=== PATIENT | male | born 1960 | race Caucasian/White ===

== ENCOUNTER → 2017-04-24 08:02 | Outpatient (CLI) | payer MEDICAID, SELFPAY ==
--- NOTE | 2017-04-24 08:05 | US_ITS ---
STUDY: SCROTUM ULTRASOUND REASON FOR EXAM: Male, 56 years old. Hydrocele. TECHNIQUE: Ultrasound evaluation of the scrotum was performed with color Doppler and static piña-scale imaging. COMPARISON: None. FINDINGS: RIGHT TESTICLE INTRATESTICULAR: There is a normal size of the right testicle. The right testicle measures 4.3 cm x 2.6 x 2.8 cm. There is a homogenous echotexture. There is normal arterial and normal venous vascularity. There is no demonstrated right testicular mass or cyst. EXTRATESTICULAR: The epididymis is normal in size. The epididymis head measures 1.3 cm x 0.7 cm x 0.8 cm. There is normal vascularity of the epididymis. There is no demonstrated epididymal cystic structure. There is a large hydrocele. There is no demonstrated varicocele. There is no demonstrated extratesticular mass or cyst. LEFT TESTICLE INTRATESTICULAR: There is a normal size of the left testicle. The left testicle measures 4.8 cm x 3.5 cm x 3.1 cm. There is a heterogeneous echotexture. There is normal arterial and normal venous vascularity. There is no demonstrated left testicular mass or cyst. EXTRATESTICULAR: The epididymis is normal in size. The epididymis head measures 1.8 cm x 1.5 signed by 1.5 cm. There is normal vascularity of the epididymis. There is no demonstrated epididymal cystic structure. There is a small hydrocele. There is no demonstrated varicocele. There is no demonstrated extratesticular mass or cyst. US/Testicular with Arterial Flow IMPRESSION: Large right hydrocele. Borderline enlargement of the left epididymis. Mild heterogeneous echotexture of the left testicle. Electronically Signed: Matthew Hartley MD at 15:14 EST Tel [phone], Service support ,
--- NOTE | 2017-04-24 08:05 | US_ITS ---
STUDY: RENAL ULTRASOUND - COMPLETE REASON FOR EXAM: Male, 56 years old. Gross hematuria. TECHNIQUE: Ultrasound evaluation of the kidneys was performed with real-time and static adan-scale imaging. COMPARISON: None. FINDINGS: RIGHT KIDNEY: Normal location of the right kidney, which is normal in size. The right kidney measures 9.2 cm x 5.2 cm x 4.8 cm. There is a normal cortex of the right kidney. The renal cortex measures 1.2 cm. There is a 3.4 cm x 3 cm x 3.4 cm lobulation along the lateral aspect of the right kidney. Correlation with a CT scan is recommended to rule out a neoplastic process. There are no right renal calculi. There is no right hydronephrosis. DISTAL RIGHT URETER: There is non-visualization of the distal right ureter. There is no demonstrated right ureterovesical junction calculus. There is a visualized right ureteral jet. LEFT KIDNEY: Normal location of the left kidney, which is normal in size. The left kidney measures 10.2 cm x 4.7 cm x 6.2 cm. There is a normal cortex of the left kidney. The renal cortex measures 1.8 cm. There is a 9 mm x 6 mm x 8 mm cyst in the midportion. There are no left renal calculi. There is no left hydronephrosis. DISTAL LEFT URETER: There is non-visualization of the distal left ureter. There is no demonstrated left ureterovesical junction calculus. There is no demonstrated left ureteral jet. BLADDER: The distended urinary bladder has a volume of 303 ml. Mild degree of bladder wall thickening measuring 4 mm. There is no demonstrated mass within the urinary bladder. There are no demonstrated bladder calculi. Is evidence of trabeculations along the posterior aspect of the bladder. US/Kidney and Bladder IMPRESSION: 3.4 cm x 3 cm x 3.4 cm lobulated mass along the lateral aspect of the right kidney. Correlation with the CT scans recommended. Bladder wall thickening with trabeculations at the base of the bladder. Electronically Signed: Matthew Hartley MD at 15:06 EST Tel [phone], Service support ,
== END ==
PROVIDERS: Family Provider Family Medicine; PCP Family Medicine; Visit Provider Nurse Practitioner Adult Health
DX: R31.0 Gross hematuria (principal); N43.3 Hydrocele, unspecified
CPT/HCPCS: 76770; 76870; 93976

== ENCOUNTER → 2017-05-07 07:35 | Outpatient (CLI) | payer MEDICAID, SELFPAY ==
--- NOTE | 2017-05-07 07:45 | CT_ITS ---
STUDY: CT ABDOMEN AND PELVIS WITH AND WITHOUT CONTRAST REASON FOR EXAM: Male, 56 years old. Right renal mass on ultrasound RADIATION DOSAGE (If Supplied By Facility): CTDIvol = ( 12.83 ) mGy, DLP = ( 1733.10 ) mGycm TECHNIQUE: Transaxial images were obtained from the dome of the diaphragm to the symphysis pubis without oral contrast. 100 ml of Isovue 300 contrast was administered. Sagittal and coronal images were reconstructed. Individualized dose optimization techniques were used for this CT. COMPARISON: Ultrasound dated 04/24/2017. FINDINGS: This study is limited by patient motion. The visualized lung bases are unremarkable. The visualized portions of the heart are within normal limits. The liver, spleen, pancreas and adrenal glands are within normal limits. There are no urinary calculi. There is no hydronephrosis. There is symmetric enhancement and excretion noted in the kidneys following contrast administration. There are no focal renal lesions. There is scarring in the right kidney which creates a lobulated contour and likely simulated a mass on ultrasound. There is no bowel obstruction or inflammation. There is marked constipation and fecal impaction noted in the colon and rectal vault. The urinary bladder is distended with a thickened, trabeculated wall. This may be due to bladder outlet obstruction. The prostate is enlarged, measuring 5.3 x 4.8 cm. There is no abdominal or pelvic free air, free fluid or lymphadenopathy. There are no calcified gallstones present. The aorta is normal in caliber. There are no destructive osseous lesions. CT/CT Abd/Pelvis W/WO Contrast IMPRESSION: No urinary calculi. No hydronephrosis. No renal masses. Scarring in the right kidney which creates a lobulated contour and likely simulated a mass on ultrasound. Distended urinary bladder with a thickened trabeculated wall. This may be due to bladder outlet obstruction. Enlarged prostate. Marked constipation and fecal impaction. Electronically Signed: Ad Palacio, at 18:29 EST Tel , Service support ,
== END ==
PROVIDERS: Family Provider Family Medicine; PCP Family Medicine; Visit Provider Urology
DX: N28.89 Other specified disorders of kidney and ureter (principal)
CPT/HCPCS: 74178; Q9967

== ENCOUNTER 2017-06-06 05:20 | Day surgery (SDC) | payer MEDICAID, SELFPAY ==
[2017-06-06] VITALS (7 sets, daily range): BP systolic 108–117; BP diastolic 44–83; PULSE 60–75; RESP 16–18; TEMP 36.4–37; O2SAT 92–100; BMI 21.6
[2017-06-06] MEDS: Bupivacaine Mpf 0.5% 30 ML VIAL (06:58)
[2017-06-06] MEDS: Cefazolin 2 GM in 0.9% Normal Saline 100 ML IV (07:11)
--- NOTE | 2017-06-06 07:15 | HYD_PTH ---
PATIENT: KIMMY OCHOA LOC: [facility] [place][id number] AGE/SX: 56/M ROOM: RE06/06/[address]: Dr. Prakash Ni MD : 1960 BED: DIS: 06/06/2017 SPEC #: [id number] RECD: 06/06/17 15:46 STATUS: ISIDRO CLARENCE #: [id number] NICKY: 06/06/17 07:[address]: Prakash Ni DEPT: SURGICAL PATHOLOGY RECD BY: Sandip Peoples ENTERED: 06/09/17 08:07 SP TYPE: HYDROCELE OTHR DR: Dr. Mani Balderas MD Tissues: HYDROCELE Procedures: Surgery Specimen Level II HEADER OPERATION: Hydrocelectomy PRE-OP DIAGNOSIS: Bilateral hydrocele TISSUE SUBMITTED: Bilateral hydrocele sacs MICROSCOPIC DIAGNOSIS Bilateral hydrocele sacs, hydrocelectomy: Fibrosis and mild chronic inflammation. Focal hyalinized nodule with associated dystrophic microcalcifications. AM:rg 4/10/18 MICROSCOPIC DESCRIPTION Slides are reviewed. GROSS DESCRIPTION Received in fixative is one container labeled with the patient's name and designated hydrocele sac, bilateral. The specimen consists of three variable sized pieces of alvarez, indurated tissue. The largest piece measures 11 x 4 x 1 cm and the two smaller pieces measure in aggregate 2.5 x 2 x 0.5 cm. No mass lesion is identified. Adjunct Professor [employer] sections are submitted in two cassettes as follows: 1 ? largest piece, 2 ? smaller pieces. / DICKSON:janeth 06/09/17 TC:5 CPT: 40095
--- NOTE | 2017-06-06 07:19 | PCM.DC.URO ---
Discharge Diet: Light diet - advance as tolerated Discharge Activity: Return to Normal Activity Call your doctor if your incision/area has: Continuous Slow Oozing, Sudden Increased Bleeding, Increased Pain/ Swelling, Increased Redness, Foul Smelling Discharge, Swelling at the incision site Instructions: Hydrocele Surgery (Hydrocelectomy) Additional Instructions: drain JPs if full. Allergies/Adverse Reactions: Allergies ciprofloxacin [From Cipro] Adverse Reaction (Verified 11/12/15 19:37) Hives codeine Adverse Reaction (Verified 11/12/15 19:37) Hives Penicillins Adverse Reaction (Verified 11/12/15 19:37) Hives sulfamethoxazole [From Bactrim] Adverse Reaction (Verified 11/12/15 19:37) Hives trimethoprim [From Bactrim] Adverse Reaction (Verified 11/12/15 19:37) Hives Medications to take at Discharge Acetaminophen [Tylenol] 650 mg PO Q4H PRN 05/26/17 Albuterol Aerosols [Ventolin Aerosols] 2.5 mg INHALATION Q6H PRN PRN 05/26/17 Aripiprazole [Abilify] 5 mg PO QHS 05/26/17 Benzocaine/Menthol [Cepacol Sore Throat Lozenge] 1 lozenge BUCCAL PRN PRN 05/26/17 Benztropine Mesylate 0.5 mg PO DAILY 05/26/17 Bisacodyl [Dulcolax] 10 mg RECTAL DAILY PRN PRN 05/26/17 Calcium Carbonate/Vitamin D3 [Calcium 600-Vit D3 200 Tablet] 1 each PO BID 05/26/17 Divalproex Sodium [Depakote Sprinkle] 500 mg PO BID 05/26/17 Docusate Sodium [Colace] 100 mg PO DAILY 05/26/17 Dulcolax 5 mg PO PRN PRN 05/26/17 Ferrous Sulfate [Iron] 325 mg PO BID 05/26/17 Fludrocortisone Acetate [Florinef] 0.1 mg PO DAILY@0800 05/26/17 Guaifenesin [Robitussin] 10 ml PO Q4H PRN PRN 05/26/17 Haloperidol [Haldol] 3 mg PO TID 05/26/17 [place] Carbonate [[place] Carbonate ER] 300 mg PO BID 05/26/17 Loperamide [Imodium] 2 mg PO Q8H PRN 05/26/17 Lorazepam [Ativan] 0.5 mg PO TID 05/26/17 Mag Hydrox/Al Hydrox/Simeth [Mylanta II] 30 ml PO Q4H PRN PRN 05/26/17 Magnesium Hydroxide [Milk Of Magnesia] 30 ml PO DAILY PRN PRN 05/26/17 Melatonin/Pyridoxine HCl (B6) [Melatonin 3 mg Tablet] 1 each PO QHS 05/26/17 Polyethylene Glycol 3350 [Miralax] 17 gm PO DAILY 05/26/17 Tamsulosin HCl [Flomax] 0.4 mg PO DAILY 05/26/17 Primary Care Physician: Mikhail Balderas [Primary Care Provider] - Please Follow Up With: Prakash Ni MD When: Appt Next at 3pm to d/c drains.
--- NOTE | 2017-06-06 08:08 | PCM.OPRPT ---
Report of Operation Date of Procedure: 06/06/17 Pre-Operative Diagnosis: Bilateral large hydroceles and gross hematuria Post-Operative Diagnosis: Same Surgery/Procedure Performed:: Bilateral hydrocelectomy and diagnostic cystoscopy Description of Surgical Findings:: 56-year-old male taken back to the operating room at the smooth induction of general anesthesia he was placed supine on the table the testicles were prepped and draped in usual sterile fashion made a midline incision in the midline raphae of the testicle scrotal area, infiltrated the skin with Marcaine. After making an incision dissected down to the right testicle which is quite large had a very large hydrocele a lot of scar tissue around the hydrocele this was dissected free and delivered completely I then opened up the hydrocele and large large amount of fluid was removed from the hydrocele sac the sac was then excised from the testicle circumferentially all the way around the sac was attached to the testicle at the junction of the epididymis all the way around. Testicle itself looked normal the epididymis is slightly engorged the hydrocele sac was excised and then oversew the edges all the way around with chromic stitches. Then placed the testicle back into the scrotal sac I then opened up the left testicle and had a large hydrocele again but not quite as big this was opened up hydrocele sac was excised did not oversew the edges here because of was not as big as a ridge as the right side. I then made a puncture and incision in the top part of the right hemiscrotum and placed a drain into the right side of the testicle circumferentially around the testicle drains are draining the excess fluid and then I made a puncture about the left hemiscrotum place another DONA drain around the left testicle region then inspected cauterize all bleeding obtained good hemostasis closed the incision with 3 oh chromics and the first layer to reapproximate the dartos layer and then closed the skin with 4-0 chromic. We then prepped and draped the penis in usual sterile fashion went into the bladder with a cystoscope the entire length of the urethra was normal he did have a traumatic hypospadias past the sphincter had the Rocio and then had a wide open channel from the veru into the bladder appeared to have had a prior transurethral resection of the prostate had an open channel from the verumontanum into the bladder neck inside the bladder some debris no stones or tumors are seen difficult to identify the left or right ureteral orifice because of the trabeculation within the bladder and debris but no stones tumors or diverticuli were seen had an open channel. I then drained the bladder patient anesthetic was reversed plan to see him back next week to remove the drains. Type of Anesthesia:: General - 200 Drains: JPs x2 - Admit VTE Documentation VTE Present on Admission: No VTE Mechan Device Prophylaxis: SCD's VTE Pharm Prophylaxis ordered?: No Reason prophylaxis not ordered:: Treatment Not Indicated
== END 2017-06-06 12:29 | disposition home or self-care (01) ==
LOC: SDC 05:21 → AC 05:22
PROVIDERS: Family Provider Family Medicine; PCP Family Medicine; Visit Provider Urology
PROC: (CPT 52000; principal; 2017-06-06 07:00)
PROC: 0TJB8ZZ Inspection of Bladder, Via Natural or Artificial Opening Endoscopic (ICD-10-PCS; CPT 52000; 2017-06-06 07:00)
DX: N43.1 Infected hydrocele (principal); R31.0 Gross hematuria; N40.1 Benign prostatic hyperplasia with lower urinary tract symptoms; R32 Unspecified urinary incontinence; I10 Essential (primary) hypertension; J44.9 Chronic obstructive pulmonary disease, unspecified; G40.909 Epilepsy, unspecified, not intractable, without status epilepticus; D64.9 Anemia, unspecified; K21.9 Gastro-esophageal reflux disease without esophagitis; F25.9 Schizoaffective disorder, unspecified; R13.10 Dysphagia, unspecified; E27.1 Primary adrenocortical insufficiency; I73.9 Peripheral vascular disease, unspecified; F32.9 Major depressive disorder, single episode, unspecified; F41.9 Anxiety disorder, unspecified; Z72.0 Tobacco use; J45.20 Mild intermittent asthma, uncomplicated; Z91.81 History of falling
CPT/HCPCS: 52000; 55041; 86850; 86900; 88302; J7120; J2405

== ENCOUNTER → 2017-11-05 10:14 | Outpatient (CLI) | payer MEDICAID, SELFPAY | PROVIDERS: Family Provider Family Medicine; PCP Family Medicine; Visit Provider Nurse Practitioner Adult Health | DX: N50.89 Other specified disorders of the male genital organs (principal) | CPT/HCPCS: 76870; 93976 ==

== ENCOUNTER → 2021-06-05 | Outpatient (REF) | payer SELFPAY | END | disposition home or self-care (01) | LOC: OLS.AHA 04:25 | PROVIDERS: PCP Family Medicine; Visit Provider Family Medicine | DX: E72.20 Disorder of urea cycle metabolism, unspecified (principal); F20.9 Schizophrenia, unspecified; R33.9 Retention of urine, unspecified; Z79.899 Other long term (current) drug therapy | CPT/HCPCS: 82140 ==

== ENCOUNTER → 2021-09-06 | Outpatient (REF) | payer SELFPAY | END | disposition home or self-care (01) | LOC: OLS.AHA 08:33 | PROVIDERS: PCP Family Medicine; Referring Provider Family Medicine; Visit Provider Family Medicine | DX: E72.20 Disorder of urea cycle metabolism, unspecified (principal); D64.9 Anemia, unspecified; R33.9 Retention of urine, unspecified; Z79.899 Other long term (current) drug therapy | CPT/HCPCS: 82140 ==

== ENCOUNTER 2023-05-10 01:41 | Inpatient (IN) | payer MEDICAID, SELFPAY ==
[2023-05-10] VITALS (13 sets, daily range): BP systolic 99–152; BP diastolic 59–116; PULSE 60–98; RESP 18–27; TEMP 36.3–37.2; O2SAT 84–96; BMI 24.5; BMI 24.6
--- NOTE | 2023-05-10 01:55 | EKG12_ITS ---
Test Reason : SOB Blood Pressure : / mmHG Vent. Rate : 060 BPM Atrial Rate : 060 BPM P-R Int : 124 ms QRS Dur : 094 ms QT Int : 422 ms P-R-T Axes : 031 086 077 degrees QTc Int : 422 ms Normal sinus rhythm T wave abnormality, consider anterolateral ischemia Abnormal ECG Confirmed by Harsh Mckinney ([id number]), market editor YEIMY GIMENEZ ([id number]) on 05/13/2023 7:13:10 AM Referred By: Confirmed By:Harsh Mckinney
--- NOTE | 2023-05-10 01:55 | RAD_ITS ---
INDICATION: Cough, fever and hypoxia EXAMINATION: Frontal view of the chest COMPARISON: Chest x-ray November 12, 2015. FINDINGS: Frontal view of the chest was obtained. The cardiac silhouette is not enlarged. Opacities in the lower lobes bilaterally. No pneumothorax. RAD/Chest 1 View (Portable) IMPRESSION: Opacities in the lower lobes bilaterally may represent atelectasis, infection and/or aspiration. Electronically Signed: Darren Cotto MD at 4:24 EST ,
--- NOTE | 2023-05-10 02:03 | EDS_ITS ---
HPI History of Present Illness Chief Complaint: Shortness of Breath Detail of Chief Complaint: Fever, shortness of breath and hypoxia Informant: EMS and SNF Onset/Context/Timing Onset: - (Uncertain) Context: - (Unable to determine) Timing: Continuous Current Severity: Patient is using accessory muscles. Worsened by: - (Unable to determine) Relieved by: - (Nothing per senior living staff) Associated Symptoms cough and rhinorrhea Chest Pain: Positive for - (Unknown) Narrative Narrative: Patient is 62-year-old male who resides at nursing facility. He has history of COPD, schizophrenia, iron deficiency anemia who presents because of trouble breathing. He had a low pulse ox with a documented temperature of 100.9. Reportedly had a chest x-ray recently that was read as negative residence from that facility that he been seen in emergency room have been positive for influenza type B. PE Risk Factors: Positive for - (Unable to determine) Prior similar symptoms: No Recent Illness/Hospitalization: No PFSH PFSH Medical History (Updated 05/10/23 @ 03:[address] Jose Olvera MD) Adrenal insufficiency Anxiety and depression Asthma BPH (benign prostatic hyperplasia) Chronic anemia COPD (chronic obstructive pulmonary disease) Dementia Dysphagia GERD (gastroesophageal reflux disease) History of anoxic brain injury HLD (hyperlipidemia) HTN (hypertension) Hydrocele IBS (irritable bowel syndrome) Mood disorder Polyarthropathy Schizoaffective disorder Schizophrenia Seizure disorder Home Medications Dulcolax 5 mg PO PRN PRN Constipation 05/26/17 [History Last Taken Unknown] acetaminophen 325 mg tablet (Tylenol) 650 mg PO Q4H PRN Headache 05/26/17 [History Last Taken Unknown] albuterol sulfate 2.5 mg/3 mL (0.083 %) solution for nebulization 2.5 mg inhalation Q6H PRN PRN Sob &/Or Wheezing 05/26/17 [History Last Taken Unknown] aluminum-mag hydroxide-simethicone 400 mg-400 mg-40 mg/5 mL oral susp (Mag-Al Plus Extra Strength) 30 ml PO Q4H PRN PRN Indigestion 05/26/17 [History Last Taken Unknown] aripiprazole 5 mg tablet 5 mg PO QHS 05/26/17 [History Last Taken 06/05/17 20:45 1] benzocaine 15 mg-menthol 3.6 mg lozenges (Cepacol Sore Throat (benzocaine- menthol)) 1 blaire buccal PRN PRN Sore Throat 05/26/17 [History Last Taken Unknown] benztropine 1 mg tablet 0.5 mg PO DAILY 05/26/17 [History Last Taken Unknown] bisacodyl 10 mg rectal suppository 10 mg RECTAL DAILY PRN PRN Constipation 05/26/17 [History Last Taken Unknown] calcium carbonate 600 mg-vitamin D3 5 mcg (200 unit) tablet (Calcium 600 + D(3)) 1 ea PO BID 05/26/17 [History Last Taken 06/05/17 20:45 1] divalproex 125 mg capsule,delayed release sprinkle (Depakote Sprinkles) 500 mg PO BID 05/26/17 [History Last Taken 06/05/17 20:45 1] docusate sodium 100 mg capsule (DOK) 100 mg PO DAILY 05/26/17 [History Last Taken Unknown] ferrous sulfate 325 mg (65 mg iron) tablet (Iron (ferrous sulfate)) 325 mg PO BID 05/26/17 [History Last Taken Unknown] fludrocortisone 0.1 mg tablet 0.1 mg PO DAILY@0800 05/26/17 [History Last Taken Unknown] guaifenesin 100 mg/5 mL oral liquid 10 ml PO Q4H PRN PRN Cough 05/26/17 [History Last Taken Unknown] haloperidol 1 mg tablet 3 mg PO TID 05/26/17 [History Last Taken 06/05/17 20:45 1] lithium carbonate 300 mg tablet,extended release 300 mg PO BID 05/26/17 [History Last Taken 06/05/17 20:45 1] loperamide 2 mg capsule 2 mg PO Q8H PRN Diarrhea 05/26/17 [History Last Taken Unknown] lorazepam 0.5 mg tablet 0.5 mg PO TID 05/26/17 [History Last Taken 06/05/17 20:45 1] magnesium hydroxide 400 mg/5 mL oral suspension 30 ml PO DAILY PRN PRN Constipation 05/26/17 [History Last Taken Unknown] melatonin-pyridoxine HCl (vitamin B6) 3 mg-10 mg tablet 1 ea PO QHS 05/26/17 [History Last Taken Unknown] polyethylene glycol 3350 17 gram oral powder packet 17 g PO DAILY 05/26/17 [History Last Taken Unknown] tamsulosin 0.4 mg capsule (Flomax) 0.4 mg PO DAILY 05/26/17 [History Last Taken Unknown] doxycycline monohydrate 100 mg capsule 100 mg PO BID #20 caps 06/06/17 [Rx Last Taken Unknown] oxycodone-acetaminophen 5 mg-325 mg tablet 1 - 2 tab PO Q4H PRN PRN Pain 7 days #14 tabs 06/06/17 [Rx Last Taken Unknown] haloperidol lactate 5 mg/mL injection solution 5 mg IM Q3H PRN agitation 05/10/23 [History Last Taken Unknown] lorazepam 0.5 mg tablet (Ativan) 0.5 mg PO .q6hr PRN anxiety 05/10/23 [History Last Taken Unknown] Allergy/AdvReac Type Severity Reaction Status Date / Time ciprofloxacin [From Cipro] AdvReac Hives Verified 11/12/15 19:37 codeine AdvReac Hives Verified 11/12/15 19:37 Penicillins AdvReac Hives Verified 11/12/15 19:37 sulfamethoxazole AdvReac Hives Verified 11/12/15 19:37 [From Bactrim] trimethoprim [From Bactrim] AdvReac Hives Verified 11/12/15 19:37 Social History (Updated 05/10/23 @ 03:[address] Roxanne More MD) household members: none housing: senior living Smoking Status: Current every day smoker tobacco type: cigarettes alcohol intake: never substance use type: does not use ROS ROS ED Review of Systems ROS Unobtainable: due to mental condition and due to mental status EXAM Physical Exam Const Vital Signs: 05/10/23 01:44 05/10/23 01:48 05/10/23 02:09 Temperature 97.4 F L Temperature Source Temporal Pulse Rate 65 Respiratory Rate 27 H Respiratory Effort Respiratory Depth Respiratory Pattern Blood Pressure 108/59 L Blood Pressure Mean 75 Pulse Ox 84 94 Oxygen Delivery Method Room Air Nasal Cannula Room Air Oxygen Flow Rate (L/min) 4 05/10/23 02:10 05/10/23 02:12 05/10/23 02:16 Temperature Temperature Source Pulse Rate 60 Respiratory Rate 24 H Respiratory Effort Short of Breath Labored Pursed Lip Respiratory Depth Shallow Respiratory Pattern Tachypnea Tachypnea Blood Pressure Blood Pressure Mean Pulse Ox Oxygen Delivery Method Nasal Cannula Nasal Cannula Oxygen Flow Rate (L/min) 4 4 Positive well developed General Appearance ED: well developed and pallor; Negative for NAD HEENT Reports dry mucous membranes HEENT Narrative: Ears normal. Nares reveal mild congestion. Posterior pharynx unremarkable. atraumatic Mouth ED: Yes dry mucous membranes Mouth: dry mucous membranes Eyes PERRL and EOMs intact bilaterally General Eye ED: Negative for pale conjunctiva or scleral icterus Neck no lymphadenopathy, supple, no meningeal signs and no JVD Resp No normal respiratory effort and No clear to auscultation bilaterally Resp Narrative: Patient does have use of accessory muscles and mild intercostal retractions. Auscultation: rales bilateral base, wheezes expiratory wheezes and throughout and diminished lung sounds Cardio regular rhythm, S1 normal heart sound, S2 normal heart sound and no murmurs Rate: tachycardic GI non-tender, non-distended and no masses Auscultation: normoactive bowel sounds Palpation: soft Back/Spine no CVA tenderness Extremity Extremity Narrative: Fingers are tobacco staining. Question of mild clubbing. There is no acral cyanosis. He is presently on oxygen at 4 L. Neuro CN's II-XII intact bilaterally Neuro Narrative: Unable to determine patient's orientation. He does move all extremities. [place] Coma Scale: document GCS findings Spontaneous Obeys Commands Confused 14 Sensorium / Orientation: Negative for alert Skin no wounds General Skin Exam: pallor; Negative for jaundice MDM MDM MDM Narrative Medical decision making narrative: Unable to obtain history. Paperwork that accompanied him indicates he is DNR comfort care. Differential is COPD exacerbation due to viral illness versus bacterial. Will obtain chest x-ray to rule out pneumonia. CBC to assess white count differential and rule out anemia. Comprehensive metabolic panel to assess for endorgan dysfunction. Rapid COVID, RSV and influenza since other residents are positive for influenza. History & Record Review Additional record(s) reviewed:: Prior ED visit and Prior labs Lab Data Attestation: I reviewed the patient's lab results. Lab results narrative: Patient is neutropenic and anemic. Most recent blood work is 2015. He was neutropenic at that time as well. Platelet count is low. He has pancytopenia. Electrolyte panel is remarkable for BUN 21 creatinine 1.35. Prior creatinine was 0.9. Albumin is slightly diminished at 3.1. The neutropenia could be due to a viral infection i.e. COVID. Labs: Laboratory Results - last 24 hr 05/10/23 05/10/23 01:49 02:06 WBC 3.0 L RBC 3.30 L Hgb 9.9 L Hct 31.1 L MCV 94.2 H MCH 30.0 MCHC 31.8 L RDW Std Deviation 43.1 RDW Coeff of Eyal 12.5 Plt Count 88 L MPV 10.2 Immature Gran % (Auto) 0.300 Neut % (Auto) 65.0 Lymph % (Auto) 24.7 [place] % (Auto) 9.7 Eos % (Auto) 0.0 Baso % (Auto) 0.3 Absolute Neuts (auto) 2.0 Absolute Lymphs (auto) 0.74 L Nucleated RBC % 0 Sodium 139 Potassium 4.1 Chloride 107 Carbon Dioxide 29.0 Anion Gap 3 L BUN 21 H Creatinine 1.35 H Est GFR (MDRD) Af Amer 69 Est GFR (MDRD) Non-Af 57 L BUN/Creatinine Ratio 15.6 Glucose 99 Lactic Acid 0.6 Calcium 9.2 Total Bilirubin 0.30 AST 19 ALT 18 Alkaline Phosphatase 53 Total Protein 6.2 L Albumin 3.1 L Globulin 3.1 Albumin/Globulin Ratio 1.0 Radiography Chest X-Ray - ED: 1 View and Read by ED Physician (Cardiac size is normal. There is increased interstitial markings right lower lobe. Mediastinum is normal. Osseous structures are unremarkable. There is no recent comparison. There is independently reviewed interpreted by me at 0310.) EKG Initial EKG: Attestation: I personally reviewed and interpreted this EKG as follows: Interpretation: Sinus Rhythm (Rate is 60. Parables 124 ms. Cures duration 94 ms. QT duration 422 ms. There is flipped T waves anterior leads. There is no old for comparison.) Treatment and Re-Evaluation :: Since patient is hypoxic and tachypneic will require admission. Rapid antigen was positive for type A. Tamiflu was ordered. Discharge Plan Triage Chief Complaint: Shortness of Breath ED Provider: Jose Olvera Dx/Rx/DC Orders Clinical Impression: Right lower lobe pulmonary infiltrate, Acute hypoxic respiratory failure, Type A influenza, Acute bronchospasm, History of schizophrenia Prescriptions: No Action albuterol sulfate 2.5 MG/3 ML solution for nebulization 2.5 mg inhalation Q6H PRN PRN (Reason: Sob &/Or Wheezing) calcium carbonate-vitamin D3 [Calcium 600 + D(3)] 1 EACH tablet 1 ea PO BID lorazepam 0.5 MG tablet 0.5 mg PO TID bisacodyl 10 MG suppository 10 mg RECTAL DAILY PRN PRN (Reason: Constipation) benztropine 1 MG tablet 0.5 mg PO DAILY docusate sodium [DOK] 100 MG capsule 100 mg PO DAILY divalproex [Depakote Sprinkles] 125 MG capsule, delayed rel sprinkle 500 mg PO BID aripiprazole 5 MG tablet 5 mg PO QHS Cepacol Sore Throat (lisseth-men) 1 EACH lozenge 1 blaire buccal PRN PRN (Reason: Sore Throat) Dulcolax 5 mg PO PRN PRN (Reason: Constipation) acetaminophen [Tylenol] 325 MG tablet 650 mg PO Q4H PRN (Reason: Headache) loperamide 2 MG capsule 2 mg PO Q8H PRN (Reason: Diarrhea) polyethylene glycol 3350 17 GM powder in packet 17 g PO DAILY lithium carbonate 300 MG tablet extended release 300 mg PO BID haloperidol 1 MG tablet 3 mg PO TID guaifenesin 10 ML liquid 10 ml PO Q4H PRN PRN (Reason: Cough) magnesium hydroxide 30 ML suspension 30 ml PO DAILY PRN PRN (Reason: Constipation) tamsulosin [Flomax] 0.4 MG capsule 0.4 mg PO DAILY ferrous sulfate [Iron (ferrous sulfate)] 325 MG tablet 325 mg PO BID fludrocortisone 0.1 MG tablet 0.1 mg PO DAILY@0800 alum-mag hydroxide-simeth [Mag-Al Plus Extra Strength] 30 ML suspension 30 ml PO Q4H PRN PRN (Reason: Indigestion) melatonin-pyridoxine HCl (B6) 1 EACH tablet 1 ea PO QHS oxycodone-acetaminophen 1 TABLET tablet 1 - 2 tab PO Q4H PRN PRN (Reason: Pain) 7 Days Qty: 14 0RF doxycycline monohydrate 100 MG capsule 100 mg PO BID Qty: 20 0RF lorazepam [Ativan] 0.5 mg tablet 0.5 mg PO .q6hr PRN (Reason: anxiety) haloperidol lactate 5 mg/mL solution 5 mg IM Q3H PRN (Reason: agitation) Primary Care Provider: Mani Balderas Referrals: Sherrie,Mani, MD [Primary Care Provider] - Disposition Disposition: Acute Care Hospital [facility]
[2023-05-10 02:11] LABS: Absolute Lymphocyte Count 0.74 X10^3/uL (0.83-4.51); Basophil# 0.01 X10^3/uL; Basophil% 0.3 % (0-1); Hematocrit 31.1 % (40-54); Hemoglobin 9.9 g/dL (13.0-16.5); Lymphocyte # 0.74 X10^3/ul (0.83-4.51); Lymphocyte % 24.7 % (19-41); Mean Corp Hgb Conc 31.8 g/dL (32-36); Mean Corpuscular Volume 94.2 fL (80-94); Mean Platelet Vol. 10.2 fl (6.2-12.0); Monocyte# 0.29 X10^3/uL; Monocyte% 9.7 % (0-10); NRBC Flagged by Analyzer 0 % (0-5); Neutrophil # 1.95 X10^3/uL (2.7-7.7); POSITIVE COUNT YES; Platelet Count 88 K/mm3 (150-450); RBC Distribution Width CV 12.5 % (11.6-14.6); RBC Distribution Width SD 43.1 fl (35.1-43.9)
[2023-05-10] MEDS: Ipratropium/Albuterol Sulfate 3 ML AMPUL.NEB INHALATION (02:13)
[2023-05-10 02:16] LABS: Differential Indicated SCAN CRITERIA MET
[2023-05-10] MEDS: MethylPREDNISolone 125 MG/2 ML Vial IV (02:24)
[2023-05-10 02:27] LABS: AST(SGOT) 19 U/L (15-37); Alanine Aminotransfer ALT/SGPT 18 U/L (16-61); Albumin, Serum 3.1 g/dL (3.2-5.0); Alkaline Phosphatase 53 U/L (45-117); Anion Gap 3 (5-15); BUN 21 mg/dL (7-18); BUN/Creat Ratio 15.6 RATIO (10-20); Calcium,Total 9.2 mg/dL (8.5-10.1); Chloride 107 mmol/L (98-107); Creatinine, Serum 1.35 mg/dL (0.70-1.30); EST Glomerular Filtration Rate 57 mL/min (>60); Est Glom Filt Rate - Afr Amer 69 mL/min (>60); Globulin 3.1 g/dL (2.2-4.2); Glucose 99 mg/dL (74-106); Potassium 4.1 mmol/L (3.5-5.1); Protein, Total 6.2 g/dL (6.4-8.2); Sodium Level 139 mmol/L (136-145)
[2023-05-10] MEDS: Albuterol 2.5 MG/3 ML VIAL.NEB. INHALATION ×3 (02:30)
[2023-05-10 03:01] LABS: Lactic Acid 0.6 mmol/L (0.4-1.9)
--- NOTE | 2023-05-10 03:18 | HP.PCM.HOS_ITS ---
HPI - General General Date of Admission: 05/10/23 Date of Service: 05/10/23 Chief Complaint: Dyspnea, hypoxia, increased work of breathing, fever. HPI Narrative The patient is a 62 y/o M w/ PMHx: Tobacco use, Dementia unclear type with uncle ar behavioral disturbance history, IBS, Polyarthropathy, Hx Obstructive uropathy/BPH, Chronic oral dysphagia, Chronic anemia/iron deficiency anemia, Chronic Pancytopenia, Schizophrenia/Schizoaffective disorder/Anxiety and Depression/Mood disorder, COPD/Asthma, Seizure disorder, Adrenal insufficiency, Hx Anoxic brain injury, GERD, HTN, HLD who presents to the [facility] ED on 05/10/23 with history of onset over the last 24 hours fever, dyspnea, tachypnea with hypoxia noted at longterm facility with accessory muscle usage and temperature documented at facility 100.9 with recent reported chest x-ray that had been unremarkable and negative influenza/COVID/RSV testing also but given ongoing symptoms prompted referral to ED for evaluation. In the emergency room patient is alert and awake although evidence of mild respiratory distress but does not verbally communicate which suspect is his baseline. Workup in the ED included T97.4, heart rate 65, BP 108/59, respiratory rate 27, 84% on room air initially with improvement to 94% on 4 L nasal cannula, CBC with WBC 3.0, hemoglobin 9.9, MCV 94.2, platelets 88 with lymphopenia, CMP with BUN/creatinine 21/1.35, GFR 57, hepatic profile otherwise not marked appearing, lactic acid 0.6, blood culture x 2 pending per ED, rapid SARS COVID/influenza/RSV PCR with Influenza A, chest x-ray with increased interstitial markings right lower lobe with no co mparison available pending radiology read, EKG with sinus rhythm with flipped T waves anteriorly with no old EKG for comparison. In the ED patient ministered DuoNeb therapy, Tamiflu 75 mg p.o. x 1 as well as Solu-Medrol 125 mg IV x 1. [facility] Medical History (Updated 05/10/23 @ 03:[address] Jose Olvera MD) Adrenal insufficiency Anxiety and depression Asthma BPH (benign prostatic hyperplasia) Chronic anemia COPD (chronic obstructive pulmonary disease) Dementia Dysphagia GERD (gastroesophageal reflux disease) History of anoxic brain injury HLD (hyperlipidemia) HTN (hypertension) Hydrocele IBS (irritable bowel syndrome) Mood disorder Polyarthropathy Schizoaffective disorder Schizophrenia Seizure disorder Home Medications Dulcolax 5 mg PO PRN PRN Constipation 05/26/17 [History Last Taken Unknown] acetaminophen 325 mg tablet (Tylenol) 650 mg PO Q4H PRN Headache 05/26/17 [History Last Taken Unknown] albuterol sulfate 2.5 mg/3 mL (0.083 %) solution for nebulization 2.5 mg inhalation Q6H PRN PRN Sob &/Or Wheezing 05/26/17 [History Last Taken Unknown] aluminum-mag hydroxide-simethicone 400 mg-400 mg-40 mg/5 mL oral susp (Mag-Al Plus Extra Strength) 30 ml PO Q4H PRN PRN Indigestion 05/26/17 [History Last Taken Unknown] aripiprazole 5 mg tablet 5 mg PO QHS 05/26/17 [History Last Taken 06/05/17 20:45 1] benzocaine 15 mg-menthol 3.6 mg lozenges (Cepacol Sore Throat (benzocaine- menthol)) 1 blaire buccal PRN PRN Sore Throat 05/26/17 [History Last Taken Unknown] benztropine 1 mg tablet 0.5 mg PO DAILY 05/26/17 [History Last Taken Unknown] bisacodyl 10 mg rectal suppository 10 mg RECTAL DAILY PRN PRN Constipation 05/26/17 [History Last Taken Unknown] calcium carbonate 600 mg-vitamin D3 5 mcg (200 unit) tablet (Calcium 600 + D(3)) 1 ea PO BID 05/26/17 [History Last Taken 06/05/17 20:45 1] divalproex 125 mg capsule,delayed release sprinkle (Depakote Sprinkles) 500 mg PO BID 05/26/17 [History Last Taken 06/05/17 20:45 1] docusate sodium 100 mg capsule (DOK) 100 mg PO DAILY 05/26/17 [History Last Taken Unknown] ferrous sulfate 325 mg (65 mg iron) tablet (Iron (ferrous sulfate)) 325 mg PO BID 05/26/17 [History Last Taken Unknown] fludrocortisone 0.1 mg tablet 0.1 mg PO DAILY@0800 05/26/17 [History Last Taken Unknown] guaifenesin 100 mg/5 mL oral liquid 10 ml PO Q4H PRN PRN Cough 05/26/17 [History Last Taken Unknown] haloperidol 1 mg tablet 3 mg PO TID 05/26/17 [History Last Taken 06/05/17 20:45 1] lithium carbonate 300 mg tablet,extended release 300 mg PO BID 05/26/17 [History Last Taken 06/05/17 20:45 1] loperamide 2 mg capsule 2 mg PO Q8H PRN Diarrhea 05/26/17 [History Last Taken Unknown] lorazepam 0.5 mg tablet 0.5 mg PO TID 05/26/17 [History Last Taken 06/05/17 20:45 1] magnesium hydroxide 400 mg/5 mL oral suspension 30 ml PO DAILY PRN PRN Constipation 05/26/17 [History Last Taken Unknown] melatonin-pyridoxine HCl (vitamin B6) 3 mg-10 mg tablet 1 ea PO QHS 05/26/17 [History Last Taken Unknown] polyethylene glycol 3350 17 gram oral powder packet 17 g PO DAILY 05/26/17 [History Last Taken Unknown] tamsulosin 0.4 mg capsule (Flomax) 0.4 mg PO DAILY 05/26/17 [History Last Taken Unknown] doxycycline monohydrate 100 mg capsule 100 mg PO BID #20 caps 06/06/17 [Rx Last Taken Unknown] oxycodone-acetaminophen 5 mg-325 mg tablet 1 - 2 tab PO Q4H PRN PRN Pain 7 days #14 tabs 06/06/17 [Rx Last Taken Unknown] haloperidol lactate 5 mg/mL injection solution 5 mg IM Q3H PRN agitation 05/10/23 [History Last Taken Unknown] lorazepam 0.5 mg tablet (Ativan) 0.5 mg PO .q6hr PRN anxiety 05/10/23 [History Last Taken Unknown] Allergy/AdvReac Type Severity Reaction Status Date / Time ciprofloxacin [From Cipro] AdvReac Hives Verified 11/12/15 19:37 codeine AdvReac Hives Verified 11/12/15 19:37 Penicillins AdvReac Hives Verified 11/12/15 19:37 sulfamethoxazole AdvReac Hives Verified 11/12/15 19:37 [From Bactrim] trimethoprim [From Bactrim] AdvReac Hives Verified 11/12/15 19:37 Social History (Updated 03/09/24 @ 03:[address] Roxanne More MD) household members: none housing: care home Smoking Status: Current every day smoker tobacco type: cigarettes alcohol intake: never substance use type: does not use ROS Review of Systems ROS Unobtainable: due to mental status Vital Signs Vital Signs Vital Signs: 05/10/23 01:44 05/10/23 01:48 05/10/23 02:09 Temperature 97.4 F L Temperature Source Temporal Pulse Rate 65 Respiratory Rate 27 H Respiratory Effort Respiratory Depth Respiratory Pattern Blood Pressure 108/59 L Blood Pressure Mean 75 Pulse Ox 84 94 Oxygen Delivery Method Room Air Nasal Cannula Room Air Oxygen Flow Rate (L/min) 4 05/10/23 02:10 05/10/23 02:12 05/10/23 02:16 Temperature Temperature Source Pulse Rate 60 Respiratory Rate 24 H Respiratory Effort Short of Breath Labored Pursed Lip Respiratory Depth Shallow Respiratory Pattern Tachypnea Tachypnea Blood Pressure Blood Pressure Mean Pulse Ox Oxygen Delivery Method Nasal Cannula Nasal Cannula Oxygen Flow Rate (L/min) 4 4 Physical Exam Narrative Physical Examination: General: Awake, appears alert but nonverbal, unable to answer any orientation questions, suspect this is at baseline, remains primarily cooperative but not able to follow most commands but suspect this is chronic, seated upright in the ED bed, fatigued and ill-appearing, ongoing increased respiratory rate with some accessory muscle usage noted. Skin: Normal color, normal turgor, no icterus, no cyanosis except for occasional staged ecchymoses, abrasion. HEENT: AT/NC, EOMI, PERRLA, dry MM, evident congestion, no carotid bruits or JVD noted. Lungs: Significantly diminished, tight, increased respiratory rate with accessory muscle usage evident, mild distress, rales noted, currently no wheezing but ED physician had noted significant wheezing prior although patient is status post aerosol treatments thus certainly could have improved. Heart: Currently regular rate and rhythm; no gallop, rub audible. Abdomen: Soft, NTTP, ND, mildly hyperactive BS, no appreciated HSM. Extremities: No cyanosis, clubbing, or edema, somewhat difficult evaluation as patient is tucking his legs under him and suspect this is a chronic positioning of his. Neurological: Awake, appears alert but nonverbal, unable to answer any orientation questions, suspect this is at baseline, remains primarily cooperative but not able to follow most commands but suspect this is chronic, seated upright in the ED bed, fatigued and ill-appearing, unclear exact baseline cognitive status but suspect he is nonverbal at baseline, pupils equally reactive to light and accommodation, cranial nerves grossly normal, moving all 4 extremities, strength severely globally decreased. Psychiatric: Affect appears flat, no acute evidence of depressive or anxiety feelings but does have underlying significant psychiatric history. Results Lab / Micro Data 05/10/23 01:49 05/10/23 01:49 Labs: Laboratory Results - last 24 hr 05/10/23 01:49: WBC 3.0 L, RBC 3.30 L, Hgb 9.9 L, Hct 31.1 L, MCV 94.2 H, MCH 30.0, MCHC 31.8 L, RDW Std Deviation 43.1, RDW Coeff of Eyal 12.5, Plt Count 88 L , MPV 10.2, Immature Gran % (Auto) 0.300, Neut % (Auto) 65.0, Lymph % (Auto) 24.7, [place] % (Auto) 9.7, Eos % (Auto) 0.0, Baso % (Auto) 0.3, Absolute Neuts (auto) 2.0, Absolute Lymphs (auto) 0.74 L, Nucleated RBC % 0, Sodium 139, Potassium 4.1, Chloride 107, Carbon Dioxide 29.0, Anion Gap 3 L, BUN 21 H, Creatinine 1.35 H, Est GFR (MDRD) Af Amer 69, Est GFR (MDRD) Non-Af 57 L, BUN/Creatinine Ratio 15.6, Glucose 99, Calcium 9.2, Total Bilirubin 0.30, AST 19, ALT 18, Alkaline Phosphatase 53, Total Protein 6.2 L, Albumin 3.1 L, Globulin 3.1, Albumin/Globulin Ratio 1.0 05/10/23 02:06: Lactic Acid 0.6 Assessment & Plan Assessment/Plan (1) Type A influenza: PLAN: Plan The patient is a 62 y/o M w/ PMHx: Tobacco use, Dementia unclear type with unclear behavioral disturbance history, IBS, Polyarthropathy, Hx Obstructive uropathy/BPH, Chronic oral dysphagia, Chronic anemia/iron deficiency anemia, Chronic Pancytopenia, Schizophrenia/Schizoaffective disorder/Anxiety and Depression/Mood disorder, COPD/Asthma, Seizure disorder, Adrenal insufficiency, Hx Anoxic brain injury, GERD, HTN, HLD who presents to the [facility] ED on 05/10/23 with history of onset over the last 24 hours fever, dyspnea, tachypnea with hypoxia noted at longterm facility with accessory muscle usage and temperature documented at facility 100.9 with recent reported chest x-ray that had been unremarkable and negative influenza/COVID/RSV testing also but given ongoing symptoms prompted referral to ED for evaluation. #1. Acute Hypoxia with respiratory distress component (increased RR, accessory muscle usage, hypoxia) secondary to Acute on Chronic COPD/Asthma exacerbation secondary to Acute Influenza A Viral Syndrome with Questionable RLL infiltrate (pending radiology read): Will admit to [facility] given DNR-CC status, maintain on oxygen with wean as tolerated to room air, continue ATC budesonide, PRN albuterol, IV methylprednisolone, continue tamiflu regimen, HOB, IS parameters, will obtain sputum Cx, procalcitonin, will hold on immediately abx therapy as suspect primarily viral but low threshold to add if appropriate and concern superimposed bacterial pneumonia. #2. Adrenal insufficiency: Given acute presentation #1 will double dose of patient fludrocortisone temporarily and once clinically improving transition back to baseline dosing. If patient significantly worsens may consider IV hydrocortisone stress dosing but again patient is DNR CC status thus this may be too aggressive a component. #3. Possible acute renal insufficiency on CKD stage II but unclear as no recent trending available versus progressed renal disease to CKD stage III unclear subtype: Admission BUN/Cr 21/1.35, GFR 57, baseline renal function noted prior 0.96 11/12/2015 with GFR at that time in the 80s, will continue treatment as noted with judicious hydration, repeat BMP in AM to further elucidate current baseline renal function/status. #4. Dementia unclear type with unclear behavioral disturbance history: Complicates presentation especially given underlying significant concurrent psychiatric history, will maintain on fall and aspiration precautions, PT/OT/ST/case management consulted for discharge planning. #5. Chronic oral dysphagia: Clarifying diet at facility, in the interim we will also consult speech therapy for assessment, maintain on aspiration precautions. #6. Chronic anemia/iron deficiency anemia: Admission hemoglobin 9.9, MCV 94.2, most recent previous hemoglobin remotely noted 11/2015 10.2, will continue to trend CBC, continue oral iron supplementation. #7. Chronic pancytopenia: Admission CBC with WC 3.0, hemoglobin 9.9, platelet 88, review of previous CBC with similar decrease, unclear exact etiology, will continue to trend CBC. #8. Schizophrenia/Schizoaffective disorder/Anxiety and Depression/Mood disorder: As long as patient is not lethargic given significant underlying psychiatric history will continue psychiatric regimen however if necessary will hold sedated regimen. regimen includes aripiprazole, benztropine, Depakote, Haldol, lithium, Ativan. #9. History anoxic brain injury: Complicates presentation, patient pretty much nonverbal in the ED, do suspect likely baseline but unclear what component is from brain injury and what is from his underlying psychiatric issues. #10. Hypertension: Chart reported history, BP currently normal range, currently list does not appear to have any antihypertensive regimen, clarifying, in the interim we will have as needed IV hydralazine. #11. Hyperlipidemia: Noted in the chart history, not on regimen, defer. #12. Seizure disorder: We will continue patient home Depakote regimen. #13. Tobacco Abuse: Encouraged cessation, inpatient consultation per RT, NR if desired. #14. BPH with history of obstructive uropathy: We will continue patient on Fl omax regimen. #15. IBS with chronic constipation component: We will continue patient home bowel regimen. #16. DVT prophylaxis: Will defer given DNRCC status, pancytopenia and given significant underlying psychiatric history noted in the ED to primarily be talking his feet under him would certainly potentially cause patient distress to use SCDs. #17. CODE STATUS: Per facility paperwork review patient is a DNR CC status. Charges/Coding Visit Charges Inpatient E&M: 42763 Init Hosp L3
[2023-05-10 03:54] LABS: Troponin-I HS 9 pg/mL (3.0-78.0)
[2023-05-10 03:55] LABS: Platelet Estimate SLT DEC (ADEQ)
[2023-05-10] MEDS: Oseltamivir Phosphate 75 MG Capsule PO ×3 (04:46→20:15)
[2023-05-10] MEDS: Haloperidol 1 MG Tablet 3 MG PO ×3 (05:49→20:14)
[2023-05-10] MEDS: 0.9% Normal Saline (1000mL) 1,000 ML 100 ML IV (05:50)
[2023-05-10] MEDS: LORazepam 1 MG Tablet PO ×3 (05:57→20:14)
[2023-05-10 06:36] LABS: Absolute Neutrophil Count 1.7 X10^3/uL (2.0-7.7); Hemoglobin 10.3 g/dL (13.0-16.5); Lymphocyte % 18.4 % (19-41); Mean Corp Hgb Conc 32.2 g/dL (32-36); Mean Corpuscular Volume 93.3 fL (80-94); Mean Platelet Vol. 9.7 fl (6.2-12.0); Monocyte# 0.08 X10^3/uL; Monocyte% 3.7 % (0-10); NRBC Flagged by Analyzer 0 % (0-5); Neutrophil # 1.68 X10^3/uL (2.7-7.7); Neutrophil % 77.4 % (47-70); POSITIVE COUNT YES; POSITIVE DIFFERENTIAL YES; Platelet Count 83 K/mm3 (150-450); RBC Distribution Width CV 12.4 % (11.6-14.6); RBC Distribution Width SD 42.6 fl (35.1-43.9); Red Blood Count 3.43 M/mm3 (4.6-6.2); White Blood Count 2.2 K/mm3 (4.4-11.0)
[2023-05-10 07:06] LABS: ALB/GLOB Ratio 0.9 RATIO (0.9-2.4); AST(SGOT) 20 U/L (15-37); Alanine Aminotransfer ALT/SGPT 17 U/L (16-61); Alkaline Phosphatase 57 U/L (45-117); Anion Gap 2 (5-15); BUN 21 mg/dL (7-18); BUN/Creat Ratio 18.3 RATIO (10-20); Calcium,Total 9.1 mg/dL (8.5-10.1); Chloride 109 mmol/L (98-107); Creatinine, Serum 1.15 mg/dL (0.70-1.30); EST Glomerular Filtration Rate 68 mL/min (>60); Est Glom Filt Rate - Afr Amer 83 mL/min (>60); Globulin 3.4 g/dL (2.2-4.2); Glucose 117 mg/dL (74-106); Potassium 4.2 mmol/L (3.5-5.1); Protein, Total 6.4 g/dL (6.4-8.2); Sodium Level 139 mmol/L (136-145)
--- NOTE | 2023-05-10 07:17 | PN.HOSP_ITS ---
Reason for Visit Reason for Visit: Diagnoses Influenza due to other identified influenza virus with other respiratory manife stations (05/10/23) Subjective Subjective Patient is a 62-year-old gentleman with history of COPD schizophrenia who presented with shortness of breath and assessment of COPD with acute exacerbation made admitted to regular nursing floor for further management Objective Data Objective Data Vital Signs: Vital Signs Temp Pulse Resp BP Pulse Ox O2 Del Method O2 Flow Rate 99 F 68 18 99/65 94 Nasal Cannula 4 05/10/23 06:06 05/10/23 06:06 05/10/23 06:06 05/10/23 06:06 05/10/23 06:07 05/10/23 06:07 05/10/23 06:07 Oxygen Flow Rate (L/min) 4 Oxygen Delivery Method Nasal Cannula Weight: 75.55 kg Body Mass Index (BMI) 24.6 Intake & Output: Intake and Output for Last 24 Hours 05/08/23 05/09/23 05/10/23 23:59 23:59 23:59 Intake Total 240 / 240 Balance 240 / 240 Lab / Micro Data 05/10/23 06:14 05/10/23 06:14 Labs: Laboratory Results - last 24 hr 05/10/23 01:49: WBC 3.0 L, RBC 3.30 L, Hgb 9.9 L, Hct 31.1 L, MCV 94.2 H, MCH 30.0, MCHC 31.8 L, RDW Std Deviation 43.1, RDW Coeff of Eyal 12.5, Plt Count 88 L , MPV 10.2, Immature Gran % (Auto) 0.300, Neut % (Auto) 65.0, Lymph % (Auto) 24.7, [place] % (Auto) 9.7, Eos % (Auto) 0.0, Baso % (Auto) 0.3, Absolute Neuts (auto) 2.0, Absolute Lymphs (auto) 0.74 L, Nucleated RBC % 0, Platelet Estimate SLT DEC, Sodium 139, Potassium 4.1, Chloride 107, Carbon Dioxide 29.0, Anion Gap 3 L, BUN 21 H, Creatinine 1.35 H, Est GFR (MDRD) Af Amer 69, Est GFR (MDRD) Non- Af 57 L, BUN/Creatinine Ratio 15.6, Glucose 99, Calcium 9.2, Total Bilirubin 0.30, AST 19, ALT 18, Alkaline Phosphatase 53, Troponin I High Sens 9, Total Protein 6.2 L, Albumin 3.1 L, Globulin 3.1, Albumin/Globulin Ratio 1.0 05/10/23 02:06: Lactic Acid 0.6 05/10/23 04:48: Procalcitonin 0.10 H 05/10/23 06:14: WBC 2.2 L, RBC 3.43 L, Hgb 10.3 L, Hct 32.0 L, MCV 93.3, MCH 30.0, MCHC 32.2, RDW Std Deviation 42.6, RDW Coeff of Eyal 12.4, Plt Count 83 L, MPV 9.7, Immature Gran % (Auto) 0.500, Neut % (Auto) 77.4 H, Lymph % (Auto) 18.4 L, [place] % (Auto) 3.7, Eos % (Auto) 0.0, Baso % (Auto) 0.0, Absolute Neuts (auto) 1.7 L, Absolute Lymphs (auto) 0.40 L, Nucleated RBC % 0, Sodium 139, Potassium 4.2, Chloride 109 H, Carbon Dioxide 28.0, Anion Gap 2 L, BUN 21 H, Creatinine 1.15, Estim Creat Clear Calc 66.60, Est GFR (MDRD) Af Amer 83, Est GFR (MDRD) Non-Af 68, BUN/Creatinine Ratio 18.3, Glucose 117 H, Calcium 9.1, Total Bilirubin 0.40, AST 20, ALT 17, Alkaline Phosphatase 57, Total Protein 6.4, Albumin 3.0 L, Globulin 3.4, Albumin/Globulin Ratio 0.9 Micro: Microbiology 05/10/23 01:49 Mucosa - Nose SARS-CoV-2, Influenza & RSV (PCR) - Final Influenzae A Radiography Diagnostic Testing: Radiology Impression Chest X-Ray 05/10/23 01:55 IMPRESSION: Opacities in the lower lobes bilaterally may represent atelectasis, infection and/or aspiration. Electronically Signed: Darren Cotto MD at 4:24 EST , Physical Exam Narrative GENERAL: cooperative HEENT: Atraumatic; normocephalic EYES; Anicteric, Normal Conjunctiva NECK; supple, normal thyroid, RESPIRATORY: Diminished to auscultation CARDIOVASCULAR: Regular S1 S2, GI: soft, normoactive bowel sounds, : No Renal angle tenderness; EXTREMITIES: No edema, no clubbing, MUSCULOSKELETAL: no muscle wasting NEURO: Awake; no lateralizing signs. SKIN: No Rash PSYCH; Flat affect Assessment & Plan Assessment/Plan (1) Type A influenza: PLAN: Plan Patient is a 62-year-old gentleman with history of COPD schizophrenia who presented with shortness of breath and assessment of COPD with acute exacerbation made admitted to regular nursing floor for further management 1. Acute hypoxia ? Secondary to combination of COPD with acute exacerbation as well as left lower lobe pneumonia 2. Pneumonia with suspected streptococcal pneumonia ? Admitted to regular nursing floor managed with bronchodilator treatment, antibiotic therapy with doxycycline as well as supplemental oxygen cultures were obtained in the ED we will follow-up on result 3.COPD with acute exacerbation ? Managed bronchodilator treatment, systemic steroid and supplemental oxygen 4. Acute kidney injury ? Baseline creatinine from 11/12/2015 was 0.96 creatinine on admission was 1.35 started on IV fluid with subsequent monitoring of electrolyte 5. Adrenal insufficiency ? Patient is on fludrocortisone did continue 6. Chronic dysphagia ? Consult placed to speech therapy 7. Pancytopenia ? Of unknown etiology monitoring with CBC with differential 8. Schizophrenia ? Did continue with patient psychotropic medications 9. History of anoxic brain injury ? Complicating care supportive treatments as needed 10. Seizure disorder ? Patient is on Depakote continue 11. Tobacco dependence - Counseled on cessation, offered nicotine patch for tobacco cravings 12. DVT prophylaxis ? SCDs only given patient's low platelet count
[2023-05-10] MEDS: Docusate Sodium 100 MG Capsule PO (10:04)
[2023-05-10] MEDS: Benztropine Mesylate 0.5 MG TABLET PO (10:04)
[2023-05-10] MEDS: Lithium Carbonate 300mg Capsule 300 MG PO ×2 (10:04→20:15)
[2023-05-10] MEDS: Tamsulosin HCl 0.4 MG Capsule PO (10:04)
[2023-05-10] MEDS: Fludrocortisone Acetate 0.1 MG Tablet 0.2 MG PO (10:04)
[2023-05-10] MEDS: Polyethylene Glycol 3350 17 GM PACKET PO (10:05)
[2023-05-10] MEDS: Propranolol LA 80 MG Capsule PO (10:05)
[2023-05-10] MEDS: Hydrocortisone 10 MG Tablet 20 MG PO ×2 (10:05→17:58)
[2023-05-10] MEDS: Divalproex Sodium 125 MG SPRINKLE 500 MG PO ×2 (10:05→20:15)
[2023-05-10] MEDS: Paroxetine 20 MG Tablet PO (10:05)
[2023-05-10] MEDS: Ferrous Sulfate 325 MG Tablet PO ×2 (10:05→17:58)
[2023-05-10] MEDS: Folic Acid 1 MG Tablet 0.5 MG PO (10:05)
[2023-05-10] MEDS: Doxycycline 100 MG in Dextrose 5%-Water (250mL Bag) 250 ML 250 MG IV ×2 (11:18→20:37)
--- NOTE | 2023-05-10 12:42 | CASEMGMT ---
Social Work SW called [facility], spoke w/Lucas, pt can return when ready. SW asked her to fax over guardianship paperwork. She did, Praveena Roger is pt's guardian. SW called her, message left. SW inquired w/physician if pt may be able to return tomorrow, he states possibly. SW sent updates via [employer]. SW placed green sheet on chart w/transport form in event pt can return to [facility] on Friday. TULIO Valdivia
[2023-05-10] MEDS: Lactulose 20 GM/30 ML UDC PO (12:45)
[2023-05-10] MEDS: Hydrocortisone 10 MG Tablet PO (12:46)
[2023-05-10] MEDS: DiphenhydrAMINE 50 MG/ML Syringe IM ×2 (13:49→22:02)
--- NOTE | 2023-05-10 13:58 | NURSING ---
Patient repeatedly attempting to get oob. Not following instructions. Cursing at staff and growing increasingly agitated. PRN Benadryl given IM per order. Patient returned to bed. Bed alarm intact. Continuous pulse ox applied and room camera on for safety monitoring. Call light in reach.
[2023-05-10] MEDS: Haloperidol Lactate 5 MG/ML Vial IM (16:41)
--- NOTE | 2023-05-10 16:48 | NURSING ---
Patient is getting agitated again. Cursing at staff. Trying to walk out of his room without a mask on. He kicked a CHIEF PSYCHOLOGY while she was trying to help him to the chair. PRN Haladol given per orders.
--- NOTE | 2023-05-10 16:52 | NURSING ---
Patient is getting agitated again. Cursing at staff. Trying to walk out of his room without a mask on. He kicked a CATTLE MANAGER while she was trying to help him to the chair. PRN Haldol given per orders.
[2023-05-10] MEDS: LORazepam 0.5 MG Tablet PO (17:58)
[2023-05-10] MEDS: MELATONIN 3 MG TABLET 6 MG PO (20:15)
[2023-05-10] MEDS: ARIPiprazole 5 MG Tablet PO (20:15)
[2023-05-10] MEDS: Atorvastatin Calcium 40 MG Tablet PO (20:15)
[2023-05-10] MEDS: Menthol/Lanolin/Calamine/Znox 113 GM Tube 1 APPLIC TOPICAL (20:16)
[2023-05-11] VITALS (12 sets, daily range): BP systolic 100–141; BP diastolic 54–87; PULSE 60–79; RESP 17–24; TEMP 36.6–36.8; O2SAT 87–95; BMI 24.6
[2023-05-11 06:54] LABS: Absolute Lymphocyte Count 0.64 X10^3/uL (0.83-4.51); Absolute Neutrophil Count 1.6 X10^3/uL (2.0-7.7); Hematocrit 32.1 % (40-54); Hemoglobin 10.5 g/dL (13.0-16.5); Lymphocyte # 0.64 X10^3/ul (0.83-4.51); Lymphocyte % 25.6 % (19-41); Mean Corp Hgb Conc 32.7 g/dL (32-36); Mean Corpuscular Hgb 30.8 pg (27.0-32.0); Mean Corpuscular Volume 94.1 fL (80-94); NRBC Flagged by Analyzer 0 % (0-5); Neutrophil # 1.64 X10^3/uL (2.7-7.7); Neutrophil % 65.6 % (47-70); Platelet Count 101 K/mm3 (150-450); RBC Distribution Width CV 12.2 % (11.6-14.6); RBC Distribution Width SD 42.1 fl (35.1-43.9); Red Blood Count 3.41 M/mm3 (4.6-6.2); White Blood Count 2.5 K/mm3 (4.4-11.0)
[2023-05-11] MEDS: LORazepam 1 MG Tablet PO ×3 (07:02→21:30)
[2023-05-11] MEDS: Haloperidol 1 MG Tablet 3 MG PO ×3 (07:03→21:38)
[2023-05-11 07:17] LABS: Anion Gap 3 (5-15); BUN 21 mg/dL (7-18); BUN/Creat Ratio 21.8 RATIO (10-20); Chloride 112 mmol/L (98-107); Creatinine, Serum 0.96 mg/dL (0.70-1.30); EST Glomerular Filtration Rate 84 mL/min (>60); Est Glom Filt Rate - Afr Amer 101 mL/min (>60); Estimated Creatinine Clearance 79.78 ml/min; Glucose 117 mg/dL (74-106); Magnesium 2.6 mg/dL (1.6-2.6); Phosphorus 4.2 mg/dL (2.5-4.9); Potassium 4.1 mmol/L (3.5-5.1); Sodium Level 141 mmol/L (136-145)
--- NOTE | 2023-05-11 09:16 | PCM.PN.HOSP ---
Reason for Visit Reason for Visit: Diagnoses Influenza due to other identified influenza virus with other respiratory manifestations (05/10/23) Subjective Subjective Patient is a 62-year-old gentleman admitted with acute influenza A infection admitted to regular nursing floor for further management Objective Data Objective Data Vital Signs: Vital Signs Temp Pulse Resp BP Pulse Ox O2 Del Method O2 Flow Rate 97.8 F 62 20 H 141/87 H 94 Nasal Cannula 4 05/11/23 06:43 05/11/23 06:43 05/11/23 06:43 05/11/23 06:43 05/11/23 07:58 05/11/23 07:58 05/11/23 07:58 Oxygen Flow Rate (L/min) 4 Oxygen Delivery Method Nasal Cannula Weight: 75.4 kg Body Mass Index (BMI) 24.6 Intake & Output: Intake and Output for Last 24 Hours 05/09/23 05/10/23 05/12/23 23:59 23:59 00:59 Intake Total 2361.67 / 2361.67 Balance 2361.67 / 2361.67 Lab / Micro Data 05/11/23 06:22 05/11/23 06:22 Labs: Laboratory Results - last 24 hr 05/11/23 06:22: WBC 2.5 L, RBC 3.41 L, Hgb 10.5 L, Hct 32.1 L, MCV 94.1 H, MCH 30.8, MCHC 32.7, RDW Std Deviation 42.1, RDW Coeff of Eyal 12.2, Plt Count 101 L, MPV 10.0, Immature Gran % (Auto) 0.800, Neut % (Auto) 65.6, Lymph % (Auto) 25.6, Tyrrell % (Auto) 8.0, Eos % (Auto) 0.0, Baso % (Auto) 0.0, Absolute Neuts (auto) 1.6 L, Absolute Lymphs (auto) 0.64 L, Nucleated RBC % 0, Sodium 141, Potassium 4.1, Chloride 112 H, Carbon Dioxide 26.0, Anion Gap 3 L, BUN 21 H, Creatinine 0.96, Estim Creat Clear Calc 79.78, Est GFR (MDRD) Af Amer 101, Est GFR (MDRD) Non-Af 84, BUN/Creatinine Ratio 21.8 H, Glucose 117 H, Calcium 9.0, Phosphorus 4.2, Magnesium 2.6 Micro: Microbiology 05/10/23 01:49 Mucosa - Nose SARS-CoV-2, Influenza & RSV (PCR) - Final Influenzae A Physical Exam Narrative GENERAL: cooperative HEENT: Atraumatic; normocephalic EYES; Anicteric, Normal Conjunctiva NECK; supple, normal thyroid, RESPIRATORY: Diminished to auscultation CARDIOVASCULAR: Regular S1 S2, GI: soft, normoactive bowel sounds, : No Renal angle tenderness; EXTREMITIES: No edema, no clubbing, MUSCULOSKELETAL: no muscle wasting NEURO: Awake; no lateralizing signs. SKIN: No Rash PSYCH; Flat affect Assessment & Plan Assessment/Plan (1) Type A influenza: PLAN: Plan Patient is a 62-year-old gentleman with history of COPD schizophrenia who presented with shortness of breath and assessment of COPD with acute exacerbation made admitted to regular nursing floor for further management 1. Acute hypoxia ? Secondary to combination of COPD with acute exacerbation, acute influenza A infection as well as left lower lobe pneumonia 2. Pneumonia with suspected streptococcal pneumonia ? Admitted to regular nursing floor managed with bronchodilator treatment, antibiotic therapy with doxycycline as well as supplemental oxygen cultures were obtained in the ED we will follow-up on result 3. COPD with acute exacerbation ? Managed bronchodilator treatment, systemic steroid and supplemental oxygen 4. Acute influenza A infection ? Symptomatic treatment 5. Acute kidney injury ? Baseline creatinine from 11/12/2015 was 0.96 creatinine on admission was 1.35 started on IV fluid with subsequent monitoring of electrolyte 6. Adrenal insufficiency ? Patient is on fludrocortisone did continue 7. Pancytopenia ? Of unknown etiology monitoring with CBC with differential 8. Schizophrenia ? Did continue with patient psychotropic medications 9. History of anoxic brain injury ? Complicating care supportive treatments as needed 10. Seizure disorder ? Patient is on Depakote continue 11. Tobacco dependence - Counseled on cessation, offered nicotine patch for tobacco cravings 12. Chronic dysphagia ? Consult placed to speech therapy 13. DVT prophylaxis ? SCDs only given patient's low platelet count Time spent in the patient's overall evaluation,decision-making process, review of diagnostic data, adjustment of management, discussion with other providers, nursing nursing and ancillary staff involved in patient's care documentation, 40 Minutes Charges/Coding Visit Charges Inpatient E&M: 43680 Subs Hosp L2
[2023-05-11] MEDS: Folic Acid 1 MG Tablet 0.5 MG PO (10:20)
[2023-05-11] MEDS: Hydrocortisone 10 MG Tablet 20 MG PO ×2 (10:21→15:06)
[2023-05-11] MEDS: Benztropine Mesylate 0.5 MG TABLET PO (10:21)
[2023-05-11] MEDS: Ferrous Sulfate 325 MG Tablet PO ×2 (10:21→18:22)
[2023-05-11] MEDS: Tamsulosin HCl 0.4 MG Capsule PO (10:21)
[2023-05-11] MEDS: Propranolol LA 80 MG Capsule PO (10:22)
[2023-05-11] MEDS: Lactulose 20 GM/30 ML UDC PO ×2 (10:22→21:10)
[2023-05-11] MEDS: Polyethylene Glycol 3350 17 GM PACKET PO (10:22)
[2023-05-11] MEDS: Divalproex Sodium 125 MG SPRINKLE 500 MG PO ×2 (10:22→21:30)
[2023-05-11] MEDS: Docusate Sodium 100 MG Capsule PO (10:22)
[2023-05-11] MEDS: Fludrocortisone Acetate 0.1 MG Tablet 0.2 MG PO (10:22)
[2023-05-11] MEDS: Oseltamivir Phosphate 75 MG Capsule PO ×2 (10:23→21:30)
[2023-05-11] MEDS: Lithium Carbonate 300mg Capsule 300 MG PO ×2 (10:23→21:30)
[2023-05-11] MEDS: Paroxetine 20 MG Tablet PO (10:23)
[2023-05-11] MEDS: Doxycycline 100 MG in Dextrose 5%-Water (250mL Bag) 250 ML 250 MG IV ×2 (10:24→21:31)
[2023-05-11] MEDS: 0.9% Saline Lock 10 ML Syringe IV (10:25)
[2023-05-11] MEDS: Menthol/Lanolin/Calamine/Znox 113 GM Tube 1 APPLIC TOPICAL ×2 (10:36→15:01)
--- NOTE | 2023-05-11 18:46 | NURSING ---
Pt has increased respirations at 22min. Spo2 87% on 4L NC. This RN applied 6L via high flow and spo2 was 92% then. Dr. Barr was made aware of this and also that this RN think his tongue is too big and he is sucking it back with his breathing and possible blocking his own airway. dr. Barr replied with thanks
[2023-05-11] MEDS: MELATONIN 3 MG TABLET 6 MG PO (21:30)
[2023-05-11] MEDS: Atorvastatin Calcium 40 MG Tablet PO (21:30)
[2023-05-11] MEDS: ARIPiprazole 5 MG Tablet PO (21:31)
[2023-05-11] MEDS: DiphenhydrAMINE 50 MG/ML Syringe IM (23:44)
[2023-05-11] MEDS: LORazepam 0.5 MG Tablet PO (23:45)
--- NOTE | 2023-05-11 23:50 | NURSING ---
Pt very restless, jumping out of bed and getting into the chair. Then jumping out of the chair again. Pt directed to say in bed or the chair. Becoming agitated. Medicated as ordered.
[2023-05-12] VITALS (10 sets, daily range): BP systolic 110–146; BP diastolic 71–88; PULSE 55–62; RESP 16–22; TEMP 36.7–37.1; O2SAT 90–98; BMI 24.3
--- NOTE | 2023-05-12 02:00 | CPS ---
Patient taking NC out of nose
[2023-05-12] MEDS: Haloperidol 1 MG Tablet 3 MG PO ×3 (05:45→22:18)
[2023-05-12] MEDS: LORazepam 1 MG Tablet PO ×3 (05:46→22:18)
[2023-05-12 07:53] LABS: Absolute Lymphocyte Count 0.79 X10^3/uL (0.83-4.51); Hematocrit 36.2 % (40-54); Hemoglobin 11.6 g/dL (13.0-16.5); Lymphocyte # 0.79 X10^3/ul (0.83-4.51); Lymphocyte % 15.2 % (19-41); Mean Corpuscular Hgb 30.1 pg (27.0-32.0); Mean Corpuscular Volume 93.8 fL (80-94); Mean Platelet Vol. 10.2 fl (6.2-12.0); Monocyte% 7.7 % (0-10); NRBC Flagged by Analyzer 0 % (0-5); Neutrophil # 3.96 X10^3/uL (2.7-7.7); Neutrophil % 76.1 % (47-70); Platelet Count 109 K/mm3 (150-450); RBC Distribution Width CV 12.2 % (11.6-14.6); RBC Distribution Width SD 42.4 fl (35.1-43.9); Red Blood Count 3.86 M/mm3 (4.6-6.2); White Blood Count 5.2 K/mm3 (4.4-11.0)
[2023-05-12] MEDS: Fludrocortisone Acetate 0.1 MG Tablet 0.2 MG PO (08:00)
[2023-05-12] MEDS: Hydrocortisone 10 MG Tablet 20 MG PO ×2 (08:00→12:35)
[2023-05-12] MEDS: Folic Acid 1 MG Tablet 0.5 MG PO (08:00)
[2023-05-12] MEDS: Ferrous Sulfate 325 MG Tablet PO (08:00)
[2023-05-12 08:23] LABS: Anion Gap 4 (5-15); BUN 22 mg/dL (7-18); BUN/Creat Ratio 19.3 RATIO (10-20); Calcium,Total 9.2 mg/dL (8.5-10.1); Chloride 111 mmol/L (98-107); Creatinine, Serum 1.14 mg/dL (0.70-1.30); EST Glomerular Filtration Rate 69 mL/min (>60); Est Glom Filt Rate - Afr Amer 84 mL/min (>60); Estimated Creatinine Clearance 67.19 ml/min; Glucose 104 mg/dL (74-106); Potassium 3.9 mmol/L (3.5-5.1); Sodium Level 143 mmol/L (136-145)
--- NOTE | 2023-05-12 10:09 | PN.HOSP_ITS ---
Reason for Visit Reason for Visit: Shortness of breath, hypoxia, fever Subjective Subjective Patient is a 62-year-old white male with a history of anoxic injury and dementia who is a resident at a local [facility] who presented to the emergency department at [facility] on 05/10/2023 with acute onset of fever, dyspnea, tachypnea, and hypoxia over the last 24 hours prior to presentation. At the nursing facility they noted accessory muscle use and he had a Tmax of 100.9. Chest x-ray is unremarkable. He was also screened for influenza, COVID, and RSV all of which were unremarkable. In the emergency department he was alert and await and noted to be in mild respiratory distress but does not verbally communicate at baseline. Vital signs on presentation were relatively stable other than his respiratory rate was 27 and he was 84% on room air. He was placed on nasal cannula at 4 L which improved his respiratory status to 94%. CBC showed neutropenia a chronic stable hemoglobin and thrombocytopenia which appears to be chronic as well. Patient was lymphopenic on presentation. On presentation his serum creatinine and BUN were slightly elevated at 21 and 1.35. Lactic acid was unremarkable. Blood cultures were obtained another rapid COVID, flu, RSV panel was performed and this time was noted to be positive for influenza A. Imaging was also concerning for opacities in the lower lobes bilaterally that was suggestive of atelectasis, infection, or aspiration. He was admitted to the medical floor and placed on antibiotics as well as Tamiflu. He was also treated with an increased dose of fludrocortisone due to his history of adrenal insufficiency. It was documented that he was up to heated high flow at 7 L however he kept pulling off his oxygen and oxygen saturations were measured on room air at 90%. Patient was sleeping comfortably at the time of my evaluation. Objective Data Objective Data Vital Signs: Vital Signs Temp Pulse Resp BP Pulse Ox O2 Del Method O2 Flow Rate 98.7 F 61 22 H 146/73 H 91 High Flow 7 05/12/23 05:53 05/12/23 05:53 05/12/23 05:53 05/12/23 05:53 05/12/23 07:50 05/12/23 07:50 05/12/23 07:50 Oxygen Flow Rate (L/min) 7 Oxygen Delivery Method High Flow Weight: 75.4 kg Body Mass Index (BMI) 24.6 Intake & Output: Intake and Output for Last 24 Hours 05/10/23 05/11/23 05/12/23 22:59 23:59 23:59 Intake Total 200 / 200 Balance 200 / 200 Lab / Micro Data 05/12/23 07:41 05/12/23 07:41 Labs: Laboratory Results - last 24 hr 05/12/23 07:41: WBC 5.2, RBC 3.86 L, Hgb 11.6 L, Hct 36.2 L, MCV 93.8, MCH 30.1, MCHC 32.0, RDW Std Deviation 42.4, RDW Coeff of Eyal 12.2, Plt Count 109 L, MPV 10.2, Immature Gran % (Auto) 1.000 H, Neut % (Auto) 76.1 H, Lymph % (Auto) 15.2 L, [place] % (Auto) 7.7, Eos % (Auto) 0.0, Baso % (Auto) 0.0, Absolute Neuts (auto) 4.0, Absolute Lymphs (auto) 0.79 L, Nucleated RBC % 0, Sodium 143, Potassium 3.9, Chloride 111 H, Carbon Dioxide 28.0, Anion Gap 4 L, BUN 22 H, Creatinine 1.14, Estim Creat Clear Calc 67.19, Est GFR (MDRD) Af Amer 84, Est GFR (MDRD) Non-Af 69, BUN/Creatinine Ratio 19.3, Glucose 104, Calcium 9.2 Micro: Microbiology 05/10/23 01:49 Mucosa - Nose SARS-CoV-2, Influenza & RSV (PCR) - Final Influenzae A Physical Exam Const no apparent distress and average body habitus Constitutional Narrative: Middle-aged, white male, laying in left side-lying, sleeping and appears comfortable HEENT head/scalp atraumatic Head and Scalp: normocephalic Resp normal respiratory effort, no retractions, no use of accessory muscles and clear to auscultation bilaterally Resp Narrative: Lungs were diminished but clear Auscultation: Negative for crackles, rhonchi or wheezes Cardio regular rate, regular rhythm, S1 normal heart sound, S2 normal heart sound, no murmurs, no rub, no gallops and no clicks GI normal to inspection, nondistended, normoactive bowel sounds, soft to palpation and non-tender Extremity no clubbing, cyanosis or edema Extremity Narrative: Pedal pulses are 2+ Neuro Neuro Narrative: Unable to assess due to patient sleeping Psych Psych Narrative: Calm, patient sleeping Assessment & Plan Assessment/Plan (1) Acute hypoxic respiratory failure: (2) Type A influenza: (3) Right lower lobe pulmonary infiltrate: PLAN: Plan Acute hypoxic respiratory failure secondary to influenza A and probable superimposed bacterial pneumonia -Patient has required up titration to now 7 L heated high flow nasal cannula -Wean oxygen as able -Ability to participate with I-S and Acapella is limited due to baseline mental status -Consult speech therapy -Will make n.p.o. except for her p.o. meds until speech therapy can see the patient -Continue IV antibiotics but transition from doxycycline to cefepime for aspiration coverage -Patient has allergies to quinolones and penicillins -Check CT of the chest to rule out any other etiology that could be contributing to worsening hypoxemia History of adrenal insufficiency -Continue home fludrocortisone -Continue home hydrocortisone -Blood pressures have remained stable CKD stage II -Serum creatinine appears to be stable -Continue to monitor especially with CTA of the chest Dementia of unclear type with behavioral disturbances/schizophrenia/schizoaffective disorder/anxiety and depression -Continue home aripiprazole -Continue as needed diphenhydramine -Continue home Depakote -Continue home scheduled and as needed Haldol -Continue home lactulose for history of hyperammonemia related to his Depakote use -Continue home lithium -Continue home lorazepam -Continue home melatonin -Continue home paroxetine BPH with obstruction -Continue home Flomax Hypertension -Continue home propranolol History of vitamin D deficiency -Continue home vitamin D and calcium supplementation Chronic pancytopenia -Counts are stable overall -Likely related to medications Open continue to monitor History of IBS with constipation -Continue home bowel regimen DVT prophylaxis -Add daily enoxaparin CODE STATUS -DNR CCA Charges/Coding Visit Charges Inpatient E&M: 98249 Subs Hosp L2
--- NOTE | 2023-05-12 10:14 | CT_ITS ---
STUDY: CTA CHEST REASON FOR EXAM: Male, 62 years old. Influenza A virus infection. COPD. RADIATION DOSAGE (If Supplied By Facility): CTDIvol = ( 14.95 ) mGy, DLP = ( 505.55 ) mGycm TECHNIQUE: The examination was performed with the intravenous administration of IV 100mL Isovue-370. Post-processing of the angiographic images was performed, with multiplanar reformation and 3D reconstruction. Individualized dose optimization techniques were used for this CT. COMPARISON: Comparison is made with prior chest radiograph dated May 10, 2023. FINDINGS: Normal enhancement of the main pulmonary artery and right and left pulmonary arteries. Normal enhancement of the bilateral peripheral pulmonary arteries. There is no demonstrated pulmonary embolism. Normal thoracic aorta and visualized great vessels. There is no demonstrated aortic dissection. Normal heart and pericardium. Normal mediastinum. Normal hilar regions. Normal visualized trachea and bronchi. The lungs are well expanded. Patchy infiltrates at the lung bases. Normal pleura. Normal chest wall structures. There are degenerative changes of thoracic spine. Normal visualized upper abdomen. CT/CTA Chest W/WO Contrast IMPRESSION: Patchy bibasilar infiltrates. No evidence of pulmonary embolism. Electronically Signed: Matthew Hartley MD at 14:24 EDT ,
[2023-05-12] MEDS: Benztropine Mesylate 0.5 MG TABLET PO (10:22)
[2023-05-12] MEDS: Polyethylene Glycol 3350 17 GM PACKET PO (10:22)
[2023-05-12] MEDS: Lactulose 20 GM/30 ML UDC PO ×2 (10:23→22:18)
[2023-05-12] MEDS: Menthol/Lanolin/Calamine/Znox 113 GM Tube 1 APPLIC TOPICAL ×2 (10:23→14:14)
[2023-05-12] MEDS: Paroxetine 20 MG Tablet PO (10:24)
[2023-05-12] MEDS: Docusate Sodium 100 MG Capsule PO (10:24)
[2023-05-12] MEDS: Divalproex Sodium 125 MG SPRINKLE 500 MG PO (10:24)
[2023-05-12] MEDS: Oseltamivir Phosphate 75 MG Capsule PO ×2 (10:25→22:25)
[2023-05-12] MEDS: Lithium Carbonate 300mg Capsule 300 MG PO ×2 (10:26→22:17)
[2023-05-12] MEDS: Tamsulosin HCl 0.4 MG Capsule PO (10:26)
[2023-05-12] MEDS: Propranolol LA 80 MG Capsule PO (10:26)
[2023-05-12] MEDS: 0.9% Saline Lock 10 ML Syringe IV ×2 (10:36→14:16)
[2023-05-12] MEDS: Hydrocortisone 10 MG Tablet PO (12:57)
[2023-05-12] MEDS: Cefepime HCl 2 GM in 0.9% Normal Saline (100mL MB+) 100 ML IV ×2 (14:15→22:32)
[2023-05-12] MEDS: MELATONIN 3 MG TABLET 6 MG PO (22:17)
[2023-05-12] MEDS: ARIPiprazole 5 MG Tablet PO (22:18)
[2023-05-12] MEDS: Atorvastatin Calcium 40 MG Tablet PO (22:25)
[2023-05-12] MEDS: DiphenhydrAMINE 50 MG/ML Syringe IM (23:24)
[2023-05-13] VITALS (9 sets, daily range): BP systolic 106–140; BP diastolic 60–74; PULSE 48–60; RESP 20; TEMP 36.4–37.1; O2SAT 90–94; BMI 24.3
[2023-05-13] MEDS: LORazepam 0.5 MG Tablet PO (00:01)
[2023-05-13] MEDS: Divalproex Sodium 125 MG SPRINKLE 500 MG PO ×3 (00:03→21:29)
[2023-05-13] MEDS: Haloperidol Lactate 5 MG/ML Vial IM (00:12)
[2023-05-13] MEDS: 0.9% Saline Lock 10 ML Syringe IV ×3 (05:59→21:30)
[2023-05-13] MEDS: Cefepime HCl 2 GM in 0.9% Normal Saline (100mL MB+) 100 ML IV ×3 (05:59→21:33)
[2023-05-13 06:41] LABS: Absolute Lymphocyte Count 0.86 X10^3/uL (0.83-4.51); Absolute Neutrophil Count 3.2 X10^3/uL (2.0-7.7); Basophil# 0.01 X10^3/uL; Basophil% 0.2 % (0-1); Hematocrit 29.6 % (40-54); Hemoglobin 9.5 g/dL (13.0-16.5); Lymphocyte # 0.86 X10^3/ul (0.83-4.51); Lymphocyte % 19.8 % (19-41); Mean Corp Hgb Conc 32.1 g/dL (32-36); Mean Corpuscular Hgb 29.9 pg (27.0-32.0); Mean Corpuscular Volume 93.1 fL (80-94); Mean Platelet Vol. 10.6 fl (6.2-12.0); Monocyte# 0.27 X10^3/uL; Monocyte% 6.2 % (0-10); NRBC Flagged by Analyzer 0 % (0-5); Neutrophil # 3.18 X10^3/uL (2.7-7.7); Neutrophil % 73.1 % (47-70); POSITIVE COUNT YES; POSITIVE MORPHOLOGY YES; Platelet Count 93 K/mm3 (150-450); RBC Distribution Width CV 12.1 % (11.6-14.6); RBC Distribution Width SD 41.6 fl (35.1-43.9); Red Blood Count 3.18 M/mm3 (4.6-6.2); White Blood Count 4.4 K/mm3 (4.4-11.0)
[2023-05-13 06:44] LABS: Differential Indicated SCAN CRITERIA MET
[2023-05-13] MEDS: Haloperidol 1 MG Tablet 3 MG PO ×3 (06:54→21:29)
[2023-05-13] MEDS: LORazepam 1 MG Tablet PO ×2 (06:54→21:30)
[2023-05-13 07:40] LABS: Anion Gap 3 (5-15); BUN 28 mg/dL (7-18); BUN/Creat Ratio 24.6 RATIO (10-20); Calcium,Total 9.3 mg/dL (8.5-10.1); Chloride 114 mmol/L (98-107); Creatinine, Serum 1.14 mg/dL (0.70-1.30); EST Glomerular Filtration Rate 69 mL/min (>60); Est Glom Filt Rate - Afr Amer 84 mL/min (>60); Estimated Creatinine Clearance 67.19 ml/min; Glucose 110 mg/dL (74-106); Potassium 3.9 mmol/L (3.5-5.1); Sodium Level 144 mmol/L (136-145)
[2023-05-13 08:27] LABS: Platelet Estimate MOD DEC (ADEQ); Reactive Lymphocyte 1+
--- NOTE | 2023-05-13 09:17 | NURSING ---
This RN called pt's legal guardian, Praveena, to obtain verbal consent to perform barium swallow study with speech therapy. Praveena, legal guardian, consented to this intervention. Speech therapy notified.
[2023-05-13] MEDS: Enoxaparin 40 MG/0.4 ML Syringe SC (10:21)
[2023-05-13] MEDS: Folic Acid 1 MG Tablet 0.5 MG PO (10:21)
[2023-05-13] MEDS: Fludrocortisone Acetate 0.1 MG Tablet 0.2 MG PO (10:22)
[2023-05-13] MEDS: Menthol/Lanolin/Calamine/Znox 113 GM Tube 1 APPLIC TOPICAL ×4 (10:22→21:44)
[2023-05-13] MEDS: Hydrocortisone 10 MG Tablet 20 MG PO ×2 (10:22→16:52)
--- NOTE | 2023-05-13 10:50 | ST.MBS ---
Modified Barium Swallow Patient Information Study Date: 05/13/23 Study Time: 09:15 Direct Billable Minutes: 120 Total Minutes procedure & reportin Diagnosis: Acute hypoxic respiratory failure J96.01 Referring Physician: Kirsty Rodarte Reason for Referral: Objectively assess swallow function, assess risk for aspiration, and determine recommendations for least restrictive diet textures and compensatory strategies to improve safety of swallow. Medical History: PMH: Tobacco use, Dementia unclear type with unclear behavioral disturbance history, IBS, Polyarthropathy, Hx Obstructive uropathy/BPH, Chronic oral dysphagia, Chronic anemia/iron deficiency anemia, Chronic Pancytopenia, Schizophrenia/Schizoaffective disorder/Anxiety and Depression/Mood disorder, COPD/Asthma, Seizure disorder, Adrenal insufficiency, Hx Anoxic brain injury, GERD, HTN, HLD. He presented [facility] ED on 05/10/23 with history of onset over the last 24 hours fever, dyspnea, tachypnea with hypoxia noted at SNF. He was admitted for management of Influenza A. Chest x-ray with increased interstitial markings right lower lobe. Speech therapy assessed the patient at bedside during his acute stay and recommended him for minced and moist textures / thin liquids. With STAFF INTERNIST OFFICE BASED ONLY and STAFF INTERNIST OFFICE BASED ONLY student on 05/12/23, the patient sequentially drank liquids, had SpO2 drop 5% to 87%, and had wet breathing after the swallow. Due to concern for silent aspiration, the patient was recommended NPO with plans for MBSS today. Patient and legal guardian were agreeable to the assessment. Current Diet Ordered: NPO Dentition: Edentulous Mental Status: Impaired Respiratory Status: Oxygenating on 4L/M nasal cannula (6L) Penetration-Aspiration Scale Penetration-Aspiration Scale: OBJECTIVE ASSESSMENT OF SWALLOW FUNCTION (QUANTITATIVE ? PER TRIAL): PENETRATION / ASPIRATION SCALE (MORALES): 1 = does not enter airway 2 = enters airway/above vocal folds/ejected 3 = enters airway/above vocal folds/not ejected 4 = enters airway/contacts vocal folds/ejected 5 = enters airway/contacts vocal folds/not ejected 6 = enters airway/below vocal folds/ejected 7 = enters airway/below vocal folds/not ejected despite effort 8 = enters airway/below vocal folds/no effort VIDEOFLOROSCOPIC SCALE SCORE (MORALES): Grade I = aspiration of material that has penetrated into the laryngeal vestibule, intact cough reflex Grade II = aspiration < 10 % of the bolus, intact cough reflex Grade III = aspiration of < 10 % of the bolus, reduced cough reflex or aspiration of > 10 % of the bolus, intact cough reflex Grade IV = aspiration of > 10 % of the bolus, reduced cough reflex Penetration-Aspiration Scale Score Thin Liquid via teaspoon: Comment: Trace amount accepted by the patient with anterior loss of a majority of the bolus. No swallow to score. Thin Liquid via teaspoon Trial 2: Result: 1= does not enter airway Thin Liquid via sequential sips: cup: Result: 1= does not enter airway Thin Liquid via single sip: straw: Result: 1= does not enter airway Pudding via teaspoon: Result: 1= does not enter airway Thin Liquid via single sip: straw Trial 2: Result: 1= does not enter airway Salix Thick Liquid via small single sip: cup: Comment: Trace NTL accepted into anterior FOM. No attempts at swallowing, so trial was unable to be scored. Thin Liquid via small single sip: cup: Result: 1= does not enter airway Oral Phase Labial Seal: Escape beyond mid-chin Tongue Control During Bolus Hold: Posterior escape of greater than half of bolus Bolus Transport/Lingual Motion: Repetitive/disorganized tongue motion Oral Residue: Majority of bolus remaining Pharyngeal Phase Initiation of Pharyngeal Swallow: Bolus head in pyriforms Soft Palate Elevation: Trace column of contrast/air between soft palate and pharyngeal wall Laryngeal Elevation: Comp. Superior move thyroid cart w/comp. apprx arytenoid cart-epig pet Anterior Hyoid Excursion: Partial anterior movement Epiglottic Movement: Complete inversion Laryngeal Vestibule Closure at Height of Swallow: Complete; no air/contrast in laryngeal vestibule Pharyngeal Stripping Wave: Present - diminished Pharyngoesophageal Segment Opening: Complete distension and complete duration; no obstruction of flow Tongue Base Retraction: Narrow column of contrast between tongue base & post. pharyngeal wall Pharyngeal Residue: Trace residue within or on pharyngeal structures Diagnosis/Impression Diagnosis: Severe oral dysphagia R13.11, Mild pharyngeal dysphagia R13.13 Impression: The oral phase is primarily marked by... -Poor labial seal with barium spilling beyond mid chin by tsp. -Decreased bolus control with >1/2 of the bolus spilling posteriorly to the pyriforms prior to swallow onset observed with thin liquids especially.? -Repetitive and disorganized tongue motion for A-P transport.? -Severe oral residue after the swallow observed with pudding trial, which did not fully clear with multiple swallows or thin liquid wash. Mild-mod residues removed via toothette swab after the study.? -Did not complete cookie trial due to concerns of choking with poor oral phase deficits observed with pudding trial.? ? The pharyngeal phase is primarily marked by... -Delayed swallow onset. -Decreased anterior hyoid excursion. Aspiration was not observed during this study but cannot be definitively ruled out due to patient's constant movement. No laryngeal penetration was observed during?the study.? -Mildly decreased tongue base retraction and mildly decreased pharyngeal stripping wave with resulting trace pharyngeal residues after the swallow. Recommendations Diet: Puree Textures (MOIST) and Thin Liquids Compensatory Strategies: Small Bites, Small Sips, Slow Rate (SIPS ONE AT A TIME), Alternate bites/solids and sips/liquids (AT LEAST 2 SIPS AFTER EACH BITE), Sitting upright and Remain sitting upright for 30 minutes after PO intake Supervision: Assist as needed (Assist feeding as needed to slow rate of intake [e.g. pinch straw to limit sip size, provide sips 1-2oz at a time in a cup]) and 1:1 Close Supervision Recommend Repeat Modified Barium Swallow: TBD Need for Skilled Speech Therapy Services: Yes Comment: -Train the patient and staff in use of strategies to decrease risk for aspiration.?Consider use of 10cc Provale cup to control bolus rate/size. -Ongoing assessment of diet tolerance of recommended textures.? -If patient is able to follow commands, train the patient oropharyngeal exercise program to improve bolus control, anterior hyoid excursion, and swallow onset (lingual resistance/coordination, Mil, CTAR, effortful).? Education Completed: 1. Described result of evaluation., 4. Family/caregivers understand evaluation & agree w/ goals & tx plan. (Legal guardian, Praveena, verbalized agreement to STAFF INTERNIST OFFICE BASED ONLY recommendations.) and 7. Pt requires further education on strategies & risks. Status Active ST Patient: Active Contact Information [facility] Speech Therapy:: Shirin Palencia M.A. CCC-STAFF INTERNIST OFFICE BASED ONLY? Speech-Language Pathologist?? [place] [id number]?? [place] [address]?? [email or web address]?? [phone]??
--- NOTE | 2023-05-13 10:59 | CASEMGMT ---
Social Work Pt has a guardian, Praveena Roger, document is on the chart. TULIO Valdivia
--- NOTE | 2023-05-13 11:01 | CASEMGMT ---
Addendum entered by Janelle Hedrick 05/13/23 11:14: Social Work SW rounded w/the physician, pt not ready today, is on high flow oxygen now. SW called pt's guardian Praveena back to update her. TULIO Valdivia Original Note: Social Work SW spoke w/pt's guardian, Praveena Roger, confirmed plan is for pt to return to [facility], SW let her know that pt may be able to return today. TULIO Valdivia
[2023-05-13] MEDS: Hydrocortisone 10 MG Tablet PO (14:50)
[2023-05-13] MEDS: Paroxetine 20 MG Tablet PO (14:50)
[2023-05-13] MEDS: Lithium Carbonate 300mg Capsule 300 MG PO ×2 (14:50→21:29)
[2023-05-13 15:03] LABS: Bedside Glucose 120 mg/dL (74-106)
[2023-05-13] MEDS: Benztropine Mesylate 0.5 MG TABLET PO (15:05)
[2023-05-13] MEDS: Tamsulosin HCl 0.4 MG Capsule PO (15:05)
[2023-05-13] MEDS: Polyethylene Glycol 3350 17 GM PACKET PO (15:10)
--- NOTE | 2023-05-13 15:13 | CASEMGMT ---
Discharge Planning Updates faxed [facility] Alireza. Valentina Thibodeaux, Discharge Planning Asst.
[2023-05-13] MEDS: Oseltamivir Phosphate 75 MG Capsule PO (15:23)
[2023-05-13 16:28] LABS: Base Excess 0 mmol/L (-2 to +2); Bicarbonate 23.9 mmol/L (22-26); Blood Gas Specimen Type ART; Mode Not entered; O2 Delivery Device Not entered; PO2 56 mmHG (75-100); SITE L Brach; SO2 90 % (95-99); Total Carbon Dioxide 25 mmol/L; pH 7.43 (7.35-7.45)
[2023-05-13] MEDS: Ferrous Sulfate 325 MG Tablet PO (16:51)
--- NOTE | 2023-05-13 17:21 | PN.HOSP_ITS ---
Reason for Visit Reason for Visit: Diagnoses Influenza due to other identified influenza virus with other respiratory manife stations (05/10/23) Acute respiratory failure with hypoxia (05/10/23) Other nonspecific abnormal finding of lung field (05/10/23) Subjective Subjective Patient with some agitation overnight was given Ativan, Benadryl, and his as needed Haldol. He is now sleepy this morning. Patient with some bradycardia as well. EKG shows P waves in lead II and aVF which are the best places to see P waves so I suspect this is sinus bradycardia. He is on propranolol and on Tamiflu. Will hold both. Objective Data Objective Data Vital Signs: Vital Signs Temp Pulse Resp BP Pulse Ox O2 Del Method O2 Flow Rate 97.8 F 50 L 20 H 139/74 H 94 High Flow 6 05/13/23 16:27 05/13/23 16:27 05/13/23 16:27 05/13/23 16:27 05/13/23 16:27 05/13/23 16:27 05/13/23 16:27 Oxygen Flow Rate (L/min) 6 Oxygen Delivery Method High Flow Weight: 74.52 kg Body Mass Index (BMI) 24.3 Intake & Output: Intake and Output for Last 24 Hours 05/11/23 05/12/23 05/13/23 23:59 23:59 23:59 Intake Total 400 / 600 400 / 400 Balance 400 / 600 400 / 400 Lab / Micro Data 05/13/23 06:28 05/13/23 06:28 Labs: Laboratory Results - last 24 hr 05/13/23 06:28: WBC 4.4, RBC 3.18 L, Hgb 9.5 L, Hct 29.6 L, MCV 93.1, MCH 29.9, MCHC 32.1, RDW Std Deviation 41.6, RDW Coeff of Eyal 12.1, Plt Count 93 L, MPV 10.6, Immature Gran % (Auto) 0.700, Neut % (Auto) 73.1 H, Lymph % (Auto) 19.8, [place] % (Auto) 6.2, Eos % (Auto) 0.0, Baso % (Auto) 0.2, Absolute Neuts (auto) 3.2, Absolute Lymphs (auto) 0.86, Nucleated RBC % 0, Reactive Lymphocytes 1+, Platelet Estimate MOD DEC, Sodium 144, Potassium 3.9, Chloride 114 H, Carbon Dioxide 27.0, Anion Gap 3 L, BUN 28 H, Creatinine 1.14, Estim Creat Clear Calc 67.19, Est GFR (MDRD) Af Amer 84, Est GFR (MDRD) Non-Af 69, BUN/Creatinine Ratio 24.6 H, Glucose 110 H, Calcium 9.3 05/13/23 12:43: POC Glucose 120 H Micro: Microbiology 05/10/23 01:49 Mucosa - Nose SARS-CoV-2, Influenza & RSV (PCR) - Final Influenzae A ABG Data ABG results: ABG 05/13/23 13:20 Specimen Type ART Sample Site L Brach pH 7.43 Bicarbonate Actual 23.9 Total CO2 25 Base Excess 0 O2 Saturation 90 L O2 % 4.0 ABG pCO2 36.0 ABG pO2 56 L O2 Delivery Device Not entered Vent Mode Not entered Physical Exam Const no apparent distress and average body habitus Constitutional Narrative: Middle-aged, white male, laying in left side-lying, has just gotten up to go to the bathroom but currently will not interact with me at this time, nursing agency manager at the bedside HEENT head/scalp atraumatic HEENT Narrative: Patient is a dentulous and mucous membranes are moist Head and Scalp: normocephalic Resp normal respiratory effort, no retractions and no use of accessory muscles Resp Narrative: Rhonchi noted in bases bilaterally Auscultation: rhonchi; Negative for crackles or wheezes Cardio regular rate, regular rhythm, S1 normal heart sound, S2 normal heart sound, no murmurs, no rub, no gallops and no clicks GI normal to inspection, nondistended, normoactive bowel sounds, soft to palpation and non-tender Extremity no clubbing, cyanosis or edema Extremity Narrative: Pedal pulses are 2+ Neuro Neuro Narrative: Patient refusing to interact with me at this time Psych Psych Narrative: Calm currently Assessment & Plan Assessment/Plan (1) Acute hypoxic respiratory failure: (2) Type A influenza: (3) Right lower lobe pulmonary infiltrate: (4) Bradycardia: (5) Toxic metabolic encephalopathy: PLAN: Plan Acute hypoxic respiratory failure secondary to influenza A and probable superimposed bacterial pneumonia -Oxygen status fluctuates and currently on 6 L heated high flow -ABG was performed and patient is hypoxic on ABG with a pO2 of 58 on 4 L -Wean oxygen as able -Ability to participate with I-S and Acapella is limited due to baseline mental status -Speech therapy is following and modified barium swallow done today with found diagnosis of severe oral dysphagia and mild pharyngeal dysphagia -Continue cefepime-day 4 of 7 -CTA of the chest was unremarkable for PE but does show patchy bibasilar infiltrates -I think his hypoxia is multifactorial related to his bacterial pneumonia, possibly some underlying COPD as well as atelectasis and aspiration -Consult pulmonary medicine Dysphagia -Severe oral dysphagia and mild pharyngeal dysphagia on MBS done on 05/13/2023 -Recommended diet is pur?ed with thin liquids -Compensatory strategies as noted -Patient will need supervision with one-on-one feeding and sips of 1 to 2 ounces at a time and a cup with no straws -Repeat modified barium swallow has been recommended Bradycardia -Heart rate has slowly been trending down -Will hold propranolol -Tamiflu can cause bradycardia so we will discontinue this -Continue to monitor on telemetry -Patient appears to be asymptomatic Toxic/metabolic encephalopathy -Patient was given Ativan, Benadryl, and Haldol overnight -Seems to be room proving as time goes on -ABG is unremarkable -Ammonia level has been ordered and currently pending as the patient is on Depakote at baseline with history of hyperammonemia -He is chronically on lactulose -Cefepime could be contributing to this as well and if it is persistent tomorrow may need to change antibiotics History of adrenal insufficiency -Continue home fludrocortisone -Continue home hydrocortisone -Blood pressures have remained stable CKD stage II -Serum creatinine appears to be stable -Continue to monitor especially with CTA of the chest Dementia of unclear type with behavioral disturbances/schizophrenia/schizoaffective disorder/anxiety and depression -Continue home aripiprazole -Continue as needed diphenhydramine -Continue home Depakote -Continue home scheduled and as needed Haldol -Continue home lactulose for history of hyperammonemia related to his Depakote use -Continue home lithium -Continue home lorazepam -Continue home melatonin -Continue home paroxetine BPH with obstruction -Continue home Flomax Hypertension -Continue home propranolol History of vitamin D deficiency -Continue home vitamin D and calcium supplementation Chronic pancytopenia -Counts are stable overall -Likely related to medications -Continue to monitor History of IBS with constipation -Continue home bowel regimen DVT prophylaxis -Continue subcu enoxaparin CODE STATUS -DNR CCA Charges/Coding Visit Charges Inpatient E&M: 19628 Subs Hosp L3
[2023-05-13] MEDS: MELATONIN 3 MG TABLET 6 MG PO (21:29)
[2023-05-13] MEDS: Atorvastatin Calcium 40 MG Tablet PO (21:29)
[2023-05-13] MEDS: ARIPiprazole 5 MG Tablet PO (21:30)
[2023-05-14] MEDS: DiphenhydrAMINE 50 MG/ML Syringe IM (00:21)
[2023-05-14 04:15] VITALS: PULSE 40; PULSE 41; O2SAT 89; O2SAT 92
[2023-05-14 05:28] VITALS: BMI 24.0
[2023-05-14 06:04] VITALS: BP 115/49; PULSE 43; RESP 18; TEMP 36.2; O2SAT 92
[2023-05-14] MEDS: 0.9% Saline Lock 10 ML Syringe IV ×2 (06:12→14:16)
[2023-05-14] MEDS: Cefepime HCl 2 GM in 0.9% Normal Saline (100mL MB+) 100 ML IV ×2 (06:14→14:16)
[2023-05-14 07:13] LABS: Absolute Lymphocyte Count 0.92 X10^3/uL (0.83-4.51); Absolute Neutrophil Count 2.5 X10^3/uL (2.0-7.7); Hematocrit 28.8 % (40-54); Hemoglobin 9.4 g/dL (13.0-16.5); Lymphocyte # 0.92 X10^3/ul (0.83-4.51); Lymphocyte % 25.7 % (19-41); Mean Corp Hgb Conc 32.6 g/dL (32-36); Mean Corpuscular Hgb 30.2 pg (27.0-32.0); Mean Corpuscular Volume 92.6 fL (80-94); Mean Platelet Vol. 10.6 fl (6.2-12.0); Monocyte# 0.19 X10^3/uL; Monocyte% 5.3 % (0-10); NRBC Flagged by Analyzer 0 % (0-5); Neutrophil # 2.46 X10^3/uL (2.7-7.7); Neutrophil % 68.7 % (47-70); POSITIVE COUNT YES; POSITIVE MORPHOLOGY YES; Platelet Count 92 K/mm3 (150-450); RBC Distribution Width CV 12.1 % (11.6-14.6); Red Blood Count 3.11 M/mm3 (4.6-6.2); White Blood Count 3.6 K/mm3 (4.4-11.0)
[2023-05-14 07:15] LABS: Differential Indicated SCAN CRITERIA MET
[2023-05-14 07:25] LABS: ALB/GLOB Ratio 0.9 RATIO (0.9-2.4); AST(SGOT) 18 U/L (15-37); Alanine Aminotransfer ALT/SGPT 13 U/L (16-61); Albumin, Serum 2.4 g/dL (3.2-5.0); Alkaline Phosphatase 48 U/L (45-117); Anion Gap 5 (5-15); BUN 28 mg/dL (7-18); BUN/Creat Ratio 24.8 RATIO (10-20); Calcium,Total 8.4 mg/dL (8.5-10.1); Chloride 112 mmol/L (98-107); Creatinine, Serum 1.13 mg/dL (0.70-1.30); EST Glomerular Filtration Rate 70 mL/min (>60); Est Glom Filt Rate - Afr Amer 84 mL/min (>60); Estimated Creatinine Clearance 67.78 ml/min; Globulin 2.7 g/dL (2.2-4.2); Glucose 106 mg/dL (74-106); Magnesium 2.7 mg/dL (1.6-2.6); Phosphorus 3.4 mg/dL (2.5-4.9); Potassium 4.2 mmol/L (3.5-5.1); Protein, Total 5.1 g/dL (6.4-8.2); Sodium Level 144 mmol/L (136-145)
[2023-05-14 07:50] LABS: Platelet Estimate SLT DEC (ADEQ)
[2023-05-14 08:00] VITALS: BP 120/94; PULSE 50; RESP 20; TEMP 36.3; O2SAT 94
--- NOTE | 2023-05-14 09:14 | CON.PCM.CC_ITS ---
Assessment & Plan Assessment/Plan (1) Acute hypoxic respiratory failure: (2) Type A influenza: (3) History of schizophrenia: PLAN: Plan RECOMMENDATIONS: 1. Schedule Mucinex. Doubt patient would tolerate vest 2. Continue steroids and bronchodilators 3. Minimize sedative medications 4. Continue swallow precautions IMPRESSIONS: 1. Acute hypoxic respiratory failure secondary to influenza A, probable aspiration pneumonia in the setting of presumed COPD Patient does have a long smoking history, so obstructive lung disease would be suspected. This has not been confirmed by PFT. Patient does have significant wheezing on exam despite multiple days of antibiotics. Patient has not been able to comply with pulmonary toileting well, but CT scan does appear to have an element of atelectasis. ABG shows adequate ventilation with significant increase in a gradient. Could attempt CPAP or vest therapy for recruitment, but doubt patient would tolerate this well given his concomitant psychiatric issues. Will attempt to schedule patient's Robitussin for pulmonary toileting. Avoidance of sedative medications may be helpful for spontaneous pulmonary toileting. Patient does not appear to be clinically volume overl oaded. 2. Toxic/metabolic encephalopathy/schizoaffective disorder/anxiety/depress ion Patient's baseline mental status does complicate his overall condition. Patient has been continued on baseline medications. Would attempt to limit sedative medications as this will decrease his ability for spontaneous pulmonary toileting. 3. History of adrenal insufficiency/bradycardia/BPH/pancytopenia/CKD stage II Complicates care, management, recovery and prognosis. Patient has no signs or symptoms of bleeding at this time. Patient has received contrast, but appears to have tolerated this well. There does appear to be a discrepancy between CODE STATUS in the computer and notes, but no family is available for verification. Will defer to hospitalist. HPI Consult Data Date of Consult: 05/14/23 HPI Narrative Reason for Consultation: Hypoxia HPI Narrative: KIMMY OCHOA is a 62 M, with past medical history listed below, who presented to [facility] on 05/10/[facility]23 secondary to hypoxia and shortness of breath. Patient resides at a nursing facility and has a history of COPD, schizophrenia and iron deficiency anemia. Patient was noted to have a te mperature of 100.9 ?F at that time and had tested positive for influenza. Patient reportedly is an active daily smoker. In the ER, patient was afebrile, but tachypneic at 27 breaths/min. Patient did require 4 L nasal cannula as he was 84% on room air. Laboratory data showed a white blood cell count of 3, hemoglobin of 9.9 and platelets of 88. Patient also has a bicarbonate of 29 with a creatinine of 1.35. Lactate was within normal limits. Chest x-ray showed increased interstitial markings in the right base. The patient was admitted to the floor for further evaluation. Since admission, patient has had a swallow study showing some dysphagia but p.o. intake has been maintained using modifications. Patient is relatively nonverbal and unable to provide much additional information. No family is at the bedside. Unable to obtain a review of systems [facility] Medical History Adrenal insufficiency Anxiety and depression Asthma BPH (benign prostatic hyperplasia) Chronic anemia COPD (chronic obstructive pulmonary disease) Dementia Dysphagia GERD (gastroesophageal reflux disease) History of anoxic brain injury HLD (hyperlipidemia) HTN (hypertension) Hydrocele IBS (irritable bowel syndrome) Mood disorder Polyarthropathy Schizoaffective disorder Schizophrenia Seizure disorder Home Medications Dulcolax 5 mg PO PRN PRN Constipation 05/26/17 [History Last Taken Unknown] acetaminophen 325 mg tablet (Tylenol) 650 mg PO Q4H PRN Headache 05/26/17 [History Last Taken Unknown] albuterol sulfate 2.5 mg/3 mL (0.083 %) solution for nebulization 2.5 mg inhalation Q6H PRN PRN Sob &/Or Wheezing 05/26/17 [History Last Taken Unknown] aluminum-mag hydroxide-simethicone 400 mg-400 mg-40 mg/5 mL oral susp (Mag-Al Plus Extra Strength) 30 ml PO Q4H PRN PRN Indigestion 05/26/17 [History Last Taken Unknown] aripiprazole 5 mg tablet 5 mg PO QHS blood thinner 05/26/17 [History Last Taken 06/05/17 20:45 1] benzocaine 15 mg-menthol 3.6 mg lozenges (Cepacol Sore Throat (benzocaine- menthol)) 1 blaire buccal PRN PRN Sore Throat 05/26/17 [History Last Taken Unknown] bisacodyl 10 mg rectal suppository 10 mg RECTAL DAILY PRN PRN Constipation 05/26/17 [History Last Taken Unknown] calcium carbonate 600 mg-vitamin D3 5 mcg (200 unit) tablet (Calcium 600 + D(3)) 1 ea PO BID supplement 05/26/17 [History Last Taken 06/05/17 20:45 1] divalproex 125 mg capsule,delayed release sprinkle (Depakote Sprinkles) 125 mg PO Q8H schizophrednia 05/26/17 [History Last Taken 06/05/17 20:45 1] docusate sodium 100 mg capsule (DOK) 100 mg PO DAILY stool softener 05/26/17 [History Last Taken Unknown] fludrocortisone 0.1 mg tablet 0.05 mg PO DAILY@0800 abn labs 05/26/17 [History Last Taken Unknown] guaifenesin 100 mg/5 mL oral liquid 10 ml PO Q4H PRN PRN Cough 05/26/17 [History Last Taken Unknown] haloperidol 1 mg tablet 3 mg PO TID anxiety 05/26/17 [History Last Taken 06/05/17 20:45 1] lithium carbonate 300 mg tablet,extended release 300 mg PO BID biopolar 05/26/17 [History Last Taken 06/05/17 20:45 1] magnesium hydroxide 400 mg/5 mL oral suspension 30 ml PO DAILY PRN PRN Constipation 05/26/17 [History Last Taken Unknown] polyethylene glycol 3350 17 gram oral powder packet 17 g PO DAILY constipation 05/26/17 [History Last Taken Unknown] tamsulosin 0.4 mg capsule (Flomax) 0.4 mg PO DAILY urinary retention 05/26/17 [History Last Taken Unknown] atorvastatin 40 mg tablet 40 mg PO QHS hyperlipidemia 05/10/23 [History Last Taken Unknown] cholecalciferol (vitamin D3) 50 mcg (2,000 unit) capsule (Vitamin D3) 4,000 unit PO DAILY vitamin 05/10/23 [History Last Taken Unknown] diphenhydramine HCl 50 mg/mL injection solution 50 mg IM Q6H PRN agitation 11/24 [History Last Taken Unknown] folic acid 400 mcg tablet 400 mcg PO DAILY deficiency 05/10/23 [History Last Taken Unknown] haloperidol lactate 5 mg/mL injection solution 5 mg IM Q3H PRN agitation 0 05/10/23 [History Last Taken Unknown] hydrocortisone 10 mg tablet 10 mg PO BID adrenal insuffienciency 05/10/23 [History Last Taken Unknown] hydrocortisone 5 mg tablet 5 mg PO DAILY adrenal insuffiencien 05/10/23 [History Last Taken Unknown] lactulose 10 gram/15 mL oral solution (Enulose) 20 g PO BID abn labs 05/10/23 [History Last Taken Unknown] levofloxacin 500 mg tablet 500 mg PO DAILY copd 05/10/23 [History Last Taken Unknown] lorazepam 0.5 mg tablet (Ativan) 0.5 mg PO Q6H PRN anxiety 05/10/23 [History Last Taken Unknown] lorazepam 1 mg tablet 1 mg PO TID anxiety 05/10/23 [History Last Taken Unknown] melatonin 3 mg capsule 6 mg PO QHS insom 05/10/23 [History Last Taken Unknown] nicotine (polacrilex) 2 mg buccal lozenge 2 mg mucous membrane Q2H PRN nicotine cravings 05/10/23 [History Last Taken Unknown] nicotine 10 mg inhalation cartridge (Nicotrol) 1 inh inhalation Q2H PRN nicotine cravings 05/10/23 [History Last Taken Unknown] paroxetine HCl 20 mg tablet 20 mg PO DAILY depression 05/10/23 [History Last Taken Unknown] propranolol 80 mg capsule,24 hr,extended release 80 mg PO DAILY bp 05/10/23 [History Last Taken Unknown] Allergy/AdvReac Type Severity Reaction Status Date / Time ciprofloxacin [From Cipro] AdvReac Hives Verified 11/12/15 19:37 codeine AdvReac Hives Verified 11/12/15 19:37 Penicillins AdvReac Hives Verified 11/12/15 19:37 sulfamethoxazole AdvReac Hives Verified 11/12/15 19:37 [From Bactrim] trimethoprim [From Bactrim] AdvReac Hives Verified 11/12/15 19:37 Social History household members: none housing: correction Smoking Status: Current every day smoker tobacco type: cigarettes alcohol intake: never substance use type: does not use Physical Exam Const no apparent distress and average body habitus Constitutional Narrative: Patient makes eye contact and does follow some commands, but not answering questions. HEENT head/scalp atraumatic HEENT Narrative: Edentulous with some temporal wasting. Eyes PERRL and EOMs intact bilaterally Neck full ROM and supple Chest Chest Narrative: Increased AP diameter Resp normal respiratory effort, no retractions and no use of accessory muscles Resp Narrative: Rhonchi noted in bases bilaterally Auscultation: rhonchi; Negative for wheezes Cardio regular rhythm, S1 normal heart sound, S2 normal heart sound, no murmurs, no rub, no gallops and no clicks Rate: bradycardia GI normal to inspection, nondistended, normoactive bowel sounds, soft to palpation and non-tender Extremity Extremity Narrative: Pedal pulses are 2+. Grade 1 clubbing noted General Extremity: clubbing Skin no rashes or lesions noted Neuro Neuro Narrative: Patient refusing to interact with me at this time. Alert and follows some commands. Psych Psych Narrative: Calm currently Medical Records Data Attestation: I reviewed the patient's medical records Lab / Micro Data Attestation: I reviewed the patient's lab results. 05/14/23 06:30 05/14/23 06:30 Labs: Laboratory Results - last 24 hr 05/13/23 12:43: POC Glucose 120 H 05/13/23 16:40: Ammonia 21.0 05/14/23 06:30: WBC 3.6 L, RBC 3.11 L, Hgb 9.4 L, Hct 28.8 L, MCV 92.6, MCH 30.2, MCHC 32.6, RDW Std Deviation 41.0, RDW Coeff of Eyal 12.1, Plt Count 92 L, MPV 10.6, Immature Gran % (Auto) 0.300, Neut % (Auto) 68.7, Lymph % (Auto) 25.7, [place] % (Auto) 5.3, Eos % (Auto) 0.0, Baso % (Auto) 0.0, Absolute Neuts (auto) 2.5, Absolute Lymphs (auto) 0.92, Nucleated RBC % 0, Differential Comment , Platelet Estimate SLT DEC, Sodium 144, Potassium 4.2, Chloride 112 H, Carbon Dioxide 27.0, Anion Gap 5, BUN 28 H, Creatinine 1.13, Estim Creat Clear Calc 67.78, Est GFR (MDRD) Af Amer 84, Est GFR (MDRD) Non-Af 70, BUN/Creatinine Ratio 24.8 H, Glucose 106, Calcium 8.4 L, Phosphorus 3.4, Magnesium 2.7 H, Total Bilirubin 0.30, AST 18, ALT 13 L, Alkaline Phosphatase 48, Total Protein 5.1 L, Albumin 2.4 L, Globulin 2.7, Albumin/Globulin Ratio 0.9 ABG Data ABG results: ABG 05/13/23 13:20 Specimen Type ART Sample Site L Brach pH 7.43 Bicarbonate Actual 23.9 Total CO2 25 Base Excess 0 O2 Saturation 90 L O2 % 4.0 ABG pCO2 36.0 ABG pO2 56 L O2 Delivery Device Not entered Vent Mode Not entered Imaging Personal review of CT scan does show some bronchial thickening with basilar atelectasis/infiltrate. Charges/Coding Visit Charges Inpatient E&M: 96728 Init Hosp L3
[2023-05-14] MEDS: Hydrocortisone 10 MG Tablet 20 MG PO (09:39)
[2023-05-14] MEDS: Folic Acid 1 MG Tablet 0.5 MG PO (09:39)
[2023-05-14] MEDS: Ferrous Sulfate 325 MG Tablet PO (09:39)
[2023-05-14] MEDS: Fludrocortisone Acetate 0.1 MG Tablet 0.2 MG PO (09:39)
[2023-05-14] MEDS: guaiFENesin 10 ML UDC (200MG/10ML) PO (09:46)
[2023-05-14] MEDS: Menthol/Lanolin/Calamine/Znox 113 GM Tube 1 APPLIC TOPICAL ×2 (09:49→14:17)
[2023-05-14] MEDS: Enoxaparin 40 MG/0.4 ML Syringe SC (09:49)
[2023-05-14] MEDS: Lithium Carbonate 300mg Capsule 300 MG PO (09:52)
[2023-05-14] MEDS: Divalproex Sodium 125 MG SPRINKLE 500 MG PO (09:54)
--- NOTE | 2023-05-14 10:16 | CASEMGMT ---
Discharge Planning Confirmed with Neo Lay that ST will be available to patient. SW updated. Valentina Thibodeaux, Discharge Planning Asst.
[2023-05-14] MEDS: Paroxetine 20 MG Tablet PO (10:42)
[2023-05-14] MEDS: Benztropine Mesylate 0.5 MG TABLET PO (10:43)
[2023-05-14] MEDS: Polyethylene Glycol 3350 17 GM PACKET PO (10:43)
[2023-05-14] MEDS: Tamsulosin HCl 0.4 MG Capsule PO (10:43)
[2023-05-14] MEDS: Hydrocortisone 10 MG Tablet PO (14:16)
[2023-05-14] MEDS: Haloperidol 1 MG Tablet 3 MG PO (14:16)
[2023-05-14 14:40] VITALS: BP 121/68; PULSE 52; RESP 20; TEMP 37; O2SAT 90
[2023-05-14 14:46] VITALS: PULSE 52
[2023-05-14 15:00] VITALS: O2SAT 93
--- NOTE | 2023-05-14 15:55 | PCM.TXEXTCAR ---
Diet Diet Order/Speech Therapy: 05/13/23 10:45 Diet: Regular - General Food consistency:: Pureed Liquid Consistency:: Regular/Thin Type of Dietary Supplement:: Ensure Compact Is pt able to select menu?: No Diet Comments: MOIST purees, 2 liquid washes for every bite, ensure compact w/B&D Routine Orders/Code Status O2 Liters per Minute: 3 L at rest and 5 L with exertion O2 Frequency: Continuous Keep PO Greater than or Equal to (%): 89 Routine Lab Work: CBC (1 week) and BMP (1 week) Code Status: DNRCC-A (No intubation) Therapies Weight Bearing: Full weight bearing Physical Therapy: Eval and Treat Occupational Therapy: Eval and Treat Problem/Diagnosis (1) Acute hypoxic respiratory failure: Status: Acute Code(s): J96.01 - Acute respiratory failure with hypoxia (2) Type A influenza: Status: Acute Code(s): J10.1 - Influenza due to other identified influenza virus with other respiratory manifestations (3) History of schizophrenia: Status: Acute Code(s): Z86.59 - Personal history of other mental and behavioral disorders Allergies/Procedures Done in Hospital Allergies ciprofloxacin [From Cipro] Adverse Reaction (Verified 11/12/15 19:37) Hives codeine Adverse Reaction (Verified 11/12/15 19:37) Hives Penicillins Adverse Reaction (Verified 11/12/15 19:37) Hives sulfamethoxazole [From Bactrim] Adverse Reaction (Verified 11/12/15 19:37) Hives trimethoprim [From Bactrim] Adverse Reaction (Verified 11/12/15 19:37) Hives Procedures: EKG and - (MBS/CTA chest) Type of Care/Length of Stay Estimated LOS: Convalescent Care Less Than 30 days Type of Care Needed: Intermediate Rehab Potential: Fair Prognosis: Fair Additional Orders/Day of Discharge Day of Discharge: 05/14/23 Dietary and Speech Recommendations Dietitian Recommendations/Changes: Will continue regular diet for now with consistency/texture as per PLACEMENT SECRETARY; change to cardiac diet as needed as PO improves at meals. Will add ensure compact BID w/ breakfast and dinner meals for tolerance. D/C ensure if PO remains good at meals. Discharge Plan Admission Admit Date/Time: 05/10/23 04:02 Attending Provider: Kirsty Rodarte Primary Care Provider: Mani Balderas Consulting Providers: Roxanne More; Robert Barr; Jonnathan Campuzano; Scott Blandon; Lupillo Porras; Kt Garcia; Antonia Parsons; Jose Jonhson; Sanjuana Wasserman; Tomer Hawkins; Beltran Dubois; Jj Lutz; Cb Amor; Yann Ji Discharge Orders/Prescriptions Prescriptions: No Action albuterol sulfate 2.5 MG/3 ML solution for nebulization 2.5 mg inhalation Q6H PRN PRN (Reason: Sob &/Or Wheezing) calcium carbonate-vitamin D3 [Calcium 600 + D(3)] 1 EACH tablet 1 ea PO BID bisacodyl 10 MG suppository 10 mg RECTAL DAILY PRN PRN (Reason: Constipation) docusate sodium [DOK] 100 MG capsule 100 mg PO DAILY divalproex [Depakote Sprinkles] 125 MG capsule, delayed rel sprinkle 125 mg PO Q8H aripiprazole 5 MG tablet 5 mg PO QHS Cepacol Sore Throat (lisseth-men) 1 EACH lozenge 1 blaire buccal PRN PRN (Reason: Sore Throat) Dulcolax 5 mg PO PRN PRN (Reason: Constipation) acetaminophen [Tylenol] 325 MG tablet 650 mg PO Q4H PRN (Reason: Headache) polyethylene glycol 3350 17 GM powder in packet 17 g PO DAILY lithium carbonate 300 MG tablet extended release 300 mg PO BID haloperidol 1 MG tablet 3 mg PO TID guaifenesin 10 ML liquid 10 ml PO Q4H PRN PRN (Reason: Cough) magnesium hydroxide 30 ML suspension 30 ml PO DAILY PRN PRN (Reason: Constipation) tamsulosin [Flomax] 0.4 MG capsule 0.4 mg PO DAILY fludrocortisone 0.1 MG tablet 0.05 mg PO DAILY@0800 alum-mag hydroxide-simeth [Mag-Al Plus Extra Strength] 30 ML suspension 30 ml PO Q4H PRN PRN (Reason: Indigestion) lorazepam [Ativan] 0.5 mg tablet 0.5 mg PO Q6H PRN (Reason: anxiety) haloperidol lactate 5 mg/mL solution 5 mg IM Q3H PRN (Reason: agitation) diphenhydramine HCl 50 mg/mL solution 50 mg IM Q6H PRN (Reason: agitation) Patient Comments: [NO ORIGINAL SIG] folic acid 400 mcg tablet 400 mcg PO DAILY hydrocortisone 10 mg tablet 10 mg PO BID hydrocortisone 5 mg tablet 5 mg PO DAILY lactulose [Enulose] 10 gram/15 mL solution 20 g PO BID levofloxacin 500 mg tablet 500 mg PO DAILY atorvastatin 40 mg tablet 40 mg PO QHS lorazepam 1 mg tablet 1 mg PO TID melatonin 3 mg capsule 6 mg PO QHS Nicotrol 10 mg cartridge 1 inh inhalation Q2H PRN (Reason: nicotine cravings) nicotine (polacrilex) 2 mg lozenge 2 mg mucous membrane Q2H PRN (Reason: nicotine cravings) paroxetine HCl 20 mg tablet 20 mg PO DAILY cholecalciferol (vitamin D3) [Vitamin D3] 50 mcg (2,000 unit) capsule 4,000 unit PO DAILY propranolol 80 mg capsule,extended release 24 hr 80 mg PO DAILY Referrals / Follow Up: Mani Balderas MD [Primary Care Provider] -
--- NOTE | 2023-05-14 16:05 | PCM.DC.SUM ---
Providers Date of Admission: 05/10/23 Date of Discharge: 05/14/23 Primary Care Physician: Dr. Mani Balderas MD Consultations 05/13/23 16:03 Consult: Restaurant Crew Person / Pulmonary Medicine Routine Consulting Provider: Intensivists/Pulmonary Med Reason for Consult: hypoxia EMERGENT Consult: No MD Notified: Yes Date Notified: 05/13/23 Time Notified: 16:03 Method of Notification: Verbal Reason For Visit: HYPOXIA, COPD/ASTHMA EXAC, INFLUENZA A Diagnosis Discharge Diagnosis (1) Acute hypoxic respiratory failure: Status: Acute Code(s): J96.01 - Acute respiratory failure with hypoxia (2) Type A influenza: Status: Acute Code(s): J10.1 - Influenza due to other identified influenza virus with other respiratory manifestations (3) History of schizophrenia: Status: Acute Code(s): Z86.59 - Personal history of other mental and behavioral disorders Medications at Discharge Home Medications Dulcolax 5 mg PO PRN PRN Constipation 05/26/17 acetaminophen 325 mg tablet (Tylenol) 650 mg PO Q4H PRN Headache 05/26/17 albuterol sulfate 2.5 mg/3 mL (0.083 %) solution for nebulization 2.5 mg inhalation Q6H PRN PRN Sob &/Or Wheezing 05/26/17 aluminum-mag hydroxide-simethicone 400 mg-400 mg-40 mg/5 mL oral susp (Mag-Al Plus Extra Strength) 30 ml PO Q4H PRN PRN Indigestion 05/26/17 aripiprazole 5 mg tablet 5 mg PO QHS blood thinner 05/26/17 benzocaine 15 mg-menthol 3.6 mg lozenges (Cepacol Sore Throat (benzocaine-menthol)) 1 blaire buccal PRN PRN Sore Throat 05/26/17 bisacodyl 10 mg rectal suppository 10 mg RECTAL DAILY PRN PRN Constipation 05/26/17 calcium carbonate 600 mg-vitamin D3 5 mcg (200 unit) tablet (Calcium 600 + D(3)) 1 ea PO BID supplement 05/26/17 divalproex 125 mg capsule,delayed release sprinkle (Depakote Sprinkles) 125 mg PO Q8H schizophrednia 05/26/17 docusate sodium 100 mg capsule (DOK) 100 mg PO DAILY stool softener 05/26/17 fludrocortisone 0.1 mg tablet 0.05 mg PO DAILY@0800 abn labs 05/26/17 guaifenesin 100 mg/5 mL oral liquid 10 ml PO Q4H PRN PRN Cough 05/26/17 haloperidol 1 mg tablet 3 mg PO TID anxiety 05/26/17 lithium carbonate 300 mg tablet,extended release 300 mg PO BID biopolar 05/26/17 magnesium hydroxide 400 mg/5 mL oral suspension 30 ml PO DAILY PRN PRN Constipation 05/26/17 polyethylene glycol 3350 17 gram oral powder packet 17 g PO DAILY constipation 05/26/17 tamsulosin 0.4 mg capsule (Flomax) 0.4 mg PO DAILY urinary retention 05/26/17 atorvastatin 40 mg tablet 40 mg PO QHS hyperlipidemia 05/10/23 cholecalciferol (vitamin D3) 50 mcg (2,000 unit) capsule (Vitamin D3) 4,000 unit PO DAILY vitamin 05/10/23 diphenhydramine HCl 50 mg/mL injection solution 50 mg IM Q6H PRN agitation 05/10/23 folic acid 400 mcg tablet 400 mcg PO DAILY deficiency 05/10/23 haloperidol lactate 5 mg/mL injection solution 5 mg IM Q3H PRN agitation 05/10/23 hydrocortisone 10 mg tablet 10 mg PO BID adrenal insuffienciency 05/10/23 hydrocortisone 5 mg tablet 5 mg PO DAILY adrenal insuffiencien 05/10/23 lactulose 10 gram/15 mL oral solution (Enulose) 20 g PO BID abn labs 05/10/23 lorazepam 0.5 mg tablet (Ativan) 0.5 mg PO Q6H PRN anxiety 05/10/23 lorazepam 1 mg tablet 1 mg PO TID anxiety 05/10/23 melatonin 3 mg capsule 6 mg PO QHS insom 05/10/23 nicotine (polacrilex) 2 mg buccal lozenge 2 mg mucous membrane Q2H PRN nicotine cravings 05/10/23 nicotine 10 mg inhalation cartridge (Nicotrol) 1 inh inhalation Q2H PRN nicotine cravings 05/10/23 paroxetine HCl 20 mg tablet 20 mg PO DAILY depression 05/10/23 levofloxacin 750 mg tablet 750 mg PO DAILY #3 tabs 05/14/23 prednisone 10 mg tablet 10 mg PO DAILY #30 tabs 05/14/23 Hospital Course Operations None Procedures EKG, Modified Barium Swallow and - (Chest x-ray/CTA of the chest) Summary of Care Provided Minutes Spent on Discharge: 41 Hospital Course: Patient is a 62-year-old white male with a history of anoxic injury and dementia who is a resident at a local [facility] who presented to the emergency department at [facility] on 05/10/2023 with acute onset of fever, dyspnea, tachypnea, and hypoxia over the last 24 hours prior to presentation. At the nursing facility they noted accessory muscle use and he had a Tmax of 100.9. Chest x-ray is unremarkable. He was also screened for influenza, COVID, and RSV all of which were unremarkable. In the emergency department he was alert and await and noted to be in mild respiratory distress but does not verbally communicate at baseline. Vital signs on presentation were relatively stable other than his respiratory rate was 27 and he was 84% on room air. He was placed on nasal cannula at 4 L which improved his respiratory status to 94%. CBC showed neutropenia a chronic stable hemoglobin and thrombocytopenia which appears to be chronic as well. Patient was lymphopenic on presentation. On presentation his serum creatinine and BUN were slightly elevated at 21 and 1.35. Lactic acid was unremarkable. Blood cultures were obtained another rapid COVID, flu, RSV panel was performed and this time was noted to be positive for influenza A. Imaging was also concerning for opacities in the lower lobes bilaterally that was suggestive of atelectasis, infection, or aspiration. He was admitted to the medical floor and placed on antibiotics as well as Tamiflu. He was also treated with an increased dose of fludrocortisone due to his history of adrenal insufficiency. Tamiflu was not utilized a but discontinued as it can cause bradycardia which she did developed also, a superimposed bacterial pneumonia was suspected and he was placed on IV antibiotics. At discharge, we transition to Levaquin to complete a 7-day course. His oxygenation remained an issue longer than we initially felt so we checked a CTA of the chest which did not show any PE but did show patchy bilateral infiltrates in the bases and evidence of COPD. Speech therapy also saw the patient and felt like he was aspirating and diagnosed him with severe oral dysphagia and mild pharyngeal dysphagia on a modified barium swallow that was done on 05/13/2023. He will need continued speech therapy at discharge and they recommended a diet for pur?e with thin liquid diet and compensatory strategies as noted in the discharge paperwork. Repeat modified barium swallow should be performed after ongoing speech therapy after discharge. He also had some intermittent bradycardia. Tamiflu was noted to cause bradycardia so this was discontinued and he was also on a beta-kehinde which was discontinued at discharge. He will need ongoing blood pressure monitoring to see if a new antihypertensive will need to be initiated however his blood pressure was stable here while his beta-kehinde was held. His mental status returned to baseline and we were able to wean him to 2 to 3 L of oxygen at rest and 5 L with exertion. We suspect his ongoing hypoxia was related to aspiration, pneumonia, influenza, and pretty significant atelectasis. It was difficult due to his baseline mental status to get him to participate with incentive spirometry and Acapella during his hospital course which led to ongoing persistent atelectasis compromising his oxygenation. We were finally able to stabilize his oxygenation at 2 to 3 L at rest on 05/14/2023. Pulmonary medicine saw him and recommended continuing what we were doing and felt that he was okay for discharge as long as his oxygen saturations remained stable throughout the day which they have. He was discharged in stable condition back to his facility on 05/14/2023. He should follow-up with his primary care physician within the next 1 to 2 weeks. Discharge diagnoses: Acute hypoxic respiratory failure Influenza A Aspiration pneumonia Dysphagia Bradycardia Toxic/metabolic encephalopathy-resolved History of adrenal insufficiency CKD stage II Dementia Schizophrenia Schizoaffective disorder Anxiety and depression BPH with obstruction Hypertension History of vitamin D deficiency Chronic pancytopenia History of IBS with constipation Physical Exam Const alert, no apparent distress and average body habitus Constitutional Narrative: Middle-aged, white male, sitting up in bed, nursing at bedside, patient much more interactive today, follows commands, speech is fairly and unintelligible appears as if he is feeling much better, appears comfortable and nontoxic General Appearance: cooperative, comfortable, well kempt and well developed HEENT normocephalic, head/scalp atraumatic and moist oral mucous membranes Eyes PERRL, EOMs intact bilaterally and conjunctivae normal Neck no lymphadenopathy and supple Neck Narrative: Trachea midline, no thyroid enlargement Resp normal respiratory effort, no retractions, no use of accessory muscles and clear to auscultation bilaterally Resp Narrative: Diminished but clear Auscultation: rhonchi; Negative for crackles or wheezes Cardio regular rate, regular rhythm, S1 normal heart sound, S2 normal heart sound, no murmurs, no rub, no gallops and no clicks GI normal to inspection, nondistended, normoactive bowel sounds, soft to palpation and non-tender Extremity no clubbing, cyanosis or edema Extremity Narrative: Pedal pulses are 2+ Skin no rashes or lesions noted, no wounds, skin turgor normal and no jaundice Neuro moves all extremities and no focal motor deficits Neuro Narrative: Speech is unintelligible but patient follows commands consistently today Sensorium / Orientation: awake and alert Psych Psych Narrative: Calm currently Weight / BMI Weight Weight: 73.6 kg Body Mass Index (BMI) 24.0 ABG / Lab / Microbiology Data 05/14/23 06:30 05/14/23 06:30 Laboratory: Laboratory Results - last 24 hr 05/13/23 16:40: Ammonia 21.0 05/14/23 06:30: WBC 3.6 L, RBC 3.11 L, Hgb 9.4 L, Hct 28.8 L, MCV 92.6, MCH 30.2, MCHC 32.6, RDW Std Deviation 41.0, RDW Coeff of Eyal 12.1, Plt Count 92 L, MPV 10.6, Immature Gran % (Auto) 0.300, Neut % (Auto) 68.7, Lymph % (Auto) 25.7, [place] % (Auto) 5.3, Eos % (Auto) 0.0, Baso % (Auto) 0.0, Absolute Neuts (auto) 2.5, Absolute Lymphs (auto) 0.92, Nucleated RBC % 0, Differential Comment , Platelet Estimate SLT DEC, Sodium 144, Potassium 4.2, Chloride 112 H, Carbon Dioxide 27.0, Anion Gap 5, BUN 28 H, Creatinine 1.13, Estim Creat Clear Calc 67.78, Est GFR (MDRD) Af Amer 84, Est GFR (MDRD) Non-Af 70, BUN/Creatinine Ratio 24.8 H, Glucose 106, Calcium 8.4 L, Phosphorus 3.4, Magnesium 2.7 H, Total Bilirubin 0.30, AST 18, ALT 13 L, Alkaline Phosphatase 48, Total Protein 5.1 L, Albumin 2.4 L, Globulin 2.7, Albumin/Globulin Ratio 0.9 Microbiology: Microbiology 05/10/23 01:49 Mucosa - Nose SARS-CoV-2, Influenza & RSV (PCR) - Final Influenzae A ABG: ABG 05/13/23 13:20 Specimen Type ART Sample Site L Brach pH 7.43 Bicarbonate Actual 23.9 Total CO2 25 Base Excess 0 O2 Saturation 90 L O2 % 4.0 ABG pCO2 36.0 ABG pO2 56 L O2 Delivery Device Not entered Vent Mode Not entered Meaningful Use Info Meaningful Use Diagnoses (Choose all that apply): None applicable Discharge Plan Admission Admit Date/Time: 05/10/23 04:02 Primary Reason for Your Visit: Shortness of breath/fever/hypoxia Attending Provider: Kirsty Rodarte Primary Care Provider: Mani Balderas Consulting Providers: Roxanne More; Robert Barr; Jonnathan Campuzano; Scott Blandon; Lupillo Porras; Kt Garcia; Antonia Parsons; Jose Johnson; Sanjuana Wasserman; Tomer Hawkins; Beltran Dubois; Jj Lutz; Cb Amor; Yann Ji Instructions Additional Instructions / Restrictions: 1. Patient requires ongoing speech therapy at discharge for dysphagia 2. Patient needs supervision while being fed at all times with a diet of moist pur?es, 2 liquid washes for every bite taken and utilization of straws 3. Patient needs to be upright completely while eating and remain upright 30 minutes after eating Discharge Orders/Prescriptions Prescriptions: New levofloxacin 750 mg tablet 750 mg PO DAILY Qty: 3 0RF prednisone 10 mg tablet 10 mg PO DAILY Qty: 30 0RF Rx Instructions: 4 tablets x 3 days, 3 tablets x 3 days, 2 tablets x 3 days, 1 tablet x 3 days Continued albuterol sulfate 2.5 MG/3 ML solution for nebulization 2.5 mg inhalation Q6H PRN PRN (Reason: Sob &/Or Wheezing) calcium carbonate-vitamin D3 [Calcium 600 + D(3)] 1 EACH tablet 1 ea PO BID bisacodyl 10 MG suppository 10 mg RECTAL DAILY PRN PRN (Reason: Constipation) docusate sodium [DOK] 100 MG capsule 100 mg PO DAILY divalproex [Depakote Sprinkles] 125 MG capsule, delayed rel sprinkle 125 mg PO Q8H aripiprazole 5 MG tablet 5 mg PO QHS Cepacol Sore Throat (lisseth-men) 1 EACH lozenge 1 blaire buccal PRN PRN (Reason: Sore Throat) Dulcolax 5 mg PO PRN PRN (Reason: Constipation) acetaminophen [Tylenol] 325 MG tablet 650 mg PO Q4H PRN (Reason: Headache) polyethylene glycol 3350 17 GM powder in packet 17 g PO DAILY lithium carbonate 300 MG tablet extended release 300 mg PO BID haloperidol 1 MG tablet 3 mg PO TID guaifenesin 10 ML liquid 10 ml PO Q4H PRN PRN (Reason: Cough) magnesium hydroxide 30 ML suspension 30 ml PO DAILY PRN PRN (Reason: Constipation) tamsulosin [Flomax] 0.4 MG capsule 0.4 mg PO DAILY fludrocortisone 0.1 MG tablet 0.05 mg PO DAILY@0800 alum-mag hydroxide-simeth [Mag-Al Plus Extra Strength] 30 ML suspension 30 ml PO Q4H PRN PRN (Reason: Indigestion) lorazepam [Ativan] 0.5 mg tablet 0.5 mg PO Q6H PRN (Reason: anxiety) haloperidol lactate 5 mg/mL solution 5 mg IM Q3H PRN (Reason: agitation) diphenhydramine HCl 50 mg/mL solution 50 mg IM Q6H PRN (Reason: agitation) Patient Comments: [NO ORIGINAL SIG] folic acid 400 mcg tablet 400 mcg PO DAILY hydrocortisone 10 mg tablet 10 mg PO BID hydrocortisone 5 mg tablet 5 mg PO DAILY lactulose [Enulose] 10 gram/15 mL solution 20 g PO BID atorvastatin 40 mg tablet 40 mg PO QHS lorazepam 1 mg tablet 1 mg PO TID melatonin 3 mg capsule 6 mg PO QHS Nicotrol 10 mg cartridge 1 inh inhalation Q2H PRN (Reason: nicotine cravings) nicotine (polacrilex) 2 mg lozenge 2 mg mucous membrane Q2H PRN (Reason: nicotine cravings) paroxetine HCl 20 mg tablet 20 mg PO DAILY cholecalciferol (vitamin D3) [Vitamin D3] 50 mcg (2,000 unit) capsule 4,000 unit PO DAILY Discontinued levofloxacin 500 mg tablet 500 mg PO DAILY propranolol 80 mg capsule,extended release 24 hr 80 mg PO DAILY Referrals / Follow Up: Mani Balderas MD [Primary Care Provider] - Within 2 Weeks Disposition Disposition (needs filled in before D/C Order can be placed): NonSkilled NH/Intermed Care Charges/Coding Visit Charges Inpatient E&M: 96660 SNF Disch >30 Min
== END 2023-05-14 17:45 | disposition intermediate care facility (04) | DRG 139 ==
LOC: ED 03:56 → MS3 04:18
PROVIDERS: Internal Medicine; Admitting Provider Family Medicine; Emergency Provider Emergency Medicine; PCP Family Medicine; Visit Provider Internal Medicine
DX: J13 Pneumonia due to Streptococcus pneumoniae (principal); J96.00 Acute respiratory failure, unspecified whether with hypoxia or hypercapnia; D61.818 Other pancytopenia; G92.8 Other toxic encephalopathy; R13.11 Dysphagia, oral phase; F25.9 Schizoaffective disorder, unspecified; N18.30 Chronic kidney disease, stage 3 unspecified; G40.909 Epilepsy, unspecified, not intractable, without status epilepticus; J44.1 Chronic obstructive pulmonary disease with (acute) exacerbation; J69.0 Pneumonitis due to inhalation of food and vomit; J44.9 Chronic obstructive pulmonary disease, unspecified; F03.918 Unspecified dementia, unspecified severity, with other behavioral disturbance; D50.9 Iron deficiency anemia, unspecified; I12.9 Hypertensive chronic kidney disease with stage 1 through stage 4 chronic kidney disease, or unspecified chronic kidney disease; F32.A Depression, unspecified; E27.40 Unspecified adrenocortical insufficiency; K58.9 Irritable bowel syndrome, unspecified; E78.5 Hyperlipidemia, unspecified; J10.1 Influenza due to other identified influenza virus with other respiratory manifestations; J98.01 Acute bronchospasm; R00.1 Bradycardia, unspecified; F41.9 Anxiety disorder, unspecified; D69.6 Thrombocytopenia, unspecified; N13.8 Other obstructive and reflux uropathy; Z51.5 Encounter for palliative care; Z79.52 Long term (current) use of systemic steroids; Z66 Do not resuscitate; N40.1 Benign prostatic hyperplasia with lower urinary tract symptoms; Z79.01 Long term (current) use of anticoagulants
CPT/HCPCS: 36415; 36600; 71045; 71275; 74230; 80048; 80053; 82140; 82803; 82962; 83605; 83735; 83880; 84100; 84145; 84484; 85025; 87040; 87631; 92526; 92610; 92611; 93005; 94640; 94668; 99285; J7030; Q9967; A4216

== ENCOUNTER 2024-08-18 18:28 | Inpatient (IN) | payer MEDICAID, SELFPAY ==
[2024-08-18] VITALS (23 sets, daily range): BP systolic 68–115; BP diastolic 39–89; PULSE 58–87; RESP 12–23; TEMP 36.6–37.2; O2SAT 83–100; BMI 22.3
--- NOTE | 2024-08-18 18:51 | EKG12_ITS ---
Test Reason : DYSRHYTHMIA Blood Pressure : */* mmHG Vent. Rate : 60 BPM Atrial Rate : 60 BPM P-R Int : 138 ms QRS Dur : 92 ms QT Int : 404 ms P-R-T Axes : 67 81 99 degrees QTcB Int : 404 ms Normal sinus rhythm Nonspecific T wave abnormality Abnormal ECG When compared with ECG of 13-May-2023 12:42, Sinus rhythm has replaced Junctional rhythm Nonspecific T wave abnormality, worse in Lateral leads Confirmed by SHELLEY PAUL, BHARGAV ([id number]), content editor YEIMY GIMENEZ ([id number]) on 08/24/2024 1:58:17 PM Referred By: Confirmed By: BHARGAV ROSA MD
--- NOTE | 2024-08-18 19:06 | RAD_ITS ---
PROCEDURE: CHEST 1 VIEW (PORTABLE) 08/18/2024 REASON FOR EXAM: BIBASILAR RALES TECHNIQUE: Frontal view of the chest. COMPARISON: 05/12/2023. FINDINGS: The cardiac and mediastinal contours are normal. The lungs are clear. RAD/Chest 1 View (Portable) IMPRESSION: NEGATIVE SINGLE VIEW OF THE CHEST. Reading Location: [place] [id number]
[2024-08-18 19:11] LABS: Bacteria 0 SEEN /hpf (None Seen); Mucous, Urine 0 SEEN /hpf (<or=2+); Squamous Epithelial Cells - UA 0 SEEN /hpf (0-5)
[2024-08-18] MEDS: 0.9% Normal Saline (1000mL) 1,000 ML 1000 ML IV ×2 (19:11→22:10)
[2024-08-18 19:22] LABS: Color, Urine Yellow (Yellow); Glucose, Dipstick Normal (Normal); Ketone-Dipstick 5 mg/dl (Negative); Leukocyte Esterase-Dipstick 500 /ul (Negative); Nitrite-Dipstick Negative (Negative); Occult Blood-Urine 25 /ul (Negative); Protein-Dipstick 30 mg/dl (Negative); Specific Gravity, Urine 1.015 (1.002-1.030); Urine Bilirubin Dipstick Negative (Negative); Urine Clarity Sl. Cloudy (Clear); Urine Urobilinogen 1 mg/dl (Normal)
[2024-08-18 19:25] LABS: Absolute Lymphocyte Count 0.85 X10^3/uL (0.83-4.51); Absolute Neutrophil Count 6.2 X10^3/uL (2.0-7.7); Basophil# 0.01 X10^3/uL; Basophil% 0.1 % (0-1); Eosinophils% 1.3 % (0-5); Hematocrit 29.7 % (40-54); Hemoglobin 9.9 g/dL (13.0-16.5); Lymphocyte # 0.85 X10^3/ul (0.83-4.51); Mean Corp Hgb Conc 33.3 g/dL (32-36); Mean Corpuscular Hgb 30.7 pg (27.0-32.0); Mean Corpuscular Volume 92.2 fL (80-94); Mean Platelet Vol. 10.8 fl (6.2-12.0); Monocyte# 0.52 X10^3/uL; Monocyte% 6.7 % (0-10); NRBC Flagged by Analyzer 0 % (0-5); Neutrophil # 6.22 X10^3/uL (2.7-7.7); Neutrophil % 80.5 % (47-70); Platelet Count 114 K/mm3 (150-450); RBC Distribution Width CV 12.3 % (11.6-14.6); RBC Distribution Width SD 41.1 fl (35.1-43.9); Red Blood Count 3.22 M/mm3 (4.6-6.2); White Blood Count 7.7 K/mm3 (4.4-11.0)
[2024-08-18 19:33] LABS: Allen Test Positive; Base Excess 2 mmol/L (-2 to +2); Bicarbonate 26.5 mmol/L (22-26); Blood Gas Specimen Type ART; Mode Not entered; O2 Delivery Device Room Air; PO2 68 mmHG (75-100); SITE L Radial; SO2 94 % (95-99); Total Carbon Dioxide 28 mmol/L; pCO2 40.8 mmHg (35-45); pH 7.42 (7.35-7.45)
[2024-08-18] MEDS: 0.9% Normal Saline (1000mL) 1,000 ML 999 ML IV (19:35)
[2024-08-18 19:39] LABS: Red Blood Cells-Urine 0-5 SEEN /hpf (0-5); White Blood Cells 50-100 SEEN /hpf (0-5)
[2024-08-18 19:48] LABS: ALB/GLOB Ratio 1.8 RATIO (0.9-2.4); AST(SGOT) 15 U/L (<=37); Alanine Aminotransfer ALT/SGPT 10 U/L (<=46); Albumin, Serum 3.9 g/dL (3.4-4.8); Alkaline Phosphatase 117 U/L (40-129); Anion Gap 8 (5-15); BUN 22 mg/dL (4-19); BUN/Creat Ratio 18.2 RATIO (10-20); Calcium,Total 9.6 mg/dL (7.6-11.0); Carbon Dioxide 25.1 mmol/L (21.0-32.0); Chloride 107 mmol/L (98-108); Creatinine, Serum 1.19 mg/dL (0.70-1.20); EST Glomerular Filtration Rate 69 (>60); Estimated Creatinine Clearance 61.56 ml/min (50-250); Globulin 2.2 g/dL (2.2-4.2); Glucose 137 mg/dL (70-99); Lactic Acid 1.3 mmol/L (0.0-2.0); Potassium 4.1 mmol/L (3.3-5.1); Sodium Level 139 mmol/L (133-145); Total Bilirubin 0.46 mg/dL (0.00-1.30)
[2024-08-18] MEDS: Meropenem 1 GM in 0.9% Normal Saline (100mL MB+) 100 ML IV (21:45)
--- NOTE | 2024-08-18 22:23 | ED.RN ---
Attempted to call Praveena Kana w/ no answer. Instructed number to call ED .
--- NOTE | 2024-08-18 22:27 | EX.ED.CRITCA ---
HPI History of Present Illness Chief Complaint: Alt LOC Detail of Chief Complaint: Altered mental status and hypotension Informant: EMS and SNF Onset/Context/Timing Onset: Today (Normally awake and alert but not oriented.) Context: Sudden Onset Timing: Continuous Quality: Patient is a rise hypotensive, altered mental status Location: Cardiovascular generalized Current Severity: Unable to determine Maximum Severity: Unable to determine Worsened by: Unknown Relieved by: Nothing Associated Symptoms Associated Symptoms: other (Unable to determine) Narrative Narrative: Patient is an elderly male. He was last admitted May 2023. Dr. Rodarte's discharge summary was reviewed. He was admitted for acute hypoxic respiratory failure due to influenza type A. He does have history of schizophrenia and personal history of other mental disorders and behavioral disorders. He arrived by EMS because of altered mental status. He is not awake or alert. He is combative at times. Unable to obtain a history from patient. Prior similar symptoms: No Recent Illness/Hospitalization: No [facility] Medical History (Updated 08/19/24 @ 10:[address] Jose Olvera MD) History of schizophrenia Bradycardia Asthma GERD (gastroesophageal reflux disease) History of anoxic brain injury Adrenal insufficiency COPD (chronic obstructive pulmonary disease) Dysphagia BPH (benign prostatic hyperplasia) Polyarthropathy IBS (irritable bowel syndrome) Schizoaffective disorder Schizophrenia Mood disorder Anxiety and depression Chronic anemia HLD (hyperlipidemia) HTN (hypertension) Seizure disorder Dementia Hydrocele Home Medications ?Medication ?Instructions ?Recorded ?Last Taken ?Type acetaminophen 325 mg tablet 650 mg PO Q4H PRN Headache 05/26/17 Unknown History (Tylenol) albuterol sulfate 2.5 mg/3 mL 2.5 mg inhalation Q6H PRN PRN Sob 05/26/17 Unknown History (0.083 %) solution for nebulization &/Or Wheezing aluminum-mag hydroxide-simethicone 30 ml PO Q4H PRN PRN Indigestion 05/26/17 Unknown History 400 mg-400 mg-40 mg/5 mL oral susp (Mag-Al Plus Extra Strength) aripiprazole 5 mg tablet 5 mg PO QHS blood thinner 05/26/17 06/05/17 20:45 History 1 benzocaine 15 mg-menthol 3.6 mg 1 blaire buccal PRN PRN Sore Throat 05/26/17 Unknown History lozenges (Cepacol Sore Throat (benzocaine-menthol)) bisacodyl 10 mg rectal suppository 10 mg RECTAL DAILY PRN PRN 05/26/17 Unknown History Constipation divalproex 125 mg capsule,delayed 125 mg PO Q8H schizophrednia 05/26/17 06/05/17 20:45 History release sprinkle (Depakote 1 Sprinkles) fludrocortisone 0.1 mg tablet 0.05 mg PO DAILY@0800 abn labs 05/26/17 Unknown History guaifenesin 100 mg/5 mL oral liquid 10 ml PO Q4H PRN PRN Cough 05/26/17 Unknown History haloperidol 1 mg tablet 1 mg PO TID anxiety 05/26/17 06/05/17 20:45 History 1 lithium carbonate 300 mg 300 mg PO BID biopolar 05/26/17 06/05/17 20:45 History tablet,extended release 1 magnesium hydroxide 400 mg/5 mL 30 ml PO DAILY PRN PRN Constipation 05/26/17 Unknown History oral suspension polyethylene glycol 3350 17 gram 17 g PO DAILY constipation 05/26/17 Unknown History oral powder packet tamsulosin 0.4 mg capsule (Flomax) 0.4 mg PO DAILY urinary retention 05/26/17 Unknown History atorvastatin 40 mg tablet 40 mg PO QHS hyperlipidemia 05/10/23 Unknown History diphenhydramine HCl 50 mg/mL 50 mg IM Q6H PRN agitation 05/10/23 Unknown History injection solution folic acid 400 mcg tablet 400 mcg PO DAILY deficiency 05/10/23 Unknown History haloperidol lactate 5 mg/mL 5 mg IM Q3H PRN agitation 05/10/23 Unknown History injection solution hydrocortisone 10 mg tablet 10 mg PO BID adrenal 05/10/23 Unknown History insuffienciency hydrocortisone 5 mg tablet 5 mg PO DAILY adrenal insuffiencien 05/10/23 Unknown History lactulose 10 gram/15 mL oral 20 g PO BID abn labs 05/10/23 Unknown History solution (Enulose) lorazepam 0.5 mg tablet (Ativan) 0.5 mg PO Q6H PRN anxiety 05/10/23 Unknown History lorazepam 1 mg tablet 1 mg PO TID anxiety 05/10/23 Unknown History melatonin 3 mg capsule 6 mg PO QHS insom 05/10/23 Unknown History nicotine (polacrilex) 2 mg buccal 2 mg mucous membrane Q2H PRN 05/10/23 Unknown History lozenge nicotine cravings nicotine 10 mg inhalation 1 inh inhalation Q2H PRN nicotine 05/10/23 Unknown History cartridge (Nicotrol) cravings paroxetine HCl 20 mg tablet 20 mg PO DAILY depression 05/10/23 Unknown History aripiprazole 10 mg tablet 10 mg PO DAILY 08/18/24 Unknown History benztropine 1 mg tablet 1 mg PO BID 08/18/24 Unknown History calcium carbonate (Calcium 500) 500 mg PO BID 08/18/24 Unknown History cholecalciferol (vitamin D3) 50 4,000 unit PO DAILY 08/18/24 Unknown History mcg (2,000 unit) tablet (Vitamin D3) docusate sodium 100 mg capsule 100 mg PO DAILY 08/18/24 Unknown History (Col-Rite) loperamide 2 mg tablet 4 mg PO .COMPLEX PRN loose stool 08/18/24 Unknown History paroxetine HCl 20 mg tablet (Paxil) 20 mg PO DAILY 08/18/24 Unknown History propranolol 80 mg tablet 80 mg PO BID 08/18/24 Unknown History Allergy/AdvReac Type Severity Reaction Status Date / Time ciprofloxacin (From Cipro) AdvReac Hives Verified 11/12/15 19:37 codeine AdvReac Hives Verified 11/12/15 19:37 Penicillins AdvReac Hives Verified 11/12/15 19:37 sulfamethoxazole (From AdvReac Hives Verified 11/12/15 19:37 Bactrim) trimethoprim (From Bactrim) AdvReac Hives Verified 11/12/15 19:37 Social History household members: none housing: senior living Smoking Status: Current every day smoker tobacco type: cigarettes alcohol intake: never substance use type: does not use ROS ROS ED Review of Systems ROS Unobtainable: due to mental status EXAM Physical Exam Const Vital Signs: 08/18/24 18:29 08/18/24 18:41 08/18/24 18:41 Temperature 97.9 F 97.9 F Temperature Source Temporal Temporal Pulse Rate 62 58 L 62 Respiratory Rate 14 16 14 Blood Pressure 84/41 L 109/57 L 84/41 L Blood Pressure Mean 55 74 55 Pulse Ox 92 99 92 Oxygen Delivery Method Room Air Room Air 08/18/24 19:11 08/18/24 19:35 08/18/24 19:46 Temperature Temperature Source Pulse Rate 66 65 Respiratory Rate 18 Blood Pressure 87/50 L 88/65 L 106/52 L Blood Pressure Mean 62 72 70 Pulse Ox 93 Oxygen Delivery Method 08/18/24 21:00 08/18/24 21:30 08/18/24 21:35 Temperature Temperature Source Pulse Rate 87 61 61 Respiratory Rate 18 20 H 16 Blood Pressure 110/65 105/89 H Blood Pressure Mean 80 94 Pulse Ox 98 98 Oxygen Delivery Method Room Air Room Air 08/18/24 21:44 08/18/24 21:45 08/18/24 21:59 Temperature 98.9 F 98.7 F Temperature Source Axillary Oral Pulse Rate 60 60 63 Respiratory Rate 20 H 16 12 Blood Pressure 94/46 L 94/46 L 90/65 Blood Pressure Mean 62 61 73 Pulse Ox 98 83 98 Oxygen Delivery Method Room Air Room Air 08/18/24 22:00 08/18/24 22:00 08/18/24 22:02 Temperature Temperature Source Pulse Rate 62 61 63 Respiratory Rate 14 14 15 Blood Pressure 90/65 83/39 L 90/65 Blood Pressure Mean 73 50 75 Pulse Ox 99 Oxygen Delivery Method Room Air 08/18/24 22:14 08/18/24 22:15 08/18/24 22:30 Temperature 98.9 F Temperature Source Axillary Pulse Rate 61 60 61 Respiratory Rate 18 20 H 14 Blood Pressure 91/47 L 91/47 L 68/44 L Blood Pressure Mean 61 61 49 Pulse Ox 98 Oxygen Delivery Method Room Air 08/18/24 22:34 08/18/24 22:36 08/18/24 22:45 Temperature Temperature Source Pulse Rate 61 61 63 Respiratory Rate 16 17 20 H Blood Pressure 99/72 99/72 115/77 Blood Pressure Mean 78 81 87 Pulse Ox 94 97 Oxygen Delivery Method Room Air Room Air 08/18/24 23:00 08/18/24 23:00 08/18/24 23:15 Temperature Temperature Source Pulse Rate 64 64 66 Respiratory Rate 21 H 21 H 23 H Blood Pressure Blood Pressure Mean Pulse Ox 100 100 98 Oxygen Delivery Method 08/18/24 23:27 08/18/24 23:30 Temperature 98.9 F Temperature Source Pulse Rate 64 65 Respiratory Rate 16 19 H Blood Pressure 115/77 114/62 Blood Pressure Mean 89 79 Pulse Ox 100 92 Oxygen Delivery Method Room Air Positive well nourished, well developed and unkempt Constitutional Narrative: Patient is hypotensive. Patient received total of 2 L of fluid which is approximately 30 cc/kg. He still remains hypotensive. General Appearance ED: unkempt and well developed; Negative for pallor HEENT normocephalic and atraumatic; Negative for cyanosis of lips/distal nose or tenderness Eyes PERRL and EOMs intact bilaterally General Eye ED: Negative for pale conjunctiva or scleral icterus Neck full ROM, no lymphadenopathy and no JVD Resp Resp Narrative: Respiratory effort is normal. Patient has bibasilar rales. There is no expiratory wheezing. Breath sounds are symmetric. Cardio regular rate, regular rhythm, S1 normal heart sound, S2 normal heart sound and no murmurs GI non-tender, non-distended and no masses Auscultation: hypoactive bowel sounds Palpation: soft Back/Spine no CVA tenderness Back/Spine Narrative: Patient does not grimace or withdrawal to palpation of the right or left CVA region. Extremity Extremity Narrative: There is no clubbing or cyanosis noted. Capillary refill is 2 to 3 seconds. Neuro No oriented x3 and CN's II-XII intact bilaterally Sensorium / Orientation: confused and stuporous; Negative for alert, oriented to person, oriented to place or oriented to time Speech: Negative for speech normal Psych Appearance: unkempt Attitude: agitated Skin General Skin Exam: Negative for jaundice or pallor Lesions: no lesions Rashes: no rashes Sepsis Attestation Sepsis Alert: Yes Sepsis Attestation: Agree w/Sepsis Date exam was performed: 08/18/24 Time exam was performed: 19:15 Possible Source of Sepsis: Other (Suspect urine) Sepsis Organ Dysfunction Criteria Present: SBP < 90 mmHg or MAP < 65 mmHg and New/Unexplained change in mental status Fluid Resuscitation Fluid resuscitation indicated?: Yes Fluid Resuscitation ordered: 30 ml/kg fluid bolus ordered Amount of fluid ordered: 2,000 Sepsis Note Date exam was performed: 08/18/24 Time exam was performed: 22:12 Sepsis Attestation: Sepsis re-evaluation was performed Response to fluids: Non Fluid responsive hypotension and Vasopressors started MDM MDM MDM Narrative Medical decision making narrative: Patient unable to contribute to history and physical. Patient with altered mental status. He is hypotensive. History and physical is very limited. Will undertake metabolic sepsis workup. There is no history of trauma. Review of prior records indicates she has had lower lobe pneumonia in the past and influenza. Lab Data Lab results narrative: White count is normal. Patient is mildly anemic with normal indices. Comprehensive metabolic panel is marked for glucose of 137 with normal CO2 anion gap. BUN is slightly elevated 22. Urine reveals pyuria with no bacteria. This was a cath specimen. Labs: Laboratory Results - last 24 hr 08/18/24 18:59 WBC 7.7 RBC 3.22 L Hgb 9.9 L Hct 29.7 L MCV 92.2 MCH 30.7 MCHC 33.3 RDW Std Deviation 41.1 RDW Coeff of Eyal 12.3 Plt Count 114 L MPV 10.8 Immature Gran % (Auto) 0.400 Neut % (Auto) 80.5 H Lymph % (Auto) 11.0 L [place] % (Auto) 6.7 Eos % (Auto) 1.3 Baso % (Auto) 0.1 Absolute Neuts (auto) 6.2 Absolute Lymphs (auto) 0.85 Nucleated RBC % 0 D-Dimer Quant (PE/DVT) 9.09 H* Sodium 139 Potassium 4.1 Chloride 107 Carbon Dioxide 25.1 Anion Gap 8 BUN 22 H Creatinine 1.19 Estim Creat Clear Calc 61.56 Est GFR (MDRD) Non-Af 69 BUN/Creatinine Ratio 18.2 Glucose 137 H Hemoglobin A1c 5.2 Lactic Acid 1.3 Calcium 9.6 Total Bilirubin 0.46 AST 15 ALT 10 Alkaline Phosphatase 117 Total Protein 6.0 Albumin 3.9 Globulin 2.2 Albumin/Globulin Ratio 1.8 TSH 1.040 Urine Color Yellow Urine Clarity Sl. Cloudy Urine pH 6.0 Ur Specific [place] 1.015 Urine Protein 30 H Urine Glucose (UA) Normal Urine Ketones 5 H Urine Occult Blood 25 H Urine Nitrite Negative Urine Bilirubin Negative Urine Urobilinogen 1 H Ur Leukocyte Esterase 500 H Urine RBC 0-5 SEEN Urine WBC 50-100 SEEN Ur Squamous Epith Cells 0 SEEN Urine Bacteria 0 SEEN Urine Mucus 0 SEEN Urine Opiates Screen Cancelled U Buprenorphine Qual Cancelled Ur Oxycodone Screen Cancelled Urine Methadone Screen Cancelled Urine Fentanyl Screen Cancelled Ur Barbiturates Screen Cancelled Valproic Acid 17 L Ur Phencyclidine Scrn Cancelled Ur Amphetamines Screen Cancelled U Benzodiazepines Scrn Cancelled [place] Cancelled Urine Cocaine Screen Cancelled U Cannabinoids Screen Cancelled Ethyl Alcohol < 10.1 ABG Data ABG results: ABG 08/18/24 19:29 Specimen Type ART Sample Site L Radial pH 7.42 Bicarbonate Actual 26.5 H Total CO2 28 Base Excess 2 O2 Saturation 94 L ABG pCO2 40.8 ABG pO2 68 L Cory Test Positive O2 Delivery Device Room Air Vent Mode Not entered Radiography Chest X-Ray - ED: 1 View and Read by ED Physician (Single view chest x-ray reveals suboptimal view. Cardiac silhouette size normal. No evidence of infiltrate. No evidence of effusion. [place] is unremarkable. Osseous structures are unremarkable.) Diagnostic Testing: Clinical Impression(s) from Imaging Studies Chest X-Ray 08/18/24 19:06 IMPRESSION: NEGATIVE SINGLE VIEW OF THE CHEST. Reading Location: [place] [id number] EKG Initial EKG: Attestation: I personally reviewed and interpreted this EKG as follows: Interpretation: Sinus Rhythm (Rate is 60. There is no ossific ST-T wave changes which is artifact. TX interval is 138 ms. QRS duration 92 ms. QT duration 0.4 ms. [place] is normal.) Management Discussion w/another healthcare provider: Hospitalist (Case was discussed with Dr. Robert Gomes. He requested his CTA of the chest based on his ABG and CT of the abdomen and pelvis with IV contrast to assess for any intra-abdominal infection since there is no clear source at this point.) Treatment and Re-Evaluation Narrative: Since patient remained hypotensive additional fluids were ordered as well as peripheral Levophed. Reluctant to attempt central line because of patient's agitation. He would require sedation and concerned with potential risks. If he does not respond to peripheral Levophed will sedate with ketamine and placed central line. Since he has pyuria he was treated with meropenem. He has hives to penicillin as well as ciprofloxacin and Bactrim. Case was discussed with the hospitalist. Will inform the night physician to contact the hospitalist after CTA and CT of the abdomen pelvis have been interpreted by radiologist. Procedures Other Procedures Procedure(s): Straight catheter urine because of significant hydro status. Nurses were unable to Him. Critical Care Time Critical Care Time: Yes Critical care time (excluding procedures): 30-74 minutes (32), Including time spent: (History, physical, documentation, review of prior records, independent interpretation of laboratories alts, treatment for hypotensive unresponsive to fluid boluses.), Discussing w/Consultants and Arranging Admission or Transfer Discharge Plan Dx/Rx/DC Orders Clinical Impression: Acute hypotension, Pyuria, Acute alteration in mental status, Anemia, Thrombocytopenia, Prerenal azotemia, Ketosis, Closed intertrochanteric fracture of left femur Disposition Disposition: Acute Care Hospital [facility] Discharge Date/Time: 08/19/24 01:23
[2024-08-18] MEDS: Norepinephrine Bit/0.9% NaCl 8 MG/250 ML IV.SOLN 9.4 MG CONT INF (22:30)
--- NOTE | 2024-08-18 23:22 | PCM.HP.STD ---
[facility] - General General Date of Admission: 08/19/24 Date of Service: 08/18/24 Chief Complaint: Altered Mental Status and Hypotension. HPI Narrative KIMMY BRITO, is a 63 M with a past medical history of essential hypertension; on propranolol twice daily, hyperlipidemia; on atorvastatin, history of tobacco abuse with subsequent asthma/COPD; on as needed albuterol plus nicotine replacement, anoxic brain injury, seizure disorder; on divalproex, brain injury dementia of unclear type; with chronic schizophrenia with schizoaffective disorder on aripiprazole haloperidol and lithium carbonate twice daily, generalized anxiety; on lorazepam every 6 hours as needed plus diphenhydramine IM every 6 hours as needed agitation, chronic depression; on paroxetine, chronic oral dysphagia, adrenal insufficiency; on fludrocortisone and hydrocortisone twice daily, IBS; of constipation type on lactulose twice daily, BPH; with history of obstructive uropathy on tamsulosin, history of hydrocele, CKD; stage II, chronic pancytopenia with superimposed iron deficiency anemia, history of vitamin D deficiency, OA; with polyarthropathy and history of admission here from May 10, 2023 to May 14, 2019 for for acute hypoxic respiratory failure due to a combination of influenza A and aspiration pneumonia in setting of previously known schizophrenia complicated by toxic encephalopathy who presents to [facility] ER with staff at his facility noting altered mental status and hypotension. Mr. Brito is not a fully reliable historian at this time so information was gathered from chart, medical staff and computer. According to the records patient is normally awake and alert but earlier today he was noted to have a sudden onset of confusion and agitation prompting him to be sent in for further evaluation and treatment. In the ER he was noted to have a UA positive for evidence of Acute Cystitis; without hematuria complicated by clinical evidence of Hypotension of 84/41 mmHg present on admission indicative of possible Sepsis complicated by ABG that revealed pH 7.42/pCO2 40.8 mmHg/PaO2 68 mmHg/HCO3 28 mmol/L on RA indicative of Acute Respiratory Insufficiency with a corresponding CXR that revealed cardiac and mediastinal contours are normal with clear lungs and a critically elevated D-dimer of 9.09 present on admission with CTA of chest pending at this time. He was then admitted to the ICU for treatment under the Sepsis protocol for ongoing care for status is expected to extend beyond 2 midnights. [facility] Medical History (Updated 08/19/24 @ 04:[address] Robert Huizar, DO) History of schizophrenia Bradycardia Asthma GERD (gastroesophageal reflux disease) History of anoxic brain injury Adrenal insufficiency COPD (chronic obstructive pulmonary disease) Dysphagia BPH (benign prostatic hyperplasia) Polyarthropathy IBS (irritable bowel syndrome) Schizoaffective disorder Schizophrenia Mood disorder Anxiety and depression Chronic anemia HLD (hyperlipidemia) HTN (hypertension) Seizure disorder Dementia Hydrocele Home Medications ?Medication ?Instructions ?Recorded ?Last Taken ?Type acetaminophen 325 mg tablet 650 mg PO Q4H PRN Headache 05/26/17 Unknown History (Tylenol) albuterol sulfate 2.5 mg/3 mL 2.5 mg inhalation Q6H PRN PRN Sob 05/26/17 Unknown History (0.083 %) solution for nebulization &/Or Wheezing aluminum-mag hydroxide-simethicone 30 ml PO Q4H PRN PRN Indigestion 05/26/17 Unknown History 400 mg-400 mg-40 mg/5 mL oral susp (Mag-Al Plus Extra Strength) aripiprazole 5 mg tablet 5 mg PO QHS blood thinner 05/26/17 06/05/17 20:45 History 1 benzocaine 15 mg-menthol 3.6 mg 1 blaire buccal PRN PRN Sore Throat 05/26/17 Unknown History lozenges (Cepacol Sore Throat (benzocaine-menthol)) bisacodyl 10 mg rectal suppository 10 mg RECTAL DAILY PRN PRN 05/26/17 Unknown History Constipation divalproex 125 mg capsule,delayed 125 mg PO Q8H schizophrednia 05/26/17 06/05/17 20:45 History release sprinkle (Depakote 1 Sprinkles) fludrocortisone 0.1 mg tablet 0.05 mg PO DAILY@0800 abn labs 05/26/17 Unknown History guaifenesin 100 mg/5 mL oral liquid 10 ml PO Q4H PRN PRN Cough 05/26/17 Unknown History haloperidol 1 mg tablet 1 mg PO TID anxiety 05/26/17 06/05/17 20:45 History 1 lithium carbonate 300 mg 300 mg PO BID biopolar 05/26/17 06/05/17 20:45 History tablet,extended release 1 magnesium hydroxide 400 mg/5 mL 30 ml PO DAILY PRN PRN Constipation 05/26/17 Unknown History oral suspension polyethylene glycol 3350 17 gram 17 g PO DAILY constipation 05/26/17 Unknown History oral powder packet tamsulosin 0.4 mg capsule (Flomax) 0.4 mg PO DAILY urinary retention 05/26/17 Unknown History atorvastatin 40 mg tablet 40 mg PO QHS hyperlipidemia 05/10/23 Unknown History diphenhydramine HCl 50 mg/mL 50 mg IM Q6H PRN agitation 05/10/23 Unknown History injection solution folic acid 400 mcg tablet 400 mcg PO DAILY deficiency 05/10/23 Unknown History haloperidol lactate 5 mg/mL 5 mg IM Q3H PRN agitation 05/10/23 Unknown History injection solution hydrocortisone 10 mg tablet 10 mg PO BID adrenal 05/10/23 Unknown History insuffienciency hydrocortisone 5 mg tablet 5 mg PO DAILY adrenal insuffiencien 05/10/23 Unknown History lactulose 10 gram/15 mL oral 20 g PO BID abn labs 05/10/23 Unknown History solution (Enulose) lorazepam 0.5 mg tablet (Ativan) 0.5 mg PO Q6H PRN anxiety 05/10/23 Unknown History lorazepam 1 mg tablet 1 mg PO TID anxiety 05/10/23 Unknown History melatonin 3 mg capsule 6 mg PO QHS insom 05/10/23 Unknown History nicotine (polacrilex) 2 mg buccal 2 mg mucous membrane Q2H PRN 05/10/23 Unknown History lozenge nicotine cravings nicotine 10 mg inhalation 1 inh inhalation Q2H PRN nicotine 05/10/23 Unknown History cartridge (Nicotrol) cravings paroxetine HCl 20 mg tablet 20 mg PO DAILY depression 05/10/23 Unknown History aripiprazole 10 mg tablet 10 mg PO DAILY 08/18/24 Unknown History benztropine 1 mg tablet 1 mg PO BID 08/18/24 Unknown History calcium carbonate (Calcium 500) 500 mg PO BID 08/18/24 Unknown History cholecalciferol (vitamin D3) 50 4,000 unit PO DAILY 08/18/24 Unknown History mcg (2,000 unit) tablet (Vitamin D3) docusate sodium 100 mg capsule 100 mg PO DAILY 08/18/24 Unknown History (Col-Rite) loperamide 2 mg tablet 4 mg PO .COMPLEX PRN loose stool 08/18/24 Unknown History paroxetine HCl 20 mg tablet (Paxil) 20 mg PO DAILY 08/18/24 Unknown History propranolol 80 mg tablet 80 mg PO BID 08/18/24 Unknown History Allergy/AdvReac Type Severity Reaction Status Date / Time ciprofloxacin (From Cipro) AdvReac Hives Verified 11/12/15 19:37 codeine AdvReac Hives Verified 11/12/15 19:37 Penicillins AdvReac Hives Verified 11/12/15 19:37 sulfamethoxazole (From AdvReac Hives Verified 11/12/15 19:37 Bactrim) trimethoprim (From Bactrim) AdvReac Hives Verified 11/12/15 19:37 Social History household members: none housing: [facility] Smoking Status: Current every day smoker tobacco type: cigarettes alcohol intake: never substance use type: does not use ROS ROS Narrative Full review of systems was not possible due to patient's acute metabolic encephalopathy in the setting of chronic dementia, schizophrenia and agitation. Vital Signs Vital Signs Vital Signs: 08/18/24 18:29 08/18/24 18:41 08/18/24 18:41 Temperature 97.9 F 97.9 F Temperature Source Temporal Temporal Pulse Rate 62 58 L 62 Respiratory Rate 14 16 14 Blood Pressure 84/41 L 109/57 L 84/41 L Blood Pressure Mean 55 74 55 Pulse Ox 92 99 92 Oxygen Delivery Method Room Air Room Air 08/18/24 19:11 08/18/24 19:35 08/18/24 19:46 Temperature Temperature Source Pulse Rate 66 65 Respiratory Rate 18 Blood Pressure 87/50 L 88/65 L 106/52 L Blood Pressure Mean 62 72 70 Pulse Ox 93 Oxygen Delivery Method 08/18/24 21:00 08/18/24 21:30 08/18/24 21:35 Temperature Temperature Source Pulse Rate 87 61 61 Respiratory Rate 18 20 H 16 Blood Pressure 110/65 105/89 H Blood Pressure Mean 80 94 Pulse Ox 98 98 Oxygen Delivery Method Room Air Room Air 08/18/24 21:44 08/18/24 21:45 08/18/24 21:59 Temperature 98.9 F 98.7 F Temperature Source Axillary Oral Pulse Rate 60 60 63 Respiratory Rate 20 H 16 12 Blood Pressure 94/46 L 94/46 L 90/65 Blood Pressure Mean 62 61 73 Pulse Ox 98 83 98 Oxygen Delivery Method Room Air Room Air 08/18/24 22:00 08/18/24 22:00 08/18/24 22:02 Temperature Temperature Source Pulse Rate 62 61 63 Respiratory Rate 14 14 15 Blood Pressure 90/65 83/39 L 90/65 Blood Pressure Mean 73 50 75 Pulse Ox 99 Oxygen Delivery Method Room Air 08/18/24 22:14 08/18/24 22:15 08/18/24 22:30 Temperature 98.9 F Temperature Source Axillary Pulse Rate 61 60 61 Respiratory Rate 18 20 H 14 Blood Pressure 91/47 L 91/47 L 68/44 L Blood Pressure Mean 61 61 49 Pulse Ox 98 Oxygen Delivery Method Room Air 08/18/24 22:34 08/18/24 22:36 08/18/24 22:45 Temperature Temperature Source Pulse Rate 61 61 63 Respiratory Rate 16 17 20 H Blood Pressure 99/72 99/72 115/77 Blood Pressure Mean 78 81 87 Pulse Ox 94 97 Oxygen Delivery Method Room Air Room Air 08/18/24 23:00 Temperature Temperature Source Pulse Rate 64 Respiratory Rate 21 H Blood Pressure Blood Pressure Mean Pulse Ox 100 Oxygen Delivery Method Weight Weight: 151 lb 0.266 oz Body Mass Index (BMI) 22.3 Physical Exam Const Constitutional Narrative: Patient appears unkempt and is confused, lethargic and agitated. Orientation / Consciousness: confused and lethargic HEENT normocephalic, head/scalp atraumatic and hearing grossly normal bilaterally HEENT Narrative: Mucous membranes dry. Eyes PERRL, EOMs intact bilaterally and conjunctivae normal Neck no lymphadenopathy, supple and no JVD Resp normal respiratory effort, no retractions, no use of accessory muscles and clear to auscultation bilaterally Cardio regular rate and regular rhythm GI soft to palpation, non-tender and non-distended Auscultation: hypoactive bowel sounds Extremity normal to inspection, full ROM and no clubbing, cyanosis or edema Skin Skin Narrative: Patient is evidence of rash, abscess, wounds or jaundice. Neuro Neuro Narrative: Patient is confused, lethargic and agitated. Psych Psych Narrative: Patient is confused, lethargic and agitated. Results Medical Records Data Attestation: I reviewed the patient's medical records Lab / Micro Data Attestation: I reviewed the patient's lab results. 08/18/24 18:59 08/18/24 18:59 Labs: Laboratory Results - last 24 hr 08/18/24 18:59: WBC 7.7, RBC 3.22 L, Hgb 9.9 L, Hct 29.7 L, MCV 92.2, MCH 30.7, MCHC 33.3, RDW Std Deviation 41.1, RDW Coeff of Eyal 12.3, Plt Count 114 L, MPV 10.8, Immature Gran % (Auto) 0.400, Neut % (Auto) 80.5 H, Lymph % (Auto) 11.0 L, Grainger % (Auto) 6.7, Eos % (Auto) 1.3, Baso % (Auto) 0.1, Absolute Neuts (auto) 6.2, Absolute Lymphs (auto) 0.85, Nucleated RBC % 0, Sodium 139, Potassium 4.1, Chloride 107, Carbon Dioxide 25.1, Anion Gap 8, BUN 22 H, Creatinine 1.19, Estim Creat Clear Calc 61.56, Est GFR (MDRD) Non-Af 69, BUN/Creatinine Ratio 18.2, Glucose 137 H, Lactic Acid 1.3, Calcium 9.6, Total Bilirubin 0.46, AST 15, ALT 10, Alkaline Phosphatase 117, Total Protein 6.0, Albumin 3.9, Globulin 2.2, Albumin/Globulin Ratio 1.8, Urine Color Yellow, Urine Clarity Sl. Cloudy, Urine pH 6.0, Ur Specific [place] 1.015, Urine Protein 30 H, Urine Glucose (UA) Normal, Urine Ketones 5 H, Urine Occult Blood 25 H, Urine Nitrite Negative, Urine Bilirubin Negative, Urine Urobilinogen 1 H, Ur Leukocyte Esterase 500 H, Urine RBC 0-5 SEEN, Urine WBC 50-100 SEEN, Ur Squamous Epith Cells 0 SEEN, Urine Bacteria 0 SEEN, Urine Mucus 0 SEEN ABG Data ABG results: ABG 08/18/24 19:29 Specimen Type ART Sample Site L Radial pH 7.42 Bicarbonate Actual 26.5 H Total CO2 28 Base Excess 2 O2 Saturation 94 L ABG pCO2 40.8 ABG pO2 68 L Cory Test Positive O2 Delivery Device Room Air Vent Mode Not entered Imaging Radiology Impression Chest X-Ray 08/18/24 19:06 IMPRESSION: NEGATIVE SINGLE VIEW OF THE CHEST. Reading Location: [place] [address] [facility] Imaging Services [address], [place] [address] CTA Chest W/WO Contrast MR#: [id number] Acct: [id number] Name: KIMMY BRITO Rep #: [id number] : 1960 M 63 From: Luis Enrique Coleman MD PCP: Dr. Mani Balderas MD Status: ADM IN Study: CTA Chest W/WO Contrast Date of Exam: 08/19/24 Exam# [id number] Ordering Dr: Jose Olvera MD PROCEDURE: CTA CHEST W/WO CONTRAST 08/19/2024 REASON FOR EXAM: HYPOXIA TECHNIQUE: CTA CHEST W/WO CONTRAST Multiplanar Sagittal and Coronal images were obtained. CONTRAST: Isovue 370 VOLUME: 100 mL One or more dose reduction techniques were used (e.g., Automated exposure control, adjustment of the mA and/or kV according to patient size, use of iterative reconstruction technique). RADIATION DOSE SUMMARY: CTDlvol: 23.4 mGy DLP: 630 mGycm COMPARISON: Radiograph on 08/18/2024. FINDINGS: Minimal left pleural effusion/thickening. Minimal passive atelectatic airspace disease of the left lower lobe. Paraseptal emphysema. Moderate coronary artery calcifications. Multinodular thyroid goiter without tracheal narrowing or deviation. Minimal pericardial effusion. Normal enhancement of the main pulmonary artery and right and left pulmonary arteries. Normal enhancement of the bilateral peripheral pulmonary arteries. There is no demonstrated pulmonary embolism. Normal thoracic aorta and visualized great vessels. There is no demonstrated aortic dissection. Normal heart . Normal mediastinum. Normal hilar regions. Normal visualized trachea and bronchi. Normal chest wall structures. Normal osseous structures. Normal visualized upper abdomen. No demonstrated pulmonary embolism or arterial dissection. CT/CTA Chest W/WO Contrast IMPRESSION: No demonstrated pulmonary embolism or arterial dissection. Minimal left pleural effusion/thickening. Minimal passive atelectatic airspace disease of the left lower lobe. Paraseptal emphysema. Moderate coronary artery calcifications. Multinodular thyroid goiter without tracheal narrowing or deviation. Minimal pericardial effusion. Reading Location: [place] [address] CC: Dr. Mani Balderas MD; Dr. Jose Olvera MD ~ [place]: Signed [facility] Imaging Services [address] [place] [id number] Brain/Head without Contrast MR#: [id number] Acct: [id number] Name: KIMMY BRITO Rep #: [id number] : 1960 M 63 From: Luis Enrique Coleman MD PCP: Dr. Mani Balderas MD Status: ADM IN Study: Brain/Head without Contrast Date of Exam: 08/19/24 Exam# [id number] Ordering Dr: Robert Huizar DO PROCEDURE: BRAIN/HEAD WITHOUT CONTRAST 08/19/2024 REASON FOR EXAM: AMS AND AGITATION. TECHNIQUE: BRAIN/HEAD WITHOUT CONTRAST Coronal and Sagittal reconstruction series were provided. One or more dose reduction techniques were used (e.g., Automated exposure control, adjustment of the mA and/or kV according to patient size, use of iterative reconstruction technique. RADIATION DOSE SUMMARY: CTDlvol: 44.99 mGy DLP: 862 mGycm COMPARISON: None. FINDINGS: Normal size of the ventricles and extra-axial spaces for the patient's age. Normal white matter tracts of the supratentorial brain. Normal basal ganglia and thalami. Normal brainstem. Normal cerebellum. There is no demonstrated extra-axial, intraparenchymal, or intraventricular hemorrhage. There are no findings of an acute ischemic infarction. Normal calvarium. There is no demonstrated fracture. Normal soft tissue structures. Mild chronic mucosal inflammatory changes of the visualized paranasal sinuses. CT/Brain/Head without Contrast IMPRESSION: No CT evidence of an acute brain abnormality. Reading Location: [facility] CC: Dr. Robert Huizar DO; Dr. Mani Balderas MD ~ [place]: Signed [facility] Imaging Services [address] [place] [address] Abdomen/Pelvis W IV Cont ONLY MR#: [id number] Acct: [id number] Name: KIMMY BRITO Rep #: [id number] : 1960 M 63 From: Luis Enrique Coleman MD PCP: Dr. Mani Balderas MD Status: ADM IN Study: Abdomen/Pelvis W IV Cont ONLY Date of Exam: 08/19/24 Exam# [id number] Ordering Dr: Jose Olvera MD PROCEDURE: ABDOMEN/PELVIS W IV CONT ONLY 08/19/2024 REASON FOR EXAM: HYPOTENSION, ABDOMINAL TENDERNESS TECHNIQUE: ABDOMEN/PELVIS W IV CONT ONLY. Coronal and Sagittal reconstruction series were provided. ORAL CONTRAST TYPE: None. AMOUNT: mL CONTRAST: Isovue-350 VOLUME: 100 mL One or more dose reduction techniques were used (e.g., Automated exposure control, adjustment of the mA and/or kV according to patient size, use of iterative reconstruction technique. RADIATION DOSE SUMMARY: CTDlvol: 17.54 mGy DLP: 890 mGycm COMPARISON: None. FINDINGS: Moderate osteopenia. Acute comminuted displaced left intertrochanteric fracture. Moderate gastroparesis. Moderate amount of fecal residue in the large bowel suggestive of constipation with associated mild stercoral colitis of the rectosigmoid colon. Mild chronic multifocal scarring of the kidneys. Distended, trabeculated bladder. Diffuse thickening of the bladder. Chronic bladder outlet obstruction versus cystitis. Mild prostatomegaly with midline defect of the prostate, probably from prior TURP. Mild bilateral fullness of the collecting systems, probably reflux from distended bladder. Bilateral scattered simple renal cysts are noted with the largest measuring 5 mm. Right renal nonobstructing stone measuring 5 mm. The visualized lung bases are unremarkable. Normal liver. Normal gallbladder and extrahepatic biliary system. Normal spleen. Normal pancreas. Normal bilateral adrenal glands. Normal size of the right kidney. There is no right renal mass. Normal size of the left kidney. There is no left renal mass. There are no left renal calculi. Normal small intestine. The appendix is visualized and appears normal. There is no demonstrated peritoneal fluid. Normal abdominal aorta. Normal inferior vena cava. Normal retroperitoneum. There is no pelvic mass lesion or lymphadenopathy. There is no pelvic fluid. CT/Abdomen/Pelvis W IV Cont ONLY IMPRESSION: Moderate osteopenia. Acute comminuted displaced left intertrochanteric fracture. Moderate gastroparesis. Moderate amount of fecal residue in the large bowel suggestive of constipation with associated mild stercoral colitis of the rectosigmoid colon. Mild chronic multifocal scarring of the kidneys. Distended, trabeculated bladder. Diffuse thickening of the bladder. Chronic bladder outlet obstruction versus cystitis. Mild prostatomegaly with midline defect of the prostate, probably from prior TURP. Mild bilateral fullness of the collecting systems, probably reflux from distended bladder. Bilateral scattered simple renal cysts are noted with the largest measuring 5 mm. Right renal nonobstructing stone measuring 5 mm. Reading [facility] CC: Dr. Mani Balderas MD; Dr. Jose Olvera MD ~ [place]: Signed Assessment & Plan Assessment/Plan (1) Sepsis: QUALIFIERS: Sepsis acute organ dysfunction status: with acute organ dysfunction Sepsis type: sepsis due to unspecified organism Severe sepsis acute organ dysfunction type: encephalopathy Severe sepsis shock status: with septic shock Qualified Code(s): A41.9 - Sepsis, unspecified organism; R65.21 - Severe sepsis with septic shock; G93.41 - Metabolic encephalopathy (2) Acute cystitis without hematuria: (3) Acute respiratory insufficiency: (4) Acute metabolic encephalopathy: (5) Hip fracture: QUALIFIERS: Encounter type: initial encounter Fracture type: closed Laterality: left Qualified Code(s): S72.002A - Fracture of unspecified part of neck of left femur, initial encounter for closed fracture (6) History of anoxic brain injury: (7) History of schizophrenia: (8) Schizoaffective disorder: QUALIFIERS: Schizoaffective disorder type: unspecified Qualified Code(s): F25.9 - Schizoaffective disorder, unspecified (9) Anxiety and depression: (10) Dementia: QUALIFIERS: Dementia behavioral or psychological symptom: with agitation Dementia severity: unspecified severity Dementia type: unspecified type Qualified Code(s): F03.911 - Unspecified dementia, unspecified severity, with agitation PLAN: Plan 1. Acute Cystitis; without hematuria complicated by clinical evidence of Hypotension of 84/41 mmHg present on admission indicative of possible Sepsis - Admit to ICU for treatment under the Sepsis protocol. Continue empiric meropenem IV began in the ER plus add IV vancomycin and await culture sensitivity data. Continue norepinephrine bitartrate drip to keep MAP greater than 65 mmHg. Give acetaminophen [place] prn for pain or fever. Give ondansetron IV prn for nausea and vomiting. 2. ABG that revealed pH 7.42/pCO2 40.8 mmHg/PaO2 68 mmHg/HCO3 28 mmol/L on RA indicative of Acute Respiratory Insufficiency with unremarkable CXR and critically elevated d-dimer of 9.09 present on admission complicating #1 - CTA of chest with IV contrast pending at this time. 3. Acute Metabolic Encephalopathy in the setting of previously known Anoxic Brain Injury, Schizophrenia, Schizoaffective disorder, Depression with Anxiety and Dementia; of unclear type compounding #1 & #2 - Check UDS, lithium level and minimize CAN PUSHER-active medications in an effort to allow sensorium to clear. Check head CT. 4. Acute Comminuted Displaced Left Intertrochanteric Fracture incidentally noted on CT this admission adding to the medical complexity of #1 - #3 - We will consult orthopedic surgery to see this patient on rounds in the AM for further recommendations with help appreciated in advance. 5. Adrenal insufficiency; on fludrocortisone and hydrocortisone twice daily adding to the burden of disease outlined from #1 - #4 - Give hydrocortisone 50 mg IV TID and check cortisol level. 6. History of admission here from May 10, 2023 to May 14, 2023 for for acute hypoxic respiratory failure due to a combination of influenza A and aspiration pneumonia in setting of previously known schizophrenia complicated by toxic encephalopathy - Noted. 7. Essential hypertension; on propranolol twice daily - Hold scheduled antihypertensives in light of #1. 8. Hyperlipidemia; on atorvastatin - Resume statin as previous. 9. History of tobacco abuse with subsequent asthma/COPD; on as needed albuterol plus nicotine replacement - Noted with no evidence of acute flare at this time. Continue as needed albuterol and nicotine replacement as before. 10. Seizure disorder; on divalproex - Check valproic acid level and replace with IV levetiracetam as there is a significant potential adverse drug interaction with meropenem. 11. Chronic oral dysphagia - Noted with patient currently n.p.o. and with swallow study pending. 12. IBS; of constipation type on lactulose twice daily - Restart this agent when patient able to tolerate oral intake. 13. BPH; with history of obstructive uropathy on tamsulosin - Resume tamsulosin when patient is able to tolerate oral intake. 14. History of hydrocele - Noted. 15. CKD; stage II - Stable with serum creatinine of 1.19 mg/dL, BUN of 22 mg/dL and EGFR of 69 mL/min present on admission. 16. Chronic pancytopenia with superimposed iron deficiency anemia - Stable with WBC of 7.7K, hemoglobin of 9.9 g/dL and platelet count of 114K present on admission. 17. History of vitamin D deficiency - Maintain vitamin D supplement when patient can safely tolerate oral intake. 18. OA; with polyarthropathy - Stable. Give acetaminophen as outlined in #1. 19. DVT/GI prophylaxis - Enoxaparin 40 mg sq daily plus SCD's. Pantoprazole 40 mg IV daily. Total time: Approximately (but not less than) 75 minutes. Sepsis Attestation Sepsis Alert: Yes Sepsis Attestation: Agree w/Sepsis Date exam was performed: 08/19/24 Time exam was performed: 00:05 Possible Source of Sepsis: Genitourinary Sepsis Organ Dysfunction Criteria Present: SBP < 90 mmHg or MAP < 65 mmHg, SBP decrease of more than 40 mmHg and New/Unexplained change in mental status Fluid Resuscitation Fluid resuscitation indicated?: Yes Fluid Resuscitation ordered: 30 ml/kg fluid bolus ordered Amount of fluid ordered: 2 Sepsis Note Date exam was performed: 08/19/24 Time exam was performed: 04:05 Sepsis Attestation: Sepsis re-evaluation was performed Response to fluids: Non Fluid responsive hypotension and Vasopressors started Charges/Coding Visit Charges Inpatient E&M: 86177 Init Hosp L3
--- NOTE | 2024-08-18 23:28 | ED.RN ---
ATTEMPTED TO CALL FOR CONSENT WITH NO ANSWER
--- NOTE | 2024-08-18 23:56 | ED.RN ---
This RN spoke with nurse from [facility] and updated her on patient status. No new questions at this time.
[2024-08-19] VITALS (24 sets, daily range): BP systolic 99–169; BP diastolic 55–117; PULSE 54–80; RESP 13–93; TEMP 37.4–38.1; O2SAT 15–98; BMI 21.7
--- NOTE | 2024-08-19 00:06 | ED.RN ---
REPORT CALLED TO [facility].
--- NOTE | 2024-08-19 00:30 | CT_ITS ---
PROCEDURE: CTA CHEST W/WO CONTRAST 08/19/2024 REASON FOR EXAM: HYPOXIA TECHNIQUE: CTA CHEST W/WO CONTRAST Multiplanar Sagittal and Coronal images were obtained. CONTRAST: Isovue 370 VOLUME: 100 mL One or more dose reduction techniques were used (e.g., Automated exposure control, adjustment of the mA and/or kV according to patient size, use of iterative reconstruction technique). RADIATION DOSE SUMMARY: CTDlvol: 23.4 mGy DLP: 630 mGycm COMPARISON: Radiograph on 08/18/2024. FINDINGS: Minimal left pleural effusion/thickening. Minimal passive atelectatic airspace disease of the left lower lobe. Paraseptal emphysema. Moderate coronary artery calcifications. Multinodular thyroid goiter without tracheal narrowing or deviation. Minimal pericardial effusion. Normal enhancement of the main pulmonary artery and right and left pulmonary arteries. Normal enhancement of the bilateral peripheral pulmonary arteries. There is no demonstrated pulmonary embolism. Normal thoracic aorta and visualized great vessels. There is no demonstrated aortic dissection. Normal heart . Normal mediastinum. Normal hilar regions. Normal visualized trachea and bronchi. Normal chest wall structures. Normal osseous structures. Normal visualized upper abdomen. No demonstrated pulmonary embolism or arterial dissection. CT/CTA Chest W/WO Contrast IMPRESSION: No demonstrated pulmonary embolism or arterial dissection. Minimal left pleural effusion/thickening. Minimal passive atelectatic airspace disease of the left lower lobe. Paraseptal emphysema. Moderate coronary artery calcifications. Multinodular thyroid goiter without tracheal narrowing or deviation. Minimal pericardial effusion. Reading Location[facility] [place] [address]
--- NOTE | 2024-08-19 00:30 | CT_ITS ---
PROCEDURE: BRAIN/HEAD WITHOUT CONTRAST 08/19/2024 REASON FOR EXAM: AMS AND AGITATION. TECHNIQUE: BRAIN/HEAD WITHOUT CONTRAST Coronal and Sagittal reconstruction series were provided. One or more dose reduction techniques were used (e.g., Automated exposure control, adjustment of the mA and/or kV according to patient size, use of iterative reconstruction technique. RADIATION DOSE SUMMARY: CTDlvol: 44.99 mGy DLP: 862 mGycm COMPARISON: None. FINDINGS: Normal size of the ventricles and extra-axial spaces for the patient's age. Normal white matter tracts of the supratentorial brain. Normal basal ganglia and thalami. Normal brainstem. Normal cerebellum. There is no demonstrated extra-axial, intraparenchymal, or intraventricular hemorrhage. There are no findings of an acute ischemic infarction. Normal calvarium. There is no demonstrated fracture. Normal soft tissue structures. Mild chronic mucosal inflammatory changes of the visualized paranasal sinuses. CT/Brain/Head without Contrast IMPRESSION: No CT evidence of an acute brain abnormality. Reading Location: [facility]
--- NOTE | 2024-08-19 00:30 | CT_ITS ---
PROCEDURE: ABDOMEN/PELVIS W IV CONT ONLY 08/19/2024 REASON FOR EXAM: HYPOTENSION, ABDOMINAL TENDERNESS TECHNIQUE: ABDOMEN/PELVIS W IV CONT ONLY. Coronal and Sagittal reconstruction series were provided. ORAL CONTRAST TYPE: None. AMOUNT: mL CONTRAST: Isovue-350 VOLUME: 100 mL One or more dose reduction techniques were used (e.g., Automated exposure control, adjustment of the mA and/or kV according to patient size, use of iterative reconstruction technique. RADIATION DOSE SUMMARY: CTDlvol: 17.54 mGy DLP: 890 mGycm COMPARISON: None. FINDINGS: Moderate osteopenia. Acute comminuted displaced left intertrochanteric fracture. Moderate gastroparesis. Moderate amount of fecal residue in the large bowel suggestive of constipation with associated mild stercoral colitis of the rectosigmoid colon. Mild chronic multifocal scarring of the kidneys. Distended, trabeculated bladder. Diffuse thickening of the bladder. Chronic bladder outlet obstruction versus cystitis. Mild prostatomegaly with midline defect of the prostate, probably from prior TURP. Mild bilateral fullness of the collecting systems, probably reflux from distended bladder. Bilateral scattered simple renal cysts are noted with the largest measuring 5 mm. Right renal nonobstructing stone measuring 5 mm. The visualized lung bases are unremarkable. Normal liver. Normal gallbladder and extrahepatic biliary system. Normal spleen. Normal pancreas. Normal bilateral adrenal glands. Normal size of the right kidney. There is no right renal mass. Normal size of the left kidney. There is no left renal mass. There are no left renal calculi. Normal small intestine. The appendix is visualized and appears normal. There is no demonstrated peritoneal fluid. Normal abdominal aorta. Normal inferior vena cava. Normal retroperitoneum. There is no pelvic mass lesion or lymphadenopathy. There is no pelvic fluid. CT/Abdomen/Pelvis W IV Cont ONLY IMPRESSION: Moderate osteopenia. Acute comminuted displaced left intertrochanteric fracture. Moderate gastroparesis. Moderate amount of fecal residue in the large bowel suggestive of constipation with associated mild stercoral colitis of the rectosigmoid colon. Mild chronic multifocal scarring of the kidneys. Distended, trabeculated bladder. Diffuse thickening of the bladder. Chronic bladder outlet obstruction versus cy stitis. Mild prostatomegaly with midline defect of the prostate, probably from prior TU RP. Mild bilateral fullness of the collecting systems, probably reflux from distend ed bladder. Bilateral scattered simple renal cysts are noted with the largest measuring 5 m m. Right renal nonobstructing stone measuring 5 mm. [facility]
[2024-08-19] MEDS: Lorazepam 2 MG/ML WCH Syringe 0.5 MG IV (00:39)
[2024-08-19] MEDS: Haloperidol Lactate 5 MG/ML Vial IV (00:39)
[2024-08-19 00:50] LABS: D-Dimer Quantitative (DVT/PE) 9.09 FEU/ug/m (0.27-0.49)
--- OUTSIDE RECORDS SUMMARY | 2024-08-19 00:54 | XMS RPT_ITS | CCD ---
Author Organization [facility] Care Team Providers Care Director Power Name Role Phone BRANDEN SHAH (PA) Unavailable Unavailable BRANDEN SHAH (DI) Unavailable Unavailable BRANDEN SHAH (DI) Unavailable Unavailable ASHLEY DICKEY Unavailable Unavailab Ashley Huang Unavailable MD NARINDER DUEÑAS Attending Unavailabl e MD NARINDER DUEÑAS Referring Unavailabl e Sherrie, Dr. Ashley Dave [facility] MD NARINDER Santana Attending Unavailabl e MD NARINDER DUEÑAS Referring Unavailabl e Sherrie, Dr. Ashley Mcdermotthen [facility] Sarahva MD NARINDER Hidalgo Attending Unavailabl MD NARINDER Delacruz Referring Unavailabl Dr. Ashley Bentley [facility] MD NARINDER Santana Referring UnavailMD NARINDER Pearson Attending Unavailkasey Dickey, Dr. Ashley Dave [facility] Ashley Rodrigues MD Primary Care Provider Dr. Ashley Dickey Primary Care Provider Dr. Jose Olvera Emergency Provider Dr. Roxanne More Attending Provider Dr. Ashley Dickey Primary Care Provider Dr. Jose Olvera Emergency Provider Dr. Roxanne More Attending Provider Dr. Roxanne More Admit Provider Dr. Roxanne More Other Provider Dr. Robert Barr Attending Provider Unavailable Dr. Robert Barr Other Provider Unavailable Dr. Kirsty Rodarte Attending Provider Dr. Kirsty Rodarte Other Provider Dr. Jonnathan Campuzano Other Provider [phone] Dr. Scott Blandon Other Provider Dr. Lupillo Porras Other Provider Dr. Kt Garcia Other Provider [phone] Antonia Parsons Other Provider Dr. Jose Johnson Other Provider Dr. Sanjuana Wasserman Other Provider Dr. Tomer Hawkins Other Provider Unavailable Silvino, Dr. Gong Other Provider Bolivar, Dr. Gardner Other Provider Dr. Cb Amor Other Provider Dr. Yann Ji Other Provider Dr. Scott Blandon Attending Provider [phone] Ashley Dickey Primary Care Unavailable Kirsty Rodarte Attending Unavailable Roxanne More Admitting Unavailable Roxanne More Consulting Unavailable Robert Barr Consulting Unavailable Jonnathan Campuzano Consulting Unavailable Scott Blandon Consulting Unavailable Lupillo Porras Consulting Unavailable Kt Garcia Consulting Unavailable Antonia Parsons Consulting Unavailab le Jose Johnson Consulting Unavailable Sanjuana Wasserman Consulting Unavailable Tomer Hawkins Consulting Unavailable Beltran Dubois Consulting Unavailable Jj Lutz Consulting Unavailable Cb Amor Consulting Unavailable Yann Ji Consulting Unavailable Kirsty Rodarte Consulting Unavailable Ashley Dickey Primary Care Unavailable Roxanne More Attending Unavailable Robert Barr Attending Unavailable Scott Blandon Attending Unavailable Kirsty Rodarte Referring Unavailable Ashley Terry Attending Unavailable Ashley Dickey Primary Care Unavailable Ashley Terry Attending Unavailable Sherrie DOE, Ashley Referring Unavailable Ashley Dickey Primary Care Unavailable Ashley Terry Attending Unavailable Sherrie, Ashley Primary Care Unavailable Kirsty Rodarte Attending Unavailable Ashley Dickey Primary Care Unavailable Roxanne More Admitting Unavailable Roxanne More Consulting Unavailable Robert Barr Consulting Unavailable Jonnathan Campuzano Consulting Unavailable Scott Blandon Consulting Unavailable Lupillo Porras Consulting Unavailable Kt Garcia Consulting Unavailable Issa, Antonia Consulting Unavailab le Dand, Jose Consulting Unavailable Lux, Sanjuana Consulting Unavailable Aljundi, Lamia Consulting Unavailable Irukulla, Beltran Consulting Unavailable Bolivar, Jj Consulting Unavailable Mt, Cb Consulting Unavailable Yann Ji Consulting Unavailable NARINDER DUEÑAS Referring Unavailable ASHLEY DICKEY Primary Care Unavailab Sal PAUL, Ashley Dave [facility] Provider NARINDER DUEÑAS Attending Unavailable ASHLEY DICKEY Primary Care Unavailab NARINDER Ledesma Attending Unavailable ASHLEY DICKEY Primary Care Unavailab ASHLEY Huang TENZIN Primary Care Unavailab le Allergies Allergy Classification Reported Allergen(s) Allergy Type Date of Onset Reaction(s) Facility Opioid Agonists (1 source) Codeine; Translations: [codeine] Drug Allergy [facility] Work Phone: Penicillins (antibiotic) (1 source) Penicillins; Translations: [Penicillins] Drug Allergy AB[facility] Work Phone: Quinolones (antibiotic) (1 source) Ciprofloxacin; Translations: [Cipro] Drug Allergy [facility] Work Phone: Sulfamethoxazole / Trimethoprim (1 source) Sulfamethoxazole / Trimethoprim; Translations: [Bactrim] Drug Allergy PM[facility] Work Phone: (13 sources) ciprofloxacin; Translations: [CIPROFLOXACIN] Drug Allergy 11-12-19 16 Unknown [facility] Repository (18 sources) codeine; Translations: [CODEINE] Drug Allergy 11-12-19 16 Unknown [facility] Repository (18 sources) Penicillins; Translations: [PENICILLINS] Propensity to adverse reactions to drug (disorder) 11-12-19 16 Unknown [facility] Repository (8 sources) sulfamethoxazole / trimethoprim; Translations: [SULFAMETHOXAZOLE-T RIMETHOPRIM] Drug Allergy 08-23-19 17 Unknown [facility] Repository (4 sources) Sulfamethoxazole Drug Allergy 11-12-19 16 [facility] (4 sources) Trimethoprim Drug Allergy 11-12-19 16 [facility] (5 sources) Ciprofloxacin; Translations: [Cipro] Drug Allergy TE[facility] [facility] Work Phone: (5 sources) Sulfamethoxazole / Trimethoprim; Translations: [Bactrim] Drug Allergy OI[facility] [facility] Work Phone: (1 source) Sulfamethoxazole Drug Allergy 11-12-19 16 [facility] Repository (1 source) Trimethoprim Drug Allergy 11-12-19 16 [facility] Repository Medications Current Medications Medication Drug Class(es) Dates Sig (Normalized) Sig (Original) acetaminophen 325 mg oral tablet (15 sources) Start: 05-26-2017 take 2 tablets by mouth every four hours Acetaminophen (Tylenol) 325 MG tablet Active 650 MG PO Q4H May 26, 2017 12:00am acetaminophen (T ylenoL) 325 mg capsule Take by mouth. Active Tylenol 325 MG O ral Capsule Quantity: 0 Refills: 0 Ordered: 23-May-2020 DO Active albuterol 0.83 mg/ml inhalation solution (4 sources) beta2-Adrenergic Agonist Start: 05-26-2017 take 2.5 mg by inhalation every six hours as needed Albuterol Sulfate Active 2.5 MG INHALATION EVERY 6 HOURS NEEDED May 26, 2017 12:00am Alum-Mag Hydroxide-Simeth (Mag-Al Plus Extra Strength) 30 ML suspension (1 source) Start: 05-26-2017 take 1 mL by mouth every four hours as needed Alum-Mag Hydroxide-Simet h (Mag-Al Plus Extra Strength) 30 ML suspension Active 30 ML PO EVERY 4 HOURS NEEDED May 26, 2017 12:00am Alum-Mag Hydroxide-Simeth (Mylanta Ii) 30 ML suspension (1 source) Start: 05-26-2017 take 1 mL by mouth every four hours as needed Alum-Mag Hydroxide-Simet h (Mylanta Ii) 30 ML suspension Active 30 ML PO EVERY 4 HOURS NEEDED May 25, 2017 11:00pm aluminum hydroxide 80 mg/ml / magnesium hydroxide 80 mg/ml / simethicone 8 mg/ml oral suspension (13 sources) Start: 05-26-2017 take 1 mL by mouth every four hours as needed Alum-Mag Hydroxide-Simet h (Mylanta Ii) 30 ML Udc Active 30 ML PO EVERY 4 HOURS NEEDED May 26, 2017 8:32am alum-mag hydroxi de-simeth (Mylanta) 200-200-20 mg/5 mL oral suspension Take by mouth. Active ARIPiprazole 5 mg oral tablet (15 sources) Atypical Antipsychotic Start: 05-26-2017 take 5 mg by mouth at bedtime Aripiprazole Active 5 MG PO AT BEDTIME May 26, 2017 12:00am ARIPiprazole 5 M G Oral Tablet Quantity: 0 Refills: 0 Ordered: 23-May-2020 DO Active atorvastatin 40 mg oral tablet (13 sources) HMG-CoA Reductase Inhibitor Start: 05-10-2023 take 40 mg by mouth at bedtime Atorvastatin Active 40 MG PO AT BEDTIME May 10, 2023 1:00am Lipitor 40 MG Or al Tablet Quantity: 0 Refills: 0 Ordered: 23-May-2020 DO Active benzocaine 15 mg / menthol 3.6 mg oral lozenge (4 sources) Standardized Chemical Allergen Start: 05-26-2017 Benzocaine-Menthol (Cepacol Sore Throat (Dylan-Men)) 1 EACH lozenge Active 1 LOZENGE BUCCAL NEEDED May 26, 2017 12:00am bisacodyl 10 mg rectal suppository (19 sources) Stimulant Laxative Start: 05-26-2017 take 10 mg rectal route once daily as needed Bisacodyl Active 10 MG RECTAL DAILY NEEDED May 26, 2017 12:00am Start: 05-26-2017 Dulcolax Activ e 5 MG PO NEEDED May 26, 2017 12:00am Dulcolax 10 MG R ectal Suppository Quantity: 0 Refills: 0 Ordered: 23-May-2020 DO Active calcium carbonate 1250 mg or al tablet (11 sources) calcium carbonat e (Oscal) 500 mg calcium (1,250 mg) tablet Take by mouth. Active calcium carbonat e (Oscal) 500 mg calcium (1,250 mg) tablet Take by mouth. 0 Active Calcium 500 MG T ABS Quantity: 0 Refills: 0 Ordered: 23-May-2020 DO Active calcium carbonate 1500 mg / cholecalciferol 200 unt oral tablet (4 sources) Vitamin D Start: 05-26-2017 Calcium Carbonate-Vitamin D3 (Calcium 600 + D(3)) 1 EACH tablet Active 1 EACH PO TWICE A DAY May 26, 2017 12:00am cholecalciferol 0.05 mg oral capsule (2 sources) Vitamin D Start: 05-10-2023 take 1 capsule by mouth once daily Cholecalciferol (Vitamin D3) (Vitamin D3) 50 mcg (2,000 unit) capsule Active 4000 UNIT PO DAILY May 10, 2023 1:00am diphenhydrAMINE hydrochloride 50 mg/ml injectable solution (2 sources) Histamine-1 Receptor Antagonist Start: 05-10-2023 inject 50 mg by intramuscular injection every six hours Diphenhydramine Hcl Active 50 MG IM EVERY 6 HOURS May 10, 2023 1:00am docusate sodium 100 mg oral capsule (4 sources) Start: 05-26-2017 take 1 capsule by mouth once daily Docusate Sodium (Dok) 100 MG capsule Active 100 MG PO DAILY May 26, 2017 12:00am fludrocortisone acetate 0.1 mg oral tablet (15 sources) Start: 05-26-2017 take 0.1 mg by mouth once daily Fludrocortisone Active 0.1 MG PO DAILY@0800 May 26, 2017 8:32am Start: 05-26-2017 take 0.05 mg by mout h once daily Fludrocortisone Active 0.05 MG PO DAILY@0800 May 26, 2017 12:00am Fludrocortisone Acetate 0.1 MG Oral Tablet Quantity: 0 Refills: 0 Ordered: 23-May-2020 DO Active folic acid 0.4 mg oral tablet (13 sources) Start: 05-10-2023 take 400 ug by mouth once daily Folic Acid Active 400 MCG PO DAILY May 10, 2023 1:00am folic acid (Folv ite) 1 mg tablet Take by mouth. Active Folic Acid 1 MG Oral Tablet Quantity: 0 Refills: 0 Ordered: 23-May-2020 DO Active guaiFENesin 20 mg/ml oral solution (4 sources) Start: 05-26-2017 take 1 mL by mouth every four hours as needed Guaifenesin Active 10 ML PO EVERY 4 HOURS NEEDED May 26, 2017 12:00am 1 ml haloperidol 5 mg/ml injection (20 sources) Typical Antipsychotic Start: 05-10-2023 inject 5 mg by intramuscular injection every three hours Haloperidol Lactate Active 5 MG IM Q3H May 10, 2023 1:00am Start: 05-26-2017 take 3 mg by mouth t hree times daily Haloperidol Active 3 MG PO THREE TIMES A DAY May 26, 2017 12:00am haloperidol (Andrés dol) 1 mg tablet Take by mouth. Active Haloperidol 1 MG Oral Tablet Quantity: 0 Refills: 0 Ordered: 23-May-2020 DO Active Haloperidol 2 MG Oral Tablet Quantity: 0 Refills: 0 Ordered: 23-May-2020 DO Active hydrocortisone 10 mg oral tablet (4 sources) Corticosteroid Start: 05-10-2023 take 10 mg by mouth twice daily Hydrocortisone Active 10 MG PO TWICE A DAY May 10, 2023 1:00am Start: 05-10-2023 take 5 mg by mouth once daily Hydrocortisone Active 5 MG PO DAILY May 10, 2023 1:00am lactulose 667 mg/ml oral solution (13 sources) Osmotic Laxative Start: 05-10-2023 take 20 g by mouth twice daily Lactulose (Enulose) 10 gram/15 mL solution Active 20 GM PO TWICE A DAY May 10, 2023 1:00am lactulose (Krist alose) 10 gram packet Take by mouth. Active Lactulose 10 GM Oral Packet Quantity: 0 Refills: 0 Ordered: 23-May-2020 DO Active levoFLOXacin 750 mg oral tablet (3 sources) Quinolone Antimicrobial Start: 05-14-2023 take 750 mg by mouth once daily Levofloxacin Active 750 MG PO DAILY 3 May 14, 2023 12:00am Start: 05-10-2023 End: 05-14-2023 take 500 mg by mouth once daily Levofloxacin Discontinued 500 MG PO DAILY May 10, 2023 1:00am May 14, 2023 4:12pm lithium carbonate 300 mg extended release oral tablet (15 sources) Start: 05-26-2017 take 300 mg by mouth twice daily Archer Carbonate Active 300 MG PO TWICE A DAY May 26, 2017 12:00am lithium 300 mg t ablet Take by mouth. Active Archer Carbonat e 300 MG Oral Tablet Quantity: 0 Refills: 0 Ordered: 23-May-2020 DO Active LORazepam 0.5 mg oral tablet (19 sources) Benzodiazepine Start: 05-10-2023 take 1 tablet by mouth every six hours Lorazepam (Ativan) 0.5 mg tablet Active 0.5 MG PO EVERY 6 HOURS May 10, 2023 1:00am Start: 05-10-2023 take 1 mg by mouth t hree times daily Lorazepam Active 1 MG PO THREE TIMES A DAY May 10, 2023 1:00am Start: 05-26-2017 End: 05-10-2023 take 0.5 mg by mouth three times daily Lorazepam Discontinued 0.5 MG PO THREE TIMES A DAY May 26, 2017 12:00am May 10, 2023 5:49am Ativan 0.5 MG Or al Tablet Quantity: 0 Refills: 0 Ordered: 23-May-2020 DO Active Magnesium Hydroxide (15 sources) Start: 05-26-2017 take 1 mL by mouth once daily as needed Magnesium Hydroxide Active 30 ML PO DAILY NEEDED May 26, 2017 12:00am Start: 05-26-2017 take 1 mL by mouth o nce daily as needed Magnesium Hydroxide Active 30 ML PO DAILY NEEDED May 25, 2017 11:00pm Start: 05-26-2017 take 1 mL by mouth o nce daily as needed Magnesium Hydroxide Active 30 ML PO DAILY NEEDED May 26, 2017 8:32am magnesium hydrox dequan (Milk of Magnesia) 400 mg/5 mL suspension Take by mouth. Active melatonin 3 mg oral capsule (13 sources) Start: 05-10-2023 take 6 mg by mouth at bedtime Melatonin Active 6 MG PO AT BEDTIME May 10, 2023 1:00am melatonin 3 mg t ablet Take by mouth. Active Melatonin 3 MG O ral Tablet Quantity: 0 Refills: 0 Ordered: 23-May-2020 DO Active nicotine 4 mg inhalation solution (15 sources) Cholinergic Nicotinic Agonist Start: 05-10-2023 take 10 mg by inhalation every two hours Nicotine (Nicotrol) 10 mg cartridge Active 1 INH INHALATION Q2H May 10, 2023 1:00am Start: 05-10-2023 Nicotine (Don crilex) Active 2 MG MUCOUS MEM Q2H May 10, 2023 1:00am nicotine polacri nathan (Nicorette) 2 mg lozenge Take by mouth. Active Nicorette Mini 2 MG Mouth/Throat Lozenge Quantity: 0 Refills: 0 Ordered: 23-May-2020 DO Active PARoxetine hydrochloride 20 mg oral tablet (13 sources) Serotonin Reuptake Inhibitor Start: 05-10-2023 take 20 mg by mouth once daily Paroxetine Hcl Active 20 MG PO DAILY May 10, 2023 1:00am Paxil 20 MG Oral Tablet Quantity: 0 Refills: 0 Ordered: 23-May-2020 DO Active polyethylene glycol 3350 02938 mg powder for oral solution (15 sources) Osmotic Laxative Start: 05-26-2017 take 17 g by mouth once daily Polyethylene Glycol 3350 Active 17 GM PO DAILY May 26, 2017 12:00am predniSONE 10 mg oral tablet (1 source) Start: 05-14-2023 Prednisone Act elvis 10 MG PO DAILY May 14, 2023 12:00am 4 tablets x 3 days, 3 tablets x 3 days, 2 tablets x 3 days, 1 tablet x 3 days tamsulosin hydrochloride 0.4 mg oral capsule (15 sources) alpha-Adrenergi c Kehinde Start: 05-26-2017 take 1 capsule by mouth once daily Tamsulosin (Flomax) 0.4 MG capsule Active 0.4 MG PO DAILY May 26, 2017 12:00am take 1 capsule by mo [facility] every twenty-four hours tamsulosin (Flomax) 0.4 mg 24 hr capsule Take by mouth. Active Tamsulosin HCl - 0.4 MG Oral Capsule Quantity: 0 Refills: 0 Ordered: 23-May-2020 DO Active divalproex sodium 125 mg delayed release oral capsule (15 sources) Mood Stabilizer, Anti-epileptic Agent Start: 05-26-2017 take 1 capsule by mouth every eight hours Divalproex (Depakote Sprinkles) 125 MG capsule, delayed rel sprinkle Active 125 MG PO Q8H May 26, 2017 12:00am Start: 05-26-2017 Divalproex (De pakote Sprinkle) 125 MG Cap.DrBaileySpr Active 500 MG PO TWICE A DAY May 26, 2017 8:21am divalproex (Depa kote) 125 mg EC tablet Take by mouth. Active Divalproex Sodiu m 125 MG Oral Tablet Delayed Release Quantity: 0 Refills: 0 Ordered: 23-May-2020 DO Active Completed/Discontinued Medications Medication Drug Class(es) Dates Sig (Normalized) Sig (Original) acetaminophen 325 mg / oxyCODONE hydrochloride 5 mg oral tablet (4 sources) Opioid Agonist Start: 06-06-2017 End: 05-10-2023 take 1 tablet by mouth every four hours as needed Oxycodone-Acetamin ophen Discontinued 1 - 2 TABLET PO EVERY 4 HOURS NEEDED 14 7 June 06, 2017 12:00am May 10, 2023 5:48am benztropine mesylate 1 mg oral tablet (15 sources) Anticholinergic, Antihistamine Start: 05-26-2017 End: 05-10-2023 take 0.5 mg by mouth once daily Benztropine Discontinued 0.5 MG PO DAILY May 26, 2017 12:00am May 10, 2023 6:37am benztropine (Cog entin) 0.5 mg tablet Take by mouth. Active Benztropine Mesy late 0.5 MG Oral Tablet Quantity: 0 Refills: 0 Ordered: 23-May-2020 DO Active doxycycline monohydrate 100 mg oral capsule (4 sources) Tetracycline-class Drug Start: 06-06-2017 End: 05-10-2023 take 100 mg by mouth twice daily Doxycycline Monohydrate Discontinued 100 MG PO TWICE A DAY June 06, 2017 12:00am May 10, 2023 6:37am ferrous sulfate 325 mg oral tablet (4 sources) Start: 05-26-2017 End: 05-10-2023 take 1 tablet by mouth twice daily Ferrous Sulfate (Iron) 325 MG tablet Discontinued 325 MG PO TWICE A DAY May 26, 2017 12:00am May 10, 2023 6:37am loperamide hydrochloride 2 mg oral capsule (4 sources) Opioid Agonist Start: 05-26-2017 End: 05-10-2023 take 2 mg by mouth every eight hours Loperamide Discontinued 2 MG PO Q8H May 26, 2017 12:00am May 10, 2023 5:49am melatonin 3 mg / vitamin b6 10 mg oral tablet (4 sources) Start: 05-26-2017 End: 05-10-2023 Melatonin-Pyridox ine Hcl (B6) Discontinued 1 EACH PO AT BEDTIME May 26, 2017 12:00am May 10, 2023 5:46am 24 hr propranolol hydrochloride 80 mg extended release oral capsule (2 sources) beta-Adrenergic Kehinde Start: 05-10-2023 End: 05-14-2023 take 80 mg by mouth once daily Propranolol Discontinued 80 MG PO DAILY May 10, 2023 1:00am May 14, 2023 4:13pm Vitamin D TABS (6 sources) Vitamin D TABS Quantity: 0 Refills: 0 Ordered: 23-May-2020 DO Active Zinc (6 sources) Zinc TABS Quantity: 0 Refills: 0 Ordered: 23-May-2020 DO Active Problems Active Problems Problem Classification Problem Date Documented Da te Episodic/Chronic Cardiac dysrhythmias (3 sources) Bradycardia; Translations: [Bradycardia, unspecified] Onset: 05-21-2023 05-13-2023 Episodic Genitourinary symptoms and ill-defined conditions (11 sources) Urinary incontinence; Translations: [Urinary incontinence, unspecified] Onset: 03-04-2023 03-04-2023 Chronic Genitourinary symptoms and ill-defined conditions (20 sources) Nocturia; Translations: [Nocturia] Onset: 03-04-2023 03-04-2023 Episodic Influenza (5 sources) Influenza due to Influenza A virus; Translations: [Influenza due to other identified influenza virus with other respiratory manifestations] Onset: 05-21-2023 05-10-2023 Episodic Other lower respiratory disease (2 sources) Single lobe lung infiltrate; Translations: [Other nonspecific abnormal finding of lung field] 05-10-2023 Episodic Other lower respiratory disease (3 sources) Other nonspecific abnormal finding of lung field; Translations: [Other nonspecific abnormal finding of lung field] Onset: 05-21-2023 05-10-2023 Episodic Other nervous system disorders (2 sources) Toxic metabolic encephalopathy; Translations: [Toxic metabolic encephalopathy] 05-13-2023 Episodic Other upper respiratory disease (2 sources) Acute bronchospasm; Translations: [Acute bronchospasm] 05-10-2023 Episodic Other upper respiratory disease (2 sources) Acute bronchospasm; Translations: [Acute bronchospasm] 05-10-2023 Episodic Pneumonia (except that caused by tuberculosis or sexually transmitted disease) (1 source) Pneumonia, unspecified organism; Translations: [Pneumonia, unspecified organism] Onset: 05-21-2023 Episodic Respiratory failure; insufficiency; arrest (adult) (5 sources) Acute respiratory failure; Translations: [Acute respiratory failure with hypoxia] Onset: 05-21-2023 05-10-2023 Episodic Screening and history of mental health and substance abuse codes (5 sources) H/O: schizophrenia; Translations: [Personal history of other mental and behavioral disorders] Onset: 05-21-2023 05-10-2023 Episodic Unclassified (1 source) Other toxic encephalopathy; Translations: [Other toxic encephalopathy] Onset: 05-21-2023 Past or Other Problems Problem Classification Problem Date Documented Da te Episodic/Chronic Inflammatory conditions of male genital organs (10 sources) Abscess of scrotum; Translations: [Inflammatory disorders of scrotum] Onset: 03-05-2023 03-05-2023 Episodic Results Test Name Value Interpretation Reference Range Facility CT ABDOMEN PELVIS W IV CONTR [place] 03-26-2024 CT ABDOMEN PELVIS W IV CONTRAST Interpreted By: Masoud De Jesus, STUDY: CT ABDOMEN PELVIS W IV CONTRAST; 03/26/2024 4:22 pm INDICATION: Signs/Symptoms:hematuri a. ,R31.0 Gross hematuria COMPARISON: CT urography dated 10/24/2021. ACCESSION NUMBER(S): [id number] ORDERING CLINICIAN: NARINDER DUEÑAS TECHNIQUE: CT of the abdomen and pelvis was performed. Standard contiguous axial images were obtained at 3 mm slice thickness through the abdomen and pelvis. Coronal and sagittal reconstructions at 3 mm slice thickness were performed. 73 ML of Omnipaque 350 was administered intravenously without immediate complication. FINDINGS: LOWER CHEST: The partially visualized lower lungs are unremarkable. The heart is normal in size without significant pericardial effusion. The distal esophagus is unremarkable. ABDOMEN: There is significant motion artifact within the abdomen and pelvis which limits evaluation. Within these limitations: LIVER: The liver is normal in size without evidence of focal liver lesions. BILE DUCTS: The intrahepatic and extrahepatic ducts are not dilated. GALLBLADDER: The gallbladder is nondistended and without evidence of radiopaque stones. PANCREAS: The pancreas appears unremarkable without evidence of ductal dilatation or masses. SPLEEN: The spleen is normal in size without focal lesions. ADRENAL GLANDS: Bilateral adrenal glands appear normal. KIDNEYS AND URETERS: There is multifocal bilateral renal cortical scarring and mild asymmetric atrophy of the right kidney when compared to the left. There is mild bilateral hydroureteronephrosis to the level of the ureterovesical junction, [id number]-[id number]-lkku-right . No nephroureterolithiasis bilaterally. PELVIS: BLADDER: The urinary bladder is markedly distended with diffuse urinary bladder wall thickening and trabeculation as well as multifocal urinary bladder diverticuli. There is also diffuse urinary bladder mucosal hyperenhancement, similar to prior. REPRODUCTIVE ORGANS: Suspected postoperative changes of prior TURP. The prostate is otherwise unremarkable in appearance. BOWEL: The stomach is decompressed and limited in evaluation, however, grossly unremarkable in appearance. There is a persistent marked colorectal stool burden with associated rectal wall thickening, similar appearance to prior exam dated 10/24/2021. The remainder of the small and large bowel are normal in caliber without evidence of inflammatory wall thickening. Unremarkable appearance of the appendix. VESSELS: There is no aneurysmal dilatation of the abdominal aorta. The IVC appears normal. Moderate atherosclerotic calcifications of the abdominal aorta and its branching vessels. PERITONEUM/RETROPERITON EUM/LYMPH NODES: There is no free or loculated fluid collection, no free intraperitoneal air. The retroperitoneum appears normal. No abdominopelvic lymphadenopathy by CT size criteria. BONES AND ABDOMINAL WALL: No acute osseous abnormalities or suspicious osseous lesions. Multilevel discogenic degenerative changes are noted throughout the lower thoracic and lumbar spine with scattered intervertebral disc space narrowing and vertebral body osteophytosis. There are small bilateral fat containing inguinal hernias, [id number]-[id number]-ftci-right . There is a tiny fat containing umbilical hernia. IMPRESSION: 1. Markedly distended urinary bladder with diffuse urinary bladder wall thickening and trabeculation as well as multifocal urinary bladder diverticuli. Findings are consistent with sequela of chronic urinary bladder outlet obstruction. In the setting of persistent marked colorectal stool burden, findings are favored to be secondary to compression of the prostatic urethra by the markedly dilated stool impacted rectum. 2. Persistent marked colorectal stool burden as previously described with diffuse rectal wall thickening. 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 Recommend stool disimpaction. 3. Diffuse urinary bladder mucosal hyperenhancement. Recommend correlation with urinalysis and concern for acute cystitis. 4. Mild bilateral hydroureteronephrosis to the level of the ureterovesical junction, [id number] . Findings are likely secondary to back pressure from the markedly distended urinary bladder. 5. Remaining chronic and incidental findings as described above. MACRO: Critical Finding: See findings. Notification was initiated on 03/27/2024 at 11:[address] Masoud De Jesus. (-YCF-) Instructions: Signed by: Masoud De Jesus 03/27/2024 11:30 AM Dictation workstation: [id number] [facility] Culture, Blood (WB)on 2023 CUB No growth in 5 days. Normal [facility] Comment on above: Performed By: #### L 100.0100, L500.2500, L501.2300, L501.5200 #### [facility] [address] [place], [address] CUB No growth in 5 days. Normal [facility] Comment on above: Performed By: #### L 100.0100, L500.2500, L501.2300, L501.5200 #### [facility] [address] [place], [address] Absolute lymphocyte countOrd ered By: Kirsty Rodarte on 05-14-2023 Lymphocytes Auto (Unsp spec) [#/Vol] 0.92 10*3/uL 0.83-4.51 [facility] Automated lymphocyte count a s percentage of total leukocytesOrdered By: Kirsty Rodarte on 05-14-2023 Lymphocytes/100 WBC Auto (Unsp spec) 25.7 % 19-41 [facility] Basophil percentageOrdered B y: Kirsty Rodarte on 05-14-2023 Basophil percentage 3.4 mg/dL 2.5-4.9 [facility] Basophils/100 WBC (Bld) 0.0 % 0-1 [facility] Bilirubin [Mass/Vol] 0.30 mg/dL 0.20-1.00 [facility] Comment on above: For patients on eltr ombopag therapy, use of Dimension [place] TBIL is not recommended. Chloride [Moles/Vol] 112 mmol/L 98-107 [facility] Eosinophils/100 WBC (Bld) 0.0 % 0-5 [facility] Glucose [Mass/Vol] 106 mg/dL 74-106 [facility] Comment on above: Fasting Glucose resu lt from 100 to 125 mg/dL suggests IMPAIRED HOMEOSTASIS per A.D.A. criteria. Hemoglobin (Bld) [Mass/Vol] 9.4 g/dL 13.0-16.5 [facility] Monocytes/100 WBC (Bld) 5.3 % 0-10 [facility] Neutrophils (Bld) [#/Vol] 2.5 10*3/uL 2.0-7.7 [facility] Neutrophils/100 WBC (Bld) 68.7 % 47-70 [facility] Potassium [Moles/Vol] 4.2 mmol/L 3.5-5.1 [facility] Protein [Mass/Vol] 5.1 g/dL 6.4-8.2 [facility] Sodium [Moles/Vol] 144 mmol/L 136-145 [facility] WBC (Bld) [#/Vol] 3.6 10*3/uL 4.4-11.0 [facility] Blood manual differential co mment interpretation (narrative result)Ordered By: Kirsty Rodarte on 05-14-2023 Manual differential comment Christ (Bld) [Interp] See comment [facility] Comment on above: PANCYTOPENIA Blood platelet adequacy dete ction by light microscopyOrdered By: Kirsty Rodarte on 05-14-2023 Platelets LM Ql (Bld) SLT DEC ADEQ [facility] CBC W/Diff, Automatedon 05-01 PLT EST SLT DEC Normal [facility] Comment on above: Performed By: #### L 100.0100, L500.2500, L501.2300, L501.5200 #### [facility] [address] [place], [place], [id number] SMEAR COMMENT Normal [facility] Comment on above: Result Comment: PANC YTOPENIA Performed By: #### L 100.0100, L500.2500, L501.2300, L501.5200 #### [facility] [address] [place], [place], [id number] Comprehensive Metabolic Prof ilon 05-14-2023 Albumin [Mass/Vol] 2.4 g/dL Low 3.2-5.0 [facility] Comment on above: Performed By: #### L 100.0100, L500.2500, L501.2300, L501.5200 #### [facility] [address] [place], [address] Albumin/Globulin [Mass ratio] 0.9 {ratio} Normal 0.9-2.4 [facility] Comment on above: Performed By: #### L 100.0100, L500.2500, L501.2300, L501.5200 #### [facility] [address] [place], [address] ALK P 48 U/L Normal 45-117 [facility] Comment on above: Performed By: #### L 100.0100, L500.2500, L501.2300, L501.5200 #### [facility] [address] [place], [address] ALT [Catalytic activity/Vol] 13 U/L Low 16-61 [facility] Comment on above: Performed By: #### L 100.0100, L500.2500, L501.2300, L501.5200 #### [facility] [address] [place], [address] AST [Catalytic activity/Vol] 18 U/L Normal 15-37 [facility] Comment on above: Performed By: #### L 100.0100, L500.2500, L501.2300, L501.5200 #### [facility] [address] [place], [address] Bilirubin [Mass/Vol] 0.30 mg/dL Normal 0.20-1.00 [facility] Comment on above: Result Comment: For patients on eltrombopag therapy, use of Dimension [place] TBIL is not recommended. Performed By: #### L 100.0100, L500.2500, L501.2300, L501.5200 #### [facility] [address] [place], [address] BUN/CRE 24.8 RATIO High 10-20 [facility] Comment on above: Performed By: #### L 100.0100, L500.2500, L501.2300, L501.5200 #### [facility] [address] [place], [address] CA,Total 8.4 mg/dL Low 8.5-10.1 [facility] Comment on above: Performed By: #### L 100.0100, L500.2500, L501.2300, L501.5200 #### [facility] [address] [place], [address] Chloride [Moles/Vol] 112 mmol/L High 98-107 [facility] Comment on above: Performed By: #### L 100.0100, L500.2500, L501.2300, L501.5200 #### [facility] [address] [place], [address] CO2 [Moles/Vol] 27.0 mmol/L Normal 21.0-32.0 [facility] Comment on above: Performed By: #### L 100.0100, L500.2500, L501.2300, L501.5200 #### [facility] [address] [place], [address] Creatinine [Mass/Vol] 1.13 mg/dL Normal 0.70-1.30 [facility] Comment on above: Result Comment: The validity of the calculated GFR GFRAA in patients over 70 years has not been determined. Clinical correlation is essential. Performed By: #### L 100.0100, L500.2500, L501.2300, L501.5200 #### [facility] [address] [place], [address] ECRCL 67.78 ml/min Normal [facility] Comment on above: Performed By: #### L 100.0100, L500.2500, L501.2300, L501.5200 #### [facility] [address] [place], [address] EST GFR - AA 84 mL/min Normal >60 [facility] Comment on above: Result Comment: Afri can [place] GFR Calc Performed By: #### L 100.0100, L500.2500, L501.2300, L501.5200 #### [facility] [address] [place], [address] GAP 5 Normal 5-15 [facility] Comment on above: Performed By: #### L 100.0100, L500.2500, L501.2300, L501.5200 #### [facility] [address] [place], [address] GFR/1.73 sq M.predicted among non-blacks MDRD (S/P/Bld) [Vol rate/Area] 70 mL/min/{1.73_m2} Normal >60 [facility] Comment on above: Result Comment: Non- GFR Calc Performed By: #### L 100.0100, L500.2500, L501.2300, L501.5200 #### [facility] [address] [place], [address] Globulin (S) [Mass/Vol] 2.7 g/dL Normal 2.2-4.2 [facility] Comment on above: Performed By: #### L 100.0100, L500.2500, L501.2300, L501.5200 #### [facility] [address] [place], [address] Glucose [Mass/Vol] 106 mg/dL Normal 74-106 [facility] Comment on above: Result Comment: Fast ing Glucose result from 100 to 125 mg/dL suggests IMPAIRED HOMEOSTASIS per A.D.A. criteria. Performed By: #### L 100.0100, L500.2500, L501.2300, L501.5200 #### [facility] [address] [place], [address] Potassium [Moles/Vol] 4.2 mmol/L Normal 3.5-5.1 [facility] Comment on above: Performed By: #### L 100.0100, L500.2500, L501.2300, L501.5200 #### [facility] [address] [place], [address] Sodium [Moles/Vol] 144 mmol/L Normal 136-145 [facility] Comment on above: Performed By: #### L 100.0100, L500.2500, L501.2300, L501.5200 #### [facility] [address] [place], [address] T PROT 5.1 g/dL Low 6.4-8.2 [facility] Comment on above: Performed By: #### L 100.0100, L500.2500, L501.2300, L501.5200 #### [facility] [address] [place], [address] Urea nitrogen [Mass/Vol] 28 mg/dL High 7-18 [facility] Comment on above: Performed By: #### L 100.0100, L500.2500, L501.2300, L501.5200 #### [facility] [address] [place], [address] Consultation - Intensiviston 05-14-2023 Consultation - Sack Department Supervisor [facility] Medical Records Department [address] [place] [address] Consultation - Sack Department Supervisor 05/14/23 0914 MR#: [id number] Acct: [id number] Name: NANDO BRITO Rep #: [id number] : 1960 62 From: Scott Blandon MD PCP: Dr. Ashley Dickey MD Status:ADM IN Location: [place] [id number] Assessment Plan Assessment/Plan (1) Acute hypoxic respiratory failure: (2) Type A influenza: (3) History of schizophrenia: PLAN: Plan RECOMMENDATIONS: 1. Schedule Mucinex. Doubt patient would tolerate vest 2. Continue steroids and bronchodilators 3. Minimize sedative medications 4. Continue swallow precautions IMPRESSIONS: 1. Acute hypoxic respiratory failure secondary to influenza A, probable aspiration pneumonia in the setting of presumed COPD Patient does have a long smoking history, so obstructive lung disease would be suspected. This has not been confirmed by PFT. Patient does have significant wheezing on exam despite multiple days of antibiotics. Patient has not been able to comply with pulmonary toileting well, but CT scan does appear to have an element of atelectasis. ABG shows adequate ventilation with significant increase in a gradient. Could attempt CPAP or vest therapy for recruitment, but doubt patient would tolerate this well given his concomitant psychiatric issues. Will attempt to schedule patient's Robitussin for pulmonary toileting. Avoidance of sedative medications may be helpful for spontaneous pulmonary toileting. Patient does not appear to be clinically volume overloaded. 2. Toxic/metabolic encephalopathy/schizoaf fective disorder/anxiety/depres katrin Patient's baseline mental status does complicate his overall condition. Patient has been continued on baseline medications. Would attempt to limit sedative medications as this will d ecrease his ability for spontaneous pulmonary toileting. 3. History of adrenal insufficiency/bradycard ia/BPH/pancytopenia/CKD stage II Complicates care, management, recovery and prognosis. Patient has no signs or symptoms of bleeding at this time. Patient has received contrast, but appears to have tolerated this well. There does appear to be a discrepancy between CODE STATUS in the computer and notes, but no family is available for verification. Will defer to hospitalist. HPI Consult Data Date of Consult: 05/14/23 HPI Narrative Reason for Consultation: Hypoxia HPI Narrative: NANDO BRITO is a 62 M, with past medical history listed below, who presented to [facility] on 05/10/2023 secondary to hypoxia and shortness of breath. Patient resides at a nursing facility and has a history of COPD, schizophrenia and iron deficiency anemia. Patient was noted to have a temperature of 100.9 ???F at that time and had tested positive for influenza. Patient reportedly is an active daily smoker. In the ER, patient was afebrile, but tachypneic at 27 breaths/min. Patient did require 4 L nasal cannula as he was 84% on room air. Laboratory data showed a white blood cell count of 3, hemoglobin of 9.9 and platelets of 88. Patient also has a bicarbonate of 29 with a creatinine of 1.35. Lactate was within normal limits. Chest x-ray showed increased interstitial markings in the right base. The patient was admitted to the floor for further evaluation. Since admission, patient has had a swallow study showing some dysphagia but p.o. intake has been maintained using modifications. Patient is relatively nonverbal and unable to provide much additional information. No family is at the bedside. Unable to obtain a review of systems [facility] Medical History Adrenal insufficiency Anxiety and depression Asthma BPH (benign prostatic hyperplasia) Chronic anemia COPD (chronic obstructive pulmonary disease) Dementia Dysphagia GERD (gastroesophageal reflux disease) History of anoxic brain injury HLD (hyperlipidemia) HTN (hypertension) Hydrocele IBS (irritable bowel syndrome) Mood disorder Polyarthropathy Schizoaffective disorder Schizophrenia Seizure disorder Home Medications Dulcolax 5 mg PO PRN PRN Constipation 05/26/17 [History Last Taken Unknown] acetaminophen 325 mg tablet (Tylenol) 650 mg PO Q4H PRN Headache 05/26/17 [History Last Taken Unknown] albuterol sulfate 2.5 mg/3 mL (0.083 %) solution for nebulization 2.5 mg inhalation Q6H PRN PRN Sob /Or Wheezing 05/26/17 [History Last Taken Unknown] aluminum-mag hydroxide-simethicone 400 mg-400 mg-40 mg/5 mL oral susp (Mag-Al Plus Extra Strength) 30 ml PO Q4H PRN PRN Indigestion 05/26/17 [History Last Taken Unknown] aripiprazole 5 mg tablet 5 mg PO QHS blood thinner 05/26/17 [History Last Taken 06/05/17 20:45 1] benzocaine 15 mg-menthol 3.6 mg lozenges (Cepacol Sore Throat (benzocaine-menthol)) 1 blaire buccal PRN PRN Sore Throat 05/26/17 [History Last Taken (more content not included)... Normal [facility] Determination of erythrocyte mean corpuscular volume (MCV)Ordered By: Kirsty Rodarte on 05-14-2023 MCV (RBC) [Entitic vol] 92.6 fL 80-94 [facility] Erythrocyte distribution wid th ratioOrdered By: Kirsty Rodarte on 05-14-2023 Erythrocyte distribution width (RBC) [Ratio] 12.1 % 11.6-14.6 [facility] Erythrocyte distribution wid th standard deviationOrdered By: Kirsty Rodarte on 05-14-2023 Erythrocyte distribution width (RBC) [Entitic vol] 41.0 fL 35.1-43.9 [facility] Hematocrit Auto (Bld) [Volum e fraction]Ordered By: Kirsty Rodarte on 05-14-2023 Hematocrit (Bld) [Volume fraction] 28.8 % 40-54 [facility] Immature granulocytes/100 WB C Auto (Bld)Ordered By: Kirsty Rodarte on 05-14-2023 Immature granulocytes/100 WBC (Bld) 0.300 % 0.0-0.9 [facility] Comment on above: IG% - Immature Granu locytes (promyelocytes, myelocytes and metamyelocytes) > 1% indicates that a LEFT SHIFT is Present. Laboratory - Chemistry and C hemistry - challengeOrdered By: Kirsty Rodarte on 05-14-2023 Albumin/Globulin [Mass ratio] 0.9 {ratio} 0.9-2.4 [facility] ALP [Catalytic activity/Vol] 48 U/L 45-117 [facility] ALT [Catalytic activity/Vol] 13 U/L 16-61 [facility] CO2 [Moles/Vol] 27.0 mmol/L 21.0-32.0 [facility] Globulin (S) [Mass/Vol] 2.7 g/dL 2.2-4.2 [facility] Magnesium [Mass/Vol] 2.7 mg/dL 1.6-2.6 [facility] Urea nitrogen/Creatinine [Mass ratio] 24.8 mg/mg 10-20 [facility] - Hematology and Cell countsOrdered By: Kirsty Rodarte on 05-14-2023 MCH (RBC) [Entitic mass] 30.2 pg 27.0-32.0 [facility] MCHC (RBC) [Mass/Vol] 32.6 g/dL 32-36 [facility] Nucleated RBC/100 WBC (Bld) [Ratio] 0 % 0-5 [facility] Platelet mean volume (Bld) [Entitic vol] 10.6 fL 6.2-12.0 [facility] Platelets (Bld) [#/Vol] 92 10*3/uL 150-450 [facility] Magnesiumon 05-14-2023 Magnesium [Mass/Vol] 2.7 mg/dL High 1.6-2.6 [facility] Comment on above: Performed By: #### L 100.0100, L500.2500, L501.2300, L501.5200 #### [facility] [address] [place], [address] No Panel InformationOrdered By: Kirsty Rodarte on 05-14-2023 Estimated Creatinine Clearance Calc 67.78 ml/min [facility] Estimated GFR (MDRD) Amer 84 mL/min >60 [facility] Comment on above: GFR Calc Estimated GFR (MDRD) Non-Af Amer 70 mL/min >60 [facility] Comment on above: Non- GFR Calc Phosphoruson 05-14-2023 Phosphate [Mass/Vol] 3.4 mg/dL Normal 2.5-4.9 [facility] Comment on above: Performed By: #### L 100.0100, L500.2500, L501.2300, L501.5200 #### [facility] [address] [place], [place], [address] RBC Auto (Bld) [#/Vol]Ordere d By: Kristy Rodarte on 05-14-2023 RBC (Bld) [#/Vol] 3.11 10*6/uL 4.6-6.2 [facility] Serum or plasma calcium kristie urement (mass/volume)Ordered By: Kirsty Rodarte on 05-14-2023 Calcium [Mass/Vol] 8.4 mg/dL 8.5-10.1 [facility] Serum or plasma creatinine m easurement (mass/volume)Ordered By: Kirsty Rodarte on 05-14-2023 Creatinine [Mass/Vol] 1.13 mg/dL 0.70-1.30 [facility] Comment on above: The validity of the calculated GFR & GFRAA in patients over 70 years has not been determined. Clinical correlation is essential. Serum or plasma urea nitroge n measurement (mass/volume)Ordered By: Kirsty Rodarte on 05-14-2023 Urea nitrogen [Mass/Vol] 28 mg/dL 7-18 [facility] Thin prep Papanicolaou smear with manual screeningOrdered By: Kirsty Rodarte on 05-14-2023 Thin prep Papanicolaou smear with manual screening 2.4 g/dL 3.2-5.0 [facility] Thin prep Papanicolaou smear with manual screening 18 U/L 15-37 [facility] Thin prep Papanicolaou smear with manual screening 5 5-15 [facility] Ammoniaon 05-13-2023 Ammonia (P) [Moles/Vol] 21.0 umol/L Normal 11-32 [facility] Comment on above: Performed By: #### L 503.5510 #### [facility] [address] [place], [address] Base excessOrdered By: Brigido Rodarte on 05-13-2023 Base excess Calc (BldV) [Moles/Vol] 0 mmol/L -2-2 [facility] Basic Metabolic Profile (BMP )on 05-13-2023 BUN/CRE 24.6 RATIO High 10-20 [facility] Comment on above: Performed By: #### L 100.0100, L500.2500, L501.2300, L501.5200 #### [facility] [address] [place], [address] CA,Total 9.3 mg/dL Normal 8.5-10.1 [facility] Comment on above: Performed By: #### L 100.0100, L500.2500, L501.2300, L501.5200 #### [facility] [address] [place], [address] Chloride [Moles/Vol] 114 mmol/L High 98-107 [facility] Comment on above: Performed By: #### L 100.0100, L500.2500, L501.2300, L501.5200 #### [facility] [address] [place], [address] CO2 [Moles/Vol] 27.0 mmol/L Normal 21.0-32.0 [facility] Comment on above: Performed By: #### L 100.0100, L500.2500, L501.2300, L501.5200 #### [facility] [address] [place], [address] Creatinine [Mass/Vol] 1.14 mg/dL Normal 0.70-1.30 [facility] Comment on above: Result Comment: The validity of the calculated GFR GFRAA in patients over 70 years has not been determined. Clinical correlation is essential. Performed By: #### L 100.0100, L500.2500, L501.2300, L501.5200 #### [facility] [address] [place], [address] ECRCL 67.19 ml/min Normal [facility] Comment on above: Performed By: #### L 100.0100, L500.2500, L501.2300, L501.5200 #### [facility] [address] [place], [address] EST GFR - AA 84 mL/min Normal >60 [facility] Comment on above: Result Comment: Afri can [place] GFR Calc Performed By: #### L 100.0100, L500.2500, L501.2300, L501.5200 #### [facility] [address] [place], [address] GAP 3 Low 5-15 [facility] Comment on above: Performed By: #### L 100.0100, L500.2500, L501.2300, L501.5200 #### [facility] [address] [place], [address] GFR/1.73 sq M.predicted among non-blacks MDRD (S/P/Bld) [Vol rate/Area] 69 mL/min/{1.73_m2} Normal >60 [facility] Comment on above: Result Comment: Non- GFR Calc Performed By: #### L 100.0100, L500.2500, L501.2300, L501.5200 #### [facility] [address] [place], [address] Glucose [Mass/Vol] 110 mg/dL High 74-106 [facility] Comment on above: Result Comment: Fast ing Glucose result from 100 to 125 mg/dL suggests IMPAIRED HOMEOSTASIS per A.D.A. criteria. Performed By: #### L 100.0100, L500.2500, L501.2300, L501.5200 #### [facility] [address] [place], [address] Potassium [Moles/Vol] 3.9 mmol/L Normal 3.5-5.1 [facility] Comment on above: Performed By: #### L 100.0100, L500.2500, L501.2300, L501.5200 #### [facility] [address] [place], [address] Sodium [Moles/Vol] 144 mmol/L Normal 136-145 [facility] Comment on above: Performed By: #### L 100.0100, L500.2500, L501.2300, L501.5200 #### [facility] [address] [place], [address] Urea nitrogen [Mass/Vol] 28 mg/dL High 7-18 [facility] Comment on above: Performed By: #### L 100.0100, L500.2500, L501.2300, L501.5200 #### [facility] [address] [place], [address] Basophil percentageOrdered B y: Kirsty Rodarte on 05-13-2023 Ammonia (P) [Moles/Vol] 21.0 umol/L 11-32 [facility] Basophil percentage 25 mmol/L [facility] Basophils/100 WBC (Bld) 90 % 95-99 [facility] Bedside Glucoseon 05-13-2023 FINGERSTICK GLU 120 mg/dL High 74-106 [facility] Comment on above: Result Comment: LO CHERY OF PATIENT CARE PER NURSING PROTOCOL Performed By: #### L 100.0100, L500.2500, L501.2300, L501.5200 #### [facility] [address] [place], [address] [facility] Base excess Calc (Bld) [Moles/Vol] 0 mmol/L Normal -2 to +2 [facility] Comment on above: Performed By: #### L 100.0100, L500.2500, L501.2300, L501.5200 #### [facility] [address] [place], [address] Blood Gas Type ART Normal [facility] Comment on above: Performed By: #### L 100.0100, L500.2500, L501.2300, L501.5200 #### [facility] [address] [place], [address] CO2 [Moles/Vol] 25 mmol/L Normal [facility] Comment on above: Performed By: #### L 100.0100, L500.2500, L501.2300, L501.5200 #### [facility] [address] [place], [address] FI02 4.0 Normal [facility] [facility] Comment on above: Performed By: #### L 100.0100, L500.2500, L501.2300, L501.5200 #### [facility] [address] [place], [address] HCO3 (Bld) [Moles/Vol] 23.9 mmol/L Normal 22-26 [facility] Comment on above: Performed By: #### L 100.0100, L500.2500, L501.2300, L501.5200 #### [facility] [address] [place], [address] Mode Not entered [facility] Comment on above: Performed By: #### L 100.0100, L500.2500, L501.2300, L501.5200 #### [facility] [address] [place], [address] O2 Delivery Dev Not entered [facility] Comment on above: Performed By: #### L 100.0100, L500.2500, L501.2300, L501.5200 #### [facility] [address] [place], [address] pCO2 36.0 mmHg Normal 35-45 [facility] Comment on above: Performed By: #### L 100.0100, L500.2500, L501.2300, L501.5200 #### [facility] [address] [place], [address] pH (Bld) 7.43 [pH] Normal 7.35-7.45 [facility] Comment on above: Performed By: #### L 100.0100, L500.2500, L501.2300, L501.5200 #### [facility] [address] [place], [address] PO2 56 mmHG Low 75-100 [facility] Comment on above: Performed By: #### L 100.0100, L500.2500, L501.2300, L501.5200 #### [facility] [address] [place], [address] SITE L Brach [facility] Comment on above: Performed By: #### L 100.0100, L500.2500, L501.2300, L501.5200 #### [facility] [address] [place], [address] SO2 90 Low 95-99 [facility] Comment on above: Performed By: #### L 100.0100, L500.2500, L501.2300, L501.5200 #### [facility] [address] [place], [address] CBC W/Diff, Automatedon 05-01 PLT EST MOD DEC Normal ADEQ [facility] Comment on above: Performed By: #### L 100.0100, L500.2500, L501.2300, L501.5200 #### [facility] [address] [place], [address] REACTIVE LYMPH 1+ Normal [facility] Comment on above: Performed By: #### L 100.0100, L500.2500, L501.2300, L501.5200 #### [facility] [address] [place], [address] Measurement, pHOrdered By: Marbella Rodarte on 05-13-2023 pH (Unsp spec) 7.43 [pH] 7.35-7.45 [facility] Modified Barium Swallow Stud yon 05-13-2023 Modified Barium Swallow Study [facility] Speech Pathology [address] [place] [address] Modified Barium Swallow Study MR#: [id number] Acct: [id number] Name: NANDO BRITO Rep #: [id number] : 1960 62 From: Shirin Palencia M.A. [facility] Modified Barium Swallow Patient Information Study Date: 05/13/23 Study Time: 09:15 Direct Billable Minutes: 120 Total Minutes procedure reportin Diagnosis: Acute hypoxic respiratory failure J96.01 Referring Physician: Kirsty Rodarte Reason for Referral: Objectively assess swallow function, assess risk for aspiration, and determine recommendations for least restrictive diet textures and compensatory strategies to improve safety of swallow. Medical History: PMH: Tobacco use, Dementia unclear type with unclear behavioral disturbance history, IBS, Polyarthropathy, Hx Obstructive uropathy/BPH, Chronic oral dysphagia, Chronic anemia/iron deficiency anemia, Chronic Pancytopenia, Schizophrenia/Schizoaff ective disorder/Anxiety and Depression/Mood disorder, COPD/Asthma, Seizure disorder, Adrenal insufficiency, Hx Anoxic brain injury, GERD, HTN, HLD. He presented to the [facility] ED on 05/[facility]/23 with history of onset over the last 24 hours fever, dyspnea, tachypnea with hypoxia noted at SNF. He was admitted for management of Influenza A. Chest x-ray with increased interstitial markings right lower lobe. Speech therapy assessed the patient at bedside during his acute stay and recommended him for minced and moist textures / thin liquids. With [employer] student on 05/12/23, the patient sequentially drank liquids, had SpO2 drop 5% to 87%, and had wet breathing after the swallow. Due to concern for silent aspiration, the patient was recommended NPO with plans for MBSS today. Patient and legal guardian were agreeable to the assessment. Current Diet Ordered: NPO Dentition: Edentulous Mental Status: Impaired Respiratory Status: Oxygenating on 4L/M nasal cannula (6L) Penetration-Aspiration Scale Penetration-Aspiration Scale: OBJECTIVE ASSESSMENT OF SWALLOW FUNCTION (QUANTITATIVE ??? PER TRIAL): PENETRATION / ASPIRATION SCALE (MORALES): 1 = does not enter airway 2 = enters airway/above vocal folds/ejected 3 = enters airway/above vocal folds/not ejected 4 = enters airway/contacts vocal folds/ejected 5 = enters airway/contacts vocal folds/not ejected 6 = enters airway/below vocal folds/ejected 7 = enters airway/below vocal folds/not ejected despite effort 8 = enters airway/below vocal folds/no effort VIDEOFLOROSCOPIC SCALE SCORE (MORALES): Grade I = aspiration of material that has penetrated into the laryngeal vestibule, intact cough reflex Grade II = aspiration < 10 % of the bolus, intact cough reflex Grade III = aspiration of < 10 % of the bolus, reduced cough reflex or aspiration of > 10 % of the bolus, intact cough reflex Grade IV = aspiration of > 10 % of the bolus, reduced cough reflex Penetration-Aspiration Scale Score Thin Liquid via teaspoon: Comment: Trace amount accepted by the patient with anterior loss of a majority of the bolus. No swallow to score. Thin Liquid via teaspoon Trial 2: Result: 1= does not enter airway Thin Liquid via sequential sips: cup: Result: 1= does not enter airway Thin Liquid via single sip: straw: Result: 1= does not enter airway Pudding via teaspoon: Result: 1= does not enter airway Thin Liquid via single sip: straw Trial 2: Result: 1= does not enter airway [place] Thick Liquid via small single sip: cup: Comment: Trace NTL accepted into anterior FOM. No attempts at swallowing, so trial was unable to be scored. Thin Liquid via small single sip: cup: Result: 1= does not enter airway Oral Phase Labial Seal: Escape beyond mid-chin Tongue Control During Bolus Hold: Posterior escape of greater than half of bolus Bolus Transport/Lingual Motion: Repetitive/disorganized tongue motion Oral Residue: Majority of bolus remaining Pharyngeal Phase Initiation of Pharyngeal Swallow: Bolus head in pyriforms Soft Palate Elevation: Trace column of contrast/air between soft palate and pharyngeal wall Laryngeal Elevation: Comp. Superior move thyroid cart w/comp. apprx arytenoid cart-epig pet Anterior Hyoid Excursion: Partial anterior movement Epiglottic Movement: Complete inversion Laryngeal Vestibule Closure at Height of Swallow: Complete; no air/contrast in laryngeal vestibule Pharyngeal Stripping Wave: Present - diminished Pharyngoesophageal Segment Opening: Complete distension and complete duration; no obstruction of flow Tongue Base Retraction: Narrow column of contrast between tongue base post. pharyngeal wall Pharyngeal Residue: Trace residue within or on pharyngeal structures Diagnosis/Impression Diagnosis: Severe oral dysphagia R13.11, Mild pharyngeal dysphagia R13.13 Impression: The oral phase is primarily marked by... -Poor labial seal with barium spilling beyond mid chin by tsp. (more content not included)... Normal [facility] No Panel InformationOrdered By: Kirsty Rodarte on 05-13-2023 Arterial Blood Partial Pressure CO2 36.0 mmHg 35-45 [facility] Arterial Blood Partial Pressure O2 56 mmHG 75-100 [facility] Blood Gas Bicarbonate Actual 23.9 mmol/L 22-26 [facility] Blood Gas Oxygen Percent 4.0 [facility] Blood Gas Sample Site L Brach [facility] Blood Gas Specimen Type ART [facility] Blood Gas Vent Mode Not entered [facility] Oxygen Delivery Device Not entered [facility] No Panel InformationOrdered By: Robert Barr on 05-13-2023 Reactive Lymphocytes 1+ [facility] Thin prep Papanicolaou smear with manual screeningOrdered By: Kirsty Rodarte on 05-13-2023 Thin prep Papanicolaou smear with manual screening 120 mg/dL 74-106 [facility] Comment on above: MANAGEMENT OF PATIEN T CARE PER NURSING PROTOCOL BNP,B-Type NATRIURETIC PEPTI Taryn 05-12-2023 Natriuretic peptide B (Bld) [Mass/Vol] 171.0 pg/mL High 0-100 [facility] Comment on above: Performed By: #### L 503.6620 #### [facility] [address] [place], [address] Basic Metabolic Profile (BMP )on 05-12-2023 BUN/CRE 19.3 RATIO Normal 10-20 [facility] Comment on above: Performed By: #### L 100.0100, L500.2500, L501.2300, L501.5200 #### [facility] [address] [place], [address] CA,Total 9.2 mg/dL Normal 8.5-10.1 [facility] Comment on above: Performed By: #### L 100.0100, L500.2500, L501.2300, L501.5200 #### [facility] [address] [place], [address] Chloride [Moles/Vol] 111 mmol/L High 98-107 [facility] Comment on above: Performed By: #### L 100.0100, L500.2500, L501.2300, L501.5200 #### [facility] [address] [place], [address] CO2 [Moles/Vol] 28.0 mmol/L Normal 21.0-32.0 [facility] Comment on above: Performed By: #### L 100.0100, L500.2500, L501.2300, L501.5200 #### [facility] [address] [place], [address] Creatinine [Mass/Vol] 1.14 mg/dL Normal 0.70-1.30 [facility] Comment on above: Result Comment: The validity of the calculated GFR GFRAA in patients over 70 years has not been determined. Clinical correlation is essential. Performed By: #### L 100.0100, L500.2500, L501.2300, L501.5200 #### [facility] [address] [place], [address] ECRCL 67.19 ml/min Normal [facility] Comment on above: Performed By: #### L 100.0100, L500.2500, L501.2300, L501.5200 #### [facility] [address] [place], [address] EST GFR - AA 84 mL/min Normal >60 [facility] Comment on above: Result Comment: Afri can [place] GFR Calc Performed By: #### L 100.0100, L500.2500, L501.2300, L501.5200 #### [facility] [address] [place], [address] GAP 4 Low 5-15 [facility] Comment on above: Performed By: #### L 100.0100, L500.2500, L501.2300, L501.5200 #### [facility] [address] [place], [address] GFR/1.73 sq M.predicted among non-blacks MDRD (S/P/Bld) [Vol rate/Area] 69 mL/min/{1.73_m2} Normal >60 [facility] Comment on above: Result Comment: Non- GFR Calc Performed By: #### L 100.0100, L500.2500, L501.2300, L501.5200 #### [facility] [address] [place], [address] Glucose [Mass/Vol] 104 mg/dL Normal 74-106 [facility] Comment on above: Result Comment: Fast ing Glucose result from 100 to 125 mg/dL suggests IMPAIRED HOMEOSTASIS per A.D.A. criteria. Performed By: #### L 100.0100, L500.2500, L501.2300, L501.5200 #### [facility] [address] [place], [address] Potassium [Moles/Vol] 3.9 mmol/L Normal 3.5-5.1 [facility] Comment on above: Performed By: #### L 100.0100, L500.2500, L501.2300, L501.5200 #### [facility] [address] [place], [address] Sodium [Moles/Vol] 143 mmol/L Normal 136-145 [facility] Comment on above: Performed By: #### L 100.0100, L500.2500, L501.2300, L501.5200 #### [facility] [address] [place], [address] Urea nitrogen [Mass/Vol] 22 mg/dL High 7-18 [facility] Comment on above: Performed By: #### L 100.0100, L500.2500, L501.2300, L501.5200 #### [facility] [address] [place], [address] CBC W/Diff, Automatedon 03- Absolute Lymph 0.79 X10 3/uL Low 0.83-4.51 [facility] Comment on above: Performed By: #### L 100.0100, L500.2500, L501.2300, L501.5200 #### [facility] [address] [place], [address] Absolute Neut 4.0 X10 3/uL Normal 2.0-7.7 [facility] Comment on above: Performed By: #### L 100.0100, L500.2500, L501.2300, L501.5200 #### [facility] [address] [place], [address] Basophils/100 WBC (Bld) 0.0 % Normal 0-1 [facility] Comment on above: Performed By: #### L 100.0100, L500.2500, L501.2300, L501.5200 #### [facility] [address] [place], [address] Eosinophils/100 WBC (Bld) 0.0 % Normal 0-5 [facility] Comment on above: Performed By: #### L 100.0100, L500.2500, L501.2300, L501.5200 #### [facility] [address] [place], [address] Erythrocyte distribution width (RBC) [Ratio] 12.2 % Normal 11.6-14.6 [facility] Comment on above: Performed By: #### L 100.0100, L500.2500, L501.2300, L501.5200 #### [facility] [address] [place], [address] Hematocrit (Bld) [Volume fraction] 36.2 % Low 40-54 [facility] Comment on above: Performed By: #### L 100.0100, L500.2500, L501.2300, L501.5200 #### [facility] [address] [place], [address] Hemoglobin (Bld) [Mass/Vol] 11.6 g/dL Low 13.0-16.5 [facility] Comment on above: Performed By: #### L 100.0100, L500.2500, L501.2300, L501.5200 #### [facility] [address] [place], [address] IG% 1.000 High 0.0-0.9 [facility] Comment on above: Result Comment: IG% - Immature Granulocytes (promyelocytes, myelocytes and metamyelocytes) > 1% indicates that a LEFT SHIFT is Present. Performed By: #### L 100.0100, L500.2500, L501.2300, L501.5200 #### [facility] [address] [place], [address] Lymphocytes/100 WBC (Bld) 15.2 % Low 19-41 [facility] Comment on above: Performed By: #### L 100.0100, L500.2500, L501.2300, L501.5200 #### [facility] [address] [place], [address] MCH (RBC) [Entitic mass] 30.1 pg Normal 27.0-32.0 [facility] Comment on above: Performed By: #### L 100.0100, L500.2500, L501.2300, L501.5200 #### [facility] [address] [place], [address] MCHC (RBC) [Mass/Vol] 32.0 g/dL Normal 32-36 [facility] Comment on above: Performed By: #### L 100.0100, L500.2500, L501.2300, L501.5200 #### [facility] [address] [place], [address] MCV (RBC) [Entitic vol] 93.8 fL Normal 80-94 [facility] Comment on above: Performed By: #### L 100.0100, L500.2500, L501.2300, L501.5200 #### [facility] [address] [place], [address] Monocytes/100 WBC (Bld) 7.7 % Normal 0-10 [facility] Comment on above: Performed By: #### L 100.0100, L500.2500, L501.2300, L501.5200 #### [facility] [address] [place], [address] Neutrophils/100 WBC (Bld) 76.1 % High 47-70 [facility] Comment on above: Performed By: #### L 100.0100, L500.2500, L501.2300, L501.5200 #### [facility] [address] [place], [address] Nucleated RBC (Bld) [#/Vol] 0 10*3/uL Normal 0-5 [facility] Comment on above: Performed By: #### L 100.0100, L500.2500, L501.2300, L501.5200 #### [facility] [address] [place], [address] Platelet mean volume (Bld) [Entitic vol] 10.2 fL Normal 6.2-12.0 [facility] Comment on above: Performed By: #### L 100.0100, L500.2500, L501.2300, L501.5200 #### [facility] [address] [place], [address] Platelets (Bld) [#/Vol] 109 10*3/uL Low 150-450 [facility] Comment on above: Performed By: #### L 100.0100, L500.2500, L501.2300, L501.5200 #### [facility] [address] [place], [address] RBC (Bld) [#/Vol] 3.86 10*6/uL Low 4.6-6.2 [facility] Comment on above: Performed By: #### L 100.0100, L500.2500, L501.2300, L501.5200 #### [facility] [address] [place], [address] RDW SD 42.4 fl Normal 35.1-43.9 [facility] Comment on above: Performed By: #### L 100.0100, L500.2500, L501.2300, L501.5200 #### [facility] [address] [place], [address] WBC (Bld) [#/Vol] 5.2 10*3/uL Normal 4.4-11.0 [facility] Comment on above: Performed By: #### L 100.0100, L500.2500, L501.2300, L501.5200 #### [facility] [address] [place], [address] CTA Chest W/WO Contraston CTA Chest W/WO Contrast [facility] Imaging Services [address] [address] CTA Chest W/WO Contrast MR#: [id number] Acct: [id number] Name: NANDO BRITO Rep #: [id number] : 1960 M 62 From: Matthew aguirre MD PCP: Dr. Ashley Dickey MD Status: ADM IN Study: CTA Chest W/WO Contrast Date of Exam: 05/12/23 Exam# [id number] Ordering Dr: [place] [id number] STUDY: CTA CHEST REASON FOR EXAM: Male, 62 years old. Influenza A virus infection. COPD. RADIATION DOSAGE (If Supplied By Facility): CTDIvol = ( 14.95 ) mGy, DLP = ( 505.55 ) mGycm TECHNIQUE: The examination was performed with the intravenous administration of IV 100mL Isovue-370. Post-processing of the angiographic images was performed, with multiplanar reformation and 3D reconstruction. Individualized dose optimization techniques were used for this CT. COMPARISON: Comparison is made with prior chest radiograph dated May 10, 2023. FINDINGS: Normal enhancement of the main pulmonary artery and right and left pulmonary arteries. Normal enhancement of the bilateral peripheral pulmonary arteries. There is no demonstrated pulmonary embolism. Normal thoracic aorta and visualized great vessels. There is no demonstrated aortic dissection. Normal heart and pericardium. Normal mediastinum. Normal hilar regions. Normal visualized trachea and bronchi. The lungs are well expanded. Patchy infiltrates at the lung bases. Normal pleura. Normal chest wall structures. There are degenerative changes of thoracic spine. Normal visualized upper abdomen. CT/CTA Chest W/WO Contrast IMPRESSION: Patchy bibasilar infiltrates. No evidence of pulmonary embolism. Electronically Signed: Matthew Hartley MD at 14:24 EDT , CC: Dr. Kirsty Rodarte DO; Dr. Ashley Dickey MD Pharmacists: Signed Normal [facility] - Chemistry and C hemistry - challengeOrdered By: Kirsty Rodarte on 05-12-2023 Natriuretic peptide B (Bld) [Mass/Vol] 171.0 pg/mL 0-100 [facility] Basic Metabolic Profile (BMP )on 05-11-2023 BUN/CRE 21.8 RATIO High 10-20 [facility] Comment on above: Performed By: #### L 100.0100, L500.2500, L501.2300, L501.5200 #### [facility] [address] [place], [address] CA,Total 9.0 mg/dL Normal 8.5-10.1 [facility] Comment on above: Performed By: #### L 100.0100, L500.2500, L501.2300, L501.5200 #### [facility] [address] [place], [address] Chloride [Moles/Vol] 112 mmol/L High 98-107 [facility] Comment on above: Performed By: #### L 100.0100, L500.2500, L501.2300, L501.5200 #### [facility] [address] [place], [address] CO2 [Moles/Vol] 26.0 mmol/L Normal 21.0-32.0 [facility] Comment on above: Performed By: #### L 100.0100, L500.2500, L501.2300, L501.5200 #### [facility] [address] [place], [address] Creatinine [Mass/Vol] 0.96 mg/dL Normal 0.70-1.30 [facility] Comment on above: Result Comment: The validity of the calculated GFR GFRAA in patients over 70 years has not been determined. Clinical correlation is essential. Performed By: #### L 100.0100, L500.2500, L501.2300, L501.5200 #### [facility] [address] [place], [address] ECRCL 79.78 ml/min Normal [facility] Comment on above: Performed By: #### L 100.0100, L500.2500, L501.2300, L501.5200 #### [facility] [address] [place], [address] EST GFR - AA 101 mL/min Normal >60 [facility] Comment on above: Result Comment: Afri can [place] GFR Calc Performed By: #### L 100.0100, L500.2500, L501.2300, L501.5200 #### [facility] [address] [place], [address] GAP 3 Low 5-15 [facility] Comment on above: Performed By: #### L 100.0100, L500.2500, L501.2300, L501.5200 #### [facility] [address] [place], [address] GFR/1.73 sq M.predicted among non-blacks MDRD (S/P/Bld) [Vol rate/Area] 84 mL/min/{1.73_m2} Normal >60 [facility] Comment on above: Result Comment: Non- GFR Calc Performed By: #### L 100.0100, L500.2500, L501.2300, L501.5200 #### [facility] [address] [place], [address] Glucose [Mass/Vol] 117 mg/dL High 74-106 [facility] Comment on above: Result Comment: Fast ing Glucose result from 100 to 125 mg/dL suggests IMPAIRED HOMEOSTASIS per A.D.A. criteria. Performed By: #### L 100.0100, L500.2500, L501.2300, L501.5200 #### [facility] [address] [place], [address] Potassium [Moles/Vol] 4.1 mmol/L Normal 3.5-5.1 [facility] Comment on above: Performed By: #### L 100.0100, L500.2500, L501.2300, L501.5200 #### [facility] [address] [place], [address] Sodium [Moles/Vol] 141 mmol/L Normal 136-145 [facility] Comment on above: Performed By: #### L 100.0100, L500.2500, L501.2300, L501.5200 #### [facility] [address] [place], [address] Urea nitrogen [Mass/Vol] 21 mg/dL High 7-18 [facility] Comment on above: Performed By: #### L 100.0100, L500.2500, L501.2300, L501.5200 #### [facility] [address] [place], [address] CBC W/Diff, Automatedon - 0-2023 Absolute Lymph 0.64 X10 3/uL Low 0.83-4.51 [facility] Comment on above: Performed By: #### L 100.0100, L500.2500, L501.2300, L501.5200 #### [facility] [address] [place], [address] Absolute Neut 1.6 X10 3/uL Low 2.0-7.7 [facility] Comment on above: Performed By: #### L 100.0100, L500.2500, L501.2300, L501.5200 #### [facility] [address] [place], [address] Basophils/100 WBC (Bld) 0.0 % Normal 0-1 [facility] Comment on above: Performed By: #### L 100.0100, L500.2500, L501.2300, L501.5200 #### [facility] [address] [place], [address] Eosinophils/100 WBC (Bld) 0.0 % Normal 0-5 [facility] Comment on above: Performed By: #### L 100.0100, L500.2500, L501.2300, L501.5200 #### [facility] [address] [place], [address] Erythrocyte distribution width (RBC) [Ratio] 12.2 % Normal 11.6-14.6 [facility] Comment on above: Performed By: #### L 100.0100, L500.2500, L501.2300, L501.5200 #### [facility] [address] [place], [address] Hematocrit (Bld) [Volume fraction] 32.1 % Low 40-54 [facility] Comment on above: Performed By: #### L 100.0100, L500.2500, L501.2300, L501.5200 #### [facility] [address] [place], [address] Hemoglobin (Bld) [Mass/Vol] 10.5 g/dL Low 13.0-16.5 [facility] Comment on above: Performed By: #### L 100.0100, L500.2500, L501.2300, L501.5200 #### [facility] [address] [place], [address] IG% 0.800 Normal 0.0-0.9 [facility] Comment on above: Result Comment: IG% - Immature Granulocytes (promyelocytes, myelocytes and metamyelocytes) > 1% indicates that a LEFT SHIFT is Present. Performed By: #### L 100.0100, L500.2500, L501.2300, L501.5200 #### [facility] [address] [place], [address] Lymphocytes/100 WBC (Bld) 25.6 % Normal 19-41 [facility] Comment on above: Performed By: #### L 100.0100, L500.2500, L501.2300, L501.5200 #### [facility] [address] [place], [address] MCH (RBC) [Entitic mass] 30.8 pg Normal 27.0-32.0 [facility] Comment on above: Performed By: #### L 100.0100, L500.2500, L501.2300, L501.5200 #### [facility] [address] [place], [address] MCHC (RBC) [Mass/Vol] 32.7 g/dL Normal 32-36 [facility] Comment on above: Performed By: #### L 100.0100, L500.2500, L501.2300, L501.5200 #### [facility] [address] [place], [address] MCV (RBC) [Entitic vol] 94.1 fL High 80-94 [facility] Comment on above: Performed By: #### L 100.0100, L500.2500, L501.2300, L501.5200 #### [facility] [address] [place], [address] Monocytes/100 WBC (Bld) 8.0 % Normal 0-10 [facility] Comment on above: Performed By: #### L 100.0100, L500.2500, L501.2300, L501.5200 #### [facility] [address] [place], [address] Neutrophils/100 WBC (Bld) 65.6 % Normal 47-70 [facility] Comment on above: Performed By: #### L 100.0100, L500.2500, L501.2300, L501.5200 #### [facility] [address] [place], [address] Nucleated RBC (Bld) [#/Vol] 0 10*3/uL Normal 0-5 [facility] Comment on above: Performed By: #### L 100.0100, L500.2500, L501.2300, L501.5200 #### [facility] [address] [place], [address] Platelet mean volume (Bld) [Entitic vol] 10.0 fL Normal 6.2-12.0 [facility] Comment on above: Performed By: #### L 100.0100, L500.2500, L501.2300, L501.5200 #### [facility] [address] [place], [address] Platelets (Bld) [#/Vol] 101 10*3/uL Low 150-450 [facility] Comment on above: Performed By: #### L 100.0100, L500.2500, L501.2300, L501.5200 #### [facility] [address] [place], [address] RBC (Bld) [#/Vol] 3.41 10*6/uL Low 4.6-6.2 [facility] Comment on above: Performed By: #### L 100.0100, L500.2500, L501.2300, L501.5200 #### [facility] [address] [place], [address] RDW SD 42.1 fl Normal 35.1-43.9 [facility] Comment on above: Performed By: #### L 100.0100, L500.2500, L501.2300, L501.5200 #### [facility] [address] [place], [address] WBC (Bld) [#/Vol] 2.5 10*3/uL Low 4.4-11.0 [facility] Comment on above: Performed By: #### L 100.0100, L500.2500, L501.2300, L501.5200 #### [facility] [address] [place], [address] Magnesiumon 05-11-2023 Magnesium [Mass/Vol] 2.6 mg/dL Normal 1.6-2.6 [facility] Comment on above: Performed By: #### L 100.0100, L500.2500, L501.2300, L501.5200 #### [facility] [address] [place], [address] Phosphoruson 05-11-2023 Phosphate [Mass/Vol] 4.2 mg/dL Normal 2.5-4.9 [facility] Comment on above: Performed By: #### L 100.0100, L500.2500, L501.2300, L501.5200 #### [facility] [address] [place], [address] 12 Lead EKGon 05-10-2023 12 Lead EKG [facility] [address] [place] [address] 12 Lead EKG 05/10/23 0225 MR#: [id number] Acct: [id number] Name: NANDO BRITO Rep #: [id number] : 1960 62 From: Harsh Mckinney MD Attending Dr: Dr. Kirsty Rodarte DO Status: ADM I N Ordering Dr: Jose Olvera MD Date: 05/10/23 Location: MS3 Sex: M C Admitted: 05/10/23 Test Reason : SOB Blood Pressure : / mmHG Vent. Rate : 060 BPM Atrial Rate : 060 BPM P-R Int : 124 ms QRS Dur : 094 ms QT Int : 422 ms P-R-T Axes : 031 086 077 degrees QTc Int : 422 ms Normal sinus rhythm T wave abnormality, consider anterolateral ischemia Abnormal ECG Confirmed by Harsh Mckinney ([id number]), department editor YEIMY GIMENEZ ([id number]) on 05/13/2023 7:13:10 AM Referred By: HUBERT Confirmed By:Harsh Mckinney 05/13/23 0713 Date Harsh Mckinney MD CC: Dr. Kirsty Rodarte DO; Dr. Ashley Dickey MD; Dr. Jose Olvera MD Signed Normal [facility] Absolute lymphocyte countOrd ered By: Jose Olvera on 05-10-2023 Lymphocytes Auto (Unsp spec) [#/Vol] 0.74 10*3/uL 0.83-4.51 [facility] Automated lymphocyte count a s percentage of total leukocytesOrdered By: Jose Olvera on 05-10-2023 Lymphocytes/100 WBC Auto (Unsp spec) 24.7 % 19-41 [facility] Basophil percentageOrdered B y: Jose Olvera on 05-10-2023 Lactate [Moles/Vol] 0.6 mmol/L 0.4-2.0 [facility] Basophils/100 WBC (Bld) 0.3 % 0-1 [facility] Bilirubin [Mass/Vol] 0.30 mg/dL 0.20-1.00 [facility] Comment on above: For patients on eltr ombopag therapy, use of Dimension [place] TBIL is not recommended. Chloride [Moles/Vol] 107 mmol/L 98-107 [facility] Eosinophils/100 WBC (Bld) 0.0 % 0-5 [facility] Glucose [Mass/Vol] 99 mg/dL 74-106 [facility] Hemoglobin (Bld) [Mass/Vol] 9.9 g/dL 13.0-16.5 [facility] Monocytes/100 WBC (Bld) 9.7 % 0-10 [facility] Neutrophils (Bld) [#/Vol] 2.0 10*3/uL 2.0-7.7 [facility] Neutrophils/100 WBC (Bld) 65.0 % 47-70 [facility] Potassium [Moles/Vol] 4.1 mmol/L 3.5-5.1 [facility] Protein [Mass/Vol] 6.2 g/dL 6.4-8.2 [facility] Sodium [Moles/Vol] 139 mmol/L 136-145 [facility] WBC (Bld) [#/Vol] 3.0 10*3/uL 4.4-11.0 [facility] Blood platelet adequacy dete ction by light microscopyOrdered By: Jose Olvera on 05-10-2023 Platelets LM Ql (Bld) SLT DEC ADEQ [facility] CBC W/Diff, Automatedon Absolute Lymph 0.40 X10 3/uL Low 0.83-4.51 [facility] Comment on above: Performed By: #### L 100.0100, L500.2500, L501.2300, L501.5200 #### [facility] [address] [place], [address] Absolute Neut 1.7 X10 3/uL Low 2.0-7.7 [facility] Comment on above: Performed By: #### L 100.0100, L500.2500, L501.2300, L501.5200 #### [facility] [address] [place], [address] Basophils/100 WBC (Bld) 0.0 % Normal 0-1 [facility] Comment on above: Performed By: #### L 100.0100, L500.2500, L501.2300, L501.5200 #### [facility] [address] [place], [address] Eosinophils/100 WBC (Bld) 0.0 % Normal 0-5 [facility] Comment on above: Performed By: #### L 100.0100, L500.2500, L501.2300, L501.5200 #### [facility] [address] [place], [address] Erythrocyte distribution width (RBC) [Ratio] 12.4 % Normal 11.6-14.6 [facility] Comment on above: Performed By: #### L 100.0100, L500.2500, L501.2300, L501.5200 #### [facility] [address] [place], [address] Hematocrit (Bld) [Volume fraction] 32.0 % Low 40-54 [facility] Comment on above: Performed By: #### L 100.0100, L500.2500, L501.2300, L501.5200 #### [facility] [address] [place], [address] Hemoglobin (Bld) [Mass/Vol] 10.3 g/dL Low 13.0-16.5 [facility] Comment on above: Performed By: #### L 100.0100, L500.2500, L501.2300, L501.5200 #### [facility] [address] [place], [address] IG% 0.500 Normal 0.0-0.9 [facility] Comment on above: Result Comment: IG% - Immature Granulocytes (promyelocytes, myelocytes and metamyelocytes) > 1% indicates that a LEFT SHIFT is Present. Performed By: #### L 100.0100, L500.2500, L501.2300, L501.5200 #### [facility] [address] [place], [address] Lymphocytes/100 WBC (Bld) 18.4 % Low 19-41 [facility] Comment on above: Performed By: #### L 100.0100, L500.2500, L501.2300, L501.5200 #### [facility] [address] [place], [address] MCH (RBC) [Entitic mass] 30.0 pg Normal 27.0-32.0 [facility] Comment on above: Performed By: #### L 100.0100, L500.2500, L501.2300, L501.5200 #### [facility] [address] [place], [address] MCHC (RBC) [Mass/Vol] 32.2 g/dL Normal 32-36 [facility] Comment on above: Performed By: #### L 100.0100, L500.2500, L501.2300, L501.5200 #### [facility] [address] [place], [address] MCV (RBC) [Entitic vol] 93.3 fL Normal 80-94 [facility] Comment on above: Performed By: #### L 100.0100, L500.2500, L501.2300, L501.5200 #### [facility] [address] [place], [address] Monocytes/100 WBC (Bld) 3.7 % Normal 0-10 [facility] Comment on above: Performed By: #### L 100.0100, L500.2500, L501.2300, L501.5200 #### [facility] [address] [place], [address] Neutrophils/100 WBC (Bld) 77.4 % High 47-70 [facility] Comment on above: Performed By: #### L 100.0100, L500.2500, L501.2300, L501.5200 #### [facility] [address] [place], [address] Nucleated RBC (Bld) [#/Vol] 0 10*3/uL Normal 0-5 [facility] Comment on above: Performed By: #### L 100.0100, L500.2500, L501.2300, L501.5200 #### [facility] [address] [place], [address] Platelet mean volume (Bld) [Entitic vol] 9.7 fL Normal 6.2-12.0 [facility] Comment on above: Performed By: #### L 100.0100, L500.2500, L501.2300, L501.5200 #### [facility] [address] [place], [address] Platelets (Bld) [#/Vol] 83 10*3/uL Low 150-450 [facility] Comment on above: Performed By: #### L 100.0100, L500.2500, L501.2300, L501.5200 #### [facility] [address] [place], [address] RBC (Bld) [#/Vol] 3.43 10*6/uL Low 4.6-6.2 [facility] Comment on above: Performed By: #### L 100.0100, L500.2500, L501.2300, L501.5200 #### [facility] [address] [place], [address] RDW SD 42.6 fl Normal 35.1-43.9 [facility] Comment on above: Performed By: #### L 100.0100, L500.2500, L501.2300, L501.5200 #### [facility] [address] [place], [address] WBC (Bld) [#/Vol] 2.2 10*3/uL Low 4.4-11.0 [facility] Comment on above: Performed By: #### L 100.0100, L500.2500, L501.2300, L501.5200 #### [facility] [address] [place], [address] PLT EST SLT DEC Normal ADEQ [facility] Comment on above: Performed By: #### L 503.6005, L500.4050, L100.0100 #### [facility] [address] [place], [address] Chest 1 View (Portable)on Chest 1 View (Portable) [facility] Imaging Services [address] [place] [address] Chest 1 View (Portable) MR#: [id number] Acct: [id number] Name: NANDO BRITO Rep #: [id number] : 1960 M 62 From: Darren Cotto MD PCP: Dr. Ashley Dickey MD Status: ADM IN Study: Chest 1 View (Portable) Date of Exam: 05/10/23 Exam# [id number] Ordering [place]: [place] [id number] INDICATION: Cough, fever and hypoxia EXAMINATION: Frontal view of the chest COMPARISON: Chest x-ray November 12, 2015. FINDINGS: Frontal view of the chest was obtained. The cardiac silhouette is not enlarged. Opacities in the lower lobes bilaterally. No pneumothorax. RAD/Chest 1 View (Portable) IMPRESSION: Opacities in the lower lobes bilaterally may represent atelectasis, infection and/or aspiration. Electronically Signed: Darren Cotto MD at 4:24 EST , CC: Dr. Ashley Dickey MD; Dr. Jose Olvera MD Pharmacists: Signed Normal [facility] Comprehensive Metabolic Prof ilon 05-10-2023 Albumin [Mass/Vol] 3.0 g/dL Low 3.2-5.0 [facility] Comment on above: Performed By: #### L 100.0100, L500.2500, L501.2300, L501.5200 #### [facility] [address] [place], [address] Albumin/Globulin [Mass ratio] 0.9 {ratio} Normal 0.9-2.4 [facility] Comment on above: Performed By: #### L 100.0100, L500.2500, L501.2300, L501.5200 #### [facility] [address] [place], [address] ALK P 57 U/L Normal 45-117 [facility] Comment on above: Performed By: #### L 100.0100, L500.2500, L501.2300, L501.5200 #### [facility] [address] [place], [address] ALT [Catalytic activity/Vol] 17 U/L Normal 16-61 [facility] Comment on above: Performed By: #### L 100.0100, L500.2500, L501.2300, L501.5200 #### [facility] [address] [place], [address] AST [Catalytic activity/Vol] 20 U/L Normal 15-37 [facility] Comment on above: Performed By: #### L 100.0100, L500.2500, L501.2300, L501.5200 #### [facility] [address] [place], [address] Bilirubin [Mass/Vol] 0.40 mg/dL Normal 0.20-1.00 [facility] Comment on above: Result Comment: For patients on eltrombopag therapy, use of Dimension [place] TBIL is not recommended. Performed By: #### L 100.0100, L500.2500, L501.2300, L501.5200 #### [facility] [address] [place], [address] BUN/CRE 18.3 RATIO Normal 10-20 [facility] Comment on above: Performed By: #### L 100.0100, L500.2500, L501.2300, L501.5200 #### [facility] [address] [place], [address] CA,Total 9.1 mg/dL Normal 8.5-10.1 [facility] Comment on above: Performed By: #### L 100.0100, L500.2500, L501.2300, L501.5200 #### [facility] [address] [place], [address] Chloride [Moles/Vol] 109 mmol/L High 98-107 [facility] Comment on above: Performed By: #### L 100.0100, L500.2500, L501.2300, L501.5200 #### [facility] [address] [place], [address] CO2 [Moles/Vol] 28.0 mmol/L Normal 21.0-32.0 [facility] Comment on above: Performed By: #### L 100.0100, L500.2500, L501.2300, L501.5200 #### [facility] [address] [place], [address] Creatinine [Mass/Vol] 1.15 mg/dL Normal 0.70-1.30 [facility] Comment on above: Result Comment: The validity of the calculated GFR GFRAA in patients over 70 years has not been determined. Clinical correlation is essential. Performed By: #### L 100.0100, L500.2500, L501.2300, L501.5200 #### [facility] [address] [place], [address] ECRCL 66.60 ml/min Normal [facility] Comment on above: Performed By: #### L 100.0100, L500.2500, L501.2300, L501.5200 #### [facility] [address] [place], [address] EST GFR - AA 83 mL/min Normal >60 [facility] Comment on above: Result Comment: Afri can [place] GFR Calc Performed By: #### L 100.0100, L500.2500, L501.2300, L501.5200 #### [facility] [address] [place], [address] GAP 2 Low 5-15 [facility] Comment on above: Performed By: #### L 100.0100, L500.2500, L501.2300, L501.5200 #### [facility] [address] [place], [address] GFR/1.73 sq M.predicted among non-blacks MDRD (S/P/Bld) [Vol rate/Area] 68 mL/min/{1.73_m2} Normal >60 [facility] Comment on above: Result Comment: Non- GFR Calc Performed By: #### L 100.0100, L500.2500, L501.2300, L501.5200 #### [facility] [address] [place], [address] Globulin (S) [Mass/Vol] 3.4 g/dL Normal 2.2-4.2 [facility] Comment on above: Performed By: #### L 100.0100, L500.2500, L501.2300, L501.5200 #### [facility] [address] [place], [address] Glucose [Mass/Vol] 117 mg/dL High 74-106 [facility] Comment on above: Result Comment: Fast ing Glucose result from 100 to 125 mg/dL suggests IMPAIRED HOMEOSTASIS per A.D.A. criteria. Performed By: #### L 100.0100, L500.2500, L501.2300, L501.5200 #### [facility] [address] [place], [address] Potassium [Moles/Vol] 4.2 mmol/L Normal 3.5-5.1 [facility] Comment on above: Performed By: #### L 100.0100, L500.2500, L501.2300, L501.5200 #### [facility] [address] [place], [address] Sodium [Moles/Vol] 139 mmol/L Normal 136-145 [facility] Comment on above: Performed By: #### L 100.0100, L500.2500, L501.2300, L501.5200 #### [facility] [address] [place], [address] T PROT 6.4 g/dL Normal 6.4-8.2 [facility] Comment on above: Performed By: #### L 100.0100, L500.2500, L501.2300, L501.5200 #### [facility] [address] [place], [address] Urea nitrogen [Mass/Vol] 21 mg/dL High 7-18 [facility] Comment on above: Performed By: #### L 100.0100, L500.2500, L501.2300, L501.5200 #### [facility] [address] [place], [address] Albumin [Mass/Vol] 3.1 g/dL Low 3.2-5.0 [facility] Comment on above: Performed By: #### L 503.6005, L500.4050, L100.0100 #### [facility] [address] [place], [address] Albumin/Globulin [Mass ratio] 1.0 {ratio} Normal 0.9-2.4 [facility] Comment on above: Performed By: #### L 503.6005, L500.4050, L100.0100 #### [facility] [address] [place], [address] ALK P 53 U/L Normal 45-117 [facility] Comment on above: Performed By: #### L 503.6005, L500.4050, L100.0100 #### [facility] [address] [place], [address] ALT [Catalytic activity/Vol] 18 U/L Normal 16-61 [facility] Comment on above: Performed By: #### L 503.6005, L500.4050, L100.0100 #### [facility] [address] [place], [address] AST [Catalytic activity/Vol] 19 U/L Normal 15-37 [facility] Comment on above: Performed By: #### L 503.6005, L500.4050, L100.0100 #### [facility] [address] [place], [address] Bilirubin [Mass/Vol] 0.30 mg/dL Normal 0.20-1.00 [facility] Comment on above: Result Comment: For patients on eltrombopag therapy, use of Dimension [place] TBIL is not recommended. Performed By: #### L 503.6005, L500.4050, L100.0100 #### [facility] [address] [place], [address] BUN/CRE 15.6 RATIO Normal 10-20 [facility] Comment on above: Performed By: #### L 503.6005, L500.4050, L100.0100 #### [facility] [address] [place], [address] CA,Total 9.2 mg/dL Normal 8.5-10.1 [facility] Comment on above: Performed By: #### L 503.6005, L500.4050, L100.0100 #### [facility] [address] [place], [address] Chloride [Moles/Vol] 107 mmol/L Normal 98-107 [facility] Comment on above: Performed By: #### L 503.6005, L500.4050, L100.0100 #### [facility] [address] [place], [address] CO2 [Moles/Vol] 29.0 mmol/L Normal 21.0-32.0 [facility] Comment on above: Performed By: #### L 503.6005, L500.4050, L100.0100 #### [facility] [address] [place], [address] Creatinine [Mass/Vol] 1.35 mg/dL High 0.70-1.30 [facility] Comment on above: Result Comment: The validity of the calculated GFR GFRAA in patients over 70 years has not been determined. Clinical correlation is essential. Performed By: #### L 503.6005, L500.4050, L100.0100 #### [facility] [address] [place], [address] EST GFR - AA 69 mL/min Normal >60 [facility] Comment on above: Result Comment: Afri can [place] GFR Calc Performed By: #### L 503.6005, L500.4050, L100.0100 #### [facility] [address] [place], [address] GAP 3 Low 5-15 [facility] Comment on above: Performed By: #### L 503.6005, L500.4050, L100.0100 #### [facility] [address] [place], [address] GFR/1.73 sq M.predicted among non-blacks MDRD (S/P/Bld) [Vol rate/Area] 57 mL/min/{1.73_m2} Low >60 [facility] Comment on above: Result Comment: Non- GFR Calc Performed By: #### L 503.6005, L500.4050, L100.0100 #### [facility] [address] [place], [address] Globulin (S) [Mass/Vol] 3.1 g/dL Normal 2.2-4.2 [facility] Comment on above: Performed By: #### L 503.6005, L500.4050, L100.0100 #### [facility] [address] [place], [address] Glucose [Mass/Vol] 99 mg/dL Normal 74-106 [facility] Comment on above: Performed By: #### L 503.6005, L500.4050, L100.0100 #### [facility] [address] [place], [address] Potassium [Moles/Vol] 4.1 mmol/L Normal 3.5-5.1 [facility] Comment on above: Performed By: #### L 503.6005, L500.4050, L100.0100 #### [facility] Laboratory [address] [place], [address] Sodium [Moles/Vol] 139 mmol/L Normal 136-145 [facility] Comment on above: Performed By: #### L 503.6005, L500.4050, L100.0100 #### [facility] Laboratory [address] [place], [address] T PROT 6.2 g/dL Low 6.4-8.2 [facility] Comment on above: Performed By: #### L 503.6005, L500.4050, L100.0100 #### [facility] Laboratory [address] [place], [address] Urea nitrogen [Mass/Vol] 21 mg/dL High 7-18 [facility] Comment on above: Performed By: #### L 503.6005, L500.4050, L100.0100 #### [facility] Laboratory [address] [place], [address] Determination of erythrocyte mean corpuscular volume (MCV)Ordered By: Jose Olvera on 05-10-2023 MCV (RBC) [Entitic vol] 94.2 fL 80-94 [facility] Emergency Department Summary on 05-10-2023 Emergency Department Summary [facility] Medical Records Department [address] [place] [address] Emergency Department Summary 05/10/23 MR#: [id number] Acct: [id number] Name: NANDO BRITO Rep #: [id number] : 1960 62 From: Jose Olvera MD PCP: Dr. Ashley Dickey MD Status:REG ER Location: ED HPI History of Present Illness Chief Complaint: Shortness of Breath Detail of Chief Complaint: Fever, shortness of breath and hypoxia Informant: EMS and SNF Onset/Context/Timing Onset: - (Uncertain) Context: - (Unable to determine) Timing: Continuous Current Severity: Patient is using accessory muscles. Worsened by: - (Unable to determine) Relieved by: - (Nothing per group home staff) Associated Symptoms cough and rhinorrhea Chest Pain: Positive for - (Unknown) Narrative Narrative: Patient is 62-year-old male who resides at nursing facility. He has history of COPD, schizophrenia, iron deficiency anemia who presents because of trouble breathing. He had a low pulse ox with a documented temperature of 100.9. Reportedly had a chest x-ray recently that was read as negative residence from that facility that he been seen in emergency room have been positive for influenza type B. PE Risk Factors: Positive for - (Unable to determine) Prior similar symptoms: No Recent Illness/Hospitalization : No [facility] Medical History (Updated 05/10/23 @ 03:[address] Jose Olvera MD) Adrenal insufficiency Anxiety and depression Asthma BPH (benign prostatic hyperplasia) Chronic anemia COPD (chronic obstructive pulmonary disease) Dementia Dysphagia GERD (gastroesophageal reflux disease) History of anoxic brain injury HLD (hyperlipidemia) HTN (hypertension) Hydrocele IBS (irritable bowel syndrome) Mood disorder Polyarthropathy Schizoaffective disorder Schizophrenia Seizure disorder Home Medications Dulcolax 5 mg PO PRN PRN Constipation 05/26/17 [History Last Taken Unknown] acetaminophen 325 mg tablet (Tylenol) 650 mg PO Q4H PRN Headache 05/26/17 [History Last Taken Unknown] albuterol sulfate 2.5 mg/3 mL (0.083 %) solution for nebulization 2.5 mg inhalation Q6H PRN PRN Sob /Or Wheezing 05/26/17 [History Last Taken Unknown] aluminum-mag hydroxide-simethicone 400 mg-400 mg-40 mg/5 mL oral susp (Mag-Al Plus Extra Strength) 30 ml PO Q4H PRN PRN Indigestion 05/26/17 [History Last Taken Unknown] aripiprazole 5 mg tablet 5 mg PO QHS 05/26/17 [History Last Taken 06/05/17 20:45 1] benzocaine 15 mg-menthol 3.6 mg lozenges (Cepacol Sore Throat (benzocaine-menthol)) 1 blaire buccal PRN PRN Sore Throat 05/26/17 [History Last Taken Unknown] benztropine 1 mg tablet 0.5 mg PO DAILY 05/26/17 [History Last Taken Unknown] bisacodyl 10 mg rectal suppository 10 mg RECTAL DAILY PRN PRN Constipation 05/26/17 [History Last Taken Unknown] calcium carbonate 600 mg-vitamin D3 5 mcg (200 unit) tablet (Calcium 600 + D(3)) 1 ea PO BID 05/26/17 [History Last Taken 06/05/17 20:45 1] divalproex 125 mg capsule,delayed release sprinkle (Depakote Sprinkles) 500 mg PO BID 05/26/17 [History Last Taken 06/05/17 20:45 1] docusate sodium 100 mg capsule (DOK) 100 mg PO DAILY 05/26/17 [History Last Taken Unknown] ferrous sulfate 325 mg (65 mg iron) tablet (Iron (ferrous sulfate)) 325 mg PO BID 05/26/17 [History Last Taken Unknown] fludrocortisone 0.1 mg tablet 0.1 mg PO DAILY@0800 05/26/17 [History Last Taken Unknown] guaifenesin 100 mg/5 mL oral liquid 10 ml PO Q4H PRN PRN Cough 05/26/17 [History Last Taken Unknown] haloperidol 1 mg tablet 3 mg PO TID 05/26/17 [History Last Taken 06/05/17 20:45 1] lithium carbonate 300 mg tablet,extended release 300 mg PO BID 05/26/17 [History Last Taken 06/05/17 20:45 1] loperamide 2 mg capsule 2 mg PO Q8H PRN Diarrhea 05/26/17 [History Last Taken Unknown] lorazepam 0.5 mg tablet 0.5 mg PO TID 05/26/17 [History Last Taken 06/05/17 20:45 1] magnesium hydroxide 400 mg/5 mL oral suspension 30 ml PO DAILY PRN PRN Constipation 05/26/17 [History Last Taken Unknown] melatonin-pyridoxine HCl (vitamin B6) 3 mg-10 mg tablet 1 ea PO QHS 05/26/17 [History Last Taken Unknown] polyethylene glycol 3350 17 gram oral powder packet 17 g PO DAILY 05/26/17 [History Last Taken Unknown] tamsulosin 0.4 mg capsule (Flomax) 0.4 mg PO DAILY 05/26/17 [History Last Taken Unknown] doxycycline monohydrate 100 mg capsule 100 mg PO BID #20 caps 06/06/17 [Rx Last Taken Unknown] oxycodone-acetaminophen 5 mg-325 mg tablet 1 - 2 tab PO Q4H PRN PRN Pain 7 days #14 tabs 06/06/17 [Rx Last Taken Unknown] haloperidol lactate 5 mg/mL injection solution 5 mg IM Q3H PRN agitation 05/10/23 [History Last Taken Unknown] lorazepam 0.5 mg tablet (Ativan) 0.5 mg PO .q6hr PRN anxiety 05/10/23 [History Last Taken Unknown] Allergy/AdvReac Type Severity Reaction Status Date / Time ciprofloxacin [From Cipro] AdvReac Hives Verified 11/12/15 19:37 codeine AdvReac Hive (more content not included)... Normal [facility] Erythrocyte distribution wid th ratioOrdered By: Jose Olvera on 03-09-2024 Erythrocyte distribution width (RBC) [Ratio] 12.5 % 11.6-14.6 [facility] Erythrocyte distribution wid th standard deviationOrdered By: Jose Olvera on 05-10-2023 Erythrocyte distribution width (RBC) [Entitic vol] 43.1 fL 35.1-43.9 [facility] H AND P Exam - Hospitaliston 05-10-2023 H&P Exam - Hospitalist [facility] Medical Records Department [address] [place] [address] H P Exam - Hospitalist 05/10/23 0318 MR#: [id number] Acct: [id number] Name: NANDO BRITO Rep #: [id number] : 1960 62 From: Roxanne More MD PCP: Dr. Ashley Dickey MD Status:REG ER Location: ED HPI - General General Date of Admission: 05/10/23 Date of Service: 05/10/23 Chief Complaint: Dyspnea, hypoxia, increased work of breathing, fever. HPI Narrative The patient is a 62 y/o M w/ PMHx: Tobacco use, Dementia unclear type with unclear behavioral disturbance history, IBS, Polyarthropathy, Hx Obstructive uropathy/BPH, Chronic oral dysphagia, Ch ronic anemia/iron deficiency anemia, Chronic Pancytopenia, Schizophrenia/Schizoaff ective disorder/An xiety and Depression/Mood disorder, COPD/Asthma, Seizure disorder, Adrenal insufficiency, Hx Anoxic brain injury, GERD, HTN, HLD who presents to the [facility] ED on 05/10/23 with history of onset over the las t 24 hours fever, dyspnea, tachypnea with hypoxia noted at snf facility with accessory m uscle usage and temperature documented at facility 100.9 with recent reported chest x-ray that had b een unremarkable and negative influenza/COVID/RSV testing also but given ongoing symptoms prompted r spenceral to ED for evaluation. In the emergency room patient is alert and awake although evidence of mild respiratory distress but does not verbally communicate which suspect is his baseline. Workup in the ED included T97.4, heart rate 65, BP 108/59, respiratory rate 27, 84% on room air initially with improvement to 94% on 4 L nasal cannula, CBC with WBC 3.0, hemoglobin 9.9, MCV 94.2, platelets 88 with lymphopenia, CMP with BUN/creatinine 21/1.35, GFR 57, hepatic profile otherwise not marked lora earing, lactic acid 0.6, blood culture x 2 pending per ED, rapid SARS COVID/influenza/RSV PCR with I nfluenza A, chest x-ray with increased interstitial markings right lower lobe with no comparison becca ilable pending radiology read, EKG with sinus rhythm with flipped T waves anteriorly with no old EKG for comparison. In the ED patient ministered DuoNeb therapy, Tamiflu 75 mg p.o. x 1 as well as Merle u-Medrol 125 mg IV x 1. [facility] Medical History (Updated 05/10/23 @ 03:[address] Jose Olvera MD) Adrenal insufficiency Anxiety and depression Asthma BPH (benign prostatic hyperplasia) Chronic anemia COPD (chronic obstructive pulmonary disease) Dementia Dysphagia GERD (gastroesophageal reflux disease) History of anoxic brain injury HLD (hyperlipidemia) HTN (hypertension) Hydrocele IBS (irritable bowel syndrome) Mood disorder Polyarthropathy Schizoaffective disorder Schizophrenia Seizure disorder Home Medications Dulcolax 5 mg PO PRN PRN Constipation 05/26/17 [History Last Taken Unknown] acetaminophen 325 mg tablet (Tylenol) 650 mg PO Q4H PRN Headache 05/26/17 [History Last Taken Unknown] albuterol sulfate 2.5 mg/3 mL (0.083 %) solution for nebulization 2.5 mg inhalation Q6H PRN PRN Sob /Or Wheezing 05/26/17 [History Last Taken Unknown] aluminum-mag hydroxide-simethicone 400 mg-400 mg-40 mg/5 mL oral susp (Mag-Al Plus Extra Strength) 30 ml PO Q4H PRN PRN Indigestion 05/26/17 [History Last Taken Unknown] aripiprazole 5 mg tablet 5 mg PO QHS 05/26/17 [History Last Taken 06/05/17 20:45 1] benzocaine 15 mg-menthol 3.6 mg lozenges (Cepacol Sore Throat (benzocaine-menthol)) 1 blaire buccal PRN PRN Sore Throat 05/26/17 [History Last Taken Unknown] benztropine 1 mg tablet 0.5 mg PO DAILY 05/26/17 [History Last Taken Unknown] bisacodyl 10 mg rectal suppository 10 mg RECTAL DAILY PRN PRN Constipation 05/26/17 [History Last Taken Unknown] calcium carbonate 600 mg-vitamin D3 5 mcg (200 unit) tablet (Calcium 600 + D(3)) 1 ea PO BID 05/26/17 [History Last Taken 06/05/17 20:45 1] divalproex 125 mg capsule,delayed release sprinkle (Depakote Sprinkles) 500 mg PO BID 05/26/17 [History Last Taken 06/05/17 20:45 1] docusate sodium 100 mg capsule (DOK) 100 mg PO DAILY 05/26/17 [History Last Taken Unknown] ferrous sulfate 325 mg (65 mg iron) tablet (Iron (ferrous sulfate)) 325 mg PO BID 05/26/17 [History Last Taken Unknown] fludrocortisone 0.1 mg tablet 0.1 mg PO DAILY@0800 05/26/17 [History Last Taken Unknown] guaifenesin 100 mg/5 mL oral liquid 10 ml PO Q4H PRN PRN Cough 05/26/17 [History Last Taken Unknown] haloperidol 1 mg tablet 3 mg PO TID 05/26/17 [History Last Taken 06/05/17 20:45 1] lithium carbonate 300 mg tablet,extended release 300 mg PO BID 05/26/17 [History Last Taken 06/05/17 20:45 1] loperamide 2 mg capsule 2 mg PO Q8H PRN Diarrhea 05/26/17 [History Last Taken Unknown] lorazepam 0.5 mg tablet 0.5 mg PO TID 05/26/17 [History Last Taken 06/05/17 20:45 1] magnesium hydroxide 400 mg/5 mL oral suspension 30 ml PO DAILY PRN PRN Constipation 05/26/17 [History Last Taken Unknown] melatonin-pyridoxine HCl (vitamin (more content not included)... Normal [facility] Hematocrit Auto (Bld) [Volum e fraction]Ordered By: Jose Olvera on 05-10-2023 Hematocrit (Bld) [Volume fraction] 31.1 % 40-54 [facility] Immature granulocytes/100 WB C Auto (Bld)Ordered By: Jose Olvera on 05-10-2023 Immature granulocytes/100 WBC (Bld) 0.300 % 0.0-0.9 [facility] Comment on above: IG% - Immature Granu locytes (promyelocytes, myelocytes and metamyelocytes) > 1% indicates that a LEFT SHIFT is Present. L501.4020on 05-10-2023 TROPONIN-I HS 9 pg/mL Normal 3.0-78.0 [facility] Comment on above: Order Comment: 'TROP ' Serial specimen #1, #2 or #3: 1 Result Comment: Silvio thornton Note: New Test Units and Gender Specific Reference Ranges. For more information see Policy Stat Procedure [place] High Sensitivity Troponin (TNIH) and attachments. Performed By: #### L 100.0100, L500.2500, L501.2300, L501.5200 #### [facility] Laboratory [address] [place], [place], [id number] Laboratory - Chemistry and C hemistry - challengeOrdered By: Josenahum Olvera on 05-10-2023 Albumin/Globulin [Mass ratio] 1.0 {ratio} 0.9-2.4 [facility] ALP [Catalytic activity/Vol] 53 U/L 45-117 [facility] ALT [Catalytic activity/Vol] 18 U/L 16-61 [facility] CO2 [Moles/Vol] 29.0 mmol/L 21.0-32.0 [facility] Globulin (S) [Mass/Vol] 3.1 g/dL 2.2-4.2 [facility] Urea nitrogen/Creatinine [Mass ratio] 15.6 mg/mg 10-20 [facility] Laboratory - Hematology and Cell countsOrdered By: Josenahum Olvera on 05-10-2023 MCH (RBC) [Entitic mass] 30.0 pg 27.0-32.0 [facility] MCHC (RBC) [Mass/Vol] 31.8 g/dL 32-36 [facility] Nucleated RBC/100 WBC (Bld) [Ratio] 0 % 0-5 [facility] Platelet mean volume (Bld) [Entitic vol] 10.2 fL 6.2-12.0 [facility] Platelets (Bld) [#/Vol] 88 10*3/uL 150-450 [facility] Laboratory - Microbiology an d Antimicrobial susceptibilityOrdered By: Jsoenahum Olvera on 05-10-2023 SARS-CoV-2 (COVID-19) RNA KYLIE+probe Ql (Unsp spec) Influenzae A [facility] SARS-CoV-2 (COVID-19) RNA KYLIE+probe Ql (Unsp spec) Influenzae A [facility] Lactic Acidon 05-10-2023 Lactate [Moles/Vol] 0.6 mmol/L Normal 0.4-1.9 [facility] Comment on above: Order Comment: Y Performed By: #### L 503.6005, L500.4050, L100.0100 #### [facility] Laboratory [address] [place], [address] M100.678on 05-10-2023 M100.678 Copy of report sent to Infection Control Printer [id number] 05/10/23 0626 BLUCAS. Normal Reference Range = Negative COV + FLU + RSV PCR GeneXpert Instrument, PCR method CRITICAL VALUE VERIFIED. CALLED TO [facility] 05/10/23 0353 Ayaz Medina. RESULTS READ BACK BY SAME. SARS-CoV-2 (COVID 19) Negative INFLUENZA A Positive A INFLUENZA A Positive A RSV PCR Negative FLUA Normal [facility] Comment on above: Performed By: #### L 100.0100, L500.2500, L501.2300, L501.5200 #### [facility] Laboratory [address] [place], [address] No Panel InformationOrdered By: Jose Olvera on 05-10-2023 Estimated GFR (MDRD) Amer 69 mL/min >60 [facility] Comment on above: GFR Calc Estimated GFR (MDRD) Non-Af Amer 57 mL/min >60 [facility] Comment on above: Non- GFR Calc Troponin I High Sensitivity 9 pg/mL 3.0-78.0 [facility] Comment on above: Please Note: New [place] t Units and Gender Specific Reference Ranges. For more information see Policy Stat Procedure [place] High Sensitivity Troponin (TNIH) and attachments. Procalcitoninon 05-10-2023 Procalcitonin 0.10 ng/mL High 0.00-0.09 [facility] Comment on above: Result Comment: A procalcitonin (PCT) level above 2.0 ng/mL on the first day of ICU admission is associated with a high risk for progression to severe sepsis and/or septic shock. A PCT level below 0.5 ng/mL on the first day of ICU admission is associated with a low risk for progression to severe and/or septic shock. Note: Concentrations <0.5 ng/mL do not exclude an infection on account of localized infections (without systemic signs) which can be associated with such low concentrations, or a systemic infection in its initial stages (<6 hours). Furthermore, increased procalcitonin can occur without infection. PCT concentrations between 0.5 and 2.0 ng/mL should be interpreted taking into account the patient's history. It is recommended to retest PCT within 6-24 hours if any concentrations <2 ng/mL are obtained. Performed By: #### L 509.7000 #### [facility] Laboratory [address] [place] [address]. [place], [address] RBC Auto (Bld) [#/Vol]Ordere d By: Jose Olvera on 05-10-2023 RBC (Bld) [#/Vol] 3.30 10*6/uL 4.6-6.2 [facility] Serum or plasma calcium kristie urement (mass/volume)Ordered By: Jose Olvera on 05-10-2023 Calcium [Mass/Vol] 9.2 mg/dL 8.5-10.1 [facility] Serum or plasma creatinine m easurement (mass/volume)Ordered By: Jose Olvera on 05-10-2023 Creatinine [Mass/Vol] 1.35 mg/dL 0.70-1.30 [facility] Comment on above: The validity of the calculated GFR & GFRAA in patients over 70 years has not been determined. Clinical correlation is essential. Serum or plasma urea nitroge n measurement (mass/volume)Ordered By: Jose Olvera on 05-10-2023 Urea nitrogen [Mass/Vol] 21 mg/dL 7-18 [facility] Serum procalcitonin measurem entOrdered By: Roxanne More on 05-10-2023 Procalcitonin [Mass/Vol] 0.10 ng/mL 0.00-0.09 [facility] Comment on above: A procalcitonin (PCT ) level above 2.0 ng/mL on the first day of ICU admission is associated with a high risk for progression to severe sepsis and/or septic shock. A PCT level below 0.5 ng/mL on the first day of ICU admission is associated with a low risk for progression to severe and/or septic shock. Note: Concentrations <0.5 ng/mL do not exclude an infection on account of localized infections (without systemic signs) which can be associated with such low concentrations, or a systemic infection in its initial stages (<6 hours). Furthermore, increased procalcitonin can occur without infection. PCT concentrations between 0.5 and 2.0 ng/mL should be interpreted taking into account the patient's history. It is recommended to retest PCT within 6-24 hours if any concentrations <2 ng/mL are obtained. Thin prep Papanicolaou smear with manual screeningOrdered By: Jose Olvera on 05-10-2023 Thin prep Papanicolaou smear with manual screening 3.1 g/dL 3.2-5.0 [facility] Thin prep Papanicolaou smear with manual screening 19 U/L 15-37 [facility] Thin prep Papanicolaou smear with manual screening 3 5-15 [facility] Office Visit (Urology)on Follow-up visit Diagnoses/Problems Assessed Nocturia (788.43) (R35.1) Urinary incontinence (788.30) (R32) Patient Discussion/Summary Past CT reviewed U/S reviewed Cysto notes reviewed UA ordered All available PSA values reviewed, Options discussed. Questions answered. New PSA ordered Treatment options for LUTS reviewed Discussed timed voiding. Discussed fluid and caffeine intake Observe ED Lifestyle change to help prevent UTIs discussed. Encouraged fluid intake. F/U 1 year with PSA Chief Complaint 6 MONTH F/U History of Present IllnessChronic hx of gross hematuria. Pt did have a recent U/S done 05/23 which was normal... U/S on 09/21 showed apparent solid lesion on the right suspected for neoplasm however follow up CT urogram on 10/22 showed no renal mass, stone or hydro.. Normal cysto on 10/22. Some urgency and frequency. He is incontinent most of the time and wears depends daily. He is taking Flomax. .Hx of urinary retention. Most recent PSA was 0.49 (08/22) Previous PSA was 0.8 (08/21) . Pt states he is having testicular pain..pt states the pain is intermittent.. Review of Systems Eye: negative Respiratory: No shortness of breath, No cough. Cardiovascular: No chest pain Gastrointestinal: No nausea Genitourinary: Negative except as documented in history of present illness. Hematology/Lymphatics: Patient denies being on blood thinners.. Endocrine: Negative. Immunologic: Not immunocompromised. Musculoskeletal: negative Integumentary: Negative. Neurologic: Alert and oriented X4. Psychiatric: Negative. Active Problems Problems Dysuria (788.1) (R30.0) Gross hematuria (599.71) (R31.0) History of UTI (V13.02) (Z87.440) Nocturia (788.43) (R35.1) Urinary frequency (788.41) (R35.0) Urinary incontinence (788.30) (R32) Urinary retention (788.20) (R33.9) Surgical History Problems No history of surgery Family History Mother No pertinent family history Father No pertinent family history Social History Problems Current every day smoker (305.1) (F17.200) Allergies Medication Bactrim Recorded By: Griffin Calloway; 05/22/2020 2:15:11 PM Cipro Recorded By: Griffin Calloway; 05/22/2020 2:15:11 PM codeine Recorded By: Griffin Calloway; 05/22/2020 2:15:11 PM Penicillins Recorded By: Griffin Calloway; 05/22/2020 2:15:11 PM Current Meds Medication NameInstruction ARIPiprazole 5 MG Oral Tablet Ativan 0.5 MG Oral Tablet Benztropine Mesylate 0.5 MG Oral Tablet Calcium 500 MG TABS Divalproex Sodium 125 MG Oral Tablet Delayed Release Dulcolax 10 MG Rectal Suppository Fludrocortisone Acetate 0.1 MG Oral Tablet Folic Acid 1 MG Oral Tablet Haloperidol 1 MG Oral Tablet Haloperidol 2 MG Oral Tablet Lactulose 10 GM Oral Packet Lipitor 40 MG Oral Tablet [place] Carbonate 300 MG Oral Tablet Melatonin 3 MG Oral Tablet Milk of Magnesia 400 MG/5ML Oral Suspension MiraLax 17 GM Oral Packet Mylanta 200-200-20 MG/5ML SUSP Nicorette Mini 2 MG Mouth/Throat Lozenge Paxil 20 MG Oral Tablet Tamsulosin HCl - 0.4 MG Oral Capsule Tylenol 325 MG Oral Capsule Vitamin D TABS Zinc TABS Vitals Vital Signs Recorded: 03Jul2022 09:12AM Heart [id number] [id number] Esmyncanh70 Oqdnsp540 lb 6 oz BMI Qjvnfqyyan62.65 kg/m2 BSA Calculated1.83 Tobacco Usea) Yes Patient encouraged to stop using tobacco productsYes PHQ-2 Patient Declined/Screening not indicatedYes Falls Screening (Age 18+)a) No falls within the last year Physical Exam A/O x 3 in No apparent distress Constitutional: General appearance normal Respiratory: Respiratory effort is normal Gastrointestinal:Abdome n is not tender Genitourinary: Kidneys: Not palpable Bilaterally Bladder: Not palpable or tender Scrotum: No mass. No Hydrocele Epididymis: No spermatocele. Not tender Testicles: no mass Urethra: No Discharge Penis: WNL...No lesions. circumcised Prostate: Symmetric. No Nodules. smooth Seminal Vesicles: No mass Sphincter Tone: normal Signatures Electronically signed by : Narinder Dueñas II, MD; Jul 03 2022 9:31AM EST (Author) Normal [employer] Tobacco Screening.on 023 Fall risk assessment a) No falls within the last year [id number] [employer] Work Phone: Tobacco use status CPHS a) Yes M P-Urology-A [employer] Work Phone: Tobacco Screening. Yes MP-Uro logy-A [employer] Phone: Office Visit (Urology)on Follow-up visit Diagnoses/Problems Assessed Nocturia (788.43) (R35.1) Urinary incontinence (788.30) (R32) History of UTI (V13.02) (Z87.440) Patient Discussion/Summary CT reviewed WIll follow up with abdominal U/S as suggested Labs reviewed All available PSA values reviewed, Options discussed. Questions answered. Diet changes for prostate health discussed and educational information given. Pros/Cons of prostate health supplements discussed. Treatment options for LUTS reviewed FLomax Rx refilled Discussed timed voiding. Discussed fluid and caffeine intake Observe ED Lifestyle change to help prevent UTIs discussed. Encouraged fluid intake. F/u 6 months with Complete Abdominal U/S Chief Complaint CT results History of Present IllnessPatient is here for CT urogram results. U/S on 09/21 showed apparent solid lesion on the right suspected for neoplasm. CT urogram on 10/22 showed no renal mass, stone or hydro. Hx of gross hematuria. Normal cysto on 10/22. Some urgency and frequency. He is incontinent most of the time and wears depends daily. He is taking Flomax. .Hx of urinary retention. Most recent CR was 1.0 and BUn was 17 on 12/22. He is taking Flomax. Most recent PSA was 0.49 (08/22) Previous PSA was 0.8 (08/21) . Review of Systems Constitutional: No fever, No chills. Eye: Negative. Ear/Nose/Mouth/Throat: Negative. Respiratory: No shortness of breath, No cough. Cardiovascular: No chest pain, No peripheral edema. Gastrointestinal: No nausea, Genitourinary: Negative except as documented in history of present illness. Hematology/Lymphatics: Patient denies being on blood thinners.. Endocrine: Negative. Immunologic: Not immunocompromised. Musculoskeletal: Negative Integumentary: Negative. Neurologic: Alert and oriented X4. Psychiatric: Negative. Active Problems Problems Dysuria (788.1) (R30.0) Gross hematuria (599.71) (R31.0) History of UTI (V13.02) (Z87.440) Nocturia (788.43) (R35.1) Urinary frequency (788.41) (R35.0) Urinary retention (788.20) (R33.9) Surgical History Problems No history of surgery Family History Mother No pertinent family history Father No pertinent family history Social History Problems Current every day smoker (305.1) (F17.200) Allergies Medication Bactrim Recorded By: Griffin Calloway; 05/22/2020 2:15:11 PM Cipro Recorded By: Griffin Calloway; 05/22/2020 2:15:11 PM codeine Recorded By: Griffin Calloway; 05/22/2020 2:15:11 PM Penicillins Recorded By: Griffin Calloway; 05/22/2020 2:15:11 PM Current Meds Medication NameInstruction ARIPiprazole 5 MG Oral Tablet Ativan 0.5 MG Oral Tablet Benztropine Mesylate 0.5 MG Oral Tablet Calcium 500 MG TABS Divalproex Sodium 125 MG Oral Tablet Delayed Release Dulcolax 10 MG Rectal Suppository Fludrocortisone Acetate 0.1 MG Oral Tablet Folic Acid 1 MG Oral Tablet Haloperidol 1 MG Oral Tablet Haloperidol 2 MG Oral Tablet Lactulose 10 GM Oral Packet Lipitor 40 MG Oral Tablet Archer Carbonate 300 MG Oral Tablet Melatonin 3 MG Oral Tablet Milk of Magnesia 400 MG/5ML Oral Suspension MiraLax 17 GM Oral Packet Mylanta 200-200-20 MG/5ML SUSP Nicorette Mini 2 MG Mouth/Throat Lozenge Paxil 20 MG Oral Tablet Tamsulosin HCl - 0.4 MG Oral Capsule Tylenol 325 MG Oral Capsule Vitamin D TABS Zinc TABS Vitals Vital Signs Recorded: 02Jan2022 08:18AM Heart Goes220 Eettwwdx478 Rnemfwypi04 Dcoriz987 lb BMI Tktholjyup59.75 kg/m2 BSA Calculated1.83 Tobacco Usea) Yes Patient encouraged to stop using tobacco productsYes PHQ-2 #1. Over the last 2 weeks have you felt down, depressed or hopeless? (If yes, answer PHQ-9 below)No PHQ-2 #2. Over the last 2 weeks have you felt little interest or pleasure in doing things? (If yes, answer PHQ-9 below)No Falls Screening (Age 18+)a) No falls within the last year Physical Exam A/O x 3 in No apparent distress Constitutional: General appearance normal Respiratory: Respiratory effort is normal Gastrointestinal:Abdome n is not tender Genitourinary: Kidneys: Not palpable Bilaterally Bladder: Not palpable or tender Scrotum: No mass. No Hydrocele Epididymis: No spermatocele. Not tender Testicles: no mass Urethra: No Discharge Penis: WNL...No lesions Prostate: deferred Signatures Electronically signed by : Narinder Dueñas II, MD; Jan 02 2022 8:29AM EST (Author) Normal [facility] CT UROGRAPHY with 3D VOLUME RENDERED IMAGINGon 10-24-2021 CT UROGRAPHY with 3D VOLUME RENDERED IMAGING Patient Name: NANDO BRITO STUDY: CT UROGRAPHY WITH AND WITHOUT CONTRAST; 10/24/2021 10:09 am INDICATION: GROSS HEMATURIA R31.0: Gross hematuria. COMPARISON: None. ACCESSION NUMBER(S): [id number] ORDERING CLINICIAN: NARINDER DUEÑAS TECHNIQUE: CT of the abdomen and pelvis was performed. MULTIPHASE KIDNEY protocol was performed including contiguous axial images through the abdomen at 3 mm slice thickness, without contrast, followed by portal venous phase and delayed images. Coronal and sagittal reconstructions at 3 mm slice thickness were performed. MIP coronal and sagittal images as well as 3D VR images were obtained. 150 milliliter of OMNIPAQUE 350 were administered intravenously without immediate complication. FINDINGS: LOWER CHEST: The visualized lung base is unremarkable. The heart is normal in size without evidence of pericardial effusion. No pleural effusion is evident. KIDNEYS AND URETERS: The left kidney measures 11 cm in length, and the right kidney 9.7 cm in length. Focal scarring is seen, in the lateral portion of the mid right kidney with a focal dilatation of a calyx adjacent to this portion of the kidney consistent with chronic focal pyelonephritis. There is similar scarring, in the midportion of the left kidney posteriorly with clubbing of the calyx adjacent to this compatible with chronic focal pyelonephritis. The nephrograms are normal bilaterally. A 6 mm hypodensity is seen in the posterior mid left kidney consistent with a cyst. No solid mass lesion or area of abnormal enhancement is seen, in the renal parenchyma on either side. No calculus. Both ureters are slightly dilated with the left ureter entering the urinary bladder in a normal position where as the right ureter enters the urinary bladder at a right angle to the wall of the urinary bladder. A right-sided ureteral jet can be seen. There is no hydronephrosis. No abnormal urothelial enhancement or filling defect evident in the renal collecting systems or opacified portions of the ureters. BLADDER: The urinary bladder is elongated and is pushed to the left, by a distended fecal filled sigmoid colon. Slight mucosal hyperenhancement is seen, in the superior portion of the urinary bladder along with mild stranding of the perivesical fat suggestive of cystitis. A septum is seen at the posterior aspect of the urinary bladder as seen at image 133/169 of series 6. The prostatic urethra is dilated. A 6 mm nodule is seen in the fat adjacent to the right side of the urinary bladder at image 118 of series 6. ABDOMEN: LIVER: Normal size, contour, and density. A focal area of decreased density is seen, in segment 4 of the liver adjacent to the falciform ligament at image 42 series 6 not evident on delayed images which may be an area of focal fatty change. A focal area of decreased attenuation measuring 1.5 cm is seen in the lateral segment of the left lobe of the liver at image 34/169 of series 6 which has a density higher than that of water. Ultrasound evaluation of the liver is recommended. GALLBLADDER: Normal size gallbladder. No radiopaque gallstones. BILE DUCTS: Normal caliber. PANCREAS: The pancreas appears within normal limits, no evidence of pancreatitis or mass. SPLEEN: Normal size. Homogeneous enhancement. ADRENAL GLANDS: Within normal limits. PELVIS: REPRODUCTIVE ORGANS: The prostate is unremarkable. BOWEL: The stomach is unremarkable. The small bowel is normal in caliber without evidence of focal wall thickening or obstruction. The rectum and sigmoid are distended with a large amount of retained fecal material. There is considerable fecal material throughout the rest of the colon. The appendix is normal in size. VESSELS: The aorta and IVC are within normal limits. The principal vasculature of the abdomen and pelvis is patent. No aneurysm. PERITONEUM/RETROPERITON EUM/LYMPH NODES: There is no free or loculated intraperitoneal or retroperitoneal fluid collection, no free intraperitoneal air. No adenopathy. BONES AND ABDOMINAL WALL: No evidence of acute fracture. No suspicious osseous lesions are identified. The lumbar vertebrae are slightly osteoporotic without any compression. The abdominal wall soft tissues appear normal. A fat containing right inguinal hernia is present. IMPRESSION: 1. No renal mass, calculus or hydronephrosis. No filling defect in the collecting system or ureters on either side. Areas of cortical atrophy in both kidneys consistent with chronic focal pyelonephritis 2. Abnormal course of the right ureter which enters the urinary bladder in a more anterior position. Mildly dilated ureters bilaterally without an obstructing lesion. 3. Hyperenhancement of the mucosa and stranding of the fat around the dome of the urinary bladder suggestive of cystitis. 4. Ultrasound (more content not included)... Normal [facility] CT Urography with 3D Volume Rendered Imagingon 10-24-2021 CT Urography with 3D Volume Rendered Imaging Normal MP-Urolo gy-R [facility] 232 DO Work Phone: Office Visit (Urology)on Follow-up visit Diagnoses/Problems Assessed Gross hematuria (599.71) (R31.0) Orders Gross hematuria Follow-up visit in 2 weeks Outpatient Follow-up AFTER CT AND LABS Status: Hold For - Scheduling,Retrospectiv e Authorization Requested for: 10Oct2021 Ordered Stat;For: Gross hematuria; Ordered By: Narinder Dueñas II Performed: Due: 08Jan2022; Last Updated By: Patricia Rawls; 10/10/2021 11:09:29 AM Blood Urea Nitrogen, Serum; Status:Active - Retrospective Authorization; Requested for:10Oct2021; Perform:Lab Services - Lab To Draw (Blood Test); Due:08Jan2022; Last Updated By:Patricia Rawls; 10/10/2021 11:09:29 AM;Ordered; For:Gross hematuria; Ordered By:Narinder Dueñas II; Creatinine, Serum; Status:Active - Retrospective Authorization; Requested for:10Oct2021; Perform:Lab Services - Lab To Draw (Blood Test); Due:08Jan2022; Last Updated By:Patricia Rawls; 10/10/2021 11:09:29 AM;Ordered; For:Gross hematuria; Ordered By:Narinder Dueñas II; CT Urography with 3D Volume Rendered Imaging; Status:Hold For - Scheduling,Retrospectiv e Authorization; Requested for:10Oct2021; Perform:[facility] Radiology Services Imaging; Due:08Jan2022; Last Updated By:Patricia Rawls; 10/10/2021 11:09:29 AM;Ordered; For:Gross hematuria; Ordered By:Narinder Dueñas II; Patient taking Metformin or Derivatives? : No Radiologist to Determine Optimal Study : Y What are the patient's signs and symptoms? : GROSS HEMATURIA Chief Complaint Gross Hematuria Active Problems Problems Dysuria (788.1) (R30.0) Gross hematuria (599.71) (R31.0) History of UTI (V13.02) (Z87.440) Nocturia (788.43) (R35.1) Urinary frequency (788.41) (R35.0) Urinary retention (788.20) (R33.9) Surgical History Problems No history of surgery Family History Mother No pertinent family history Father No pertinent family history Social History Problems Current every day smoker (305.1) (F17.200) Allergies Medication Bactrim Recorded By: Griffin Calloway; 05/22/2020 2:15:11 PM Cipro Recorded By: Griffin Calloway; 05/22/2020 2:15:11 PM codeine Recorded By: Griffin Calloway; 05/22/2020 2:15:11 PM Penicillins Recorded By: Griffin Calloway; 05/22/2020 2:15:11 PM Current Meds Medication NameInstruction ARIPiprazole 5 MG Oral Tablet Ativan 0.5 MG Oral Tablet Benztropine Mesylate 0.5 MG Oral Tablet Calcium 500 MG TABS Divalproex Sodium 125 MG Oral Tablet Delayed Release Dulcolax 10 MG Rectal Suppository Fludrocortisone Acetate 0.1 MG Oral Tablet Folic Acid 1 MG Oral Tablet Haloperidol 1 MG Oral Tablet Haloperidol 2 MG Oral Tablet Lactulose 10 GM Oral Packet Lipitor 40 MG Oral Tablet Archer Carbonate 300 MG Oral Tablet Melatonin 3 MG Oral Tablet Milk of Magnesia 400 MG/5ML Oral Suspension MiraLax 17 GM Oral Packet Mylanta 200-200-20 MG/5ML SUSP Nicorette Mini 2 MG Mouth/Throat Lozenge Paxil 20 MG Oral Tablet Tamsulosin HCl - 0.4 MG Oral Capsule Tylenol 325 MG Oral Capsule Vitamin D TABS Zinc TABS Procedure The patient was prepped using a Betadine solution. Lidocaine jelly was instilled into the urethra. The flexible cystoscope was sterilely inserted into the urethra and formal cystoscopy performed in a systematic fashion. . For detailed findings of the procedure, please see Dr. Dueñas's remarks below Scope 102 Used, Cipro 250mg pobid times 3 days given PSA 0.49 08/22 0.8 08/2020 NO MASS. SIGNIFICANT TRABECULATION. NO MEDIAN LOBE PVR ELEVATED F/U AFTER CT TO EVALUATE RENAL MASS Signatures Electronically signed by : Narinder Dueñas II, MD; Oct 10 2021 11:24AM EST (Author) Normal [facility] [employer] Tobacco Screening.on 022 Adult depression screening assessment No MP-Urology- R [facility] 232 DO Work Phone: Fall risk assessment a) No falls within the last year GS-Uaxslwt-H [facility] 232 DO Work Phone: Tobacco use status [facility] a) Yes M P-Urology-R [facility] 232 DO Work Phone: Tobacco Screening. Yes MP-Uro logy-R [facility] 232 DO Work Phone: Radiologyon 09-07-2021 US Kidney - bilateral Normal MP- Urology-A [facility] Work Phone: US RENAL BILATon 09-07-2021 US RENAL BILAT Patient Name: NANDO BRITO STUDY: US RENAL BILAT; 09/07/2021 10:28 am INDICATION: hematuria R31.0: Gross hematuria. COMPARISON: None. ACCESSION NUMBER(S): [id number] ORDERING CLINICIAN: NARINDER DUEÑAS TECHNIQUE: Multiple images of the kidneys were obtained . FINDINGS: Body habitus limits sensitivity. Right kidney measures 9.8 cm. Left kidney measures 10.5 cm. Apparent solid renal lesion seen in the midpole the right kidney which is hypoechoic measuring 3.1 x 3.1 cm. Renal cell carcinoma can have this appearance. Left kidney appears grossly normal. Large postvoid residual at 410 cc. Thickened bladder wall suggesting component bladder outlet obstruction. There is some trabeculation. Bladder mass also not excluded. IMPRESSION: Apparent solid renal lesion on the right. Neoplasm is suspected. Further evaluation advised. Thickened irregular bladder wall from presumed bladder outlet obstruction. Underlying bladder lesion not excluded. Electronically signed by: NARINDER HILL MD [facility] percentageon 2021 Ammonia (P) [Moles/Vol] 42.0 umol/L [facility] Work Phone: Office Visit (Urology)on Follow-up visit Diagnoses/Problems Assessed Nocturia (788.43) (R35.1) History of UTI (V13.02) (Z87.440) Gross hematuria (599.71) (R31.0) Patient Discussion/Summary All available PSA values reviewed, Options discussed. Questions answered. Diet changes for prostate health discussed and educational information given. Pros/Cons of prostate health supplements discussed. Treatment options for LUTS reviewed Flomax reflled Observe ED Lifestyle change to help prevent UTIs discussed. Encouraged fluid intake. U/s ordered F/U cysto after U/S Chief Complaint yearly follow up with PSA History of Present IllnessPatient here for gross hematuria. Patients caregiver states he seen a moderate amount of blood for a few days. He was placed on an antibx and this cleared sx. Some urgency and frequency. He is incontinent most of the time and wears depends daily. He is taking Flomax. .Hx of urinary retention. Most recent PSA was 0.49 (08/22) Previous PSA was 0.8 (08/21) . Review of Systems Constitutional: No fever, No chills Eye: negative Respiratory: No shortness of breath, No cough. Cardiovascular: No chest pain Gastrointestinal: No nausea Genitourinary: Negative except as documented in history of present illness. Hematology/Lymphatics: Patient denies being on blood thinners.. Endocrine: Negative. Immunologic: Not immunocompromised. Musculoskeletal: negative Integumentary: Negative. Neurologic: Alert and oriented X4. Psychiatric: Negative. Active Problems Problems Dysuria (788.1) (R30.0) History of UTI (V13.02) (Z87.440) Nocturia (788.43) (R35.1) Urinary frequency (788.41) (R35.0) Urinary retention (788.20) (R33.9) Surgical History Problems No history of surgery Family History Mother No pertinent family history Father No pertinent family history Social History Problems Current every day smoker (305.1) (F17.200) Allergies Medication Bactrim Recorded By: Griffin Calloway; 05/22/2020 2:15:11 PM Cipro Recorded By: Griffin Calloway; 05/22/2020 2:15:11 PM codeine Recorded By: Griffin Calloway; 05/22/2020 2:15:11 PM Penicillins Recorded By: Griffin Calloway; 05/22/2020 2:15:11 PM Current Meds Medication NameInstruction ARIPiprazole 5 MG Oral Tablet Ativan 0.5 MG Oral Tablet Benztropine Mesylate 0.5 MG Oral Tablet Calcium 500 MG TABS Divalproex Sodium 125 MG Oral Tablet Delayed Release Dulcolax 10 MG Rectal Suppository Fludrocortisone Acetate 0.1 MG Oral Tablet Folic Acid 1 MG Oral Tablet Haloperidol 1 MG Oral Tablet Haloperidol 2 MG Oral Tablet Lactulose 10 GM Oral Packet Lipitor 40 MG Oral Tablet Archer Carbonate 300 MG Oral Tablet Melatonin 3 MG Oral Tablet Milk of Magnesia 400 MG/5ML Oral Suspension MiraLax 17 GM Oral Packet Mylanta 200-200-20 MG/5ML SUSP Nicorette Mini 2 MG Mouth/Throat Lozenge Paxil 20 MG Oral Tablet Tamsulosin HCl - 0.4 MG Oral Capsule Tylenol 325 MG Oral Capsule Vitamin D TABS Zinc TABS Vitals Vital Signs Recorded: 15Aug2021 09:28AM Heart Gwhx215 Uiquxzqp81 Tsvwgzhtc41 Height5 ft 7 in Mccxbr715 lb 8 oz BMI Mpnhramkzh29.82 kg/m2 BSA Calculated1.83 Tobacco Useb) No Fall Screeninga) No falls within the last year Physical Exam A/O x 3 in No apparent distress Constitutional: General appearance normal Respiratory: Respiratory effort is normal Gastrointestinal:Abdome n is not tender Genitourinary: Kidneys: Not palpable Bilaterally Bladder: Not palpable or tender Scrotum: No mass. No Hydrocele Epididymis: No spermatocele. Not tender Testicles: no mass. symmetric Urethra: No Discharge Penis: WNL...No lesions. CIRCUMCISED Prostate: Symmetric. No Nodules. SMOOTH Seminal Vesicles: No mass Sphincter Tone: normal Signatures Electronically signed by : Narinder Dueñas II, MD; Aug 15 2021 9:39AM EST (Author) [facility] Tobacco Screening.on 022 Fall risk assessment a) No falls within the last year SL-Giwofof-R [employer] Work Phone: Tobacco use status [facility] b) No M P-Urology-A [employer] Work Phone: Basophil percentageon 2021 Ammonia (P) [Moles/Vol] 53.0 umol/L [facility] Work Phone: Tobacco Screening.on Fall risk assessment a) No falls within the last year GM-Cimhoqw-G [employer] Work Phone: Tobacco use status [facility] b) No M P-Urology-A [employer] Work Phone: CNOVon 03-27-2017 CNOV Office Visit (UROLWS) DAVID HAMLINNANDO ([id number]) 1960 M [facility] Time Provider Department03/27/17 10:00 AM BRANDEN SHAH) UROLWS During your visit today, we recorded the following information about you: Blood pressure Weight 110/70 67.7 kgDI Lockwood 03/27/2017 11:06 AM [facility] Kidney InstitutePATIENT INFO:Nando Brito HISTORY= ========CHIEF COMPLAINT: ANDquot;Hydrocele ANDquot;HPI:This is a 56 year old male who is here for follow-up on right hydrocele.Patient had a scrotal U/S on 07/15/2016 that showed a right sided hydrocele aleft sided spermatocele 5 mm in size.Patient is having right sided scrotal pain, but not affecting ADL's , he issitting with legs crossed today during visit in little pain today. Discussedthe hydrocele and spermatocele are benign conditions but that the hydrocele cancause pain as it gets larger. may use ibuprofen for inflammatory type pain.Shantie described that the patient has a reddened sore scrotum each early AM whendiaper is changed. So I will make recommendation to use Zinc Oxide at bedtimePrevious Studies:Scrotal U/S 07/15/2016Right Moderate HydroceleLeft 5 mm SpermatoceleREVIEW OF SYSTEMS:GENERAL: No fever, chills, weight loss, or fatigue. PHYSICA L EXAM: Blood pressure 110/70, weight 67.7 kg (149 lb 3.2 oz).GENERAL:WNL nutrition, no deformities, healthy appearingGENITOURINARY: MALE EXAM:Spermatoceles: LeftHydroceles: Right, moderate size and tenseRectal Exam: Not IndicatedIMPRESSION/[place] N:ANDgt; History of right moderate tense hydrocele ANDgt; No causing tremendous pain ANDgt; Ibuprofen for pain ANDgt; Scrotum U/s in July 2017ANDgt; Scrotum Redness and Irritation ANDgt; Apply Zinc Oxide at bedtime, to help as barrier to urine in pad at nightANDgt; Annual appointment w/ JUDI Coleman MT, PA-C after U/S in July 2017JUDI Bradford MT, DI-CElectronically signedReferring Provider: ASHLEY DICKEY [[id number]]Allergies As of Date: 03/27/2017 Noted Allergy ReactionBACTRIM (SULFAMETHOXAZOLE-TRIME TH*08/22/2016 16 - UnknownCIPROFLOXACIN 08/22/2016 16 - UnknownCODEINE 08/22/2016 16 - UnknownPENICILLINS 08/22/2016 16 - UnknownDate Reviewed: 03/27/2017Reviewed by: America Castaneda - Fully AssessedReason for Visit: Follow Up [171] testicular swelling [Other]Primary Visit Diagnosis:Hydrocele, unspecified hydrocele type [N43.3] Other Visit Diagnosis:Testicular swelling [N50.89]Order(s):UA DIP, URINE (POC) [[id number]] Order #: [id number]. #:[id number] US SCROTUM AND CONTENTS [[id number]] Order #: [id number] FUTURE US DOPPLER COMPLETE [[id number]] Order #: [id number] FUTURE zinc oxide (BOUDREAUXS) 16 % ointApply 1 application to affected area daily at bedtime.Disp: Rfl:Prescriptions as of 03/27/2017 Sig: GUAIFENESIN 200 MG/5 ML ORAL * Take by mouth. ALBUTEROL SULFATE 0.63 MG/3 M* Use 1 Ampule via nebulizer ev* ARIPIPRAZOLE 5 MG TABLET Take 5 mg by mouth once daily. LORAZEPAM 0.5 MG TABLET Take by mouth three times da* BENZTROPINE 0.5 MG TABLET Take 0.5 mg by mouth once marline* CALCIUM 600 + D ORAL Take by mouth twice daily. DOCUSATE SODIUM 100 MG CAPSULE Take 100 mg by mouth once marline* DIVALPROEX 125 MG CAPSULE,DEL* Take 500 mg by mouth twice da* BISACODYL 10 MG RECTAL SUPPOS* 10 mg by RECTAL route once da* BISACODYL 5 MG TABLET Take 1 tablet by mouth as nee* FERROUS SULFATE 325 MG (65 MG* Take 325 mg by mouth twice da* FLUDROCORTISONE 0.1 MG TABLET Take 0.1 mg by mouth once marline* HALOPERIDOL LACTATE INTRAMUSC. Inject 1 mg intramuscularly a* LOPERAMIDE 2 MG CAPSULE Take 2 mg by mouth four times* LITHIUM CARBONATE 300 MG CAPS* Take 300 mg by mouth twice da* MELATONIN 3 MG TABLET Take by mouth daily at bedti* POLYETHYLENE GLYCOL 3350 17 G* Take 17 g by mouth once daily. PAROXETINE 20 MG TABLET Take 20 mg by mouth once xu* TAMSULOSIN 0.4 MG CAPSULE Take 0.4 mg by mouth once marline* TRAZODONE 50 MG TABLET Take 50 mg by mouth daily at * ACETAMINOPHEN 325 MG TABLET Take 650 mg by mouth every 6 * ZINC OXIDE 16 % TOPICAL OINTM* Apply 1 application to affect*Problem List As Of Date 03/27/2017 Noted Resolved Hydrocele [N43.3] INVALID FOR*Prescriptions ordered this encounter Disp Refills Start End ZINC OXIDE 16 % TOPICAL OINTMENT 03/27/2017 Class: Med Update Route: TOPICAL Sig: Apply 1 application to affected area daily at bedtime.Disposition: Return in about 4 months (around 07/25/2017).Follow-up and Disposition History RecordedEncounter Number: [id number] Status:Closed by BRANDEN SHAH PA-C on 03/27/17 Normal [facility] PROGRESSon 03-27-2017 PROGRESS HNO ID: [id number]: Branden Wilson (Pa): (none)Author Type: Physician AssistantType: Progress NotesFiled: 03/27/2017 11:06 AMNote Text:[facility]rological and Kidney InstitutePATIENT INFO:Nando Brito HISTORY= ========CHIEF COMPLAINT: Hydrocele HPI:This is a 56 year old male who is here for follow-up on right hydrocele.Patient had a scrotal U/S on 07/15/2016 that showed a right sided hydrocelea left sided spermatocele 5 mm in size.Patient is having right sided scrotal pain, but not affecting ADL's , heis sitting with legs crossed today during visit in little pain today.Discussed the hydrocele and spermatocele are benign conditions but thatthe hydrocele can cause pain as it gets larger. may use ibuprofen forinflammatory type pain.Aide described that the patient has a reddened sore scrotum each early AMwhen diaper is changed. So I will make recommendation to use Zinc Oxideat bedtimePrevious Studies:Scrotal U/S 07/15/2016Right Moderate HydroceleLeft 5 mm SpermatoceleREVIEW OF SYSTEMS:GENERAL: No fever, chills, weight loss, or fatigue. PHYSICA L EXAM: Blood pressure 110/70, weight 67.7 kg (149 lb 3.2 oz).GENERAL:WNL nutrition, no deformities, healthy appearingGENITOURINARY: MALE EXAM:Spermatoceles: LeftHydroceles: Right, moderate size and tenseRectal Exam: Not IndicatedIMPRESSION/[place] N:> History of right moderate tense hydrocele > No causing tremendous pain > Ibuprofen for pain > Scrotum U/s in July 2017> Scrotum Redness and Irritation > Apply Zinc Oxide at bedtime, to help as barrier to urine in pad atnight> Annual appointment wJUDI Lane, MICHELE, TYREL after U/S in July 2017JUDI Bradford MT, PA-CElectronically signed Normal [facility] CNOVon 02-14-2017 CNOV Office Visit (UROLWS) MARLOYuriyMarli NANDO HAMLIN ([id number]) 1960 M [facility] Gpqqmmbyfu49/15/17 10:00 AM BRANDEN SHAH) UROLWS During your visit today, we recorded the following information about you: Pulse Blood pressure 60/minute 104/70DI Lockwood 03/13/2017 7:14 PM SignedFormerly [facility]rological and Kidney InstituteCHIEF COMPLAINT: ANDquot;HydroceleANDquo t;HPI:This is a 56 year old male who is here for 3 month follow-up for hydrocelefound on U/S 07/2016He is still having the swelling but no pain at this time.Previous Studies:Scrotal U/S 07/15/2016Right Moderate HydroceleLeft 5 mm SpermatoceleAll GUROS reviewed, all were negativeREVIEW OF SYSTEMS:GENERAL: No fever, chills, weight loss, or fatigue.PHYSICAL EXAM:Blood pressure 104/70, pulse 60.GENERAL:WNL nutrition, no deformities, healthy appearingIMPRESSION/[place]OND[place] N:ANDgt; History of right moderate hydroceleANDgt; no pain but scrotum is still enlargedANDgt; Follow up JUDI House, [place], PA-CElectronically signedReferring Provider: BRANDEN SHAH) [[id number]]Allergies As of Date: 02/14/2017 Noted Allergy ReactionBACTRIM (SULFAMETHOXAZOLE-TRIME TH*08/22/2016 16 - UnknownCIPROFLOXACIN 08/22/2016 16 - UnknownCODEINE 08/22/2016 16 - UnknownPENICILLINS 08/22/2016 16 - UnknownDate Reviewed: 08/22/2016Reviewed by: Shirlene Gardiner Ma - Fully AssessedReason for Visit: Follow Up [171] scrotal swelling [Other]Primary Visit Diagnosis:Hydrocele, unspecified hydrocele type [N43.3]Prescriptions as of 02/14/2017 Sig: GUAIFENESIN 200 MG/5 ML ORAL * Take by mouth. ALBUTEROL SULFATE 0.63 MG/3 M* Use 1 Ampule via nebulizer ev* ARIPIPRAZOLE 5 MG TABLET Take 5 mg by mouth once daily. LORAZEPAM 0.5 MG TABLET Take by mouth three times da* BENZTROPINE 0.5 MG TABLET Take 0.5 mg by mouth once marline* CALCIUM 600 + D ORAL Take by mouth twice daily. DOCUSATE SODIUM 100 MG CAPSULE Take 100 mg by mouth once marline* DIVALPROEX 125 MG CAPSULE,DEL* Take 500 mg by mouth twice da* BISACODYL 10 MG RECTAL SUPPOS* 10 mg by RECTAL route once da* BISACODYL 5 MG TABLET Take 1 tablet by mouth as nee* FERROUS SULFATE 325 MG (65 MG* Take 325 mg by mouth twice da* FLUDROCORTISONE 0.1 MG TABLET Take 0.1 mg by mouth once marline* HALOPERIDOL LACTATE INTRAMUSC. Inject 1 mg intramuscularly a* LOPERAMIDE 2 MG CAPSULE Take 2 mg by mouth four times* LITHIUM CARBONATE 300 MG CAPS* Take 300 mg by mouth twice da* MELATONIN 3 MG TABLET Take by mouth daily at bedti* POLYETHYLENE GLYCOL 3350 17 G* Take 17 g by mouth once daily. PAROXETINE 20 MG TABLET Take 20 mg by mouth once xu* TAMSULOSIN 0.4 MG CAPSULE Take 0.4 mg by mouth once marline* TRAZODONE 50 MG TABLET Take 50 mg by mouth daily at * ACETAMINOPHEN 325 MG TABLET Take 650 mg by mouth every 6 *Problem List As Of Date: 02/14/2017(None)[facility] er Number: [id number] Status:Closed by BRANDEN SHAH PA-C on 03/13/17 [facility] PROGRESSon 02-14-2017 PROGRESS HNO ID: [id number]: Branden Duque) PabloServiccanedlario: (none)Author Type: Physician AssistantType: Progress NotesFiled: 03/13/2017 7:14 PMNote Text:[facility] Kid[facility] InstituteCHIEF COMPLAINT: HydroceleHPI:This is a 56 year old male who is here for 3 month follow-up for hydrocelefound on U/S 07/2016He is still having the swelling but no pain at this time.Previous Studies:Scrotal U/S 07/15/2016Right Moderate HydroceleLeft 5 mm SpermatoceleAll GUROS reviewed, all were negativeREVIEW OF SYSTEMS:GENERAL: No fever, chills, weight loss, or fatigue.PHYSICAL EXAM:Blood pressure 104/70, pulse 60.GENERAL:WNL nutrition, no deformities, healthy appearingIMPRESSION/LONDON N:> History of right moderate hydrocele> no pain but scrotum is still enlarged> Follow up JUDI House, [place], PA-CElectronically signed Normal [facility] Vital Signs Date Time Vital Sign Value Performing Clinician Facility 01-08-2024 11:57-0500 Body mass index (BMI) [Ratio] 26.31 kg/m2 Narinder Dueñas MD Work Phone: [phone])342-415413 [place] [address] 01-08-2024 11:57-0500 Body weight 76.2 kg Narinder Dueñas MD Work Phone: 2(603)731-226213 [place] [address] 06-18-2023 13:13-0400 Body height 170.2 cm Narinder Dueñas MD Work Phone: 9(451)680-341713 [place] [address] 06-18-2023 13:13-0400 Body mass index (BMI) [Ratio] 26.41 kg/m2 Narinder Dueñas MD Work Phone: 6(998)862-255913 [place] [address] 06-18-2023 13:13-0400 Body weight 76.5 kg Narinder Dueñas MD Work Phone: 6(675)709-459813 [place] [address] 06-18-2023 13:13-0400 Diastolic blood pressure 81 mm[Hg] Narinder Dueñas MD Work Phone: [facility] 06-18-2023 13:13-0400 Heart rate 101 /min Narinder Dueñas MD Work Phone: [facility] 06-18-2023 13:13-0400 Systolic blood pressure 116 mm[Hg] Narinder Dueñas MD Work Phone: [phone])892-533913 [place] [address] 05-14-2023 15:00-0400 Inhaled oxygen flow rate 3 L/min Dr. Ashley Dickey Work Phone: [facility] 05-14-2023 15:00-0400 SaO2% (BldA) [Mass fraction] 93 % Dr. Ashley Dickey Work Phone: [facility] 05-14-2023 14:46-0400 Heart rate 52 /min Dr. Ashley Dickey Work Phone: [facility] 05-14-2023 14:40-0400 Body temperature 98.6 [degF] Dr. Ashley Dickey Work Phone: [facility] 05-14-2023 14:40-0400 Diastolic blood pressure 68 mm[Hg] Dr. Ashley Dickey Work Phone: [facility] 05-14-2023 14:40-0400 Respiratory rate 20 /min Dr. Ashley Dickey Work Phone: [facility] 05-14-2023 14:40-0400 Systolic blood pressure 121 mm[Hg] Dr. Ashley Dickey Work Phone: [facility] 05-14-2023 05:28-0400 Body mass index (BMI) [Ratio] 24 kg/m2 Dr. Ashley Dickey Work Phone: [facility] 05-14-2023 05:28-0400 Body weight 73.[address] Ashley Dickey Work Phone: [facility] 05-11-2023 11:07-0400 Body height 175.[address] Ashley Dickey Work Phone: [facility] 05-10-2023 06:06-0500 Body temperature 99 [degF] Dr. Ashley Dickey Work Phone: [facility] 05-10-2023 06:06-0500 Diastolic blood pressure 65 mm[Hg] Dr. Ashley Dickey Work Phone: [facility] 05-10-2023 06:06-0500 Heart rate 68 /min Dr. Ashley Dickey Work Phone: [facility] 05-10-2023 06:06-0500 Respiratory rate 18 /min Dr. Ashley Dickey Work Phone: [facility] 05-10-2023 06:06-0500 SaO2% (BldA) [Mass fraction] 90 % Dr. Ashley Dickey Work Phone: [facility] 05-10-2023 06:06-0500 Systolic blood pressure 99 mm[Hg] Dr. Ashley Dickey Work Phone: [facility] 05-10-2023 05:30-0500 Inhaled oxygen flow rate 4 L/min Dr. Ashley Dickey Work Phone: [facility] 05-10-2023 05:07-0500 Body height 175.[address] Ashley Dickey Work Phone: [facility] 05-10-2023 05:07-0500 Body mass index (BMI) [Ratio] 24.5 kg/m2 Dr. Ashley Dickey Work Phone: [facility] 05-10-2023 05:07-0500 Body weight 75.[address] Ashley Dickey Work Phone: [facility] 03-19-2023 13:40-0500 Respiratory rate 16 /min Narinder Dueñas MD Work Phone: [facility] 03-05-2023 10:26-0500 Body mass index (BMI) [Ratio] 24.59 kg/m2 Narinder Dueñas MD Work Phone: [facility] 03-05-2023 10:26-0500 Body weight 71.22 kg Narinder Dueñas MD Work Phone: [facility] 03-05-2023 10:26-0500 Respiratory rate 20 /min Narinder Dueñas MD Work Phone: [facility] 07-03-2022 09:12-0400 Body mass index (BMI) [Ratio] 24.65 kg/m2 Ashley Dickey Work Phone: XV-Kztnkdu-Fmjjfcw Work Phone: 07-03-2022 09:12-0400 Body surface area Derived from formula 1.83 m2 Ashley Gastoner Work Phone: WT-Qtuxmnd-Wcfizgv Work Phone: 07-03-2022 09:12-0400 Body weight 71.39 kg Ashley Gastoner Work Phone: CD-Hslazsx-Odvqzxn Work Phone: 07-03-2022 09:12-0400 Diastolic blood pressure 80 mm[Hg] Ashley Gastoner Work Phone: CO-Xriodpg-Jkrgbey Work Phone: 07-03-2022 09:12-0400 Heart rate 106 /min Ashley Gastoner Work Phone: YF-Yarhsbu-Ppbcbpe Work Phone: 07-03-2022 09:12-0400 Systolic blood pressure 150 mm[Hg] Ashley Gastoner Work Phone: EN-Vjgedsz-Jdkfchc Work Phone: 10-10-2021 11:38-0400 Body mass index (BMI) [Ratio] 24.82 kg/m2 Ashley Gastoner Work Phone: HL-Zfottnr-Vwxbqkwd HC 232 DO Work Phone: 10-10-2021 11:38-0400 Body surface area Derived from formula 1.83 m2 Ashley Gastoner Work Phone: PB-Zkzalil-Gepbhbrf HC 232 DO Work Phone: 10-10-2021 11:38-0400 Body weight 71.9 kg Ashley Gastoner Work Phone: IK-Vbwulji-Tpsngssf HC 232 DO Work Phone: 08-15-2021 09:28-0400 Body height 170.18 cm Ashley Gastoner Work Phone: JW-Thjzake-Kvcigby Work Phone: 08-15-2021 09:28-0400 Body mass index (BMI) [Ratio] 24.82 kg/m2 Ashley Gastoner Work Phone: DK-Uvrwgbq-Ldqieqn Work Phone: 08-15-2021 09:28-0400 Body surface area Derived from formula 1.83 m2 Ashley Gastoner Work Phone: [employer] Work Phone: 08-15-2021 09:28-0400 Body weight 71.9 kg Ashley Gastoner Work Phone: [employer] Work Phone: 08-15-2021 09:28-0400 Diastolic blood pressure 63 mm[Hg] Ashley Gastoner Work Phone: [employer] Work Phone: 08-15-2021 09:28-0400 Heart rate 133 /min Ashley Gastoner Work Phone: [employer] Work Phone: 08-15-2021 09:28-0400 Systolic blood pressure 93 mm[Hg] Ashley Dickey Work Phone: [employer] Work Phone: 08-16-2020 14:06-0400 Body height 170.18 cm Ashley Gastoner Work Phone: [employer] Work Phone: 08-16-2020 14:06-0400 Body mass index (BMI) [Ratio] 25.37 kg/m2 Ashley Gastoner Work Phone: [employer] Work Phone: 08-16-2020 14:06-0400 Body surface area Derived from formula 1.85 m2 Ashley Gastoner Work Phone: [employer] Work Phone: 08-16-2020 14:06-0400 Body weight 73.48 kg Ashley Dickey Work Phone: BV-Fkprxtf-Bxvregx Work Phone: 08-16-2020 14:06-0400 Diastolic blood pressure 77 mm[Hg] Ashley Dickey Work Phone: KH-Ytvaalq-Uydzunu Work Phone: 08-16-2020 14:06-0400 Heart rate 124 /min Ashley Dickey Work Phone: AT-Pzhmqlx-Nwekgjk Work Phone: 08-16-2020 14:06-0400 Systolic blood pressure 134 mm[Hg] Ashley Dickey Work Phone: VU-Bpgxzqr-Gmpvmqt Work Phone: Encounters Encounter Date Encounter Type Care Provider Facility Start: 05-12-2024 End: 05-12-2024 ambulatory [facility] Ambulatory Start: 05-12-2024 End: 05-12-2024 Patient encounter procedure Narinder Dueñas MD Work Phone: [facility] Comment on above: Urinary retention (P rimary Dx) Start: 03-26-2024 End: 03-26-2024 ambulatory [facility] Start: 01-08-2024 End: 01-08-2024 ambulatory [facility] Ambulatory Start: 01-08-2024 End: 01-08-2024 Office outpatient visit 25 minutes Narinder Dueñas MD Work Phone: [facility] Comment on above: Gross hematuria; Nocturia; Urinary incontinence, unspecified type Start: 06-18-2023 End: 06-18-2023 Office outpatient visit 25 minutes Narinder Dueñas MD Work Phone: [facility] Comment on above: Scrotal abscess (Betzaida reynaldo Dx); Urinary frequency; Nocturia; Urinary incontinence, unspecified type Start: 06-18-2023 End: 06-18-2023 ambulatory [facility] Ambulatory Start: 05-14-2023 Non-patient / Non-visit Dr. Amy Dickey Work Phone: [facility] Work Phone: Start: 05-14-2023 Non-patient / Non-visit Dr. Amy Dickey Work Phone: [facility] Start: 05-13-2023 Non-patient / Non-visit Dr. Amy Dickey Work Phone: [facility] Work Phone: Start: 05-12-2023 Non-patient / Non-visit Dr. Amy Dickey Work Phone: [facility] Work Phone: Start: 05-11-2023 Non-patient / Non-visit Dr. Amy Dickey Work Phone: [facility] Work Phone: Start: 05-10-2023 End: 05-14-2023 Evaluation and management of inpatient Kirsty Rodarte Facility:[facility] Start: 05-10-2023 ambulatory Ashley Dickey Facility: [facility] Start: 05-10-2023 End: 05-14-2023 Evaluation and management of inpatient Dr. Ashley Dickey Work Phone: [facility] Work Phone: Start: 05-10-2023 Non-patient / Non-visit Dr. Amy Dickey Work Phone: [facility] Work Phone: Start: 03-19-2023 End: 03-19-2023 Office outpatient visit 25 minutes Narinder Dueñas MD Work Phone: [facility] Comment on above: Scrotal abscess; Urinary frequency; Nocturia Start: 03-05-2023 End: 03-05-2023 Office outpatient visit 25 minutes Narinder Dueñas MD Work Phone: [facility] Comment on above: Scrotal abscess (Betzaida reynaldo Dx); Nocturia; Urinary incontinence, unspecified type; Urinary frequency Start: 12-05-2022 ambulatory Ashley DOE Facil ity:[facility] Start: 09-05-2022 ambulatory Aslhey DOE Facil ity:[facility] Start: 07-03-2022 ambulatory MD NARINDER DUEÑAS Fa cility:[id number] Start: 07-03-2022 Office outpatient vi sit 25 minutes Ashley Dickey Work Phone: UY-Krtlntv-Dripkxm Work Phone: Start: 06-06-2022 ambulatory Ashley DOE Facil ity:[facility] Start: 01-02-2022 ambulatory MD NARINDER DUEÑAS Fa cility:[id number] Start: 10-25-2021 Chart Update Ashley feliciano Work Phone: AG-Xbsodre-Zqxmpfvu HC 232 DO Work Phone: Start: 10-10-2021 Patient encounter procedure Ashley Dickey Work Phone: PF-Kpbadpn-Gybfvqgl HC 232 DO Work Phone: Start: 10-10-2021 ambulatory MD NARINDER DUEÑAS Fa cility:[id number] Start: 09-12-2021 Chart Update Ashley feliciano Work Phone: BP-Qmbntfc-Mvcsrza Work Phone: Start: 09-06-2021 End: 09-06-2021 Departed Referred [facility] Start: 08-15-2021 Office outpatient vi sit 25 minutes Ashley Dickey Work Phone: RS-Zfbobkc-Ehgtjnd Work Phone: Start: 08-15-2021 ambulatory MD NARINDER DUEÑAS Fa cility:[id number] Start: 06-05-2021 End: 06-05-2021 Departed Referred [facility] Start: 08-16-2020 Office outpatient vi sit 15 minutes Ashley Dickey Work Phone: UO-Gcmwbak-Vewuafb Work Phone: Start: 03-27-2017 End: 03-27-2017 Ambulatory BRANDEN SHAH (PA) [facility] Start: 02-14-2017 End: 02-14-2017 Ambulatory BRANDEN DUQUE) PABLO [facility] Procedures Date Procedure Procedure Detail Performing Clinician Start: 05-13-[address] Ashley Dickey Work Phone: Start: 05-12-2023 CT angiography of ch est with contrast Dr. Ashley Dickey Work Phone: Start: 05-10-2023 SARS-CoV-2, Influenz a & RSV (PCR) Dr. Ashley Dickey Work Phone: Start: 05-10-2023 Plain chest X-ray Dr. Stacey Dickey Work Phone: No history of surgery Ashley Dickey Work Phone: Plan of Treatment Date Care Activity Detail Author Start: 11-24-2035 RSV High Risk: (Elde rly (60+) or Population) (1 - 1-dose 75+ series) RSV High Risk: (Elderly (60+) or Population) (1 - 1-dose 75+ series) [facility] Start: 08-06-2024 End: 08-06-2024 Patient encounter procedure 08/06/2024 2:00 PM EDT Office Visit [facility] [address] [facility] [address] [place] [address] Maximo Koehler MD [address] [facility] [address] [place] [address] [facility] Start: 06-01-2024 End: 06-17-2024 Prostate specific Ag [Mass/volume] in Serum or Plasma Prostate Specific Antigen Lab Routine Nocturia Expected: 06/01/2024 (Approximate), Expires: 06/17/2024 [facility] Service Area Work Phone: Comment on above: Expected: 06/01/2024 (Approximate), Expires: 06/17/2024 Start: 05-12-2024 End: 05-12-2025 Basic metabolic 2000 panel - Serum or Plasma Basic Metabolic Panel Lab Routine Urinary retention Expected: 05/12/2024 (Approximate), Expires: 05/12/2025 [facility] Service Area Work Phone: Comment on above: Expected: 05/12/2024 (Approximate), Expires: 05/12/2025 Start: 01-08-2024 End: 01-07-2025 Basic metabolic 2000 panel - Serum or Plasma Basic Metabolic Panel Lab Routine Nocturia Expected: 01/08/2024 (Approximate), Expires: 01/07/2025 [facility] Service Area Work Phone: Comment on above: Expected: 01/08/2024 (Approximate), Expires: 01/07/2025 Start: 01-08-2024 End: 01-07-2025 CT Abdomen and Pelvis W contrast IV CT abdomen pelvis w IV contrast Imaging Routine Gross hematuria Expected: 01/08/2024, Expires: 01/07/2025 [facility] Work Phone: Comment on above: Expected: 01/08/2024 , Expires: 01/07/2025 Start: 01-08-2024 End: 01-07-2025 Prostate specific Ag [Mass/volume] in Serum or Plasma Prostate Specific Antigen Lab Routine Nocturia Expected: 01/08/2024 (Approximate), Expires: 01/07/2025 [facility] Work Phone: Comment on above: Expected: 01/08/2024 (Approximate), Expires: 01/07/2025 Start: 11-02-2023 COVID-19 Vaccine () COVID-19 Vaccine ( season) [facility] Start: 11-02-2023 Influenza vaccination [facility] Start: 06-18-2023 End: 06-18-2023 Patient encounter procedure 06/18/2023 1:15 PM EDT Office Visit [facility] [address] [address] Narinder Dueñas MD [address] [place] [address] [facility] Start: 05-14-2023 Patient discharge [facility] Start: 05-13-2023 Respiratory secretio n precautions [facility] Start: 05-13-2023 Consultation [facility] Start: 05-12-2023 Speech therapy assessment [facility] Start: 05-10-2023 Bacteria identified in Blood by Culture Blood Culture [facility] Start: 05-10-2023 End: 05-10-2023 Blood culture [facility] Start: 05-10-2023 End: 05-10-2023 [facility] Start: 05-10-2023 Following clinical p athway protocol [facility] Start: 05-10-2023 Aspiration precautions [facility] Start: 05-10-2023 Assessment of risk o f venous thromboembolism [facility] Start: 05-10-2023 Bacteria identified in Sputum by Culture [facility] Start: 05-10-2023 Documentation procedure [facility] Start: 05-10-2023 Fall prevention [facility] Start: 05-10-2023 Incentive spirometry [facility] Start: 05-10-2023 Inhalation therapy procedure [facility] Start: 05-10-2023 Insertion of cathete r into peripheral vein [facility] Start: 05-10-2023 Introduction of urin anjum catheter [facility] Start: 05-10-2023 Measuring intake and output [facility] Start: 05-10-2023 Oxygen therapy [facility] Start: 05-10-2023 Providing care accor ding to standard [facility] Start: 05-10-2023 Provision of activit y privileges [facility] Start: 05-10-2023 Referral to occupati onal therapist [facility] Start: 05-10-2023 Referral to service [facility] Start: 05-10-2023 Speech therapy assessment [facility] Start: 05-10-2023 Tobacco use cessatio n education [facility] Start: 05-10-2023 Legionella pneumophi la Ag [Presence] in Urine [facility] Start: 05-10-2023 Streptococcus pneumo niae antigen assay [facility] Start: 05-10-2023 Verification routine [facility] Start: 05-10-2023 Admission procedure [facility] Start: 05-10-2023 [facility] Start: 03-19-2023 End: 03-19-2023 Patient encounter procedure 03/19/2023 1:30 PM EST Office Visit [facility] [address] [facility] [address] [place] [id number] Narinder Dueñas MD [address] [place], [place] [id number] [facility] Start: 03-05-2023 End: 03-05-2024 Prostate specific Ag [Mass/volume] in Serum or Plasma Prostate Specific Antigen Lab Routine Nocturia Expected: 03/05/2023 (Approximate), Expires: 03/05/2024 [facility] Service Area Work Phone: Comment on above: Expected: 03/05/2023 (Approximate), Expires: 03/05/2024 Start: 11-01-2022 COVID-19 Vaccine ( season) COVID-19 Vaccine ( season) [facility] Start: 11-01-2022 Influenza vaccination Influenza Vacc ine (#1) [facility] Start: 10-10-2021 CYSTOSCOPY, Provider : YAZDANISM UROLOGY PROCEDURE RM,[id number], Status: Pen, Time: 10:30 AM CYSTOSCOPY, Provider: YAZDANISM UROLOGY PROCEDURE RM,[id number], Status: Pen, Time: 10:30 AM SF-Cvriwlu-Zbthidu Work Phone: Start: 2010 Zoster Vaccines (1 of 2) Zoste r Vaccines (1 of 2) [facility] Start: 1982 DTaP/Tdap/Td Vaccine s (1 - Tdap) DTaP/Tdap/Td Vaccines (1 - Tdap) [facility] Start: 11-24-1979 Pneumococcal vaccination Pneum ococcal Vaccine (1 of 2 - PCV) [facility] Start: 1978 Diabetes mellitus screening Diabetes Screening [facility] Start: 1978 Hepatitis C screening Hepatitis C [facility] Start: 1966 Pneumococcal Vaccine : Pediatrics (0 to 5 Years) and At-Risk Patients (6 to 64 Years) (1 - PCV) Pneumococcal Vaccine: Pediatrics (0 to 5 Years) and At-Risk Patients (6 to 64 Years) (1 - PCV) [facility] Start: 1966 Pneumococcal Vaccine : Pediatrics (0 to 5 Years) and At-Risk Patients (6 to 64 Years) (1 of 2 - PCV) Pneumococcal Vaccine: Pediatrics (0 to 5 Years) and At-Risk Patients (6 to 64 Years) (1 of 2 - PCV) [facility] Start: 1961 MMR Vaccines (1 of 1 - Standard series) MMR Vaccines (1 of 1 - Standard series) [facility] Start: 05-23-1961 COVID-19 Vaccine (#1) COVID-19 Vacci ne (#1) [facility] Start: 1960 HIV screening HIV Screening [facility] Start: 1960 Lipid panel Lipid Panel [facility] Start: 1960 Screening for malign ant neoplasm of colon [facility] Start: 1960 Thyroid stimulating hormone measurement TSH Level [facility] Start: 1960 Yearly Adult Physical Yearly Adult P hysical [facility] Alanine aminotransfe rase [Enzymatic activity/volume] in Serum or Plasma [facility] Albumin [Mass/volume ] in Serum or Plasma [facility] Alkaline phosphatase [Enzymatic activity/volume] in Serum or Plasma [facility] Anion gap measurement [facility] Aspartate aminotrans ferase [Enzymatic activity/volume] in Serum or Plasma [facility] Bilirubin, total measurement [facility] BUN/Creatinine ratio [facility] Calcium [Mass/volume ] in Serum or Plasma [facility] Carbon dioxide, tota l [Moles/volume] in Serum or Plasma [facility] Chloride [Moles/volu me] in Serum or Plasma [facility] Creatinine [Moles/vo lume] in Serum or Plasma [facility] Erythrocyte mean corpuscular volume determination [facility] Glucose [Mass/volume ] in Serum or Plasma [facility] Hematocrit [Volume Fraction] of Blood [facility] Hemoglobin [Mass/vol ume] in Blood [facility] Leukocytes [#/volume ] in Blood [facility] Mean corpuscular hemoglobin concentration determination [facility] Mean corpuscular hemoglobin determination [facility] Measurement of renal function [facility] Neutrophil count [facility] Neutrophil percent differential count [facility] Patient referral [facility] Work Phone: Platelets [#/volume] in Blood [facility] Potassium [Moles/vol ume] in Serum or Plasma [facility] Red blood cell count [facility] Red cell distributio n width determination [facility] Sodium [Moles/volume ] in Serum or Plasma [facility] Total protein measurement [facility] Urea nitrogen [Mass/volume] in Serum or Plasma [facility] Payers Date Payer Category Payer Self-pay [id number] 2017 Medicaid [id number] 2017 Medicaid [id number] 1960 Unknown [id number] 2.16. [id number] 1960 Unknown [id number] 2.16. 840.1.907735.3.579.2.356 1960 Unknown [id number] 2.16. 840.1.532559.3.579.2.356 1960 Unknown [id number] 2.16. 840.1.477462.3.579.2.356 1960 Unknown [id number] 2.16.8 40.1.349876.3.579.2.1243 1960 Unknown [id number] 2.16. 840.1.432777.3.579.2.1244 1960 Unknown [id number] 2.16. 840.1.315719.3.579.2.1244 1960 Unknown [id number] 2.16.8 40.1.777351.3.579.2.1244 Unknown MEDICAID Unknown [id number] [facility] [id number] Unknown [id number] 2.16.8 40.1.038602.3.579.2.462 Unknown [id number] 2.16.8 40.1.525067.3.579.2.462 Unknown [id number] 2.16.8 40.1.016534.3.579.2.462 Unknown [id number] 2.16.8 40.1.344997.3.579.2.462 Unknown [id number] 2.16.8 40.1.169167.3.579.2.462 Unknown [id number] 2.16.8 40.1.701794.3.579.2.462 Unknown [id number] 2.16.8 40.1.884168.3.579.2.462 Unknown [id number] 2.16.8 40.1.186743.3.579.2.462 Unknown [id number] 2.16.8 40.1.059888.3.579.2.462 Unknown [id number] 2.16.8 40.1.640874.3.579.2.462 Social History Date Type Detail Facility Start: 03-05-2023 End: 05-12-2024 Current every day smoker Current every day smoker [facility] Work Phone: Start: 11-05-2017 End: 05-10-2023 Tobacco smoking status NHIS Unknown if ever smoked [facility] Start: 1960 Sex Assigned At Male [facility] Start: 03-05-2023 End: 06-18-2023 Tobacco smoking status NHIS Smokes tobacco daily [facility] History of tobacco use Cigarette Smoker [facility] Work Phone: Start: 03-05-2023 End: 06-18-2023 Tobacco use and exposure Smokeless tobacco non-user [facility] Work Phone: Start: 03-05-2023 End: 05-12-2024 Tobacco use panel [facility] Work Phone: Start: 1960 Sex Assigned At Not on file [facility] Work Phone: Start: 03-09-2023 End: 05-12-2024 Exposure to SARS-CoV-2 (event) Not sure [facility] Goals Date Patient Goal Desired Activity /State Functional Status Date Assessment Result Facility 05-14-2023 Functional status Ambulates [facility] Work Phone: Mental Status Date Assessment Result Facility 05-14-2023 Cognitive function Voice/Name [facility] Work Phone: Clinical Notes 07-03-2020 to 05-12-2024 Patricia Rawls MA - 05/12/2024 2:00 PM Rafiq Dueñas MD - 01/08/2024 11:45 AM Ivan Dueñas MD - 06/18/2023 1:15 PM EDT Note Date & Type Note Facility 05-12-2024 History of Present illness Narrative Patient ID: Nando Brito is a 63 y.o. male. Procedures The patient was prepped using a Betadine solution. Lidocaine jelly was instilled into the urethra. The flexible cystoscope was sterilely inserted into the urethra and formal cystoscopy performed in a systematic fashion. . For detailed findings of the procedure, please see Dr. Dueñas remarks below CIPRO 250MG POBID TIMES 3 DAYS GIVEN NO MASS. S/P TURP. NO PROSTATIC OBSTRUCTION. SIGNIFICANT TRABECULATION, PVR WAS ELEVATED BMP AND PSA HAS BEEN ORDERED F/U 3 MONTHS WITH ABOVE LABS. IF RENAL FUNCTION NORMAL AND NO RECURRENT UTI OR BOTHERSOME LUTS WOULD OBSERVE ELEVATED PVR documented in this encounter [facility] Work Phone: 01-08-2024 History of Present illness Narrative Subjective Patient ID: Nando Brito is a 63 y.o. male. HPI Patient is here for gross hematuria. Aide is unsure when this started or if this is still going on. Chronic hx of gross hematuria. Pt did have a recent U/S done 05/23 which was normal... RENAL U/S on 09/21 showed apparent solid lesion on the right suspected for neoplasm however follow up CT urogram on 10/22 showed no renal mass, stone or hydro.. Normal cysto on 10/22. Some urgency and frequency. He is incontinent most of the time and wears depends daily. He is taking Flomax. .Hx of urinary retention. Hx of scrotal abscess. Most recent PSA was 1.06. Prior PSA was 0.49 on 08/22. Review of Systems Constitutional: Negative for chills and fever. HENT: Negative. Eyes: Negative. Respiratory: Negative for cough and shortness of breath. Cardiovascular: Negative for chest pain and leg swelling. Gastrointestinal: Negative for nausea. Endocrine: Negative. Genitourinary: Negative for difficulty urinating. Negative except for documented in HPI Allergic/Immunologic: Negative. Neurological: Alert & oriented X 3 Hematological: Denies blood thinners Psychiatric/Behavioral: Negative. Objective Physical Exam Vitals and nursing note reviewed. Constitutional: General: He is not in acute distress. Appearance: Normal appearance. Pulmonary: Effort: Pulmonary effort is normal. Abdominal: Tenderness: There is no abdominal tenderness. Genitourinary: Comments: Kidneys non palpable bilaterally Bladder non palpable or tender Scrotum no mass, No hydrocele. Cyst midline. Not fluctuant or painful. Possible chronic scarring/induration Epididymis- No spermatocele. Non Tender. Testicles: No mass Urethra: No discharge Penis within normal limits... No lesions. circumcised Prostate - symmetric, no nodules. BENIGN Seminal Vesicals: No mass. Sphincter tone: normal Neurological: Mental Status: He is alert. Assessment/Plan Diagnoses and all orders for this visit: Gross hematuria Nocturia Urinary incontinence, unspecified type CT with IV contrast scheduled Cysto scheduled All available PSA values reviewed, Options discussed. Questions answered. PSA ordered Diet changes for prostate health discussed and educational information given. Pros/Cons of prostate health supplements discussed. Treatment options for LUTS reviewed-incontinent PVR ordered Discussed timed voiding. Discussed fluid and caffeine intake Treatment options for ED reviewed-Observe Lifestyle change to help prevent UTIs discussed. Encouraged fluid intake. F/U Cysto with CT Assess PVR at cysto documented in this encounter [facility] Work Phone: 06-18-2023 History of Present illness Narrative Subjective Patient ID: Nando Brito is a 62 y.o. male. HPI Patient is here for 3 month follow up with PSA. Most recent PSA was 1.06. Prior PSA was 0.49 on 08/22. Prior PSA was 0.8 on 08/21. Chronic hx of gross hematuria. Pt did have a recent U/S done 05/23 which was normal... RENAL U/S on 09/21 showed apparent solid lesion on the right suspected for neoplasm however follow up CT urogram on 10/22 showed no renal mass, stone or hydro.. Normal cysto on 10/22. Some urgency and frequency. He is incontinent most of the time and wears depends daily. He is taking Flomax. .Hx of urinary retention. Hx of scrotal abscess. Review of Systems Constitutional: Negative for chills and fever. HENT: Negative. Eyes: Negative. Respiratory: Negative for cough and shortness of breath. Cardiovascular: Negative for chest pain and leg swelling. Gastrointestinal: Negative for nausea. Endocrine: Negative. Genitourinary: Negative for difficulty urinating. Negative except for documented in HPI Allergic/Immunologic: Negative. Neurological: Alert & oriented X 3 Hematological: Denies blood thinners Psychiatric/Behavioral: Negative. Objective Physical Exam Vitals and nursing note reviewed. Constitutional: General: He is not in acute distress. Appearance: Normal appearance. Pulmonary: Effort: Pulmonary effort is normal. Abdominal: Tenderness: There is no abdominal tenderness. Genitourinary: Comments: Kidneys non palpable bilaterally Bladder non palpable or tender Scrotum no mass, No hydrocele. No recurrent abcess Epididymis- No spermatocele. Non Tender. Testicles: No mass Urethra: No discharge Penis within normal limits... No lesions Prostate - deferred Neurological: Mental Status: He is alert. Assessment/Plan Diagnoses and all orders for this visit: Scrotal abscess Urinary frequency Nocturia - Prostate Specific Antigen; Future Urinary incontinence, unspecified type Scrotal abscess issue has resolved All available PSA values reviewed, Options discussed. Questions answered. Diet changes for prostate health discussed and educational information given. Pros/Cons of prostate health supplements discussed. Treatment options for LUTS reviewed Flomax re-ordered Discussed timed voiding. Discussed fluid and caffeine intake Treatment options for ED reviewed-observe Lifestyle change to help prevent UTIs discussed. Encouraged fluid intake. F/U 1 year with PSA documented in this encounter [facility] Work Phone: 05-14-2023 Note [facility] Medical Records Department [address] [place] [id number] Discharge Summary 05/14/23 1605 MR#: [id number] Acct: [id number] Name: NANDO BRITO Rep #: [id number] : 1960 62 From: Kirsty Rodarte DO PCP: Dr. Ashley Dickey MD Status:ADM IN Location: [place] [address] Providers Date of Admission: 05/10/23 Date of Discharge: 05/14/23 Primary Care Physician: Dr. Ashley Dickey MD Consultations 05/13/23 16:03 Consult: Sack Department Supervisor / Pulmonary Medicine Routine Consulting Provider: Intensivists/Pulmonary Med Reason for Consult: hypoxia EMERGENT Consult: No MD Notified: Yes Date Notified: 05/13/23 Time Notified: 16:03 Method of Notification: Verbal Reason For Visit: HYPOXIA, COPD/ASTHMA EXAC, INFLUENZA A Diagnosis Discharge Diagnosis (1) Acute hypoxic respiratory failure: Status: Acute Code(s): J96.01 - Acute respiratory failure with hypoxia (2) Type A influenza: Status: Acute Code(s): J10.1 - Influenza due to other identified influenza virus with other respiratory manifestations (3) History of schizophrenia: Status: Acute Code(s): Z86.59 - Personal history of other mental and behavioral disorders Medications at Discharge Home Medications Dulcolax 5 mg PO PRN PRN Constipation 05/26/17 acetaminophen 325 mg tablet (Tylenol) 650 mg PO Q4H PRN Headache 05/26/17 albuterol sulfate 2.5 mg/3 mL (0.083 %) solution for nebulization 2.5 mg inhalation Q6H PRN PRN Sob /Or Wheezing 05/26/17 aluminum-mag hydroxide-simethicone 400 mg-400 mg-40 mg/5 mL oral susp (Mag-Al Plus Extra Strength) 30 ml PO Q4H PRN PRN Indigestion 05/26/17 aripiprazole 5 mg tablet 5 mg PO QHS blood thinner 05/26/17 benzocaine 15 mg-menthol 3.6 mg lozenges (Cepacol Sore Throat (benzocaine-menthol)) 1 blaire buccal PRN PRN Sore Throat 05/26/17 bisacodyl 10 mg rectal suppository 10 mg RECTAL DAILY PRN PRN Constipation 05/26/17 calcium carbonate 600 mg-vitamin D3 5 mcg (200 unit) tablet (Calcium 600 + D(3)) 1 ea PO BID supplement 05/26/17 divalproex 125 mg capsule,delayed release sprinkle (Depakote Sprinkles) 125 mg PO Q8H schizophrednia 05/26/17 docusate sodium 100 mg capsule (DOK) 100 mg PO DAILY stool softener 05/26/17 fludrocortisone 0.1 mg tablet 0.05 mg PO DAILY@0800 abn labs 05/26/17 guaifenesin 100 mg/5 mL oral liquid 10 ml PO Q4H PRN PRN Cough 05/26/17 haloperidol 1 mg tablet 3 mg PO TID anxiety 05/26/17 lithium carbonate 300 mg tablet,extended release 300 mg PO BID biopolar 05/26/17 magnesium hydroxide 400 mg/5 mL oral suspension 30 ml PO DAILY PRN PRN Constipation 05/26/17 polyethylene glycol 3350 17 gram oral powder packet 17 g PO DAILY constipation 05/26/17 tamsulosin 0.4 mg capsule (Flomax) 0.4 mg PO DAILY urinary retention 05/26/17 atorvastatin 40 mg tablet 40 mg PO QHS hyperlipidemia 05/10/23 cholecalciferol (vitamin D3) 50 mcg (2,000 unit) capsule (Vitamin D3) 4,000 unit PO DAILY vitamin 05/10/23 diphenhydramine HCl 50 mg/mL injection solution 50 mg IM Q6H PRN agitation 05/10/23 folic acid 400 mcg tablet 400 mcg PO DAILY deficiency 05/10/23 haloperidol lactate 5 mg/mL injection solution 5 mg IM Q3H PRN agitation 05/10/23 hydrocortisone 10 mg tablet 10 mg PO BID adrenal insuffienciency 05/10/23 hydrocortisone 5 mg tablet 5 mg PO DAILY adrenal insuffiencien 05/10/23 lactulose 10 gram/15 mL oral solution (Enulose) 20 g PO BID abn labs 05/10/23 lorazepam 0.5 mg tablet (Ativan) 0.5 mg PO Q6H PRN anxiety 05/10/23 lorazepam 1 mg tablet 1 mg PO TID anxiety 05/10/23 melatonin 3 mg capsule 6 mg PO QHS insom 05/10/23 nicotine (polacrilex) 2 mg buccal lozenge 2 mg mucous membrane Q2H PRN nicotine cravings 05/10/23 nicotine 10 mg inhalation cartridge (Nicotrol) 1 inh inhalation Q2H PRN nicotine cravings 05/10/23 paroxetine HCl 20 mg tablet 20 mg PO DAILY depression 05/10/23 levofloxacin 750 mg tablet 750 mg PO DAILY #3 tabs 05/14/23 prednisone 10 mg tablet 10 mg PO DAILY #30 tabs 05/14/23 Hospital Course Operations None Procedures EKG, Modified Barium Swallow and - (Chest x-ray/CTA of the chest) Summary of Care Provided Minutes Spent on Discharge: 41 Hospital Course: Patient is a 62-year-old white male with a history of anoxic injury and dementia who is a resident at a local [facility] who presented to the emergency department at [facility] on 05/10/2023 with acute onset of fever, dyspnea, tachypnea, and hypoxia over the last 24 hours prior to presentation. At the nursing facility they noted accessory muscle use and he had a Tmax of 100.9. Chest x-ray is unremarkable. He was also screened for influenza, COVID, and RSV all of which were unremarkable. In the emergency department he was alert and await and noted to be in mild respiratory distress but does not verbally communicate at baseline. Vital signs on presentation were relatively stable other than his respiratory rate was 27 and he was (more content not included)... [facility] 05-14-2023 Consult note Note Date/Time May 14, 2023 9:17am [facility] Medical Records Department [address] [place] [address] Consultation - Sack Department Supervisor 05/14/23 0914 MR#: [id number] Acct: [id number] Name: NANDO BRITO Rep #:[id number] : 1960 62 From: Scott Blandon MD PCP: Dr. Ashley Dickey MD Status:ADM IN [id number] Assessment & Plan Assessment/Plan (1) Acute hypoxic respiratory failure: (2) Type A influenza: (3) History of schizophrenia: PLAN: Plan RECOMMENDATIONS: 1. Schedule Mucinex. Doubt patient would tolerate vest 2. Continue steroids and bronchodilators 3. Minimize sedative medications 4. Continue swallow precautions IMPRESSIONS: 1. Acute hypoxic respiratory failure secondary to influenza A, probable aspiration pneumonia in the setting of presumed COPD Patient does have a long smoking history, so obstructive lung disease would be suspected. This has not been confirmed by PFT. Patient does have significant wheezing on exam despite multiple days of antibiotics. Patient has not been able to comply with pulmonary toileting well, but CT scan does appear to have an element of atelectasis. ABG shows adequate ventilation with significant increase in a gradient. Could attempt CPAP or vest therapy for recruitment, but doubt patient would tolerate this well given his concomitant psychiatric issues. Will attempt to schedule patient's Robitussin for pulmonarytoileting. Avoidance of sedative medications may be helpful for spontaneous pulmonary toileting. Patient does not appear to be clinically volume overloaded. 2. Toxic/metabolic encephalopathy/schizoaffective disorder/anxiety/depression Patient's baseline mental status does complicate his overall condition. Patient has been continued on baseline medications. Would attempt to limit sedative medications as this will decrease his ability for spontaneous pulmonarytoileting. 3. History of adrenal insufficiency/bradycardia/BPH/pancytopenia/CKD stage II Complicates care, management, recovery and prognosis. Patient has no signs or symptoms of bleeding at this time. Patient has received contrast, but appears to have tolerated this well. There does appear to be a discrepancy between CODE STATUS in the computer and notes, but no family is available for verification. Will defer to hospitalist. HPI Consult Data Date of Consult: 05/14/23 HPI Narrative Reason for Consultation: Hypoxia HPI Narrative: NANDO BRITO is a 62 M, with past medical history listed below, who presented to [facility] on 05/10/2023 secondary to hypoxia and shortness of breath. Patient resides at a nursing facility and has a history of COPD, schizophrenia and iron deficiency anemia. Patient was noted to have a temperature of 100.9 ?F at that time and had tested positive for influenza. Patientreportedly is an active daily smoker. In the ER, patient was afebrile, but tachypneic at 27 breaths/min. Patient did require 4 L nasal cannula as he was 84% on room air. Laboratory data showed a white blood cell count of 3, hemoglobin of 9.9 and platelets of 88. Patient also has a bicarbonate of 29 with a creatinine of 1.35. Lactate was within normal limits. Chest x-ray showed increased interstitial markings in the right base. The patient was admitted to the floor for further evaluation. Since admission, patient has had a swallow study showing some dysphagia but p.o.intake has been maintained using modifications. Patient is relatively nonverbaland unable to provide much additional information. No family is at the bedside. Unable to obtain a review of systems [facility] Medical History Adrenal insufficiency Anxiety and depression Asthma BPH (benign prostatic hyperplasia) Chronic anemia COPD (chronic obstructive pulmonary disease) Dementia Dysphagia GERD (gastroesophageal reflux disease) History of anoxic brain injury HLD (hyperlipidemia) HTN (hypertension) Hydrocele IBS (irritable bowel syndrome) Mood disorder Polyarthropathy Schizoaffective disorder Schizophrenia Seizure disorder Home Medications Dulcolax 5 mg PO PRN PRN Constipation 05/26/17 [History Last Taken Unknown] acetaminophen 325 mg tablet (Tylenol) 650 mg PO Q4H PRN Headache 05/26/17 [History Last Taken Unknown] albuterol sulfate 2.5 mg/3 mL (0.083 %) solution for nebulization 2.5 mg inhalation Q6H PRN PRN Sob &/Or Wheezing 05/26/17 [History Last Taken Unknown] aluminum-mag hydroxide-simethicone 400 mg-400 mg-40 mg/5 mL oral susp (Mag-Al Plus Extra Strength) 30 ml PO Q4H PRN PRN Indigestion 05/26/17 [History Last Taken Unknown] aripiprazole 5 mg tablet 5 mg PO QHS blood thinner 05/26/17 [History Last Taken 06/05/17 20:45 1] benzocaine 15 mg-menthol 3.6 mg lozenges (Cepacol Sore Throat (benzocaine-menthol)) 1 blaire buccal PRN PRN Sore Throat 05/26/17 [History Last Taken Unknown] bisacodyl 10 mg rectal suppository 10 mg RECTAL DAILY PRN PRN Constipation 05/26/17 [History Last Taken Unknown] calcium carbonate 600 mg-vitamin D3 5 mcg (200 unit) tablet (Calcium 600 + D(3))1 ea PO BID supplement 05/26/17 [History Last Taken 06/05/17 20:45 1] divalproex 125 mg capsule,delayed release sprinkle (Depakote Sprinkles) 125 mg PO Q8H schizophrednia 05/26/17 [History Last Taken 06/05/17 20:45 1] docusate sodium 100 mg capsule (DOK) 100 mg PO DAILY stool softener 05/26/17 [History Last Taken Unknown] fludrocortisone 0.1 mg tablet 0.05 mg PO DAILY@0800 abn labs 05/26/17 [History Last Taken Unknown] guaifenesin 100 mg/5 mL oral liquid 10 ml PO Q4H PRN PRN Cough 05/26/17 [History Last Taken Unknown] haloperidol 1 mg tablet 3 mg PO TID anxiety 05/26/17 [History Last Taken 06/05/17 20:45 1] lithium carbonate 300 mg tablet,extended release 300 mg PO BID biopolar 05/26/17[History Last Taken 06/05/17 20:45 1] magnesium hydroxide 400 mg/5 mL oral suspension 30 ml PO DAILY PRN PRN Constipation 05/26/17 [History Last Taken Unknown] polyethylene glycol 3350 17 gram oral powder packet 17 g PO DAILY constipation 05/26/17 [History Last Taken Unknown] tamsulosin 0.4 mg capsule (Flomax) 0.4 mg PO DAILY urinary retention 05/26/17 [History Last Taken Unknown] atorvastatin 40 mg tablet 40 mg PO QHS hyperlipidemia 05/10/23 [History Last Taken Unknown] cholecalciferol (vitamin D3) 50 mcg (2,000 unit) capsule (Vitamin D3) 4,000 unitPO DAILY vitamin 05/10/23 [History Last Taken Unknown] diphenhydramine HCl 50 mg/mL injection solution 50 mg IM Q6H PRN agitation 05/10/23 [History Last Taken Unknown] folic acid 400 mcg tablet 400 mcg PO DAILY deficiency 05/10/23 [History Last Taken Unknown] haloperidol lactate 5 mg/mL injection solution 5 mg IM Q3H PRN agitation 05/10/23 [History Last Taken Unknown] hydrocortisone 10 mg tablet 10 mg PO BID adrenal insuffienciency 05/10/23 [History Last Taken Unknown] hydrocortisone 5 mg tablet 5 mg PO DAILY adrenal insuffiencien 05/10/23 [History Last Taken Unknown] lactulose 10 gram/15 mL oral solution (Enulose) 20 g PO BID abn labs 05/10/23 [History Last Taken Unknown] levofloxacin 500 mg tablet 500 mg PO DAILY copd 05/10/23 [History Last Taken Unknown] lorazepam 0.5 mg tablet (Ativan) 0.5 mg PO Q6H PRN anxiety 05/10/23 [History Last Taken Unknown] lorazepam 1 mg tablet 1 mg PO TID anxiety 05/10/23 [History Last Taken Unknown] melatonin 3 mg capsule 6 mg PO QHS insom 05/10/23 [History Last Taken Unknown] nicotine (polacrilex) 2 mg buccal lozenge 2 mg mucous membrane Q2H PRN nicotine cravings 05/10/23 [History Last Taken Unknown] nicotine 10 mg inhalation cartridge (Nicotrol) 1 inh inhalation Q2H PRN nicotinecravings 05/10/23 [History Last Taken Unknown] paroxetine HCl 20 mg tablet 20 mg PO DAILY depression 05/10/23 [History Last Taken Unknown] propranolol 80 mg capsule,24 hr,extended release 80 mg PO DAILY bp 05/10/23 [History Last Taken Unknown] Allergy/AdvReac Type Severity Reaction Status Date / Time ciprofloxacin [From Cipro] AdvReac Hives Verified 11/12/15 19:37 codeine AdvReac Hives Verified 11/12/15 19:37 Penicillins AdvReac Hives Verified 11/12/15 19:37 sulfamethoxazole AdvReac Hives Verified 11/12/15 19:37 [From Bactrim] trimethoprim [From Bactrim] AdvReac Hives Verified 11/12/15 19:37 Social History household members: none housing: group home Smoking Status: Current every day smoker tobacco type: cigarettes alcohol intake: never substance use type: does not use Physical Exam Const no apparent distress and average body habitus Constitutional Narrative: Patient makes eye contact and does follow some commands, but not answering questions. HEENT head/scalp atraumatic HEENT Narrative: Edentulous with some temporal wasting. Eyes PERRL and EOMs intact bilaterally Neck full ROM and supple Chest Chest Narrative: Increased AP diameter Resp normal respiratory effort, no retractions and no use of accessory muscles Resp Narrative: Rhonchi noted in bases bilaterally Auscultation: rhonchi; Negative for wheezes Cardio regular rhythm, S1 normal heart sound, S2 normal heart sound, no murmurs, no rub, no gallops and no clicks Rate: bradycardia GI normal to inspection, nondistended, normoactive bowel sounds, soft to palpation and non-tender Extremity Extremity Narrative: Pedal pulses are 2+. Grade 1 clubbing noted General Extremity: clubbing Skin no rashes or lesions noted Neuro Neuro Narrative: Patient refusing to interact with me at this time. Alert and follows some commands. Psych Psych Narrative: Calm currently Medical Records Data Attestation: I reviewed the patient's medical records Lab / Micro Data Attestation: I reviewed the patient's lab results. 05/14/23 06:30 05/14/23 06:30 Labs: Laboratory Results - last 24 hr 05/13/23 12:43: POC Glucose 120 H 05/13/23 16:40: Ammonia 21.0 05/14/23 06:30: WBC 3.6 L, RBC 3.11 L, Hgb 9.4 L, Hct 28.8 L, MCV 92.6, MCH 30.2, MCHC 32.6, RDW Std Deviation 41.0, RDW Coeff of Eyal 12.1, Plt Count 92 L, MPV 10.6, Immature Gran % (Auto) 0.300, Neut % (Auto) 68.7, Lymph % (Auto) 25.7,Nez Perce % (Auto) 5.3, Eos % (Auto) 0.0, Baso % (Auto) 0.0, Absolute Neuts (auto) 2.5, Absolute Lymphs (auto) 0.92, Nucleated RBC % 0, Differential Comment , Platelet Estimate SLT DEC, Sodium 144, Potassium 4.2, Chloride 112 H, Carbon Dioxide 27.0, Anion Gap 5, BUN 28 H, Creatinine 1.13, Estim Creat Clear Calc 67.78, Est GFR (MDRD) Af Amer 84, Est GFR (MDRD) Non-Af 70, BUN/Creatinine Ratio24.8 H, Glucose 106, Calcium 8.4 L, Phosphorus 3.4, Magnesium 2.7 H, Total Bilirubin 0.30, AST 18, ALT 13 L, Alkaline Phosphatase 48, Total Protein 5.1 L, Albumin 2.4 L, Globulin 2.7, Albumin/Globulin Ratio 0.9 ABG Data ABG results: ABG 05/13/23 13:20 Specimen Type ART Sample Site L Brach pH 7.43 Bicarbonate Actual 23.9 Total CO2 25 Base Excess 0 O2 Saturation 90 L O2 % 4.0 ABG pCO2 36.0 ABG pO2 56 L O2 Delivery Device Not entered Vent Mode Not entered Imaging Personal review of CT scan does show some bronchial thickening with basilar atelectasis/infiltrate. Charges/Coding Visit Charges Inpatient E&M: 83119 Init Hosp L3 05/14/23 1352 <Electronically signed by Scott Blandon MD> Cosigner Signature (if applicable): CC: Dr. Jonnathan Campuzano MD; Dr. Roxanne More MD; Dr. Scott Blandon MD; Dr. Robert Barr MD; Dr. Lupillo Porras DO; Dr. Kt Garcia MD; Dr. Jose Johnson MD; Dr. Sanjuana Wasserman MD; Dr. Tomer Hawkins MD; Dr. Beltran Dubois MD; Dr. Jj Lutz MD; Dr. Ashley Dickey MD; Dr. Cb Amor MD; Dr. Yann Ji MD; Dr. Antonia Parsons MD~ Signed [facility] Work Phone: [phone]) 541-700803-12-2024 Progress note Author Kirsty Rodarte [facility] May 13, 2023 5:28pm Note Date/Time May 13, 2023 5:2 9pm [facility] System Medical Records Department [address] [place] [address] Progress Note - Hospitalist 05/13/23 1721 MR#: [id number] Acct: [id number] Name: NANDO BRITO Rep #:[id number] : 1960 62 From: Kirsty Rodarte DO PCP: Dr. Ashley Dickey MD Status:ADM IN Location: [place] [id number] Reason for Visit Reason for Visit: Diagnoses Influenza due to other identified influenza virus with other respiratory manifestations (05/10/23) Acute respiratory failure with hypoxia (05/10/23) Other nonspecific abnormal finding of lung field (05/10/23) Subjective Subjective Patient with some agitation overnight was given Ativan, Benadryl, and his as needed Haldol. He is now sleepy this morning. Patient with some bradycardia aswell. EKG shows P waves in lead II and aVF which are the best places to see P waves so I suspect this is sinus bradycardia. He is on propranolol and on Tamiflu. Will hold both. Objective Data Objective Data Vital Signs: Vital Signs Temp Pulse Resp BP Pulse Ox O2 Del Method O2 Flow Rate 97.8 F 50 L 20 H 139/74 H 94 High Flow 6 05/13/23 16:27 05/13/23 16:27 05/13/23 16:27 05/13/23 16:27 05/13/23 16:27 05/13/23 16:27 05/13/23 16:27 Oxygen Flow Rate (L/min) 6 Oxygen Delivery Method High Flow Weight: 74.52 kg Body Mass Index (BMI) 24.3 Intake & Output: Intake and Output for Last 24 Hours 05/11/23 05/12/23 05/13/23 23:59 23:59 23:59 Intake Total 400 / 600 400 / 400 Balance 400 / 600 400 / 400 Lab / Micro Data 05/13/23 06:28 05/13/23 06:28 Labs: Laboratory Results - last 24 hr 05/13/23 06:28: WBC 4.4, RBC 3.18 L, Hgb 9.5 L, Hct 29.6 L, MCV 93.1, MCH 29.9, MCHC 32.1, RDW Std Deviation 41.6, RDW Coeff of Eyal 12.1, Plt Count 93 L, MPV 10.6, Immature Gran % (Auto) 0.700, Neut % (Auto) 73.1 H, Lymph % (Auto) 19.8, [place] % (Auto) 6.2, Eos % (Auto) 0.0, Baso % (Auto) 0.2, Absolute Neuts (auto) 3.2, Absolute Lymphs (auto) 0.86, Nucleated RBC % 0, Reactive Lymphocytes 1+, Platelet Estimate MOD DEC, Sodium 144, Potassium 3.9, Chloride 114 H, Carbon Dioxide 27.0, Anion Gap 3 L, BUN 28 H, Creatinine 1.14, Estim Creat Clear Calc 67.19, Est GFR (MDRD) Af Amer 84, Est GFR (MDRD) Non-Af 69, BUN/Creatinine Ratio24.6 H, Glucose 110 H, Calcium 9.3 05/13/23 12:43: POC Glucose 120 H Micro: Microbiology 05/10/23 01:49 Mucosa - Nose SARS-CoV-2, Influenza & RSV (PCR) - Final Influenzae A ABG Data ABG results: ABG 05/13/23 13:20 Specimen Type ART Sample Site L Brach pH 7.43 Bicarbonate Actual 23.9 Total CO2 25 Base Excess 0 O2 Saturation 90 L O2 % 4.0 ABG pCO2 36.0 ABG pO2 56 L O2 Delivery Device Not entered Vent Mode Not entered Physical Exam Const no apparent distress and average body habitus Constitutional Narrative: Middle-aged, white male, laying in left side-lying, has just gotten up to go to the bathroom but currently will not interact with me at this time, nursing home aide at the bedside HEENT head/scalp atraumatic HEENT Narrative: Patient is a dentulous and mucous membranes are moist Head and Scalp: normocephalic Resp normal respiratory effort, no retractions and no use of accessory muscles Resp Narrative: Rhonchi noted in bases bilaterally Auscultation: rhonchi; Negative for crackles or wheezes Cardio regular rate, regular rhythm, S1 normal heart sound, S2 normal heart sound, no murmurs, no rub, no gallops and no clicks GI normal to inspection, nondistended, normoactive bowel sounds, soft to palpation and non-tender Extremity no clubbing, cyanosis or edema Extremity Narrative: Pedal pulses are 2+ Neuro Neuro Narrative: Patient refusing to interact with me at this time Psych Psych Narrative: Calm currently Assessment & Plan Assessment/Plan (1) Acute hypoxic respiratory failure: (2) Type A influenza: (3) Right lower lobe pulmonary infiltrate: (4) Bradycardia: (5) Toxic metabolic encephalopathy: PLAN: Plan Acute hypoxic respiratory failure secondary to influenza A and probable superimposed bacterial pneumonia -Oxygen status fluctuates and currently on 6 L heated high flow -ABG was performed and patient is hypoxic on ABG with a pO2 of 58 on 4 L -Wean oxygen as able -Ability to participate with I-S and Acapella is limited due to baseline mental status -Speech therapy is following and modified barium swallow done today with found diagnosis of severe oral dysphagia and mild pharyngeal dysphagia -Continue cefepime-day 4 of 7 -CTA of the chest was unremarkable for PE but does show patchy bibasilar infiltrates -I think his hypoxia is multifactorial related to his bacterial pneumonia, possibly some underlying COPD as well as atelectasis and aspiration -Consult pulmonary medicine Dysphagia -Severe oral dysphagia and mild pharyngeal dysphagia on MBS done on 05/13/2023 -Recommended diet is pur?ed with thin liquids -Compensatory strategies as noted -Patient will need supervision with one-on-one feeding and sips of 1 to 2 ouncesat a time and a cup with no straws -Repeat modified barium swallow has been recommended Bradycardia -Heart rate has slowly been trending down -Will hold propranolol -Tamiflu can cause bradycardia so we will discontinue this -Continue to monitor on telemetry -Patient appears to be asymptomatic Toxic/metabolic encephalopathy -Patient was given Ativan, Benadryl, and Haldol overnight -Seems to be room proving as time goes on -ABG is unremarkable -Ammonia level has been ordered and currently pending as the patient is on Depakote at baseline with history of hyperammonemia -He is chronically on lactulose -Cefepime could be contributing to this as well and if it is persistent tomorrowmay need to change antibiotics History of adrenal insufficiency -Continue home fludrocortisone -Continue home hydrocortisone -Blood pressures have remained stable CKD stage II -Serum creatinine appears to be stable -Continue to monitor especially with CTA of the chest Dementia of unclear type with behavioral disturbances/schizophrenia/schizoaffective disorder/anxiety and depression -Continue home aripiprazole -Continue as needed diphenhydramine -Continue home Depakote -Continue home scheduled and as needed Haldol -Continue home lactulose for history of hyperammonemia related to his Depakote use -Continue home lithium -Continue home lorazepam -Continue home melatonin -Continue home paroxetine BPH with obstruction -Continue home Flomax Hypertension -Continue home propranolol History of vitamin D deficiency -Continue home vitamin D and calcium supplementation Chronic pancytopenia -Counts are stable overall -Likely related to medications -Continue to monitor History of IBS with constipation -Continue home bowel regimen DVT prophylaxis -Continue subcu enoxaparin CODE STATUS -DNR CCA Charges/Coding Visit Charges Inpatient E&M: 67272 Subs Hosp L3 05/13/23 1728 <Electronically signed by Kirsty Rodarte DO> Cosigner Signature (if applicable): CC: ~ Signed [facility] Work Phone: 1(492) 351-671203-12-2024 Procedure [facility] 05-12-2023 Progress note Author Kirsty Rodarte [facility] May 12, 2023 6:06pm Note Date/Time May 12, 2023 10: 23am [facility] Medical Records Department [address] [place] [address] Progress Note - Hospitalist 05/12/23 1009 MR#: [id number] Acct: [id number] Name: NANDO BRITO Rep #:[id number] : 1960 62 From: Kirsty Rodarte DO PCP: Dr. Ashley Dickey MD Status:ADM [facility] Reason for Visit Reason for Visit: Shortness of breath, hypoxia, fever Subjective Subjective Patient is a 62-year-old white male with a history of anoxic injury and dementiawho is a resident at a local [facility] who presented to the emergency department at [facility] on 05/10/2023 with acute onset of fever, dyspnea, tachypnea, and hypoxia over the last 24 hours prior to presentation. At the nursing facility they noted accessory muscle use and he had a Tmax of 100.9. Chest x-ray is unremarkable. He was also screened for influenza, COVID, and RSVall of which were unremarkable. In the emergency department he was alert and await and noted to be in mild respiratory distress but does not verbally communicate at baseline. Vital signs on presentation were relatively stable other than his respiratory rate was 27 and he was 84% on room air. He was placed on nasal cannula at 4 L which improved his respiratory status to 94%. CBC showed neutropenia a chronic stable hemoglobin and thrombocytopenia which appears to be chronic as well. Patient was lymphopenic on presentation. On presentation his serum creatinine and BUN were slightly elevated at 21 and 1.35. Lactic acid was unremarkable. Blood cultures were obtained another rapid COVID, flu, RSV panel was performed and this time was noted to be positive for influenza A. Imaging was also concerning for opacities in the lower lobes bilaterally that was suggestive of atelectasis, infection, or aspiration. He was admitted to the medical floor and placed on antibiotics as well as Tamiflu. He was also treated with an increased dose of fludrocortisone due to his historyof adrenal insufficiency. It was documented that he was up to heated high flow at 7 L however he kept pulling off his oxygen and oxygen saturations were measured on room air at 90%. Patient was sleeping comfortably at the time of my evaluation. Objective Data Objective Data Vital Signs: Vital Signs Temp Pulse Resp BP Pulse Ox O2 Del Method O2 Flow Rate 98.7 F 61 22 H 146/73 H 91 High Flow 7 05/12/23 05:53 05/12/23 05:53 05/12/23 05:53 05/12/23 05:53 05/12/23 07:50 05/12/23 07:50 05/12/23 07:50 Oxygen Flow Rate (L/min) 7 Oxygen Delivery Method High Flow Weight: 75.4 kg Body Mass Index (BMI) 24.6 Intake & Output: Intake and Output for Last 24 Hours 05/10/23 05/11/23 05/12/23 22:59 23:59 23:59 Intake Total 200 / 200 Balance 200 / 200 Lab / Micro Data 05/12/23 07:41 05/12/23 07:41 Labs: Laboratory Results - last 24 hr 05/12/23 07:41: WBC 5.2, RBC 3.86 L, Hgb 11.6 L, Hct 36.2 L, MCV 93.8, MCH 30.1,MCHC 32.0, RDW Std Deviation 42.4, RDW Coeff of Eyal 12.2, Plt Count 109 L, MPV 10.2, Immature Gran % (Auto) 1.000 H, Neut % (Auto) 76.1 H, Lymph % (Auto) 15.2 L, [place] % (Auto) 7.7, Eos % (Auto) 0.0, Baso % (Auto) 0.0, Absolute Neuts (auto)4.0, Absolute Lymphs (auto) 0.79 L, Nucleated RBC % 0, Sodium 143, Potassium 3.9, Chloride 111 H, Carbon Dioxide 28.0, Anion Gap 4 L, BUN 22 H, Creatinine 1.14, Estim Creat Clear Calc 67.19, Est GFR (MDRD) Af Amer 84, Est GFR (MDRD) Non-Af 69, BUN/Creatinine Ratio 19.3, Glucose 104, Calcium 9.2 Micro: Microbiology 05/10/23 01:49 Mucosa - Nose SARS-CoV-2, Influenza & RSV (PCR) - Final Influenzae A Physical Exam Const no apparent distress and average body habitus Constitutional Narrative: Middle-aged, white male, laying in left side-lying, sleeping and appears comfortable HEENT head/scalp atraumatic Head and Scalp: normocephalic Resp normal respiratory effort, no retractions, no use of accessory muscles and clearto auscultation bilaterally Resp Narrative: Lungs were diminished but clear Auscultation: Negative for crackles, rhonchi or wheezes Cardio regular rate, regular rhythm, S1 normal heart sound, S2 normal heart sound, no murmurs, no rub, no gallops and no clicks GI normal to inspection, nondistended, normoactive bowel sounds, soft to palpation and non-tender Extremity no clubbing, cyanosis or edema Extremity Narrative: Pedal pulses are 2+ Neuro Neuro Narrative: Unable to assess due to patient sleeping Psych Psych Narrative: Calm, patient sleeping Assessment & Plan Assessment/Plan (1) Acute hypoxic respiratory failure: (2) Type A influenza: (3) Right lower lobe pulmonary infiltrate: PLAN: Plan Acute hypoxic respiratory failure secondary to influenza A and probable superimposed bacterial pneumonia -Patient has required up titration to now 7 L heated high flow nasal cannula -Wean oxygen as able -Ability to participate with I-S and Acapella is limited due to baseline mental status -Consult speech therapy -Will make n.p.o. except for her p.o. meds until speech therapy can see the patient -Continue IV antibiotics but transition from doxycycline to cefepime for aspiration coverage -Patient has allergies to quinolones and penicillins -Check CT of the chest to rule out any other etiology that could be contributingto worsening hypoxemia History of adrenal insufficiency -Continue home fludrocortisone -Continue home hydrocortisone -Blood pressures have remained stable CKD stage II -Serum creatinine appears to be stable -Continue to monitor especially with CTA of the chest Dementia of unclear type with behavioral disturbances/schizophrenia/schizoaffective disorder/anxiety and depression -Continue home aripiprazole -Continue as needed diphenhydramine -Continue home Depakote -Continue home scheduled and as needed Haldol -Continue home lactulose for history of hyperammonemia related to his Depakote use -Continue home lithium -Continue home lorazepam -Continue home melatonin -Continue home paroxetine BPH with obstruction -Continue home Flomax Hypertension -Continue home propranolol History of vitamin D deficiency -Continue home vitamin D and calcium supplementation Chronic pancytopenia -Counts are stable overall -Likely related to medications Open continue to monitor History of IBS with constipation -Continue home bowel regimen DVT prophylaxis -Add daily enoxaparin CODE STATUS -DNR CCA Charges/Coding Visit Charges Inpatient E&M: 03339 Subs Hosp L2 05/12/23 1806 <Electronically signed by Kirsty Rodarte DO> Cosigner Signature (if applicable): CC: ~ Signed [facility] Work Phone: 1(393) 752-483103-10-2024 Progress note Author Robert Barr [facility] May 11, 2023 9:20am Note Date/Time May 11, 2023 9:1 9am [facility] Medical Records Department [address] [place] [address] Progress Note - Hospitalist 05/11/23 0916 MR#: [id number] Acct: [id number] Name: NANDO BRITO Rep #:[id number] : 1960 62 From: Robert Barr MD PCP: Dr. Ashley Dickey MD Status:ADM IN Location: [place] [address] Reason for Visit Reason for Visit: Diagnoses Influenza due to other identified influenza virus with other respiratory manifestations (05/10/23) Subjective Subjective Patient is a 62-year-old gentleman admitted with acute influenza A infection admitted to regular nursing floor for further management Objective Data Objective Data Vital Signs: Vital Signs Temp Pulse Resp BP Pulse Ox O2 Del Method O2 Flow Rate 97.8 F 62 20 H 141/87 H 94 Nasal Cannula 4 05/11/23 06:43 05/11/23 06:43 05/11/23 06:43 05/11/23 06:43 05/11/23 07:58 05/11/23 07:58 05/11/23 07:58 Oxygen Flow Rate (L/min) 4 Oxygen Delivery Method Nasal Cannula Weight: 75.4 kg Body Mass Index (BMI) 24.6 Intake & Output: Intake and Output for Last 24 Hours 05/09/23 05/10/23 05/12/23 23:59 23:59 00:59 Intake Total 2361.67 / 2361.67 Balance 2361.67 / 2361.67 Lab / Micro Data 05/11/23 06:22 05/11/23 06:22 Labs: Laboratory Results - last 24 hr 05/11/23 06:22: WBC 2.5 L, RBC 3.41 L, Hgb 10.5 L, Hct 32.1 L, MCV 94.1 H, MCH 30.8, MCHC 32.7, RDW Std Deviation 42.1, RDW Coeff of Eyal 12.2, Plt Count 101 L,MPV 10.0, Immature Gran % (Auto) 0.800, Neut % (Auto) 65.6, Lymph % (Auto) 25.6,[place] % (Auto) 8.0, Eos % (Auto) 0.0, Baso % (Auto) 0.0, Absolute Neuts (auto) 1.6 L, Absolute Lymphs (auto) 0.64 L, Nucleated RBC % 0, Sodium 141, Potassium 4.1, Chloride 112 H, Carbon Dioxide 26.0, Anion Gap 3 L, BUN 21 H, Creatinine 0.96, Estim Creat Clear Calc 79.78, Est GFR (MDRD) Af Amer 101, Est GFR (MDRD) Non-Af 84, BUN/Creatinine Ratio 21.8 H, Glucose 117 H, Calcium 9.0, Phosphorus 4.2, Magnesium 2.6 Micro: Microbiology 05/10/23 01:49 Mucosa - Nose SARS-CoV-2, Influenza & RSV (PCR) - Final Influenzae A Physical Exam Narrative GENERAL: cooperative HEENT: Atraumatic; normocephalic EYES; Anicteric, Normal Conjunctiva NECK; supple, normal thyroid, RESPIRATORY: Diminished to auscultation CARDIOVASCULAR: Regular S1 S2, GI: soft, normoactive bowel sounds, : No Renal angle tenderness; EXTREMITIES: No edema, no clubbing, MUSCULOSKELETAL: no muscle wasting NEURO: Awake; no lateralizing signs. SKIN: No Rash PSYCH; Flat affect Assessment & Plan Assessment/Plan (1) Type A influenza: PLAN: Plan Patient is a 62-year-old gentleman with history of COPD schizophrenia who presented with shortness of breath and assessment of COPD with acute exacerbation made admitted to regular nursing floor for further management 1. Acute hypoxia ? Secondary to combination of COPD with acute exacerbation, acute influenza A infection as well as left lower lobe pneumonia 2. Pneumonia with suspected streptococcal pneumonia ? Admitted to regular nursing floor managed with bronchodilator treatment, antibiotic therapy with doxycycline as well as supplemental oxygen cultures wereobtained in the ED we will follow-up on result 3. COPD with acute exacerbation ? Managed bronchodilator treatment, systemic steroid and supplemental oxygen 4. Acute influenza A infection ? Symptomatic treatment 5. Acute kidney injury ? Baseline creatinine from 11/12/2015 was 0.96 creatinine on admission was 1.35 started on IV fluid with subsequent monitoring of electrolyte 6. Adrenal insufficiency ? Patient is on fludrocortisone did continue 7. Pancytopenia ? Of unknown etiology monitoring with CBC with differential 8. Schizophrenia ? Did continue with patient psychotropic medications 9. History of anoxic brain injury ? Complicating care supportive treatments as needed 10. Seizure disorder ? Patient is on Depakote continue 11. Tobacco dependence - Counseled on cessation, offered nicotine patch for tobacco cravings 12. Chronic dysphagia ? Consult placed to speech therapy 13. DVT prophylaxis ? SCDs only given patient's low platelet count Time spent in the patient's overall evaluation,decision-making process, review of diagnostic data, adjustment of management, discussion with other providers, nursing nursing and ancillary staff involved in patient's care documentation, 40 Minutes Charges/Coding Visit Charges Inpatient E&M: 81354 Subs Hosp L2 05/11/23 0920 <Electronically signed by Robert Barr MD> Cosigner Signature (if applicable): CC: ~ Signed [facility] Work Phone: [phone]) 282-558603-09-2024 Progress note Author Robert Barr [facility] May 10, 2023 10:00am Note Date/Time May 10, 2023 7:23 am [facility] System Medical Records Department [address] [place] [address] Progress Note - Hospitalist 05/10/23 0717 MR#: [id number] Acct: [id number] Name: NANDO BRITO Rep #:[id number] : 1960 62 From: Robert Barr MD PCP: Dr. Ashley Dickey MD Status:ADM IN Location: [address] Reason for Visit Reason for Visit: Diagnoses Influenza due to other identified influenza virus with other respiratory manifestations (05/10/23) Subjective Subjective Patient is a 62-year-old gentleman with history of COPD schizophrenia who presented with shortness of breath and assessment of COPD with acute exacerbation made admitted to regular nursing floor for further management Objective Data Objective Data Vital Signs: Vital Signs Temp Pulse Resp BP Pulse Ox O2 Del Method O2 Flow Rate 99 F 68 18 99/65 94 Nasal Cannula 4 05/10/23 06:06 05/10/23 06:06 05/10/23 06:06 05/10/23 06:06 05/10/23 06:07 05/10/23 06:07 05/10/23 06:07 Oxygen Flow Rate (L/min) 4 Oxygen Delivery Method Nasal Cannula Weight: 75.55 kg Body Mass Index (BMI) 24.6 Intake & Output: Intake and Output for Last 24 Hours 05/08/23 05/09/23 05/10/23 23:59 23:59 23:59 Intake Total 240 / 240 Balance 240 / 240 Lab / Micro Data 05/10/23 06:14 05/10/23 06:14 Labs: Laboratory Results - last 24 hr 05/10/23 01:49: WBC 3.0 L, RBC 3.30 L, Hgb 9.9 L, Hct 31.1 L, MCV 94.2 H, MCH 30.0, MCHC 31.8 L, RDW Std Deviation 43.1, RDW Coeff of Eyal 12.5, Plt Count 88 L, MPV 10.2, Immature Gran % (Auto) 0.300, Neut % (Auto) 65.0, Lymph % (Auto) 24.7, [place] % (Auto) 9.7, Eos % (Auto) 0.0, Baso % (Auto) 0.3, Absolute Neuts (auto) 2.0, Absolute Lymphs (auto) 0.74 L, Nucleated RBC % 0, Platelet Estimate SLT DEC, Sodium 139, Potassium 4.1, Chloride 107, Carbon Dioxide 29.0, Anion Gap3 L, BUN 21 H, Creatinine 1.35 H, Est GFR (MDRD) Af Amer 69, Est GFR (MDRD) Non-Af 57 L, BUN/Creatinine Ratio 15.6, Glucose 99, Calcium 9.2, Total Bilirubin 0.30, AST 19, ALT 18, Alkaline Phosphatase 53, Troponin I High Sens 9, Total Protein 6.2 L, Albumin 3.1 L, Globulin 3.1, Albumin/Globulin Ratio 1.0 05/10/23 02:06: Lactic Acid 0.6 05/10/23 04:48: Procalcitonin 0.10 H 05/10/23 06:14: WBC 2.2 L, RBC 3.43 L, Hgb 10.3 L, Hct 32.0 L, MCV 93.3, MCH 30.0, MCHC 32.2, RDW Std Deviation 42.6, RDW Coeff of Eyal 12.4, Plt Count 83 L, MPV 9.7, Immature Gran % (Auto) 0.500, Neut % (Auto) 77.4 H, Lymph % (Auto) 18.4L, [place] % (Auto) 3.7, Eos % (Auto) 0.0, Baso % (Auto) 0.0, Absolute Neuts (auto)1.7 L, Absolute Lymphs (auto) 0.40 L, Nucleated RBC % 0, Sodium 139, Potassium 4.2, Chloride 109 H, Carbon Dioxide 28.0, Anion Gap 2 L, BUN 21 H, Creatinine 1.15, Estim Creat Clear Calc 66.60, Est GFR (MDRD) Af Amer 83, Est GFR (MDRD) Non-Af 68, BUN/Creatinine Ratio 18.3, Glucose 117 H, Calcium 9.1, Total Bilirubin 0.40, AST 20, ALT 17, Alkaline Phosphatase 57, Total Protein 6.4, Albumin 3.0 L, Globulin 3.4, Albumin/Globulin Ratio 0.9 Micro: Microbiology 05/10/23 01:49 Mucosa - Nose SARS-CoV-2, Influenza & RSV (PCR) - Final Influenzae A Radiography Diagnostic Testing: Radiology Impression Chest X-Ray 05/10/23 01:55 IMPRESSION: Opacities in the lower lobes bilaterally may represent atelectasis, infection and/or aspiration. Electronically Signed: Darren Cotto MD at 4:24 EST Reading Location ID and State: [facility] / [place] Tel , Service support , Physical Exam Narrative GENERAL: cooperative HEENT: Atraumatic; normocephalic EYES; Anicteric, Normal Conjunctiva NECK; supple, normal thyroid, RESPIRATORY: Diminished to auscultation CARDIOVASCULAR: Regular S1 S2, GI: soft, normoactive bowel sounds, : No Renal angle tenderness; EXTREMITIES: No edema, no clubbing, MUSCULOSKELETAL: no muscle wasting NEURO: Awake; no lateralizing signs. SKIN: No Rash PSYCH; Flat affect Assessment & Plan Assessment/Plan (1) Type A influenza: PLAN: Plan Patient is a 62-year-old gentleman with history of COPD schizophrenia who presented with shortness of breath and assessment of COPD with acute exacerbation made admitted to regular nursing floor for further management 1. Acute hypoxia ? Secondary to combination of COPD with acute exacerbation as well as left lowerlobe pneumonia 2. Pneumonia with suspected streptococcal pneumonia ? Admitted to regular nursing floor managed with bronchodilator treatment, antibiotic therapy with doxycycline as well as supplemental oxygen cultures were obtained in the ED we will follow-up on result 3.COPD with acute exacerbation ? Managed bronchodilator treatment, systemic steroid and supplemental oxygen 4. Acute kidney injury ? Baseline creatinine from 11/12/2015 was 0.96 creatinine on admission was 1.35 started on IV fluid with subsequent monitoring of electrolyte 5. Adrenal insufficiency ? Patient is on fludrocortisone did continue 6. Chronic dysphagia ? Consult placed to speech therapy 7. Pancytopenia ? Of unknown etiology monitoring with CBC with differential 8. Schizophrenia ? Did continue with patient psychotropic medications 9. History of anoxic brain injury ? Complicating care supportive treatments as needed 10. Seizure disorder ? Patient is on Depakote continue 11. Tobacco dependence - Counseled on cessation, offered nicotine patch for tobacco cravings 12. DVT prophylaxis ? SCDs only given patient's low platelet count 05/10/23 1000 <Electronically signed by Robert Barr MD> Cosigner Signature (if applicable): CC: ~ Signed [facility] Work Phone: [phone]) [phone] History and physical note Author Roxanne More [facility] May 10, 2023 4:00am Note Date/Time May 10, 2023 3:20 am [facility] Medical Records Department [address] [place] [address] H&P Exam - Hospitalist 05/10/23 0318 MR#: [id number] Acct: [id number] Name: NANDO BRITO Rep #:[id number] : 1960 62 From: Roxanne More MD PCP: Dr. Ashley Dickey MD Status:REG ER Location: ED HPI - General General Date of Admission: 05/10/23 Date of Service: 05/10/23 Chief Complaint: Dyspnea, hypoxia, increased work of breathing, fever. HPI Narrative The patient is a 62 y/o M w/ PMHx: Tobacco use, Dementia unclear type with unclear behavioral disturbance history, IBS, Polyarthropathy, Hx Obstructive uropathy/BPH, Chronic oral dysphagia, Chronic anemia/iron deficiency anemia, Chronic Pancytopenia, Schizophrenia/Schizoaffective disorder/Anxiety and Depression/Mood disorder, COPD/Asthma, Seizure disorder, Adrenal insufficiency, Hx Anoxic brain injury, GERD, HTN, HLD who presents to the [facility] ED on 05/10/23 withhistory of onset over the last 24 hours fever, dyspnea, tachypnea with hypoxia noted at snf facility with accessory muscle usage and temperature documented at facility 100.9 with recent reported chest x-ray that had been unremarkable and negative influenza/COVID/RSV testing also but given ongoing symptoms prompted referral to ED for evaluation. In the emergency room patient is alert and awake although evidence of mild respiratory distress but does not verbally communicate which suspect is his baseline. Workup in the ED included T97.4, heart rate 65, BP 108/59, respiratory rate 27, 84% on room air initially with improvement to 94% on 4 L nasal cannula, CBC with WBC 3.0, hemoglobin 9.9, MCV 94.2, platelets 88 with lymphopenia, CMP with BUN/creatinine 21/1.35, GFR 57, hepatic profile otherwise not marked appearing, lactic acid 0.6, blood culture x 2 pending per ED, rapid SARS COVID/influenza/RSV PCR with Influenza A,chest x- ray with increased interstitial markings right lower lobe with no comparison available pending radiology read, EKG with sinus rhythm with flipped T waves anteriorly with no old EKG for comparison. In the ED patient ministeredDuoNeb therapy, Tamiflu 75 mg p.o. x 1 as well as Solu-Medrol 125 mg IV x 1. [facility] Medical History (Updated 05/10/23 @ 03:[address] Jose Olvera MD) Adrenal insufficiency Anxiety and depression Asthma BPH (benign prostatic hyperplasia) Chronic anemia COPD (chronic obstructive pulmonary disease) Dementia Dysphagia GERD (gastroesophageal reflux disease) History of anoxic brain injury HLD (hyperlipidemia) HTN (hypertension) Hydrocele IBS (irritable bowel syndrome) Mood disorder Polyarthropathy Schizoaffective disorder Schizophrenia Seizure disorder Home Medications Dulcolax 5 mg PO PRN PRN Constipation 05/26/17 [History Last Taken Unknown] acetaminophen 325 mg tablet (Tylenol) 650 mg PO Q4H PRN Headache 05/26/17 [History Last Taken Unknown] albuterol sulfate 2.5 mg/3 mL (0.083 %) solution for nebulization 2.5 mg inhalation Q6H PRN PRN Sob &/Or Wheezing 05/26/17 [History Last Taken Unknown] aluminum-mag hydroxide-simethicone 400 mg-400 mg-40 mg/5 mL oral susp (Mag-Al Plus Extra Strength) 30 ml PO Q4H PRN PRN Indigestion 05/26/17 [History Last Taken Unknown] aripiprazole 5 mg tablet 5 mg PO QHS 05/26/17 [History Last Taken 06/05/17 20:45 1] benzocaine 15 mg-menthol 3.6 mg lozenges (Cepacol Sore Throat (benzocaine- menthol)) 1 blaire buccal PRN PRN Sore Throat 05/26/17 [History Last Taken Unknown] benztropine 1 mg tablet 0.5 mg PO DAILY 05/26/17 [History Last Taken Unknown] bisacodyl 10 mg rectal suppository 10 mg RECTAL DAILY PRN PRN Constipation 05/26/17 [History Last Taken Unknown] calcium carbonate 600 mg-vitamin D3 5 mcg (200 unit) tablet (Calcium 600 + D(3))1 ea PO BID 05/26/17 [History Last Taken 06/05/17 20:45 1] divalproex 125 mg capsule,delayed release sprinkle (Depakote Sprinkles) 500 mg PO BID 05/26/17 [History Last Taken 06/05/17 20:45 1] docusate sodium 100 mg capsule (DOK) 100 mg PO DAILY 05/26/17 [History Last Taken Unknown] ferrous sulfate 325 mg (65 mg iron) tablet (Iron (ferrous sulfate)) 325 mg PO BID 05/26/17 [History Last Taken Unknown] fludrocortisone 0.1 mg tablet 0.1 mg PO DAILY@0800 05/26/17 [History Last Taken Unknown] guaifenesin 100 mg/5 mL oral liquid 10 ml PO Q4H PRN PRN Cough 05/26/17 [History Last Taken Unknown] haloperidol 1 mg tablet 3 mg PO TID 05/26/17 [History Last Taken 06/05/17 20:45 1] lithium carbonate 300 mg tablet,extended release 300 mg PO BID 05/26/17 [History Last Taken 06/05/17 20:45 1] loperamide 2 mg capsule 2 mg PO Q8H PRN Diarrhea 05/26/17 [History Last Taken Unknown] lorazepam 0.5 mg tablet 0.5 mg PO TID 05/26/17 [History Last Taken 06/05/17 20:45 1] magnesium hydroxide 400 mg/5 mL oral suspension 30 ml PO DAILY PRN PRN Constipation 05/26/17 [History Last Taken Unknown] melatonin-pyridoxine HCl (vitamin B6) 3 mg-10 mg tablet 1 ea PO QHS 05/26/17 [History Last Taken Unknown] polyethylene glycol 3350 17 gram oral powder packet 17 g PO DAILY 05/26/17 [History Last Taken Unknown] tamsulosin 0.4 mg capsule (Flomax) 0.4 mg PO DAILY 05/26/17 [History Last Taken Unknown] doxycycline monohydrate 100 mg capsule 100 mg PO BID #20 caps 06/06/17 [Rx Last Taken Unknown] oxycodone-acetaminophen 5 mg-325 mg tablet 1 - 2 tab PO Q4H PRN PRN Pain 7 days #14 tabs 06/06/17 [Rx Last Taken Unknown] haloperidol lactate 5 mg/mL injection solution 5 mg IM Q3H PRN agitation 05/10/23 [History Last Taken Unknown] lorazepam 0.5 mg tablet (Ativan) 0.5 mg PO .q6hr PRN anxiety 05/10/23 [History Last Taken Unknown] Allergy/AdvReac Type Severity Reaction Status Date / Time ciprofloxacin [From Cipro] AdvReac Hives Verified 11/12/15 19:37 codeine AdvReac Hives Verified 11/12/15 19:37 Penicillins AdvReac Hives Verified 11/12/15 19:37 sulfamethoxazole AdvReac Hives Verified 11/12/15 19:37 [From Bactrim] trimethoprim [From Bactrim] AdvReac Hives Verified 11/12/15 19:37 Social History (Updated 05/10/23 @ 03:[address] Roxanne More MD) household members: none housing: group home Smoking Status: Current every day smoker tobacco type: cigarettes alcohol intake: never substance use type: does not use ROS Review of Systems ROS Unobtainable: due to mental status Vital Signs Vital Signs Vital Signs: 05/10/23 01:44 05/10/23 01:48 05/10/23 02:09 Temperature 97.4 F L Temperature Source Temporal Pulse Rate 65 Respiratory Rate 27 H Respiratory Effort Respiratory Depth Respiratory Pattern Blood Pressure 108/59 L Blood Pressure Mean 75 Pulse Ox 84 94 Oxygen Delivery Method Room Air Nasal Cannula Room Air Oxygen Flow Rate (L/min) 4 05/10/23 02:10 05/10/23 02:12 05/10/23 02:16 Temperature Temperature Source Pulse Rate 60 Respiratory Rate 24 H Respiratory Effort Short of Breath Labored Pursed Lip Respiratory Depth Shallow Respiratory Pattern Tachypnea Tachypnea Blood Pressure Blood Pressure Mean Pulse Ox Oxygen Delivery Method Nasal Cannula Nasal Cannula Oxygen Flow Rate (L/min) 4 4 Physical Exam Narrative Physical Examination: General: Awake, appears alert but nonverbal, unable to answer any orientation questions, suspect this is at baseline, remains primarily cooperative but not able to follow most commands but suspect this is chronic, seated upright in the ED bed, fatigued and ill-appearing, ongoing increased respiratory rate with someaccessory muscle usage noted. Skin: Normal color, normal turgor, no icterus, no cyanosis except for occasionalstaged ecchymoses, abrasion. HEENT: AT/NC, EOMI, PERRLA, dry MM, evident congestion, no carotid bruits or JVDnoted. Lungs: Significantly diminished, tight, increased respiratory rate with accessory muscle usage evident, mild distress, rales noted, currently no wheezing but ED physician had noted significant wheezing prior although patient isstatus post aerosol treatments thus certainly could have improved. Heart: Currently regular rate and rhythm; no gallop, rub audible. Abdomen: Soft, NTTP, ND, mildly hyperactive BS, no appreciated HSM. Extremities: No cyanosis, clubbing, or edema, somewhat difficult evaluation as patient is tucking his legs under him and suspect this is a chronic positioning of his. Neurological: Awake, appears alert but nonverbal, unable to answer any orientation questions, suspect this is at baseline, remains primarily cooperative but not able to follow most commands but suspect this is chronic, seated upright in the ED bed, fatigued and ill-appearing, unclear exact baseline cognitive status but suspect he is nonverbal at baseline, pupils equally reactive to light and accommodation, cranial nerves grossly normal, moving all 4extremities, strength severely globally decreased. Psychiatric: Affect appears flat, no acute evidence of depressive or anxiety feelings but does have underlying significant psychiatric history. Results Lab / Micro Data 05/10/23 01:49 05/10/23 01:49 Labs: Laboratory Results - last 24 hr 05/10/23 01:49: WBC 3.0 L, RBC 3.30 L, Hgb 9.9 L, Hct 31.1 L, MCV 94.2 H, MCH 30.0, MCHC 31.8 L, RDW Std Deviation 43.1, RDW Coeff of Eyal 12.5, Plt Count 88 L, MPV 10.2, Immature Gran % (Auto) 0.300, Neut % (Auto) 65.0, Lymph % (Auto) 24.7, [place] % (Auto) 9.7, Eos % (Auto) 0.0, Baso % (Auto) 0.3, Absolute Neuts (auto) 2.0, Absolute Lymphs (auto) 0.74 L, Nucleated RBC % 0, Sodium 139, Potassium 4.1, Chloride 107, Carbon Dioxide 29.0, Anion Gap 3 L, BUN 21 H, Creatinine 1.35 H, Est GFR (MDRD) Af Amer 69, Est GFR (MDRD) Non-Af 57 L, BUN/Creatinine Ratio 15.6, Glucose 99, Calcium 9.2, Total Bilirubin 0.30, AST 19, ALT 18, Alkaline Phosphatase 53, Total Protein 6.2 L, Albumin 3.1 L, Globulin 3.1, Albumin/Globulin Ratio 1.0 05/10/23 02:06: Lactic Acid 0.6 Assessment & Plan Assessment/Plan (1) Type A influenza: PLAN: Plan The patient is a 62 y/o M w/ PMHx: Tobacco use, Dementia unclear type with unclear behavioral disturbance history, IBS, Polyarthropathy, Hx Obstructive uropathy/BPH, Chronic oral dysphagia, Chronic anemia/iron deficiency anemia, Chronic Pancytopenia, Schizophrenia/Schizoaffective disorder/Anxiety and Depression/Mood disorder, COPD/Asthma, Seizure disorder, Adrenal insufficiency, Hx Anoxic brain injury, GERD, HTN, HLD who presents to the [facility] ED on 05/10/23 withhistory of onset over the last 24 hours fever, dyspnea, tachypnea with hypoxia noted at snf facility with accessory muscle usage and temperature documented at facility 100.9 with recent reported chest x-ray that had been unremarkable and negative influenza/COVID/RSV testing also but given ongoing symptoms prompted referral to ED for evaluation. #1. Acute Hypoxia with respiratory distress component (increased RR, accessory muscle usage, hypoxia) secondary to Acute on Chronic COPD/Asthma exacerbation secondary to Acute Influenza A Viral Syndrome with Questionable RLL infiltrate (pending radiology read): Will admit to [facility] given DNR-CC status, maintain on oxygen with wean as tolerated to room air, continue ATC budesonide, PRN albuterol, IV methylprednisolone, continue tamiflu regimen, HOB, IS parameters, will obtain sputum Cx, procalcitonin, will hold on immediately abx therapy as suspect primarily viral but low threshold to add if appropriate and concern superimposed bacterial pneumonia. #2. Adrenal insufficiency: Given acute presentation #1 will double dose of patient fludrocortisone temporarily and once clinically improving transition back to baseline dosing. If patient significantly worsens may consider IV hydrocortisone stress dosing but again patient is DNR CC status thus this may betoo aggressive a component. #3. Possible acute renal insufficiency on CKD stage II but unclear as no recenttrending available versus progressed renal disease to CKD stage III unclear subtype: Admission BUN/Cr 21/1.35, GFR 57, baseline renal function noted prior 0.96 11/12/2015 with GFR at that time in the 80s, will continue treatment as noted with judicious hydration, repeat BMP in AM to further elucidate current baseline renal function/status. #4. Dementia unclear type with unclear behavioral disturbance history: Complicates presentation especially given underlying significant concurrent psychiatric history, will maintain on fall and aspiration precautions, PT/OT/ST/case management consulted for discharge planning. #5. Chronic oral dysphagia: Clarifying diet at facility, in the interim we willalso consult speech therapy for assessment, maintain on aspiration precautions. #6. Chronic anemia/iron deficiency anemia: Admission hemoglobin 9.9, MCV 94.2, most recent previous hemoglobin remotely noted 11/2015 10.2, will continue to trend CBC, continue oral iron supplementation. #7. Chronic pancytopenia: Admission CBC with WC 3.0, hemoglobin 9.9, platelet 88, review of previous CBC with similar decrease, unclear exact etiology, will continue to trend CBC. #8. Schizophrenia/Schizoaffective disorder/Anxiety and Depression/Mood disorder: As long as patient is not lethargic given significant underlying psychiatric history will continue psychiatric regimen however if necessary will hold sedated regimen. regimen includes aripiprazole, benztropine, Depakote, Haldol, lithium, Ativan. #9. History anoxic brain injury: Complicates presentation, patient pretty much nonverbal in the ED, do suspect likely baseline but unclear what component is from brain injury and what is from his underlying psychiatric issues. #10. Hypertension: Chart reported history, BP currently normal range, currentlylist does not appear to have any antihypertensive regimen, clarifying, in the interim we will have as needed IV hydralazine. #11. Hyperlipidemia: Noted in the chart history, not on regimen, defer. #12. Seizure disorder: We will continue patient home Depakote regimen. #13. Tobacco Abuse: Encouraged cessation, inpatient consultation per RT, NR if desired. #14. BPH with history of obstructive uropathy: We will continue patient on Flomax regimen. #15. IBS with chronic constipation component: We will continue patient home bowel regimen. #16. DVT prophylaxis: Will defer given DNRCC status, pancytopenia and given significant underlying psychiatric history noted in the ED to primarily be talking his feet under him would certainly potentially cause patient distress touse SCDs. #17. CODE STATUS: Per facility paperwork review patient is a DNR CC status. Charges/Coding Visit Charges Inpatient E&M: 49755 Init Hosp L3 05/10/23 0400 <Electronically signed by Roxanne More MD> Cosigner Signature (if applicable): CC: Dr. Roxanne More MD; Dr. Ashley Dickey MD~ Signed [facility] Work Phone: [phone] History and physical note Author [facility] May 10, 2023 4:00am Note Date/Time May 10, 2023 3:20 am [facility] Medical Records Department [address] [place] [address] H&P Exam - Hospitalist 05/10/238 MR#: [id number] Acct: [id number] Name: NANDO BRITO Rep #:[id number] : 1960 62 From: Roxanne More MD PCP: Dr. Ashley Dickey MD Status:REG ER Location: ED HPI - General General Date of Admission: 05/10/23 Date of Service: 05/10/23 Chief Complaint: Dyspnea, hypoxia, increased work of breathing, fever. HPI Narrative The patient is a 62 y/o M w/ PMHx: Tobacco use, Dementia unclear type with unclear behavioral disturbance history, IBS, Polyarthropathy, Hx Obstructive uropathy/BPH, Chronic oral dysphagia, Chronic anemia/iron deficiency anemia, Chronic Pancytopenia, Schizophrenia/Schizoaffective disorder/Anxiety and Depression/Mood disorder, COPD/Asthma, Seizure disorder, Adrenal insufficiency, Hx Anoxic brain injury, GERD, HTN, HLD who presents to the [facility] ED on 05/10/23 withhistory of onset over the last 24 hours fever, dyspnea, tachypnea with hypoxia noted at snf facility with accessory muscle usage and temperature documented at facility 100.9 with recent reported chest x-ray that had been unremarkable and negative influenza/COVID/RSV testing also but given ongoing symptoms prompted referral to ED for evaluation. In the emergency room patient is alert and awake although evidence of mild respiratory distress but does not verbally communicate which suspect is his baseline. Workup in the ED included T97.4, heart rate 65, BP 108/59, respiratory rate 27, 84% on room air initially with improvement to 94% on 4 L nasal cannula, CBC with WBC 3.0, hemoglobin 9.9, MCV 94.2, platelets 88 with lymphopenia, CMP with BUN/creatinine 21/1.35, GFR 57, hepatic profile otherwise not marked appearing, lactic acid 0.6, blood culture x 2 pending per ED, rapid SARS COVID/influenza/RSV PCR with Influenza A,chest x- ray with increased interstitial markings right lower lobe with no comparison available pending radiology read, EKG with sinus rhythm with flipped T waves anteriorly with no old EKG for comparison. In the ED patient ministeredDuoNeb therapy, Tamiflu 75 mg p.o. x 1 as well as Solu-Medrol 125 mg IV x 1. [facility] Medical History (Updated 05/10/23 @ 03:[address] Jose Olvera MD) Adrenal insufficiency Anxiety and depression Asthma BPH (benign prostatic hyperplasia) Chronic anemia COPD (chronic obstructive pulmonary disease) Dementia Dysphagia GERD (gastroesophageal reflux disease) History of anoxic brain injury HLD (hyperlipidemia) HTN (hypertension) Hydrocele IBS (irritable bowel syndrome) Mood disorder Polyarthropathy Schizoaffective disorder Schizophrenia Seizure disorder Home Medications Dulcolax 5 mg PO PRN PRN Constipation 05/26/17 [History Last Taken Unknown] acetaminophen 325 mg tablet (Tylenol) 650 mg PO Q4H PRN Headache 05/26/17 [History Last Taken Unknown] albuterol sulfate 2.5 mg/3 mL (0.083 %) solution for nebulization 2.5 mg inhalation Q6H PRN PRN Sob &/Or Wheezing 05/26/17 [History Last Taken Unknown] aluminum-mag hydroxide-simethicone 400 mg-400 mg-40 mg/5 mL oral susp (Mag-Al Plus Extra Strength) 30 ml PO Q4H PRN PRN Indigestion 05/26/17 [History Last Taken Unknown] aripiprazole 5 mg tablet 5 mg PO QHS 05/26/17 [History Last Taken 06/05/17 20:45 1] benzocaine 15 mg-menthol 3.6 mg lozenges (Cepacol Sore Throat (benzocaine- menthol)) 1 blaire buccal PRN PRN Sore Throat 05/26/17 [History Last Taken Unknown] benztropine 1 mg tablet 0.5 mg PO DAILY 05/26/17 [History Last Taken Unknown] bisacodyl 10 mg rectal suppository 10 mg RECTAL DAILY PRN PRN Constipation 05/26/17 [History Last Taken Unknown] calcium carbonate 600 mg-vitamin D3 5 mcg (200 unit) tablet (Calcium 600 + D(3))1 ea PO BID 05/26/17 [History Last Taken 06/05/17 20:45 1] divalproex 125 mg capsule,delayed release sprinkle (Depakote Sprinkles) 500 mg PO BID 05/26/17 [History Last Taken 06/05/17 20:45 1] docusate sodium 100 mg capsule (DOK) 100 mg PO DAILY 05/26/17 [History Last Taken Unknown] ferrous sulfate 325 mg (65 mg iron) tablet (Iron (ferrous sulfate)) 325 mg PO BID 05/26/17 [History Last Taken Unknown] fludrocortisone 0.1 mg tablet 0.1 mg PO DAILY@0800 05/26/17 [History Last Taken Unknown] guaifenesin 100 mg/5 mL oral liquid 10 ml PO Q4H PRN PRN Cough 05/26/17 [History Last Taken Unknown] haloperidol 1 mg tablet 3 mg PO TID 05/26/17 [History Last Taken 06/05/17 20:45 1] lithium carbonate 300 mg tablet,extended release 300 mg PO BID 05/26/17 [History Last Taken 06/05/17 20:45 1] loperamide 2 mg capsule 2 mg PO Q8H PRN Diarrhea 05/26/17 [History Last Taken Unknown] lorazepam 0.5 mg tablet 0.5 mg PO TID 05/26/17 [History Last Taken 06/05/17 20:45 1] magnesium hydroxide 400 mg/5 mL oral suspension 30 ml PO DAILY PRN PRN Constipation 05/26/17 [History Last Taken Unknown] melatonin-pyridoxine HCl (vitamin B6) 3 mg-10 mg tablet 1 ea PO QHS 05/26/17 [History Last Taken Unknown] polyethylene glycol 3350 17 gram oral powder packet 17 g PO DAILY 05/26/17 [History Last Taken Unknown] tamsulosin 0.4 mg capsule (Flomax) 0.4 mg PO DAILY 03/26/18 [History Last Taken Unknown] doxycycline monohydrate 100 mg capsule 100 mg PO BID #20 caps 06/06/17 [Rx Last Taken Unknown] oxycodone-acetaminophen 5 mg-325 mg tablet 1 - 2 tab PO Q4H PRN PRN Pain 7 days #14 tabs 06/06/17 [Rx Last Taken Unknown] haloperidol lactate 5 mg/mL injection solution 5 mg IM Q3H PRN agitation 05/10/23 [History Last Taken Unknown] lorazepam 0.5 mg tablet (Ativan) 0.5 mg PO .q6hr PRN anxiety 05/10/23 [History Last Taken Unknown] Allergy/AdvReac Type Severity Reaction Status Date / Time ciprofloxacin [From Cipro] AdvReac Hives Verified 11/12/15 19:37 codeine AdvReac Hives Verified 11/12/15 19:37 Penicillins AdvReac Hives Verified 11/12/15 19:37 sulfamethoxazole AdvReac Hives Verified 11/12/15 19:37 [From Bactrim] trimethoprim [From Bactrim] AdvReac Hives Verified 11/12/15 19:37 Social History (Updated 05/10/23 @ 03:[address] Roxanne More MD) household members: none housing: group home Smoking Status: Current every day smoker tobacco type: cigarettes alcohol intake: never substance use type: does not use ROS Review of Systems ROS Unobtainable: due to mental status Vital Signs Vital Signs Vital Signs: 05/10/23 01:44 05/10/23 01:48 05/10/23 02:09 Temperature 97.4 F L Temperature Source Temporal Pulse Rate 65 Respiratory Rate 27 H Respiratory Effort Respiratory Depth Respiratory Pattern Blood Pressure 108/59 L Blood Pressure Mean 75 Pulse Ox 84 94 Oxygen Delivery Method Room Air Nasal Cannula Room Air Oxygen Flow Rate (L/min) 4 05/10/23 02:10 05/10/23 02:12 05/10/23 02:16 Temperature Temperature Source Pulse Rate 60 Respiratory Rate 24 H Respiratory Effort Short of Breath Labored Pursed Lip Respiratory Depth Shallow Respiratory Pattern Tachypnea Tachypnea Blood Pressure Blood Pressure Mean Pulse Ox Oxygen Delivery Method Nasal Cannula Nasal Cannula Oxygen Flow Rate (L/min) 4 4 Physical Exam Narrative Physical Examination: General: Awake, appears alert but nonverbal, unable to answer any orientation questions, suspect this is at baseline, remains primarily cooperative but not able to follow most commands but suspect this is chronic, seated upright in the ED bed, fatigued and ill-appearing, ongoing increased respiratory rate with someaccessory muscle usage noted. Skin: Normal color, normal turgor, no icterus, no cyanosis except for occasionalstaged ecchymoses, abrasion. HEENT: AT/NC, EOMI, PERRLA, dry MM, evident congestion, no carotid bruits or JVDnoted. Lungs: Significantly diminished, tight, increased respiratory rate with accessory muscle usage evident, mild distress, rales noted, currently no wheezing but ED physician had noted significant wheezing prior although patient isstatus post aerosol treatments thus certainly could have improved. Heart: Currently regular rate and rhythm; no gallop, rub audible. Abdomen: Soft, NTTP, ND, mildly hyperactive BS, no appreciated HSM. Extremities: No cyanosis, clubbing, or edema, somewhat difficult evaluation as patient is tucking his legs under him and suspect this is a chronic positioning of his. Neurological: Awake, appears alert but nonverbal, unable to answer any orientation questions, suspect this is at baseline, remains primarily cooperative but not able to follow most commands but suspect this is chronic, seated upright in the ED bed, fatigued and ill-appearing, unclear exact baseline cognitive status but suspect he is nonverbal at baseline, pupils equally reactive to light and accommodation, cranial nerves grossly normal, moving all 4extremities, strength severely globally decreased. Psychiatric: Affect appears flat, no acute evidence of depressive or anxiety feelings but does have underlying significant psychiatric history. Results Lab / Micro Data 05/10/23 01:49 05/10/23 01:49 Labs: Laboratory Results - last 24 hr 05/10/23 01:49: WBC 3.0 L, RBC 3.30 L, Hgb 9.9 L, Hct 31.1 L, MCV 94.2 H, MCH 30.0, MCHC 31.8 L, RDW Std Deviation 43.1, RDW Coeff of Eyal 12.5, Plt Count 88 L, MPV 10.2, Immature Gran % (Auto) 0.300, Neut % (Auto) 65.0, Lymph % (Auto) 24.7, [place] % (Auto) 9.7, Eos % (Auto) 0.0, Baso % (Auto) 0.3, Absolute Neuts (auto) 2.0, Absolute Lymphs (auto) 0.74 L, Nucleated RBC % 0, Sodium 139, Potassium 4.1, Chloride 107, Carbon Dioxide 29.0, Anion Gap 3 L, BUN 21 H, Creatinine 1.35 H, Est GFR (MDRD) Af Amer 69, Est GFR (MDRD) Non-Af 57 L, BUN/Creatinine Ratio 15.6, Glucose 99, Calcium 9.2, Total Bilirubin 0.30, AST 19, ALT 18, Alkaline Phosphatase 53, Total Protein 6.2 L, Albumin 3.1 L, Globulin 3.1, Albumin/Globulin Ratio 1.0 05/10/23 02:06: Lactic Acid 0.6 Assessment & Plan Assessment/Plan (1) Type A influenza: PLAN: Plan The patient is a 62 y/o M w/ PMHx: Tobacco use, Dementia unclear type with unclear behavioral disturbance history, IBS, Polyarthropathy, Hx Obstructive uropathy/BPH, Chronic oral dysphagia, Chronic anemia/iron deficiency anemia, Chronic Pancytopenia, Schizophrenia/Schizoaffective disorder/Anxiety and Depression/Mood disorder, COPD/Asthma, Seizure disorder, Adrenal insufficiency, Hx Anoxic brain injury, GERD, HTN, HLD who presents to the [facility] ED on 05/10/23 withhistory of onset over the last 24 hours fever, dyspnea, tachypnea with hypoxia noted at snf facility with accessory muscle usage and temperature documented at facility 100.9 with recent reported chest x-ray that had been unremarkable and negative influenza/COVID/RSV testing also but given ongoing symptoms prompted referral to ED for evaluation. #1. Acute Hypoxia with respiratory distress component (increased RR, accessory muscle usage, hypoxia) secondary to Acute on Chronic COPD/Asthma exacerbation secondary to Acute Influenza A Viral Syndrome with Questionable RLL infiltrate (pending radiology read): Will admit to [facility] given DNR-CC status, maintain on oxygen with wean as tolerated to room air, continue ATC budesonide, PRN albuterol, IV methylprednisolone, continue tamiflu regimen, HOB, IS parameters, will obtain sputum Cx, procalcitonin, will hold on immediately abx therapy as suspect primarily viral but low threshold to add if appropriate and concern superimposed bacterial pneumonia. #2. Adrenal insufficiency: Given acute presentation #1 will double dose of patient fludrocortisone temporarily and once clinically improving transition back to baseline dosing. If patient significantly worsens may consider IV hydrocortisone stress dosing but again patient is DNR CC status thus this may betoo aggressive a component. #3. Possible acute renal insufficiency on CKD stage II but unclear as no recenttrending available versus progressed renal disease to CKD stage III unclear subtype: Admission BUN/Cr 21/1.35, GFR 57, baseline renal function noted prior 0.96 11/12/2015 with GFR at that time in the 80s, will continue treatment as noted with judicious hydration, repeat BMP in AM to further elucidate current baseline renal function/status. #4. Dementia unclear type with unclear behavioral disturbance history: Complicates presentation especially given underlying significant concurrent psychiatric history, will maintain on fall and aspiration precautions, PT/OT/ST/case management consulted for discharge planning. #5. Chronic oral dysphagia: Clarifying diet at facility, in the interim we willalso consult speech therapy for assessment, maintain on aspiration precautions. #6. Chronic anemia/iron deficiency anemia: Admission hemoglobin 9.9, MCV 94.2, most recent previous hemoglobin remotely noted 11/2015 10.2, will continue to trend CBC, continue oral iron supplementation. #7. Chronic pancytopenia: Admission CBC with WC 3.0, hemoglobin 9.9, platelet 88, review of previous CBC with similar decrease, unclear exact etiology, will continue to trend CBC. #8. Schizophrenia/Schizoaffective disorder/Anxiety and Depression/Mood disorder: As long as patient is not lethargic given significant underlying psychiatric history will continue psychiatric regimen however if necessary will hold sedated regimen. regimen includes aripiprazole, benztropine, Depakote, Haldol, lithium, Ativan. #9. History anoxic brain injury: Complicates presentation, patient pretty much nonverbal in the ED, do suspect likely baseline but unclear what component is from brain injury and what is from his underlying psychiatric issues. #10. Hypertension: Chart reported history, BP currently normal range, currentlylist does not appear to have any antihypertensive regimen, clarifying, in the interim we will have as needed IV hydralazine. #11. Hyperlipidemia: Noted in the chart history, not on regimen, defer. #12. Seizure disorder: We will continue patient home Depakote regimen. #13. Tobacco Abuse: Encouraged cessation, inpatient consultation per RT, NR if desired. #14. BPH with history of obstructive uropathy: We will continue patient on Flomax regimen. #15. IBS with chronic constipation component: We will continue patient home bowel regimen. #16. DVT prophylaxis: Will defer given DNRCC status, pancytopenia and given significant underlying psychiatric history noted in the ED to primarily be talking his feet under him would certainly potentially cause patient distress touse SCDs. #17. CODE STATUS: Per facility paperwork review patient is a DNR CC status. Charges/Coding Visit Charges Inpatient E&M: 52100 Init Hosp L3 05/10/23 0400 <Electronically signed by Roxanne More MD> Cosigner Signature (if applicable): CC: Dr. Roxanne More MD; Dr. Ashley Dickey MD~ Signed [facility] Work Phone: [phone] 610-860103-09-2024 Discharge summary Author Jose Olvera [facility] May 10, 2023 3:56am Note Date/Time May 10, 2023 2:10 am [facility] Medical Records Department [address] [place] [address] Emergency Department Summary 05/10/23 MR#: [id number] Acct: [id number] Name: NANDO BRITO Rep #:[id number] : 1960 62 From: Jose Olvera MD PCP: Dr. Ashley Dickey MD Status:REG ER Location: ED HPI History of Present Illness Chief Complaint: Shortness of Breath Detail of Chief Complaint: Fever, shortness of breath and hypoxia Informant: EMS and SNF Onset/Context/Timing Onset: - (Uncertain) Context: - (Unable to determine) Timing: Continuous Current Severity: Patient is using accessory muscles. Worsened by: - (Unable to determine) Relieved by: - (Nothing per group home staff) Associated Symptoms cough and rhinorrhea Chest Pain: Positive for - (Unknown) Narrative Narrative: Patient is 62-year-old male who resides at nursing facility. He has history of COPD, schizophrenia, iron deficiency anemia who presents because of trouble breathing. He had a low pulse ox with a documented temperature of 100.9. Reportedly had a chest x-ray recently that was read as negative residence from that facility that he been seen in emergency room have been positive for influenza type B. PE Risk Factors: Positive for - (Unable to determine) Prior similar symptoms: No Recent Illness/Hospitalization: No PFSH [facility] Medical History (Updated 05/10/23 @ 03:[address] Jose Olvera MD) Adrenal insufficiency Anxiety and depression Asthma BPH (benign prostatic hyperplasia) Chronic anemia COPD (chronic obstructive pulmonary disease) Dementia Dysphagia GERD (gastroesophageal reflux disease) History of anoxic brain injury HLD (hyperlipidemia) HTN (hypertension) Hydrocele IBS (irritable bowel syndrome) Mood disorder Polyarthropathy Schizoaffective disorder Schizophrenia Seizure disorder Home Medications Dulcolax 5 mg PO PRN PRN Constipation 05/26/17 [History Last Taken Unknown] acetaminophen 325 mg tablet (Tylenol) 650 mg PO Q4H PRN Headache 05/26/17 [History Last Taken Unknown] albuterol sulfate 2.5 mg/3 mL (0.083 %) solution for nebulization 2.5 mg inhalation Q6H PRN PRN Sob &/Or Wheezing 05/26/17 [History Last Taken Unknown] aluminum-mag hydroxide-simethicone 400 mg-400 mg-40 mg/5 mL oral susp (Mag-Al Plus Extra Strength) 30 ml PO Q4H PRN PRN Indigestion 05/26/17 [History Last Taken Unknown] aripiprazole 5 mg tablet 5 mg PO QHS 05/26/17 [History Last Taken 06/05/17 20:45 1] benzocaine 15 mg-menthol 3.6 mg lozenges (Cepacol Sore Throat (benzocaine- menthol)) 1 blaire buccal PRN PRN Sore Throat 05/26/17 [History Last Taken Unknown] benztropine 1 mg tablet 0.5 mg PO DAILY 05/26/17 [History Last Taken Unknown] bisacodyl 10 mg rectal suppository 10 mg RECTAL DAILY PRN PRN Constipation 05/26/17 [History Last Taken Unknown] calcium carbonate 600 mg-vitamin D3 5 mcg (200 unit) tablet (Calcium 600 + D(3))1 ea PO BID 05/26/17 [History Last Taken 06/05/17 20:45 1] divalproex 125 mg capsule,delayed release sprinkle (Depakote Sprinkles) 500 mg PO BID 05/26/17 [History Last Taken 06/05/17 20:45 1] docusate sodium 100 mg capsule (DOK) 100 mg PO DAILY 05/26/17 [History Last Taken Unknown] ferrous sulfate 325 mg (65 mg iron) tablet (Iron (ferrous sulfate)) 325 mg PO BID 05/26/17 [History Last Taken Unknown] fludrocortisone 0.1 mg tablet 0.1 mg PO DAILY@0800 05/26/17 [History Last Taken Unknown] guaifenesin 100 mg/5 mL oral liquid 10 ml PO Q4H PRN PRN Cough 05/26/17 [History Last Taken Unknown] haloperidol 1 mg tablet 3 mg PO TID 05/26/17 [History Last Taken 06/05/17 20:45 1] lithium carbonate 300 mg tablet,extended release 300 mg PO BID 05/26/17 [History Last Taken 06/05/17 20:45 1] loperamide 2 mg capsule 2 mg PO Q8H PRN Diarrhea 05/26/17 [History Last Taken Unknown] lorazepam 0.5 mg tablet 0.5 mg PO TID 05/26/17 [History Last Taken 06/05/17 20:45 1] magnesium hydroxide 400 mg/5 mL oral suspension 30 ml PO DAILY PRN PRN Constipation 05/26/17 [History Last Taken Unknown] melatonin-pyridoxine HCl (vitamin B6) 3 mg-10 mg tablet 1 ea PO QHS 05/26/17 [History Last Taken Unknown] polyethylene glycol 3350 17 gram oral powder packet 17 g PO DAILY 05/26/17 [History Last Taken Unknown] tamsulosin 0.4 mg capsule (Flomax) 0.4 mg PO DAILY 05/26/17 [History Last Taken Unknown] doxycycline monohydrate 100 mg capsule 100 mg PO BID #20 caps 06/06/17 [Rx Last Taken Unknown] oxycodone-acetaminophen 5 mg-325 mg tablet 1 - 2 tab PO Q4H PRN PRN Pain 7 days #14 tabs 06/06/17 [Rx Last Taken Unknown] haloperidol lactate 5 mg/mL injection solution 5 mg IM Q3H PRN agitation 05/10/23 [History Last Taken Unknown] lorazepam 0.5 mg tablet (Ativan) 0.5 mg PO .q6hr PRN anxiety 05/10/23 [History Last Taken Unknown] Allergy/AdvReac Type Severity Reaction Status Date / Time ciprofloxacin [From Cipro] AdvReac Hives Verified 11/12/15 19:37 codeine AdvReac Hives Verified 11/12/15 19:37 Penicillins AdvReac Hives Verified 11/12/15 19:37 sulfamethoxazole AdvReac Hives Verified 11/12/15 19:37 [From Bactrim] trimethoprim [From Bactrim] AdvReac Hives Verified 11/12/15 19:37 Social History (Updated 05/10/23 @ 03:[address] Roxanne More MD) household members: none housing: group home Smoking Status: Current every day smoker tobacco type: cigarettes alcohol intake: never substance use type: does not use ROS ROS ED Review of Systems ROS Unobtainable: due to mental condition and due to mental status EXAM Physical Exam Const Vital Signs: 05/10/23 01:44 05/10/23 01:48 05/10/23 02:09 Temperature 97.4 F L Temperature Source Temporal Pulse Rate 65 Respiratory Rate 27 H Respiratory Effort Respiratory Depth Respiratory Pattern Blood Pressure 108/59 L Blood Pressure Mean 75 Pulse Ox 84 94 Oxygen Delivery Method Room Air Nasal Cannula Room Air Oxygen Flow Rate (L/min) 4 05/10/23 02:10 05/10/23 02:12 05/10/23 02:16 Temperature Temperature Source Pulse Rate 60 Respiratory Rate 24 H Respiratory Effort Short of Breath Labored Pursed Lip Respiratory Depth Shallow Respiratory Pattern Tachypnea Tachypnea Blood Pressure Blood Pressure Mean Pulse Ox Oxygen Delivery Method Nasal Cannula Nasal Cannula Oxygen Flow Rate (L/min) 4 4 Positive well developed General Appearance ED: well developed and pallor; Negative for NAD HEENT Reports dry mucous membranes HEENT Narrative: Ears normal. Nares reveal mild congestion. Posterior pharynx unremarkable. atraumatic Mouth ED: Yes dry mucous membranes Mouth: dry mucous membranes Eyes PERRL and EOMs intact bilaterally General Eye ED: Negative for pale conjunctiva or scleral icterus Neck no lymphadenopathy, supple, no meningeal signs and no JVD Resp No normal respiratory effort and No clear to auscultation bilaterally Resp Narrative: Patient does have use of accessory muscles and mild intercostal retractions. Auscultation: rales bilateral base, wheezes expiratory wheezes and throughout and diminished lung sounds Cardio regular rhythm, S1 normal heart sound, S2 normal heart sound and no murmurs Rate: tachycardic GI non-tender, non-distended and no masses Auscultation: normoactive bowel sounds Palpation: soft Back/Spine no CVA tenderness Extremity Extremity Narrative: Fingers are tobacco staining. Question of mild clubbing. There is no acral cyanosis. He is presently on oxygen at 4 L. Neuro CN's II-XII intact bilaterally Neuro Narrative: Unable to determine patient's orientation. He does move all extremities. [place] Coma Scale: document GCS findings Spontaneous Obeys Commands Confused 14 Sensorium / Orientation: Negative for alert Skin no wounds General Skin Exam: pallor; Negative for jaundice MDM MDM MDM Narrative Medical decision making narrative: Unable to obtain history. Paperwork that accompanied him indicates he is DNR comfort care. Differential is COPD exacerbation due to viral illness versus bacterial. Will obtain chest x-ray to rule out pneumonia. CBC to assess white count differential and rule out anemia. Comprehensive metabolic panel to assessfor endorgan dysfunction. Rapid COVID, RSV and influenza since other residents are positive for influenza. History & Record Review Additional record(s) reviewed:: Prior ED visit and Prior labs Lab Data Attestation: I reviewed the patient's lab results. Lab results narrative: Patient is neutropenic and anemic. Most recent blood work is 2015. He was neutropenic at that time as well. Platelet count is low. He has pancytopenia. Electrolyte panel is remarkable for BUN 21 creatinine 1.35. Prior creatinine was 0.9. Albumin is slightly diminished at 3.1. The neutropenia could be due to a viral infection i.e. COVID. Labs: Laboratory Results - last 24 hr 05/10/23 05/10/23 01:49 02:06 WBC 3.0 L RBC 3.30 L Hgb 9.9 L Hct 31.1 L MCV 94.2 H MCH 30.0 MCHC 31.8 L RDW Std Deviation 43.1 RDW Coeff of Eyal 12.5 Plt Count 88 L MPV 10.2 Immature Gran % (Auto) 0.300 Neut % (Auto) 65.0 Lymph % (Auto) 24.7 [place] % (Auto) 9.7 Eos % (Auto) 0.0 Baso % (Auto) 0.3 Absolute Neuts (auto) 2.0 Absolute Lymphs (auto) 0.74 L Nucleated RBC % 0 Sodium 139 Potassium 4.1 Chloride 107 Carbon Dioxide 29.0 Anion Gap 3 L BUN 21 H Creatinine 1.35 H Est GFR (MDRD) Af Amer 69 Est GFR (MDRD) Non-Af 57 L BUN/Creatinine Ratio 15.6 Glucose 99 Lactic Acid 0.6 Calcium 9.2 Total Bilirubin 0.30 AST 19 ALT 18 Alkaline Phosphatase 53 Total Protein 6.2 L Albumin 3.1 L Globulin 3.1 Albumin/Globulin Ratio 1.0 Radiography Chest X-Ray - ED: 1 View and Read by ED Physician (Cardiac size is normal. There is increased interstitial markings right lower lobe. Mediastinum is normal. Osseous structures are unremarkable. There is no recent comparison. There is independently reviewed interpreted by me at 0310.) EKG Initial EKG: Attestation: I personally reviewed and interpreted this EKG as follows: Interpretation: Sinus Rhythm (Rate is 60. Parables 124 ms. Cures duration 94 ms. QT duration 422 ms. There is flipped T waves anterior leads. There is no old for comparison.) Treatment and Re-Evaluation :: Since patient is hypoxic and tachypneic will require admission. Rapid antigen was positive for type A. Tamiflu was ordered. Discharge Plan Triage Chief Complaint: Shortness of Breath ED Provider: Jose Olvera Dx/Rx/DC Orders Clinical Impression: Right lower lobe pulmonary infiltrate, Acute hypoxic respiratory failure, Type A influenza, Acute bronchospasm, History of schizophrenia Prescriptions: No Action albuterol sulfate 2.5 MG/3 ML solution for nebulization 2.5 mg inhalation Q6H PRN PRN (Reason: Sob &/Or Wheezing) calcium carbonate-vitamin D3 [Calcium 600 + D(3)] 1 EACH tablet 1 ea PO BID lorazepam 0.5 MG tablet 0.5 mg PO TID bisacodyl 10 MG suppository 10 mg RECTAL DAILY PRN PRN (Reason: Constipation) benztropine 1 MG tablet 0.5 mg PO DAILY docusate sodium [DOK] 100 MG capsule 100 mg PO DAILY divalproex [Depakote Sprinkles] 125 MG capsule, delayed rel sprinkle 500 mg PO BID aripiprazole 5 MG tablet 5 mg PO QHS Cepacol Sore Throat (dylan-men) 1 EACH lozenge 1 blaire buccal PRN PRN (Reason: Sore Throat) Dulcolax 5 mg PO PRN PRN (Reason: Constipation) acetaminophen [Tylenol] 325 MG tablet 650 mg PO Q4H PRN (Reason: Headache) loperamide 2 MG capsule 2 mg PO Q8H PRN (Reason: Diarrhea) polyethylene glycol 3350 17 GM powder in packet 17 g PO DAILY lithium carbonate 300 MG tablet extended release 300 mg PO BID haloperidol 1 MG tablet 3 mg PO TID guaifenesin 10 ML liquid 10 ml PO Q4H PRN PRN (Reason: Cough) magnesium hydroxide 30 ML suspension 30 ml PO DAILY PRN PRN (Reason: Constipation) tamsulosin [Flomax] 0.4 MG capsule 0.4 mg PO DAILY ferrous sulfate [Iron (ferrous sulfate)] 325 MG tablet 325 mg PO BID fludrocortisone 0.1 MG tablet 0.1 mg PO DAILY@0800 alum-mag hydroxide-simeth [Mag-Al Plus Extra Strength] 30 ML suspension 30 ml PO Q4H PRN PRN (Reason: Indigestion) melatonin-pyridoxine HCl (B6) 1 EACH tablet 1 ea PO QHS oxycodone-acetaminophen 1 TABLET tablet 1 - 2 tab PO Q4H PRN PRN (Reason: Pain) 7 Days Qty: 14 0RF doxycycline monohydrate 100 MG capsule 100 mg PO BID Qty: 20 0RF lorazepam [Ativan] 0.5 mg tablet 0.5 mg PO .q6hr PRN (Reason: anxiety) haloperidol lactate 5 mg/mL solution 5 mg IM Q3H PRN (Reason: agitation) Primary Care Provider: Ashley Dickey Referrals: Ashley Dickey MD [Primary Care Provider] - Disposition Disposition: Acute Care Hospital [facility] What to do if you have Problems For any increased pain, shortness of breath, bleeding, nausea or vomiting, chestpain, or any unexpected problems, contact your Primary Care Provider. Call [facility] ([phone]) or report to the closest Emergency Room. Call 911 if necessary. 05/10/23 0356 <Electronically signed by Jose Olvera MD> Cosigner Signature (if applicable): CC: Dr. Ashley Dickey MD ~ Signed [facility] Work Phone: [phone] Discharge summary Author Jose Olvera [facility] May 10, 2023 3:56am Note Date/Time May 10, 2023 2:10 am [facility] Medical Records Department [address] [place] [address] Emergency Department Summary 05/10/23 MR#: [id number] Acct: [id number] Name: NANDO BRITO Rep #:[id number] : 1960 62 From: Jose Olvera MD PCP: Dr. Ashley Dickey MD Status:REG ER Location: ED HPI History of Present Illness Chief Complaint: Shortness of Breath Detail of Chief Complaint: Fever, shortness of breath and hypoxia Informant: EMS and SNF Onset/Context/Timing Onset: - (Uncertain) Context: - (Unable to determine) Timing: Continuous Current Severity: Patient is using accessory muscles. Worsened by: - (Unable to determine) Relieved by: - (Nothing per group home staff) Associated Symptoms cough and rhinorrhea Chest Pain: Positive for - (Unknown) Narrative Narrative: Patient is 62-year-old male who resides at nursing facility. He has history of COPD, schizophrenia, iron deficiency anemia who presents because of trouble breathing. He had a low pulse ox with a documented temperature of 100.9. Reportedly had a chest x-ray recently that was read as negative residence from that facility that he been seen in emergency room have been positive for influenza type B. PE Risk Factors: Positive for - (Unable to determine) Prior similar symptoms: No Recent Illness/Hospitalization: No PFSH PFSH Medical History (Updated 05/10/23 @ 03:[address] Jose Olvera MD) Adrenal insufficiency Anxiety and depression Asthma BPH (benign prostatic hyperplasia) Chronic anemia COPD (chronic obstructive pulmonary disease) Dementia Dysphagia GERD (gastroesophageal reflux disease) History of anoxic brain injury HLD (hyperlipidemia) HTN (hypertension) Hydrocele IBS (irritable bowel syndrome) Mood disorder Polyarthropathy Schizoaffective disorder Schizophrenia Seizure disorder Home Medications Dulcolax 5 mg PO PRN PRN Constipation 05/26/17 [History Last Taken Unknown] acetaminophen 325 mg tablet (Tylenol) 650 mg PO Q4H PRN Headache 05/26/17 [History Last Taken Unknown] albuterol sulfate 2.5 mg/3 mL (0.083 %) solution for nebulization 2.5 mg inhalation Q6H PRN PRN Sob &/Or Wheezing 05/26/17 [History Last Taken Unknown] aluminum-mag hydroxide-simethicone 400 mg-400 mg-40 mg/5 mL oral susp (Mag-Al Plus Extra Strength) 30 ml PO Q4H PRN PRN Indigestion 05/26/17 [History Last Taken Unknown] aripiprazole 5 mg tablet 5 mg PO QHS 05/26/17 [History Last Taken 06/05/17 20:45 1] benzocaine 15 mg-menthol 3.6 mg lozenges (Cepacol Sore Throat (benzocaine- menthol)) 1 blaire buccal PRN PRN Sore Throat 05/26/17 [History Last Taken Unknown] benztropine 1 mg tablet 0.5 mg PO DAILY 05/26/17 [History Last Taken Unknown] bisacodyl 10 mg rectal suppository 10 mg RECTAL DAILY PRN PRN Constipation 05/26/17 [History Last Taken Unknown] calcium carbonate 600 mg-vitamin D3 5 mcg (200 unit) tablet (Calcium 600 + D(3))1 ea PO BID 05/26/17 [History Last Taken 06/05/17 20:45 1] divalproex 125 mg capsule,delayed release sprinkle (Depakote Sprinkles) 500 mg PO BID 05/26/17 [History Last Taken 06/05/17 20:45 1] docusate sodium 100 mg capsule (DOK) 100 mg PO DAILY 05/26/17 [History Last Taken Unknown] ferrous sulfate 325 mg (65 mg iron) tablet (Iron (ferrous sulfate)) 325 mg PO BID 05/26/17 [History Last Taken Unknown] fludrocortisone 0.1 mg tablet 0.1 mg PO DAILY@0800 05/26/17 [History Last Taken Unknown] guaifenesin 100 mg/5 mL oral liquid 10 ml PO Q4H PRN PRN Cough 05/26/17 [History Last Taken Unknown] haloperidol 1 mg tablet 3 mg PO TID 05/26/17 [History Last Taken 06/05/17 20:45 1] lithium carbonate 300 mg tablet,extended release 300 mg PO BID 05/26/17 [History Last Taken 06/05/17 20:45 1] loperamide 2 mg capsule 2 mg PO Q8H PRN Diarrhea 05/26/17 [History Last Taken Unknown] lorazepam 0.5 mg tablet 0.5 mg PO TID 05/26/17 [History Last Taken 06/05/17 20:45 1] magnesium hydroxide 400 mg/5 mL oral suspension 30 ml PO DAILY PRN PRN Constipation 05/26/17 [History Last Taken Unknown] melatonin-pyridoxine HCl (vitamin B6) 3 mg-10 mg tablet 1 ea PO QHS 05/26/17 [History Last Taken Unknown] polyethylene glycol 3350 17 gram oral powder packet 17 g PO DAILY 05/26/17 [History Last Taken Unknown] tamsulosin 0.4 mg capsule (Flomax) 0.4 mg PO DAILY 05/26/17 [History Last Taken Unknown] doxycycline monohydrate 100 mg capsule 100 mg PO BID #20 caps 06/06/17 [Rx Last Taken Unknown] oxycodone-acetaminophen 5 mg-325 mg tablet 1 - 2 tab PO Q4H PRN PRN Pain 7 days #14 tabs 06/06/17 [Rx Last Taken Unknown] haloperidol lactate 5 mg/mL injection solution 5 mg IM Q3H PRN agitation 05/10/23 [History Last Taken Unknown] lorazepam 0.5 mg tablet (Ativan) 0.5 mg PO .q6hr PRN anxiety 05/10/23 [History Last Taken Unknown] Allergy/AdvReac Type Severity Reaction Status Date / Time ciprofloxacin [From Cipro] AdvReac Hives Verified 11/12/15 19:37 codeine AdvReac Hives Verified 11/12/15 19:37 Penicillins AdvReac Hives Verified 11/12/15 19:37 sulfamethoxazole AdvReac Hives Verified 11/12/15 19:37 [From Bactrim] trimethoprim [From Bactrim] AdvReac Hives Verified 11/12/15 19:37 Social History (Updated 05/10/23 @ 03:[address] Roxanne More MD) household members: none housing: group home Smoking Status: Current every day smoker tobacco type: cigarettes alcohol intake: never substance use type: does not use ROS ROS ED Review of Systems ROS Unobtainable: due to mental condition and due to mental status EXAM Physical Exam Const Vital Signs: 05/10/23 01:44 05/10/23 01:48 05/10/23 02:09 Temperature 97.4 F L Temperature Source Temporal Pulse Rate 65 Respiratory Rate 27 H Respiratory Effort Respiratory Depth Respiratory Pattern Blood Pressure 108/59 L Blood Pressure Mean 75 Pulse Ox 84 94 Oxygen Delivery Method Room Air Nasal Cannula Room Air Oxygen Flow Rate (L/min) 4 05/10/23 02:10 05/10/23 02:12 05/10/23 02:16 Temperature Temperature Source Pulse Rate 60 Respiratory Rate 24 H Respiratory Effort Short of Breath Labored Pursed Lip Respiratory Depth Shallow Respiratory Pattern Tachypnea Tachypnea Blood Pressure Blood Pressure Mean Pulse Ox Oxygen Delivery Method Nasal Cannula Nasal Cannula Oxygen Flow Rate (L/min) 4 4 Positive well developed General Appearance ED: well developed and pallor; Negative for NAD HEENT Reports dry mucous membranes HEENT Narrative: Ears normal. Nares reveal mild congestion. Posterior pharynx unremarkable. atraumatic Mouth ED: Yes dry mucous membranes Mouth: dry mucous membranes Eyes PERRL and EOMs intact bilaterally General Eye ED: Negative for pale conjunctiva or scleral icterus Neck no lymphadenopathy, supple, no meningeal signs and no JVD Resp No normal respiratory effort and No clear to auscultation bilaterally Resp Narrative: Patient does have use of accessory muscles and mild intercostal retractions. Auscultation: rales bilateral base, wheezes expiratory wheezes and throughout and diminished lung sounds Cardio regular rhythm, S1 normal heart sound, S2 normal heart sound and no murmurs Rate: tachycardic GI non-tender, non-distended and no masses Auscultation: normoactive bowel sounds Palpation: soft Back/Spine no CVA tenderness Extremity Extremity Narrative: Fingers are tobacco staining. Question of mild clubbing. There is no acral cyanosis. He is presently on oxygen at 4 L. Neuro CN's II-XII intact bilaterally Neuro Narrative: Unable to determine patient's orientation. He does move all extremities. Yoan Coma Scale: document GCS findings Spontaneous Obeys Commands Confused 14 Sensorium / Orientation: Negative for alert Skin no wounds General Skin Exam: pallor; Negative for jaundice MDM MDM MDM Narrative Medical decision making narrative: Unable to obtain history. Paperwork that accompanied him indicates he is DNR comfort care. Differential is COPD exacerbation due to viral illness versus bacterial. Will obtain chest x-ray to rule out pneumonia. CBC to assess white count differential and rule out anemia. Comprehensive metabolic panel to assessfor endorgan dysfunction. Rapid COVID, RSV and influenza since other residents are positive for influenza. History & Record Review Additional record(s) reviewed:: Prior ED visit and Prior labs Lab Data Attestation: I reviewed the patient's lab results. Lab results narrative: Patient is neutropenic and anemic. Most recent blood work is 2016. He was neutropenic at that time as well. Platelet count is low. He has pancytopenia. Electrolyte panel is remarkable for BUN 21 creatinine 1.35. Prior creatinine was 0.9. Albumin is slightly diminished at 3.1. The neutropenia could be due to a viral infection i.e. COVID. Labs: Laboratory Results - last 24 hr 05/10/23 05/10/23 01:49 02:06 WBC 3.0 L RBC 3.30 L Hgb 9.9 L Hct 31.1 L MCV 94.2 H MCH 30.0 MCHC 31.8 L RDW Std Deviation 43.1 RDW Coeff of Eyal 12.5 Plt Count 88 L MPV 10.2 Immature Gran % (Auto) 0.300 Neut % (Auto) 65.0 Lymph % (Auto) 24.7 [place] % (Auto) 9.7 Eos % (Auto) 0.0 Baso % (Auto) 0.3 Absolute Neuts (auto) 2.0 Absolute Lymphs (auto) 0.74 L Nucleated RBC % 0 Sodium 139 Potassium 4.1 Chloride 107 Carbon Dioxide 29.0 Anion Gap 3 L BUN 21 H Creatinine 1.35 H Est GFR (MDRD) Af Amer 69 Est GFR (MDRD) Non-Af 57 L BUN/Creatinine Ratio 15.6 Glucose 99 Lactic Acid 0.6 Calcium 9.2 Total Bilirubin 0.30 AST 19 ALT 18 Alkaline Phosphatase 53 Total Protein 6.2 L Albumin 3.1 L Globulin 3.1 Albumin/Globulin Ratio 1.0 Radiography Chest X-Ray - ED: 1 View and Read by ED Physician (Cardiac size is normal. There is increased interstitial markings right lower lobe. Mediastinum is normal. Osseous structures are unremarkable. There is no recent comparison. There is independently reviewed interpreted by me at 0310.) EKG Initial EKG: Attestation: I personally reviewed and interpreted this EKG as follows: Interpretation: Sinus Rhythm (Rate is 60. Parables 124 ms. Cures duration 94 ms. QT duration 422 ms. There is flipped T waves anterior leads. There is no old for comparison.) Treatment and Re-Evaluation :: Since patient is hypoxic and tachypneic will require admission. Rapid antigen was positive for type A. Tamiflu was ordered. Discharge Plan Triage Chief Complaint: Shortness of Breath ED Provider: Jose Olvera Dx/Rx/DC Orders Clinical Impression: Right lower lobe pulmonary infiltrate, Acute hypoxic respiratory failure, Type A influenza, Acute bronchospasm, History of schizophrenia Prescriptions: No Action albuterol sulfate 2.5 MG/3 ML solution for nebulization 2.5 mg inhalation Q6H PRN PRN (Reason: Sob &/Or Wheezing) calcium carbonate-vitamin D3 [Calcium 600 + D(3)] 1 EACH tablet 1 ea PO BID lorazepam 0.5 MG tablet 0.5 mg PO TID bisacodyl 10 MG suppository 10 mg RECTAL DAILY PRN PRN (Reason: Constipation) benztropine 1 MG tablet 0.5 mg PO DAILY docusate sodium [DOK] 100 MG capsule 100 mg PO DAILY divalproex [Depakote Sprinkles] 125 MG capsule, delayed rel sprinkle 500 mg PO BID aripiprazole 5 MG tablet 5 mg PO QHS Cepacol Sore Throat (dylan-men) 1 EACH lozenge 1 blaire buccal PRN PRN (Reason: Sore Throat) Dulcolax 5 mg PO PRN PRN (Reason: Constipation) acetaminophen [Tylenol] 325 MG tablet 650 mg PO Q4H PRN (Reason: Headache) loperamide 2 MG capsule 2 mg PO Q8H PRN (Reason: Diarrhea) polyethylene glycol 3350 17 GM powder in packet 17 g PO DAILY lithium carbonate 300 MG tablet extended release 300 mg PO BID haloperidol 1 MG tablet 3 mg PO TID guaifenesin 10 ML liquid 10 ml PO Q4H PRN PRN (Reason: Cough) magnesium hydroxide 30 ML suspension 30 ml PO DAILY PRN PRN (Reason: Constipation) tamsulosin [Flomax] 0.4 MG capsule 0.4 mg PO DAILY ferrous sulfate [Iron (ferrous sulfate)] 325 MG tablet 325 mg PO BID fludrocortisone 0.1 MG tablet 0.1 mg PO DAILY@0800 alum-mag hydroxide-simeth [Mag-Al Plus Extra Strength] 30 ML suspension 30 ml PO Q4H PRN PRN (Reason: Indigestion) melatonin-pyridoxine HCl (B6) 1 EACH tablet 1 ea PO QHS oxycodone-acetaminophen 1 TABLET tablet 1 - 2 tab PO Q4H PRN PRN (Reason: Pain) 7 Days Qty: 14 0RF doxycycline monohydrate 100 MG capsule 100 mg PO BID Qty: 20 0RF lorazepam [Ativan] 0.5 mg tablet 0.5 mg PO .q6hr PRN (Reason: anxiety) haloperidol lactate 5 mg/mL solution 5 mg IM Q3H PRN (Reason: agitation) Primary Care Provider: Ashley Dickey Referrals: Ashley Dickey MD [Primary Care Provider] - Disposition Disposition: Acute Care Hospital [facility] What to do if you have Problems For any increased pain, shortness of breath, bleeding, nausea or vomiting, chestpain, or any unexpected problems, contact your Primary Care Provider. Call [facility] ([phone]) or report to the closest Emergency Room. Call 911 if necessary. 05/10/23 0356 <Electronically signed by Jose Olvera MD> Cosigner Signature (if applicable): CC: Dr. Ashley Dickey MD ~ Signed [facility] Work Phone: 1(353) 531-570101-17-2024 History of Present illness Narrative* Narinder Dueñas MD - 03/19/2023 1:30 PM EST Subjective Patient ID: Nando Brito is a 62 y.o. male. HPI Patient is here for a 2 week follow up for a scrotal abscess that started draining prior to visit. He was given Levaquin and states this has not changed. . Chronic hx of gross hematuria. Pt did have a recent U/S done 05/23 which was normal... RENAL U/S on 09/21 showed apparent solid lesion on the right suspected for neoplasm however follow up CT urogram on 10/22 showed no renal mass, stone or hydro.. Normal cysto on 10/22. Some urgency and frequency. He is incontinent most of the time and wears depends daily. He is taking Flomax. .Hx of urinary retention. Most recent PSA was 0.49 (08/22) Previous PSA was 0.8 (08/21) . Review of Systems Constitutional: Negative for chills and fever. HENT: Negative. Eyes: Negative. Respiratory: Negative for cough and shortness of breath. Cardiovascular: Negative for chest pain and leg swelling. Gastrointestinal: Negative for nausea. Endocrine: Negative. Genitourinary: Negative for difficulty urinating. Negative except for documented in HPI Allergic/Immunologic: Negative. Neurological: Alert & oriented X 3 Hematological: Denies blood thinners Psychiatric/Behavioral: Negative. Objective Physical Exam Vitals and nursing note reviewed. Constitutional: General: He is not in acute distress. Appearance: Normal appearance. Pulmonary: Effort: Pulmonary effort is normal. Abdominal: Tenderness: There is no abdominal tenderness. Genitourinary: Comments: Kidneys non palpable bilaterally Bladder non palpable or tender Scrotum no mass, No hydrocele. Some midline induration. No drainage. No erythema. No purulence Epididymis- No spermatocele. Non Tender. Testicles: No mass Urethra: No discharge Penis within normal limits... No lesions Prostate - deferred Neurological: Mental Status: He is alert. Assessment/Plan Diagnoses and all orders for this visit: Scrotal abscess Urinary frequency Nocturia All available PSA values reviewed, Options discussed. Questions answered. New PSA ordered Diet changes for prostate health discussed and educational information given. Pros/Cons of prostatehealth supplements discussed. Treatment options for LUTS reviewed Flomax Rx refilled Discussed timed voiding. Discussed fluid and caffeine intake Treatment options for ED reviewed. Lifestyle change to help prevent UTIs discussed. Encouraged fluid intake. Past renal U/S and CT reviewed F/U with PSA 3 months documented in this [facility] Work Phone: 1(367) 943-348001-03-2024 History of Present illness Narrative* Narinder Dueñas MD - 03/05/2023 10:15 AM EST Subjective Patient ID: Nando Brito is a 62 y.o. male. HPI Patient is here for scrotal abscess that started draining prior to visit. It was painful but is less so now. . Chronic hx of gross hematuria. Pt did have a recent U/S done 05/23 which was normal... U/S on 09/21 showed apparent solid lesion on the right suspected for neoplasm however follow up CT urogram on 10/22 showed no renal mass, stone or hydro.. Normal cysto on 10/22. Some urgency and frequency.He is incontinent most of the time and wears depends daily. He is taking Flomax. .Hx of urinary retention. Most recent PSA was 0.49 (08/22) Previous PSA was 0.8 (08/21) . Review of Systems Constitutional: Negative for chills and fever. HENT: Negative. Eyes: Negative. Respiratory: Negative for cough and shortness of breath. Cardiovascular: Negative for chest pain and leg swelling. Gastrointestinal: Negative for nausea. Endocrine: Negative. Genitourinary: Negative for difficulty urinating. Negative except for documented in HPI Allergic/Immunologic: Negative. Neurological: Alert & oriented X 3 Hematological: Denies blood thinners Psychiatric/Behavioral: Negative. Objective Physical Exam Vitals and nursing note reviewed. Constitutional: General: He is not in acute distress. Appearance: Normal appearance. Pulmonary: Effort: Pulmonary effort is normal. Abdominal: Tenderness: There is no abdominal tenderness. Genitourinary: Comments: Kidneys non palpable bilaterally Bladder non palpable or tender Scrotum no mass, No hydrocele. Induration at base posteriorly. No drainage. No signs of [place] Epididymis- No spermatocele. Non Tender. Testicles: No mass Urethra: No discharge Penis within normal limits... No lesions. Circumcised Prostate - symmetric, no nodules. Benign Seminal Vesicals: No mass. Sphincter tone: normal Neurological: Mental Status: He is alert. Assessment/Plan Diagnoses and all orders for this visit: Scrotal abscess Nocturia Urinary incontinence, unspecified type Urinary frequency All available PSA values reviewed, Options discussed. Questions answered. New PSA ordered Diet changes for prostate health discussed and educational information given. Pros/Cons of prostatehealth supplements discussed. Treatment options for LUTS reviewed Continue Flomax Discussed timed voiding. Discussed fluid and caffeine intake Treatment options for ED reviewed. Lifestyle change to help prevent UTIs discussed. Encouraged fluid intake. Levaquin given for scrotal abcess F/U with PSA documented in this [facility] Work Phone: 1(304) 235-841803-23-2023 History of Present illness NarrativeChronic hx of gross hematuria. Pt did have a recent U/S done 05/23 which was normal... U/S on 09/21 showed apparent solid lesion on the right suspected for neoplasm however follow up CT urogram on 10/22showed no renal mass, stone or hydro.. Normal cysto on 10/22. Some urgency and frequency. He is incontinent most of the time and wears depends daily. He is taking Flomax. .Hx of urinary retention. Most recent PSA was 0.49 (08/22) Previous PSA was 0.8 (08/21) . Pt states he is having testicular pain..pt states the pain is intermittent..[id number] Work Phone: 1(299) 772-828505-03-2021 History of Present illness NarrativePatient here labs..Most recent PSA on 08/21 was 0.83....Creatinine was 1.0 on 08/21.BUN was 12 on 08/21..PVR on (07/03/20) showed 336 mL ..Patient could not void before or after this...Normal cysto on 07/03/20 for retention showed no mass, no median lobe, and some trabeculation.. Recent Renal Us done 04/26/2020 and Pelvic US done on 05/04/2020. Post Void Residual done on 05/04/2020 showing large post vo id residual of 545ml... . LUTs are chronic and mild. Having frequency and urgency. Having dysuria and hematuria.. Nocturia x1.. Caffeine does worsen LUTs.. No medications for LUTs..Frequent UTI's last one in 05/2020. [id number] Work Phone: Discharge summary Author Kirsty Rodarte [facility] May 14, 2023 4:19pm Note Date/Time May 14, 2023 3:5 7pm [facility] Medical Records Department [address] [place] [address] Transfer to [facility] MR#: [id number] Acct: [id number] Name: NANDO BRITO Rep #:[id number] : 1960 62 From: Kirsty Rodarte DO PCP: Dr. Ashley Dickey MD Status:ADM IN Certification of patient admission REQUIRED AT TIME OF ADMISSION. I CERTIFY THAT POST-HOSPITAL ECF SERVICES ARE REQUIRED TO BE GIVEN ON AN IN-PATIENT BASIS BECAUSE OF THE ABOVE NAMED PATIENT'S NEED FOR [facility] CARE ON A CONTINUING BASIS FOR THE CONDITION(S) FOR WHICH HE/SHE WAS RECEIVING IN-PATIENT HOSPITAL SERVICES PRIOR TO HIS/HER TRANSFER [facility]. 05/14/23 1602<Electronically signed by Kirsty Rodarte DO> Diet Diet Order/Speech Therapy: 05/13/23 10:45 Diet: Regular - General Food consistency:: Pureed Liquid Consistency:: Regular/Thin Type of Dietary Supplement:: Ensure Compact Is pt able to select menu?: No Diet Comments: MOIST purees, 2 liquid washes for every bite, ensure compact w/B&D Routine Orders/Code Status O2 Liters per Minute: 3 L at rest and 5 L with exertion O2 Frequency: Continuous Keep PO Greater than or Equal to (%): 89 Routine Lab Work: CBC (1 week) and BMP (1 week) Code Status: DNRCC-A (No intubation) Therapies Weight Bearing: Full weight bearing Physical Therapy: Eval and Treat Occupational Therapy: Eval and Treat Problem/Diagnosis (1) Acute hypoxic respiratory failure: Status: Acute Code(s): J96.01 - Acute respiratory failure with hypoxia (2) Type A influenza: Status: Acute Code(s): J10.1 - Influenza due to other identified influenza virus with other respiratorymanifestations (3) History of schizophrenia: Status: Acute Code(s): Z86.59 - Personal history of other mental and behavioral disorders Allergies/Procedures Done in Hospital Allergies ciprofloxacin [From Cipro] Adverse Reaction (Verified 11/12/15 19:37) Hives codeine Adverse Reaction (Verified 11/12/15 19:37) Hives Penicillins Adverse Reaction (Verified 11/12/15 19:37) Hives sulfamethoxazole [From Bactrim] Adverse Reaction (Verified 11/12/15 19:37) Hives trimethoprim [From Bactrim] Adverse Reaction (Verified 11/12/15 19:37) Hives Procedures: EKG and - (MBS/CTA chest) Type of Care/Length of Stay Estimated LOS: Convalescent Care Less Than 30 days Type of Care Needed: Intermediate Rehab Potential: Fair Prognosis: Fair Additional Orders/Day of Discharge Day of Discharge: 05/14/23 Dietary and Speech Recommendations Dietitian Recommendations/Changes: Will continue regular diet for now with consistency/texture as per [employer]; change to cardiac diet as needed as PO improves at meals. Will add ensure compact BID w/ breakfast and dinner meals for tolerance. D/C ensure if PO remains good at meals. Discharge Plan Admission Admit Date/Time: 05/10/23 04:02 Attending Provider: Kirsty Rodarte Primary Care Provider: Ashley Dickey Consulting Providers: Roxanne More; Robert Barr; Jonnathan Campuzano; Scott Blandon; Lupillo Porras; Kt Garcia; Antonia Parsons; Jose Johnson; Sanjuana Wasserman; Tomer Hawkins; Beltran Dubois; Jj Lutz; Cb Amor; Yann Ji Discharge Orders/Prescriptions Prescriptions: No Action albuterol sulfate 2.5 MG/3 ML solution for nebulization 2.5 mg inhalation Q6H PRN PRN (Reason: Sob &/Or Wheezing) calcium carbonate-vitamin D3 [Calcium 600 + D(3)] 1 EACH tablet 1 ea PO BID bisacodyl 10 MG suppository 10 mg RECTAL DAILY PRN PRN (Reason: Constipation) docusate sodium [DOK] 100 MG capsule 100 mg PO DAILY divalproex [Depakote Sprinkles] 125 MG capsule, delayed rel sprinkle 125 mg PO Q8H aripiprazole 5 MG tablet 5 mg PO QHS Cepacol Sore Throat (dylan-men) 1 EACH lozenge 1 blaire buccal PRN PRN (Reason: Sore Throat) Dulcolax 5 mg PO PRN PRN (Reason: Constipation) acetaminophen [Tylenol] 325 MG tablet 650 mg PO Q4H PRN (Reason: Headache) polyethylene glycol 3350 17 GM powder in packet 17 g PO DAILY lithium carbonate 300 MG tablet extended release 300 mg PO BID haloperidol 1 MG tablet 3 mg PO TID guaifenesin 10 ML liquid 10 ml PO Q4H PRN PRN (Reason: Cough) magnesium hydroxide 30 ML suspension 30 ml PO DAILY PRN PRN (Reason: Constipation) tamsulosin [Flomax] 0.4 MG capsule 0.4 mg PO DAILY fludrocortisone 0.1 MG tablet 0.05 mg PO DAILY@0800 alum-mag hydroxide-simeth [Mag-Al Plus Extra Strength] 30 ML suspension 30 ml PO Q4H PRN PRN (Reason: Indigestion) lorazepam [Ativan] 0.5 mg tablet 0.5 mg PO Q6H PRN (Reason: anxiety) haloperidol lactate 5 mg/mL solution 5 mg IM Q3H PRN (Reason: agitation) diphenhydramine HCl 50 mg/mL solution 50 mg IM Q6H PRN (Reason: agitation) Patient Comments: [NO ORIGINAL SIG] folic acid 400 mcg tablet 400 mcg PO DAILY hydrocortisone 10 mg tablet 10 mg PO BID hydrocortisone 5 mg tablet 5 mg PO DAILY lactulose [Enulose] 10 gram/15 mL solution 20 g PO BID levofloxacin 500 mg tablet 500 mg PO DAILY atorvastatin 40 mg tablet 40 mg PO QHS lorazepam 1 mg tablet 1 mg PO TID melatonin 3 mg capsule 6 mg PO QHS Nicotrol 10 mg cartridge 1 inh inhalation Q2H PRN (Reason: nicotine cravings) nicotine (polacrilex) 2 mg lozenge 2 mg mucous membrane Q2H PRN (Reason: nicotine cravings) paroxetine HCl 20 mg tablet 20 mg PO DAILY cholecalciferol (vitamin D3) [Vitamin D3] 50 mcg (2,000 unit) capsule 4,000 unit PO DAILY propranolol 80 mg capsule,extended release 24 hr 80 mg PO DAILY Referrals / Follow Up: Ashley Dickey MD [Primary Care Provider] - 05/14/23 1602 <Electronically signed by Kirsty Rodarte DO> Cosigner Signature (if applicable): CC: Dr. Jonnathan Campuzano MD; Dr. Roxanne More MD; Dr. Scott Blandon MD; Dr. Robert Barr MD; Dr. Lupillo Porras DO; Dr. Kt Garcia MD; Dr. Jose Johnson MD; Dr. Sanjuana Wasserman MD; Dr. Tomer Hawkins MD; Dr. Beltran Dubois MD; Dr. Jj Lutz MD; Dr. Ashley Dickey MD; Dr. Cb Amor MD; Dr. Yann Ji MD; Dr. Antonia Parsons MD ~ ADDENDUM by Dr. Kirsty Rodarte DO on 05/14/23 at 1619 Addendum 1. Patient requires ongoing speech therapy at discharge for dysphagia 2. Patient needs supervision while being fed at all times with a diet of moist pur?es, 2 liquid washes for every bite taken and utilization of straws 3. Patient needs to be upright completely while eating and remain upright 30 minutes after eating 05/14/23 1619 <Electronically signed by Kirsty Rodarte DO> cc: Dr. Jonnathan Campuzano MD; Dr. Roxanne More MD; Dr. Scott Blandon MD; Dr. Robert Barr MD; Dr. Lupillo Porras DO; Dr. Kt Garcia MD; Dr. Jose Johnson MD; Dr. Sanjuana Wasserman MD; Dr. Tomer Hawkins MD; Dr. Beltran Dubois MD; Dr. Jj Lutz MD; Dr. Ashley Dickey MD; Dr. Cb Amor MD; Dr. Yann Ji MD; Dr. Antonia Parsons MD ~* Signed [facility] Work Phone: Discharge summary Author Kirsty [facility] May 14, 2023 4:28pm Note Date/Time May 14, 2023 4:0 7pm [facility] Medical Records Department [address] [place] [id number] Discharge Summary 05/14/23 1605 MR#: [id number] Acct: [id number] Name: NANDO BRITO Rep #:[id number] : 1960 62 From: Kirsty Rodarte DO PCP: Dr. Ashley Dickey MD Status:ADM IN Location: [place] [address] Providers Date of Admission: 05/10/23 Date of Discharge: 05/14/23 Primary Care Physician: Dr. Ashley Dickey MD Consultations 05/13/23 16:03 Consult: Sack Department Supervisor / Pulmonary Medicine Routine Consulting Provider: Intensivists/Pulmonary Med Reason for Consult: hypoxia EMERGENT Consult: No MD Notified: Yes Date Notified: 05/13/23 Time Notified: 16:03 Method of Notification: Verbal Reason For Visit: HYPOXIA, COPD/ASTHMA EXAC, INFLUENZA A Diagnosis Discharge Diagnosis (1) Acute hypoxic respiratory failure: Status: Acute Code(s): J96.01 - Acute respiratory failure with hypoxia (2) Type A influenza: Status: Acute Code(s): J10.1 - Influenza due to other identified influenza virus with other respiratorymanifestations (3) History of schizophrenia: Status: Acute Code(s): Z86.59 - Personal history of other mental and behavioral disorders Medications at Discharge Home Medications Dulcolax 5 mg PO PRN PRN Constipation 05/26/17 acetaminophen 325 mg tablet (Tylenol) 650 mg PO Q4H PRN Headache 05/26/17 albuterol sulfate 2.5 mg/3 mL (0.083 %) solution for nebulization 2.5 mg inhalation Q6H PRN PRN Sob &/Or Wheezing 05/26/17 aluminum-mag hydroxide-simethicone 400 mg-400 mg-40 mg/5 mL oral susp (Mag-Al Plus Extra Strength) 30 ml PO Q4H PRN PRN Indigestion 05/26/17 aripiprazole 5 mg tablet 5 mg PO QHS blood thinner 05/26/17 benzocaine 15 mg-menthol 3.6 mg lozenges (Cepacol Sore Throat (benzocaine- menthol)) 1 blaire buccal PRN PRN Sore Throat 05/26/17 bisacodyl 10 mg rectal suppository 10 mg RECTAL DAILY PRN PRN Constipation 05/26/17 calcium carbonate 600 mg-vitamin D3 5 mcg (200 unit) tablet (Calcium 600 + D(3))1 ea PO BID supplement 05/26/17 divalproex 125 mg capsule,delayed release sprinkle (Depakote Sprinkles) 125 mg PO Q8H schizophrednia 05/26/17 docusate sodium 100 mg capsule (DOK) 100 mg PO DAILY stool softener 05/26/17 fludrocortisone 0.1 mg tablet 0.05 mg PO DAILY@0800 abn labs 05/26/17 guaifenesin 100 mg/5 mL oral liquid 10 ml PO Q4H PRN PRN Cough 05/26/17 haloperidol 1 mg tablet 3 mg PO TID anxiety 05/26/17 lithium carbonate 300 mg tablet,extended release 300 mg PO BID biopolar 05/26/17 magnesium hydroxide 400 mg/5 mL oral suspension 30 ml PO DAILY PRN PRN Constipation 05/26/17 polyethylene glycol 3350 17 gram oral powder packet 17 g PO DAILY constipation 05/26/17 tamsulosin 0.4 mg capsule (Flomax) 0.4 mg PO DAILY urinary retention 05/26/17 atorvastatin 40 mg tablet 40 mg PO QHS hyperlipidemia 05/10/23 cholecalciferol (vitamin D3) 50 mcg (2,000 unit) capsule (Vitamin D3) 4,000 unitPO DAILY vitamin 05/10/23 diphenhydramine HCl 50 mg/mL injection solution 50 mg IM Q6H PRN agitation 05/10/23 folic acid 400 mcg tablet 400 mcg PO DAILY deficiency 05/10/23 haloperidol lactate 5 mg/mL injection solution 5 mg IM Q3H PRN agitation 05/10/23 hydrocortisone 10 mg tablet 10 mg PO BID adrenal insuffienciency 05/10/23 hydrocortisone 5 mg tablet 5 mg PO DAILY adrenal insuffiencien 05/10/23 lactulose 10 gram/15 mL oral solution (Enulose) 20 g PO BID abn labs 05/10/23 lorazepam 0.5 mg tablet (Ativan) 0.5 mg PO Q6H PRN anxiety 05/10/23 lorazepam 1 mg tablet 1 mg PO TID anxiety 05/10/23 melatonin 3 mg capsule 6 mg PO QHS insom 05/10/23 nicotine (polacrilex) 2 mg buccal lozenge 2 mg mucous membrane Q2H PRN nicotine cravings 05/10/23 nicotine 10 mg inhalation cartridge (Nicotrol) 1 inh inhalation Q2H PRN nicotinecravings 05/10/23 paroxetine HCl 20 mg tablet 20 mg PO DAILY depression 05/10/23 levofloxacin 750 mg tablet 750 mg PO DAILY #3 tabs 05/14/23 prednisone 10 mg tablet 10 mg PO DAILY #30 tabs 05/14/23 Hospital Course Operations None Procedures EKG, Modified Barium Swallow and - (Chest x-ray/CTA of the chest) Summary of Care Provided Minutes Spent on Discharge: 41 Hospital Course: Patient is a 62-year-old white male with a history of anoxic injury and dementiawho is a resident at a local [facility] who presented to the emergency department at [facility] on 05/10/2023 with acute onset of fever, dyspnea, tachypnea, and hypoxia over the last 24 hours prior to presentation. At the nursing facility they noted accessory muscle use and he had a Tmax of 100.9. Chest x-ray is unremarkable. He was also screened for influenza, COVID, and RSVall of which were unremarkable. In the emergency department he was alert and await and noted to be in mild respiratory distress but does not verbally communicate at baseline. Vital signs on presentation were relatively stable other than his respiratory rate was 27 and he was 84% on room air. He was placed on nasal cannula at 4 L which improved his respiratory status to 94%. CBC showed neutropenia a chronic stable hemoglobin and thrombocytopenia which appears to be chronic as well. Patient was lymphopenic on presentation. On presentation his serum creatinine and BUN were slightly elevated at 21 and 1.35. Lactic acid was unremarkable. Blood cultures were obtained another rapid COVID, flu, RSV panel was performed and this time was noted to be positive for influenza A. Imaging was also concerning for opacities in the lower lobes bilaterally that was suggestive of atelectasis, infection, or aspiration. He was admitted to the medical floor and placed on antibiotics as well as Tamiflu. He was also treated with an increased dose of fludrocortisone due to his historyof adrenal insufficiency. Tamiflu was not utilized a but discontinued as it cancause bradycardia which she did developed also, a superimposed bacterial pneumonia was suspected and he was placed on IV antibiotics. At discharge, we transition to Levaquin to complete a 7-day course. His oxygenation remained an issue longer than we initially felt so we checked a CTA of the chest which did not show any PE but did show patchy bilateral infiltrates in the bases and evidence of COPD. Speech therapy also saw the patient and felt like he was aspirating and diagnosed him with severe oral dysphagia and mild pharyngeal dysphagia on a modified barium swallow that was done on 05/13/2023. He will needcontinued speech therapy at discharge and they recommended a diet for pur?e withthin liquid diet and compensatory strategies as noted in the discharge paperwork. Repeat modified barium swallow should be performed after ongoing speech therapy after discharge. He also had some intermittent bradycardia. Tamiflu was noted to cause bradycardia so this was discontinued and he was also on a beta-kehinde which was discontinued at discharge. He will need ongoing blood pressure monitoring to see if a new antihypertensive will need to be initiated however his blood pressure was stable here while his beta-kehinde was held. His mental status returned to baseline and we were able to wean him to 2 to 3 L of oxygen at rest and 5 L with exertion. We suspect his ongoing hypoxia was related to aspiration, pneumonia, influenza, and pretty significant atelectasis. It was difficult due to his baseline mental status to get him to participate with incentive spirometry and Acapella during his hospital course which led to ongoing persistent atelectasis compromising his oxygenation. We were finally able to stabilize his oxygenation at 2 to 3 L at rest on 05/14/2023. Pulmonary medicine saw him and recommended continuing what we were doing and felt that he was okay for discharge as long as his oxygen saturations remained stable throughout the day which they have. He was discharged in stable condition back to his facility on 05/14/2023. He should follow-up with his primary care physician within the next 1 to 2 weeks. Discharge diagnoses: Acute hypoxic respiratory failure Influenza A Aspiration pneumonia Dysphagia Bradycardia Toxic/metabolic encephalopathy-resolved History of adrenal insufficiency CKD stage II Dementia Schizophrenia Schizoaffective disorder Anxiety and depression BPH with obstruction Hypertension History of vitamin D deficiency Chronic pancytopenia History of IBS with constipation Physical Exam Const alert, no apparent distress and average body habitus Constitutional Narrative: Middle-aged, white male, sitting up in bed, nursing at bedside, patient much more interactive today, follows commands, speech is fairly and unintelligible appears as if he is feeling much better, appears comfortable and nontoxic General Appearance: cooperative, comfortable, well kempt and well developed HEENT normocephalic, head/scalp atraumatic and moist oral mucous membranes Eyes PERRL, EOMs intact bilaterally and conjunctivae normal Neck no lymphadenopathy and supple Neck Narrative: Trachea midline, no thyroid enlargement Resp normal respiratory effort, no retractions, no use of accessory muscles and clearto auscultation bilaterally Resp Narrative: Diminished but clear Auscultation: rhonchi; Negative for crackles or wheezes Cardio regular rate, regular rhythm, S1 normal heart sound, S2 normal heart sound, no murmurs, no rub, no gallops and no clicks GI normal to inspection, nondistended, normoactive bowel sounds, soft to palpation and non-tender Extremity no clubbing, cyanosis or edema Extremity Narrative: Pedal pulses are 2+ Skin no rashes or lesions noted, no wounds, skin turgor normal and no jaundice Neuro moves all extremities and no focal motor deficits Neuro Narrative: Speech is unintelligible but patient follows commands consistently today Sensorium / Orientation: awake and alert Psych Psych Narrative: Calm currently Weight / BMI Weight Weight: 73.6 kg Body Mass Index (BMI) 24.0 ABG / Lab / Microbiology Data 05/14/23 06:30 05/14/23 06:30 Laboratory: Laboratory Results - last 24 hr 05/13/23 16:40: Ammonia 21.0 05/14/23 06:30: WBC 3.6 L, RBC 3.11 L, Hgb 9.4 L, Hct 28.8 L, MCV 92.6, MCH 30.2, MCHC 32.6, RDW Std Deviation 41.0, RDW Coeff of Eyal 12.1, Plt Count 92 L, MPV 10.6, Immature Gran % (Auto) 0.300, Neut % (Auto) 68.7, Lymph % (Auto) 25.7,[place] % (Auto) 5.3, Eos % (Auto) 0.0, Baso % (Auto) 0.0, Absolute Neuts (auto) 2.5, Absolute Lymphs (auto) 0.92, Nucleated RBC % 0, Differential Comment , Platelet Estimate SLT DEC, Sodium 144, Potassium 4.2, Chloride 112 H, Carbon Dioxide 27.0, Anion Gap 5, BUN 28 H, Creatinine 1.13, Estim Creat Clear Calc 67.78, Est GFR (MDRD) Af Amer 84, Est GFR (MDRD) Non-Af 70, BUN/Creatinine Ratio24.8 H, Glucose 106, Calcium 8.4 L, Phosphorus 3.4, Magnesium 2.7 H, Total Bilirubin 0.30, AST 18, ALT 13 L, Alkaline Phosphatase 48, Total Protein 5.1 L, Albumin 2.4 L, Globulin 2.7, Albumin/Globulin Ratio 0.9 Microbiology: Microbiology 05/10/23 01:49 Mucosa - Nose SARS-CoV-2, Influenza & RSV (PCR) - Final Influenzae A ABG: ABG 05/13/23 13:20 Specimen Type ART Sample Site L Brach pH 7.43 Bicarbonate Actual 23.9 Total CO2 25 Base Excess 0 O2 Saturation 90 L O2 % 4.0 ABG pCO2 36.0 ABG pO2 56 L O2 Delivery Device Not entered Vent Mode Not entered Meaningful Use Info Meaningful Use Diagnoses (Choose all that apply): None applicable Discharge Plan Admission Admit Date/Time: 05/10/23 04:02 Primary Reason for Your Visit: Shortness of breath/fever/hypoxia Attending Provider: Kirsty Rodarte Primary Care Provider: Ashley Dickey Consulting Providers: Roxanne More; Robert Barr; Jonnathan Campuzano; Scott Blandon; Lupillo Porras; Kt Garcia; Antonia Parsons; Jose Johnson; Sanjuana Wasserman; Tomer Hawkins; Beltran Dubois; Jj Lutz; Cb Amor; Yann Ji Instructions Additional Instructions / Restrictions: 1. Patient requires ongoing speech therapy at discharge for dysphagia 2. Patient needs supervision while being fed at all times with a diet of moist pur?es, 2 liquid washes for every bite taken and utilization of straws 3. Patient needs to be upright completely while eating and remain upright 30 minutes after eating Discharge Orders/Prescriptions Prescriptions: New levofloxacin 750 mg tablet 750 mg PO DAILY Qty: 3 0RF prednisone 10 mg tablet 10 mg PO DAILY Qty: 30 0RF Rx Instructions: 4 tablets x 3 days, 3 tablets x 3 days, 2 tablets x 3 days, 1 tablet x 3 days Continued albuterol sulfate 2.5 MG/3 ML solution for nebulization 2.5 mg inhalation Q6H PRN PRN (Reason: Sob &/Or Wheezing) calcium carbonate-vitamin D3 [Calcium 600 + D(3)] 1 EACH tablet 1 ea PO BID bisacodyl 10 MG suppository 10 mg RECTAL DAILY PRN PRN (Reason: Constipation) docusate sodium [DOK] 100 MG capsule 100 mg PO DAILY divalproex [Depakote Sprinkles] 125 MG capsule, delayed rel sprinkle 125 mg PO Q8H aripiprazole 5 MG tablet 5 mg PO QHS Cepacol Sore Throat (dylan-men) 1 EACH lozenge 1 blaire buccal PRN PRN (Reason: Sore Throat) Dulcolax 5 mg PO PRN PRN (Reason: Constipation) acetaminophen [Tylenol] 325 MG tablet 650 mg PO Q4H PRN (Reason: Headache) polyethylene glycol 3350 17 GM powder in packet 17 g PO DAILY lithium carbonate 300 MG tablet extended release 300 mg PO BID haloperidol 1 MG tablet 3 mg PO TID guaifenesin 10 ML liquid 10 ml PO Q4H PRN PRN (Reason: Cough) magnesium hydroxide 30 ML suspension 30 ml PO DAILY PRN PRN (Reason: Constipation) tamsulosin [Flomax] 0.4 MG capsule 0.4 mg PO DAILY fludrocortisone 0.1 MG tablet 0.05 mg PO DAILY@0800 alum-mag hydroxide-simeth [Mag-Al Plus Extra Strength] 30 ML suspension 30 ml PO Q4H PRN PRN (Reason: Indigestion) lorazepam [Ativan] 0.5 mg tablet 0.5 mg PO Q6H PRN (Reason: anxiety) haloperidol lactate 5 mg/mL solution 5 mg IM Q3H PRN (Reason: agitation) diphenhydramine HCl 50 mg/mL solution 50 mg IM Q6H PRN (Reason: agitation) Patient Comments: [NO ORIGINAL SIG] folic acid 400 mcg tablet 400 mcg PO DAILY hydrocortisone 10 mg tablet 10 mg PO BID hydrocortisone 5 mg tablet 5 mg PO DAILY lactulose [Enulose] 10 gram/15 mL solution 20 g PO BID atorvastatin 40 mg tablet 40 mg PO QHS lorazepam 1 mg tablet 1 mg PO TID melatonin 3 mg capsule 6 mg PO QHS Nicotrol 10 mg cartridge 1 inh inhalation Q2H PRN (Reason: nicotine cravings) nicotine (polacrilex) 2 mg lozenge 2 mg mucous membrane Q2H PRN (Reason: nicotine cravings) paroxetine HCl 20 mg tablet 20 mg PO DAILY cholecalciferol (vitamin D3) [Vitamin D3] 50 mcg (2,000 unit) capsule 4,000 unit PO DAILY Discontinued levofloxacin 500 mg tablet 500 mg PO DAILY propranolol 80 mg capsule,extended release 24 hr 80 mg PO DAILY Referrals / Follow Up: Ashley Dickey MD [Primary Care Provider] - Within 2 Weeks Disposition Disposition (needs filled in before D/C Order can be placed): NonSkilled NH/Intermed Care Charges/Coding Visit Charges Inpatient E&M: 61367 SNF Disch >30 Min 05/14/23 1628 <Electronically signed by Kirsty Rodarte DO> Cosigner Signature (if applicable): CC: Dr. Kirsty Rodarte DO; Dr. Ashley Dickey MD~ Signed [facility] Work Phone: Evaluation noteNo assessment information available [facility] Work Phone: Evaluation note* Diagnosis Scrotal abscess- Primary Other inflammatory disorder of male genital organs Nocturia Urinary incontinence, unspecified type Urinary frequency documented in this encounter [facility] Work Phone: Evaluation note* Diagnosis Scrotal abscess Other inflammatory disorder of male genital organs Urinary frequency Nocturia documented in this encounter [facility] Work Phone: Evaluation note* Diagnosis Onset Date Resolution Status Acute bronchospasm acute Acute hypoxic respiratory failure acute History of schizophrenia acu te Right lower lobe pulmonary infiltrate acute Type A influenza acute [facility] Work Phone: Evaluation note* Diagnosis Onset Date Resolution Status Acute bronchospasm acute Acute hypoxic respiratory failure acute Bradycardia acute History of schizophrenia acu te Right lower lobe pulmonary infiltrate acute Toxic metabolic encephalopathy acute Type A influenza acute [facility] Work Phone: Evaluation note* Diagnosis Scrotal abscess- Primary Other inflammatory disorder of male genital organs Urinary frequency Nocturia Urinary incontinence, unspecified type documented in this encounter [facility] Work Phone: Evaluation note* Diagnosis Gross hematuria Nocturia Urinary incontinence, unspecified type documented in this encounter [facility] Work Phone: Evaluation note* Diagnosis Urinary retention- Primary Unspecified retention of urine documented in this encounter [facility] Work Phone: History of Present illness NarrativePatient here for gross hematuria. Patients caregiver states he seen a moderate amount of blood for a few days. He was placed on an antibx and this cleared sx. Some urgency and frequency. He is incontinent most of the time and wears depends daily. He is taking Flomax. .Hx of urinary retention. Most recent PSA was 0.49 (08/22) Previous PSA was 0.8 (08/21) [id number] Work Phone: Summary Purpose Family History No Family History Records FoundUnknown Family Member Name Dates Details No pertinent family history: Mother, Father(V49.89, Z78.9) Status:Active Unknown Family Member Name Dates Details No pertinent family history: Mother, Father(V49.89, Z78.9) Status:Active Unknown Family Member Name Dates Details No pertinent family history: Mother, Father(V49.89, Z78.9) Status:Active Unknown Family Member Name Dates Details No pertinent family history: Mother, Father(V49.89, Z78.9) Status:Active Unknown Family Member Name Dates Details No pertinent family history: Mother, Father(V49.89, Z78.9) Status:Active Unknown Family Member Name Dates Details No pertinent family history: Mother, Father(V49.89, Z78.9) Status:Active Advance Directives No Advanced Directives Records Found Advance Directive Response Recorded Date/ Time Living Will No May 26, 2017 8:51am Power of Bookkeeping Clerks Supervisor Yes May 26 8:51am Advance Directive Response Recorded Date/ Time Name of Medical Power of Bookkeeping Clerks Supervisor pt doesnt know May 10, 2023 5:08am Living Will Yes May 10, 2023 5:08am Power of Bookkeeping Clerks Supervisor Yes May 09 5:08am Advance Directive Response Recorded Date/ Time Name of Medical Power of Bookkeeping Clerks Supervisor pt doesnt know May 10, 2023 6:08am Living Will Yes May 10, 2023 6:08am Power of Bookkeeping Clerks Supervisor Yes May 09 6:08am Chief Complaint labsyearly follow up with PSAGross Hematuria6 MONTH F/U Chief Complaint and Reason for Visit Chief Complaint LAB WORK Chief Complaint sob HYPOXIA, COPD/ASTHMA EXAC, INFLUENZA A Reason for Visit Acute bronchospasm Acute hypoxic respiratory failure History of schizophrenia Right lower lobe pulmonary infiltrate Type A influenza Chief Complaint sob HYPOXIA, COPD/ASTHMA EXAC, INFLUENZA A HYPOXIA, COPD/ASTHMA EXAC, INFLUENZA A HYPOXIA, COPD/ASTHMA EXAC, INFLUENZA A HYPOXIA, COPD/ASTHMA EXAC, INFLUENZA A HYPOXIA, COPD/ASTHMA EXAC, INFLUENZA A HYPOXIA, COPD/ASTHMA EXAC, INFLUENZA A Reason for Visit Acute bronchospasm Acute hypoxic respiratory failure Bradycardia History of schizophrenia Right lower lobe pulmonary infiltrate Toxic metabolic encephalopathy Type A influenza Additional Source Comments (unrecognized sect ion and content) No Status Records FoundNo Status Records FoundNo Status Records FoundNo Status Records FoundNo Status Records FoundNo Status Records FoundNo Status Records Found INFORMATION SOURCE (unrecogn ized section and content) DATE CREATED AUTHOR 08/25/2017 [facility] DATE CREATED AUTHOR 'S ORGANIZ ATION 10/30/2021 [facility] DATE CREATED AUTHOR AUTHOR'S ORGANIZ ATION 07/05/2022 [facility] DATE CREATED AUTHOR AUTHOR'S ORGANIZ ATION 07/05/2022 [facility] DATE CREATED AUTHOR AUTHOR'S ORGANIZ ATION 05/22/2023 [facility] DATE CREATED AUTHOR AUTHOR'S ORGANIZ ATION 03/31/2024 [facility] DATE CREATED AUTHOR AUTHOR'S ORGANIZ ATION 05/15/2024 [facility] Ambulatory Goals (unrecognized section and content) Goals may be documented in a n alternate sectionGoals may be documented in an alternate sectionGoals may be documented in an alternate section Reason for Visit (unrecogniz ed section and content) Reason Comments Testicular Mass Reason Comments 2 week Reason Comments 3 month with psa Patient accompanied by caregiver, Pamella. Reason Comments Blood in Urine Reason Comments CYSTOSCOPY Specialty Diagnoses / Procedures Referred By Jacques t Referred To Contact Urology Diagnoses Gross hematuria Procedures [place] CYSTOURETHROSCOPY [facility] [address] [facility] [address] [place] [address] Phone: tel: fax: Narinder Dueñas MD [address] [place] [address] Phone: tel: fax: Referral ID Status Reason Start Date Expiration Date V isits Requested Visits Authorized [id number] Authorized 04/06/2024 04/06/2025 1 1 Care Teams (unrecognized sec tion and content) Director Power Relationship Specialty Start Date End Date Ashley Dickey MD [address] [place] [address] PCP - General 03/03/99 Director Power Relationship Specialty Start Date End Date Ashley Dickey MD [address] [employer] [address] [place] [address] PCP - General 03/03/99 Team Status: Active Member Role Status Dates Dr. Ashley Dickey MD Family Provider Active Dr. Ashley Dickey MD Primary Care Provider Active Team Status: Active Member Role Status Dates Dr. Ashley Dickey MD Primary Care Provider Active Dr. Jose Olvera MD Emergency Provider Active Dr. Roxanne More MD Attending Provider Active Team Status: Active Member Role Status Dates Dr. Ashley Dickey MD Primary Care Provider Active Dr. Jose Olvera MD Emergency Provider Active Dr. Roxanne More MD Admit Provider, Attending Prov ider Active Team Status: Active Member Role Status Dates Dr. Ashley Dickey MD Primary Care Provider Active Dr. Jose Olvera MD Emergency Provider Active Dr. Roxanne More MD Admit Provider, Other Provider Active Dr. Robert Barr MD Attending Provider, Other Provid er Active Team Status: Active Member Role Status Dates Dr. Ashley Dickey MD Primary Care Provider Active Dr. Jose Olvera MD Emergency Provider Active Dr. Roxanne More MD Admit Provider, Other Provider Active Dr. Kirsty Rodarte DO Attending Provider, Other Provide r Active Dr. Robert Barr MD Other Provider Active Team Status: Active Member Role Status Dates Dr. Ashley Dickey MD Primary Care Provider Active Dr. Jose Olvera MD Emergency Provider Active Dr. Roxanne More MD Admit Provider, Other Provider Active Dr. Kirsty Rodarte DO Attending Provider, Other Provide r Active Dr. Robert Barr MD Other Provider Active Dr. Jonnathan Campuzano MD Other Provider Active Dr. Scott Blandon MD Other Provider Active Dr. Lupillo Porras DO Other Provider Active Dr. Kt Garcia MD Other Provider Active Dr. Antonia Parsons MD Other Provider Active Dr. Jose Johnson MD Other Provider Active Dr. Sanjuana Wasserman MD Other Provider Active Dr. Tomer Hawkins MD Other Provider Active Dr. Beltran Dubois MD Other Provider Active Dr. Jj Lutz MD Other Provider Active Dr. Cb Amor MD Other Provider Active Dr. Yann Ji MD Other Provider Active Team Status: Active Member Role Status Dates Dr. Ashley Dickey MD Primary Care Provider Active Dr. Jose Olvera MD Emergency Provider Active Dr. Roxanne More MD Admit Provider, Other Provider Active Dr. Kirsty Rodarte , Other Provider Active Dr. Robert Barr MD Other Provider Active Dr. Jonnathan Campuzano MD Other Provider Active Dr. Scott Blandon MD Attending Provider, Other Provid er Active Dr. Lupillo Porras , DO Other Provider Active Dr. Kt Garcia MD Other Provider Active Dr. Antonia Parsons MD Other Provider Active Dr. Jose Johnson MD Other Provider Active Dr. Sanjuana Wasserman MD Other Provider Active Dr. Tomer Hawkins MD Other Provider Active Dr. Beltran Dubois MD Other Provider Active Dr. Jj Lutz MD Other Provider Active Dr. Cb Amor MD Other Provider Active Dr. Yann Ji MD Other Provider Active Team Status: Inactive Member Role Status Dates Dr. Ashley Dickey MD Primary Care Provider Active Dr. Jose Olvera MD Emergency Provider Active Dr. Roxanne More MD Admit Provider, Other Provider Active Dr. Kirsty Rodarte DO Attending Provider Active Dr. Robert Barr MD Other Provider Active Dr. Jonnathan Campuzano MD Other Provider Active Dr. Scott Blandon MD Other Provider Active Dr. Lupillo Porras , Other Provider Active Dr. Kt Garcia MD Other Provider Active Dr. Antonia Parsons MD Other Provider Active Dr. Jose Johnson MD Other Provider Active Dr. Sanjuana Wasserman MD Other Provider Active Dr. Tomer Hawkins MD Other Provider Active Dr. Beltran Dubois MD Other Provider Active Dr. Jj Lutz MD Other Provider Active Dr. Cb Amor MD Other Provider Active Dr. Yann Ji MD Other Provider Active Director Power Relationship Specialty Start Date End Date Ashley Dickey MD [address] [place] [address] [address] [place] [address] PCP - General 03/03/99 Director Power Relationship Specialty Start Date End Date Ashley Dickey MD [address] [place] [address] [address] [place] [address] PCP - General 03/03/99 Director Power Relationship Specialty Start Date End Date Ashley Dickey MD [address] [facility] [address] [place] [id number] PCP - General 03/03/99 FOR RECORDS PERTAINING TO PATIENTS WHO ARE OR HAVE BEEN ENROLLED IN A CHEMICAL DEPENDENCY/SUBSTANCEABUSE PROGRAM, SOME INFORMATION MAY BE OMITTED. This clinical summary was aggregated from multiple sources. Caution should be exercised in using it in the provision of clinical care. This summary normalizes information from multiple sources, and as a consequence, information in this document may materially change the coding, format and clinical context of patient data. In addition, data may be omitted in some cases. CLINICAL DECISIONS SHOULD BE BASED ON THE PRIMARY CLINICAL RECORDS. [facility]. provides no warranty or guarantee of the accuracy or completeness of information in this document.
[2024-08-19 01:40] LABS: Alcohol, Blood (Medical)-Serum < 10.1 mg/dL (<=10.0); Valproic Acid (Depakene) Level 17 ug/mL (50-100)
[2024-08-19] MEDS: Ondansetron 4 MG/2 ML Vial IV (01:47)
[2024-08-19] MEDS: 0.9% Normal Saline (1000mL) 1,000 ML 150 ML IV ×2 (01:47→09:40)
[2024-08-19 01:53] LABS: Lithium 0.82 mmol/L (0.60-1.20)
[2024-08-19 02:08] LABS: Vitamin B12 620 pg/mL (180-914)
[2024-08-19] MEDS: Vancomycin HCl 1,750 MG in 0.9% Normal Saline (500mL Bag) 500 ML 250 MG IV (02:08)
[2024-08-19] MEDS: Hydrocortisone Sod Succinate 100 MG/2 ML Vial 50 MG IV ×3 (02:09→21:29)
--- NOTE | 2024-08-19 02:18 | PCM.RX.CS ---
Consult Antibiotic Management Pharmacy has been consulted to manage selected antibiotic: Vancomycin Type of Intervention Type of Consult: New start Suspected Infection Suspected Infection: Sepsis Labs Labs: Sodium 139 mmol/L (133-145) 08/18/24 18:59 Potassium 4.1 mmol/L (3.3-5.1) 08/18/24 18:59 Chloride 107 mmol/L (98-108) 08/18/24 18:59 Carbon Dioxide 25.1 mmol/L (21.0-32.0) 08/18/24 18:59 Anion Gap 8 (5-15) 08/18/24 18:59 BUN 22 mg/dL (4-19) H 08/18/24 18:59 Creatinine 1.19 mg/dL (0.70-1.20) 08/18/24 18:59 Est GFR (MDRD) Non-Af 69 (>60) 08/18/24 18:59 BUN/Creatinine Ratio 18.2 RATIO (10-20) 08/18/24 18:59 Glucose 137 mg/dL (70-99) H 08/18/24 18:59 Dosing Weight Weight used for dosin.5 kg Estimated Creatinine Clearance Estimated Creatinine Clearance: 62 Goal Trough Goal Trough: 15-20 mcg/mL Pharmacy Plan for Drug Dosing Pharmacy Plan for Drug Dosing: Pharmacy Service will continue to monitor and adjust dosing as required. Follow-Up Labs Follow-Up Labs: Trough: Vancomycin Date/Time Labs Ordered Labs to be done on [date and time ordered]: 08/20/24 @1330
--- NOTE | 2024-08-19 02:35 | VDLE_ITS ---
Reason For Study Reason For Study: ELEVATED D-DIMER RIGHT LEFT GSV is normal. GSV is normal. CFV is compressible, spontaneous, phasic, competent CFV is compressible, spontaneous, phasic, competent, and demonstrates normal augmentation. and demonstrates normal augmentation. FV is compressible, spontaneous, phasic, competent FV is compressible, spontaneous, phasic, competent and demonstrates normal augmentation. and demonstrates normal augmentation. POP V is compressible, spontaneous, phasic, competent POP V is compressible, spontaneous, phasic, competent and demonstrates normal augmentation. and demonstrates normal augmentation. T/P Trunk is compressible. T/P Trunk is compressible. Procedure This is a venous duplex using B-mode, color flow and spectral Doppler. Exam performed portable in ICU/CCU. The study was technically difficult. PT was unable to cooperate with exam, combative at times due to confusion. PT's RN assisted with exam by holding legs for me. Unable to image below the knee. A preliminary report was called and/or faxed to ICU @ 10:45 am. VL/Venous Duplex US - Roque Extrem Interpretation Summary Deep veins of the lower extremities are bilaterally patent and compressible seg mentally. There is no evidence of deep vein thrombosis on either side. Valvular competence appears intact within the p roximal deep venous systems bilaterally. The great saphenous veins appear bilaterally patent and compressible segmentall y. Veins were not imaged below the knee due to patient combativeness and lack of cooperation. Ordering Physician: Robert Huizar Referring Physician: Mani Balderas Performed By: Naty Parmar, [place], RVT
[2024-08-19 04:33] LABS: Amphetamine Urine NEGATIVE (<1000 ng/mL); Barbiturate Urine NEGATIVE (< 200 ng/mL); Benzodiazepine Urine PRESUMPTIVE POSITIVE (< 200 ng/mL); Buprenorphine Urine NEGATIVE (< 200 ng/mL); Cocaine Urine NEGATIVE (< 300 ng/mL); Fentanyl, Urine NEGATIVE; Methadone Urine NEGATIVE (< 300 ng/mL); Opiates Urine NEGATIVE (< 300 ng/mL); Oxycodone, Urine NEGATIVE (< 100 ng/mL); PCP Urine NEGATIVE (< 25 ng/mL); THC Urine NEGATIVE (< 50 ng/mL)
[2024-08-19 06:29] LABS: Hemoglobin A1c 5.2 % (<=5.6)
--- NOTE | 2024-08-19 06:46 | EX.PCM.CONCC ---
Assessment & Plan Assessment/Plan (1) Sepsis: QUALIFIERS: Sepsis type: sepsis due to unspecified organism Sepsis acute organ dysfunction status: with acute organ dysfunction Severe sepsis acute organ dysfunction type: encephalopathy Severe sepsis shock status: with septic shock Qualified Code(s): A41.9 - Sepsis, unspecified organism; R65.21 - Severe sepsis with septic shock; G93.41 - Metabolic encephalopathy PLAN: Plan RECOMMENDATIONS: 1. Continue empiric antimicrobials, pending culture results. 2. Continue stress dose steroids as ordered. 3. The patient should remain n.p.o., pending improvement in mental status. 4. Tentative plans for orthopedic surgery intervention tomorrow. 5. Lovenox for DVT prophylaxis. IMPRESSIONS: 1. Sepsis Clinical concern for underlying UTI as precipitating etiology for the patient's hypotension and altered mental status. The patient did receive supplemental IV fluid hydration and is currently without need for vasopressor support. Continue antimicrobials, pending culture results. 2. Encephalopathy Most likely metabolic in etiology in the setting of #1. CT head was unremarkable. The patient does have a known history of schizoaffective disorder along with underlying dementia. 3. Left intertrochanteric fracture Orthopedic surgery planning for surgical intervention tomorrow. 4. Known history of adrenal insufficiency Given the patient's presenting symptoms, agree with continuing stress dose steroids as ordered. 5. History of COPD/seizure disorder/chronic kidney disease/BPH/hypertension Complicates care, management, recovery and prognosis. Continue Keppra as ordered. Physical therapy to evaluate the patient once medically stabilized. This note was generated with [employer] dictation software. It may contain incorrect words, spelling, and punctuation that were not noted in checking the note before signing. HPI Consult Data Date of Consult: 08/19/24 HPI Narrative Reason for Consultation: Sepsis HPI Narrative: The patient is a 63-year-old male, with a history as outlined below, who presented to the emergency department on August 18 with altered mental status. The patient has a known history of COPD, underlying seizure disorder, schizophrenia, dementia, history of adrenal insufficiency, chronic kidney disease, BPH and hypertension. History pertinent to the patient's hospitalization was obtained primarily via chart review, the patient is a poor historian and not able to provide any additional details. On presentation to the emergency department, the patient was documented to be afebrile with a blood pressure of 84/41 mmHg. Laboratory evaluation revealed a normal white blood cell count. D-dimer was elevated at 9.09. ABG was notable for a pH of 7.42 with a pCO2 of 41 and PO2 of 68. Chemistry profile was unremarkable. Lactate was within normal limits. Urine analysis was positive for leukocyte esterase. Toxicology screen was positive for benzodiazepines. CT abdomen/pelvis demonstrated a acute displaced left intertrochanteric fracture along with diffuse thickening of the bladder with concern for chronic bladder obstruction versus cystitis. CT head was unremarkable. CTA chest showed no evidence for pulmonary embolism but did demonstrate bilateral emphysematous changes and atelectasis in the left lower lobe. The patient was ordered to receive supplemental IV fluids and was initiated on antimicrobials along with stress dose steroids. The patient was admitted to the medical intensive care unit for further management. This morning, the patient remains clinically stable. Although he transiently required Levophed support last night, the patient has been weaned off of vasopressors. The patient was evaluated by orthopedic surgery, who has tentative plans to proceed with surgical correction of his fracture tomorrow. [facility] Medical History (Updated 08/19/24 @ 10:[address] Jose Olvera MD) History of schizophrenia Bradycardia Asthma GERD (gastroesophageal reflux disease) History of anoxic brain injury Adrenal insufficiency COPD (chronic obstructive pulmonary disease) Dysphagia BPH (benign prostatic hyperplasia) Polyarthropathy IBS (irritable bowel syndrome) Schizoaffective disorder Schizophrenia Mood disorder Anxiety and depression Chronic anemia HLD (hyperlipidemia) HTN (hypertension) Seizure disorder Dementia Hydrocele Home Medications ?Medication ?Instructions ?Recorded ?Last Taken ?Type acetaminophen 325 mg tablet 650 mg PO Q4H PRN Headache 05/26/17 Unknown History (Tylenol) albuterol sulfate 2.5 mg/3 mL 2.5 mg inhalation Q6H PRN PRN Sob 05/26/17 Unknown History (0.083 %) solution for nebulization &/Or Wheezing aluminum-mag hydroxide-simethicone 30 ml PO Q4H PRN PRN Indigestion 05/26/17 Unknown History 400 mg-400 mg-40 mg/5 mL oral susp (Mag-Al Plus Extra Strength) aripiprazole 5 mg tablet 5 mg PO QHS blood thinner 05/26/17 06/05/17 20:45 History 1 benzocaine 15 mg-menthol 3.6 mg 1 blaire buccal PRN PRN Sore Throat 05/26/17 Unknown History lozenges (Cepacol Sore Throat (benzocaine-menthol)) bisacodyl 10 mg rectal suppository 10 mg RECTAL DAILY PRN PRN 05/26/17 Unknown History Constipation divalproex 125 mg capsule,delayed 125 mg PO Q8H schizophrednia 05/26/17 06/05/17 20:45 History release sprinkle (Depakote 1 Sprinkles) fludrocortisone 0.1 mg tablet 0.05 mg PO DAILY@0800 abn labs 05/26/17 Unknown History guaifenesin 100 mg/5 mL oral liquid 10 ml PO Q4H PRN PRN Cough 05/26/17 Unknown History haloperidol 1 mg tablet 1 mg PO TID anxiety 05/26/17 06/05/17 20:45 History 1 lithium carbonate 300 mg 300 mg PO BID biopolar 05/26/17 06/05/17 20:45 History tablet,extended release 1 magnesium hydroxide 400 mg/5 mL 30 ml PO DAILY PRN PRN Constipation 05/26/17 Unknown History oral suspension polyethylene glycol 3350 17 gram 17 g PO DAILY constipation 05/26/17 Unknown History oral powder packet tamsulosin 0.4 mg capsule (Flomax) 0.4 mg PO DAILY urinary retention 05/26/17 Unknown History atorvastatin 40 mg tablet 40 mg PO QHS hyperlipidemia 05/10/23 Unknown History diphenhydramine HCl 50 mg/mL 50 mg IM Q6H PRN agitation 05/10/23 Unknown History injection solution folic acid 400 mcg tablet 400 mcg PO DAILY deficiency 05/10/23 Unknown History haloperidol lactate 5 mg/mL 5 mg IM Q3H PRN agitation 05/10/23 Unknown History injection solution hydrocortisone 10 mg tablet 10 mg PO BID adrenal 05/10/23 Unknown History insuffienciency hydrocortisone 5 mg tablet 5 mg PO DAILY adrenal insuffiencien 05/10/23 Unknown History lactulose 10 gram/15 mL oral 20 g PO BID abn labs 05/10/23 Unknown History solution (Enulose) lorazepam 0.5 mg tablet (Ativan) 0.5 mg PO Q6H PRN anxiety 05/10/23 Unknown History lorazepam 1 mg tablet 1 mg PO TID anxiety 05/10/23 Unknown History melatonin 3 mg capsule 6 mg PO QHS insom 05/10/23 Unknown History nicotine (polacrilex) 2 mg buccal 2 mg mucous membrane Q2H PRN 05/10/23 Unknown History lozenge nicotine cravings nicotine 10 mg inhalation 1 inh inhalation Q2H PRN nicotine 05/10/23 Unknown History cartridge (Nicotrol) cravings paroxetine HCl 20 mg tablet 20 mg PO DAILY depression 05/10/23 Unknown History aripiprazole 10 mg tablet 10 mg PO DAILY 08/18/24 Unknown History benztropine 1 mg tablet 1 mg PO BID 08/18/24 Unknown History calcium carbonate (Calcium 500) 500 mg PO BID 08/18/24 Unknown History cholecalciferol (vitamin D3) 50 4,000 unit PO DAILY 08/18/24 Unknown History mcg (2,000 unit) tablet (Vitamin D3) docusate sodium 100 mg capsule 100 mg PO DAILY 08/18/24 Unknown History (Col-Rite) loperamide 2 mg tablet 4 mg PO .COMPLEX PRN loose stool 08/18/24 Unknown History paroxetine HCl 20 mg tablet (Paxil) 20 mg PO DAILY 08/18/24 Unknown History propranolol 80 mg tablet 80 mg PO BID 08/18/24 Unknown History Allergy/AdvReac Type Severity Reaction Status Date / Time ciprofloxacin (From Cipro) AdvReac Hives Verified 11/12/15 19:37 codeine AdvReac Hives Verified 11/12/15 19:37 Penicillins AdvReac Hives Verified 11/12/15 19:37 sulfamethoxazole (From AdvReac Hives Verified 11/12/15 19:37 Bactrim) trimethoprim (From Bactrim) AdvReac Hives Verified 11/12/15 19:37 Social History household members: none housing: long term Smoking Status: Current every day smoker tobacco type: cigarettes alcohol intake: never substance use type: does not use ROS ROS Narrative 10 systems were reviewed with pertinent positives as noted in the HPI above. Physical Exam Const Constitutional Narrative: Chronically ill in appearance. The patient remains confused and disoriented. HEENT normocephalic and head/scalp atraumatic Eyes PERRL, EOMs intact bilaterally and conjunctivae normal Neck supple General: trachea midline Chest inspection of chest normal Resp normal respiratory effort Auscultation: Negative for rales, rhonchi or wheezes Cardio regular rate and regular rhythm GI normal to inspection, nondistended, normoactive bowel sounds Extremity no clubbing, cyanosis or edema Skin no rashes or lesions noted Neuro CN's II-XII intact bilaterally and moves all extremities Psych Mood & Affect: flat affect Lab / Micro Data 08/19/24 08:55 08/19/24 08:55 Labs: Laboratory Results - last 24 hr 08/18/24 18:59: WBC 7.7, RBC 3.22 L, Hgb 9.9 L, Hct 29.7 L, MCV 92.2, MCH 30.7, MCHC 33.3, RDW Std Deviation 41.1, RDW Coeff of Eyal 12.3, Plt Count 114 L, MPV 10.8, Immature Gran % (Auto) 0.400, Neut % (Auto) 80.5 H, Lymph % (Auto) 11.0 L, [place] % (Auto) 6.7, Eos % (Auto) 1.3, Baso % (Auto) 0.1, Absolute Neuts (auto) 6.2, Absolute Lymphs (auto) 0.85, Nucleated RBC % 0, D-Dimer Quant (PE/DVT) 9.09 H*, Sodium 139, Potassium 4.1, Chloride 107, Carbon Dioxide 25.1, Anion Gap 8, BUN 22 H, Creatinine 1.19, Estim Creat Clear Calc 61.56, Est GFR (MDRD) Non-Af 69, BUN/Creatinine Ratio 18.2, Glucose 137 H, Hemoglobin A1c 5.2, Lactic Acid 1.3, Calcium 9.6, Total Bilirubin 0.46, AST 15, ALT 10, Alkaline Phosphatase 117, Total Protein 6.0, Albumin 3.9, Globulin 2.2, Albumin/Globulin Ratio 1.8, TSH 1.040, Urine Color Yellow, Urine Clarity Sl. Cloudy, Urine pH 6.0, Ur Specific [place] 1.015, Urine Protein 30 H, Urine Glucose (UA) Normal, Urine Ketones 5 H, Urine Occult Blood 25 H, Urine Nitrite Negative, Urine Bilirubin Negative, Urine Urobilinogen 1 H, Ur Leukocyte Esterase 500 H, Urine RBC 0-5 SEEN, Urine WBC 50-100 SEEN, Ur Squamous Epith Cells 0 SEEN, Urine Bacteria 0 SEEN, Urine Mucus 0 SEEN, Urine Opiates Screen Cancelled, U Buprenorphine Qual Cancelled, Ur Oxycodone Screen Cancelled, Urine Methadone Screen Cancelled, Urine Fentanyl Screen Cancelled, Ur Barbiturates Screen Cancelled, Valproic Acid 17 L, Ur Phencyclidine Scrn Cancelled, Ur Amphetamines Screen Cancelled, U Benzodiazepines Scrn Cancelled, Minco Cancelled, Urine Cocaine Screen Cancelled, U Cannabinoids Screen Cancelled, Ethyl Alcohol < 10.1 08/19/24 01:20: Vitamin B12 620, Cortisol AM Sample 16.10, Minco 0.82 08/19/24 03:00: Urine Opiates Screen NEGATIVE, U Buprenorphine Qual NEGATIVE, Ur Oxycodone Screen NEGATIVE, Urine Methadone Screen NEGATIVE, Urine Fentanyl Screen NEGATIVE, Ur Barbiturates Screen NEGATIVE, Ur Phencyclidine Scrn NEGATIVE, Ur Amphetamines Screen NEGATIVE, U Benzodiazepines Scrn PRESUMPTIVE POSITIVE, Urine Cocaine Screen NEGATIVE, U Cannabinoids Screen NEGATIVE ABG Data ABG results: ABG 08/18/24 19:29 Specimen Type ART Sample Site L Radial pH 7.42 Bicarbonate Actual 26.5 H Total CO2 28 Base Excess 2 O2 Saturation 94 L ABG pCO2 40.8 ABG pO2 68 L Cory Test Positive O2 Delivery Device Room Air Vent Mode Not entered Imaging Radiology Impression Chest X-Ray 08/18/24 19:06 IMPRESSION: NEGATIVE SINGLE VIEW OF THE CHEST. Reading Location: [id number] Abdomen/Pelvis CT 08/19/24 00:30 IMPRESSION: Moderate osteopenia. Acute comminuted displaced left intertrochanteric fracture. Moderate gastroparesis. Moderate amount of fecal residue in the large bowel suggestive of constipation with associated mild stercoral colitis of the rectosigmoid colon. Mild chronic multifocal scarring of the kidneys. Distended, trabeculated bladder. Diffuse thickening of the bladder. Chronic bladder outlet obstruction versus cystitis. Mild prostatomegaly with midline defect of the prostate, probably from prior TURP. Mild bilateral fullness of the collecting systems, probably reflux from distended bladder. Bilateral scattered simple renal cysts are noted with the largest measuring 5 mm. Right renal nonobstructing stone measuring 5 mm. Reading [facility] 08/19/24 00:30 IMPRESSION: No CT evidence of an acute brain abnormality. Reading [facility] Chest CTA 08/19/24 00:30 IMPRESSION: No demonstrated pulmonary embolism or arterial dissection. Minimal left pleural effusion/thickening. Minimal passive atelectatic airspace disease of the left lower lobe. Paraseptal emphysema. Moderate coronary artery calcifications. Multinodular thyroid goiter without tracheal narrowing or deviation. Minimal pericardial effusion. Reading [facility] Charges/Coding Visit Charges Inpatient E&M: 02557 Init Hosp L3
--- NOTE | 2024-08-19 07:13 | RAD_ITS ---
PROCEDURE: FEMUR MIN 2 VIEWS 08/19/2024 REASON FOR EXAM: FRACTURE TECHNIQUE: FEMUR MIN 2 VIEWS COMPARISON: None. FINDINGS: Bones: Suspicious for intertrochanteric fracture.. Remainder of femur is unremarkable. Joints: Intact. No femoroacetabular dislocation Other: RAD/Femur Min 2 Views IMPRESSION: Intertrochanteric fracture, nondisplaced, suspected Reading Location[facility]
--- NOTE | 2024-08-19 07:41 | PCM.CONS.GEN ---
Assessment & Plan Assessment/Plan (1) Intertrochanteric fracture of left femur: QUALIFIERS: Encounter type: initial encounter Fracture type: closed Fracture alignment: displaced Qualified Code(s): S72.142A - Displaced intertrochanteric fracture of left femur, initial encounter for closed fracture PLAN: Plan Comminuted left intertrochanteric femur fracture was found incidentally on CT scan no reported injury patient unable to scoot comply with history or physical exam Obtained verbal consent from his guardian Praveena Ray to proceed with left femur cephalomedullary fixation tomorrow 08/20/2024 tentatively scheduled for 1230 He is reported to ambulate without any assistive device prior to this. Antibiotics and TXA ordered on-call to the OR SCDs ordered HPI Consult Data Date of Consult: 08/19/24 HPI Narrative HPI Narrative: KIMMY OCHOA, is a 63 M who presents to the emergency room with altered mental status and hypotension. And incidentally was found to have a left hip intertrochanteric femur fracture on CT scan of his abdomen pelvis. There is no reported injury or fall patient is unable to provide any history. I was able to reach his guardian Praveena Ray for decision making. [facility] Medical History (Updated 08/19/24 @ 07:[address] Amauri Hermosillo, DO) History of schizophrenia Bradycardia Asthma GERD (gastroesophageal reflux disease) History of anoxic brain injury Adrenal insufficiency COPD (chronic obstructive pulmonary disease) Dysphagia BPH (benign prostatic hyperplasia) Polyarthropathy IBS (irritable bowel syndrome) Schizoaffective disorder Schizophrenia Mood disorder Anxiety and depression Chronic anemia HLD (hyperlipidemia) HTN (hypertension) Seizure disorder Dementia Hydrocele Home Medications ?Medication ?Instructions ?Recorded ?Last Taken ?Type acetaminophen 325 mg tablet 650 mg PO Q4H PRN Headache 05/26/17 Unknown History (Tylenol) albuterol sulfate 2.5 mg/3 mL 2.5 mg inhalation Q6H PRN PRN Sob 05/26/17 Unknown History (0.083 %) solution for nebulization &/Or Wheezing aluminum-mag hydroxide-simethicone 30 ml PO Q4H PRN PRN Indigestion 05/26/17 Unknown History 400 mg-400 mg-40 mg/5 mL oral susp (Mag-Al Plus Extra Strength) aripiprazole 5 mg tablet 5 mg PO QHS blood thinner 05/26/17 06/05/17 20:45 History 1 benzocaine 15 mg-menthol 3.6 mg 1 blaire buccal PRN PRN Sore Throat 05/26/17 Unknown History lozenges (Cepacol Sore Throat (benzocaine-menthol)) bisacodyl 10 mg rectal suppository 10 mg RECTAL DAILY PRN PRN 05/26/17 Unknown History Constipation divalproex 125 mg capsule,delayed 125 mg PO Q8H schizophrednia 05/26/17 06/05/17 20:45 History release sprinkle (Depakote 1 Sprinkles) fludrocortisone 0.1 mg tablet 0.05 mg PO DAILY@0800 abn labs 05/26/17 Unknown History guaifenesin 100 mg/5 mL oral liquid 10 ml PO Q4H PRN PRN Cough 05/26/17 Unknown History haloperidol 1 mg tablet 1 mg PO TID anxiety 05/26/17 06/05/17 20:45 History 1 lithium carbonate 300 mg 300 mg PO BID biopolar 05/26/17 06/05/17 20:45 History tablet,extended release 1 magnesium hydroxide 400 mg/5 mL 30 ml PO DAILY PRN PRN Constipation 05/26/17 Unknown History oral suspension polyethylene glycol 3350 17 gram 17 g PO DAILY constipation 05/26/17 Unknown History oral powder packet tamsulosin 0.4 mg capsule (Flomax) 0.4 mg PO DAILY urinary retention 05/26/17 Unknown History atorvastatin 40 mg tablet 40 mg PO QHS hyperlipidemia 05/10/23 Unknown History diphenhydramine HCl 50 mg/mL 50 mg IM Q6H PRN agitation 05/10/23 Unknown History injection solution folic acid 400 mcg tablet 400 mcg PO DAILY deficiency 05/10/23 Unknown History haloperidol lactate 5 mg/mL 5 mg IM Q3H PRN agitation 05/10/23 Unknown History injection solution hydrocortisone 10 mg tablet 10 mg PO BID adrenal 05/10/23 Unknown History insuffienciency hydrocortisone 5 mg tablet 5 mg PO DAILY adrenal insuffiencien 05/10/23 Unknown History lactulose 10 gram/15 mL oral 20 g PO BID abn labs 05/10/23 Unknown History solution (Enulose) lorazepam 0.5 mg tablet (Ativan) 0.5 mg PO Q6H PRN anxiety 05/10/23 Unknown History lorazepam 1 mg tablet 1 mg PO TID anxiety 05/10/23 Unknown History melatonin 3 mg capsule 6 mg PO QHS insom 05/10/23 Unknown History nicotine (polacrilex) 2 mg buccal 2 mg mucous membrane Q2H PRN 05/10/23 Unknown History lozenge nicotine cravings nicotine 10 mg inhalation 1 inh inhalation Q2H PRN nicotine 05/10/23 Unknown History cartridge (Nicotrol) cravings paroxetine HCl 20 mg tablet 20 mg PO DAILY depression 05/10/23 Unknown History aripiprazole 10 mg tablet 10 mg PO DAILY 08/18/24 Unknown History benztropine 1 mg tablet 1 mg PO BID 08/18/24 Unknown History calcium carbonate (Calcium 500) 500 mg PO BID 08/18/24 Unknown History cholecalciferol (vitamin D3) 50 4,000 unit PO DAILY 08/18/24 Unknown History mcg (2,000 unit) tablet (Vitamin D3) docusate sodium 100 mg capsule 100 mg PO DAILY 08/18/24 Unknown History (Col-Rite) loperamide 2 mg tablet 4 mg PO .COMPLEX PRN loose stool 08/18/24 Unknown History paroxetine HCl 20 mg tablet (Paxil) 20 mg PO DAILY 08/18/24 Unknown History propranolol 80 mg tablet 80 mg PO BID 08/18/24 Unknown History Allergy/AdvReac Type Severity Reaction Status Date / Time ciprofloxacin (From Cipro) AdvReac Hives Verified 11/12/15 19:37 codeine AdvReac Hives Verified 11/12/15 19:37 Penicillins AdvReac Hives Verified 11/12/15 19:37 sulfamethoxazole (From AdvReac Hives Verified 11/12/15 19:37 Bactrim) trimethoprim (From Bactrim) AdvReac Hives Verified 11/12/15 19:37 Social History household members: none housing: [facility] Smoking Status: Current every day smoker tobacco type: cigarettes alcohol intake: never substance use type: does not use Physical Exam Const Negative for alert or oriented x3 General Appearance: Negative for cooperative, well kempt or well developed Extremity Extremity Narrative: His left hip is externally rotated he does have a positive logroll. He is unable to comply with neurological testing he does have palpable pedal pulses and his compartments are soft Lab / Micro Data 08/18/24 18:59 08/18/24 18:59 Labs: Laboratory Results - last 24 hr 08/18/24 18:59: WBC 7.7, RBC 3.22 L, Hgb 9.9 L, Hct 29.7 L, MCV 92.2, MCH 30.7, MCHC 33.3, RDW Std Deviation 41.1, RDW Coeff of Eyal 12.3, Plt Count 114 L, MPV 10.8, Immature Gran % (Auto) 0.400, Neut % (Auto) 80.5 H, Lymph % (Auto) 11.0 L, [place] % (Auto) 6.7, Eos % (Auto) 1.3, Baso % (Auto) 0.1, Absolute Neuts (auto) 6.2, Absolute Lymphs (auto) 0.85, Nucleated RBC % 0, D-Dimer Quant (PE/DVT) 9.09 H*, Sodium 139, Potassium 4.1, Chloride 107, Carbon Dioxide 25.1, Anion Gap 8, BUN 22 H, Creatinine 1.19, Estim Creat Clear Calc 61.56, Est GFR (MDRD) Non-Af 69, BUN/Creatinine Ratio 18.2, Glucose 137 H, Hemoglobin A1c 5.2, Lactic Acid 1.3, Calcium 9.6, Total Bilirubin 0.46, AST 15, ALT 10, Alkaline Phosphatase 117, Total Protein 6.0, Albumin 3.9, Globulin 2.2, Albumin/Globulin Ratio 1.8, TSH 1.040, Urine Color Yellow, Urine Clarity Sl. Cloudy, Urine pH 6.0, Ur Specific [place] 1.015, Urine Protein 30 H, Urine Glucose (UA) Normal, Urine Ketones 5 H, Urine Occult Blood 25 H, Urine Nitrite Negative, Urine Bilirubin Negative, Urine Urobilinogen 1 H, Ur Leukocyte Esterase 500 H, Urine RBC 0-5 SEEN, Urine WBC 50-100 SEEN, Ur Squamous Epith Cells 0 SEEN, Urine Bacteria 0 SEEN, Urine Mucus 0 SEEN, Urine Opiates Screen Cancelled, U Buprenorphine Qual Cancelled, Ur Oxycodone Screen Cancelled, Urine Methadone Screen Cancelled, Urine Fentanyl Screen Cancelled, Ur Barbiturates Screen Cancelled, Valproic Acid 17 L, Ur Phencyclidine Scrn Cancelled, Ur Amphetamines Screen Cancelled, U Benzodiazepines Scrn Cancelled, [place] Cancelled, Urine Cocaine Screen Cancelled, U Cannabinoids Screen Cancelled, Ethyl Alcohol < 10.1 08/19/24 01:20: Vitamin B12 620, Cortisol AM Sample 16.10, [place] 0.82 08/19/24 03:00: Urine Opiates Screen NEGATIVE, U Buprenorphine Qual NEGATIVE, Ur Oxycodone Screen NEGATIVE, Urine Methadone Screen NEGATIVE, Urine Fentanyl Screen NEGATIVE, Ur Barbiturates Screen NEGATIVE, Ur Phencyclidine Scrn NEGATIVE, Ur Amphetamines Screen NEGATIVE, U Benzodiazepines Scrn PRESUMPTIVE POSITIVE, Urine Cocaine Screen NEGATIVE, U Cannabinoids Screen NEGATIVE Micro: Microbiology 08/19/24 01:35 Mucosa - Nasopharyngeal Respiratory Panel (PCR) - Final ABG Data ABG results: ABG 08/18/24 19:29 Specimen Type ART Sample Site L Radial pH 7.42 Bicarbonate Actual 26.5 H Total CO2 28 Base Excess 2 O2 Saturation 94 L ABG pCO2 40.8 ABG pO2 68 L Cory Test Positive O2 Delivery Device Room Air Vent Mode Not entered Imaging Radiology Impression Chest X-Ray 08/18/24 19:06 IMPRESSION: NEGATIVE SINGLE VIEW OF THE CHEST. Reading Location: [id number] Abdomen/Pelvis CT 08/19/24 00:30 IMPRESSION: Moderate osteopenia. Acute comminuted displaced left intertrochanteric fracture. Moderate gastroparesis. Moderate amount of fecal residue in the large bowel suggestive of constipation with associated mild stercoral colitis of the rectosigmoid colon. Mild chronic multifocal scarring of the kidneys. Distended, trabeculated bladder. Diffuse thickening of the bladder. Chronic bladder outlet obstruction versus cystitis. Mild prostatomegaly with midline defect of the prostate, probably from prior TURP. Mild bilateral fullness of the collecting systems, probably reflux from distended bladder. Bilateral scattered simple renal cysts are noted with the largest measuring 5 mm. Right renal nonobstructing stone measuring 5 mm. Reading Location: [id number] Brain CT 08/19/24 00:30 IMPRESSION: No CT evidence of an acute brain abnormality. Reading Location: [id number] Chest CTA 08/19/24 00:30 IMPRESSION: No demonstrated pulmonary embolism or arterial dissection. Minimal left pleural effusion/thickening. Minimal passive atelectatic airspace disease of the left lower lobe. Paraseptal emphysema. Moderate coronary artery calcifications. Multinodular thyroid goiter without tracheal narrowing or deviation. Minimal pericardial effusion. Reading Location[facility] [address]
--- NOTE | 2024-08-19 08:01 | PCM.PN.HOSP ---
Reason for Visit Reason for Visit: Diagnoses Sepsis, unspecified organism (08/19/24) Unspecified dementia, unspecified severity, with agitation (08/19/24) Schizoaffective disorder, unspecified (08/19/24) Depression, unspecified (08/19/24) Anxiety disorder, unspecified (08/19/24) Metabolic encephalopathy (08/19/24) Acute cystitis without hematuria (08/19/24) Other abnormalities of breathing (08/19/24) Severe sepsis with septic shock (08/19/24) Fracture of unspecified part of neck of left femur, initial encounter for closed fracture (08/19/24) Displaced intertrochanteric fracture of left femur, initial encounter for closed fracture (08/19/24) Personal history of other mental and behavioral disorders (08/19/24) Personal history of other diseases of the nervous system and sense organs (08/19/24) Objective Data Objective Data Vital Signs: Vital Signs Temp Pulse Resp BP Pulse Ox O2 Del Method 100.0 F H 66 16 104/71 95 Room Air 08/19/24 07:57 08/19/24 07:57 08/19/24 07:57 08/19/24 07:57 08/19/24 07:57 08/19/24 07:57 Oxygen Delivery Method Room Air Weight: 151 lb 7.321 oz Body Mass Index (BMI) 21.7 Intake & Output: Intake and Output for Last 24 Hours 08/17/24 08/18/24 08/19/24 23:59 23:59 23:59 Intake Total 3120 / 3120 567.91 / 567.91 Output Total 1300 / 1300 Balance 3120 / 3120 -732.09 / -732.09 Lab / Micro Data 08/18/24 18:59 08/18/24 18:59 Labs: Laboratory Results - last 24 hr 08/18/24 18:59: WBC 7.7, RBC 3.22 L, Hgb 9.9 L, Hct 29.7 L, MCV 92.2, MCH 30.7, MCHC 33.3, RDW Std Deviation 41.1, RDW Coeff of Eyal 12.3, Plt Count 114 L, MPV 10.8, Immature Gran % (Auto) 0.400, Neut % (Auto) 80.5 H, Lymph % (Auto) 11.0 L, [place] % (Auto) 6.7, Eos % (Auto) 1.3, Baso % (Auto) 0.1, Absolute Neuts (auto) 6.2, Absolute Lymphs (auto) 0.85, Nucleated RBC % 0, D-Dimer Quant (PE/DVT) 9.09 H*, Sodium 139, Potassium 4.1, Chloride 107, Carbon Dioxide 25.1, Anion Gap 8, BUN 22 H, Creatinine 1.19, Estim Creat Clear Calc 61.56, Est GFR (MDRD) Non-Af 69, BUN/Creatinine Ratio 18.2, Glucose 137 H, Hemoglobin A1c 5.2, Lactic Acid 1.3, Calcium 9.6, Total Bilirubin 0.46, AST 15, ALT 10, Alkaline Phosphatase 117, Total Protein 6.0, Albumin 3.9, Globulin 2.2, Albumin/Globulin Ratio 1.8, TSH 1.040, Urine Color Yellow, Urine Clarity Sl. Cloudy, Urine pH 6.0, Ur Specific [place] 1.015, Urine Protein 30 H, Urine Glucose (UA) Normal, Urine Ketones 5 H, Urine Occult Blood 25 H, Urine Nitrite Negative, Urine Bilirubin Negative, Urine Urobilinogen 1 H, Ur Leukocyte Esterase 500 H, Urine RBC 0-5 SEEN, Urine WBC 50-100 SEEN, Ur Squamous Epith Cells 0 SEEN, Urine Bacteria 0 SEEN, Urine Mucus 0 SEEN, Urine Opiates Screen Cancelled, U Buprenorphine Qual Cancelled, Ur Oxycodone Screen Cancelled, Urine Methadone Screen Cancelled, Urine Fentanyl Screen Cancelled, Ur Barbiturates Screen Cancelled, Valproic Acid 17 L, Ur Phencyclidine Scrn Cancelled, Ur Amphetamines Screen Cancelled, U Benzodiazepines Scrn Cancelled, [place] Cancelled, Urine Cocaine Screen Cancelled, U Cannabinoids Screen Cancelled, Ethyl Alcohol < 10.1 08/19/24 01:20: Vitamin B12 620, Cortisol AM Sample 16.10, [place] 0.82 08/19/24 03:00: Urine Opiates Screen NEGATIVE, U Buprenorphine Qual NEGATIVE, Ur Oxycodone Screen NEGATIVE, Urine Methadone Screen NEGATIVE, Urine Fentanyl Screen NEGATIVE, Ur Barbiturates Screen NEGATIVE, Ur Phencyclidine Scrn NEGATIVE, Ur Amphetamines Screen NEGATIVE, U Benzodiazepines Scrn PRESUMPTIVE POSITIVE, Urine Cocaine Screen NEGATIVE, U Cannabinoids Screen NEGATIVE Micro: Microbiology 08/19/24 01:35 Mucosa - Nasopharyngeal Respiratory Panel (PCR) - Final ABG Data ABG results: ABG 08/18/24 19:29 Specimen Type ART Sample Site L Radial pH 7.42 Bicarbonate Actual 26.5 H Total CO2 28 Base Excess 2 O2 Saturation 94 L ABG pCO2 40.8 ABG pO2 68 L Cory Test Positive O2 Delivery Device Room Air Vent Mode Not entered Radiography Diagnostic Testing: Radiology Impression Chest X-Ray 08/18/24 19:06 IMPRESSION: NEGATIVE SINGLE VIEW OF THE CHEST. Reading Location: [id number] Abdomen/Pelvis CT 08/19/24 00:30 IMPRESSION: Moderate osteopenia. Acute comminuted displaced left intertrochanteric fracture. Moderate gastroparesis. Moderate amount of fecal residue in the large bowel suggestive of constipation with associated mild stercoral colitis of the rectosigmoid colon. Mild chronic multifocal scarring of the kidneys. Distended, trabeculated bladder. Diffuse thickening of the bladder. Chronic bladder outlet obstruction versus cystitis. Mild prostatomegaly with midline defect of the prostate, probably from prior TURP. Mild bilateral fullness of the collecting systems, probably reflux from distended bladder. Bilateral scattered simple renal cysts are noted with the largest measuring 5 mm. Right renal nonobstructing stone measuring 5 mm. Reading [facility] 08/19/24 00:30 IMPRESSION: No CT evidence of an acute brain abnormality. Reading Location[facility] Chest CTA 08/19/24 00:30 IMPRESSION: No demonstrated pulmonary embolism or arterial dissection. Minimal left pleural effusion/thickening. Minimal passive atelectatic airspace disease of the left lower lobe. Paraseptal emphysema. Moderate coronary artery calcifications. Multinodular thyroid goiter without tracheal narrowing or deviation. Minimal pericardial effusion. Reading Location: [place] [id number] Physical Exam Narrative Seen and examined Patient has garbled speech, disoriented. History is unobtainable. Patient was admitted with hypotension generalized weakness and altered mental status. Unclear how he fractured his left hip but he complained of left hip and not able to flex. Mild low-grade grade fever. Could not tell about dysuria or other symptoms. Physical exam General: Awake, orientation cannot be ascertained, HEENT: Atraumatic, PERRLA, EOMI, Normocephalic. Oral: No Gingival or Mucosal Lesions/ Ulcerations Neck: Supple, No JVD, Negative Carotid Bruits Chest wall/Lungs: Air entry diminished in bilateral lung bases. No crepitation/rhonchi Cardiovascular: Regular rate and rhythm, Normal S1,S2, systolic murmur Abdomen: Bowel Sounds sluggish, soft, Non Tender, Non-Distended : Mills catheter no renal angle tenderness. No suprapubic tenderness. Extremities: No edema, Capillary Refill Less than 3 Seconds Skin: No rashes, No breakdown Musculoskeletal: Tenderness over left hip, flexed deformity. No Tenderness to Palpation of other joints or Extremities Neurological: Does not follow command therefore complete neuroexam unobtainable. No obvious focal lateralizing sign Psych/Mental Status: Flat affect, schizophrenia Assessment & Plan Assessment/Plan (1) Sepsis: QUALIFIERS: Sepsis acute organ dysfunction status: with acute organ dysfunction Sepsis type: sepsis due to unspecified organism Severe sepsis acute organ dysfunction type: encephalopathy Severe sepsis shock status: with septic shock Qualified Code(s): A41.9 - Sepsis, unspecified organism; R65.21 - Severe sepsis with septic shock; G93.41 - Metabolic encephalopathy (2) Acute cystitis without hematuria: (3) Acute respiratory insufficiency: (4) Acute metabolic encephalopathy: (5) Hip fracture: QUALIFIERS: Encounter type: initial encounter Fracture type: closed Laterality: left Qualified Code(s): S72.002A - Fracture of unspecified part of neck of left femur, initial encounter for closed fracture (6) History of anoxic brain injury: (7) History of schizophrenia: (8) Schizoaffective disorder: QUALIFIERS: Schizoaffective disorder type: unspecified Qualified Code(s): F25.9 - Schizoaffective disorder, unspecified (9) Anxiety and depression: (10) Dementia: QUALIFIERS: Dementia behavioral or psychological symptom: with agitation Dementia severity: unspecified severity Dementia type: unspecified type Qualified Code(s): F03.911 - Unspecified dementia, unspecified severity, with agitation PLAN: Plan 63-year-old [place] of altered mental status, low BP, generalized weak and found to be hypotensive. He was agitated as per ER physician but calm in the ICU 1. Hypotension, suspicion of sepsis, exact focus unclear but suspicion of acute on chronic adrenal insufficiency: Patient fever, Tmax 100.5 Fahrenheit, low BP, 83/39, 68/47 and was on norepinephrine for short time. Currently on empiric meropenem. History unobtainable regarding clinical symptoms to rule out UTI or pneumonia. Prelim urine culture is negative. Respiratory panel negative. Blood culture negative. Chest CTA negative for PE but shows minimal left pleural effusion/thickening, minimal atelectatic airspace in the left lower lobe with paraseptal emphysema. Therefore unlikely major pneumonic consolidation and patient also on room air with no hypoxia. Empirically on IV vancomycin and meropenem. ABG that revealed pH 7.42/pCO2 40.8 mmHg/PaO2 68 mmHg/HCO3 28 mmol/L on RA. ABG was essentially normal. CT abdomen pelvis shows diffuse thickening of bladder with suspicion of chronic bladder outlet obstruction versus cystitis with mild prostatomegaly. 2. Acute Metabolic Encephalopathy in the setting of previously known Anoxic Brain Injury, Schizophrenia, Schizoaffective disorder, Depression with Anxiety and Dementia; of unclear type. CT shows no evidence of acute intracranial abnormality Acute Comminuted Displaced Left Intertrochanteric Fracture incidentally noted on CT this admission and perioperative evaluation: Patient left hip is flexed, no movement. Incidentally CT abdomen shows acute commuted displaced left intertrochanteric fracture for which femur x-ray showed the same but reported nondisplaced. Orthopedic surgeon is consulted. Discussed with anesthesiologist. Twelve-lead EKG NSR at 60 bpm, QTc 400 ms. 2D echo ordered. I think patient is moderate perioperative risk for hip surgery. History of COPD, hypertension and dyslipidemia but no history of CAD. 5. Adrenal insufficiency; on fludrocortisone and hydrocortisone twice daily: Give hydrocortisone 50 mg IV TID and check cortisol level. 6. History of admission here from May 10, 2023 to May 14, 2023 for for acute hypoxic respiratory failure due to a combination of influenza A and aspiration pneumonia in setting of previously known schizophrenia complicated by toxic encephalopathy - Noted. 7. Essential hypertension; on propranolol twice daily - Hold scheduled antihypertensives because of hypotension 8. Hyperlipidemia; on atorvastatin - Resume statin as previous. 9. History of tobacco abuse with subsequent asthma/COPD; on as needed albuterol plus nicotine replacement - Noted with no evidence of acute flare at this time. Continue as needed albuterol and nicotine replacement as before. 10. Seizure disorder; on divalproex - Check valproic acid level and replace with IV levetiracetam as there is a significant potential adverse drug interaction with meropenem. 11. Chronic oral dysphagia - Noted with patient currently n.p.o. and with swallow study pending. 12. IBS; of constipation type on lactulose twice daily - Restart this agent when patient able to tolerate oral intake. 13. BPH; with history of obstructive uropathy on tamsulosin - Resume tamsulosin when patient is able to tolerate oral intake. 14. History of hydrocele - Noted. 15. CKD; stage II - Stable with serum creatinine of 1.19 mg/dL, BUN of 22 mg/dL and EGFR of 69 mL/min present on admission. 16. Chronic pancytopenia with superimposed iron deficiency anemia - WBC of 7.7K, hemoglobin of 9.9 g/dL and platelet count of 114K present on admission. 17. History of vitamin D deficiency - Maintain vitamin D supplement when patient can safely tolerate oral intake. 18. OA; with polyarthropathy - Stable. Give acetaminophen as outlined in #1. 19. DVT/GI prophylaxis - Enoxaparin 40 mg sq daily plus SCD's. Pantoprazole 40 mg IV daily. Charges/Coding Visit Charges Inpatient E&M: [id number] [facility] L3
--- NOTE | 2024-08-19 08:42 | ECHOD_ITS ---
Reason For Study Reason For Study: HYPOTENSION Procedure This was a 2D Doppler, Color Flow transthoracic echocardiogram. Exam performed portable in ICU/CCU. Left Ventricle Normal LV size. The estimated ejection fraction is 70 %. No evidence for diastolic dysfunction. No regional wall motion abnormalities noted. Right Ventricle Normal RV size. Normal systolic function. Atria The left and right atria are normal. No doppler evidence for ASD. Mitral Valve There is no mitral valve stenosis. No mitral valve insufficiency. Tricuspid Valve There is no tricuspid stenosis. Unable to estimate RV systolic pressure due to insufficient tricuspid regurgitant envelope. Aortic Valve Trisinus/trileaflet aortic valve. Mild to moderate aortic stenosis. No aortic valve insufficiency. Pulmonic Valve Equivocal prolapse of the pulmonic valve. There is no pulmonic valvular stenosis. No pulmonic valve insufficiency. Great Vessels Normal sized aortic root. Pericardium/Pleural No pericardial effusion. MMode/2D Measurements & Calculations LVIDd: 4.2 cm IVSd: 0.87 cm LVOT diam: 2.0 cm LVIDs: 2.7 cm LVPWd: 0.93 cm LVOT area: 3.3 cm2 RVDd: 3.7 cm FS: 35.2 % Ao root diam: 3.2 cm LAV(MOD-bp): 58.2 ml LVAd ap4: 29.2 cm2 LAV(MOD-bp) Indexed: 35.1 ml/m2 LVLd ap4: 8.7 cm LAV(MOD-sp2): 53.6 ml EDV(MOD-sp4): 80.1 ml LAV(MOD-sp4): 54.1 ml EDV(sp4-el): 82.8 ml LVAs ap4: 14.6 cm2 LVLs ap4: 6.9 cm ESV(MOD-sp4): 27.2 ml ESV(sp4-el): 26.5 ml EF(MOD-sp4): 66.0 % EF(sp4-el): 68.0 % SV(MOD-sp4): 52.9 ml SV(sp4-el): 56.4 ml LA A4 area: 20.8 cm2 SI(MOD-sp4): 31.9 ml/m2 LA dimension(2D): 3.1 cm RA A4 area: 17.2 cm2 TAPSE: 2.2 cm Time Measurements MV dec time: 0.20 sec Doppler Measurements & Calculations MV E max sammy: 87.2 cm/sec Lat Peak E' Sammy: 13.1 cm/sec Med Peak E' Sammy: 13.7 cm/sec MV A max sammy: 102.1 cm/sec E/E' lat: 6.6 E/E' med: 6.4 MV E/A: 0.85 Ao V2 max: 307.7 cm/sec LV V1 max: 149.7 cm/sec SV(LVOT): 115.0 ml Ao max P.9 mmHg LV V1 max P.0 mmHg Ao V2 mean: 211.9 cm/sec LV V1 mean P.3 mmHg Ao mean P.1 mmHg LV V1 mean: 107.8 cm/sec Ao V2 VTI: 64.5 cm LV V1 VTI: 35.2 cm AV (velocity ratio): 0.55 ESTEFANIA(I,D): 1.8 cm2 ESTEFANIA(V,D): 1.6 cm2 PA V2 max: 129.7 cm/sec ECHO/Echo Complete Interpretation Summary The estimated ejection fraction is 70 %. No evidence for diastolic dysfunction. Mild to moderate aortic stenosis. Ordering Physician: Marciano Guerin Referring Physician: ASHLEY DICKEY Performed By: Jacinda Cedeno RDCS
[2024-08-19 09:11] LABS: Absolute Lymphocyte Count 0.45 X10^3/uL (0.83-4.51); Absolute Neutrophil Count 4.1 X10^3/uL (2.0-7.7); Differential Indicated SCAN CRITERIA MET; Eosinophil# 0.01 X10^3/uL; Eosinophils% 0.2 % (0-5); Hematocrit 24.6 % (40-54); Hemoglobin 8.1 g/dL (13.0-16.5); Lymphocyte # 0.45 X10^3/ul (0.83-4.51); Lymphocyte % 9.2 % (19-41); Mean Corp Hgb Conc 32.9 g/dL (32-36); Mean Corpuscular Hgb 30.5 pg (27.0-32.0); Mean Corpuscular Volume 92.5 fL (80-94); Mean Platelet Vol. 10.3 fl (6.2-12.0); Monocyte# 0.29 X10^3/uL; Monocyte% 5.9 % (0-10); NRBC Flagged by Analyzer 0 % (0-5); Neutrophil # 4.11 X10^3/uL (2.7-7.7); Neutrophil % 84.3 % (47-70); POSITIVE COUNT YES; POSITIVE DIFFERENTIAL YES; Platelet Count 76 K/mm3 (150-450); RBC Distribution Width CV 12.5 % (11.6-14.6); RBC Distribution Width SD 41.6 fl (35.1-43.9); Red Blood Count 2.66 M/mm3 (4.6-6.2); White Blood Count 4.9 K/mm3 (4.4-11.0)
[2024-08-19 09:35] LABS: Differential Comment SCANNED; Platelet Estimate MOD DEC (ADEQ)
[2024-08-19 09:37] LABS: Anion Gap 8 (5-15); BUN 14 mg/dL (4-19); Calcium,Total 8.3 mg/dL (7.6-11.0); Carbon Dioxide 19.3 mmol/L (21.0-32.0); Chloride 118 mmol/L (98-108); Creatinine, Serum 0.94 mg/dL (0.70-1.20); EST Glomerular Filtration Rate 91 (>60); Estimated Creatinine Clearance 78.16 ml/min (50-250); Glucose 128 mg/dL (70-99); Potassium 3.7 mmol/L (3.3-5.1); Sodium Level 145 mmol/L (133-145)
[2024-08-19] MEDS: Pantoprazole Sodium 40 MG in 0.9% Normal Saline (100mL MB+) 100 ML 330 MG IV (09:41)
[2024-08-19] MEDS: levETIRAcetam IV 1,000 MG/100 ML BAG 400 MG IV ×2 (10:06→21:31)
[2024-08-19] MEDS: Meropenem 1 GM in 0.9% Normal Saline (100mL Bag) 100 ML IV ×2 (10:48→21:31)
[2024-08-19] MEDS: Enoxaparin 40 MG/0.4 ML Syringe SC (10:48)
[2024-08-19] MEDS: Morphine 2 MG/ML Syringe IV (12:08)
[2024-08-19] MEDS: Vancomycin HCl 750 MG in 0.9% Normal Saline (250mL Bag) 250 ML 250 MG IV (14:23)
--- NOTE | 2024-08-19 15:57 | CASEMGMT ---
Social Work- SW participated in interdisciplinary rounds with care team. JOHN updated that legal guardian, Herminia, contacted regarding surgery consent. Plan is to return to [facility] when discharge appropriate. JOHN remains available to follow. JUSTICE Rascon
[2024-08-20] VITALS (21 sets, daily range): BP systolic 117–145; BP diastolic 49–81; PULSE 57–78; RESP 16–24; TEMP 36.4–37.7; O2SAT 92–98; BMI 21.6; BMI 21.7
[2024-08-20] MEDS: Vancomycin HCl 750 MG in 0.9% Normal Saline (250mL Bag) 250 ML 250 MG IV (02:42)
[2024-08-20] MEDS: 0.9% Normal Saline (250mL Bag) 250 ML 15 ML IV ×2 (02:42→21:49)
[2024-08-20] MEDS: Hydrocortisone Sod Succinate 100 MG/2 ML Vial 50 MG IV (05:52)
--- NOTE | 2024-08-20 06:52 | PN.CC_ITS ---
Assessment & Plan Assessment/Plan (1) Sepsis: QUALIFIERS: Sepsis type: sepsis due to unspecified organism S epsis acute organ dysfunction status: with acute organ dysfunction Severe sepsis acute organ dysfunction type: encephalopathy Severe sepsis shock status: with septic shock Qualified Code(s): A41.9 - Sepsis, unspecified organism; R65.21 - Severe sepsis with septic shock; G93.41 - Metabolic encephalopathy PLAN: Plan RECOMMENDATIONS: 1. Continue empiric antimicrobials, pending culture results. 2. Okay to wean stress dose steroids to once daily. 3. Tentative plans for orthopedic surgery intervention later today. 4. Lovenox for DVT prophylaxis. 5. PT/OT evaluations once surgical intervention is completed. IMPRESSIONS: 1. Sepsis Clinical concern for underlying UTI as precipitating etiology for the patient's hypotension and altered mental status. The patient did receive supplemental IV fluid hydration and is currently without need for vasopressor support. Continue antimicrobials, pending culture results. Given the patient's hemodynamic stability, we will decrease stress dose steroids to once daily. Once the patient's hydrocortisone has been discontinued, recommend resuming home Florinef. 2. Encephalopathy Improved. Most likely metabolic in etiology in the setting of #1. CT head was unremarkable. The patient does have a known history of schizoaffective disorder along with underlying dementia. 3. Left intertrochanteric fracture Orthopedic surgery planning for surgical intervention later today. 4. Known history of adrenal insufficiency Given the patient's overall clinical stability, we will plan to decrease his hydrocortisone to once daily. Ultimately, once stress dose steroids are discontinued, the patient's Florinef will need to be resumed. 5. History of COPD/seizure disorder/chronic kidney disease/BPH/hypertension Complicates care, management, recovery and prognosis. Continue Keppra as ordered. Physical therapy to evaluate the patient once medically stabilized. This note was generated with [employer] dictation software. It may contain incorrect words, spelling, and punctuation that were not noted in checking the note before signing. Subjective Subjective The patient was seen and examined at the bedside this morning. Events from the last 24 hours have been reviewed. The patient currently has a low-grade fever but remains otherwise hemodynamically stable on 3 L/min via nasal cannula. The patient is documented to be overall net +2.5 L for the hospitalization. He is much more alert and interactive this morning. Objective Data Objective Data The patient's most recent lab work, culture data and imaging studies have all been personally reviewed. Surface echocardiogram demonstrated normal LV size and function with an ejection fraction of 70%. Lower extremity Doppler study was negative for DVT. Respiratory viral panel was negative. Blood and urine cultures are pending. Vital Signs: Vital Signs Temp Pulse Resp BP Pulse Ox O2 Del Method O2 Flow Rate 99.7 F H 76 17 125/74 H 95 Nasal Cannula 3 08/20/24 06:00 08/20/24 06:00 08/20/24 06:00 08/20/24 06:00 08/20/24 06:00 08/20/24 06:00 08/20/24 06:00 Oxygen Flow Rate (L/min) 3 Oxygen Delivery Method Nasal Cannula Weight: 151 lb 0.266 oz Body Mass Index (BMI) 21.6 Intake & Output: Intake and Output for Last 24 Hours 08/18/24 08/19/24 08/20/24 23:59 23:59 23:59 Intake Total 3120 / 3120 3372.91 / 3372.91 265 / 265 Output Total 3200 / 3900 1050 / 1050 Balance 3120 / 3120 172.91 / -527.09 -785 / -785 Lab / Micro Data Attestation: I reviewed the patient's lab results. 08/19/24 08:55 08/19/24 08:55 Labs: Laboratory Results - last 24 hr 08/19/24 08:55: WBC 4.9, RBC 2.66 L, Hgb 8.1 L, Hct 24.6 L, MCV 92.5, MCH 30.5, MCHC 32.9, RDW Std Deviation 41.6, RDW Coeff of Eyal 12.5, Plt Count 76 L, MPV 10.3, Immature Gran % (Auto) 0.400, Neut % (Auto) 84.3 H, Lymph % (Auto) 9.2 L, [place] % (Auto) 5.9, Eos % (Auto) 0.2, Baso % (Auto) 0.0, Absolute Neuts (auto) 4.1, Absolute Lymphs (auto) 0.45 L, Nucleated RBC % 0, Differential Comment SCANNED, Platelet Estimate MOD DEC, Sodium 145, Potassium 3.7, Chloride 118 H, C arbon Dioxide 19.3 L, Anion Gap 8, BUN 14, Creatinine 0.94, Estim Creat Clear Calc 78.16, Est GFR (MDRD) Non-Af 91, BUN/Creatinine Ratio 15.0, Glucose 128 H, Calcium 8.3 Micro: Microbiology 08/18/24 18:54 Blood Culture (Wb) - Anticubital Left Blood Culture - Preliminary 08/18/24 18:59 Urine, Catheterized Urine Culture - Preliminary Culture exhibits no growth. 08/19/24 01:35 Mucosa - Nasopharyngeal Respiratory Panel (PCR) - Final Radiography Diagnostic Testing: Radiology Impression Venous Doppler Study 08/19/24 02:35 Interpretation Summary Deep veins of the lower extremities are bilaterally patent and compressible segmentally. There is no evidence of deep vein thrombosis on either side. Valvular competence appears intact within the proximal deep venous systems bilaterally. The great saphenous veins appear bilaterally patent and compressible segmentally. Veins were not imaged below the knee due to patient combativeness and lack of cooperation. Ordering Physician: Robert Huizar Referring Physician: Mani Balderas Performed By: Naty Parmar, [place], RVT Femur X-Ray 08/19/24 07:13 IMPRESSION: Intertrochanteric fracture, nondisplaced, suspected Reading Location: [facility] Echocardiogram 08/19/24 08:42 Interpretation Summary The estimated ejection fraction is 70 %. No evidence for diastolic dysfunction. Mild to moderate aortic stenosis. Ordering Physician: Marciano Guerin Referring Physician: MANI BALDERAS Performed By: Jacinda Cedeno RDCS Physical Exam Const Constitutional Narrative: Chronically ill in appearance. More alert and interactive than yesterday. HEENT normocephalic and head/scalp atraumatic Teeth and Gingiva: poor dentition Eyes PERRL, EOMs intact bilaterally and conjunctivae normal Neck supple General: trachea midline Chest inspection of chest normal Resp normal respiratory effort Auscultation: Negative for rales, rhonchi or wheezes Cardio regular rate and regular rhythm GI normal to inspection, nondistended, normoactive bowel sounds Extremity no clubbing, cyanosis or edema Skin no rashes or lesions noted Neuro CN's II-XII intact bilaterally and moves all extremities Psych Activity / Motor Behavior: restless Mood & Affect: flat affect Charges/Coding Visit Charges Inpatient E&M: 52518 Subs Hosp L2
--- NOTE | 2024-08-20 08:51 | PN.HOSP_ITS ---
Reason for Visit Reason for Visit: Diagnoses Sepsis, unspecified organism (08/19/24) Unspecified dementia, unspecified severity, with agitation (08/19/24) Schizoaffective disorder, unspecified (08/19/24) Depression, unspecified (08/19/24) Anxiety disorder, unspecified (08/19/24) Metabolic encephalopathy (08/19/24) Acute cystitis without hematuria (08/19/24) Other abnormalities of breathing (08/19/24) Severe sepsis with septic shock (08/19/24) Fracture of unspecified part of neck of left femur, initial encounter for closed fracture (08/19/24) Displaced intertrochanteric fracture of left femur, initial encounter for closed fracture (08/19/24) Personal history of other mental and behavioral disorders (08/19/24) Personal history of other diseases of the nervous system and sense organs (08/19/24) Objective Data Objective Data Vital Signs: Vital Signs Temp Pulse Resp BP Pulse Ox O2 Del Method O2 Flow Rate 99.8 F H 61 18 133/61 H 93 Nasal Cannula 3 08/20/24 07:00 08/20/24 07:00 08/20/24 07:00 08/20/24 07:00 08/20/24 07:00 08/20/24 07:00 08/20/24 07:00 Oxygen Flow Rate (L/min) 3 Oxygen Delivery Method Nasal Cannula Weight: 151 lb 0.266 oz Body Mass Index (BMI) 21.6 Intake & Output: Intake and Output for Last 24 Hours 08/18/24 08/19/24 08/20/24 23:59 23:59 23:59 Intake Total 3120 / 3120 3372.91 / 3372.91 265 / 265 Output Total 3200 / 3900 1050 / 1050 Balance 3120 / 3120 172.91 / -527.09 -785 / -785 Lab / Micro Data 08/19/24 08:55 08/19/24 08:55 Labs: Laboratory Results - last 24 hr 08/19/24 08:55: WBC 4.9, RBC 2.66 L, Hgb 8.1 L, Hct 24.6 L, MCV 92.5, MCH 30.5, MCHC 32.9, RDW Std Deviation 41.6, RDW Coeff of Eyal 12.5, Plt Count 76 L, MPV 10.3, Immature Gran % (Auto) 0.400, Neut % (Auto) 84.3 H, Lymph % (Auto) 9.2 L, [place] % (Auto) 5.9, Eos % (Auto) 0.2, Baso % (Auto) 0.0, Absolute Neuts (auto) 4.1, Absolute Lymphs (auto) 0.45 L, Nucleated RBC % 0, Differential Comment SCANNED, Platelet Estimate MOD DEC, Sodium 145, Potassium 3.7, Chloride 118 H, C arbon Dioxide 19.3 L, Anion Gap 8, BUN 14, Creatinine 0.94, Estim Creat Clear Calc 78.16, Est GFR (MDRD) Non-Af 91, BUN/Creatinine Ratio 15.0, Glucose 128 H, Calcium 8.3 Micro: Microbiology 08/18/24 18:59 Urine, Catheterized Urine Culture - Preliminary Mixed Gram Positive Organisms 08/18/24 18:54 Blood Culture (Wb) - Anticubital Left Blood Culture - Preliminary 08/19/24 01:35 Mucosa - Nasopharyngeal Respiratory Panel (PCR) - Final Radiography Diagnostic Testing: Radiology Impression Venous Doppler Study 08/19/24 02:35 Interpretation Summary Deep veins of the lower extremities are bilaterally patent and compressible segmentally. There is no evidence of deep vein thrombosis on either side. Valvular competence appears intact within the proximal deep venous systems bilaterally. The great saphenous veins appear bilaterally patent and compressible segmentally. Veins were not imaged below the knee due to patient combativeness and lack of cooperation. Ordering Physician: Robert Huizar Referring Physician: Mani Balderas Performed By: Naty Parmar RDCS, RVT Echocardiogram 08/19/24 08:42 Interpretation Summary The estimated ejection fraction is 70 %. No evidence for diastolic dysfunction. Mild to moderate aortic stenosis. Ordering Physician: Marciano Guerin Referring Physician: MANI BALDERAS Performed By: Jacinda Cedeno RDCS Physical Exam Narrative Seen and examined Patient is still has garbled speech but looks better. I could not much understand his speech but he states no burning in urine. He could not tell me when he was last BM but CT abdomen shows fecaliths and stercoral colitis from ascending to rectosigmoid region. He denies abdominal pain and is not tender but history complete remains unobtainable Patient was admitted with hypotension generalized weakness and altered mental status. Unclear how he fractured his left hip but he complained of left hip and not able to flex. Mild low-grade grade fever. Could not tell about dysuria or other symptoms. Physical exam General: Awake, orientation cannot be ascertained, HEENT: Atraumatic, PERRLA, EOMI, Normocephalic. Oral: No Gingival or Mucosal Lesions/ Ulcerations Neck: Supple, No JVD, Negative Carotid Bruits Chest wall/Lungs: Air entry diminished in bilateral lung bases. No crepitation/rhonchi Cardiovascular: Regular rate and rhythm, Normal S1,S2, systolic murmur Abdomen: firm lump palpable in the right paraumbilical/lumbar region. Bowel Sounds sluggish, soft, Non Tender, Non-Distended : Mills catheter no renal angle tenderness. No suprapubic tenderness. Extremities: No edema, Capillary Refill Less than 3 Seconds Skin: No rashes, No breakdown Musculoskeletal: Tenderness over left hip, flexed deformity. No Tenderness to Palpation of other joints or Extremities Neurological: Does not follow command therefore complete neuroexam unobtainable. No obvious focal lateralizing sign Psych/Mental Status: Flat affect, schizophrenia Assessment & Plan Assessment/Plan (1) Sepsis: QUALIFIERS: Sepsis type: sepsis due to unspecified organism S epsis acute organ dysfunction status: with acute organ dysfunction Severe sepsis acute organ dysfunction type: encephalopathy Severe sepsis shock status: with septic shock Qualified Code(s): A41.9 - Sepsis, unspecified organism; R65.21 - Severe sepsis with septic shock; G93.41 - Metabolic encephalopathy (2) Acute cystitis without hematuria: (3) Acute respiratory insufficiency: (4) Acute metabolic encephalopathy: (5) Hip fracture: QUALIFIERS: Encounter type: initial encounter Fracture type: c losed Laterality: left Qualified Code(s): S72.002A - Fracture of unspecified part of neck of left femur, initial encounter for closed fracture (6) History of anoxic brain injury: (7) History of schizophrenia: (8) Schizoaffective disorder: QUALIFIERS: Schizoaffective disorder type: unspecified Qualified Code(s): F25.9 - Schizoaffective disorder, unspecified (9) Anxiety and depression: (10) Dementia: QUALIFIERS: Dementia type: unspecified type Dementia severity: u nspecified severity Dementia behavioral or psychological symptom: with agitation Qualified Code(s): F03.911 - Unspecified dementia, unspecified severity, with agitation PLAN: Plan 63-year-old gentleman was admitted from [facility] [place] for evaluation of altered mental status, low BP, generalized weak and found to be hypotensive. He was agitated as per ER physician but calm in the ICU 1. Hypotension, suspicion of septic shock, exact focus unclear but possible underlying UTI, suspicion of acute on chronic adrenal insufficiency: Patient fever, Tmax 100.5 Fahrenheit, low BP, 83/39, 68/47 and was on norepinephrine for short time. Currently on empiric meropenem. History unobtainable regarding clinical symptoms to rule out UTI or pneumonia. Prelim urine culture is negative. Respiratory panel negative. Blood culture negative. Chest CTA negative for PE but shows minimal left pleural effusion/thickening, minimal atelectatic airspace in the left lower lobe with paraseptal emphysema. Therefore unlikely major pneumonic consolidation and patient also on room air with no hypoxia. Empirically on IV vancomycin and meropenem. ABG that revealed pH 7.42/pCO2 40.8 mmHg/PaO2 68 mmHg/HCO3 28 mmol/L on RA. ABG was essentially normal. CT abdomen pelvis shows diffuse thickening of bladder with suspicion of chronic bladder outlet obstruction versus cystitis with mild prostatomegaly. 08/20: Clinical concern of sepsis due to UTI: History regarding lower urinary tract symptoms remain unobtainable. Continue antimicrobial. Patient received IV fluid in ED as per sepsis protocol. 2. Acute Metabolic Encephalopathy in the setting of previously known Anoxic Brain Injury, Schizophrenia, Schizoaffective disorder, Depression with Anxiety and Dementia; of unclear type. CT shows no evidence of acute intracranial abnormality 08/20: Encephalopathy looks better Acute Comminuted Displaced Left Intertrochanteric Fracture incidentally noted on CT this admission and perioperative evaluation: Patient left hip is flexed, no movement. Incidentally CT abdomen shows acute commuted displaced left intertrochanteric fracture for which femur x-ray showed the same but reported nondisplaced. Orthopedic surgeon is consulted. Discussed with anesthesiologist. Twelve-lead EKG NSR at 60 bpm, QTc 400 ms. 2D echo ordered. I think patient is moderate perioperative risk for hip surgery. History of COPD, hypertension and dyslipidemia but no history of CAD. 08/20: Patient going for left hip surgery. 2D echo EF 70% no evidence of diastolic dysfunction. Mild to moderate aortic stenosis, mean AV gradient 20.1 mmHg. 5. Possible acute on chronic adrenal insufficiency; on fludrocortisone and hydrocortisone twice daily: Give hydrocortisone 50 mg IV TID and check cortisol level. 6. Severe impacted fecalith and stercoral colitis from ascending to rectosigmoid region: Discussed with Dr. Pacheco. CT abdomen reviewed and shows impacted fecalith in the right side colon, stretching of rectosigmoid region and rectum. Soapsuds enema ordered by patient is going for surgery and afterwards, will need mineral oil, neostigmine after discontinuation of hydrocortisone (severe interaction), enema and possible colonoscopy History of admission here from May 10, 2023 to May 14, 2023 for for acute hypoxic respiratory failure due to a combination of influenza A and aspiration pneumonia in setting of previously known schizophrenia complicated by toxic encephalopathy - Noted. 7. Essential hypertension; on propranolol twice daily - Hold scheduled antihypertensives because of hypotension 8. Hyperlipidemia; on atorvastatin - Resume statin as previous. 9. History of tobacco abuse with subsequent asthma/COPD; on as needed albuterol plus nicotine replacement - Noted with no evidence of acute flare at this time. Continue as needed albuterol and nicotine replacement as before. 10. Seizure disorder; on divalproex - Check valproic acid level and replace with IV levetiracetam as there is a significant potential adverse drug interaction with meropenem. 11. Chronic oral dysphagia - Noted with patient currently n.p.o. and with swallow study pending. 12. IBS; of constipation type on lactulose twice daily - Restart this agent when patient able to tolerate oral intake. 13. BPH; with history of obstructive uropathy on tamsulosin - Resume tamsulosin when patient is able to tolerate oral intake. CKD; stage II - Stable with serum creatinine of 1.19 mg/dL, BUN of 22 mg/dL and EGFR of 69 mL/min present on admission. Chronic pancytopenia with superimposed iron deficiency anemia - WBC of 7.7K, hemoglobin of 9.9 g/dL and platelet count of 114K present on admission. H&H 8.3/25.4%. Platelet count 201,000. WBC count normal 17. Chronicvitamin D deficiency - Maintain vitamin D supplement when patient can safely tolerate oral intake. 18. OA; with polyarthropathy - Stable. Give acetaminophen as outlined in #1. 19. DVT/GI prophylaxis - Enoxaparin 40 mg sq daily plus SCD's. Pantoprazole 40 mg IV daily. Clinical Impression(s) from Imaging Studies Chest X-Ray 08/18/24 19:06 IMPRESSION: NEGATIVE SINGLE VIEW OF THE CHEST. Reading Location: [id number] Abdomen/Pelvis CT 08/19/24 00:30 IMPRESSION: Moderate osteopenia. Acute comminuted displaced left intertrochanteric fracture. Moderate gastroparesis. Moderate amount of fecal residue in the large bowel suggestive of constipation with associated mild stercoral colitis of the rectosigmoid colon. Mild chronic multifocal scarring of the kidneys. Distended, trabeculated bladder. Diffuse thickening of the bladder. Chronic bladder outlet obstruction versus cystitis. Mild prostatomegaly with midline defect of the prostate, probably from prior TURP. Mild bilateral fullness of the collecting systems, probably reflux from distended bladder. Bilateral scattered simple renal cysts are noted with the largest measuring 5 mm. Right renal nonobstructing stone measuring 5 mm. [facility] 08/19/24 00:30 IMPRESSION: No CT evidence of an acute brain abnormality. Reading [facility] Chest CTA 08/19/24 00:30 IMPRESSION: No demonstrated pulmonary embolism or arterial dissection. Minimal left pleural effusion/thickening. Minimal passive atelectatic airspace disease of the left lower lobe. Paraseptal emphysema. Moderate coronary artery calcifications. Multinodular thyroid goiter without tracheal narrowing or deviation. Minimal pericardial effusion. Reading Location: [facility] Venous Doppler Study 08/19/24 02:35 Interpretation Summary Deep veins of the lower extremities are bilaterally patent and compressible segmentally. There is no evidence of deep vein thrombosis on either side. Valvular competence appears intact within the proximal deep venous systems bilaterally. The great saphenous veins appear bilaterally patent and compressible segmentally. Veins were not imaged below the knee due to patient combativeness and lack of cooperation. Ordering Physician: Robert Huizar Referring Physician: Mani Balderas Performed By: Naty Parmar, RDCS, RVT Femur X-Ray 08/19/24 07:13 IMPRESSION: Intertrochanteric fracture, nondisplaced, suspected [facility] Echocardiogram 08/19/24 08:42 Interpretation Summary The estimated ejection fraction is 70 %. No evidence for diastolic dysfunction. Mild to moderate aortic stenosis. Ordering Physician: Marciano Guerin Referring Physician: MANI BALDERAS Performed By: Jacinda Cedeno RDCS Charges/Coding Visit Charges Inpatient E&M: 80493 Subs Hosp L3
--- NOTE | 2024-08-20 08:51 | CASEMGMT ---
Addendum entered by Valentina Thibodeaux 08/20/24 10:15: Fax confirmation rec'd. Valentina Thibodeaux DC Planning Asst. Original Note: Discharge Planning Updates faxed to [facility]. Valentina Thibodeaux DC Planning Asst.
[2024-08-20 09:02] LABS: Absolute Lymphocyte Count 0.61 X10^3/uL (0.83-4.51); Absolute Neutrophil Count 4.4 X10^3/uL (2.0-7.7); Basophil# 0.01 X10^3/uL; Basophil% 0.2 % (0-1); Eosinophil# 0.01 X10^3/uL; Eosinophils% 0.2 % (0-5); Hematocrit 25.4 % (40-54); Hemoglobin 8.3 g/dL (13.0-16.5); Lymphocyte # 0.61 X10^3/ul (0.83-4.51); Lymphocyte % 11.2 % (19-41); Mean Corp Hgb Conc 32.7 g/dL (32-36); Mean Corpuscular Hgb 30.5 pg (27.0-32.0); Mean Corpuscular Volume 93.4 fL (80-94); Mean Platelet Vol. 10.5 fl (6.2-12.0); Monocyte# 0.37 X10^3/uL; Monocyte% 6.8 % (0-10); NRBC Flagged by Analyzer 0 % (0-5); Neutrophil # 4.41 X10^3/uL (2.7-7.7); Neutrophil % 81.2 % (47-70); Platelet Count 101 K/mm3 (150-450); RBC Distribution Width CV 12.6 % (11.6-14.6); RBC Distribution Width SD 42.9 fl (35.1-43.9); Red Blood Count 2.72 M/mm3 (4.6-6.2); White Blood Count 5.4 K/mm3 (4.4-11.0)
[2024-08-20 09:22] LABS: Anion Gap 9 (5-15); BUN 18 mg/dL (4-19); BUN/Creat Ratio 18.1 RATIO (10-20); Calcium,Total 8.8 mg/dL (7.6-11.0); Carbon Dioxide 20.9 mmol/L (21.0-32.0); Chloride 120 mmol/L (98-108); Creatinine, Serum 0.99 mg/dL (0.70-1.20); EST Glomerular Filtration Rate 86 (>60); Glucose 120 mg/dL (70-99); Potassium 3.8 mmol/L (3.3-5.1); Sodium Level 150 mmol/L (133-145)
--- NOTE | 2024-08-20 09:59 | CASEMGMT ---
Social Work- SW participated in interdisciplinary rounds with care team. [facility]; plans are to return when medically ready. SW remains available to follow. JUSTICE Rascon
[2024-08-20] MEDS: levETIRAcetam IV 1,000 MG/100 ML BAG 400 MG IV ×2 (10:07→21:49)
[2024-08-20] MEDS: Pantoprazole Sodium 40 MG in 0.9% Normal Saline (100mL MB+) 100 ML 330 MG IV (10:33)
[2024-08-20] MEDS: Meropenem 1 GM in 0.9% Normal Saline (100mL Bag) 100 ML IV ×2 (10:36→22:20)
--- NOTE | 2024-08-20 10:54 | PRE.ANES_ITS ---
ASA Classification* ASA Classification ASA Classification: 3 Assessment & Plan Anesthesia* Anesthesia Assessment Anesthesia Assessment: Discussed sedation and/or anesthesia options, risks, benefits, and alternatives with patient/parents/legal guardian/POA. Questions invited. The patient/parents/legal guardian/POA seems to understand and agrees to proceed with anesthesia plan. Reviewed the physical assessment, medical history, allergy history and patient home medications list prior to surgery/procedure/anesthetic and documented any changes. Performed airway and anesthesia risk assessments. Anesthesia Type Anesthesia Type: General (Patient has mild to moderate aortic stenosis. Avoid high heart rates and low blood pressure. Phenylephrine is drug of choice.) History Source History Obtained from:: Patient and Chart Anesthesia Focused Assessment* Temperature: 99.8 F Pulse Rate: 61 Blood Pressure: 133/61 Respiratory Rate: 18 Pulse Ox: 93 Oxygen Delivery Method: Room Air Oxygen Flow Rate (L/min): 3 Airway Assessment Mouth opens: >3 cm Mallampati Score: II Teeth Condition: Missing (Patient is edentulous.) Neck Range of motion (ROM): Full ROM Labs Anesthesia Preop lab: CBC WBC 5.4 K/mm3 (4.4-11.0) 08/20/24 08:50 08/20/24 RBC 2.72 M/mm3 (4.6-6.2) L 08/20/24 08:50 08/20/24 Hgb 8.3 g/dL (13.0-16.5) L 08/20/24 08:50 08/20/24 Hct 25.4 % (40-54) L 08/20/24 08:50 08/20/24 Plt Count 101 K/mm3 (150-450) L 08/20/24 08:50 08/20/24 CHEMISTRY Potassium 3.8 mmol/L (3.3-5.1) 08/20/24 08:50 08/20/24 Sodium 150 mmol/L (133-145) H 08/20/24 08:50 08/20/24 Magnesium 2.7 mg/dL (1.6-2.6) H 05/14/23 06:30 05/14/23 Phosphorus 3.4 mg/dL (2.5-4.9) 05/14/23 06:30 05/14/23 BUN 18 mg/dL (4-19) 08/20/24 08:50 08/20/24 Creatinine 0.99 mg/dL (0.70-1.20) 08/20/24 08:50 08/20/24 Glucose 120 mg/dL (70-99) H 08/20/24 08:50 08/20/24 POC Glucose 120 mg/dL (74-106) H 05/13/23 12:43 05/13/23 TSH 1.040 uIU/mL (0.300-4.200) 08/18/24 18:59 08/01 10/25 COAG Pre-Assessment Diagnosis/Proposed Procedure Planned Operative Procedure(s): Left cephalomedullary fracture fixation. Anesthesia History Anesthesia History - golf club head former: Anesthesia History - golf club head former Hx Hospitalization Any Problems With Anesthesia Cholinesterase deficiency You/Your Family Experience fever (hyperthermia) with Relationship Recent Exposure to Contagious Disease Does patient have nerve stimulator Patient instructed to have device shut off --Does patient have Pacemaker or ICD? When Was Last Pacemaker Check QUESTION #4 FULL TEXT: You/Your Family Experience fever (hyperthermia) with Anesthesia Last Oral Intake Last Oral intake: Last Oral Intake NPO since Meds taken in AM with sips of water? Meds patient instructed to take am of surgery Any additional information?: Yes NPO since: 00:00 PONV PONV - golf club head former: PONV - golf club head former Female HX of Motion Sickness HX of N/V After Surgery Non-Smoker Duration of Surgery greater than 60 minutes Number of Risk Factors PONV Score Height & Weight Height & Weight: Anesthesia: Height & Weight Height 5 ft 10 in 08/19/24 11:09 Weight: 68.5 kg 08/20/24 06:00 Body Mass Index (BMI) 21.6 08/20/24 06:00 Respiratory Assessment Respiratory Assessment - golf club head former: Respiratory Tract Infection Hx - golf club head former Hx Respiratory Tract Infection Any additional information?: Yes Hx Respiratory Tract Infection: No STOP Sleep Apnea STOP Sleep Apnea - golf club head former: STOP Sleep Apnea - golf club head former Hx Hypertension Yes 08/19/24 02:16 Hx Sleep Apnea No 08/19/24 02:16 CPAP BIPAP Do you snore loudly (louder No 08/19/24 02:16 than talking or can be heard Do you often feel tired/ No 08/19/24 02:16 fatigued/ sleepy during daytime? Has anyone observed you stop No 08/19/24 02:16 breathing during sleep? STOP Results Negative 08/19/24 02:16 QUESTION #5 FULL TEXT : Do you snore loudly (louder than talking or can be heard through closed doors)? Tobacco Use History Tobacco Use History - golf club head former: Tobacco Use History - golf club head former Tobacco Use Smoking Status Current every day smoker 08/19/24 02:16 Hx Tobacco Use No 08/19/24 02:16 Years Smoking Packs Smoked per Day Smoking Cessation Date was within the last 15 years Hx Smoking Cessation Date Hx Smoking Cessation Counseling Hematologic Medial History Hematologic Hx - golf club head former: Hematologic Medical Hx - documentation writer Hx of Blood Transfusion Hx of Transfusion in last 3 Months Date of Last Transfusion (if within last 3 months) Ever experience any problems with transfusion(s)? Specify any problems Hx of Preganancy in last 3 Months Nurse Filling Out Transfusion & Questions: Date: Time: Patient unable to answer at Yes 08/19/24 02:16 this time (ie. confused, unrespo /Reproduction History /Reproductive History - golf club head former: /Reproductive Hx- golf club head former Hx Now Gestational Age (in weeks): EDC: Hx Hx Para Hx Section SAB Active Medications Active Medications: Current Medications Generic Name Dose Route Start Last Admin Trade Name Freq PRN Reason Stop Dose Admin Acetaminophen 650 mg 08/19/24 01:30 Acetaminophen 650 Mg Suppository RC Q6H PRN PRN Pain 1-10 or Fever Albuterol Sulfate 2.5 mg 08/19/24 01:30 Albuterol 2.5 Mg/3 Ml Vial.Neb. INHALATION Q6H PRN PRN Sob &/Or Wheezing Bisacodyl 10 mg 08/19/24 01:30 Bisacodyl 10 Mg Suppository RC DAILY PRN PRN Constipation Enoxaparin Sodium 40 mg 08/19/24 10:00 08/20/24 10:12 Enoxaparin 40 Mg/0.4 Ml Syringe SC Not Given DAILY [facility] Hydrocortisone Sodium Succinate 50 mg 08/21/24 10:00 Hydrocortisone Sod Succinate 100 Mg/2 Ml Vial IV Q24 FR[facility]CO Meropenem 1 gm/ Sodium 120 mls @ 97 mls/hr 08/19/24 10:00 08/20/24 10:36 Chloride IV 97 mls/hr BID FRANCISCO Administration Vancomycin IV-PHARMACY TO DOSE 500 mls @ 250 mls/hr 08/19/24 01:30 1 each/ Sodium Chloride IV PRN PRN Rx to Dose Protocol Pantoprazole Sodium 40 mg/ 100 mls @ 330 mls/hr 08/19/24 10:00 08/20/24 10:33 Sodium Chloride IV 330 mls/hr Q24 FRANCISCO Administration Sodium Chloride 250 mls @ 15 mls/hr 08/19/24 01:31 08/20/24 02:42 IV 15 mls/hr .[id number] PRN Administration Saline Flush Sodium Chloride 250 mls @ 15 mls/hr 08/19/24 01:31 IV .[id number] PRN Additional IVPB Infusion Vancomycin HCl 750 mg/ Sodium 265 mls @ 250 mls/hr 08/19/24 14:00 08/20/24 03:50 Chloride IV Infused Q12H FR[facility]ISCO Infusion Levetiracetam 1,000 mg in 100 mls @ 400 mls/hr 08/19/24 10:00 08/20/24 10:42 IV Infused Q12 [facility]CO Infusion Morphine Sulfate 2 mg 08/19/24 11:31 08/19/24 12:08 Morphine 2 Mg/Ml Syringe IV 2 mg Q4H PRN PRN Administration Pain Score 6-10 or Pre PT/OT Nicotine 7 mg 08/19/24 01:30 08/20/24 10:12 Nicotine 7 Mg Patch TD Not Given DAILY [facility] Ondansetron HCl 4 mg 08/19/24 01:30 08/19/24 01:47 Ondansetron 4 Mg/2 Ml Vial IV 4 mg Q4H PRN PRN Administration NAUSEA/VOMITING Polyethylene Glycol 17 gm 08/20/24 10:00 08/20/24 10:12 Polyethylene Glycol 3350 17 Gm Packet PO Not Given DAILY [facility] Senna/Docusate Sodium 2 tablet 08/19/24 11:35 08/20/24 10:12 Senna/Docusate Sodium 1 Tablet PO Not Given BID [facility] Sodium Chloride 10 - 40 ml 08/19/24 01:31 0.9% Saline Lock 10 Ml Syringe IV UD PRN SALINE FLUSH Vancomycin Protocol 1 lab 08/20/24 12:30 Vancomycin Trough/Random Due MC 08/20/24 14:30 DAILY [facility] Medical History History of schizophrenia Bradycardia Asthma GERD (gastroesophageal reflux disease) History of anoxic brain injury Adrenal insufficiency COPD (chronic obstructive pulmonary disease) Dysphagia BPH (benign prostatic hyperplasia) Polyarthropathy IBS (irritable bowel syndrome) Schizoaffective disorder Schizophrenia Mood disorder Anxiety and depression Chronic anemia HLD (hyperlipidemia) HTN (hypertension) Seizure disorder Dementia Hydrocele Home Medications ?Medication ?Instructions ?Recorded ?Last Taken ?Type acetaminophen 325 mg tablet 650 mg PO Q4H PRN Headache 05/26/17 Unknown History (Tylenol) albuterol sulfate 2.5 mg/3 mL 2.5 mg inhalation Q6H W[place] N PRN Sob 05/26/17 Unknown History (0.083 %) solution for nebulization &/Or Wheezing aluminum-mag hydroxide-simethicone 30 ml PO Q4H PRN WV N Indigestion 05/26/17 Unknown History 400 mg-400 mg-40 mg/5 mL oral susp (Mag-Al Plus Extra Strength) aripiprazole 5 mg tablet 5 mg PO QHS blood thinner 06/05/17 20:45 History 1 benzocaine 15 mg-menthol 3.6 mg 1 blaire buccal PRN PRN S ore Throat 05/26/17 Unknown History lozenges (Cepacol Sore Throat (benzocaine-menthol)) bisacodyl 10 mg rectal suppository 10 mg RECTAL DAILY PRN PRN 05/26/17 Unknown History Constipation divalproex 125 mg capsule,delayed 125 mg PO Q8H schizo phrednia 05/26/17 06/05/17 20:45 History release sprinkle (Depakote 1 Sprinkles) fludrocortisone 0.1 mg tablet 0.05 mg PO DAILY@0800 ab n labs 05/26/17 Unknown History guaifenesin 100 mg/5 mL oral liquid 10 ml PO Q4H PRN P RN Cough 05/26/17 Unknown History haloperidol 1 mg tablet 1 mg PO TID anxiety 05/26/17 06/05/17 20:45 History 1 lithium carbonate 300 mg 300 mg PO BID biopolar 05/2606/05/17 20:45 History tablet,extended release 1 magnesium hydroxide 400 mg/5 mL 30 ml PO DAILY PRN PRN Constipation 05/26/17 Unknown History oral suspension polyethylene glycol 3350 17 gram 17 g PO DAILY constip ation 05/26/17 Unknown History oral powder packet tamsulosin 0.4 mg capsule (Flomax) 0.4 mg PO DAILY uri nary retention 05/26/17 Unknown History atorvastatin 40 mg tablet 40 mg PO QHS hyperlipidemia 05/10/23 Unknown History diphenhydramine HCl 50 mg/mL 50 mg IM Q6H PRN agitatio n 05/10/23 Unknown History injection solution folic acid 400 mcg tablet 400 mcg PO DAILY deficiency 05/10/23 Unknown History haloperidol lactate 5 mg/mL 5 mg IM Q3H PRN agitation 05/10/23 Unknown History injection solution hydrocortisone 10 mg tablet 10 mg PO BID adrenal 05/09 Unknown History insuffienciency hydrocortisone 5 mg tablet 5 mg PO DAILY adrenal insuf fiencien 05/10/23 Unknown History lactulose 10 gram/15 mL oral 20 g PO BID abn labs 11/24 Unknown History solution (Enulose) lorazepam 0.5 mg tablet (Ativan) 0.5 mg PO Q6H PRN anx iety 05/10/23 Unknown History lorazepam 1 mg tablet 1 mg PO TID anxiety 05/10/23 Unknown History melatonin 3 mg capsule 6 mg PO QHS insom 05/10/23 U nknown History nicotine (polacrilex) 2 mg buccal 2 mg mucous membrane Q2H PRN 05/10/23 Unknown History lozenge nicotine cravings nicotine 10 mg inhalation 1 inh inhalation Q2H PRN trixie otine 05/10/23 Unknown History cartridge (Nicotrol) cravings paroxetine HCl 20 mg tablet 20 mg PO DAILY depression 05/10/23 Unknown History aripiprazole 10 mg tablet 10 mg PO DAILY 08/18/24 Unkn own History benztropine 1 mg tablet 1 mg PO BID 08/18/24 Unknown History calcium carbonate (Calcium 500) 500 mg PO BID 08/18/24 Unknown History cholecalciferol (vitamin D3) 50 4,000 unit PO DAILY Unknown History mcg (2,000 unit) tablet (Vitamin D3) docusate sodium 100 mg capsule 100 mg PO DAILY 5 Unknown History (Col-Rite) loperamide 2 mg tablet 4 mg PO .COMPLEX PRN loose s tool 08/18/24 Unknown History paroxetine HCl 20 mg tablet (Paxil) 20 mg PO DAILY Unknown History propranolol 80 mg tablet 80 mg PO BID 08/18/24 Unknow n History Allergy/AdvReac Type Severity Reaction Status Date / Time ciprofloxacin (From Cipro) AdvReac Hives Verified 11/12/15 19:37 codeine AdvReac Hives Verified 11/12/15 19:37 Penicillins AdvReac Hives Verified 11/12/15 19:37 sulfamethoxazole (From AdvReac Hives Verified 11/12/15 19:37 Bactrim) trimethoprim (From Bactrim) AdvReac Hives Verified 11/12/15 19:37 Social History household members: none housing: [facility]dc Smoking Status: Current every day smoker tobacco type: cigarettes alcohol intake: never substance use type: does not use Review of Systems (Anesthesia) ROS Narrative System reviewed and no additional complaints, except as documented.
[2024-08-20] MEDS: TRANEXAMIC ACID 1,000 MG in 0.9% Normal Saline (100mL Bag) 100 ML 440 MG IV (12:43)
[2024-08-20] MEDS: Bupiv/Epi 0.25% 30 ML Vial (13:33)
--- NOTE | 2024-08-20 13:46 | PCM.POST.ANE ---
Anesthesia: Postop Eval I Current Vital Signs Temperature: 97.5 F Pulse Rate: 75 Blood Pressure: 145/79 Respiratory Rate: 18 Pulse Ox: 98 Oxygen Delivery Method: Venturi Mask Oxygen Flow Rate (L/min): 6 Assessment Airway patent: Yes Spontaneous unlabored respirations: Yes Mental status: Awake and Calm nausea: No Vomiting: No Anesthesia Complication: No Fluid Hydration Crystalloid volume administer (ml): 750 Total IV fluid infused: 750 Progress Note Anesthesia document: Postop Eval 1 completed: Yes
--- NOTE | 2024-08-20 13:49 | OP.PCM_ITS ---
Operative Report (Standard) Operative Information Date of Procedure: 08/20/24 Pre-Operative Diagnosis: Left hip intertrochanteric femur fracture Post-Operative Diagnosis: Same Surgery/Procedure Performed: Left hip cephalomedullary fixation childcare center director: No Type of Anesthesia: General RN Documented Start/Stop Times: Operation Date: 08/20/24 12:30 Case Time Into Pre-Op 08/20/24 11:42 Anesthesia Start 08/20/24 12:22 Into Room 08/20/24 12:22 Procedure Start 08/20/24 12:52 Procedure End 08/20/24 13:37 Anesthesia End 08/20/24 13:41 Out of Room 08/20/24 13:41 Into Recovery 08/20/24 13:43 Procedure Start Time: 12:52 Procedure Stop Time: 13:37 Select all DRAINS/GRAFTS/IMPLANTS that apply: Implanted device Implanted device details: Synthes size 12 TFN Estimated Blood Loss: 25 Specimen collected: No Description of surgery: Preoperative diagnosis: Left hip intertrochanteric femur fracture Postoperative diagnosis: Same Procedure: Cephalo-medullary fixation left hip Implants: Synthes short nail 130 deg 12 mm diameter 100 mm helical blade 40 mm screw Anesthesia: General EBL: 25 Complications: None Condition: Stable to PACU Indication for procedure: 63-year-old male patient with schizophrenia and came in for admission with altered mental status and hypotension unsure of mechanism of injury to his hip patient is not verbal. Incidental acute intertrochanteric left hip fracture was found on CT abdomen and pelvis. His guardian was contacted and informed consent was made with her risk benefits and alternatives were reviewed including risk of bleeding infection nerve, artery, bone, tissue damage, blood clot need for further surgery and continued pain. Procedure: Patient met in the preoperative holding area once again the operative extremity was identified by both patient and physician and was marked. Patient was met by anesthesia and IV was started . patient was brought back to the to the operating room anesthesia was started. Patient was then positioned on the fracture table all bony prominences were well-padded. patient was then positioned with abduction internal rotation and traction and fluoroscopy was brought in to ensure that an adequate reduction could be performed. Patient was then prepped and draped in usual sterile fashion and timeout was called to ensure the proper patient procedure and extremity were being contemplated. Fluoroscopy was used to kostas the tip of the greater trochanter and a 3 fingerbreadth incision was made 2 finger breaths proximal to the tip of the greater trochanter. Was carried carried down through the skin and subcutaneous tissue as well as the gluteal fascia. Guidepin was then inserted through the tip of the greater trochanter directed towards the level of lesser trochanter this was checked in both AP and lateral projections. An opening reamer was performed. Following this was the insertion of the nail the appropriate height jig was used and a triple trocar sleeve was advanced to the skin and a stab incision was made at the trocar was inserted to the level of the bone and a guidepin was placed into the femoral neck and head checked on both AP and lateral projections. This was then measured and appropriately sized helical blade was inserted the nail was locked proximally the fracture was compressed and a locking screw was placed distally the same incision was extended slightly distally to allow the insertion of the trocar for the transverse screw. This was then drilled and measured under fluoroscopy and the appropriate size screw w as inserted. Final AP and lateral projections were saved to the PACS system of the entire construct the wounds were thoroughly irrigated the fascia was closed with #1 [id number] Vicryls followed by 2-0 Vicryl in the subcutaneous tissues followed by jai in the skin. 0.5% Marcaine with epinephrine was injected into the subcutaneous tissues dressing was applied form of Xeroform 4 x 4 ABD and Ioban tape. Patient tolerated procedure well there is no intraoperative complications and was brought back to the PACU in stable condition. Surgical Findings: Intertrochanteric left femur fracture Complications Complications: No
--- NOTE | 2024-08-20 14:00 | PN.ORTHO_ITS ---
Subjective Subjective Seen and examined. Patient is comfortable. No complaints Objective Data Objective Data Vital Signs: Vital Signs Temp Pulse Resp BP Pulse Ox O2 Del Method O2 Flow Rate 97.5 F L 69 16 123/66 H 95 Nasal Cannula 3 08/20/24 13:49 08/20/24 13:50 08/20/24 13:50 08/20/24 13:50 08/20/24 13:50 08/20/24 13:50 08/20/24 13:50 Oxygen Flow Rate (L/min) 3 Oxygen Delivery Method Nasal Cannula Weight: 151 lb 0.266 oz Body Mass Index (BMI) 21.6 Intake & Output: Intake and Output for Last 24 Hours 08/18/24 08/19/24 08/20/24 23:59 23:59 23:59 Intake Total 3120 / 3120 3372.91 / 3372.91 585 / 585 Output Total 3200 / 3900 1150 / 1150 Balance 3120 / 3120 172.91 / -527.09 -565 / -565 Lab / Micro Data 08/20/24 08:50 08/20/24 08:50 Labs: Laboratory Results - last 24 hr 08/20/24 08:50: WBC 5.4, RBC 2.72 L, Hgb 8.3 L, Hct 25.4 L, MCV 93.4, MCH 30.5, MCHC 32.7, RDW Std Deviation 42.9, RDW Coeff of Eyal 12.6, Plt Count 101 L, MPV 10.5, Immature Gran % (Auto) 0.400, Neut % (Auto) 81.2 H, Lymph % (Auto) 11.2 L, [place] % (Auto) 6.8, Eos % (Auto) 0.2, Baso % (Auto) 0.2, Absolute Neuts (auto) 4.4, Absolute Lymphs (auto) 0.61 L, Nucleated RBC % 0, Sodium 150 H, Potassium 3.8, Chloride 120 H, Carbon Dioxide 20.9 L, Anion Gap 9, BUN 18, Creatinine 0.99, Estim Creat Clear Calc 74.00, Est GFR (MDRD) Non-Af 86, BUN/Creatinine Ratio 18.1, Glucose 120 H, Calcium 8.8 08/20/24 11:10: Blood Type A POSITIVE, Antibody Screen NEGATIVE Micro: Microbiology 08/18/24 18:59 Urine, Catheterized Urine Culture - Preliminary Mixed Gram Positive Organisms 08/18/24 18:54 Blood Culture (Wb) - Anticubital Left Blood Culture - Preliminary 08/19/24 01:35 Mucosa - Nasopharyngeal Respiratory Panel (PCR) - Final Radiography Diagnostic Testing: Radiology Impression Venous Doppler Study 08/19/24 02:35 Interpretation Summary Deep veins of the lower extremities are bilaterally patent and compressible segmentally. There is no evidence of deep vein thrombosis on either side. Valvular competence appears intact within the proximal deep venous systems bilaterally. The great saphenous veins appear bilaterally patent and compressible segmentally. Veins were not imaged below the knee due to patient combativeness and lack of cooperation. Ordering Physician: Robert Huizar Referring Physician: Mani Balderas Performed By: Naty Parmar, [place], RVT Physical Exam Const no apparent distress Extremity Extremity Narrative: Left thigh and hip dressing clean dry intact compartments are soft he has palpable pedal pulse Assessment & Plan Assessment/Plan (1) Intertrochanteric fracture of left femur: QUALIFIERS: Encounter type: initial encounter Fracture type: c losed Fracture alignment: displaced Qualified Code(s): S72.142A - Displaced intertrochanteric fracture of left femur, initial encounter for closed fracture PLAN: Plan Status post left hip supplementally fixation for intertrochanteric femur fracture, mechanism unknown. Patient is weightbearing as tolerated with physical therapy occupational therapy Recommend DVT prophylaxis SCDs CHUCK hose Lovenox 40 mg subcu daily for 3 weeks. Patient should follow-up in the office in 2 weeks for wound check and staple removal Dressing to be undisturbed for 5 days postop then should be removed and incisions need to be cleaned daily with antibacterial soap and warm water daily after this point. Dry dressing should be placed with medical tape and change daily as well. Patient may shower after initial 5 postoperative days and allow warm soapy water run over the incisions but he is not to submerge the incisions in tub or pool. Feel free to reach out with any questions or concerns.
--- NOTE | 2024-08-20 14:53 | CASEMGMT ---
Social Work- Green sheet and transport sheet placed on pt chart in the event of a weekend discharge. Discharging staff to make all final arrangements and notifications per green sheet instructions. Plan for discharge is back to [facility]; intermediate level of care. JUSTICE [place]
[2024-08-20 15:35] LABS: Vancomycin, Trough Level 10.2 ug/mL (5.0-15.0)
--- NOTE | 2024-08-20 15:42 | NURSING ---
Report called to Alee Rich in PCU
--- NOTE | 2024-08-20 15:48 | POSTOPAN2_ITS ---
Anesthesia Postop Eval I Sum Postop Eval Completion status Anesthesia document: Postop Eval 1 completed: Yes Anesthesia Postop Eval I Summary Anesthesia Postop Eval I Summary: Anesthesia Postop Eval I: Assessment Summary Airway patent Yes 08/20/24 13:49 [email or web address] Spontaneous unlabored Yes 08/20/24 13:49 [email or web address] respirations Mental status Awake,Calm 08/20/24 13:49 [email or web address] nausea No 08/20/24 13:49 ROD [email or web address] Vomiting No 08/20/24 13:49 [email or web address] [email or web address] Anesthesia Postop Eval I: Fluid Summary Crystalloid volume administer 750 08/20/24 13:49 [email or web address] (ml) Colloids volume administered ( ml) Blood Product volume administered (ml) Total IV fluid infused 750 08/20/24 13:49 [email or web address] Anesthesia Postop Eval I: Summary Notes Anesthesia Complication No 08/20/24 13:49 [email or web address] Anesthesia Complication Comment: Post-operative progress note Anesthesia: Postop Eval II Evaluation Mental status: Awake Pain Level: 3 nausea: No Vomiting: No
--- NOTE | 2024-08-20 15:48 | PCM.POSTANE2 ---
Anesthesia Postop Eval I Sum Postop Eval Completion status Anesthesia document: Postop Eval 1 completed: Yes Anesthesia Postop Eval I Summary Anesthesia Postop Eval I Summary: Anesthesia Postop Eval I: Assessment Summary Airway patent Yes 08/20/24 13:49 [email or web address] [email or web address] Spontaneous unlabored Yes 08/20/24 13:49 [email or web address] [email or web address] respirations Mental status Awake,Calm 08/20/24 13:49 [email or web address] nausea No 08/20/24 13:49 [email or web address] BALL [email or web address] Vomiting No 08/20/24 13:49 [email or web address] Anesthesia Postop Eval I: Fluid Summary Crystalloid volume administer 750 08/20/24 13:49 [email or web address] (ml) Colloids volume administered ( ml) Blood Product volume administered (ml) Total IV fluid infused 750 08/20/24 13:49 [email or web address] Anesthesia Postop Eval I: Summary Notes Anesthesia Complication No 08/20/24 13:49 [email or web address] Anesthesia Complication Comment: Post-operative progress note Anesthesia: Postop Eval II Evaluation Mental status: Awake Pain Level: 3 nausea: No Vomiting: No
[2024-08-20] MEDS: 0.9% Saline Lock 10 ML Syringe IV (21:49)
[2024-08-21] VITALS (9 sets, daily range): BP systolic 95–125; BP diastolic 56–90; PULSE 65–72; RESP 16–20; TEMP 36.6–38.3; O2SAT 94–100; BMI 21.7; BMI 23.1
--- NOTE | 2024-08-21 04:27 | NURSING ---
Monica from [facility] called. Update given.
[2024-08-21] MEDS: APIXABAN 2.5 MG TABLET (WCH) PO ×2 (06:29→21:54)
[2024-08-21] MEDS: levETIRAcetam IV 1,000 MG/100 ML BAG 400 MG IV ×2 (10:04→21:52)
[2024-08-21] MEDS: Pantoprazole Sodium 40 MG in 0.9% Normal Saline (100mL MB+) 100 ML 330 MG IV (10:30)
[2024-08-21] MEDS: Acetaminophen 325 MG Tablet 650 MG PO ×2 (11:42→17:38)
[2024-08-21] MEDS: Senna/Docusate Sodium 1 Tablet 2 TABLET PO ×2 (11:43→21:53)
[2024-08-21] MEDS: Cholecalciferol (VIT D3) 25 MCG TABLET (1,000 UNITS) PO (11:43)
[2024-08-21] MEDS: Mineral Oil 30 ML UDC PO (11:43)
[2024-08-21] MEDS: Polyethylene Glycol 3350 17 GM PACKET PO ×2 (11:44→21:52)
[2024-08-21] MEDS: Fludrocortisone Acetate 0.1 MG Tablet 0.05 MG PO (11:50)
[2024-08-21] MEDS: Vancomycin HCl 2,000 MG in 0.9% Normal Saline (500mL Bag) 500 ML 175 MG IV (12:17)
[2024-08-21] MEDS: Calcium Carbonate 500 MG Tablet PO ×2 (12:20→16:45)
--- NOTE | 2024-08-21 12:33 | PCM.RX.CS ---
Consult Antibiotic Management Pharmacy has been consulted to manage selected antibiotic: Vancomycin Type of Intervention Type of Consult: New start Suspected Infection Suspected Infection: Bacteremia Labs Labs: Sodium 150 mmol/L (133-145) H 08/20/24 08:50 Potassium 3.8 mmol/L (3.3-5.1) 08/20/24 08:50 Chloride 120 mmol/L (98-108) H 08/20/24 08:50 Carbon Dioxide 20.9 mmol/L (21.0-32.0) L 08/20/24 08:50 Anion Gap 9 (5-15) 08/20/24 08:50 BUN 18 mg/dL (4-19) 08/20/24 08:50 Creatinine 0.99 mg/dL (0.70-1.20) 08/20/24 08:50 Est GFR (MDRD) Non-Af 86 (>60) 08/20/24 08:50 BUN/Creatinine Ratio 18.1 RATIO (10-20) 08/20/24 08:50 Glucose 120 mg/dL (70-99) H 08/20/24 08:50 Vancomycin Trough 10.2 ug/mL (5.0-15.0) 08/20/24 15:00 Microbiology Microbiology: Microbiology 08/18/24 18:59 Urine, Catheterized Urine Culture - Preliminary Gram positive quintin Alpha hemolytic organism 08/18/24 18:50 Blood Culture (Wb) - Anticubital Right Blood Culture - Preliminary No growth in 48 hours. 08/18/24 18:54 Blood Culture (Wb) - Anticubital Left Blood Culture - Final Meth. resistant Staph. aureus 08/19/24 01:35 Mucosa - Nasopharyngeal Respiratory Panel (PCR) - Final Pharmacy Plan for Drug Dosing Pharmacy Plan for Drug Dosing: NEW START IV VANCOMYCIN Consulting Physician: Truong Indication: Bacteremia Goal Trough: 15-20 SrCr: 0.99 mg/dL (08/20/24) CrCl: 74 mL/min Comments: Patient as on vanco yesterday, re-started today. Last dose given was 750mg 08/20 @ 0242. Did do another loading dose (2000mg given 08/21 @ 1217) as it has been >24 hours since last dose and pt had a trough >12 hours ago that was subtherapeutic (10.2mg/dl). Vancomycin Dose: Will start 1000mg Q12 (08/22 @ 0000) and get a trough prior to 4th dose of new regimen. Pending Level: 08/22/24 @ 2330 Pharmacy Service will continue to monitor and adjust dosing as required.
--- NOTE | 2024-08-21 14:11 | PCM.PN.HOSP ---
Reason for Visit Reason for Visit: Diagnoses Sepsis, unspecified organism (08/19/24) Unspecified dementia, unspecified severity, with agitation (08/19/24) Schizoaffective disorder, unspecified (08/19/24) Depression, unspecified (08/19/24) Anxiety disorder, unspecified (08/19/24) Metabolic encephalopathy (08/19/24) Acute cystitis without hematuria (08/19/24) Other abnormalities of breathing (08/19/24) Severe sepsis with septic shock (08/19/24) Fracture of unspecified part of neck of left femur, initial encounter for closed fracture (08/19/24) Displaced intertrochanteric fracture of left femur, initial encounter for closed fracture (08/19/24) Personal history of other mental and behavioral disorders (08/19/24) Personal history of other diseases of the nervous system and sense organs (08/19/24) Objective Data Objective Data Vital Signs: Vital Signs Temp Pulse Resp BP Pulse Ox O2 Del Method O2 Flow Rate 99.7 F H 65 18 106/64 96 Nasal Cannula 2 08/21/24 07:48 08/21/24 07:48 08/21/24 07:48 08/21/24 07:48 08/21/24 07:48 08/21/24 07:48 08/21/24 11:38 Oxygen Flow Rate (L/min) 2 Oxygen Delivery Method Nasal Cannula Weight: 162 lb 0.636 oz Body Mass Index (BMI) 23.1 Intake & Output: Intake and Output for Last 24 Hours 08/19/24 08/20/24 08/21/24 23:59 23:59 23:59 Intake Total 3372.91 / 3372.91 1056.5 / 1056.5 700 / 700 Output Total 3200 / 3900 2100 / 2350 1475 / 1475 Balance 172.91 / -527.09 -1043.5 / -1293.5 -775 / -775 Lab / Micro Data 08/20/24 08:50 08/20/24 08:50 Labs: Laboratory Results - last 24 hr 08/20/24 15:00: Vancomycin Trough 10.2 Micro: Microbiology 08/18/24 18:59 Urine, Catheterized Urine Culture - Preliminary Gram positive quintin Alpha hemolytic organism 08/18/24 18:50 Blood Culture (Wb) - Anticubital Right Blood Culture - Preliminary No growth in 48 hours. 08/18/24 18:54 Blood Culture (Wb) - Anticubital Left Blood Culture - Final Meth. resistant Staph. aureus 08/19/24 01:35 Mucosa - Nasopharyngeal Respiratory Panel (PCR) - Final Physical Exam Narrative Seen and examined Her mental status slightly better but still has garbled speech. I could not much understand his speech but he states no burning in urine. He could not tell me when he was last BM but CT abdomen shows fecaliths and stercoral colitis from ascending to rectosigmoid region. He denies abdominal pain and is not tender but history complete remains unobtainable Patient was admitted with hypotension generalized weakness and altered mental status. Unclear how he fractured his left hip but he complained of left hip and not able to flex. Mild low-grade grade fever. Could not tell about dysuria or other symptoms. Physical exam General: Awake, orientation cannot be ascertained, HEENT: Atraumatic, PERRLA, EOMI, Normocephalic. Oral: No Gingival or Mucosal Lesions/ Ulcerations Neck: Supple, No JVD, Negative Carotid Bruits Chest wall/Lungs: Air entry diminished in bilateral lung bases. No crepitation/rhonchi Cardiovascular: Regular rate and rhythm, Normal S1,S2, systolic murmur Abdomen: firm lump palpable in the right paraumbilical/lumbar region, fecaloma, constipation. Bowel Sounds sluggish, soft, Non Tender, Non-Distended : Mills catheter no renal angle tenderness. No suprapubic tenderness. Extremities: No edema, Capillary Refill Less than 3 Seconds Skin: No rashes, No breakdown Musculoskeletal: Tenderness over left hip, flexed deformity. No Tenderness to Palpation of other joints or Extremities Neurological: Does not follow command therefore complete neuroexam unobtainable. No obvious focal lateralizing sign Psych/Mental Status: Flat affect, schizophrenia Assessment & Plan Assessment/Plan (1) Sepsis: QUALIFIERS: Sepsis type: sepsis due to unspecified organism Sepsis acute organ dysfunction status: with acute organ dysfunction Severe sepsis acute organ dysfunction type: encephalopathy Severe sepsis shock status: with septic shock Qualified Code(s): A41.9 - Sepsis, unspecified organism; R65.21 - Severe sepsis with septic shock; G93.41 - Metabolic encephalopathy (2) Acute cystitis without hematuria: (3) Acute respiratory insufficiency: (4) Acute metabolic encephalopathy: (5) Hip fracture: QUALIFIERS: Encounter type: initial encounter Fracture type: closed Laterality: left Qualified Code(s): S72.002A - Fracture of unspecified part of neck of left femur, initial encounter for closed fracture (6) History of anoxic brain injury: (7) History of schizophrenia: (8) Schizoaffective disorder: QUALIFIERS: Schizoaffective disorder type: unspecified Qualified Code(s): F25.9 - Schizoaffective disorder, unspecified (9) Anxiety and depression: (10) Dementia: QUALIFIERS: Dementia type: unspecified type Dementia severity: unspecified severity Dementia behavioral or psychological symptom: with agitation Qualified Code(s): F03.911 - Unspecified dementia, unspecified severity, with agitation PLAN: Plan 63-year-old gentleman [place] of altered mental status, low BP, generalized weak and found to be hypotensive. He was agitated as per ER physician but calm in the ICU 1. Hypotension, suspicion of septic shock, exact focus unclear but possible underlying UTI, suspicion of acute on chronic adrenal insufficiency: Patient fever, Tmax 100.5 Fahrenheit, low BP, 83/39, 68/47 and was on norepinephrine for short time. Currently on empiric meropenem. History unobtainable regarding clinical symptoms to rule out UTI or pneumonia. Prelim urine culture is negative. Respiratory panel negative. Blood culture negative. Chest CTA negative for PE but shows minimal left pleural effusion/thickening, minimal atelectatic airspace in the left lower lobe with paraseptal emphysema. Therefore unlikely major pneumonic consolidation and patient also on room air with no hypoxia. Empirically on IV vancomycin and meropenem. ABG that revealed pH 7.42/pCO2 40.8 mmHg/PaO2 68 mmHg/HCO3 28 mmol/L on RA. ABG was essentially normal. CT abdomen pelvis shows diffuse thickening of bladder with suspicion of chronic bladder outlet obstruction versus cystitis with mild prostatomegaly. 08/20: Clinical concern of sepsis due to UTI: History regarding lower urinary tract symptoms remain unobtainable. Continue antimicrobial. Patient received IV fluid in ED as per sepsis protocol. 08/21: Blood culture positive of MRSA. On IV vancomycin and Zosyn. Urine culture prelim gram-positive quintin, alphahemolytic organism. Respiratory panel negative. 2. Acute Metabolic Encephalopathy in the setting of previously known Anoxic Brain Injury, Schizophrenia, Schizoaffective disorder, Depression with Anxiety and Dementia; of unclear type. CT shows no evidence of acute intracranial abnormality 08/20: Encephalopathy looks better Acute Comminuted Displaced Left Intertrochanteric Fracture incidentally noted on CT this admission and perioperative evaluation: Patient left hip is flexed, no movement. Incidentally CT abdomen shows acute commuted displaced left intertrochanteric fracture for which femur x-ray showed the same but reported nondisplaced. Orthopedic surgeon is consulted. Discussed with anesthesiologist. Twelve-lead EKG NSR at 60 bpm, QTc 400 ms. 2D echo ordered. I think patient is moderate perioperative risk for hip surgery. History of COPD, hypertension and dyslipidemia but no history of CAD. 08/20: Patient going for left hip surgery. 2D echo EF 70% no evidence of diastolic dysfunction. Mild to moderate aortic stenosis, mean AV gradient 20.1 mmHg. 08/21: Patient had left hip cephalomedullary fixation on 08/20. Operative area nontender,. No bruise or hematoma visible. 5. Possible acute on chronic adrenal insufficiency; on fludrocortisone and hydrocortisone twice daily: Give hydrocortisone 50 mg IV TID and check cortisol level. 08/21: Hydrocortisone was discontinued and changed to fludrocortisone home medication. 08/22: Serum sodium high 150. IV fluid D5W ordered. 6. Severe impacted fecalith and stercoral colitis from ascending to rectosigmoid region: Discussed with Dr. Pacheco. CT abdomen reviewed and shows impacted fecalith in the right side colon, stretching of rectosigmoid region and rectum. Soapsuds enema ordered by patient is going for surgery and afterwards, will need mineral oil, neostigmine after discontinuation of hydrocortisone (severe interaction), enema and possible colonoscopy 08/21: Discussed with the pharmacist and neostigmine dose was ordered. Discussed with the charge nurse and patient RN, flow for possible side effects like bradycardia, increased tracheobronchial and oral secretions. Hydrocortisone was discontinued yesterday because of drug-drug interaction. History of admission here from May 10, 2023 to May 14, 2023 for for acute hypoxic respiratory failure due to a combination of influenza A and aspiration pneumonia in setting of previously known schizophrenia complicated by toxic encephalopathy - Noted. 7. Essential hypertension; on propranolol twice daily - Hold scheduled antihypertensives because of hypotension 8. Hyperlipidemia; on atorvastatin - Resume statin as previous. 9. History of tobacco abuse with subsequent asthma/COPD; on as needed albuterol plus nicotine replacement - Noted with no evidence of acute flare at this time. Continue as needed albuterol and nicotine replacement as before. 10. Seizure disorder; on divalproex - Check valproic acid level and replace with IV levetiracetam as there is a significant potential adverse drug interaction with meropenem. 11. Chronic oral dysphagia - Noted with patient currently n.p.o. and with swallow study pending. 12. IBS; of constipation type on lactulose twice daily - Restart this agent when patient able to tolerate oral intake. 13. BPH; with history of obstructive uropathy on tamsulosin - Resume tamsulosin when patient is able to tolerate oral intake. CKD; stage II - Stable with serum creatinine of 1.19 mg/dL, BUN of 22 mg/dL and EGFR of 69 mL/min present on admission. Chronic pancytopenia with superimposed iron deficiency anemia - WBC of 7.7K, hemoglobin of 9.9 g/dL and platelet count of 114K present on admission. H&H 8.3/25.4%. Platelet count 201,000. WBC count normal 17. Chronicvitamin D deficiency - Maintain vitamin D supplement when patient can safely tolerate oral intake. 18. OA; with polyarthropathy - Stable. Give acetaminophen as outlined in #1. 19. DVT/GI prophylaxis - Enoxaparin 40 mg sq daily plus SCD's. Pantoprazole 40 mg IV daily. Total time of the visit including total time spent in counseling or coordination of care, (more than 50% of the total time, spent in obtaining medical information from nurses and other ancillary care providers ,explaining to the patient about labs, imaging, diagnosis and management of active complex medical conditions), , review of labs and imaging is 35 minutes. Clinical Impression(s) from Imaging Studies Chest X-Ray 08/18/24 19:06 IMPRESSION: NEGATIVE SINGLE VIEW OF THE CHEST. Reading Location: [place] [id number] Abdomen/Pelvis CT 08/19/24 00:30 IMPRESSION: Moderate osteopenia. Acute comminuted displaced left intertrochanteric fracture. Moderate gastroparesis. Moderate amount of fecal residue in the large bowel suggestive of constipation with associated mild stercoral colitis of the rectosigmoid colon. Mild chronic multifocal scarring of the kidneys. Distended, trabeculated bladder. Diffuse thickening of the bladder. Chronic bladder outlet obstruction versus cystitis. Mild prostatomegaly with midline defect of the prostate, probably from prior TURP. Mild bilateral fullness of the collecting systems, probably reflux from distended bladder. Bilateral scattered simple renal cysts are noted with the largest measuring 5 mm. Right renal nonobstructing stone measuring 5 mm. Reading Location: [id number] Brain CT 08/19/24 00:30 IMPRESSION: No CT evidence of an acute brain abnormality. Reading Location: [id number] Chest CTA 08/19/24 00:30 IMPRESSION: No demonstrated pulmonary embolism or arterial dissection. Minimal left pleural effusion/thickening. Minimal passive atelectatic airspace disease of the left lower lobe. Paraseptal emphysema. Moderate coronary artery calcifications. Multinodular thyroid goiter without tracheal narrowing or deviation. Minimal pericardial effusion. Reading Location: [id number] Venous Doppler Study 08/19/24 02:35 Interpretation Summary Deep veins of the lower extremities are bilaterally patent and compressible segmentally. There is no evidence of deep vein thrombosis on either side. Valvular competence appears intact within the proximal deep venous systems bilaterally. The great saphenous veins appear bilaterally patent and compressible segmentally. Veins were not imaged below the knee due to patient combativeness and lack of cooperation. Ordering Physician: Robert Huizar Referring Physician: Mani Balderas Performed By: Naty Parmar, HUEYCS, RVT Femur X-Ray 08/19/24 07:13 IMPRESSION: Intertrochanteric fracture, nondisplaced, suspected Reading Location: [facility] Echocardiogram 08/19/24 08:42 Interpretation Summary The estimated ejection fraction is 70 %. No evidence for diastolic dysfunction. Mild to moderate aortic stenosis. Ordering Physician: Marciano Guerin Referring Physician: MANI BALDERAS Performed By: Jacinda Cedeno RDCS Charges/Coding Addendum Addendum: Total time of the visit including total time spent in counseling or coordination of care, (more than 50% of the total time, spent in obtaining medical information from nurses and other ancillary care providers ,explaining to the patient about labs, imaging, diagnosis and management of active complex medical conditions), discussion with the nozzle cement sprayer helper, pharmacist regarding diffuse fecalith in colon and possible stercoral colitis, review of labs and imaging is 35 minutes. Visit Charges Inpatient E&M: [id number] [place] [id number]
[2024-08-21] MEDS: 0.9% Normal Saline (250mL Bag) 250 ML 15 ML IV (14:56)
[2024-08-21] MEDS: Meropenem 1 GM in 0.9% Normal Saline (100mL Bag) 100 ML IV ×2 (14:56→21:51)
--- NOTE | 2024-08-21 15:08 | NURSING ---
1200 soap suds enema given.
[2024-08-21] MEDS: Dextrose 5%-Water (1000mL Bag) 1,000 ML 75 ML IV (15:10)
[2024-08-21 16:10] LABS: Anion Gap 8 (5-15); BUN 26 mg/dL (4-19); BUN/Creat Ratio 25.7 RATIO (10-20); Calcium,Total 8.4 mg/dL (7.6-11.0); Carbon Dioxide 20.5 mmol/L (21.0-32.0); Chloride 115 mmol/L (98-108); Creatinine, Serum 1.01 mg/dL (0.70-1.20); EST Glomerular Filtration Rate 84 (>60); Glucose 94 mg/dL (70-99); Potassium 3.7 mmol/L (3.3-5.1); Sodium Level 143 mmol/L (133-145)
[2024-08-21 17:08] LABS: Absolute Neutrophil Count 3.9 X10^3/uL (2.0-7.7); Basophil# 0.01 X10^3/uL; Basophil% 0.2 % (0-1); Eosinophil# 0.16 X10^3/uL; Eosinophils% 2.9 % (0-5); Hematocrit 22.1 % (40-54); Hemoglobin 7.2 g/dL (13.0-16.5); Lymphocyte % 18.2 % (19-41); Mean Corp Hgb Conc 32.6 g/dL (32-36); Mean Corpuscular Hgb 30.4 pg (27.0-32.0); Mean Corpuscular Volume 93.2 fL (80-94); Mean Platelet Vol. 10.8 fl (6.2-12.0); Monocyte# 0.43 X10^3/uL; Monocyte% 7.8 % (0-10); NRBC Flagged by Analyzer 0 % (0-5); Neutrophil # 3.87 X10^3/uL (2.7-7.7); Neutrophil % 70.4 % (47-70); POSITIVE COUNT YES; Platelet Count 94 K/mm3 (150-450); RBC Distribution Width CV 12.6 % (11.6-14.6); RBC Distribution Width SD 42.8 fl (35.1-43.9); Red Blood Count 2.37 M/mm3 (4.6-6.2); White Blood Count 5.5 K/mm3 (4.4-11.0)
[2024-08-21] MEDS: Vancomycin IV 1,000 MG/200 ML BAG 200 MG IV (23:42)
[2024-08-22 03:41] VITALS: BP 110/60; PULSE 70; RESP 18; TEMP 36.8; O2SAT 95
[2024-08-22] MEDS: Dextrose 5%-Water (1000mL Bag) 1,000 ML 75 ML IV (04:25)
[2024-08-22 05:14] VITALS: BMI 23.2
[2024-08-22 06:16] LABS: Absolute Lymphocyte Count 0.86 X10^3/uL (0.83-4.51); Absolute Neutrophil Count 3.2 X10^3/uL (2.0-7.7); Basophil# 0.01 X10^3/uL; Basophil% 0.2 % (0-1); Eosinophil# 0.21 X10^3/uL; Eosinophils% 4.5 % (0-5); Hematocrit 24.4 % (40-54); Lymphocyte # 0.86 X10^3/ul (0.83-4.51); Lymphocyte % 18.6 % (19-41); Mean Corp Hgb Conc 32.8 g/dL (32-36); Mean Corpuscular Hgb 30.5 pg (27.0-32.0); Mean Corpuscular Volume 93.1 fL (80-94); Mean Platelet Vol. 10.7 fl (6.2-12.0); Monocyte# 0.37 X10^3/uL; NRBC Flagged by Analyzer 0 % (0-5); Neutrophil # 3.17 X10^3/uL (2.7-7.7); Neutrophil % 68.5 % (47-70); Platelet Count 101 K/mm3 (150-450); RBC Distribution Width CV 12.2 % (11.6-14.6); RBC Distribution Width SD 41.3 fl (35.1-43.9); Red Blood Count 2.62 M/mm3 (4.6-6.2); White Blood Count 4.6 K/mm3 (4.4-11.0)
[2024-08-22 06:35] LABS: Anion Gap 9 (5-15); BUN 20 mg/dL (4-19); BUN/Creat Ratio 21.3 RATIO (10-20); Calcium,Total 8.3 mg/dL (7.6-11.0); Carbon Dioxide 17.8 mmol/L (21.0-32.0); Chloride 112 mmol/L (98-108); Creatinine, Serum 0.93 mg/dL (0.70-1.20); EST Glomerular Filtration Rate 93 (>60); Estimated Creatinine Clearance 83.95 ml/min (50-250); Glucose 98 mg/dL (70-99); Potassium 3.6 mmol/L (3.3-5.1); Sodium Level 139 mmol/L (133-145)
[2024-08-22 06:59] VITALS: O2SAT 94
[2024-08-22 09:09] VITALS: BP 127/63; PULSE 67; RESP 16; TEMP 37.2; O2SAT 98
[2024-08-22] MEDS: levETIRAcetam IV 1,000 MG/100 ML BAG 400 MG IV ×2 (09:53→20:56)
[2024-08-22] MEDS: Meropenem 1 GM in 0.9% Normal Saline (100mL Bag) 100 ML IV ×2 (10:20→21:39)
[2024-08-22] MEDS: Pantoprazole Sodium 40 MG in 0.9% Normal Saline (100mL MB+) 100 ML 330 MG IV (10:20)
[2024-08-22] MEDS: Fludrocortisone Acetate 0.1 MG Tablet 0.05 MG PO (10:56)
[2024-08-22] MEDS: Senna/Docusate Sodium 1 Tablet 2 TABLET PO (10:56)
[2024-08-22] MEDS: Cholecalciferol (VIT D3) 25 MCG TABLET (1,000 UNITS) PO (10:56)
[2024-08-22] MEDS: Potassium Chloride Oral Tablet 20 MEQ 40 MEQ PO (11:03)
[2024-08-22] MEDS: Haloperidol Lactate 5 MG/ML Vial IV ×3 (11:03→22:17)
--- NOTE | 2024-08-22 12:30 | PN.CC_ITS ---
Objective Data Objective Data Vital Signs: Vital Signs Last response 3 Temperature 37.2 C 08/22/24 09:09 Temperature Source Oral 08/22/24 09:09 Pulse Rate 67 08/22/24 09:09 Pulse Strength Normal (2+) 08/22/24 09:00 Respiratory Rate 16 08/22/24 09:09 Respiratory Effort Normal 08/22/24 09:00 Respiratory Depth Normal 08/22/24 09:00 Respiratory Pattern Normal 08/22/24 09:00 Blood Pressure 127/63 H 08/22/24 09:09 Blood Pressure Mean 84 08/22/24 09:09 Blood Pressure Source Monitor 08/22/24 09:09 Blood Pressure Position Semi-Fowlers 08/22/24 09:09 Blood Pressure Location Right Arm 08/22/24 09:09 Baseline BP 130/63 08/20/24 14:39 Pulse Ox 98 08/22/24 09:09 Oxygen Delivery Method Nasal Cannula 08/22/24 09:09 Oxygen Flow Rate (L/min) 2 08/22/24 09:09 I&O: I&O Last 24 Hours 3 08/21/24 08/22/24 08/22/24 23:59 11:59 23:59 Intake Total 1387 / 1587 1857.50 / 1857.50 Output Total 1400 / 2375 Balance -13 / -788 1857.50 / 1857.50 I&O: Total Stay 3 08/18/24 18:28 thru 08/22/24 11:50 Intake Total 50990.91 Output Total 7675 Balance 3318.91 Current Meds Ordered / Administered: Current meds ordered / Administered 3 Generic Name Dose Route Start Last Admin Trade Name Freq PRN Reason Stop Dose Admin Acetaminophen 650 mg 08/21/24 10:54 08/21/24 17:38 Acetaminophen 325 Mg Tablet PO 650 mg Q6H PRN PRN Administration Pain 1-10 or Fever Albuterol Sulfate 2.5 mg 08/19/24 01:30 Albuterol 2.5 Mg/3 Ml Vial.Neb. INHALATION Q6H PRN PRN Sob &/Or Wheezing Apixaban 2.5 mg 08/21/24 07:00 08/21/24 21:54 Apixaban 2.5 Mg Tablet (Wch) PO 2.5 mg BID FRANCISCO Administration Aripiprazole 10 mg 08/22/24 10:00 Aripiprazole 10 Mg Tablet PO DAILY [facility] Protocol Aripiprazole 5 mg 08/22/24 22:00 Aripiprazole 5 Mg Tablet PO QHS [facility] Protocol Atropine Sulfate 1 mg 08/21/24 10:00 Atropine Sulfate 1 Mg/10 Ml Syringe IV X1 PRN HR < 40 WITH NEOSTIGMINE ADMIN Benztropine Mesylate 1 mg 08/22/24 10:00 Benztropine 2 Mg Tablet PO BID FR[facility]CO Bisacodyl 10 mg 08/19/24 01:30 Bisacodyl 10 Mg Suppository RC DAILY PRN PRN Constipation Calcium Carbonate 500 mg 08/20/24 17:00 08/22/24 10:52 Calcium Carbonate 500 Mg Tablet PO Not Given TIDCM [facility] Cholecalciferol 25 mcg 08/21/24 10:00 08/22/24 10:56 Cholecalciferol (Vit D3) 25 Mcg Tablet (1,000 Units) PO 25 mcg DAILY [facility] Administration Fludrocortisone Acetate 0.05 mg 08/21/24 08:00 08/22/24 10:56 Fludrocortisone Acetate 0.1 Mg Tablet PO 0.05 mg DAILY@0800 [facility] Administration Folic Acid 0.5 mg 08/23/24 08:00 Folic Acid 1 Mg Tablet PO BREAKFAST [facility] Haloperidol Lactate 0.5 mg 08/22/24 10:30 08/22/24 11:03 Haloperidol Lactate 5 Mg/Ml Vial IV 0.5 mg TID [facility] Administration Protocol Hydrocortisone 10 mg 08/22/24 10:00 Hydrocortisone 10 Mg Tablet PO BID [facility] Meropenem 1 gm/ Sodium 120 mls @ 97 mls/hr 08/19/24 10:00 08/22/24 11:50 Chloride IV Infused BID [facility] Infusion Pantoprazole Sodium 40 mg/ 100 mls @ 330 mls/hr 08/19/24 10:00 08/22/24 10:40 Sodium Chloride IV Infused Q24 [facility] Infusion Sodium Chloride 250 mls @ 15 mls/hr 08/19/24 01:31 08/21/24 15:24 IV 0 mls/hr .[id number] PRN Infusion Saline Flush Sodium Chloride 250 mls @ 15 mls/hr 08/19/24 01:31 IV .[id number] PRN Additional IVPB Infusion Levetiracetam 1,000 mg in 100 mls @ 400 mls/hr 08/19/24 10:00 08/22/24 09:53 IV 400 mls/hr Q12 [facility] Administration Vancomycin IV-PHARMACY TO DOSE 500 mls @ 250 mls/hr 08/21/24 10:00 1 each/ Sodium Chloride IV PRN PRN Rx to Dose Protocol Vancomycin HCl 1,000 mg in 200 mls @ 200 mls/hr 08/22/24 00:00 08/22/24 00:42 Vancomycin IV Infused Q12H [facility] Infusion Dextrose 1,000 mls @ 75 mls/hr 08/21/24 14:20 08/22/24 10:40 IV 08/22/24 16:59 75 mls/hr .[id number] [facility] Infusion Lactulose 20 gm 08/22/24 09:45 08/22/24 11:13 Lactulose 20 Gm/30 Ml Udc PO Not Given TID [facility] Melatonin 10 mg 08/22/24 22:00 Melatonin 10 Mg Tablet PO QHS [facility] Nicotine 7 mg 08/19/24 01:30 08/22/24 09:34 Nicotine 7 Mg Patch TD 7 mg DAILY [facility] Administration Non-Formulary Medication 5 mg 08/22/24 10:00 Hydrocortisone PO DAILY [facility] Oxycodone HCl 2.5 mg 08/20/24 13:54 Oxycodone 5 Mg Tablet PO Q4H PRN PRN Pain Score 4-10 Propranolol HCl 20 mg 08/22/24 10:00 Propranolol 10 Mg Tablet PO BID [facility] Protocol Senna/Docusate Sodium 2 tablet 08/19/24 11:35 08/22/24 10:56 Senna/Docusate Sodium 1 Tablet PO 2 tablet BID [facility] Administration Sodium Chloride 10 - 40 ml 08/19/24 01:31 08/20/24 21:49 0.9% Saline Lock 10 Ml Syringe IV 10 ml UD PRN Administration SALINE FLUSH Tamsulosin HCl 0.4 mg 08/22/24 17:30 Tamsulosin Hcl 0.4 Mg Capsule PO DAILY@1730 [facility] Vancomycin Protocol 1 lab 08/22/24 22:30 Vancomycin Trough/Random Due MC 08/23/24 00:30 DAILY [facility] Lab / Micro Data 08/22/24 06:08 08/22/24 05:07 Labs: Laboratory Results - last 24 hr 08/21/24 15:20: WBC Cancelled, Corrected WBC Cancelled, RBC Cancelled, Hgb Cancelled, Hct Cancelled, MCV Cancelled, MCH Cancelled, MCHC Cancelled, RDW Std Deviation Cancelled, RDW Coeff of Eyal Cancelled, Plt Count Cancelled, MPV Cancelled, Immature Gran % (Auto) Cancelled, Neut % (Auto) Cancelled, Lymph % (Auto) Cancelled, Jessamine % (Auto) Cancelled, Eos % (Auto) Cancelled, Baso % (Auto) Cancelled, Absolute Neuts (auto) Cancelled, Absolute Lymphs (auto) Cancelled, Total Counted Cancelled, Neutrophils % (Manual) Cancelled, Band Neutrophils % Cancelled, Lymphocytes % (Manual) Cancelled, Monocytes % (Manual) Cancelled, Eosinophils % (Manual) Cancelled, Basophils % (Manual) Cancelled, Metamyelocytes % Cancelled, Myelocytes % Cancelled, Promyelocytes % Cancelled, Blast Cells % Cancelled, Plasma Cell % (Manual) Cancelled, Other Cells % Cancelled, Nucleated RBC % Cancelled, Nucleated RBCs/100 WBC Cancelled, Differential Comment Cancelled, Diff Path Review Cancelled, Hypersegmented Neuts Cancelled, Atypical Lymphocytes Cancelled, Reactive Lymphocytes Cancelled, Smudge Cells Cancelled, Toxic Granulation Cancelled, Toxic Vacuolation Cancelled, Dohle Bodies Cancelled, Iftikhar Rods Cancelled, Platelet Estimate Cancelled, Plt Morphology Comment Cancelled, RBC Morphology Cancelled 08/21/24 15:20: RBC Morphology Cancelled, Polychromasia Cancelled, Hypochromasia Cancelled, Basophilic Stippling Cancelled, Anisocytosis Cancelled, Microcytosis Cancelled, Macrocytosis Cancelled, Spherocytes Cancelled, Sickle Cells Cancelled, Target Cells Cancelled, Tear Drop Cells Cancelled, Ovalocytes Cancelled, Stomatocytes Cancelled, Leung-Harlowton Bodies Cancelled, Kesha Cells Cancelled, Bite Cells Cancelled, Crenated Cell Cancelled, Acanthocytes (Spur) Cancelled, Rouleaux Cancelled, Schistocytes Cancelled, Sodium 143, Potassium 3.7, Chloride 115 H, Carbon Dioxide 20.5 L, Anion Gap 8, BUN 26 H, Creatinine 1.01, Estim Creat Clear Calc 77.30, Est GFR (MDRD) Non-Af 84, BUN/Creatinine Ratio 25.7 H, Glucose 94, Calcium 8.4 08/21/24 16:33: WBC 5.5, RBC 2.37 L, Hgb 7.2 L, Hct 22.1 L, MCV 93.2, MCH 30.4, MCHC 32.6, RDW Std Deviation 42.8, RDW Coeff of Eyal 12.6, Plt Count 94 L, MPV 10.8, Immature Gran % (Auto) 0.500, Neut % (Auto) 70.4 H, Lymph % (Auto) 18.2 L, Jessamine % (Auto) 7.8, Eos % (Auto) 2.9, Baso % (Auto) 0.2, Absolute Neuts (auto) 3.9, Absolute Lymphs (auto) 1.00, Nucleated RBC % 0 08/22/24 05:07: WBC Cancelled, Corrected WBC Cancelled, RBC Cancelled, Hgb Cancelled, Hct Cancelled, MCV Cancelled, MCH Cancelled, MCHC Cancelled, RDW Std Deviation Cancelled, RDW Coeff of Eyal Cancelled, Plt Count Cancelled, MPV Cancelled, Immature Gran % (Auto) Cancelled, Neut % (Auto) Cancelled, Lymph % (Auto) Cancelled, Jessamine % (Auto) Cancelled, Eos % (Auto) Cancelled, Baso % (Auto) Cancelled, Absolute Neuts (auto) Cancelled, Absolute Lymphs (auto) Cancelled, Total Counted Cancelled, Neutrophils % (Manual) Cancelled, Band Neutrophils % Cancelled, Lymphocytes % (Manual) Cancelled, Monocytes % (Manual) Cancelled, Eosinophils % (Manual) Cancelled, Basophils % (Manual) Cancelled, Metamyelocytes % Cancelled, Myelocytes % Cancelled, Promyelocytes % Cancelled, Blast Cells % Cancelled, Plasma Cell % (Manual) Cancelled, Other Cells % Cancelled, Nucleated RBC % Cancelled, Nucleated RBCs/100 WBC Cancelled, Differential Comment Cancelled, Diff Path Review Cancelled, Hypersegmented Neuts Cancelled, Atypical Lymphocytes Cancelled, Reactive Lymphocytes Cancelled, Smudge Cells Cancelled, Toxic Granulation Cancelled, Toxic Vacuolation Cancelled, Dohle Bodies Cancelled, Iftikhar Rods Cancelled, Platelet Estimate Cancelled, Plt Morphology Comment Cancelled, RBC Morphology Cancelled 08/22/24 05:07: RBC Morphology Cancelled, Polychromasia Cancelled, Hypochromasia Cancelled, Basophilic Stippling Cancelled, Anisocytosis Cancelled, Microcytosis Cancelled, Macrocytosis Cancelled, Spherocytes Cancelled, Sickle Cells Cancelled, Target Cells Cancelled, Tear Drop Cells Cancelled, Ovalocytes Cancelled, Stomatocytes Cancelled, Leung-Harlowton Bodies Cancelled, Kesha Cells Cancelled, Bite Cells Cancelled, Crenated Cell Cancelled, Acanthocytes (Spur) Cancelled, Rouleaux Cancelled, Schistocytes Cancelled, Sodium 139, Potassium 3.6, Chloride 112 H, Carbon Dioxide 17.8 L, Anion Gap 9, BUN 20 H, Creatinine 0.93, Estim Creat Clear Calc 83.95, Est GFR (MDRD) Non-Af 93, BUN/Creatinine Ratio 21.3 H, Glucose 98, Calcium 8.3 08/22/24 06:08: WBC 4.6, RBC 2.62 L, Hgb 8.0 L, Hct 24.4 L, MCV 93.1, MCH 30.5, MCHC 32.8, RDW Std Deviation 41.3, RDW Coeff of Eyal 12.2, Plt Count 101 L, MPV 10.7, Immature Gran % (Auto) 0.200, Neut % (Auto) 68.5, Lymph % (Auto) 18.6 L, Jessamine % (Auto) 8.0, Eos % (Auto) 4.5, Baso % (Auto) 0.2, Absolute Neuts (auto) 3.2, Absolute Lymphs (auto) 0.86, Nucleated RBC % 0 Micro: Microbiology 08/18/24 18:59 Urine, Catheterized Urine Culture - Preliminary Gram positive quintin Aerococcus urinae 08/21/24 15:11 Nasal Secretion MRSA (PCR) - Final Assessment and Plan . Assessment and plan: IMPRESSIONS: 1. Sepsis Clinical concern for underlying UTI as precipitating etiology for the patient's hypotension and altered mental status. - s/p sepsis bundle - Continue antimicrobials, pending culture results. - continue stress dose steroids to once daily. - Once the patient's hydrocortisone has been discontinued, recommend resuming home Florinef. 2. Encephalopathy Improved. Most likely metabolic in etiology in the setting of #1. CT head was unremarkable. - patient does have a known history of schizoaffective disorder along with underlying dementia. - communication affected by baseline limitations 3. Left intertrochanteric fracture - s/p ORIF - wound looks good - PT proceeding per protocol 4. Known history of adrenal insufficiency Given the patient's overall clinical stability, we will plan to decrease his hydrocortisone to once daily. - once stress dose steroids are discontinued, the patient's Florinef will need to be resumed. 5. History of COPD/seizure disorder/chronic kidney disease/BPH/hypertension Complicates care, management, recovery and prognosis. Continue Keppra as ordered. Critical Care Time: 50 minutes The entirety of this encounter was done via Telemedicine Physical Exam Const alert General Appearance: uncooperative and contractures Orientation / Consciousness: awake Exam Limitations: behavioral limitations HEENT normocephalic Head and Scalp: normal to inspection Nose: mucous membranes and turbinates abnormal Eyes General Eye: normal appearance of both eyes EOM: EOM abnormal Neck full ROM Chest inspection of chest normal Resp normal respiratory effort Cardio regular rate Neuro Neuro Narrative: Tardive dyskinesia movements of tongue Speech: speech abnormal Psych Attitude: paranoid Activity / Motor Behavior: psychomotor slowing Thought Process: incoherent Subjective Subjective Events reviewed. No major changes noted since last seen. He remains dysarthric difficult to understand but can communicate some needs. Hemodynamically stable.
[2024-08-22] MEDS: ARIPiprazole 10 MG Tablet PO (12:46)
[2024-08-22] MEDS: Benztropine 2 MG Tablet 1 MG PO ×2 (12:50→22:22)
[2024-08-22] MEDS: Propranolol 10 MG Tablet 20 MG PO ×2 (12:51→22:22)
[2024-08-22] MEDS: APIXABAN 2.5 MG TABLET (WCH) PO ×2 (12:53→22:38)
[2024-08-22] MEDS: Vancomycin IV 1,000 MG/200 ML BAG 200 MG IV (12:58)
[2024-08-22] MEDS: Calcium Carbonate 500 MG Tablet PO ×2 (12:59→16:55)
[2024-08-22] MEDS: oxyCODONE 5 MG Tablet 2.5 MG PO (13:05)
[2024-08-22] MEDS: Acetaminophen 325 MG Tablet 650 MG PO (13:06)
--- NOTE | 2024-08-22 13:49 | PN.HOSP_ITS ---
Reason for Visit Reason for Visit: Diagnoses Sepsis, unspecified organism (08/19/24) Unspecified dementia, unspecified severity, with agitation (08/19/24) Schizoaffective disorder, unspecified (08/19/24) Depression, unspecified (08/19/24) Anxiety disorder, unspecified (08/19/24) Metabolic encephalopathy (08/19/24) Acute cystitis without hematuria (08/19/24) Other abnormalities of breathing (08/19/24) Severe sepsis with septic shock (08/19/24) Fracture of unspecified part of neck of left femur, initial encounter for closed fracture (08/19/24) Displaced intertrochanteric fracture of left femur, initial encounter for closed fracture (08/19/24) Personal history of other mental and behavioral disorders (08/19/24) Personal history of other diseases of the nervous system and sense organs (08/19/24) Objective Data Objective Data Vital Signs: Vital Signs Temp Pulse Resp BP Pulse Ox O2 Del Method O2 Flow Rate 98.9 F 67 16 127/63 H 98 Nasal Cannula 2 08/22/24 09:09 08/22/24 09:09 08/22/24 09:09 08/22/24 09:09 08/22/24 09:09 08/22/24 09:09 08/22/24 09:09 Oxygen Flow Rate (L/min) 2 Oxygen Delivery Method Nasal Cannula Weight: 162 lb 4.163 oz Body Mass Index (BMI) 23.2 Intake & Output: Intake and Output for Last 24 Hours 08/20/24 08/21/24 08/22/24 23:59 23:59 23:59 Intake Total 1056.5 / 1056.5 1587 / 1587 2130.00 / 2130.00 Output Total 2100 / 2350 2375 / 2375 Balance -1043.5 / -1293.5 -788 / -788 2130.00 / 2130.00 Lab / Micro Data 08/22/24 06:08 08/22/24 05:07 Labs: Laboratory Results - last 24 hr Sodium 143, Potassium 3.7, Chloride 115 H, Carbon Dioxide 20.5 L, Anion Gap 8, B UN 26 H, Creatinine 1.01, Estim Creat Clear Calc 77.30, Est GFR (MDRD) Non-Af 84, BUN/Creatinine Ratio 25.7 H, Glucose 94, Calcium 8.4 08/21/24 16:33: WBC 5.5, RBC 2.37 L, Hgb 7.2 L, Hct 22.1 L, MCV 93.2, MCH 30.4, MCHC 32.6, RDW Std Deviation 42.8, RDW Coeff of Eyal 12.6, Plt Count 94 L, MPV 10.8, Immature Gran % (Auto) 0.500, Neut % (Auto) 70.4 H, Lymph % (Auto) 18.2 L, [place] % (Auto) 7.8, Eos % (Auto) 2.9, Baso % (Auto) 0.2, Absolute Neuts (auto) 3.9, Absolute Lymphs (auto) 1.00, Nucleated RBC % 0 , Sodium 139, Potassium 3.6, Chloride 112 H, Carbon Dioxide 17.8 L, Anion Gap 9, BUN 20 H, Creatinine 0.93, Estim Creat Clear Calc 83.95, Est GFR (MDRD) Non-Af 93, BUN/Creatinine Ratio 21.3 H, Glucose 98, Calcium 8.3 08/22/24 06:08: WBC 4.6, RBC 2.62 L, Hgb 8.0 L, Hct 24.4 L, MCV 93.1, MCH 30.5, MCHC 32.8, RDW Std Deviation 41.3, RDW Coeff of Eyal 12.2, Plt Count 101 L, MPV 10.7, Immature Gran % (Auto) 0.200, Neut % (Auto) 68.5, Lymph % (Auto) 18.6 L, [place] % (Auto) 8.0, Eos % (Auto) 4.5, Baso % (Auto) 0.2, Absolute Neuts (auto) 3.2, Absolute Lymphs (auto) 0.86, Nucleated RBC % 0 Micro: Microbiology 08/18/24 18:59 Urine, Catheterized Urine Culture - Preliminary Gram positive quintin Aerococcus urinae 08/21/24 15:11 Nasal Secretion MRSA (PCR) - Final 08/18/24 18:50 Blood Culture (Wb) - Anticubital Right Blood Culture - Preliminary No growth in 48 hours. 08/18/24 18:54 Blood Culture (Wb) - Anticubital Left Blood Culture - Final Meth. resistant Staph. aureus 08/19/24 01:35 Mucosa - Nasopharyngeal Respiratory Panel (PCR) - Final Physical Exam Narrative Seen and examined. Her mental status slightly better but still has garbled speech. Nursing staff has a concern that he has pain but he is more agitated and restless. Antipsychotic medications resumed. I could not much understand his speech but he states no burning in urine. He could not tell me when he was last BM but CT abdomen shows fecaliths and stercoral colitis from ascending to rectosigmoid region. He denies abdominal pain and is not tender but history complete remains unobtainable. Patient was admitted with hypotension generalized weakness and altered mental status possible due to septic shock. Unclear how he fractured his left hip but he complained of left hip and not able to flex. Mild low-grade grade fever. Could not tell about dysuria or other symptoms. Physical exam General: Awake, orientation cannot be ascertained, agitated and restless HEENT: Atraumatic, PERRLA, EOMI, Normocephalic. Oral: No Gingival or Mucosal Lesions/ Ulcerations Neck: Supple, No JVD, Negative Carotid Bruits Chest wall/Lungs: Air entry diminished in bilateral lung bases. No crepitation/rhonchi Cardiovascular: Regular rate and rhythm, Normal S1,S2, systolic murmur Abdomen: firm lump palpable in the right paraumbilical/lumbar region, fecaloma, constipation. Bowel Sounds sluggish, soft, Non Tender, Non-Distended : Mills catheter no renal angle tenderness. No suprapubic tenderness. Extremities: No edema, Capillary Refill Less than 3 Seconds Skin: No rashes, No breakdown Musculoskeletal: Tenderness over left hip, flexed deformity. No Tenderness to Palpation of other joints or Extremities Neurological: Does not follow command therefore complete neuroexam unobtainable. No obvious focal lateralizing sign Psych/Mental Status: Flat affect, schizophrenia Assessment & Plan Assessment/Plan (1) Sepsis: QUALIFIERS: Sepsis type: sepsis due to unspecified organism S epsis acute organ dysfunction status: with acute organ dysfunction Severe sepsis acute organ dysfunction type: encephalopathy Severe sepsis shock status: with septic shock Qualified Code(s): A41.9 - Sepsis, unspecified organism; R65.21 - Severe sepsis with septic shock; G93.41 - Metabolic encephalopathy (2) Acute cystitis without hematuria: (3) Acute respiratory insufficiency: (4) Acute metabolic encephalopathy: (5) Hip fracture: QUALIFIERS: Encounter type: initial encounter Fracture type: c losed Laterality: left Qualified Code(s): S72.002A - Fracture of unspecified part of neck of left femur, initial encounter for closed fracture (6) History of anoxic brain injury: (7) History of schizophrenia: (8) Schizoaffective disorder: QUALIFIERS: Schizoaffective disorder type: unspecified Qualified Code(s): F25.9 - Schizoaffective disorder, unspecified (9) Anxiety and depression: (10) Dementia: QUALIFIERS: Dementia type: unspecified type Dementia severity: u nspecified severity Dementia behavioral or psychological symptom: with agitation Qualified Code(s): F03.911 - Unspecified dementia, unspecified severity, with agitation PLAN: Plan 63-year-old gentleman [place] of altered mental status, low BP, generalized weak and found to be hypotensive. He was agitated as per ER physician but calm in the ICU 1. Hypotension, possible septic shock due to MRSA bacteremia, exact focus unclear but possible underlying UTI, suspicion of acute on chronic adrenal insufficiency: Patient fever, Tmax 100.5 Fahrenheit, low BP, 83/39, 68/47 and was on norepinephrine for short time. Currently on empiric meropenem. History unobtainable regarding clinical symptoms to rule out UTI or pneumonia. Prelim urine culture is negative. Respiratory panel negative. Blood culture negative. Chest CTA negative for PE but shows minimal left pleural effusion/thickening, minimal atelectatic airspace in the left lower lobe with paraseptal emphysema. Therefore unlikely major pneumonic consolidation and patient also on room air with no hypoxia. Empirically on IV vancomycin and meropenem. ABG that revealed pH 7.42/pCO2 40.8 mmHg/PaO2 68 mmHg/HCO3 28 mmol/L on RA. ABG was essentially normal. CT abdomen pelvis shows diffuse thickening of bladder with suspicion of chronic bladder outlet obstruction versus cystitis with mild prostatomegaly. 08/20: Clinical concern of sepsis due to UTI: History regarding lower urinary tract symptoms remain unobtainable. Continue antimicrobial. Patient received IV fluid in ED as per sepsis protocol. 08/21: Blood culture positive of MRSA. On IV vancomycin and Zosyn. Urine culture prelim gram-positive quintin, alphahemolytic organism. Respiratory panel negative. 08/22: Discussed with the mold filling operator regarding vegetation in the echo, TTE although not reported officially in the report. Dr. Cardenas advised to remind Dr. Hills tomorrow to have a second look on the echo images and he will also give him signout. Urine culture shows 2 organisms GPR and Aerococcus urinae 10,000-25,000 colonies, contamination/colonization. Empirically he is on IV vancomycin and meropenem. ID follow-up tomorrow a.m. 2. Acute Metabolic Encephalopathy in the setting of previously known Anoxic Brain Injury, Schizophrenia, Schizoaffective disorder, Depression with Anxiety and Dementia; of unclear type. CT shows no evidence of acute intracranial abnormality 08/20: Encephalopathy looks better 08/21: Patient was put back on his antipsychotic medications including oral aripiprazole, benztropine. Discussed with the pharmacist. Hold divalproex as patient already on IV Keppra. [place] level normal. Follow-up with the nephrology whether safe to resume lithium. Try to minimize oral medication as patient has severe constipation with fecalith. Acute Comminuted Displaced Left Intertrochanteric Fracture incidentally noted on CT this admission and perioperative evaluation: Patient left hip is flexed, no movement. Incidentally CT abdomen shows acute commuted displaced left intertrochanteric fracture for which femur x-ray showed the same but reported nondisplaced. Orthopedic surgeon is consulted. Discussed with anesthesiologist. Twelve-lead EKG NSR at 60 bpm, QTc 400 ms. 2D echo ordered. I think patient is moderate perioperative risk for hip surgery. History of COPD, hypertension and dyslipidemia but no history of CAD. 08/20: Patient going for left hip surgery. 2D echo EF 70% no evidence of diastolic dysfunction. Mild to moderate aortic stenosis, mean AV gradient 20.1 mmHg. 08/21: Patient had left hip cephalomedullary fixation on 08/20. Operative area nontender,. No bruise or hematoma visible. 08/22: Patient nurse was saying that he is having pain. Unclear as he might be agitated from psychotic history. IV Toradol ordered. Try to minimize opioids. 5. Possible acute on chronic adrenal insufficiency; on fludrocortisone and hydrocortisone twice daily: Give hydrocortisone 50 mg IV TID and check cortisol level. 08/21: Hydrocortisone was discontinued and changed to fludrocortisone home medication. 08/22: Serum sodium was high treated with IV fluid D5W and sodium improved to 139. 6. Severe impacted fecalith and stercoral colitis from ascending to rectosigmoid region: Discussed with Dr. Pacheco. CT abdomen reviewed and shows impacted fecalith in the right side colon, stretching of rectosigmoid region and rectum. Soapsuds enema ordered by patient is going for surgery and afterwards, will need mineral oil, neostigmine after discontinuation of hydrocortisone (severe interaction), enema and possible colonoscopy 08/21: Discussed with the pharmacist and neostigmine dose was ordered. Discussed with the charge nurse and patient RN, flow for possible side effects like bradycardia, increased tracheobronchial and oral secretions. Hydrocortisone was discontinued yesterday because of drug-drug interaction. 08/22: Patient had 2 bowel movement 1 was semisolid and second was liquid probably soapsuds enema. Continue the regimen including lactulose, senna S, Dulcolax suppository and soapsuds enema. Discussed with coupon manifest clerk History of admission here from May 10, 2023 to May 14, 2023 for for acute hypoxic respiratory failure due to a combination of influenza A and aspiration pneumonia in setting of previously known schizophrenia complicated by toxic encephalopathy - Noted. 7. Essential hypertension; on propranolol twice daily - Hold scheduled antihypertensives because of hypotension 8. Hyperlipidemia; on atorvastatin - Resume statin as previous. 9. History of tobacco abuse with subsequent asthma/COPD; on as needed albuterol plus nicotine replacement - Noted with no evidence of acute flare at this time. Continue as needed albuterol and nicotine replacement as before. 10. Seizure disorder; on divalproex - Check valproic acid level and replace with IV levetiracetam as there is a significant potential adverse drug interaction with meropenem. 11. Chronic oral dysphagia - Noted with patient currently n.p.o. and with swallow study pending. 12. IBS; of constipation type on lactulose twice daily - Restart this agent when patient able to tolerate oral intake. 13. BPH; with history of obstructive uropathy on tamsulosin - Resume tamsulosin when patient is able to tolerate oral intake. CKD; stage II - Stable with serum creatinine of 1.19 mg/dL, BUN of 22 mg/dL and EGFR of 69 mL/min present on admission. Chronic pancytopenia with superimposed iron deficiency anemia - WBC of 7.7K, hemoglobin of 9.9 g/dL and platelet count of 114K present on admission. H&H 8.3/25.4%. Platelet count 201,000. WBC count normal 17. Chronicvitamin D deficiency - Maintain vitamin D supplement when patient can safely tolerate oral intake. 18. OA; with polyarthropathy - Stable. Give acetaminophen as outlined in #1. 19. DVT/GI prophylaxis - Enoxaparin 40 mg sq daily plus SCD's. Pantoprazole 40 mg IV daily. Total time of the visit including total time spent in counseling or coordination of care, (more than 50% of the total time, spent in obtaining medical information from nurses and other ancillary care providers ,explaining to the patient about labs, imaging, diagnosis and management of active complex medical conditions), , review of labs and imaging is 35 minutes. Clinical Impression(s) from Imaging Studies Chest X-Ray 08/18/24 19:06 IMPRESSION: NEGATIVE SINGLE VIEW OF THE CHEST. Reading Location: [id number] Abdomen/Pelvis CT 08/19/24 00:30 IMPRESSION: Moderate osteopenia. Acute comminuted displaced left intertrochanteric fracture. Moderate gastroparesis. Moderate amount of fecal residue in the large bowel suggestive of constipation with associated mild stercoral colitis of the rectosigmoid colon. Mild chronic multifocal scarring of the kidneys. Distended, trabeculated bladder. Diffuse thickening of the bladder. Chronic bladder outlet obstruction versus cystitis. Mild prostatomegaly with midline defect of the prostate, probably from prior TURP. Mild bilateral fullness of the collecting systems, probably reflux from distended bladder. Bilateral scattered simple renal cysts are noted with the largest measuring 5 mm. Right renal nonobstructing stone measuring 5 mm. Reading Location: [facility] Brain CT 08/19/24 00:30 IMPRESSION: No CT evidence of an acute brain abnormality. Reading Location: [facility] Chest CTA 08/19/24 00:30 IMPRESSION: No demonstrated pulmonary embolism or arterial dissection. Minimal left pleural effusion/thickening. Minimal passive atelectatic airspace disease of the left lower lobe. Paraseptal emphysema. Moderate coronary artery calcifications. Multinodular thyroid goiter without tracheal narrowing or deviation. Minimal pericardial effusion. [facility] Venous Doppler Study 08/19/24 02:35 Interpretation Summary Deep veins of the lower extremities are bilaterally patent and compressible segmentally. There is no evidence of deep vein thrombosis on either side. Valvular competence appears intact within the proximal deep venous systems bilaterally. The great saphenous veins appear bilaterally patent and compressible segmentally. Veins were not imaged below the knee due to patient combativeness and lack of cooperation. Ordering Physician: Robert Huizar Referring Physician: Mani Balderas Performed By: Naty Parmar RDCS, RVT Femur X-Ray 08/19/24 07:13 IMPRESSION: Intertrochanteric fracture, nondisplaced, suspected Reading Location: [facility] Echocardiogram 08/19/24 08:42 Interpretation Summary The estimated ejection fraction is 70 %. No evidence for diastolic dysfunction. Mild to moderate aortic stenosis. Ordering Physician: Marciano Guerin Referring Physician: MANI BALDERAS Performed By: Jacinda Cedeno RDCS Charges/Coding Addendum Addendum: Total time of the visit including total time spent in counseling or coordination of care, (more than 50% of the total time, spent in obtaining medical information from nurses and other ancillary care providers ,explaining to the patient about labs, imaging, diagnosis and management of active complex medical conditions), discussion with the pharmacy and the coupon manifest clerk, review of labs and imaging is 35 minutes. Visit Charges Inpatient E&M: 34765 Subs Hosp L3
[2024-08-22 14:53] VITALS: BP 114/57; PULSE 67; RESP 16; TEMP 37.2; O2SAT 94
[2024-08-22] MEDS: Lactulose 20 GM/30 ML UDC PO (14:57)
[2024-08-22] MEDS: 0.9% Saline Lock 10 ML Syringe IV ×3 (15:04→22:18)
[2024-08-22] MEDS: Ketorolac 15 MG/ML Vial IV (15:05)
[2024-08-22] MEDS: Bisacodyl 5 MG Tablet 20 MG PO (16:46)
[2024-08-22] MEDS: Hydrocortisone 10 MG Tablet PO (16:51)
[2024-08-22] MEDS: Tamsulosin HCl 0.4 MG Capsule PO (16:53)
[2024-08-22] MEDS: Electrolyte Solution/Peg's 4000 ML PO (17:13)
[2024-08-22 22:10] VITALS: BP 114/60; PULSE 68; RESP 20; TEMP 37; O2SAT 95
[2024-08-22] MEDS: MELATONIN 10 MG TABLET PO (22:20)
[2024-08-22] MEDS: ARIPiprazole 5 MG Tablet PO (22:21)
[2024-08-23] VITALS (12 sets, daily range): BP systolic 115–130; BP diastolic 49–78; PULSE 57–67; RESP 12–18; TEMP 36.1–37.5; O2SAT 94–100; BMI 22.9
[2024-08-23 00:14] LABS: Vancomycin, Trough Level 18.2 ug/mL (5.0-15.0)
[2024-08-23] MEDS: Vancomycin IV 1,000 MG/200 ML BAG 200 MG IV ×2 (00:26→17:18)
--- NOTE | 2024-08-23 00:39 | PCM.RX.CS ---
Consult Antibiotic Management Pharmacy has been consulted to manage selected antibiotic: Vancomycin Type of Intervention Type of Consult: Follow-up Suspected Infection Suspected Infection: Bacteremia Labs Labs: Sodium 139 mmol/L (133-145) 08/22/24 05:07 Potassium 3.6 mmol/L (3.3-5.1) 08/22/24 05:07 Chloride 112 mmol/L (98-108) H 08/22/24 05:07 Carbon Dioxide 17.8 mmol/L (21.0-32.0) L 08/22/24 05:07 Anion Gap 9 (5-15) 08/22/24 05:07 BUN 20 mg/dL (4-19) H 08/22/24 05:07 Creatinine 0.93 mg/dL (0.70-1.20) 08/22/24 05:07 Est GFR (MDRD) Non-Af 93 (>60) 08/22/24 05:07 BUN/Creatinine Ratio 21.3 RATIO (10-20) H 08/22/24 05:07 Glucose 98 mg/dL (70-99) 08/22/24 05:07 Vancomycin Trough 18.2 ug/mL (5.0-15.0) H 08/22/24 23:23 Microbiology Microbiology: Microbiology 08/18/24 18:59 Urine, Catheterized Urine Culture - Preliminary Gram positive quintin Aerococcus urinae 08/21/24 15:11 Nasal Secretion MRSA (PCR) - Final 08/18/24 18:50 Blood Culture (Wb) - Anticubital Right Blood Culture - Preliminary No growth in 48 hours. 08/18/24 18:54 Blood Culture (Wb) - Anticubital Left Blood Culture - Final Meth. resistant Staph. aureus 08/19/24 01:35 Mucosa - Nasopharyngeal Respiratory Panel (PCR) - Final Dosing Weight Weight used for dosin.6 kg Estimated Creatinine Clearance Estimated Creatinine Clearance: 84 Goal Trough Goal Trough: 15-20 mcg/mL Pharmacy Plan for Drug Dosing Pharmacy Plan for Drug Dosing: Vancomycin trough level of 18.2, drawn 10.5hrs post-dose, was within the target range of 15-20. Will continue dosing at 1000mg q12h, and will draw another trough level in two days. Pharmacy Service will continue to monitor and adjust dosing as required. Follow-Up Labs Follow-Up Labs: Trough: Vancomycin Date/Time Labs Ordered Labs to be done on [date and time ordered]: 08/24/24 @4559
[2024-08-23] MEDS: 0.9% Saline Lock 10 ML Syringe IV ×2 (05:06→11:28)
[2024-08-23] MEDS: Haloperidol Lactate 5 MG/ML Vial IV ×2 (05:06→23:06)
[2024-08-23 05:50] LABS: Absolute Lymphocyte Count 0.76 X10^3/uL (0.83-4.51); Absolute Neutrophil Count 2.2 X10^3/uL (2.0-7.7); Basophil# 0.01 X10^3/uL; Basophil% 0.3 % (0-1); Eosinophil# 0.27 X10^3/uL; Eosinophils% 7.8 % (0-5); Hematocrit 23.7 % (40-54); Hemoglobin 7.7 g/dL (13.0-16.5); Lymphocyte # 0.76 X10^3/ul (0.83-4.51); Lymphocyte % 21.9 % (19-41); Mean Corp Hgb Conc 32.5 g/dL (32-36); Mean Corpuscular Hgb 30.1 pg (27.0-32.0); Mean Corpuscular Volume 92.6 fL (80-94); Mean Platelet Vol. 10.8 fl (6.2-12.0); Monocyte# 0.22 X10^3/uL; Monocyte% 6.3 % (0-10); NRBC Flagged by Analyzer 0 % (0-5); Neutrophil % 63.4 % (47-70); POSITIVE COUNT YES; Platelet Count 99 K/mm3 (150-450); RBC Distribution Width SD 41.1 fl (35.1-43.9); Red Blood Count 2.56 M/mm3 (4.6-6.2); White Blood Count 3.5 K/mm3 (4.4-11.0)
[2024-08-23 05:55] LABS: Differential Indicated SCAN CRITERIA MET
--- NOTE | 2024-08-23 06:18 | NURSING ---
Danitza from [facility] called. Update provided and questions answered.
[2024-08-23 06:28] LABS: Anion Gap 9 (5-15); BUN 18 mg/dL (4-19); BUN/Creat Ratio 21.5 RATIO (10-20); Calcium,Total 8.4 mg/dL (7.6-11.0); Carbon Dioxide 19.7 mmol/L (21.0-32.0); Chloride 114 mmol/L (98-108); Creatinine, Serum 0.82 mg/dL (0.70-1.20); EST Glomerular Filtration Rate 99 (>60); Estimated Creatinine Clearance 94.95 ml/min (50-250); Glucose 90 mg/dL (70-99); Potassium 3.1 mmol/L (3.3-5.1); Sodium Level 143 mmol/L (133-145)
[2024-08-23 06:51] LABS: Differential Comment SCANNED
[2024-08-23 06:52] LABS: Platelet Estimate MOD DEC (ADEQ)
--- NOTE | 2024-08-23 10:09 | PCM.PN.HOSP ---
Reason for Visit Reason for Visit: Diagnoses Sepsis, unspecified organism (08/19/24) Unspecified dementia, unspecified severity, with agitation (08/19/24) Schizoaffective disorder, unspecified (08/19/24) Depression, unspecified (08/19/24) Anxiety disorder, unspecified (08/19/24) Metabolic encephalopathy (08/19/24) Acute cystitis without hematuria (08/19/24) Other abnormalities of breathing (08/19/24) Severe sepsis with septic shock (08/19/24) Fracture of unspecified part of neck of left femur, initial encounter for closed fracture (08/19/24) Displaced intertrochanteric fracture of left femur, initial encounter for closed fracture (08/19/24) Personal history of other mental and behavioral disorders (08/19/24) Personal history of other diseases of the nervous system and sense organs (08/19/24) Subjective Subjective Saw patient about this morning. Patient was laying back in bed and mildly agitated appearing. He did not make any eye contact with me or answer any questions appropriately for me. Objective Data Objective Data Vital Signs: Vital Signs Temp Pulse Resp BP Pulse Ox O2 Del Method O2 Flow Rate 98.1 F 62 18 115/61 98 Room Air 2 08/23/24 05:00 08/23/24 05:00 08/23/24 05:00 08/23/24 05:00 08/23/24 05:00 08/23/24 05:00 08/22/24 09:09 Oxygen Flow Rate (L/min) 2 Oxygen Delivery Method Room Air Weight: 72.8 kg Body Mass Index (BMI) 22.9 Intake & Output: Intake and Output for Last 24 Hours 08/21/24 08/22/24 08/23/24 23:59 23:59 23:59 Intake Total 1587 / 1587 3753.75 / 3753.75 443 / 443 Output Total 2375 / 2375 Balance -788 / -788 3753.75 / 3753.75 443 / 443 Lab / Micro Data 08/23/24 05:05 08/23/24 05:05 Labs: Laboratory Results - last 24 hr 08/22/24 23:23: Vancomycin Trough 18.2 H 08/23/24 05:05: WBC 3.5 L, RBC 2.56 L, Hgb 7.7 L, Hct 23.7 L, MCV 92.6, MCH 30.1, MCHC 32.5, RDW Std Deviation 41.1, RDW Coeff of Eyal 12.0, Plt Count 99 L, MPV 10.8, Immature Gran % (Auto) 0.300, Neut % (Auto) 63.4, Lymph % (Auto) 21.9, [place] % (Auto) 6.3, Eos % (Auto) 7.8 H, Baso % (Auto) 0.3, Absolute Neuts (auto) 2.2, Absolute Lymphs (auto) 0.76 L, Nucleated RBC % 0, Differential Comment SCANNED, Platelet Estimate MOD DEC, Sodium 143, Potassium 3.1 L, Chloride 114 H, Carbon Dioxide 19.7 L, Anion Gap 9, BUN 18, Creatinine 0.82, Estim Creat Clear Calc 94.95, Est GFR (MDRD) Non-Af 99, BUN/Creatinine Ratio 21.5 H, Glucose 90, Calcium 8.4 Micro: Microbiology 08/18/24 18:59 Urine, Catheterized Urine Culture - Preliminary Gram positive quintin Aerococcus urinae 08/21/24 15:11 Nasal Secretion MRSA (PCR) - Final 08/18/24 18:50 Blood Culture (Wb) - Anticubital Right Blood Culture - Preliminary No growth in 48 hours. 08/18/24 18:54 Blood Culture (Wb) - Anticubital Left Blood Culture - Final Meth. resistant Staph. aureus 08/19/24 01:35 Mucosa - Nasopharyngeal Respiratory Panel (PCR) - Final Physical Exam Const alert Constitutional Narrative: Upper middle-aged male, alert and agitated appearing, not making eye contact with me or answering any questions for me, was otherwise laying back in bed. HEENT head/scalp atraumatic and moist oral mucous membranes Eyes PERRL, EOMs intact bilaterally and conjunctivae normal Resp normal respiratory effort, no use of accessory muscles and clear to auscultation bilaterally Cardio regular rate, regular rhythm and no murmurs GI GI Narrative: Mildly distended but otherwise soft and nontender to palpation. Extremity Extremity Narrative: Left hip with brace in place. Assessment & Plan Assessment/Plan (1) Acute metabolic encephalopathy: (2) MRSA bacteremia: (3) Constipation: PLAN: Plan Patient is a 63-year-old male who presented to [facility] ED on 08/18/2024 with altered mental status and hypotension. 1. Sepsis secondary to MRSA bacteremia with unclear source, concern for UTI ? ID following. Met sepsis criteria on admission with hypotension, fevers and acute metabolic encephalopathy in setting of infection of unclear source. Blood culture positive for MRSA, unclear source. Urine culture with small growth of bacteria. CT abdomen pelvis showed stercoral colitis. Clinically there is concern for endocarditis given splinter hemorrhages on fingers per ID, however TTE on 08/19 with no overt signs of endocarditis noted. Repeat blood cultures ordered. Continue IV vancomycin and meropenem for now. 2. Acute metabolic encephalopathy in setting of history of anoxic brain injury, schizoaffective disorder and cognitive impairment ? CT brain unremarkable. Suspected multifactorial from infection as above and possibly polypharmacy. Encephalopathy was improving during hospitalization but on 08/23, patient was alert but not answering questions appropriately for me. Continue home p.o. Abilify and benztropine. Treating with IV Keppra while inpatient. [place] level normal but will defer to nephrology on when safe to resume lithium. Notably trying to minimize oral medications as patient has severe constipation with fecalith as below. 3. Left hip fracture with acute on chronic debility ? Orthopedic surgery following. S/p left hip cephalomedullary fixation on 08/20. Patient tolerated procedure well, no intraoperative complications. Treating postoperative pain with IV Toradol as needed; notably trying to minimize opiates as able. 4. Severe impacted fecalith and stercoral colitis ? GI following. CT abdomen pelvis on 08/19 showed moderate amount of stool in the large bowel suggestive of constipation with associated mild stercoral colitis of the rectosigmoid colon. Initially treated with enemas as well as lactulose, senna and Dulcolax suppositories. Patient did have some small bowel movements noted with this. S/p EGD on 08/23 with feeding tube placement. Plan is for GoLytely through the feeding tube preparation for colonoscopy tomorrow. N.p.o. status. Appreciate further GI recs. 5. Chronic oral dysphagia ? Speech therapy following. Patient with severe oral dysphagia and mild pharyngeal dysphagia noted on prior MBSS in 2023. Recommendation on this admission was for pur?ed solids with thin liquids. Notably is n.p.o. for now as above. 6. Chronic adrenal insufficiency ? There was initially concern for acute on chronic adrenal insufficiency and patient was on IV hydrocortisone for this. However with improvement in blood pressure with IV fluid resuscitation and improvement in sodium level, hydrocortisone was discontinued. Continue home p.o. hydrocortisone and fludrocortisone. Chronic medical conditions: ? Hypertension: Holding home propranolol for now. ? Hyperlipidemia: Continue home statin. ? Asthma/COPD: Stable on room air, not in acute exacerbation. Continue home inhalers. ? Chronic tobacco dependency: Nicotine patch in place per patient request. Discussed cessation on discharge. ? Seizure disorder: Continue IV Keppra as noted above. ? BPH with obstructive symptoms: Continue on Flomax. ? Chronic normocytic anemia: Hemoglobin stable between 7.5-8 for the past several days. Continue to monitor CBC daily. DVT prophylaxis: Eliquis 2.5 mg twice daily CODE STATUS: Full code, unverified Expected disposition: TBD Total clinical time spent by myself addressing the patient's medical issues, reviewing all the data, and collaborating with patient's care team: 35 minutes. Charges/Coding Visit Charges Inpatient E&M: 73697 Subs Hosp L2
[2024-08-23] MEDS: levETIRAcetam IV 1,000 MG/100 ML BAG 400 MG IV (11:28)
[2024-08-23] MEDS: Pantoprazole Sodium 40 MG in 0.9% Normal Saline (100mL MB+) 100 ML 330 MG IV (11:33)
[2024-08-23] MEDS: Meropenem 1 GM in 0.9% Normal Saline (100mL Bag) 100 ML IV ×2 (11:37→23:29)
--- NOTE | 2024-08-23 13:00 | PCM.CONS.GEN ---
Assessment & Plan Assessment/Plan (1) MRSA bacteremia: PLAN: Presented with septic shock due to mrsa bacteremia, unclear source. Ucx with small growth bacteria. CT showed stercoral colitis. Concern for endocarditis given splinter hemorrhages on fingers. Will order repeat bcx and TTE. Cont vanc/christi for now. Will follow, thank you HPI Consult Data Date of Consult: 08/23/24 HPI Narrative Reason for Consultation: bacteremia HPI Narrative: KIMMY OCHOA, is a 63 M with h/o anoxic brain injury, presented 08/18 with altered mental status, hypotension. Admitted to icu with septic shock, started on vanc/christi. Now out of icu, found to have MRSA bacteremia. Denies pain. Unable to obtain history or full ROS from patient due to mental status. [facility] Medical History MRSA (methicillin resistant Staphylococcus aureus) infection History of schizophrenia Bradycardia Asthma GERD (gastroesophageal reflux disease) History of anoxic brain injury Adrenal insufficiency COPD (chronic obstructive pulmonary disease) Dysphagia BPH (benign prostatic hyperplasia) Polyarthropathy IBS (irritable bowel syndrome) Schizoaffective disorder Schizophrenia Mood disorder Anxiety and depression Chronic anemia HLD (hyperlipidemia) HTN (hypertension) Seizure disorder Dementia Hydrocele Home Medications ?Medication ?Instructions ?Recorded ?Last Taken ?Type acetaminophen 325 mg tablet 650 mg PO Q4H PRN Headache 05/26/17 Unknown History (Tylenol) albuterol sulfate 2.5 mg/3 mL 2.5 mg inhalation Q6H PRN PRN Sob 05/26/17 Unknown History (0.083 %) solution for nebulization &/Or Wheezing aluminum-mag hydroxide-simethicone 30 ml PO Q4H PRN PRN Indigestion 05/26/17 Unknown History 400 mg-400 mg-40 mg/5 mL oral susp (Mag-Al Plus Extra Strength) aripiprazole 5 mg tablet 5 mg PO QHS blood thinner 05/26/17 06/05/17 20:45 History 1 benzocaine 15 mg-menthol 3.6 mg 1 blaire buccal PRN PRN Sore Throat 05/26/17 Unknown History lozenges (Cepacol Sore Throat (benzocaine-menthol)) bisacodyl 10 mg rectal suppository 10 mg RECTAL DAILY PRN PRN 05/26/17 Unknown History Constipation divalproex 125 mg capsule,delayed 125 mg PO Q8H schizophrednia 05/26/17 06/05/17 20:45 History release sprinkle (Depakote 1 Sprinkles) fludrocortisone 0.1 mg tablet 0.05 mg PO DAILY@0800 abn labs 05/26/17 Unknown History guaifenesin 100 mg/5 mL oral liquid 10 ml PO Q4H PRN PRN Cough 05/26/17 Unknown History haloperidol 1 mg tablet 1 mg PO TID anxiety 05/26/17 06/05/17 20:45 History 1 lithium carbonate 300 mg 300 mg PO BID biopolar 05/26/17 06/05/17 20:45 History tablet,extended release 1 magnesium hydroxide 400 mg/5 mL 30 ml PO DAILY PRN PRN Constipation 05/26/17 Unknown History oral suspension polyethylene glycol 3350 17 gram 17 g PO DAILY constipation 05/26/17 Unknown History oral powder packet tamsulosin 0.4 mg capsule (Flomax) 0.4 mg PO DAILY urinary retention 05/26/17 Unknown History atorvastatin 40 mg tablet 40 mg PO QHS hyperlipidemia 05/10/23 Unknown History diphenhydramine HCl 50 mg/mL 50 mg IM Q6H PRN agitation 05/10/23 Unknown History injection solution folic acid 400 mcg tablet 400 mcg PO DAILY deficiency 05/10/23 Unknown History haloperidol lactate 5 mg/mL 5 mg IM Q3H PRN agitation 05/10/23 Unknown History injection solution hydrocortisone 10 mg tablet 10 mg PO BID adrenal 05/10/23 Unknown History insuffienciency hydrocortisone 5 mg tablet 5 mg PO DAILY adrenal insuffiencien 05/10/23 Unknown History lactulose 10 gram/15 mL oral 20 g PO BID abn labs 05/10/23 Unknown History solution (Enulose) lorazepam 0.5 mg tablet (Ativan) 0.5 mg PO Q6H PRN anxiety 05/10/23 Unknown History lorazepam 1 mg tablet 1 mg PO TID anxiety 05/10/23 Unknown History melatonin 3 mg capsule 6 mg PO QHS insom 05/10/23 Unknown History nicotine (polacrilex) 2 mg buccal 2 mg mucous membrane Q2H PRN 05/10/23 Unknown History lozenge nicotine cravings nicotine 10 mg inhalation 1 inh inhalation Q2H PRN nicotine 05/10/23 Unknown History cartridge (Nicotrol) cravings paroxetine HCl 20 mg tablet 20 mg PO DAILY depression 05/10/23 Unknown History aripiprazole 10 mg tablet 10 mg PO DAILY 08/18/24 Unknown History benztropine 1 mg tablet 1 mg PO BID 08/18/24 Unknown History calcium carbonate (Calcium 500) 500 mg PO BID 08/18/24 Unknown History cholecalciferol (vitamin D3) 50 4,000 unit PO DAILY 08/18/24 Unknown History mcg (2,000 unit) tablet (Vitamin D3) docusate sodium 100 mg capsule 100 mg PO DAILY 08/18/24 Unknown History (Col-Rite) loperamide 2 mg tablet 4 mg PO .COMPLEX PRN loose stool 08/18/24 Unknown History paroxetine HCl 20 mg tablet (Paxil) 20 mg PO DAILY 08/18/24 Unknown History propranolol 80 mg tablet 80 mg PO BID 08/18/24 Unknown History Allergy/AdvReac Type Severity Reaction Status Date / Time ciprofloxacin (From Cipro) AdvReac Hives Verified 11/12/15 19:37 codeine AdvReac Hives Verified 11/12/15 19:37 Penicillins AdvReac Hives Verified 11/12/15 19:37 sulfamethoxazole (From AdvReac Hives Verified 11/12/15 19:37 Bactrim) trimethoprim (From Bactrim) AdvReac Hives Verified 11/12/15 19:37 Social History household members: none housing: assisted Smoking Status: Current every day smoker tobacco type: cigarettes alcohol intake: never substance use type: does not use Physical Exam Const no apparent distress General Appearance: lethargic HEENT normocephalic and head/scalp atraumatic Eyes PERRL and EOMs intact bilaterally Neck supple and No nodes Resp normal air movement and clear to auscultation bilaterally Cardio regular rate and regular rhythm GI soft to palpation, non-tender and non-distended Extremity General Extremity: no tenderness to palpation of joints or extremities; Negative for edema Skin Skin Narrative: No rash. Multiple splinter hemorrhages on both hands. Neuro CN's II-XII intact bilaterally Lab / Micro Data Attestation: I reviewed the patient's lab results. 08/23/24 05:05 08/23/24 05:05 Labs: Laboratory Results - last 24 hr 08/22/24 23:23: Vancomycin Trough 18.2 H 08/23/24 05:05: WBC 3.5 L, RBC 2.56 L, Hgb 7.7 L, Hct 23.7 L, MCV 92.6, MCH 30.1, MCHC 32.5, RDW Std Deviation 41.1, RDW Coeff of Eyal 12.0, Plt Count 99 L, MPV 10.8, Immature Gran % (Auto) 0.300, Neut % (Auto) 63.4, Lymph % (Auto) 21.9, [place] % (Auto) 6.3, Eos % (Auto) 7.8 H, Baso % (Auto) 0.3, Absolute Neuts (auto) 2.2, Absolute Lymphs (auto) 0.76 L, Nucleated RBC % 0, Differential Comment SCANNED, Platelet Estimate MOD DEC, Sodium 143, Potassium 3.1 L, Chloride 114 H, Carbon Dioxide 19.7 L, Anion Gap 9, BUN 18, Creatinine 0.82, Estim Creat Clear Calc 94.95, Est GFR (MDRD) Non-Af 99, BUN/Creatinine Ratio 21.5 H, Glucose 90, Calcium 8.4 Micro: Microbiology 08/18/24 18:59 Urine, Catheterized Urine Culture - Preliminary Gram positive quintin Aerococcus urinae
--- NOTE | 2024-08-23 13:49 | NURSING ---
Consent obtained for EGD and NG placement by guardian via telephone by the RN and Tasha HENRIQUEZ.
--- NOTE | 2024-08-23 13:58 | PRE.ANES_ITS ---
ASA Classification* ASA Classification ASA Classification: 4 Assessment & Plan Anesthesia* Anesthesia Assessment Anesthesia Assessment: Discussed sedation and/or anesthesia options, risks, benefits, and alternatives with patient/parents/legal guardian/POA. Questions invited. The patient/parents/legal guardian/POA seems to understand and agrees to proceed with anesthesia plan. Reviewed the physical assessment, medical history, allergy history and patient home medications list prior to surgery/procedure/anesthetic and documented any changes. Performed airway and anesthesia risk assessments. Anesthesia Type Anesthesia Type: MAC History Source History Obtained from:: Patient and Chart Anesthesia Focused Assessment* Temperature: 96.9 F Pulse Rate: 67 Blood Pressure: 128/65 Respiratory Rate: 16 Pulse Ox: 95 Oxygen Delivery Method: Room Air Oxygen Flow Rate (L/min): 2 Airway Assessment Mouth opens: 2 cm Mallampati Score: III Teeth Condition: Missing Neck Range of motion (ROM): Limited ROM Labs Anesthesia Preop lab: CBC WBC 3.5 K/mm3 (4.4-11.0) L 08/23/24 05:05 08/23/24 RBC 2.56 M/mm3 (4.6-6.2) L 08/23/24 05:05 08/23/24 Hgb 7.7 g/dL (13.0-16.5) L 08/23/24 05:05 08/23/24 Hct 23.7 % (40-54) L 08/23/24 05:05 08/23/24 Plt Count 99 K/mm3 (150-450) L 08/23/24 05:05 08/23/24 CHEMISTRY Potassium 3.1 mmol/L (3.3-5.1) L 08/23/24 05:05 08/23/24 Sodium 143 mmol/L (133-145) 08/23/24 05:05 08/23/24 Magnesium 2.7 mg/dL (1.6-2.6) H 05/14/23 06:30 05/14/23 Phosphorus 3.4 mg/dL (2.5-4.9) 05/14/23 06:30 05/14/23 BUN 18 mg/dL (4-19) 08/23/24 05:05 08/23/24 Creatinine 0.82 mg/dL (0.70-1.20) 08/23/24 05:05 08/23/24 Glucose 90 mg/dL (70-99) 08/23/24 05:05 08/23/24 POC Glucose 120 mg/dL (74-106) H 05/13/23 12:43 05/13/23 TSH 1.040 uIU/mL (0.300-4.200) 08/18/24 18:59 08/01 10/25 COAG Pre-Assessment Diagnosis/Proposed Procedure Planned Operative Procedure(s): Left cephalomedullary fracture fixation. Anesthesia History Anesthesia History - clinical psychologist private practice: Anesthesia History - clinical psychologist private practice Hx Hospitalization Any Problems With Anesthesia Cholinesterase deficiency You/Your Family Experience fever (hyperthermia) with Relationship Recent Exposure to Contagious Disease Does patient have nerve stimulator Patient instructed to have device shut off --Does patient have Pacemaker or ICD? When Was Last Pacemaker Check QUESTION #4 FULL TEXT: You/Your Family Experience fever (hyperthermia) with Anesthesia Last Oral Intake Last Oral intake: Last Oral Intake NPO since 00:00 08/20/24 11:44 Meds taken in AM with sips of water? Meds patient instructed to take am of surgery PONV PONV - clinical psychologist private practice: PONV - clinical psychologist private practice Female HX of Motion Sickness HX of N/V After Surgery Non-Smoker Duration of Surgery greater than 60 minutes Number of Risk Factors PONV Score Height & Weight Height & Weight: Anesthesia: Height & Weight Height 5 ft 10 in 08/19/24 11:09 Weight: 72.8 kg 08/23/24 04:45 Body Mass Index (BMI) 22.9 08/23/24 04:45 Respiratory Assessment Respiratory Assessment - clinical psychologist private practice: Respiratory Tract Infection Hx - clinical psychologist private practice Hx Respiratory Tract Infection No 08/20/24 11:44 STOP Sleep Apnea STOP Sleep Apnea - clinical psychologist private practice: STOP Sleep Apnea - clinical psychologist private practice Hx Hypertension Yes 08/21/24 11:38 Hx Sleep Apnea No 08/20/24 14:39 CPAP BIPAP Do you snore loudly (louder No 08/19/24 02:16 than talking or can be heard Do you often feel tired/ No 08/19/24 02:16 fatigued/ sleepy during daytime? Has anyone observed you stop No 08/19/24 02:16 breathing during sleep? STOP Results Negative 08/19/24 02:16 QUESTION #5 FULL TEXT : Do you snore loudly (louder than talking or can be heard through closed doors)? 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 Specify any problems Hx of Preganancy in last 3 Months Nurse Filling Out Transfusion & Questions: Date: Time: Patient unable to answer at Yes 08/19/24 02:16 this time (ie. confused, unrespo /Reproduction History /Reproductive History - clinical psychologist private practice: /Reproductive Hx- clinical psychologist private practice Hx Now Gestational Age (in weeks): EDC: Hx Hx Para Hx Section SAB Active Medications Active Medications: Current Medications Generic Name Dose Route Start Last Admin Trade Name Freq PRN Reason Stop Dose Admin Acetaminophen 650 mg 08/21/24 10:54 08/22/24 13:06 Acetaminophen 325 Mg Tablet PO 650 mg Q6H PRN PRN Administration Pain 1-10 or Fever Albuterol Sulfate 2.5 mg 08/19/24 01:30 Albuterol 2.5 Mg/3 Ml Vial.Neb. INHALATION Q6H PRN PRN Sob &/Or Wheezing Apixaban 2.5 mg 08/21/24 07:00 08/22/24 22:38 Apixaban 2.5 Mg Tablet ([facility]) PO 2.5 mg BID FRANCISCO Administration Aripiprazole 10 mg 08/22/24 10:00 08/22/24 12:46 Aripiprazole 10 Mg Tablet PO 10 mg DAILY FRANCISCO Administration Protocol Aripiprazole 5 mg 08/22/24 22:00 08/22/24 22:21 Aripiprazole 5 Mg Tablet PO 5 mg QHS FRANCISCO Administration Protocol Atropine Sulfate 1 mg 08/21/24 10:00 Atropine Sulfate 1 Mg/10 Ml Syringe IV X1 PRN HR < 40 WITH NEOSTIGMINE ADMIN Benztropine Mesylate 1 mg 08/22/24 10:00 08/22/24 22:22 Benztropine 2 Mg Tablet PO 1 mg BID FRANCISCO Administration Calcium Carbonate 500 mg 08/20/24 17:00 08/22/24 16:55 Calcium Carbonate 500 Mg Tablet PO 500 mg TIDCM FRANCISCO Administration Cholecalciferol 25 mcg 08/21/24 10:00 08/22/24 10:56 Cholecalciferol (Vit D3) 25 Mcg Tablet (1,000 Units) PO 25 mcg DAILY FRANCISCO Administration Fludrocortisone Acetate 0.05 mg 08/21/24 08:00 08/22/24 10:56 Fludrocortisone Acetate 0.1 Mg Tablet PO 0.05 mg DAILY@0800 FRANCISCO Administration Folic Acid 0.5 mg 08/23/24 08:00 Folic Acid 1 Mg Tablet PO BREAKFAST FRANCISCO Haloperidol Lactate 0.5 mg 08/22/24 10:30 08/23/24 05:06 Haloperidol Lactate 5 Mg/Ml Vial IV 0.5 mg TID FRANCISCO Administration Protocol Hydrocortisone 10 mg 08/22/24 17:00 08/22/24 16:51 Hydrocortisone 10 Mg Tablet PO 10 mg 0800,1700 FRANCISCO Administration Hydrocortisone 5 mg 08/23/24 08:00 Hydrocortisone 10 Mg Tablet PO 0800 FRANCISCO Meropenem 1 gm/ Sodium 120 mls @ 97 mls/hr 08/19/24 10:00 08/23/24 11:37 Chloride IV 97 mls/hr BID FRANCISCO Administration Pantoprazole Sodium 40 mg/ 100 mls @ 330 mls/hr 08/19/24 10:00 08/23/24 11:52 Sodium Chloride IV Infused Q24 FRANCISCO Infusion Sodium Chloride 250 mls @ 15 mls/hr 08/19/24 01:31 08/23/24 08:06 IV Infused .[id number] PRN Infusion Saline Flush Sodium Chloride 250 mls @ 15 mls/hr 08/19/24 01:31 IV .[id number] PRN Additional IVPB Infusion Levetiracetam 1,000 mg in 100 mls @ 400 mls/hr 08/19/24 10:00 08/23/24 11:43 IV Infused Q12 FRANCISCO Infusion Vancomycin IV-PHARMACY TO DOSE 500 mls @ 250 mls/hr 08/21/24 10:00 1 each/ Sodium Chloride IV PRN PRN Rx to Dose Protocol Vancomycin HCl 1,000 mg in 200 mls @ 200 mls/hr 08/22/24 00:00 08/23/24 02:28 Vancomycin IV Infused Q12H FRANCISCO Infusion Lactated Ringer's 1,000 mls @ 15 mls/hr 08/23/24 14:00 IV .Q48H FRANCISCO Ketorolac Tromethamine 15 mg 08/22/24 13:35 08/22/24 15:05 Ketorolac 15 Mg/Ml Vial IV 08/24/24 13:35 15 mg Q8H PRN PRN Administration Pain Score 1-10 Melatonin 10 mg 08/22/24 22:00 08/22/24 22:20 Melatonin 10 Mg Tablet PO 10 mg QHS FRANCISCO Administration Nicotine 7 mg 08/19/24 01:30 08/22/24 09:34 Nicotine 7 Mg Patch TD 7 mg DAILY FRANCISCO Administration Oxycodone HCl 2.5 mg 08/20/24 13:54 08/22/24 13:05 Oxycodone 5 Mg Tablet PO 2.5 mg Q4H PRN PRN Administration Pain Score 4-10 Propranolol HCl 20 mg 08/22/24 10:00 08/22/24 22:22 Propranolol 10 Mg Tablet PO 20 mg BID FRANCISCO Administration Protocol Sodium Chloride 10 - 40 ml 08/19/24 01:31 08/23/24 11:28 0.9% Saline Lock 10 Ml Syringe IV 10 ml UD PRN Administration SALINE FLUSH Tamsulosin HCl 0.4 mg 08/22/24 17:30 08/22/24 16:53 Tamsulosin Hcl 0.4 Mg Capsule PO 0.4 mg DAILY@1730 FRANCISCO Administration Vancomycin Protocol 1 lab 08/24/24 22:30 Vancomycin Trough/Random Due 08/25/24 00:30 DAILY [facility] PFSH Medical History MRSA (methicillin resistant Staphylococcus aureus) infection History of schizophrenia Bradycardia Asthma GERD (gastroesophageal reflux disease) History of anoxic brain injury Adrenal insufficiency COPD (chronic obstructive pulmonary disease) Dysphagia BPH (benign prostatic hyperplasia) Polyarthropathy IBS (irritable bowel syndrome) Schizoaffective disorder Schizophrenia Mood disorder Anxiety and depression Chronic anemia HLD (hyperlipidemia) HTN (hypertension) Seizure disorder Dementia Hydrocele Home Medications ?Medication ?Instructions ?Recorded ?Last Taken ?Type acetaminophen 325 mg tablet 650 mg PO Q4H PRN Headache 05/26/17 Unknown History (Tylenol) albuterol sulfate 2.5 mg/3 mL 2.5 mg inhalation Q6H NE N PRN Sob 05/26/17 Unknown History (0.083 %) solution for nebulization &/Or Wheezing aluminum-mag hydroxide-simethicone 30 ml PO Q4H PRN NE N Indigestion 05/26/17 Unknown History 400 mg-400 mg-40 mg/5 mL oral susp (Mag-Al Plus Extra Strength) aripiprazole 5 mg tablet 5 mg PO QHS blood thinner 06/05/17 20:45 History 1 benzocaine 15 mg-menthol 3.6 mg 1 blaire buccal PRN PRN S ore Throat 05/26/17 Unknown History lozenges (Cepacol Sore Throat (benzocaine-menthol)) bisacodyl 10 mg rectal suppository 10 mg RECTAL DAILY PRN PRN 05/26/17 Unknown History Constipation divalproex 125 mg capsule,delayed 125 mg PO Q8H schizo phrednia 05/26/17 06/05/17 20:45 History release sprinkle (Depakote 1 Sprinkles) fludrocortisone 0.1 mg tablet 0.05 mg PO DAILY@0800 ab n labs 05/26/17 Unknown History guaifenesin 100 mg/5 mL oral liquid 10 ml PO Q4H PRN P RN Cough 05/26/17 Unknown History haloperidol 1 mg tablet 1 mg PO TID anxiety 05/26/17 06/05/17 20:45 History 1 lithium carbonate 300 mg 300 mg PO BID biopolar 05/2606/05/17 20:45 History tablet,extended release 1 magnesium hydroxide 400 mg/5 mL 30 ml PO DAILY PRN PRN Constipation 05/26/17 Unknown History oral suspension polyethylene glycol 3350 17 gram 17 g PO DAILY constip ation 05/26/17 Unknown History oral powder packet tamsulosin 0.4 mg capsule (Flomax) 0.4 mg PO DAILY uri nary retention 05/26/17 Unknown History atorvastatin 40 mg tablet 40 mg PO QHS hyperlipidemia 05/10/23 Unknown History diphenhydramine HCl 50 mg/mL 50 mg IM Q6H PRN agitatio n 05/10/23 Unknown History injection solution folic acid 400 mcg tablet 400 mcg PO DAILY deficiency 05/10/23 Unknown History haloperidol lactate 5 mg/mL 5 mg IM Q3H PRN agitation 05/10/23 Unknown History injection solution hydrocortisone 10 mg tablet 10 mg PO BID adrenal 05/09 Unknown History insuffienciency hydrocortisone 5 mg tablet 5 mg PO DAILY adrenal insuf fiencien 05/10/23 Unknown History lactulose 10 gram/15 mL oral 20 g PO BID abn labs 11/24 Unknown History solution (Enulose) lorazepam 0.5 mg tablet (Ativan) 0.5 mg PO Q6H PRN anx iety 05/10/23 Unknown History lorazepam 1 mg tablet 1 mg PO TID anxiety 05/10/23 Unknown History melatonin 3 mg capsule 6 mg PO QHS insom 05/10/23 U nknown History nicotine (polacrilex) 2 mg buccal 2 mg mucous membrane Q2H PRN 05/10/23 Unknown History lozenge nicotine cravings nicotine 10 mg inhalation 1 inh inhalation Q2H PRN trixie otine 05/10/23 Unknown History cartridge (Nicotrol) cravings paroxetine HCl 20 mg tablet 20 mg PO DAILY depression 05/10/23 Unknown History aripiprazole 10 mg tablet 10 mg PO DAILY 08/18/24 Unkn own History benztropine 1 mg tablet 1 mg PO BID 08/18/24 Unknown History calcium carbonate (Calcium 500) 500 mg PO BID 08/18/24 Unknown History cholecalciferol (vitamin D3) 50 4,000 unit PO DAILY Unknown History mcg (2,000 unit) tablet (Vitamin D3) docusate sodium 100 mg capsule 100 mg PO DAILY 5 Unknown History (Col-Rite) loperamide 2 mg tablet 4 mg PO .COMPLEX PRN loose s tool 08/18/24 Unknown History paroxetine HCl 20 mg tablet (Paxil) 20 mg PO DAILY Unknown History propranolol 80 mg tablet 80 mg PO BID 08/18/24 Unknow n History Allergy/AdvReac Type Severity Reaction Status Date / Time ciprofloxacin (From Cipro) AdvReac Hives Verified 11/12/15 19:37 codeine AdvReac Hives Verified 11/12/15 19:37 Penicillins AdvReac Hives Verified 11/12/15 19:37 sulfamethoxazole (From AdvReac Hives Verified 11/12/15 19:37 Bactrim) trimethoprim (From Bactrim) AdvReac Hives Verified 11/12/15 19:37 Social History household members: none housing: retirement Smoking Status: Current every day smoker tobacco type: cigarettes alcohol intake: never substance use type: does not use Review of Systems (Anesthesia) ROS Narrative System reviewed and no additional complaints, except as documented.
[2024-08-23] MEDS: Lactated Ringers 1,000 ML 15 ML IV (14:00)
--- NOTE | 2024-08-23 14:42 | PCM.PN.BLA ---
Progress Note Patient was not able to tolerate prep. So he will get an NG tube placed to hopefully clean his colon out. Physical Exam Const alert, oriented x3, no apparent distress and healthy appearing General Appearance: cooperative GI normal to inspection, nondistended, normoactive bowel sounds, soft to palpation, non-tender and non-distended Percussion: normal to percussion Rectal Exam: deferred Assessment & Plan Assessment/Plan (1) MRSA bacteremia: PLAN: CT showed stercoral colitis. There is possibly concern for endocarditis. Patient being seen by infectious disease. (2) Constipation: PLAN: Patient will undergo EGD with NG tube placement. Patient and patient's POA were explained alternatives, risk and benefits include not withstanding bleeding, infection, sepsis, perforation, need for more urgent . He will have an ASA of 3. Visit Charges Inpatient E&M: 96116 Subs Hosp L2
--- NOTE | 2024-08-23 14:50 | PCM.POST.ANE ---
Anesthesia: Postop Eval I Current Vital Signs Temperature: 98.6 F Pulse Rate: 63 Blood Pressure: 116/58 Respiratory Rate: 16 Pulse Ox: 100 Oxygen Delivery Method: Room Air Assessment Airway patent: Yes Spontaneous unlabored respirations: Yes Mental status: Awake nausea: No Vomiting: No Anesthesia Complication: No Fluid Hydration Crystalloid volume administer (ml): 200 Total IV fluid infused: 200 Progress Note Anesthesia document: Postop Eval 1 completed: Yes
--- NOTE | 2024-08-23 15:21 | NURSING ---
Pharmacy called and notified that vanc was not given do to pt still receiving Merrem. Nurse to call Pharmacy when Pt returns to floor for dosage adjusting and trough time.
--- NOTE | 2024-08-23 15:25 | OP.EGD_ITS ---
Patient Name: Nando Brito Procedure Date: 08/23/2024 3:01 PM Date of : 1960 Age: 63 Procedure: Upper GI endoscopy Indications: Epigastric abdominal pain Providers: Hugo Pacheco DO Medicines: Monitored Anesthesia Care Patient Profile: This is a 63 year old male. Refer to note in patient chart for documentation of history and physical. Patient has symptoms of acute abdominal distention. Complications: No immediate complications. Procedure: Pre-Anesthesia Assessment: - Prior to the procedure, a History and Physical was performed, and patient medications and allergies were reviewed. The patient is competent. The risks and benefits of the procedure and the sedation options and risks were discussed with the patient. All questions were answered and informed consent was obtained. Patient identification and proposed procedure were verified by the physician in the pre-procedure area. Mental Status Examination: alert and oriented. Airway Examination: normal oropharyngeal airway and neck mobility. Respiratory Examination: clear to auscultation. CV Examination: normal. Prophylactic Antibiotics: The patient does not require prophylactic antibiotics. Prior Anticoagulants: The patient has taken no anticoagulant or antiplatelet agents except for NSAID medication. ASA Grade Assessment: II - A patient with mild systemic disease. After reviewing the risks and benefits, the patient was deemed in satisfactory condition to undergo the procedure. The anesthesia plan was to use monitored anesthesia care (MAC). Immediately prior to administration of medications, the patient was re-assessed for adequacy to receive sedatives. The heart rate, respiratory rate, oxygen saturations, blood pressure, adequacy of pulmonary ventilation, and response to care were monitored throughout the procedure. The physical status of the patient was re-assessed after the procedure. After obtaining informed consent, the endoscope was passed under direct vision. Throughout the procedure, the patient's blood pressure, pulse, and oxygen saturations were monitored continuously. The Endoscope was introduced through the mouth, and advanced to the second part of duodenum. The upper GI endoscopy was accomplished without difficulty. The patient tolerated the procedure well. Scope In: 3:03:05 PM Scope Out: 3:09:25 PM Total Procedure Duration Time 0 hours 6 minutes 20 seconds Findings: No gross lesions were noted in the entire esophagus. No gross lesions were noted in the entire examined stomach. No gross lesions were noted in the second portion of the duodenum. An 18 Fr nasogastric tube was placed through the nares into the esophagus. Under endoscopic guidance, the tube was advanced into the stomach. Placement was confirmed by scope visualization. Impression: - No gross lesions in the entire esophagus. - No gross lesions in the entire stomach. - No gross lesions in the second portion of the duodenum. - Feeding tube placement was successfully performed. - No specimens collected. Recommendation: - Return [facility] to [facility]. - Clear liquid diet. - Continue present medications. Procedure Code(s): --- Professional --- 66179, Esophagogastroduodenoscopy, flexible, transoral; with insertion of intraluminal tube or catheter CPT copyright 2021 [employer]. All rights reserved. The codes documented in this report are preliminary and upon wire products inspector review may be revised to meet current compliance requirements. Hugo Pacheco DO 08/23/2024 3:25:07 PM This report has been signed electronically. Number of Addenda: 0 Note Initiated On: 08/23/2024 3:01 PM
--- NOTE | 2024-08-23 15:25 | OP.CCLET_ITS ---
08/23/2024 Mikhail Balderas Re : Upper GI endoscopy procedure for Nando Brito Dear Sherrie This procedure was performed on Friday, August 23, 2024. My impressions and recommendations are as follows: Impressions : - No gross lesions in the entire esophagus. - No gross lesions in the entire stomach. - No gross lesions in the second portion of the duodenum. - Feeding tube placement was successfully performed. - No specimens collected. Recommendations : - Return patient to [facility] for [facility] care. - Clear liquid diet. - Continue present medications. My findings are described in the full procedure note, which is enclosed. If I can be of further assistance, please feel free to contact me at . Sincerely, Hugo Pacheco, 08/23/2024 3:25:07 PM This report has been signed electronically.
--- NOTE | 2024-08-23 15:48 | POSTOPAN2_ITS ---
Anesthesia Postop Eval I Sum Postop Eval Completion status Anesthesia document: Postop Eval 1 completed: Yes Anesthesia Postop Eval I Summary Anesthesia Postop Eval I Summary: Anesthesia Postop Eval I: Assessment Summary Airway patent Yes 08/23/24 15:22 RIP MACHINE OPERATOR.APAT Spontaneous unlabored Yes 08/23/24 15:22 RIP MACHINE OPERATOR.APAT respirations Mental status Awake 08/23/24 15:22 RIP MACHINE OPERATOR.APAT nausea No 08/23/24 15:22 RIP MACHINE OPERATOR.APAT Vomiting No 08/23/24 15:22 RIP MACHINE OPERATOR.APAT Anesthesia Postop Eval I: Fluid Summary Crystalloid volume administer 200 08/23/24 15:22 RIP MACHINE OPERATOR.APAT (ml) Colloids volume administered ( ml) Blood Product volume administered (ml) Total IV fluid infused 200 08/23/24 15:22 RIP MACHINE OPERATOR.APAT Anesthesia Postop Eval I: Summary Notes Anesthesia Complication No 08/23/24 15:22 RIP MACHINE OPERATOR.APAT Anesthesia Complication Comment: Post-operative progress note Anesthesia: Postop Eval II Evaluation Mental status: Awake and Uncooperative Pain Level: 0 nausea: No Vomiting: No Progress Note Post-operative progress note: Attempting to pull out NG Tube, requiring soft restraints. Complications Anesthesia Complication: No
--- NOTE | 2024-08-23 15:48 | PCM.POSTANE2 ---
Anesthesia Postop Eval I Sum Postop Eval Completion status Anesthesia document: Postop Eval 1 completed: Yes Anesthesia Postop Eval I Summary Anesthesia Postop Eval I Summary: Anesthesia Postop Eval I: Assessment Summary Airway patent Yes 08/23/24 15:22 SALES REPRESENTATIVE CHURCH FURNITURE.APAT Spontaneous unlabored Yes 08/23/24 15:22 SALES REPRESENTATIVE CH[employer]CH [employer]ITURE.APAT respirations Mental status Awake 08/23/24 15:22 SALES REPRESENTATIVE CHURCH FURNITURE.APAT nausea No 08/23/24 15:22 SALES REPRESENTATIVE CHURCH FURNITURE.APAT Vomiting No 08/23/24 15:22 SALES REPRESENTATIVE CHURCH FURNITURE.APAT Anesthesia Postop Eval I: Fluid Summary Crystalloid volume administer 200 08/23/24 15:22 SALES REPRESENTATIVE CHURCH FURNITURE.APAT (ml) Colloids volume administered ( ml) Blood Product volume administered (ml) Total IV fluid infused 200 08/23/24 15:22 SALES REPRESENTATIVE CHURCH FURNITURE.APAT Anesthesia Postop Eval I: Summary Notes Anesthesia Complication No 08/23/24 15:22 SALES REPRESENTATIVE CHURCH FURNITURE.APAT Anesthesia Complication Comment: Post-operative progress note Anesthesia: Postop Eval II Evaluation Mental status: Awake and Uncooperative Pain Level: 0 nausea: No Vomiting: No Progress Note Post-operative progress note: Attempting to pull out NG Tube, requiring soft restraints. Complications Anesthesia Complication: No
[2024-08-23] MEDS: Tamsulosin HCl 0.4 MG Capsule PO (17:01)
[2024-08-23] MEDS: Hydrocortisone 10 MG Tablet PO (17:01)
[2024-08-23] MEDS: Calcium Carbonate 500 MG Tablet PO (17:01)
[2024-08-23] MEDS: Electrolyte Solution/Peg's 4000 ML PO (17:40)
--- NOTE | 2024-08-23 21:48 | NURSING ---
Patient is in soft wrist restraints bilaterally due to pulling at lines and to prevent removal of ng tube that was placed today. NG will be removed after medication administration tonight and then the restraints are to be discontinued per physician communication with Dr Pacheco.
[2024-08-23] MEDS: APIXABAN 2.5 MG TABLET (WCH) PO (23:05)
[2024-08-23] MEDS: Propranolol 10 MG Tablet 20 MG PO (23:05)
[2024-08-23] MEDS: Benztropine 2 MG Tablet 1 MG PO (23:06)
[2024-08-23] MEDS: MELATONIN 10 MG TABLET PO (23:06)
[2024-08-23] MEDS: ARIPiprazole 5 MG Tablet PO (23:06)
[2024-08-24] VITALS (7 sets, daily range): BP systolic 99–120; BP diastolic 43–70; PULSE 57–65; RESP 16–18; TEMP 36.1–36.6; O2SAT 91–96; BMI 22.8
[2024-08-24] MEDS: levETIRAcetam IV 1,000 MG/100 ML BAG 400 MG IV ×3 (01:21→21:45)
[2024-08-24] MEDS: Vancomycin IV 1,000 MG/200 ML BAG 200 MG IV ×2 (04:39→18:40)
[2024-08-24] MEDS: Haloperidol Lactate 5 MG/ML Vial IV ×3 (06:10→21:51)
[2024-08-24] MEDS: 0.9% Saline Lock 10 ML Syringe IV ×3 (06:11→22:06)
[2024-08-24 07:03] LABS: Hematocrit 22.2 % (40-54); Hemoglobin 7.4 g/dL (13.0-16.5); Mean Corp Hgb Conc 33.3 g/dL (32-36); Mean Corpuscular Hgb 30.3 pg (27.0-32.0); Mean Platelet Vol. 10.6 fl (6.2-12.0); Platelet Count 103 K/mm3 (150-450); RBC Distribution Width CV 12.2 % (11.6-14.6); RBC Distribution Width SD 40.2 fl (35.1-43.9); Red Blood Count 2.44 M/mm3 (4.6-6.2); White Blood Count 2.7 K/mm3 (4.4-11.0)
[2024-08-24 07:33] LABS: Anion Gap 9 (5-15); BUN 14 mg/dL (4-19); BUN/Creat Ratio 16.4 RATIO (10-20); Calcium,Total 8.3 mg/dL (7.6-11.0); Carbon Dioxide 22.2 mmol/L (21.0-32.0); Chloride 114 mmol/L (98-108); Creatinine, Serum 0.83 mg/dL (0.70-1.20); EST Glomerular Filtration Rate 98 (>60); Estimated Creatinine Clearance 93.03 ml/min (50-250); Glucose 103 mg/dL (70-99); Sodium Level 145 mmol/L (133-145)
--- NOTE | 2024-08-24 07:35 | ECHOTEE_ITS ---
Reason For Study : ENDOCARDITIS Medication DARREN probe 6VT-D (SN [id number]) passed without difficulty. No complications were noted. Cetacaine Topical [place]ell given X1 orally. Versed 2 mg given slow IVP. Fentanyl 50 mcg given slow IVP. Performed a rapid injection of agitated mix of 9 cc saline and 1cc air to assess for atrial septal defect. Left Ventricle Normal LV size. Left ventricular systolic function is normal. The left ventricular ejection fraction is 60 %. No regional wall motion abnormalities noted. Right Ventricle Normal RV size. Normal systolic function. Atria Bubble contrast study is negative for PFO/ASD. Normal left atrium. No thrombus is detected in the left atrial appendage. Normal right atrium. Mitral Valve Normal mitral valve. Tricuspid Valve Normal tricuspid valve. Aortic Valve Trisinus/trileaflet aortic valve. Mild focal aortic valve thickening. Mild (1+) aortic valve insufficiency. Pulmonic Valve Normal pulmonic valve. Vessels Normal aortic root. Mild atherosclerosis of the aortic arch. The pulmonary artery is normal size. Pulmonary venous flow normal. Pericardium No pericardial effusion. ECHO/Echo Transesophageal (DARREN) Interpretation Summary There is no evidence of a mass or vegetation. This does not rule out endocardit is. Normal LV size. Left ventricular systolic function is normal. The left ventricular ejection fraction is 60 %. Bubble contrast study is negative for PFO/ASD. Mild (1+) aortic valve insufficiency. Ordering Physician: Redd Laughlin Performed By: Carissa Motley RDCS
--- NOTE | 2024-08-24 09:20 | CASEMGMT ---
Addendum entered by Valentina Thibodeaux 08/24/24 10:27: Fax confirmation rec'd. Valentina Thibodeaux DC Planning Asst. Original Note: Discharge Planning Updates faxed to [facility]. Valentina Thibodeaux DC Planning Asst.
[2024-08-24 10:19] LABS: Magnesium 2.2 mg/dL (1.5-2.2); Phosphorus 2.4 mg/dL (2.7-4.5)
[2024-08-24] MEDS: Pantoprazole Sodium 40 MG in 0.9% Normal Saline (100mL MB+) 100 ML 330 MG IV (10:32)
[2024-08-24] MEDS: Meropenem 1 GM in 0.9% Normal Saline (100mL Bag) 100 ML IV ×2 (11:00→22:19)
[2024-08-24] MEDS: Potassium Chloride 10mEq/100mL 10 MEQ/100 ML IV.SOLN. 100 MEQ IV BOLUS ×4 (11:05→16:19)
--- NOTE | 2024-08-24 11:19 | PCM.PN.ID ---
Physical Exam Narrative Sleeping this AM, no fever Const no apparent distress Resp normal air movement and clear to auscultation bilaterally Cardio regular rate and regular rhythm GI soft to palpation, non-tender and non-distended Skin Skin Narrative: no new rash ID ID: Route of nutrition/ use of supplements: [] Nutritional Intake: [] IV Site: [] Mills Catheter: [] Assessment & Plan Assessment/Plan (1) MRSA bacteremia: PLAN: Presented with septic shock due to mrsa bacteremia, unclear source. Ucx with small growth bacteria. CT showed stercoral colitis. Concern for endocarditis given splinter hemorrhages on fingers. Will order repeat bcx. DARREN pending. Cont vanc/christi for now. Will follow
--- NOTE | 2024-08-24 11:37 | PN.HOSP_ITS ---
Reason for Visit Reason for Visit: Diagnoses Sepsis, unspecified organism (08/19/24) Methicillin resistant Staphylococcus aureus infection as the cause of diseases classified elsewhere (08/19/24) Unspecified dementia, unspecified severity, with agitation (08/19/24) Schizoaffective disorder, unspecified (08/19/24) Depression, unspecified (08/19/24) Anxiety disorder, unspecified (08/19/24) Metabolic encephalopathy (08/19/24) Constipation, unspecified (08/19/24) Acute cystitis without hematuria (08/19/24) Other abnormalities of breathing (08/19/24) Severe sepsis with septic shock (08/19/24) Bacteremia (08/19/24) Fracture of unspecified part of neck of left femur, initial encounter for closed fracture (08/19/24) Displaced intertrochanteric fracture of left femur, initial encounter for closed fracture (08/19/24) Personal history of other mental and behavioral disorders (08/19/24) Personal history of other diseases of the nervous system and sense organs (08/19/24) Subjective Subjective Saw patient at bedside this morning. Patient remained somewhat sedated from the IV medications he received for sedation for DARREN. He did open his eyes for me on command but was not answering any questions appropriately. Otherwise laying back comfortably in bed. Objective Data Objective Data Vital Signs: Vital Signs Temp Pulse Resp BP Pulse Ox O2 Del Method O2 Flow Rate 97.1 F L 60 16 99/43 L 91 Room Air 2 08/24/24 09:47 08/24/24 09:47 08/24/24 09:47 08/24/24 09:47 08/24/24 09:47 08/24/24 09:47 08/23/24 13:59 Oxygen Flow Rate (L/min) 2 Oxygen Delivery Method Room Air Weight: 72.2 kg Body Mass Index (BMI) 22.8 Intake & Output: Intake and Output for Last 24 Hours 08/22/24 08/23/24 08/24/24 23:59 23:59 23:59 Intake Total 3753.75 / 3753.75 2573 / 2573 1100 / 1100 Balance 3753.75 / 3753.75 2573 / 2573 1100 / 1100 Lab / Micro Data 08/24/24 06:48 08/24/24 06:48 Labs: Laboratory Results - last 24 hr 08/24/24 06:48: WBC 2.7 L, RBC 2.44 L, Hgb 7.4 L, Hct 22.2 L, MCV 91.0, MCH 30.3, MCHC 33.3, RDW Std Deviation 40.2, RDW Coeff of Eyal 12.2, Plt Count 103 L, MPV 10.6, Sodium 145, Potassium 3.0 L, Chloride 114 H, Carbon Dioxide 22.2, Anion Gap 9, BUN 14, Creatinine 0.83, Estim Creat Clear Calc 93.03, Est GFR (MDRD) Non-Af 98, BUN/Creatinine Ratio 16.4, Glucose 103 H, Calcium 8.3, P hosphorus 2.4 L, Magnesium 2.2 Micro: Microbiology 08/18/24 18:54 Blood Culture (Wb) - Anticubital Left Blood Culture - Final Meth. resistant Staph. aureus 08/18/24 18:50 Blood Culture (Wb) - Anticubital Right Blood Culture - Final No growth in 5 days. 08/18/24 18:59 Urine, Catheterized Urine Culture - Preliminary Corynebacterium jeikeium Aerococcus urinae GPC Poss Enterococcus sp 08/21/24 15:11 Nasal Secretion MRSA (PCR) - Final 08/19/24 01:35 Mucosa - Nasopharyngeal Respiratory Panel (PCR) - Final Physical Exam Const alert Constitutional Narrative: Upper middle-aged male, moderately sedated appearing, opened eyes on command but not answering any questions appropriately, otherwise laying back comfortably in bed. HEENT head/scalp atraumatic and moist oral mucous membranes Eyes PERRL, EOMs intact bilaterally and conjunctivae normal Resp normal respiratory effort, no use of accessory muscles and clear to auscultation bilaterally Cardio regular rate, regular rhythm and no murmurs GI GI Narrative: Mildly distended but otherwise soft and nontender to palpation. Stable. Extremity Extremity Narrative: Left hip with dressing in place. Assessment & Plan Assessment/Plan (1) Acute metabolic encephalopathy: (2) MRSA bacteremia: (3) Constipation: PLAN: Plan Patient is a 63-year-old male who presented to [facility] ED on 08/18/2024 with altered mental status and hypotension. 1. Sepsis secondary to MRSA bacteremia with unclear source, concern for UTI ? ID following. Met sepsis criteria on admission with hypotension, fevers and acute metabolic encephalopathy in setting of infection of unclear source. Blood culture positive for MRSA, unclear source. Urine culture with small growth of bacteria. CT abdomen pelvis showed stercoral colitis. TTE on 08/19 with no overt signs of endocarditis. DARREN on 08/24 was also unremarkable. Repeat blood cultures ordered on 08/23 and remain pending. Continue IV vancomycin and meropenem for now. Appreciate further ID recommendations. 2. Acute metabolic encephalopathy in setting of history of anoxic brain injury, schizoaffective disorder and cognitive impairment ? CT brain unremarkable. Suspected multifactorial from infection as above and possibly polypharmacy. Encephalopathy was improving during hospitalization but on 08/23, patient was alert but not answering questions appropriately for me. Continue home p.o. Abilify and benztropine. Treating with IV Keppra while inpatient. [place] level normal but will defer to nephrology on when safe to resume lithium. Notably trying to minimize oral medications as patient has severe constipation with fecalith as below. 3. Left hip fracture with acute on chronic debility ? Orthopedic surgery following. S/p left hip cephalomedullary fixation on 08/20. Patient tolerated procedure well, no intraoperative complications. Treating postoperative pain with IV Toradol as needed; notably trying to minimize opiates as able. 4. Severe impacted fecalith and stercoral colitis ? GI following. CT abdomen pelvis on 08/19 showed moderate amount of stool in the large bowel suggestive of constipation with associated mild stercoral colitis of the rectosigmoid colon. Initially treated with enemas as well as lactulose, senna and Dulcolax suppositories. Patient did have some small bowel movements noted with this. S/p EGD on 08/23 with NG tube placement. Plan was for GoLytely through the feeding tube in preparation for colonoscopy on 08/24; however patient unfortunately pulled the feeding tube out on the evening of 08/23. He notably did receive some of the GoLytely without any bowel movements. Okay for regular diet with pureed solids and thin liquids for now and will continue to monitor bowel movements closely. Appreciate further GI recs. 5. Chronic oral dysphagia ? Speech therapy following. Patient with severe oral dysphagia and mild pharyngeal dysphagia noted on prior MBSS in 2023. Recommendation on this admission was for pur?ed solids with thin liquids and will continue this diet for now. 6. Chronic adrenal insufficiency ? There was initially concern for acute on chronic adrenal insufficiency and patient was on IV hydrocortisone for this. However with improvement in blood pressure with IV fluid resuscitation and improvement in sodium level, hydrocortisone was discontinued. Continue home p.o. hydrocortisone and fludrocortisone. Chronic medical conditions: ? Hypertension: Holding home propranolol for now. ? Hyperlipidemia: Continue home statin. ? Asthma/COPD: Stable on room air, not in acute exacerbation. Continue home inhalers. ? Chronic tobacco dependency: Nicotine patch in place per patient request. Discussed cessation on discharge. ? Seizure disorder: Continue IV Keppra as noted above. ? BPH with obstructive symptoms: Continue on Flomax. ? Chronic normocytic anemia: Hemoglobin stable between 7.5-8 for the past several days. Continue to monitor CBC daily. DVT prophylaxis: Eliquis 2.5 mg twice daily CODE STATUS: Full code, unverified Expected disposition: TBD Total clinical time spent by myself addressing the patient's medical issues, reviewing all the data, and collaborating with patient's care team: 35 minutes. Charges/Coding Visit Charges Inpatient E&M: 02393 Subs Hosp L2
[2024-08-24 18:10] LABS: Vancomycin, Trough Level 17.5 ug/mL (5.0-15.0)
--- NOTE | 2024-08-24 18:34 | PCM.RX.CS ---
Consult Antibiotic Management Pharmacy has been consulted to manage selected antibiotic: Vancomycin Type of Intervention Type of Consult: Follow-up Prior Doses of Antibiotics Prior Doses of Antibiotics Received/Current Regimen: current dose is 1000mg IV q12h Labs Labs: Sodium 145 mmol/L (133-145) 08/24/24 06:48 Potassium 3.0 mmol/L (3.3-5.1) L 08/24/24 06:48 Chloride 114 mmol/L (98-108) H 08/24/24 06:48 Carbon Dioxide 22.2 mmol/L (21.0-32.0) 08/24/24 06:48 Anion Gap 9 (5-15) 08/24/24 06:48 BUN 14 mg/dL (4-19) 08/24/24 06:48 Creatinine 0.83 mg/dL (0.70-1.20) 08/24/24 06:48 Est GFR (MDRD) Non-Af 98 (>60) 08/24/24 06:48 BUN/Creatinine Ratio 16.4 RATIO (10-20) 08/24/24 06:48 Glucose 103 mg/dL (70-99) H 08/24/24 06:48 Vancomycin Trough 17.5 ug/mL (5.0-15.0) H 08/24/24 17:15 Microbiology Microbiology: Microbiology 08/18/24 18:54 Blood Culture (Wb) - Anticubital Left Blood Culture - Final Meth. resistant Staph. aureus 08/18/24 18:50 Blood Culture (Wb) - Anticubital Right Blood Culture - Final No growth in 5 days. 08/18/24 18:59 Urine, Catheterized Urine Culture - Preliminary Corynebacterium jeikeium Aerococcus urinae GPC Poss Enterococcus sp 08/21/24 15:11 Nasal Secretion MRSA (PCR) - Final 08/19/24 01:35 Mucosa - Nasopharyngeal Respiratory Panel (PCR) - Final Dosing Weight Weight used for dosin.2 kg Estimated Creatinine Clearance Estimated Creatinine Clearance: 93 ml/min Goal Trough Goal Trough: 15-20 mcg/mL Pharmacy Plan for Drug Dosing Pharmacy Plan for Drug Dosing: VANCOMYCIN LEVEL RECEIVED Current Vancomycin Dose: 1000MG Q12H Number of Doses Received: 5 Vancomycin Level: 17.5 Hours Since Last Dose: 12.5 Renal Function: SCr 0.83, CrCl 93 Renal Function Trend: SCr WAS 0.82 AND 0.93 PREVIOUS TWO DAYS Vancomycin Plan/Comments: TROUGH IN GOAL RANGE. IT WOULD HAVE BEEN A LITTLE HIGHER IF DRAWN CLOSER TO THE DESIRED 11.5 HOUR MICHELLE. KEEP SAME DOSE. REPEAT TROUGH IN 2 DAYS AGAIN TO DOUBLECHECK LEVEL SINCE YESTERDAY'S DOSING WAS OFF SCHEDULE DUE TO PATIENT BEING OFF THE MAIN FLOOR FOR HOURS Pending Level: 08/26/24 16:30 Pharmacy Service will continue to monitor and adjust dosing as required. Follow-Up Labs Follow-Up Labs: Trough: Vancomycin Date/Time Labs Ordered Labs to be done on [date and time ordered]: 08/26/24 16:30
--- NOTE | 2024-08-24 18:39 | PCM.PN.BLA ---
Progress Note Patient pulled NG tube out last night. He did get about half of his GoLytely prep. He did have a small bowel movement today. His abdomen is less distended today. Asked to pair to patient. Physical Exam Const alert, oriented x3, no apparent distress and healthy appearing General Appearance: cooperative GI normal to inspection, nondistended, normoactive bowel sounds, soft to palpation, non-tender and non-distended Percussion: normal to percussion Rectal Exam: deferred Assessment & Plan Assessment/Plan (1) Stercoral ulcer of large intestine: (2) Constipation: PLAN: Patient has severe impacted fecalith and stercoral colitis from ascending to rectosigmoid region: CT abdomen reviewed and shows impacted fecalith in the right side colon, stretching of rectosigmoid region and rectum. Soapsuds enema ordered and was unsuccessful. He received drip with neostigmine and that was also unsuccessful. He is status post NG tube placement with half prep of GoLytely. He did have small bowel movement. He will need repeat imaging to see if the large fecal ball on the right side of the colon has improved. Continue bowel regimen. Visit Charges Inpatient E&M: 60005 Subs Hosp L3
[2024-08-24] MEDS: Propranolol 10 MG Tablet 20 MG PO (21:47)
[2024-08-24] MEDS: MELATONIN 10 MG TABLET PO (21:47)
[2024-08-24] MEDS: ARIPiprazole 5 MG Tablet PO (21:48)
[2024-08-24] MEDS: APIXABAN 2.5 MG TABLET (WCH) PO (21:48)
[2024-08-24] MEDS: Benztropine 2 MG Tablet 1 MG PO (21:49)
[2024-08-24] MEDS: Acetaminophen 325 MG Tablet 650 MG PO (21:57)
--- NOTE | 2024-08-24 22:41 | ANES.CONFIRM ---
Anesthesia: Confirm Documents Multiple Procedures on Account (2) Confirmed Documents: Yes
[2024-08-25 03:25] VITALS: BMI 23.2
[2024-08-25 03:52] VITALS: BP 110/57; PULSE 55; RESP 18; TEMP 36; O2SAT 96
--- NOTE | 2024-08-25 03:57 | PCM.HOSP.N ---
Hospitalist Note SNF called and requested update. Noted he is normally on lactulose for hyperammonemia. Will obtain NH level to be cautious and requested med update.
[2024-08-25] MEDS: Haloperidol Lactate 5 MG/ML Vial IV ×3 (04:47→22:00)
[2024-08-25] MEDS: Vancomycin IV 1,000 MG/200 ML BAG 200 MG IV ×2 (04:50→18:46)
[2024-08-25 07:35] VITALS: O2SAT 95
[2024-08-25 11:30] VITALS: BP 122/77; PULSE 58; RESP 16; TEMP 36.8; O2SAT 96
[2024-08-25] MEDS: levETIRAcetam IV 1,000 MG/100 ML BAG 400 MG IV ×2 (12:04→21:06)
--- NOTE | 2024-08-25 12:13 | PN.HOSP_ITS ---
Reason for Visit Reason for Visit: Diagnoses Sepsis, unspecified organism (08/19/24) Methicillin resistant Staphylococcus aureus infection as the cause of diseases classified elsewhere (08/19/24) Unspecified dementia, unspecified severity, with agitation (08/19/24) Schizoaffective disorder, unspecified (08/19/24) Depression, unspecified (08/19/24) Anxiety disorder, unspecified (08/19/24) Metabolic encephalopathy (08/19/24) Constipation, unspecified (08/19/24) Ulcer of intestine (08/19/24) Acute cystitis without hematuria (08/19/24) Other abnormalities of breathing (08/19/24) Severe sepsis with septic shock (08/19/24) Bacteremia (08/19/24) Fracture of unspecified part of neck of left femur, initial encounter for closed fracture (08/19/24) Displaced intertrochanteric fracture of left femur, initial encounter for closed fracture (08/19/24) Personal history of other mental and behavioral disorders (08/19/24) Personal history of other diseases of the nervous system and sense organs (08/19/24) Subjective Subjective Saw patient at bedside this morning. Patient mentation and energy level appeared improved from previous days. Remains only alert and oriented x 1 to person but this is reportedly his baseline. No other new concerns today. Objective Data Objective Data Vital Signs: Vital Signs Temp Pulse Resp BP Pulse Ox O2 Del Method O2 Flow Rate 96.8 F L 55 L 18 110/57 L 95 Nasal Cannula 2 08/25/24 03:52 08/25/24 03:52 08/25/24 03:52 08/25/24 03:52 08/25/24 07:35 08/25/24 07:35 08/25/24 07:35 Oxygen Flow Rate (L/min) 2 Oxygen Delivery Method Nasal Cannula Weight: 73.4 kg Body Mass Index (BMI) 23.2 Intake & Output: Intake and Output for Last 24 Hours 08/23/24 08/24/24 08/25/24 23:59 23:59 23:59 Intake Total 2573 / 2573 2698.25 / 2698.25 560 / 560 Balance 2573 / 2573 2698.25 / 2698.25 560 / 560 Lab / Micro Data 08/24/24 06:48 08/24/24 06:48 Labs: Laboratory Results - last 24 hr 08/24/24 17:15: Vancomycin Trough 17.5 H 08/25/24 04:44: Ammonia 18.0 Micro: Microbiology 08/18/24 18:59 Urine, Catheterized Urine Culture - Preliminary Corynebacterium jeikeium Aerococcus urinae Enterococcus raffinosus 08/18/24 18:54 Blood Culture (Wb) - Anticubital Left Blood Culture - Final Meth. resistant Staph. aureus 08/18/24 18:50 Blood Culture (Wb) - Anticubital Right Blood Culture - Final No growth in 5 days. 08/21/24 15:11 Nasal Secretion MRSA (PCR) - Final 08/19/24 01:35 Mucosa - Nasopharyngeal Respiratory Panel (PCR) - Final Physical Exam Const alert, no apparent distress and average body habitus Constitutional Narrative: Upper middle-aged male, energy level and mentation improved, alert and oriented x 1 to person only but this is reportedly his baseline, otherwise laying back comfortably in bed and in no acute distress. HEENT head/scalp atraumatic and moist oral mucous membranes Eyes PERRL, EOMs intact bilaterally and conjunctivae normal Resp normal respiratory effort, no use of accessory muscles and clear to auscultation bilaterally Cardio regular rate, regular rhythm and no murmurs GI GI Narrative: Mildly distended but otherwise soft and nontender to palpation. Stable. Extremity Extremity Narrative: Left hip with dressing in place. Assessment & Plan Assessment/Plan (1) Acute metabolic encephalopathy: (2) MRSA bacteremia: (3) Constipation: PLAN: Plan Patient is a 63-year-old male who presented to [facility] ED on 08/18/2024 with altered mental status and hypotension. 1. Sepsis secondary to MRSA bacteremia with unclear source, concern for UTI ? ID following. Met sepsis criteria on admission with hypotension, fevers and acute metabolic encephalopathy in setting of infection of unclear source. Blood culture positive for MRSA, unclear source. Urine culture with small growth of bacteria. CT abdomen pelvis showed stercoral colitis. TTE on 08/19 with no overt signs of endocarditis. DARREN on 08/24 was also unremarkable. Repeat blood cultures ordered on 08/23 and remain pending. Continue IV vancomycin and meropenem for now. Appreciate further ID recommendations. 2. Acute metabolic encephalopathy in setting of history of anoxic brain injury, schizoaffective disorder and cognitive impairment ? CT brain unremarkable. Suspected multifactorial from infection as above and possibly polypharmacy. Encephalopathy was improving during hospitalization but on 08/23, patient was alert but not answering questions appropriately for me. Continue home p.o. Abilify and benztropine. Treating with IV Keppra while inpatient. [place] level normal but will defer to nephrology on when safe to resume lithium. Notably trying to minimize oral medications as patient has severe constipation with fecalith as below. 3. Left hip fracture with acute on chronic debility ? Orthopedic surgery following. S/p left hip cephalomedullary fixation on 08/20. Patient tolerated procedure well, no intraoperative complications. Treating postoperative pain with IV Toradol as needed; notably trying to minimize opiates as able. 4. Severe impacted fecalith and stercoral colitis, improving ? GI following. CT abdomen pelvis on 08/19 showed moderate amount of stool in the large bowel suggestive of constipation with associated mild stercoral colitis of the rectosigmoid colon. Initially treated with enemas as well as lactulose, senna and Dulcolax suppositories. Patient did have some small bowel movements noted with this. S/p EGD on 08/23 with NG tube placement. Plan was for GoLytely through the feeding tube in preparation for colonoscopy on 08/24; however patient unfortunately pulled the feeding tube out on the evening of 08/23. He notably did receive some of the GoLytely. Patient has now had significant improvement in bowel movements with improvement in abdominal distention and discomfort. Continue regular diet with pur?ed solids and thin liquids. Will hold bowel regimen for now, can restart as needed. 5. Chronic oral dysphagia ? Speech therapy following. Patient with severe oral dysphagia and mild pharyngeal dysphagia noted on prior MBSS in 2023. Recommendation on this admission was for pur?ed solids with thin liquids and will continue this diet for now. 6. Chronic adrenal insufficiency ? There was initially concern for acute on chronic adrenal insufficiency and patient was on IV hydrocortisone for this. However with improvement in blood pressure with IV fluid resuscitation and improvement in sodium level, hydrocortisone was discontinued. Continue home p.o. hydrocortisone and fludrocortisone. Chronic medical conditions: ? Hypertension: Holding home propranolol for now. ? Hyperlipidemia: Continue home statin. ? Asthma/COPD: Stable on room air, not in acute exacerbation. Continue home inhalers. ? Chronic tobacco dependency: Nicotine patch in place per patient request. Discussed cessation on discharge. ? Seizure disorder: Continue IV Keppra as noted above. ? BPH with obstructive symptoms: Continue on Flomax. ? Chronic normocytic anemia: Hemoglobin stable between 7.5-8 for the past several days. Continue to monitor CBC daily. DVT prophylaxis: Eliquis 2.5 mg twice daily CODE STATUS: Full code, unverified Expected disposition: Likely back to long-term care facility, 1 to 2 days Total clinical time spent by myself addressing the patient's medical issues, reviewing all the data, and collaborating with patient's care team: 35 minutes. Charges/Coding Visit Charges Inpatient E&M: 36319 Subs Hosp L2
[2024-08-25] MEDS: Hydrocortisone 10 MG Tablet 5 MG PO (12:26)
[2024-08-25] MEDS: Hydrocortisone 10 MG Tablet PO ×2 (12:26→18:21)
[2024-08-25] MEDS: Fludrocortisone Acetate 0.1 MG Tablet 0.05 MG PO (12:27)
[2024-08-25] MEDS: Folic Acid 1 MG Tablet 0.5 MG PO (12:28)
[2024-08-25] MEDS: ARIPiprazole 10 MG Tablet PO (12:28)
[2024-08-25] MEDS: Benztropine 2 MG Tablet 1 MG PO ×2 (12:29→21:47)
[2024-08-25] MEDS: Cholecalciferol (VIT D3) 25 MCG TABLET (1,000 UNITS) PO (12:30)
[2024-08-25] MEDS: APIXABAN 2.5 MG TABLET (WCH) PO ×2 (12:30→21:47)
[2024-08-25] MEDS: Propranolol 10 MG Tablet 20 MG PO ×2 (12:30→21:47)
[2024-08-25] MEDS: Pantoprazole Sodium 40 MG in 0.9% Normal Saline (100mL MB+) 100 ML 330 MG IV (12:31)
[2024-08-25] MEDS: Calcium Carbonate 500 MG Tablet PO ×2 (12:34→18:21)
--- NOTE | 2024-08-25 13:54 | PN.ID_ITS ---
ID ID: Route of nutrition/ use of supplements: [] Nutritional Intake: [] IV Site: [] Mills Catheter: [] Patient is responsive overall clinically stable. No fevers. No cardiopulmonary distress. Currently on vancomycin plus meropenem. Microbiology data reviewed repeat blood cultures are pending. On exam vital signs reviewed remains euthermic. Lungs are clear heart exam S1- S2 no pathologic murmur appreciated abdomen soft nontender Assessment & Plan Assessment/Plan (1) MRSA bacteremia: PLAN: At this time we will continue parenteral antimicrobial therapy. Patient does have pancytopenia. Closely follow repeat blood cultures and laboratory studies
[2024-08-25] MEDS: Meropenem 1 GM in 0.9% Normal Saline (100mL Bag) 100 ML IV ×2 (14:48→22:00)
[2024-08-25 15:00] VITALS: BP 102/70; PULSE 60; RESP 18; TEMP 36.8; O2SAT 95
[2024-08-25] MEDS: Tamsulosin HCl 0.4 MG Capsule PO (18:20)
[2024-08-25] MEDS: ARIPiprazole 5 MG Tablet PO (21:48)
[2024-08-25] MEDS: MELATONIN 10 MG TABLET PO (21:48)
[2024-08-25] MEDS: Acetaminophen 325 MG Tablet 650 MG PO (21:49)
[2024-08-25 22:20] VITALS: BP 133/77; PULSE 63; RESP 18; TEMP 36.6; O2SAT 96
--- NOTE | 2024-08-26 00:17 | PCM.HOSP.N ---
Hospitalist Note Patient constantly removing telemetry, currently SR, appears VS clinically stable, will change LOC.
[2024-08-26 05:42] VITALS: BMI 22.4
[2024-08-26 06:10] VITALS: BP 111/74; PULSE 64; RESP 18; TEMP 36.4; O2SAT 96
[2024-08-26 07:22] LABS: Hematocrit 22.3 % (40-54); Hemoglobin 7.4 g/dL (13.0-16.5); Mean Corp Hgb Conc 33.2 g/dL (32-36); Mean Corpuscular Hgb 30.3 pg (27.0-32.0); Mean Corpuscular Volume 91.4 fL (80-94); Mean Platelet Vol. 10.3 fl (6.2-12.0); Platelet Count 124 K/mm3 (150-450); RBC Distribution Width CV 12.7 % (11.6-14.6); Red Blood Count 2.44 M/mm3 (4.6-6.2); White Blood Count 3.9 K/mm3 (4.4-11.0)
[2024-08-26 08:29] LABS: Phosphorus 2.5 mg/dL (2.7-4.5)
[2024-08-26 08:35] LABS: Anion Gap 8 (5-15); BUN 9 mg/dL (4-19); BUN/Creat Ratio 11.2 RATIO (10-20); Carbon Dioxide 22.9 mmol/L (21.0-32.0); Chloride 115 mmol/L (98-108); Creatinine, Serum 0.78 mg/dL (0.70-1.20); EST Glomerular Filtration Rate 100 (>60); Estimated Creatinine Clearance 97.48 ml/min (50-250); Glucose 110 mg/dL (70-99); Potassium 2.7 mmol/L (3.3-5.1); Sodium Level 145 mmol/L (133-145)
[2024-08-26 09:32] VITALS: BP 112/56; PULSE 62; RESP 16; TEMP 36.1; O2SAT 96
[2024-08-26] MEDS: Hydrocortisone 10 MG Tablet PO ×2 (09:36→16:49)
[2024-08-26] MEDS: Hydrocortisone 10 MG Tablet 5 MG PO (09:36)
[2024-08-26] MEDS: Fludrocortisone Acetate 0.1 MG Tablet 0.05 MG PO (09:37)
[2024-08-26] MEDS: Folic Acid 1 MG Tablet 0.5 MG PO (09:37)
[2024-08-26] MEDS: ARIPiprazole 10 MG Tablet PO (09:38)
[2024-08-26] MEDS: Propranolol 10 MG Tablet 20 MG PO ×2 (09:38→20:27)
[2024-08-26] MEDS: APIXABAN 2.5 MG TABLET (WCH) PO ×2 (09:38→20:28)
[2024-08-26] MEDS: Benztropine 2 MG Tablet 1 MG PO ×2 (09:38→20:27)
[2024-08-26] MEDS: Cholecalciferol (VIT D3) 25 MCG TABLET (1,000 UNITS) PO (09:39)
[2024-08-26] MEDS: 0.9% Saline Lock 10 ML Syringe IV ×5 (09:43→18:36)
[2024-08-26] MEDS: levETIRAcetam IV 1,000 MG/100 ML BAG 400 MG IV ×2 (09:43→20:30)
--- NOTE | 2024-08-26 09:53 | PN.ID_ITS ---
Physical Exam Narrative Feeling better, no fever, no new pain Const alert and no apparent distress General Appearance: cooperative Resp normal air movement and clear to auscultation bilaterally Cardio regular rate and regular rhythm GI soft to palpation, non-tender and non-distended Skin no rashes or lesions noted ID ID: Route of nutrition/ use of supplements: [] Nutritional Intake: [] IV Site: [] Mills Catheter: [] Assessment & Plan Assessment/Plan (1) MRSA bacteremia: PLAN: Presented with septic shock due to mrsa bacteremia, unclear source. Ucx with small growth bacteria. CT showed stercoral colitis. Concern for endocarditis given splinter hemorrhages on fingers. Repeat bcx neg since 08/23. DARREN neg for vegetation. Will order picc and 6 weeks iv vanc, stop date 10/04/24 with weekly labs and ID followup in 3-4 weeks. Will follow, wrote rx, d/w rn case management
[2024-08-26] MEDS: Pantoprazole Sodium 40 MG in 0.9% Normal Saline (100mL MB+) 100 ML 330 MG IV (10:28)
[2024-08-26] MEDS: Potassium Phosphate 30 MM in 0.9% Normal Saline (250mL Bag) 250 ML 42 MM IV (11:03)
[2024-08-26] MEDS: Haloperidol Lactate 5 MG/ML Vial IV ×2 (13:32→20:28)
[2024-08-26 15:32] VITALS: BP 117/70; PULSE 57; RESP 16; TEMP 36.3; O2SAT 96
--- NOTE | 2024-08-26 16:14 | PN.HOSP_ITS ---
Reason for Visit Reason for Visit: Diagnoses Sepsis, unspecified organism (08/19/24) Methicillin resistant Staphylococcus aureus infection as the cause of diseases classified elsewhere (08/19/24) Unspecified dementia, unspecified severity, with agitation (08/19/24) Schizoaffective disorder, unspecified (08/19/24) Depression, unspecified (08/19/24) Anxiety disorder, unspecified (08/19/24) Metabolic encephalopathy (08/19/24) Constipation, unspecified (08/19/24) Ulcer of intestine (08/19/24) Acute cystitis without hematuria (08/19/24) Other abnormalities of breathing (08/19/24) Severe sepsis with septic shock (08/19/24) Bacteremia (08/19/24) Fracture of unspecified part of neck of left femur, initial encounter for closed fracture (08/19/24) Displaced intertrochanteric fracture of left femur, initial encounter for closed fracture (08/19/24) Personal history of other mental and behavioral disorders (08/19/24) Personal history of other diseases of the nervous system and sense organs (08/19/24) Objective Data Objective Data Vital Signs: Vital Signs Temp Pulse Resp BP Pulse Ox O2 Del Method O2 Flow Rate 97.3 F L 57 L 16 117/70 96 Room Air 2 08/26/24 15:32 08/26/24 15:32 08/26/24 15:32 08/26/24 15:32 08/26/24 15:32 08/26/24 15:32 08/25/24 07:35 Oxygen Flow Rate (L/min) 2 Oxygen Delivery Method Room Air Weight: 156 lb 11.979 oz Body Mass Index (BMI) 22.4 Intake & Output: Intake and Output for Last 24 Hours 08/24/24 08/25/24 08/26/24 23:59 23:59 23:59 Intake Total 2698.25 / 2698.25 1420 / 1670 810 / 810 Balance 2698.25 / 2698.25 1420 / 1670 810 / 810 Lab / Micro Data 08/26/24 07:03 08/26/24 07:03 Labs: Laboratory Results - last 24 hr 08/26/24 07:03: WBC 3.9 L, RBC 2.44 L, Hgb 7.4 L, Hct 22.3 L, MCV 91.4, MCH 30.3, MCHC 33.2, RDW Std Deviation 42.0, RDW Coeff of Eyal 12.7, Plt Count 124 L, MPV 10.3, Sodium 145, Potassium 2.7 L*, Chloride 115 H, Carbon Dioxide 22.9, Anion Gap 8, BUN 9, Creatinine 0.78, Estim Creat Clear Calc 97.48, Est GFR (MDRD) Non-Af 100, BUN/Creatinine Ratio 11.2, Glucose 110 H, Calcium 8.0, P hosphorus 2.5 L Micro: Microbiology 08/24/24 11:23 Blood Culture (Wb) - Anticubital Right Blood Culture - Preliminary No growth in 48 hours. 08/18/24 18:59 Urine, Catheterized Urine Culture - Final Corynebacterium jeikeium Aerococcus urinae Enterococcus raffinosus 08/23/24 13:39 Blood Culture (Wb) - Right Hand Blood Culture - Preliminary No growth in 48 hours. 08/18/24 18:54 Blood Culture (Wb) - Anticubital Left Blood Culture - Final Meth. resistant Staph. aureus 08/18/24 18:50 Blood Culture (Wb) - Anticubital Right Blood Culture - Final No growth in 5 days. 08/21/24 15:11 Nasal Secretion MRSA (PCR) - Final 08/19/24 01:35 Mucosa - Nasopharyngeal Respiratory Panel (PCR) - Final Physical Exam Narrative Seen and examined. Mental status better. Chronic garbled speech but overall is stated that he is feeling better and moving bowel. Patient was admitted with hypotension generalized weakness and altered mental status possible due to septic shock. Unclear how he fractured his left hip but he complained of left hip and not able to flex. Mild low-grade grade fever. Could not tell about dysuria or other symptoms. Physical exam General: Awake, orientation cannot be ascertained, intermittent agitation and restlessness during nighttime. HEENT: Atraumatic, PERRLA, EOMI, Normocephalic. Oral: No Gingival or Mucosal Lesions/ Ulcerations Neck: Supple, No JVD, Negative Carotid Bruits Chest wall/Lungs: Air entry diminished in bilateral lung bases. No crepitation/rhonchi Cardiovascular: Regular rate and rhythm, Normal S1,S2, systolic murmur Abdomen: Moving bowel, chronic constipation. Bowel Sounds sluggish, soft, Non Tender, Non-Distended : Mills catheter no renal angle tenderness. No suprapubic tenderness. Extremities: No edema, Capillary Refill Less than 3 Seconds Skin: No rashes, No breakdown Musculoskeletal: Tenderness over left hip, flexed deformity. No Tenderness to Palpation of other joints or Extremities Neurological: Does not follow command therefore complete neuroexam unobtainable. No obvious focal lateralizing sign Psych/Mental Status: Flat affect, schizophrenia Assessment & Plan Assessment/Plan (1) Acute metabolic encephalopathy: (2) MRSA bacteremia: (3) Constipation: PLAN: Plan Patient is a 63-year-old male who presented to [facility] ED on 08/18/2024 with altered mental status and hypotension. 1. Sepsis secondary to MRSA bacteremia with unclear source, concern for UTI ? ID following. Met sepsis criteria on admission with hypotension, fevers and acute metabolic encephalopathy in setting of infection of unclear source. Blood culture positive for MRSA, unclear source. Urine culture with small growth of bacteria. CT abdomen pelvis showed stercoral colitis. TTE on 08/19 with no overt signs of endocarditis. DARREN on 08/24 was also unremarkable. Repeat blood cultures ordered on 08/23 and remain pending. Continue IV vancomycin and meropenem for now. Appreciate further ID recommendations. 08/26: Repeat blood culture on 08/23 negative. DARREN negative for vegetation. EF 60%. Bubble contrast study negative for PFO/ASD. Mild AI. PICC line and 6 weeks of IV vancomycin. Stop date 10/04/2024 with weekly labs and ID follow-up in 3 to 4 weeks. 2. Acute metabolic encephalopathy in setting of history of anoxic brain injury, schizoaffective disorder and cognitive impairment ? CT brain unremarkable. Suspected multifactorial from infection as above and possibly polypharmacy. Encephalopathy was improving during hospitalization but on 08/23, patient was alert but not answering questions appropriately for me. Continue home p.o. Abilify and benztropine. Treating with IV Keppra while inpatient. [place] level normal but will defer to nephrology on when safe to resume lithium. Notably trying to minimize oral medications as patient has severe constipation with fecalith as below. 3. Left hip fracture with acute on chronic debility ? Orthopedic surgery following. S/p left hip cephalomedullary fixation on 08/20. Patient tolerated procedure well, no intraoperative complications. Treating postoperative pain with IV Toradol as needed; notably trying to minimize opiates as able. 4. Severe impacted fecalith and stercoral colitis, improving ? GI following. CT abdomen pelvis on 08/19 showed moderate amount of stool in the large bowel suggestive of constipation with associated mild stercoral colitis of the rectosigmoid colon. Initially treated with enemas as well as lactulose, senna and Dulcolax suppositories. Patient did have some small bowel movements noted with this. S/p EGD on 08/23 with NG tube placement. Plan was for GoLytely through the feeding tube in preparation for colonoscopy on 08/24; however patient unfortunately pulled the feeding tube out on the evening of 08/23. He notably did receive some of the GoLytely. Patient has now had significant improvement in bowel movements with improvement in abdominal distention and discomfort. Continue regular diet with pur?ed solids and thin liquids. Will hold bowel regimen for now, can restart as needed. 08/26: Patient moving bowel. Severe hypokalemia, IV potassium phosphate ordered 5. Chronic oral dysphagia ? Speech therapy following. Patient with severe oral dysphagia and mild pharyngeal dysphagia noted on prior MBSS in 2023. Recommendation on this admission was for pur?ed solids with thin liquids and will continue this diet for now. 6. Chronic adrenal insufficiency ? There was initially concern for acute on chronic adrenal insufficiency and patient was on IV hydrocortisone for this. However with improvement in blood pressure with IV fluid resuscitation and improvement in sodium level, hydrocortisone was discontinued. Continue home p.o. hydrocortisone and fludrocortisone. Chronic medical conditions: ? Hypertension: Holding home propranolol for now. ? Hyperlipidemia: Continue home statin. ? Asthma/COPD: Stable on room air, not in acute exacerbation. Continue home inhalers. ? Chronic tobacco dependency: Nicotine patch in place per patient request. Discussed cessation on discharge. ? Seizure disorder: Continue IV Keppra as noted above. ? BPH with obstructive symptoms: Continue on Flomax. ? Chronic normocytic anemia: Hemoglobin stable between 7.5-8 for the past several days. Continue to monitor CBC daily. DVT prophylaxis: Eliquis 2.5 mg twice daily CODE STATUS: Full code, unverified Expected disposition: Likely back to long-term care facility, 1 to 2 days Total clinical time spent by myself addressing the patient's medical issues, reviewing all the data, and collaborating with patient's care team: 35 minutes. Charges/Coding Visit Charges Inpatient E&M: 92517 Subs Hosp L2
[2024-08-26] MEDS: Senna/Docusate Sodium 1 Tablet 2 TABLET PO ×2 (16:48→20:27)
[2024-08-26] MEDS: Polyethylene Glycol 3350 17 GM PACKET PO (16:48)
[2024-08-26] MEDS: Tamsulosin HCl 0.4 MG Capsule PO (16:50)
[2024-08-26 18:00] LABS: Vancomycin, Trough Level 18.9 ug/mL (5.0-15.0)
--- NOTE | 2024-08-26 18:19 | PCM.RX.CS ---
Consult Antibiotic Management Pharmacy has been consulted to manage selected antibiotic: Vancomycin Type of Intervention Type of Consult: Follow-up Suspected Infection Suspected Infection: Bacteremia Prior Doses of Antibiotics Prior Doses of Antibiotics Received/Current Regimen: Vancomycin 1000 mg IV Q12H last given 08/26/24 @ 0500 Labs Labs: Sodium 145 mmol/L (133-145) 08/26/24 07:03 Potassium 2.7 mmol/L (3.3-5.1) L* 08/26/24 07:03 Chloride 115 mmol/L (98-108) H 08/26/24 07:03 Carbon Dioxide 22.9 mmol/L (21.0-32.0) 08/26/24 07:03 Anion Gap 8 (5-15) 08/26/24 07:03 BUN 9 mg/dL (4-19) 08/26/24 07:03 Creatinine 0.78 mg/dL (0.70-1.20) 08/26/24 07:03 Est GFR (MDRD) Non-Af 100 (>60) 08/26/24 07:03 BUN/Creatinine Ratio 11.2 RATIO (10-20) 08/26/24 07:03 Glucose 110 mg/dL (70-99) H 08/26/24 07:03 Vancomycin Trough 18.9 ug/mL (5.0-15.0) H 08/26/24 16:34 Microbiology Microbiology: Microbiology 08/24/24 11:23 Blood Culture (Wb) - Anticubital Right Blood Culture - Preliminary No growth in 48 hours. 08/18/24 18:59 Urine, Catheterized Urine Culture - Final Corynebacterium jeikeium Aerococcus urinae Enterococcus raffinosus 08/23/24 13:39 Blood Culture (Wb) - Right Hand Blood Culture - Preliminary No growth in 48 hours. 08/18/24 18:54 Blood Culture (Wb) - Anticubital Left Blood Culture - Final Meth. resistant Staph. aureus 08/18/24 18:50 Blood Culture (Wb) - Anticubital Right Blood Culture - Final No growth in 5 days. 08/21/24 15:11 Nasal Secretion MRSA (PCR) - Final 08/19/24 01:35 Mucosa - Nasopharyngeal Respiratory Panel (PCR) - Final Dosing Weight Weight used for dosin kg Estimated Creatinine Clearance Estimated Creatinine Clearance: ~ 97 Goal Trough Goal Trough: 15-20 mcg/mL Pharmacy Plan for Drug Dosing Pharmacy Plan for Drug Dosing: Vancomycin trough = 18.9, continue current dosing, trough in 4 days. Pharmacy Service will continue to monitor and adjust dosing as required. Follow-Up Labs Follow-Up Labs: Trough: Vancomycin Date/Time Labs Ordered Labs to be done on [date and time ordered]: 08/30/24 @ 1142
[2024-08-26] MEDS: Vancomycin IV 1,000 MG/200 ML BAG 200 MG IV (18:36)
[2024-08-26] MEDS: ARIPiprazole 5 MG Tablet PO (20:27)
[2024-08-26] MEDS: MELATONIN 10 MG TABLET PO (20:27)
[2024-08-26 21:15] VITALS: BP 120/68; PULSE 63; RESP 18; TEMP 36.9; O2SAT 96
[2024-08-27 03:15] VITALS: BP 122/70; PULSE 65; RESP 18; TEMP 36.4; O2SAT 95
[2024-08-27] MEDS: Haloperidol Lactate 5 MG/ML Vial IV (04:28)
[2024-08-27] MEDS: Vancomycin IV 1,000 MG/200 ML BAG 200 MG IV (04:29)
[2024-08-27] MEDS: 0.9% Saline Lock 10 ML Syringe IV ×2 (04:29→13:59)
[2024-08-27 05:33] VITALS: BMI 22.4
[2024-08-27 07:37] LABS: Absolute Lymphocyte Count 1.04 X10^3/uL (0.83-4.51); Absolute Neutrophil Count 1.8 X10^3/uL (2.0-7.7); Basophil# 0.01 X10^3/uL; Basophil% 0.3 % (0-1); Eosinophil# 0.17 X10^3/uL; Eosinophils% 5.1 % (0-5); Hematocrit 21.6 % (40-54); Hemoglobin 7.2 g/dL (13.0-16.5); Lymphocyte # 1.04 X10^3/ul (0.83-4.51); Mean Corp Hgb Conc 33.3 g/dL (32-36); Mean Corpuscular Hgb 30.3 pg (27.0-32.0); Mean Corpuscular Volume 90.8 fL (80-94); Mean Platelet Vol. 10.4 fl (6.2-12.0); Monocyte# 0.34 X10^3/uL; Monocyte% 10.1 % (0-10); NRBC Flagged by Analyzer 0 % (0-5); Neutrophil # 1.77 X10^3/uL (2.7-7.7); Neutrophil % 52.9 % (47-70); Platelet Count 133 K/mm3 (150-450); RBC Distribution Width CV 12.7 % (11.6-14.6); RBC Distribution Width SD 40.8 fl (35.1-43.9); Red Blood Count 2.38 M/mm3 (4.6-6.2); White Blood Count 3.4 K/mm3 (4.4-11.0)
[2024-08-27 08:05] LABS: Anion Gap 8 (5-15); BUN 9 mg/dL (4-19); BUN/Creat Ratio 11.8 RATIO (10-20); Carbon Dioxide 22.4 mmol/L (21.0-32.0); Chloride 114 mmol/L (98-108); Creatinine, Serum 0.77 mg/dL (0.70-1.20); EST Glomerular Filtration Rate 101 (>60); Estimated Creatinine Clearance 98.61 ml/min (50-250); Glucose 98 mg/dL (70-99); Magnesium 2.2 mg/dL (1.5-2.2); Phosphorus 2.8 mg/dL (2.7-4.5); Potassium 2.9 mmol/L (3.3-5.1); Sodium Level 144 mmol/L (133-145)
[2024-08-27 09:35] VITALS: BP 126/76; PULSE 51; RESP 16; TEMP 36.7; O2SAT 94
[2024-08-27] MEDS: Propranolol 10 MG Tablet 20 MG PO (09:49)
[2024-08-27] MEDS: levETIRAcetam 1,000 MG Tablet 1000 MG PO (09:49)
[2024-08-27] MEDS: Senna/Docusate Sodium 1 Tablet 2 TABLET PO (09:49)
[2024-08-27] MEDS: ARIPiprazole 10 MG Tablet PO (09:50)
[2024-08-27] MEDS: Folic Acid 1 MG Tablet 0.5 MG PO (09:50)
[2024-08-27] MEDS: Pantoprazole Sodium 40 MG Tablet PO (09:50)
[2024-08-27] MEDS: Benztropine 2 MG Tablet 1 MG PO (09:50)
[2024-08-27] MEDS: Cholecalciferol (VIT D3) 25 MCG TABLET (1,000 UNITS) PO (09:50)
[2024-08-27] MEDS: APIXABAN 2.5 MG TABLET (WCH) PO (09:50)
[2024-08-27] MEDS: Hydrocortisone 10 MG Tablet PO (09:51)
[2024-08-27] MEDS: Fludrocortisone Acetate 0.1 MG Tablet 0.05 MG PO (09:51)
[2024-08-27] MEDS: Hydrocortisone 10 MG Tablet 5 MG PO (09:51)
[2024-08-27] MEDS: Polyethylene Glycol 3350 17 GM PACKET PO (09:52)
[2024-08-27] MEDS: Acetaminophen 325 MG Tablet 650 MG PO (09:52)
--- NOTE | 2024-08-27 10:01 | PCM.TXEXTCAR ---
Diet Diet Order/Speech Therapy: INPATIENT Hospital Diet / Speech Therapy Order(s) 08/24/24 14:26 Diet: Regular - General Food consistency:: Pureed Liquid Consistency:: Regular/Thin Routine Orders/Code Status Routine Lab Work: CBC (Q. weekly), BMP (Q. weekly) and - (LFT Q weekly while on IV vancomycin. ) DC O2, CPAP, BIPAP needs Home O2 Discharge instructions: No Wound(s) left hip: Wound Type: Surgical Incision left good: Wound Type: Abrasion Problem/Diagnosis (1) Acute metabolic encephalopathy: Status: Acute Code(s): G93.41 - Metabolic encephalopathy (2) MRSA bacteremia: Status: Acute Code(s): R78.81 - Bacteremia; B95.62 - Methicillin resistant Staphylococcus aureus infection as the cause of diseases classified elsewhere (3) Constipation: Status: Acute Code(s): K59.00 - Constipation, unspecified (4) Hip fracture: Status: Acute Code(s): S72.009A - Fracture of unspecified part of neck of unspecified femur, initial encounter for closed fracture Plan Patient is a 63-year-old male who presented to [facility] ED on 08/18/2024 with altered mental status and hypotension. 1. Sepsis secondary to MRSA bacteremia with unclear source, concern for UTI ? ID following. Met sepsis criteria on admission with hypotension, fevers and acute metabolic encephalopathy in setting of infection of unclear source. Blood culture positive for MRSA, unclear source. Urine culture with small growth of bacteria. CT abdomen pelvis showed stercoral colitis. TTE on 08/19 with no overt signs of endocarditis. DARREN on 08/24 was also unremarkable. Repeat blood cultures ordered on 08/23 and remain pending. Continue IV vancomycin and meropenem for now. Appreciate further ID recommendations. 08/26: Repeat blood culture on 08/23 negative. DARREN negative for vegetation. EF 60%. Bubble contrast study negative for PFO/ASD. Mild AI. PICC line and 6 weeks of IV vancomycin. Stop date 10/04/2024 with weekly labs and ID follow-up in 3 to 4 weeks. 2. Acute metabolic encephalopathy in setting of history of anoxic brain injury, schizoaffective disorder and cognitive impairment ? CT brain unremarkable. Suspected multifactorial from infection as above and possibly polypharmacy. Encephalopathy was improving during hospitalization but on 08/23, patient was alert but not answering questions appropriately for me. Continue home p.o. Abilify and benztropine. Treating with IV Keppra while inpatient. [place] level normal but will defer to nephrology on when safe to resume lithium. Notably trying to minimize oral medications as patient has severe constipation with fecalith as below. 08/27: Patient is on baseline mental function with history of schizoaffective disorder and cognitive impairment. Patient was put back on his home medications of Haldol 1 mg 3 times daily, divalproex 125 mg 3 times daily. 3. Left hip fracture with acute on chronic debility ? Orthopedic surgery following. S/p left hip cephalomedullary fixation on 08/20. Patient tolerated procedure well, no intraoperative complications. Treating postoperative pain with IV Toradol as needed; notably trying to minimize opiates as able. 08/27: Follow-up with the hip surgeon Dr. Hermosillo 4. Severe impacted fecalith and stercoral colitis, improving ? GI following. CT abdomen pelvis on 08/19 showed moderate amount of stool in the large bowel suggestive of constipation with associated mild stercoral colitis of the rectosigmoid colon. Initially treated with enemas as well as lactulose, senna and Dulcolax suppositories. Patient did have some small bowel movements noted with this. S/p EGD on 08/23 with NG tube placement. Plan was for GoLytely through the feeding tube in preparation for colonoscopy on 08/24; however patient unfortunately pulled the feeding tube out on the evening of 08/23. He notably did receive some of the GoLytely. Patient has now had significant improvement in bowel movements with improvement in abdominal distention and discomfort. Continue regular diet with pur?ed solids and thin liquids. Will hold bowel regimen for now, can restart as needed. 08/26: Patient moving bowel. Severe hypokalemia, IV potassium phosphate ordered 08/27: Patient did start bowel movement. Follow-up in GI office 5. Chronic oral dysphagia ? Speech therapy following. Patient with severe oral dysphagia and mild pharyngeal dysphagia noted on prior MBSS in 2023. Recommendation on this admission was for pur?ed solids with thin liquids and will continue this diet for now. 6. Chronic adrenal insufficiency ? There was initially concern for acute on chronic adrenal insufficiency and patient was on IV hydrocortisone for this. However with improvement in blood pressure with IV fluid resuscitation and improvement in sodium level, hydrocortisone was discontinued. Continue home p.o. hydrocortisone and fludrocortisone. Chronic medical conditions: ? Hypertension: Holding home propranolol for now. ? Hyperlipidemia: Continue home statin. ? Asthma/COPD: Stable on room air, not in acute exacerbation. Continue home inhalers. ? Chronic tobacco dependency: Nicotine patch in place per patient request. Discussed cessation on discharge. ? Seizure disorder: Continue IV Keppra as noted above. ? BPH with obstructive symptoms: Continue on Flomax. ? Chronic normocytic anemia: Hemoglobin stable between 7.5-8 for the past several days. Continue to monitor CBC daily. DVT prophylaxis: Eliquis 2.5 mg twice daily CODE STATUS: Full code, unverified Discharge medication reconciliation done. Discharge follow-up instructions completed. Discharge process discussed with the patient and all questions were answered to patient's satisfaction. Follow with PCP in 1 to 2 weeks Total time spent, exact 35 minutes on discharge meds reconciliation, examination, coordination of care with nurses and ancillary staff, review of imaging and blood test and discussion with the patient on follow-up instructions. Allergies/Procedures Done in Hospital Allergies ciprofloxacin (From Cipro) Adverse Reaction (Verified 11/12/15 19:37) Hives codeine Adverse Reaction (Verified 11/12/15 19:37) Hives Penicillins Adverse Reaction (Verified 11/12/15 19:37) Hives sulfamethoxazole (From Bactrim) Adverse Reaction (Verified 11/12/15 19:37) Hives trimethoprim (From Bactrim) Adverse Reaction (Verified 11/12/15 19:37) Hives Type of Care/Length of Stay Estimated LOS: Convalescent Care Less Than 30 days Type of Care Needed: Intermediate Rehab Potential: Fair Prognosis: Fair Additional Orders/Day of Discharge Day of Discharge: 08/27/24 Dietary and Speech Recommendations Dietitian Recommendations/Changes: Continue Regular diet with texture/consistency per [employer]/MD to manage swallowing difficulties. Discharge Plan Admission Admit Date/Time: 08/19/24 00:04 Primary Reason for Your Visit: Acute encephalopathy, sepsis, left hip fracture Attending Provider: Marciano Guerin Primary Care Provider: Mani Balderas Consulting Providers: Robert Huizar; Amauri Hermosillo; Marciano Guerin; Laci Jackson; Jonnathan Campuzano; Devin Bates; Scott Blandon; Lupillo Porras; Robert Fitch; Edwin Espinal; Kt Garcia; Antonia Parsons; Jose Johnson; Alok Germain; William Leon; Sanjuana Wasserman; Tomer Hawkins; Kassi Hamilton; Dominic Hamilton; Beltran Dubois; Jj Lutz; Winston Steel; Yazan Cortés; Allen Dunham; Braulio Mitchell; Cb Amor; Yann Ji; Redd Laughlin Discharge Orders/Prescriptions Prescriptions: New vancomycin in dextrose 5 % 1 gram/200 mL Piggyback 1,000 mg IV Q12H 39 Days Qty: 39030 0RF Rx Instructions: stop date 10/04/24. Dx: MRSA bacteremia. Weekly bmp, cbc, and vanc trough. Fax to [phone]. Routine picc care per protocol. oxycodone 5 mg Tablet 2.5 mg PO Q4H PRN PRN (Reason: Pain Score 4-10) 3 Days Qty: 7 0RF Eliquis 5 mg Tablet 2.5 mg PO BID 20 Days Qty: 0 0RF sennosides-docusate sodium [Stimulant Laxative Plus] 8.6-50 mg Tablet 2 tab PO BID Qty: 0 0RF propranolol 10 mg Tablet 20 mg PO BID Qty: 0 0RF pantoprazole 40 mg Tablet,Delayed Release (Dr/Ec) 40 mg PO BID Qty: 0 0RF Continued albuterol sulfate 2.5 MG/3 ML solution for nebulization 2.5 mg inhalation Q6H PRN PRN (Reason: Sob &/Or Wheezing) bisacodyl 10 MG suppository 10 mg RECTAL DAILY PRN PRN (Reason: Constipation) divalproex [Depakote Sprinkles] 125 MG capsule, delayed rel sprinkle 125 mg PO Q8H aripiprazole 5 MG tablet 5 mg PO QHS Cepacol Sore Throat (lisseth-men) 1 EACH lozenge 1 blaire buccal PRN PRN (Reason: Sore Throat) acetaminophen [Tylenol] 325 MG tablet 650 mg PO Q4H PRN (Reason: Headache) polyethylene glycol 3350 17 GM powder in packet 17 g PO DAILY lithium carbonate 300 MG tablet extended release 300 mg PO BID haloperidol 1 MG tablet 1 mg PO TID guaifenesin 10 ML liquid 10 ml PO Q4H PRN PRN (Reason: Cough) magnesium hydroxide 30 ML suspension 30 ml PO DAILY PRN PRN (Reason: Constipation) tamsulosin [Flomax] 0.4 MG capsule 0.4 mg PO DAILY fludrocortisone 0.1 MG tablet 0.05 mg PO DAILY@0800 lorazepam [Ativan] 0.5 mg tablet 0.5 mg PO Q6H PRN (Reason: anxiety) haloperidol lactate 5 mg/mL solution 5 mg IM Q3H PRN (Reason: agitation) diphenhydramine HCl 50 mg/mL solution 50 mg IM Q6H PRN (Reason: agitation) Patient Comments: [NO ORIGINAL SIG] folic acid 400 mcg tablet 400 mcg PO DAILY hydrocortisone 10 mg tablet 10 mg PO BID hydrocortisone 5 mg tablet 5 mg PO DAILY atorvastatin 40 mg tablet 40 mg PO QHS lorazepam 1 mg tablet 1 mg PO TID melatonin 3 mg capsule 6 mg PO QHS Nicotrol 10 mg cartridge 1 inh inhalation Q2H PRN (Reason: nicotine cravings) nicotine (polacrilex) 2 mg lozenge 2 mg mucous membrane Q2H PRN (Reason: nicotine cravings) paroxetine HCl 20 mg tablet 20 mg PO DAILY benztropine 1 mg tablet 1 mg PO BID aripiprazole 10 mg tablet 10 mg PO DAILY calcium carbonate [Calcium 500] 500 mg calcium (1,250 mg) tablet,chewable 500 mg PO BID cholecalciferol (vitamin D3) [Vitamin D3] 50 mcg (2,000 unit) tablet 4,000 unit PO DAILY Changed lactulose [Enulose] 10 gram/15 mL solution 20 g PO TID 30 Days Qty: 0 0RF Discontinued alum-mag hydroxide-simeth [Mag-Al Plus Extra Strength] 30 ML suspension 30 ml PO Q4H PRN PRN (Reason: Indigestion) docusate sodium [Col-Rite] 100 mg capsule 100 mg PO DAILY propranolol 80 mg tablet 80 mg PO BID loperamide 2 mg tablet 4 mg PO .COMPLEX PRN (Reason: loose stool) Rx Instructions: 4 mg orally give 2 tablets by mouth as needed for loose stool may give 1 tablet PO after each subsequent stool. DO NOT exceed 4 tablets in 24 hours PRN; paroxetine HCl [Paxil] 20 mg tablet 20 mg PO DAILY Referrals / Follow Up: Mani Balderas MD [Primary Care Provider] - Within 2 Weeks Lupillo Porras DO [Med Staff - Active Staff] - Laci Jackson MD [Med Staff - Active Staff] - Within 1 Month Disposition Disposition (needs filled in before D/C Order can be placed): [facility] (4) Hip fracture Qualifiers: Encounter type: initial encounter Fracture type: closed Laterality: left Qualified Code(s): S72.002A - Fracture of unspecified part of neck of left femur, initial encounter for closed fracture
[2024-08-27] MEDS: Potassium Chloride Oral Tablet 20 MEQ 40 MEQ PO ×2 (11:04→14:00)
--- NOTE | 2024-08-27 12:56 | DS.PCM_ITS ---
Providers Date of Admission: 08/19/24 Primary Care Physician: Dr. Mani Balderas MD Consultations 08/19/24 01:30 Consult: [employer] Administrator / Pulmonary Medicine Routine Consulting Provider: Intensivists/Pulmonary Med Reason for Consult: UTI with Hypotension and Adrenal Insufficiency. EMERGENT Consult: No MD Notified: Yes Date Notified: 08/23/24 Time Notified: 08:19 Method of Notification: Text 08/19/24 04:12 Consult: Orthopedics Routine Consulting Provider: Amauri Hermosillo Reason for Consult: Acute Left Hip Fx on CT. EMERGENT Consult: No MD Notified: Yes Date Notified: 08/19/24 Time Notified: 04:12 Method of Notification: ED Physician Initiated 08/20/24 09:02 Consult: Gastroenterology Routine Consulting Provider: [facility] Reason for Consult: stercoral colitis of RS and whole colon, fecolith EMERGENT Consult: No Notified: Yes Date Notified: 08/20/24 Time Notified: 09:02 Method of Notification: Verbal 08/23/24 08:11 Consult: Infectious Disease Routine Consulting Provider: Laci Jackson Reason for Consult: MRSA bacteremia EMERGENT Consult: No Notified: Yes Date Notified: 08/23/24 Time Notified: 08:11 Method of Notification: Text Reason For Visit: UTI, HYPOTENSION, AMS AND HYPOXIA Diagnosis Discharge Diagnosis (1) Acute metabolic encephalopathy: Status: Acute Code(s): G93.41 - Metabolic encephalopathy (2) MRSA bacteremia: Status: Acute Code(s): R78.81 - Bacteremia; B95.62 - Methicillin resistant Staphylococcus aureus infection as the cause of diseases classified elsewhere (3) Constipation: Status: Acute Code(s): K59.00 - Constipation, unspecified (4) Hip fracture: Status: Acute Code(s): S72.009A - Fracture of unspecified part of neck of unspecified femur, initial encounter for closed fracture Qualifiers: Encounter type: initial encounter Fracture type: closed Laterality: l eft Qualified Code(s): S72.002A - Fracture of unspecified part of neck of left femur, initial encounter for closed fracture Plan Patient is a 63-year-old male who presented to [facility] ED on 08/18/2024 with altered mental status and hypotension. 1. Sepsis secondary to MRSA bacteremia with unclear source, concern for UTI ? ID following. Met sepsis criteria on admission with hypotension, fevers and acute metabolic encephalopathy in setting of infection of unclear source. Blood culture positive for MRSA, unclear source. Urine culture with small growth of bacteria. CT abdomen pelvis showed stercoral colitis. TTE on 08/19 with no overt signs of endocarditis. DARREN on 08/24 was also unremarkable. Repeat blood cultures ordered on 08/23 and remain pending. Continue IV vancomycin and meropenem for now. Appreciate further ID recommendations. 08/26: Repeat blood culture on 08/23 negative. DARREN negative for vegetation. EF 60%. Bubble contrast study negative for PFO/ASD. Mild AI. PICC line and 6 weeks of IV vancomycin. Stop date 10/04/2024 with weekly labs and ID follow-up in 3 to 4 weeks. 08/27: Prescription for IV antibiotics given by ID. Patient has right arm PICC line. Ordered for weekly labs. Rest as mentioned above. 2. Acute metabolic encephalopathy in setting of history of anoxic brain injury, schizoaffective disorder and cognitive impairment ? CT brain unremarkable. Suspected multifactorial from infection as above and possibly polypharmacy. Encephalopathy was improving during hospitalization but on 08/23, patient was alert but not answering questions appropriately for me. Continue home p.o. Abilify and benztropine. Treating with IV Keppra while inpatient. [place] level normal but will defer to nephrology on when safe to resume lithium. Notably trying to minimize oral medications as patient has severe constipation with fecalith as below. 08/27: Patient is on baseline mental function with history of schizoaffective disorder and cognitive impairment. Patient was put back on his home medications of Haldol 1 mg 3 times daily, divalproex 125 mg 3 times daily. 3. Left hip fracture with acute on chronic debility ? Orthopedic surgery following. S/p left hip cephalomedullary fixation on 08/20. Patient tolerated procedure well, no intraoperative complications. Treating postoperative pain with IV Toradol as needed; notably trying to minimize opiates as able. 08/27: Follow-up with the hip surgeon Dr. Hermosillo 4. Severe impacted fecalith and stercoral colitis, improving ? GI following. CT abdomen pelvis on 08/19 showed moderate amount of stool in the large bowel suggestive of constipation with associated mild stercoral colitis of the rectosigmoid colon. Initially treated with enemas as well as lactulose, senna and Dulcolax suppositories. Patient did have some small bowel movements noted with this. S/p EGD on 08/23 with NG tube placement. Plan was for GoLytely through the feeding tube in preparation for colonoscopy on 08/24; however patient unfortunately pulled the feeding tube out on the evening of 08/23. He notably did receive some of the GoLytely. Patient has now had significant improvement in bowel movements with improvement in abdominal distention and discomfort. Continue regular diet with pur?ed solids and thin liquids. Will hold bowel regimen for now, can restart as needed. 08/26: Patient moving bowel. Severe hypokalemia, IV potassium phosphate ordered 08/27: Patient did start bowel movement. Follow-up in GI office 5. Chronic oral dysphagia ? Speech therapy following. Patient with severe oral dysphagia and mild pharyngeal dysphagia noted on prior MBSS in 2023. Recommendation on this admission was for pur?ed solids with thin liquids and will continue this diet for now. 6. Chronic adrenal insufficiency ? There was initially concern for acute on chronic adrenal insufficiency and patient was on IV hydrocortisone for this. However with improvement in blood pressure with IV fluid resuscitation and improvement in sodium level, hydrocortisone was discontinued. Continue home p.o. hydrocortisone and fludrocortisone. Chronic medical conditions: ? Hypertension: Holding home propranolol for now. ? Hyperlipidemia: Continue home statin. ? Asthma/COPD: Stable on room air, not in acute exacerbation. Continue home inhalers. ? Chronic tobacco dependency: Nicotine patch in place per patient request. Discussed cessation on discharge. ? Seizure disorder: Continue IV Keppra as noted above. ? BPH with obstructive symptoms: Continue on Flomax. ? Chronic normocytic anemia: Hemoglobin stable between 7.5-8 for the past several days. Continue to monitor CBC daily. DVT prophylaxis: Eliquis 2.5 mg twice daily CODE STATUS: Full code, unverified Discharge medication reconciliation done. Discharge follow-up instructions completed. Discharge process discussed with the patient and all questions were answered to patient's satisfaction. Follow with PCP in 1 to 2 weeks Total time spent, exact 35 minutes on discharge meds reconciliation, examination, coordination of care with nurses and ancillary staff, review of imaging and blood test and discussion with the patient on follow-up instructions. Medications at Discharge Home Medications acetaminophen 325 mg tablet (Tylenol) 650 mg PO Q4H PRN Headache 05/26/17 albuterol sulfate 2.5 mg/3 mL (0.083 %) solution for nebulization 2.5 mg inhalation Q6H PRN PRN Sob &/Or Wheezing 05/26/17 aripiprazole 5 mg tablet 5 mg PO QHS blood thinner 05/26/17 benzocaine 15 mg-menthol 3.6 mg lozenges (Cepacol Sore Throat (benzocaine- menthol)) 1 blaire buccal PRN PRN Sore Throat 05/26/17 bisacodyl 10 mg rectal suppository 10 mg RECTAL DAILY PRN PRN Constipation 05/26/17 divalproex 125 mg capsule,delayed release sprinkle (Depakote Sprinkles) 125 mg PO Q8H schizophrednia 05/26/17 fludrocortisone 0.1 mg tablet 0.05 mg PO DAILY@0800 abn labs 05/26/17 guaifenesin 100 mg/5 mL oral liquid 10 ml PO Q4H PRN PRN Cough 05/26/17 haloperidol 1 mg tablet 1 mg PO TID anxiety 05/26/17 lithium carbonate 300 mg tablet,extended release 300 mg PO BID biopolar 05/26/17 magnesium hydroxide 400 mg/5 mL oral suspension 30 ml PO DAILY PRN PRN Constipation 05/26/17 polyethylene glycol 3350 17 gram oral powder packet 17 g PO DAILY constipation 05/26/17 tamsulosin 0.4 mg capsule (Flomax) 0.4 mg PO DAILY urinary retention 05/26/17 atorvastatin 40 mg tablet 40 mg PO QHS hyperlipidemia 05/10/23 diphenhydramine HCl 50 mg/mL injection solution 50 mg IM Q6H PRN agitation 05/10/23 folic acid 400 mcg tablet 400 mcg PO DAILY deficiency 05/10/23 haloperidol lactate 5 mg/mL injection solution 5 mg IM Q3H PRN agitation 05/10/23 hydrocortisone 10 mg tablet 10 mg PO BID adrenal insuffienciency 05/10/23 hydrocortisone 5 mg tablet 5 mg PO DAILY adrenal insuffiencien 05/10/23 lorazepam 0.5 mg tablet (Ativan) 0.5 mg PO Q6H PRN anxiety 05/10/23 lorazepam 1 mg tablet 1 mg PO TID anxiety 05/10/23 melatonin 3 mg capsule 6 mg PO QHS insom 05/10/23 nicotine (polacrilex) 2 mg buccal lozenge 2 mg mucous membrane Q2H PRN nicotine cravings 05/10/23 nicotine 10 mg inhalation cartridge (Nicotrol) 1 inh inhalation Q2H PRN nicotine cravings 05/10/23 paroxetine HCl 20 mg tablet 20 mg PO DAILY depression 05/10/23 aripiprazole 10 mg tablet 10 mg PO DAILY 08/18/24 benztropine 1 mg tablet 1 mg PO BID 08/18/24 calcium carbonate (Calcium 500) 500 mg PO BID 08/18/24 cholecalciferol (vitamin D3) 50 mcg (2,000 unit) tablet (Vitamin D3) 4,000 unit PO DAILY 08/18/24 vancomycin 1 gram/200 mL in dextrose 5 % intravenous piggyback 1,000 mg IV Q12H 39 days #15,600 mL 08/26/24 apixaban 5 mg tablet (Eliquis) 2.5 mg (1/2 x 5 mg) PO BID 20 days #0 tabs 08/27/24 lactulose 10 gram/15 mL oral solution (Enulose) 20 g (30 mL) PO TID abn labs 30 days #0 mL 08/27/24 oxycodone 5 mg tablet 2.5 mg (1/2 x 5 mg) PO Q4H PRN PRN Pain Score 4-10 3 days #7 tabs 08/27/24 pantoprazole 40 mg tablet,delayed release 40 mg PO BID #0 tabs 08/27/24 propranolol 10 mg tablet 20 mg (2 x 10 mg) PO BID #0 tabs 08/27/24 sennosides 8.6 mg-docusate sodium 50 mg tablet (Stimulant Laxative Plus) 2 tab PO BID #0 tabs 08/27/24 Weight / BMI Weight Weight: 156 lb 8.451 oz Body Mass Index (BMI) 22.4 ABG / Lab / Microbiology Data 08/27/24 07:19 08/27/24 07:19 Laboratory: Laboratory Results - last 24 hr 08/26/24 16:34: Vancomycin Trough 18.9 H 08/27/24 07:19: WBC 3.4 L, RBC 2.38 L, Hgb 7.2 L, Hct 21.6 L, MCV 90.8, MCH 30.3, MCHC 33.3, RDW Std Deviation 40.8, RDW Coeff of Eyal 12.7, Plt Count 133 L, MPV 10.4, Immature Gran % (Auto) 0.600, Neut % (Auto) 52.9, Lymph % (Auto) 31.0, [place] % (Auto) 10.1 H, Eos % (Auto) 5.1 H, Baso % (Auto) 0.3, Absolute Neuts (auto) 1.8 L, Absolute Lymphs (auto) 1.04, Nucleated RBC % 0, Sodium 144, P otassium 2.9 L, Chloride 114 H, Carbon Dioxide 22.4, Anion Gap 8, BUN 9, Creatinine 0.77, Estim Creat Clear Calc 98.61, Est GFR (MDRD) Non-Af 101, BUN/Creatinine Ratio 11.8, Glucose 98, Calcium 8.0, Phosphorus 2.8, Magnesium 2.2 Microbiology: Microbiology 08/24/24 11:23 Blood Culture (Wb) - Anticubital Right Blood Culture - Preliminary No growth in 48 hours. 08/18/24 18:59 Urine, Catheterized Urine Culture - Final Corynebacterium jeikeium Aerococcus urinae Enterococcus raffinosus 08/23/24 13:39 Blood Culture (Wb) - Right Hand Blood Culture - Preliminary No growth in 48 hours. 08/18/24 18:54 Blood Culture (Wb) - Anticubital Left Blood Culture - Final Meth. resistant Staph. aureus 08/18/24 18:50 Blood Culture (Wb) - Anticubital Right Blood Culture - Final No growth in 5 days. 08/21/24 15:11 Nasal Secretion MRSA (PCR) - Final 08/19/24 01:35 Mucosa - Nasopharyngeal Respiratory Panel (PCR) - Final D/C Instructions DC O2, CPAP, BIPAP Needs Home O2 Discharge instructions: No Meaningful Use Info Meaningful Use Meaningful Use Diagnoses (Choose all that apply): None applicable Ischemic Stroke Statin Dosing Therapy Reference: STATIN DOSE THERAPY REFERENCE: * Patients > 75 years receive moderate or high dose statin therapy. * Patients 75 years or YOUNGER should receive HIGH intensity statin dose unless contraindicated. You will be required to document reason for non-treatment if statin daily dose does not meet guidelines. HIGH DOSE STATIN THERAPY DAILY Atorvastatin > than or = to 40 mg Rosuvastatin > than or = to 20 mg Amlodipine + Atorvastatin > than or = to 2.5/40 mg Ezetimibe + Simvastatin 10/80 mg Simvastatin 80mg Discharge Plan Admission Admit Date/Time: 08/19/24 00:04 Primary Reason for Your Visit: Acute encephalopathy, sepsis, left hip fracture Attending Provider: Marciano Guerin Primary Care Provider: Mani Balderas Consulting Providers: Robert Huizar; Amauri Hermosillo; Marciano Guerin; Laci Jackson; Jonnathan Campuzano; Devin Bates; Scott Blandon; Lupillo Porras; Robert Fitch; Edwin Espinal; Kt Garcia; Antonia Parsons; Jose Johnson; Alok Germain; William Leon; Sanjuana Wasserman; Tomer Hawkins; Kassi Hamilton; Domniic Hamilton; Beltran Dubois; Jj Lutz; Winston Steel; Yazan Cortés; Allen Dunham; Braulio Mitchell; Cb Amor; Yann Ji; Redd Laughlin Discharge Orders/Prescriptions Prescriptions: New vancomycin in dextrose 5 % 1 gram/200 mL Piggyback 1,000 mg IV Q12H 39 Days Qty: 49556 0RF Rx Instructions: stop date 10/04/24. Dx: MRSA bacteremia. Weekly bmp, cbc, and vanc trough. Fax to [phone]. Routine picc care per protocol. oxycodone 5 mg Tablet 2.5 mg PO Q4H PRN PRN (Reason: Pain Score 4-10) 3 Days Qty: 7 0RF Eliquis 5 mg Tablet 2.5 mg PO BID 20 Days Qty: 0 0RF sennosides-docusate sodium [Stimulant Laxative Plus] 8.6-50 mg Tablet 2 tab PO BID Qty: 0 0RF propranolol 10 mg Tablet 20 mg PO BID Qty: 0 0RF pantoprazole 40 mg Tablet,Delayed Release (Dr/Ec) 40 mg PO BID Qty: 0 0RF Continued albuterol sulfate 2.5 MG/3 ML solution for nebulization 2.5 mg inhalation Q6H PRN PRN (Reason: Sob &/Or Wheezing) bisacodyl 10 MG suppository 10 mg RECTAL DAILY PRN PRN (Reason: Constipation) divalproex [Depakote Sprinkles] 125 MG capsule, delayed rel sprinkle 125 mg PO Q8H aripiprazole 5 MG tablet 5 mg PO QHS Cepacol Sore Throat (lisseth-men) 1 EACH lozenge 1 blaire buccal PRN PRN (Reason: Sore Throat) acetaminophen [Tylenol] 325 MG tablet 650 mg PO Q4H PRN (Reason: Headache) polyethylene glycol 3350 17 GM powder in packet 17 g PO DAILY lithium carbonate 300 MG tablet extended release 300 mg PO BID haloperidol 1 MG tablet 1 mg PO TID guaifenesin 10 ML liquid 10 ml PO Q4H PRN PRN (Reason: Cough) magnesium hydroxide 30 ML suspension 30 ml PO DAILY PRN PRN (Reason: Constipation) tamsulosin [Flomax] 0.4 MG capsule 0.4 mg PO DAILY fludrocortisone 0.1 MG tablet 0.05 mg PO DAILY@0800 lorazepam [Ativan] 0.5 mg tablet 0.5 mg PO Q6H PRN (Reason: anxiety) haloperidol lactate 5 mg/mL solution 5 mg IM Q3H PRN (Reason: agitation) diphenhydramine HCl 50 mg/mL solution 50 mg IM Q6H PRN (Reason: agitation) Patient Comments: [NO ORIGINAL SIG] folic acid 400 mcg tablet 400 mcg PO DAILY hydrocortisone 10 mg tablet 10 mg PO BID hydrocortisone 5 mg tablet 5 mg PO DAILY atorvastatin 40 mg tablet 40 mg PO QHS lorazepam 1 mg tablet 1 mg PO TID melatonin 3 mg capsule 6 mg PO QHS Nicotrol 10 mg cartridge 1 inh inhalation Q2H PRN (Reason: nicotine cravings) nicotine (polacrilex) 2 mg lozenge 2 mg mucous membrane Q2H PRN (Reason: nicotine cravings) paroxetine HCl 20 mg tablet 20 mg PO DAILY benztropine 1 mg tablet 1 mg PO BID aripiprazole 10 mg tablet 10 mg PO DAILY calcium carbonate [Calcium 500] 500 mg calcium (1,250 mg) tablet,chewable 500 mg PO BID cholecalciferol (vitamin D3) [Vitamin D3] 50 mcg (2,000 unit) tablet 4,000 unit PO DAILY Changed lactulose [Enulose] 10 gram/15 mL solution 20 g PO TID 30 Days Qty: 0 0RF Discontinued alum-mag hydroxide-simeth [Mag-Al Plus Extra Strength] 30 ML suspension 30 ml PO Q4H PRN PRN (Reason: Indigestion) docusate sodium [Col-Rite] 100 mg capsule 100 mg PO DAILY propranolol 80 mg tablet 80 mg PO BID loperamide 2 mg tablet 4 mg PO .COMPLEX PRN (Reason: loose stool) Rx Instructions: 4 mg orally give 2 tablets by mouth as needed for loose stool may give 1 tablet PO after each subsequent stool. DO NOT exceed 4 tablets in 24 hours PRN; paroxetine HCl [Paxil] 20 mg tablet 20 mg PO DAILY Referrals / Follow Up: Lupillo Porras DO [Med Staff - Active Staff] - Amauri Hermosillo DO [Med Staff - Active Staff] - Within 2 Weeks Laci Jackson MD [Med Staff - Active Staff] - Within 1 Month Mani Balderas MD [Primary Care Provider] - Within 2 Weeks Elizabeth Moreno NP-C [Med Staff - Adv Practice Prof] - Within 2 Weeks Disposition Disposition (needs filled in before D/C Order can be placed): [facility]
[2024-08-27 13:57] VITALS: BP 120/75; PULSE 55; RESP 16; TEMP 36.4; O2SAT 95
[2024-08-27] MEDS: Divalproex Sodium 125 MG SPRINKLE PO (14:00)
[2024-08-27] MEDS: Haloperidol 1 MG Tablet PO (14:00)
--- NOTE | 2024-08-27 14:21 | CASEMGMT ---
Addendum entered by Valentina Thibodeaux 08/27/24 14:45: Fax confirmation rec'd. Valentina Thibodeaux DC Planning Asst. Original Note: Discharge Planning Discharge orders, signed med list, and transport time faxed to [facility]. Physicians will transport pt by cot at 4p. Nursing and SW updated. VM left for pts legal guardian, Praveena Roger. Valentina Thibodeaux DC Planning Asst.
== END 2024-08-27 16:28 | disposition skilled nursing facility (03) | DRG 710 ==
LOC: ED 23:42 → ICU 08-19 00:51 → PCU 08-20 15:31
PROVIDERS: Family Medicine; Hospitalist; Internal Medicine Critical Care Medicine; Internal Medicine Gastroenterology; Internal Medicine Infectious Disease; Orthopaedic Surgery; Admitting Provider Internal Medicine; Emergency Provider Emergency Medicine; PCP Family Medicine; Visit Provider Internal Medicine
PROC: 0QH936Z Insertion of Intramedullary Internal Fixation Device into Left Femoral Shaft, Percutaneous Approach (ICD-10-PCS; principal; 2024-08-20 12:00)
PROC: 0DJ08ZZ Inspection of Upper Intestinal Tract, Via Natural or Artificial Opening Endoscopic (ICD-10-PCS; CPT 43235; principal; 2024-08-23 13:55)
DX: A41.02 Sepsis due to Methicillin resistant Staphylococcus aureus (principal); R65.21 Severe sepsis with septic shock; G93.41 Metabolic encephalopathy; D61.818 Other pancytopenia; S72.142A Displaced intertrochanteric fracture of left femur, initial encounter for closed fracture; E27.40 Unspecified adrenocortical insufficiency; E72.20 Disorder of urea cycle metabolism, unspecified; F03.911 Unspecified dementia, unspecified severity, with agitation; F25.9 Schizoaffective disorder, unspecified; J44.9 Chronic obstructive pulmonary disease, unspecified; G40.909 Epilepsy, unspecified, not intractable, without status epilepticus; D50.9 Iron deficiency anemia, unspecified; I12.9 Hypertensive chronic kidney disease with stage 1 through stage 4 chronic kidney disease, or unspecified chronic kidney disease; E04.2 Nontoxic multinodular goiter; I35.0 Nonrheumatic aortic (valve) stenosis; E88.89 Other specified metabolic disorders; K56.41 Fecal impaction; F17.210 Nicotine dependence, cigarettes, uncomplicated; N18.2 Chronic kidney disease, stage 2 (mild); E78.5 Hyperlipidemia, unspecified; M19.90 Unspecified osteoarthritis, unspecified site; F41.8 Other specified anxiety disorders; K31.84 Gastroparesis; I25.10 Atherosclerotic heart disease of native coronary artery without angina pectoris; E55.9 Vitamin D deficiency, unspecified; K52.89 Other specified noninfective gastroenteritis and colitis; D69.6 Thrombocytopenia, unspecified; N30.00 Acute cystitis without hematuria; Z79.52 Long term (current) use of systemic steroids; N40.0 Benign prostatic hyperplasia without lower urinary tract symptoms; N32.89 Other specified disorders of bladder; N20.0 Calculus of kidney; M85.80 Other specified disorders of bone density and structure, unspecified site; N28.1 Cyst of kidney, acquired; R13.11 Dysphagia, oral phase; X58.XXXA Exposure to other specified factors, initial encounter
CPT/HCPCS: 36415; 36569; 36600; 70450; 71045; 71275; 73502; 73552; 74177; 76000; 80048; 80053; 80164; 80178; 80202; 80307; 81001; 82077; 82140; 82533; 82607; 82803; 83036; 83605; 83735; 84100; 84443; 85025; 85027; 85379; 86850; 86900; 86901; 87040; 87077; 87086; 87088; 87186; 87633; 87641; 92526; 92610; 93005; 93306; 93312; 93320; 93325; 93970; 94762; 97162; 97167; 97530; 97535; 99285; C1713; C1776; J2185; Q9967; A4216; J2405

== ENCOUNTER → 2024-09-01 | Outpatient (CLI) | payer MEDICAID, SELFPAY ==
[2024-09-01 18:32] LABS: Vancomycin, Trough Level 19.2 ug/mL (5.0-15.0)
== END | disposition home or self-care (01) ==
LOC: LABSPEC 18:14
PROVIDERS: PCP Family Medicine; Visit Provider Family Medicine
DX: A41.02 Sepsis due to Methicillin resistant Staphylococcus aureus (principal)
CPT/HCPCS: 80202

== ENCOUNTER 2024-09-09 22:25 | Outpatient (CLI) | payer MEDICAID, SELFPAY ==
--- OUTSIDE RECORDS SUMMARY | 2024-09-09 22:49 | XMS RPT_ITS | CCD ---
Author Organization [facility] Care Team Providers Care Research Lab Assistant Name Role Phone BRANDEN SHAH (DI) Unavailable Unavailable BRANDEN SHAH (ID) Unavailable Unavailable BRANDEN SHAH (DI) Unavailable Unavailable ASHLEY DICKEY Unavailable Unavailab Ashley Peters Unavailable MD NARINDER CHRISTENSEN Attending Unavailabl e MD NARINDER CHRISTENSEN Referring Unavailabl e Sherrie, Dr. Ashley Dave [facility] MD NARINDER Santana Attending Unavailabl e MD NARINDER CHRISTENSEN Referring Unavailabl e Sherrie, Dr. Ashley Mcdermotthen [facility] Sarahva MD NARINDER Hidalgo Attending Unavailabl MD NARINDER Delacruz Referring [facility]ailabl [facility]INDER Santana Referring UnavailMD NARINDER Pearson Attending Unavailkasey Dickey, Dr. Ashley Dave [facility] Ashley Rodrigues MD Primary Care Provider Dr. Ashley Dickey Primary Care Provider Dr. Jose Olvera Emergency Provider Dr. Roxanne More Attending Provider Dr. Ashley Dickey Primary Care Provider Dr. Jose Olvera Emergency Provider [phone] Roxanne More Attending Provider Dr. Roxanne More Admit Provider Dr. Roxanne More Other Provider Dr. Robert Barr Attending Provider Unavailable Dr. Robert Barr Other Provider Unavailable Dr. Kirsty Rodarte Attending Provider Dr. Kirsty Rodarte Other Provider Dr. Jonnathan Campuzano Other Provider Dr. Scott Blandon Other Provider Dr. Lupillo Porras Other Provider Dr. Kt Garcia Other Provider Dr. Atnonia Parsons Other Provider Dr. Jose Johnson Other Provider Dr. Sanjuana Wasserman Other Provider Dr. Tomer Hawkins Other Provider Unavailable Dr. Beltran Dubois Other Provider Dr. Jj Lutz Other Provider Dr. Cb Amor Other Provider Dr. Yann Ji Other Provider Dr. Scott Blandon Attending Provider NARINDER CHRISTENSEN Referring Unavailable ASHLEY DICKEY Primary Care Unavailab theresa Dickey MD, Ashley Dave Primary Care Provider NARINDER CHRISTENSEN Attending Unavailable ASHLEY DICKEY Primary Care Unavailab NARINDER Ledesma Attending Unavailable ASHLEY DICKEY TENZIN Primary Care Unavailab ASHLEY Peters Primary Care Unavailab Dr. Ashley Peters MD Primary Care Provider Dr. Jose Olvera MD Emergency Provider [phone] Huizar DO, Dr. Jones Admit Provider Unavail able Dr. Robert Huizar DO Attending Provider Unav ailable Dr. Ashley Dickey MD Primary Care Provider Dr. Jose Olvera MD Emergency Provider de Emre GAMING, Dr. Jones Admit Provider Unavail able Dr. Robert Huizar DO Other Provider Unavail able Dr. Amauri Hermosillo DO Other Provider [phone] Truong PAUL, Dr. Tariq Attending Provider Truong PAUL, Dr. Tariq Other Provider Renetta PAUL, Dr. Aguero Other Provider Tatianna PAUL, Dr. De Santiago Other Provider Jana PAUL, Dr. Beltran Other Provider Barber PAUL, Dr. Chavez Other Provider Vern GAMING, Dr. Wesley Other Provider Constantine PAUL, Dr. Robert Salguero Other Provider [phone] Teddy PAUL, Dr. Pineda Other Provider [phone] Jose PAUL, Dr. Meraz Other Provider Issa PAUL, Dr. Knight Other Provider Alex PAUL, Dr. Garcia Other Provider [phone] Marcellus PAUL, Dr. Dickinson Other Provider [phone] Dr. William Leon MD Other Provider Lux PAUL, Dr. Wei Other Provider Shruthi PAUL, Dr. Jeff Other Provider Unavailabl candelario Hamilton MD, Dr. Solitario Other Provider [phone] Alfonso PAUL, Dr. Alfaro Other Provider Silvino PAUL, Dr. Gong Other Provider [phone] Bolivar PAUL, Dr. Gardner Other Provider Dr. Winston Steel DO Other Provider [phone] Yazan Cortés MD Other Provider [phone] Roly PAUL, Dr. Villa Other Provider [phone] Braulio Mitchell DO Other Provider Mt PAUL, Dr. Vivar Other Provider Garrison PAUL, Dr. Lerner Other Provider Truman GAMING, Dr. Rainey Other Provider Vern GAMING, Dr. Wesley Attending Provider Dr. Amauri Hermosillo DO Attending Provider Theresa PAUL, Dr. Dye Attending Provider Truman GAMING, Dr. Rainey Attending Provider Dr. Hugo Pacheco DO Attending Provider Jeana PAUL, Dr. Harper Attending Provider Argenis PAUL, Dr. Roxanne Christianson Attending Provider Ashley Dickey Primary Care Unavailable Robert Huizar Admitting Unavailable Truong, Marciano Attending Unavailable Jonnathan Campuzano Consulting Unavailable Devin Bates Consulting Unavailable Scott Blandon Consulting Unavailable Lupillo Porras Consulting Unavailable Robert Fitch Consulting Unavailable Edwin Espinal Consulting Unavailable Kt Garcia Consulting Unavailable Antonia Parsons Consulting UnavailJose Salazar Consulting Unavailable Alok Germain Consulting Unavailable William Leon Consulting Unavailable Sanjuana Wasserman Consulting Unavailable Tomer Hawkins Consulting Unavailable Kassi Hamilton Consulting Unavailable Dominic Hamilton Consulting Unavailable Beltran Dubois Consulting Unavailable Jj Lutz Consulting Unavailable Winston Steel Consulting Unavailable Yazan Cortés Consulting Unavailable Allen Dunham Consulting Unavailable Braulio Mitchell Consulting Unavailable Cb Amor Consulting Unavailable Yann Ji Consulting Unavailable Amauri Hermosillo Consulting Unavailable Robert Huizar Consulting Unavailable Truong, Marciano Consulting Unavailable Amauri Hermosillo Attending Unavailable Redd Laughlin Attending Unavailable Laci Jackson Consulting Unavailable Redd Laughlin Consulting Unavailable Ashley Dickey Primary Care Unavailable [place] Attending Unavailable Ashley Dickey Referring Unavailable Ashley Dickey Primary Care Unavailable Britany Flores Attending Unavailable Truong, Marciano Referring Unavailable Hugo Pacheco Attending Unavailable Ashley Dickey Primary Care Unavailable [place] Attending Unavailable Ashley Dickey Primary Care Unavailable Hardik Cardenas Attending Unavailabl Ashley Bentley Attending Unavailable Ashley Dickey Primary Care Unavailable Ashley Dickey Primary Care Unavailable Robert Huizar Admitting Unavailable Robert Huizar Consulting Unavailable Marciano Guerin Attending Unavailable Amauri Hermosillo Consulting Unavailable Marciano Guerin Consulting Unavailable Laci Jackson Consulting Unavailable Jonnathan Campuzano Consulting Unavailable Devin Bates Consulting Unavailable Scott Blandon Consulting Unavailable Lupillo Porras Consulting Unavailable Robert Fitch Consulting Unavailable Edwin Espinal Consulting Unavailable Kt Garcia Consulting Unavailable Antonia Parsons Consulting Unavailab Jose Green Consulting Unavailable Germain, Alok Consulting Unavailable Leon William Consulting Unavailable Lux, Sanjuana Consulting Unavailable Aljundi, Lamia Consulting Unavailable Hamilton, Kassi Consulting Unavailable Alfonso, Dominic Consulting Unavailable Irukulla, Beltran Consulting Unavailable Bolivar, Jj Consulting Unavailable Dhesi, Winston Consulting Unavailable Yazan Cortés Consulting Unavailable Allen Dunham Consulting Unavailable Braulio Mitchell Consulting Unavailable Mt, Cb Consulting Unavailable Yann Ji Consulting Unavailable Redd Laughlin Consulting Unavailable Robert Huizar Attending Unavailable Hany Olverao Referring Unavailable Lupillo Porras Attending Unavailable Dr. Robert Huizar DO Other Provider Unavail able Dr. Amauri Hermosillo DO Other Provider Dr. Marciano Guerin MD Attending Provider Dr. Marciano Guerin MD Other Provider Dr. Laci Jackson MD Other Provider Dr. Jonnathan Campuzano MD Other Provider Dr. Devin Bates MD Other Provider Dr. Scott Blandon MD Other Provider Dr. Lupillo Porras DO Other Provider [phone] Dr. Robert Fitch MD Other Provider [phone] Dr. Edwin Espinal MD Other Provider Jose PAUL, Dr. Meraz Other Provider [phone] Issa PAUL, Dr. Knight Other Provider Alex PAUL, Dr. Garcia Other Provider Marcellus PAUL, Dr. Dickinson Other Provider Edward PAUL, Dr. Thomas Other Provider Lux PAUL, Dr. Wei Other Provider Shruthi PAUL, Dr. Jeff [facility] candelario Hamilton MD, Dr. Solitario Other Provider [phone] Alfonso PAUL, Dr. Alfaro Other Provider Silvino PAUL, Dr. Gong Other Provider [phone] Bolivar PAUL, Dr. Gardner Other Provider Milvia GAMING, Dr. Montero Other Provider [phone] Milana PAUL, Dr. Hand Other Provider [phone] Roly PAUL, Dr. Villa Other Provider Stephen GAMING, Dr. Ramsey Other Provider Mt PAUL, Dr. Vivar Other Provider Garrison PAUL, Dr. Lerner Other Provider Dr. Redd Laughlin DO Other Provider Dr. Lupillo Porras DO Attending Provider Dr. Marciano Guerin MD Referring Provider Dr. Amauri Hermosillo DO Attending Provider Theresa PAUL, Dr. Dye Attending Provider Dr. Redd Laughlin DO Attending Provider Dr. Hugo Pacheco DO Attending Provider Jeana PAUL, Dr. Harper Attending Provider Sherrie PAUL, Dr. Singleton Attending Provider Sherrie PAUL, Dr. Singleton Referring Provider Britany Hercules Attending Provider Allergies Allergy Classification Reported Allergen(s) Allergy Type Date of Onset Reaction(s) Facility Opioid Agonists (1 source) Codeine; Translations: [codeine] Drug Allergy [facility] Work Phone: Penicillins (antibiotic) (1 source) Penicillins; Translations: [Penicillins] Drug Allergy [facility] Work Phone: Quinolones (antibiotic) (1 source) Ciprofloxacin; Translations: [Cipro] Drug Allergy [facility] Work Phone: Sulfamethoxazole / Trimethoprim (1 source) Sulfamethoxazole / Trimethoprim; Translations: [Bactrim] Drug Allergy UL[facility]czjmwt[facility] Work Phone: (18 sources) ciprofloxacin; Translations: [CIPROFLOXACIN] Drug Allergy 11-12-19 16 Unknown [facility] Repository (20 sources) codeine; Translations: [CODEINE] Drug Allergy 11-12-19 16 Unknown [facility] Rep[facility] (20 sources) Penicillins; Translations: [PENICILLINS] Propensity to adverse reactions to drug (disorder) 11-12-19 16 Unknown [facility] Repository (8 sources) sulfamethoxazole / trimethoprim; Translations: [SULFAMETHOXAZOLE-T RIMETHOPRIM] Drug Allergy 08-23-19 17 Unknown [facility] Repository (9 sources) Sulfamethoxazole Drug Allergy 11-12-19 16 [facility] (9 sources) Trimethoprim Drug Allergy 11-12-19 16 [facility] (5 sources) Ciprofloxacin; Translations: [Cipro] Drug Allergy YV[facility] Work Phone: (5 sources) Sulfamethoxazole / Trimethoprim; Translations: [Bactrim] Drug Allergy [facility]yp[facility] Work Phone: (1 source) Sulfamethoxazole Drug Allergy 09-09-19 25 [facility] Repository (1 source) Trimethoprim Drug Allergy 09-09-19 25 [facility] Repository Medications Current Medications Medication Drug Class(es) Dates Sig (Normalized) Sig (Original) acetaminophen 325 mg oral tablet (20 sources) Start: 05-26-2017 take 2 tablets by mouth every four hours as needed for headache Acetaminophen (Tylenol) 325 MG tablet Active 650 mg PO Q4H as needed for Headache May 26, 2017 12:00am acetaminophen (T ylenoL) 325 mg capsule Take by mouth. Active Tylenol 325 MG O ral Capsule Quantity: 0 Refills: 0 Ordered: 23-May-2020 DO Active albuterol 0.83 mg/ml inhalation solution (9 sources) beta2-Adrenergic Agonist Start: 05-26-2017 take 2.5 mg by inhalation every six hours as needed for wheezing Albuterol Sulfate 2.5 MG/3 ML solution for nebulization Active 2.5 mg INHALATION EVERY 6 HOURS NEEDED as needed for Sob &/Or Wheezing May 26, 2017 12:00am Start: 05-26-2017 Alum-Mag Hydroxide-Simeth (Mylanta Ii) 30 ML suspension (1 source) Start: 05-26-2017 take 1 mL by mouth every four hours as needed Alum-Mag Hydroxide-Simeth (Mylanta Ii) 30 ML suspension Active 30 ML PO EVERY 4 HOURS NEEDED May 25, 2017 11:00pm aluminum hydroxide 80 mg/ml / magnesium hydroxide 80 mg/ml / simethicone 8 mg/ml oral suspension (13 sources) Start: 05-26-2017 take 1 mL by mouth every four hours as needed Alum-Mag Hydroxide-Simeth (Mylanta Ii) 30 ML Udc Active 30 ML PO EVERY 4 HOURS NEEDED May 26, 2017 8:32am alum-mag hydroxi de-simeth (Mylanta) 200-200-20 mg/5 mL oral suspension Take by mouth. Active apixaban 5 mg oral tablet (4 sources) Factor Xa Inhibitor Start: 08-27-2024 take 2.5 mg by mouth twice daily Apixaban (Eliquis) 5 mg Tablet Active 2.5 mg PO TWICE A DAY 0 20 0 August 27, 2024 12:00am ARIPiprazole 10 mg oral tablet (20 sources) Atypical Antipsychotic Start: 08-18-2024 take 1 tablet by mouth once daily Aripiprazole 10 mg tablet Active 10 mg PO DAILY August 18, 2024 12:00am Start: 05-26-2017 take 1 tablet by tory th at bedtime Aripiprazole 5 MG tablet Active 5 mg PO AT BEDTIME May 26, 2017 12:00am blood thinner Start: 05-26-2017 ARIPiprazole 5 M G Oral Tablet Quantity: 0 Refills: 0 Ordered: 23-May-2020 DO Active atorvastatin 40 mg oral tablet (18 sources) HMG-CoA Reductase Inhibitor Start: 05-10-2023 take 1 tablet by mouth at bedtime Atorvastatin 40 mg tablet Active 40 mg PO AT BEDTIME May 10, 2023 1:00am hyperlipidemia Start: 05-10-2023 Lipitor 40 MG Or al Tablet Quantity: 0 Refills: 0 Ordered: 23-May-2020 DO Active benztropine mesylate 1 mg oral tablet (20 sources) Anticholinergic, Antihistamine Start: 08-18-2024 take 1 tablet by mouth twice daily Benztropine 1 mg tablet Active 1 mg PO TWICE A DAY August 18, 2024 12:00am Start: 05-26-2017 End: 05-10-2023 take 0.5 mg by mouth once daily Benztropine 1 MG tablet Discontinued 0.5 mg PO DAILY May 26, 2017 12:00am May 10, 2023 6:37am Start: 05-26-2017 End: 05-10-2023 Start: 05-26-2017 End: 05-10-2023 take 0.5 mg by mouth once daily Benztropine Discontinued 0.5 MG PO DAILY May 26, 2017 12:00am May 10, 2023 6:37am benztropine (Cog entin) 0.5 mg tablet Take by mouth. Active Benztropine Mesy late 0.5 MG Oral Tablet Quantity: 0 Refills: 0 Ordered: 23-May-2020 DO Active calcium carbonate 1250 mg chewable tablet (16 sources) Start: 08-18-2024 take 1 tablet by mouth twice daily Calcium Carbonate (Calcium 500) 500 mg calcium (1,250 mg) tablet,chewable Active 500 mg PO TWICE A DAY August 18, 2024 12:00am calcium carbonat e (Oscal) 500 mg calcium (1,250 mg) tablet Take by mouth. Active calcium carbonat e (Oscal) 500 mg calcium (1,250 mg) tablet Take by mouth. 0 Active Calcium 500 MG T ABS Quantity: 0 Refills: 0 Ordered: 23-May-2020 DO Active cholecalciferol 0.05 mg oral tablet (7 sources) Vitamin D Start: 08-18-2024 take 1 tablet by mouth once daily Cholecalciferol (Vitamin D3) (Vitamin D3) 50 mcg (2,000 unit) tablet Active 4000 U PO DAILY August 18, 2024 12:00am Start: 05-10-2023 take 1 capsule by [facility] once daily Cholecalciferol (Vitamin D3) (Vitamin D3) 50 mcg (2,000 unit) capsule Active 4000 UNIT PO DAILY May 10, 2023 1:00am diphenhydrAMINE hydrochloride 50 mg/ml injectable solution (7 sources) Histamine-1 Receptor Antagonist Start: 05-10-2023 inject 50 mg by intramuscular injection every six hours as needed Diphenhydramine Hcl 50 mg/mL solution Active 50 mg IM EVERY 6 HOURS as needed for agitation May 10, 2023 1:00am Start: 05-10-2023 inject 50 mg by intr amuscular injection every six hours Diphenhydramine Hcl Active 50 MG IM EVERY 6 HOURS May 10, 2023 1:00am docusate sodium 50 mg / sennosides, skilled nursing 8.6 mg oral tablet (4 sources) Start: 08-27-2024 Sennosides-Doc usate Sodium (Stimulant Laxative Plus) 8.6-50 mg Tablet Active 2 {tbl} PO TWICE A DAY 0 0 August 27, 2024 12:00am Start: 08-27-2024 fludrocortisone acetate 0.1 mg oral tablet (20 sources) Start: 05-26-2017 take 1 tablet by mouth once daily Fludrocortisone 0.1 MG tablet Active 0.05 mg PO DAILY@799May 26, 2017 12:00am [facility] labs Start: 05-26-2017 take 0.05 mg by mout h once daily Fludrocortisone Active 0.05 MG PO DAILY@799May 26, 2017 12:00am Fludrocortisone Acetate 0.1 MG Oral Tablet Quantity: 0 Refills: 0 Ordered: 23-May-2020 DO Active fluticasone propionate 0.05 mg/actuat metered dose nasal spray (2 sources) Corticosteroid Start: 09-08-2024 Fluticasone Pr opionate 50 mcg/actuation spray,suspension Active NMA INTRANASAL September 08, 2024 12:00am folic acid 0.4 mg oral tablet (18 sources) Start: 05-10-2023 take 1 tablet by mouth once daily Folic Acid 400 mcg tablet Active 400 ug PO DAILY May 10, 2023 1:00am deficiency folic acid (Folv ite) 1 mg tablet Take by mouth. Active Folic Acid 1 MG Oral Tablet Quantity: 0 Refills: 0 Ordered: 23-May-2020 DO Active haloperidol 2 mg oral tablet (20 sources) Typical Antipsychotic Start: 09-08-2024 Haloperi dol 2 mg tablet Active mg PO September 08, 2024 12:00am Start: 09-08-2024 Haloperidol De canoate 50 mg/mL solution Active 10 mg IM every 4 weeks September 08, 2024 12:00am Start: 05-10-2023 End: 09-08-2024 inject 5 mg by intramuscular injection every three hours as needed Haloperidol Lactate 5 mg/mL solution Discontinued 5 mg IM Q3H as needed for agitation May 10, 2023 1:00am September 08, 2024 3:51pm Start: 05-10-2023 inject 5 mg by intra muscular injection every three hours Haloperidol Lactate Active 5 MG IM Q3H May 10, 2023 1:00am Start: 05-26-2017 take 1 tablet by tory th three times daily Haloperidol 1 MG tablet Active 1 mg PO THREE TIMES A DAY May 26, 2017 12:00am anxiety Start: 05-26-2017 take 3 mg by mouth t hree times daily Haloperidol Active 3 MG PO THREE TIMES A DAY May 26, 2017 12:00am Haloperidol 1 MG Oral Tablet Quantity: 0 Refills: 0 Ordered: 23-May-2020 DO Active Haloperidol 2 MG Oral Tablet Quantity: 0 Refills: 0 Ordered: 23-May-2020 DO Active hydrocortisone 10 mg oral tablet (14 sources) Corticosteroid Start: 05-10-2023 take 1 tablet by mouth twice daily Hydrocortisone 10 mg tablet Active 10 mg PO TWICE A DAY May 10, 2023 1:00am adrenal insuffienciency Start: 05-10-2023 take 1 tablet by tory th once daily Hydrocortisone 5 mg tablet Active 5 mg PO DAILY May 10, 2023 1:00am adrenal insuffiencien Lactobacillus Combination No.4 (Probiotic) 3 billion cell capsule (2 sources) Start: 09-08-2024 take 3 capsules by mouth once daily Lactobacillus Combination No.4 (Probiotic) 3 billion cell capsule Active 3000 NMA PO daily September 08, 2024 12:00am administer with a meal lactulose 667 mg/ml oral solution (20 sources) Osmotic Laxative Start: 08-27-2024 take 20 g by mouth three times daily Lactulose (Enulose) 10 gram/15 mL solution Active 20 g PO THREE TIMES A DAY 0 30 0 August 27, 2024 12:52pm abn labs Start: 05-10-2023 End: 08-27-2024 take 20 g by mouth twice daily Lactulose (Enulose) 10 gram/15 mL solution Discontinued 20 g PO TWICE A DAY May 10, 2023 1:00am August 27, 2024 12:52pm abn labs lactulose (Krist alose) 10 gram packet Take by mouth. Active Lactulose 10 GM Oral Packet Quantity: 0 Refills: 0 Ordered: 23-May-2020 DO Active lithium carbonate 300 mg extended release oral tablet (20 sources) Start: 05-26-2017 take 1 tablet by mouth twice daily [place] Carbonate 300 MG tablet extended release Active 300 mg PO TWICE A DAY May 26, 2017 12:00am biopolar lithium 300 mg t ablet Take by mouth. Active [place] Carbonat e 300 MG Oral Tablet Quantity: 0 Refills: 0 Ordered: 23-May-2020 DO Active loperamide hydrochloride 2 mg oral tablet (16 sources) Opioid Agonist Start: 09-08-2024 take 1 tablet by mouth every six hours as needed Loperamide 2 mg tablet Active 2 mg PO EVERY 6 HOURS as needed September 08, 2024 12:00am Start: 08-18-2024 End: 08-27-2024 take 4 tablets by mouth every twenty-four hours as needed Loperamide 2 mg tablet Discontinued 4 mg PO .COMPLEX as needed for loose stool August 18, 2024 12:00am August 27, 2024 12:49pm 4 mg orally give 2 tablets by mouth as needed for loose stool may give 1 tablet PO after each subsequent stool. DO NOT exceed 4 tablets in 24 hours PRN; Start: 05-26-2017 End: 05-10-2023 take 1 capsule by mouth every eight hours as needed for diarrhea Loperamide 2 MG capsule Discontinued 2 mg PO Q8H as needed for Diarrhea May 26, 2017 12:00am May 10, 2023 5:49am LORazepam 1 mg oral tablet (20 sources) Benzodiazepine Start: 05-10-2023 take 1 tablet by mouth three times daily Lorazepam 1 mg tablet Active 1 mg PO THREE TIMES A DAY May 10, 2023 1:00am anxiety Start: 05-26-2017 End: 05-10-2023 take 1 tablet by mouth every six hours as needed for anxiety Lorazepam (Ativan) 0.5 mg tablet Active 0.5 mg PO EVERY 6 HOURS as needed for anxiety May 10, 2023 1:00am Start: 05-26-2017 End: 05-10-2023 take 1 tablet by mouth three times daily Lorazepam 0.5 MG tablet Discontinued 0.5 mg PO THREE TIMES A DAY May 26, 2017 12:00am May 10, 2023 5:49am Ativan 0.5 MG Or al Tablet Quantity: 0 Refills: 0 Ordered: 23-May-2020 DO Active melatonin 3 mg oral capsule (18 sources) Start: 05-10-2023 take 2 capsules by mouth at bedtime Melatonin 3 mg capsule Active 6 mg PO AT BEDTIME May 10, 2023 1:00am insom Start: 05-10-2023 Start: 05-10-2023 take 6 mg by mouth at bedtime Melatonin Active 6 MG PO AT BEDTIME May 10, 2023 1:00am melatonin 3 mg t ablet Take by mouth. Active Melatonin 3 MG O ral Tablet Quantity: 0 Refills: 0 Ordered: 23-May-2020 DO Active nicotine 4 mg inhalation solution (20 sources) Cholinergic Nicotinic Agonist Start: 05-10-2023 take 10 mg by inhalation every two hours as needed Nicotine (Nicotrol) 10 mg cartridge Active 1 NMA INHALATION Q2H as needed for nicotine cravings May 10, 2023 1:00am Start: 05-10-2023 Nicotine (Don crilex) 2 mg lozenge Active 2 mg MUCOUS MEM Q2H as needed for nicotine cravings May 10, 2023 1:00am Start: 05-10-2023 nicotine polacri nathan (Nicorette) 2 mg lozenge Take by mouth. Active Nicorette Mini 2 MG Mouth/Throat Lozenge Quantity: 0 Refills: 0 Ordered: 23-May-2020 DO Active pantoprazole 40 mg delayed release oral tablet (4 sources) Proton Pump Inhibitor Start: 08-27-2024 take 1 tablet by mouth twice daily Pantoprazole 40 mg Tablet,Delayed Release (Dr/Ec) Active 40 mg PO TWICE A DAY 0 0 August 27, 2024 12:00am polyethylene glycol 3350 00387 mg powder for oral solution (20 sources) Osmotic Laxative Start: 05-26-2017 take 17 g by mouth once daily Polyethylene Glycol 3350 17 GM powder in packet Active 17 g PO DAILY May 26, 2017 12:00am constipation propranolol hydrochloride 10 mg oral tablet (16 sources) beta-Adrenergic Kehinde Start: 08-27-2024 take 2 tablets by mouth twice daily Propranolol 10 mg Tablet Active 20 mg PO TWICE A DAY 0 0 August 27, 2024 12:00am Start: 08-18-2024 End: 08-27-2024 take 1 tablet by mouth twice daily Propranolol 80 mg tablet Discontinued 80 mg PO TWICE A DAY August 18, 2024 12:00am August 27, 2024 12:51pm Start: 05-10-2023 End: 05-14-2023 take 1 capsule by mouth once daily Propranolol 80 mg capsule,extended release 24 hr Discontinued 80 mg PO DAILY May 10, 2023 1:00am May 14, 2023 4:13pm bp purified protein derivative of tuberculin 50 unt/ml injectable solution (2 sources) Tuberculosis Skin Test, Skin Test Antigen Start: 09-08-2024 Tuberculin Ppd (Tubersol) 5 tub. unit /0.1 mL solution Active 0.1 mL ID ONCE September 08, 2024 12:00am as a single dose sodium chloride 0.111 meq/ml nasal spray (2 sources) Start: 09-08-2024 Sodium Chlorid e ([place] Nasal) 0.65 % aerosol,spray Active 2 NMA INTRANASAL Q2H as needed September 08, 2024 12:00am tamsulosin hydrochloride 0.4 mg oral capsule (20 sources) alpha-Adrenergic Kehinde Start: 05-26-2017 take 1 capsule by mouth once daily Tamsulosin (Flomax) 0.4 MG capsule Active 0.4 mg PO DAILY May 26, 2017 12:00am urinary retention take 1 capsule by [facility] every twenty-four hours tamsulosin (Flomax) 0.4 mg 24 hr capsule Take by mouth. Active Tamsulosin HCl - 0.4 MG Oral Capsule Quantity: 0 Refills: 0 Ordered: 23-May-2020 DO Active divalproex sodium 125 mg delayed release oral capsule (20 sources) Mood Stabilizer, Anti-epileptic Agent Start: 05-26-2017 take 1 capsule by mouth every eight hours Divalproex (Depakote Sprinkles) 125 MG capsule, delayed rel sprinkle Active 125 mg PO Q8H May 26, 2017 12:00am schizophrednia Start: 05-26-2017 Divalproex (De pakote Sprinkle) 125 MG Cap.DrBaileySpr Active 500 MG PO TWICE A DAY May 26, 2017 8:21am divalproex (Depa kote) 125 mg EC tablet Take by mouth. Active Divalproex Sodiu m 125 MG Oral Tablet Delayed Release Quantity: 0 Refills: 0 Ordered: 23-May-2020 DO Active 200 ml vancomycin 5 mg/ml injection (4 sources) Glycopeptide Antibacterial Start: 08-26-2024 Vancomycin In Dextro se 5 % 1 gram/200 mL Piggyback Active 1000 mg IV Q12H [id number] August 26, 2024 12:00am stop date 10/04/24. Dx: MRSA bacteremia. Weekly bmp, cbc, and vanc trough. Fax to [phone]. Routine picc care per protocol. Zinc Oxide (2 sources) Start: 09-08-2024 Zinc Oxide 1.8 % cream Active NMA TOPICAL September 08, 2024 12:00am (3 sources) Start: 05-26-2017 Start: 05-26-2017 End: 05-10-2023 Start: 05-26-2017 End: 08-27-2024 Completed/Discontinued Medications Medication Drug Class(es) Dates Sig (Normalized) Sig (Original) acetaminophen 325 mg / oxyCODONE hydrochloride 5 mg oral tablet (9 sources) Opioid Agonist Start: 06-06-2017 End: 05-10-2023 Oxycodone-Acetamino phen 1 TABLET tablet Discontinued 1 - 2 {tbl} PO EVERY 4 HOURS NEEDED as needed for Pain 14 7 June 06, 2017 12:00am May 10, 2023 5:48am Congenital hydrocele Start: 06-06-2017 End: 05-10-2023 Start: 06-06-2017 End: 05-10-2023 take 1 tablet by mouth every four hours as needed Oxycodone-Acetaminophen Discontinued 1 - 2 TABLET PO EVERY 4 HOURS NEEDED 14 7 June 06, 2017 12:00am May 10, 2023 5:48am Alum-Mag Hydroxide-Simeth (Mag-Al Plus Extra Strength) 30 ML suspension (5 sources) Start: 05-26-2017 End: 08-27-2024 take 1 mL by mouth every four hours as needed Alum-Mag Hydroxide-Simeth (Mag-Al Plus Extra Strength) 30 ML suspension Discontinued 30 mL PO EVERY 4 HOURS NEEDED as needed for Indigestion May 26, 2017 12:00am August 27, 2024 12:47pm Start: 05-26-2017 take 1 mL by mouth e very four hours as needed Alum-Mag Hydroxide-Simeth (Mag-Al Plus Extra Strength) 30 ML suspension Active 30 mL PO EVERY 4 HOURS NEEDED as needed for Indigestion May 26, 2017 12:00am Start: 05-26-2017 take 1 mL by mouth e very four hours as needed Alum-Mag Hydroxide-Simeth (Mag-Al Plus Extra Strength) 30 ML suspension Active 30 ML PO EVERY 4 HOURS NEEDED May 26, 2017 12:00am benzocaine 15 mg / menthol 3.6 mg oral lozenge (9 sources) Standardized Chemical Allergen Start: 05-26-2017 End: 09-08-2024 Benzocaine-Menthol (Cepacol Sore Throat (Dylan-Men)) 1 EACH lozenge Discontinued 1 NMA BUCCAL NEEDED as needed for Sore Throat May 26, 2017 12:00am September 08, 2024 3:52pm Start: 05-26-2017 Benzocaine-Men thol (Cepacol Sore Throat (Dylan-Men)) 1 EACH lozenge Active 1 LOZENGE BUCCAL NEEDED May 26, 2017 12:00am bisacodyl 10 mg rectal suppository (20 sources) Stimulant Laxative Start: 05-26-2017 Dulcolax Ac tive 5 MG PO NEEDED May 26, 2017 12:00am Start: 05-26-2017 End: 09-08-2024 take 10 mg rectal route once daily as needed for constipation Bisacodyl 10 MG suppository Discontinued 10 mg RECTAL DAILY NEEDED as needed for Constipation May 26, 2017 12:00am September 08, 2024 3:52pm Dulcolax 10 MG R ectal Suppository Quantity: 0 Refills: 0 Ordered: 23-May-2020 DO Active calcium carbonate 1500 mg / cholecalciferol 200 unt oral tablet (9 sources) Vitamin D Start: 05-26-2017 End: 08-18-2024 Calcium Carbonate-Vitamin D3 (Calcium 600 + D(3)) 1 EACH tablet Discontinued 1 NMA PO TWICE A DAY May 26, 2017 12:00am August 18, 2024 11:00pm supplement Start: 05-26-2017 End: 08-18-2024 docusate sodium 100 mg oral capsule (9 sources) Start: 08-18-2024 End: 08-27-2024 take 1 capsule by mouth once daily Docusate Sodium (Col-Rite) 100 mg capsule Discontinued 100 mg PO DAILY August 18, 2024 12:00am August 27, 2024 12:48pm Start: 05-26-2017 take 1 capsule by mo ut once daily Docusate Sodium (Dok) 100 MG capsule Active 100 MG PO DAILY May 26, 2017 12:00am doxycycline monohydrate 100 mg oral capsule (9 sources) Tetracycline-class Drug Start: 06-06-2017 End: 05-10-2023 take 1 capsule by mouth twice daily Doxycycline Monohydrate 100 MG capsule Discontinued 100 mg PO TWICE A DAY 20 0 June 06, 2017 12:00am May 10, 2023 6:37am ferrous sulfate 325 mg oral tablet (8 sources) Start: 05-26-2017 End: 05-10-2023 take 1 tablet by mouth twice daily Ferrous Sulfate (Iron) 325 MG tablet Discontinued 325 mg PO TWICE A DAY May 26, 2017 12:00am May 10, 2023 6:37am guaiFENesin 20 mg/ml oral solution (9 sources) Start: 05-26-2017 End: 09-08-2024 take 1 mL by mouth every four hours as needed for cough Guaifenesin 10 ML liquid Discontinued 10 mL PO EVERY 4 HOURS NEEDED as needed for Cough May 26, 2017 12:00am September 08, 2024 3:51pm Start: 05-26-2017 Start: 05-26-2017 take 1 mL by mouth e very four hours as needed Guaifenesin Active 10 ML PO EVERY 4 HOURS NEEDED May 26, 2017 12:00am levoFLOXacin 750 mg oral tablet (13 sources) Quinolone Antimicrobial Start: 05-14-2023 End: 08-18-2024 take 1 tablet by mouth once daily Levofloxacin 750 mg tablet Discontinued 750 mg PO DAILY 3 0 May 14, 2023 12:00am August 18, 2024 10:50pm Start: 05-10-2023 End: 05-14-2023 take 1 tablet by mouth once daily Levofloxacin 500 mg tablet Discontinued 500 mg PO DAILY May 10, 2023 1:00am May 14, 2023 4:12pm copd Magnesium Hydroxide (19 sources) Start: 05-26-2017 End: 09-08-2024 take 1 mL by mouth once daily as needed for constipation Magnesium Hydroxide 30 ML suspension Discontinued 30 mL PO DAILY NEEDED as needed for Constipation May 26, 2017 12:00am September 08, 2024 3:51pm Start: 05-26-2017 take 1 mL by mouth o nce daily as needed for constipation Magnesium Hydroxide 30 ML suspension Active 30 mL PO DAILY NEEDED as needed for Constipation May 26, 2017 12:00am Start: 05-26-2017 take [...] Take by mouth. Active melatonin 3 mg / vitamin b6 10 mg oral tablet (9 sources) Start: 05-26-2017 End: 05-10-2023 take 1 tablet by mouth at bedtime Melatonin-Pyridoxine Hcl (B6) 1 EACH tablet Discontinued 1 NMA PO AT BEDTIME May 26, 2017 12:00am May 10, 2023 5:46am Start: 05-26-2017 End: 05-10-2023 Melatonin-Pyridoxine Hcl (B6 ) Discontinued 1 EACH PO AT BEDTIME May 26, 2017 12:00am May 10, 2023 5:46am oxyCODONE hydrochloride 5 mg oral tablet (4 sources) Opioid Agonist Start: 08-27-2024 End: 09-08-2024 take 2.5 mg by mouth every four hours as needed for pain Oxycodone 5 mg Tablet Discontinued 2.5 mg PO EVERY 4 HOURS NEEDED as needed for Pain Score 4-10 7 3 0 August 27, 2024 September 08, 2024 3:51pm Fracture of hip PARoxetine hydrochloride 20 mg oral tablet (20 sources) Serotonin Reuptake Inhibitor Start: 05-10-2023 End: 08-27-2024 take 1 tablet by mouth once daily Paroxetine Hcl (Paxil) 20 mg tablet Discontinued 20 mg PO DAILY August 18, 2024 12:00am August 27, 2024 12:51pm Paxil 20 MG Oral Tablet Quantity: 0 Refills: 0 Ordered: 23-May-2020 DO Active predniSONE 10 mg oral tablet (6 sources) Start: 05-14-2023 End: 08-18-2024 Prednisone 10 mg tablet Discontinued 10 mg PO DAILY 30 0 May 14, 2023 12:00am August 18, 2024 10:58pm 4 tablets x 3 days, 3 tablets x 3 days, 2 tablets x 3 days, 1 tablet x 3 days Vitamin D TABS (6 sources) Vitamin D TABS Q uantity: 0 Refills: 0 Ordered: 23-May-2020 DO Active Zinc (6 sources) Zinc TABS Quanti ty: 0 Refills: 0 Ordered: 23-May-2020 DO Active Problems Active Problems Problem Classification Problem Date Documented Da te Episodic/Chronic Anxiety disorders (11 sources) Mixed anxiety and depressive disorder; Translations: [Anxiety disorder, unspecified] Onset: 5 08-18-2024 Chronic Bacterial infection; unspecified site (10 sources) Bacteremia due to Methicillin resistant Staphylococcus aureus; Translations: [Bacteremia] Onset: 5 08-23-2024 Episodic Cardiac dysrhythmias (7 sources) Bradycardia; Translations: [Bradycardia, unspecified] 05-13-2023 Episodic Coagulation and hemorrhagic disorders (5 sources) Thrombocytopenic disorder; Translations: [Thrombocytopenia, unspecified] 08-18-2024 Chronic Deficiency and other anemia (5 sources) Anemia; Translations: [Anemia, unspecified] 08-18-2024 Episodic Delirium, dementia, and amnestic and other cognitive disorders (10 sources) Dementia; Translations: [Unspecified dementia without behavioral disturbance] 08-18-2024 Chronic Epilepsy; convulsions (2 sources) Epilepsy; Translations: [Epilepsy, unspecified, not intractable, without status epilepticus] 09-08-2024 Chronic Epilepsy; convulsions (2 sources) Seizure; Translations: [Unspecified convulsions] 09-08-2024 Episodic Fracture of neck of femur (hip) (20 sources) Fracture of bone of hip region; Translations: [Fracture of unspecified part of neck of unspecified femur, initial encounter for closed fracture] Onset: 5 08-19-2024 Episodic Genitourinary congenital anomalies (2 sources) Hypospadias; Translations: [Hypospadias, unspecified] 09-08-2024 Chronic Genitourinary symptoms and ill-defined conditions (11 sources) Urinary incontinence; Translations: [Urinary incontinence, unspecified] Onset: 4 03-04-2023 Chronic Genitourinary symptoms and ill-defined conditions (20 sources) Nocturia; Translations: [Nocturia] Onset: 4 03-04-2023 Episodic Impulse control disorders, NEC (2 sources) Impulse control disorder; Translations: [Impulse disorder, unspecified] 09-08-2024 Chronic Influenza (9 sources) Influenza due to Influenza A virus; Translations: [Influenza due to other identified influenza virus with other respiratory manifestations] 05-10-2023 Episodic Mood disorders (1 source) Mood disorders; Translations: [Depression, unspecified] Onset: 5 Other circulatory disease (5 sources) Low blood pressure; Translations: [Hypotension, unspecified] 08-18-2024 Episodic Other diseases of bladder and urethra (2 sources) Bladder neck obstruction; Translations: [Bladder-neck obstruction] 09-08-2024 Chronic Other diseases of kidney and ureters (2 sources) Hydronephrosis; Translations: [Unspecified hydronephrosis] 09-08-2024 Episodic Other ear and sense organ disorders (2 sources) Hearing loss; Translations: [Unspecified hearing loss, unspecified ear] 09-08-2024 Chronic Other gastrointestinal disorders (8 sources) Stercoral ulcer of large intestine; Translations: [Ulcer of intestine] 08-24-2024 Episodic Other gastrointestinal disorders (8 sources) Constipation; Translations: [Constipation, unspecified] 08-23-2024 Episodic Other gastrointestinal disorders (1 source) Constipation, unspecified; Translations: [Constipation, unspecified] Onset: Episodic Other gastrointestinal disorders (1 source) Ulcer of intestine; Translations: [Ulcer of intestine] Onset: Episodic Other lower respiratory disease (7 sources) Single lobe lung infiltrate; Translations: [Other nonspecific abnormal finding of lung field] 05-10-2023 Episodic Other lower respiratory disease (2 sources) Other nonspecific abnormal finding of lung field; Translations: [Other nonspecific abnormal finding of lung field] 05-10-2023 Episodic Other lower respiratory disease (10 sources) Respiratory insufficiency; Translations: [Other abnormalities of breathing] 08-18-2024 Episodic Other lower respiratory disease (1 source) Other abnormalities of breathing; Translations: [Other abnormalities of breathing] Onset: Episodic Other nervous system disorders (10 sources) Metabolic encephalopathy; Translations: [Metabolic encephalopathy] 08-18-2024 Chronic Other nervous system disorders (1 source) Metabolic encephalopathy; Translations: [Metabolic encephalopathy] Onset: Chronic Other nervous system disorders (7 sources) Toxic metabolic encephalopathy; Translations: [Toxic metabolic encephalopathy] 05-13-2023 Episodic Other nervous system disorders (10 sources) History of anoxic brain injury; Translations: [Personal history of other diseases of the nervous system and sense organs] 08-18-2024 Episodic Other nervous system disorders (1 source) Personal history of other diseases of the nervous system and sense organs; Translations: [Personal history of other diseases of the nervous system and sense organs] Onset: Episodic Other nutritional; endocrine; and metabolic disorders (5 sources) Ketosis; Translations: [Other specified metabolic disorders] 08-18-2024 Chronic Other screening for suspected conditions (not mental disorders or infectious disease) (5 sources) Prerenal azotemia; Translations: [Other specified abnormal findings of blood chemistry] 08-18-2024 Episodic Other upper respiratory disease (7 sources) Acute bronchospasm; Translations: [Acute bronchospasm] 05-10-2023 Episodic Other upper respiratory disease (2 sources) Acute bronchospasm; Translations: [Acute bronchospasm] 05-10-2023 Episodic Other upper respiratory infections (2 sources) Chronic pansinusitis; Translations: [Chronic pansinusitis] 09-08-2024 Chronic Residual codes; unclassified (5 sources) Altered mental status; Translations: [Altered mental status, unspecified] 08-18-2024 Episodic Residual codes; unclassified (2 sources) Insomnia; Translations: [Insomnia, unspecified] 09-08-2024 Episodic Respiratory failure; insufficiency; arrest (adult) (9 sources) Acute respiratory failure; Translations: [Acute respiratory failure with hypoxia] 05-10-2023 Episodic Schizophrenia and other psychotic disorders (13 sources) Schizoaffective disorder; Translations: [Schizoaffective disorder, unspecified] Onset: 5 08-18-2024 Chronic Screening and history of mental health and substance abuse codes (15 sources) H/O: schizophrenia; Translations: [Personal history of other mental and behavioral disorders] Onset: 5 05-10-2023 Episodic Septicemia (except in labor) (13 sources) Sepsis; Translations: [Sepsis, unspecified organism] Onset: 5 08-18-2024 Episodic Shock (1 source) Severe sepsis with septic shock; Translations: [Severe sepsis with septic shock] Onset: Episodic Unclassified (1 source) Unspecified dementia, unspecified severity, with agitation; Translations: [Unspecified dementia, unspecified severity, with agitation] Onset: Urinary tract infections (11 sources) Acute cystitis; Translations: [Acute cystitis without hematuria] Onset: 5 08-18-2024 Episodic Past or Other Problems Problem Classification Problem Date Documented Da te Episodic/Chronic Inflammatory conditions of male genital organs (10 sources) Abscess of scrotum; Translations: [Inflammatory disorders of scrotum] Onset: 03-05-2023 03-05-2023 Episodic Results Test Name Value Interpretation Reference Range Facility HIP, UNI W/ Pelvis 2-3 Views on 09-08-2024 HIP, UNI W/ Pelvis 2-3 Views Normal [facility] Orthopedic Visit Reporton Orthopedic Visit Report Normal [facility] Trough vancomycin levelOrder ed By: Ashley Dickey on 09-01-2024 Vancomycin trough [Mass/Vol] 19.2 ug/mL High 5.0-15.0 [facility] Comment on above: Recommended goal tro ugh ranges are generally 10-15 mcg/ml for less severe/complicated infections such as cellulitis or UTI and 15-20 mcg/ml for more severe/complicated infections such as bacteremia/sepsis, osteomyelitis, pneumonia or meningitis. Goal trough ranges should take into account indication, patient-specific factors and organism TETE.VANCOMYCIN STANDARED DRUG THERAPY TROUGH LEVEL: 5.0 - 15.0 mg/L VANCOMYCIN HIGH INTENSITY THERAPY TROUGH LEVEL: 15.0 - 20.0 mg/L High Intensity therapy recommended for serious lifethreatening infections include:- Xxfwbmqczo-Zeriocaulnyx-Srbpnoqld (Ventilator/Healtcare Associated)-Sepsis PLEASE CONTACT PHARMACY SERVICES (#[id number]) FOR INTERPRETATIONOF RESULTS. Vancomycin, Trough Levelon 0 09-01-2024 VANCO, TROUGH 19.2 ug/mL High 5.0-15.0 [facility] Comment on above: Order Comment: 0000 Result Comment: Arie mmended goal trough ranges are generally 10-15 mcg/mlfor less severe/complicated infections such as cellulitisor UTI and 15-20 mcg/ml for more severe/complicatedinfections such as bacteremia/sepsis, osteomyelitis,pneumonia or meningitis. Goal trough ranges should takeinto account indication, patient-specific factors andorganism TETE.VANCOMYCIN STANDARED DRUG THERAPY TROUGH LEVEL: 5.0 - 15.0 mg/LVANCOMYCIN HIGH INTENSITY THERAPY TROUGH LEVEL: 15.0 - 20.0 mg/LHigh Intensity therapy recommended for serious lifethreatening infections include:- Jgxooaxjdw-Jvvipespqkpk-Ozbutpchk (Ventilator/Healtcare Associated)-SepsisPLEASE CONTACT PHARMACY SERVICES (#[id number]) FOR INTERPRETATIONOF RESULTS. Performed By: #### L 501.8820 ####[facility] [address] [place], [place], [id number] Culture, Blood (WB)on 2024 CUB No growth in 5 days. Normal [facility] Comment on above: Performed By: #### M 200.1000 ####[facility] [address] [place], [place], [id number] Basic Metabolic Profile (BMP )on 08-28-2024 BUN Normal 4-19 [facility] Comment on above: Result Comment: Canc elled via OM: Order cancelled - Patient discharged Performed By: #### L 500.2500, L100.0100 ####[facility] [address] [place], [address] BUN/CRE Normal 10-20 [facility] Comment on above: Result Comment: Canc elled via OM: Order cancelled - Patient discharged Performed By: #### L 500.2500, L100.0100 ####[facility] [address] [place], [address] Calcium Normal 7.6-11.0 [facility] Comment on above: Result Comment: Canc elled via OM: Order cancelled - Patient discharged Performed By: #### L 500.2500, L100.0100 ####[facility] [address] [place], [address] CL Normal 98-108 [facility] Comment on above: Result Comment: Canc elled via OM: Order cancelled - Patient discharged Performed By: #### L 500.2500, L100.0100 ####[facility] [address] [place], [address] CO2 Normal 21.0-32.0 [facility] Comment on above: Result Comment: Canc elled via OM: Order cancelled - Patient discharged Performed By: #### L 500.2500, L100.0100 ####[facility] [address] [place], [address] CREAT,SERUM Normal 0.70-1.20 [facility] Comment on above: Result Comment: Canc elled via OM: Order cancelled - Patient discharged Performed By: #### L 500.2500, L100.0100 ####[facility] [address] [place], [address] eGFR Normal >60 [facility] Comment on above: Result Comment: Canc elled via OM: Order cancelled - Patient discharged Performed By: #### L 500.2500, L100.0100 ####[facility] [address] [place], [address] GAP Normal 5-15 [facility] Comment on above: Result Comment: Canc elled via OM: Order cancelled - Patient discharged Performed By: #### L 500.2500, L100.0100 ####[facility] [address] [place], [address] GLU Normal 70-99 [facility] Comment on above: Result Comment: Canc elled via OM: Order cancelled - Patient discharged Performed By: #### L 500.2500, L100.0100 ####[facility] [address], [address] Potassium Normal 3.3-5.1 [facility] Comment on above: Result Comment: Canc elled via OM: Order cancelled - Patient discharged Performed By: #### L 500.2500, L100.0100 ####[facility] [address] [place], [address] Basic Metabolic Profile (BMP) Normal 133-145 [facility] Comment on above: Result Comment: Canc elled via OM: Order cancelled - Patient discharged Performed By: #### L 500.2500, L100.0100 ####[facility] [address] [place], [address] CBC W/Diff, Automatedon 06-2 Absolute Neut Normal 2.0-7.7 [facility] Comment on above: Result Comment: Canc elled via OM: Order cancelled - Patient discharged Performed By: #### L 500.2500, L100.0100 ####[facility] [address] [place], [address] HCT Normal 40-54 [facility] Comment on above: Result Comment: Canc elled via OM: Order cancelled - Patient discharged Performed By: #### L 500.2500, L100.0100 ####[facility] [address] [place], [address] HGB Normal 13.0-16.5 [facility] Comment on above: Result Comment: Canc elled via OM: Order cancelled - Patient discharged Performed By: #### L 500.2500, L100.0100 ####[facility] [address] [place], [address] MCH Normal 27.0-32.0 [facility] Comment on above: Result Comment: Canc elled via OM: Order cancelled - Patient discharged Performed By: #### L 500.2500, L100.0100 ####[facility] [address] [place], [address] MCHC Normal 32-36 [facility] Comment on above: Result Comment: Canc elled via OM: Order cancelled - Patient discharged Performed By: #### L 500.2500, L100.0100 ####[facility] [address] [place], [address] MCV Normal 80-94 [facility] Comment on above: Result Comment: Canc elled via OM: Order cancelled - Patient discharged Performed By: #### L 500.2500, L100.0100 ####[facility] [address] [place], [address] NEUT% Normal 47-70 [facility] Comment on above: Result Comment: Canc elled via OM: Order cancelled - Patient discharged Performed By: #### L 500.2500, L100.0100 ####[facility] [address] [place], [address] PLT Normal 150-450 [facility] Comment on above: Result Comment: Canc elled via OM: Order cancelled - Patient discharged Performed By: #### L 500.2500, L100.0100 ####[facility] [address] [place], [address] RBC Normal 4.6-6.2 [facility] Comment on above: Result Comment: Canc elled via OM: Order cancelled - Patient discharged Performed By: #### L 500.2500, L100.0100 ####[facility] [address] [place], [address] RDW CV Normal 11.6-14.6 [facility] Comment on above: Result Comment: Canc elled via OM: Order cancelled - Patient discharged Performed By: #### L 500.2500, L100.0100 ####[facility] [address] [place], [address] RDW SD Normal 35.1-43.9 [facility] Comment on above: Result Comment: Canc elled via OM: Order cancelled - Patient discharged Performed By: #### L 500.2500, L100.0100 ####[facility] [address] [place], [address] WBC Normal 4.4-11.0 [facility] Comment on above: Result Comment: Canc elled via OM: Order cancelled - Patient discharged Performed By: #### L 500.2500, L100.0100 ####[facility] [address] [place], [address] Culture, Blood (WB)on 2024 CUB No growth in 5 days. Normal [facility] Comment on above: Performed By: #### M 200.1000 ####[facility] [address] [place], [address] Absolute lymphocyte countOrd ered By: Marciano Guerin on 08-27-2024 Lymphocytes Auto (Unsp spec) [#/Vol] 1.04 10*3/uL 0.83-4.51 [facility] Absolute neutrophil countOrd ered By: Marciano Guerin on 08-27-2024 Neutrophils (Bld) [#/Vol] 1.8 10*3/uL Low 2.0-7.7 [facility] Anion gap in Serum or Plasma Ordered By: Marciano Guerin on 08-27-2024 Anion gap [Moles/Vol] 8 mmol/L 5-15 [facility] Automated lymphocyte count a s percentage of total leukocytesOrdered By: Marciano Guerin on 08-27-2024 Lymphocytes/100 WBC Auto (Unsp spec) 31.0 % 19-41 [facility] BUN/creatinine ratioOrdered By: Marciano Guerin on 08-27-2024 Urea nitrogen/Creatinine [Mass ratio] 11.8 mg/mg - [facility] Basic Metabolic Profile (BMP )on 08-27-2024 BUN/CRE 11.8 RATIO Normal - [facility] Comment on above: Performed By: #### L 500.2500, L501.2300, L501.5200, L100.0100 ####[facility] [address] [place], [address] Calcium [Mass/Vol] 8.0 mg/dL Normal 7.6-11.0 [facility] Comment on above: Performed By: #### L 500.2500, L501.2300, L501.5200, L100.0100 ####[facility] [address] [place], [address] Chloride [Moles/Vol] 114 mmol/L High 98-108 [facility] Comment on above: Performed By: #### L 500.2500, L501.2300, L501.5200, L100.0100 ####[facility] [address] [place], [address] CO2 [Moles/Vol] 22.4 mmol/L Normal 21.0-32.0 [facility] Comment on above: Performed By: #### L 500.2500, L501.2300, L501.5200, L100.0100 ####[facility] [address] [place], [address] Creatinine [Mass/Vol] 0.77 mg/dL Normal 0.70-1.20 [facility] [facility] Comment on above: Performed By: #### L 500.2500, L501.2300, L501.5200, L100.0100 ####[facility] [address] [place], [address] ECRCL 98.61 ml/min Normal 50-250 [facility] Comment on above: Performed By: #### L 500.2500, L501.2300, L501.5200, L100.0100 ####[facility] [address] [place], [address] GAP 8 Normal 5-15 [facility] Comment on above: Performed By: #### L 500.2500, L501.2300, L501.5200, L100.0100 ####[facility] [address] [place], [address] GFR/1.73 sq M.predicted among non-blacks MDRD (S/P/Bld) [Vol rate/Area] 101 mL/min/{1.73_m2} Normal >60 [facility] Comment on above: Result Comment: mL/m in/1.73m2 CKD-EPI Creatinine Equation (2020) Performed By: #### L 500.2500, L501.2300, L501.5200, L100.0100 ####[facility] [address] [place], [address] Glucose [Mass/Vol] 98 mg/dL Normal 70-99 [facility] Comment on above: Performed By: #### L 500.2500, L501.2300, L501.5200, L100.0100 ####[facility] [address] [place], [address] Potassium [Moles/Vol] 2.9 mmol/L Low 3.3-5.1 [facility] Comment on above: Performed By: #### L 500.2500, L501.2300, L501.5200, L100.0100 ####[facility] [address] [place], [address] Sodium [Moles/Vol] 144 mmol/L Normal 133-145 [facility] Comment on above: Performed By: #### L 500.2500, L501.2300, L501.5200, L100.0100 ####[facility] [address] [place], [address] Urea nitrogen [Mass/Vol] 9 mg/dL Normal 4-19 [facility] Comment on above: Performed By: #### L 500.2500, L501.2300, L501.5200, L100.0100 ####[facility] [address] [place], [address] Basophil percentageOrdered B y: Marciano Guerin on 08-27-2024 Basophils/100 WBC (Bld) 0.3 % 0-1 [facility] CBC W/Diff, Automatedon 08-02 Absolute Lymph 1.04 X10 3/uL Normal 0.83-4.51 [facility] Comment on above: Performed By: #### L 500.2500, L501.2300, L501.5200, L100.0100 ####[facility] [address] [place], [address] Absolute Neut 1.8 X10 3/uL Low 2.0-7.7 [facility] Comment on above: Performed By: #### L 500.2500, L501.2300, L501.5200, L100.0100 ####[facility] [address] [place], [address] Basophils/100 WBC (Bld) 0.3 % Normal 0-1 [facility] Comment on above: Performed By: #### L 500.2500, L501.2300, L501.5200, L100.0100 ####[facility] [address] [place], [address] Eosinophils/100 WBC (Bld) 5.1 % High 0-5 [facility] Comment on above: Performed By: #### L 500.2500, L501.2300, L501.5200, L100.0100 ####[facility] [address] [place], [address] Erythrocyte distribution width (RBC) [Ratio] 12.7 % Normal 11.6-14.6 [facility] Comment on above: Performed By: #### L 500.2500, L501.2300, L501.5200, L100.0100 ####[facility] [address] [place], [address] Hematocrit (Bld) [Volume fraction] 21.6 % Low 40-54 [facility] Comment on above: Performed By: #### L 500.2500, L501.2300, L501.5200, L100.0100 ####[facility] [address] [place], [address] Hemoglobin (Bld) [Mass/Vol] 7.2 g/dL Low 13.0-16.5 [facility] Comment on above: Performed By: #### L 500.2500, L501.2300, L501.5200, L100.0100 ####[facility] [address] [place], [address] IG% 0.600 Normal 0.0-0.9 [facility] Comment on above: Result Comment: IG% - Immature Granulocytes (promyelocytes, myelocytes andmetamyelocytes) > 1% indicates that a LEFT SHIFT is Present. Performed By: #### L 500.2500, L501.2300, L501.5200, L100.0100 ####[facility] [address] [place], [address] Lymphocytes/100 WBC (Bld) 31.0 % Normal 19-41 [facility] Comment on above: Performed By: #### L 500.2500, L501.2300, L501.5200, L100.0100 ####[facility] [address] [place], [address] MCH (RBC) [Entitic mass] 30.3 pg Normal 27.0-32.0 [facility] Comment on above: Performed By: #### L 500.2500, L501.2300, L501.5200, L100.0100 ####[facility] [address] [place], [address] MCHC (RBC) [Mass/Vol] 33.3 g/dL Normal 32-36 [facility] Comment on above: Performed By: #### L 500.2500, L501.2300, L501.5200, L100.0100 ####[facility] [address] [place], [address] MCV (RBC) [Entitic vol] 90.8 fL Normal 80-94 [facility] Comment on above: Performed By: #### L 500.2500, L501.2300, L501.5200, L100.0100 ####[facility] [address] [place], [address] Monocytes/100 WBC (Bld) 10.1 % High 0-10 [facility] Comment on above: Performed By: #### L 500.2500, L501.2300, L501.5200, L100.0100 ####[facility] [address] [place], [address] Neutrophils/100 WBC (Bld) 52.9 % Normal 47-70 [facility] Comment on above: Performed By: #### L 500.2500, L501.2300, L501.5200, L100.0100 ####[facility] [address] [place], [address] Nucleated RBC (Bld) [#/Vol] 0 10*3/uL Normal 0-5 [facility] Comment on above: Performed By: #### L 500.2500, L501.2300, L501.5200, L100.0100 ####[facility] [address] [place], [address] Platelet mean volume (Bld) [Entitic vol] 10.4 fL Normal 6.2-12.0 [facility] Comment on above: Performed By: #### L 500.2500, L501.2300, L501.5200, L100.0100 ####[facility] [address] [place], [address] Platelets (Bld) [#/Vol] 133 10*3/uL Low 150-450 [facility] Comment on above: Performed By: #### L 500.2500, L501.2300, L501.5200, L100.0100 ####[facility] [address] [place], [address] RBC (Bld) [#/Vol] 2.38 10*6/uL Low 4.6-6.2 [facility] Comment on above: Performed By: #### L 500.2500, L501.2300, L501.5200, L100.0100 ####[facility] [address] [place], [address] RDW SD 40.8 fl Normal 35.1-43.9 [facility] Comment on above: Performed By: #### L 500.2500, L501.2300, L501.5200, L100.0100 ####[facility] [address] [place], [address] WBC (Bld) [#/Vol] 3.4 10*3/uL Low 4.4-11.0 [facility] Comment on above: Performed By: #### L 500.2500, L501.2300, L501.5200, L100.0100 ####[facility] [address] [place], [place], [id number] Carbon dioxide, total [Moles /volume] in Central venous bloodOrdered By: Marciano Guerin on 08-27-2024 CO2 [Moles/Vol] 22.4 mmol/L 21.0-32.0 [facility] Chloride assayOrdered By: Theresa Guerin on 08-27-2024 Chloride [Moles/Vol] 114 mmol/L High 98-108 [facility] Eosinophil percentageOrdered By: Marciano Guerin on 08-27-2024 Eosinophils/100 WBC (Bld) 5.1 % High 0-5 [facility] Erythrocyte distribution wid th ratioOrdered By: Marciano Guerin on 08-27-2024 Erythrocyte distribution width (RBC) [Ratio] 12.7 % 11.6-14.6 [facility] Erythrocyte distribution wid th standard deviationOrdered By: Marciano Guerin on 08-27-2024 Erythrocyte distribution width (RBC) [Ratio] 40.8 fl 35.1-43.9 [facility] Glomerular filtration rate ( GFR) estimation/1.73 sq m using serum, plasma, or whole bOrdered By: Marciano Guerin on 08-27-2024 GFR/1.73 sq M.predicted among non-blacks MDRD (S/P/Bld) [Vol rate/Area] 101 mL/min/{1.73_m2} >60 [facility] Comment on above: mL/min/1.73m2 CKD-EP I Creatinine Equation (2020) Hematocrit Auto (Bld) [Volum e fraction]Ordered By: Marciano Guerin on 08-27-2024 Hematocrit (Bld) [Volume fraction] 21.6 % Low 40-54 [facility] Hemoglobin measurementOrdere d By: Marciano Guerin on 08-27-2024 Hemoglobin (Bld) [Mass/Vol] 7.2 g/dL Low 13.0-16.5 [facility] Immature granulocytes/100 WB C Auto (Bld)Ordered By: Marciano Guerin on 08-27-2024 Immature granulocytes/100 WBC (Bld) 0.600 % 0.0-0.9 [facility] Comment on above: IG% - Immature Granu locytes (promyelocytes, myelocytes and metamyelocytes) > 1% indicates that a LEFT SHIFT is Present. MCV (mean corpuscular volume ) determinationOrdered By: Marciano Guerin on 08-27-2024 MCV (RBC) [Entitic vol] 90.8 fL 80-94 [facility] Magnesiumon 08-27-2024 Magnesium [Mass/Vol] 2.2 mg/dL Normal 1.5-2.2 [facility] Comment on above: Performed By: #### L 500.2500, L501.2300, L501.5200, L100.0100 ####[facility] [address] [place], [address] Magnesium measurement (mass/ volume)Ordered By: Marciano Guerin on 08-27-2024 Magnesium (Unsp spec) [Mass/Vol] 2.2 mg/dL 1.5-2.2 [facility] Mean corpuscular hemoglobin (MCH) determinationOrdered By: Marciano Guerin on 08-27-2024 MCH (RBC) [Entitic mass] 30.3 pg 27.0-32.0 [facility] Mean corpuscular hemoglobin concentration (MCHC) determinationOrdered By: Marciano Guerin on 08-27-2024 MCHC (RBC) [Mass/Vol] 33.3 g/dL 32-36 [facility] Mean platelet volume determi nationOrdered By: Marciano Guerin on 08-27-2024 Platelet mean volume (Bld) [Entitic vol] 10.4 fL 6.2-12.0 [facility] Monocyte percentageOrdered B y: Marciano Guerin on 08-27-2024 Monocytes/100 WBC (Bld) 10.1 % High 0-10 [facility] Neutrophil percentageOrdered By: Marciano Guerin on 08-27-2024 Neutrophils/100 WBC (Bld) 52.9 % 47-70 [facility] Nucleated red blood cell per centageOrdered By: Marciano Guerin on 08-27-2024 Nucleated RBC/100 WBC (Bld) [Ratio] 0 % 0-5 [facility] Phosphoruson 08-27-2024 Phosphate [Mass/Vol] 2.8 mg/dL Normal 2.7-4.5 [facility] Comment on above: Performed By: #### L 500.2500, L501.2300, L501.5200, L100.0100 ####[facility] [address] [place], [address] Platelet countOrdered By: Theresa Guerin on 08-27-2024 Platelets (Bld) [#/Vol] 133 10*3/uL Low 150-450 [facility] Potassium measurement (mass/ volume)Ordered By: Marciano Guerin on 08-27-2024 Potassium (Unsp spec) [Mass/Vol] 2.9 mmol/L Low 3.3-5.1 [facility] RBC Auto (Bld) [#/Vol]Ordere d By: Marciano Guerin on 08-27-2024 RBC (Bld) [#/Vol] 2.38 10*6/uL Low 4.6-6.2 [facility] Serum creatinine measurement (mass/volume)Ordered By: Marciano Guerin on 08-27-2024 Creatinine [Mass/Vol] 0.77 mg/dL 0.70-1.20 [facility] Serum glucose measurement (m ass/volume)Ordered By: Marciano Guerin on 08-27-2024 Glucose [Mass/Vol] 98 mg/dL 70-99 [facility] Serum or plasma calcium kristie urement (mass/volume)Ordered By: Marciano Guerin on 08-27-2024 Calcium [Mass/Vol] 8.0 mg/dL 7.6-11.0 [facility] Serum or plasma urea nitroge n measurement (mass/volume)Ordered By: Marciano Guerin on 08-27-2024 Urea nitrogen [Mass/Vol] 9 mg/dL 4-19 [facility] Sodium levelOrdered By: Alfreda Guerin on 08-27-2024 Sodium [Moles/Vol] 144 mmol/L 133-145 [facility] White blood cell (WBC) count Ordered By: Marciano Guerin on 08-27-2024 WBC (Bld) [#/Vol] 3.4 10*3/uL Low 4.4-11.0 [facility] Basic Metabolic Profile (BMP )on 08-26-2024 BUN/CRE 11.2 RATIO Normal 10-20 [facility] Comment on above: Performed By: #### L 501.2300, L500.2500 ####[facility] [address] [place], [address] Calcium [Mass/Vol] 8.0 mg/dL Normal 7.6-11.0 [facility] Comment on above: Performed By: #### L 501.2300, L500.2500 ####[facility] [address] [place], [address] Chloride [Moles/Vol] 115 mmol/L High 98-108 [facility] Comment on above: Performed By: #### L 501.2300, L500.2500 ####[facility] [address] [place], [address] CO2 [Moles/Vol] 22.9 mmol/L Normal 21.0-32.0 [facility] Comment on above: Performed By: #### L 501.2300, L500.2500 ####[facility] [address] [place], [address] Creatinine [Mass/Vol] 0.78 mg/dL Normal 0.70-1.20 [facility] Comment on above: Performed By: #### L 501.2300, L500.2500 ####[facility] [address] [place], [address] ECRCL 97.48 ml/min Normal 50-250 [facility] Comment on above: Performed By: #### L 501.2300, L500.2500 ####[facility] [address] [place], [address] GAP 8 Normal 5-15 [facility] Comment on above: Performed By: #### L 501.2300, L500.2500 ####[facility] [address] [place], [address] GFR/1.73 sq M.predicted among non-blacks MDRD (S/P/Bld) [Vol rate/Area] 100 mL/min/{1.73_m2} Normal >60 [facility] Comment on above: Result Comment: mL/m in/1.73m2 CKD-EPI Creatinine Equation (2020) Performed By: #### L 501.2300, L500.2500 ####[facility] [address] [place], [address] Glucose [Mass/Vol] 110 mg/dL High 70-99 [facility] Comment on above: Performed By: #### L 501.2300, L500.2500 ####[facility] [address] [place], [address] Potassium [Moles/Vol] 2.7 mmol/L Invalid Interpretation Code 3.3-5.1 [facility] Comment on above: Result Comment: Crit ical Result(s) Called at: 08/26/2024-08:34 by: Milagro to Kiersten Panchal.??Results read back by same. Performed By: #### L 501.2300, L500.2500 ####[facility] [address] [place], [address] Sodium [Moles/Vol] 145 mmol/L Normal 133-145 [facility] Comment on above: Performed By: #### L 501.2300, L500.2500 ####[facility] [address] [place], [address] Urea nitrogen [Mass/Vol] 9 mg/dL Normal 4-19 [facility] Comment on above: Performed By: #### L 501.2300, L500.2500 ####[facility] [address] [place], [address] CBC-Complete Blood Cnt No Di ffon 08-26-2024 Erythrocyte distribution width (RBC) [Ratio] 12.7 % Normal 11.6-14.6 [facility] Comment on above: Performed By: #### L 100.0500 ####[facility] [address] [place], [address] Hematocrit (Bld) [Volume fraction] 22.3 % Low 40-54 [facility] Comment on above: Performed By: #### L 100.0500 ####[facility] [address] [place], [address] Hemoglobin (Bld) [Mass/Vol] 7.4 g/dL Low 13.0-16.5 [facility] Comment on above: Performed By: #### L 100.0500 ####[facility] [address] [place], [address] MCH (RBC) [Entitic mass] 30.3 pg Normal 27.0-32.0 [facility] Comment on above: Performed By: #### L 100.0500 ####[facility] [address] [place], [address] MCHC (RBC) [Mass/Vol] 33.2 g/dL Normal 32-36 [facility] Comment on above: Performed By: #### L 100.0500 ####[facility] [address] [place], [address] MCV (RBC) [Entitic vol] 91.4 fL Normal 80-94 [facility] Comment on above: Performed By: #### L 100.0500 ####[facility] [address] [place], [address] Platelet mean volume (Bld) [Entitic vol] 10.3 fL Normal 6.2-12.0 [facility] Comment on above: Performed By: #### L 100.0500 ####[facility] [address] [place], [address] Platelets (Bld) [#/Vol] 124 10*3/uL Low 150-450 [facility] Comment on above: Performed By: #### L 100.0500 ####[facility] [address] [place], [address] RBC (Bld) [#/Vol] 2.44 10*6/uL Low 4.6-6.2 [facility] Comment on above: Performed By: #### L 100.0500 ####[facility] [address] [place], [address] RDW SD 42.0 fl Normal 35.1-43.9 [facility] Comment on above: Performed By: #### L 100.0500 ####[facility] [address] [place], [address] WBC (Bld) [#/Vol] 3.9 10*3/uL Low 4.4-11.0 [facility] Comment on above: Performed By: #### L 100.0500 ####[facility] [address] [place], [address] Phosphoruson 08-26-2024 Phosphate [Mass/Vol] 2.5 mg/dL Low 2.7-4.5 [facility] Comment on above: Performed By: #### L 501.2300, L500.2500 ####[facility] [address] [place], [address] Trough vancomycin levelOrder ed By: Laci Jackson on 08-26-2024 Vancomycin trough [Mass/Vol] 18.9 ug/mL High 5.0-15.0 [facility] Comment on above: Recommended goal tro ugh ranges are generally 10-15 mcg/ml for less severe/complicated infections such as cellulitis or UTI and 15-20 mcg/ml for more severe/complicated infections such as bacteremia/sepsis, osteomyelitis, pneumonia or meningitis. Goal trough ranges should take into account indication, patient-specific factors and organism TETE.VANCOMYCIN STANDARED DRUG THERAPY TROUGH LEVEL: 5.0 - 15.0 mg/L VANCOMYCIN HIGH INTENSITY THERAPY TROUGH LEVEL: 15.0 - 20.0 mg/L High Intensity therapy recommended for serious lifethreatening infections include:- Pqjqbidlzz-Zqxjzgdajzgg-Lffecqhdh (Ventilator/Healtcare Associated)-Sepsis PLEASE CONTACT PHARMACY SERVICES (#[id number]) FOR INTERPRETATIONOF RESULTS. Vancomycin, Trough Levelon 0 08-26-2024 VANCO, TROUGH 18.9 ug/mL High 5.0-15.0 [facility] Comment on above: Order Comment: 1700 Result Comment: Arie mmended goal trough ranges are generally 10-15 mcg/mlfor less severe/complicated infections such as cellulitisor UTI and 15-20 mcg/ml for more severe/complicatedinfections such as bacteremia/sepsis, osteomyelitis,pneumonia or meningitis. Goal trough ranges should takeinto account indication, patient-specific factors andorganism TETE.VANCOMYCIN STANDARED DRUG THERAPY TROUGH LEVEL: 5.0 - 15.0 mg/LVANCOMYCIN HIGH INTENSITY THERAPY TROUGH LEVEL: 15.0 - 20.0 mg/LHigh Intensity therapy recommended for serious lifethreatening infections include:- Dtxfsqbcse-Pdimcpoouybb-Xrbpcoawl (Ventilator/Healtcare Associated)-SepsisPLEASE CONTACT PHARMACY SERVICES (#[id number]) FOR INTERPRETATIONOF RESULTS. Performed By: #### L 501.8820 ####[facility] [address] [facility] [place], [address] Ammoniaon 08-25-2024 Ammonia (P) [Moles/Vol] 18.0 umol/L Normal [facility] Comment on above: Performed By: #### L 503.5510 ####[facility] [address] [place], [address] Urine Cultureon 08-25-2024 URC Normal [facility] Comment on above: Performed By: #### L 400.0001, M100.2200 ####[facility] [address] [facility] [place], [address] Venous blood ammonia measure mentOrdered By: Roxanne More on 08-25-2024 Ammonia (P) [Moles/Vol] 18.0 umol/L - [facility] Basic Metabolic Profile (BMP )on 08-24-2024 BUN/CRE 16.4 RATIO Normal 10-20 [facility] Comment on above: Performed By: #### L 500.2500 ####[facility] [address] [place], [address] Calcium [Mass/Vol] 8.3 mg/dL Normal 7.6-11.0 [facility] Comment on above: Performed By: #### L 500.2500 ####[facility] [address], [address] Chloride [Moles/Vol] 114 mmol/L High 98-108 [facility] Comment on above: Performed By: #### L 500.2500 ####[facility] [address] [place], [address] CO2 [Moles/Vol] 22.2 mmol/L Normal 21.0-32.0 [facility] Comment on above: Performed By: #### L 500.2500 ####[facility] [address] [place], [address] Creatinine [Mass/Vol] 0.83 mg/dL Normal 0.70-1.20 [facility] Comment on above: Performed By: #### L 500.2500 ####[facility] [address] [place], [address] ECRCL 93.03 ml/min Normal 50-250 [facility] Comment on above: Performed By: #### L 500.2500 ####[facility] [address] [place], [address] GAP 9 Normal 5-15 [facility] Comment on above: Performed By: #### L 500.2500 ####[facility] [address] [place], [address] GFR/1.73 sq M.predicted among non-blacks MDRD (S/P/Bld) [Vol rate/Area] 98 mL/min/{1.73_m2} Normal >60 [facility] Comment on above: Result Comment: mL/m in/1.73m2 CKD-EPI Creatinine Equation (2020) Performed By: #### L 500.2500 ####[facility] [address] [place], [address] Glucose [Mass/Vol] 103 mg/dL High 70-99 [facility] Comment on above: Performed By: #### L 500.2500 ####[facility] [address] [place], [address] Potassium [Moles/Vol] 3.0 mmol/L Low 3.3-5.1 [facility] Comment on above: Performed By: #### L 500.2500 ####[facility] [address] [place], [address] Sodium [Moles/Vol] 145 mmol/L Normal 133-145 [facility] Comment on above: Performed By: #### L 500.2500 ####[facility] [address] [place], [address] Urea nitrogen [Mass/Vol] 14 mg/dL Normal 4-19 [facility] Comment on above: Performed By: #### L 500.2500 ####[facility] [address] [place], [address] Blood cultureOrdered By: Agustin Jackson on 08-24-2024 Bacteria identified Cx Nom (Bld) No growth in 5 days. [facility] CBC-Complete Blood Cnt No Di ffon 08-24-2024 Erythrocyte distribution width (RBC) [Ratio] 12.2 % Normal 11.6-14.6 [facility] Comment on above: Performed By: #### L 100.0500 ####[facility] [address] [place], [address] Hematocrit (Bld) [Volume fraction] 22.2 % Low 40-54 [facility] Comment on above: Performed By: #### L 100.0500 ####[facility] [address] [place], [address] Hemoglobin (Bld) [Mass/Vol] 7.4 g/dL Low 13.0-16.5 [facility] Comment on above: Performed By: #### L 100.0500 ####[facility] [address] [place], [address] MCH (RBC) [Entitic mass] 30.3 pg Normal 27.0-32.0 [facility] Comment on above: Performed By: #### L 100.0500 ####[facility] [address] [place], [address] MCHC (RBC) [Mass/Vol] 33.3 g/dL Normal 32-36 [facility] Comment on above: Performed By: #### L 100.0500 ####[facility] [address] [place], [address] MCV (RBC) [Entitic vol] 91.0 fL Normal 80-94 [facility] Comment on above: Performed By: #### L 100.0500 ####[facility] [address] [place], [address] Platelet mean volume (Bld) [Entitic vol] 10.6 fL Normal 6.2-12.0 [facility] Comment on above: Performed By: #### L 100.0500 ####[facility] [address] [place], [address] Platelets (Bld) [#/Vol] 103 10*3/uL Low 150-450 [facility] Comment on above: Performed By: #### L 100.0500 ####[facility] [address] [place], [address] RBC (Bld) [#/Vol] 2.44 10*6/uL Low 4.6-6.2 [facility] Comment on above: Performed By: #### L 100.0500 ####[facility] [address] [place], [address] RDW SD 40.2 fl Normal 35.1-43.9 [facility] Comment on above: Performed By: #### L 100.0500 ####[facility] [address] [place], [address] WBC (Bld) [#/Vol] 2.7 10*3/uL Low 4.4-11.0 [facility] Comment on above: Performed By: #### L 100.0500 ####[facility] [address] [place], [address] Culture, Blood (WB)on 2024 CUB Normal [facility] Comment on above: Performed By: #### M 200.1000 ####[facility] [address] [place], [address] Echo Transesophageal (DARREN)on 08-24-2024 Echo Transesophageal (DARREN) Normal [facility] Electrocardiogram reportOrde red By: Leroy Hills on 08-24-2024 EKG study [facility] Work Phone: Magnesiumon 08-24-2024 Magnesium [Mass/Vol] 2.2 mg/dL Normal 1.5-2.2 [facility] Comment on above: Performed By: #### L 501.2300, L501.5200 ####[facility] [address] [place], [address] Phosphoruson 08-24-2024 Phosphate [Mass/Vol] 2.4 mg/dL Low 2.7-4.5 [facility] Comment on above: Performed By: #### L 501.2300, L501.5200 ####[facility] [address] [place], [address] Transesophageal echocardiogr am reportOrdered By: Leroy Hills on 08-24-2024 Study report [facility] Work Phone: Vancomycin, Trough Levelon 0 08-24-2024 VANCO, TROUGH 17.5 ug/mL High 5.0-15.0 [facility] Comment on above: Order Comment: Comme nts: Trough to be drawn 30 mins prior to scheduled dosePT CARE WILL CALL WHEN [id number] Result Comment: Arie mmended goal trough ranges are generally 10-15 mcg/mlfor less severe/complicated infections such as cellulitisor UTI and 15-20 mcg/ml for more severe/complicatedinfections such as bacteremia/sepsis, osteomyelitis,pneumonia or meningitis. Goal trough ranges should takeinto account indication, patient-specific factors andorganism TETE.VANCOMYCIN STANDARED DRUG THERAPY TROUGH LEVEL: 5.0 - 15.0 mg/LVANCOMYCIN HIGH INTENSITY THERAPY TROUGH LEVEL: 15.0 - 20.0 mg/LHigh Intensity therapy recommended for serious lifethreatening infections include:- Rvbtraptkw-Sbntpunhynlc-Obxjshdhp (Ventilator/Healtcare Associated)-SepsisPLEASE CONTACT PHARMACY SERVICES (#1593) FOR INTERPRETATIONOF RESULTS. Performed By: #### L 501.8820 ####[facility] [address] [place], [place], [id number] Basic Metabolic Profile (BMP )on 08-23-2024 BUN/CRE 21.5 RATIO High 10-20 [facility] Comment on above: Performed By: #### L 500.2500, L100.0100 ####[facility] [address] [place], [address] Calcium [Mass/Vol] 8.4 mg/dL Normal 7.6-11.0 [facility] Comment on above: Performed By: #### L 500.2500, L100.0100 ####[facility] [address] [place], [address] Chloride [Moles/Vol] 114 mmol/L High 98-108 [facility] Comment on above: Performed By: #### L 500.2500, L100.0100 ####[facility] [address] [place], [address] CO2 [Moles/Vol] 19.7 mmol/L Low 21.0-32.0 [facility] Comment on above: Performed By: #### L 500.2500, L100.0100 ####[facility] [address] [place], [address] Creatinine [Mass/Vol] 0.82 mg/dL Normal 0.70-1.20 [facility] Comment on above: Performed By: #### L 500.2500, L100.0100 ####[facility] [address] [place], [address] ECRCL 94.95 ml/min Normal 50-250 [facility] Comment on above: Performed By: #### L 500.2500, L100.0100 ####[facility] [address] [place], [address] GAP 9 Normal 5-15 [facility] Comment on above: Performed By: #### L 500.2500, L100.0100 ####[facility] [address] [place], [address] GFR/1.73 sq M.predicted among non-blacks MDRD (S/P/Bld) [Vol rate/Area] 99 mL/min/{1.73_m2} Normal >60 [facility] Comment on above: Result Comment: mL/m in/1.73m2 CKD-EPI Creatinine Equation (2020) Performed By: #### L 500.2500, L100.0100 ####[facility] [address] [place], [address] Glucose [Mass/Vol] 90 mg/dL Normal 70-99 [facility] Comment on above: Performed By: #### L 500.2500, L100.0100 ####[facility] [address] [place], [address] Potassium [Moles/Vol] 3.1 mmol/L Low 3.3-5.1 [facility] Comment on above: Performed By: #### L 500.2500, L100.0100 ####[facility] [address] [place], [address] Sodium [Moles/Vol] 143 mmol/L Normal 133-145 [facility] Comment on above: Performed By: #### L 500.2500, L100.0100 ####[facility] [address] [place], [address] Urea nitrogen [Mass/Vol] 18 mg/dL Normal 4-19 [facility] Comment on above: Performed By: #### L 500.2500, L100.0100 ####[facility] [address] [place], [address] Blood cultureOrdered By: Agustin Jackson on 08-23-2024 Bacteria identified Cx Nom (Bld) No growth in 5 days. [facility] Blood manual differential co mment interpretation (narrative result)Ordered By: Marciano Guerin on 08-23-2024 Manual differential comment Christ (Bld) [Interp] SCANNED [facility] CBC W/Diff, Automatedon 08-02 PLT EST MOD DEC Normal ADEQ [facility] Comment on above: Performed By: #### L 500.2500, L100.0100 ####[facility] [address] [place], [address] SMEAR COMMENT SCANNED Normal [facility] Comment on above: Performed By: #### L 500.2500, L100.0100 ####[facility] [address] [place], [address] Consultation - Infectious Dx on 08-23-2024 Consultation - Infectious Dx Normal [facility] EGD Reporton 08-23-2024 EGD Report Normal [facility] MR/POSTOP.ANEon 08-23-2024 MR/POSTOP.ANE Normal [facility] MR/AGVMNOAN1bs 08-23-2024 MR/POSTOPAN2 Normal [facility] Platelet estimateOrdered By: Marciano Guerin on 08-23-2024 Platelets LM Ql (Bld) MOD DEC ADEQ [facility] Vancomycin, Trough Levelon 0 08-23-2024 VANCO, TROUGH 18.2 ug/mL High 5.0-15.0 [facility] Comment on above: Order Comment: Comme nts: Trough to be drawn 30 mins prior to scheduled [id number] Result Comment: Arie mmended goal trough ranges are generally 10-15 mcg/mlfor less severe/complicated infections such as cellulitisor UTI and 15-20 mcg/ml for more severe/complicatedinfections such as bacteremia/sepsis, osteomyelitis,pneumonia or meningitis. Goal trough ranges should takeinto account indication, patient-specific factors andorganism TETE.VANCOMYCIN STANDARED DRUG THERAPY TROUGH LEVEL: 5.0 - 15.0 mg/LVANCOMYCIN HIGH INTENSITY THERAPY TROUGH LEVEL: 15.0 - 20.0 mg/LHigh Intensity therapy recommended for serious lifethreatening infections include:- Pvndzltoal-Xtlybsjngqct-Orhsnornd (Ventilator/Healtcare Associated)-SepsisPLEASE CONTACT PHARMACY SERVICES (#0242) FOR INTERPRETATIONOF RESULTS. Performed By: #### L 501.8820 ####[facility] [address] [place], [address] Basic Metabolic Profile (BMP )on 08-22-2024 BUN/CRE 21.3 RATIO High 10-20 [facility] Comment on above: Performed By: #### L 500.2500, L100.0100 ####[facility] [address] [place], [address] Calcium [Mass/Vol] 8.3 mg/dL Normal 7.6-11.0 [facility] Comment on above: Performed By: #### L 500.2500, L100.0100 ####[facility] [address] [place], [address] Chloride [Moles/Vol] 112 mmol/L High 98-108 [facility] Comment on above: Performed By: #### L 500.2500, L100.0100 ####[facility] [address] [place], [address] CO2 [Moles/Vol] 17.8 mmol/L Low 21.0-32.0 [facility] Comment on above: Performed By: #### L 500.2500, L100.0100 ####[facility] [address] [place], [address] Creatinine [Mass/Vol] 0.93 mg/dL Normal 0.70-1.20 [facility] Comment on above: Performed By: #### L 500.2500, L100.0100 ####[facility] [address] [place], [address] ECRCL 83.95 ml/min Normal 50-250 [facility] Comment on above: Performed By: #### L 500.2500, L100.0100 ####[facility] [address] [place], [address] GAP 9 Normal 5-15 [facility] Comment on above: Performed By: #### L 500.2500, L100.0100 ####[facility] [address] [place], [address] GFR/1.73 sq M.predicted among non-blacks MDRD (S/P/Bld) [Vol rate/Area] 93 mL/min/{1.73_m2} Normal >60 [facility] Comment on above: Result Comment: mL/m in/1.73m2 CKD-EPI Creatinine Equation (2020) Performed By: #### L 500.2500, L100.0100 ####[facility] [address] [place], [address] Glucose [Mass/Vol] 98 mg/dL Normal 70-99 [facility] Comment on above: Performed By: #### L 500.2500, L100.0100 ####[facility] [address] [place], [address] Potassium [Moles/Vol] 3.6 mmol/L Normal 3.3-5.1 [facility] Comment on above: Result Comment: Hemo lysis present, Results??could be affected.?? Performed By: #### L 500.2500, L100.0100 ####[facility] [address] [place], [address] Sodium [Moles/Vol] 139 mmol/L Normal 133-145 [facility] Comment on above: Performed By: #### L 500.2500, L100.0100 ####[facility] [address] [place], [address] Urea nitrogen [Mass/Vol] 20 mg/dL High 4-19 [facility] Comment on above: Performed By: #### L 500.2500, L100.0100 ####[facility] [address] [place], [address] CBC W/Diff, Automatedon 06-2 2-2025 Absolute Lymph 0.86 X10 3/uL Normal 0.83-4.51 [facility] Comment on above: Performed By: #### L 100.0100 ####[facility] [address] [place], [address] Absolute Neut 3.2 X10 3/uL Normal 2.0-7.7 [facility] Comment on above: Performed By: #### L 100.0100 ####[facility] [address] [place], [address] Basophils/100 WBC (Bld) 0.2 % Normal 0-1 [facility] Comment on above: Performed By: #### L 100.0100 ####[facility] [address] [place], [address] Eosinophils/100 WBC (Bld) 4.5 % Normal 0-5 [facility] Comment on above: Performed By: #### L 100.0100 ####[facility] [address] [place], [address] Erythrocyte distribution width (RBC) [Ratio] 12.2 % Normal 11.6-14.6 [facility] Comment on above: Performed By: #### L 100.0100 ####[facility] [address] [place], [address] Hematocrit (Bld) [Volume fraction] 24.4 % Low 40-54 [facility] Comment on above: Performed By: #### L 100.0100 ####[facility] [address] [place], [address] Hemoglobin (Bld) [Mass/Vol] 8.0 g/dL Low 13.0-16.5 [facility] Comment on above: Performed By: #### L 100.0100 ####[facility] [address] [place], [address] IG% 0.200 Normal 0.0-0.9 [facility] Comment on above: Result Comment: IG% - Immature Granulocytes (promyelocytes, myelocytes andmetamyelocytes) > 1% indicates that a LEFT SHIFT is Present. Performed By: #### L 100.0100 ####[facility] [address] [place], [address] Lymphocytes/100 WBC (Bld) 18.6 % Low 19-41 [facility] Comment on above: Performed By: #### L 100.0100 ####[facility] [address] [place], [address] MCH (RBC) [Entitic mass] 30.5 pg Normal 27.0-32.0 [facility] Comment on above: Performed By: #### L 100.0100 ####[facility] [address] [place], [address] MCHC (RBC) [Mass/Vol] 32.8 g/dL Normal 32-36 [facility] Comment on above: Performed By: #### L 100.0100 ####[facility] [address] [place], [address] MCV (RBC) [Entitic vol] 93.1 fL Normal 80-94 [facility] Comment on above: Performed By: #### L 100.0100 ####[facility] [address] [place], [address] Monocytes/100 WBC (Bld) 8.0 % Normal 0-10 [facility] Comment on above: Performed By: #### L 100.0100 ####[facility] [address] [place], [address] Neutrophils/100 WBC (Bld) 68.5 % Normal 47-70 [facility] Comment on above: Performed By: #### L 100.0100 ####[facility] [address] [place], [address] Nucleated RBC (Bld) [#/Vol] 0 10*3/uL Normal 0-5 [facility] Comment on above: Performed By: #### L 100.0100 ####[facility] [address] [place], [address] Platelet mean volume (Bld) [Entitic vol] 10.7 fL Normal 6.2-12.0 [facility] Comment on above: Performed By: #### L 100.0100 ####[facility] [address] [place], [address] Platelets (Bld) [#/Vol] 101 10*3/uL Low 150-450 [facility] Comment on above: Performed By: #### L 100.0100 ####[facility] [address] [place], [address] RBC (Bld) [#/Vol] 2.62 10*6/uL Low 4.6-6.2 [facility] Comment on above: Performed By: #### L 100.0100 ####[facility] [address] [place], [address] RDW SD 41.3 fl Normal 35.1-43.9 [facility] Comment on above: Performed By: #### L 100.0100 ####[facility] [address] [place], [address] WBC (Bld) [#/Vol] 4.6 10*3/uL Normal 4.4-11.0 [facility] Comment on above: Performed By: #### L 100.0100 ####[facility] [address] [place], [address] Absolute Neut Normal 2.0-7.7 [facility] Comment on above: Result Comment: This specimen has been REJECTED due to Laboratory criteria:Clotted.DAVE has been notified of need of recollection.08/22/245[address] [place] Performed By: #### L 500.2500, L100.0100 ####[facility] [address] [place], [address] HCT Normal 40-54 [facility] Comment on above: Result Comment: This specimen has been REJECTED due to Laboratory criteria:Clotted.DAVE has been notified of need of recollection.08/22/24519 [place] Performed By: #### L 500.2500, L100.0100 ####[facility] [address] [place], [address] HGB Normal 13.0-16.5 [facility] Comment on above: Result Comment: This specimen has been REJECTED due to Laboratory criteria:Clotted.DAVE has been notified of need of recollection.08/22/2420 [place] Performed By: #### L 500.2500, L100.0100 ####[facility] [address] [place], [address] MCH Normal 27.0-32.0 [facility] Comment on above: Result Comment: This specimen has been REJECTED due to Laboratory criteria:Clotted.DAVE has been notified of need of recollection.08/22/24519 [place] Performed By: #### L 500.2500, L100.0100 ####[facility] [address] [place], [address] MCHC Normal 32-36 [facility] Comment on above: Result Comment: This specimen has been REJECTED due to Laboratory criteria:Clotted.DAVE has been notified of need of recollection.08/22/245[address] [place] Performed By: #### L 500.2500, L100.0100 ####[facility] [address] [place], [address] MCV Normal 80-94 [facility] Comment on above: Result Comment: This specimen has been REJECTED due to Laboratory criteria:Clotted.DAVE has been notified of need of recollection.08/22/24519 [place] Performed By: #### L 500.2500, L100.0100 ####[facility] [address] [place], [address] NEUT% Normal 47-70 [facility] Comment on above: Result Comment: This specimen has been REJECTED due to Laboratory criteria:Clotted.DAVE has been notified of need of recollection.08/22/24519 [place] Performed By: #### L 500.2500, L100.0100 ####[facility] [address] [place], [address] PLT Normal 150-450 [facility] Comment on above: Result Comment: This specimen has been REJECTED due to Laboratory criteria:Clotted.DAVE has been notified of need of recollection.08/22/24519 [place] Performed By: #### L 500.2500, L100.0100 ####[facility] [address] [place], [address] RBC Normal 4.6-6.2 [facility] Comment on above: Result Comment: This specimen has been REJECTED due to Laboratory criteria:Clotted.DAVE has been notified of need of recollection.08/22/24519 [place] Performed By: #### L 500.2500, L100.0100 ####[facility] [address] [place], [address] RDW CV Normal 11.6-14.6 [facility] Comment on above: Result Comment: This specimen has been REJECTED due to Laboratory criteria:Clotted.DAVE has been notified of need of recollection.08/22/245[address] [place] Performed By: #### L 500.2500, L100.0100 ####[facility] [address] [place], [address] RDW SD Normal 35.1-43.9 [facility] Comment on above: Result Comment: This specimen has been REJECTED due to Laboratory criteria:Clotted.DAVE has been notified of need of recollection.08/22/245[address] [place] Performed By: #### L 500.2500, L100.0100 ####[facility] [address] [place], [address] WBC Normal 4.4-11.0 [facility] Comment on above: Result Comment: This specimen has been REJECTED due to Laboratory criteria:Clotted.DAVE has been notified of need of recollection.08/22/245[address] [place] Performed By: #### L 500.2500, L100.0100 ####[facility] [address] [place], [address] Basic Metabolic Profile (BMP )on 08-21-2024 BUN/CRE 25.7 RATIO High 10-20 [facility] Comment on above: Performed By: #### L 500.2500, L100.0100 ####[facility] [address] [place], [address] Calcium [Mass/Vol] 8.4 mg/dL Normal 7.6-11.0 [facility] Comment on above: Performed By: #### L 500.2500, L100.0100 ####[facility] [address] [place], [address] Chloride [Moles/Vol] 115 mmol/L High 98-108 [facility] Comment on above: Performed By: #### L 500.2500, L100.0100 ####[facility] [address] [place], [address] CO2 [Moles/Vol] 20.5 mmol/L Low 21.0-32.0 [facility] Comment on above: Performed By: #### L 500.2500, L100.0100 ####[facility] [address] [place], [address] Creatinine [Mass/Vol] 1.01 mg/dL Normal 0.70-1.20 [facility] Comment on above: Performed By: #### L 500.2500, L100.0100 ####[facility] [address] [place], [address] ECRCL 77.30 ml/min Normal 50-250 [facility] Comment on above: Performed By: #### L 500.2500, L100.0100 ####[facility] [address] [place], [address] GAP 8 Normal 5-15 [facility] Comment on above: Performed By: #### L 500.2500, L100.0100 ####[facility] [address] [place], [address] GFR/1.73 sq M.predicted among non-blacks MDRD (S/P/Bld) [Vol rate/Area] 84 mL/min/{1.73_m2} Normal >60 [facility] Comment on above: Result Comment: mL/m in/1.73m2 CKD-EPI Creatinine Equation (2020) Performed By: #### L 500.2500, L100.0100 ####[facility] [address] [place], [address] Glucose [Mass/Vol] 94 mg/dL Normal 70-99 [facility] Comment on above: Performed By: #### L 500.2500, L100.0100 ####[facility] [address] [place], [address] Potassium [Moles/Vol] 3.7 mmol/L Normal 3.3-5.1 [facility] Comment on above: Result Comment: Hemo lysis present, Results??could be affected.?? Performed By: #### L 500.2500, L100.0100 ####[facility] [address] [place], [address] Sodium [Moles/Vol] 143 mmol/L Normal 133-145 [facility] Comment on above: Performed By: #### L 500.2500, L100.0100 ####[facility] [address] [place], [address] Urea nitrogen [Mass/Vol] 26 mg/dL High 4-19 [facility] Comment on above: Performed By: #### L 500.2500, L100.0100 ####[facility] [address] [place], [address] CBC + diff autoon --2024 CBC W Auto Differential panel (Bld) [facility] CBC W/Diff, Automatedon - Absolute Lymph 1.00 X10 3/uL Normal 0.83-4.51 [facility] Comment on above: Performed By: #### L 100.0100 ####[facility] [address] [place], [address] Absolute Neut 3.9 X10 3/uL Normal 2.0-7.7 [facility] Comment on above: Performed By: #### L 100.0100 ####[facility] [address] [place], [address] Basophils/100 WBC (Bld) 0.2 % Normal 0-1 [facility] Comment on above: Performed By: #### L 100.0100 ####[facility] [address] [place], [address] Eosinophils/100 WBC (Bld) 2.9 % Normal 0-5 [facility] Comment on above: Performed By: #### L 100.0100 ####[facility] [address] [place], [address] Erythrocyte distribution width (RBC) [Ratio] 12.6 % Normal 11.6-14.6 [facility] Comment on above: Performed By: #### L 100.0100 ####[facility] [address] [place], [address] Hematocrit (Bld) [Volume fraction] 22.1 % Low 40-54 [facility] Comment on above: Performed By: #### L 100.0100 ####[facility] [address] [place], [address] Hemoglobin (Bld) [Mass/Vol] 7.2 g/dL Low 13.0-16.5 [facility] Comment on above: Performed By: #### L 100.0100 ####[facility] [address] [place], [address] IG% 0.500 Normal 0.0-0.9 [facility] Comment on above: Result Comment: IG% - Immature Granulocytes (promyelocytes, myelocytes andmetamyelocytes) > 1% indicates that a LEFT SHIFT is Present. Performed By: #### L 100.0100 ####[facility] [address] [place], [address] Lymphocytes/100 WBC (Bld) 18.2 % Low 19-41 [facility] Comment on above: Performed By: #### L 100.0100 ####[facility] [address] [place], [address] MCH (RBC) [Entitic mass] 30.4 pg Normal 27.0-32.0 [facility] Comment on above: Performed By: #### L 100.0100 ####[facility] [address] [place], [address] MCHC (RBC) [Mass/Vol] 32.6 g/dL Normal 32-36 [facility] Comment on above: Performed By: #### L 100.0100 ####[facility] [address] [place], [address] MCV (RBC) [Entitic vol] 93.2 fL Normal 80-94 [facility] Comment on above: Performed By: #### L 100.0100 ####[facility] [address] [place], [address] Monocytes/100 WBC (Bld) 7.8 % Normal 0-10 [facility] Comment on above: Performed By: #### L 100.0100 ####[facility] [address] [place], [address] Neutrophils/100 WBC (Bld) 70.4 % High 47-70 [facility] Comment on above: Performed By: #### L 100.0100 ####[facility] [address] [place], [address] Nucleated RBC (Bld) [#/Vol] 0 10*3/uL Normal 0-5 [facility] Comment on above: Performed By: #### L 100.0100 ####[facility] [address] [place], [address] Platelet mean volume (Bld) [Entitic vol] 10.8 fL Normal 6.2-12.0 [facility] Comment on above: Performed By: #### L 100.0100 ####[facility] [address] [place], [address] Platelets (Bld) [#/Vol] 94 10*3/uL Low 150-450 [facility] Comment on above: Performed By: #### L 100.0100 ####[facility] [address] [place], [address] RBC (Bld) [#/Vol] 2.37 10*6/uL Low 4.6-6.2 [facility] Comment on above: Performed By: #### L 100.0100 ####[facility] [address] [place], [address] RDW SD 42.8 fl Normal 35.1-43.9 [facility] Comment on above: Performed By: #### L 100.0100 ####[facility] [address] [place], [address] WBC (Bld) [#/Vol] 5.5 10*3/uL Normal 4.4-11.0 [facility] Comment on above: Performed By: #### L 100.0100 ####[facility] [address] [place], [address] Absolute Neut Normal 2.0-7.7 [facility] Comment on above: Result Comment: This specimen has been REJECTED due to Laboratory criteria:Clotted.ADY FRANZ has been notified of need of recollection.08/21/24 1548 Gissel Villavicencio Performed By: #### L 500.2500, L100.0100 ####[facility] [address] [place], [address] HCT Normal 40-54 [facility] Comment on above: Result Comment: This specimen has been REJECTED due to Laboratory criteria:Clotted.ADY FRANZ has been notified of need of recollection.08/21/24 1548 Gissel Maye Performed By: #### L 500.2500, L100.0100 ####[facility] [address] [place], [address] HGB Normal 13.0-16.5 [facility] Comment on above: Result Comment: This specimen has been REJECTED due to Laboratory criteria:Clotted.ADY FRNAZ has been notified of need of recollection.08/21/24 1548 Gissel Maye Performed By: #### L 500.2500, L100.0100 ####[facility] [address] [place], [address] MCH Normal 27.0-32.0 [facility] Comment on above: Result Comment: This specimen has been REJECTED due to Laboratory criteria:Clotted.ADY FRANZ has been notified of need of recollection.08/21/24 1548 Gissel Maye Performed By: #### L 500.2500, L100.0100 ####[facility] [address] [place], [address] MCHC Normal 32-36 [facility] Comment on above: Result Comment: This specimen has been REJECTED due to Laboratory criteria:Clotted.ADY FRANZ has been notified of need of recollection.08/21/24 1548 Gissel Maye Performed By: #### L 500.2500, L100.0100 ####[facility] [address] [place], [address] MCV Normal 80-94 [facility] Comment on above: Result Comment: This specimen has been REJECTED due to Laboratory criteria:Clotted.ADY FRANZ has been notified of need of recollection.08/21/24 1548 Gissel Maye Performed By: #### L 500.2500, L100.0100 ####[facility] [address] [place], [address] NEUT% Normal 47-70 [facility] Comment on above: Result Comment: This specimen has been REJECTED due to Laboratory criteria:Clotted.ADY FRANZ has been notified of need of recollection.08/21/24 1548 Gissel Maye Performed By: #### L 500.2500, L100.0100 ####[facility] [address] [place], [address] PLT Normal 150-450 [facility] Comment on above: Result Comment: This specimen has been REJECTED due to Laboratory criteria:Clotted.ADY FRANZ has been notified of need of recollection.08/21/24 1548 Gissel Maye Performed By: #### L 500.2500, L100.0100 ####[facility] [address] [place], [address] RBC Normal 4.6-6.2 [facility] Comment on above: Result Comment: This specimen has been REJECTED due to Laboratory criteria:Clotted.ADY FRANZ has been notified of need of recollection.08/21/24 1548 Gissel Maye Performed By: #### L 500.2500, L100.0100 ####[facility] [address] [place], [address] RDW CV Normal 11.6-14.6 [facility] Comment on above: Result Comment: This specimen has been REJECTED due to Laboratory criteria:Clotted.ADY FRANZ has been notified of need of recollection.08/21/24 1548 Gissel Maye Performed By: #### L 500.2500, L100.0100 ####[facility] [address] [place], [address] RDW SD Normal 35.1-43.9 [facility] Comment on above: Result Comment: This specimen has been REJECTED due to Laboratory criteria:Clotted.ADY FRANZ has been notified of need of recollection.08/21/24 1548 Gissel Maye Performed By: #### L 500.2500, L100.0100 ####[facility] [address] [place], [address] WBC Normal 4.4-11.0 [facility] Comment on above: Result Comment: This specimen has been REJECTED due to Laboratory criteria:Clotted.ADY FRANZ has been notified of need of recollection.08/21/24 1548 Gisselmaco Villavicencio Performed By: #### L 500.2500, L100.0100 ####[facility] [address] [place], [address] M8200.1000on 08-21-2024 M8200.1000 Normal [facility] Comment on above: Performed By: #### M 8200.1000 ####[facility] [address] [place], [address] Nasal methicillin resistant Staphylococcus aureus (MRSA) DNA detection by PCROrdered By: Marciano Guerin on 08-21-2024 MRSA DNA KYLIE+probe Ql (Nose) [facility] Basic Metabolic Profile (BMP )on 08-20-2024 BUN/CRE 18.1 RATIO Normal 10-20 [facility] Comment on above: Performed By: #### L 100.0100, L500.2500 ####[facility] [address] [place], [address] Calcium [Mass/Vol] 8.8 mg/dL Normal 7.6-11.0 [facility] Comment on above: Performed By: #### L 100.0100, L500.2500 ####[facility] [address] [place], [address] Chloride [Moles/Vol] 120 mmol/L High 98-108 [facility] Comment on above: Performed By: #### L 100.0100, L500.2500 ####[facility] [address] [place], [address] CO2 [Moles/Vol] 20.9 mmol/L Low 21.0-32.0 [facility] Comment on above: Performed By: #### L 100.0100, L500.2500 ####[facility] [address] [place], [address] Creatinine [Mass/Vol] 0.99 mg/dL Normal 0.70-1.20 [facility] Comment on above: Performed By: #### L 100.0100, L500.2500 ####[facility] [address] [place], [address] ECRCL 74.00 ml/min Normal 50-250 [facility] Comment on above: Performed By: #### L 100.0100, L500.2500 ####[facility] [address] [place], [address] GAP 9 Normal 5-15 [facility] Comment on above: Performed By: #### L 100.0100, L500.2500 ####[facility] [address] [place], [address] GFR/1.73 sq M.predicted among non-blacks MDRD (S/P/Bld) [Vol rate/Area] 86 mL/min/{1.73_m2} Normal >60 [facility] Comment on above: Result Comment: mL/m in/1.73m2 CKD-EPI Creatinine Equation (2020) Performed By: #### L 100.0100, L500.2500 ####[facility] [address] [place], [address] Glucose [Mass/Vol] 120 mg/dL High 70-99 [facility] Comment on above: Performed By: #### L 100.0100, L500.2500 ####[facility] [address] [place], [address] Potassium [Moles/Vol] 3.8 mmol/L Normal 3.3-5.1 [facility] Comment on above: Performed By: #### L 100.0100, L500.2500 ####[facility] [address] [place], [address] Sodium [Moles/Vol] 150 mmol/L High 133-145 [facility] Comment on above: Performed By: #### L 100.0100, L500.2500 ####[facility] [address] [place], [address] Urea nitrogen [Mass/Vol] 18 mg/dL Normal 4-19 [facility] Comment on above: Performed By: #### L 100.0100, L500.2500 ####[facility] [address] [place], [address] CBC W/Diff, Automatedon 06-2 0-2024 Absolute Lymph 0.61 X10 3/uL Low 0.83-4.51 [facility] Comment on above: Performed By: #### L 100.0100, L500.2500 ####[facility] [address] [place], [address] Absolute Neut 4.4 X10 3/uL Normal 2.0-7.7 [facility] Comment on above: Performed By: #### L 100.0100, L500.2500 ####[facility] [address] [place], [address] Basophils/100 WBC (Bld) 0.2 % Normal 0-1 [facility] Comment on above: Performed By: #### L 100.0100, L500.2500 ####[facility] [address] [place], [address] Eosinophils/100 WBC (Bld) 0.2 % Normal 0-5 [facility] Comment on above: Performed By: #### L 100.0100, L500.2500 ####[facility] [address] [place], [address] Erythrocyte distribution width (RBC) [Ratio] 12.6 % Normal 11.6-14.6 [facility] Comment on above: Performed By: #### L 100.0100, L500.2500 ####[facility] [address] [place], [address] Hematocrit (Bld) [Volume fraction] 25.4 % Low 40-54 [facility] Comment on above: Performed By: #### L 100.0100, L500.2500 ####[facility] [address] [place], [address] Hemoglobin (Bld) [Mass/Vol] 8.3 g/dL Low 13.0-16.5 [facility] Comment on above: Performed By: #### L 100.0100, L500.2500 ####[facility] [address] [place], [address] IG% 0.400 Normal 0.0-0.9 [facility] Comment on above: Result Comment: IG% - Immature Granulocytes (promyelocytes, myelocytes andmetamyelocytes) > 1% indicates that a LEFT SHIFT is Present. Performed By: #### L 100.0100, L500.2500 ####[facility] [address] [place], [address] Lymphocytes/100 WBC (Bld) 11.2 % Low 19-41 [facility] Comment on above: Performed By: #### L 100.0100, L500.2500 ####[facility] [address] [place], [address] MCH (RBC) [Entitic mass] 30.5 pg Normal 27.0-32.0 [facility] Comment on above: Performed By: #### L 100.0100, L500.2500 ####[facility] [address] [place], [address] MCHC (RBC) [Mass/Vol] 32.7 g/dL Normal 32-36 [facility] Comment on above: Performed By: #### L 100.0100, L500.2500 ####[facility] [address] [place], [address] MCV (RBC) [Entitic vol] 93.4 fL Normal 80-94 [facility] Comment on above: Performed By: #### L 100.0100, L500.2500 ####[facility] [address] [place], [address] Monocytes/100 WBC (Bld) 6.8 % Normal 0-10 [facility] Comment on above: Performed By: #### L 100.0100, L500.2500 ####[facility] [address] [place], [address] Neutrophils/100 WBC (Bld) 81.2 % High 47-70 [facility] Comment on above: Performed By: #### L 100.0100, L500.2500 ####[facility] [address] [place], [address] Nucleated RBC (Bld) [#/Vol] 0 10*3/uL Normal 0-5 [facility] Comment on above: Performed By: #### L 100.0100, L500.2500 ####[facility] [address] [place], [address] Platelet mean volume (Bld) [Entitic vol] 10.5 fL Normal 6.2-12.0 [facility] Comment on above: Performed By: #### L 100.0100, L500.2500 ####[facility] [address] [place], [address] Platelets (Bld) [#/Vol] 101 10*3/uL Low 150-450 [facility] Comment on above: Performed By: #### L 100.0100, L500.2500 ####[facility] [address] [place], [address] RBC (Bld) [#/Vol] 2.72 10*6/uL Low 4.6-6.2 [facility] Comment on above: Performed By: #### L 100.0100, L500.2500 ####[facility] [address] [place], [address] RDW SD 42.9 fl Normal 35.1-43.9 [facility] Comment on above: Performed By: #### L 100.0100, L500.2500 ####[facility] [address] [place], [address] WBC (Bld) [#/Vol] 5.4 10*3/uL Normal 4.4-11.0 [facility] Comment on above: Performed By: #### L 100.0100, L500.2500 ####[facility] [address] [place], [address] MR/POSTOP.ANEon 08-20-2024 MR/POSTOP.ANE Normal [facility] MR/[id number] 08-20-2024 MR/POSTOPAN2 Normal [facility] Operative Reporton Operative Report Normal [facility] Type AND Screenon 08-20-2024 Ab SCREEN GEL Negative Normal [facility] Comment on above: Order Comment: S Performed By: #### B TS ####[facility] [address] [place], [address] Vancomycin, Trough Levelon 0 08-20-2024 VANCO, TROUGH 10.2 ug/mL Normal 5.0-15.0 [facility] Comment on above: Order Comment: Comme nts: Trough to be drawn 30 mins prior to scheduled [id number] Result Comment: Arie mmended goal trough ranges are generally 10-15 mcg/mlfor less severe/complicated infections such as cellulitisor UTI and 15-20 mcg/ml for more severe/complicatedinfections such as bacteremia/sepsis, osteomyelitis,pneumonia or meningitis. Goal trough ranges should takeinto account indication, patient-specific factors andorganism TETE.VANCOMYCIN STANDARED DRUG THERAPY TROUGH LEVEL: 5.0 - 15.0 mg/LVANCOMYCIN HIGH INTENSITY THERAPY TROUGH LEVEL: 15.0 - 20.0 mg/LHigh Intensity therapy recommended for serious lifethreatening infections include:- Lyysnxutxr-Ggapuieouwni-Mesvhdbbr (Ventilator/Healtcare Associated)-SepsisPLEASE CONTACT PHARMACY SERVICES (#5941) FOR INTERPRETATIONOF RESULTS. Performed By: #### L 501.8820 ####[facility] [address] [place], [address] Abdomen/Pelvis W IV Cont ONL Yon 08-19-2024 Abdomen/Pelvis W IV Cont ONLY Normal [facility] Alcohol, Blood (Medical)-Ser umon 08-19-2024 SERUM ETOH < 10.1 Normal <=10.0 [facility] Comment on above: Order Comment: Blood cultures x2, from two different sites Result Comment: This test is for medical purposes only. The legaldefinition of intoxication varies according to local law. Performed By: #### L 501.9520, L501.9985, L505.5000, L501.8100, L300.8000, L501.9100 ####[facility] [address] [place], [address] Amphetamine detection with 1 000 ng/mL as cutoffOrdered By: Jose Olvera on 08-19-2024 Amphetamines Screen method >1000 ng/mL Ql (U) Negative < 200 ng/mL [facility] Basic Metabolic Profile (BMP )on 08-19-2024 BUN/CRE 15.0 RATIO Normal 10-20 [facility] Comment on above: Performed By: #### L 500.2500, L100.0100 ####[facility] [address] [place], [address] Calcium [Mass/Vol] 8.3 mg/dL Normal 7.6-11.0 [facility] Comment on above: Performed By: #### L 500.2500, L100.0100 ####[facility] [address] [place], [address] Chloride [Moles/Vol] 118 mmol/L High 98-108 [facility] Comment on above: Performed By: #### L 500.2500, L100.0100 ####[facility] [address] [place], [address] CO2 [Moles/Vol] 19.3 mmol/L Low 21.0-32.0 [facility] Comment on above: Performed By: #### L 500.2500, L100.0100 ####[facility] [address] [place], [address] Creatinine [Mass/Vol] 0.94 mg/dL Normal 0.70-1.20 [facility] Comment on above: Performed By: #### L 500.2500, L100.0100 ####[facility] [address] [place], [address] ECRCL 78.16 ml/min Normal 50-250 [facility] Comment on above: Performed By: #### L 500.2500, L100.0100 ####[facility] [address] [place], [address] GAP 8 Normal 5-15 [facility] Comment on above: Performed By: #### L 500.2500, L100.0100 ####[facility] [address] [place], [address] GFR/1.73 sq M.predicted among non-blacks MDRD (S/P/Bld) [Vol rate/Area] 91 mL/min/{1.73_m2} Normal >60 [facility] Comment on above: Result Comment: mL/m in/1.73m2 CKD-EPI Creatinine Equation (2020) Performed By: #### L 500.2500, L100.0100 ####[facility] [address] [place], [address] Glucose [Mass/Vol] 128 mg/dL High 70-99 [facility] Comment on above: Performed By: #### L 500.2500, L100.0100 ####[facility] [address] [place], [address] Potassium [Moles/Vol] 3.7 mmol/L Normal 3.3-5.1 [facility] Comment on above: Performed By: #### L 500.2500, L100.0100 ####[facility] [address] [place], [address] Sodium [Moles/Vol] 145 mmol/L Normal 133-145 [facility] Comment on above: Performed By: #### L 500.2500, L100.0100 ####[facility] [address] [place], [address] Urea nitrogen [Mass/Vol] 14 mg/dL Normal - [facility] Comment on above: Performed By: #### L 500.2500, L100.0100 ####[facility] [address] [place], [address] Brain/Head without Contrasto n 08-19-2024 Brain/Head without Contrast Normal [facility] CBC W/Diff, Automatedon 08-01 PLT EST MOD DEC Normal ADEQ [facility] Comment on above: Performed By: #### L 500.2500, L100.0100 ####[facility] [address] [place], [address] SMEAR COMMENT SCANNED Normal [facility] Comment on above: Performed By: #### L 500.2500, L100.0100 ####[facility] [address] [place], [address] CTA Chest W/WO Contraston CTA Chest W/WO Contrast Normal [facility] Consultation - Intensiviston 08-19-2024 Consultation - Administrative Supervisor Normal [facility] D-Dimer Quantitative (DVT/PE )on 08-19-2024 D-DIMER QUANT 9.09 FEU/ug/m Invalid Interpretation Code 0.27-0.49 [facility] Comment on above: Result Comment: D-Di nghia ELEVATED (>0.49): Additional studies and clinicalassessments are indicated to conclude diagnosis of:Deep Vein Thrombosis (DVT) or Pulmonary Embolism (PE)CRITICAL VALUE CALLED TO ILYA GE08/19/24 0049 Gissel Villavicencio.RESULTS READ BACK BY SAME. Performed By: #### L 501.9520, L501.9985, L505.5000, L501.8100, L300.8000, L501.9100 ####[facility] [address] [place], [address] Echo Completeon 08-19-2024 Echo Complete Normal [facility] Echocardiogram study reportO rdered By: Hardik Cardenas on 08-19-2024 Study report [facility] Work Phone: Femur Min 2 Viewson 08-20-19 25 Femur Min 2 Views Normal [facility] Hemoglobin A1con 08-19-2024 HbA1c (Bld) [Mass fraction] 5.2 % Normal <=5.6 [facility] Comment on above: Result Comment: Norm al < 5.7 % Prediabetic 5.7 - 6.4 % Diabetic >or= 6.5 % Please note range changes. Performed By: #### L 501.9520, L501.9985, L505.5000, L501.8100, L300.8000, L501.9100 ####[facility] [address] [place], [address] L509.6001on 08-19-2024 CORTISOL 16.10 ug/dL Normal 6.02-18.40 [facility] Comment on above: Performed By: #### L 509.6004 ####[facility] [address] [place], [address] Lithiumon 08-19-2024 LI 0.82 mmol/L Normal 0.60-1.20 [facility] Comment on above: Order Comment: PER Mari GE,RN [facility] PT SHOULD HAVE GOT DONE BETWEEN [id number] Performed By: #### L 275.9016 ####[facility] [address] [place], [place], [address] No Panel InformationOrdered By: Jose Olvera on 08-19-2024 Urine Buprenorphine Qualitative Negative < 200 ng/mL [facility] Urine Oxycodone Screen Negative < 100 ng/mL [facility] Negative < 200 ng/mL [facility] Quantitative urine opiates m easurementOrdered By: Jose Olvera on 08-19-2024 Opiates Ql (U) Negative < 300 ng/mL [facility] RESPIRATORY PANEL MOLECULARo n 08-19-2024 RP PANEL Normal [facility] Comment on above: Performed By: #### M 100.638 ####[facility] [address] [place], [address] Respiratory pathogens detect ion panel by molecular detection methodOrdered By: Robert Andrea on 08-19-2024 Respiratory pathogens DNA and RNA panel KYLIE+probe (Resp) [facility] Screening urine fentanyl vy surementOrdered By: Jose Olvera on 08-19-2024 fentaNYL Screen Ql (U) Negative [facility] Serum or plasma cortisol vy surement (mass/volume)Ordered By: Robert Andrea on 08-19-2024 Cortisol [Mass/Vol] 16.10 ug/dL 6.02-18.40 [facility] Thyroid Stim Hormone (TSH)on 08-19-2024 TSH 1.040 uIU/mL Normal 0.300-4.200 [facility] Comment on above: Performed By: #### L 501.9520, L501.9985, L505.5000, L501.8100, L300.8000, L501.9100 ####[facility] [address] [place], [place], [address] Urine Drug Screen (VISTA)on 08-19-2024 AMPHETAMINES Negative Normal <1000 ng/mL [facility] Comment on above: Order Comment: U Performed By: #### L 505.5000 ####[facility] [address] [place], [address] BARBITIURATES Negative Normal < 200 ng/mL [facility] Comment on above: Order Comment: U Performed By: #### L 505.5000 ####[facility] [address] [place], [address] BENZODIAZIPINE Positive Normal < 200 ng/mL [facility] Comment on above: Order Comment: U Result Comment: If c onfirmation testing is needed, a separate order will berequired to send out testing to the reference laboratory. Performed By: #### L 505.5000 ####[facility] [address] [facility] [address] BUP Ur Drug Scr Negative Normal < 200 ng/mL [facility] Comment on above: Order Comment: U Performed By: #### L 505.5000 ####[facility] [address] [place] [address] COCAINE Negative Normal < 300 ng/mL [facility] Comment on above: Order Comment: U Performed By: #### L 505.5000 ####[facility] [address] [facility] [address] Fentanyl Negative Normal [facility] Comment on above: Order Comment: U Performed By: #### L 505.5000 ####[facility] [address] [place] [address] METHADONE Negative Normal < 300 ng/mL [facility] [facility] Comment on above: Order Comment: U Performed By: #### L 505.5000 ####[facility] [address] [facility] [address] OPIATES Negative Normal < 300 ng/mL [facility] Comment on above: Order Comment: U Performed By: #### L 505.5000 ####[facility] [address] [facility] [address] OXYCODONE Negative Normal < 100 ng/mL [facility] Comment on above: Order Comment: U Performed By: #### L 505.5000 ####[facility] [address] [place], [address] PCP Negative Normal < 25 ng/mL [facility] Comment on above: Order Comment: U Performed By: #### L 505.5000 ####[facility] [address] [place], [address] THC Negative Normal < 50 ng/mL [facility] Comment on above: Order Comment: U Performed By: #### L 505.5000 ####[facility] [address] [place], [address] Urine benzodiazepine levelOr dered By: Jose Olvera on 08-19-2024 Benzodiazepines Ql (U) Positive < 200 ng/mL [facility] Comment on above: If confirmation test ing is needed, a separate order will be required to send out testing to the reference laboratory. Urine cocaine levelOrdered B y: Jose Olvera on 08-19-2024 Cocaine Ql (U) Negative < 300 ng/mL [facility] Urine rfenu-7-ohvrdqrzkwazwd abinol (THC) measurementOrdered By: Jose Olvera on 08-19-2024 Cannabinoids Screen Ql (U) Negative < 50 ng/mL [facility] Urine phencyclidine (PCP) de tectionOrdered By: Jose Olvera on 08-19-2024 Phencyclidine Ql (U) Negative < 25 ng/mL [facility] Valproic Acid (Depakene) Lev miguelangel 08-19-2024 VALPROIC ACID 17 ug/mL Low 50-100 [facility] Comment on above: Result Comment: Valp roic Acid concentrations >100 ug/mL are potentiallytoxic. Performed By: #### L 501.9520, L501.9985, L505.5000, L501.8100, L300.8000, L501.9100 ####[facility] [address] [place], [address] Venous Duplex US - Roque Extre mon 08-19-2024 Venous Duplex US - Roque Extrem Normal [facility] Venous duplex ultrasound rep ortOrdered By: Tyler Zuleta on 08-19-2024 US Vein [facility] Other Phone: Vitamin B12on 08-19-2024 Cobalamin (Vitamin B12) [Mass/Vol] 620 pg/mL Normal 180-914 [facility] Comment on above: Performed By: #### L 503.0106 ####[facility] [address] [place] [place], [address] Vitamin B12 ser/plasOrdered By: Robert Andrea on 08-19-2024 Cobalamin (Vitamin B12) [Mass/Vol] 620 pg/mL 180-914 [facility] 12 Lead EKGon 08-18-2024 12 Lead EKG Normal [facility] Absolute lymphocyte countOrd ered By: Jose Olvera on 08-18-2024 Lymphocytes Auto (Unsp spec) [#/Vol] 0.85 10*3/uL 0.83-4.51 [facility] Absolute neutrophil countOrd ered By: Jose Olvera on 08-18-2024 Neutrophils (Bld) [#/Vol] 6.2 10*3/uL 2.0-7.7 [facility] Anion gap in Serum or Plasma Ordered By: Jose Olvera on 08-18-2024 Anion gap [Moles/Vol] 8 mmol/L 5-15 [facility] Assessment of wrist artery p atency prior to arterial punctureOrdered By: Jose Olvera on 08-18-2024 Arterial patency Wrist artery --pre arterial puncture Positive [facility] Automated lymphocyte count a s percentage of total leukocytesOrdered By: Jose Olvera on 08-18-2024 Lymphocytes/100 WBC Auto (Unsp spec) 11.0 % Low 19-41 [facility] BUN/creatinine ratioOrdered By: Jose Olvera on 08-18-2024 Urea nitrogen/Creatinine [Mass ratio] 18.2 mg/mg 10-20 [facility] Basophil percentageOrdered B y: Jose Olvera on 08-18-2024 Basophils/100 WBC (Bld) 0.1 % 0-1 [facility] Bilirubin Test strip Ql (U)O rdered By: Josenahum Olvera on 08-18-2024 Bilirubin Ql (U) Negative Negative [facility] Bilirubin, totalOrdered By: Jose Olvera on 08-18-2024 Bilirubin [Mass/Vol] 0.46 mg/dL 0.00-1.30 [facility] Blood Gases by CPSon 025 SHIRA TEST Positive Normal [facility] Comment on above: Performed By: #### L 9000.0800 ####[facility] [address] [place], [address] Base excess Calc (Bld) [Moles/Vol] 2 mmol/L Normal -2 to +2 [facility] Comment on above: Performed By: #### L 9000.0800 ####[facility] [address] [place], [address] Blood Gas Type ART Normal [facility] Comment on above: Performed By: #### L 9000.0800 ####[facility] [address] [place], [address] CO2 [Moles/Vol] 28 mmol/L Normal [facility] Comment on above: Performed By: #### L 9000.0800 ####[facility] [address] [place], [address] HCO3 (Bld) [Moles/Vol] 26.5 mmol/L High 22-26 [facility] Comment on above: Performed By: #### L 9000.0800 ####[facility] [address] [place], [address] Mode Not entered Normal [facility] Comment on above: Performed By: #### L 9000.0800 ####[facility] [address] [place], [address] O2 Delivery Dev Room Air Normal [facility] Comment on above: Performed By: #### L 9000.0800 ####[facility] [address] [place], [address] pCO2 40.8 mmHg Normal 35-45 [facility] Comment on above: Performed By: #### L 9000.0800 ####[facility] [address] [place], [address] pH (Bld) 7.42 [pH] Normal 7.35-7.45 [facility] Comment on above: Performed By: #### L 9000.0800 ####[facility] [address] [place], [address] PO2 68 mmHG Low 75-100 [facility] Comment on above: Performed By: #### L 9000.0800 ####[facility] [address] [place], [address] SITE L Radial Normal [facility] Comment on above: Performed By: #### L 9000.0800 ####[facility] [address] [place], [address] SO2 94 Low 95-99 [facility] Comment on above: Performed By: #### L 9000.0800 ####[facility] [address] [place], [address] Blood base excess determinat ionOrdered By: Josenahum Olvera on 08-18-2024 Base excess Calc (BldV) [Moles/Vol] 2 mmol/L -2-2 [facility] Blood bicarbonate measuremen tOrdered By: Jose Wade on 08-18-2024 HCO3 (Bld) [Moles/Vol] 26.5 mmol/L High 22-26 [facility] Blood cultureOrdered By: Josenahum Olvera on 08-18-2024 Bacteria identified Cx Nom (Bld) Meth. resistant Staph. aureus Abnormal [facility] Bacteria identified Cx Nom (Bld) No growth in 5 days. [facility] CBC W/Diff, Automatedon - Absolute Lymph 0.85 X10 3/uL Normal 0.83-4.51 [facility] Comment on above: Performed By: #### L 100.0100, L500.4050 ####[facility] [address] [place], [address] Absolute Neut 6.2 X10 3/uL Normal 2.0-7.7 [facility] Comment on above: Performed By: #### L 100.0100, L500.4050 ####[facility] [address] [place], [address] Basophils/100 WBC (Bld) 0.1 % Normal 0-1 [facility] Comment on above: Performed By: #### L 100.0100, L500.4050 ####[facility] [address] [place], [address] Eosinophils/100 WBC (Bld) 1.3 % Normal 0-5 [facility] Comment on above: Performed By: #### L 100.0100, L500.4050 ####[facility] [address] [place], [address] Erythrocyte distribution width (RBC) [Ratio] 12.3 % Normal 11.6-14.6 [facility] Comment on above: Performed By: #### L 100.0100, L500.4050 ####[facility] [address] [place], [address] Hematocrit (Bld) [Volume fraction] 29.7 % Low 40-54 [facility] Comment on above: Performed By: #### L 100.0100, L500.4050 ####[facility] [address] [place], [address] Hemoglobin (Bld) [Mass/Vol] 9.9 g/dL Low 13.0-16.5 [facility] Comment on above: Performed By: #### L 100.0100, L500.4050 ####[facility] [address] [place], [address] IG% 0.400 Normal 0.0-0.9 [facility] Comment on above: Result Comment: IG% - Immature Granulocytes (promyelocytes, myelocytes andmetamyelocytes) > 1% indicates that a LEFT SHIFT is Present. Performed By: #### L 100.0100, L500.4050 ####[facility] [address] [place], [address] Lymphocytes/100 WBC (Bld) 11.0 % Low 19-41 [facility] Comment on above: Performed By: #### L 100.0100, L500.4050 ####[facility] [address] [place], [address] MCH (RBC) [Entitic mass] 30.7 pg Normal 27.0-32.0 [facility] Comment on above: Performed By: #### L 100.0100, L500.4050 ####[facility] [address] [place], [address] MCHC (RBC) [Mass/Vol] 33.3 g/dL Normal 32-36 [facility] Comment on above: Performed By: #### L 100.0100, L500.4050 ####[facility] [address] [place], [address] MCV (RBC) [Entitic vol] 92.2 fL Normal 80-94 [facility] Comment on above: Performed By: #### L 100.0100, L500.4050 ####[facility] [address] [place], [address] Monocytes/100 WBC (Bld) 6.7 % Normal 0-10 [facility] Comment on above: Performed By: #### L 100.0100, L500.4050 ####[facility] [address] [place], [address] Neutrophils/100 WBC (Bld) 80.5 % High 47-70 [facility] Comment on above: Performed By: #### L 100.0100, L500.4050 ####[facility] [address] [place], [address] Nucleated RBC (Bld) [#/Vol] 0 10*3/uL Normal 0-5 [facility] Comment on above: Performed By: #### L 100.0100, L500.4050 ####[facility] [address] [place], [address] Platelet mean volume (Bld) [Entitic vol] 10.8 fL Normal 6.2-12.0 [facility] Comment on above: Performed By: #### L 100.0100, L500.4050 ####[facility] [address] [place], [address] Platelets (Bld) [#/Vol] 114 10*3/uL Low 150-450 [facility] Comment on above: Performed By: #### L 100.0100, L500.4050 ####[facility] [address] [place], [address] RBC (Bld) [#/Vol] 3.22 10*6/uL Low 4.6-6.2 [facility] Comment on above: Performed By: #### L 100.0100, L500.4050 ####[facility] [address] [place], [address] RDW SD 41.1 fl Normal 35.1-43.9 [facility] Comment on above: Performed By: #### L 100.0100, L500.4050 ####[facility] [address] [place], [address] WBC (Bld) [#/Vol] 7.7 10*3/uL Normal 4.4-11.0 [facility] Comment on above: Performed By: #### L 100.0100, L500.4050 ####[facility] [address] [place], [address] Carbon dioxide, total [Moles /volume] in Central venous bloodOrdered By: Jose Olvera on 08-18-2024 CO2 [Moles/Vol] 25.1 mmol/L 21.0-32.0 [facility] Chest 1 View (Portable)on Chest 1 View (Portable) Normal [facility] Chloride assayOrdered By: Hany Olevra on 08-18-2024 Chloride [Moles/Vol] 107 mmol/L 98-108 [facility] Comprehensive Metabolic Prof ilon 08-18-2024 Albumin [Mass/Vol] 3.9 g/dL Normal 3.4-4.8 [facility] Comment on above: Performed By: #### L 100.0100, L500.4050 ####[facility] [address] [place], [address] Albumin/Globulin [Mass ratio] 1.8 {ratio} Normal 0.9-2.4 [facility] Comment on above: Performed By: #### L 100.0100, L500.4050 ####[facility] [address] [place], [address] ALK PHOS 117 U/L Normal 40-129 [facility] Comment on above: Performed By: #### L 100.0100, L500.4050 ####[facility] [address] [place], [address] ALT [Catalytic activity/Vol] 10 U/L Normal <=46 [facility] Comment on above: Performed By: #### L 100.0100, L500.4050 ####[facility] [address] [place], [address] AST [Catalytic activity/Vol] 15 U/L Normal <=37 [facility] Comment on above: Performed By: #### L 100.0100, L500.4050 ####[facility] [address] [place], [address] Bilirubin [Mass/Vol] 0.46 mg/dL Normal 0.00-1.30 [facility] Comment on above: Performed By: #### L 100.0100, L500.4050 ####[facility] [address] [place], [address] BUN/CRE 18.2 RATIO Normal 10-20 [facility] Comment on above: Performed By: #### L 100.0100, L500.4050 ####[facility] [address] [place], [address] Calcium [Mass/Vol] 9.6 mg/dL Normal 7.6-11.0 [facility] Comment on above: Performed By: #### L 100.0100, L500.4050 ####[facility] [address] [place], [address] Chloride [Moles/Vol] 107 mmol/L Normal 98-108 [facility] Comment on above: Performed By: #### L 100.0100, L500.4050 ####[facility] [address] [place], [address] CO2 [Moles/Vol] 25.1 mmol/L Normal 21.0-32.0 [facility] Comment on above: Performed By: #### L 100.0100, L500.4050 ####[facility] [address] [place], [address] Creatinine [Mass/Vol] 1.19 mg/dL Normal 0.70-1.20 [facility] Comment on above: Performed By: #### L 100.0100, L500.4050 ####[facility] [address] [place], [address] ECRCL 61.56 ml/min Normal 50-250 [facility] Comment on above: Performed By: #### L 100.0100, L500.4050 ####[facility] [address] [place], [address] GAP 8 Normal 5-15 [facility] Comment on above: Performed By: #### L 100.0100, L500.4050 ####[facility] [address] [place], [address] GFR/1.73 sq M.predicted among non-blacks MDRD (S/P/Bld) [Vol rate/Area] 69 mL/min/{1.73_m2} Normal >60 [facility] Comment on above: Result Comment: mL/m in/1.73m2 CKD-EPI Creatinine Equation (2020) Performed By: #### L 100.0100, L500.4050 ####[facility] [address] [place], [address] Globulin (S) [Mass/Vol] 2.2 g/dL Normal 2.2-4.2 [facility] Comment on above: Performed By: #### L 100.0100, L500.4050 ####[facility] [address] [place], [address] Glucose [Mass/Vol] 137 mg/dL High 70-99 [facility] Comment on above: Performed By: #### L 100.0100, L500.4050 ####[facility] [address] [place], [address] Potassium [Moles/Vol] 4.1 mmol/L Normal 3.3-5.1 [facility] Comment on above: Performed By: #### L 100.0100, L500.4050 ####[facility] [address] [place], [address] Sodium [Moles/Vol] 139 mmol/L Normal 133-145 [facility] Comment on above: Performed By: #### L 100.0100, L500.4050 ####[facility] [address] [place], [address] T PROT 6.0 g/dL Normal 5.9-8.4 [facility] Comment on above: Performed By: #### L 100.0100, L500.4050 ####[facility] [address] [place], [address] Urea nitrogen [Mass/Vol] 22 mg/dL High 4-19 [facility] Comment on above: Performed By: #### L 100.0100, L500.4050 ####[facility] [address] [place], [address] Emergency Department Summary on 08-18-2024 Emergency Department Summary Normal [facility] Eosinophil percentageOrdered By: Jose Olvera on 08-18-2024 Eosinophils/100 WBC (Bld) 1.3 % 0-5 [facility] Erythrocyte distribution wid th ratioOrdered By: Josenahum Olvera on 08-18-2024 Erythrocyte distribution width (RBC) [Ratio] 12.3 % 11.6-14.6 [facility] Erythrocyte distribution wid th standard deviationOrdered By: Jose Olvera on 08-18-2024 Erythrocyte distribution width (RBC) [Ratio] 41.1 fl 35.1-43.9 [facility] Glomerular filtration rate ( GFR) estimation/1.73 sq m using serum, plasma, or whole bOrdered By: Jose Olvera on 08-18-2024 GFR/1.73 sq M.predicted among non-blacks MDRD (S/P/Bld) [Vol rate/Area] 69 mL/min/{1.73_m2} >60 [facility] Comment on above: mL/min/1.73m2 CKD-EP I Creatinine Equation (2020) H AND P Exam - Hospitaliston 08-18-2024 H&P Exam - Hospitalist Normal [facility] Hematocrit Auto (Bld) [Volum e fraction]Ordered By: Jose Olvera on 08-18-2024 Hematocrit (Bld) [Volume fraction] 29.7 % Low 40-54 [facility] Hemoglobin A1c percentageOrd ered By: Robert Andrea on 08-18-2024 HbA1c (Bld) [Mass fraction] 5.2 % <5.7 [facility] Comment on above: Normal < 5.7 % Predi abetic 5.7 - 6.4 % Diabetic >or= 6.5 % Please note range changes. Hemoglobin measurementOrdere d By: Jose Olvera on 08-18-2024 Hemoglobin (Bld) [Mass/Vol] 9.9 g/dL Low 13.0-16.5 [facility] Immature granulocytes/100 WB C Auto (Bld)Ordered By: Jose Olvera on 08-18-2024 Immature granulocytes/100 WBC (Bld) 0.400 % 0.0-0.9 [facility] Comment on above: IG% - Immature Granu locytes (promyelocytes, myelocytes and metamyelocytes) > 1% indicates that a LEFT SHIFT is Present. Ketones Test strip Ql (U)Ord ered By: Jose Olvera on 08-18-2024 Ketones Ql (U) 5 mg/dl High Negative [facility] Laboratory - Chemistry and C hemistry - challengeOrdered By: Jose Olvera on 08-18-2024 AST [Catalytic activity/Vol] 15 U/L <38 [facility] Lactic Acidon 08-18-2024 Lactate [Moles/Vol] 1.3 mmol/L Normal 0.0-2.0 [facility] Comment on above: Order Comment: Y Performed By: #### L 503.6005 ####[facility] [address] [place], [place], [address] Lactic acid measurementOrder ed By: Jose Olvera on 08-18-2024 Lactate [Moles/Vol] 1.3 mmol/L 0.0-2.0 [facility] MCV (mean corpuscular volume ) determinationOrdered By: Jose Olvera on 08-18-2024 MCV (RBC) [Entitic vol] 92.2 fL 80-94 [facility] Mean corpuscular hemoglobin (MCH) determinationOrdered By: Jose Olvera on 08-18-2024 MCH (RBC) [Entitic mass] 30.7 pg 27.0-32.0 [facility] Mean corpuscular hemoglobin concentration (MCHC) determinationOrdered By: Jose Olvera on 08-18-2024 MCHC (RBC) [Mass/Vol] 33.3 g/dL 32-36 [facility] Mean platelet volume determi nationOrdered By: Jose Olvera on 08-18-2024 Platelet mean volume (Bld) [Entitic vol] 10.8 fL 6.2-12.0 [facility] Measurement, pHOrdered By: Ysabel Olvera on 08-18-2024 pH (Unsp spec) 7.42 [pH] 7.35-7.45 [facility] Microscopic analysis of urin e for red blood cells (RBC)Ordered By: Jose Olvera on 08-18-2024 Microscopic analysis of urine for red blood cells (RBC) 0-5 SEEN /hpf 0-5 [facility] Monocyte percentageOrdered B y: Jose Olvera on 08-18-2024 Monocytes/100 WBC (Bld) 6.7 % 0-10 [facility] Mucus LM Ql (Urine sed)Order ed By: Jose Olvera on 08-18-2024 Mucus Ql (Urine sed) 0 SEEN /hpf [facility] Neutrophil percentageOrdered By: Jose Olvera on 08-18-2024 Neutrophils/100 WBC (Bld) 80.5 % High 47-70 [facility] Nitrite Test strip Ql (U)Ord ered By: Jose Olvera on 08-18-2024 Nitrite Ql (U) Negative Negative [facility] No Panel InformationOrdered By: Jose Olvera on 08-18-2024 Blood Gas Sample Site L Radial [facility] Blood Gas Specimen Type ART [facility] Blood Gas Vent Mode Not entered [facility] Oxygen Delivery Device Room Air [facility] ART [facility] L [facility] Not entered [facility] Room Air [facility] 15 U/L <38 [facility] Nucleated red blood cell per centageOrdered By: Jose Olvera on 08-18-2024 Nucleated RBC/100 WBC (Bld) [Ratio] 0 % 0-5 [facility] Platelet countOrdered By: Hany Olvera on 08-18-2024 Platelets (Bld) [#/Vol] 114 10*3/uL Low 150-450 [facility] Potassium measurement (mass/ volume)Ordered By: Jose Olvera on 08-18-2024 Potassium (Unsp spec) [Mass/Vol] 4.1 mmol/L 3.3-5.1 [facility] Protein Test strip Ql (U)Ord ered By: Jose Olvera on 08-18-2024 Protein Ql (U) 30 mg/dl High Negative [facility] RBC Auto (Bld) [#/Vol]Ordere d By: Jose Olvera on 08-18-2024 RBC (Bld) [#/Vol] 3.22 10*6/uL Low 4.6-6.2 [facility] Serum creatinine measurement (mass/volume)Ordered By: Jose Olvera on 08-18-2024 Creatinine [Mass/Vol] 1.19 mg/dL 0.70-1.20 [facility] Serum globulin measurementOr dered By: Jose Olvera on 08-18-2024 Globulin (S) [Mass/Vol] 2.2 g/dL 2.2-4.2 [facility] Serum glucose measurement (m ass/volume)Ordered By: Jose Olvera on 08-18-2024 Glucose [Mass/Vol] 137 mg/dL High 70-99 [facility] Serum or plasma alanine velasquez otransferase (ALT) measurementOrdered By: Jose Olvera on 08-18-2024 ALT [Catalytic activity/Vol] 10 U/L <47 [facility] Serum or plasma albumin kristie urement (mass/volume)Ordered By: Jose Olvera on 08-18-2024 Albumin [Mass/Vol] 3.9 g/dL 3.4-4.8 [facility] Serum or plasma albumin/glob ulin mass ratioOrdered By: Jose Olvera 08-18-2024 Albumin/Globulin [Mass ratio] 1.8 {ratio} 0.9-2.4 [facility] Serum or plasma alkaline steffany sphatase measurementOrdered By: Jose Olvera on 08-18-2024 ALP [Catalytic activity/Vol] 117 U/L 40-129 [facility] Serum or plasma calcium kristie urement (mass/volume)Ordered By: Jose Olvera on 08-18-2024 Calcium [Mass/Vol] 9.6 mg/dL 7.6-11.0 [facility] Serum or plasma ethanol kristie urement (mass/volume)Ordered By: Robert Andrea on 08-18-2024 Ethanol [Mass/Vol] mg/dL <10.1 [facility] Comment on above: This test is for med ical purposes only. The legal definition of intoxication varies according to local law. Serum or plasma urea nitroge n measurement (mass/volume)Ordered By: Jose Olvera on 08-18-2024 Urea nitrogen [Mass/Vol] 22 mg/dL High 4-19 [facility] Serum or plasma valproate me asurement (mass/volume)Ordered By: Robert Andrea on 08-18-2024 Valproate [Mass/Vol] 17 ug/mL Low 50-100 [facility] Comment on above: Valproic Acid concen trations >100 ug/mL are potentially toxic. Sodium levelOrdered By: Jose Olvera on 08-18-2024 Sodium [Moles/Vol] 139 mmol/L 133-145 [facility] Squamous epithelial cells de tection in urine sediment by light microscopyOrdered By: Jose Olvera on 08-18-2024 Epithelial cells.squamous LM Ql (Urine sed) 0 SEEN /hpf 0-5 [facility] TSH DL <= 0.005 mIU/L QnOrde red By: Robert Andrea on 08-18-2024 TSH Qn 1.040 uIU/mL 0.300-4.200 [facility] Total carbon dioxide measure mentOrdered By: Jose Olvera on 08-18-2024 CO2 [Moles/Vol] 28 mmol/L [facility] Total proteinOrdered By: Josenahum Olvera on 08-18-2024 Protein [Mass/Vol] 6.0 g/dL 5.9-8.4 [facility] Urinalysis, Completeon 08-18 RBC 0-5 SEEN Normal 0-5 [facility] Comment on above: Order Comment: [facility] SPECIMEN Performed By: #### L 400.0001, M100.2200 ####[facility] [address] [place], [address] WBC 50-100 SEEN Normal 0-5 [facility] Comment on above: Order Comment: DOROTHEA TER SPECIMEN Performed By: #### L 400.0001, M100.0 ####[facility] [address] [place], [address] BACTERIA 0 SEEN Normal None Seen [facility] Comment on above: Order Comment: DOROTHEA TER SPECIMEN Performed By: #### L 400.0001, M100.0 ####[facility] [address] [place], [address] EPI,SQUAMOUS 0 SEEN Normal 0-5 [facility] Comment on above: Order Comment: DOROTHEA TER SPECIMEN Performed By: #### L 400.0001, M100.0 ####[facility] [address] [place], [address] Mucus Ql (Urine sed) 0 SEEN Normal [facility] Comment on above: Order Comment: DOROTHEA TER SPECIMEN Performed By: #### L 400.0001, M100.0 ####[facility] [address] [place], [address] Urine Drug Screen (VISTA)on 08-18-2024 AMPHETAMINES Normal <1000 ng/mL [facility] Comment on above: Result Comment: NO U RINE IN LAB- REORDERING Performed By: #### L 501.9520, L501.9985, L505.5000, L501.8100, L300.8000, L501.9100 ####[facility] [address] [place], [address] BARBITIURATES Normal < 200 ng/mL [facility] Comment on above: Result Comment: NO U RINE IN LAB- REORDERING Performed By: #### L 501.9520, L501.9985, L505.5000, L501.8100, L300.8000, L501.9100 ####[facility] [address] [place], [address] BENZODIAZIPINE Normal < 200 ng/mL [facility] Comment on above: Result Comment: NO U RINE IN LAB- REORDERING Performed By: #### L 501.9520, L501.9985, L505.5000, L501.8100, L300.8000, L501.9100 ####[facility] [address] [place], [address] BUP Ur Drug Scr Normal < 200 ng/mL [facility] Comment on above: Result Comment: NO U RINE IN LAB- REORDERING Performed By: #### L 501.9520, L501.9985, L505.5000, L501.8100, L300.8000, L501.9100 ####[facility] [address] [place], [address] COCAINE Normal < 300 ng/mL [facility] Comment on above: Result Comment: NO U RINE IN LAB- REORDERING Performed By: #### L 501.9520, L501.9985, L505.5000, L501.8100, L300.8000, L501.9100 ####[facility] [address] [place], [address] Fentanyl Normal [facility] Comment on above: Result Comment: NO U RINE IN LAB- REORDERING Performed By: #### L 501.9520, L501.9985, L505.5000, L501.8100, L300.8000, L501.9100 ####[facility] [address] [place], [address] METHADONE Normal < 300 ng/mL [facility] Comment on above: Result Comment: NO U RINE IN LAB- REORDERING Performed By: #### L 501.9520, L501.9985, L505.5000, L501.8100, L300.8000, L501.9100 ####[facility] [address] [place], [place], [address] OPIATES Normal < 300 ng/mL [facility] Comment on above: Result Comment: NO U RINE IN LAB- REORDERING Performed By: #### L 501.9520, L501.9985, L505.5000, L501.8100, L300.8000, L501.9100 ####[facility] [address] [place], [address] OXYCODONE Normal < 100 ng/mL [facility] Comment on above: Result Comment: NO U RINE IN LAB- REORDERING Performed By: #### L 501.9520, L501.9985, L505.5000, L501.8100, L300.8000, L501.9100 ####[facility] [address] [place], [address] PCP Normal < 25 ng/mL [facility] Comment on above: Result Comment: NO U RINE IN LAB- REORDERING Performed By: #### L 501.9520, L501.9985, L505.5000, L501.8100, L300.8000, L501.9100 ####[facility] [address] [place], [address] THC Normal < 50 ng/mL [facility] Comment on above: Result Comment: NO U RINE IN LAB- REORDERING Performed By: #### L 501.9520, L501.9985, L505.5000, L501.8100, L300.8000, L501.9100 ####[facility] [address] [facility] [address] Urine clarityOrdered By: Jose Olvera on 08-18-2024 Clarity (U) Sl. Cloudy Clear [facility] Urine color determinationOrd ered By: Jose Olvera on 08-18-2024 Color (U) Yellow Yellow [facility] Urine cultureOrdered By: Jose Olvera on 08-18-2024 Bacteria identified Cx Nom (U) Corynebacterium jeikeium Abnormal [facility] Bacteria identified Cx Nom (U) Aerococcus urinae Abnormal [facility] Bacteria identified Cx Nom (U) Enterococcus raffinosus Abnormal [facility] Urine glucose detectionOrder ed By: Jose Olvera on 08-18-2024 Glucose Ql (U) Normal mg/dl Normal [facility] Urine leukocyte esterase det ection by dipstickOrdered By: Jose Olvera on 08-18-2024 Leukocyte esterase Test strip Ql (U) 500 /ul High Negative [facility] Urine pHOrdered By: Jose sidhu on 08-18-2024 pH (U) 6.0 [pH] 5.0 - 8.0 [facility] Urine sediment bacteria coun t by microscopy (number/high power field)Ordered By: Jose Olvera on 08-18-2024 Bacteria LM.HPF (Urine sed) [#/Area] 0 /[HPF] None Seen [facility] Urine specific gravity measu rementOrdered By: Josenahum Olvera on 08-18-2024 Specific gravity (U) [Rel density] 1.015 1.002-1.030 [facility] Urine urobilinogen measureme ntOrdered By: Jose Olvera on 08-18-2024 Urobilinogen Ql (U) 1 mg/dl High Normal [facility] White blood cell (WBC) count Ordered By: Jose Olvera on 08-18-2024 WBC (Bld) [#/Vol] 7.7 10*3/uL 4.4-11.0 [facility] White blood cell countOrdere d By: Jose Olvera on 08-18-2024 White blood cell count 50-100 SEEN /hpf 0-[address] [facility] [address] ABDOMEN PELVIS W IV CONTR [place] 03-26-2024 CT ABDOMEN PELVIS W IV CONTRAST Interpreted By: Masoud De Jesus, STUDY: CT ABDOMEN PELVIS W IV CONTRAST; 03/26/2024 4:22 pm INDICATION: Signs/Symptoms:hematuri a. ,R31.0 Gross hematuria COMPARISON: CT urography dated 10/24/2021. ACCESSION NUMBER(S): [id number] ORDERING CLINICIAN: NARINDER CHRISTENSEN TECHNIQUE: CT of the abdomen and pelvis [...] to the level of the ureterovesical junction, lsnm-iibvvax-vexf-right . No nephroureterolithiasis bilaterally. PELVIS: BLADDER: The [...] are small bilateral fat containing inguinal hernias, cmfv-ocqxies-fumz-right . There is a tiny fat containing [...] to the level of the ureterovesical junction, pmlp-hprdumw-sfcj-right . Findings are likely secondary to back pressure from the markedly distended urinary bladder. 5. Remaining chronic and incidental findings as described above. MACRO: Critical Finding: See findings. Notification was initiated on 03/27/2024 at 11:[address] Masoud De Jesus. (-YCF-) Instructions: Signed by: Masoud De Jesus 03/27/2024 11:30 AM Dictation workstation: [id number] [facility] Absolute lymphocyte countOrd ered By: Kirsty Rodarte on 05-14-2023 Lymphocytes Auto (Unsp spec) [#/Vol] 0.92 10*3/uL 0.83-4.51 [facility] Automated lymphocyte count a s percentage of total leukocytesOrdered By: Kirsty Rodarte on 05-14-2023 Lymphocytes/100 WBC Auto (Unsp spec) 25.7 % 19-41 [facility] Basophil percentageOrdered B y: Kirsty Rodarte on 05-14-2023 Basophil percentage 3.4 mg/dL 2.5-4.9 [facility] Basophils/100 WBC (Bld) 0.0 % 0-1 [facility] Bilirubin [Mass/Vol] 0.30 mg/dL 0.20-1.00 [facility] Comment on above: For patients on eltr ombopag therapy, use of Dimension [place] TBIL is not recommended. Chloride [Moles/Vol] 112 mmol/L 98-107 [facility] Eosinophils/100 WBC (Bld) 0.0 % 0-5 [facility] Glucose [Mass/Vol] 106 mg/dL 74-106 [facility] Comment on above: Fasting Glucose resu lt from 100 to 125 mg/dL suggests IMPAIRED HOMEOSTASIS per A.D.A. criteria. Hemoglobin (Bld) [Mass/Vol] 9.4 g/dL 13.0-16.5 [facility] Monocytes/100 WBC (Bld) 5.3 % 0-10 [facility] Neutrophils (Bld) [#/Vol] 2.5 10*3/uL 2.0-7.7 [facility] Neutrophils/100 WBC (Bld) 68.7 % 47-70 [facility] Potassium [Moles/Vol] 4.2 mmol/L 3.5-5.1 [facility] Protein [Mass/Vol] 5.1 g/dL 6.4-8.2 [facility] Sodium [Moles/Vol] 144 mmol/L 136-145 [facility] WBC (Bld) [#/Vol] 3.6 10*3/uL 4.4-11.0 [facility] Blood manual differential co mment interpretation (narrative result)Ordered By: Kirsty Rodarte on 05-14-2023 Manual differential comment Christ (Bld) [Interp] See comment [facility] Comment on above: PANCYTOPENIA Blood platelet adequacy dete ction by light microscopyOrdered By: Kirsty Rodarte on 05-14-2023 Platelets LM Ql (Bld) SLT DEC ADEQ [facility] Determination of erythrocyte mean corpuscular volume (MCV)Ordered By: Kirsty Rodarte on 05-14-2023 MCV (RBC) [Entitic vol] 92.6 fL 80-94 [facility] Erythrocyte distribution wid th ratioOrdered By: Kirsty Rodarte on 05-14-2023 Erythrocyte distribution width (RBC) [Ratio] 12.1 % 11.6-14.6 [facility] Erythrocyte distribution wid th standard deviationOrdered By: Kirsty Rodarte on 05-14-2023 Erythrocyte distribution width (RBC) [Entitic vol] 41.0 fL 35.1-43.9 [facility] Hematocrit Auto (Bld) [Volum e fraction]Ordered By: Kirsty Rodarte on 05-14-2023 Hematocrit (Bld) [Volume fraction] 28.8 % 40-54 [facility] Immature granulocytes/100 WB C Auto (Bld)Ordered By: Kirsty Rodarte on 05-14-2023 Immature granulocytes/100 WBC (Bld) 0.300 % 0.0-0.9 [facility] Comment on above: IG% - Immature Granu locytes (promyelocytes, myelocytes and metamyelocytes) > 1% indicates that a LEFT SHIFT is Present. Laboratory - Chemistry and C hemistry - challengeOrdered By: Kirsty Rodarte on 05-14-2023 Albumin/Globulin [Mass ratio] 0.9 {ratio} 0.9-2.4 [facility] ALP [Catalytic activity/Vol] 48 U/L 45-117 [facility] ALT [Catalytic activity/Vol] 13 U/L 16-61 [facility] CO2 [Moles/Vol] 27.0 mmol/L 21.0-32.0 [facility] Globulin (S) [Mass/Vol] 2.7 g/dL 2.2-4.2 [facility] Magnesium [Mass/Vol] 2.7 mg/dL 1.6-2.6 [facility] Urea nitrogen/Creatinine [Mass ratio] 24.8 mg/mg 10-20 [facility] Laboratory - Hematology and Cell countsOrdered By: Kirsty Rodarte on 05-14-2023 MCH (RBC) [Entitic mass] 30.2 pg 27.0-32.0 [facility] MCHC (RBC) [Mass/Vol] 32.6 g/dL 32-36 [facility] Nucleated RBC/100 WBC (Bld) [Ratio] 0 % 0-5 [facility] Platelet mean volume (Bld) [Entitic vol] 10.6 fL 6.2-12.0 [facility] Platelets (Bld) [#/Vol] 92 10*3/uL 150-450 [facility] No Panel InformationOrdered By: Kirsty Rodarte on 05-14-2023 Estimated Creatinine Clearance Calc 67.78 ml/min [facility] Estimated GFR (MDRD) Amer 84 mL/min >60 [facility] Comment on above: GFR Calc Estimated GFR (MDRD) Non-Af Amer 70 mL/min >60 [facility] Comment on above: Non- GFR Calc RBC Auto (Bld) [#/Vol]Ordere d By: Kirsty Rodarte on 05-14-2023 RBC (Bld) [#/Vol] 3.11 10*6/uL 4.6-6.2 [facility] Serum or plasma calcium kristie urement (mass/volume)Ordered By: Kirsty Rodarte on 05-14-2023 Calcium [Mass/Vol] 8.4 mg/dL 8.5-10.1 [facility] Serum or plasma creatinine m easurement (mass/volume)Ordered By: Kirsty Rodarte on 05-14-2023 Creatinine [Mass/Vol] 1.13 mg/dL 0.70-1.30 [facility] Comment on above: The validity of the calculated GFR & GFRAA in patients over 70 years has not been determined. Clinical correlation is essential. Serum or plasma urea nitroge n measurement (mass/volume)Ordered By: Kirsty Rodarte on 05-14-2023 Urea nitrogen [Mass/Vol] 28 mg/dL 7-18 [facility] Thin prep Papanicolaou smear with manual screeningOrdered By: Kirsty Rodarte on 05-14-2023 Thin prep Papanicolaou smear with manual screening 2.4 g/dL 3.2-5.0 [facility] Thin prep Papanicolaou smear with manual screening 18 U/L 15-37 [facility] Thin prep Papanicolaou smear with manual screening 5 5-15 [facility] Base excessOrdered By: Brigido Rodarte on 05-13-2023 Base excess Calc (BldV) [Moles/Vol] 0 mmol/L -2-2 [facility] Basophil percentageOrdered B y: Kirsty Rodarte on 05-13-2023 Ammonia (P) [Moles/Vol] 21.0 umol/L 11-32 [facility] Basophil percentage 25 mmol/L [facility] Basophils/100 WBC (Bld) 90 % 95-99 [facility] Measurement, pHOrdered By: Marbella Rodarte on 05-13-2023 pH (Unsp spec) 7.43 [pH] 7.35-7.45 [facility] No Panel InformationOrdered By: Kirsty Rodarte on 05-13-2023 Arterial Blood Partial Pressure CO2 36.0 mmHg 35-45 [facility] Arterial Blood Partial Pressure O2 56 mmHG 75-100 [facility] Blood Gas Bicarbonate Actual 23.9 mmol/L 22-26 [facility] Blood Gas Oxygen Percent 4.0 [facility] Blood Gas Sample Site L Brach [facility] Blood Gas Specimen Type ART [facility] Blood Gas Vent Mode Not entered [facility] Oxygen Delivery Device Not entered [facility] No Panel InformationOrdered By: Robert Barr on 05-13-2023 Reactive Lymphocytes 1+ [facility] Thin prep Papanicolaou smear with manual screeningOrdered By: Kirsty Rodarte on 05-13-2023 Thin prep Papanicolaou smear with manual screening 120 mg/dL 74-106 [facility] Comment on above: MANAGEMENT OF PATIEN T CARE PER NURSING PROTOCOL Laboratory - Chemistry and C hemistry - challengeOrdered By: Kirsty Rodarte on 05-12-2023 Natriuretic peptide B (Bld) [Mass/Vol] 171.0 pg/mL 0-100 [facility] Absolute lymphocyte countOrd ered By: Jose Olvera on 05-10-2023 Lymphocytes Auto (Unsp spec) [#/Vol] 0.74 10*3/uL 0.83-4.51 [facility] Automated lymphocyte count a s percentage of total leukocytesOrdered By: Jose Olvera on 05-10-2023 Lymphocytes/100 WBC Auto (Unsp spec) 24.7 % 19-41 [facility] Basophil percentageOrdered B y: Jose Olvera on 05-10-2023 Lactate [Moles/Vol] 0.6 mmol/L 0.4-2.0 [facility] Basophils/100 WBC (Bld) 0.3 % 0-1 [facility] Bilirubin [Mass/Vol] 0.30 mg/dL 0.20-1.00 [facility] Comment on above: For patients on eltr ombopag therapy, use of Dimension [place] TBIL is not recommended. Chloride [Moles/Vol] 107 mmol/L 98-107 [facility] Eosinophils/100 WBC (Bld) 0.0 % 0-5 [facility] Glucose [Mass/Vol] 99 mg/dL 74-106 [facility] Hemoglobin (Bld) [Mass/Vol] 9.9 g/dL 13.0-16.5 [facility] Monocytes/100 WBC (Bld) 9.7 % 0-10 [facility] Neutrophils (Bld) [#/Vol] 2.0 10*3/uL 2.0-7.7 [facility] Neutrophils/100 WBC (Bld) 65.0 % 47-70 [facility] Potassium [Moles/Vol] 4.1 mmol/L 3.5-5.1 [facility] Protein [Mass/Vol] 6.2 g/dL 6.4-8.2 [facility] Sodium [Moles/Vol] 139 mmol/L 136-145 [facility] WBC (Bld) [#/Vol] 3.0 10*3/uL 4.4-11.0 [facility] Blood platelet adequacy dete ction by light microscopyOrdered By: Jose Olvera on 05-10-2023 Platelets LM Ql (Bld) SLT DEC ADEQ [facility] Determination of erythrocyte mean corpuscular volume (MCV)Ordered By: Jose Olvera on 05-10-2023 MCV (RBC) [Entitic vol] 94.2 fL 80-94 [facility] Erythrocyte distribution wid th ratioOrdered By: Josenahum Olvera on 05-10-2023 Erythrocyte distribution width (RBC) [Ratio] 12.5 % 11.6-14.6 [facility] Erythrocyte distribution wid th standard deviationOrdered By: [facility] 05-[facility]-2023 Erythrocyte distribution width (RBC) [Entitic vol] 43.1 fL 35.1-43.9 [facility] Hematocrit Auto (Bld) [Volum e fraction]Ordered By: Josenahum Olvera on 05-10-2023 Hematocrit (Bld) [Volume fraction] 31.1 % 40-54 [facility] Immature granulocytes/100 WB C Auto (Bld)Ordered By: Jose Olvera on 05-10-2023 Immature granulocytes/100 WBC (Bld) 0.300 % 0.0-0.9 [facility] Comment on above: IG% - Immature Granu locytes (promyelocytes, myelocytes and metamyelocytes) > 1% indicates that a LEFT SHIFT is Present. Laboratory - Chemistry and C hemistry - challengeOrdered By: Josenahum Olvera on 05-10-2023 Albumin/Globulin [Mass ratio] 1.0 {ratio} 0.9-2.4 [facility] ALP [Catalytic activity/Vol] 53 U/L 45-117 [facility] ALT [Catalytic activity/Vol] 18 U/L 16-61 [facility] CO2 [Moles/Vol] 29.0 mmol/L 21.0-32.0 [facility] Globulin (S) [Mass/Vol] 3.1 g/dL 2.2-4.2 [facility] Urea nitrogen/Creatinine [Mass ratio] 15.6 mg/mg 10-20 [facility] Laboratory - Hematology and Cell countsOrdered By: Josenahum Olvera on 05-10-2023 MCH (RBC) [Entitic mass] 30.0 pg 27.0-32.0 [facility] MCHC (RBC) [Mass/Vol] 31.8 g/dL 32-36 [facility] Nucleated RBC/100 WBC (Bld) [Ratio] 0 % 0-5 [facility] Platelet mean volume (Bld) [Entitic vol] 10.2 fL 6.2-12.0 [facility] Platelets (Bld) [#/Vol] 88 10*3/uL 150-450 [facility] Laboratory - Microbiology an d Antimicrobial susceptibilityOrdered By: Josenahum Olvera on 05-10-2023 SARS-CoV-2 (COVID-19) RNA KYLIE+probe Ql (Unsp spec) Influenzae A [facility] SARS-CoV-2 (COVID-19) RNA KYLIE+probe Ql (Unsp spec) Influenzae A [facility] No Panel InformationOrdered By: Josenahum Olvera on 05-10-2023 Estimated GFR (MDRD) Amer 69 mL/min >60 [facility] Comment on above: GFR Calc Estimated GFR (MDRD) Non-Af Amer 57 mL/min >60 [facility] Comment on above: Non- GFR Calc Troponin I High Sensitivity 9 pg/mL 3.0-78.0 [facility] Comment on above: Please Note: New Shanita t Units and Gender Specific Reference Ranges. For more information see Policy Stat Procedure [place] High Sensitivity Troponin (TNIH) and attachments. RBC Auto (Bld) [#/Vol]Ordere d By: Jose Olvera on 05-10-2023 RBC (Bld) [#/Vol] 3.30 10*6/uL 4.6-6.2 [facility] Serum or plasma calcium kristie urement (mass/volume)Ordered By: Jose Olvera on 05-10-2023 Calcium [Mass/Vol] 9.2 mg/dL 8.5-10.1 [facility] Serum or plasma creatinine m easurement (mass/volume)Ordered By: Josenahum Olvera on 05-10-2023 Creatinine [Mass/Vol] 1.35 mg/dL 0.70-1.30 [facility] Comment on above: The validity of the calculated GFR & GFRAA in patients over 70 years has not been determined. Clinical correlation is essential. Serum or plasma urea nitroge n measurement (mass/volume)Ordered By: Jose Olvera on 05-10-2023 Urea nitrogen [Mass/Vol] 21 mg/dL 7-18 [facility] Serum procalcitonin measurem entOrdered By: Roxanne More on 05-10-2023 Procalcitonin [Mass/Vol] 0.10 ng/mL 0.00-0.09 [facility] Comment on above: A procalcitonin (PCT [...] smear with manual screening 3.1 g/dL 3.2-5.0 [facility] Thin prep Papanicolaou smear with manual screening 19 U/L 15-37 [facility] Thin prep Papanicolaou smear with manual screening 3 5-15 [facility] Office Visit (Urology)on Follow-up visit Diagnoses/Problems [...] Oral Packet Lipitor 40 MG Oral Tablet [place] Carbonate 300 MG Oral Tablet Melatonin 3 MG Oral Tablet Milk of Magnesia 400 MG/5ML Oral Suspension MiraLax 17 GM Oral Packet Mylanta 200-200-20 MG/5ML SUSP Nicorette Mini 2 MG Mouth/Throat Lozenge Paxil 20 MG Oral Tablet Tamsulosin HCl - 0.4 MG Oral Capsule Tylenol 325 MG Oral Capsule Vitamin D TABS Zinc TABS Vitals Vital Signs Recorded: [id number] 09:12AM Heart Vulh070 Fsqffbin989 Dnuzxnvmn49 Fgfmdt677 lb 6 oz BMI Xaowdrfexe47.65 kg/m2 BSA Calculated1.83 Tobacco Usea) Yes Patient [...] normal Signatures Electronically signed by : Narinder Christensen II, MD; Jul 03 2022 9:31AM EST (Author) Normal [employer] Tobacco Screening.on 023 Fall risk assessment a) No falls within the last year AG-Jykjllo[facility]L [employer] Work Phone: Tobacco use status CPHS a) Yes M P-Urology-A [employer] Work Phone: Tobacco Screening. Yes MP-Uro logy-A Room 21 Media Phone: Office Visit (Urology)on Follow-up visit Diagnoses/Problems [...] Oral Packet Lipitor 40 MG Oral Tablet [place] Carbonate 300 MG Oral Tablet Melatonin 3 MG Oral Tablet Milk of Magnesia 400 MG/5ML Oral Suspension MiraLax 17 GM Oral Packet Mylanta 200-200-20 MG/5ML SUSP [place] Mini 2 MG Mouth/Throat Lozenge Paxil 20 MG Oral Tablet Tamsulosin HCl - 0.4 MG Oral Capsule Tylenol 325 MG Oral Capsule Vitamin D TABS Zinc TABS Vitals Vital Signs Recorded: 02Jan2022 08:18AM Heart Wxph738 Iqtruaov092 Xxmzjeccm96 Kjphas332 lb BMI Nvjpclxunm39.75 kg/m2 BSA Calculated1.83 Tobacco Usea) Yes Patient [...] deferred Signatures Electronically signed by : Narinder Christensen II, MD; Jan 02 2022 8:29AM EST (Author) Normal [employer] CT UROGRAPHY with 3D VOLUME RENDERED IMAGINGon 10-24-2021 CT UROGRAPHY with 3D VOLUME RENDERED IMAGING Patient Name: NANDO OCHOA STUDY: CT UROGRAPHY WITH AND WITHOUT CONTRAST; 10/24/2021 10:09 am INDICATION: GROSS HEMATURIA R31.0: Gross hematuria. COMPARISON: None. ACCESSION NUMBER(S): [id number] ORDERING CLINICIAN: NARINDER CHRISTENSEN TECHNIQUE: CT of the abdomen and pelvis [...] 4. Ultrasound (more content not included)... Normal [facility] CT Urography with 3D Volume Rendered Imagingon 10-24-2021 CT Urography with 3D Volume Rendered Imaging Normal MP-Urolo gy-R [facility] 232 DO Work Phone: Office Visit (Urology)on Follow-up visit Diagnoses/Problems Assessed Gross hematuria (599.71) (R31.0) Orders Gross hematuria Follow-up visit in 2 weeks Outpatient Follow-up AFTER CT AND LABS Status: Hold For - Scheduling,Retrospectiv e Authorization Requested for: 10Oct2021 Ordered Stat;For: Gross hematuria; Ordered By: Narinder Christensen II Performed: Due: 08Jan2022; Last Updated By: Patricia Rawls; 10/10/2021 11:09:29 AM Blood Urea Nitrogen, Serum; Status:Active - Retrospective Authorization; Requested for:[id number]; Perform:Lab Services - Lab To Draw (Blood Test); Due:08Jan2022; Last Updated By:Patricia Rawls; 10/10/2021 11:09:29 AM;Ordered; For:Gross hematuria; Ordered By:Narinder Christensen II; Creatinine, Serum; Status:Active - Retrospective Authorization; Requested for:10Oct2021; Perform:Lab Services - Lab To Draw (Blood Test); Due:08Jan2022; Last Updated By:Patricia Rawls; 10/10/2021 11:09:29 AM;Ordered; For:Gross hematuria; Ordered By:Narinder Christensen II; CT Urography with 3D Volume Rendered Imaging; Status:Hold For - Scheduling,Retrospectiv e Authorization; Requested for:10Oct2021; Perform:[facility] Imaging; Due:[id number]; Last Updated By:Patricia Rawls; 10/10/2021 11:09:29 AM;Ordered; For:Gross hematuria; Ordered By:Narinder Christensen II; Patient taking Metformin or Derivatives? : [...] Oral Packet Lipitor 40 MG Oral Tablet [place] Carbonate 300 MG Oral Tablet Melatonin 3 [...] findings of the procedure, please see Dr. Christensen's remarks below Scope 102 Used, Cipro 250mg pobid times 3 days given PSA 0.49 08/22 0.8 08/2020 NO MASS. SIGNIFICANT TRABECULATION. NO MEDIAN LOBE PVR ELEVATED F/U AFTER CT TO EVALUATE RENAL MASS Signatures Electronically signed by : Narinder Christensen II, MD; Oct 10 2021 11:24AM EST (Author) [employer] Tobacco Screening.on 022 Adult depression screening assessment No MP-Urology- R Starriser 232 DO Work Phone: Fall risk assessment a) No falls within the last year JL-Ssyafdm-S Starriser 232 DO Work Phone: Tobacco use status CPHS a) Yes M P-Urology-R Starriser 232 DO Work Phone: Tobacco Screening. Yes MP-Uro logy-R Starriser 232 DO Work Phone: Radiologyon 09-07-2021 US Kidney - bilateral Normal MP- Urology-A land Work Phone: US RENAL BILATon 09-07-2021 US RENAL BILAT Patient Name: NANDO OCHOA STUDY: US RENAL BILAT; 09/07/2021 10:28 am INDICATION: hematuria R31.0: Gross hematuria. COMPARISON: None. ACCESSION NUMBER(S): [id number] ORDERING CLINICIAN: NARINDER CHRISTENSEN TECHNIQUE: Multiple images of the kidneys were [...] excluded. Electronically signed by: NARINDER HILL MD [facility] percentageon 2021 Ammonia (P) [Moles/Vol] 42.0 umol/L [facility] Work Phone: Office Visit (Urology)on Follow-up [...] Oral Packet Lipitor 40 MG Oral Tablet [place] Carbonate 300 MG Oral Tablet Melatonin 3 MG Oral Tablet Milk of Magnesia 400 MG/5ML Oral Suspension MiraLax 17 GM Oral Packet Mylanta 200-200-20 MG/5ML SUSP Nicorette Mini 2 MG Mouth/Throat Lozenge Paxil 20 MG Oral Tablet Tamsulosin HCl - 0.4 MG Oral Capsule Tylenol 325 MG Oral Capsule Vitamin D TABS Zinc TABS Vitals Vital Signs Recorded: 15Aug2021 09:28AM Heart Rrlp580 Wpkofnwb46 Lpfpftkmi71 Height5 ft 7 in Nflhhk320 lb 8 oz BMI Dgyuhsxeox77.82 kg/m2 BSA Calculated1.83 Tobacco Useb) No Fall [...] normal Signatures Electronically signed by : Narinder Christensen II, MD; Aug 15 2021 9:39AM EST (Author) [employer] Tobacco Screening.on 022 Fall risk assessment a) No falls within the last year KX-Jjaeojx-O [employer] Work Phone: Tobacco use status [facility] b) No M P-Urology-A [employer] Work Phone: Basophil percentageon 2021 Ammonia (P) [Moles/Vol] 53.0 umol/L [facility] Work Phone: Tobacco Screening.on Fall risk assessment a) No falls within the last year EZ-Wztnzdk-E [employer] Work Phone: Tobacco use status [facility] b) No M P-Urology-A [employer] Work Phone: CNOVon 03-27-2017 CNOV Office Visit (UROLWS) NANDO BOOTH ([id number]) 1960 [facility] Time Provider Department03/27/17 10:00 AM BRANDEN SHAH) UROLWS During your visit today, we recorded the following information about you: Blood pressure Weight 110/70 67.7 kgDI [place] 03/27/2017 11:06 AM Signed[facility]rological and Kidney InstitutePATIENT INFO:Nando Ochoa HISTORY= ========CHIEF COMPLAINT: ANDquot;Hydrocele ANDquot;HPI:This is a [...] larger. may use ibuprofen for inflammatory type pain.Aide described that the patient has [...] pad at nightANDgt; Annual appointment w/ JUDI Coleman, MICHELE, DI-C after U/S in July 2017JUDI Bradford MT, PA-CElectronically signedReferring Provider: ASHLEY DICKEY [[id number]]Allergies As of Date: 03/27/2017 Noted Allergy ReactionBACTRIM (SULFAMETHOXAZOLE-TRIME TH*08/22/2016 16 - UnknownCIPROFLOXACIN 08/22/2016 16 - UnknownCODEINE 08/22/2016 16 - UnknownPENICILLINS 08/22/2016 16 - UnknownDate Reviewed: 03/27/2017Reviewed by: America Castaneda - Fully AssessedReason for Visit: Follow Up [171] testicular swelling [Other]Primary Visit Diagnosis:Hydrocele, unspecified hydrocele type [N43.3] Other Visit Diagnosis:Testicular swelling [N50.89]Order(s):UA DIP, URINE (POC) [5470311] Order #: [id number]. #:[id number] US SCROTUM AND CONTENTS [[id number]] Order #: [id number] FUTURE US DOPPLER COMPLETE [[id number]] Order #: [id number] FUTURE zinc oxide (BOUDREAUXS) 16 % ointApply [...] (around 07/25/2017).Follow-up and Disposition History RecordedEncounter Number: [id number] Status:Closed by BRANDEN SHAH PA-C on 03/27/17 [facility] PROGRESSon 03-27-2017 PROGRESS HNO ID: [id number]: Branden (Di) BongSeraminahe: (none)Author Type: Physician AssistantType: Progress NotesFiled: 03/27/2017 11:06 AMNote Text:[facility] Urological and Kidney InstitutePATIENT INFO:Michaelesperanza Harernes HISTORY= ========CHIEF COMPLAINT: Hydrocele HPI:This is a [...] urine in pad atnight> Annual appointment wJUDI Lane MT, PA-C after U/S in July 2017JUDI Bradford MT, PA-CElectronically signed Normal [facility] CNOVon 02-14-2017 CNOV Office Visit (UROLWS) NANDO BOOTH ([id number]) 1960 M [facility] Time Provider Wxsjtycokz22/15/17 10:00 AM BRANDEN SHAH) UROLWS During your visit today, we recorded the following information about you: Pulse Blood pressure 60/minute 104/70DI [place] 03/13/2017 7:14 PM SignedColumb[facility] System Urological and Kidney InstituteCHIEF COMPLAINT: ANDquot;HydroceleANDquo t;HPI:This [...] JUDI House, MT, PA-CElectronically signedReferring Provider: BRANDEN SHAH (DI) [[id number]]Allergies As of Date: 02/14/2017 Noted Allergy ReactionBACTRIM [...] every 6 *Problem List As Of Date: 02/14/2017(None)[facility] [id number] Status:Closed by BRANDEN SHAH PA-C on 03/13/17 Normal [facility] PROGRESSon 02-14-2017 PROGRESS HNO ID: [id number]: Branden (Di) BongService: (none)Author Type: Physician AssistantType: Progress NotesFiled: 03/13/2017 7:14 PMNote Text:[facility] Urological and Kidney InstituteCHIEF COMPLAINT: HydroceleHPI:This is [...] but scrotum is still enlarged> Follow up Tierney Shah, OTISS, MT, PA-CElectronically signed Normal [facility] Vital Signs Date Time Vital Sign Value Performing Clinician Facility 08-27-2024 13:57-0400 Body temperature 97.6 [degF] Dr. Ashley Dickey MD Work Phone: [facility] 08-27-2024 13:57-0400 Diastolic blood pressure 75 mm[Hg] Dr. Ashley Dickey MD Work Phone: [facility] 08-27-2024 13:57-0400 Heart rate 55 /min Dr. Ashley Dickey MD Work Phone: [facility] 08-27-2024 13:57-0400 Respiratory rate 16 /min Dr. Ashley Dickey MD Work Phone: [facility] 08-27-2024 13:57-0400 SaO2% (BldA) [Mass fraction] 95 % Dr. Ashley Dickey MD Work Phone: 4(220)254-930393 [place] [address] 08-27-2024 13:57-0400 Systolic blood pressure 120 mm[Hg] Dr. Ashley Dickey MD Work Phone: 5(451)716-323693 [place] [address] 08-27-2024 05:33-0400 Body mass index (BMI) [Ratio] 22.4 kg/m2 Dr. Ashley Dickey MD Work Phone: 6(290)684-320693 [address] [place] [address] 08-27-2024 05:33-0400 Body weight [address] Ashley Dickey MD Work Phone: 8(031)028-470193 [address] [place] [address] 08-26-2024 11:48-0400 Body height 177.[address] Ashley Dickey MD Work Phone: 0(472)033-565993 [place] [address] 08-25-2024 07:35-0400 Inhaled oxygen flow rate 2 L/min Dr. Ashley Dickey MD Work Phone: [facility] 08-19-2024 01:00-0400 Diastolic blood pressure 97 mm[Hg] Dr. Ashley Dickey MD Work Phone: [facility] 08-19-2024 01:00-0400 Heart rate 66 /min Dr. Ashley Dickey MD Work Phone: [facility] 08-19-2024 01:00-0400 Respiratory rate 18 /min Dr. Ashley Dickey MD Work Phone: [facility] 08-19-2024 01:00-0400 SaO2% (BldA) [Mass fraction] 93 % Dr. Ashley Dickey MD Work Phone: [facility] 08-19-2024 01:00-0400 Systolic blood pressure 122 mm[Hg] Dr. Ashley Dickey MD Work Phone: [facility] 08-18-2024 23:27-0400 Body temperature 98.9 [degF] Dr. Ashley Diceky MD Work Phone: [facility] 08-18-2024 19:45-0400 Body mass index (BMI) [Ratio] 22.3 kg/m2 Dr. Ashley Dickey MD Work Phone: [facility] 08-18-2024 19:45-0400 Body weight 68.[address] Ashley Dickey MD Work Phone: [facility] 08-18-2024 18:29-0400 Body height 175.[address] Ashley Dickey MD Work Phone: [facility] 01-08-2024 11:57-0500 Body mass index (BMI) [Ratio] 26.31 kg/m2 Narinder Christensen MD Work Phone: 4(493)661-199378 [address] 01-08-2024 11:57-0500 Body weight 76.2 kg Narinder Christensen MD Work Phone: 4(019)084-730078 [address] 06-18-2023 13:13-0400 Body height 170.2 cm Narinder Christensen MD Work Phone: 2(263)684-864895 [place] [address] 06-18-2023 13:13-0400 Body mass index (BMI) [Ratio] 26.41 kg/m2 Narinder Christensen MD Work Phone: [facility] 06-18-2023 13:13-0400 Body weight 76.5 kg Narinder Christensen MD Work Phone: [facility] 06-18-2023 13:13-0400 Diastolic blood pressure 81 mm[Hg] Narinder Christensen MD Work Phone: [facility] 06-18-2023 13:13-0400 Heart rate 101 /min Narinder Christensen MD Work Phone: [facility] 06-18-2023 13:13-0400 Systolic blood pressure 116 mm[Hg] Narinder Christensen MD Work Phone: [facility] 05-14-2023 15:00-0400 Inhaled oxygen flow rate 3 L/min Dr. Ashley Dickey Work Phone: [facility] 05-14-2023 15:00-0400 SaO2% (BldA) [Mass fraction] 93 % Dr. Ashley Dickey Work Phone: [facility] 05-14-2023 14:46-0400 Heart rate 52 /min Dr. Ashley Dickey Work Phone: [facility] 05-14-2023 14:40-0400 Body temperature 98.6 [degF] Dr. Ashley Dickey Work Phone: [facility] 05-14-2023 14:40-0400 Diastolic blood pressure 68 mm[Hg] Dr. Ashley Dickey Work Phone: [facility] 05-14-2023 14:40-0400 Respiratory rate 20 /min Dr. Ashley Dickey Work Phone: [facility] 05-14-2023 14:40-0400 Systolic blood pressure 121 mm[Hg] Dr. Ashley Dickey Work Phone: [facility] 05-14-2023 05:28-0400 Body mass index (BMI) [Ratio] 24 kg/m2 Dr. Ashley Dickey Work Phone: [facility] 05-14-2023 05:28-0400 Body weight 73.[address] Ashley Dickey Work Phone: [facility] 05-11-2023 11:07-0400 Body height 175.[address] Ashely Dickey Work Phone: [facility] 05-10-2023 06:06-0500 Body temperature 99 [degF] Dr. Ashley Dickey Work Phone: [facility] 05-10-2023 06:06-0500 Diastolic blood pressure 65 mm[Hg] Dr. Ashley Dickey Work Phone: [facility] 05-10-2023 06:06-0500 Heart rate 68 /min Dr. Ashley Dickey Work Phone: [facility] 05-10-2023 06:06-0500 Respiratory rate 18 /min Dr. Ashley iDckey Work Phone: [facility] 05-10-2023 06:06-0500 SaO2% (BldA) [Mass fraction] 90 % Dr. Ashley Dickey Work Phone: [facility] 05-10-2023 06:06-0500 Systolic blood pressure 99 mm[Hg] Dr. Ashley Dickey Work Phone: [facility] 05-10-2023 05:30-0500 Inhaled oxygen flow rate 4 L/min Dr. Ashley Dickey Work Phone: [facility] 05-10-2023 05:07-0500 Body height 175.[address] Ashley Dickey Work Phone: [facility] 05-10-2023 05:07-0500 Body mass index (BMI) [Ratio] 24.5 kg/m2 Dr. Ashley Dickey Work Phone: [facility] 05-10-2023 05:07-0500 Body weight 75.[address] Ashley Dickey Work Phone: [facility] 03-19-2023 13:40-0500 Respiratory rate 16 /min Narinder Christensen MD Work Phone: [facility] 03-05-2023 10:26-0500 Body mass index (BMI) [Ratio] 24.59 kg/m2 Narinder Christensen MD Work Phone: [facility] 03-05-2023 10:26-0500 Body weight 71.22 kg Narinder Christensen MD Work Phone: [facility] 03-05-2023 10:26-0500 Respiratory rate 20 /min Narinder Christensen MD Work Phone: [facility] 07-03-2022 09:12-0400 Body mass index (BMI) [Ratio] 24.65 kg/m2 Ashley Gastoner Work Phone: NM-Mnstlnx-Lurkshi Work Phone: 07-03-2022 09:12-0400 Body surface area Derived from formula 1.83 m2 Ashley Gastoner Work Phone: IH-Aouhdgw-Wjjfnhq Work Phone: 07-03-2022 09:12-0400 Body weight 71.39 kg Ashley Gastoner Work Phone: PO-Enfukiw-Xdnzudl Work Phone: 07-03-2022 09:12-0400 Diastolic blood pressure 80 mm[Hg] Ashley Gastoner Work Phone: RW-Jgqinej-Dvihhkl Work Phone: 07-03-2022 09:12-0400 Heart rate 106 /min Ashley Gastoner Work Phone: IN-Eydsqnr-Ihferud Work Phone: 07-03-2022 09:12-0400 Systolic blood pressure 150 mm[Hg] Ashley Gastoner Work Phone: TG-Yrroywk-Igvukum Work Phone: 10-10-2021 11:38-0400 Body mass index (BMI) [Ratio] 24.82 kg/m2 Ashley Gastoner Work Phone: TV-Trirrxl-Drfymrlg HC 232 DO Work Phone: 10-10-2021 11:38-0400 Body surface area Derived from formula 1.83 m2 Ashley Gastoner Work Phone: TW-Eeknrnl-Ubutqutb HC 232 DO Work Phone: 10-10-2021 11:38-0400 Body weight 71.9 kg Ashley Dickey Work Phone: UV-Ddbkafo-Smobvehn HC 232 DO Work Phone: 08-15-2021 09:28-0400 Body height 170.18 cm Ashley Gastoner Work Phone: QK-Ccocrfy-Kjpchbe Work Phone: 08-15-2021 09:28-0400 Body mass index (BMI) [Ratio] 24.82 kg/m2 Ashley Gastoner Work Phone: NV-Emczgim-Lthcojq Work Phone: 08-15-2021 09:28-0400 Body surface area Derived from formula 1.83 m2 Ashley Gastoner Work Phone: TX-Eoezhop-Nejojsb Work Phone: 08-15-2021 09:28-0400 Body weight 71.9 kg Aslhey Gastoner Work Phone: FQ-Edhuhni-Kgxvnfe Work Phone: 08-15-2021 09:28-0400 Diastolic blood pressure 63 mm[Hg] Ashley Dickey Work Phone: CS-Zlfmgxw-Qjedtqu Work Phone: 08-15-2021 09:28-0400 Heart rate 133 /min Ashley Gastoner Work Phone: AG-Hqrgvjn-Lqygrrk Work Phone: 08-15-2021 09:28-0400 Systolic blood pressure 93 mm[Hg] Ashley Gastoner Work Phone: TO-Wafnzzx-Pbfktya Work Phone: 08-16-2020 14:06-0400 Body height 170.18 cm Ashley Gastoner Work Phone: RV-Bjhnggg-Kvfxicj Work Phone: 08-16-2020 14:06-0400 Body mass index (BMI) [Ratio] 25.37 kg/m2 Ashley Dickey Work Phone: JS-Svitnat-Bhnwkra Work Phone: 08-16-2020 14:06-0400 Body surface area Derived from formula 1.85 m2 Ashley Dickey Work Phone: YX-Wovvzqc-Mlszkbs Work Phone: 08-16-2020 14:06-0400 Body weight 73.48 kg Ashley Dickey Work Phone: KQ-Vnmlsnq-Oxstprq Work Phone: 08-16-2020 14:06-0400 Diastolic blood pressure 77 mm[Hg] Ashley Dickey Work Phone: JU-Vdlujth-Asxtktd Work Phone: 08-16-2020 14:06-0400 Heart rate 124 /min Ashley Dickey Work Phone: BV-Lnscadd-Eabbeub Work Phone: 08-16-2020 14:06-0400 Systolic blood pressure 134 mm[Hg] Ashley Dickey Work Phone: TL-Ufdwekv-Ncnxkmy Work Phone: Encounters Encounter Date Encounter Type Care Provider Facility Start: 09-08-2024 End: 09-08-[address] Leroy Hills MD -[facility] Start: 09-08-2024 End: 09-08-2024 ambulatory Ashley Dickey Facility:[facility] Start: 09-01-2024 End: 09-01-[address] Ashley Dickey MD Work Phone: -Laboratory Specimen Start: 09-01-2024 End: 09-01-[address] Ashley Dickey MD -Laboratory Specimen Work Phone: Start: 09-01-2024 End: 09-01-2024 ambulatory Ashley Dickey Facility:[facility] Start: 08-27-2024 Non-patient / Non-visit Dr. Marciano Guerin MD [facility] Work Phone: Start: 08-27-2024 Dr. Marciano Guerin MD [facility] Work Phone: Start: 08-26-2024 Non-patient / Non-visit Dr. Marciano Guerin MD [facility] Work Phone: Start: 08-26-2024 Dr. Roxanne More MD [facility] Work Phone: Start: 08-25-2024 Non-patient / Non-visit Dr. Kee [facility] Work Phone: Start: 08-25-2024 Dr. Roxanne More MD [facility] Work Phone: Start: 08-24-2024 Non-patient / Non-visit Hugo Frie nd DO -[facility] Start: 08-24-[address] [facility] Start: 08-24-2024 Non-patient / Non-visit Dr. Kee [facility] Work Phone: Start: 08-24-2024 Dr. Redd Laughlin [facility] Work Phone: Start: 08-24-2024 [facility] Facility: [facility] Start: 08-24-2024 Non-patient / Non-visit Dr. Elizondo [facility] Start: 08-24-2024 Dr. Leroy Hills [facility] Start: 08-23-2024 Non-patient / Non-visit Hugo Frie nd DO -[facility] Start: 08-23-2024 Hugo Friend DO -[facility] Start: 08-23-2024 Non-patient / Non-visit Dr. Kee [facility] Work Phone: Start: 08-23-2024 Dr. Redd Laughlin [facility] Work Phone: Start: 08-22-2024 Non-patient / Non-visit Dr. Marciano Sal[facility] Work Phone: Start: 08-22-2024 Dr. Marciano Blair [facility] Work Phone: Start: 08-21-2024 Non-patient / Non-visit Dr. Marciano Guerin MD [facility] Work Phone: Start: 08-21-2024 Dr. Marciano Blair [facility] Work Phone: Start: 08-20-2024 Non-patient / Non-visit Dr. Amauri trejo DO [facility] Start: 08-20-2024 Dr. Amauri Hermosillo DO [facility] Start: 08-20-2024 Non-patient / Non-visit Dr. Marciano Guerin MD [facility] Work Phone: Start: 08-20-2024 Dr. Marciano Blair [facility] Work Phone: Start: 08-20-2024 Non-patient / Non-visit Dr. Lupillo llanos DO -[facility] Start: 08-20-2024 Dr. Lupillo Porras DO -[facility] Start: 08-19-2024 [facility] Facility: [facility] Start: 08-19-2024 Non-patient / Non-visit Dr. Rosio Cardenas MD [facility] Start: 08-19-2024 Dr. Hardik Cardenas MD [facility] Start: 08-19-2024 Non-patient / Non-visit Dr. Marciano Salas [facility] Work Phone: Start: 08-19-2024 Dr. Marciano Blair [facility] Work Phone: Start: 08-19-2024 Non-patient / Non-visit Dr. Lupillo llanos DO -[facility] Start: 08-19-2024 Dr. Lupillo Porras DO -[facility] Start: 08-19-2024 [facility] Sherrie Facility: [facility] Start: 08-19-2024 End: 08-27-2024 Evaluation and management of inpatient Dr. Robert Huizar DO -Intensive Care Unit Work Phone: Start: 08-19-2024 End: 08-27-2024 Dr. Marciano Guerin MD -Progressive [facility] U nit Work Phone: Start: 05-12-2024 End: 05-12-2024 ambulatory [facility] Ambulatory Start: 05-12-2024 End: 05-12-2024 Patient encounter procedure Narinder Christensen MD Work Phone: [facility] Comment on above: Urinary retention (P rimary Dx) Start: 03-26-2024 End: 03-26-2024 ambulatory [facility] Start: 01-08-2024 End: 01-08-2024 ambulatory [facility] Start: 01-08-2024 End: 01-08-2024 Office outpatient visit 25 minutes Narinder Christensen MD Work Phone: [facility] Comment on above: Gross hematuria; Nocturia; Urinary incontinence, unspecified type Start: 06-18-2023 End: 06-18-2023 Office outpatient visit 25 minutes Narinder Christensen MD Work Phone: [facility] Comment on above: Scrotal abscess (Betzaida reynaldo Dx); Urinary frequency; Nocturia; Urinary incontinence, unspecified type Start: 06-18-2023 End: 06-18-2023 ambulatory [facility] Start: 05-14-2023 Non-patient / Non-visit Dr. Amy Dickey Work Phone: [facility] Work Phone: Start: 05-14-2023 Non-patient / Non-visit Dr. Amy Dickey Work Phone: [facility] Start: 05-13-2023 Non-patient / Non-visit Dr. Amy Dickey Work Phone: [facility] Work Phone: Start: 05-12-2023 Non-patient / Non-visit Dr. Amy Dickey Work Phone: [facility] Work Phone: Start: 05-11-2023 Non-patient / Non-visit Dr. Amy Dickey Work Phone: [facility] Work Phone: Start: 05-10-2023 End: 05-14-2023 Evaluation and management of inpatient Dr. Ashley Dickey Work Phone: [facility] 3 Work Phone: Start: 05-10-2023 Non-patient / Non-visit Dr. Amy Dickey Work Phone: [facility] Work Phone: Start: 03-19-2023 End: 03-19-2023 Office outpatient visit 25 minutes Narinder Christensen MD Work Phone: [facility] Comment on above: Scrotal abscess; Urinary frequency; Nocturia Start: 03-05-2023 End: 03-05-2023 Office outpatient visit 25 minutes Narinder Christensen MD Work Phone: [facility] Comment on above: Scrotal abscess (Betzaida reynaldo Dx); Nocturia; Urinary incontinence, unspecified type; Urinary frequency Start: 07-03-2022 ambulatory MD NARINDER CHRISTENSEN Fa cility:[id number] Start: 07-03-2022 Office outpatient vi sit 25 minutes Ashley Dickey Work Phone: EH-Wpsqqxg-Olybwgu Work Phone: Start: 01-02-2022 ambulatory MD NARINDER CHRISTENSEN Fa cility:[id number] Start: 10-25-2021 Chart Update Ashley feliciano Work Phone: FI-Difxyvk-Ckxnjztc [facility] 232 DO Work Phone: Start: 10-10-2021 Patient encounter procedure Ashley Dickey Work Phone: [facility] 232 DO Work Phone: Start: 10-10-2021 ambulatory MD NARINDER CHRISTENSEN Fa cility:[id number] Start: 09-12-2021 Chart Update Ashley feliciano Work Phone: [facility] Work Phone: Start: 09-06-2021 End: 09-06-2021 Departed Referred [facility] Start: 08-15-2021 Office outpatient vi sit 25 minutes Ashley Dickey Work Phone: [facility] Work Phone: Start: 08-15-2021 ambulatory MD NARINDER CHRISTENSEN Fa cility:[id number] Start: 06-05-2021 End: 06-05-2021 Departed Referred [facility] Start: 08-16-2020 Office outpatient vi sit 15 minutes Ashley Dickey Work Phone: [facility] Work Phone: Start: 03-27-2017 End: 03-27-2017 Ambulatory BRANDEN SHAH (PA) [facility] Start: 02-14-2017 End: 02-14-2017 Ambulatory OTERO (PA) SHAH [facility] Procedures Date Procedure Procedure Detail Performing Clinician Start: 08-27-2024 Blood count smear mcrscp w/mnl difrntl wbc count Dr. Ashley Dickey MD Work Phone: Start: 08-27-[address] Marcell Dickey MD Work Phone: Start: 08-27-2024 Mean corpuscular hemoglobin concentration determination Dr. Ashley Dickey MD Work Phone: Start: 08-27-2024 Nucleated red blood cell count procedure Dr. Ashley Dickey MD Work Phone: Start: 08-27-2024 Platelet mean volume determination Dr. Stacey Dickey MD Work Phone: Start: 08-27-2024 Serum inorganic phosphate measurement Dr. Ashley Dickey MD Work Phone: Start: 08-24-[address] Ashley Dickey MD Work Phone: Start: 08-23-[address] Ashley Dickey MD Work Phone: Start: 08-23-[address] Ashley Rai MD Work Phone: Start: 08-21-[address] Ashley Dickey MD Work Phone: Start: 08-20-[address] Ashley Dickey MD Work Phone: Start: 08-20-2024 Plain X-ray of hip Dr. Ashley Dickey MD Work Phone: Start: 08-20-2024 Intramedullary nailing of femur Dr. Lance Dickey MD Work Phone: Start: 08-19-[address] Ashley Dickey MD Work Phone: Start: 08-19-2024 Plain X-ray of femur Dr. Ashley Dickey MD Work Phone: Start: 08-19-2024 Benzodiazepine measurement, urine Dr. Amy Dickey MD Work Phone: Start: 08-19-2024 Cocaine measurement, urine Dr. Ashley Rai MD Work Phone: Start: 08-19-2024 Methadone measurement, urine Dr. Ashley Dickey MD Work Phone: Start: 08-19-[address] Ashley Dickey MD Work Phone: Start: 08-19-[address] Ashley mcdonald MD Work Phone: Start: 08-19-[address] [place] [address] Ashley Dickey MD Work Phone: Start: 08-19-2024 Computed tomography of abdomen and pelvis with intravenous contrast Dr. Ashley Dickey MD Work Phone: Start: 08-19-2024 CT angiography of chest with contrast Dr. Ashley Dickey MD Work Phone: Start: 08-19-2024 CT of head without contrast Dr. Ashley heck MD Work Phone: Start: 08-18-2024 Carbon dioxide measurement, partial pressure Dr. Ashley Dickey MD Work Phone: Start: 08-18-2024 Gases blood o2 saturation only direct kristie Dr. Ashley Dickey MD Work Phone: Start: 08-18-2024 Measurement of partial pressure of oxygen in blood Dr. Ashley Dickey MD Work Phone: Start: 08-18-2024 Plain chest X-ray Dr. Ashley Dickey MD Work Phone: Start: 08-18-[address] Ashley Dickey MD Work Phone: Start: 08-18-2024 D-dimer assay, quantitative Dr. Ashley heck MD Work Phone: Comment on above: D-Dimer ELEVATED (>0.49): Additional aldo dies and clinicalassessments are indicated to conclude diagnosis of:Deep Vein Thrombosis (DVT) or Pulmonary Embolism (PE)CRITICAL VALUE CALLED TO ILYA GE08/19/24 0049 Gissel Villavicencio.RESULTS READ BACK BY SAME. Start: 08-18-[address] Marcell Dickey MD Work Phone: Start: 08-18-2024 Urine microscopy: red cells Dr. Ashley heck MD Work Phone: Start: 08-18-2024 Urnls dip stick/tablet reagent auto microscopy Dr. Ashley Dickey MD Work Phone: Start: 08-18-[address] Ashley Dickey MD Work Phone: Start: 08-18-[address] Ashley Dickey MD Work Phone: Start: 05-13-[address] Ashley Dickey Work Phone: Start: 05-12-2023 CT angiography of chest with contrast Dr. Ashley Dickey Work Phone: Start: 05-10-2023 SARS-CoV-2, Influenza & RSV (PCR) Dr. Amy Dickey Work Phone: Start: 05-10-2023 Plain chest X-ray Dr. Ashley Dickey Work Phone: No history of surgery Ashley Dickey Work Phone: Plan of Treatment Date Care Activity Detail Author Start: 11-24-2035 RSV High Risk: (Elde rly (60+) or Population) (1 - 1-dose 75+ series) RSV High Risk: (Elderly (60+) or Population) (1 - 1-dose 75+ series) [facility] Start: 09-08-2024 Plain x-ray of pelvi s and lower extremity HIP, UNI W/ Pelvis 2-3 Views [facility] Start: 09-08-2024 XR Pelvis and Hip Views [facility] Start: 08-27-2024 Patient discharge [facility] Start: 08-27-2024 [facility] Start: 08-26-2024 Care planning and pr oblem solving actions [facility] Start: 08-24-2024 Blood culture [facility] Start: 08-24-2024 [facility] Start: 08-23-2024 End: 08-23-2024 [facility] Start: 08-23-2024 Blood culture [facility] Start: 08-23-2024 [facility] Start: 08-23-2024 Consultation [facility] Start: 08-22-2024 End: 08-22-2024 [facility] Start: 08-21-2024 Speech therapy assessment [facility] Start: 08-20-2024 Skin care [facility] Start: 08-20-2024 Ambulation therapy management [facility] Start: 08-20-2024 Application of device [facility] Start: 08-20-2024 Exercises [facility] Start: 08-20-2024 Following clinical p athway protocol [facility] Start: 08-20-2024 Neurovascular assessment [facility] Start: 08-20-2024 Oxygen therapy [facility] Start: 08-20-2024 Patient education [facility] Start: 08-20-2024 Provision of activit y privileges [facility] Start: 08-20-2024 Recommendation to co ilia with treatment [facility] Start: 08-20-2024 Referral to occupati onal therapist [facility] Start: 08-20-2024 Referral to service [facility] Start: 08-20-2024 Vital signs measurements [facility] Start: 08-20-2024 Wound care [facility] Start: 08-20-2024 End: 08-20-2024 [facility] Start: 08-20-2024 Referral to gastroenterology service [facility] Start: 08-20-2024 Care planning and pr oblem solving actions [facility] Start: 08-19-2024 Introduction of urin anjum catheter [facility] Start: 08-19-2024 Consultation [facility] Start: 08-19-2024 Application of intermittent pneumatic compression device [facility] Start: 08-19-2024 Following clinical p athway protocol [facility] Start: 08-19-2024 Cardiac monitoring [facility] Start: 08-19-2024 Catheterization of vein [facility] Start: 08-19-2024 Inhalation therapy procedure [facility] Start: 08-19-2024 Notification of physician [facility] Start: 08-19-2024 Vital signs measurements [facility] Start: 08-19-2024 [facility] Start: 08-19-2024 Respiratory pathogen s DNA and RNA panel - Respiratory specimen by KYLIE with probe detection [facility] Start: 08-19-2024 Taking nasal swab [facility] Start: 08-19-2024 Hospital admission, emergency, from emergency room, medical nature [facility] Start: 08-19-2024 [place] measurement [facility] Start: 08-19-2024 Computed tomography of abdomen and pelvis with intravenous contrast Abdomen/Pelvis W IV Cont ONLY [facility] Start: 08-19-2024 CT angiography of ch est with contrast CTA Chest W/WO Contrast [facility] Start: 08-19-2024 CT of head without contrast Brain/Head without Contrast [facility] Start: 08-19-2024 Admission procedure [facility] Start: 08-19-2024 End: 08-19-2024 Consultation [facility] Start: 08-19-2024 Patient referral to dietitian [facility] Start: 08-18-2024 End: 08-18-2024 [facility] Start: 08-18-2024 Bacteria identified in Blood by Culture Blood Culture [facility] Start: 08-18-2024 Bacteria identified in Urine by Culture Urine Culture [facility] Start: 08-06-2024 End: 08-06-2024 Patient encounter procedure 08/06/2024 2:00 PM EDT Office Visit [address] [place] [address] Maximo Koehler MD [address] [facility] [address], [facility] [address] [place] [address] [facility] Start: 06-01-2024 End: 06-17-2024 Prostate specific Ag [Mass/volume] in Serum or Plasma Prostate Specific Antigen Lab Routine Nocturia Expected: 06/01/2024 (Approximate), Expires: 06/17/2024 [facility] Service Area Work Phone: Comment on above: Expected: 06/01/2024 (Approximate), Expires: 06/17/2024 Start: 05-12-2024 End: 05-12-2025 Basic metabolic 2000 panel - Serum or Plasma Basic Metabolic Panel Lab Routine Urinary retention Expected: 05/12/2024 (Approximate), Expires: 05/12/2025 [facility] Service Area Work Phone: Comment on above: Expected: 05/12/2024 (Approximate), Expires: 05/12/2025 Start: 01-08-2024 End: 01-07-2025 Basic metabolic 2000 panel - Serum or Plasma Basic Metabolic Panel Lab Routine Nocturia Expected: 01/08/2024 (Approximate), Expires: 01/07/2025 [facility] Area Work Phone: Comment on above: Expected: 01/08/2024 (Approximate), Expires: 01/07/2025 Start: 01-08-2024 End: 01-07-2025 CT Abdomen and Pelvis W contrast IV CT abdomen pelvis w IV contrast Imaging Routine Gross hematuria Expected: 01/08/2024, Expires: 01/07/2025 [facility] Work Phone: Comment on above: Expected: 01/08/2024 , Expires: 01/07/2025 Start: 01-08-2024 End: 01-07-2025 Prostate specific Ag [Mass/volume] in Serum or Plasma Prostate Specific Antigen Lab Routine Nocturia Expected: 01/08/2024 (Approximate), Expires: 01/07/2025 [facility] Work Phone: Comment on above: Expected: 01/08/2024 (Approximate), Expires: 01/07/2025 Start: 11-02-2023 COVID-19 Vaccine ( season) COVID-19 Vaccine ( season) [facility] Start: 11-02-2023 Influenza vaccination [facility] Start: 06-18-2023 End: 06-18-2023 Patient encounter procedure 06/18/2023 1:15 PM EDT Office Visit [facility] [address] [facility] [address] [place] [id number] Narinder Christensen MD [address] [place] [address] [facility] Start: 05-14-2023 Patient discharge [facility] Start: 05-13-2023 Respiratory secretio n precautions [facility] Start: 05-13-2023 Consultation [facility] Start: 05-12-2023 Speech therapy assessment [facility] Start: 05-10-2023 Bacteria identified in Blood by Culture Blood Culture [facility] Start: 05-10-2023 End: 05-10-2023 Blood culture [facility] Start: 05-10-2023 End: 05-10-2023 [facility] Start: 05-10-2023 Following clinical p athway protocol [facility] Start: 05-10-2023 Aspiration precautions [facility] Start: 05-10-2023 Assessment of risk o f venous thromboembolism [facility] Start: 05-10-2023 Bacteria identified in Sputum by Culture [facility] Start: 05-10-2023 Documentation procedure [facility] Start: 05-10-2023 Fall prevention [facility] Start: 05-10-2023 Incentive spirometry [facility] Start: 05-10-2023 Inhalation therapy procedure [facility] Start: 05-10-2023 Insertion of cathete r into peripheral vein [facility] Start: 05-10-2023 Introduction of urin anjum catheter [facility] Start: 05-10-2023 Measuring intake and output [facility] Start: 05-10-2023 Oxygen therapy [facility] Start: 05-10-2023 Providing care accor ding to standard [facility] Start: 05-10-2023 Provision of activit y privileges [facility] Start: 05-10-2023 Referral to occupati onal therapist [facility] Start: 05-10-2023 Referral to service [facility] Start: 05-10-2023 Speech therapy assessment [facility] Start: 05-10-2023 Tobacco use cessatio n education [facility] Start: 05-10-2023 Legionella pneumophi la Ag [Presence] in Urine [facility] Start: 05-10-2023 Streptococcus pneumo niae antigen assay [facility] Start: 05-10-2023 Verification routine [facility] Start: 05-10-2023 Admission procedure [facility] Start: 05-10-2023 [facility] Start: 03-19-2023 End: 03-19-2023 Patient encounter procedure 03/19/2023 1:30 PM EST Office Visit [facility] [address] [facility] [address] [place] [id number] Narinder Christensen MD [address] [place] [address] [facility] Start: 03-05-2023 End: 03-05-2024 Prostate specific Ag [Mass/volume] in Serum or Plasma Prostate Specific Antigen Lab Routine Nocturia Expected: 03/05/2023 (Approximate), Expires: 03/05/2024 [facility] Service Area Work Phone: Comment on above: Expected: 03/05/2023 (Approximate), Expires: 03/05/2024 Start: 11-01-2022 COVID-19 Vaccine ( season) COVID-19 Vaccine ( season) [facility] Start: 11-01-2022 Influenza vaccination Influenza Vacc ine (#1) [facility] Start: 10-10-2021 CYSTOSCOPY, Provider : [facility] RM,[id number], Status: Pen, Time: 10:30 AM CYSTOSCOPY, Provider: [facility] RM,[id number], Status: Pen, Time: 10:30 AM [facility] Work Phone: Start: 2010 Zoster Vaccines (1 of 2) Zoste r Vaccines (1 of 2) [facility] Start: 1982 DTaP/Tdap/Td Vaccine s (1 - Tdap) DTaP/Tdap/Td Vaccines (1 - Tdap) [facility] Start: 11-24-1979 Pneumococcal vaccination Pneum ococcal Vaccine (1 of 2 - PCV) [facility] Start: 1978 Diabetes mellitus screening Diabetes Screening [facility] Start: 1978 Hepatitis C screening Hepatitis C Sc reening [facility] Start: 1966 Pneumococcal Vaccine : Pediatrics (0 to 5 Years) and At-Risk Patients (6 to 64 Years) (1 - PCV) Pneumococcal Vaccine: Pediatrics (0 to 5 Years) and At-Risk Patients (6 to 64 Years) (1 - PCV) [facility] Start: 1966 Pneumococcal Vaccine : Pediatrics (0 to 5 Years) and At-Risk Patients (6 to 64 Years) (1 of 2 - PCV) Pneumococcal Vaccine: Pediatrics (0 to 5 Years) and At-Risk Patients (6 to 64 Years) (1 of 2 - PCV) [facility] Start: 1961 MMR Vaccines (1 of 1 - Standard series) MMR Vaccines (1 of 1 - Standard series) [facility] Start: 05-23-1961 COVID-19 Vaccine (#1) COVID-19 Vacci ne (#1) [facility] Start: 1960 HIV screening HIV Screening [facility] Start: 1960 Lipid panel Lipid Panel [facility] Start: 1960 Screening for malign ant neoplasm of colon [facility] Start: 1960 Thyroid stimulating hormone measurement TSH Level [facility] Start: 1960 Yearly Adult Physical Yearly Adult P hysical [facility] Alanine aminotransfe rase [Enzymatic activity/volume] in Serum or Plasma [facility] Albumin [Mass/volume ] in Serum or Plasma [facility] Alkaline phosphatase [Enzymatic activity/volume] in Serum or Plasma [facility] Amphetamines [Presen ce] in Urine by Screen method >1000 ng/mL [facility] Anion gap measurement [facility] r [facility] Aspartate aminotrans ferase [Enzymatic activity/volume] in Serum or Plasma [facility] Benzodiazepine measurement, urine [facility] Bilirubin, total measurement [facility] BUN/Creatinine ratio [facility] Calcium [Mass/volume ] in Serum or Plasma [facility] Carbon dioxide, tota l [Moles/volume] in Serum or Plasma [facility] Chloride [Moles/volu me] in Serum or Plasma [facility] Cocaine measurement, urine [facility] Cortisol [Mass/volum e] in Serum or Plasma [facility] Creatinine [Moles/vo lume] in Serum or Plasma [facility] Erythrocyte mean corpuscular volume determination [facility] Ethanol [Mass/volume ] in Serum or Plasma [facility] fentaNYL [Presence] in Urine by Screen method [facility] Glucose [Mass/volume ] in Serum or Plasma [facility] Hematocrit [Volume Fraction] of Blood [facility] Hemoglobin [Mass/vol ume] in Blood [facility] Hemoglobin A1c/Hemoglobin.total in Blood [facility] Leukocytes [#/volume ] in Blood [facility] Mean corpuscular hemoglobin concentration determination [facility] Mean corpuscular hemoglobin determination [facility] Measurement of renal function [facility] Methadone measuremen t, urine [facility] Neutrophil count [facility] Neutrophil percent differential count [facility] Patient referral [facility] Work Phone: Phencyclidine [Prese nce] in Urine [facility] Platelets [#/volume] in Blood [facility] Potassium [Moles/vol ume] in Serum or Plasma [facility] Red blood cell count [facility] Red cell distributio n width determination [facility] Sodium [Moles/volume ] in Serum or Plasma [facility] Total protein measurement [facility] Urea nitrogen [Mass/volume] in Serum or Plasma [facility] Urine cannabinoid measurement [facility] Urine culture [facility] Urine opiate measurement [facility] Valproate [Mass/volu me] in Serum or Plasma [facility] Payers Date Payer Category Payer Self-pay [id number] 2017 Medicaid [id number] 2017 Medicaid [id number] 1960 Unknown [id number] 2.. [id number] 1960 Unknown [id number] 2.. 840.1.742483.3.579.2.356 1960 Unknown [id number] 2.16. 840.1.100591.3.579.2.356 1960 Unknown [id number] 2.16. 840.1.478141.3.579.2.356 1960 Unknown [id number] 2.16.8 40.1.019263.3.579.2.1243 1960 Unknown [id number] 2.16. 840.1.904781.3.579.2.1244 1960 Unknown [id number] 2.16. 840.1.794945.3.579.2.1244 1960 Unknown [id number] 2.16.8 40.1.806654.3.579.2.1244 Unknown MEDICAID Unknown [id number] Unknown [id number] 2.16.8 40.1.564514.3.579.2.462 Unknown [id number] 2.16.8 40.1.461342.3.579.2.462 Unknown [id number] 2.16.8 40.1.979542.3.579.2.462 Unknown [id number] 2.16.8 40.1.308392.3.579.2.462 Unknown [id number] 2.16.8 40.1.343896.3.579.2.462 Unknown [id number] 2.16.8 40.1.105148.3.579.2.462 Unknown [id number] 2.16.8 40.1.387222.3.579.2.462 Unknown [id number] 2.16.8 40.1.347516.3.579.2.462 Unknown [id number] 2.16.8 40.1.604218.3.579.2.462 Unknown [id number] 2.16.8 40.1.667569.3.579.2.462 Unknown [id number] 2.16.8 40.1.462089.3.579.2.462 Unknown [id number] 2.16.8 40.1.768476.3.579.2.462 Unknown [id number] 2.16.8 40.1.751600.3.579.2.462 Unknown [id number] 2.16.8 40.1.161020.3.579.2.462 Unknown [id number] 2.16.8 40.1.523215.3.579.2.462 Unknown [id number] 2.16.8 40.1.107276.3.579.2.462 Unknown [id number] 2.16.8 40.1.851655.3.579.2.462 Unknown [id number] 2.16.8 40.1.283246.3.579.2.462 Unknown [id number] 2.16.8 40.1.401811.3.579.2.462 Unknown [id number] 2.16.8 40.1.451336.3.579.2.462 Unknown [id number] 2.16.8 40.1.531697.3.579.2.462 Unknown [id number] 2.16.8 40.1.440664.3.579.2.462 Social History Date Type Detail Facility Start: 03-05-2023 End: 05-12-2024 Current every day smoker Current every day smoker [facility] Work Phone: Start: 11-05-2017 End: 05-10-2023 Tobacco smoking status OKIS Unknown if ever smoked [facility] Start: 1960 Sex Assigned At Male [facility] Start: 03-05-2023 End: 08-19-2024 Tobacco smoking status OKIS Smokes tobacco daily [facility] History of tobacco use Cigarette Smoker [facility] Work Phone: Start: 03-05-2023 End: 06-18-2023 Tobacco use and exposure Smokeless tobacco non-user [facility] Work Phone: Start: 03-05-2023 End: 05-12-2024 Tobacco use panel [facility] Work Phone: Start: 1960 Sex Assigned At Not on file [facility] Work Phone: Start: 03-09-2023 End: 05-12-2024 Exposure to SARS-CoV-2 (event) Not sure [facility] Medical Equipment Procedure Code Equipment Code Equipment Original Text Equipment Identifier Dates Insertion, intramedullary quintin, femur, using titanium trochanteric fixation nail syste FDA Start: 08-20-2024 Insertion, intramedullary quintin, femur, using titanium trochanteric fixation nail syste FDA Start: 08-20-2024 Insertion, intramedullary quintin, femur, using titanium trochanteric fixation nail syste FDA Start: 08-20-2024 Insertion, intramedullary quintin, femur, using titanium trochanteric fixation nail syste LOCKING SCREW FDA Start: 08-20-2024 Insertion, intramedullary quintin, femur, using titanium trochanteric fixation nail syste tfna FDA Start: 08-20-2024 Insertion, intramedullary quintin, femur, using titanium trochanteric fixation nail syste tfna helical blade FDA Start: 08-20-2024 Insertion, intramedullary quintin, femur, using titanium trochanteric fixation nail syste LOCKING SCREW FDA Start: 08-20-2024 Insertion, intramedullary quintin, femur, using titanium trochanteric fixation nail syste tfna FDA Start: 08-20-2024 Insertion, intramedullary quintin, femur, using titanium trochanteric fixation nail syste tfna helical blade FDA Start: 08-20-2024 Insertion, intramedullary quintin, femur, using titanium trochanteric fixation nail syste LOCKING SCREW FDA Start: 08-20-2024 Insertion, intramedullary quintin, femur, using titanium trochanteric fixation nail syste tfna FDA Start: 08-20-2024 Insertion, intramedullary quintin, femur, using titanium trochanteric fixation nail syste tfna helical blade FDA Start: 08-20-2024 Goals Date Patient Goal Desired Activity /State Functional Status Date Assessment Result Facility 08-27-2024 Functional status Bedrest [facility] Work Phone: 05-14-2023 Functional status Ambulates [facility] Work Phone: Mental Status Date Assessment Result Facility 08-27-2024 Cognitive function Voice/Name [facility] Work Phone: 08-27-2024 Cognitive function Cooperative [facility] Work Phone: 08-18-2024 Cognitive function Voice/Name [facility] Work Phone: 05-14-2023 Cognitive function Voice/Name [facility] Work Phone: Clinical Notes 07-03-2020 to 08-27-2024 Note Date & Type Note Facility 08-27-2024 Discharge summary Note Date/Time August 27, 2024 1:01pm [facility] Medical Records Department [address] [place] [address] Discharge Summary 08/27/24 1256 MR#: [id number] Acct: [id number] Name: NANDO OCHOA Rep #:[id number] : 1960 63 From: Marciano Saeed PCP: Dr. Ashley Dickey MD Status:ADM IN Location: [place] [address] Providers Date of Admission: 08/19/24 Primary Care Physician: Dr. Ashley Dickey MD Consultations 08/19/24 01:30 Consult: Administrative Supervisor / Pulmonary Medicine Routine Consulting Provider: Intensivists/Pulmonary Med Reason for Consult: UTI with Hypotension and Adrenal Insufficiency. EMERGENT Consult: No MD Notified: Yes Date Notified: 08/23/24 Time Notified: 08:19 Method of Notification: Text 08/19/24 04:12 Consult: Orthopedics Routine Consulting Provider: Amauri Hermosillo Reason for Consult: Acute Left Hip Fx on CT. EMERGENT Consult: No Notified: Yes Date Notified: 08/19/24 Time Notified: 04:12 Method of Notification: ED Physician Initiated 08/20/24 09:02 Consult: Gastroenterology Routine Consulting Provider: [facility] Reason for Consult: stercoral colitis of RS and whole colon, fecolith EMERGENT Consult: No MD Notified: Yes Date Notified: 08/20/24 Time Notified: 09:02 Method of Notification: Verbal 08/23/24 08:11 Consult: Infectious Disease Routine Consulting Provider: Laci Jackson Reason for Consult: MRSA bacteremia EMERGENT Consult: No MD Notified: Yes Date Notified: 08/23/24 Time Notified: 08:11 Method of Notification: Text Reason For Visit: UTI, HYPOTENSION, AMS AND HYPOXIA Diagnosis Discharge Diagnosis (1) Acute metabolic encephalopathy: Status: Acute Code(s): G93.41 - Metabolic encephalopathy (2) MRSA bacteremia: Status: Acute Code(s): R78.81 - Bacteremia; B95.62 - Methicillin resistant Staphylococcus aureus infection as the cause of diseases classified elsewhere (3) Constipation: Status: Acute Code(s): K59.00 - Constipation, unspecified (4) Hip fracture: Status: Acute Code(s): S72.009A - Fracture of unspecified part of neck of unspecified femur, initial encounter for closed fracture Qualifiers: Encounter type: initial encounter Fracture type: closed Laterality: left Qualified Code(s): S72.002A - Fracture of unspecified part of neck of left femur, initial encounter for closed fracture Plan Patient is a 63-year-old male who presented to [facility] ED on 08/18/2024 with altered mental status and hypotension. 1. Sepsis secondary to MRSA bacteremia with unclear source, concern for UTI ? ID following. Met sepsis criteria on admission with hypotension, fevers and acute metabolic encephalopathy in setting of infection of unclear source. Bloodculture positive for MRSA, unclear source. Urine culture with small growth of bacteria. CT abdomen pelvis showed stercoral colitis. TTE on 08/19 with no overt signs of endocarditis. DARREN on 08/24 was also unremarkable. Repeat blood cultures ordered on 08/23 and remain pending. Continue IV vancomycin and meropenem for now. Appreciate further ID recommendations. 08/26: Repeat blood culture on 08/23 negative. DARREN negative for vegetation. EF 60%. Bubble contrast study negative for PFO/ASD. Mild AI. PICC line and 6 weeks of IV vancomycin. Stop date 10/04/2024 with weekly labs and ID follow-up in3 to 4 weeks. 08/27: Prescription for IV antibiotics given by ID. Patient has right arm PICC line. Ordered for weekly labs. Rest as mentioned above. 2. Acute metabolic encephalopathy in setting of history of anoxic brain injury,schizoaffective disorder and cognitive impairment ? CT brain unremarkable. Suspected multifactorial from infection as above and possibly polypharmacy. Encephalopathy was improving during hospitalization but on 08/23, patient was alert but not answering questions appropriately for me. Continue home p.o. Abilify and benztropine. Treating with IV Keppra while inpatient. [place] level normal but will defer to nephrology on when safe to resume lithium. Notably trying to minimize oral medications as patient has severe constipation with fecalith as below. 08/27: Patient is on baseline mental function with history of schizoaffective disorder and cognitive impairment. Patient was put back on his home medications of Haldol 1 mg 3 times daily, divalproex 125 mg 3 times daily. 3. Left hip fracture with acute on chronic debility ? Orthopedic surgery following. S/p left hip cephalomedullary fixation on 08/20. Patient tolerated procedure well, no intraoperative complications. Treating postoperative pain with IV Toradol as needed; notably trying to minimize opiatesas able. 08/27: Follow-up with the hip surgeon Dr. Hermosillo 4. Severe impacted fecalith and stercoral colitis, improving ? GI following. CT abdomen pelvis on 08/19 showed moderate amount of stool in the large bowel suggestive of constipation with associated mild stercoral colitis of the rectosigmoid colon. Initially treated with enemas as well as lactulose, senna and Dulcolax suppositories. Patient did have some small bowel movements noted with this. S/p EGD on 08/23 with NG tube placement. Plan was for GoLytely through the feeding tube in preparation for colonoscopy on 08/24; however patient unfortunately pulled the feeding tube out on the evening of 08/23. He notably did receive some of the GoLytely. Patient has now had significant improvement in bowel movements with improvement in abdominal distention and discomfort. Continue regular diet with pur?ed solids and thin liquids. Will hold bowel regimen for now, can restart as needed. 08/26: Patient moving bowel. Severe hypokalemia, IV potassium phosphate ordered 08/27: Patient did start bowel movement. Follow-up in GI office 5. Chronic oral dysphagia ? Speech therapy following. Patient with severe oral dysphagia and mild pharyngeal dysphagia noted on prior MBSS in 2023. Recommendation on this admission was for pur?ed solids with thin liquids and will continue this diet for now. 6. Chronic adrenal insufficiency ? There was initially concern for acute on chronic adrenal insufficiency and patient was on IV hydrocortisone for this. However with improvement in blood pressure with IV fluid resuscitation and improvement in sodium level, hydrocortisone was discontinued. Continue home p.o. hydrocortisone and fludrocortisone. Chronic medical conditions: ? Hypertension: Holding home propranolol for now. ? Hyperlipidemia: Continue home statin. ? Asthma/COPD: Stable on room air, not in acute exacerbation. Continue home inhalers. ? Chronic tobacco dependency: Nicotine patch in place per patient request. Discussed cessation on discharge. ? Seizure disorder: Continue IV Keppra as noted above. ? BPH with obstructive symptoms: Continue on Flomax. ? Chronic normocytic anemia: Hemoglobin stable between 7.5-8 for the past several days. Continue to monitor CBC daily. DVT prophylaxis: Eliquis 2.5 mg twice daily CODE STATUS: Full code, unverified Discharge medication reconciliation done. Discharge follow-up instructions completed. Discharge process discussed with the patient and all questions wereanswered to patient's satisfaction. Follow with PCP in 1 to 2 weeks Total time spent, exact 35 minutes on discharge meds reconciliation, examination, coordination of care with nurses and ancillary staff, review of imaging and blood test and discussion with the patient on follow-up instructions. Medications at Discharge Home Medications acetaminophen 325 mg tablet (Tylenol) 650 mg PO Q4H PRN Headache 05/26/17 albuterol sulfate 2.5 mg/3 mL (0.083 %) solution for nebulization 2.5 mg inhalation Q6H PRN PRN Sob &/Or Wheezing 05/26/17 aripiprazole 5 mg tablet 5 mg PO QHS blood thinner 05/26/17 benzocaine 15 mg-menthol 3.6 mg lozenges (Cepacol Sore Throat (benzocaine-menthol)) 1 blaire buccal PRN PRN Sore Throat 05/26/17 bisacodyl 10 mg rectal suppository 10 mg RECTAL DAILY PRN PRN Constipation 05/26/17 divalproex 125 mg capsule,delayed release sprinkle (Depakote Sprinkles) 125 mg PO Q8H schizophrednia 05/26/17 fludrocortisone 0.1 mg tablet 0.05 mg PO DAILY@0800 abn labs 05/26/17 guaifenesin 100 mg/5 mL oral liquid 10 ml PO Q4H PRN PRN Cough 05/26/17 haloperidol 1 mg tablet 1 mg PO TID anxiety 05/26/17 lithium carbonate [...] tablet 40 mg PO QHS hyperlipidemia 05/10/23 diphenhydramine HCl 50 mg/mL injection solution 50 mg IM Q6H PRN agitation 05/10/23 folic acid 400 mcg tablet 400 mcg PO DAILY deficiency 05/10/23 haloperidol lactate 5 mg/mL injection solution 5 mg IM Q3H PRN agitation 05/10/23 hydrocortisone 10 mg tablet 10 mg PO BID adrenal insuffienciency 05/10/23 hydrocortisone 5 mg tablet 5 mg PO DAILY adrenal insuffiencien 05/10/23 lorazepam 0.5 mg tablet (Ativan) 0.5 [...] tablet 20 mg PO DAILY depression 05/10/23 aripiprazole 10 mg tablet 10 mg PO DAILY 08/18/24 benztropine 1 mg tablet 1 mg PO BID 08/18/24 calcium carbonate (Calcium 500) 500 mg PO BID 08/18/24 cholecalciferol (vitamin D3) 50 mcg (2,000 unit) tablet (Vitamin D3) 4,000 unit PO DAILY 08/18/24 vancomycin 1 gram/200 mL in dextrose 5 % intravenous piggyback 1,000 mg IV Q12H 39 days #15,600 mL 08/26/24 apixaban 5 mg tablet (Eliquis) 2.5 mg (1/2 x 5 mg) PO BID 20 days #0 tabs 08/27/24 lactulose 10 gram/15 mL oral solution (Enulose) 20 g (30 mL) PO TID abn labs 30 days #0 mL 08/27/24 oxycodone 5 mg tablet 2.5 mg (1/2 x 5 mg) PO Q4H PRN PRN Pain Score 4-10 3 days #7 tabs 08/27/24 pantoprazole 40 mg tablet,delayed release 40 mg PO BID #0 tabs 08/27/24 propranolol 10 mg tablet 20 mg (2 x 10 mg) PO BID #0 tabs 08/27/24 sennosides 8.6 mg-docusate sodium 50 mg tablet (Stimulant Laxative Plus) 2 tab PO BID #0 tabs 08/27/24 Weight / BMI Weight Weight: 156 lb 8.451 oz Body Mass Index (BMI) 22.4 ABG / Lab / Microbiology Data 08/27/24 07:19 08/27/24 07:19 Laboratory: Laboratory Results - last 24 hr 08/26/24 16:34: Vancomycin Trough 18.9 H 08/27/24 07:19: WBC 3.4 L, RBC 2.38 L, Hgb 7.2 L, Hct 21.6 L, MCV 90.8, MCH 30.3, MCHC 33.3, RDW Std Deviation 40.8, RDW Coeff of Eyal 12.7, Plt Count 133 L,MPV 10.4, Immature Gran % (Auto) 0.600, Neut % (Auto) 52.9, Lymph % (Auto) 31.0,[place] % (Auto) 10.1 H, Eos % (Auto) 5.1 H, Baso % (Auto) 0.3, Absolute Neuts (auto) 1.8 L, Absolute Lymphs (auto) 1.04, Nucleated RBC % 0, Sodium 144, Potassium 2.9 L, Chloride 114 H, Carbon Dioxide 22.4, Anion Gap 8, BUN 9, Creatinine 0.77, Estim Creat Clear Calc 98.61, Est GFR (MDRD) Non-Af 101, BUN/Creatinine Ratio 11.8, Glucose 98, Calcium 8.0, Phosphorus 2.8, Magnesium 2.2 Microbiology: Microbiology 08/24/24 11:23 Blood Culture (Wb) - Anticubital Right Blood Culture - Preliminary No growth in 48 hours. 08/18/24 18:59 Urine, Catheterized Urine Culture - Final Corynebacterium jeikeium Aerococcus urinae Enterococcus raffinosus 08/23/24 13:39 Blood Culture (Wb) - Right Hand Blood Culture - Preliminary No growth in 48 hours. 08/18/24 18:54 Blood Culture (Wb) - Anticubital Left Blood Culture - Final Meth. resistant Staph. aureus 08/18/24 18:50 Blood Culture (Wb) - Anticubital Right Blood Culture - Final No growth in 5 days. 08/21/24 15:11 Nasal Secretion MRSA (PCR) - Final 08/19/24 01:35 Mucosa - Nasopharyngeal Respiratory Panel (PCR) - Final D/C Instructions DC O2, CPAP, BIPAP Needs Home O2 Discharge instructions: No Meaningful Use Info Meaningful Use Meaningful Use Diagnoses (Choose all that apply): None applicable Ischemic Stroke Statin Dosing Therapy Reference: STATIN DOSE THERAPY REFERENCE: * Patients > 75 years receive moderate or high dose statin therapy. * Patients 75 years or YOUNGER should receive HIGH intensity statin dose unless contraindicated. You will be required to document reason for non-treatment if statin daily dose does not meet guidelines. HIGH DOSE STATIN THERAPY DAILY Atorvastatin > than or = to 40 mg Rosuvastatin > than or = to 20 mg Amlodipine + Atorvastatin > than or = to 2.5/40 mg Ezetimibe + Simvastatin 10/80 mg Simvastatin 80mg Discharge Plan Admission Admit Date/Time: 08/19/24 00:04 Primary Reason for Your Visit: Acute encephalopathy, sepsis, left hip fracture Attending Provider: Marciano Guerin Primary Care Provider: Ashley Dickey Consulting Providers: Robert Huizar; Amauri Hermosillo; Marciano Guerin; Laci Jackson; Jonnathan Campuzano; Devin Bates; Scott Blandon; Lupillo Porras; Robert Fitch; Edwin Espinal; Kt Garcia; Antonia Parsons; Jose Johnson; Alok Germain; William Leon; Sanjuana Wasserman; Tomer Hawkins; Alfonso,Kassi; Alfonso,Dominic; Beltran Dubois; Jj Lutz; Winston Steel; Yazan Cortés; Allen Dunham; Braulio Mitchell; Cb Amor; Yann Ji; Redd Laughlin Discharge Orders/Prescriptions Prescriptions: New vancomycin in dextrose 5 % 1 gram/200 mL Piggyback 1,000 mg IV Q12H 39 Days Qty: 11561 0RF Rx Instructions: stop date 10/04/24. Dx: MRSA bacteremia. Weekly bmp, cbc, and vanc trough. Fax to [phone]. Routine picc care per protocol. oxycodone 5 mg Tablet 2.5 mg PO Q4H PRN PRN (Reason: Pain Score 4-10) 3 Days Qty: 7 0RF Eliquis 5 mg Tablet 2.5 mg PO BID 20 Days Qty: 0 0RF sennosides-docusate sodium [Stimulant Laxative Plus] 8.6-50 mg Tablet 2 tab PO BID Qty: 0 0RF propranolol 10 mg Tablet 20 mg PO BID Qty: 0 0RF pantoprazole 40 mg Tablet,Delayed Release (Dr/Ec) 40 mg PO BID Qty: 0 0RF Continued albuterol sulfate 2.5 MG/3 ML solution for nebulization 2.5 mg inhalation Q6H PRN PRN (Reason: Sob &/Or Wheezing) bisacodyl 10 MG suppository 10 mg RECTAL DAILY PRN PRN (Reason: Constipation) divalproex [Depakote Sprinkles] 125 MG capsule, delayed rel sprinkle 125 mg PO Q8H aripiprazole 5 MG tablet 5 mg PO QHS Cepacol Sore Throat (dylan-men) 1 EACH lozenge 1 blaire buccal PRN PRN (Reason: Sore Throat) acetaminophen [Tylenol] 325 MG tablet 650 mg PO Q4H PRN (Reason: Headache) polyethylene glycol 3350 17 GM powder in packet 17 g PO DAILY lithium carbonate 300 MG tablet extended release 300 mg PO BID haloperidol 1 MG tablet 1 mg PO TID guaifenesin 10 ML liquid 10 ml PO Q4H PRN PRN (Reason: Cough) magnesium hydroxide 30 ML suspension 30 ml PO DAILY PRN PRN (Reason: Constipation) tamsulosin [Flomax] 0.4 MG capsule 0.4 mg PO DAILY fludrocortisone 0.1 MG tablet 0.05 mg PO DAILY@0800 lorazepam [Ativan] 0.5 mg tablet 0.5 mg [...] 5 mg tablet 5 mg PO DAILY atorvastatin 40 mg tablet 40 mg PO QHS lorazepam 1 mg tablet 1 mg PO TID melatonin 3 mg capsule 6 mg PO QHS Nicotrol 10 mg cartridge 1 inh inhalation Q2H PRN (Reason: nicotine cravings) nicotine (polacrilex) 2 mg lozenge 2 mg mucous membrane Q2H PRN (Reason: nicotine cravings) paroxetine HCl 20 mg tablet 20 mg PO DAILY benztropine 1 mg tablet 1 mg PO BID aripiprazole 10 mg tablet 10 mg PO DAILY calcium carbonate [Calcium 500] 500 mg calcium (1,250 mg) tablet,chewable 500 mg PO BID cholecalciferol (vitamin D3) [Vitamin D3] 50 mcg (2,000 unit) tablet 4,000 unit PO DAILY Changed lactulose [Enulose] 10 gram/15 mL solution 20 g PO TID 30 Days Qty: 0 0RF Discontinued alum-mag hydroxide-simeth [Mag-Al Plus Extra Strength] 30 ML suspension 30 ml PO Q4H PRN PRN (Reason: Indigestion) docusate sodium [Col-Rite] 100 mg capsule 100 mg PO DAILY propranolol 80 mg tablet 80 mg PO BID loperamide 2 mg tablet 4 mg PO .COMPLEX PRN (Reason: loose stool) Rx Instructions: 4 mg orally give 2 tablets by mouth as needed for loose stool may give 1 tablet PO after each subsequent stool. DO NOT exceed 4 tablets in 24 hours PRN; paroxetine HCl [Paxil] 20 mg tablet 20 mg PO DAILY Referrals / Follow Up: Lupillo Porras DO [Med Staff - Active Staff] - Amauri Hermosillo DO [Med Staff - Active Staff] - Within 2 Weeks Laci Jackson MD [Med Staff - Active Staff] - Within 1 Month Ashley Dickey MD [Primary Care Provider] - Within 2 Weeks Josh,Elizabeth, HEALTH INFORMATICS INSTRUCTOR-C [Med Staff - Adv Practice Prof] - Within 2 Weeks Disposition Disposition (needs filled in before D/C Order can be placed): [facility] Facility 08/27/24 1257 <Electronically signed by Marciano Guerin MD> Cosigner Signature (if applicable): CC: Dr. Marciano Guerin MD; Dr. Ashley Dickey MD~ Signed ADDENDUM by Dr. Marciano Guerin MD on 08/27/24 at 1301 Addendum Seen and examined on the day of discharge Mental status better. Chronic garbled speech but overall is stated that he is feeling better and moving bowel. Patient was admitted with hypotension generalized weakness and altered mental status possible due to septic shock. Unclear how he fractured his left hip but he complained of left hip and not able to flex. Mild low-grade grade fever. Could not tell about dysuria or other symptoms. Physical exam General: Awake, orientation cannot be ascertained, intermittent agitation and restlessness during nighttime. HEENT: Atraumatic, PERRLA, EOMI, Normocephalic. Oral: No Gingival or Mucosal Lesions/ Ulcerations Neck: Supple, No JVD, Negative Carotid Bruits Chest wall/Lungs: Air entry diminished in bilateral lung bases. No crepitation/rhonchi Cardiovascular: Regular rate and rhythm, Normal S1,S2, systolic murmur Abdomen: Moving bowel, chronic constipation. Bowel Sounds sluggish, soft, Non Tender, Non-Distended : Mills catheter no renal angle tenderness. No suprapubic tenderness. Extremities: No edema, Capillary Refill Less than 3 Seconds Skin: No rashes, No breakdown Musculoskeletal: Tenderness over left hip, flexed deformity. No Tenderness to Palpation of other joints or Extremities Neurological: Does not follow command. Psychiatric: Schizoaffective disorder. Bipolar disorder. History of anoxic brain injury Discharge medication reconciliation done. Discharge follow-up instructions completed. Discharge process discussed with the patient and all questions wereanswered to patient's satisfaction. Follow with PCP in 1 to 2 weeks Total time spent, exact 35 minutes on discharge meds reconciliation, examination, coordination of care with nurses and ancillary staff, review of imaging and blood test and discussion with the patient on follow-up instructions. 08/27/24 1301<Electronically signed by Marciano Guerin MD> Cosigner Signature (if applicable): cc: Dr. Marciano Guerin MD; Dr. Ashley Dickey MD ~* Signed [facility] Work Phone: [phone] Discharge summary Author Marciano Guerin [facility] Note Date/Time August 27, 2024 12:5 5pm [facility] Medical Records Department [address] [place] [address] Transfer to [facility] Care MR#: [id number] Acct: [id number] Name: NANDO OCHOA Rep #:[id number] : 1960 63 From: Marciano Saeed PCP: Dr. Ashley Dickey MD Status:ADM IN Certification of patient admission REQUIRED AT TIME OF ADMISSION. I CERTIFY THAT POST-HOSPITAL ECF SERVICES ARE REQUIRED TO BE GIVEN ON AN IN-PATIENT BASIS BECAUSE OF THE ABOVE NAMED PATIENT'S NEED FOR [facility] CARE ON A CONTINUING BASIS FOR THE CONDITION(S) FOR WHICH HE/SHE WAS RECEIVINGIN-PATIENT HOSPITAL SERVICES PRIOR TO HIS/HER TRANSFER TO THE F. 08/27/24 1255<Electronically signed by Marciano Guerin MD> Diet Diet Order/Speech Therapy: INPATIENT Hospital Diet / Speech Therapy Order(s) 08/24/24 14:26 Diet: Regular - General Food consistency:: Pureed Liquid Consistency:: Regular/Thin Routine Orders/Code Status Routine Lab Work: CBC (Q. weekly), BMP (Q. weekly) and - (LFT Q weekly while on IV vancomycin. ) DC O2, CPAP, BIPAP needs Home O2 Discharge instructions: No Wound(s) left hip: Wound Type: Surgical Incision left good: Wound Type: Abrasion Problem/Diagnosis (1) Acute metabolic encephalopathy: Status: Acute Code(s): G93.41 - Metabolic encephalopathy (2) MRSA bacteremia: Status: Acute Code(s): R78.81 - Bacteremia; B95.62 - Methicillin resistant Staphylococcus aureus infection as the cause of diseases classified elsewhere (3) Constipation: Status: Acute Code(s): K59.00 - Constipation, unspecified (4) Hip fracture: Status: Acute Code(s): S72.009A - Fracture of unspecified part of neck of unspecified femur, initial encounter for closed fracture Plan Patient is a 63-year-old male who presented to [facility] ED on 08/18/2024 with altered mental status and hypotension. 1. Sepsis secondary to MRSA bacteremia with unclear source, concern for UTI ? ID following. Met sepsis criteria on admission with hypotension, fevers and acute metabolic encephalopathy in setting of infection of unclear source. Bloodculture positive for MRSA, unclear source. Urine culture with small growth of bacteria. CT abdomen pelvis showed stercoral colitis. TTE on 08/19 with no overt signs of endocarditis. DARREN on 08/24 was also unremarkable. Repeat blood cultures ordered on 08/23 and remain pending. Continue IV vancomycin and meropenem for now. Appreciate further ID recommendations. 08/26: Repeat blood culture on 08/23 negative. DARREN negative for vegetation. EF 60%. Bubble contrast study negative for PFO/ASD. Mild AI. PICC line and 6 weeks of IV vancomycin. Stop date 10/04/2024 with weekly labs and ID follow-up in3 to 4 weeks. 2. Acute metabolic encephalopathy in setting of history of anoxic brain injury,schizoaffective disorder and cognitive impairment ? CT brain unremarkable. Suspected multifactorial from infection as above and possibly polypharmacy. Encephalopathy was improving during hospitalization but on 08/23, patient was alert but not answering questions appropriately for me. Continue home p.o. Abilify and benztropine. Treating with IV Keppra while inpatient. [place] level normal but will defer to nephrology on when safe to resume lithium. Notably trying to minimize oral medications as patient has severe constipation with fecalith as below. 08/27: Patient is on baseline mental function with history of schizoaffective disorder and cognitive impairment. Patient was put back on his home medications of Haldol 1 mg 3 times daily, divalproex 125 mg 3 times daily. 3. Left hip fracture with acute on chronic debility ? Orthopedic surgery following. S/p left hip cephalomedullary fixation on 08/20. Patient tolerated procedure well, no intraoperative complications. Treating postoperative pain with IV Toradol as needed; notably trying to minimize opiatesas able. 08/27: Follow-up with the hip surgeon Dr. Hermosillo 4. Severe impacted fecalith and stercoral colitis, improving ? GI following. CT abdomen pelvis on 08/19 showed moderate amount of stool in the large bowel suggestive of constipation with associated mild stercoral colitis of the rectosigmoid colon. Initially treated with enemas as well as lactulose, senna and Dulcolax suppositories. Patient did have some small bowel movements noted with this. S/p EGD on 08/23 with NG tube placement. Plan was for GoLytely through the feeding tube in preparation for colonoscopy on 08/24; however patient unfortunately pulled the feeding tube out on the evening of 08/23. He notably did receive some of the GoLytely. Patient has now had significant improvement in bowel movements with improvement in abdominal distention and discomfort. Continue regular diet with pur?ed solids and thin liquids. Will hold bowel regimen for now, can restart as needed. 08/26: Patient moving bowel. Severe hypokalemia, IV potassium phosphate ordered 08/27: Patient did start bowel movement. Follow-up in GI office 5. Chronic oral dysphagia ? Speech therapy following. Patient with severe oral dysphagia and mild pharyngeal dysphagia noted on prior MBSS in 2023. Recommendation on this admission was for pur?ed solids with thin liquids and will continue this diet for now. 6. Chronic adrenal insufficiency ? There was initially concern for acute on chronic adrenal insufficiency and patient was on IV hydrocortisone for this. However with improvement in blood pressure with IV fluid resuscitation and improvement in sodium level, hydrocortisone was discontinued. Continue home p.o. hydrocortisone and fludrocortisone. Chronic medical conditions: ? Hypertension: Holding home propranolol for now. ? Hyperlipidemia: Continue home statin. ? Asthma/COPD: Stable on room air, not in acute exacerbation. Continue home inhalers. ? Chronic tobacco dependency: Nicotine patch in place per patient request. Discussed cessation on discharge. ? Seizure disorder: Continue IV Keppra as noted above. ? BPH with obstructive symptoms: Continue on Flomax. ? Chronic normocytic anemia: Hemoglobin stable between 7.5-8 for the past several days. Continue to monitor CBC daily. DVT prophylaxis: Eliquis 2.5 mg twice daily CODE STATUS: Full code, unverified Discharge medication reconciliation done. Discharge follow-up instructions completed. Discharge process discussed with the patient and all questions wereanswered to patient's satisfaction. Follow with PCP in 1 to 2 weeks Total time spent, exact 35 minutes on discharge meds reconciliation, examination, coordination of care with nurses and ancillary staff, review of imaging and blood test and discussion with the patient on follow-up instructions. Allergies/Procedures Done in Hospital Allergies ciprofloxacin (From Cipro) Adverse Reaction (Verified 11/12/15 19:37) Hives codeine Adverse Reaction (Verified 11/12/15 19:37) Hives Penicillins Adverse Reaction (Verified 11/12/15 19:37) Hives sulfamethoxazole (From Bactrim) Adverse Reaction (Verified 11/12/15 19:37) Hives trimethoprim (From Bactrim) Adverse Reaction (Verified 11/12/15 19:37) Hives Type of Care/Length of Stay Estimated LOS: Convalescent Care Less Than 30 days Type of Care Needed: Intermediate Rehab Potential: Fair Prognosis: Fair Additional Orders/Day of Discharge Day of Discharge: 08/27/24 Dietary and Speech Recommendations Dietitian Recommendations/Changes: Continue Regular diet with texture/consistency per ZINC PLATE CUTTER/MD to manage swallowing difficulties. Discharge Plan Admission Admit Date/Time: 08/19/24 00:04 Primary Reason for Your Visit: Acute encephalopathy, sepsis, left hip fracture Attending Provider: Marciano Guerin Primary Care Provider: Ashley Dickey Consulting Providers: Robert Huizar; Amauri Hermosillo; Marciano Guerin; Laci Jackson; Jonnathan Campuzano; Devin Bates; Scott Blandon; Lupilol Porras; Robert Fitch; Edwin Espinal; Kt Garcia; Antonia Parsons; Jose Johnson; Alok Germain; William Leon; Sanjuana Wasserman; Tomer Hawkins; Kassi Hamilton; Dominic Hamilton; Beltran Dubois; Jj Lutz; Winston Steel; Yazan Cortés; Allen Dunham; Braulio Mitchell; Cb Amor; Yann Ji; Redd Laughlin Discharge Orders/Prescriptions Prescriptions: New vancomycin in dextrose 5 % 1 gram/200 mL Piggyback 1,000 mg IV Q12H 39 Days Qty: 10454 0RF Rx Instructions: stop date 10/04/24. Dx: MRSA bacteremia. Weekly bmp, cbc, and vanc trough. Fax to [phone]. Routine picc care per protocol. oxycodone 5 mg Tablet 2.5 mg PO Q4H PRN PRN (Reason: Pain Score 4-10) 3 Days Qty: 7 0RF Eliquis 5 mg Tablet 2.5 mg PO BID 20 Days Qty: 0 0RF sennosides-docusate sodium [Stimulant Laxative Plus] 8.6-50 mg Tablet 2 tab PO BID Qty: 0 0RF propranolol 10 mg Tablet 20 mg PO BID Qty: 0 0RF pantoprazole 40 mg Tablet,Delayed Release (Dr/Ec) 40 mg PO BID Qty: 0 0RF Continued albuterol sulfate 2.5 MG/3 ML solution for nebulization 2.5 mg inhalation Q6H PRN PRN (Reason: Sob &/Or Wheezing) bisacodyl 10 MG suppository 10 mg RECTAL DAILY PRN PRN (Reason: Constipation) divalproex [Depakote Sprinkles] 125 MG capsule, delayed rel sprinkle 125 mg PO Q8H aripiprazole 5 MG tablet 5 mg PO QHS Cepacol Sore Throat (dylan-men) 1 EACH lozenge 1 blaire buccal PRN PRN (Reason: Sore Throat) acetaminophen [Tylenol] 325 MG tablet 650 mg PO Q4H PRN (Reason: Headache) polyethylene glycol 3350 17 GM powder in packet 17 g PO DAILY lithium carbonate 300 MG tablet extended release 300 mg PO BID haloperidol 1 MG tablet 1 mg PO TID guaifenesin 10 ML liquid 10 ml PO Q4H PRN PRN (Reason: Cough) magnesium hydroxide 30 ML suspension 30 ml PO DAILY PRN PRN (Reason: Constipation) tamsulosin [Flomax] 0.4 MG capsule 0.4 mg PO DAILY fludrocortisone 0.1 MG tablet 0.05 mg PO DAILY@0800 lorazepam [Ativan] 0.5 mg tablet 0.5 mg [...] 5 mg tablet 5 mg PO DAILY atorvastatin 40 mg tablet 40 mg PO QHS lorazepam 1 mg tablet 1 mg PO TID melatonin 3 mg capsule 6 mg PO QHS Nicotrol 10 mg cartridge 1 inh inhalation Q2H PRN (Reason: nicotine cravings) nicotine (polacrilex) 2 mg lozenge 2 mg mucous membrane Q2H PRN (Reason: nicotine cravings) paroxetine HCl 20 mg tablet 20 mg PO DAILY benztropine 1 mg tablet 1 mg PO BID aripiprazole 10 mg tablet 10 mg PO DAILY calcium carbonate [Calcium 500] 500 mg calcium (1,250 mg) tablet,chewable 500 mg PO BID cholecalciferol (vitamin D3) [Vitamin D3] 50 mcg (2,000 unit) tablet 4,000 unit PO DAILY Changed lactulose [Enulose] 10 gram/15 mL solution 20 g PO TID 30 Days Qty: 0 0RF Discontinued alum-mag hydroxide-simeth [Mag-Al Plus Extra Strength] 30 ML suspension 30 ml PO Q4H PRN PRN (Reason: Indigestion) docusate sodium [Col-Rite] 100 mg capsule 100 mg PO DAILY propranolol 80 mg tablet 80 mg PO BID loperamide 2 mg tablet 4 mg PO .COMPLEX PRN (Reason: loose stool) Rx Instructions: 4 mg orally give 2 tablets by mouth as needed for loose stool may give 1 tablet PO after each subsequent stool. DO NOT exceed 4 tablets in 24 hours PRN; paroxetine HCl [Paxil] 20 mg tablet 20 mg PO DAILY Referrals / Follow Up: Ashley Dickey MD [Primary Care Provider] - Within 2 Weeks Lupillo Porras DO [Med Staff - Active Staff] - Laci Jackson MD [Med Staff - Active Staff] - Within 1 Month Disposition Disposition (needs filled in before D/C Order can be placed): Custodial Facility (4) Hip fracture Qualifiers: Encounter type: initial encounter Fracture type: closed Laterality: left Qualified Code(s): S72.002A - Fracture of unspecified part of neck of left femur, initial encounter for closed fracture 08/27/24 4905 <Electronically signed by Marciano Guerin MD> Cosigner Signature (if applicable): CC: Dr. Devin Bates MD; Dr. Redd Laughlin DO; Dr. Jonnathan Campuzano MD; Dr. Scott Blandon MD; Dr. Robert Fitch MD; Dr. Robert Huizar DO; Dr. Carlos A DO; Dr. Edwin Espinal MD; Dr. Kt Garcia MD; Dr. Jose Johnson MD;Dr. Alok Germain MD; Dr. Amauri Hermosillo DO; Dr. William Leon MD; Dr. Sanjuana Wasserman MD; Dr. Tomer Hawkins MD; Dr. Kassi Hamilton MD; Dr. Beltran Dubois MD;Dr. Marciano Guerin MD; Dr. Dominic Hamilton MD; Dr. Laci Jackson MD; Dr. Jj Lutz MD; Dr. Allen Dunham MD; Dr. Yazan Cortés MD; Dr. Winston Steel DO;Dr. Ashley Dickey MD; Dr. Braulio Mitchell DO; Dr. Cb Amor MD; Dr. Yann Ji MD; Dr. Antonia Parsons MD ~ [facility] Work Phone: [phone] 182-560906-27-2025 Consult note Author Wilver Negron [facility] Note Date/Time August 27, 2024 10:5 6am [facility] Medical Records Department [address] [place] [address] Pharmacokinetic/Renal -Consult 08/26/24 1819 MR#: [id number] Acct: [id number] Name: NANDO OCHOA Rep #:[id number] : 1960 63 From: Wilver Negron PCP: Dr. Ashley Dickey MD Status:ADM IN Location: [place] [address] Consult Antibiotic Management Pharmacy has been consulted to manage selected antibiotic: Vancomycin Type of Intervention Type of Consult: Follow-up Suspected Infection Suspected Infection: Bacteremia Prior Doses of Antibiotics Prior Doses of Antibiotics Received/Current Regimen: Vancomycin 1000 mg IV Q12H last given 08/26/24 @ 0500 Labs Labs: Sodium 145 mmol/L (133-145) 08/26/24 07:03 Potassium 2.7 mmol/L (3.3-5.1) L* 08/26/24 07:03 Chloride 115 mmol/L (98-108) H 08/26/24 07:03 Carbon Dioxide 22.9 mmol/L (21.0-32.0) 08/26/24 07:03 Anion Gap 8 (5-15) 08/26/24 07:03 BUN 9 mg/dL (4-19) 08/26/24 07:03 Creatinine 0.78 mg/dL (0.70-1.20) 08/26/24 07:03 Est GFR (MDRD) Non-Af 100 (>60) 08/26/24 07:03 BUN/Creatinine Ratio 11.2 RATIO (10-20) 08/26/24 07:03 Glucose 110 mg/dL (70-99) H 08/26/24 07:03 Vancomycin Trough 18.9 ug/mL (5.0-15.0) H 08/26/24 16:34 Microbiology Microbiology: Microbiology 08/24/24 11:23 Blood Culture (Wb) - Anticubital Right Blood Culture - Preliminary No growth in 48 hours. 08/18/24 18:59 Urine, Catheterized Urine Culture - Final Corynebacterium jeikeium Aerococcus urinae Enterococcus raffinosus 08/23/24 13:39 Blood Culture (Wb) - Right Hand Blood Culture - Preliminary No growth in 48 hours. 08/18/24 18:54 Blood Culture (Wb) - Anticubital Left Blood Culture - Final Meth. resistant Staph. aureus 08/18/24 18:50 Blood Culture (Wb) - Anticubital Right Blood Culture - Final No growth in 5 days. 08/21/24 15:11 Nasal Secretion MRSA (PCR) - Final 08/19/24 01:35 Mucosa - Nasopharyngeal Respiratory Panel (PCR) - Final Dosing Weight Weight used for dosin kg Estimated Creatinine Clearance Estimated Creatinine Clearance: ~ 97 Goal Trough Goal Trough: 15-20 mcg/mL Pharmacy Plan for Drug Dosing Pharmacy Plan for Drug Dosing: Vancomycin trough = 18.9, continue current dosing, trough in 4 days. Pharmacy Service will continue to monitor and adjust dosing as required. Follow-Up Labs Follow-Up Labs: Trough: Vancomycin Date/Time Labs Ordered Labs to be done on [date and time ordered]: 08/30/24 @ 1630 08/26/24 1820 <Electronically signed by Wilver feliciano> Date _ Wilver Monroeer 08/27/24 1056 <Electronically signed by Laci choudhary MD> Cosigner Signature (if applicable): Date Laci Jackson MD CC: ~ Signed [facility] Work Phone: 1(152) 253-729506-27-2025 [facility]06-26-2025 Progress note Author Marciano Guerin [facility] Note Date/Time August 26, 2024 4:19 pm [facility] Medical Records Department [address] [facility] [place] [address] Progress Note - Hospitalist 08/26/24 1614 MR#: [id number] Acct: [id number] Name: NANDO OCHOA Rep #:[id number] : 1960 63 From: Marciano Saeed PCP: Dr. Ashley Dickey MD Status:ADM IN Location: [place] [address] Reason for Visit Reason for Visit: Diagnoses Sepsis, unspecified organism (08/19/24) Methicillin resistant Staphylococcus aureus infection as the cause of diseases classified elsewhere (08/19/24) Unspecified dementia, unspecified severity, with agitation (08/19/24) Schizoaffective disorder, unspecified (08/19/24) Depression, unspecified (08/19/24) Anxiety disorder, unspecified (08/19/24) Metabolic encephalopathy (08/19/24) Constipation, unspecified (08/19/24) Ulcer of intestine (08/19/24) Acute cystitis without hematuria (08/19/24) Other abnormalities of breathing (08/19/24) Severe sepsis with septic shock (08/19/24) Bacteremia (08/19/24) Fracture of unspecified part of neck of left femur, initial encounter for closedfracture (08/19/24) Displaced intertrochanteric fracture of left femur, initial encounter for closedfracture (08/19/24) Personal history of other mental and behavioral disorders (08/19/24) Personal history of other diseases of the nervous system and sense organs (08/19/24) Objective Data Objective Data Vital Signs: Vital Signs Temp Pulse Resp BP Pulse Ox O2 Del Method O2 Flow Rate 97.3 F L 57 L 16 117/70 96 Room Air 2 08/26/24 15:32 08/26/24 15:32 08/26/24 15:32 08/26/24 15:32 08/26/24 15:32 08/26/24 15:32 08/25/24 07:35 Oxygen Flow Rate (L/min) 2 Oxygen Delivery Method Room Air Weight: 156 lb 11.979 oz Body Mass Index (BMI) 22.4 Intake & Output: Intake and Output for Last 24 Hours 08/24/24 08/25/24 08/26/24 23:59 23:59 23:59 Intake Total 2698.25 / 2698.25 1420 / 1670 810 / 810 Balance 2698.25 / 2698.25 1420 / 1670 810 / 810 Lab / Micro Data 08/26/24 07:03 08/26/24 07:03 Labs: Laboratory Results - last 24 hr 08/26/24 07:03: WBC 3.9 L, RBC 2.44 L, Hgb 7.4 L, Hct 22.3 L, MCV 91.4, MCH 30.3, MCHC 33.2, RDW Std Deviation 42.0, RDW Coeff of Eyal 12.7, Plt Count 124 L,MPV 10.3, Sodium 145, Potassium 2.7 L*, Chloride 115 H, Carbon Dioxide 22.9, Anion Gap 8, BUN 9, Creatinine 0.78, Estim Creat Clear Calc 97.48, Est GFR (MDRD) Non-Af 100, BUN/Creatinine Ratio 11.2, Glucose 110 H, Calcium 8.0, Phosphorus 2.5 L Micro: Microbiology 08/24/24 11:23 Blood Culture (Wb) - Anticubital Right Blood Culture - Preliminary No growth in 48 hours. 08/18/24 18:59 Urine, Catheterized Urine Culture - Final Corynebacterium jeikeium Aerococcus urinae Enterococcus raffinosus 08/23/24 13:39 Blood Culture (Wb) - Right Hand Blood Culture - Preliminary No growth in 48 hours. 08/18/24 18:54 Blood Culture (Wb) - Anticubital Left Blood Culture - Final Meth. resistant Staph. aureus 08/18/24 18:50 Blood Culture (Wb) - Anticubital Right Blood Culture - Final No growth in 5 days. 08/21/24 15:11 Nasal Secretion MRSA (PCR) - Final 08/19/24 01:35 Mucosa - Nasopharyngeal Respiratory Panel (PCR) - Final Physical Exam Narrative Seen and examined. Mental status better. Chronic garbled speech but overall is stated that he is feeling better and moving bowel. Patient was admitted with hypotension generalized weakness and altered mental status possible due to septic shock. Unclear how he fractured his left hip but he complained of left hip and not able to flex. Mild low-grade grade fever. Could not tell about dysuria or other symptoms. Physical exam General: Awake, orientation cannot be ascertained, intermittent agitation and restlessness during nighttime. HEENT: Atraumatic, PERRLA, EOMI, Normocephalic. Oral: No Gingival or Mucosal Lesions/ Ulcerations Neck: Supple, No JVD, Negative Carotid Bruits Chest wall/Lungs: Air entry diminished in bilateral lung bases. No crepitation/rhonchi Cardiovascular: Regular rate and rhythm, Normal S1,S2, systolic murmur Abdomen: Moving bowel, chronic constipation. Bowel Sounds sluggish, soft, Non Tender, Non-Distended : Mills catheter no renal angle tenderness. No suprapubic tenderness. Extremities: No edema, Capillary Refill Less than 3 Seconds Skin: No rashes, No breakdown Musculoskeletal: Tenderness over left hip, flexed deformity. No Tenderness to Palpation of other joints or Extremities Neurological: Does not follow command therefore complete neuroexam unobtainable. No obvious focal lateralizing sign Psych/Mental Status: Flat affect, schizophrenia Assessment & Plan Assessment/Plan (1) Acute metabolic encephalopathy: (2) MRSA bacteremia: (3) Constipation: PLAN: Plan Patient is a 63-year-old male who presented to [facility] ED on 08/18/2024 with altered mental status and hypotension. 1. Sepsis secondary to MRSA bacteremia with unclear source, concern for UTI ? ID following. Met sepsis criteria on admission with hypotension, fevers and acute metabolic encephalopathy in setting of infection of unclear source. Bloodculture positive for MRSA, unclear source. Urine culture with small growth of bacteria. CT abdomen pelvis showed stercoral colitis. TTE on 08/19 with no overt signs of endocarditis. DARREN on 08/24 was also unremarkable. Repeat blood cultures ordered on 08/23 and remain pending. Continue IV vancomycin and meropenem for now. Appreciate further ID recommendations. 08/26: Repeat blood culture on 08/23 negative. DARREN negative for vegetation. EF 60%. Bubble contrast study negative for PFO/ASD. Mild AI. PICC line and 6 weeks of IV vancomycin. Stop date 10/04/2024 with weekly labs and ID follow-up in3 to 4 weeks. 2. Acute metabolic encephalopathy in setting of history of anoxic brain injury,schizoaffective disorder and cognitive impairment ? CT brain unremarkable. Suspected multifactorial from infection as above and possibly polypharmacy. Encephalopathy was improving during hospitalization but on 08/23, patient was alert but not answering questions appropriately for me. Continue home p.o. Abilify and benztropine. Treating with IV Keppra while inpatient. [place] level normal but will defer to nephrology on when safe to resume lithium. Notably trying to minimize oral medications as patient has severe constipation with fecalith as below. 3. Left hip fracture with acute on chronic debility ? Orthopedic surgery following. S/p left hip cephalomedullary fixation on 08/20. Patient tolerated procedure well, no intraoperative complications. Treating postoperative pain with IV Toradol as needed; notably trying to minimize opiatesas able. 4. Severe impacted fecalith and stercoral colitis, improving ? GI following. CT abdomen pelvis on 08/19 showed moderate amount of stool in the large bowel suggestive of constipation with associated mild stercoral colitis of the rectosigmoid colon. Initially treated with enemas as well as lactulose, senna and Dulcolax suppositories. Patient did have some small bowel movements noted with this. S/p EGD on 08/23 with NG tube placement. Plan was for GoLytely through the feeding tube in preparation for colonoscopy on 08/24; however patient unfortunately pulled the feeding tube out on the evening of 08/23. He notably did receive some of the GoLytely. Patient has now had significant improvement in bowel movements with improvement in abdominal distention and discomfort. Continue regular diet with pur?ed solids and thin liquids. Will hold bowel regimen for now, can restart as needed. 08/26: Patient moving bowel. Severe hypokalemia, IV potassium phosphate ordered 5. Chronic oral dysphagia ? Speech therapy following. Patient with severe oral dysphagia and mild pharyngeal dysphagia noted on prior MBSS in 2023. Recommendation on this admission was for pur?ed solids with thin liquids and will continue this diet for now. 6. Chronic adrenal insufficiency ? There was initially concern for acute on chronic adrenal insufficiency and patient was on IV hydrocortisone for this. However with improvement in blood pressure with IV fluid resuscitation and improvement in sodium level, hydrocortisone was discontinued. Continue home p.o. hydrocortisone and fludrocortisone. Chronic medical conditions: ? Hypertension: Holding home propranolol for now. ? Hyperlipidemia: Continue home statin. ? Asthma/COPD: Stable on room air, not in acute exacerbation. Continue home inhalers. ? Chronic tobacco dependency: Nicotine patch in place per patient request. Discussed cessation on discharge. ? Seizure disorder: Continue IV Keppra as noted above. ? BPH with obstructive symptoms: Continue on Flomax. ? Chronic normocytic anemia: Hemoglobin stable between 7.5-8 for the past several days. Continue to monitor CBC daily. DVT prophylaxis: Eliquis 2.5 mg twice daily CODE STATUS: Full code, unverified Expected disposition: Likely back to long-term care facility, 1 to 2 days Total clinical time spent by myself addressing the patient's medical issues, reviewing all the data, and collaborating with patient's care team: 35 minutes. Charges/Coding Visit Charges Inpatient E&M: 37128 Subs Hosp L2 08/26/24 1619 <Electronically signed by Marciano Guerin MD> Cosigner Signature (if applicable): CC: ~ Signed [facility] Work Phone: 1(790) 810-171206-26-2025 Progress note Author Laci Jackson [facility] Note Date/Time August 26, 2024 9:55 am [facility] Medical Records Department [address] [place] [address] Progress Note - Infect Disease 08/26/24 0953 MR#: [id number] Acct: [id number] Name: NANDO OCHOA Rep #:[id number] : 1960 63 From: Laci feliciano MD PCP: Dr. Ashley Dickey MD Status:ADM IN Location: [place] [address] Physical Exam Narrative Feeling better, no fever, no new pain Const alert and no apparent distress General Appearance: cooperative Resp normal air movement and clear to auscultation bilaterally Cardio regular rate and regular rhythm GI soft to palpation, non-tender and non-distended Skin no rashes or lesions noted ID ID: Route of nutrition/ use of supplements: [] Nutritional Intake: [] IV Site: [] Mills Catheter: [] Assessment & Plan Assessment/Plan (1) MRSA bacteremia: PLAN: Presented with septic shock due to mrsa bacteremia, unclear source. Ucx with small growth bacteria. CT showed stercoral colitis. Concern for endocarditis given splinter hemorrhages on fingers. Repeat bcx neg since 08/23. DARREN neg for vegetation. Will order picc and 6 weeks iv vanc, stop date 10/04/24 with weekly labs and ID followup in 3-4 weeks. Will follow, wrote rx, d/w caser shoe parts 08/26/24 0015 <Electronically signed by Laci Jackson MD> Cosigner Signature (if applicable): CC: ~ Signed [facility] Work Phone: 1(802) 668-373406-26-2025 Consult note Author Kaveh Ragsdale [facility] Note Date/Time August 26, 2024 9:05 am [facility] Medical Records Department [address] [place] [address] Pharmacokinetic/Renal -Consult 08/24/24 1834 MR#: [id number] Acct: [id number] Name: NANDO OCHOA Rep #:[id number] : 1960 63 From: Kaveh medeiros PCP: Dr. Ashley Dickey MD Status:ADM IN Location: [place] [address] Consult Antibiotic Management Pharmacy has been consulted to manage selected antibiotic: Vancomycin Type of Intervention Type of Consult: Follow-up Prior Doses of Antibiotics Prior Doses of Antibiotics Received/Current Regimen: current dose is 1000mg IV q12h Labs Labs: Sodium 145 mmol/L (133-145) 08/24/24 06:48 Potassium 3.0 mmol/L (3.3-5.1) L 08/24/24 06:48 Chloride 114 mmol/L (98-108) H 08/24/24 06:48 Carbon Dioxide 22.2 mmol/L (21.0-32.0) 08/24/24 06:48 Anion Gap 9 (5-15) 08/24/24 06:48 BUN 14 mg/dL (4-19) 08/24/24 06:48 Creatinine 0.83 mg/dL (0.70-1.20) 08/24/24 06:48 Est GFR (MDRD) Non-Af 98 (>60) 08/24/24 06:48 BUN/Creatinine Ratio 16.4 RATIO (10-20) 08/24/24 06:48 Glucose 103 mg/dL (70-99) H 08/24/24 06:48 Vancomycin Trough 17.5 ug/mL (5.0-15.0) H 08/24/24 17:15 Microbiology Microbiology: Microbiology 08/18/24 18:54 Blood Culture (Wb) - Anticubital Left Blood Culture - Final Meth. resistant Staph. aureus 08/18/24 18:50 Blood Culture (Wb) - Anticubital Right Blood Culture - Final No growth in 5 days. 08/18/24 18:59 Urine, Catheterized Urine Culture - Preliminary Corynebacterium jeikeium Aerococcus urinae GPC Poss Enterococcus sp 08/21/24 15:11 Nasal Secretion MRSA (PCR) - Final 08/19/24 01:35 Mucosa - Nasopharyngeal Respiratory Panel (PCR) - Final Dosing Weight Weight used for dosin.2 kg Estimated Creatinine Clearance Estimated Creatinine Clearance: 93 ml/min Goal Trough Goal Trough: 15-20 mcg/mL Pharmacy Plan for Drug Dosing Pharmacy Plan for Drug Dosing: VANCOMYCIN LEVEL RECEIVED Current Vancomycin Dose: 1000MG Q12H Number of Doses Received: 5 Vancomycin Level: 17.5 Hours Since Last Dose: 12.5 Renal Function: SCr 0.83, CrCl 93 Renal Function Trend: SCr WAS 0.82 AND 0.93 PREVIOUS TWO DAYS Vancomycin Plan/Comments: TROUGH IN GOAL RANGE. IT WOULD HAVE BEEN A LITTLE HIGHER IF DRAWN CLOSER TO THE DESIRED 11.5 HOUR MICHELLE. KEEP SAME DOSE. REPEAT TROUGH IN 2 DAYS AGAIN TO DOUBLECHECK LEVEL SINCE YESTERDAY'S DOSING WAS OFF SCHEDULE DUE TO PATIENT BEING OFF THE MAIN FLOOR FOR HOURS Pending Level: 08/26/24 16:30 Pharmacy Service will continue to monitor and adjust dosing as required. Follow-Up Labs Follow-Up Labs: Trough: Vancomycin Date/Time Labs Ordered Labs to be done on [date and time ordered]: 08/26/24 16:30 08/24/24 1426 <Electronically signed by Kaveh Uribe erg> Date _ Kaveh Ragsdale 08/26/24904 <Electronically signed by Laci choudhary MD> Cosigner Signature (if applicable): Date Laci Jackson MD CC: ~ Signed [facility] Work Phone: 1([phone]) 754-974306-26-2025 Progress note Author [facility] Note Date/Time August 26, 2024 12:1 8am [facility] Medical Records Department [address] [place] [address] Progress Note - Hospitalist 08/26/24 001 MR#: [id number] Acct: [id number] Name: NANDO OCHOA Rep #:[id number] : 1960 63 From: Roxanne More MD PCP: Dr. Ashley Dickey MD Status:ADM IN Location: [place] [address] Hospitalist Note Patient constantly removing telemetry, currently SR, appears VS clinically stable, will change LOC. 08/26/2417 <Electronically signed by Roxanne More MD> Cosigner Signature (if applicable): CC: ~ Signed [facility] Work Phone: 1(286) 231-357606-25-2025 Progress note [address] [facility] Note Date/Time August 25, 2024 4:49 pm [facility] Medical Records Department [address] [place] [address] Progress Note - Hospitalist 08/25/24 1213 MR#: [id number] Acct: [id number] Name: NANDO OCHOA Rep #:[id number] : 1960 63 From: Redd smiley DO PCP: Dr. Ashley Dickey MD Status:ADM IN Location: [place] [address] Reason for Visit Reason for Visit: Diagnoses Sepsis, unspecified organism (08/19/24) Methicillin resistant Staphylococcus aureus infection as the cause of diseases classified elsewhere (08/19/24) Unspecified dementia, unspecified severity, with agitation (08/19/24) Schizoaffective disorder, unspecified (08/19/24) Depression, unspecified (08/19/24) Anxiety disorder, unspecified (08/19/24) Metabolic encephalopathy (08/19/24) Constipation, unspecified (08/19/24) Ulcer of intestine (08/19/24) Acute cystitis without hematuria (08/19/24) Other abnormalities of breathing (08/19/24) Severe sepsis with septic shock (08/19/24) Bacteremia (08/19/24) Fracture of unspecified part of neck of left femur, initial encounter for closedfracture (08/19/24) Displaced intertrochanteric fracture of left femur, initial encounter for closedfracture (08/19/24) Personal history of other mental and behavioral disorders (08/19/24) Personal history of other diseases of the nervous system and sense organs (08/19/24) Subjective Subjective Saw patient at bedside this morning. Patient mentation and energy level appeared improved from previous days. Remains only alert and oriented x 1 to person but this is reportedly his baseline. No other new concerns today. Objective Data Objective Data Vital Signs: Vital Signs Temp Pulse Resp BP Pulse Ox O2 Del Method O2 Flow Rate 96.8 F L 55 L 18 110/57 L 95 Nasal Cannula 2 08/25/24 03:52 08/25/24 03:52 08/25/24 03:52 08/25/24 03:52 08/25/24 07:35 08/25/24 07:35 08/25/24 07:35 Oxygen Flow Rate (L/min) 2 Oxygen Delivery Method Nasal Cannula Weight: 73.4 kg Body Mass Index (BMI) 23.2 Intake & Output: Intake and Output for Last 24 Hours 08/23/24 08/24/24 08/25/24 23:59 23:59 23:59 Intake Total 2573 / 2573 2698.25 / 2698.25 560 / 560 Balance 2573 / 2573 2698.25 / 2698.25 560 / 560 Lab / Micro Data 08/24/24 06:48 08/24/24 06:48 Labs: Laboratory Results - last 24 hr 08/24/24 17:15: Vancomycin Trough 17.5 H 08/25/24 04:44: Ammonia 18.0 Micro: Microbiology 08/18/24 18:59 Urine, Catheterized Urine Culture - Preliminary Corynebacterium jeikeium Aerococcus urinae Enterococcus raffinosus 08/18/24 18:54 Blood Culture (Wb) - Anticubital Left Blood Culture - Final Meth. resistant Staph. aureus 08/18/24 18:50 Blood Culture (Wb) - Anticubital Right Blood Culture - Final No growth in 5 days. 08/21/24 15:11 Nasal Secretion MRSA (PCR) - Final 08/19/24 01:35 Mucosa - Nasopharyngeal Respiratory Panel (PCR) - Final Physical Exam Const alert, no apparent distress and average body habitus Constitutional Narrative: Upper middle-aged male, energy level and mentation improved, alert and oriented x 1 to person only but this is reportedly his baseline, otherwise laying back comfortably in bed and in no acute distress. HEENT head/scalp atraumatic and moist oral mucous membranes Eyes PERRL, EOMs intact bilaterally and conjunctivae normal Resp normal respiratory effort, no use of accessory muscles and clear to auscultationbilaterally Cardio regular rate, regular rhythm and no murmurs GI GI Narrative: Mildly distended but otherwise soft and nontender to palpation. Stable. Extremity Extremity Narrative: Left hip with dressing in place. Assessment & Plan Assessment/Plan (1) Acute metabolic encephalopathy: (2) MRSA bacteremia: (3) Constipation: PLAN: Plan Patient is a 63-year-old male who presented to [facility] ED on 08/18/2024 with altered mental status and hypotension. 1. Sepsis secondary to MRSA bacteremia with unclear source, concern for UTI ? ID following. Met sepsis criteria on admission with hypotension, fevers and acute metabolic encephalopathy in setting of infection of unclear source. Bloodculture positive for MRSA, unclear source. Urine culture with small growth of bacteria. CT abdomen pelvis showed stercoral colitis. TTE on 08/19 with no overt signs of endocarditis. DARREN on 08/24 was also unremarkable. Repeat blood cultures ordered on 08/23 and remain pending. Continue IV vancomycin and meropenem for now. Appreciate further ID recommendations. 2. Acute metabolic encephalopathy in setting of history of anoxic brain injury,schizoaffective disorder and cognitive impairment ? CT brain unremarkable. Suspected multifactorial from infection as above and possibly polypharmacy. Encephalopathy was improving during hospitalization but on 08/23, patient was alert but not answering questions appropriately for me. Continue home p.o. Abilify and benztropine. Treating with IV Keppra while inpatient. [place] level normal but will defer to nephrology on when safe to resume lithium. Notably trying to minimize oral medications as patient has severe constipation with fecalith as below. 3. Left hip fracture with acute on chronic debility ? Orthopedic surgery following. S/p left hip cephalomedullary fixation on 08/20. Patient tolerated procedure well, no intraoperative complications. Treating postoperative pain with IV Toradol as needed; notably trying to minimize opiatesas able. 4. Severe impacted fecalith and stercoral colitis, improving ? GI following. CT abdomen pelvis on 08/19 showed moderate amount of stool in the large bowel suggestive of constipation with associated mild stercoral colitis of the rectosigmoid colon. Initially treated with enemas as well as lactulose, senna and Dulcolax suppositories. Patient did have some small bowel movements noted with this. S/p EGD on 08/23 with NG tube placement. Plan was for GoLytely through the feeding tube in preparation for colonoscopy on 08/24; however patient unfortunately pulled the feeding tube out on the evening of 08/23. He notably did receive some of the GoLytely. Patient has now had significant improvement in bowel movements with improvement in abdominal distention and discomfort. Continue regular diet with pur?ed solids and thin liquids. Will hold bowel regimen for now, can restart as needed. 5. Chronic oral dysphagia ? Speech therapy following. Patient with severe oral dysphagia and mild pharyngeal dysphagia noted on prior MBSS in 2023. Recommendation on this admission was for pur?ed solids with thin liquids and will continue this diet for now. 6. Chronic adrenal insufficiency ? There was initially concern for acute on chronic adrenal insufficiency and patient was on IV hydrocortisone for this. However with improvement in blood pressure with IV fluid resuscitation and improvement in sodium level, hydrocortisone was discontinued. Continue home p.o. hydrocortisone and fludrocortisone. Chronic medical conditions: ? Hypertension: Holding home propranolol for now. ? Hyperlipidemia: Continue home statin. ? Asthma/COPD: Stable on room air, not in acute exacerbation. Continue home inhalers. ? Chronic tobacco dependency: Nicotine patch in place per patient request. Discussed cessation on discharge. ? Seizure disorder: Continue IV Keppra as noted above. ? BPH with obstructive symptoms: Continue on Flomax. ? Chronic normocytic anemia: Hemoglobin stable between 7.5-8 for the past several days. Continue to monitor CBC daily. DVT prophylaxis: Eliquis 2.5 mg twice daily CODE STATUS: Full code, unverified Expected disposition: Likely back to long-term care facility, 1 to 2 days Total clinical time spent by myself addressing the patient's medical issues, reviewing all the data, and collaborating with patient's care team: 35 minutes. Charges/Coding Visit Charges Inpatient E&M: 34768 Subs Hosp L2 08/25/24 1645 <Electronically signed by Redd Laughlin DO> Cosigner Signature (if applicable): CC: ~ Signed [facility] Work Phone: 1(451) 591-491606-25-2025 Progress note Author Jermaine Galdamez [facility] Note Date/Time August 25, 2024 1:55 pm [facility] Medical Records Department [address] [place] [address] Progress Note - Infect Disease 08/25/24 1354 MR#: [id number] Acct: [id number] Name: NANDO OCHOA Rep #:[id number] : 1960 63 From: Jermaine Galdamez MD PCP: Dr. Ashley Dickey MD Status:ADM IN Location: [place] [address] ID ID: Route of nutrition/ use of supplements: [] Nutritional Intake: [] IV Site: [] Mills Catheter: [] Patient is responsive overall clinically stable. No fevers. No cardiopulmonary distress. Currently on vancomycin plus meropenem. Microbiology data reviewed repeat blood cultures are pending. On exam vital signs reviewed remains euthermic. Lungs are clear heart exam S1-S2 no pathologic murmur appreciated abdomen soft nontender Assessment & Plan Assessment/Plan (1) MRSA bacteremia: PLAN: At this time we will continue parenteral antimicrobial therapy. Patient does have pancytopenia. Closely follow repeat blood cultures and laboratory studies 08/25/24 1355 <Electronically signed by Jermaine Galdamez MD> Cosigner Signature (if applicable): CC: ~ Signed [facility] Work Phone: 1(810) 912-337806-25-2025 Progress note Author Roxanne More [facility] Note Date/Time August 25, 2024 3:58 am [facility] Medical Records Department [address] [place] [address] Progress Note - Hospitalist 08/25/24 035 MR#: [id number] Acct: [id number] Name: NANDO OCHOA Rep #:[id number] : 1960 63 From: Roxanne More MD PCP: Dr. Ashley Dickey MD Status:ADM IN Location: [place] [address] Hospitalist Note SNF called and requested update. Noted he is normally on lactulose for hyperammonemia. Will obtain NH level to be cautious and requested med update. 08/25/24357 <Electronically signed by Roxanne More MD> Cosigner Signature (if applicable): CC: ~ Signed [facility] Work Phone: [phone]) 493-990406-24-2025 Progress note Author Hugo Pacheco [facility] Note Date/Time August 24, 2024 6:42 pm [facility] Medical Records Department [address] [facility] [place] [address] Progress Note 08/24/24 1839 MR#: [id number] Acct: [id number] Name: NANDO OCHOA Rep #:[id number] : 1960 63 From: Hugo Pacheco DO PCP: Dr. Ashley Dickey MD Status:ADM IN Location: [place] [address] Progress Note Patient pulled NG tube out last night. He did get about half of his GoLytely prep. He did have a small bowel movement today. His abdomen is less distended today. Asked to pair to patient. Physical Exam Const alert, oriented x3, no apparent distress and healthy appearing General Appearance: cooperative GI normal to inspection, nondistended, normoactive bowel sounds, soft to palpation,non-tender and non-distended Percussion: normal to percussion Rectal Exam: deferred Assessment & Plan Assessment/Plan (1) Stercoral ulcer of large intestine: (2) Constipation: PLAN: Patient has severe impacted fecalith and stercoral colitis from ascending to rectosigmoid region: CT abdomen reviewed and shows impacted fecalith in theright side colon, stretching of rectosigmoid region and rectum. Soapsuds enema ordered and was unsuccessful. He received drip with neostigmine and that was also unsuccessful. He is status post NG tube placement with half prep of GoLytely. He did have small bowel movement. He will need repeat imaging to seeif the large fecal ball on the right side of the colon has improved. Continue bowel regimen. Visit Charges Inpatient E&M: 48886 Subs Hosp L3 08/24/24 0245 <Electronically signed by Hugo Pacheco DO> Hugo Pacheco DO Cosigner Signature (if applicable): CC: ~ Signed [facility] Work Phone: [phone]) [phone] Progress note Author Redd Laughlin [facility] Note Date/Time August 24, 2024 3:11 pm [facility] Medical Records Department [address] [place] [address] Progress Note - Hospitalist 08/24/24 1137 MR#: [id number] Acct: [id number] Name: NANDO OCHOA Rep #:[id number] : 1960 63 From: Redd smiley DO PCP: Dr. Ashley Dickey MD Status:ADM IN Location: [place] [address]- 1 Reason for Visit Reason for Visit: Diagnoses Sepsis, unspecified organism (08/19/24) Methicillin resistant Staphylococcus aureus infection as the cause of diseases classified elsewhere (08/19/24) Unspecified dementia, unspecified severity, with agitation (08/19/24) Schizoaffective disorder, unspecified (08/19/24) Depression, unspecified (08/19/24) Anxiety disorder, unspecified (08/19/24) Metabolic encephalopathy (08/19/24) Constipation, unspecified (08/19/24) Acute cystitis without hematuria (08/19/24) Other abnormalities of breathing (08/19/24) Severe sepsis with septic shock (08/19/24) Bacteremia (08/19/24) Fracture of unspecified part of neck of left femur, initial encounter for closedfracture (08/19/24) Displaced intertrochanteric fracture of left femur, initial encounter for closedfracture (08/19/24) Personal history of other mental and behavioral disorders (08/19/24) Personal history of other diseases of the nervous system and sense organs (08/19/24) Subjective Subjective Saw patient at bedside this morning. Patient remained somewhat sedated from theIV medications he received for sedation for DARREN. He did open his eyes for me oncommand but was not answering any questions appropriately. Otherwise laying back comfortably in bed. Objective Data Objective Data Vital Signs: Vital Signs Temp Pulse Resp BP Pulse Ox O2 Del Method O2 Flow Rate 97.1 F L 60 16 99/43 L 91 Room Air 2 08/24/24 09:47 08/24/24 09:47 08/24/24 09:47 08/24/24 09:47 08/24/24 09:47 08/24/24 09:47 08/23/24 13:59 Oxygen Flow Rate (L/min) 2 Oxygen Delivery Method Room Air Weight: 72.2 kg Body Mass Index (BMI) 22.8 Intake & Output: Intake and Output for Last 24 Hours 08/22/24 08/23/24 08/24/24 23:59 23:59 23:59 Intake Total 3753.75 / 3753.75 2573 / 2573 1100 / 1100 Balance 3753.75 / 3753.75 2573 / 2573 1100 / 1100 Lab / Micro Data 08/24/24 06:48 08/24/24 06:48 Labs: Laboratory Results - last 24 hr 08/24/24 06:48: WBC 2.7 L, RBC 2.44 L, Hgb 7.4 L, Hct 22.2 L, MCV 91.0, MCH 30.3, MCHC 33.3, RDW Std Deviation 40.2, RDW Coeff of Eyal 12.2, Plt Count 103 L,MPV 10.6, Sodium 145, Potassium 3.0 L, Chloride 114 H, Carbon Dioxide 22.2, Anion Gap 9, BUN 14, Creatinine 0.83, Estim Creat Clear Calc 93.03, Est GFR (MDRD) Non-Af 98, BUN/Creatinine Ratio 16.4, Glucose 103 H, Calcium 8.3, Phosphorus 2.4 L, Magnesium 2.2 Micro: Microbiology 08/18/24 18:54 Blood Culture (Wb) - Anticubital Left Blood Culture - Final Meth. resistant Staph. aureus 08/18/24 18:50 Blood Culture (Wb) - Anticubital Right Blood Culture - Final No growth in 5 days. 08/18/24 18:59 Urine, Catheterized Urine Culture - Preliminary Corynebacterium jeikeium Aerococcus urinae GPC Poss Enterococcus sp 08/21/24 15:11 Nasal Secretion MRSA (PCR) - Final 08/19/24 01:35 Mucosa - Nasopharyngeal Respiratory Panel (PCR) - Final Physical Exam Const alert Constitutional Narrative: Upper middle-aged male, moderately sedated appearing, opened eyes on command butnot answering any questions appropriately, otherwise laying back comfortably in bed. HEENT head/scalp atraumatic and moist oral mucous membranes Eyes PERRL, EOMs intact bilaterally and conjunctivae normal Resp normal respiratory effort, no use of accessory muscles and clear to auscultationbilaterally Cardio regular rate, regular rhythm and no murmurs GI GI Narrative: Mildly distended but otherwise soft and nontender to palpation. Stable. Extremity Extremity Narrative: Left hip with dressing in place. Assessment & Plan Assessment/Plan (1) Acute metabolic encephalopathy: (2) MRSA bacteremia: (3) Constipation: PLAN: Plan Patient is a 63-year-old male who presented to [facility] ED on 08/18/2024 with altered mental status and hypotension. 1. Sepsis secondary to MRSA bacteremia with unclear source, concern for UTI ? ID following. Met sepsis criteria on admission with hypotension, fevers and acute metabolic encephalopathy in setting of infection of unclear source. Bloodculture positive for MRSA, unclear source. Urine culture with small growth of bacteria. CT abdomen pelvis showed stercoral colitis. TTE on 08/19 with no overt signs of endocarditis. DARREN on 08/24 was also unremarkable. Repeat blood cultures ordered on 08/23 and remain pending. Continue IV vancomycin and meropenem for now. Appreciate further ID recommendations. 2. Acute metabolic encephalopathy in setting of history of anoxic brain injury,schizoaffective disorder and cognitive impairment ? CT brain unremarkable. Suspected multifactorial from infection as above and possibly polypharmacy. Encephalopathy was improving during hospitalization but on 08/23, patient was alert but not answering questions appropriately for me. Continue home p.o. Abilify and benztropine. Treating with IV Keppra while inpatient. [place] level normal but will defer to nephrology on when safe to resume lithium. Notably trying to minimize oral medications as patient has severe constipation with fecalith as below. 3. Left hip fracture with acute on chronic debility ? Orthopedic surgery following. S/p left hip cephalomedullary fixation on 08/20. Patient tolerated procedure well, no intraoperative complications. Treating postoperative pain with IV Toradol as needed; notably trying to minimize opiatesas able. 4. Severe impacted fecalith and stercoral colitis ? GI following. CT abdomen pelvis on 08/19 showed moderate amount of stool in the large bowel suggestive of constipation with associated mild stercoral colitis of the rectosigmoid colon. Initially treated with enemas as well as lactulose, senna and Dulcolax suppositories. Patient did have some small bowel movements noted with this. S/p EGD on 08/23 with NG tube placement. Plan was for GoLytely through the feeding tube in preparation for colonoscopy on 08/24; however patient unfortunately pulled the feeding tube out on the evening of 08/23. He notably did receive some of the GoLytely without any bowel movements. Okay for regular diet with pureed solids and thin liquids for now and will continue to monitor bowel movements closely. Appreciate further GI recs. 5. Chronic oral dysphagia ? Speech therapy following. Patient with severe oral dysphagia and mild pharyngeal dysphagia noted on prior MBSS in 2023. Recommendation on this admission was for pur?ed solids with thin liquids and will continue this diet for now. 6. Chronic adrenal insufficiency ? There was initially concern for acute on chronic adrenal insufficiency and patient was on IV hydrocortisone for this. However with improvement in blood pressure with IV fluid resuscitation and improvement in sodium level, hydrocortisone was discontinued. Continue home p.o. hydrocortisone and fludrocortisone. Chronic medical conditions: ? Hypertension: Holding home propranolol for now. ? Hyperlipidemia: Continue home statin. ? Asthma/COPD: Stable on room air, not in acute exacerbation. Continue home inhalers. ? Chronic tobacco dependency: Nicotine patch in place per patient request. Discussed cessation on discharge. ? Seizure disorder: Continue IV Keppra as noted above. ? BPH with obstructive symptoms: Continue on Flomax. ? Chronic normocytic anemia: Hemoglobin stable between 7.5-8 for the past several days. Continue to monitor CBC daily. DVT prophylaxis: Eliquis 2.5 mg twice daily CODE STATUS: Full code, unverified Expected disposition: TBD Total clinical time spent by myself addressing the patient's medical issues, reviewing all the data, and collaborating with patient's care team: 35 minutes. Charges/Coding Visit Charges Inpatient E&M: 24647 Subs Hosp L2 08/24/24 1511 <Electronically signed by Redd Laughlin DO> Cosigner Signature (if applicable): CC: ~ Signed [facility] Work Phone: 1(156) [phone] Progress note Author Laci Jackson [facility] Note Date/Time August 24, 2024 11:2 0am [facility] Medical Records Department [address] [place] [address] Progress Note - Infect Disease 08/24/24 1119 MR#: [id number] Acct: [id number] Name: NANDO OCHOA Rep #:[id number] : 1960 63 From: Laci feliciano MD PCP: Dr. Ashley Dickey MD Status:ADM IN Location: [place] [address] Physical Exam Narrative Sleeping this AM, no fever Const no apparent distress Resp normal air movement and clear to auscultation bilaterally Cardio regular rate and regular rhythm GI soft to palpation, non-tender and non-distended Skin Skin Narrative: no new rash ID ID: Route of nutrition/ use of supplements: [] Nutritional Intake: [] IV Site: [] Mills Catheter: [] Assessment & Plan Assessment/Plan (1) MRSA bacteremia: PLAN: Presented with septic shock due to mrsa bacteremia, unclear source. Ucx with small growth bacteria. CT showed stercoral colitis. Concern for endocarditis given splinter hemorrhages on fingers. Will order repeat bcx. DARREN pending. Cont vanc/christi for now. Will follow 08/24/24 1120 <Electronically signed by Laci Jackson MD> Cosigner Signature (if applicable): CC: ~ Signed [facility] Work Phone: 1(253) 392-135306-23-[address] [facility] Note Date/Time August 23, 2024 4:12 pm [facility] Medical Records Department [address] [facility] [place] [address] Progress Note - Hospitalist 08/23/24 1009 MR#: [id number] Acct: [id number] Name: NANDO OCHOA Rep #:[id number] : 1960 63 From: Redd smiley DO PCP: Dr. Ashley Dickey MD Status:ADM IN Location: [place] [address] Reason for Visit Reason for Visit: Diagnoses Sepsis, unspecified organism (08/19/24) Unspecified dementia, unspecified severity, with agitation (08/19/24) Schizoaffective disorder, unspecified (08/19/24) Depression, unspecified (08/19/24) Anxiety disorder, unspecified (08/19/24) Metabolic encephalopathy (08/19/24) Acute cystitis without hematuria (08/19/24) Other abnormalities of breathing (08/19/24) Severe sepsis with septic shock (08/19/24) Fracture of unspecified part of neck of left femur, initial encounter for closedfracture (08/19/24) Displaced intertrochanteric fracture of left femur, initial encounter for closedfracture (08/19/24) Personal history of other mental and behavioral disorders (08/19/24) Personal history of other diseases of the nervous system and sense organs (08/19/24) Subjective Subjective Saw patient about this morning. Patient was laying back in bed and mildly agitated appearing. He did not make any eye contact with me or answer any questions appropriately for me. Objective Data Objective Data Vital Signs: Vital Signs Temp Pulse Resp BP Pulse Ox O2 Del Method O2 Flow Rate 98.1 F 62 18 115/61 98 Room Air 2 08/23/24 05:00 08/23/24 05:00 08/23/24 05:00 08/23/24 05:00 08/23/24 05:00 08/23/24 05:00 08/22/24 09:09 Oxygen Flow Rate (L/min) 2 Oxygen Delivery Method Room Air Weight: 72.8 kg Body Mass Index (BMI) 22.9 Intake & Output: Intake and Output for Last 24 Hours 08/21/24 08/22/24 08/23/24 23:59 23:59 23:59 Intake Total 1587 / 1587 3753.75 / 3753.75 443 / 443 Output Total 2375 / 2375 Balance -788 / -788 3753.75 / 3753.75 443 / 443 Lab / Micro Data 08/23/24 05:05 08/23/24 05:05 Labs: Laboratory Results - last 24 hr 08/22/24 23:23: Vancomycin Trough 18.2 H 08/23/24 05:05: WBC 3.5 L, RBC 2.56 L, Hgb 7.7 L, Hct 23.7 L, MCV 92.6, MCH 30.1, MCHC 32.5, RDW Std Deviation 41.1, RDW Coeff of Eyal 12.0, Plt Count 99 L, MPV 10.8, Immature Gran % (Auto) 0.300, Neut % (Auto) 63.4, Lymph % (Auto) 21.9,[place] % (Auto) 6.3, Eos % (Auto) 7.8 H, Baso % (Auto) 0.3, Absolute Neuts (auto) 2.2, Absolute Lymphs (auto) 0.76 L, Nucleated RBC % 0, Differential Comment SCANNED, Platelet Estimate MOD DEC, Sodium 143, Potassium 3.1 L, Chloride 114 H,Carbon Dioxide 19.7 L, Anion Gap 9, BUN 18, Creatinine 0.82, Estim Creat Clear Calc 94.95, Est GFR (MDRD) Non-Af 99, BUN/Creatinine Ratio 21.5 H, Glucose 90, Calcium 8.4 Micro: Microbiology 08/18/24 18:59 Urine, Catheterized Urine Culture - Preliminary Gram positive quintin Aerococcus urinae 08/21/24 15:11 Nasal Secretion MRSA (PCR) - Final 08/18/24 18:50 Blood Culture (Wb) - Anticubital Right Blood Culture - Preliminary No growth in 48 hours. 08/18/24 18:54 Blood Culture (Wb) - Anticubital Left Blood Culture - Final Meth. resistant Staph. aureus 08/19/24 01:35 Mucosa - Nasopharyngeal Respiratory Panel (PCR) - Final Physical Exam Const alert Constitutional Narrative: Upper middle-aged male, alert and agitated appearing, not making eye contact with me or answering any questions for me, was otherwise laying back in bed. HEENT head/scalp atraumatic and moist oral mucous membranes Eyes PERRL, EOMs intact bilaterally and conjunctivae normal Resp normal respiratory effort, no use of accessory muscles and clear to auscultationbilaterally Cardio regular rate, regular rhythm and no murmurs GI GI Narrative: Mildly distended but otherwise soft and nontender to palpation. Extremity Extremity Narrative: Left hip with brace in place. Assessment & Plan Assessment/Plan (1) Acute metabolic encephalopathy: (2) MRSA bacteremia: (3) Constipation: PLAN: Plan Patient is a 63-year-old male who presented to [facility] ED on 08/18/2024 with altered mental status and hypotension. 1. Sepsis secondary to MRSA bacteremia with unclear source, concern for UTI ? ID following. Met sepsis criteria on admission with hypotension, fevers and acute metabolic encephalopathy in setting of infection of unclear source. Bloodculture positive for MRSA, unclear source. Urine culture with small growth of bacteria. CT abdomen pelvis showed stercoral colitis. Clinically there is concern for endocarditis given splinter hemorrhages on fingers per ID, however TTE on 08/19 with no overt signs of endocarditis noted. Repeat blood cultures ordered. Continue IV vancomycin and meropenem for now. 2. Acute metabolic encephalopathy in setting of history of anoxic brain injury,schizoaffective disorder and cognitive impairment ? CT brain unremarkable. Suspected multifactorial from infection as above and possibly polypharmacy. Encephalopathy was improving during hospitalization but on 08/23, patient was alert but not answering questions appropriately for me. Continue home p.o. Abilify and benztropine. Treating with IV Keppra while inpatient. [place] level normal but will defer to nephrology on when safe to resume lithium. Notably trying to minimize oral medications as patient has severe constipation with fecalith as below. 3. Left hip fracture with acute on chronic debility ? Orthopedic surgery following. S/p left hip cephalomedullary fixation on 08/20. Patient tolerated procedure well, no intraoperative complications. Treating postoperative pain with IV Toradol as needed; notably trying to minimize opiatesas able. 4. Severe impacted fecalith and stercoral colitis ? GI following. CT abdomen pelvis on 08/19 showed moderate amount of stool in the large bowel suggestive of constipation with associated mild stercoral colitis of the rectosigmoid colon. Initially treated with enemas as well as lactulose, senna and Dulcolax suppositories. Patient did have some small bowel movements noted with this. S/p EGD on 08/23 with feeding tube placement. Plan is for GoLytely through the feeding tube preparation for colonoscopy tomorrow. N.p.o. status. Appreciate further GI recs. 5. Chronic oral dysphagia ? Speech therapy following. Patient with severe oral dysphagia and mild pharyngeal dysphagia noted on prior MBSS in 2023. Recommendation on this admission was for pur?ed solids with thin liquids. Notably is n.p.o. for now asabove. 6. Chronic adrenal insufficiency ? There was initially concern for acute on chronic adrenal insufficiency and patient was on IV hydrocortisone for this. However with improvement in blood pressure with IV fluid resuscitation and improvement in sodium level, hydrocortisone was discontinued. Continue home p.o. hydrocortisone and fludrocortisone. Chronic medical conditions: ? Hypertension: Holding home propranolol for now. ? Hyperlipidemia: Continue home statin. ? Asthma/COPD: Stable on room air, not in acute exacerbation. Continue home inhalers. ? Chronic tobacco dependency: Nicotine patch in place per patient request. Discussed cessation on discharge. ? Seizure disorder: Continue IV Keppra as noted above. ? BPH with obstructive symptoms: Continue on Flomax. ? Chronic normocytic anemia: Hemoglobin stable between 7.5-8 for the past several days. Continue to monitor CBC daily. DVT prophylaxis: Eliquis 2.5 mg twice daily CODE STATUS: Full code, unverified Expected disposition: TBD Total clinical time spent by myself addressing the patient's medical issues, reviewing all the data, and collaborating with patient's care team: 35 minutes. Charges/Coding Visit Charges Inpatient E&M: 08644 Subs Hosp L2 08/23/24 1612 <Electronically signed by Redd Laughlin DO> Cosigner Signature (if applicable): CC: ~ Signed [facility] Work Phone: 1(326) 854-982506-23-2025 Consult note Author Lionel Dean [facility] Note Date/Time August 23, 2024 3:50 pm [facility] Medical Records Department [address] [place] [address] Anesthesia Postop Eval II 08/23/24 1548 MR#: [id number] Acct: [id number] Name: NANDO OCHOA Rep #:[id number] : 1960 63 From: Lionel Saeed PCP: Dr. Ashley Dickey MD Status:ADM IN Y Race: C Location: [place] [address] 9-1 Anesthesia Postop Eval I Sum Postop Eval Completion status Anesthesia document: Postop Eval 1 completed: Yes Anesthesia Postop Eval I Summary Anesthesia Postop Eval I Summary: Anesthesia Postop Eval I: Assessment Summary Airway patent Yes 08/23/24 15:22 SCALLOP CUTTER.APAT Spontaneous unlabored Yes 08/23/24 15:22 SCALLOP CUTTER.APAT respirations Mental status Awake 08/23/24 15:22 SCALLOP CUTTER.APAT nausea No 08/23/24 15:22 SCALLOP CUTTER.APAT Vomiting No 08/23/24 15:22 SCALLOP CUTTER.APAT Anesthesia Postop Eval I: Fluid Summary Crystalloid volume administer 200 08/23/24 15:22 SCALLOP CUTTER.APAT (ml) Colloids volume administered ( ml) Blood Product volume administered (ml) Total IV fluid infused 200 08/23/24 15:22 SCALLOP CUTTER.APAT Anesthesia Postop Eval I: Summary Notes Anesthesia Complication No 08/23/24 15:22 SCALLOP CUTTER.APAT Anesthesia Complication Comment: Post-operative progress note Anesthesia: Postop Eval II Evaluation Mental status: Awake and Uncooperative Pain Level: 0 nausea: No Vomiting: No Progress Note Post-operative progress note: Attempting to pull out NG Tube, requiring soft restraints. Complications Anesthesia Complication: No 08/23/24 1550 <Electronically signed by Lionel Dean MD> Date _ Lionel Dean MD Cosigner Signature: Date CC: ~ Signed [facility] Work Phone: 1(544) 135-541506-23-2025 Consult note Author Elder Clement [facility] Note Date/Time August 23, 2024 3:22 pm [facility] Medical Records Department [address] [place] [address] Anesthesia Postop Eval I 08/23/24 1450 MR#: [id number] Acct: [id number] Name: NANDO OCHOA Rep #:[id number] : 1960 63 From: Elder Clement CRNA PCP: Dr. Ashley Dickey MD Status:ADM IN Y Race: C Location: [place] [address] Anesthesia: Postop Eval I Current Vital Signs Temperature: 98.6 F Pulse Rate: 63 Blood Pressure: 116/58 Respiratory Rate: 16 Pulse Ox: 100 Oxygen Delivery Method: Room Air Assessment Airway patent: Yes Spontaneous unlabored respirations: Yes Mental status: Awake nausea: No Vomiting: No Anesthesia Complication: No Fluid Hydration Crystalloid volume administer (ml): 200 Total IV fluid infused: 200 Progress Note Anesthesia document: Postop Eval 1 completed: Yes 08/23/24 1522 <Electronically signed by Elder morrell CRNA> Date _ Elder Clement CRNA Cosigner Signature: Date CC: ~ Signed [facility] Work Phone: 1(138) 163-960306-23-2025 Progress note Author Hugo Friend [facility] Note Date/Time August 23, 2024 2:44 pm [facility] Medical Records Department [address] [place] [address] Progress Note 08/23/24 1442 MR#: [id number] Acct: [id number] Name: NANDO OCHOA Rep #:[id number] : 1960 63 From: Hugo Pacheco DO PCP: Dr. Ashley Dickey MD Status:ADM IN Location: [place] [address] Progress Note Patient was not able to tolerate prep. So he will get an NG tube placed to hopefully clean his colon out. Physical Exam Const alert, oriented x3, no apparent distress and healthy appearing General Appearance: cooperative GI normal to inspection, nondistended, normoactive bowel sounds, soft to palpation,non-tender and non-distended Percussion: normal to percussion Rectal Exam: deferred Assessment & Plan Assessment/Plan (1) MRSA bacteremia: PLAN: CT showed stercoral colitis. There is possibly concern for endocarditis. Patient being seen by infectious disease. (2) Constipation: PLAN: Patient will undergo EGD with NG tube placement. Patient and patient's POA were explained alternatives, risk and benefits include not withstanding bleeding, infection, sepsis, perforation, need for more urgent . He will have an ASA of 3. Visit Charges Inpatient E&M: 97355 Subs Hosp L2 08/23/24 1444 <Electronically signed by Hugo Pacheco DO> Hugo Pacheco DO Cosigner Signature (if applicable): CC: ~ Signed [facility] Work Phone: 1(450) 732-127706-23-2025 Consult note Author Lionel Dean [facility] Note Date/Time August 23, 2024 1:59 pm [facility] Medical Records Department [address] [place] [address] Pre-Anesthesia Evaluation 08/23/24 1358 MR#: [id number] Acct: [id number] Name: NANDO OCHOA Rep #:[id number] : 1960 63 From: Lionel Saeed PCP: Dr. Ashley Dickey MD Status:ADM IN Y Race: C Location: [place] [address] ASA Classification* ASA Classification ASA Classification: 4 Assessment & Plan Anesthesia* Anesthesia Assessment Anesthesia Assessment: Discussed sedation and/or anesthesia options, risks, benefits, and alternatives with patient/parents/legal guardian/POA. Questions invited. The patient/parents/legal guardian/POA seems to understand and agrees to proceedwith anesthesia plan. Reviewed the physical assessment, medical history, allergy history and patient home medications list prior to surgery/procedure/anesthetic and documented any changes. Performed airway and anesthesia risk assessments. Anesthesia Type Anesthesia Type: MAC History Source History Obtained from:: Patient and Chart Anesthesia Focused Assessment* Temperature: 96.9 F Pulse Rate: 67 Blood Pressure: 128/65 Respiratory Rate: 16 Pulse Ox: 95 Oxygen Delivery Method: Room Air Oxygen Flow Rate (L/min): 2 Airway Assessment Mouth opens: 2 cm Mallampati Score: III Teeth Condition: Missing Neck Range of motion (ROM): Limited ROM Labs Anesthesia Preop lab: CBC WBC 3.5 K/mm3 (4.4-11.0) L 08/23/24 05:05 08/23/24 RBC 2.56 M/mm3 (4.6-6.2) L 08/23/24 05:05 08/23/24 Hgb 7.7 g/dL (13.0-16.5) L 08/23/24 05:05 08/23/24 Hct 23.7 % (40-54) L 08/23/24 05:05 08/23/24 Plt Count 99 K/mm3 (150-450) L 08/23/24 05:05 08/23/24 CHEMISTRY Potassium 3.1 mmol/L (3.3-5.1) L 08/23/24 05:05 08/23/24 Sodium 143 mmol/L (133-145) 08/23/24 05:05 08/23/24 Magnesium 2.7 mg/dL (1.6-2.6) H 05/14/23 06:30 05/14/23 Phosphorus 3.4 mg/dL (2.5-4.9) 05/14/23 06:30 05/14/23 BUN 18 mg/dL (4-19) 08/23/24 05:05 08/23/24 Creatinine 0.82 mg/dL (0.70-1.20) 08/23/24 05:05 08/23/24 Glucose 90 mg/dL (70-99) 08/23/24 05:05 08/23/24 POC Glucose 120 mg/dL (74-106) H 05/13/23 12:43 05/13/23 TSH 1.040 uIU/mL (0.300-4.200) 08/18/24 18:59 08/01 10/25 COAG Pre-Assessment Diagnosis/Proposed Procedure Planned Operative Procedure(s): Left cephalomedullary fracture fixation. Anesthesia History Anesthesia History - osteopathic physician: Anesthesia History - osteopathic physician Hx Hospitalization Any Problems With Anesthesia Cholinesterase deficiency You/Your Family Experience fever (hyperthermia) with Relationship Recent Exposure to Contagious Disease Does patient have nerve stimulator Patient instructed to have device shut off --Does patient have Pacemaker or ICD? When Was Last Pacemaker Check QUESTION #4 FULL TEXT: You/Your Family Experience fever (hyperthermia) with Anesthesia Last Oral Intake Last Oral intake: Last Oral Intake NPO since 00:00 08/20/24 11:44 Meds taken in AM with sips of water? Meds patient instructed to take am of surgery PONV PONV - osteopathic physician: PONV - osteopathic physician Female HX of Motion Sickness HX of N/V After Surgery Non-Smoker Duration of Surgery greater than 60 minutes Number of Risk Factors PONV Score Height & Weight Height & Weight: Anesthesia: Height & Weight Height 5 ft 10 in 08/19/24 11:09 Weight: 72.8 kg 08/23/24 04:45 Body Mass Index (BMI) 22.9 08/23/24 04:45 Respiratory Assessment Respiratory Assessment - osteopathic physician: Respiratory Tract Infection Hx - osteopathic physician Hx Respiratory Tract Infection No 08/20/24 11:44 STOP Sleep Apnea STOP Sleep Apnea - osteopathic physician: STOP Sleep Apnea - osteopathic physician Hx Hypertension Yes 08/21/24 11:38 Hx Sleep Apnea No 08/20/24 14:39 CPAP BIPAP Do you snore loudly (louder No 08/19/24 02:16 than talking or can be heard Do you often feel tired/ No 08/19/24 02:16 fatigued/ sleepy during daytime? Has anyone observed you stop No 08/19/24 02:16 breathing during sleep? STOP Results Negative 08/19/24 02:16 QUESTION #5 FULL TEXT : Do you snore loudly (louder than talking or can be heard through closed doors)? Tobacco Use History Tobacco Use History - osteopathic physician: Tobacco Use History - osteopathic physician Tobacco Use Smoking Status Current every day smoker 08/19/24 02:16 Hx Tobacco Use No 08/19/24 02:16 Years Smoking Packs Smoked per Day Smoking Cessation Date was within the last 15 years Hx Smoking Cessation Date Hx Smoking Cessation Counseling Hematologic Medial History Hematologic Hx - osteopathic physician: Hematologic Medical Hx - cogeneration technician Hx of Blood Transfusion Hx of Transfusion in last 3 Months Date of Last Transfusion (if within last 3 months) Ever experience any problems with transfusion(s)? Specify any problems Hx of Preganancy in last 3 Months Nurse Filling Out Transfusion & Questions: Date: Time: Patient unable to answer at Yes 08/19/24 02:16 this time (ie. confused, unrespo /Reproduction History /Reproductive History - osteopathic physician: /Reproductive Hx- osteopathic physician Hx Now Gestational Age (in weeks): EDC: Hx Hx Para Hx Section SAB Active Medications Active Medications: Current Medications Generic Name Dose Route Start Last Admin Trade Name Freq PRN Reason Stop Dose Admin Acetaminophen 650 mg 08/21/24 10:54 08/22/24 13:06 Acetaminophen 325 Mg Tablet PO 650 mg Q6H PRN PRN Administration Pain 1-10 or Fever Albuterol Sulfate 2.5 mg 08/19/24 01:30 Albuterol 2.5 Mg/3 Ml Vial.Neb. INHALATION Q6H PRN PRN Sob &/Or Wheezing Apixaban 2.5 mg 08/21/24 07:00 08/22/24 22:38 Apixaban 2.5 Mg Tablet ([facility]) PO 2.5 mg BID FRANCISCO Administration Aripiprazole 10 mg 08/22/24 10:00 08/22/24 12:46 Aripiprazole 10 Mg Tablet PO 10 mg DAILY FRANCISCO Administration Protocol Aripiprazole 5 mg 08/22/24 22:00 08/22/24 22:21 Aripiprazole 5 Mg Tablet PO 5 mg QHS FRANCISCO Administration Protocol Atropine Sulfate 1 mg 08/21/24 10:00 Atropine Sulfate 1 Mg/10 Ml Syringe IV X1 PRN HR < 40 WITH NEOSTIGMINE ADMIN Benztropine Mesylate 1 mg 08/22/24 10:00 08/22/24 22:22 Benztropine 2 Mg Tablet PO 1 mg BID FRANCISCO Administration Calcium Carbonate 500 mg 08/20/24 17:00 08/22/24 16:55 Calcium Carbonate 500 Mg Tablet PO 500 mg TIDCM FRANCISCO Administration Cholecalciferol 25 mcg 08/21/24 10:00 08/22/24 10:56 Cholecalciferol (Vit D3) 25 Mcg Tablet (1,000 Units) PO 25 mcg DAILY FRANCISCO Administration Fludrocortisone Acetate 0.05 mg 08/21/24 08:00 08/22/24 10:56 Fludrocortisone Acetate 0.1 Mg Tablet PO 0.05 mg DAILY@0800 FRANCISCO Administration Folic Acid 0.5 mg 08/23/24 08:00 Folic Acid 1 Mg Tablet PO BREAKFAST FRANCISCO Haloperidol Lactate 0.5 mg 08/22/24 10:30 08/23/24 05:06 Haloperidol Lactate 5 Mg/Ml Vial IV 0.5 mg TID FRANCISCO Administration Protocol Hydrocortisone 10 mg 08/22/24 17:00 08/22/24 16:51 Hydrocortisone 10 Mg Tablet PO 10 mg 0800,1700 FRANCISCO Administration Hydrocortisone 5 mg 08/23/24 08:00 Hydrocortisone 10 Mg Tablet PO 0800 FRANCISCO Meropenem 1 gm/ Sodium 120 mls @ 97 mls/hr 08/19/24 10:00 08/23/24 11:37 Chloride IV 97 mls/hr BID FRANCISCO Administration Pantoprazole Sodium 40 mg/ 100 mls @ 330 mls/hr 08/19/24 10:00 08/23/24 11:52 Sodium Chloride IV Infused Q24 FRANCISCO Infusion Sodium Chloride 250 mls @ 15 mls/hr 08/19/24 01:31 08/23/24 08:06 IV Infused .[id number] PRN Infusion Saline Flush Sodium Chloride 250 mls @ 15 mls/hr 08/19/24 01:31 IV .[id number] PRN Additional IVPB Infusion Levetiracetam 1,000 mg in 100 mls @ 400 mls/hr 08/19/24 10:00 08/23/24 11:43 IV Infused Q12 FRANCISCO Infusion Vancomycin IV-PHARMACY TO DOSE 500 mls @ 250 mls/hr 08/21/24 10:00 1 each/ Sodium Chloride IV PRN PRN Rx to Dose Protocol Vancomycin HCl 1,000 mg in 200 mls @ 200 mls/hr 08/22/24 00:00 08/23/24 02:28 Vancomycin IV Infused Q12H FRANCISCO Infusion Lactated Ringer's 1,000 mls @ 15 mls/hr 08/23/24 14:00 IV .Q48H FRANCISCO Ketorolac Tromethamine 15 mg 08/22/24 13:35 08/22/24 15:05 Ketorolac 15 Mg/Ml Vial IV 08/24/24 13:35 15 mg Q8H PRN PRN Administration Pain Score 1-10 Melatonin 10 mg 08/22/24 22:00 08/22/24 22:20 Melatonin 10 Mg Tablet PO 10 mg QHS FRANCISCO Administration Nicotine 7 mg 08/19/24 01:30 08/22/24 09:34 Nicotine 7 Mg Patch TD 7 mg DAILY FRANCISCO Administration Oxycodone HCl 2.5 mg 08/20/24 13:54 08/22/24 13:05 Oxycodone 5 Mg Tablet PO 2.5 mg Q4H PRN PRN Administration Pain Score 4-10 Propranolol HCl 20 mg 08/22/24 10:00 08/22/24 22:22 Propranolol 10 Mg Tablet PO 20 mg BID FRANCISCO Administration Protocol Sodium Chloride 10 - 40 ml 08/19/24 01:31 08/23/24 11:28 0.9% Saline Lock 10 Ml Syringe IV 10 ml UD PRN Administration SALINE FLUSH Tamsulosin HCl 0.4 mg 08/22/24 17:30 08/22/24 16:53 Tamsulosin Hcl 0.4 Mg Capsule PO 0.4 mg DAILY@1730 FRANCISCO Administration Vancomycin Protocol 1 lab 08/24/24 22:30 Vancomycin Trough/Random Due MC 08/25/24 00:30 DAILY [facility] Medical History MRSA (methicillin resistant Staphylococcus aureus) infection History of schizophrenia Bradycardia Asthma GERD (gastroesophageal reflux disease) History of anoxic brain injury Adrenal insufficiency COPD (chronic obstructive pulmonary disease) Dysphagia BPH (benign prostatic hyperplasia) Polyarthropathy IBS (irritable bowel syndrome) Schizoaffective disorder Schizophrenia Mood disorder Anxiety and depression Chronic anemia HLD (hyperlipidemia) HTN (hypertension) Seizure disorder Dementia Hydrocele Home Medications ?Medication ?Instructions ?Recorded ?Last Taken ?Type acetaminophen 325 mg tablet 650 mg PO Q4H PRN Headache 05/26/17 Unknown History (Tylenol) albuterol sulfate 2.5 mg/3 mL 2.5 mg inhalation Q6H TN N PRN Sob 05/26/17 Unknown History (0.083 %) solution for nebulization &/Or Wheezing aluminum-mag hydroxide-simethicone 30 ml PO Q4H PRN TN N Indigestion 05/26/17 Unknown History 400 mg-400 mg-40 mg/5 mL oral susp (Mag-Al Plus Extra Strength) aripiprazole 5 mg tablet 5 mg PO QHS blood thinner 06/05/17 20:45 History 1 benzocaine 15 mg-menthol 3.6 mg 1 blaire buccal PRN PRN S ore Throat 05/26/17 Unknown History lozenges (Cepacol Sore Throat (benzocaine-menthol)) bisacodyl 10 mg rectal suppository 10 mg RECTAL DAILY PRN PRN 05/26/17 Unknown History Constipation divalproex 125 mg capsule,delayed 125 mg PO Q8H schizo phrednia 05/26/17 06/05/17 20:45 History release sprinkle (Depakote 1 Sprinkles) fludrocortisone 0.1 mg tablet 0.05 mg PO DAILY@0800 ab n labs 05/26/17 Unknown History guaifenesin 100 mg/5 mL oral liquid 10 ml PO Q4H PRN P RN Cough 05/26/17 Unknown History haloperidol 1 mg tablet 1 mg PO TID anxiety 05/26/17 06/05/17 20:45 History 1 lithium carbonate 300 mg 300 mg PO BID biopolar 05/2606/05/17 20:45 History tablet,extended release 1 magnesium hydroxide 400 mg/5 mL 30 ml PO DAILY PRN PRN Constipation 05/26/17 Unknown History oral suspension polyethylene glycol 3350 17 gram 17 g PO DAILY constip ation 05/26/17 Unknown History oral powder packet tamsulosin 0.4 mg capsule (Flomax) 0.4 mg PO DAILY uri nary retention 05/26/17 Unknown History atorvastatin 40 mg tablet 40 mg PO QHS hyperlipidemia 05/10/23 Unknown History diphenhydramine HCl 50 mg/mL 50 mg IM Q6H PRN agitatio n 05/10/23 Unknown History injection solution folic acid 400 mcg tablet 400 mcg PO DAILY deficiency 05/10/23 Unknown History haloperidol lactate 5 mg/mL 5 mg IM Q3H PRN agitation 05/10/23 Unknown History injection solution hydrocortisone 10 mg tablet 10 mg PO BID adrenal 05/09 Unknown History insuffienciency hydrocortisone 5 mg tablet 5 mg PO DAILY adrenal insuf fiencien 05/10/23 Unknown History lactulose 10 gram/15 mL oral 20 g PO BID abn labs 11/24 Unknown History solution (Enulose) lorazepam 0.5 mg tablet (Ativan) 0.5 mg PO Q6H PRN anx iety 05/10/23 Unknown History lorazepam 1 mg tablet 1 mg PO TID anxiety 05/10/23 Unknown History melatonin 3 mg capsule 6 mg PO QHS insom 05/10/23 U nknown History nicotine (polacrilex) 2 mg buccal 2 mg mucous membrane Q2H PRN 05/10/23 Unknown History lozenge nicotine cravings nicotine 10 mg inhalation 1 inh inhalation Q2H PRN trixie otine 05/10/23 Unknown History cartridge (Nicotrol) cravings paroxetine HCl 20 mg tablet 20 mg PO DAILY depression 05/10/23 Unknown History aripiprazole 10 mg tablet 10 mg PO DAILY 08/18/24 Unkn own History benztropine 1 mg tablet 1 mg PO BID 08/18/24 Unknown History calcium carbonate (Calcium 500) 500 mg PO BID 08/18/24 Unknown History cholecalciferol (vitamin D3) 50 4,000 unit PO DAILY Unknown History mcg (2,000 unit) tablet (Vitamin D3) docusate sodium 100 mg capsule 100 mg PO DAILY 5 Unknown History (Col-Rite) loperamide 2 mg tablet 4 mg PO .COMPLEX PRN loose s tool 08/18/24 Unknown History paroxetine HCl 20 mg tablet (Paxil) 20 mg PO DAILY Unknown History propranolol 80 mg tablet 80 mg PO BID 08/18/24 Unknow n History Allergy/AdvReac Type Severity Reaction Status Date / Time ciprofloxacin (From Cipro) AdvReac Hives Verified 11/12/15 19:37 codeine AdvReac Hives Verified 11/12/15 19:37 Penicillins AdvReac Hives Verified 11/12/15 19:37 sulfamethoxazole (From AdvReac Hives Verified 11/12/15 19:37 Bactrim) trimethoprim (From Bactrim) AdvReac Hives Verified 11/12/15 19:37 Social History household members: none housing: residential Smoking Status: Current every day smoker tobacco type: cigarettes alcohol intake: never substance use type: does not use Review of Systems (Anesthesia) ROS Narrative System reviewed and no additional complaints, except as documented. 08/23/24 0500 <Electronically signed by Lionel Dean MD> Date _ Lionel Dean MD Cosigner Signature: Date CC: ~ Signed [facility] Work Phone: 1(122) 608-234706-23-2025 Procedure [facility] 08-23-2024 Procedure [facility]06-23-2025 Consult note Author Laci Jackson [facility] Note Date/Time August 23, 2024 1:06 pm [facility] Medical Records Department [address] [place] [address] Consultation - Infectious Dx 08/23/24 1300 MR#: [id number] Acct: [id number] Name: NANDO OCHOA Rep #:[id number] : 1960 63 From: Laci feliciano MD PCP: Dr. Ashley Dickey MD Status:ADM IN Location: [place] [address] Assessment & Plan Assessment/Plan (1) MRSA bacteremia: PLAN: Presented with septic shock due to mrsa bacteremia, unclear source. Ucx with small growth bacteria. CT showed stercoral colitis. Concern for endocarditis given splinter hemorrhages on fingers. Will order repeat bcx and TTE. Cont vanc/christi for now. Will follow, thank you HPI Consult Data Date of Consult: 08/23/24 HPI Narrative Reason for Consultation: bacteremia HPI Narrative: NANDO OCHOA, is a 63 M with h/o anoxic brain injury, presented 08/18 with altered mental status, hypotension. Admitted to icu with septic shock, started on vanc/christi. Now out of icu, found to have MRSA bacteremia. Denies pain. Unable to obtain history or full ROS from patient due to mental status. [facility] Medical History MRSA (methicillin resistant Staphylococcus aureus) infection History of schizophrenia Bradycardia Asthma GERD (gastroesophageal reflux disease) History of anoxic brain injury Adrenal insufficiency COPD (chronic obstructive pulmonary disease) Dysphagia BPH (benign prostatic hyperplasia) Polyarthropathy IBS (irritable bowel syndrome) Schizoaffective disorder Schizophrenia Mood disorder Anxiety and depression Chronic anemia HLD (hyperlipidemia) HTN (hypertension) Seizure disorder Dementia Hydrocele Home Medications ?Medication ?Instructions ?Recorded ?Last Taken ?Type acetaminophen 325 mg tablet 650 mg PO Q4H PRN Headache 05/26/17 Unknown History (Tylenol) albuterol sulfate 2.5 mg/3 mL 2.5 mg inhalation Q6H TN N PRN Sob 05/26/17 Unknown History (0.083 %) solution for nebulization &/Or Wheezing aluminum-mag hydroxide-simethicone 30 ml PO Q4H PRN TN N Indigestion 05/26/17 Unknown History 400 mg-400 mg-40 mg/5 mL oral susp (Mag-Al Plus Extra Strength) aripiprazole 5 mg tablet 5 mg PO QHS blood thinner 06/05/17 20:45 History 1 benzocaine 15 mg-menthol 3.6 mg 1 blaire buccal PRN PRN S ore Throat 05/26/17 Unknown History lozenges (Cepacol Sore Throat (benzocaine-menthol)) bisacodyl 10 mg rectal suppository 10 mg RECTAL DAILY PRN PRN 05/26/17 Unknown History Constipation divalproex 125 mg capsule,delayed 125 mg PO Q8H schizo phrednia 05/26/17 06/05/17 20:45 History release sprinkle (Depakote 1 Sprinkles) fludrocortisone 0.1 mg tablet 0.05 mg PO DAILY@0800 ab n labs 05/26/17 Unknown History guaifenesin 100 mg/5 mL oral liquid 10 ml PO Q4H PRN P RN Cough 05/26/17 Unknown History haloperidol 1 mg tablet 1 mg PO TID anxiety 05/26/17 06/05/17 20:45 History 1 lithium carbonate 300 mg 300 mg PO BID biopolar 05/2606/05/17 20:45 History tablet,extended release 1 magnesium hydroxide 400 mg/5 mL 30 ml PO DAILY PRN PRN Constipation 05/26/17 Unknown History oral suspension polyethylene glycol 3350 17 gram 17 g PO DAILY constip ation 05/26/17 Unknown History oral powder packet tamsulosin 0.4 mg capsule (Flomax) 0.4 mg PO DAILY uri nary retention 05/26/17 Unknown History atorvastatin 40 mg tablet 40 mg PO QHS hyperlipidemia 05/10/23 Unknown History diphenhydramine HCl 50 mg/mL 50 mg IM Q6H PRN agitatio n 05/10/23 Unknown History injection solution folic acid 400 mcg tablet 400 mcg PO DAILY deficiency 05/10/23 Unknown History haloperidol lactate 5 mg/mL 5 mg IM Q3H PRN agitation 05/10/23 Unknown History injection solution hydrocortisone 10 mg tablet 10 mg PO BID adrenal 05/09 Unknown History insuffienciency hydrocortisone 5 mg tablet 5 mg PO DAILY adrenal insuf fiencien 05/10/23 Unknown History lactulose 10 gram/15 mL oral 20 g PO BID abn labs 11/24 Unknown History solution (Enulose) lorazepam 0.5 mg tablet (Ativan) 0.5 mg PO Q6H PRN anx iety 05/10/23 Unknown History lorazepam 1 mg tablet 1 mg PO TID anxiety 05/10/23 Unknown History melatonin 3 mg capsule 6 mg PO QHS insom 05/10/23 U nknown History nicotine (polacrilex) 2 mg buccal 2 mg mucous membrane Q2H PRN 05/10/23 Unknown History lozenge nicotine cravings nicotine 10 mg inhalation 1 inh inhalation Q2H PRN trixie otine 05/10/23 Unknown History cartridge (Nicotrol) cravings paroxetine HCl 20 mg tablet 20 mg PO DAILY depression 05/10/23 Unknown History aripiprazole 10 mg tablet 10 mg PO DAILY 08/18/24 Unkn own History benztropine 1 mg tablet 1 mg PO BID 08/18/24 Unknown History calcium carbonate (Calcium 500) 500 mg PO BID 08/18/24 Unknown History cholecalciferol (vitamin D3) 50 4,000 unit PO DAILY Unknown History mcg (2,000 unit) tablet (Vitamin D3) docusate sodium 100 mg capsule 100 mg PO DAILY 5 Unknown History (Col-Rite) loperamide 2 mg tablet 4 mg PO .COMPLEX PRN loose s tool 08/18/24 Unknown History paroxetine HCl 20 mg tablet (Paxil) 20 mg PO DAILY Unknown History propranolol 80 mg tablet 80 mg PO BID 08/18/24 Unknow n History Allergy/AdvReac Type Severity Reaction Status Date / Time ciprofloxacin (From Cipro) AdvReac Hives Verified 11/12/15 19:37 codeine AdvReac Hives Verified 11/12/15 19:37 Penicillins AdvReac Hives Verified 11/12/15 19:37 sulfamethoxazole (From AdvReac Hives Verified 11/12/15 19:37 Bactrim) trimethoprim (From Bactrim) AdvReac Hives Verified 11/12/15 19:37 Social History household members: none housing: residential Smoking Status: Current every day smoker tobacco type: cigarettes alcohol intake: never substance use type: does not use Physical Exam Const no apparent distress General Appearance: lethargic HEENT normocephalic and head/scalp atraumatic Eyes PERRL and EOMs intact bilaterally Neck supple and No nodes Resp normal air movement and clear to auscultation bilaterally Cardio regular rate and regular rhythm GI soft to palpation, non-tender and non-distended Extremity General Extremity: no tenderness to palpation of joints or extremities; Negativefor edema Skin Skin Narrative: No rash. Multiple splinter hemorrhages on both hands. Neuro CN's II-XII intact bilaterally Lab / Micro Data Attestation: I reviewed the patient's lab results. 08/23/24 05:05 08/23/24 05:05 Labs: Laboratory Results - last 24 hr 08/22/24 23:23: Vancomycin Trough 18.2 H 08/23/24 05:05: WBC 3.5 L, RBC 2.56 L, Hgb 7.7 L, Hct 23.7 L, MCV 92.6, MCH 30.1, MCHC 32.5, RDW Std Deviation 41.1, RDW Coeff of Eyal 12.0, Plt Count 99 L, MPV 10.8, Immature Gran % (Auto) 0.300, Neut % (Auto) 63.4, Lymph % (Auto) 21.9,[place] % (Auto) 6.3, Eos % (Auto) 7.8 H, Baso % (Auto) 0.3, Absolute Neuts (auto) 2.2, Absolute Lymphs (auto) 0.76 L, Nucleated RBC % 0, Differential Comment SCANNED, Platelet Estimate MOD DEC, Sodium 143, Potassium 3.1 L, Chloride 114 H,Carbon Dioxide 19.7 L, Anion Gap 9, BUN 18, Creatinine 0.82, Estim Creat Clear Calc 94.95, Est GFR (MDRD) Non-Af 99, BUN/Creatinine Ratio 21.5 H, Glucose 90, Calcium 8.4 Micro: Microbiology 08/18/24 18:59 Urine, Catheterized Urine Culture - Preliminary Gram positive quintin Aerococcus urinae 08/23/24 1306 <Electronically signed by Laci Jackson MD> Cosigner Signature (if applicable): CC: Dr. Ashley Dickey MD~ Signed [facility] Work Phone: 1([phone]) 246-521406-23-2025 Consult note Author Stan Mora [facility] Note Date/Time August 23, 2024 12:4 1am [facility] Medical Records Department [address] [place] [address] Pharmacokinetic/Renal -Consult 08/23/24 0039 MR#: [id number] Acct: [id number] Name: NANDO OCHOA Rep #:[id number] : 1960 63 From: Stan Mora PCP: Dr. Ashley Dickey MD Status:ADM IN Location: [place] [address] Consult Antibiotic Management Pharmacy has been consulted to manage selected antibiotic: Vancomycin Type of Intervention Type of Consult: Follow-up Suspected Infection Suspected Infection: Bacteremia Labs Labs: Sodium 139 mmol/L (133-145) 08/22/24 05:07 Potassium 3.6 mmol/L (3.3-5.1) 08/22/24 05:07 Chloride 112 mmol/L (98-108) H 08/22/24 05:07 Carbon Dioxide 17.8 mmol/L (21.0-32.0) L 08/22/24 05:07 Anion Gap 9 (5-15) 08/22/24 05:07 BUN 20 mg/dL (4-19) H 08/22/24 05:07 Creatinine 0.93 mg/dL (0.70-1.20) 08/22/24 05:07 Est GFR (MDRD) Non-Af 93 (>60) 08/22/24 05:07 BUN/Creatinine Ratio 21.3 RATIO (10-20) H 08/22/24 05:07 Glucose 98 mg/dL (70-99) 08/22/24 05:07 Vancomycin Trough 18.2 ug/mL (5.0-15.0) H 08/22/24 23:23 Microbiology Microbiology: Microbiology 08/18/24 18:59 Urine, Catheterized Urine Culture - Preliminary Gram positive quintin Aerococcus urinae 08/21/24 15:11 Nasal Secretion MRSA (PCR) - Final 08/18/24 18:50 Blood Culture (Wb) - Anticubital Right Blood Culture - Preliminary No growth in 48 hours. 08/18/24 18:54 Blood Culture (Wb) - Anticubital Left Blood Culture - Final Meth. resistant Staph. aureus 08/19/24 01:35 Mucosa - Nasopharyngeal Respiratory Panel (PCR) - Final Dosing Weight Weight used for dosin.6 kg Estimated Creatinine Clearance Estimated Creatinine Clearance: 84 Goal Trough Goal Trough: 15-20 mcg/mL Pharmacy Plan for Drug Dosing Pharmacy Plan for Drug Dosing: Vancomycin trough level of 18.2, drawn 10.5hrs post-dose, was within the target range of 15-20. Will continue dosing at 1000mg q12h, and will draw another trough level in two days. Pharmacy Service will continue to monitor and adjust dosing as required. Follow-Up Labs Follow-Up Labs: Trough: Vancomycin Date/Time Labs Ordered Labs to be done on [date and time ordered]: 08/24/24 @2330 08/23/24 0041 <Electronically signed by Stan de leon> Date _ Stan Burt Signature (if applicable): Date CC: ~ Signed [facility] Work Phone: 1([phone]) 784-223606-22-2025 Progress note Author Marciano Guerin [facility] Note Date/Time August 22, 2024 3:54 pm [facility] Medical Records Department [address] [place] [address] Progress Note - Hospitalist 08/22/24 2909 MR#: [id number] Acct: [id number] Name: NANDO OCHOA Rep #:[id number] : 1960 63 From: Marciano Saeed PCP: Dr. Ashley Dickey MD Status:ADM IN Location: [place] [address] Reason for Visit Reason for Visit: Diagnoses Sepsis, unspecified organism (08/19/24) Unspecified dementia, unspecified severity, with agitation (08/19/24) Schizoaffective disorder, unspecified (08/19/24) Depression, unspecified (08/19/24) Anxiety disorder, unspecified (08/19/24) Metabolic encephalopathy (08/19/24) Acute cystitis without hematuria (08/19/24) Other abnormalities of breathing (08/19/24) Severe sepsis with septic shock (08/19/24) Fracture of unspecified part of neck of left femur, initial encounter for closedfracture (08/19/24) Displaced intertrochanteric fracture of left femur, initial encounter for closedfracture (08/19/24) Personal history of other mental and behavioral disorders (08/19/24) Personal history of other diseases of the nervous system and sense organs (08/19/24) Objective Data Objective Data Vital Signs: Vital Signs Temp Pulse Resp BP Pulse Ox O2 Del Method O2 Flow Rate 98.9 F 67 16 127/63 H 98 Nasal Cannula 2 08/22/24 09:09 08/22/24 09:09 08/22/24 09:09 08/22/24 09:09 08/22/24 09:09 08/22/24 09:09 08/22/24 09:09 Oxygen Flow Rate (L/min) 2 Oxygen Delivery Method Nasal Cannula Weight: 162 lb 4.163 oz Body Mass Index (BMI) 23.2 Intake & Output: Intake and Output for Last 24 Hours 08/20/24 08/21/24 08/22/24 23:59 23:59 23:59 Intake Total 1056.5 / 1056.5 1587 / 1587 2130.00 / 2130.00 Output Total 2100 / 2350 2375 / 2375 Balance -1043.5 / -1293.5 -788 / -788 2130.00 / 2130.00 Lab / Micro Data 08/22/24 06:08 08/22/24 05:07 Labs: Laboratory Results - last 24 hr Sodium 143, Potassium 3.7, Chloride 115 H, Carbon Dioxide 20.5 L, Anion Gap 8, BUN 26 H, Creatinine 1.01, Estim Creat Clear Calc 77.30, Est GFR (MDRD) Non-Af 84, BUN/Creatinine Ratio 25.7 H, Glucose 94, Calcium 8.4 08/21/24 16:33: WBC 5.5, RBC 2.37 L, Hgb 7.2 L, Hct 22.1 L, MCV 93.2, MCH 30.4, MCHC 32.6, RDW Std Deviation 42.8, RDW Coeff of Eyal 12.6, Plt Count 94 L, MPV 10.8, Immature Gran % (Auto) 0.500, Neut % (Auto) 70.4 H, Lymph % (Auto) 18.2 L,[place] % (Auto) 7.8, Eos % (Auto) 2.9, Baso % (Auto) 0.2, Absolute Neuts (auto) 3.9, Absolute Lymphs (auto) 1.00, Nucleated RBC % 0 , Sodium 139, Potassium 3.6, Chloride 112 H, Carbon Dioxide 17.8 L, Anion Gap 9,BUN 20 H, Creatinine 0.93, Estim Creat Clear Calc 83.95, Est GFR (MDRD) Non-Af 93, BUN/Creatinine Ratio 21.3 H, Glucose 98, Calcium 8.3 08/22/24 06:08: WBC 4.6, RBC 2.62 L, Hgb 8.0 L, Hct 24.4 L, MCV 93.1, MCH 30.5, MCHC 32.8, RDW Std Deviation 41.3, RDW Coeff of Eyal 12.2, Plt Count 101 L, MPV 10.7, Immature Gran % (Auto) 0.200, Neut % (Auto) 68.5, Lymph % (Auto) 18.6 L, [place] % (Auto) 8.0, Eos % (Auto) 4.5, Baso % (Auto) 0.2, Absolute Neuts (auto) 3.2, Absolute Lymphs (auto) 0.86, Nucleated RBC % 0 Micro: Microbiology 08/18/24 18:59 Urine, Catheterized Urine Culture - Preliminary Gram positive quintin Aerococcus urinae 08/21/24 15:11 Nasal Secretion MRSA (PCR) - Final 08/18/24 18:50 Blood Culture (Wb) - Anticubital Right Blood Culture - Preliminary No growth in 48 hours. 08/18/24 18:54 Blood Culture (Wb) - Anticubital Left Blood Culture - Final Meth. resistant Staph. aureus 08/19/24 01:35 Mucosa - Nasopharyngeal Respiratory Panel (PCR) - Final Physical Exam Narrative Seen and examined. Her mental status slightly better but still has garbled speech. Nursing staff has a concern that he has pain but he is more agitated and restless. Antipsychotic medications resumed. I could not much understand his speech but he states no burning in urine. He could not tell me when he was last BM but CT abdomen shows fecaliths and stercoral colitis from ascending to rectosigmoid region. He denies abdominal pain and is not tender but history complete remains unobtainable. Patient was admitted with hypotension generalized weakness and altered mental status possible due to septic shock. Unclear how he fractured his left hip but he complained of left hip and not able to flex. Mild low-grade grade fever. Could not tell about dysuria or other symptoms. Physical exam General: Awake, orientation cannot be ascertained, agitated and restless HEENT: Atraumatic, PERRLA, EOMI, Normocephalic. Oral: No Gingival or Mucosal Lesions/ Ulcerations Neck: Supple, No JVD, Negative Carotid Bruits Chest wall/Lungs: Air entry diminished in bilateral lung bases. No crepitation/rhonchi Cardiovascular: Regular rate and rhythm, Normal S1,S2, systolic murmur Abdomen: firm lump palpable in the right paraumbilical/lumbar region, fecaloma, constipation. Bowel Sounds sluggish, soft, Non Tender, Non-Distended : Mills catheter no renal angle tenderness. No suprapubic tenderness. Extremities: No edema, Capillary Refill Less than 3 Seconds Skin: No rashes, No breakdown Musculoskeletal: Tenderness over left hip, flexed deformity. No Tenderness to Palpation of other joints or Extremities Neurological: Does not follow command therefore complete neuroexam unobtainable. No obvious focal lateralizing sign Psych/Mental Status: Flat affect, schizophrenia Assessment & Plan Assessment/Plan (1) Sepsis: QUALIFIERS: Sepsis type: sepsis due to unspecified organism Sepsis acute organ dysfunction status: with acute organ dysfunction Severe sepsis acute organ dysfunction type: encephalopathy Severe sepsis shock status:with septic shock Qualified Code(s): A41.9 - Sepsis, unspecified organism; R65.21 - Severe sepsis with septic shock; G93.41 - Metabolic encephalopathy (2) Acute cystitis without hematuria: (3) Acute respiratory insufficiency: (4) Acute metabolic encephalopathy: (5) Hip fracture: QUALIFIERS: Encounter type: initial encounter Fracture type: closed Laterality: left Qualified Code(s): S72.002A - Fracture of unspecified part of neck of left femur, initial encounter for closed fracture (6) History of anoxic brain injury: (7) History of schizophrenia: (8) Schizoaffective disorder: QUALIFIERS: Schizoaffective disorder type: unspecified Qualified Code(s): F25.9 - Schizoaffective disorder, unspecified (9) Anxiety and depression: (10) Dementia: QUALIFIERS: Dementia type: unspecified type Dementia severity: unspecified severity Dementia behavioral or psychological symptom: with agitation Qualified Code(s): F03.911 - Unspecified dementia, unspecified severity, with agitation PLAN: Plan 63-year-old gentleman [facility] evaluation of altered mental status, low BP, generalized weak and found to be hypotensive. He was agitated as per ER physician but calm in the ICU 1. Hypotension, possible septic shock due to MRSA bacteremia, exact focus unclear but possible underlying UTI, suspicion of acute on chronic adrenal insufficiency: Patient fever, Tmax 100.5 Fahrenheit, low BP, 83/39, 68/47 and was on norepinephrine for short time. Currently on empiric meropenem. History unobtainable regarding clinical symptoms to rule out UTI or pneumonia. Prelim urine culture is negative. Respiratory panel negative. Blood culture negative. Chest CTA negative for PE but shows minimal left pleural effusion/thickening, minimal atelectatic airspace in the left lower lobe with paraseptal emphysema. Therefore unlikely major pneumonic consolidation and patient also on room air with no hypoxia. Empirically on IV vancomycin and meropenem. ABG that revealedpH 7.42/pCO2 40.8 mmHg/PaO2 68 mmHg/HCO3 28 mmol/L on RA. ABG was essentially normal. CT abdomen pelvis shows diffuse thickening of bladder with suspicion ofchronic bladder outlet obstruction versus cystitis with mild prostatomegaly. 08/20: Clinical concern of sepsis due to UTI: History regarding lower urinary tract symptoms remain unobtainable. Continue antimicrobial. Patient received IV fluid in ED as per sepsis protocol. 08/21: Blood culture positive of MRSA. On IV vancomycin and Zosyn. Urine culture prelim gram-positive quintin, alphahemolytic organism. Respiratory panel negative. 08/22: Discussed with the salesperson meats regarding vegetation in the echo, TTE although not reported officially in the report. Dr. Cardenas advised to remindDr. Hills tomorrow to have a second look on the echo images and he will also give him signout. Urine culture shows 2 organisms GPR and Aerococcus urinae 10,000-25,000 colonies, contamination/colonization. Empirically he is on IV vancomycin and meropenem. ID follow-up tomorrow a.m. 2. Acute Metabolic Encephalopathy in the setting of previously known Anoxic Brain Injury, Schizophrenia, Schizoaffective disorder, Depression with Anxiety and Dementia; of unclear type. CT shows no evidence of acute intracranial abnormality 08/20: Encephalopathy looks better 08/21: Patient was put back on his antipsychotic medications including oral aripiprazole, benztropine. Discussed with the pharmacist. Hold divalproex as patient already on IV Keppra. [place] level normal. Follow-up with the nephrology whether safe to resume lithium. Try to minimize oral medication as patient has severe constipation with fecalith. Acute Comminuted Displaced Left Intertrochanteric Fracture incidentally noted on CT this admission and perioperative evaluation: Patient left hip is flexed, no movement. Incidentally CT abdomen shows acute commuted displaced left intertrochanteric fracture for which femur x-ray showed the same but reported nondisplaced. Orthopedic surgeon is consulted. Discussed with anesthesiologist. Twelve-lead EKG NSR at 60 bpm, QTc 400 ms. 2D echo ordered. I think patient is moderate perioperative risk for hip surgery. History of COPD, hypertension and dyslipidemia but no history of CAD. 08/20: Patient going for left hip surgery. 2D echo EF 70% no evidence of diastolic dysfunction. Mild to moderate aortic stenosis, mean AV gradient 20.1 mmHg. 08/21: Patient had left hip cephalomedullary fixation on 08/20. Operative area nontender,. No bruise or hematoma visible. 08/22: Patient nurse was saying that he is having pain. Unclear as he might be agitated from psychotic history. IV Toradol ordered. Try to minimize opioids. 5. Possible acute on chronic adrenal insufficiency; on fludrocortisone and hydrocortisone twice daily: Give hydrocortisone 50 mg IV TID and check cortisol level. 08/21: Hydrocortisone was discontinued and changed to fludrocortisone home medication. 08/22: Serum sodium was high treated with IV fluid D5W and sodium improved to 139. 6. Severe impacted fecalith and stercoral colitis from ascending to rectosigmoid region: Discussed with Dr. Pacheco. CT abdomen reviewed and shows impacted fecalith in the right side colon, stretching of rectosigmoid region andrectum. Soapsuds enema ordered by patient is going for surgery and afterwards, will need mineral oil, neostigmine after discontinuation of hydrocortisone (severe interaction), enema and possible colonoscopy 08/21: Discussed with the pharmacist and neostigmine dose was ordered. Discussedwith the charge nurse and patient RN, flow for possible side effects like bradycardia, increased tracheobronchial and oral secretions. Hydrocortisone wasdiscontinued yesterday because of drug-drug interaction. 08/22: Patient had 2 bowel movement 1 was semisolid and second was liquid probably soapsuds enema. Continue the regimen including lactulose, senna S, Dulcolax suppository and soapsuds enema. Discussed with systems security analyst History of admission here from May 10, 2023 to May 14, 2023 for for acute hypoxic respiratory failure due to a combination of influenza A and aspiration pneumonia in setting of previously known schizophrenia complicated by toxic encephalopathy - Noted. 7. Essential hypertension; on propranolol twice daily - Hold scheduled antihypertensives because of hypotension 8. Hyperlipidemia; on atorvastatin - Resume statin as previous. 9. History of tobacco abuse with subsequent asthma/COPD; on as needed albuterolplus nicotine replacement - Noted with no evidence of acute flare at this time. Continue as needed albuterol and nicotine replacement as before. 10. Seizure disorder; on divalproex - Check valproic acid level and replace with IV levetiracetam as there is a significant potential adverse drug interaction with meropenem. 11. Chronic oral dysphagia - Noted with patient currently n.p.o. and with swallow study pending. 12. IBS; of constipation type on lactulose twice daily - Restart this agent when patient able to tolerate oral intake. 13. BPH; with history of obstructive uropathy on tamsulosin - Resume tamsulosinwhen patient is able to tolerate oral intake. CKD; stage II - Stable with serum creatinine of 1.19 mg/dL, BUN of 22 mg/dL andEGFR of 69 mL/min present on admission. Chronic pancytopenia with superimposed iron deficiency anemia - WBC of 7.7K, hemoglobin of 9.9 g/dL and platelet count of 114K present on admission. H&H 8.3/25.4%. Platelet count 201,000. WBC count normal 17. Chronicvitamin D deficiency - Maintain vitamin D supplement when patient can safely tolerate oral intake. 18. OA; with polyarthropathy - Stable. Give acetaminophen as outlined in #1. 19. DVT/GI prophylaxis - Enoxaparin 40 mg sq daily plus SCD's. Pantoprazole 40mg IV daily. Total time of the visit including total time spent in counseling or coordinationof care, (more than 50% of the total time, spent in obtaining medical information from nurses and other ancillary care providers ,explaining to the patient about labs, imaging, diagnosis and management of active complex medical conditions), , review of labs and imaging is 35 minutes. Clinical Impression(s) from Imaging Studies Chest X-Ray 08/18/24 19:06 IMPRESSION: NEGATIVE SINGLE VIEW OF THE CHEST. Reading Location: [id number] Abdomen/Pelvis CT 08/19/24 00:30 IMPRESSION: Moderate osteopenia. Acute comminuted displaced left intertrochanteric fracture. Moderate gastroparesis. Moderate amount of fecal residue in the large bowel suggestive of constipation with associated mild stercoral colitis of the rectosigmoid colon. Mild chronic multifocal scarring of the kidneys. Distended, trabeculated bladder. Diffuse thickening of the bladder. Chronic bladder outlet obstruction versus cystitis. Mild prostatomegaly with midline defect of the prostate, probably from prior TURP. Mild bilateral fullness of the collecting systems, probably reflux from distended bladder. Bilateral scattered simple renal cysts are noted with the largest measuring 5 mm. Right renal nonobstructing stone measuring 5 mm. [facility] 08/19/24 00:30 IMPRESSION: No CT evidence of an acute brain abnormality. [facility] Chest CTA 08/19/24 00:30 IMPRESSION: No demonstrated pulmonary embolism or arterial dissection. Minimal left pleural effusion/thickening. Minimal passive atelectatic airspace disease of the left lower lobe. Paraseptal emphysema. Moderate coronary artery calcifications. Multinodular thyroid goiter without tracheal narrowing or deviation. Minimal pericardial effusion. [facility] Venous Doppler Study 08/19/24 02:35 Interpretation Summary Deep veins of the lower extremities are bilaterally patent and compressible segmentally. There is no evidence of deep vein thrombosis on either side. Valvular competence appears intact within the proximal deep venous systems bilaterally. The great saphenous veins appear bilaterally patent and compressible segmentally. Veins were not imaged below the knee due to patient combativeness and lack of cooperation. Ordering Physician: Robert Huizar Referring Physician: Ashley Dickey Performed By: Naty Parmar, [place], RVT Femur X-Ray 08/19/24 07:13 IMPRESSION: Intertrochanteric fracture, nondisplaced, suspected [facility] Echocardiogram 08/19/24 08:42 Interpretation Summary The estimated ejection fraction is 70 %. No evidence for diastolic dysfunction. Mild to moderate aortic stenosis. Ordering Physician: Marciano Guerin Referring Physician: ASHLEY DICKEY Performed By: Jacidna Cedeno RDCS Charges/Coding Addendum Addendum: Total time of the visit including total time spent in counseling or coordinationof care, (more than 50% of the total time, spent in obtaining medical information from nurses and other ancillary care providers ,explaining to the patient about labs, imaging, diagnosis and management of active complex medical conditions), discussion with the pharmacy and the systems security analyst, review of labs and imaging is 35 minutes. Visit Charges Inpatient E&M: 71330 Subs Hosp L3 08/22/24 1407 <Electronically signed by Marciano Guerin MD> Cosigner Signature (if applicable): CC: ~ Signed ADDENDUM by Dr. Marciano Guerin MD on 08/22/24 at [address] Friend. Betts bowel prep ordered in preparation of colonoscopy tomorrow 08/22/24 1554<Electronically signed by Marciano Guerin MD> Cosigner Signature (if applicable): cc: ~* Signed [facility] Work Phone: 1(123) 170-727706-22-2025 Progress note Author Edwin Espinal [facility] Note Date/Time August 22, 2024 12:3 7pm [facility] Medical Records Department [address] [place] [address] Progress Note - Administrative Supervisor 08/22/24 1230 MR#: [id number] Acct: [id number] Name: NANDO OCHOA Rep #:[id number] : 1960 63 From: Edwin Espinal MD PCP: Dr. Ashley Dickey MD Status:ADM IN Location: [place] [address] Objective Data Objective Data Vital Signs: Vital Signs Last response 3 Temperature 37.2 C 08/22/24 09:09 Temperature Source Oral 08/22/24 09:09 Pulse Rate 67 08/22/24 09:09 Pulse Strength Normal (2+) 08/22/24 09:00 Respiratory Rate 16 08/22/24 09:09 Respiratory Effort Normal 08/22/24 09:00 Respiratory Depth Normal 08/22/24 09:00 Respiratory Pattern Normal 08/22/24 09:00 Blood Pressure 127/63 H 08/22/24 09:09 Blood Pressure Mean 84 08/22/24 09:09 Blood Pressure Source Monitor 08/22/24 09:09 Blood Pressure Position Semi-Fowlers 08/22/24 09:09 Blood Pressure Location Right Arm 08/22/24 09:09 Baseline BP 130/63 08/20/24 14:39 Pulse Ox 98 08/22/24 09:09 Oxygen Delivery Method Nasal Cannula 08/22/24 09:09 Oxygen Flow Rate (L/min) 2 08/22/24 09:09 I&O: I&O Last 24 Hours 3 08/21/24 08/22/24 08/22/24 23:59 11:59 23:59 Intake Total 1387 / 1587 1857.50 / 1857.50 Output Total 1400 / 2375 Balance -13 / -788 1857.50 / 1857.50 I&O: Total Stay 3 08/18/24 18:28 thru 08/22/24 11:50 Intake Total 58177.91 Output Total 7675 Balance 3318.91 Current Meds Ordered / Administered: Current meds ordered / Administered 3 Generic Name Dose Route Start Last Admin Trade Name Freq PRN Reason Stop Dose Admin Acetaminophen 650 mg 08/21/24 10:54 08/21/24 17:38 Acetaminophen 325 Mg Tablet PO 650 mg Q6H PRN PRN Administration Pain 1-10 or Fever Albuterol Sulfate 2.5 mg 08/19/24 01:30 Albuterol 2.5 Mg/3 Ml Vial.Neb. INHALATION Q6H PRN PRN Sob &/Or Wheezing Apixaban 2.5 mg 08/21/24 07:00 08/21/24 21:54 Apixaban 2.5 Mg Tablet ([facility]) PO 2.5 mg BID FRANCISCO Administration Aripiprazole 10 mg 08/22/24 10:00 Aripiprazole 10 Mg Tablet PO DAILY FRANCISCO Protocol Aripiprazole 5 mg 08/22/24 22:00 Aripiprazole 5 Mg Tablet PO QHS FRANCISCO Protocol Atropine Sulfate 1 mg 08/21/24 10:00 Atropine Sulfate 1 Mg/10 Ml Syringe IV X1 PRN HR < 40 WITH NEOSTIGMINE ADMIN Benztropine Mesylate 1 mg 08/22/24 10:00 Benztropine 2 Mg Tablet PO BID FRANCISCO Bisacodyl 10 mg 08/19/24 01:30 Bisacodyl 10 Mg Suppository RC DAILY PRN PRN Constipation Calcium Carbonate 500 mg 08/20/24 17:00 08/22/24 10:52 Calcium Carbonate 500 Mg Tablet PO Not Given TIDCM [facility]ANC[facility]CO Cholecalciferol 25 mcg 08/21/24 10:00 08/22/24 10:56 Cholecalciferol (Vit D3) 25 Mcg Tablet (1,000 Units) PO 25 mcg DAILY [facility] Administration Fludrocortisone Acetate 0.05 mg 08/21/24 08:00 08/22/24 10:56 Fludrocortisone Acetate 0.1 Mg Tablet PO 0.05 mg DAILY@0800 [facility] Administration Folic Acid 0.5 mg 08/23/24 08:00 Folic Acid 1 Mg Tablet PO BREAKFAST [facility] Haloperidol Lactate 0.5 mg 08/22/24 10:30 08/22/24 11:03 Haloperidol Lactate 5 Mg/Ml Vial IV 0.5 mg TID [facility] Administration Protocol Hydrocortisone 10 mg 08/22/24 10:00 Hydrocortisone 10 Mg Tablet PO BID [facility] Meropenem 1 gm/ Sodium 120 mls @ 97 mls/hr 08/19/24 10:00 08/22/24 11:50 Chloride IV Infused BID [facility] Infusion Pantoprazole Sodium 40 mg/ 100 mls @ 330 mls/hr 08/19/24 10:00 08/22/24 10:40 Sodium Chloride IV Infused Q24 [facility] Infusion Sodium Chloride 250 mls @ 15 mls/hr 08/19/24 01:31 08/21/24 15:24 IV 0 mls/hr .[id number] PRN Infusion Saline Flush Sodium Chloride 250 mls @ 15 mls/hr 08/19/24 01:31 IV .[id number] PRN Additional IVPB Infusion Levetiracetam 1,000 mg in 100 mls @ 400 mls/hr 08/19/24 10:00 08/22/24 09:53 IV 400 mls/hr Q12 [facility] Administration Vancomycin IV-PHARMACY TO DOSE 500 mls @ 250 mls/hr 08/21/24 10:00 1 each/ Sodium Chloride IV PRN PRN Rx to Dose Protocol Vancomycin HCl 1,000 mg in 200 mls @ 200 mls/hr 08/22/24 00:00 08/22/24 00:42 Vancomycin IV Infused Q12H [facility] Infusion Dextrose 1,000 mls @ 75 mls/hr 08/21/24 14:20 08/22/24 10:40 IV 08/22/24 16:59 75 mls/hr .[id number] [facility] Infusion Lactulose 20 gm 08/22/24 09:45 08/22/24 11:13 Lactulose 20 Gm/30 Ml Udc PO Not Given TID [facility] Melatonin 10 mg 08/22/24 22:00 Melatonin 10 Mg Tablet PO QHS [facility] Nicotine 7 mg 08/19/24 01:30 08/22/24 09:34 Nicotine 7 Mg Patch TD 7 mg DAILY [facility] Administration Non-Formulary Medication 5 mg 08/22/24 10:00 Hydrocortisone PO DAILY [facility] Oxycodone HCl 2.5 mg 08/20/24 13:54 Oxycodone 5 Mg Tablet PO Q4H PRN PRN Pain Score 4-10 Propranolol HCl 20 mg 08/22/24 10:00 Propranolol 10 Mg Tablet PO BID [facility] Protocol Senna/Docusate Sodium 2 tablet 08/19/24 11:35 08/22/24 10:56 Senna/Docusate Sodium 1 Tablet PO 2 tablet BID [facility] Administration Sodium Chloride 10 - 40 ml 08/19/24 01:31 08/20/24 21:49 0.9% Saline Lock 10 Ml Syringe IV 10 ml UD PRN Administration SALINE FLUSH Tamsulosin HCl 0.4 mg 08/22/24 17:30 Tamsulosin Hcl 0.4 Mg Capsule PO DAILY@1730 [facility] Vancomycin Protocol 1 lab 08/22/24 22:30 Vancomycin Trough/Random Due MC 08/23/24 00:30 DAILY [facility] Lab / Micro Data 08/22/24 06:08 08/22/24 05:07 Labs: Laboratory Results - last 24 hr 08/21/24 15:20: WBC Cancelled, Corrected WBC Cancelled, RBC Cancelled, Hgb Cancelled, Hct Cancelled, MCV Cancelled, MCH Cancelled, MCHC Cancelled, RDW Std Deviation Cancelled, RDW Coeff of Eyal Cancelled, Plt Count Cancelled, MPV Cancelled, Immature Gran % (Auto) Cancelled, Neut % (Auto) Cancelled, Lymph % (Auto) Cancelled, [place] % (Auto) Cancelled, Eos % (Auto) Cancelled, Baso % (Auto)Cancelled, Absolute Neuts (auto) Cancelled, Absolute Lymphs (auto) Cancelled, Total Counted Cancelled, Neutrophils % (Manual) Cancelled, Band Neutrophils % Cancelled, Lymphocytes % (Manual) Cancelled, Monocytes % (Manual) Cancelled, Eosinophils % (Manual) Cancelled, Basophils % (Manual) Cancelled, Metamyelocytes% Cancelled, Myelocytes % Cancelled, Promyelocytes % Cancelled, Blast Cells % Cancelled, Plasma Cell % (Manual) Cancelled, Other Cells % Cancelled, Nucleated RBC % Cancelled, Nucleated RBCs/100 WBC Cancelled, Differential Comment Cancelled, Diff Path Review Cancelled, Hypersegmented Neuts Cancelled, Atypical Lymphocytes Cancelled, Reactive Lymphocytes Cancelled, Smudge Cells Cancelled, Toxic Granulation Cancelled, Toxic Vacuolation Cancelled, Dohle Bodies Cancelled, Iftikhar Rods Cancelled, Platelet Estimate Cancelled, Plt Morphology Comment Cancelled, RBC Morphology Cancelled 08/21/24 15:20: RBC Morphology Cancelled, Polychromasia Cancelled, HypochromasiaCancelled, Basophilic Stippling Cancelled, Anisocytosis Cancelled, Microcytosis Cancelled, Macrocytosis Cancelled, Spherocytes Cancelled, Sickle Cells Cancelled, Target Cells Cancelled, Tear Drop Cells Cancelled, Ovalocytes Cancelled, Stomatocytes Cancelled, Leung-Belleair Bodies Cancelled, Kesha Cells Cancelled, Bite Cells Cancelled, Crenated Cell Cancelled, Acanthocytes (Spur) Cancelled, Rouleaux Cancelled, Schistocytes Cancelled, Sodium 143, Potassium 3.7, Chloride 115 H, Carbon Dioxide 20.5 L, Anion Gap 8, BUN 26 H, Creatinine 1.01, Estim Creat Clear Calc 77.30, Est GFR (MDRD) Non-Af 84, BUN/Creatinine Ratio 25.7 H, Glucose 94, Calcium 8.4 08/21/24 16:33: WBC 5.5, RBC 2.37 L, Hgb 7.2 L, Hct 22.1 L, MCV 93.2, MCH 30.4, MCHC 32.6, RDW Std Deviation 42.8, RDW Coeff of Eyal 12.6, Plt Count 94 L, MPV 10.8, Immature Gran % (Auto) 0.500, Neut % (Auto) 70.4 H, Lymph % (Auto) 18.2 L,[place] % (Auto) 7.8, Eos % (Auto) 2.9, Baso % (Auto) 0.2, Absolute Neuts (auto) 3.9, Absolute Lymphs (auto) 1.00, Nucleated RBC % 0 08/22/24 05:07: WBC Cancelled, Corrected WBC Cancelled, RBC Cancelled, Hgb Cancelled, Hct Cancelled, MCV Cancelled, MCH Cancelled, MCHC Cancelled, RDW Std Deviation Cancelled, RDW Coeff of Eyal Cancelled, Plt Count Cancelled, MPV Cancelled, Immature Gran % (Auto) Cancelled, Neut % (Auto) Cancelled, Lymph % (Auto) Cancelled, [place] % (Auto) Cancelled, Eos % (Auto) Cancelled, Baso % (Auto)Cancelled, Absolute Neuts (auto) Cancelled, Absolute Lymphs (auto) Cancelled, Total Counted Cancelled, Neutrophils % (Manual) Cancelled, Band Neutrophils % Cancelled, Lymphocytes % (Manual) Cancelled, Monocytes % (Manual) Cancelled, Eosinophils % (Manual) Cancelled, Basophils % (Manual) Cancelled, Metamyelocytes% Cancelled, Myelocytes % Cancelled, Promyelocytes % Cancelled, Blast Cells % Cancelled, Plasma Cell % (Manual) Cancelled, Other Cells % Cancelled, Nucleated RBC % Cancelled, Nucleated RBCs/100 WBC Cancelled, Differential Comment Cancelled, Diff Path Review Cancelled, Hypersegmented Neuts Cancelled, Atypical Lymphocytes Cancelled, Reactive Lymphocytes Cancelled, Smudge Cells Cancelled, Toxic Granulation Cancelled, Toxic Vacuolation Cancelled, Dohle Bodies Cancelled, Iftikhar Rods Cancelled, Platelet Estimate Cancelled, Plt Morphology Comment Cancelled, RBC Morphology Cancelled 08/22/24 05:07: RBC Morphology Cancelled, Polychromasia Cancelled, HypochromasiaCancelled, Basophilic Stippling Cancelled, Anisocytosis Cancelled, Microcytosis Cancelled, Macrocytosis Cancelled, Spherocytes Cancelled, Sickle Cells Cancelled, Target Cells Cancelled, Tear Drop Cells Cancelled, Ovalocytes Cancelled, Stomatocytes Cancelled, Leung-Belleair Bodies Cancelled, [place]ney Cells Cancelled, Bite Cells Cancelled, Crenated Cell Cancelled, Acanthocytes (Spur) Cancelled, Rouleaux Cancelled, Schistocytes Cancelled, Sodium 139, Potassium 3.6, Chloride 112 H, Carbon Dioxide 17.8 L, Anion Gap 9, BUN 20 H, Creatinine 0.93, Estim Creat Clear Calc 83.95, Est GFR (MDRD) Non-Af 93, BUN/Creatinine Ratio 21.3 H, Glucose 98, Calcium 8.3 08/22/24 06:08: WBC 4.6, RBC 2.62 L, Hgb 8.0 L, Hct 24.4 L, MCV 93.1, MCH 30.5, MCHC 32.8, RDW Std Deviation 41.3, RDW Coeff of Eyal 12.2, Plt Count 101 L, MPV 10.7, Immature Gran % (Auto) 0.200, Neut % (Auto) 68.5, Lymph % (Auto) 18.6 L, [place] % (Auto) 8.0, Eos % (Auto) 4.5, Baso % (Auto) 0.2, Absolute Neuts (auto) 3.2, Absolute Lymphs (auto) 0.86, Nucleated RBC % 0 Micro: Microbiology 08/18/24 18:59 Urine, Catheterized Urine Culture - Preliminary Gram positive quintin Aerococcus urinae 08/21/24 15:11 Nasal Secretion MRSA (PCR) - Final Assessment and Plan . Assessment and plan: IMPRESSIONS: 1. Sepsis Clinical concern for underlying UTI as precipitating etiology for the patient's hypotension and altered mental status. - s/p sepsis bundle - Continue antimicrobials, pending culture results. - continue stress dose steroids to once daily. - Once the patient's hydrocortisone has been discontinued, recommend resuming home Florinef. 2. Encephalopathy Improved. Most likely metabolic in etiology in the setting of #1. CT head was unremarkable. - patient does have a known history of schizoaffective disorder along with underlying dementia. - communication affected by baseline limitations 3. Left intertrochanteric fracture - s/p ORIF - wound looks good - PT proceeding per protocol 4. Known history of adrenal insufficiency Given the patient's overall clinical stability, we will plan to decrease his hydrocortisone to once daily. - once stress dose steroids are discontinued, the patient's Florinef will need to be resumed. 5. History of COPD/seizure disorder/chronic kidney disease/BPH/hypertension Complicates care, management, recovery and prognosis. Continue Keppra as ordered. Critical Care Time: 50 minutes The entirety of this encounter was done via Telemedicine Physical Exam Const alert General Appearance: uncooperative and contractures Orientation / Consciousness: awake Exam Limitations: behavioral limitations HEENT normocephalic Head and Scalp: normal to inspection Nose: mucous membranes and turbinates abnormal Eyes General Eye: normal appearance of both eyes EOM: EOM abnormal Neck full ROM Chest inspection of chest normal Resp normal respiratory effort Cardio regular rate Neuro Neuro Narrative: Tardive dyskinesia movements of tongue Speech: speech abnormal Psych Attitude: paranoid Activity / Motor Behavior: psychomotor slowing Thought Process: incoherent Subjective Subjective Events reviewed. No major changes noted since last seen. He remains dysarthric difficult to understand but can communicate some needs. Hemodynamically stable. 08/22/24 1237 <Electronically signed by Edwin Espinal MD> Cosigner Signature (if applicable): CC: ~ Signed [facility] Work Phone: [phone] 774-165006-21-2025 Progress note Author Marciano Guerin [facility] Note Date/Time August 21, 2024 2:19 pm [facility] Medical Records Department [address] [place] [address] Progress Note - Hospitalist 08/21/24 1411 MR#: [id number] Acct: [id number] Name: NANDO OCHOA Rep #:[id number] : 1960 63 From: Marciano Saeed PCP: Dr. Ashley Dickey MD Status:ADM IN Location: [place] [address]- 1 Reason for Visit Reason for Visit: Diagnoses Sepsis, unspecified organism (08/19/24) Unspecified dementia, unspecified severity, with agitation (08/19/24) Schizoaffective disorder, unspecified (08/19/24) Depression, unspecified (08/19/24) Anxiety disorder, unspecified (08/19/24) Metabolic encephalopathy (08/19/24) Acute cystitis without hematuria (08/19/24) Other abnormalities of breathing (08/19/24) Severe sepsis with septic shock (08/19/24) Fracture of unspecified part of neck of left femur, initial encounter for closedfracture (08/19/24) Displaced intertrochanteric fracture of left femur, initial encounter for closedfracture (08/19/24) Personal history of other mental and behavioral disorders (08/19/24) Personal history of other diseases of the nervous system and sense organs (08/19/24) Objective Data Objective Data Vital Signs: Vital Signs Temp Pulse Resp BP Pulse Ox O2 Del Method O2 Flow Rate 99.7 F H 65 18 106/64 96 Nasal Cannula 2 08/21/24 07:48 08/21/24 07:48 08/21/24 07:48 08/21/24 07:48 08/21/24 07:48 08/21/24 07:48 08/21/24 11:38 Oxygen Flow Rate (L/min) 2 Oxygen Delivery Method Nasal Cannula Weight: 162 lb 0.636 oz Body Mass Index (BMI) 23.1 Intake & Output: Intake and Output for Last 24 Hours 08/19/24 08/20/24 08/21/24 23:59 23:59 23:59 Intake Total 3372.91 / 3372.91 1056.5 / 1056.5 700 / 700 Output Total 3200 / 3900 2100 / 2350 1475 / 1475 Balance 172.91 / -527.09 -1043.5 / -1293.5 -775 / -775 Lab / Micro Data 08/20/24 08:50 08/20/24 08:50 Labs: Laboratory Results - last 24 hr 08/20/24 15:00: Vancomycin Trough 10.2 Micro: Microbiology 08/18/24 18:59 Urine, Catheterized Urine Culture - Preliminary Gram positive quintin Alpha hemolytic organism 08/18/24 18:50 Blood Culture (Wb) - Anticubital Right Blood Culture - Preliminary No growth in 48 hours. 08/18/24 18:54 Blood Culture (Wb) - Anticubital Left Blood Culture - Final Meth. resistant Staph. aureus 08/19/24 01:35 Mucosa - Nasopharyngeal Respiratory Panel (PCR) - Final Physical Exam Narrative Seen and examined Her mental status slightly better but still has garbled speech. I could not much understand his speech but he states no burning in urine. He could not tell me when he was last BM but CT abdomen shows fecaliths and stercoral colitis from ascending to rectosigmoid region. He denies abdominal pain and is not tender but history complete remains unobtainable Patient was admitted with hypotension generalized weakness and altered mental status. Unclear how he fractured his left hip but he complained of left hip andnot able to flex. Mild low-grade grade fever. Could not tell about dysuria or other symptoms. Physical exam General: Awake, orientation cannot be ascertained, HEENT: Atraumatic, PERRLA, EOMI, Normocephalic. Oral: No Gingival or Mucosal Lesions/ Ulcerations Neck: Supple, No JVD, Negative Carotid Bruits Chest wall/Lungs: Air entry diminished in bilateral lung bases. No crepitation/rhonchi Cardiovascular: Regular rate and rhythm, Normal S1,S2, systolic murmur Abdomen: firm lump palpable in the right paraumbilical/lumbar region, fecaloma, constipation. Bowel Sounds sluggish, soft, Non Tender, Non-Distended : Mills catheter no renal angle tenderness. No suprapubic tenderness. Extremities: No edema, Capillary Refill Less than 3 Seconds Skin: No rashes, No breakdown Musculoskeletal: Tenderness over left hip, flexed deformity. No Tenderness to Palpation of other joints or Extremities Neurological: Does not follow command therefore complete neuroexam unobtainable. No obvious focal lateralizing sign Psych/Mental Status: Flat affect, schizophrenia Assessment & Plan Assessment/Plan (1) Sepsis: QUALIFIERS: Sepsis type: sepsis due to unspecified organism Sepsis acute organ dysfunction status: with acute organ dysfunction Severe sepsis acute organ dysfunction type: encephalopathy Severe sepsis shock status:with septic shock Qualified Code(s): A41.9 - Sepsis, unspecified organism; R65.21 - Severe sepsis with septic shock; G93.41 - Metabolic encephalopathy (2) Acute cystitis without hematuria: (3) Acute respiratory insufficiency: (4) Acute metabolic encephalopathy: (5) Hip fracture: QUALIFIERS: Encounter type: initial encounter Fracture type: closed Laterality: left Qualified Code(s): S72.002A - Fracture of unspecified part of neck of left femur, initial encounter for closed fracture (6) History of anoxic brain injury: (7) History of schizophrenia: (8) Schizoaffective disorder: QUALIFIERS: Schizoaffective disorder type: unspecified Qualified Code(s): F25.9 - Schizoaffective disorder, unspecified (9) Anxiety and depression: (10) Dementia: QUALIFIERS: Dementia type: unspecified type Dementia severity: unspecified severity Dementia behavioral or psychological symptom: with agitation Qualified Code(s): F03.911 - Unspecified dementia, unspecified severity, with agitation PLAN: Plan 63-year-old gentleman [place] of altered mental status, low BP, generalized weak and found to be hypotensive. He was agitated as per ER physician but calm in the ICU 1. Hypotension, suspicion of septic shock, exact focus unclear but possible underlying UTI, suspicion of acute on chronic adrenal insufficiency: Patient fever, Tmax 100.5 Fahrenheit, low BP, 83/39, 68/47 and was on norepinephrine forshort time. Currently on empiric meropenem. History unobtainable regarding clinical symptoms to rule out UTI or pneumonia. Prelim urine culture is negative. Respiratory panel negative. Blood culture negative. Chest CTA negative for PE but shows minimal left pleural effusion/thickening, minimal atelectatic airspace in the left lower lobe with paraseptal emphysema. Therefore unlikely major pneumonic consolidation and patient also on room air with no hypoxia. Empirically on IV vancomycin and meropenem. ABG that revealedpH 7.42/pCO2 40.8 mmHg/PaO2 68 mmHg/HCO3 28 mmol/L on RA. ABG was essentially normal. CT abdomen pelvis shows diffuse thickening of bladder with suspicion ofchronic bladder outlet obstruction versus cystitis with mild prostatomegaly. 08/20: Clinical concern of sepsis due to UTI: History regarding lower urinary tract symptoms remain unobtainable. Continue antimicrobial. Patient received IV fluid in ED as per sepsis protocol. 08/21: Blood culture positive of MRSA. On IV vancomycin and Zosyn. Urine culture prelim gram-positive quintin, alphahemolytic organism. Respiratory panel negative. 2. Acute Metabolic Encephalopathy in the setting of previously known Anoxic Brain Injury, Schizophrenia, Schizoaffective disorder, Depression with Anxiety and Dementia; of unclear type. CT shows no evidence of acute intracranial abnormality 08/20: Encephalopathy looks better Acute Comminuted Displaced Left Intertrochanteric Fracture incidentally noted on CT this admission and perioperative evaluation: Patient left hip is flexed, no movement. Incidentally CT abdomen shows acute commuted displaced left intertrochanteric fracture for which femur x-ray showed the same but reported nondisplaced. Orthopedic surgeon is consulted. Discussed with anesthesiologist. Twelve-lead EKG NSR at 60 bpm, QTc 400 ms. 2D echo ordered. I think patient is moderate perioperative risk for hip surgery. History of COPD, hypertension and dyslipidemia but no history of CAD. 08/20: Patient going for left hip surgery. 2D echo EF 70% no evidence of diastolic dysfunction. Mild to moderate aortic stenosis, mean AV gradient 20.1 mmHg. 08/21: Patient had left hip cephalomedullary fixation on 08/20. Operative area nontender,. No bruise or hematoma visible. 5. Possible acute on chronic adrenal insufficiency; on fludrocortisone and hydrocortisone twice daily: Give hydrocortisone 50 mg IV TID and check cortisol level. 08/21: Hydrocortisone was discontinued and changed to fludrocortisone home medication. 08/22: Serum sodium high 150. IV fluid D5W ordered. 6. Severe impacted fecalith and stercoral colitis from ascending to rectosigmoid region: Discussed with Dr. Pacheco. CT abdomen reviewed and shows impacted fecalith in the right side colon, stretching of rectosigmoid region andrectum. Soapsuds enema ordered by patient is going for surgery and afterwards, will need mineral oil, neostigmine after discontinuation of hydrocortisone (severe interaction), enema and possible colonoscopy 08/21: Discussed with the pharmacist and neostigmine dose was ordered. Discussedwith the charge nurse and patient RN, flow for possible side effects like bradycardia, increased tracheobronchial and oral secretions. Hydrocortisone wasdiscontinued yesterday because of drug-drug interaction. History of admission here from May 10, 2023 to May 14, 2023 for for acute hypoxic respiratory failure due to a combination of influenza A and aspiration pneumonia in setting of previously known schizophrenia complicated by toxic encephalopathy - Noted. 7. Essential hypertension; on propranolol twice daily - Hold scheduled antihypertensives because of hypotension 8. Hyperlipidemia; on atorvastatin - Resume statin as previous. 9. History of tobacco abuse with subsequent asthma/COPD; on as needed albuterolplus nicotine replacement - Noted with no evidence of acute flare at this time. Continue as needed albuterol and nicotine replacement as before. 10. Seizure disorder; on divalproex - Check valproic acid level and replace with IV levetiracetam as there is a significant potential adverse drug interaction with meropenem. 11. Chronic oral dysphagia - Noted with patient currently n.p.o. and with swallow study pending. 12. IBS; of constipation type on lactulose twice daily - Restart this agent when patient able to tolerate oral intake. 13. BPH; with history of obstructive uropathy on tamsulosin - Resume tamsulosinwhen patient is able to tolerate oral intake. CKD; stage II - Stable with serum creatinine of 1.19 mg/dL, BUN of 22 mg/dL andEGFR of 69 mL/min present on admission. Chronic pancytopenia with superimposed iron deficiency anemia - WBC of 7.7K, hemoglobin of 9.9 g/dL and platelet count of 114K present on admission. H&H 8.3/25.4%. Platelet count 201,000. WBC count normal 17. Chronicvitamin D deficiency - Maintain vitamin D supplement when patient can safely tolerate oral intake. 18. OA; with polyarthropathy - Stable. Give acetaminophen as outlined in #1. 19. DVT/GI prophylaxis - Enoxaparin 40 mg sq daily plus SCD's. Pantoprazole 40mg IV daily. Total time of the visit including total time spent in counseling or coordinationof care, (more than 50% of the total time, spent in obtaining medical information from nurses and other ancillary care providers ,explaining to the patient about labs, imaging, diagnosis and management of active complex medical conditions), , review of labs and imaging is 35 minutes. Clinical Impression(s) from Imaging Studies Chest X-Ray 08/18/24 19:06 IMPRESSION: NEGATIVE SINGLE VIEW OF THE CHEST. Reading Location: [place] [address] Abdomen/Pelvis CT 08/19/24 00:30 IMPRESSION: Moderate osteopenia. Acute comminuted displaced left intertrochanteric fracture. Moderate gastroparesis. Moderate amount of fecal residue in the large bowel suggestive of constipation with associated mild stercoral colitis of the rectosigmoid colon. Mild chronic multifocal scarring of the kidneys. Distended, trabeculated bladder. Diffuse thickening of the bladder. Chronic bladder outlet obstruction versus cystitis. Mild prostatomegaly with midline defect of the prostate, probably from prior TURP. Mild bilateral fullness of the collecting systems, probably reflux from distended bladder. Bilateral scattered simple renal cysts are noted with the largest measuring 5 mm. Right renal nonobstructing stone measuring 5 mm. Reading Location: [facility] Brain CT 08/19/24 00:30 IMPRESSION: No CT evidence of an acute brain abnormality. Reading Location: [facility] Chest CTA 08/19/24 00:30 IMPRESSION: No demonstrated pulmonary embolism or arterial dissection. Minimal left pleural effusion/thickening. Minimal passive atelectatic airspace disease of the left lower lobe. Paraseptal emphysema. Moderate coronary artery calcifications. Multinodular thyroid goiter without tracheal narrowing or deviation. Minimal pericardial effusion. [facility] Venous Doppler Study 08/19/24 02:35 Interpretation Summary Deep veins of the lower extremities are bilaterally patent and compressible segmentally. There is no evidence of deep vein thrombosis on either side. Valvular competence appears intact within the proximal deep venous systems bilaterally. The great saphenous veins appear bilaterally patent and compressible segmentally. Veins were not imaged below the knee due to patient combativeness and lack of cooperation. Ordering Physician: Robert Huizar Referring Physician: Ashley Dickey Performed By: Naty Parmar, [place], RVT Femur X-Ray 08/19/24 07:13 IMPRESSION: Intertrochanteric fracture, nondisplaced, suspected [facility] Echocardiogram 08/19/24 08:42 Interpretation Summary The estimated ejection fraction is 70 %. No evidence for diastolic dysfunction. Mild to moderate aortic stenosis. Ordering Physician: Marciano Guerin Referring Physician: ASHLEY DICKEY Performed By: Jacinda Cedeno RDCS Charges/Coding Addendum Addendum: Total time of the visit including total time spent in counseling or coordinationof care, (more than 50% of the total time, spent in obtaining medical information from nurses and other ancillary care providers ,explaining to the patient about labs, imaging, diagnosis and management of active complex medical conditions), discussion with the systems security analyst, pharmacist regarding diffuse fecalith in colon and possible stercoral colitis, review of labs and imaging is 35 minutes. Visit Charges Inpatient E&M: 47635 Subs Hosp L3 08/21/24 1417 <Electronically signed by Marciano Guerin MD> Cosigner Signature (if applicable): CC: ~ Signed [facility] Work Phone: 1(851) 927-466006-21-2025 Consult note Author Maribel Hood [facility] Note Date/Time August 21, 2024 2:11 pm [facility] Medical Records Department [address] [place] [address] Pharmacokinetic/Renal -Consult 08/21/24 1233 MR#: [id number] Acct: [id number] Name: NANDO OCHOA Rep #:[id number] : 1960 63 From: Maribel Hood PCP: Dr. Ashley Dickey MD Status:ADM IN Location: [place] [address] Consult Antibiotic Management Pharmacy has been consulted to manage selected antibiotic: Vancomycin Type of Intervention Type of Consult: New start Suspected Infection Suspected Infection: Bacteremia Labs Labs: Sodium 150 mmol/L (133-145) H 08/20/24 08:50 Potassium 3.8 mmol/L (3.3-5.1) 08/20/24 08:50 Chloride 120 mmol/L (98-108) H 08/20/24 08:50 Carbon Dioxide 20.9 mmol/L (21.0-32.0) L 08/20/24 08:50 Anion Gap 9 (5-15) 08/20/24 08:50 BUN 18 mg/dL (4-19) 08/20/24 08:50 Creatinine 0.99 mg/dL (0.70-1.20) 08/20/24 08:50 Est GFR (MDRD) Non-Af 86 (>60) 08/20/24 08:50 BUN/Creatinine Ratio 18.1 RATIO (10-20) 08/20/24 08:50 Glucose 120 mg/dL (70-99) H 08/20/24 08:50 Vancomycin Trough 10.2 ug/mL (5.0-15.0) 08/20/24 15:00 Microbiology Microbiology: Microbiology 08/18/24 18:59 Urine, Catheterized Urine Culture - Preliminary Gram positive quintin Alpha hemolytic organism 08/18/24 18:50 Blood Culture (Wb) - Anticubital Right Blood Culture - Preliminary No growth in 48 hours. 08/18/24 18:54 Blood Culture (Wb) - Anticubital Left Blood Culture - Final Meth. resistant Staph. aureus 08/19/24 01:35 Mucosa - Nasopharyngeal Respiratory Panel (PCR) - Final Pharmacy Plan for Drug Dosing Pharmacy Plan for Drug Dosing: NEW START IV VANCOMYCIN Consulting Physician: Truong Indication: Bacteremia Goal Trough: 15-20 SrCr: 0.99 mg/dL (08/20/24) CrCl: 74 mL/min Comments: Patient as on vanco yesterday, re-started today. Last dose given was 750mg 08/20 @ 0242. Did do another loading dose (2000mg given 08/21 @ 1217) as ithas been >24 hours since last dose and pt had a trough >12 hours ago that was subtherapeutic (10.2mg/dl). Vancomycin Dose: Will start 1000mg Q12 (08/22 @ 0000) and get a trough prior to 4th dose of new regimen. Pending Level: 08/22/24 @ 2330 Pharmacy Service will continue to monitor and adjust dosing as required. 08/21/24 3244 <Electronically signed by Maribel Hood> Date _ Maribel Hood 08/21/24 1411 <Electronically signed by Marciano Guerin MD> Cosigner Signature (if applicable): Date Marciano Guerin MD CC: ~ Signed [facility] Work Phone: 1(781) 908-354906-20-2025 Consult note Author Elizabeht Lee [facility] Note Date/Time August 20, 2024 3:48 pm [facility] Medical Records Department [address] [place] [address] Anesthesia Postop Eval II 08/20/24 1548 MR#: [id number] Acct: [id number] Name: NANDO OCHAO Rep #:[id number] : 1960 63 From: Elizabeth Lee SCALLOP CUTTER PCP: Dr. Ashley Dickey MD Status:ADM IN Y Race: C Location: [place] [address] 1-1 Anesthesia Postop Eval I Sum Postop Eval Completion status Anesthesia document: Postop Eval 1 completed: Yes Anesthesia Postop Eval I Summary Anesthesia Postop Eval I Summary: Anesthesia Postop Eval I: Assessment Summary 3 Airway patent Yes 08/20/24 13:49 [email or web address] Spontaneous unlabored Yes 08/20/24 13:49 [email or web address] [email or web address] respirations Mental status Awake,Calm 08/20/24 13:49 [email or web address] [email or web address] nausea No 08/20/24 13:49 [email or web address] [email or web address] Vomiting No 08/20/24 13:49 [email or web address] [email or web address] Anesthesia Postop Eval I: Fluid Summary Crystalloid volume administer 750 08/20/24 13:49 [email or web address] [email or web address] (ml) Colloids volume administered ( ml) Blood Product volume administered (ml) Total IV fluid infused 750 08/20/24 13:49 [email or web address] Anesthesia Postop Eval I: Summary Notes Anesthesia Complication No 08/20/24 13:49 [email or web address] Anesthesia Complication Comment: Post-operative progress note Anesthesia: Postop Eval II Evaluation Mental status: Awake Pain Level: 3 nausea: No Vomiting: No 08/20/24 1548 <Electronically signed by Elizabeth dewey SCALLOP CUTTER> Date _ Elizabeth Lee SCALLOP CUTTER Cosigner Signature: Date CC: ~ Signed [facility] Work Phone: 1(667) 198-870906-20-2025 Progress note [facility] Note Date/Time August 20, 2024 2:06 pm [facility] Medical Records Department [address] [place] [address] Progress Note - Orthopedic 08/20/24 1400 MR#: [id number] Acct: [id number] Name: NANDO OCHOA Rep #:[id number] : 1960 63 From: Amauri Kruegerherington PCP: Dr. Ashley Dickey MD Status:ADM IN Location: ICU ICU02-1 Subjective Subjective Seen and examined. Patient is comfortable. No complaints Objective Data Objective Data Vital Signs: Vital Signs Temp Pulse Resp BP Pulse Ox O2 Del Method O2 Flow Rate 97.5 F L 69 16 123/66 H 95 Nasal Cannula 3 08/20/24 13:49 08/20/24 13:50 08/20/24 13:50 08/20/24 13:50 08/20/24 13:50 08/20/24 13:50 08/20/24 13:50 Oxygen Flow Rate (L/min) 3 Oxygen Delivery Method Nasal Cannula Weight: 151 lb 0.266 oz Body Mass Index (BMI) 21.6 Intake & Output: Intake and Output for Last 24 Hours 08/18/24 08/19/24 08/20/24 23:59 23:59 23:59 Intake Total 3120 / 3120 3372.91 / 3372.91 585 / 585 Output Total 3200 / 3900 1150 / 1150 Balance 3120 / 3120 172.91 / -527.09 -565 / -565 Lab / Micro Data 08/20/24 08:50 08/20/24 08:50 Labs: Laboratory Results - last 24 hr 08/20/24 08:50: WBC 5.4, RBC 2.72 L, Hgb 8.3 L, Hct 25.4 L, MCV 93.4, MCH 30.5, MCHC 32.7, RDW Std Deviation 42.9, RDW Coeff of Eyal 12.6, Plt Count 101 L, MPV 10.5, Immature Gran % (Auto) 0.400, Neut % (Auto) 81.2 H, Lymph % (Auto) 11.2 L,[place] % (Auto) 6.8, Eos % (Auto) 0.2, Baso % (Auto) 0.2, Absolute Neuts (auto) 4.4, Absolute Lymphs (auto) 0.61 L, Nucleated RBC % 0, Sodium 150 H, Potassium 3.8, Chloride 120 H, Carbon Dioxide 20.9 L, Anion Gap 9, BUN 18, Creatinine 0.99, Estim Creat Clear Calc 74.00, Est GFR (MDRD) Non-Af 86, BUN/Creatinine Ratio 18.1, Glucose 120 H, Calcium 8.8 08/20/24 11:10: Blood Type A POSITIVE, Antibody Screen NEGATIVE Micro: Microbiology 08/18/24 18:59 Urine, Catheterized Urine Culture - Preliminary Mixed Gram Positive Organisms 08/18/24 18:54 Blood Culture (Wb) - Anticubital Left Blood Culture - Preliminary 08/19/24 01:35 Mucosa - Nasopharyngeal Respiratory Panel (PCR) - Final Radiography Diagnostic Testing: Radiology Impression Venous Doppler Study 08/19/24 02:35 Interpretation Summary Deep veins of the lower extremities are bilaterally patent and compressible segmentally. There is no evidence of deep vein thrombosis on either side. Valvular competence appears intact within the proximal deep venous systems bilaterally. The great saphenous veins appear bilaterally patent and compressible segmentally. Veins were not imaged below the knee due to patient combativeness and lack of cooperation. Ordering Physician: Robert Huizar Referring Physician: Ashley Dickey Performed By: Naty Parmar, [place], RVT Physical Exam Const no apparent distress Extremity Extremity Narrative: Left thigh and hip dressing clean dry intact compartments are soft he has palpable pedal pulse Assessment & Plan Assessment/Plan (1) Intertrochanteric fracture of left femur: QUALIFIERS: Encounter type: initial encounter Fracture type: closed Fracture alignment: displaced Qualified Code(s): S72.142A - Displaced intertrochanteric fracture of left femur, initial encounter for closed fracture PLAN: Plan Status post left hip supplementally fixation for intertrochanteric femur fracture, mechanism unknown. Patient is weightbearing as tolerated with physical therapy occupational therapy Recommend DVT prophylaxis SCDs CHUCK hose Lovenox 40 mg subcu daily for 3 weeks. Patient should follow-up in the office in 2 weeks for wound check and staple removal Dressing to be undisturbed for 5 days postop then should be removed and incisions need to be cleaned daily with antibacterial soap and warm water daily after this point. Dry dressing should be placed with medical tape and change daily as well. Patient may shower after initial 5 postoperative days and allow warm soapy water run over the incisions but he is not to submerge the incisions in tub or pool. Feel free to reach out with any questions or concerns. 08/20/24 1404 <Electronically signed by Amauri Hermosillo DO> Cosigner Signature (if applicable): CC: ~ Signed ADDENDUM by Dr. Amauri Hermosillo DO on 08/20/24 at 1406 Addendum Eliquis is fine as an anticoagulant 2.5 mg twice daily, or the Lovenox 40 mg subcu daily. 08/20/24 1406<Electronically signed by Amauri Hermosillo DO> Cosigner Signature (if applicable): cc: ~* Signed [facility] Work Phone: [phone]) 418-420006-20-2025 Consult note Author Vazquez Laureano [facility] Note Date/Time August 20, 2024 1:49 pm [facility] Medical Records Department [address] [place] [address] Anesthesia Postop Eval I 08/20/24 1346 MR#: [id number] Acct: [id number] Name: NANDO OCHOA Rep #:[id number] : 1960 63 From: Vazquez BENÍTEZ PCP: Dr. Ashley Dickey MD Status:ADM IN Y Race: C Location: ICU ICU02 - Anesthesia: Postop Eval I Current Vital Signs Temperature: 97.5 F Pulse Rate: 75 Blood Pressure: 145/79 Respiratory Rate: 18 Pulse Ox: 98 Oxygen Delivery Method: Venturi Mask Oxygen Flow Rate (L/min): 6 Assessment Airway patent: Yes Spontaneous unlabored respirations: Yes Mental status: Awake and Calm nausea: No Vomiting: No Anesthesia Complication: No Fluid Hydration Crystalloid volume administer (ml): 750 Total IV fluid infused: 750 Progress Note Anesthesia document: Postop Eval 1 completed: Yes 08/20/24 1349 <Electronically signed by Vazquez Laureano CRNA> Date _ Vazquez Laureano SCALLOP CUTTER Cosigner Signature: Date CC: ~ Signed [facility] Work Phone: [phone]) [phone] Procedure [facility] 08-20-2024 Consult [facility] Note Date/Time August 20, 2024 11:4 4am [facility] Medical Records Department [address] [place] [address] Pre-Anesthesia Evaluation 08/20/24 1054 MR#: [id number] Acct: [id number] Name: NANDO OCHOA Rep #:[id number] : 1960 63 From: Mt Marroquin MD PCP: Dr. Ashley Dickey MD Status:ADM IN Y Race: C Location: ICU ICU02 - ASA Classification* ASA Classification ASA Classification: 3 Assessment & Plan Anesthesia* Anesthesia Assessment Anesthesia Assessment: Discussed sedation and/or anesthesia options, risks, benefits, and alternatives with patient/parents/legal guardian/POA. Questions invited. The patient/parents/legal guardian/POA seems to understand and agrees to proceedwith anesthesia plan. Reviewed the physical assessment, medical history, allergy history and patient home medications list prior to surgery/procedure/anesthetic and documented any changes. Performed airway and anesthesia risk assessments. Anesthesia Type Anesthesia Type: General (Patient has mild to moderate aortic stenosis. Avoid high heart rates and low blood pressure. Phenylephrine is drug of choice.) History Source History Obtained from:: Patient and Chart Anesthesia Focused Assessment* Temperature: 99.8 F Pulse Rate: 61 Blood Pressure: 133/61 Respiratory Rate: 18 Pulse Ox: 93 Oxygen Delivery Method: Room Air Oxygen Flow Rate (L/min): 3 Airway Assessment Mouth opens: >3 cm Mallampati Score: II Teeth Condition: Missing (Patient is edentulous.) Neck Range of motion (ROM): Full ROM Labs Anesthesia Preop lab: CBC WBC 5.4 K/mm3 (4.4-11.0) 08/20/24 08:50 08/20/24 RBC 2.72 M/mm3 (4.6-6.2) L 08/20/24 08:50 08/20/24 Hgb 8.3 g/dL (13.0-16.5) L 08/20/24 08:50 08/20/24 Hct 25.4 % (40-54) L 08/20/24 08:50 08/20/24 Plt Count 101 K/mm3 (150-450) L 08/20/24 08:50 08/20/24 CHEMISTRY Potassium 3.8 mmol/L (3.3-5.1) 08/20/24 08:50 08/20/24 Sodium 150 mmol/L (133-145) H 08/20/24 08:50 08/20/24 Magnesium 2.7 mg/dL (1.6-2.6) H 05/14/23 06:30 05/14/23 Phosphorus 3.4 mg/dL (2.5-4.9) 05/14/23 06:30 05/14/23 BUN 18 mg/dL (4-19) 08/20/24 08:50 08/20/24 Creatinine 0.99 mg/dL (0.70-1.20) 08/20/24 08:50 08/20/24 Glucose 120 mg/dL (70-99) H 08/20/24 08:50 08/20/24 POC Glucose 120 mg/dL (74-106) H 05/13/23 12:43 05/13/23 TSH 1.040 uIU/mL (0.300-4.200) 08/18/24 18:59 08/01 10/25 COAG Pre-Assessment Diagnosis/Proposed Procedure Planned Operative Procedure(s): Left cephalomedullary fracture fixation. Anesthesia History Anesthesia History - osteopathic physician: Anesthesia History - osteopathic physician Hx Hospitalization Any Problems With Anesthesia Cholinesterase deficiency You/Your Family Experience fever (hyperthermia) with Relationship Recent Exposure to Contagious Disease Does patient have nerve stimulator Patient instructed to have device shut off --Does patient have Pacemaker or ICD? When Was Last Pacemaker Check QUESTION #4 FULL TEXT: You/Your Family Experience fever (hyperthermia) with Anesthesia Last Oral Intake Last Oral intake: Last Oral Intake NPO since Meds taken in AM with sips of water? Meds patient instructed to take am of surgery Any additional information?: Yes NPO since: 00:00 PONV PONV - osteopathic physician: PONV - osteopathic physician Female HX of Motion Sickness HX of N/V After Surgery Non-Smoker Duration of Surgery greater than 60 minutes Number of Risk Factors PONV Score Height & Weight Height & Weight: Anesthesia: Height & Weight Height 5 ft 10 in 08/19/24 11:09 Weight: 68.5 kg 08/20/24 06:00 Body Mass Index (BMI) 21.6 08/20/24 06:00 Respiratory Assessment Respiratory Assessment - osteopathic physician: Respiratory Tract Infection Hx - osteopathic physician Hx Respiratory Tract Infection Any additional information?: Yes Hx Respiratory Tract Infection: No STOP Sleep Apnea STOP Sleep Apnea - osteopathic physician: STOP Sleep Apnea - osteopathic physician Hx Hypertension Yes 08/19/24 02:16 Hx Sleep Apnea No 08/19/24 02:16 CPAP BIPAP Do you snore loudly (louder No 08/19/24 02:16 than talking or can be heard Do you often feel tired/ No 08/19/24 02:16 fatigued/ sleepy during daytime? Has anyone observed you stop No 08/19/24 02:16 breathing during sleep? STOP Results Negative 08/19/24 02:16 QUESTION #5 FULL TEXT : Do you snore loudly (louder than talking or can be heard through closed doors)? Tobacco Use History Tobacco Use History - osteopathic physician: Tobacco Use History - osteopathic physician Tobacco Use Smoking Status Current every day smoker 08/19/24 02:16 Hx Tobacco Use No 08/19/24 02:16 Years Smoking Packs Smoked per Day Smoking Cessation Date was within the last 15 years Hx Smoking Cessation Date Hx Smoking Cessation Counseling Hematologic Medial History Hematologic Hx - osteopathic physician: Hematologic Medical Hx - cogeneration technician Hx of Blood Transfusion Hx of Transfusion in last 3 Months Date of Last Transfusion (if within last 3 months) Ever experience any problems with transfusion(s)? Specify any problems Hx of Preganancy in last 3 Months Nurse Filling Out Transfusion & Questions: Date: Time: Patient unable to answer at Yes 08/19/24 02:16 this time (ie. confused, unrespo /Reproduction History /Reproductive History - osteopathic physician: /Reproductive Hx- osteopathic physician Hx Now Gestational Age (in weeks): EDC: Hx Hx Para Hx Section SAB Active Medications Active Medications: Current Medications Generic Name Dose Route Start Last Admin Trade Name Freq PRN Reason Stop Dose Admin Acetaminophen 650 mg 08/19/24 01:30 Acetaminophen 650 Mg Suppository RC Q6H PRN PRN Pain 1-10 or Fever Albuterol Sulfate 2.5 mg 08/19/24 01:30 Albuterol 2.5 Mg/3 Ml Vial.Neb. INHALATION Q6H PRN PRN Sob &/Or Wheezing Bisacodyl 10 mg 08/19/24 01:30 Bisacodyl 10 Mg Suppository RC DAILY PRN PRN Constipation Enoxaparin Sodium 40 mg 08/19/24 10:00 08/20/24 10:12 Enoxaparin 40 Mg/0.4 Ml Syringe SC Not Given DAILY FRANCISCO Hydrocortisone Sodium Succinate 50 mg 08/21/24 10:00 Hydrocortisone Sod Succinate 100 Mg/2 Ml Vial IV Q24 FRANCISCO Meropenem 1 gm/ Sodium 120 mls @ 97 mls/hr 08/19/24 10:00 08/20/24 10:36 Chloride IV 97 mls/hr BID FRANCISCO Administration Vancomycin IV-PHARMACY TO DOSE 500 mls @ 250 mls/hr 08/19/24 01:30 1 each/ Sodium Chloride IV PRN PRN Rx to Dose Protocol Pantoprazole Sodium 40 mg/ 100 mls @ 330 mls/hr 08/19/24 10:00 08/20/24 10:33 Sodium Chloride IV 330 mls/hr Q24 FRANCISCO Administration Sodium Chloride 250 mls @ 15 mls/hr 08/19/24 01:31 08/20/24 02:42 IV 15 mls/hr .[id number] PRN Administration Saline Flush Sodium Chloride 250 mls @ 15 mls/hr 08/19/24 01:31 IV .[id number] PRN Additional IVPB Infusion Vancomycin HCl 750 mg/ Sodium 265 mls @ 250 mls/hr 08/19/24 14:00 08/20/24 03:50 Chloride IV Infused Q12H FRANCISCO Infusion Levetiracetam 1,000 mg in 100 mls @ 400 mls/hr 08/19/24 10:00 08/20/24 10:42 IV Infused Q12 FRANCISCO Infusion Morphine Sulfate 2 mg 08/19/24 11:31 08/19/24 12:08 Morphine 2 Mg/Ml Syringe IV 2 mg Q4H PRN PRN Administration Pain Score 6-10 or Pre PT/OT Nicotine 7 mg 08/19/24 01:30 08/20/24 10:12 Nicotine 7 Mg Patch TD Not Given DAILY FRANCISCO Ondansetron HCl 4 mg 08/19/24 01:30 08/19/24 01:47 Ondansetron 4 Mg/2 Ml Vial IV 4 mg Q4H PRN PRN Administration NAUSEA/VOMITING Polyethylene Glycol 17 gm 08/20/24 10:00 08/20/24 10:12 Polyethylene Glycol 3350 17 Gm Packet PO Not Given DAILY FRANCISCO Senna/Docusate Sodium 2 tablet 08/19/24 11:35 08/20/24 10:12 Senna/Docusate Sodium 1 Tablet PO Not Given BID FRANCISCO Sodium Chloride 10 - 40 ml 08/19/24 01:31 0.9% Saline Lock 10 Ml Syringe IV UD PRN SALINE FLUSH Vancomycin Protocol 1 lab 08/20/24 12:30 Vancomycin Trough/Random Due MC 08/20/24 14:30 DAILY [facility] History History of schizophrenia Bradycardia Asthma GERD (gastroesophageal reflux disease) History of anoxic brain injury Adrenal insufficiency COPD (chronic obstructive pulmonary disease) Dysphagia BPH (benign prostatic hyperplasia) Polyarthropathy IBS (irritable bowel syndrome) Schizoaffective disorder Schizophrenia Mood disorder Anxiety and depression Chronic anemia HLD (hyperlipidemia) HTN (hypertension) Seizure disorder Dementia Hydrocele Home Medications ?Medication ?Instructions ?Recorded ?Last Taken ?Type acetaminophen 325 mg tablet 650 mg PO Q4H PRN Headache 05/26/17 Unknown History (Tylenol) albuterol sulfate 2.5 mg/3 mL 2.5 mg inhalation Q6H TN N PRN Sob 05/26/17 Unknown History (0.083 %) solution for nebulization &/Or Wheezing aluminum-mag hydroxide-simethicone 30 ml PO Q4H PRN TN N Indigestion 05/26/17 U nknown History 400 mg-400 mg-40 mg/5 mL oral susp (Mag-Al Plus Extra Strength) aripiprazole 5 mg tablet 5 mg PO QHS blood thinner 06/05/17 20:45 History 1 benzocaine 15 mg-menthol 3.6 mg 1 blaire buccal PRN PRN S ore Throat 05/26/17 Unknown History lozenges (Cepacol Sore Throat (benzocaine-menthol)) bisacodyl 10 mg rectal suppository 10 mg RECTAL DAILY PRN PRN 05/26/17 Unknown History Constipation divalproex 125 mg capsule,delayed 125 mg PO Q8H schizo phrednia 05/26/17 06/05/17 20:45 History release sprinkle (Depakote 1 Sprinkles) fludrocortisone 0.1 mg tablet 0.05 mg PO DAILY@0800 ab n labs 05/26/17 Unknown History guaifenesin 100 mg/5 mL oral liquid 10 ml PO Q4H PRN P RN Cough 05/26/17 Unknown History haloperidol 1 mg tablet 1 mg PO TID anxiety 05/26/17 06/05/17 20:45 History 1 lithium carbonate 300 mg 300 mg PO BID biopolar 05/2606/05/17 20:45 History tablet,extended release 1 magnesium hydroxide 400 mg/5 mL 30 ml PO DAILY PRN PRN Constipation 05/26/17 Unknown History oral suspension polyethylene glycol 3350 17 gram 17 g PO DAILY constip ation 05/26/17 Unknown History oral powder packet tamsulosin 0.4 mg capsule (Flomax) 0.4 mg PO DAILY uri nary retention 05/26/17 Unknown History atorvastatin 40 mg tablet 40 mg PO QHS hyperlipidemia 05/10/23 Unknown History diphenhydramine HCl 50 mg/mL 50 mg IM Q6H PRN agitatio n 05/10/23 Unknown History injection solution folic acid 400 mcg tablet 400 mcg PO DAILY deficiency 05/10/23 Unknown History haloperidol lactate 5 mg/mL 5 mg IM Q3H PRN agitation 05/10/23 Unknown History injection solution hydrocortisone 10 mg tablet 10 mg PO BID adrenal 05/09 Unknown History insuffienciency hydrocortisone 5 mg tablet 5 mg PO DAILY adrenal insuf fiencien 05/10/23 Unknown History lactulose 10 gram/15 mL oral 20 g PO BID abn labs 11/24 Unknown History solution (Enulose) lorazepam 0.5 mg tablet (Ativan) 0.5 mg PO Q6H PRN anx iety 05/10/23 Unknown History lorazepam 1 mg tablet 1 mg PO TID anxiety 05/10/23 Unknown History melatonin 3 mg capsule 6 mg PO QHS insom 05/10/23 U nknown History nicotine (polacrilex) 2 mg buccal 2 mg mucous membrane Q2H PRN 05/10/23 Unknown History lozenge nicotine cravings nicotine 10 mg inhalation 1 inh inhalation Q2H PRN trixie otine 05/10/23 Unknown History cartridge (Nicotrol) cravings paroxetine HCl 20 mg tablet 20 mg PO DAILY depression 05/10/23 Unknown History aripiprazole 10 mg tablet 10 mg PO DAILY 08/18/24 Unkn own History benztropine 1 mg tablet 1 mg PO BID 08/18/24 Unknown History calcium carbonate (Calcium 500) 500 mg PO BID 08/18/24 Unknown History cholecalciferol (vitamin D3) 50 4,000 unit PO DAILY Unknown History mcg (2,000 unit) tablet (Vitamin D3) docusate sodium 100 mg capsule 100 mg PO DAILY 5 Unknown History (Col-Rite) loperamide 2 mg tablet 4 mg PO .COMPLEX PRN loose s tool 08/18/24 Unknown History paroxetine HCl 20 mg tablet (Paxil) 20 mg PO DAILY Unknown History propranolol 80 mg tablet 80 mg PO BID 08/18/24 Unknow n History Allergy/AdvReac Type Severity Reaction Status Date / Time ciprofloxacin (From Cipro) AdvReac Hives Verified 11/12/15 19:37 codeine AdvReac Hives Verified 11/12/15 19:37 Penicillins AdvReac Hives Verified 11/12/15 19:37 sulfamethoxazole (From AdvReac Hives Verified 11/12/15 19:37 Bactrim) trimethoprim (From Bactrim) AdvReac Hives Verified 11/12/15 19:37 Social History household members: none housing: residential Smoking Status: Current every day smoker tobacco type: cigarettes alcohol intake: never substance use type: does not use Review of Systems (Anesthesia) ROS Narrative System reviewed and no additional complaints, except as documented. 08/20/24 1144 <Electronically signed by Mt childress MD> Date _ Mt Marroquin MD Cosigner Signature: Date CC: ~ Signed [facility] Work Phone: [phone]) 335-434306-20-2025 Progress note Author Marciano Guerin [facility] Note Date/Time August 20, 2024 9:21 am [facility] Medical Records Department [address] [place] [address] Progress Note - Hospitalist 08/20/24 0851 MR#: [id number] Acct: [id number] Name: NANDO OCHAO Rep #:[id number] : 1960 63 From: Marciano Saeed PCP: Dr. Ashley Dickey MD Status:ADM IN Location: ICU ICU02-1 Reason for Visit Reason for Visit: Diagnoses Sepsis, unspecified organism (08/19/24) Unspecified dementia, unspecified severity, with agitation (08/19/24) Schizoaffective disorder, unspecified (08/19/24) Depression, unspecified (08/19/24) Anxiety disorder, unspecified (08/19/24) Metabolic encephalopathy (08/19/24) Acute cystitis without hematuria (08/19/24) Other abnormalities of breathing (08/19/24) Severe sepsis with septic shock (08/19/24) Fracture of unspecified part of neck of left femur, initial encounter for closedfracture (08/19/24) Displaced intertrochanteric fracture of left femur, initial encounter for closedfracture (08/19/24) Personal history of other mental and behavioral disorders (08/19/24) Personal history of other diseases of the nervous system and sense organs (08/19/24) Objective Data Objective Data Vital Signs: Vital Signs Temp Pulse Resp BP Pulse Ox O2 Del Method O2 Flow Rate 99.8 F H 61 18 133/61 H 93 Nasal Cannula 3 08/20/24 07:00 08/20/24 07:00 08/20/24 07:00 08/20/24 07:00 08/20/24 07:00 08/20/24 07:00 08/20/24 07:00 Oxygen Flow Rate (L/min) 3 Oxygen Delivery Method Nasal Cannula Weight: 151 lb 0.266 oz Body Mass Index (BMI) 21.6 Intake & Output: Intake and Output for Last 24 Hours 08/18/24 08/19/24 08/20/24 23:59 23:59 23:59 Intake Total 3120 / 3120 3372.91 / 3372.91 265 / 265 Output Total 3200 / 3900 1050 / 1050 Balance 3120 / 3120 172.91 / -527.09 -785 / -785 Lab / Micro Data 08/19/24 08:55 08/19/24 08:55 Labs: Laboratory Results - last 24 hr 08/19/24 08:55: WBC 4.9, RBC 2.66 L, Hgb 8.1 L, Hct 24.6 L, MCV 92.5, MCH 30.5, MCHC 32.9, RDW Std Deviation 41.6, RDW Coeff of Eyal 12.5, Plt Count 76 L, MPV 10.3, Immature Gran % (Auto) 0.400, Neut % (Auto) 84.3 H, Lymph % (Auto) 9.2 L, [place] % (Auto) 5.9, Eos % (Auto) 0.2, Baso % (Auto) 0.0, Absolute Neuts (auto) 4.1, Absolute Lymphs (auto) 0.45 L, Nucleated RBC % 0, Differential Comment SCANNED, Platelet Estimate MOD DEC, Sodium 145, Potassium 3.7, Chloride 118 H, Carbon Dioxide 19.3 L, Anion Gap 8, BUN 14, Creatinine 0.94, Estim Creat Clear Calc 78.16, Est GFR (MDRD) Non-Af 91, BUN/Creatinine Ratio 15.0, Glucose 128 H, Calcium 8.3 Micro: Microbiology 08/18/24 18:59 Urine, Catheterized Urine Culture - Preliminary Mixed Gram Positive Organisms 08/18/24 18:54 Blood Culture (Wb) - Anticubital Left Blood Culture - Preliminary 08/19/24 01:35 Mucosa - Nasopharyngeal Respiratory Panel (PCR) - Final Radiography Diagnostic Testing: Radiology Impression Venous Doppler Study 08/19/24 02:35 Interpretation Summary Deep veins of the lower extremities are bilaterally patent and compressible segmentally. There is no evidence of deep vein thrombosis on either side. Valvular competence appears intact within the proximal deep venous systems bilaterally. The great saphenous veins appear bilaterally patent and compressible segmentally. Veins were not imaged below the knee due to patient combativeness and lack of cooperation. Ordering Physician: Robert Huizar Referring Physician: Ashley Dickey Performed By: Naty Parmar RDCS, RVT Echocardiogram 08/19/24 08:42 Interpretation Summary The estimated ejection fraction is 70 %. No evidence for diastolic dysfunction. Mild to moderate aortic stenosis. Ordering Physician: Marciano Guerin Referring Physician: ASHLEY DICKEY Performed By: Jacinda Cedeno RDCS Physical Exam Narrative Seen and examined Patient is still has garbled speech but looks better. I could not much understand his speech but he states no burning in urine. He could not tell me when he was last BM but CT abdomen shows fecaliths and stercoral colitis from ascending to rectosigmoid region. He denies abdominal pain and is not tender but history complete remains unobtainable Patient was admitted with hypotension generalized weakness and altered mental status. Unclear how he fractured his left hip but he complained of left hip andnot able to flex. Mild low-grade grade fever. Could not tell about dysuria or other symptoms. Physical exam General: Awake, orientation cannot be ascertained, HEENT: Atraumatic, PERRLA, EOMI, Normocephalic. Oral: No Gingival or Mucosal Lesions/ Ulcerations Neck: Supple, No JVD, Negative Carotid Bruits Chest wall/Lungs: Air entry diminished in bilateral lung bases. No crepitation/rhonchi Cardiovascular: Regular rate and rhythm, Normal S1,S2, systolic murmur Abdomen: firm lump palpable in the right paraumbilical/lumbar region. Bowel Sounds sluggish, soft, Non Tender, Non-Distended : Mills catheter no renal angle tenderness. No suprapubic tenderness. Extremities: No edema, Capillary Refill Less than 3 Seconds Skin: No rashes, No breakdown Musculoskeletal: Tenderness over left hip, flexed deformity. No Tenderness to Palpation of other joints or Extremities Neurological: Does not follow command therefore complete neuroexam unobtainable. No obvious focal lateralizing sign Psych/Mental Status: Flat affect, schizophrenia Assessment & Plan Assessment/Plan (1) Sepsis: QUALIFIERS: Sepsis type: sepsis due to unspecified organism Sepsis acute organ dysfunction status: with acute organ dysfunction Severe sepsis acute organ dysfunction type: encephalopathy Severe sepsis shock status:with septic shock Qualified Code(s): A41.9 - Sepsis, unspecified organism; R65.21 - Severe sepsis with septic shock; G93.41 - Metabolic encephalopathy (2) Acute cystitis without hematuria: (3) Acute respiratory insufficiency: (4) Acute metabolic encephalopathy: (5) Hip fracture: QUALIFIERS: Encounter type: initial encounter Fracture type: closed Laterality: left Qualified Code(s): S72.002A - Fracture of unspecified part of neck of left femur, initial encounter for closed fracture (6) History of anoxic brain injury: (7) History of schizophrenia: (8) Schizoaffective disorder: QUALIFIERS: Schizoaffective disorder type: unspecified Qualified Code(s): F25.9 - Schizoaffective disorder, unspecified (9) Anxiety and depression: (10) Dementia: QUALIFIERS: Dementia type: unspecified type Dementia severity: unspecified severity Dementia behavioral or psychological symptom: with agitation Qualified Code(s): F03.911 - Unspecified dementia, unspecified severity, with agitation PLAN: Plan 63-year-old gentleman [facility] for evaluation of altered mental status, low BP, generalized weak and found to be hypotensive. He was agitated as per ER physician but calm in the ICU 1. Hypotension, suspicion of septic shock, exact focus unclear but possible underlying UTI, suspicion of acute on chronic adrenal insufficiency: Patient fever, Tmax 100.5 Fahrenheit, low BP, 83/39, 68/47 and was on norepinephrine forshort time. Currently on empiric meropenem. History unobtainable regarding clinical symptoms to rule out UTI or pneumonia. Prelim urine culture is negative. Respiratory panel negative. Blood culture negative. Chest CTA negative for PE but shows minimal left pleural effusion/thickening, minimal atelectatic airspace in the left lower lobe with paraseptal emphysema. Therefore unlikely major pneumonic consolidation and patient also on room air with no hypoxia. Empirically on IV vancomycin and meropenem. ABG that revealedpH 7.42/pCO2 40.8 mmHg/PaO2 68 mmHg/HCO3 28 mmol/L on RA. ABG was essentially normal. CT abdomen pelvis shows diffuse thickening of bladder with suspicion ofchronic bladder outlet obstruction versus cystitis with mild prostatomegaly. 08/20: Clinical concern of sepsis due to UTI: History regarding lower urinary tract symptoms remain unobtainable. Continue antimicrobial. Patient received IV fluid in ED as per sepsis protocol. 2. Acute Metabolic Encephalopathy in the setting of previously known Anoxic Brain Injury, Schizophrenia, Schizoaffective disorder, Depression with Anxiety and Dementia; of unclear type. CT shows no evidence of acute intracranial abnormality 08/20: Encephalopathy looks better Acute Comminuted Displaced Left Intertrochanteric Fracture incidentally noted on CT this admission and perioperative evaluation: Patient left hip is flexed, no movement. Incidentally CT abdomen shows acute commuted displaced left intertrochanteric fracture for which femur x-ray showed the same but reported nondisplaced. Orthopedic surgeon is consulted. Discussed with anesthesiologist. Twelve-lead EKG NSR at 60 bpm, QTc 400 ms. 2D echo ordered. I think patient is moderate perioperative risk for hip surgery. History of COPD, hypertension and dyslipidemia but no history of CAD. 08/20: Patient going for left hip surgery. 2D echo EF 70% no evidence of diastolic dysfunction. Mild to moderate aortic stenosis, mean AV gradient 20.1 mmHg. 5. Possible acute on chronic adrenal insufficiency; on fludrocortisone and hydrocortisone twice daily: Give hydrocortisone 50 mg IV TID and check cortisol level. 6. Severe impacted fecalith and stercoral colitis from ascending to rectosigmoid region: Discussed with Dr. Pacheco. CT abdomen reviewed and shows impacted fecalith in the right side colon, stretching of rectosigmoid region andrectum. Soapsuds enema ordered by patient is going for surgery and afterwards, will need mineral oil, neostigmine after discontinuation of hydrocortisone (severe interaction), enema and possible colonoscopy History of admission here from May 10, 2023 to May 14, 2023 for for acute hypoxic respiratory failure due to a combination of influenza A and aspiration pneumonia in setting of previously known schizophrenia complicated by toxic encephalopathy - Noted. 7. Essential hypertension; on propranolol twice daily - Hold scheduled antihypertensives because of hypotension 8. Hyperlipidemia; on atorvastatin - Resume statin as previous. 9. History of tobacco abuse with subsequent asthma/COPD; on as needed albuterolplus nicotine replacement - Noted with no evidence of acute flare at this time. Continue as needed albuterol and nicotine replacement as before. 10. Seizure disorder; on divalproex - Check valproic acid level and replace with IV levetiracetam as there is a significant potential adverse drug interaction with meropenem. 11. Chronic oral dysphagia - Noted with patient currently n.p.o. and with swallow study pending. 12. IBS; of constipation type on lactulose twice daily - Restart this agent when patient able to tolerate oral intake. 13. BPH; with history of obstructive uropathy on tamsulosin - Resume tamsulosinwhen patient is able to tolerate oral intake. CKD; stage II - Stable with serum creatinine of 1.19 mg/dL, BUN of 22 mg/dL andEGFR of 69 mL/min present on admission. Chronic pancytopenia with superimposed iron deficiency anemia - WBC of 7.7K, hemoglobin of 9.9 g/dL and platelet count of 114K present on admission. H&H 8.3/25.4%. Platelet count 201,000. WBC count normal 17. Chronicvitamin D deficiency - Maintain vitamin D supplement when patient can safely tolerate oral intake. 18. OA; with polyarthropathy - Stable. Give acetaminophen as outlined in #1. 19. DVT/GI prophylaxis - Enoxaparin 40 mg sq daily plus SCD's. Pantoprazole 40mg IV daily. Clinical Impression(s) from Imaging Studies Chest X-Ray 08/18/24 19:06 IMPRESSION: NEGATIVE SINGLE VIEW OF THE CHEST. Reading Location: [id number] Abdomen/Pelvis CT 08/19/24 00:30 IMPRESSION: Moderate osteopenia. Acute comminuted displaced left intertrochanteric fracture. Moderate gastroparesis. Moderate amount of fecal residue in the large bowel suggestive of constipation with associated mild stercoral colitis of the rectosigmoid colon. Mild chronic multifocal scarring of the kidneys. Distended, trabeculated bladder. Diffuse thickening of the bladder. Chronic bladder outlet obstruction versus cystitis. Mild prostatomegaly with midline defect of the prostate, probably from prior TURP. Mild bilateral fullness of the collecting systems, probably reflux from distended bladder. Bilateral scattered simple renal cysts are noted with the largest measuring 5 mm. Right renal nonobstructing stone measuring 5 mm. [facility] 08/19/24 00:30 IMPRESSION: No CT evidence of an acute brain abnormality. Reading [facility] Chest CTA 08/19/24 00:30 IMPRESSION: No demonstrated pulmonary embolism or arterial dissection. Minimal left pleural effusion/thickening. Minimal passive atelectatic airspace disease of the left lower lobe. Paraseptal emphysema. Moderate coronary artery calcifications. Multinodular thyroid goiter without tracheal narrowing or deviation. Minimal pericardial effusion. Reading [facility] Venous Doppler Study 08/19/24 02:35 Interpretation Summary Deep veins of the lower extremities are bilaterally patent and compressible segmentally. There is no evidence of deep vein thrombosis on either side. Valvular competence appears intact within the proximal deep venous systems bilaterally. The great saphenous veins appear bilaterally patent and compressible segmentally. Veins were not imaged below the knee due to patient combativeness and lack of cooperation. Ordering Physician: Robert Huizar Referring Physician: Ashley Dickey Performed By: Naty Parmar, [place], RVT Femur X-Ray 08/19/24 07:13 IMPRESSION: Intertrochanteric fracture, nondisplaced, suspected Reading [facility] Echocardiogram 08/19/24 08:42 Interpretation Summary The estimated ejection fraction is 70 %. No evidence for diastolic dysfunction. Mild to moderate aortic stenosis. Ordering Physician: Marciano Guerin Referring Physician: ASHLEY DICKEY Performed By: Jacinda Cedeno RDCS Charges/Coding Visit Charges Inpatient E&M: 77752 Subs Hosp L3 08/20/24 0921 <Electronically signed by Marciano Guerin MD> Cosigner Signature (if applicable): CC: ~ Signed [facility] Work Phone: 1(121) 708-521506-20-2025 Progress note Author Lupillo Porras [facility] Note Date/Time August 20, 2024 8:22 am [facility] Medical Records Department [address] [place] [address] Progress Note - Administrative Supervisor 08/20/2452 MR#: [id number] Acct: [id number] Name: NANDO OCHOA Rep #:[id number] : 1960 63 From: Lupillo Porras DO PCP: Dr. Ashley Dickey MD Status:ADM IN Location: ICU ICU02-1 Assessment & Plan Assessment/Plan (1) Sepsis: QUALIFIERS: Sepsis type: sepsis due to unspecified organism Sepsis acute organ dysfunction status: with acute organ dysfunction Severe sepsis acute organ dysfunction type: encephalopathy Severe sepsis shock status:with septic shock Qualified Code(s): A41.9 - Sepsis, unspecified organism; R65.21 - Severe sepsis with septic shock; G93.41 - Metabolic encephalopathy PLAN: Plan RECOMMENDATIONS: 1. Continue empiric antimicrobials, pending culture results. 2. Okay to wean stress dose steroids to once daily. 3. Tentative plans for orthopedic surgery intervention later today. 4. Lovenox for DVT prophylaxis. 5. PT/OT evaluations once surgical intervention is completed. IMPRESSIONS: 1. Sepsis Clinical concern for underlying UTI as precipitating etiology for the patient's hypotension and altered mental status. The patient did receive supplemental IV fluid hydration and is currently without need for vasopressor support. Continueantimicrobials, pending culture results. Given the patient's hemodynamic stability, we will decrease stress dose steroids to once daily. Once the patient's hydrocortisone has been discontinued, recommend resuming home Florinef. 2. Encephalopathy Improved. Most likely metabolic in etiology in the setting of #1. CT head was unremarkable. The patient does have a known history of schizoaffective disorderalong with underlying dementia. 3. Left intertrochanteric fracture Orthopedic surgery planning for surgical intervention later today. 4. Known history of adrenal insufficiency Given the patient's overall clinical stability, we will plan to decrease his hydrocortisone to once daily. Ultimately, once stress dose steroids are discontinued, the patient's Florinef will need to be resumed. 5. History of COPD/seizure disorder/chronic kidney disease/BPH/hypertension Complicates care, management, recovery and prognosis. Continue Keppra as ordered. Physical therapy to evaluate the patient once medically stabilized. This note was generated with Familonet dictation software. It may contain incorrectwords, spelling, and punctuation that were not noted in checking the note beforesigning. Subjective Subjective The patient was seen and examined at the bedside this morning. Events from the last 24 hours have been reviewed. The patient currently has a low-grade fever but remains otherwise hemodynamically stable on 3 L/min via nasal cannula. The patient is documented to be overall net +2.5 L for the hospitalization. He is much more alert and interactive this morning. Objective Data Objective Data The patient's most recent lab work, culture data and imaging studies have all been personally reviewed. Surface echocardiogram demonstrated normal LV size and function with an ejection fraction of 70%. Lower extremity Doppler study was negative for DVT. Respiratory viral panel was negative. Blood and urine cultures are pending. Vital Signs: Vital Signs Temp Pulse Resp BP Pulse Ox O2 Del Method O2 Flow Rate 99.7 F H 76 17 125/74 H 95 Nasal Cannula 3 08/20/24 06:00 08/20/24 06:00 08/20/24 06:00 08/20/24 06:08/20/24 06:00 08/20/24 06:00 08/20/24 06:00 Oxygen Flow Rate (L/min) 3 Oxygen Delivery Method Nasal Cannula Weight: 151 lb 0.266 oz Body Mass Index (BMI) 21.6 Intake & Output: Intake and Output for Last 24 Hours 08/18/24 08/19/24 08/20/24 23:59 23:59 23:59 Intake Total 3120 / 3120 3372.91 / 3372.91 265 / 265 Output Total 3200 / 3900 1050 / 1050 Balance 3120 / 3120 172.91 / -527.09 -785 / -785 Lab / Micro Data Attestation: I reviewed the patient's lab results. 08/19/24 08:55 08/19/24 08:55 Labs: Laboratory Results - last 24 hr 08/19/24 08:55: WBC 4.9, RBC 2.66 L, Hgb 8.1 L, Hct 24.6 L, MCV 92.5, MCH 30.5, MCHC 32.9, RDW Std Deviation 41.6, RDW Coeff of Eyal 12.5, Plt Count 76 L, MPV 10.3, Immature Gran % (Auto) 0.400, Neut % (Auto) 84.3 H, Lymph % (Auto) 9.2 L, [place] % (Auto) 5.9, Eos % (Auto) 0.2, Baso % (Auto) 0.0, Absolute Neuts (auto) 4.1, Absolute Lymphs (auto) 0.45 L, Nucleated RBC % 0, Differential Comment SCANNED, Platelet Estimate MOD DEC, Sodium 145, Potassium 3.7, Chloride 118 H, Carbon Dioxide 19.3 L, Anion Gap 8, BUN 14, Creatinine 0.94, Estim Creat Clear Calc 78.16, Est GFR (MDRD) Non-Af 91, BUN/Creatinine Ratio 15.0, Glucose 128 H, Calcium 8.3 Micro: Microbiology 08/18/24 18:54 Blood Culture (Wb) - Anticubital Left Blood Culture - Preliminary 08/18/24 18:59 Urine, Catheterized Urine Culture - Preliminary Culture exhibits no growth. 08/19/24 01:35 Mucosa - Nasopharyngeal Respiratory Panel (PCR) - Final Radiography Diagnostic Testing: Radiology Impression Venous Doppler Study 08/19/24 02:35 Interpretation Summary Deep veins of the lower extremities are bilaterally patent and compressible segmentally. There is no evidence of deep vein thrombosis on either side. Valvular competence appears intact within the proximal deep venous systems bilaterally. The great saphenous veins appear bilaterally patent and compressible segmentally. Veins were not imaged below the knee due to patient combativeness and lack of cooperation. Ordering Physician: Robert Huizar Referring Physician: Ashley Dickey Performed By: Naty Parmar RDCS, RVT Femur X-Ray 08/19/24 07:13 IMPRESSION: Intertrochanteric fracture, nondisplaced, suspected Reading Location: [facility] Echocardiogram 08/19/24 08:42 Interpretation Summary The estimated ejection fraction is 70 %. No evidence for diastolic dysfunction. Mild to moderate aortic stenosis. Ordering Physician: Marciano Guerin Referring Physician: ASHLEY DICKEY Performed By: Jacinda Cedeno RDCS Physical Exam Const Constitutional Narrative: Chronically ill in appearance. More alert and interactive than yesterday. HEENT normocephalic and head/scalp atraumatic Teeth and Gingiva: poor dentition Eyes PERRL, EOMs intact bilaterally and conjunctivae normal Neck supple General: trachea midline Chest inspection of chest normal Resp normal respiratory effort Auscultation: Negative for rales, rhonchi or wheezes Cardio regular rate and regular rhythm GI normal to inspection, nondistended, normoactive bowel sounds Extremity no clubbing, cyanosis or edema Skin no rashes or lesions noted Neuro CN's II-XII intact bilaterally and moves all extremities Psych Activity / Motor Behavior: restless Mood & Affect: flat affect Charges/Coding Visit Charges Inpatient E&M: 41486 Subs Hosp L2 08/20/24 0822 <Electronically signed by Lupillo Porras DO> Cosigner Signature (if applicable): CC: ~ Signed [facility] Work Phone: 1(663) 556-702506-19-2025 Consult note Author Lupillo Porras [facility] Note Date/Time August 19, 2024 12:0 3pm [facility] Medical Records Department [address] [place] [address] Consultation - Administrative Supervisor 08/19/24 0646 MR#: [id number] Acct: [id number] Name: NANDO OCHOA Rep #:[id number] : 1960 63 From: Lupillo Porras PCP: Dr. Ashley Dickey MD Status:ADM IN Location: ICU ICU02-1 Assessment & Plan Assessment/Plan (1) Sepsis: QUALIFIERS: Sepsis type: sepsis due to unspecified organism Sepsis acute organ dysfunction status: with acute organ dysfunction Severe sepsis acute organ dysfunction type: encephalopathy Severe sepsis shock status:with septic shock Qualified Code(s): A41.9 - Sepsis, unspecified organism; R65.21 - Severe sepsis with septic shock; G93.41 - Metabolic encephalopathy PLAN: Plan RECOMMENDATIONS: 1. Continue empiric antimicrobials, pending culture results. 2. Continue stress dose steroids as ordered. 3. The patient should remain n.p.o., pending improvement in mental status. 4. Tentative plans for orthopedic surgery intervention tomorrow. 5. Lovenox for DVT prophylaxis. IMPRESSIONS: 1. Sepsis Clinical concern for underlying UTI as precipitating etiology for the patient's hypotension and altered mental status. The patient did receive supplemental IV fluid hydration and is currently without need for vasopressor support. Continueantimicrobials, pending culture results. 2. Encephalopathy Most likely metabolic in etiology in the setting of #1. CT head was unremarkable. The patient does have a known history of schizoaffective disorderalong with underlying dementia. 3. Left intertrochanteric fracture Orthopedic surgery planning for surgical intervention tomorrow. 4. Known history of adrenal insufficiency Given the patient's presenting symptoms, agree with continuing stress dose steroids as ordered. 5. History of COPD/seizure disorder/chronic kidney disease/BPH/hypertension Complicates care, management, recovery and prognosis. Continue Keppra as ordered. Physical therapy to evaluate the patient once medically stabilized. This note was generated with SolePoweration software. It may contain incorrectwords, spelling, and punctuation that were not noted in checking the note beforesigning. HPI Consult Data Date of Consult: 08/19/24 HPI Narrative Reason for Consultation: Sepsis HPI Narrative: The patient is a 63-year-old male, with a history as outlined below, who presented to the emergency department on August 18 with altered mental status. The patient has a known history of COPD, underlying seizure disorder, schizophrenia, dementia, history of adrenal insufficiency, chronic kidney disease, BPH and hypertension. History pertinent to the patient's hospitalization was obtained primarily via chart review, the patient is a poor historian and not able to provide any additional details. On presentation to the emergency department, the patient was documented to be afebrile with a blood pressure of 84/41 mmHg. Laboratory evaluation revealed a normal white blood cell count. D-dimer was elevated at 9.09. ABG was notable for a pH of 7.42 with a pCO2 of 41 and PO2 of 68. Chemistry profile was unremarkable. Lactate was within normal limits. Urine analysis was positive for leukocyte esterase. Toxicology screen was positive for benzodiazepines. CTabdomen/pelvis demonstrated a acute displaced left intertrochanteric fracture along with diffuse thickening of the bladder with concern for chronic bladder obstruction versus cystitis. CT head was unremarkable. CTA chest showed no evidence for pulmonary embolism but did demonstrate bilateral emphysematous changes and atelectasis in the left lower lobe. The patient was ordered to receive supplemental IV fluids and was initiated on antimicrobials along with stress dose steroids. The patient was admitted to the medical intensive care unit for further management. This morning, the patient remains clinically stable. Although he transiently required Levophed support last night, the patient has been weaned off of vasopressors. The patient was evaluated by orthopedic surgery, who has tentative plans to proceed with surgical correction of his fracture tomorrow. [facility] Medical History (Updated 08/19/24 @ 10:[address] Jose Olvera MD) History of schizophrenia Bradycardia Asthma GERD (gastroesophageal reflux disease) History of anoxic brain injury Adrenal insufficiency COPD (chronic obstructive pulmonary disease) Dysphagia BPH (benign prostatic hyperplasia) Polyarthropathy IBS (irritable bowel syndrome) Schizoaffective disorder Schizophrenia Mood disorder Anxiety and depression Chronic anemia HLD (hyperlipidemia) HTN (hypertension) Seizure disorder Dementia Hydrocele Home Medications ?Medication ?Instructions ?Recorded ?Last Taken ?Type acetaminophen 325 mg tablet 650 mg PO Q4H PRN Headache 05/26/17 Unknown History (Tylenol) albuterol sulfate 2.5 mg/3 mL 2.5 mg inhalation Q6H TN N PRN Sob 05/26/17 Unknown History (0.083 %) solution for nebulization &/Or Wheezing aluminum-mag hydroxide-simethicone 30 ml PO Q4H PRN TN N Indigestion 05/26/17 Unknown History 400 mg-400 mg-40 mg/5 mL oral susp (Mag-Al Plus Extra Strength) aripiprazole 5 mg tablet 5 mg PO QHS blood thinner 06/05/17 20:45 History 1 benzocaine 15 mg-menthol 3.6 mg 1 blaire buccal PRN PRN S ore Throat 05/26/17 Unknown History lozenges (Cepacol Sore Throat (benzocaine-menthol)) bisacodyl 10 mg rectal suppository 10 mg RECTAL DAILY PRN PRN 05/26/17 Unknown History Constipation divalproex 125 mg capsule,delayed 125 mg PO Q8H schizo phrednia 05/26/17 06/05/17 20:45 History release sprinkle (Depakote 1 Sprinkles) fludrocortisone 0.1 mg tablet 0.05 mg PO DAILY@0800 ab n labs 05/26/17 Unknown History guaifenesin 100 mg/5 mL oral liquid 10 ml PO Q4H PRN P RN Cough 05/26/17 Unknown History haloperidol 1 mg tablet 1 mg PO TID anxiety 05/26/17 06/05/17 20:45 History 1 lithium carbonate 300 mg 300 mg PO BID biopolar 05/2606/05/17 20:45 History tablet,extended release 1 magnesium hydroxide 400 mg/5 mL 30 ml PO DAILY PRN PRN Constipation 05/26/17 Unknown History oral suspension polyethylene glycol 3350 17 gram 17 g PO DAILY constip ation 05/26/17 Unknown History oral powder packet tamsulosin 0.4 mg capsule (Flomax) 0.4 mg PO DAILY uri nary retention 05/26/17 Unknown History atorvastatin 40 mg tablet 40 mg PO QHS hyperlipidemia 05/10/23 Unknown History diphenhydramine HCl 50 mg/mL 50 mg IM Q6H PRN agitatio n 05/10/23 Unknown History injection solution folic acid 400 mcg tablet 400 mcg PO DAILY deficiency 05/10/23 Unknown History haloperidol lactate 5 mg/mL 5 mg IM Q3H PRN agitation 05/10/23 Unknown History injection solution hydrocortisone 10 mg tablet 10 mg PO BID adrenal 05/09 Unknown History insuffienciency hydrocortisone 5 mg tablet 5 mg PO DAILY adrenal insuf fiencien 05/10/23 Unknown History lactulose 10 gram/15 mL oral 20 g PO BID abn labs 11/24 Unknown History solution (Enulose) lorazepam 0.5 mg tablet (Ativan) 0.5 mg PO Q6H PRN anx iety 05/10/23 Unknown History lorazepam 1 mg tablet 1 mg PO TID anxiety 05/10/23 Unknown History melatonin 3 mg capsule 6 mg PO QHS insom 05/10/23 U nknown History nicotine (polacrilex) 2 mg buccal 2 mg mucous membrane Q2H PRN 05/10/23 Unknown History lozenge nicotine cravings nicotine 10 mg inhalation 1 inh inhalation Q2H PRN trixie otine 05/10/23 Unknown History cartridge (Nicotrol) cravings paroxetine HCl 20 mg tablet 20 mg PO DAILY depression 05/10/23 Unknown History aripiprazole 10 mg tablet 10 mg PO DAILY 08/18/24 Unkn own History benztropine 1 mg tablet 1 mg PO BID 08/18/24 Unknown History calcium carbonate (Calcium 500) 500 mg PO BID 08/18/24 Unknown History cholecalciferol (vitamin D3) 50 4,000 unit PO DAILY Unknown History mcg (2,000 unit) tablet (Vitamin D3) docusate sodium 100 mg capsule 100 mg PO DAILY 5 Unknown History (Col-Rite) loperamide 2 mg tablet 4 mg PO .COMPLEX PRN loose s tool 08/18/24 Unknown History paroxetine HCl 20 mg tablet (Paxil) 20 mg PO DAILY Unknown History propranolol 80 mg tablet 80 mg PO BID 08/18/24 Unknow n History Allergy/AdvReac Type Severity Reaction Status Date / Time ciprofloxacin (From Cipro) AdvReac Hives Verified 11/12/15 19:37 codeine AdvReac Hives Verified 11/12/15 19:37 Penicillins AdvReac Hives Verified 11/12/15 19:37 sulfamethoxazole (From AdvReac Hives Verified 11/12/15 19:37 Bactrim) trimethoprim (From Bactrim) AdvReac Hives Verified 11/12/15 19:37 Social History household members: none housing: residential Smoking Status: Current every day smoker tobacco type: cigarettes alcohol intake: never substance use type: does not use ROS ROS Narrative 10 systems were reviewed with pertinent positives as noted in the HPI above. Physical Exam Const Constitutional Narrative: Chronically ill in appearance. The patient remains confused and disoriented. HEENT normocephalic and head/scalp atraumatic Eyes PERRL, EOMs intact bilaterally and conjunctivae normal Neck supple General: trachea midline Chest inspection of chest normal Resp normal respiratory effort Auscultation: Negative for rales, rhonchi or wheezes Cardio regular rate and regular rhythm GI normal to inspection, nondistended, normoactive bowel sounds Extremity no clubbing, cyanosis or edema Skin no rashes or lesions noted Neuro CN's II-XII intact bilaterally and moves all extremities Psych Mood & Affect: flat affect Lab / Micro Data 08/19/24 08:55 08/19/24 08:55 Labs: Laboratory Results - last 24 hr 08/18/24 18:59: WBC 7.7, RBC 3.22 L, Hgb 9.9 L, Hct 29.7 L, MCV 92.2, MCH 30.7, MCHC 33.3, RDW Std Deviation 41.1, RDW Coeff of Eyal 12.3, Plt Count 114 L, MPV 10.8, Immature Gran % (Auto) 0.400, Neut % (Auto) 80.5 H, Lymph % (Auto) 11.0 L,[place] % (Auto) 6.7, Eos % (Auto) 1.3, Baso % (Auto) 0.1, Absolute Neuts (auto) 6.2, Absolute Lymphs (auto) 0.85, Nucleated RBC % 0, D-Dimer Quant (PE/DVT) 9.09H*, Sodium 139, Potassium 4.1, Chloride 107, Carbon Dioxide 25.1, Anion Gap 8, BUN 22 H, Creatinine 1.19, Estim Creat Clear Calc 61.56, Est GFR (MDRD) Non-Af 69, BUN/Creatinine Ratio 18.2, Glucose 137 H, Hemoglobin A1c 5.2, Lactic Acid 1.3, Calcium 9.6, Total Bilirubin 0.46, AST 15, ALT 10, Alkaline Phosphatase 117, Total Protein 6.0, Albumin 3.9, Globulin 2.2, Albumin/Globulin Ratio 1.8, TSH 1.040, Urine Color Yellow, Urine Clarity Sl. Cloudy, Urine pH 6.0, Ur Specific [place] 1.015, Urine Protein 30 H, Urine Glucose (UA) Normal, Urine Ketones 5 H, Urine Occult Blood 25 H, Urine Nitrite Negative, Urine Bilirubin Negative, Urine Urobilinogen 1 H, Ur Leukocyte Esterase 500 H, Urine RBC 0-5 SEEN, Urine WBC 50-100 SEEN, Ur Squamous Epith Cells 0 SEEN, Urine Bacteria 0 SEEN, Urine Mucus 0 SEEN, Urine Opiates Screen Cancelled, U Buprenorphine Qual Cancelled, Ur Oxycodone Screen Cancelled, Urine Methadone Screen Cancelled, Urine Fentanyl Screen Cancelled, Ur Barbiturates Screen Cancelled, Valproic Acid17 L, Ur Phencyclidine Scrn Cancelled, Ur Amphetamines Screen Cancelled, U Benzodiazepines Scrn Cancelled, [place] Cancelled, Urine Cocaine Screen Cancelled, U Cannabinoids Screen Cancelled, Ethyl Alcohol < 10.1 08/19/24 01:20: Vitamin B12 620, Cortisol AM Sample 16.10, [place] 0.82 08/19/24 03:00: Urine Opiates Screen NEGATIVE, U Buprenorphine Qual NEGATIVE, UrOxycodone Screen NEGATIVE, Urine Methadone Screen NEGATIVE, Urine Fentanyl Screen NEGATIVE, Ur Barbiturates Screen NEGATIVE, Ur Phencyclidine Scrn NEGATIVE, Ur Amphetamines Screen NEGATIVE, U Benzodiazepines Scrn PRESUMPTIVE POSITIVE, Urine Cocaine Screen NEGATIVE, U Cannabinoids Screen NEGATIVE ABG Data ABG results: ABG 08/18/24 19:29 Specimen Type ART Sample Site L Radial pH 7.42 Bicarbonate Actual 26.5 H Total CO2 28 Base Excess 2 O2 Saturation 94 L ABG pCO2 40.8 ABG pO2 68 L Shira Test Positive O2 Delivery Device Room Air Vent Mode Not entered Imaging Radiology Impression Chest X-Ray 08/18/24 19:06 IMPRESSION: NEGATIVE SINGLE VIEW OF THE CHEST. Reading Location: [place] [address] Abdomen/Pelvis CT 08/19/24 00:30 IMPRESSION: Moderate osteopenia. Acute comminuted displaced left intertrochanteric fracture. Moderate gastroparesis. Moderate amount of fecal residue in the large bowel suggestive of constipation with associated mild stercoral colitis of the rectosigmoid colon. Mild chronic multifocal scarring of the kidneys. Distended, trabeculated bladder. Diffuse thickening of the bladder. Chronic bladder outlet obstruction versus cystitis. Mild prostatomegaly with midline defect of the prostate, probably from prior TURP. Mild bilateral fullness of the collecting systems, probably reflux from distended bladder. Bilateral scattered simple renal cysts are noted with the largest measuring 5 mm. Right renal nonobstructing stone measuring 5 mm. Reading Location: [facility] Brain CT 08/19/24 00:30 IMPRESSION: No CT evidence of an acute brain abnormality. Reading Location: [facility] Chest CTA 08/19/24 00:30 IMPRESSION: No demonstrated pulmonary embolism or arterial dissection. Minimal left pleural effusion/thickening. Minimal passive atelectatic airspace disease of the left lower lobe. Paraseptal emphysema. Moderate coronary artery calcifications. Multinodular thyroid goiter without tracheal narrowing or deviation. Minimal pericardial effusion. Reading Location: [facility] Charges/Coding Visit Charges Inpatient E&M: 71937 Init Hosp L3 08/19/24 1203 <Electronically signed by Lupillo Porras DO> Cosigner Signature (if applicable): CC: Dr. Ashley Dickey MD~ Signed [facility] Work Phone: [phone] Discharge summary Author Jose Olvera [facility] Note Date/Time August 19, 2024 10:2 6am [facility] Medical Records Department [address] [place] [address] Emergency Department Summary 08/18/24 MR#: [id number] Acct: [id number] Name: NANDO OCHOA Rep #:[id number] : 1960 63 From: Jose Olvera MD PCP: Dr. Ashley Dickey MD Status:ADM IN Location: ICU ICU02-1 HPI History of Present Illness Chief Complaint: Alt LOC Detail of Chief Complaint: Altered mental status and hypotension Informant: EMS and SNF Onset/Context/Timing Onset: Today (Normally awake and alert but not oriented.) Context: Sudden Onset Timing: Continuous Quality: Patient is a rise hypotensive, altered mental status Location: Cardiovascular generalized Current Severity: Unable to determine Maximum Severity: Unable to determine Worsened by: Unknown Relieved by: Nothing Associated Symptoms Associated Symptoms: other (Unable to determine) Narrative Narrative: Patient is an elderly male. He was last admitted May 2023. Dr. Rodarte's discharge summary was reviewed. He was admitted for acute hypoxic respiratory failure due to influenza type A. He does have history of schizophrenia and personal history of other mental disorders and behavioral disorders. He arrivedby EMS because of altered mental status. He is not awake or alert. He is combative at times. Unable to obtain a history from patient. Prior similar symptoms: No Recent Illness/Hospitalization: No PFSH PFS Medical History (Updated 08/19/24 @ 10:[address] Jose Olvera MD) History of schizophrenia Bradycardia Asthma GERD (gastroesophageal reflux disease) History of anoxic brain injury Adrenal insufficiency COPD (chronic obstructive pulmonary disease) Dysphagia BPH (benign prostatic hyperplasia) Polyarthropathy IBS (irritable bowel syndrome) Schizoaffective disorder Schizophrenia Mood disorder Anxiety and depression Chronic anemia HLD (hyperlipidemia) HTN (hypertension) Seizure disorder Dementia Hydrocele Home Medications ?Medication ?Instructions ?Recorded ?Last Taken ?Type acetaminophen 325 mg tablet 650 mg PO Q4H PRN Headache 05/26/17 Unknown History (Tylenol) albuterol sulfate 2.5 mg/3 mL 2.5 mg inhalation Q6H TN N PRN Sob 05/26/17 Unknown History (0.083 %) solution for nebulization &/Or Wheezing aluminum-mag hydroxide-simethicone 30 ml PO Q4H PRN TN N Indigestion 05/26/17 Unknown History 400 mg-400 mg-40 mg/5 mL oral susp (Mag-Al Plus Extra Strength) aripiprazole 5 mg tablet 5 mg PO QHS blood thinner 06/05/17 20:45 History 1 benzocaine 15 mg-menthol 3.6 mg 1 blaire buccal PRN PRN S ore Throat 05/26/17 Unknown History lozenges (Cepacol Sore Throat (benzocaine-menthol)) bisacodyl 10 mg rectal suppository 10 mg RECTAL DAILY PRN PRN 05/26/17 Unknown History Constipation divalproex 125 mg capsule,delayed 125 mg PO Q8H schizo phrednia 05/26/17 06/05/17 20:45 History release sprinkle (Depakote 1 Sprinkles) fludrocortisone 0.1 mg tablet 0.05 mg PO DAILY@0800 ab n labs 05/26/17 Unknown History guaifenesin 100 mg/5 mL oral liquid 10 ml PO Q4H PRN P RN Cough 05/26/17 Unknown History haloperidol 1 mg tablet 1 mg PO TID anxiety 05/26/17 06/05/17 20:45 History 1 lithium carbonate 300 mg 300 mg PO BID biopolar 05/2606/05/17 20:45 History tablet,extended release 1 magnesium hydroxide 400 mg/5 mL 30 ml PO DAILY PRN PRN Constipation 05/26/17 Unknown History oral suspension polyethylene glycol 3350 17 gram 17 g PO DAILY constip ation 05/26/17 Unknown History oral powder packet tamsulosin 0.4 mg capsule (Flomax) 0.4 mg PO DAILY uri nary retention 05/26/17 Unknown History atorvastatin 40 mg tablet 40 mg PO QHS hyperlipidemia 05/10/23 Unknown History diphenhydramine HCl 50 mg/mL 50 mg IM Q6H PRN agitatio n 05/10/23 Unknown History injection solution folic acid 400 mcg tablet 400 mcg PO DAILY deficiency 05/10/23 Unknown History haloperidol lactate 5 mg/mL 5 mg IM Q3H PRN agitation 05/10/23 Unknown History injection solution hydrocortisone 10 mg tablet 10 mg PO BID adrenal 05/09 Unknown History insuffienciency hydrocortisone 5 mg tablet 5 mg PO DAILY adrenal insuf fiencien 05/10/23 Unknown History lactulose 10 gram/15 mL oral 20 g PO BID abn labs 11/24 Unknown History solution (Enulose) lorazepam 0.5 mg tablet (Ativan) 0.5 mg PO Q6H PRN anx iety 05/10/23 Unknown History lorazepam 1 mg tablet 1 mg PO TID anxiety 05/10/23 Unknown History melatonin 3 mg capsule 6 mg PO QHS insom 05/10/23 U nknown History nicotine (polacrilex) 2 mg buccal 2 mg mucous membrane Q2H PRN 05/10/23 Unknown History lozenge nicotine cravings nicotine 10 mg inhalation 1 inh inhalation Q2H PRN trixie otine 05/10/23 Unknown History cartridge (Nicotrol) cravings paroxetine HCl 20 mg tablet 20 mg PO DAILY depression 05/10/23 Unknown History aripiprazole 10 mg tablet 10 mg PO DAILY 08/18/24 Unkn own History benztropine 1 mg tablet 1 mg PO BID 08/18/24 Unknown History calcium carbonate (Calcium 500) 500 mg PO BID 08/18/24 Unknown History cholecalciferol (vitamin D3) 50 4,000 unit PO DAILY Unknown History mcg (2,000 unit) tablet (Vitamin D3) docusate sodium 100 mg capsule 100 mg PO DAILY 5 Unknown History (Col-Rite) loperamide 2 mg tablet 4 mg PO .COMPLEX PRN loose s tool 08/18/24 Unknown History paroxetine HCl 20 mg tablet (Paxil) 20 mg PO DAILY Unknown History propranolol 80 mg tablet 80 mg PO BID 08/18/24 Unknow n History Allergy/AdvReac Type Severity Reaction Status Date / Time ciprofloxacin (From Cipro) AdvReac Hives Verified 11/12/15 19:37 codeine AdvReac Hives Verified 11/12/15 19:37 Penicillins AdvReac Hives Verified 11/12/15 19:37 sulfamethoxazole (From AdvReac Hives Verified 11/12/15 19:37 Bactrim) trimethoprim (From Bactrim) AdvReac Hives Verified 11/12/15 19:37 Social History household members: none housing: residential Smoking Status: Current every day smoker tobacco type: cigarettes alcohol intake: never substance use type: does not use ROS ROS ED Review of Systems ROS Unobtainable: due to mental status EXAM Physical Exam Const Vital Signs: 08/18/24 18:29 08/18/24 18:41 08/18/24 18:41 Temperature 97.9 F 97.9 F Temperature Source Temporal Temporal Pulse Rate 62 58 L 62 Respiratory Rate 14 16 14 Blood Pressure 84/41 L 109/57 L 84/41 L Blood Pressure Mean 55 74 55 Pulse Ox 92 99 92 Oxygen Delivery Method Room Air Room Air 08/18/24 19:11 08/18/24 19:35 08/18/24 19:46 Temperature Temperature Source Pulse Rate 66 65 Respiratory Rate 18 Blood Pressure 87/50 L 88/65 L 106/52 L Blood Pressure Mean 62 72 70 Pulse Ox 93 Oxygen Delivery Method 08/18/24 21:00 08/18/24 21:30 08/18/24 21:35 Temperature Temperature Source Pulse Rate 87 61 61 Respiratory Rate 18 20 H 16 Blood Pressure 110/65 105/89 H Blood Pressure Mean 80 94 Pulse Ox 98 98 Oxygen Delivery Method Room Air Room Air 08/18/24 21:44 08/18/24 21:45 08/18/24 21:59 Temperature 98.9 F 98.7 F Temperature Source Axillary Oral Pulse Rate 60 60 63 Respiratory Rate 20 H 16 12 Blood Pressure 94/46 L 94/46 L 90/65 Blood Pressure Mean 62 61 73 Pulse Ox 98 83 98 Oxygen Delivery Method Room Air Room Air 08/18/24 22:00 08/18/24 22:00 08/18/24 22:02 Temperature Temperature Source Pulse Rate 62 61 63 Respiratory Rate 14 14 15 Blood Pressure 90/65 83/39 L 90/65 Blood Pressure Mean 73 50 75 Pulse Ox 99 Oxygen Delivery Method Room Air 08/18/24 22:14 08/18/24 22:15 08/18/24 22:30 Temperature 98.9 F Temperature Source Axillary Pulse Rate 61 60 61 Respiratory Rate 18 20 H 14 Blood Pressure 91/47 L 91/47 L 68/44 L Blood Pressure Mean 61 61 49 Pulse Ox 98 Oxygen Delivery Method Room Air 08/18/24 22:34 08/18/24 22:36 08/18/24 22:45 Temperature Temperature Source Pulse Rate 61 61 63 Respiratory Rate 16 17 20 H Blood Pressure 99/72 99/72 115/77 Blood Pressure Mean 78 81 87 Pulse Ox 94 97 Oxygen Delivery Method Room Air Room Air 08/18/24 23:00 08/18/24 23:00 08/18/24 23:15 Temperature Temperature Source Pulse Rate 64 64 66 Respiratory Rate 21 H 21 H 23 H Blood Pressure Blood Pressure Mean Pulse Ox 100 100 98 Oxygen Delivery Method 08/18/24 23:27 08/18/24 23:30 Temperature 98.9 F Temperature Source Pulse Rate 64 65 Respiratory Rate 16 19 H Blood Pressure 115/77 114/62 Blood Pressure Mean 89 79 Pulse Ox 100 92 Oxygen Delivery Method Room Air Positive well nourished, well developed and unkempt Constitutional Narrative: Patient is hypotensive. Patient received total of 2 L of fluid which is approximately 30 cc/kg. He still remains hypotensive. General Appearance ED: unkempt and well developed; Negative for pallor HEENT normocephalic and atraumatic; Negative for cyanosis of lips/distal nose or tenderness Eyes PERRL and EOMs intact bilaterally General Eye ED: Negative for pale conjunctiva or scleral icterus Neck full ROM, no lymphadenopathy and no JVD Resp Resp Narrative: Respiratory effort is normal. Patient has bibasilar rales. There is no expiratory wheezing. Breath sounds are symmetric. Cardio regular rate, regular rhythm, S1 normal heart sound, S2 normal heart sound and no murmurs GI non-tender, non-distended and no masses Auscultation: hypoactive bowel sounds Palpation: soft Back/Spine no CVA tenderness Back/Spine Narrative: Patient does not grimace or withdrawal to palpation of the right or left CVA region. Extremity Extremity Narrative: There is no clubbing or cyanosis noted. Capillary refill is 2 to 3 seconds. Neuro No oriented x3 and CN's II-XII intact bilaterally Sensorium / Orientation: confused and stuporous; Negative for alert, oriented toperson, oriented to place or oriented to time Speech: Negative for speech normal Psych Appearance: unkempt Attitude: agitated Skin General Skin Exam: Negative for jaundice or pallor Lesions: no lesions Rashes: no rashes Sepsis Attestation Sepsis Alert: Yes Sepsis Attestation: Agree w/Sepsis Date exam was performed: 08/18/24 Time exam was performed: 19:15 Possible Source of Sepsis: Other (Suspect urine) Sepsis Organ Dysfunction Criteria Present: SBP < 90 mmHg or MAP < 65 mmHg and New/Unexplained change in mental status Fluid Resuscitation Fluid resuscitation indicated?: Yes Fluid Resuscitation ordered: 30 ml/kg fluid bolus ordered Amount of fluid ordered: 2,000 Sepsis Note Date exam was performed: 08/18/24 Time exam was performed: 22:12 Sepsis Attestation: Sepsis re-evaluation was performed Response to fluids: Non Fluid responsive hypotension and Vasopressors started MDM MDM MDM Narrative Medical decision making narrative: Patient unable to contribute to history and physical. Patient with altered mental status. He is hypotensive. History and physical is very limited. Will undertake metabolic sepsis workup. There is no history of trauma. Review of prior records indicates she has had lower lobe pneumonia in the past and influenza. Lab Data Lab results narrative: White count is normal. Patient is mildly anemic with normal indices. Comprehensive metabolic panel is marked for glucose of 137 with normal CO2 aniongap. BUN is slightly elevated 22. Urine reveals pyuria with no bacteria. Thiswas a cath specimen. Labs: Laboratory Results - last 24 hr 08/18/24 18:59 WBC 7.7 RBC 3.22 L Hgb 9.9 L Hct 29.7 L MCV 92.2 MCH 30.7 MCHC 33.3 RDW Std Deviation 41.1 RDW Coeff of Eyal 12.3 Plt Count 114 L MPV 10.8 Immature Gran % (Auto) 0.400 Neut % (Auto) 80.5 H Lymph % (Auto) 11.0 L [place] % (Auto) 6.7 Eos % (Auto) 1.3 Baso % (Auto) 0.1 Absolute Neuts (auto) 6.2 Absolute Lymphs (auto) 0.85 Nucleated RBC % 0 D-Dimer Quant (PE/DVT) 9.09 H* Sodium 139 Potassium 4.1 Chloride 107 Carbon Dioxide 25.1 Anion Gap 8 BUN 22 H Creatinine 1.19 Estim Creat Clear Calc 61.56 Est GFR (MDRD) Non-Af 69 BUN/Creatinine Ratio 18.2 Glucose 137 H Hemoglobin A1c 5.2 Lactic Acid 1.3 Calcium 9.6 Total Bilirubin 0.46 AST 15 ALT 10 Alkaline Phosphatase 117 Total Protein 6.0 Albumin 3.9 Globulin 2.2 Albumin/Globulin Ratio 1.8 TSH 1.040 Urine Color Yellow Urine Clarity Sl. Cloudy Urine pH 6.0 Ur Specific [place] 1.015 Urine Protein 30 H Urine Glucose (UA) Normal Urine Ketones 5 H Urine Occult Blood 25 H Urine Nitrite Negative Urine Bilirubin Negative Urine Urobilinogen 1 H Ur Leukocyte Esterase 500 H Urine RBC 0-5 SEEN Urine WBC 50-100 SEEN Ur Squamous Epith Cells 0 SEEN Urine Bacteria 0 SEEN Urine Mucus 0 SEEN Urine Opiates Screen Cancelled U Buprenorphine Qual Cancelled Ur Oxycodone Screen Cancelled Urine Methadone Screen Cancelled Urine Fentanyl Screen Cancelled Ur Barbiturates Screen Cancelled Valproic Acid 17 L Ur Phencyclidine Scrn Cancelled Ur Amphetamines Screen Cancelled U Benzodiazepines Scrn Cancelled [place] Cancelled Urine Cocaine Screen Cancelled U Cannabinoids Screen Cancelled Ethyl Alcohol < 10.1 ABG Data ABG results: ABG 08/18/24 19:29 Specimen Type ART Sample Site L Radial pH 7.42 Bicarbonate Actual 26.5 H Total CO2 28 Base Excess 2 O2 Saturation 94 L ABG pCO2 40.8 ABG pO2 68 L Shira Test Positive O2 Delivery Device Room Air Vent Mode Not entered Radiography Chest X-Ray - ED: 1 View and Read by ED Physician (Single view chest x-ray reveals suboptimal view. Cardiac silhouette size normal. No evidence of infiltrate. No evidence of effusion. [place] is unremarkable. Osseous structures are unremarkable.) Diagnostic Testing: Clinical Impression(s) from Imaging Studies Chest X-Ray 08/18/24 19:06 IMPRESSION: NEGATIVE SINGLE VIEW OF THE CHEST. Reading Location: [place] [address] EKG Initial EKG: Attestation: I personally reviewed and interpreted this EKG as follows: Interpretation: Sinus Rhythm (Rate is 60. There is no ossific ST-T wave changes which is artifact. TN interval is 138 ms. QRS duration 92 ms. QT duration 0.4 ms. [place] is normal.) Management Discussion w/another healthcare provider: Hospitalist (Case was discussed with Dr. Robert Gomes. He requested his CTA of the chest based on his ABG and CT of the abdomen and pelvis with IV contrast to assess for any intra-abdominal infection since there is no clear source at this point.) Treatment and Re-Evaluation Narrative: Since patient remained hypotensive additional fluids were ordered as well as peripheral Levophed. Reluctant to attempt central line because of patient's agitation. He would require sedation and concerned with potential risks. If hedoes not respond to peripheral Levophed will sedate with ketamine and placed central line. Since he has pyuria he was treated with meropenem. He has hives to penicillin as well as ciprofloxacin and Bactrim. Case was discussed with the hospitalist. Will inform the night physician to contact the hospitalist after CTA and CT of the abdomen pelvis have been interpreted by radiologist. Procedures Other Procedures Procedure(s): Straight catheter urine because of significant hydro status. Nurses were unable to Him. Critical Care Time Critical Care Time: Yes Critical care time (excluding procedures): 30-74 minutes (32), Including time spent: (History, physical, documentation, review of prior records, independent interpretation of laboratories alts, treatment for hypotensive unresponsive to fluid boluses.), Discussing w/Consultants and Arranging Admission or Transfer Discharge Plan Dx/Rx/DC Orders Clinical Impression: Acute hypotension, Pyuria, Acute alteration in mental status, Anemia, Thrombocytopenia, Prerenal azotemia, Ketosis, Closed intertrochanteric fracture of left femur Disposition Disposition: [facility] Discharge Date/Time: 08/19/24 01:23 What to do if you have Problems For any increased pain, shortness of breath, bleeding, nausea or vomiting, chestpain, or any unexpected problems, contact your Primary Care Provider. Call [facility] ([phone]) or report to the closest Emergency Room. Call 911 if necessary. 08/19/24 1026 <Electronically signed by Jose Olvera MD> Cosigner Signature (if applicable): CC: Dr. Ashley Dickey MD ~ Signed [facility] Work Phone: [phone]) 495-505706-19-2025 Progress note Author Marciano Guerin [facility] Note Date/Time August 19, 2024 9:02 am [facility] Medical Records Department [address] [place] [address] Progress Note - Hospitalist 08/19/24 0801 MR#: [id number] Acct: [id number] Name: NANDO OCHOA Rep #:[id number] : 1960 63 From: Marciano Saeed PCP: Dr. Ashley Dickey MD Status:ADM IN Location: ICU ICU02-1 Reason for Visit Reason for Visit: Diagnoses Sepsis, unspecified organism (08/19/24) Unspecified dementia, unspecified severity, with agitation (08/19/24) Schizoaffective disorder, unspecified (08/19/24) Depression, unspecified (08/19/24) Anxiety disorder, unspecified (08/19/24) Metabolic encephalopathy (08/19/24) Acute cystitis without hematuria (08/19/24) Other abnormalities of breathing (08/19/24) Severe sepsis with septic shock (08/19/24) Fracture of unspecified part of neck of left femur, initial encounter for closedfracture (08/19/24) Displaced intertrochanteric fracture of left femur, initial encounter for closedfracture (08/19/24) Personal history of other mental and behavioral disorders (08/19/24) Personal history of other diseases of the nervous system and sense organs (08/19/24) Objective Data Objective Data Vital Signs: Vital Signs Temp Pulse Resp BP Pulse Ox O2 Del Method 100.0 F H 66 16 104/71 95 Room Air 08/19/24 07:57 08/19/24 07:57 08/19/24 07:57 08/19/24 07:57 08/19/24 07:57 08/19/24 07:57 Oxygen Delivery Method Room Air Weight: 151 lb 7.321 oz Body Mass Index (BMI) 21.7 Intake & Output: Intake and Output for Last 24 Hours 08/17/24 08/18/24 08/19/24 23:59 23:59 23:59 Intake Total 3120 / 3120 567.91 / 567.91 Output Total 1300 / 1300 Balance 3120 / 3120 -732.09 / -732.09 Lab / Micro Data 08/18/24 18:59 08/18/24 18:59 Labs: Laboratory Results - last 24 hr 08/18/24 18:59: WBC 7.7, RBC 3.22 L, Hgb 9.9 L, Hct 29.7 L, MCV 92.2, MCH 30.7, MCHC 33.3, RDW Std Deviation 41.1, RDW Coeff of Eyal 12.3, Plt Count 114 L, MPV 10.8, Immature Gran % (Auto) 0.400, Neut % (Auto) 80.5 H, Lymph % (Auto) 11.0 L,[place] % (Auto) 6.7, Eos % (Auto) 1.3, Baso % (Auto) 0.1, Absolute Neuts (auto) 6.2, Absolute Lymphs (auto) 0.85, Nucleated RBC % 0, D-Dimer Quant (PE/DVT) 9.09H*, Sodium 139, Potassium 4.1, Chloride 107, Carbon Dioxide 25.1, Anion Gap 8, BUN 22 H, Creatinine 1.19, Estim Creat Clear Calc 61.56, Est GFR (MDRD) Non-Af 69, BUN/Creatinine Ratio 18.2, Glucose 137 H, Hemoglobin A1c 5.2, Lactic Acid 1.3, Calcium 9.6, Total Bilirubin 0.46, AST 15, ALT 10, Alkaline Phosphatase 117, Total Protein 6.0, Albumin 3.9, Globulin 2.2, Albumin/Globulin Ratio 1.8, TSH 1.040, Urine Color Yellow, Urine Clarity Sl. Cloudy, Urine pH 6.0, Ur Specific [place] 1.015, Urine Protein 30 H, Urine Glucose (UA) Normal, Urine Ketones 5 H, Urine Occult Blood 25 H, Urine Nitrite Negative, Urine Bilirubin Negative, Urine Urobilinogen 1 H, Ur Leukocyte Esterase 500 H, Urine RBC 0-5 SEEN, Urine WBC 50-100 SEEN, Ur Squamous Epith Cells 0 SEEN, Urine Bacteria 0 SEEN, Urine Mucus 0 SEEN, Urine Opiates Screen Cancelled, U Buprenorphine Qual Cancelled, Ur Oxycodone Screen Cancelled, Urine Methadone Screen Cancelled, Urine Fentanyl Screen Cancelled, Ur Barbiturates Screen Cancelled, Valproic Acid17 L, Ur Phencyclidine Scrn Cancelled, Ur Amphetamines Screen Cancelled, U Benzodiazepines Scrn Cancelled, [place] Cancelled, Urine Cocaine Screen Cancelled, U Cannabinoids Screen Cancelled, Ethyl Alcohol < 10.1 08/19/24 01:20: Vitamin B12 620, Cortisol AM Sample 16.10, [place] 0.82 08/19/24 03:00: Urine Opiates Screen NEGATIVE, U Buprenorphine Qual NEGATIVE, UrOxycodone Screen NEGATIVE, Urine Methadone Screen NEGATIVE, Urine Fentanyl Screen NEGATIVE, Ur Barbiturates Screen NEGATIVE, Ur Phencyclidine Scrn NEGATIVE, Ur Amphetamines Screen NEGATIVE, U Benzodiazepines Scrn PRESUMPTIVE POSITIVE, Urine Cocaine Screen NEGATIVE, U Cannabinoids Screen NEGATIVE Micro: Microbiology 08/19/24 01:35 Mucosa - Nasopharyngeal Respiratory Panel (PCR) - Final ABG Data ABG results: ABG 08/18/24 19:29 Specimen Type ART Sample Site L Radial pH 7.42 Bicarbonate Actual 26.5 H Total CO2 28 Base Excess 2 O2 Saturation 94 L ABG pCO2 40.8 ABG pO2 68 L Shira Test Positive O2 Delivery Device Room Air Vent Mode Not entered Radiography Diagnostic Testing: Radiology Impression Chest X-Ray 08/18/24 19:06 IMPRESSION: NEGATIVE SINGLE VIEW OF THE CHEST. Reading Location: [id number] Abdomen/Pelvis CT 08/19/24 00:30 IMPRESSION: Moderate osteopenia. Acute comminuted displaced left intertrochanteric fracture. Moderate gastroparesis. Moderate amount of fecal residue in the large bowel suggestive of constipation with associated mild stercoral colitis of the rectosigmoid colon. Mild chronic multifocal scarring of the kidneys. Distended, trabeculated bladder. Diffuse thickening of the bladder. Chronic bladder outlet obstruction versus cystitis. Mild prostatomegaly with midline defect of the prostate, probably from prior TURP. Mild bilateral fullness of the collecting systems, probably reflux from distended bladder. Bilateral scattered simple renal cysts are noted with the largest measuring 5 mm. Right renal nonobstructing stone measuring 5 mm. Reading Location: [facility] Brain CT 08/19/24 00:30 IMPRESSION: No CT evidence of an acute brain abnormality. Reading Location: [facility] Chest CTA 08/19/24 00:30 IMPRESSION: No demonstrated pulmonary embolism or arterial dissection. Minimal left pleural effusion/thickening. Minimal passive atelectatic airspace disease of the left lower lobe. Paraseptal emphysema. Moderate coronary artery calcifications. Multinodular thyroid goiter without tracheal narrowing or deviation. Minimal pericardial effusion. Reading Location: [facility] Physical Exam Narrative Seen and examined Patient has garbled speech, disoriented. History is unobtainable. Patient was admitted with hypotension generalized weakness and altered mental status. Unclear how he fractured his left hip but he complained of left hip and not ableto flex. Mild low-grade grade fever. Could not tell about dysuria or other symptoms. Physical exam General: Awake, orientation cannot be ascertained, HEENT: Atraumatic, PERRLA, EOMI, Normocephalic. Oral: No Gingival or Mucosal Lesions/ Ulcerations Neck: Supple, No JVD, Negative Carotid Bruits Chest wall/Lungs: Air entry diminished in bilateral lung bases. No crepitation/rhonchi Cardiovascular: Regular rate and rhythm, Normal S1,S2, systolic murmur Abdomen: Bowel Sounds sluggish, soft, Non Tender, Non-Distended : Mills catheter no renal angle tenderness. No suprapubic tenderness. Extremities: No edema, Capillary Refill Less than 3 Seconds Skin: No rashes, No breakdown Musculoskeletal: Tenderness over left hip, flexed deformity. No Tenderness to Palpation of other joints or Extremities Neurological: Does not follow command therefore complete neuroexam unobtainable. No obvious focal lateralizing sign Psych/Mental Status: Flat affect, schizophrenia Assessment & Plan Assessment/Plan (1) Sepsis: QUALIFIERS: Sepsis acute organ dysfunction status: with acute organ dysfunction Sepsis type: sepsis due to unspecified organism Severe sepsis acute organ dysfunction type: encephalopathy Severe sepsis shock status:with septic shock Qualified Code(s): A41.9 - Sepsis, unspecified organism; R65.21 - Severe sepsis with septic shock; G93.41 - Metabolic encephalopathy (2) Acute cystitis without hematuria: (3) Acute respiratory insufficiency: (4) Acute metabolic encephalopathy: (5) Hip fracture: QUALIFIERS: Encounter type: initial encounter Fracture type: closed Laterality: left Qualified Code(s): S72.002A - Fracture of unspecified part of neck of left femur, initial encounter for closed fracture (6) History of anoxic brain injury: (7) History of schizophrenia: (8) Schizoaffective disorder: QUALIFIERS: Schizoaffective disorder type: unspecified Qualified Code(s): F25.9 - Schizoaffective disorder, unspecified (9) Anxiety and depression: (10) Dementia: QUALIFIERS: Dementia behavioral or psychological symptom: with agitation Dementia severity: unspecified severity Dementia type: unspecified type Qualified Code(s): F03.911 - Unspecified dementia, unspecified severity, with agitation PLAN: Plan 63-year-old gentleman was admitted from [facility] for evaluation of altered mental status, low BP, generalized weak and found to be hypotensive. He was agitated as per ER physician but calm in the ICU 1. Hypotension, suspicion of sepsis, exact focus unclear but suspicion of acuteon chronic adrenal insufficiency: Patient fever, Tmax 100.5 Fahrenheit, low BP, 83/39, 68/47 and was on norepinephrine for short time. Currently on empiric meropenem. History unobtainable regarding clinical symptoms to rule out UTI or pneumonia. Prelim urine culture is negative. Respiratory panel negative. Blood culture negative. Chest CTA negative for PE but shows minimal left pleural effusion/thickening, minimal atelectatic airspace in the left lower lobewith paraseptal emphysema. Therefore unlikely major pneumonic consolidation andpatient also on room air with no hypoxia. Empirically on IV vancomycin and meropenem. ABG that revealed pH 7.42/pCO2 40.8 mmHg/PaO2 68 mmHg/HCO3 28 mmol/Stoney RA. ABG was essentially normal. CT abdomen pelvis shows diffuse thickening of bladder with suspicion of chronic bladder outlet obstruction versus cystitis with mild prostatomegaly. 2. Acute Metabolic Encephalopathy in the setting of previously known Anoxic Brain Injury, Schizophrenia, Schizoaffective disorder, Depression with Anxiety and Dementia; of unclear type. CT shows no evidence of acute intracranial abnormality Acute Comminuted Displaced Left Intertrochanteric Fracture incidentally noted on CT this admission and perioperative evaluation: Patient left hip is flexed, no movement. Incidentally CT abdomen shows acute commuted displaced left intertrochanteric fracture for which femur x-ray showed the same but reported nondisplaced. Orthopedic surgeon is consulted. Discussed with anesthesiologist. Twelve-lead EKG NSR at 60 bpm, QTc 400 ms. 2D echo ordered. I think patient is moderate perioperative risk for hip surgery. History of COPD, hypertension and dyslipidemia but no history of CAD. 5. Adrenal insufficiency; on fludrocortisone and hydrocortisone twice daily: Give hydrocortisone 50 mg IV TID and check cortisol level. 6. History of admission here from May 10, 2023 to May 14, 2023 for for acutehypoxic respiratory failure due to a combination of influenza A and aspiration pneumonia in setting of previously known schizophrenia complicated by toxic encephalopathy - Noted. 7. Essential hypertension; on propranolol twice daily - Hold scheduled antihypertensives because of hypotension 8. Hyperlipidemia; on atorvastatin - Resume statin as previous. 9. History of tobacco abuse with subsequent asthma/COPD; on as needed albuterolplus nicotine replacement - Noted with no evidence of acute flare at this time. Continue as needed albuterol and nicotine replacement as before. 10. Seizure disorder; on divalproex - Check valproic acid level and replace with IV levetiracetam as there is a significant potential adverse drug interaction with meropenem. 11. Chronic oral dysphagia - Noted with patient currently n.p.o. and with swallow study pending. 12. IBS; of constipation type on lactulose twice daily - Restart this agent when patient able to tolerate oral intake. 13. BPH; with history of obstructive uropathy on tamsulosin - Resume tamsulosinwhen patient is able to tolerate oral intake. 14. History of hydrocele - Noted. 15. CKD; stage II - Stable with serum creatinine of 1.19 mg/dL, BUN of 22 mg/dLand EGFR of 69 mL/min present on admission. 16. Chronic pancytopenia with superimposed iron deficiency anemia - WBC of 7.7K, hemoglobin of 9.9 g/dL and platelet count of 114K present on admission. 17. History of vitamin D deficiency - Maintain vitamin D supplement when patient can safely tolerate oral intake. 18. OA; with polyarthropathy - Stable. Give acetaminophen as outlined in #1. 19. DVT/GI prophylaxis - Enoxaparin 40 mg sq daily plus SCD's. Pantoprazole 40mg IV daily. Charges/Coding Visit Charges Inpatient E&M: 56248 Subs Hosp L3 08/19/24 0900 <Electronically signed by Marciano Guerin MD> Cosigner Signature (if applicable): CC: ~ Signed ADDENDUM by Dr. Marciano Guerin MD on 08/19/24 at 0902 Addendum I called the patient's legal guardian, phone #[phone], Praveean Corea and left a voicemail to call back. Could not get history, clinical update or address theCODE STATUS 08/19/24 09<Electronically signed by Marciano Guerin MD> Cosigner Signature (if applicable): cc: ~* Signed [facility] Work Phone: [phone] 730-466306-19-2025 Consult note Author Amauri Hermosillo [facility] Note Date/Time August 19, 2024 7:44 am [facility] Medical Records Department [address] [place] [address] Consultation 08/19/24 0741 MR#: [id number] Acct: [id number] Name: NANDO OCHOA Rep #:[id number] : 1960 63 From: Amauri Hermosillo DO PCP: Dr. Ashley Dickey MD Status:ADM IN Location: ICU ICU02-1 Assessment & Plan Assessment/Plan (1) Intertrochanteric fracture of left femur: QUALIFIERS: Encounter type: initial encounter Fracture type: closed Fracture alignment: displaced Qualified Code(s): S72.142A - Displaced intertrochanteric fracture of left femur, initial encounter for closed fracture PLAN: Plan Comminuted left intertrochanteric femur fracture was found incidentally on CT scan no reported injury patient unable to scoot comply with history or physical exam Obtained verbal consent from his guardian Praveena Ray to proceed with left femur cephalomedullary fixation tomorrow 08/20/2024 tentatively scheduled for 1230 He is reported to ambulate without any assistive device prior to this. Antibiotics and TXA ordered on-call to the OR SCDs ordered HPI Consult Data Date of Consult: 08/19/24 HPI Narrative HPI Narrative: NANDO OCHOA, is a 63 M who presents to the emergency room with altered mentalstatus and hypotension. And incidentally was found to have a left hip intertrochanteric femur fracture on CT scan of his abdomen pelvis. There is no reported injury or fall patient is unable to provide any history. I was able toreach his guardian Praveena Ray for decision making. [facility] Medical History (Updated 08/19/24 @ 07:[address] Amauri Hermosillo DO) History of schizophrenia Bradycardia Asthma GERD (gastroesophageal reflux disease) History of anoxic brain injury Adrenal insufficiency COPD (chronic obstructive pulmonary disease) Dysphagia BPH (benign prostatic hyperplasia) Polyarthropathy IBS (irritable bowel syndrome) Schizoaffective disorder Schizophrenia Mood disorder Anxiety and depression Chronic anemia HLD (hyperlipidemia) HTN (hypertension) Seizure disorder Dementia Hydrocele Home Medications ?Medication ?Instructions ?Recorded ?Last Taken ?Type acetaminophen 325 mg tablet 650 mg PO Q4H PRN Headache 05/26/17 Unknown History (Tylenol) albuterol sulfate 2.5 mg/3 mL 2.5 mg inhalation Q6H TN N PRN Sob 05/26/17 Unknown History (0.083 %) solution for nebulization &/Or Wheezing aluminum-mag hydroxide-simethicone 30 ml PO Q4H PRN TN N Indigestion 05/26/17 Unknown History 400 mg-400 mg-40 mg/5 mL oral susp (Mag-Al Plus Extra Strength) aripiprazole 5 mg tablet 5 mg PO QHS blood thinner 06/05/17 20:45 History 1 benzocaine 15 mg-menthol 3.6 mg 1 blaire buccal PRN PRN S ore Throat 05/26/17 Unknown History lozenges (Cepacol Sore Throat (benzocaine-menthol)) bisacodyl 10 mg rectal suppository 10 mg RECTAL DAILY PRN PRN 05/26/17 Unknown History Constipation divalproex 125 mg capsule,delayed 125 mg PO Q8H schizo phrednia 05/26/17 06/05/17 20:45 History release sprinkle (Depakote 1 Sprinkles) fludrocortisone 0.1 mg tablet 0.05 mg PO DAILY@0800 ab n labs 05/26/17 Unknown History guaifenesin 100 mg/5 mL oral liquid 10 ml PO Q4H PRN P RN Cough 05/26/17 Unknown History haloperidol 1 mg tablet 1 mg PO TID anxiety 05/26/17 06/05/17 20:45 History 1 lithium carbonate 300 mg 300 mg PO BID biopolar 05/2606/05/17 20:45 History tablet,extended release 1 magnesium hydroxide 400 mg/5 mL 30 ml PO DAILY PRN PRN Constipation 05/26/17 Unknown History oral suspension polyethylene glycol 3350 17 gram 17 g PO DAILY constip ation 05/26/17 Unknown History oral powder packet tamsulosin 0.4 mg capsule (Flomax) 0.4 mg PO DAILY uri nary retention 05/26/17 Unknown History atorvastatin 40 mg tablet 40 mg PO QHS hyperlipidemia 05/10/23 Unknown History diphenhydramine HCl 50 mg/mL 50 mg IM Q6H PRN agitatio n 05/10/23 Unknown History injection solution folic acid 400 mcg tablet 400 mcg PO DAILY deficiency 05/10/23 Unknown History haloperidol lactate 5 mg/mL 5 mg IM Q3H PRN agitation 05/10/23 Unknown History injection solution hydrocortisone 10 mg tablet 10 mg PO BID adrenal 05/09 Unknown History insuffienciency hydrocortisone 5 mg tablet 5 mg PO DAILY adrenal insuf fiencien 05/10/23 Unknown History lactulose 10 gram/15 mL oral 20 g PO BID abn labs 11/24 Unknown History solution (Enulose) lorazepam 0.5 mg tablet (Ativan) 0.5 mg PO Q6H PRN anx iety 05/10/23 Unknown History lorazepam 1 mg tablet 1 mg PO TID anxiety 05/10/23 Unknown History melatonin 3 mg capsule 6 mg PO QHS insom 05/10/23 U nknown History nicotine (polacrilex) 2 mg buccal 2 mg mucous membrane Q2H PRN 05/10/23 Unknown History lozenge nicotine cravings nicotine 10 mg inhalation 1 inh inhalation Q2H PRN trixie otine 05/10/23 Unknown History cartridge (Nicotrol) cravings paroxetine HCl 20 mg tablet 20 mg PO DAILY depression 05/10/23 Unknown History aripiprazole 10 mg tablet 10 mg PO DAILY 08/18/24 Unkn own History benztropine 1 mg tablet 1 mg PO BID 08/18/24 Unknown History calcium carbonate (Calcium 500) 500 mg PO BID 08/18/24 Unknown History cholecalciferol (vitamin D3) 50 4,000 unit PO DAILY Unknown History mcg (2,000 unit) tablet (Vitamin D3) docusate sodium 100 mg capsule 100 mg PO DAILY 5 Unknown History (Col-Rite) loperamide 2 mg tablet 4 mg PO .COMPLEX PRN loose s tool 08/18/24 Unknown History paroxetine HCl 20 mg tablet (Paxil) 20 mg PO DAILY Unknown History propranolol 80 mg tablet 80 mg PO BID 08/18/24 Unknow n History Allergy/AdvReac Type Severity Reaction Status Date / Time ciprofloxacin (From Cipro) AdvReac Hives Verified 11/12/15 19:37 codeine AdvReac Hives Verified 11/12/15 19:37 Penicillins AdvReac Hives Verified 11/12/15 19:37 sulfamethoxazole (From AdvReac Hives Verified 11/12/15 19:37 Bactrim) trimethoprim (From Bactrim) AdvReac Hives Verified 11/12/15 19:37 Social History household members: none housing: residential Smoking Status: Current every day smoker tobacco type: cigarettes alcohol intake: never substance use type: does not use Physical Exam Const Negative for alert or oriented x3 General Appearance: Negative for cooperative, well kempt or well developed Extremity Extremity Narrative: His left hip is externally rotated he does have a positive logroll. He is unable to comply with neurological testing he does have palpable pedal pulses and his compartments are soft Lab / Micro Data 08/18/24 18:59 08/18/24 18:59 Labs: Laboratory Results - last 24 hr 08/18/24 18:59: WBC 7.7, RBC 3.22 L, Hgb 9.9 L, Hct 29.7 L, MCV 92.2, MCH 30.7, MCHC 33.3, RDW Std Deviation 41.1, RDW Coeff of Eyal 12.3, Plt Count 114 L, MPV 10.8, Immature Gran % (Auto) 0.400, Neut % (Auto) 80.5 H, Lymph % (Auto) 11.0 L,[place] % (Auto) 6.7, Eos % (Auto) 1.3, Baso % (Auto) 0.1, Absolute Neuts (auto) 6.2, Absolute Lymphs (auto) 0.85, Nucleated RBC % 0, D-Dimer Quant (PE/DVT) 9.09H*, Sodium 139, Potassium 4.1, Chloride 107, Carbon Dioxide 25.1, Anion Gap 8, BUN 22 H, Creatinine 1.19, Estim Creat Clear Calc 61.56, Est GFR (MDRD) Non-Af 69, BUN/Creatinine Ratio 18.2, Glucose 137 H, Hemoglobin A1c 5.2, Lactic Acid 1.3, Calcium 9.6, Total Bilirubin 0.46, AST 15, ALT 10, Alkaline Phosphatase 117, Total Protein 6.0, Albumin 3.9, Globulin 2.2, Albumin/Globulin Ratio 1.8, TSH 1.040, Urine Color Yellow, Urine Clarity Sl. Cloudy, Urine pH 6.0, Ur Specific [place] 1.015, Urine Protein 30 H, Urine Glucose (UA) Normal, Urine Ketones 5 H, Urine Occult Blood 25 H, Urine Nitrite Negative, Urine Bilirubin Negative, Urine Urobilinogen 1 H, Ur Leukocyte Esterase 500 H, Urine RBC 0-5 SEEN, Urine WBC 50-100 SEEN, Ur Squamous Epith Cells 0 SEEN, Urine Bacteria 0 SEEN, Urine Mucus 0 SEEN, Urine Opiates Screen Cancelled, U Buprenorphine Qual Cancelled, Ur Oxycodone Screen Cancelled, Urine Methadone Screen Cancelled, Urine Fentanyl Screen Cancelled, Ur Barbiturates Screen Cancelled, Valproic Acid17 L, Ur Phencyclidine Scrn Cancelled, Ur Amphetamines Screen Cancelled, U Benzodiazepines Scrn Cancelled, [place] Cancelled, Urine Cocaine Screen Cancelled, U Cannabinoids Screen Cancelled, Ethyl Alcohol < 10.1 08/19/24 01:20: Vitamin B12 620, Cortisol AM Sample 16.10, [place] 0.82 08/19/24 03:00: Urine Opiates Screen NEGATIVE, U Buprenorphine Qual NEGATIVE, UrOxycodone Screen NEGATIVE, Urine Methadone Screen NEGATIVE, Urine Fentanyl Screen NEGATIVE, Ur Barbiturates Screen NEGATIVE, Ur Phencyclidine Scrn NEGATIVE, Ur Amphetamines Screen NEGATIVE, U Benzodiazepines Scrn PRESUMPTIVE POSITIVE, Urine Cocaine Screen NEGATIVE, U Cannabinoids Screen NEGATIVE Micro: Microbiology 08/19/24 01:35 Mucosa - Nasopharyngeal Respiratory Panel (PCR) - Final ABG Data ABG results: ABG 08/18/24 19:29 Specimen Type ART Sample Site L Radial pH 7.42 Bicarbonate Actual 26.5 H Total CO2 28 Base Excess 2 O2 Saturation 94 L ABG pCO2 40.8 ABG pO2 68 L Shira Test Positive O2 Delivery Device Room Air Vent Mode Not entered Imaging Radiology Impression Chest X-Ray 08/18/24 19:06 IMPRESSION: NEGATIVE SINGLE VIEW OF THE CHEST. Reading Location: [place] [address] Abdomen/Pelvis CT 08/19/24 00:30 IMPRESSION: Moderate osteopenia. Acute comminuted displaced left intertrochanteric fracture. Moderate gastroparesis. Moderate amount of fecal residue in the large bowel suggestive of constipation with associated mild stercoral colitis of the rectosigmoid colon. Mild chronic multifocal scarring of the kidneys. Distended, trabeculated bladder. Diffuse thickening of the bladder. Chronic bladder outlet obstruction versus cystitis. Mild prostatomegaly with midline defect of the prostate, probably from prior TURP. Mild bilateral fullness of the collecting systems, probably reflux from distended bladder. Bilateral scattered simple renal cysts are noted with the largest measuring 5 mm. Right renal nonobstructing stone measuring 5 mm. [facility] 08/19/24 00:30 IMPRESSION: No CT evidence of an acute brain abnormality. Reading Location: [facility] Chest CTA 08/19/24 00:30 IMPRESSION: No demonstrated pulmonary embolism or arterial dissection. Minimal left pleural effusion/thickening. Minimal passive atelectatic airspace disease of the left lower lobe. Paraseptal emphysema. Moderate coronary artery calcifications. Multinodular thyroid goiter without tracheal narrowing or deviation. Minimal pericardial effusion. Reading Location: [place] [address] 08/19/24 0744 <Electronically signed by Amauri Hermosillo DO> Cosigner Signature (if applicable): CC: Dr. Ashley Dickey MD~ Signed [facility] Work Phone: [phone] 514-831406-19-2025 History and physical note Author Robert Andrea [facility] Note Date/Time August 19, 2024 6:55 am [facility] Medical Records Department [address] [place] [id number] H&P Exam - Hospitalist 08/18/24 2322 MR#: [id number] Acct: [id number] Name: NANDO OCHOA Rep #:[id number] : 1960 63 From: Robert Gilliland DO PCP: Dr. Ashley Dickey MD Status:ADM IN Location: ICU ICU02-1 HPI - General General Date of Admission: 08/19/24 Date of Service: 08/18/24 Chief Complaint: Altered Mental Status and Hypotension. HPI Narrative NANDO OCHOA, is a 63 M with a past medical history of essential hypertension;on propranolol twice daily, hyperlipidemia; on atorvastatin, history of tobacco abuse with subsequent asthma/COPD; on as needed albuterol plus nicotine replacement, anoxic brain injury, seizure disorder; on divalproex, brain injury dementia of unclear type; with chronic schizophrenia with schizoaffective disorder on aripiprazole haloperidol and lithium carbonate twice daily, generalized anxiety; on lorazepam every 6 hours as needed plus diphenhydramine IM every 6 hours as needed agitation, chronic depression; on paroxetine, chronicoral dysphagia, adrenal insufficiency; on fludrocortisone and hydrocortisone twice daily, IBS; of constipation type on lactulose twice daily, BPH; with history of obstructive uropathy on tamsulosin, history of hydrocele, CKD; stage II, chronic pancytopenia with superimposed iron deficiency anemia, history of vitamin D deficiency, OA; with polyarthropathy and history of admission here from May 10, 2023 to May 14, 2019 for for acute hypoxic respiratory failure due to a combination of influenza A and aspiration pneumonia in setting of previously known schizophrenia complicated by toxic encephalopathy who presents to [facility] ER with staff at his facility noting altered mental status and hypotension. Mr. Ochoa is not a fully reliable historian at this time so information was gathered from chart, medical staff and computer. According to the records patient is normally awake and alert but earlier today he was noted to have a sudden onset of confusion and agitation prompting him to be sent in for further evaluation and treatment. In the ER he was noted to have a UA positive for evidence of Acute Cystitis; without hematuria complicated by clinical evidence of Hypotension of 84/41 mmHg present on admission indicative of possible Sepsis complicated by ABG that revealed pH 7.42/pCO2 40.8 mmHg/PaO2 68 mmHg/HCO3 28 mmol/L on RA indicative of Acute Respiratory Insufficiency with a corresponding CXR that revealed cardiac and mediastinal contours are normal with clear lungs and a critically elevated D-dimer of 9.09 present on admission with CTA of chest pending at this time. He was then admitted to the ICU for treatment under the Sepsis protocol for ongoing care for status is expected to extend beyond 2 midnights. [facility] Medical History (Updated 08/19/24 @ 04:[address] Robert Huizar, ) History of schizophrenia Bradycardia Asthma GERD (gastroesophageal reflux disease) History of anoxic brain injury Adrenal insufficiency COPD (chronic obstructive pulmonary disease) Dysphagia BPH (benign prostatic hyperplasia) Polyarthropathy IBS (irritable bowel syndrome) Schizoaffective disorder Schizophrenia Mood disorder Anxiety and depression Chronic anemia HLD (hyperlipidemia) HTN (hypertension) Seizure disorder Dementia Hydrocele Home Medications ?Medication ?Instructions ?Recorded ?Last Taken ?Type acetaminophen 325 mg tablet 650 mg PO Q4H PRN Headache 05/26/17 Unknown History (Tylenol) albuterol sulfate 2.5 mg/3 mL 2.5 mg inhalation Q6H TN N PRN Sob 05/26/17 Unknown History (0.083 %) solution for nebulization &/Or Wheezing aluminum-mag hydroxide-simethicone 30 ml PO Q4H PRN TN N Indigestion 05/26/17 Unknown History 400 mg-400 mg-40 mg/5 mL oral susp (Mag-Al Plus Extra Strength) aripiprazole 5 mg tablet 5 mg PO QHS blood thinner 06/05/17 20:45 History 1 benzocaine 15 mg-menthol 3.6 mg 1 blaire buccal PRN PRN S ore Throat 05/26/17 Unknown History lozenges (Cepacol Sore Throat (benzocaine-menthol)) bisacodyl 10 mg rectal suppository 10 mg RECTAL DAILY PRN PRN 05/26/17 Unknown History Constipation divalproex 125 mg capsule,delayed 125 mg PO Q8H schizo phrednia 05/26/17 06/05/17 20:45 History release sprinkle (Depakote 1 Sprinkles) fludrocortisone 0.1 mg tablet 0.05 mg PO DAILY@0800 ab n labs 05/26/17 Unknown History guaifenesin 100 mg/5 mL oral liquid 10 ml PO Q4H PRN P RN Cough 05/26/17 Unknown History haloperidol 1 mg tablet 1 mg PO TID anxiety 05/26/17 06/05/17 20:45 History 1 lithium carbonate 300 mg 300 mg PO BID biopolar 05/2606/05/17 20:45 History tablet,extended release 1 magnesium hydroxide 400 mg/5 mL 30 ml PO DAILY PRN PRN Constipation 05/26/17 Unknown History oral suspension polyethylene glycol 3350 17 gram 17 g PO DAILY constip ation 05/26/17 Unknown History oral powder packet tamsulosin 0.4 mg capsule (Flomax) 0.4 mg PO DAILY uri nary retention 05/26/17 Unknown History atorvastatin 40 mg tablet 40 mg PO QHS hyperlipidemia 05/10/23 Unknown History diphenhydramine HCl 50 mg/mL 50 mg IM Q6H PRN agitatio n 05/10/23 Unknown History injection solution folic acid 400 mcg tablet 400 mcg PO DAILY deficiency 05/10/23 Unknown History haloperidol lactate 5 mg/mL 5 mg IM Q3H PRN agitation 05/10/23 Unknown History injection solution hydrocortisone 10 mg tablet 10 mg PO BID adrenal 05/09 Unknown History insuffienciency hydrocortisone 5 mg tablet 5 mg PO DAILY adrenal insuf fiencien 05/10/23 Unknown History lactulose 10 gram/15 mL oral 20 g PO BID abn labs 11/24 Unknown History solution (Enulose) lorazepam 0.5 mg tablet (Ativan) 0.5 mg PO Q6H PRN anx iety 05/10/23 Unknown History lorazepam 1 mg tablet 1 mg PO TID anxiety 05/10/23 Unknown History melatonin 3 mg capsule 6 mg PO QHS insom 05/10/23 U nknown History nicotine (polacrilex) 2 mg buccal 2 mg mucous membrane Q2H PRN 05/10/23 Unknown History lozenge nicotine cravings nicotine 10 mg inhalation 1 inh inhalation Q2H PRN trixie otine 05/10/23 Unknown History cartridge (Nicotrol) cravings paroxetine HCl 20 mg tablet 20 mg PO DAILY depression 05/10/23 Unknown History aripiprazole 10 mg tablet 10 mg PO DAILY 08/18/24 Unkn own History benztropine 1 mg tablet 1 mg PO BID 08/18/24 Unknown History calcium carbonate (Calcium 500) 500 mg PO BID 08/18/24 Unknown History cholecalciferol (vitamin D3) 50 4,000 unit PO DAILY Unknown History mcg (2,000 unit) tablet (Vitamin D3) docusate sodium 100 mg capsule 100 mg PO DAILY 5 Unknown History (Col-Rite) loperamide 2 mg tablet 4 mg PO .COMPLEX PRN loose s tool 08/18/24 Unknown History paroxetine HCl 20 mg tablet (Paxil) 20 mg PO DAILY Unknown History propranolol 80 mg tablet 80 mg PO BID 08/18/24 Unknow n History Allergy/AdvReac Type Severity Reaction Status Date / Time ciprofloxacin (From Cipro) AdvReac Hives Verified 11/12/15 19:37 codeine AdvReac Hives Verified 11/12/15 19:37 Penicillins AdvReac Hives Verified 11/12/15 19:37 sulfamethoxazole (From AdvReac Hives Verified 11/12/15 19:37 Bactrim) trimethoprim (From Bactrim) AdvReac Hives Verified 11/12/15 19:37 Social History household members: none housing: residential Smoking Status: Current every day smoker tobacco type: cigarettes alcohol intake: never substance use type: does not use ROS ROS Narrative Full review of systems was not possible due to patient's acute metabolic encephalopathy in the setting of chronic dementia, schizophrenia and agitation. Vital Signs Vital Signs Vital Signs: 08/18/24 18:29 08/18/24 18:41 08/18/24 18:41 Temperature 97.9 F 97.9 F Temperature Source Temporal Temporal Pulse Rate 62 58 L 62 Respiratory Rate 14 16 14 Blood Pressure 84/41 L 109/57 L 84/41 L Blood Pressure Mean 55 74 55 Pulse Ox 92 99 92 Oxygen Delivery Method Room Air Room Air 08/18/24 19:11 08/18/24 19:35 08/18/24 19:46 Temperature Temperature Source Pulse Rate 66 65 Respiratory Rate 18 Blood Pressure 87/50 L 88/65 L 106/52 L Blood Pressure Mean 62 72 70 Pulse Ox 93 Oxygen Delivery Method 08/18/24 21:00 08/18/24 21:30 08/18/24 21:35 Temperature Temperature Source Pulse Rate 87 61 61 Respiratory Rate 18 20 H 16 Blood Pressure 110/65 105/89 H Blood Pressure Mean 80 94 Pulse Ox 98 98 Oxygen Delivery Method Room Air Room Air 08/18/24 21:44 08/18/24 21:45 08/18/24 21:59 Temperature 98.9 F 98.7 F Temperature Source Axillary Oral Pulse Rate 60 60 63 Respiratory Rate 20 H 16 12 Blood Pressure 94/46 L 94/46 L 90/65 Blood Pressure Mean 62 61 73 Pulse Ox 98 83 98 Oxygen Delivery Method Room Air Room Air 08/18/24 22:00 08/18/24 22:00 08/18/24 22:02 Temperature Temperature Source Pulse Rate 62 61 63 Respiratory Rate 14 14 15 Blood Pressure 90/65 83/39 L 90/65 Blood Pressure Mean 73 50 75 Pulse Ox 99 Oxygen Delivery Method Room Air 08/18/24 22:14 08/18/24 22:15 08/18/24 22:30 Temperature 98.9 F Temperature Source Axillary Pulse Rate 61 60 61 Respiratory Rate 18 20 H 14 Blood Pressure 91/47 L 91/47 L 68/44 L Blood Pressure Mean 61 61 49 Pulse Ox 98 Oxygen Delivery Method Room Air 08/18/24 22:34 08/18/24 22:36 08/18/24 22:45 Temperature Temperature Source Pulse Rate 61 61 63 Respiratory Rate 16 17 20 H Blood Pressure 99/72 99/72 115/77 Blood Pressure Mean 78 81 87 Pulse Ox 94 97 Oxygen Delivery Method Room Air Room Air 08/18/24 23:00 Temperature Temperature Source Pulse Rate 64 Respiratory Rate 21 H Blood Pressure Blood Pressure Mean Pulse Ox 100 Oxygen Delivery Method Weight Weight: 151 lb 0.266 oz Body Mass Index (BMI) 22.3 Physical Exam Const Constitutional Narrative: Patient appears unkempt and is confused, lethargic and agitated. Orientation / Consciousness: confused and lethargic HEENT normocephalic, head/scalp atraumatic and hearing grossly normal bilaterally HEENT Narrative: Mucous membranes dry. Eyes PERRL, EOMs intact bilaterally and conjunctivae normal Neck no lymphadenopathy, supple and no JVD Resp normal respiratory effort, no retractions, no use of accessory muscles and clearto auscultation bilaterally Cardio regular rate and regular rhythm GI soft to palpation, non-tender and non-distended Auscultation: hypoactive bowel sounds Extremity normal to inspection, full ROM and no clubbing, cyanosis or edema Skin Skin Narrative: Patient is evidence of rash, abscess, wounds or jaundice. Neuro Neuro Narrative: Patient is confused, lethargic and agitated. Psych Psych Narrative: Patient is confused, lethargic and agitated. Results Medical Records Data Attestation: I reviewed the patient's medical records Lab / Micro Data Attestation: I reviewed the patient's lab results. 08/18/24 18:59 08/18/24 18:59 Labs: Laboratory Results - last 24 hr 08/18/24 18:59: WBC 7.7, RBC 3.22 L, Hgb 9.9 L, Hct 29.7 L, MCV 92.2, MCH 30.7, MCHC 33.3, RDW Std Deviation 41.1, RDW Coeff of Eyal 12.3, Plt Count 114 L, MPV 10.8, Immature Gran % (Auto) 0.400, Neut % (Auto) 80.5 H, Lymph % (Auto) 11.0 L,[place] % (Auto) 6.7, Eos % (Auto) 1.3, Baso % (Auto) 0.1, Absolute Neuts (auto) 6.2, Absolute Lymphs (auto) 0.85, Nucleated RBC % 0, Sodium 139, Potassium 4.1, Chloride 107, Carbon Dioxide 25.1, Anion Gap 8, BUN 22 H, Creatinine 1.19, EstimCreat Clear Calc 61.56, Est GFR (MDRD) Non-Af 69, BUN/Creatinine Ratio 18.2, Glucose 137 H, Lactic Acid 1.3, Calcium 9.6, Total Bilirubin 0.46, AST 15, ALT 10, Alkaline Phosphatase 117, Total Protein 6.0, Albumin 3.9, Globulin 2.2, Albumin/Globulin Ratio 1.8, Urine Color Yellow, Urine Clarity Sl. Cloudy, Urine pH 6.0, Ur Specific [place] 1.015, Urine Protein 30 H, Urine Glucose (UA) Normal, Urine Ketones 5 H, Urine Occult Blood 25 H, Urine Nitrite Negative, Urine Bilirubin Negative, Urine Urobilinogen 1 H, Ur Leukocyte Esterase 500 H, Urine RBC 0-5 SEEN, Urine WBC 50-100 SEEN, Ur Squamous Epith Cells 0 SEEN, UrineBacteria 0 SEEN, Urine Mucus 0 SEEN ABG Data ABG results: ABG 08/18/24 19:29 Specimen Type ART Sample Site L Radial pH 7.42 Bicarbonate Actual 26.5 H Total CO2 28 Base Excess 2 O2 Saturation 94 L ABG pCO2 40.8 ABG pO2 68 L Shira Test Positive O2 Delivery Device Room Air Vent Mode Not entered Imaging Radiology Impression Chest X-Ray 08/18/24 19:06 IMPRESSION: NEGATIVE SINGLE VIEW OF THE CHEST. Reading Location: [id number] [facility] Imaging Services [address] [place], [place] [id number] CTA Chest W/WO Contrast MR#: [id number] Acct: [id number] Name: NANDO OCHOA Rep #: [id number] : 1960 M 63 From: Luis Enrique Coleman MD PCP: Dr. Ashley Dickey MD Status: ADM IN Study: CTA Chest W/WO Contrast Date of Exam: 08/19/24 Exam# [id number] Ordering Dr: Jose Olvera MD PROCEDURE: CTA CHEST W/WO CONTRAST 08/19/2024 REASON FOR EXAM: HYPOXIA TECHNIQUE: CTA CHEST W/WO CONTRAST Multiplanar Sagittal and Coronal images were obtained. CONTRAST: Isovue 370 VOLUME: 100 mL One or more dose reduction techniques were used (e.g., Automated exposure control, adjustment of the mA and/or kV according to patient size, use of iterative reconstruction technique). RADIATION DOSE SUMMARY: CTDlvol: 23.4 mGy DLP: 630 mGycm COMPARISON: Radiograph on 08/18/2024. FINDINGS: Minimal left pleural effusion/thickening. Minimal passive atelectatic airspace disease of the left lower lobe. Paraseptal emphysema. Moderate coronary artery calcifications. Multinodular thyroid goiter without tracheal narrowing or deviation. Minimal pericardial effusion. Normal enhancement of the main pulmonary artery and right and left pulmonary arteries. Normal enhancement of the bilateral peripheral pulmonary arteries. There is no demonstrated pulmonary embolism. Normal thoracic aorta and visualized great vessels. There is no demonstrated aortic dissection. Normal heart . Normal mediastinum. Normal hilar regions. Normal visualized trachea and bronchi. Normal chest wall structures. Normal osseous structures. Normal visualized upper abdomen. No demonstrated pulmonary embolism or arterial dissection. CT/CTA Chest W/WO Contrast IMPRESSION: No demonstrated pulmonary embolism or arterial dissection. Minimal left pleural effusion/thickening. Minimal passive atelectatic airspace disease of the left lower lobe. Paraseptal emphysema. Moderate coronary artery calcifications. Multinodular thyroid goiter without tracheal narrowing or deviation. Minimal pericardial effusion. Reading [facility] CC: Dr. Ashley Dickey MD; Dr. Jose Olvera MD ~ Swine Genetics Researcher: Signed ----- [facility] Imaging Services [address] [place] [id number] Brain/Head without Contrast MR#: [id number] Acct: [id number] Name: NANDO OCHOA Rep #: [id number] : 1960 M 63 From: Luis Enrique Coleman MD PCP: Dr. Ashley Dickey MD Status: ADM IN Study: Brain/Head without Contrast Date of Exam: 08/19/24 Exam# [id number] Ordering Dr: Robert Huizar DO PROCEDURE: BRAIN/HEAD WITHOUT CONTRAST 08/19/2024 REASON FOR EXAM: AMS AND AGITATION. TECHNIQUE: BRAIN/HEAD WITHOUT CONTRAST Coronal and Sagittal reconstruction series were provided. One or more dose reduction techniques were used (e.g., Automated exposure control, adjustment of the mA and/or kV according to patient size, use of iterative reconstruction technique. RADIATION DOSE SUMMARY: CTDlvol: 44.99 mGy DLP: 862 mGycm COMPARISON: None. FINDINGS: Normal size of the ventricles and extra-axial spaces for the patient's age. Normal white matter tracts of the supratentorial brain. Normal basal ganglia and thalami. Normal brainstem. Normal cerebellum. There is no demonstrated extra-axial, intraparenchymal, or intraventricular hemorrhage. There are no findings of an acute ischemic infarction. Normal calvarium. There is no demonstrated fracture. Normal soft tissue structures. Mild chronic mucosal inflammatory changes of the visualized paranasal sinuses. CT/Brain/Head without Contrast IMPRESSION: No CT evidence of an acute brain abnormality. Reading [facility] CC: Dr. Robert Huizar DO; Dr. Ashley Dickey MD ~ Swine Genetics Researcher: Signed ----- ---- [facility] Imaging Services [address] [place] [address] [id number] Abdomen/Pelvis W IV Cont ONLY MR#: [id number] Acct: [id number] Name: NANDO OCHOA Rep #: [id number] : 1960 M 63 From: Luis Enrique Coleman MD PCP: Dr. Ashley Dickey MD Status: ADM IN Study: Abdomen/Pelvis W IV Cont ONLY Date of Exam: 08/19/24 Exam# [id number] Ordering Dr: Jose Olvera MD PROCEDURE: ABDOMEN/PELVIS W IV CONT ONLY 08/19/2024 REASON FOR EXAM: HYPOTENSION, ABDOMINAL TENDERNESS TECHNIQUE: ABDOMEN/PELVIS W IV CONT ONLY. Coronal and Sagittal reconstruction series were provided. ORAL CONTRAST TYPE: None. AMOUNT: mL CONTRAST: Isovue-350 VOLUME: 100 mL One or more dose reduction techniques were used (e.g., Automated exposure control, adjustment of the mA and/or kV according to patient size, use of iterative reconstruction technique. RADIATION DOSE SUMMARY: CTDlvol: 17.54 mGy DLP: 890 mGycm COMPARISON: None. FINDINGS: Moderate osteopenia. Acute comminuted displaced left intertrochanteric fracture. Moderate gastroparesis. Moderate amount of fecal residue in the large bowel suggestive of constipation with associated mild stercoral colitis of the rectosigmoid colon. Mild chronic multifocal scarring of the kidneys. Distended, trabeculated bladder. Diffuse thickening of the bladder. Chronic bladder outlet obstruction versus cystitis. Mild prostatomegaly with midline defect of the prostate, probably from prior TURP. Mild bilateral fullness of the collecting systems, probably reflux from distended bladder. Bilateral scattered simple renal cysts are noted with the largest measuring 5 mm. Right renal nonobstructing stone measuring 5 mm. The visualized lung bases are unremarkable. Normal liver. Normal gallbladder and extrahepatic biliary system. Normal spleen. Normal pancreas. Normal bilateral adrenal glands. Normal size of the right kidney. There is no right renal mass. Normal size of the left kidney. There is no left renal mass. There are no leftrenal calculi. Normal small intestine. The appendix is visualized and appears normal. There is no demonstrated peritoneal fluid. Normal abdominal aorta. Normal inferior vena cava. Normal retroperitoneum. There is no pelvic mass lesion or lymphadenopathy. There is no pelvic fluid. CT/Abdomen/Pelvis W IV Cont ONLY IMPRESSION: Moderate osteopenia. Acute comminuted displaced left intertrochanteric fracture. Moderate gastroparesis. Moderate amount of fecal residue in the large bowel suggestive of constipation with associated mild stercoral colitis of the rectosigmoid colon. Mild chronic multifocal scarring of the kidneys. Distended, trabeculated bladder. Diffuse thickening of the bladder. Chronic bladder outlet obstruction versus cystitis. Mild prostatomegaly with midline defect of the prostate, probably from prior TURP. Mild bilateral fullness of the collecting systems, probably reflux from distended bladder. Bilateral scattered simple renal cysts are noted with the largest measuring 5 mm. Right renal nonobstructing stone measuring 5 mm. Reading Location: [place] [address] CC: Dr. Ashley Dickey MD; Dr. Jose Olvera MD ~ Swine Genetics Researcher: Signed Assessment & Plan Assessment/Plan (1) Sepsis: QUALIFIERS: Sepsis acute organ dysfunction status: with acute organ dysfunction Sepsis type: sepsis due to unspecified organism Severe sepsis acute organ dysfunction type: encephalopathy Severe sepsis shock status:with septic shock Qualified Code(s): A41.9 - Sepsis, unspecified organism; R65.21 - Severe sepsis with septic shock; G93.41 - Metabolic encephalopathy (2) Acute cystitis without hematuria: (3) Acute respiratory insufficiency: (4) Acute metabolic encephalopathy: (5) Hip fracture: QUALIFIERS: Encounter type: initial encounter Fracture type: closed Laterality: left Qualified Code(s): S72.002A - Fracture of unspecified part of neck of left femur, initial encounter for closed fracture (6) History of anoxic brain injury: (7) History of schizophrenia: (8) Schizoaffective disorder: QUALIFIERS: Schizoaffective disorder type: unspecified Qualified Code(s): F25.9 - Schizoaffective disorder, unspecified (9) Anxiety and depression: (10) Dementia: QUALIFIERS: Dementia behavioral or psychological symptom: with agitation Dementia severity: unspecified severity Dementia type: unspecified type Qualified Code(s): F03.911 - Unspecified dementia, unspecified severity, with agitation PLAN: Plan 1. Acute Cystitis; without hematuria complicated by clinical evidence of Hypotension of 84/41 mmHg present on admission indicative of possible Sepsis - Admit to ICU for treatment under the Sepsis protocol. Continue empiric meropenem IV began in the ER plus add IV vancomycin and await culture sensitivity data. Continue norepinephrine bitartrate drip to keep MAP greater than 65 mmHg. Give acetaminophen TN prn for pain or fever. Give ondansetron IV prn for nausea and vomiting. 2. ABG that revealed pH 7.42/pCO2 40.8 mmHg/PaO2 68 mmHg/HCO3 28 mmol/L on RA indicative of Acute Respiratory Insufficiency with unremarkable CXR and critically elevated d-dimer of 9.09 present on admission complicating #1 - CTA of chest with IV contrast pending at this time. 3. Acute Metabolic Encephalopathy in the setting of previously known Anoxic Brain Injury, Schizophrenia, Schizoaffective disorder, Depression with Anxiety and Dementia; of unclear type compounding #1 & #2 - Check UDS, lithium level andminimize [employer]-active medications in an effort to allow sensorium to clear. [place] CT. 4. Acute Comminuted Displaced Left Intertrochanteric Fracture incidentally noted on CT this admission adding to the medical complexity of #1 - #3 - We willconsult orthopedic surgery to see this patient on rounds in the AM for further recommendations with help appreciated in advance. 5. Adrenal insufficiency; on fludrocortisone and hydrocortisone twice daily adding to the burden of disease outlined from #1 - #4 - Give hydrocortisone 50 mg IV TID and check cortisol level. 6. History of admission here from May 10, 2023 to May 14, 2023 for for acutehypoxic respiratory failure due to a combination of influenza A and aspiration pneumonia in setting of previously known schizophrenia complicated by toxic encephalopathy - Noted. 7. Essential hypertension; on propranolol twice daily - Hold scheduled antihypertensives in light of #1. 8. Hyperlipidemia; on atorvastatin - Resume statin as previous. 9. History of tobacco abuse with subsequent asthma/COPD; on as needed albuterolplus nicotine replacement - Noted with no evidence of acute flare at this time. Continue as needed albuterol and nicotine replacement as before. 10. Seizure disorder; on divalproex - Check valproic acid level and replace with IV levetiracetam as there is a significant potential adverse drug interaction with meropenem. 11. Chronic oral dysphagia - Noted with patient currently n.p.o. and with swallow study pending. 12. IBS; of constipation type on lactulose twice daily - Restart this agent when patient able to tolerate oral intake. 13. BPH; with history of obstructive uropathy on tamsulosin - Resume tamsulosinwhen patient is able to tolerate oral intake. 14. History of hydrocele - Noted. 15. CKD; stage II - Stable with serum creatinine of 1.19 mg/dL, BUN of 22 mg/dLand EGFR of 69 mL/min present on admission. 16. Chronic pancytopenia with superimposed iron deficiency anemia - Stable withWBC of 7.7K, hemoglobin of 9.9 g/dL and platelet count of 114K present on admission. 17. History of vitamin D deficiency - Maintain vitamin D supplement when patient can safely tolerate oral intake. 18. OA; with polyarthropathy - Stable. Give acetaminophen as outlined in #1. 19. DVT/GI prophylaxis - Enoxaparin 40 mg sq daily plus SCD's. Pantoprazole 40mg IV daily. Total time: Approximately (but not less than) 75 minutes. Sepsis Attestation Sepsis Alert: Yes Sepsis Attestation: Agree w/Sepsis Date exam was performed: 08/19/24 Time exam was performed: 00:05 Possible Source of Sepsis: Genitourinary Sepsis Organ Dysfunction Criteria Present: SBP < 90 mmHg or MAP < 65 mmHg, SBP decrease of more than 40 mmHg and New/Unexplained change in mental status Fluid Resuscitation Fluid resuscitation indicated?: Yes Fluid Resuscitation ordered: 30 ml/kg fluid bolus ordered Amount of fluid ordered: 2 Sepsis Note Date exam was performed: 08/19/24 Time exam was performed: 04:05 Sepsis Attestation: Sepsis re-evaluation was performed Response to fluids: Non Fluid responsive hypotension and Vasopressors started Charges/Coding Visit Charges Inpatient E&M: 38200 Init Hosp L3 08/19/24 0655 <Electronically signed by Robert Huizar DO> Cosigner Signature (if applicable): CC: Dr. Robert Huizar DO; Dr. Ashley Dickey MD~ Signed [facility] Work Phone: 1(469) 777-985206-19-2025 Radiology Diagnostic study [facility]06-19-2025 [facility]06-19-2025 Consult note Author Stan Mora [facility] Note Date/Time August 19, 2024 2:33 am [facility] Medical Records Department [address] [place] [address] Pharmacokinetic/Renal -Consult 08/19/24 0218 MR#: [id number] Acct: [id number] Name: NANDO OCHOA Rep #:[id number] : 1960 63 From: Stan Mora PCP: Dr. Ashley Dickey MD Status:ADM IN Y Location: ICU ICU02-1 Consult Antibiotic Management Pharmacy has been consulted to manage selected antibiotic: Vancomycin Type of Intervention Type of Consult: New start Suspected Infection Suspected Infection: Sepsis Labs Labs: Sodium 139 mmol/L (133-145) 08/18/24 18:59 Potassium 4.1 mmol/L (3.3-5.1) 08/18/24 18:59 Chloride 107 mmol/L (98-108) 08/18/24 18:59 Carbon Dioxide 25.1 mmol/L (21.0-32.0) 08/18/24 18:59 Anion Gap 8 (5-15) 08/18/24 18:59 BUN 22 mg/dL (4-19) H 08/18/24 18:59 Creatinine 1.19 mg/dL (0.70-1.20) 08/18/24 18:59 Est GFR (MDRD) Non-Af 69 (>60) 08/18/24 18:59 BUN/Creatinine Ratio 18.2 RATIO (10-20) 08/18/24 18:59 Glucose 137 mg/dL (70-99) H 08/18/24 18:59 Dosing Weight Weight used for dosin.5 kg Estimated Creatinine Clearance Estimated Creatinine Clearance: 62 Goal Trough Goal Trough: 15-20 mcg/mL Pharmacy Plan for Drug Dosing Pharmacy Plan for Drug Dosing: Pharmacy Service will continue to monitor and adjust dosing as required. Follow-Up Labs Follow-Up Labs: Trough: Vancomycin Date/Time Labs Ordered Labs to be done on [date and time ordered]: 08/20/24 @1330 08/19/24 0219 <Electronically signed by Stan Canchola ds> Date _ Stan Mora 08/19/24 0233 <Electronically signed by Robert Pro DO> Cosigner Signature (if applicable): Date Robert Huizar DO CC: ~ Signed [facility] Work Phone: 1([phone]) 116-177806-19-2025 Radiology Diagnostic study [facility]06-19-2025 Radiology Diagnostic study [facility]06-19-2025 Radiology Diagnostic study [facility] 08-19-2024 Evaluation note* Diagnosis Onset Date Resolution Status Admit Date Acute cystitis without hematuria acu te August 19, 2024 12:04am Acute metabolic encephalopathy acute August 19, 2024 12:04am Acute respiratory insufficiency acut e August 19, 2024 12:04am Anxiety and depression acute Ju 2024 12:04am Closed intertrochanteric fra cture of left femur acute August 19, 2024 12:04am Constipation acute August 19 12:04am Dementia acute August 19 12:04am Hip fracture acute August 19 12:04am History of anoxic brain injury acute August 19, 2024 12:04am History of schizophrenia acute August 19, 2024 12:04am Intertrochanteric fracture o f left femur acute August 19, 2024 12:04am MRSA bacteremia acute August 12:04am Schizoaffective disorder acute August 19, 2024 12:04am Sepsis acute August 19 12:04am Stercoral ulcer of large intestine a cute August 19, 2024 12:04am [facility] Work Phone: 1(551) 521-767306-19-2025 Evaluation note* Diagnosis Onset Date Resolution Status Admit Date Acute cystitis without hematuria acu te August 19, 2024 12:04am Acute metabolic encephalopathy acute August 19, 2024 12:04am Acute respiratory insufficiency acut e August 19, 2024 12:04am Anxiety and depression acute 2024 12:04am Closed intertrochanteric fra cture of left femur acute August 19, 2024 12:04am Dementia acute August 19 12:04am Hip fracture acute August 19 12:04am History of anoxic brain injury acute August 19, 2024 12:04am History of schizophrenia acute August 19, 2024 12:04am Schizoaffective disorder acute August 19, 2024 12:04am Sepsis acute August 19 12:04am Intertrochanteric fracture o f left femur resolved August 19, 2024 12:04am Constipation inactive August 19 12:04am MRSA bacteremia inactive August 12:04am Stercoral ulcer of large intestine inactive August 19, 2024 12:04am [facility] Work Phone: 1(292) 298-539306-18-2025 Radiology Diagnostic study note [facility] Imaging Services [address] [place] [address] Chest 1 View (Portable) MR#: [id number] Acct: [id number] Name: NANDO OCHOA Rep #: [id number] : 1960 M 63 From: Wong Sullivan MD PCP: Dr. Ashley Dickey MD Status: REG ER Study:Chest 1 View (Portable) Date of Exam: 08/18/24 Exam# [id number] Ordering Dr: Hany Olvera MD PROCEDURE: CHEST 1 VIEW (PORTABLE) 08/18/2024 REASON FOR EXAM: BIBASILAR RALES TECHNIQUE: Frontal view of the chest. COMPARISON: 05/12/2023. FINDINGS: The cardiac and mediastinal contours are normal. The lungs are clear. RAD/Chest 1 View (Portable) IMPRESSION: NEGATIVE SINGLE VIEW OF THE CHEST. Reading Location: [id number] CC: Dr. Ashley Dickey MD; Dr. Jose Olvera MD ~ Swine Genetics Researcher: Signed [facility]03-12-2025 History of Present illness Narrative* Patricia CARYL Rawls - 05/12/2024 2:00 PM EDT Patient ID: Nando Ochoa is a 63 y.o. male. Procedures The patient was prepped using a Betadine solution. Lidocaine jelly was instilled into the urethra. The flexible cystoscope was sterilely inserted into the urethra and formal cystoscopy performed in asystematic fashion. . For detailed findings of the procedure, please see Dr. Christensen remarks below CIPRO 250MG POBID TIMES 3 DAYS GIVEN NO MASS. S/P TURP. NO PROSTATIC OBSTRUCTION. SIGNIFICANT TRABECULATION, PVR WAS ELEVATED BMP AND PSA HAS BEEN ORDERED F/U 3 MONTHS WITH ABOVE LABS. IF RENAL FUNCTION NORMAL AND NO RECURRENT UTI OR BOTHERSOME LUTS WOULD OBSERVE ELEVATED PVR documented in this [facility] Work Phone: 1(525) 301-591511-07-2024 History of Present illness Narrative* Narinder Christensen MD - 01/08/2024 11:45 AM EST Subjective Patient ID: Nando Ochoa is a 63 y.o. male. HPI Patient is here for gross hematuria. Aide is unsure when this started or if this is still going on.Chronic hx of gross hematuria. Pt did have [...] prostatehealth supplements discussed. Treatment options for LUTS reviewed-incontinent PVR ordered Discussed timed voiding. Discussed fluid and caffeine intake Treatment options for ED reviewed-Observe Lifestyle change to help prevent UTIs discussed. Encouraged fluid intake. F/U Cysto with CT Assess PVR at cysto documented in this [facility] Work Phone: 1(767) 645-972104-17-2024 History of Present illness Narrative* Narinder Christensen MD - 06/18/2023 1:15 PM EDT Subjective Patient ID: Nando Ochoa is a 62 y.o. male. HPI Patient [...] 1 year with PSA documented in this [facility] Work Phone: 1(427) 247-588203-13-2024 Consult note Author Scott Blandon [facility] May 14, 2023 1:52pm Note Date/Time May 14, 2023 9:1 7am [facility] Medical Records Department [address] [place] [address] Consultation - Administrative Supervisor 05/14/23 0914 MR#: [id number] Acct: [id number] Name: NANDO OCHOA Rep #:[id number] : 1960 62 From: Scott Blandon MD PCP: Dr. Ashley Dickey MD Status:ADM IN Location: [place] 076954-1 Assessment & Plan Assessment/Plan (1) Acute hypoxic [...] Reason for Consultation: Hypoxia HPI Narrative: NANDO OCHOA is a 62 M, with past medical history listed below, who presented to [facility] on 05/10/2023 secondary to hypoxia and [...] Unable to obtain a review of systems [facility] Medical History Adrenal insufficiency Anxiety and depression [...] 19:37 Social History household members: none housing: residential Smoking Status: Current every day smoker tobacco [...] Neut % (Auto) 68.7, Lymph % (Auto) 25.7,[place] % (Auto) 5.3, Eos % (Auto) 0.0, [...] basilar atelectasis/infiltrate. Charges/Coding Visit Charges Inpatient E&M: 98581 Init Hosp L3 05/14/23 1352 <Electronically signed [...] Ji MD; Dr. Antonia Parsons MD~ Signed [facility] Work Phone: 1([phone]) 673-583903-12-2024 Progress note Author Kirsty Rodarte [facility] May 13, 2023 5:28pm Note Date/Time May 13, 2023 5:2 9pm [facility] Medical Records Department [address] [place] [address] Progress Note - Hospitalist 05/13/23 1721 MR#: [id number] Acct: [id number] Name: NANDO OCHOA Rep #:[id number] : 1960 62 From: Kirsty Rodarte DO PCP: Dr. Ashley Dickey MD Status:ADM IN Location: [place] [address] Reason for Visit Reason for Visit: Diagnoses [...] (Auto) 73.1 H, Lymph % (Auto) 19.8, [place] % (Auto) 6.2, Eos % (Auto) 0.0, [...] not interact with me at this time, inspector aide at the bedside HEENT head/scalp atraumatic [...] -DNR CCA Charges/Coding Visit Charges Inpatient E&M: 95416 Subs Hosp L3 05/13/23 8538 <Electronically signed by Kirsty Rodarte DO> Cosigner Signature (if applicable): CC: ~ Signed [facility] Work Phone: 1(371) 956-689103-12-2024 Procedure [facility] 05-12-2023 Progress note Author Kirsty Rodarte [facility] May 12, 2023 6:06pm Note Date/Time May 12, 2023 10: 23am [facility] Medical Records Department [address] [place] [address] Progress Note - Hospitalist 05/12/23 1009 MR#: [id number] Acct: [id number] Name: NANDO OCHOA Rep #:[id number] : 1960 62 From: Kirsty Rodarte DO PCP: Dr. Ashley Dickey MD Status:ADM IN Location: [facility] [id number] Reason for Visit Reason for Visit: Shortness of breath, hypoxia, fever Subjective Subjective Patient is a 62-year-old white male with a history of anoxic injury and dementiawho is a resident at a local [facility] who presented to the emergency department at [facility] on 05/10/2023 with acute onset of [...] 76.1 H, Lymph % (Auto) 15.2 L, [place] % (Auto) 7.7, Eos % (Auto) 0.0, [...] -DNR CCA Charges/Coding Visit Charges Inpatient E&M: 95514 Subs Hosp L2 05/12/23 1580 <Electronically signed by Kirsty Rodarte DO> Cosigner Signature (if applicable): CC: ~ Signed [facility] Work Phone: 1(252) 109-817003-10-2024 Progress note Author Robert Barr [facility] May 11, 2023 9:20am Note Date/Time May 11, 2023 9:1 9am [facility] Medical Records Department [address] [place] [address] Progress Note - Hospitalist 05/11/23 0916 MR#: [id number] Acct: [id number] Name: NANDO OCHOA Rep #:[id number] : 1960 62 From: Robert Barr MD PCP: Dr. Ashley Dickey MD Status:ADM IN Location: [address] Reason for Visit Reason for Visit: [...] Neut % (Auto) 65.6, Lymph % (Auto) 25.6,[place] % (Auto) 8.0, Eos % (Auto) 0.0, [...] 40 Minutes Charges/Coding Visit Charges Inpatient E&M: 17496 Subs Hosp L2 05/11/23919 <Electronically signed by Robert Barr MD> Cosigner Signature (if applicable): CC: ~ Signed [facility] Work Phone: 1(574) 781-273103-09-2024 Progress note Author Robert Barr [facility] May 10, 2023 10:00am Note Date/Time May 10, 2023 7:23 am [facility] Medical Records Department [address] [place] [address] Progress Note - Hospitalist 05/10/2317 MR#: [id number] Acct: [id number] Name: NANDO OCHOA Rep #:[id number] : 1960 62 From: Robert Barr MD PCP: Dr. Ashley Dickey MD Status:ADM IN Location: [place] [address] Reason for Visit Reason for Visit: Diagnoses [...] % (Auto) 65.0, Lymph % (Auto) 24.7, [place] % (Auto) 9.7, Eos % (Auto) 0.0, [...] (Auto) 77.4 H, Lymph % (Auto) 18.4L, [place] % (Auto) 3.7, Eos % (Auto) 0.0, [...] Darren Cotto MD at 4:24 EST , Physical Exam Narrative GENERAL: cooperative HEENT: [...] Cosigner Signature (if applicable): CC: ~ Signed [facility] Work Phone: 1([phone]) 457-715703-09-2024 History and physical note Author Roxanne More [facility] May 10, 2023 4:00am Note Date/Time May 10, 2023 3:20 am [facility] Medical Records Department [address] [place] [address] H&P Exam - Hospitalist 05/10/23 0318 MR#: [id number] Acct: [id number] Name: NANDO OCHOA Rep #:[id number] : 1960 62 From: Roxanne More MD [...] GERD, HTN, HLD who presents to the [facility] ED on 05/10/23 withhistory of onset over the last 24 hours fever, dyspnea, tachypnea with hypoxia noted at detention facility with accessory muscle usage and temperature [...] as Solu-Medrol 125 mg IV x 1. [facility] Medical History (Updated 05/10/23 @ 03:56 [...] Roxanne More MD) household members: none housing: residential Smoking Status: Current every day smoker tobacco [...] % (Auto) 65.0, Lymph % (Auto) 24.7, [place] % (Auto) 9.7, Eos % (Auto) 0.0, [...] GERD, HTN, HLD who presents to the [facility] ED on 05/10/23 withhistory of onset over the last 24 hours fever, dyspnea, tachypnea with hypoxia noted at detention facility with accessory muscle usage and temperature [...] CC status. Charges/Coding Visit Charges Inpatient E&M: 01258 Init Hosp L3 05/10/23 0400 <Electronically signed by Roxanne More MD> Cosigner Signature (if applicable): CC: Dr. Roxanne More MD; Dr. Ashley Dickey MD~ Signed [facility] Work Phone: 1([phone]) 311-588903-09-2024 History and physical note Author [facility] May 10, 2023 4:00am Note Date/Time May 10, 2023 3:20 am [facility] Medical Records Department [address] [place] [address] H&P Exam - Hospitalist 05/10/23 0318 MR#: [id number] Acct: [id number] Name: NANDO OCHOA Rep #:[id number] : 1960 62 From: Roxanne More MD [...] GERD, HTN, HLD who presents to the [facility] ED on 05/10/23 withhistory of onset over the last 24 hours fever, dyspnea, tachypnea with hypoxia noted at detention facility with accessory muscle usage and temperature [...] as Solu-Medrol 125 mg IV x 1. [facility] Medical History (Updated 05/10/23 @ 03:56 [...] Roxanne More MD) household members: none housing: residential Smoking Status: Current every day smoker tobacco [...] % (Auto) 65.0, Lymph % (Auto) 24.7, [place] % (Auto) 9.7, Eos % (Auto) 0.0, [...] GERD, HTN, HLD who presents to the [facility] ED on 05/10/23 withhistory of onset over the last 24 hours fever, dyspnea, tachypnea with hypoxia noted at detention facility with accessory muscle usage and temperature [...] CC status. Charges/Coding Visit Charges Inpatient E&M: 79574 Init Hosp L3 05/10/23 0400 <Electronically signed by Roxanne More MD> Cosigner Signature (if applicable): CC: Dr. Roxanne More MD; Dr. Ashley Dickey MD~ Signed [facility] Work Phone: 1([phone]) [phone] Discharge summary Author Jose Olvera [facility] May 10, 2023 3:56am Note Date/Time May 10, 2023 2:10 am [facility] Medical Records Department [address] [place] [address] Emergency Department Summary 05/10/23 MR#: [id number] Acct: [id number] Name: NANDO OCHOA Rep #:[id number] : 1960 62 From: Jose Olvera MD [...] to determine) Relieved by: - (Nothing per residential staff) Associated Symptoms cough and rhinorrhea Chest [...] Roxanne More MD) household members: none housing: residential Smoking Status: Current every day smoker tobacco [...] % (Auto) 65.0 Lymph % (Auto) 24.7 [place] % (Auto) 9.7 Eos % (Auto) 0.0 [...] Provider] - Disposition Disposition: Acute Care Hospital [facility] What to do if you have Problems For any increased pain, shortness of breath, bleeding, nausea or vomiting, chestpain, or any unexpected problems, contact your Primary Care Provider. Call [facility] ([phone]) or report to the closest Emergency Room. Call 911 if necessary. 05/10/23 0356 <Electronically signed by Jose Olvera MD> Cosigner Signature (if applicable): CC: Dr. Ashley Dickey MD ~ Signed [facility] Work Phone: 1([phone]) 189-170603-09-2024 Discharge summary Author Jose Olvera [facility] May 10, 2023 3:56am Note Date/Time May 10, 2023 2:10 am [facility] Medical Records Department [address] [place] [address] Emergency Department Summary 05/10/23 MR#: [id number] Acct: [id number] Name: NANDO OCHOA Rep #:[id number] : 1960 62 From: Jose Olvera MD [...] to determine) Relieved by: - (Nothing per residential staff) Associated Symptoms cough and rhinorrhea Chest [...] Prior similar symptoms: No Recent Illness/Hospitalization: No [facility] Medical History (Updated 05/10/23 @ 03:56 by [...] Roxanne More MD) household members: none housing: residential Smoking Status: Current every day smoker tobacco [...] patient's orientation. He does move all extremities. [place] Coma Scale: document GCS findings Spontaneous Obeys [...] % (Auto) 65.0 Lymph % (Auto) 24.7 [place] % (Auto) 9.7 Eos % (Auto) 0.0 [...] Provider] - Disposition Disposition: Acute Care Hospital [facility] What to do if you have Problems For any increased pain, shortness of breath, bleeding, nausea or vomiting, chestpain, or any unexpected problems, contact your Primary Care Provider. Call [facility] ([phone]) or report to the closest Emergency Room. Call 911 if necessary. 05/10/23 0356 <Electronically signed by Jose Olvera MD> Cosigner Signature (if applicable): CC: Dr. Ashley Dickey MD ~ Signed [facility] Work Phone: 1(480) 313-642701-17-2024 History of Present illness Narrative* Narinder Christensen MD - 03/19/2023 1:30 PM EST Subjective Patient ID: Nando Ochoa is a 62 y.o. male. HPI Patient [...] with PSA 3 months documented in this [facility] Work Phone: 1(296) 175-460301-03-2024 History of Present illness Narrative* Narinder Christensen MD - 03/05/2023 10:15 AM EST Subjective Patient ID: Nando Ochoa is a 62 y.o. male. HPI Patient [...] abcess F/U with PSA documented in this [facility] Work Phone: 1(521) 567-325003-23-2023 History of Present illness NarrativeChronic hx of [...] having testicular pain..pt states the pain is intermittent..[facility] Work Phone: 1(423) 482-895705-03-2021 History of Present illness NarrativePatient here labs..Most [...] for LUTs..Frequent UTI's last one in 05/2020. [facility] Work Phone: Discharge summary Author Kirsty Rodarte [facility] May 14, 2023 4:19pm Note Date/Time May 14, 2023 3:5 7pm [facility] Medical Records Department [address] [place] [address] Transfer to [facility] Care MR#: [id number] Acct: [id number] Name: NANDO OCHOA Rep #:[id number] : 1960 62 From: Kirsty Rodarte DO PCP: Dr. Ashley Dickey MD Status:ADM IN Certification of patient admission REQUIRED AT TIME OF ADMISSION. I CERTIFY THAT POST-HOSPITAL ECF SERVICES ARE REQUIRED TO BE GIVEN ON AN IN-PATIENT BASIS BECAUSE OF THE ABOVE NAMED PATIENT'S NEED FOR [facility] CARE ON A CONTINUING BASIS FOR THE CONDITION(S) FOR WHICH HE/SHE WAS RECEIVING IN-PATIENT HOSPITAL SERVICES PRIOR TO HIS/HER TRANSFER TO THE F. 05/14/23 1602<Electronically signed by Kirsty Rodarte DO> [...] diet for now with consistency/texture as per ZINC PLATE CUTTER; change to cardiac diet as needed as [...] Dickey MD [Primary Care Provider] - 05/14/23 7340 <Electronically signed by Kirsty Rodarte DO> Cosigner [...] MD; Dr. Antonia Parsons MD ~* Signed [facility] Work Phone: Discharge summary Author Kirsty Rodarte [facility] May 14, 2023 4:28pm Note Date/Time May 14, 2023 4:0 7pm [facility] Medical Records Department [address] [place] [address] Discharge Summary 05/14/23 1605 MR#: [id number] Acct: [id number] Name: NANDO OCHOA Rep #:[id number] : 1960 62 From: Kirsty Rodarte DO PCP: Dr. Ashley Dickey MD Status:ADM [facility] Prov[facility] Date of Admission: 05/10/23 Date of Discharge: 05/14/23 Primary Care Physician: Dr. Ashley Dickey MD Consultations 05/13/23 16:03 Consult: Administrative Supervisor / Pulmonary Medicine Routine Consulting Provider: [...] (Nicotrol) 1 inh inhalation Q2H PRN nicotinecravings 03/09/24 paroxetine HCl 20 mg tablet 20 mg [...] dementiawho is a resident at a local [facility] who presented to the emergency department at [facility] on 05/10/2023 with acute onset of [...] Neut % (Auto) 68.7, Lymph % (Auto) 25.7,[place] % (Auto) 5.3, Eos % (Auto) 0.0, [...] NH/Intermed Care Charges/Coding Visit Charges Inpatient E&M: 98077 SNF Disch >30 Min 05/14/23 1628 <Electronically signed by Kirsty Rodarte DO> Cosigner Signature (if applicable): CC: Dr. Kirsty Rodarte DO; Dr. Ashley Dickey MD~ Signed [facility] Work Phone: Evaluation noteNo assessment information available [facility] Work Phone: evaluation note* Diagnosis Scrotal abscess- Primary Other inflammatory disorder of male genital organs Nocturia Urinary incontinence, unspecified type Urinary frequency documented in this encounter [facility] Work Phone: Evaluation note* Diagnosis Scrotal abscess Other inflammatory disorder of male genital organs Urinary frequency Nocturia documented in this encounter [facility] Work Phone: Evaluation note* Diagnosis Onset Date Resolution Status Acute bronchospasm acute Acute hypoxic respiratory failure acute History of schizophrenia acu te Right lower lobe pulmonary infiltrate acute Type A influenza acute [facility] Work Phone: Evaluation note* Diagnosis Onset Date Resolution Status Acute bronchospasm acute Acute hypoxic respiratory failure acute Bradycardia acute History of schizophrenia acu te Right lower lobe pulmonary infiltrate acute Toxic metabolic encephalopathy acute Type A influenza acute [facility] Work Phone: Evaluation note* Diagnosis Scrotal abscess- Primary Other inflammatory disorder of male genital organs Urinary frequency Nocturia Urinary incontinence, unspecified type documented in this encounter [facility] Work Phone: Evaluation note* Diagnosis Gross hematuria Nocturia Urinary incontinence, unspecified type documented in this encounter [facility] Work Phone: Evaluation note* Diagnosis Urinary retention- Primary Unspecified retention of urine documented in this encounter [facility] Work Phone: Evaluation note* Diagnosis Onset Date Resolution Status Admit Date Acute cystitis without hematuria acu te August 19, 2024 12:04am Acute metabolic encephalopathy acute August 19, 2024 12:04am Acute respiratory insufficiency acut e August 19, 2024 12:04am Anxiety and depression acute Ju ne 2024 12:04am Dementia acute August 19 12:04am History of anoxic brain injury acute August 19, 2024 12:04am History of schizophrenia acute August 19, 2024 12:04am Schizoaffective disorder acute August 19, 2024 12:04am Sepsis acute August 19 12:04am [facility] Work Phone: History of Present illness NarrativePatient [...] 0.49 (08/22) Previous PSA was 0.8 (08/21) .[facility] Work Phone: Reason for referral (narrative)No reason for referral information availableWTrumbull [facility] Work Phone: Summary Purpose Family History Unknown Family Member Name Dates Details No [...] history: Mother, Father(V49.89, Z78.9) Status:Active Advance Directives Advance Directive Response Recorded Date/ Time Living Will No May 26, 2017 8:51am Power of Engineering Executive Yes May 26 8:51am Advance Directive Response Recorded Date/ Time Name of Medical Power of Engineering Executive pt doesnt know May 10, 2023 5:08am Living Will Yes May 10, 2023 5:08am Power of Engineering Executive Yes May 09 5:08am Advance Directive Response Recorded Date/ Time Name of Medical Power of Engineering Executive pt doesnt know May 10, 2023 6:08am Living Will Yes May 10, 2023 6:08am Power of Engineering Executive Yes May 09 6:08am Advance Directive Response Recorded Date/ Time Do you have a Healthcare Power of Engineering Executive? Yes August 18, 2024 6:29pm Chief Complaint labsyearly follow up with [facility] [...] infiltrate Toxic metabolic encephalopathy Type A influenza Chief Complaint Admit Date UTI, HYPOTENSION, AMS AND HYPOXIA August 012024 12:04am Reason for Visit Admit Date Acute cystitis without hematuria August 192024 12:04am Acute metabolic encephalopathy August 12:04am Acute respiratory insufficiency August 12:04am Anxiety and depression August 19, 2024 1 2:04am Dementia August 19, 2024 12:0 4am History of anoxic brain injury August 12:04am History of schizophrenia August 19, 2024 12:04am Schizoaffective disorder August 19, 2024 12:04am Sepsis August 19, 2024 12:0 4am Chief Complaint Admit Date UTI, HYPOTENSION, AMS AND HYPOXIA August 012024 12:04am UTI, HYPOTENSION, AMS AND HYPOXIA August 012024 6:46am UTI, HYPOTENSION, AMS AND HYPOXIA August 012024 7:41am UTI, HYPOTENSION, AMS AND HYPOXIA August 012024 8:01am UTI, HYPOTENSION, AMS AND HYPOXIA August 022024 6:52am UTI, HYPOTENSION, AMS AND HYPOXIA August 022024 8:51am UTI, HYPOTENSION, AMS AND HYPOXIA August 022024 1:49pm UTI, HYPOTENSION, AMS AND HYPOXIA August 022024 2:11pm UTI, HYPOTENSION, AMS AND HYPOXIA August 022024 1:49pm UTI, HYPOTENSION, AMS AND HYPOXIA August 022024 10:09am UTI, HYPOTENSION, AMS AND HYPOXIA August 022024 2:42pm UTI, HYPOTENSION, AMS AND HYPOXIA August 022024 11:37am UTI, HYPOTENSION, AMS AND HYPOXIA August 022024 6:39pm UTI, HYPOTENSION, AMS AND HYPOXIA August 022024 3:57am UTI, HYPOTENSION, AMS AND HYPOXIA August 022024 12:17am UTI, HYPOTENSION, AMS AND HYPOXIA August 022024 10:01am Reason for Visit Admit Date Acute cystitis without hematuria August 192024 12:04am Acute metabolic encephalopathy August 12:04am Acute respiratory insufficiency August 12:04am Anxiety and depression August 19, 2024 1 2:04am Closed intertrochanteric fracture of lef t femur August 19, 2024 12:04am Constipation August 19, 2024 12:0 4am Dementia August 19, 2024 12:0 4am Hip fracture August 19, 2024 12:0 4am History of anoxic brain injury August 12:04am History of schizophrenia August 19, 2024 12:04am Intertrochanteric fracture of left femur August 19, 2024 12:04am MRSA bacteremia August 19, 2024 12:0 4am Schizoaffective disorder August 19, 2024 12:04am Sepsis August 19, 2024 12:0 4am Stercoral ulcer of large intestine August 19, 2024 12:04am Reason for Visit Admit Date Acute cystitis without hematuria August 192024 12:04am Acute metabolic encephalopathy August 12:04am Acute respiratory insufficiency August 12:04am Anxiety and depression August 19, 2024 1 2:04am Closed intertrochanteric fracture of lef t femur August 19, 2024 12:04am Dementia August 19, 2024 12:0 4am Hip fracture August 19, 2024 12:0 4am History of anoxic brain injury August 12:04am History of schizophrenia August 19, 2024 12:04am Schizoaffective disorder August 19, 2024 12:04am Sepsis August 19, 2024 12:0 4am Intertrochanteric fracture of left femur August 19, 2024 12:04am Constipation August 19, 2024 12:0 4am MRSA bacteremia August 19, 2024 12:0 4am Stercoral ulcer of large intestine August 19, 2024 12:04am Chief Complaint Admit Date UTI, HYPOTENSION, AMS AND HYPOXIA August 012024 12:04am UTI, HYPOTENSION, AMS AND HYPOXIA August 012024 6:46am UTI, HYPOTENSION, AMS AND HYPOXIA August 012024 7:41am UTI, HYPOTENSION, AMS AND HYPOXIA August 012024 8:01am UTI, HYPOTENSION, AMS AND HYPOXIA August 022024 6:52am UTI, HYPOTENSION, AMS AND HYPOXIA August 022024 8:51am UTI, HYPOTENSION, AMS AND HYPOXIA August 022024 1:49pm UTI, HYPOTENSION, AMS AND HYPOXIA August 022024 2:11pm UTI, HYPOTENSION, AMS AND HYPOXIA August 022024 1:49pm UTI, HYPOTENSION, AMS AND HYPOXIA August 022024 10:09am UTI, HYPOTENSION, AMS AND HYPOXIA August 022024 2:42pm UTI, HYPOTENSION, AMS AND HYPOXIA August 022024 11:37am UTI, HYPOTENSION, AMS AND HYPOXIA August 022024 6:39pm UTI, HYPOTENSION, AMS AND HYPOXIA August 022024 3:57am UTI, HYPOTENSION, AMS AND HYPOXIA August 022024 12:17am UTI, HYPOTENSION, AMS AND HYPOXIA August 022024 10:01am LEFT HIP September 08, 2024 3:08p m Xray room 5 September 08, 2024 3:57p m Additional Source Comments (unrecognized sect ion and content) No Status Records FoundNo Status Records FoundNo Status Records FoundNo Status Records FoundNo Status Records FoundNo Status Records FoundNo Status Records Found INFORMATION SOURCE (unrecogn ized section and content) DATE CREATED AUTHOR 08/25/2017 [facility] DATE CREATED AUTHOR AUTHOR'S ORGANIZ ATION 10/30/2021 [facility] DATE CREATED AUTHOR AUTHOR'S ORGANIZ ATION 07/05/2022 [facility] DATE CREATED AUTHOR AUTHOR'S ORGANIZ ATION 07/05/2022 [employer] DATE CREATED AUTHOR AUTHOR'S ORGANIZ ATION 03/31/2024 [facility] DATE CREATED AUTHOR AUTHOR'S ORGANIZ ATION 05/15/2024 [facility] DATE CREATED AUTHOR AUTHOR'S ORGANIZ ATION 09/09/[address] [facility] Goals (unrecognized section and content) Goals may [...] Specialty Diagnoses / Procedures Referred By Jacques jorgensen Referred To Contact Urology Diagnoses Gross hematuria Procedures [place] CYSTOURETHROSCOPY [facility] [address] [facility] [address] [place] [address] Phone: tel: fax: Narinder Christensen MD [address] [place] [address] Phone: tel: fax: Referral ID Status Reason Start Date Expiration Date V isits Requested Visits Authorized [id number] Authorized 04/06/2024 04/06/2025 1 1 Care Teams (unrecognized sec tion and content) Research Lab Assistant Relationship Specialty Start Date End Date Ashley Dickey MD [address] [facility] [address] [place] [address] PCP - General 1/1/00 Research Lab Assistant Relationship Specialty Start Date End Date Ashley Dickey MD [address] [facility] [address] [place] [address] PCP - General 03/03/99 Team Status: Active [...] Provid er Active Dr. Lupillo Porras , Other Provider [...] Other Provider Active Dr. Kirsty Rodarte , Attending Provider Active Dr. Robert Barr MD [...] Dr. Yann Ji MD Other Provider Active Research Lab Assistant Relationship Specialty Start Date End Date Ashley Dickey MD [address] [facility] [address] [place] [id number] PCP - General 03/03/99 Research Lab Assistant Relationship Specialty Start Date End Date Ashley Dickey MD [address] [employer] [address] [place] [address] PCP - General 03/03/99 Research Lab Assistant Relationship Specialty Start Date End Date Ashley Dickey MD [address] [employer] [address] [place] [address] PCP - General 03/03/99 Team Status: Active Member Role Status Dates Dr. Ashley Dickey MD Primary Care Provider Active Team Status: Active Member Role Status Dates Dr. Ashley Dickey MD Primary Care Provider Active Start: August 19, 2024 Dr. Jose Olvera MD Emergency Provider Active Sta rt: August 19, 2024 Dr. Robert Huizar DO Admit Provider Active Start: August 19, 2024 Dr. Robert Huizar DO Attending Provider Active Start: August 19, 2024 Team Status: Active Member Role/Relationship Status Dates Dr. Ashley Dickey MD Primary Care Provider Active Team Status: Inactive Member Role/Relationship Status Dates Dr. Ashley Dickey MD Primary Care Provider Active Start: August 19, 2024 End: August 27, 2024 Dr. Jose Olvera MD Emergency Provider Active Sta rt: August 19, 2024 End: August 27, 2024 Dr. Robert Huizar DO Admit Provider Active Start: August 19, 2024 End: August 27, 2024 Dr. Robert Huizar DO Other Provider Active Start: August 19, 2024 End: August 27, 2024 Dr. Amauri Hermosillo DO Other Provider Active St art: August 19, 2024 End: August 27, 2024 Dr. Marciano Guerin MD Attending Provider Active Start: August 19, 2024 End: August 27, 2024 Dr. Marciano Guerin MD Other Provider Active Sta rt: August 19, 2024 End: August 27, 2024 Dr. Laci Jackson MD Other Provider Active Start: August 19, 2024 End: August 27, 2024 Dr. Jonnathan Campuzano MD Other Provider Active Start: August 19, 2024 End: August 27, 2024 Dr. Devin Bates MD Other Provider Active Start: August 19, 2024 End: August 27, 2024 Dr. Scott Blandon MD Other Provider Active Star t: August 19, 2024 End: August 27, 2024 Dr. Lupillo Porras DO Other Provider Active Start : August 19, 2024 End: August 27, 2024 Dr. Robert Fitch MD Other Provider Active Sta rt: August 19, 2024 End: August 27, 2024 Dr. Edwin Espinal MD Other Provider Active St art: August 19, 2024 End: August 27, 2024 Dr. Kt Garcia MD Other Provider Active S tart: August 19, 2024 End: August 27, 2024 Dr. Antonia Parsons MD Other Provider Active Start: August 19, 2024 End: August 27, 2024 Dr. Jose Johnson MD Other Provider Active Start : August 19, 2024 End: August 27, 2024 Dr. Alok Germain MD Other Provider Active Start: August 19, 2024 End: August 27, 2024 Dr. William Leon MD Other Provider Active Start : August 19, 2024 End: August 27, 2024 Dr. Sanjuana Wasserman MD Other Provider Active Star t: August 19, 2024 End: August 27, 2024 Dr. Tomer Hawkins MD Other Provider Active Sta rt: August 19, 2024 End: August 27, 2024 Dr. Kassi Hamilton MD Other Provider Active Sta rt: August 19, 2024 End: August 27, 2024 Dr. Dominic Hamilton MD Other Provider Active Star t: August 19, 2024 End: August 27, 2024 Dr. Beltran Dubois MD Other Provider Active St art: August 19, 2024 End: August 27, 2024 Dr. Jj uLtz MD Other Provider Active Star t: August 19, 2024 End: August 27, 2024 Dr. Winston Steel , Other Provider Active St art: August 19, 2024 End: August 27, 2024 Dr. Yazan Cortés MD Other Provider Active Start: August 19, 2024 End: August 27, 2024 Dr. Allen Dunham MD Other Provider Active St art: August 19, 2024 End: August 27, 2024 Dr. Braulio Mitchell , Other Provider Active Start: August 19, 2024 End: August 27, 2024 Dr. Cb Amor MD Other Provider Active Star t: August 19, 2024 End: August 27, 2024 Dr. Yann Ji MD Other Provider Active Sta rt: August 19, 2024 End: August 27, 2024 Dr. Redd Laughlin DO Other Provider Active Start: August 19, 2024 End: August 27, 2024 Team Status: Active Member Role/Relationship Status Dates Dr. Ashley Dickey MD Primary Care Provider Active Start: August 19, 2024 Dr. Jose Olvera MD Emergency Provider Active Sta rt: August 19, 2024 Dr. Robert Huizar DO Admit Provider Active Start: August 19, 2024 Dr. Robert Huizar DO Other Provider Active Start: August 19, 2024 Dr. Jonnathan Campuzano MD Other Provider Active Start: August 19, 2024 Dr. Devin Bates MD Other Provider Active Start: August 19, 2024 Dr. Scott Blandon MD Other Provider Active Star t: August 19, 2024 Dr. Lupillo Porras DO Attending Provider Active S tart: August 19, 2024 Dr. Lupillo Porras DO Other Provider Active Start : August 19, 2024 Dr. Robert Fitch MD Other Provider Active Sta rt: August 19, 2024 Dr. Edwin Espinal MD Other Provider Active St art: August 19, 2024 Dr. Kt Garcia MD Other Provider Active S tart: August 19, 2024 Dr. Antonia Parsons MD Other Provider Active Start: August 19, 2024 Dr. Jose Johnson MD Other Provider Active Start : August 19, 2024 Dr. Alok Germain MD Other Provider Active Start: August 19, 2024 Dr. William Leon MD Other Provider Active Start : August 19, 2024 Dr. Sanjuana Wasserman MD Other Provider Active Star t: August 19, 2024 Dr. Tomer Hawkins MD Other Provider Active Sta rt: August 19, 2024 Dr. Kassi Hamilton MD Other Provider Active Sta rt: August 19, 2024 Dr. Dominic Hamilton MD Other Provider Active Star t: August 19, 2024 Dr. Beltran Dubois MD Other Provider Active St art: August 19, 2024 Dr. Jj Lutz MD Other Provider Active Star t: August 19, 2024 Dr. Winston Steel DO Other Provider Active St art: August 19, 2024 Dr. Yazan Cortés MD Other Provider Active Start: August 19, 2024 Dr. Allen Dunham MD Other Provider Active St art: August 19, 2024 Dr. Braulio Mitchell DO Other Provider Active Start: August 19, 2024 Dr. Cb Amor MD Other Provider Active Star t: August 19, 2024 Dr. Yann Ji MD Other Provider Active Sta rt: August 19, 2024 Dr. Amauri Hermosillo DO Other Provider Active St art: August 19, 2024 Dr. Marciano Guerin MD Other Provider Active Sta rt: August 19, 2024 Team Status: Active Member Role/Relationship Status Dates Dr. Ashley Dickey MD Primary Care Provider Active Start: August 19, 2024 Dr. Jose Olvera MD Emergency Provider Active Sta rt: August 19, 2024 Dr. Robert Huizar DO Admit Provider Active Start: August 19, 2024 Dr. Robert Huizar DO Other Provider Active Start: August 19, 2024 Dr. Jonnathan Campuzano MD Other Provider Active Start: August 19, 2024 Dr. Devin Bates MD Other Provider Active Start: August 19, 2024 Dr. Scott Blandon MD Other Provider Active Star t: August 19, 2024 Dr. Lupillo Porras DO Other Provider Active Start : August 19, 2024 Dr. Robert Fitch MD Other Provider Active Sta rt: August 19, 2024 Dr. Edwin Espinal MD Other Provider Active St art: August 19, 2024 Dr. Kt Garcia MD Other Provider Active S tart: August 19, 2024 Dr. Antonia Parsons MD Other Provider Active Start: August 19, 2024 Dr. Jose Johnson MD Other Provider Active Start : August 19, 2024 Dr. Alok Germain MD Other Provider Active Start: August 19, 2024 Dr. William Leon MD Other Provider Active Start : August 19, 2024 Dr. Sanjuana Wasserman MD Other Provider Active Star t: August 19, 2024 Dr. Tomer Hawkins MD Other Provider Active Sta rt: August 19, 2024 Dr. Kassi Hamilton MD Other Provider Active Sta rt: August 19, 2024 Dr. Dominic Hamilton MD Other Provider Active Star t: August 19, 2024 Dr. Beltran Dubois MD Other Provider Active St art: August 19, 2024 Dr. Jj Lutz MD Other Provider Active Star t: August 19, 2024 Dr. Winston Steel DO Other Provider Active St art: August 19, 2024 Dr. Yazan Cortés MD Other Provider Active Start: August 19, 2024 Dr. Allen Dunham MD Other Provider Active St art: August 19, 2024 Dr. Braulio Mitchell DO Other Provider Active Start: August 19, 2024 Dr. Cb Amor MD Other Provider Active Star t: August 19, 2024 Dr. Yann Ji MD Other Provider Active Sta rt: August 19, 2024 Dr. Amauri Hermosillo DO Attending Provider Active Start: August 19, 2024 Dr. Amauri Hermosillo DO Other Provider Active St art: August 19, 2024 Dr. Marciano Guerin MD Other Provider Active Sta rt: August 19, 2024 Team Status: Active Member Role/Relationship Status Dates Dr. Ashley Dickey MD Primary Care Provider Active Start: August 19, 2024 Dr. Jose Olvera MD Emergency Provider Active Sta rt: August 19, 2024 Dr. Robert Huizar DO Admit Provider Active Start: August 19, 2024 Dr. Robert Huizar DO Other Provider Active Start: August 19, 2024 Dr. Jonnathan Campuzano MD Other Provider Active Start: August 19, 2024 Dr. Devin Bates MD Other Provider Active Start: August 19, 2024 Dr. Scott Blandon MD Other Provider Active Star t: August 19, 2024 Dr. Lupillo Porras DO Other Provider Active Start : August 19, 2024 Dr. Robert Fitch MD Other Provider Active Sta rt: August 19, 2024 Dr. Edwin Espinal MD Other Provider Active St art: August 19, 2024 Dr. Kt Garcia MD Other Provider Active S tart: August 19, 2024 Dr. Antonia Parsons MD Other Provider Active Start: August 19, 2024 Dr. Jose Johnson MD Other Provider Active Start : August 19, 2024 Dr. Alok Germain MD Other Provider Active Start: August 19, 2024 Dr. William Leon MD Other Provider Active Start : August 19, 2024 Dr. Sanjuana Wasserman MD Other Provider Active Star t: August 19, 2024 Dr. Tomer Hawkins MD Other Provider Active Sta rt: August 19, 2024 Dr. Kassi Hamilton MD Other Provider Active Sta rt: August 19, 2024 Dr. Dominic Hamilton MD Other Provider Active Star t: August 19, 2024 Dr. Beltran Dubois MD Other Provider Active St art: August 19, 2024 Dr. Jj Lutz MD Other Provider Active Star t: August 19, 2024 Dr. Winston Steel DO Other Provider Active St art: August 19, 2024 Dr. Yazan Cortés MD Other Provider Active Start: August 19, 2024 Dr. Allen Dunham MD Other Provider Active St art: August 19, 2024 Dr. Braulio Mitchell DO Other Provider Active Start: August 19, 2024 Dr. Cb Amor MD Other Provider Active Star t: August 19, 2024 Dr. Yann Ji MD Other Provider Active Sta rt: August 19, 2024 Dr. Amauri Hermosillo DO Other Provider Active St art: August 19, 2024 Dr. Marciano Guerin MD Attending Provider Active Start: August 19, 2024 Dr. Marciano Guerin MD Other Provider Active Sta rt: August 19, 2024 Team Status: Active Member Role/Relationship Status Dates Dr. Ashley Dickey MD Primary Care Provider Active Start: August 19, 2024 Dr. Hardik Cardenas MD Attending Provider Activ e Start: August 19, 2024 Team Status: Active Member Role/Relationship Status Dates Dr. Ashley Dickey MD Primary Care Provider Active Start: August 20, 2024 Dr. Jose Olvera MD Emergency Provider Active Sta rt: August 20, 2024 Dr. Robert Huizar DO Admit Provider Active Start: August 20, 2024 Dr. Robert Huizar DO Other Provider Active Start: August 20, 2024 Dr. Jonnathan Campuzano MD Other Provider Active Start: August 20, 2024 Dr. Devin Bates MD Other Provider Active Start: August 20, 2024 Dr. Scott Blandon MD Other Provider Active Star t: August 20, 2024 Dr. Lupillo Porras DO Attending Provider Active S tart: August 20, 2024 Dr. Lupillo Porras DO Other Provider Active Start : August 20, 2024 Dr. Robert Fitch MD Other Provider Active Sta rt: August 20, 2024 Dr. Edwin Espinal MD Other Provider Active St art: August 20, 2024 Dr. Kt Garcia MD Other Provider Active S tart: August 20, 2024 Dr. Antonia Parsons MD Other Provider Active Start: August 20, 2024 Dr. Jose Johnson MD Other Provider Active Start : August 20, 2024 Dr. Alok Germain MD Other Provider Active Start: August 20, 2024 Dr. William Leon MD Other Provider Active Start : August 20, 2024 Dr. Sanjuana Wasserman MD Other Provider Active Star t: August 20, 2024 Dr. Tomer Hawkins MD Other Provider Active Sta rt: August 20, 2024 Dr. Kassi Hamilton MD Other Provider Active Sta rt: August 20, 2024 Dr. Dominic Hamilton MD Other Provider Active Star t: August 20, 2024 Dr. Beltran Dubois MD Other Provider Active St art: August 20, 2024 Dr. Jj Lutz MD Other Provider Active Star t: August 20, 2024 Dr. Winston Steel , Other Provider Active St art: August 20, 2024 Dr. Yazan Cortés MD Other Provider Active Start: August 20, 2024 Dr. Allen Dunham MD Other Provider Active St art: August 20, 2024 Dr. Braulio Mitchell , Other Provider Active Start: August 20, 2024 Dr. Cb Amor MD Other Provider Active Star t: August 20, 2024 Dr. Yann Ji MD Other Provider Active Sta rt: August 20, 2024 Dr. Amauri Hermosillo DO Other Provider Active St art: August 20, 2024 Dr. Marciano Guerin MD Other Provider Active Sta rt: August 20, 2024 Team Status: Active Member Role/Relationship Status Dates Dr. Ashley Dickey MD Primary Care Provider Active Start: August 20, 2024 Dr. Jose Olvera MD Emergency Provider Active Sta rt: August 20, 2024 Dr. Robert Huizar DO Admit Provider Active Start: August 20, 2024 Dr. Robert Huizar DO Other Provider Active Start: August 20, 2024 Dr. Jonnathan Campuzano MD Other Provider Active Start: August 20, 2024 Dr. Devin Bates MD Other Provider Active Start: August 20, 2024 Dr. Scott Blandon MD Other Provider Active Star t: August 20, 2024 Dr. Lupillo Porras DO Other Provider Active Start : August 20, 2024 Dr. Robert Fitch MD Other Provider Active Sta rt: August 20, 2024 Dr. Edwin Espinal MD Other Provider Active St art: August 20, 2024 Dr. Kt Garcia MD Other Provider Active S tart: August 20, 2024 Dr. Antonia Parsons MD Other Provider Active Start: August 20, 2024 Dr. Jose Johnson MD Other Provider Active Start : August 20, 2024 Dr. Alok Germain MD Other Provider Active Start: August 20, 2024 Dr. William Leon MD Other Provider Active Start : August 20, 2024 Dr. Sanjuana Wasserman MD Other Provider Active Star t: August 20, 2024 Dr. Tomer Hawkins MD Other Provider Active Sta rt: August 20, 2024 Dr. Kassi Hamilton MD Other Provider Active Sta rt: August 20, 2024 Dr. Dominic Hamilton MD Other Provider Active Star t: August 20, 2024 Dr. Beltran Dubois MD Other Provider Active St art: August 20, 2024 Dr. Jj Lutz MD Other Provider Active Star t: August 20, 2024 Dr. Winston Steel , Other Provider Active St art: August 20, 2024 Dr. Yazan Cortés MD Other Provider Active Start: August 20, 2024 Dr. Allen Dunham MD Other Provider Active St art: August 20, 2024 Dr. Braulio Mitchell , Other Provider Active Start: August 20, 2024 Dr. Cb Amor MD Other Provider Active Star t: August 20, 2024 Dr. Yann Ji MD Other Provider Active Sta rt: August 20, 2024 Dr. Amauri Hermosillo , Other Provider Active St art: August 20, 2024 Dr. Marciano Guerin MD Attending Provider Active Start: August 20, 2024 Dr. Marciano Guerin MD Other Provider Active Sta rt: August 20, 2024 Team Status: Active Member Role/Relationship Status Dates Dr. Ashley Dickey MD Primary Care Provider Active Start: August 20, 2024 Dr. Jose Olvera MD Emergency Provider Active Sta rt: August 20, 2024 Dr. Robert Huizar DO Admit Provider Active Start: August 20, 2024 Dr. Robert Huizar DO Other Provider Active Start: August 20, 2024 Dr. Jonnathan Campuzano MD Other Provider Active Start: August 20, 2024 Dr. Devin Bates MD Other Provider Active Start: August 20, 2024 Dr. Scott Blandon MD Other Provider Active Star t: August 20, 2024 Dr. Lupillo Porras , Other Provider Active Start : August 20, 2024 Dr. Robert Fitch MD Other Provider Active Sta rt: August 20, 2024 Dr. Edwin Espinal MD Other Provider Active St art: August 20, 2024 Dr. Kt Garcia MD Other Provider Active S tart: August 20, 2024 Dr. Antonia Parsons MD Other Provider Active Start: August 20, 2024 Dr. Jose Johnson MD Other Provider Active Start : August 20, 2024 Dr. Alok Germain MD Other Provider Active Start: August 20, 2024 Dr. William Leon MD Other Provider Active Start : August 20, 2024 Dr. Sanjuana Wasserman MD Other Provider Active Star t: August 20, 2024 Dr. Tomer Hawkins MD Other Provider Active Sta rt: August 20, 2024 Dr. Kassi Hamilton MD Other Provider Active Sta rt: August 20, 2024 Dr. Dominic Hamilton MD Other Provider Active Star t: August 20, 2024 Dr. Beltran Dubois MD Other Provider Active St art: August 20, 2024 Dr. Jj Lutz MD Other Provider Active Star t: August 20, 2024 Dr. Winston Steel DO Other Provider Active St art: August 20, 2024 Dr. Yazan Cortés MD Other Provider Active Start: August 20, 2024 Dr. Allen Dunham MD Other Provider Active St art: August 20, 2024 Dr. Braulio Mitchell DO Other Provider Active Start: August 20, 2024 Dr. Cb Amor MD Other Provider Active Star t: August 20, 2024 Dr. Yann Ji MD Other Provider Active Sta rt: August 20, 2024 Dr. Amauri Hermosillo DO Attending Provider Active Start: August 20, 2024 Dr. Amauri Hermosillo DO Other Provider Active St art: August 20, 2024 Dr. Marciano Guerin MD Other Provider Active Sta rt: August 20, 2024 Team Status: Active Member Role/Relationship Status Dates Dr. Ashley Dickey MD Primary Care Provider Active Start: August 21, 2024 Dr. Jose Olvera MD Emergency Provider Active Sta rt: August 21, 2024 Dr. Robert Huizar DO Admit Provider Active Start: August 21, 2024 Dr. Robert Huizar DO Other Provider Active Start: August 21, 2024 Dr. Marciano Guerin MD Attending Provider Active Start: August 21, 2024 Dr. Marciano Guerin MD Other Provider Active Sta rt: August 21, 2024 Dr. Jonnathan Campuzano MD Other Provider Active Start: August 21, 2024 Dr. Devin Bates MD Other Provider Active Start: August 21, 2024 Dr. Scott Blandon MD Other Provider Active Star t: August 21, 2024 Dr. Lupillo Porras , Other Provider Active Start : August 21, 2024 Dr. Robert Fitch MD Other Provider Active Sta rt: August 21, 2024 Dr. Edwin Espinal MD Other Provider Active St art: August 21, 2024 Dr. Kt Garcia MD Other Provider Active S tart: August 21, 2024 Dr. Antonia Parsons MD Other Provider Active Start: August 21, 2024 Dr. Jose Johnson MD Other Provider Active Start : August 21, 2024 Dr. Alok Germain MD Other Provider Active Start: August 21, 2024 Dr. William Leon MD Other Provider Active Start : August 21, 2024 Dr. Sanjuana Wasserman MD Other Provider Active Star t: August 21, 2024 Dr. Tomer Hawkins MD Other Provider Active Sta rt: August 21, 2024 Dr. Kassi Hamilton MD Other Provider Active Sta rt: August 21, 2024 Dr. Dominic Hamilton MD Other Provider Active Star t: August 21, 2024 Dr. Beltran Dubois MD Other Provider Active St art: August 21, 2024 Dr. Jj Lutz MD Other Provider Active Star t: August 21, 2024 Dr. Winston Steel , Other Provider Active St art: August 21, 2024 Dr. Yazan Cortés MD Other Provider Active Start: August 21, 2024 Dr. Allen Dunham MD Other Provider Active St art: August 21, 2024 Dr. Braulio Mitchell , Other Provider Active Start: August 21, 2024 Dr. Cb Amor MD Other Provider Active Star t: August 21, 2024 Dr. Yann Ji MD Other Provider Active Sta rt: August 21, 2024 Dr. Amauri Hermosillo DO Other Provider Active St art: August 21, 2024 Team Status: Active Member Role/Relationship Status Dates Dr. Ashley Dickey MD Primary Care Provider Active Start: August 22, 2024 Dr. Jose Olvera MD Emergency Provider Active Sta rt: August 22, 2024 Dr. Robert Huizar , DO Admit Provider Active Start: August 22, 2024 Dr. Robert Huizar DO Other Provider Active Start: August 22, 2024 Dr. Marciano Guerin MD Attending Provider Active Start: August 22, 2024 Dr. Marciano Guerin MD Other Provider Active Sta rt: August 22, 2024 Dr. Jonnathan Campuzano MD Other Provider Active Start: August 22, 2024 Dr. Devin Bates MD Other Provider Active Start: August 22, 2024 Dr. Scott Blandon MD Other Provider Active Star t: August 22, 2024 Dr. Lupillo Porras , Other Provider Active Start : August 22, 2024 Dr. Robert Fitch MD Other Provider Active Sta rt: August 22, 2024 Dr. Ewdin Espinal MD Other Provider Active St art: August 22, 2024 Dr. Kt Garcia MD Other Provider Active S tart: August 22, 2024 Dr. Antonia Parsons MD Other Provider Active Start: August 22, 2024 Dr. Jose Johnson MD Other Provider Active Start : August 22, 2024 Dr. Alok Germain MD Other Provider Active Start: August 22, 2024 Dr. William Leon MD Other Provider Active Start : August 22, 2024 Dr. Sanjuana Wasserman MD Other Provider Active Star t: August 22, 2024 Dr. Tomer Hawkins MD Other Provider Active Sta rt: August 22, 2024 Dr. Kassi Hamilton MD Other Provider Active Sta rt: August 22, 2024 Dr. Dominic Hamilton MD Other Provider Active Star t: August 22, 2024 Dr. Beltran Dubois MD Other Provider Active St art: August 22, 2024 Dr. Jj Lutz MD Other Provider Active Star t: August 22, 2024 Dr. Winston Steel , Other Provider Active St art: August 22, 2024 Dr. Yazan Cortés MD Other Provider Active Start: August 22, 2024 Dr. Allen Dunham MD Other Provider Active St art: August 22, 2024 Dr. Braulio Mitchell , DO Other Provider Active Start: August 22, 2024 Dr. Cb Amor MD Other Provider Active Star t: August 22, 2024 Dr. Yann Ji MD Other Provider Active Sta rt: August 22, 2024 Dr. Amauri Hermosillo , DO Other Provider Active St art: August 22, 2024 Team Status: Active Member Role/Relationship Status Dates Dr. Ashley Dickey MD Primary Care Provider Active Start: August 23, 2024 Dr. Jose Olvera MD Emergency Provider Active Sta rt: August 23, 2024 Dr. Robert Huizar , DO Admit Provider Active Start: August 23, 2024 Dr. Robert Huizar , DO Other Provider Active Start: August 23, 2024 Dr. Amauri Hermosillo , DO Other Provider Active St art: August 23, 2024 Dr. Redd Laughlin DO Attending Provider Active Start: August 23, 2024 Dr. Redd Laughlin , Other Provider Active Start: August 23, 2024 Dr. Marciano Guerin MD Other Provider Active Sta rt: August 23, 2024 Dr. Laci Jackson MD Other Provider Active Start: August 23, 2024 Dr. Jonnathan Campuzano MD Other Provider Active Start: August 23, 2024 Dr. Devin Bates MD Other Provider Active Start: August 23, 2024 Dr. Scott Blandon MD Other Provider Active Star t: August 23, 2024 Dr. Lupillo Porras DO Other Provider Active Start : August 23, 2024 Dr. Robert Fitch MD Other Provider Active Sta rt: August 23, 2024 Dr. Edwin Espinal MD Other Provider Active St art: August 23, 2024 Dr. Kt Garcia MD Other Provider Active S tart: August 23, 2024 Dr. Antonia Parsons MD Other Provider Active Start: August 23, 2024 Dr. Jose Johnson MD Other Provider Active Start : August 23, 2024 Dr. Alok Germain MD Other Provider Active Start: August 23, 2024 Dr. William Leon MD Other Provider Active Start : August 23, 2024 Dr. Sanjuana Wasserman MD Other Provider Active Star t: August 23, 2024 Dr. Tomer Hawkins MD Other Provider Active Sta rt: August 23, 2024 Dr. Kassi Hamilton MD Other Provider Active Sta rt: August 23, 2024 Dr. Dominic Hamilton MD Other Provider Active Star t: August 23, 2024 Dr. Beltran Dubois MD Other Provider Active St art: August 23, 2024 Dr. Jj Lutz MD Other Provider Active Star t: August 23, 2024 Dr. Winston Steel , DO Other Provider Active St art: August 23, 2024 Dr. Yazan Cortés MD Other Provider Active Start: August 23, 2024 Dr. Allen Dunham MD Other Provider Active St art: August 23, 2024 Dr. Braulio Mitchell , DO Other Provider Active Start: August 23, 2024 Dr. Cb Amor MD Other Provider Active Star t: August 23, 2024 Dr. Yann Ji MD Other Provider Active Sta rt: August 23, 2024 Team Status: Active Member Role/Relationship Status Dates Dr. Ashley Dickey MD Primary Care Provider Active Start: August 23, 2024 Dr. Jose Olvera MD Emergency Provider Active Sta rt: August 23, 2024 Dr. Robert Huizar , DO Admit Provider Active Start: August 23, 2024 Dr. Robert Huizar , DO Other Provider Active Start: August 23, 2024 Dr. Amauri Hermosillo , DO Other Provider Active St art: August 23, 2024 Dr. Redd Laughlin , DO Other Provider Active Start: August 23, 2024 Dr. Marciano Guerin MD Other Provider Active Sta rt: August 23, 2024 Dr. Laci Jackson MD Other Provider Active Start: August 23, 2024 Dr. Jonnathan Campuzano MD Other Provider Active Start: August 23, 2024 Dr. Devin Bates MD Other Provider Active Start: August 23, 2024 Dr. Scott Blandon MD Other Provider Active Star t: August 23, 2024 Dr. Lupillo Porras , Other Provider Active Start : August 23, 2024 Dr. Robert Fitch MD Other Provider Active Sta rt: August 23, 2024 Dr. Edwin Espinal MD Other Provider Active St art: August 23, 2024 Dr. Kt Garcia MD Other Provider Active S tart: August 23, 2024 Dr. Antonia Parsons MD Other Provider Active Start: August 23, 2024 Dr. Jose Johnson MD Other Provider Active Start : August 23, 2024 Dr. Alok Germain MD Other Provider Active Start: August 23, 2024 Dr. William Leon MD Other Provider Active Start : August 23, 2024 Dr. Sanjuana Wasserman MD Other Provider Active Star t: August 23, 2024 Dr. Tomer Hawkins MD Other Provider Active Sta rt: August 23, 2024 Dr. Kassi Hamilton MD Other Provider Active Sta rt: August 23, 2024 Dr. Dominic Hamilton MD Other Provider Active Star t: August 23, 2024 Dr. Beltran Dubois MD Other Provider Active St art: August 23, 2024 Dr. Jj Lutz MD Other Provider Active Star t: August 23, 2024 Dr. Winston Steel DO Other Provider Active St art: August 23, 2024 Dr. Yazan Cortés MD Other Provider Active Start: August 23, 2024 Dr. Allen Dunham MD Other Provider Active St art: August 23, 2024 Dr. Braulio Mitchell DO Other Provider Active Start: August 23, 2024 Dr. Cb Amor MD Other Provider Active Star t: August 23, 2024 Dr. Yann Ji MD Other Provider Active Sta rt: August 23, 2024 Dr. Hugo Pacheco DO Attending Provider Active Start: August 23, 2024 Team Status: Active Member Role/Relationship Status Dates Dr. Ashley Dickey MD Primary Care Provider Active Start: August 24, 2024 Dr. Leroy Hills MD Attending Provider Active S tart: August 24, 2024 Team Status: Active Member Role/Relationship Status Dates Dr. Ashley Dickey MD Primary Care Provider Active Start: August 24, 2024 Dr. Jose Olvera MD Emergency Provider Active Sta rt: August 24, 2024 Dr. Robert Huizar DO Admit Provider Active Start: August 24, 2024 Dr. Robert Huizar DO Other Provider Active Start: August 24, 2024 Dr. Amauri Hermosillo , Other Provider Active St art: August 24, 2024 Dr. Redd Laughlin , Attending Provider Active Start: August 24, 2024 Dr. Redd Laughlin , Other Provider Active Start: August 24, 2024 Dr. Marciano Guerin MD Other Provider Active Sta rt: August 24, 2024 Dr. Laci Jackson MD Other Provider Active Start: August 24, 2024 Dr. Jonnathan Campuzano MD Other Provider Active Start: August 24, 2024 Dr. Devin Bates MD Other Provider Active Start: August 24, 2024 Dr. Scott Blandon MD Other Provider Active Star t: August 24, 2024 Dr. Lupillo Porras , Other Provider Active Start : August 24, 2024 Dr. Robert Fitch MD Other Provider Active Sta rt: August 24, 2024 Dr. Edwin Espinal MD Other Provider Active St art: August 24, 2024 Dr. Kt Garcia MD Other Provider Active S tart: August 24, 2024 Dr. Antonia Parsons MD Other Provider Active Start: August 24, 2024 Dr. Jose Johnson MD Other Provider Active Start : August 24, 2024 Dr. Alok Germain MD Other Provider Active Start: August 24, 2024 Dr. William Leon MD Other Provider Active Start : August 24, 2024 Dr. Sanjuana Wasserman MD Other Provider Active Star t: August 24, 2024 Dr. Tomer Hawkins MD Other Provider Active Sta rt: August 24, 2024 Dr. Kassi Hamilton MD Other Provider Active Sta rt: August 24, 2024 Dr. Dominic Hamilton MD Other Provider Active Star t: August 24, 2024 Dr. Beltran Dubois MD Other Provider Active St art: August 24, 2024 Dr. Jj Lutz MD Other Provider Active Star t: August 24, 2024 Dr. Winston Steel DO Other Provider Active St art: August 24, 2024 Dr. Yazan Cortés MD Other Provider Active Start: August 24, 2024 Dr. Allen Dunham MD Other Provider Active St art: August 24, 2024 Dr. Braulio Mitchell , Other Provider Active Start: August 24, 2024 Dr. Cb Amor MD Other Provider Active Star t: August 24, 2024 Dr. Yann Ji MD Other Provider Active Sta rt: August 24, 2024 Team Status: Active Member Role/Relationship Status Dates Dr. Ashley Dickey MD Primary Care Provider Active Start: August 24, 2024 Dr. Jose Olvera MD Emergency Provider Active Sta rt: August 24, 2024 Dr. Robert Huizar , DO Admit Provider Active Start: August 24, 2024 Dr. Robert Huizar , DO Other Provider Active Start: August 24, 2024 Dr. Amauri Hermosillo , Other Provider Active St art: August 24, 2024 Dr. Redd Laughlin , Other Provider Active Start: August 24, 2024 Dr. Marciano Guerin MD Other Provider Active Sta rt: August 24, 2024 Dr. Laci Jackson MD Other Provider Active Start: August 24, 2024 Dr. Jonnathan Campuzano MD Other Provider Active Start: August 24, 2024 Dr. Devin Bates MD Other Provider Active Start: August 24, 2024 Dr. Scott Blandon MD Other Provider Active Star t: August 24, 2024 Dr. Lupillo Porras DO Other Provider Active Start : August 24, 2024 Dr. Robert Fitch MD Other Provider Active Sta rt: August 24, 2024 Dr. Edwin Espinal MD Other Provider Active St art: August 24, 2024 Dr. Kt Garcia MD Other Provider Active S tart: August 24, 2024 Dr. Antonia Parsons MD Other Provider Active Start: August 24, 2024 Dr. Jose Johnson MD Other Provider Active Start : August 24, 2024 Dr. Alok Germain MD Other Provider Active Start: August 24, 2024 Dr. William Leon MD Other Provider Active Start : August 24, 2024 Dr. Sanjuana Wasserman MD Other Provider Active Star t: August 24, 2024 Dr. Tomer Hawkins MD Other Provider Active Sta rt: August 24, 2024 Dr. Kassi Hamilton MD Other Provider Active Sta rt: August 24, 2024 Dr. Dominic Hamilton MD Other Provider Active Star t: August 24, 2024 Dr. Beltran Dubois MD Other Provider Active St art: August 24, 2024 Dr. Jj Lutz MD Other Provider Active Star t: August 24, 2024 Dr. Winston Steel , Other Provider Active St art: August 24, 2024 Dr. Yazan Cortés MD Other Provider Active Start: August 24, 2024 Dr. Allen Dunham MD Other Provider Active St art: August 24, 2024 Dr. Braulio Mitchell , DO Other Provider Active Start: August 24, 2024 Dr. Cb Amor MD Other Provider Active Star t: August 24, 2024 Dr. Yann Ji MD Other Provider Active Sta rt: August 24, 2024 Dr. Hugo Pacheco , Attending Provider Active Start: August 24, 2024 Team Status: Active Member Role/Relationship Status Dates Dr. Ashley Dickey MD Primary Care Provider Active Start: August 25, 2024 Dr. Jose Olvera MD Emergency Provider Active Sta rt: August 25, 2024 Dr. Robert Huizar , DO Admit Provider Active Start: August 25, 2024 Dr. Robert Huizar DO Other Provider Active Start: August 25, 2024 Dr. Amauri Hermosillo DO Other Provider Active St art: August 25, 2024 Dr. Redd Laughlin , Other Provider Active Start: August 25, 2024 Dr. Marciano Guerin MD Other Provider Active Sta rt: August 25, 2024 Dr. Laci Jackson MD Other Provider Active Start: August 25, 2024 Dr. Jonnathan Campuzano MD Other Provider Active Start: August 25, 2024 Dr. Devin Bates MD Other Provider Active Start: August 25, 2024 Dr. Scott Blandon MD Other Provider Active Star t: August 25, 2024 Dr. Lupillo Porras DO Other Provider Active Start : August 25, 2024 Dr. Robert Fitch MD Other Provider Active Sta rt: August 25, 2024 Dr. Edwin Espinal MD Other Provider Active St art: August 25, 2024 Dr. Kt Garcia MD Other Provider Active S tart: August 25, 2024 Dr. Antonia Parsons MD Other Provider Active Start: August 25, 2024 Dr. Jose Johnson MD Other Provider Active Start : August 25, 2024 Dr. Alok Germain MD Other Provider Active Start: August 25, 2024 Dr. William Leon MD Other Provider Active Start : August 25, 2024 Dr. Sanjuana Wasserman MD Other Provider Active Star t: August 25, 2024 Dr. Tomer Hawkins MD Other Provider Active Sta rt: August 25, 2024 Dr. Kassi Hamilton MD Other Provider Active Sta rt: August 25, 2024 Dr. Dominic Hamilton MD Other Provider Active Star t: August 25, 2024 Dr. Beltran Dubois MD Other Provider Active St art: August 25, 2024 Dr. Jj Lutz MD Other Provider Active Star t: August 25, 2024 Dr. Winston Steel , DO Other Provider Active St art: August 25, 2024 Dr. Yazan Cortés MD Other Provider Active Start: August 25, 2024 Dr. Allen Dunham MD Other Provider Active St art: August 25, 2024 Dr. Braulio Mitchell , DO Other Provider Active Start: August 25, 2024 Dr. Cb Amor MD Other Provider Active Star t: August 25, 2024 Dr. Yann Ji MD Other Provider Active Sta rt: August 25, 2024 Dr. Roxanne More MD Attending Provider Active Start: August 25, 2024 Team Status: Active Member Role/Relationship Status Dates Dr. Ashley Dickey MD Primary Care Provider Active Start: August 26, 2024 Dr. Jose Olvera MD Emergency Provider Active Sta rt: August 26, 2024 Dr. Robert Huizar , DO Admit Provider Active Start: August 26, 2024 Dr. Robert Huizar , DO Other Provider Active Start: August 26, 2024 Dr. Amauri Hermosillo , DO Other Provider Active St art: August 26, 2024 Dr. Redd Laughlin , DO Other Provider Active Start: August 26, 2024 Dr. Marciano Guerin MD Other Provider Active Sta rt: August 26, 2024 Dr. Laci Jackson MD Other Provider Active Start: August 26, 2024 Dr. Jonnathan Campuzano MD Other Provider Active Start: August 26, 2024 Dr. Devin Bates MD Other Provider Active Start: August 26, 2024 Dr. Scott Blandon MD Other Provider Active Star t: August 26, 2024 Dr. Lupillo Porras , Other Provider Active Start : August 26, 2024 Dr. Robert Fitch MD Other Provider Active Sta rt: August 26, 2024 Dr. Edwin Espinal MD Other Provider Active St art: August 26, 2024 Dr. Kt Garcia MD Other Provider Active S tart: August 26, 2024 Dr. Antonia Parsons MD Other Provider Active Start: August 26, 2024 Dr. Jose Johnson MD Other Provider Active Start : August 26, 2024 Dr. Alok Germain MD Other Provider Active Start: August 26, 2024 Dr. William Leon MD Other Provider Active Start : August 26, 2024 Dr. Sanjuana Wasserman MD Other Provider Active Star t: August 26, 2024 Dr. Tomer Hawkins MD Other Provider Active Sta rt: August 26, 2024 Dr. Kassi Hamilton MD Other Provider Active Sta rt: August 26, 2024 Dr. Dominic Hamilton MD Other Provider Active Star t: August 26, 2024 Dr. Beltran Dubois MD Other Provider Active St art: August 26, 2024 Dr. Jj Lutz MD Other Provider Active Star t: August 26, 2024 Dr. Winston Steel DO Other Provider Active St art: August 26, 2024 Dr. Yazan Cortés MD Other Provider Active Start: August 26, 2024 Dr. Allen Dunham MD Other Provider Active St art: August 26, 2024 Dr. Braulio Mitchell DO Other Provider Active Start: August 26, 2024 Dr. Cb Amor MD Other Provider Active Star t: August 26, 2024 Dr. Yann Ji MD Other Provider Active Sta rt: August 26, 2024 Dr. Roxanne More MD Attending Provider Active Start: August 26, 2024 Team Status: Active Member Role/Relationship Status Dates Dr. Ashley Dickey MD Primary Care Provider Active Start: August 27, 2024 Dr. Jose Olvera MD Emergency Provider Active Sta rt: August 27, 2024 Dr. Robert Huizar , DO Admit Provider Active Start: August 27, 2024 Dr. Robert Huizar DO Other Provider Active Start: August 27, 2024 Dr. Amauri Hermosillo DO Other Provider Active St art: August 27, 2024 Dr. Marciano Guerin MD Attending Provider Active Start: August 27, 2024 Dr. Marciano Guerin MD Other Provider Active Sta rt: August 27, 2024 Dr. Laci Jackson MD Other Provider Active Start: August 27, 2024 Dr. Jonnathan Campuzano MD Other Provider Active Start: August 27, 2024 Dr. Devin Bates MD Other Provider Active Start: August 27, 2024 Dr. Scott Blandon MD Other Provider Active Star t: August 27, 2024 Dr. Lupillo Porras DO Other Provider Active Start : August 27, 2024 Dr. Robert Fitch MD Other Provider Active Sta rt: August 27, 2024 Dr. Edwin Espinal MD Other Provider Active St art: August 27, 2024 Dr. Kt Garcia MD Other Provider Active S tart: August 27, 2024 Dr. Antonia Parsons MD Other Provider Active Start: August 27, 2024 Dr. Jose Johnson MD Other Provider Active Start : August 27, 2024 Dr. Alok Germain MD Other Provider Active Start: August 27, 2024 Dr. William Leon MD Other Provider Active Start : August 27, 2024 Dr. Sanjuana Wassreman MD Other Provider Active Star t: August 27, 2024 Dr. Tomer Hawkins MD Other Provider Active Sta rt: August 27, 2024 Dr. Kassi Hamilton MD Other Provider Active Sta rt: August 27, 2024 Dr. Dominic Hamilton MD Other Provider Active Star t: August 27, 2024 Dr. Beltran Dubois MD Other Provider Active St art: August 27, 2024 Dr. Jj Lutz MD Other Provider Active Star t: August 27, 2024 Dr. Winston Steel DO Other Provider Active St art: August 27, 2024 Dr. Yazan Cortés MD Other Provider Active Start: August 27, 2024 Dr. Allen Dunham MD Other Provider Active St art: August 27, 2024 Dr. Braulio Mitchell DO Other Provider Active Start: August 27, 2024 Dr. Cb Amor MD Other Provider Active Star t: August 27, 2024 Dr. Yann Ji MD Other Provider Active Sta rt: August 27, 2024 Dr. Redd Laughlin DO Other Provider Active Start: August 27, 2024 Team Status: Active Member Role/Relationship Status Dates Dr. Ashley Dickey MD Primary Care Provider Active Start: August 19, 2024 Dr. Jose Olvera MD Emergency Provider Active Sta rt: August 19, 2024 Dr. Robert Huizar DO Admit Provider Active Start: August 19, 2024 Dr. Robert Huizar DO Other Provider Active Start: August 19, 2024 Dr. Jonnathan Campuzano MD Other Provider Active Start: August 19, 2024 Dr. Devin Bates MD Other Provider Active Start: August 19, 2024 Dr. Scott Blandon MD Other Provider Active Star t: August 19, 2024 Dr. Lupillo Porras DO Attending Provider Active S tart: August 19, 2024 Dr. Lupillo Porras DO Other Provider Active Start : August 19, 2024 Dr. Robert Fitch MD Other Provider Active Sta rt: August 19, 2024 Dr. Edwin Espinal MD Other Provider Active St art: August 19, 2024 Dr. Kt Garcia MD Other Provider Active S tart: August 19, 2024 Dr. Antonia Parsons MD Other Provider Active Start: August 19, 2024 Dr. Jose Johnson MD Other Provider Active Start : August 19, 2024 Dr. Alok Germain MD Other Provider Active Start: August 19, 2024 Dr. William Leon MD Other Provider Active Start : August 19, 2024 Dr. Sanjuana Wasserman MD Other Provider Active Star t: August 19, 2024 Dr. Tomer Hawkins MD Other Provider Active Sta rt: August 19, 2024 Dr. Kassi Hamilton MD Other Provider Active Sta rt: August 19, 2024 Dr. Dominic Hamilton MD Other Provider Active Star t: August 19, 2024 Dr. Beltran Dubois MD Other Provider Active St art: August 19, 2024 Dr. Jj Lutz MD Other Provider Active Star t: August 19, 2024 Dr. Winston Steel DO Other Provider Active St art: August 19, 2024 Dr. Yazan Cortés MD Other Provider Active Start: August 19, 2024 Dr. Allen Dunham MD Other Provider Active St art: August 19, 2024 Dr. Braulio Mitchell DO Other Provider Active Start: August 19, 2024 Dr. Cb Amor MD Other Provider Active Star t: August 19, 2024 Dr. Yann Ji MD Other Provider Active Sta rt: August 19, 2024 Dr. Amauri Hermosillo DO Other Provider Active St art: August 19, 2024 Dr. Marciano Guerin MD Referring Provider Active Start: August 19, 2024 Dr. Marciano Guerin MD Other Provider Active Sta rt: August 19, 2024 Team Status: Active Member Role/Relationship Status Dates Dr. Ashley Dickey MD Primary Care Provider Active Start: August 19, 2024 Dr. Jose Olvera MD Emergency Provider Active Sta rt: August 19, 2024 Dr. Robert Huizar DO Admit Provider Active Start: August 19, 2024 Dr. Robert Huizar DO Other Provider Active Start: August 19, 2024 Dr. Jonnathan Campuzano MD Other Provider Active Start: August 19, 2024 Dr. Devin Bates MD Other Provider Active Start: August 19, 2024 Dr. Scott Blandon MD Other Provider Active Star t: August 19, 2024 Dr. Lupillo Porras DO Other Provider Active Start : August 19, 2024 Dr. Robert Fitch MD Other Provider Active Sta rt: August 19, 2024 Dr. Edwin Espinal MD Other Provider Active St art: August 19, 2024 Dr. Kt Garcia MD Other Provider Active S tart: August 19, 2024 Dr. Antonia Parsons MD Other Provider Active Start: August 19, 2024 Dr. Jose Johnson MD Other Provider Active Start : August 19, 2024 Dr. Alok Germain MD Other Provider Active Start: August 19, 2024 Dr. William Leon MD Other Provider Active Start : August 19, 2024 Dr. Sanjuana Wasserman MD Other Provider Active Star t: August 19, 2024 Dr. Tomer Hawkins MD Other Provider Active Sta rt: August 19, 2024 Dr. Kassi Hamilton MD Other Provider Active Sta rt: August 19, 2024 Dr. Dominic Hamilton MD Other Provider Active Star t: August 19, 2024 Dr. Beltran Dubois MD Other Provider Active St art: August 19, 2024 Dr. Jj Lutz MD Other Provider Active Star t: August 19, 2024 Dr. Winston Steel DO Other Provider Active St art: August 19, 2024 Dr. Yazan Cortés MD Other Provider Active Start: August 19, 2024 Dr. Allen Dunham MD Other Provider Active St art: August 19, 2024 Dr. Braulio Mitchell DO Other Provider Active Start: August 19, 2024 Dr. Cb Amor MD Other Provider Active Star t: August 19, 2024 Dr. Yann Ji MD Other Provider Active Sta rt: August 19, 2024 Dr. Amauri Hermosillo DO Attending Provider Active Start: August 19, 2024 Dr. Amauri Hermosillo DO Other Provider Active St art: August 19, 2024 Dr. Marciano Guerin MD Referring Provider Active Start: August 19, 2024 Dr. Marciano Guerin MD Other Provider Active Sta rt: August 19, 2024 Team Status: Active Member Role/Relationship Status Dates Dr. Ashley Dickey MD Primary Care Provider Active Start: August 20, 2024 Dr. Jose Olvera MD Emergency Provider Active Sta rt: August 20, 2024 Dr. Robert Huizar DO Admit Provider Active Start: August 20, 2024 Dr. Robert Huizar DO Other Provider Active Start: August 20, 2024 Dr. Jonnathan Campuzano MD Other Provider Active Start: August 20, 2024 Dr. Devin Bates MD Other Provider Active Start: August 20, 2024 Dr. Scott Blandon MD Other Provider Active Star t: August 20, 2024 Dr. Lupillo Porras DO Attending Provider Active S tart: August 20, 2024 Dr. Lupillo Porras , Other Provider Active Start : August 20, 2024 Dr. Robert Fitch MD Other Provider Active Sta rt: August 20, 2024 Dr. Edwin Espinal MD Other Provider Active St art: August 20, 2024 Dr. Kt Garcia MD Other Provider Active S tart: August 20, 2024 Dr. Antonia Parsons MD Other Provider Active Start: August 20, 2024 Dr. Jose Johnson MD Other Provider Active Start : August 20, 2024 Dr. Alok Germain MD Other Provider Active Start: August 20, 2024 Dr. William Leon MD Other Provider Active Start : August 20, 2024 Dr. Sanjuana Wasserman MD Other Provider Active Star t: August 20, 2024 Dr. Tomer Hawkins MD Other Provider Active Sta rt: August 20, 2024 Dr. Kassi Hamilton MD Other Provider Active Sta rt: August 20, 2024 Dr. Dominic Hamilton MD Other Provider Active Star t: August 20, 2024 Dr. Beltran Dubois MD Other Provider Active St art: August 20, 2024 Dr. Jj Lutz MD Other Provider Active Star t: August 20, 2024 Dr. Winston Steel , Other Provider Active St art: August 20, 2024 Dr. Yazan Cortés MD Other Provider Active Start: August 20, 2024 Dr. Allen Dunham MD Other Provider Active St art: August 20, 2024 Dr. Braulio Mitchell , Other Provider Active Start: August 20, 2024 Dr. Cb Amor MD Other Provider Active Star t: August 20, 2024 Dr. Yann Ji MD Other Provider Active Sta rt: August 20, 2024 Dr. Amauri Hermosillo , Other Provider Active St art: August 20, 2024 Dr. Marciano Guerin MD Referring Provider Active Start: August 20, 2024 Dr. Marciano Guerin MD Other Provider Active Sta rt: August 20, 2024 Team Status: Active Member Role/Relationship Status Dates Dr. Ashley Dickey MD Primary Care Provider Active Start: August 23, 2024 Dr. Jose Olvera MD Emergency Provider Active Sta rt: August 23, 2024 Dr. Robert Huizar , DO Admit Provider Active Start: August 23, 2024 Dr. Robert Huizar , DO Other Provider Active Start: August 23, 2024 Dr. Amauri Hermosillo , DO Other Provider Active St art: August 23, 2024 Dr. Redd Laughlin , DO Other Provider Active Start: August 23, 2024 Dr. Marciano Guerin MD Referring Provider Active Start: August 23, 2024 Dr. Marciano Guerin MD Other Provider Active Sta rt: August 23, 2024 Dr. Laci Jackson MD Other Provider Active Start: August 23, 2024 Dr. Jonnathan Campuzano MD Other Provider Active Start: August 23, 2024 Dr. Devin Bates MD Other Provider Active Start: August 23, 2024 Dr. Scott Blandon MD Other Provider Active Star t: August 23, 2024 Dr. Lupillo Porras , Other Provider Active Start : August 23, 2024 Dr. Robert Fitch MD Other Provider Active Sta rt: August 23, 2024 Dr. Edwin Espinal MD Other Provider Active St art: August 23, 2024 Dr. Kt Garcia MD Other Provider Active S tart: August 23, 2024 Dr. Antonia Parsons MD Other Provider Active Start: August 23, 2024 Dr. Jose Johnson MD Other Provider Active Start : August 23, 2024 Dr. Alok Germain MD Other Provider Active Start: August 23, 2024 Dr. William Leon MD Other Provider Active Start : August 23, 2024 Dr. Sanjuana Wasserman MD Other Provider Active Star t: August 23, 2024 Dr. Tomer Hawkins MD Other Provider Active Sta rt: August 23, 2024 Dr. Kassi Hamilton MD Other Provider Active Sta rt: August 23, 2024 Dr. Dominic Hamilton MD Other Provider Active Star t: August 23, 2024 Dr. Beltran Dubois MD Other Provider Active St art: August 23, 2024 Dr. Jj Lutz MD Other Provider Active Star t: August 23, 2024 Dr. Winston Steel , DO Other Provider Active St art: August 23, 2024 Dr. Yazan Cortés MD Other Provider Active Start: August 23, 2024 Dr. Allen Dunham MD Other Provider Active St art: August 23, 2024 Dr. Braulio Mitchell , Other Provider Active Start: August 23, 2024 Dr. Cb Amor MD Other Provider Active Star t: August 23, 2024 Dr. Yann Ji MD Other Provider Active Sta rt: August 23, 2024 Dr. Hugo Pacheco , Attending Provider Active Start: August 23, 2024 Team Status: Active Member Role/Relationship Status Dates Dr. Ashley Dickey MD Primary Care Provider Active Start: August 25, 2024 Dr. Jose Olvera MD Emergency Provider Active Sta rt: August 25, 2024 Dr. Robert Huizar DO Admit Provider Active Start: August 25, 2024 Dr. Robert Huizar , Other Provider Active Start: August 25, 2024 Dr. Amauri Hermosillo , Other Provider Active St art: August 25, 2024 Dr. Redd Laughlin DO Attending Provider Active Start: August 25, 2024 Dr. Redd Laughlin , Other Provider Active Start: August 25, 2024 Dr. Marciano Guerin MD Other Provider Active Sta rt: August 25, 2024 Dr. Laci Jackson MD Other Provider Active Start: August 25, 2024 Dr. Jonnathan Campuzano MD Other Provider Active Start: August 25, 2024 Dr. Devin Bates MD Other Provider Active Start: August 25, 2024 Dr. Scott Blandon MD Other Provider Active Star t: August 25, 2024 Dr. Lupillo Porras , Other Provider Active Start : August 25, 2024 Dr. Robert Fitch MD Other Provider Active Sta rt: August 25, 2024 Dr. Edwin Espinal MD Other Provider Active St art: August 25, 2024 Dr. Kt Garcia MD Other Provider Active S tart: August 25, 2024 Dr. Antonia Parsons MD Other Provider Active Start: August 25, 2024 Dr. Jose Johnson MD Other Provider Active Start : August 25, 2024 Dr. Alok Germain MD Other Provider Active Start: August 25, 2024 Dr. William Leon MD Other Provider Active Start : August 25, 2024 Dr. Sanjuana Wasserman MD Other Provider Active Star t: August 25, 2024 Dr. Tomer Hawkins MD Other Provider Active Sta rt: August 25, 2024 Dr. Kassi Hamilton MD Other Provider Active Sta rt: August 25, 2024 Dr. Dominic Hamilton MD Other Provider Active Star t: August 25, 2024 Dr. Beltran Dubois MD Other Provider Active St art: August 25, 2024 Dr. Jj Lutz MD Other Provider Active Star t: August 25, 2024 Dr. Winston Steel , DO Other Provider Active St art: August 25, 2024 Dr. Yazan Cortés MD Other Provider Active Start: August 25, 2024 Dr. Allen Dunham MD Other Provider Active St art: August 25, 2024 Dr. Braulio Mitchell , Other Provider Active Start: August 25, 2024 Dr. Cb Amor MD Other Provider Active Star t: August 25, 2024 Dr. Yann Ji MD Other Provider Active Sta rt: August 25, 2024 Team Status: Active Member Role/Relationship Status Dates Dr. Ashley Dickey MD Primary Care Provider Active Start: August 26, 2024 Dr. Jose Olvera MD Emergency Provider Active Sta rt: August 26, 2024 Dr. Robert Huizar , DO Admit Provider Active Start: August 26, 2024 Dr. Robert Huizar , DO Other Provider Active Start: August 26, 2024 Dr. Amauri Hermosillo , DO Other Provider Active St art: August 26, 2024 Dr. Redd Laughlin , DO Other Provider Active Start: August 26, 2024 Dr. Marciano Guerin MD Attending Provider Active Start: August 26, 2024 Dr. Marciano Guerin MD Other Provider Active Sta rt: August 26, 2024 Dr. Lcai Jackson MD Other Provider Active Start: August 26, 2024 Dr. Jonnathan Campuzano MD Other Provider Active Start: August 26, 2024 Dr. Devin Bates MD Other Provider Active Start: August 26, 2024 Dr. Scott Blandon MD Other Provider Active Star t: August 26, 2024 Dr. Lupillo Porras DO Other Provider Active Start : August 26, 2024 Dr. Robert Fitch MD Other Provider Active Sta rt: August 26, 2024 Dr. Edwin Espinal MD Other Provider Active St art: August 26, 2024 Dr. Kt Garcia MD Other Provider Active S tart: August 26, 2024 Dr. Antonia Parsons MD Other Provider Active Start: August 26, 2024 Dr. Jose Johnson MD Other Provider Active Start : August 26, 2024 Dr. Alok Germain MD Other Provider Active Start: August 26, 2024 Dr. William Leon MD Other Provider Active Start : August 26, 2024 Dr. Sanjuana Wasserman MD Other Provider Active Star t: August 26, 2024 Dr. Tomer Hawkins MD Other Provider Active Sta rt: August 26, 2024 Dr. Kassi Hamilton MD Other Provider Active Sta rt: August 26, 2024 Dr. Dominic Hamilton MD Other Provider Active Star t: August 26, 2024 Dr. Beltran Dubois MD Other Provider Active St art: August 26, 2024 Dr. Jj Lutz MD Other Provider Active Star t: August 26, 2024 Dr. Winston Steel DO Other Provider Active St art: August 26, 2024 Dr. Yazan Cortés MD Other Provider Active Start: August 26, 2024 Dr. Allen Dunham MD Other Provider Active St art: August 26, 2024 Dr. Braulio Mitchell DO Other Provider Active Start: August 26, 2024 Dr. Cb Amor MD Other Provider Active Star t: August 26, 2024 Dr. Yann Ji MD Other Provider Active Sta rt: August 26, 2024 Team Status: Inactive Member Role/Relationship Status Dates Dr. Ashley Dickey MD Primary Care Provider Active Start: September 01, 2024 End: September 01, 2024 Dr. Ashley Dickey MD Attending Provider Active Start: September 01, 2024 End: September 01, 2024 Team Status: Active Member Role/Relationship Status Dates Dr. Ashley Dickey MD Primary Care Provider Active Start: September 08, 2024 Dr. Ashley Dickey MD Referring Provider Active Start: September 08, 2024 BREONNA Wood Attending Provider Active Start: September 08, 2024 Team Status: Inactive Member Role/Relationship Status Dates Dr. Ashley Dickey MD Primary Care Provider Active Start: September 08, 2024 End: September 08, 2024 Dr. Leroy Hills MD Attending Provider Active S tart: September 08, 2024 End: September 08, 2024 Team Status: Inactive Member Role/Relationship Status Dates Dr. Ashley Dickey MD Primary Care Provider Active Start: September 08, 2024 End: September 08, 2024 Dr. Ashley Dickey MD Referring Provider Active Start: September 08, 2024 End: September 08, 2024 BREONNA Wood Attending Provider Active Start: September 08, 2024 End: September 08, 2024 FOR RECORDS PERTAINING TO PATIENTS WHO ARE [...] BE BASED ON THE PRIMARY CLINICAL RECORDS. [facility] [employer] provides no warranty or guarantee of the accuracy or completeness of information in this document.
[2024-09-09 23:02] LABS: Anion Gap 9 (5-15); BUN 16 mg/dL (4-19); BUN/Creat Ratio 18.1 RATIO (10-20); Calcium,Total 8.6 mg/dL (7.6-11.0); Carbon Dioxide 21.5 mmol/L (21.0-32.0); Chloride 113 mmol/L (98-108); Glucose 96 mg/dL (70-99); Potassium 3.6 mmol/L (3.3-5.1)
[2024-09-09 23:03] LABS: Vancomycin, Trough Level 18.0 ug/mL (5.0-15.0)
[2024-09-09 23:16] LABS: Hematocrit 24.9 % (40-54); Hemoglobin 7.7 g/dL (13.0-16.5); Immature Granulocytes Count 0.010 X10^3/uL (0.0-0.0); Mean Corp Hgb Conc 30.9 g/dL (32-36); Mean Corpuscular Volume 97.6 fL (80-94); Mean Platelet Vol. 10.1 fl (6.2-12.0); NRBC Flagged by Analyzer 0 % (0-5); POSITIVE DIFFERENTIAL YES; Platelet Count 111 K/mm3 (150-450); RBC Distribution Width CV 13.4 % (11.6-14.6); RBC Distribution Width SD 47.8 fl (35.1-43.9); Red Blood Count 2.55 M/mm3 (4.6-6.2); White Blood Count 2.8 K/mm3 (4.4-11.0)
[2024-09-09 23:18] LABS: Differential Indicated SCAN CRITERIA MET
[2024-09-10 01:15] LABS: Differential Comment SCANNED
== END 2024-09-09 23:59 | disposition home or self-care (01) ==
PROVIDERS: PCP Family Medicine; Referring Provider Family Medicine; Visit Provider Family Medicine
DX: Z00.00 Encounter for general adult medical examination without abnormal findings (principal)
CPT/HCPCS: 80048; 80202; 85025

== ENCOUNTER → 2024-09-16 | Outpatient (CLI) | payer MEDICAID, SELFPAY ==
--- OUTSIDE RECORDS SUMMARY | 2024-09-16 22:20 | XMS RPT_ITS | CCD ---
Author Organization [facility] Care Team Providers Care Emergency Physician Name Role Phone BRANDEN SHAH (DI) Unavailable Unavailable BRANDEN SHAH (DI) Unavailable Unavailable BRANDEN SHAH (DI) Unavailable Unavailable ASHLEY DICKEY Unavailable Unavailab Ashley Peters Unavailable MD NARINDER CHRISTENSEN Attending Unavailabl e MD NARINDER CHRISTENSEN Referring Unavailabl e Sherrie, Dr. Ashley Dave Primary [facility] MD NARINDER Santana Attending Unavailabl e MD NARINDER CHRISTENSEN Referring Unavailabl e Sherrie, Dr. Ashley Mcdermotthen Primary [facility] Sarahva MD NARINDER Hidalgo Attending Unavailabl MD NARINDER Delacruz Referring Unavailabl Dr. [facility] NARINDER Santana Referring UnavailMD NARINDER Pearson Attending Unavailkasey Dickey, Dr. Ashley Dave [facility] Ashley Rodrigues MD Primary Care Provider Dr. Ashley Dickey Primary Care Provider [phone] Dr. Jose Olvera Emergency Provider Dr. Roxanne More Attending Provider [phone] Dr. Ashley Dickey Primary Care Provider Dr. [...] Other Provider Dr. Kt Garcia Other Provider [phone] Antonia Parsons Other Provider Dr. Jose Johnson Other Provider Dr. Sanjuana Wasserman Other Provider Dr. Tomer Hawkins Other Provider Unavailable Dr. Beltran Dubois Other Provider Dr. Jj Lutz Other Provider Dr. Cb Amor Other Provider Dr. Yann Ji Other Provider Dr. Scott Blandon Attending Provider [phone] NARINDER CHRISTENSEN Referring Unavailable ASHLEY DICKEY Primary Care Unavailab theresa Dickey MD, Ashley Dave Primary Care Provider NARINDER CHRISTENSEN Attending Unavailable ASHLEY DICKEY Primary Care Unavailab NARINDER Ledesma Attending Unavailable ASHLEY DICKEY TENZIN Primary Care Unavailab ASHLEY Peters Primary Care Unavailab Dr. Ashley Peters MD Primary Care Provider Dr. Jose Olvera MD Emergency Provider Huizar DO, Dr. Jones Admit Provider Unavail able Dr. Robert Huizar DO Attending Provider Unav ailable Dr. Ashley Dickey MD Primary Care Provider [phone] Dr. Jose Olvera MD Emergency Provider de [...] PAUL, Dr. Robert Salguero Other Provider [phone] Teddy PAUL, Dr. Pineda Other Provider [phone] Jose PAUL, Dr. Meraz Other Provider Issa PAUL, Dr. Knight Other Provider Alex PAUL, Dr. Garcia Other Provider [phone] Marcellus PAUL, Dr. Dickinson Other Provider [phone] Dr. William Leon MD Other Provider Lux PAUL, Dr. Wei Other Provider Shruthi PAUL, Dr. Jeff Other Provider Unavailabl nathan Hamilton MD, Dr. Solitario Other Provider [phone] Alfonso PAUL, Dr. Alfaro Other Provider Silvino PAUL, Dr. Gong Other Provider [phone] Bolivar PAUL, Dr. Gardner Other Provider Dr. Winston Steel DO Other Provider [phone] Yazan Cortés MD Other Provider [phone] Roly PAUL, Dr. Villa Other Provider [phone] Braulio Mitchell DO Other Provider Mt PAUL, Dr. Vivar Other Provider Garrison PAUL, Dr. Lerner Other Provider Dr. Redd Laughlin DO Other Provider [phone] Dr. Lupillo Porras DO Attending Provider [phone] Jaimee GAMING, Dr. Baugh Attending Provider Theresa PAUL, Dr. Dye Attending Provider Dr. Redd Laughlin DO Attending Provider Junior GAMING, Dr. Arias Attending Provider Jeana PAUL, Dr. Harper Attending Provider Argenis PAUL, Dr. Roxanne Christianson Attending Provider Huizar DO, Dr. Jones Other Provider Unavail able Jaimee GAMING, Dr. Baugh Other Provider [phone] Truong PAUL, Dr. Tariq Attending Provider Truong PAUL, Dr. Tariq Other Provider [phone] Renetta PAUL, Dr. Aguero Other Provider Tatianna PAUL, Dr. De Santiago Other Provider Jana PAUL, Dr. Beltran Other Provider Barber PAUL, Dr. Chavez Other Provider Dr. Lupillo Porras DO Other Provider Constantine PAUL, Dr. Robert Salguero Other Provider [phone] Teddy PAUL, Dr. Pineda Other Provider Jose PAUL, Dr. Meraz Other Provider Issa PAUL, Dr. Knight Other Provider [phone] Alex PAUL, Dr. Garcia Other Provider Marcellus PAUL, Dr. Dickinson Other Provider Edward PAUL, Dr. Thomas Other Provider Lux PAUL, Dr. Wei Other Provider Shruthi PAUL, Dr. Jeff [facility] Hamilton MD, Dr. Solitario Other Provider Alfonso PAUL, Dr. Alfaro Other Provider [phone] Silvino PAUL, Dr. Gong Other Provider [phone] Bolivar PAUL, Dr. Gardner Other Provider Milvia GAMING, Dr. Montero Other Provider Milana PAUL, Dr. Hand Other Provider [phone] Irasema Dunham MD, Dr. Villa Other Provider Stephen GAMING, Dr. Ramsey Other Provider Mt PAUL, Dr. Vivar Other Provider Garrison PAUL, Dr. Lerner Other Provider Truman GAMING, Dr. Rainey Other Provider Vern GAMING, Dr. Wesley Attending Provider Truong PAUL, Dr. Tariq Referring Provider Dr. Amauri Hermosillo DO Attending Provider Theresa PAUL, Dr. Dye Attending Provider Dr. Redd Laughlin DO Attending Provider Junior GAMING, Dr. Arias Attending Provider Jeana PAUL, Dr. Harper Attending Provider Dr. Ashley Dickey MD Attending Provider [phone] Dr. Ashley Dickey MD Referring Provider Mark GRIMES-CBritany Attending Provider [phone] Robert Huizar Admitting Unavailable Redd Laughlin Attending Unavailable Ashley Dickey Primary Care Unavailable Robert Huizar Consulting Unavailable Amauri Hermosillo Consulting Unavailable Marciano Guerin Consulting Unavailable Laci Jackson Consulting Unavailable Jonnathan Campuzano Consulting Unavailable Devin Bates Consulting Unavailable Scott Blandon Consulting Unavailable Lupillo Porras Consulting Unavailable Robert Fitch Consulting Unavailable Edwin Espinal Consulting Unavailable Jose, Kt Consulting Unavailable Habtegebriel, Antonia Consulting Unavailab le Dand, Jose Consulting Unavailable Germain, Alok Consulting Unavailable Leon, William Consulting Unavailable Lux, Sanjuana Consulting Unavailable Aljundi, Lamia Consulting Unavailable Hamilton, Kassi Consulting Unavailable Alfonso, Dominic Consulting Unavailable Irukulla, Beltran Consulting Unavailable Bolivar, Jj Consulting Unavailable Dhesi, Winston Consulting Unavailable Cortés, Sujoy Consulting Unavailable Parlin, Soleyah Consulting Unavailable Fernstrom, Braulio Consulting Unavailable Mt, Cb Consulting Unavailable Yann Ji Consulting Unavailable Redd Laughlin Consulting Unavailable Hardik Cardenas Attending UnavailAshley Humphries Primary Care Unavailable Ashley Dickey Primary Care Unavailable [place] Attending Unavailable Jose Olvera Referring Unavailable Robert Huizar Attending Unavailable Marciano Guerin Attending Unavailable Ashley Dickey Attending Unavailable Ashley Dickey Primary Care Unavailable Ashley Dickey Attending Unavailable Ashley Dickey Primary Care Unavailable Ashley Dickey Referring Unavailable Amauri Hermosillo Attending Unavailable Marciano Guerin Referring Unavailable Ashley Dickey Primary Care Unavailable Robert Huizar Admitting Unavailable Marciano Guerin Attending Unavailable Robert Huizar Consulting Unavailable Amauri Hermosillo Consulting Unavailable Marciano Guerin Consulting Unavailable Laci Jackson Consulting Unavailable Jonnathan Campuzano Consulting Unavailable Devin Bates Consulting Unavailable Scott Blandon Consulting Unavailable Lupillo Porras Consulting Unavailable Robert Fitch Consulting Unavailable Edwin Espinal Consulting Unavailable Jose, Kt Consulting Unavailable Habtegebriel, Antonia Consulting Unavailab le Dand, Jose Consulting Unavailable Germain, Alok Consulting Unavailable Leon, William Consulting Unavailable Lux, Sanjuana Consulting Unavailable Aljundi, Lamia Consulting Unavailable Hamilton, Kassi Consulting Unavailable Alfonso, Dominic Consulting Unavailable Irukulla, Beltran Consulting Unavailable Bolivar, Jj Consulting Unavailable Dhesi, Winston Consulting Unavailable Cortés, Sujoy Consulting Unavailable Parlin, Soleyah Consulting Unavailable Fernstrom, Braulio Consulting Unavailable Mt, Cb Consulting Unavailable Garrison, Yann Consulting Unavailable Redd Laughlin Consulting Unavailable [place] Attending Unavailable Ashley Dickey Primary Care Unavailable Hugo Pacheco Attending Unavailable Redd Laughlin Referring Unavailable Lupillo Porras Attending Unavailable Britany Flores Attending Unavailable Ashley Dickey Referring Unavailable Ashley Dickey Primary Care Unavailable Truong PAUL, Dr. Tariq Referring Provider Truman GAMING, Dr. Rainey Referring Provider Sherrie PAUL, Dr. Singleton Attending Provider Sherrie PAUL, Dr. Singleton Referring Provider Mark NEONATAL CRITICAL CARE NURSE-CBritany Attending Provider Allergies Allergy Classification Reported Allergen(s) Allergy Type Date of Onset Reaction(s) Facility Opioid Agonists (1 source) Codeine; Translations: [codeine] Drug Allergy DJ[facility] Work Phone: Penicillins (antibiotic) (1 source) Penicillins; Translations: [Penicillins] Drug Allergy IS[facility] Work Phone: Quinolones (antibiotic) (1 source) Ciprofloxacin; Translations: [Cipro] Drug Allergy [facility] [facility] Work Phone: Sulfamethoxazole / Trimethoprim (1 source) Sulfamethoxazole / Trimethoprim; Translations: [Bactrim] Drug Allergy FK[facility] Work Phone: (19 sources) ciprofloxacin; Translations: [CIPROFLOXACIN] Drug Allergy 11-12-19 16 Unknown [facility] Repository (20 sources) codeine; Translations: [CODEINE] Drug Allergy 11-12-19 16 Unknown [facility] Repository (20 sources) Penicillins; Translations: [PENICILLINS] Propensity to adverse reactions to drug (disorder) 11-12-19 16 Unknown [facility] Repository (8 sources) sulfamethoxazole / trimethoprim; Translations: [SULFAMETHOXAZOLE-T RIMETHOPRIM] Drug Allergy 08-23-19 17 Unknown [facility] Repository (10 sources) Sulfamethoxazole Drug Allergy 11-12-19 16 [facility] (10 sources) Trimethoprim Drug Allergy 11-12-19 16 [facility] (5 sources) Ciprofloxacin; Translations: [Cipro] Drug Allergy YZ[facility] Work Phone: (5 sources) Sulfamethoxazole / Trimethoprim; Translations: [Bactrim] Drug Allergy [facility] Work Phone: (1 source) Sulfamethoxazole Drug Allergy 09-09-19 [facility] Repository (1 source) Trimethoprim Drug Allergy 09-09-19 [facility] Repository Medications Current Medications Medication Drug Class(es) Dates Sig (Normalized) Sig (Original) acetaminophen 325 mg oral tablet (20 sources) Start: 05-26-2017 acetaminophen (T ylenoL) 325 mg capsule Take by mouth. Active Tylenol 325 MG O ral Capsule Quantity: 0 Refills: 0 Ordered: 23-May-2020 DO Active albuterol 0.83 mg/ml inhalat ion solution (10 sources) beta2-Adrenergic Agonist Start: 05-26-2017 Start: 05-26-2017 take 2.5 mg by inhal ation every six hours as needed for wheezing Albuterol Sulfate 2.5 MG/3 ML solution for nebulization Active 2.5 mg INHALATION EVERY 6 HOURS NEEDED as needed for Sob &/Or Wheezing May 26, 2017 12:00am Alum-Mag Hydroxide-Simeth (Mylanta [...] mouth. Active apixaban 5 mg oral tablet (5 sources) Factor Xa Inhibitor Start: 08-27-2024 ARIPiprazole 10 mg oral tabl et (20 sources) Atypical Antipsychotic Start: 08-18-2024 Start: 05-26-2017 Start: 05-26-2017 take 1 tablet by tory th at bedtime Aripiprazole 5 MG tablet Active 5 mg PO AT BEDTIME May 26, 2017 12:00am blood thinner ARIPiprazole 5 M G Oral Tablet Quantity: 0 Refills: 0 Ordered: 23-May-2020 DO Active atorvastatin 40 mg oral tabl et (19 sources) HMG-CoA Reductase Inhibitor Start: 05-10-2023 Start: 05-10-2023 take 1 tablet by tory th at bedtime Atorvastatin 40 mg tablet Active 40 mg PO AT BEDTIME May 10, 2023 1:00am hyperlipidemia Lipitor 40 MG Or al Tablet Quantity: 0 Refills: 0 Ordered: 23-May-2020 DO Active benztropine mesylate 1 mg or al tablet (20 sources) Anticholinergic, Antihistamine Start: 08-18-2024 Start: 05-26-2017 End: 05-10-2023 Start: 05-26-2017 End: 05-10-2023 take 0.5 mg by mouth once daily Benztropine 1 MG tablet Discontinued 0.5 mg PO DAILY May 26, 2017 12:00am May 10, 2023 6:37am Start: 05-26-2017 End: 05-10-2023 take 0.5 mg by mouth once daily Benztropine Discontinued 0.5 MG PO DAILY May 26, 2017 12:00am May 10, 2023 6:37am benztropine (Cog entin) 0.5 mg tablet Take by mouth. Active Benztropine Mesy late 0.5 MG Oral Tablet Quantity: 0 Refills: 0 Ordered: 23-May-2020 DO Active calcium carbonate 1250 mg ch ewable tablet (17 sources) Start: 08-18-2024 calcium carbonat e (Oscal) 500 mg calcium (1,250 mg) tablet Take by mouth. Active calcium carbonat e (Oscal) 500 mg calcium (1,250 mg) tablet Take by mouth. 0 Active Calcium 500 MG T ABS Quantity: 0 Refills: 0 Ordered: 23-May-2020 DO Active cholecalciferol 0.05 mg oral tablet (8 sources) Vitamin D Start: 08-18-2024 Start: 05-10-2023 take 1 capsule by mo [facility] once daily Cholecalciferol (Vitamin D3) (Vitamin D3) 50 mcg (2,000 unit) capsule Active 4000 UNIT PO DAILY May 10, 2023 1:00am diphenhydrAMINE hydrochlorid e 50 mg/ml injectable solution (8 sources) Histamine-1 Receptor Antagonist Start: 05-10-2023 Start: 05-10-2023 inject 50 mg by intr amuscular injection every six hours Diphenhydramine Hcl Active 50 MG IM EVERY 6 HOURS May 10, 2023 1:00am docusate sodium 50 mg / andrae osides, [facility] 8.6 mg oral tablet (5 sources) Start: 08-27-2024 Start: 08-27-2024 Sennosides-Doc usate Sodium (Stimulant Laxative Plus) 8.6-50 mg Tablet Active 2 {tbl} PO TWICE A DAY 0 0 August 27, 2024 12:00am fludrocortisone acetate 0.1 mg oral tablet (20 sources) Start: 05-26-2017 Start: 05-26-2017 take 0.05 mg by mout h once daily Fludrocortisone Active 0.05 MG PO DAILY@0800 May 26, 2017 12:00am Fludrocortisone Acetate 0.1 MG Oral Tablet Quantity: 0 Refills: 0 Ordered: 23-May-2020 DO Active fluticasone propionate 0.05 mg/actuat metered dose nasal spray (3 sources) Corticosteroid Start: 09-08-2024 folic acid 0.4 mg oral table t (19 sources) Start: 05-10-2023 folic acid (Folv ite) 1 mg tablet Take by mouth. Active Folic Acid 1 MG Oral Tablet Quantity: 0 Refills: 0 Ordered: 23-May-2020 DO Active 1 ml haloperidol decanoate 5 0 mg/ml injection (20 sources) Typical Antipsychotic Start: 09-08-2024 Start: 09-08-2024 Haloperidol 2 mg tablet Active mg PO September 08, 2024 12:00am Start: 05-10-2023 End: 09-08-2024 Start: 05-10-2023 inject 5 mg by intra muscular injection every three hours Haloperidol Lactate Active 5 MG IM Q3H May 10, 2023 1:00am Start: 05-26-2017 Start: 05-26-2017 take 3 mg by mouth t hree times daily Haloperidol Active 3 MG PO THREE TIMES A DAY May 26, 2017 12:00am Haloperidol 1 MG Oral Tablet Quantity: 0 Refills: 0 Ordered: 23-May-2020 DO Active Haloperidol 2 MG Oral Tablet Quantity: 0 Refills: 0 Ordered: 23-May-2020 DO Active hydrocortisone 10 mg oral ta blet (16 sources) Corticosteroid Start: 05-10-2023 Start: 05-10-2023 Lactobacillus Combination No.4 (Probiotic) 3 billion cell capsule (2 sources) Start: 09-08-2024 take 3 capsules by mouth once daily Lactobacillus Combination No.4 (Probiotic) 3 billion cell capsule Active 3000 NMA PO daily September 08, 2024 12:00am administer with a meal lactulose 667 mg/ml oral solution (20 sources) Osmotic Laxative Start: 05-10-2023 End: 08-27-2024 Start: 05-10-2023 End: 08-27-2024 take 20 g by mouth twice daily Lactulose (Enulose) 10 gram/15 mL solution Discontinued 20 g PO TWICE A DAY May 10, 2023 1:00am August 27, 2024 12:52pm abn labs lactulose (Krist alose) 10 gram packet Take by mouth. Active Lactulose 10 GM Oral Packet Quantity: 0 Refills: 0 Ordered: 23-May-2020 DO Active lithium carbonate 300 mg ext ended release oral tablet (20 sources) Start: 05-26-2017 lithium 300 mg t ablet Take by mouth. Active [place] Carbonat e 300 MG Oral Tablet Quantity: 0 Refills: 0 Ordered: 23-May-2020 DO Active loperamide hydrochloride 2 m g oral tablet (19 sources) Opioid Agonist Start: 09-08-2024 Start: 08-18-2024 End: 08-27-2024 Start: 08-18-2024 End: 08-27-2024 take 4 tablets [...] 24 hours PRN; Start: 05-26-2017 End: 05-10-2023 LORazepam 1 mg oral tablet (20 sources) Benzodiazepine Start: 05-10-2023 Start: 05-26-2017 End: 05-10-2023 Start: 05-26-2017 End: 05-10-2023 take 1 tablet by mouth three times daily Lorazepam 0.5 MG tablet Discontinued 0.5 mg PO THREE TIMES A DAY May 26, 2017 12:00am May 10, 2023 5:49am Ativan 0.5 MG Or al Tablet Quantity: 0 Refills: 0 Ordered: 23-May-2020 DO Active melatonin 3 mg oral capsule (19 sources) Start: 05-10-2023 Start: 05-10-2023 take 2 capsules by m outh at bedtime Melatonin 3 mg capsule Active 6 mg PO AT BEDTIME May 10, 2023 1:00am insom Start: 05-10-2023 take 6 mg by mouth at bedtime Melatonin Active 6 MG PO AT BEDTIME May 10, 2023 1:00am melatonin 3 mg t ablet Take by mouth. Active Melatonin 3 MG O ral Tablet Quantity: 0 Refills: 0 Ordered: 23-May-2020 DO Active nicotine 4 mg inhalation timothy ution (20 sources) Cholinergic Nicotinic Agonist Start: 05-10-2023 Start: 05-10-2023 Start: 05-10-2023 take 10 mg by inhala tion every two hours as needed Nicotine (Nicotrol) 10 mg cartridge Active 1 NMA INHALATION Q2H as needed for nicotine cravings May 10, 2023 1:00am nicotine polacri nathan (Nicorette) 2 mg lozenge Take by mouth. Active Nicorette Mini 2 MG Mouth/Throat Lozenge Quantity: 0 Refills: 0 Ordered: 23-May-2020 DO Active pantoprazole 40 mg delayed r elease oral tablet (5 sources) Proton Pump Inhibitor Start: 08-27-2024 polyethylene glycol 3350 170 00 mg powder for oral solution (20 sources) Osmotic Laxative Start: 05-26-2017 propranolol hydrochloride 10 mg oral tablet (19 sources) beta-Adrenergic Kehinde Start: 08-27-2024 Start: 08-18-2024 End: 08-27-2024 Start: 05-10-2023 End: 05-14-2023 purified protein derivative of tuberculin 50 unt/ml injectable solution (3 sources) Tuberculosis Skin Test, Skin Test Antigen Start: 09-08-2024 Start: 07-09-2025 Tuberculin Ppd (Tubersol) 5 tub. unit /0.1 mL solution Active 0.1 mL ID ONCE September 08, 2024 12:00am as a single dose sodium chloride 0.111 meq/ml nasal spray (3 sources) Start: 09-08-2024 Start: 09-08-2024 Sodium Chlorid e ([place] Nasal) 0.65 % aerosol,spray Active 2 NMA INTRANASAL Q2H as needed September 08, 2024 12:00am tamsulosin hydrochloride 0.4 mg oral capsule (20 sources) alpha-Adrenergic Kehinde Start: 05-26-2017 take 1 capsule by [facility] every twenty-four hours tamsulosin (Flomax) 0.4 mg 24 hr capsule Take by mouth. Active Tamsulosin HCl - 0.4 MG Oral Capsule Quantity: 0 Refills: 0 Ordered: 23-May-2020 DO Active divalproex sodium 125 mg delayed release oral capsule (20 sources) Mood Stabilizer, Anti-epileptic Agent Start: 05-26-2017 Start: 05-26-2017 Divalproex (De pakote Sprinkle) 125 MG Dre. Active 500 MG PO TWICE A DAY May 26, 2017 8:21am divalproex (Depa kote) 125 mg EC tablet Take by mouth. Active Divalproex Sodiu m 125 MG Oral Tablet Delayed Release Quantity: 0 Refills: 0 Ordered: 23-May-2020 DO Active 200 ml vancomycin 5 mg/ml injection (5 sources) Glycopeptide Antibacterial Start: 08-26-2024 Zinc Oxide (2 sources) Start: 09-08-2024 Zinc Oxide 1.8 % cream Active NMA TOPICAL September 08, 2024 12:00am (9 sources) Start: 09-08-2024 Start: 05-26-2017 End: 09-08-2024 Start: 05-26-2017 Start: 05-26-2017 End: 05-10-2023 Start: 05-26-2017 End: 08-27-2024 Completed/Discontinued Medications Medication Drug Class(es) Dates Sig (Normalized) Sig (Original) acetaminophen 325 mg / oxyCODONE hydrochloride 5 mg oral tablet (10 sources) Opioid Agonist Start: 06-06-2017 End: 05-10-2023 Start: 06-06-2017 End: 03-09-2024 Oxycodone-Acetaminophen 1 TA BLET tablet Discontinued 1 - 2 {tbl} PO EVERY 4 HOURS NEEDED as needed for Pain 14 7 June 06, 2017 12:00am May 10, 2023 5:48am Congenital hydrocele Start: 06-06-2017 End: 05-10-2023 take 1 tablet [...] 2017 12:00am benzocaine 15 mg / menthol 3 .6 mg oral lozenge (10 sources) Standardized Chemical Allergen Start: 05-26-2017 End: 09-08-2024 Start: 05-26-2017 Benzocaine-Men thol (Cepacol Sore Throat (Dylan-Men)) 1 EACH lozenge Active 1 LOZENGE BUCCAL NEEDED May 26, 2017 12:00am bisacodyl 10 mg rectal suppository (20 sources) Stimulant Laxative Start: 05-26-2017 Dulcolax Ac tive 5 MG PO NEEDED May 26, 2017 12:00am Start: 05-26-2017 End: 09-08-2024 Dulcolax 10 MG R ectal Suppository Quantity: 0 Refills: 0 Ordered: 23-May-2020 DO Active calcium carbonate 1500 mg / cholecalciferol 200 unt oral tablet (10 sources) Vitamin D Start: 05-26-2017 End: 08-18-2024 Start: 05-26-2017 End: 08-18-2024 Calcium Carbonate-Vitamin D3 (Calcium 600 + D(3)) 1 EACH tablet Discontinued 1 NMA PO TWICE A DAY May 26, 2017 12:00am August 18, 2024 11:00pm supplement docusate sodium 100 mg oral capsule (10 sources) Start: 08-18-2024 End: 08-27-2024 Start: 05-26-2017 take 1 capsule by mo [facility] once daily Docusate Sodium (Dok) 100 MG capsule Active 100 MG PO DAILY May 26, 2017 12:00am doxycycline monohydrate 100 mg oral capsule (10 sources) Tetracycline-class Drug Start: 06-06-2017 End: 05-10-2023 ferrous sulfate 325 mg oral tablet (8 sources) Start: 05-26-2017 End: 05-10-2023 take 1 tablet by mouth twice daily Ferrous Sulfate (Iron) 325 MG tablet Discontinued 325 mg PO TWICE A DAY May 26, 2017 12:00am May 10, 2023 6:37am guaiFENesin 20 mg/ml oral solution (10 sources) Start: 05-26-2017 End: 09-08-2024 Start: 05-26-2017 End: 09-08-2024 take 1 mL [...] 26, 2017 12:00am levoFLOXacin 750 mg oral tab let (15 sources) Quinolone Antimicrobial Start: 05-14-2023 End: 08-18-2024 Start: 05-10-2023 End: 05-14-2023 Magnesium Hydroxide (19 sources) Start: 05-26-2017 End: [...] / vitamin b6 10 mg oral tablet (10 sources) Start: 05-26-2017 End: 05-10-2023 Start: 05-26-2017 End: 05-10-2023 Melatonin-Pyridoxine Hcl (B6 ) Discontinued 1 EACH PO AT BEDTIME May 26, 2017 12:00am May 10, 2023 5:46am oxyCODONE hydrochloride 5 mg oral tablet (5 sources) Opioid Agonist Start: 08-27-2024 End: 09-08-2024 PARoxetine hydrochloride 20 mg oral tablet (20 sources) Serotonin Reuptake Inhibitor Start: 05-10-2023 End: 08-27-2024 Paxil 20 MG Oral Tablet Quantity: 0 Refills: 0 Ordered: 23-May-2020 DO Active predniSONE 10 mg oral tablet (7 sources) Start: 05-14-2023 End: 08-18-2024 Vitamin D TABS (6 sources) Vitamin D TABS Q uantity: 0 Refills: 0 Ordered: 23-May-2020 DO Active Zinc (6 sources) Zinc TABS Quanti ty: 0 Refills: 0 Ordered: 23-May-2020 DO Active Problems Active Problems Problem Classification Problem Date Documented Da te Episodic/Chronic Anxiety disorders (13 sources) Mixed anxiety and depressive disorder; Translations: [Anxiety disorder, unspecified] Onset: 08-18-2024 Chronic Bacterial infection; unspecified site (12 sources) Bacteremia due to Methicillin resistant Staphylococcus aureus; Translations: [Bacteremia] Onset: 5 08-23-2024 Episodic Cardiac dysrhythmias (8 sources) Bradycardia; Translations: [Bradycardia, unspecified] 05-13-2023 Episodic Coagulation and hemorrhagic disorders (6 sources) Thrombocytopenic disorder; Translations: [Thrombocytopenia, unspecified] 08-18-2024 Chronic Deficiency and other anemia (6 sources) Anemia; Translations: [Anemia, unspecified] 08-18-2024 Episodic Delirium, dementia, and amnestic and other cognitive disorders (12 sources) Dementia; Translations: [Unspecified dementia without behavioral disturbance] 08-18-2024 Chronic Epilepsy; convulsions (3 sources) Epilepsy; Translations: [Epilepsy, unspecified, not intractable, without status epilepticus] 09-08-2024 Chronic Epilepsy; convulsions (3 sources) Seizure; Translations: [Unspecified convulsions] 09-08-2024 Episodic Fracture of neck of femur (hip) (20 sources) Fracture of bone of hip region; Translations: [Fracture of unspecified part of neck of unspecified femur, initial encounter for closed fracture] Onset: 5 08-19-2024 Episodic Genitourinary congenital anomalies (3 sources) Hypospadias; Translations: [Hypospadias, unspecified] 09-08-2024 Chronic Genitourinary symptoms and ill-defined conditions (11 sources) Urinary incontinence; Translations: [Urinary incontinence, unspecified] Onset: 4 03-04-2023 Chronic Genitourinary symptoms and ill-defined conditions (20 sources) Nocturia; Translations: [Nocturia] Onset: 4 03-04-2023 Episodic Impulse control disorders, NEC (3 sources) Impulse control disorder; Translations: [Impulse disorder, unspecified] 09-08-2024 Chronic Influenza (10 sources) Influenza due to Influenza A virus; Translations: [Influenza due to other identified influenza virus with other respiratory manifestations] 05-10-2023 Episodic Mood disorders (1 source) Mood disorders; Translations: [Depression, unspecified] Onset: Other circulatory disease (6 sources) Low blood pressure; Translations: [Hypotension, unspecified] 08-18-2024 Episodic Other diseases of bladder and urethra (3 sources) Bladder neck obstruction; Translations: [Bladder-neck obstruction] 09-08-2024 Chronic Other diseases of kidney and ureters (3 sources) Hydronephrosis; Translations: [Unspecified hydronephrosis] 09-08-2024 Episodic Other ear and sense organ disorders (3 sources) Hearing loss; Translations: [Unspecified hearing loss, unspecified ear] 09-08-2024 Chronic Other gastrointestinal disorders (10 sources) Stercoral ulcer of large intestine; Translations: [Ulcer of intestine] 08-24-2024 Episodic Other gastrointestinal disorders (10 sources) Constipation; Translations: [Constipation, unspecified] 08-23-2024 Episodic Other gastrointestinal disorders (1 source) Constipation, unspecified; Translations: [Constipation, unspecified] Onset: Episodic Other gastrointestinal disorders (1 source) Ulcer of intestine; Translations: [Ulcer of intestine] Onset: Episodic Other lower respiratory disease (8 sources) Single lobe lung infiltrate; Translations: [Other nonspecific abnormal finding of lung field] 05-10-2023 Episodic Other lower respiratory disease (2 sources) Other nonspecific abnormal finding of lung field; Translations: [Other nonspecific abnormal finding of lung field] 05-10-2023 Episodic Other lower respiratory disease (12 sources) Respiratory insufficiency; Translations: [Other abnormalities of breathing] 08-18-2024 Episodic Other lower respiratory disease (1 source) Other abnormalities of breathing; Translations: [Other abnormalities of breathing] Onset: Episodic Other nervous system disorders (12 sources) Metabolic encephalopathy; Translations: [Metabolic encephalopathy] 08-18-2024 Chronic Other nervous system disorders (1 source) Metabolic encephalopathy; Translations: [Metabolic encephalopathy] Onset: Chronic Other nervous system disorders (8 sources) Toxic metabolic encephalopathy; Translations: [Toxic metabolic encephalopathy] 05-13-2023 Episodic Other nervous system disorders (12 sources) History of anoxic brain injury; Translations: [Personal history of other diseases of the nervous system and sense organs] 08-18-2024 Episodic Other nervous system disorders (1 source) Personal history of other diseases of the nervous system and sense organs; Translations: [Personal history of other diseases of the nervous system and sense organs] Onset: Episodic Other nutritional; endocrine; and metabolic disorders (6 sources) Ketosis; Translations: [Other specified metabolic disorders] 08-18-2024 Chronic Other screening for suspected conditions (not mental disorders or infectious disease) (6 sources) Prerenal azotemia; Translations: [Other specified abnormal findings of blood chemistry] 08-18-2024 Episodic Other upper respiratory disease (8 sources) Acute bronchospasm; Translations: [Acute bronchospasm] 05-10-2023 Episodic Other upper respiratory disease (2 sources) Acute bronchospasm; Translations: [Acute bronchospasm] 05-10-2023 Episodic Other upper respiratory infections (3 sources) Chronic pansinusitis; Translations: [Chronic pansinusitis] 09-08-2024 Chronic Residual codes; unclassified (6 sources) Altered mental status; Translations: [Altered mental status, unspecified] 08-18-2024 Episodic Residual codes; unclassified (3 sources) Insomnia; Translations: [Insomnia, unspecified] 09-08-2024 Episodic Respiratory failure; insufficiency; arrest (adult) (10 sources) Acute respiratory failure; Translations: [Acute respiratory failure with hypoxia] 05-10-2023 Episodic Schizophrenia and other psychotic disorders (16 sources) Schizoaffective disorder; Translations: [Schizoaffective disorder, unspecified] Onset: 5 08-18-2024 Chronic Screening and history of mental health and substance abuse codes (17 sources) H/O: schizophrenia; Translations: [Personal history of other mental and behavioral disorders] Onset: 5 05-10-2023 Episodic Septicemia (except in labor) (15 sources) Sepsis; Translations: [Sepsis, unspecified organism] Onset: 5 08-18-2024 Episodic Shock (1 source) Severe sepsis with septic shock; Translations: [Severe sepsis with septic shock] Onset: 5 Episodic Unclassified (1 source) Unspecified dementia, unspecified severity, with agitation; Translations: [Unspecified dementia, unspecified severity, with agitation] Onset: 5 Urinary tract infections (13 sources) Acute cystitis; Translations: [Acute cystitis without hematuria] Onset: 5 08-18-2024 Episodic Past or Other Problems Problem Classification Problem Date Documented Da te Episodic/Chronic Inflammatory conditions of male genital organs (10 sources) Abscess of scrotum; Translations: [Inflammatory disorders of scrotum] Onset: 03-05-2023 03-05-2023 Episodic Results Test Name Value Interpretation Reference Range Facility CBC W/Diff, Automatedon - PATH REV May foll Normal [facility] Comment on above: Performed By: #### L 100.0100, L500.2500, L501.8820 ####[facility] [address] [place], [address] SMEAR COMMENT SCANNED Normal [facility] Comment on above: Result Comment: LYMP HOPENIA NOTED Performed By: #### L 100.0100, L500.2500, L501.8820 ####[facility] [address] [place], [address] Absolute lymphocyte countOrd ered By: Ashley Dickey on 09-09-2024 Lymphocytes Auto (Unsp spec) [#/Vol] 0.56 10*3/uL Low 0.83-4.51 [facility] Anion gap in Serum or Plasma Ordered By: Ashley Dickey on 09-09-2024 Anion gap [Moles/Vol] 9 mmol/L 5-15 [facility] Automated lymphocyte count a s percentage of total leukocytesOrdered By: Ashley Dickey on 09-09-2024 Lymphocytes/100 WBC Auto (Unsp spec) 20.4 % - [facility] BUN/creatinine ratioOrdered By: Ashley Dickey on 09-09-2024 Urea nitrogen/Creatinine [Mass ratio] 18.1 mg/mg - [facility] Basic Metabolic Profile (BMP )on 09-09-2024 BUN/CRE 18.1 RATIO Normal 12-20 [facility] Comment on above: Performed By: #### L 100.0100, L500.2500, L501.8820 ####[facility] [address] [place], [address] Calcium [Mass/Vol] 8.6 mg/dL Normal 7.6-11.0 [facility] Comment on above: Performed By: #### L 100.0100, L500.2500, L501.8820 ####[facility] [address] [place], [address] Chloride [Moles/Vol] 113 mmol/L High 98-108 [facility] Comment on above: Performed By: #### L 100.0100, L500.2500, L501.8820 ####[facility] [address] [place], [address] CO2 [Moles/Vol] 21.5 mmol/L Normal 21.0-32.0 [facility] Comment on above: Performed By: #### L 100.0100, L500.2500, L501.8820 ####[facility] [address] [place], [address] Creatinine [Mass/Vol] 0.88 mg/dL Normal 0.70-1.20 [facility] Comment on above: Performed By: #### L 100.0100, L500.2500, L501.8820 ####[facility] [address] [place], [address] GAP 9 Normal 5-15 [facility] Comment on above: Performed By: #### L 100.0100, L500.2500, L501.8820 ####[facility] [address] [place], [address] GFR/1.73 sq M.predicted among non-blacks MDRD (S/P/Bld) [Vol rate/Area] 97 mL/min/{1.73_m2} Normal >60 [facility] Comment on above: Result Comment: mL/m in/1.73m2 CKD-EPI Creatinine Equation (2020) Performed By: #### L 100.0100, L500.2500, L501.8820 ####[facility] [address] [place], [address] Glucose [Mass/Vol] 96 mg/dL Normal 70-99 [facility] Comment on above: Performed By: #### L 100.0100, L500.2500, L501.8820 ####[facility] [address] [place], [address] Potassium [Moles/Vol] 3.6 mmol/L Normal 3.3-5.1 [facility] Comment on above: Performed By: #### L 100.0100, L500.2500, L501.8820 ####[facility] [address] [place], [address] Sodium [Moles/Vol] 144 mmol/L Normal 133-145 [facility] Comment on above: Performed By: #### L 100.0100, L500.2500, L501.8820 ####[facility] [address] [place], [address] Urea nitrogen [Mass/Vol] 16 mg/dL Normal 4-19 [facility] Comment on above: Performed By: #### L 100.0100, L500.2500, L501.8820 ####[facility] [address] [place], [address] Basophil percentageOrdered B y: Ashley Dickey on 09-09-2024 Basophils/100 WBC (Bld) 0.4 % 0-1 [facility] Blood manual differential co mment interpretation (narrative result)Ordered By: Ashley Dickey on 09-09-2024 Manual differential comment Christ (Bld) [Interp] SCANNED [facility] Carbon dioxide, total [Moles /volume] in Central venous bloodOrdered By: Ashley Dickey on 09-09-2024 CO2 [Moles/Vol] 21.5 mmol/L 21.0-32.0 [facility] Chloride assayOrdered By: Amy Dickey on 09-09-2024 Chloride [Moles/Vol] 113 mmol/L High 98-108 [facility] Eosinophil percentageOrdered By: Ashley Dickey on 09-09-2024 Eosinophils/100 WBC (Bld) 3.3 % 0-5 [facility] Erythrocyte distribution wid th ratioOrdered By: Ashley Dickey on 09-09-2024 Erythrocyte distribution width (RBC) [Ratio] 13.4 % 11.6-14.6 [facility] Erythrocyte distribution wid th standard deviationOrdered By: Ashley Dickey on 09-09-2024 Erythrocyte distribution width (RBC) [Ratio] 47.8 fl High 35.1-43.9 [facility] Glomerular filtration rate ( GFR) estimation/1.73 sq m using serum, plasma, or whole bOrdered By: Ashley Dickey on 09-09-2024 GFR/1.73 sq M.predicted among non-blacks MDRD (S/P/Bld) [Vol rate/Area] 97 mL/min/{1.73_m2} >60 [facility] Hematocrit Auto (Bld) [Volum e fraction]Ordered By: Ashley Dickey on 09-09-2024 Hematocrit (Bld) [Volume fraction] 24.9 % Low 40-54 [facility] Hemoglobin measurementOrdere d By: Ashley Dickey on 09-09-2024 Hemoglobin (Bld) [Mass/Vol] 7.7 g/dL Low 13.0-16.5 [facility] Immature granulocytes/100 WB C Auto (Bld)Ordered By: Ashley Dickey on 09-09-2024 Immature granulocytes/100 WBC (Bld) 0.400 % 0.0-0.9 [facility] MCV (mean corpuscular volume ) determinationOrdered By: Ashley Dickey on 09-09-2024 MCV (RBC) [Entitic vol] 97.6 fL High 80-94 [facility] Mean corpuscular hemoglobin (MCH) determinationOrdered By: Ashley Dickey on 09-09-2024 MCH (RBC) [Entitic mass] 30.2 pg 27.0-32.0 [facility] Monocyte percentageOrdered B y: Ashley Dickey on 09-09-2024 Monocytes/100 WBC (Bld) 9.5 % 0-10 [facility] Neutrophil percentageOrdered By: Ashley Dickey on 09-09-2024 Neutrophils/100 WBC (Bld) 66.0 % 47-70 [facility] Platelet countOrdered By: Amy Dickey on 09-09-2024 Platelets (Bld) [#/Vol] 111 10*3/uL Low 150-450 [facility] Potassium measurement (mass/ volume)Ordered By: Ashley Dickey on 09-09-2024 Potassium (Unsp spec) [Mass/Vol] 3.6 mmol/L 3.3-5.1 [facility] RBC Auto (Bld) [#/Vol]Ordere d By: Ashley Dickey on 09-09-2024 RBC (Bld) [#/Vol] 2.55 10*6/uL Low 4.6-6.2 [facility] Review by pathologistOrdered By: Ashley Dickey on 09-09-2024 Pathologist review Christ (Unsp spec) [Interp] July [facility] Serum creatinine measurement (mass/volume)Ordered By: Ashley Dickey on 09-09-2024 Creatinine [Mass/Vol] 0.88 mg/dL 0.70-1.20 [facility] Serum glucose measurement (m ass/volume)Ordered By: Ashley Dickey on 09-09-2024 Glucose [Mass/Vol] 96 mg/dL 70-99 [facility] Serum or plasma calcium kristie urement (mass/volume)Ordered By: Ashley Dickey on 09-09-2024 Calcium [Mass/Vol] 8.6 mg/dL 7.6-11.0 [facility] Serum or plasma urea nitroge n measurement (mass/volume)Ordered By: Ashley Dickey on 09-09-2024 Urea nitrogen [Mass/Vol] 16 mg/dL 4-19 [facility] Sodium levelOrdered By: Lance Dickey on 09-09-2024 Sodium [Moles/Vol] 144 mmol/L 133-145 [facility] Trough vancomycin levelOrder ed By: Ashley Dickey on 09-09-2024 Vancomycin trough [Mass/Vol] 18.0 ug/mL High 5.0-15.0 [facility] Vancomycin, Trough Levelon 0 09-09-2024 VANCO, TROUGH 18.0 ug/mL High 5.0-15.0 [facility] Comment on above: Order Comment: 0000 [...] therapy recommended for serious lifethreatening infections include:- Oslscqrxfk-Gvcvwxfyymgy-Gsvkznigy (Ventilator/Healtcare Associated)-SepsisPLEASE CONTACT PHARMACY SERVICES (#[id number]) FOR INTERPRETATIONOF RESULTS. Performed By: #### L 100.0100, L500.2500, L501.8820 ####[facility] [address] [place], [place], [id number] White blood cell (WBC) count Ordered By: Ashley Dickey on 09-09-2024 WBC (Bld) [#/Vol] 2.8 10*3/uL Low 4.4-11.0 [facility] HIP, UNI W/ Pelvis 2-3 Views on 09-08-2024 HIP, UNI W/ Pelvis 2-3 Views Normal [facility] Orthopedic Visit Reporton Orthopedic Visit Report Normal [facility] Trough vancomycin levelOrder ed By: Ashley Dickey on 09-01-2024 Vancomycin trough [Mass/Vol] 19.2 ug/mL High 5.0-15.0 [facility] Comment on above: Recommended goal tro [...] therapy recommended for serious lifethreatening infections include:- Wurgyfetyl-Qtckhvvijydx-Cepfbaisi (Ventilator/Healtcare Associated)-Sepsis PLEASE CONTACT PHARMACY SERVICES (#[id number]) FOR INTERPRETATIONOF RESULTS. Vancomycin, Trough Levelon 0 09-01-2024 VANCO, TROUGH 19.2 ug/mL High 5.0-15.0 [facility] Comment on above: Order Comment: 0000 [...] therapy recommended for serious lifethreatening infections include:- Elwwsiycgt-Svzfexkqiacd-Odnzmbnep (Ventilator/Healtcare Associated)-SepsisPLEASE CONTACT PHARMACY SERVICES (#[id number]) FOR INTERPRETATIONOF RESULTS. Performed By: #### L 501.8820 ####[facility] [address] [place], [address] Culture, Blood (WB)on 2024 CUB No growth in 5 days. Normal [facility] Comment on above: Performed By: #### M 200.1000 ####[facility] [address] [place], [address] Basic Metabolic Profile (BMP )on 08-28-2024 BUN Normal 4-19 [facility] Comment on above: Result Comment: Canc elled via OM: Order cancelled - Patient discharged Performed By: #### L 500.2500, L100.0100 ####[facility] [address] [place], [address] BUN/CRE Normal 10-20 [facility] Comment on above: Result Comment: Canc elled via OM: Order cancelled - Patient discharged Performed By: #### L 500.2500, L100.0100 ####[facility] [address] [place], [address] Calcium Normal 7.6-11.0 [facility] Comment on above: Result Comment: Canc elled via OM: Order cancelled - Patient discharged Performed By: #### L 500.2500, L100.0100 ####[facility] [address] [place], [address] CL Normal 98-108 [facility] Comment on above: Result Comment: Canc elled via OM: Order cancelled - Patient discharged Performed By: #### L 500.2500, L100.0100 ####[facility] [address] [place], [address] CO2 Normal 21.0-32.0 [facility] Comment on above: Result Comment: Canc elled via OM: Order cancelled - Patient discharged Performed By: #### L 500.2500, L100.0100 ####[facility] [address] [place], [address] CREAT,SERUM Normal 0.70-1.20 [facility] Comment on above: Result Comment: Canc elled via OM: Order cancelled - Patient discharged Performed By: #### L 500.2500, L100.0100 ####[facility] [address] [place], [address] eGFR Normal >60 [facility] Comment on above: Result Comment: Canc elled via OM: Order cancelled - Patient discharged Performed By: #### L 500.2500, L100.0100 ####[facility] [address] [place], [address] GAP Normal 5-15 [facility] Comment on above: Result Comment: Canc elled via OM: Order cancelled - Patient discharged Performed By: #### L 500.2500, L100.0100 ####[facility] [address] [place], [address] GLU Normal 70-99 [facility] Comment on above: Result Comment: Canc elled via OM: Order cancelled - Patient discharged Performed By: #### L 500.2500, L100.0100 ####[facility] [address] [place], [address] Potassium Normal 3.3-5.1 [facility] Comment on above: Result Comment: Canc elled via OM: Order cancelled - Patient discharged Performed By: #### L 500.2500, L100.0100 ####[facility] [address] [place], [address] Basic Metabolic Profile (BMP) Normal 133-145 [facility] Comment on above: Result Comment: Canc elled via OM: Order cancelled - Patient discharged Performed By: #### L 500.2500, L100.0100 ####[facility] [address] [place], [address] CBC W/Diff, Automatedon 08-02 Absolute Neut Normal 2.0-7.7 [facility] Comment on above: Result Comment: Canc elled via OM: Order cancelled - Patient discharged Performed By: #### L 500.2500, L100.0100 ####[facility] [address] [place], [address] HCT Normal 40-54 [facility] Comment on above: Result Comment: Canc elled via OM: Order cancelled - Patient discharged Performed By: #### L 500.2500, L100.0100 ####[facility] [address] [place], [address] HGB Normal 13.0-16.5 [facility] Comment on above: Result Comment: Canc elled via OM: Order cancelled - Patient discharged Performed By: #### L 500.2500, L100.0100 ####[facility] [address] [place], [address] MCH Normal 27.0-32.0 [facility] Comment on above: Result Comment: Canc elled via OM: Order cancelled - Patient discharged Performed By: #### L 500.2500, L100.0100 ####[facility] [address] [place], [address] MCHC Normal 32-36 [facility] Comment on above: Result Comment: Canc elled via OM: Order cancelled - Patient discharged Performed By: #### L 500.2500, L100.0100 ####[facility] [address] [place], [address] MCV Normal 80-94 [facility] Comment on above: Result Comment: Canc elled via OM: Order cancelled - Patient discharged Performed By: #### L 500.2500, L100.0100 ####[facility] [address] [place], [address] NEUT% Normal 47-70 [facility] Comment on above: Result Comment: Canc elled via OM: Order cancelled - Patient discharged Performed By: #### L 500.2500, L100.0100 ####[facility] [address] [place], [address] PLT Normal 150-450 [facility] Comment on above: Result Comment: Canc elled via OM: Order cancelled - Patient discharged Performed By: #### L 500.2500, L100.0100 ####[facility] [address] [place], [address] RBC Normal 4.6-6.2 [facility] Comment on above: Result Comment: Canc elled via OM: Order cancelled - Patient discharged Performed By: #### L 500.2500, L100.0100 ####[facility] [address] [place], [address] RDW CV Normal 11.6-14.6 [facility] Comment on above: Result Comment: Canc elled via OM: Order cancelled - Patient discharged Performed By: #### L 500.2500, L100.0100 ####[facility] [address] [place], [address] RDW SD Normal 35.1-43.9 [facility] Comment on above: Result Comment: Canc elled via OM: Order cancelled - Patient discharged Performed By: #### L 500.2500, L100.0100 ####[facility] [address] [place], [address] WBC Normal 4.4-11.0 [facility] Comment on above: Result Comment: Canc elled via OM: Order cancelled - Patient discharged Performed By: #### L 500.2500, L100.0100 ####[facility] [address] [place], [address] Culture, Blood (WB)on 2024 CUB No growth in 5 days. Normal [facility] Comment on above: Performed By: #### M 200.1000 ####[facility] [address] [place], [address] Absolute lymphocyte countOrd ered By: Marciano Guerin on 08-27-2024 Lymphocytes Auto (Unsp spec) [#/Vol] 1.04 10*3/uL 0.83-4.51 [facility] Absolute neutrophil countOrd ered By: Marciano Guerin on 08-27-2024 Neutrophils (Bld) [#/Vol] 1.8 10*3/uL Low 2.0-7.7 [facility] Anion gap in Serum or Plasma Ordered By: Marciano Guerin on 08-27-2024 Anion gap [Moles/Vol] 8 mmol/L 5-15 [facility] Automated lymphocyte count a s percentage of total leukocytesOrdered By: Marciano Guerin on 08-27-2024 Lymphocytes/100 WBC Auto (Unsp spec) 31.0 % 19-41 [facility] BUN/creatinine ratioOrdered By: Marciano Guerin on 08-27-2024 Urea nitrogen/Creatinine [Mass ratio] 11.8 mg/mg - [facility] Basic Metabolic Profile (BMP )on 08-27-2024 BUN/CRE 11.8 RATIO Normal 12-20 [facility] Comment on above: Performed By: #### L 500.2500, L501.2300, L501.5200, L100.0100 ####[facility] [address] [place], [address] Calcium [Mass/Vol] 8.0 mg/dL Normal 7.6-11.0 [facility] Comment on above: Performed By: #### L 500.2500, L501.2300, L501.5200, L100.0100 ####[facility] [address] [place], [address] Chloride [Moles/Vol] 114 mmol/L High 98-108 [facility] Comment on above: Performed By: #### L 500.2500, L501.2300, L501.5200, L100.0100 ####[facility] [address] [place], [address] CO2 [Moles/Vol] 22.4 mmol/L Normal 21.0-32.0 [facility] Comment on above: Performed By: #### L 500.2500, L501.2300, L501.5200, L100.0100 ####[facility] [address] [place], [address] Creatinine [Mass/Vol] 0.77 mg/dL Normal 0.70-1.20 [facility] Comment on above: Performed By: #### L 500.2500, L501.2300, L501.5200, L100.0100 ####[facility] [address] [place], [address] ECRCL 98.61 ml/min Normal 50-250 [facility] Comment on above: Performed By: #### L 500.2500, L501.2300, L501.5200, L100.0100 ####[facility] [address] [place], [address] GAP 8 Normal 5-15 [facility] Comment on above: Performed By: #### L 500.2500, L501.2300, L501.5200, L100.0100 ####[facility] [address] [place], [address] GFR/1.73 sq M.predicted among non-blacks MDRD (S/P/Bld) [Vol rate/Area] 101 mL/min/{1.73_m2} Normal >60 [facility] Comment on above: Result Comment: mL/m in/1.73m2 CKD-EPI Creatinine Equation (2020) Performed By: #### L 500.2500, L501.2300, L501.5200, L100.0100 ####[facility] [address] [place], [address] Glucose [Mass/Vol] 98 mg/dL Normal 70-99 [facility] Comment on above: Performed By: #### L 500.2500, L501.2300, L501.5200, L100.0100 ####[facility] [address] [place], [address] Potassium [Moles/Vol] 2.9 mmol/L Low 3.3-5.1 [facility] Comment on above: Performed By: #### L 500.2500, L501.2300, L501.5200, L100.0100 ####[facility] [address] [place], [address] Sodium [Moles/Vol] 144 mmol/L Normal 133-145 [facility] Comment on above: Performed By: #### L 500.2500, L501.2300, L501.5200, L100.0100 ####[facility] [address] [place], [address] Urea nitrogen [Mass/Vol] 9 mg/dL Normal 4-19 [facility] Comment on above: Performed By: #### L 500.2500, L501.2300, L501.5200, L100.0100 ####[facility] [address] [place], [address] Basophil percentageOrdered B y: Marciano Guerin on 08-27-2024 Basophils/100 WBC (Bld) 0.3 % 0-1 [facility] CBC W/Diff, Automatedon 08-02 Absolute Lymph 1.04 X10 3/uL Normal 0.83-4.51 [facility] Comment on above: Performed By: #### L 500.2500, L501.2300, L501.5200, L100.0100 ####[facility] [address] [place], [address] Absolute Neut 1.8 X10 3/uL Low 2.0-7.7 [facility] Comment on above: Performed By: #### L 500.2500, L501.2300, L501.5200, L100.0100 ####[facility] [address] [place], [address] Basophils/100 WBC (Bld) 0.3 % Normal 0-1 [facility] Comment on above: Performed By: #### L 500.2500, L501.2300, L501.5200, L100.0100 ####[facility] [address] [place], [address] Eosinophils/100 WBC (Bld) 5.1 % High 0-5 [facility] Comment on above: Performed By: #### L 500.2500, L501.2300, L501.5200, L100.0100 ####[facility] [address] [place], [address] Erythrocyte distribution width (RBC) [Ratio] 12.7 % Normal 11.6-14.6 [facility] Comment on above: Performed By: #### L 500.2500, L501.2300, L501.5200, L100.0100 ####[facility] [address] [place], [address] Hematocrit (Bld) [Volume fraction] 21.6 % Low 40-54 [facility] Comment on above: Performed By: #### L 500.2500, L501.2300, L501.5200, L100.0100 ####[facility] [address] [place], [address] Hemoglobin (Bld) [Mass/Vol] 7.2 g/dL Low 13.0-16.5 [facility] Comment on above: Performed By: #### L 500.2500, L501.2300, L501.5200, L100.0100 ####[facility] [address] [place], [address] IG% 0.600 Normal 0.0-0.9 [facility] Comment on above: Result Comment: IG% - Immature Granulocytes (promyelocytes, myelocytes andmetamyelocytes) > 1% indicates that a LEFT SHIFT is Present. Performed By: #### L 500.2500, L501.2300, L501.5200, L100.0100 ####[facility] [address] [place], [address] Lymphocytes/100 WBC (Bld) 31.0 % Normal 19-41 [facility] Comment on above: Performed By: #### L 500.2500, L501.2300, L501.5200, L100.0100 ####[facility] [address] [place], [address] MCH (RBC) [Entitic mass] 30.3 pg Normal 27.0-32.0 [facility] Comment on above: Performed By: #### L 500.2500, L501.2300, L501.5200, L100.0100 ####[facility] [address] [place], [address] MCHC (RBC) [Mass/Vol] 33.3 g/dL Normal 32-36 [facility] Comment on above: Performed By: #### L 500.2500, L501.2300, L501.5200, L100.0100 ####[facility] [address] [place], [address] MCV (RBC) [Entitic vol] 90.8 fL Normal 80-94 [facility] Comment on above: Performed By: #### L 500.2500, L501.2300, L501.5200, L100.0100 ####[facility] [address] [place], [address] Monocytes/100 WBC (Bld) 10.1 % High 0-10 [facility] Comment on above: Performed By: #### L 500.2500, L501.2300, L501.5200, L100.0100 ####[facility] [address] [place], [address] Neutrophils/100 WBC (Bld) 52.9 % Normal 47-70 [facility] Comment on above: Performed By: #### L 500.2500, L501.2300, L501.5200, L100.0100 ####[facility] [address] [place], [address] Nucleated RBC (Bld) [#/Vol] 0 10*3/uL Normal 0-5 [facility] Comment on above: Performed By: #### L 500.2500, L501.2300, L501.5200, L100.0100 ####[facility] [address] [place], [address] Platelet mean volume (Bld) [Entitic vol] 10.4 fL Normal 6.2-12.0 [facility] Comment on above: Performed By: #### L 500.2500, L501.2300, L501.5200, L100.0100 ####[facility] [address] [place], [address] Platelets (Bld) [#/Vol] 133 10*3/uL Low 150-450 [facility] Comment on above: Performed By: #### L 500.2500, L501.2300, L501.5200, L100.0100 ####[facility] [address] [place], [address] RBC (Bld) [#/Vol] 2.38 10*6/uL Low 4.6-6.2 [facility] Comment on above: Performed By: #### L 500.2500, L501.2300, L501.5200, L100.0100 ####[facility] [address] [place], [address] RDW SD 40.8 fl Normal 35.1-43.9 [facility] Comment on above: Performed By: #### L 500.2500, L501.2300, L501.5200, L100.0100 ####[facility] [address] [place], [address] WBC (Bld) [#/Vol] 3.4 10*3/uL Low 4.4-11.0 [facility] Comment on above: Performed By: #### L 500.2500, L501.2300, L501.5200, L100.0100 ####[facility] [address] [place], [address] Carbon dioxide, total [Moles /volume] in Central venous bloodOrdered By: Marciano Guerin on 08-27-2024 CO2 [Moles/Vol] 22.4 mmol/L 21.0-32.0 [facility] Chloride assayOrdered By: Theresa Guerin on 08-27-2024 Chloride [Moles/Vol] 114 mmol/L High 98-108 [facility] Eosinophil percentageOrdered By: Marciano Guerin on 08-27-2024 Eosinophils/100 WBC (Bld) 5.1 % High 0-5 [facility] Erythrocyte distribution wid th ratioOrdered By: Marciano Guerin on 08-27-2024 Erythrocyte distribution width (RBC) [Ratio] 12.7 % 11.6-14.6 [facility] Erythrocyte distribution wid th standard deviationOrdered By: Marciano Guerin on 08-27-2024 Erythrocyte distribution width (RBC) [Ratio] 40.8 fl 35.1-43.9 [facility] Glomerular filtration rate ( GFR) estimation/1.73 sq m using serum, plasma, or whole bOrdered By: Marciano Guerin on 08-27-2024 GFR/1.73 sq M.predicted among non-blacks MDRD (S/P/Bld) [Vol rate/Area] 101 mL/min/{1.73_m2} >60 [facility] Comment on above: mL/min/1.73m2 CKD-EP I Creatinine Equation (2020) Hematocrit Auto (Bld) [Volum e fraction]Ordered By: Marciano Guerin on 08-27-2024 Hematocrit (Bld) [Volume fraction] 21.6 % Low 40-54 [facility] Hemoglobin measurementOrdere d By: Marciano Guerin on 08-27-2024 Hemoglobin (Bld) [Mass/Vol] 7.2 g/dL Low 13.0-16.5 [facility] Immature granulocytes/100 WB C Auto (Bld)Ordered By: Marciano Guerin on 08-27-2024 Immature granulocytes/100 WBC (Bld) 0.600 % 0.0-0.9 [facility] Comment on above: IG% - Immature Granu locytes (promyelocytes, myelocytes and metamyelocytes) > 1% indicates that a LEFT SHIFT is Present. MCV (mean corpuscular volume ) determinationOrdered By: Marciano Guerin on 08-27-2024 MCV (RBC) [Entitic vol] 90.8 fL 80-94 [facility] Magnesiumon 08-27-2024 Magnesium [Mass/Vol] 2.2 mg/dL Normal 1.5-2.2 [facility] Comment on above: Performed By: #### L 500.2500, L501.2300, L501.5200, L100.0100 ####[facility] [address] [place], [address] Magnesium measurement (mass/ volume)Ordered By: Marciano Guerin on 06-27-2025 Magnesium (Unsp spec) [Mass/Vol] 2.2 mg/dL 1.5-2.2 [facility] Mean corpuscular hemoglobin (MCH) determinationOrdered By: Marciano Guerin on 08-27-2024 MCH (RBC) [Entitic mass] 30.3 pg 27.0-32.0 [facility] Mean corpuscular hemoglobin concentration (MCHC) determinationOrdered By: Marciano Guerin on 08-27-2024 MCHC (RBC) [Mass/Vol] 33.3 g/dL 32-36 [facility] Mean platelet volume determi nationOrdered By: Marciano Guerin on 08-27-2024 Platelet mean volume (Bld) [Entitic vol] 10.4 fL 6.2-12.0 [facility] Monocyte percentageOrdered B y: Marciano Guerin on 08-27-2024 Monocytes/100 WBC (Bld) 10.1 % High 0-10 [facility] Neutrophil percentageOrdered By: Marciano Guerin on 08-27-2024 Neutrophils/100 WBC (Bld) 52.9 % 47-70 [facility] Nucleated red blood cell per centageOrdered By: Marciano Guerin on 08-27-2024 Nucleated RBC/100 WBC (Bld) [Ratio] 0 % 0-5 [facility] Phosphoruson 08-27-2024 Phosphate [Mass/Vol] 2.8 mg/dL Normal 2.7-4.5 [facility] Comment on above: Performed By: #### L 500.2500, L501.2300, L501.5200, L100.0100 ####[facility] [address] [facility] [place], [address] Platelet countOrdered By: Theresa Guerin on 08-27-2024 Platelets (Bld) [#/Vol] 133 10*3/uL Low 150-450 [facility] Potassium measurement (mass/ volume)Ordered By: Marciano Guerin on 08-27-2024 Potassium (Unsp spec) [Mass/Vol] 2.9 mmol/L Low 3.3-5.1 [facility] RBC Auto (Bld) [#/Vol]Ordere d By: Marciano Guerin on 08-27-2024 RBC (Bld) [#/Vol] 2.38 10*6/uL Low 4.6-6.2 [facility] Serum creatinine measurement (mass/volume)Ordered By: Marciano Guerin on 08-27-2024 Creatinine [Mass/Vol] 0.77 mg/dL 0.70-1.20 [facility] Serum glucose measurement (m ass/volume)Ordered By: Marciano Guerin on 08-27-2024 Glucose [Mass/Vol] 98 mg/dL 70-99 [facility] Serum or plasma calcium kristie urement (mass/volume)Ordered By: Marciano Guerin on 08-27-2024 Calcium [Mass/Vol] 8.0 mg/dL 7.6-11.0 [facility] Serum or plasma urea nitroge n measurement (mass/volume)Ordered By: Marciano Guerin on 08-27-2024 Urea nitrogen [Mass/Vol] 9 mg/dL 4-19 [facility] Sodium levelOrdered By: Alfreda Guerin on 08-27-2024 Sodium [Moles/Vol] 144 mmol/L 133-145 [facility] White blood cell (WBC) count Ordered By: Marciano Guerin on 08-27-2024 WBC (Bld) [#/Vol] 3.4 10*3/uL Low 4.4-11.0 [facility] Basic Metabolic Profile (BMP )on 08-26-2024 BUN/CRE 11.2 RATIO Normal 10-20 [facility] Comment on above: Performed By: #### L 501.2300, L500.2500 ####[facility] [address] [place], [address] Calcium [Mass/Vol] 8.0 mg/dL Normal 7.6-11.0 [facility] Comment on above: Performed By: #### L 501.2300, L500.2500 ####[facility] [address] [place], [address] Chloride [Moles/Vol] 115 mmol/L High 98-108 [facility] Comment on above: Performed By: #### L 501.2300, L500.2500 ####[facility] [address] [place], [address] CO2 [Moles/Vol] 22.9 mmol/L Normal 21.0-32.0 [facility] Comment on above: Performed By: #### L 501.2300, L500.2500 ####[facility] [address] [place], [address] Creatinine [Mass/Vol] 0.78 mg/dL Normal 0.70-1.20 [facility] Comment on above: Performed By: #### L 501.2300, L500.2500 ####[facility] [address] [place], [address] ECRCL 97.48 ml/min Normal 50-250 [facility] Comment on above: Performed By: #### L 501.2300, L500.2500 ####[facility] [address] [place], [address] GAP 8 Normal 5-15 [facility] Comment on above: Performed By: #### L 501.2300, L500.2500 ####[facility] [address] [place], [address] GFR/1.73 sq M.predicted among non-blacks MDRD (S/P/Bld) [Vol rate/Area] 100 mL/min/{1.73_m2} Normal >60 [facility] Comment on above: Result Comment: mL/m in/1.73m2 CKD-EPI Creatinine Equation (2020) Performed By: #### L 501.2300, L500.2500 ####[facility] [address] [place], [address] Glucose [Mass/Vol] 110 mg/dL High 70-99 [facility] Comment on above: Performed By: #### L 501.2300, L500.2500 ####[facility] [address] [place], [address] Potassium [Moles/Vol] 2.7 mmol/L Invalid Interpretation Code 3.3-5.1 [facility] Comment on above: Result Comment: Crit ical Result(s) Called at: 08/26/2024-08:34 by: Milagro to Kiersten Panchal.??Results read back by same. Performed By: #### L 501.2300, L500.2500 ####[facility] [address] [place], [address] Sodium [Moles/Vol] 145 mmol/L Normal 133-145 [facility] Comment on above: Performed By: #### L 501.2300, L500.2500 ####[facility] [address] [place], [address] Urea nitrogen [Mass/Vol] 9 mg/dL Normal 4-19 [facility] Comment on above: Performed By: #### L 501.2300, L500.2500 ####[facility] [address] [place], [address] CBC-Complete Blood Cnt No Di ffon 08-26-2024 Erythrocyte distribution width (RBC) [Ratio] 12.7 % Normal 11.6-14.6 [facility] Comment on above: Performed By: #### L 100.0500 ####[facility] [address] [place], [address] Hematocrit (Bld) [Volume fraction] 22.3 % Low 40-54 [facility] Comment on above: Performed By: #### L 100.0500 ####[facility] [address] [place], [address] Hemoglobin (Bld) [Mass/Vol] 7.4 g/dL Low 13.0-16.5 [facility] Comment on above: Performed By: #### L 100.0500 ####[facility] [address] [place], [address] MCH (RBC) [Entitic mass] 30.3 pg Normal 27.0-32.0 [facility] Comment on above: Performed By: #### L 100.0500 ####[facility] [address] [place], [address] MCHC (RBC) [Mass/Vol] 33.2 g/dL Normal 32-36 [facility] Comment on above: Performed By: #### L 100.0500 ####[facility] [address] [place], [address] MCV (RBC) [Entitic vol] 91.4 fL Normal 80-94 [facility] Comment on above: Performed By: #### L 100.0500 ####[facility] [address] [place], [address] Platelet mean volume (Bld) [Entitic vol] 10.3 fL Normal 6.2-12.0 [facility] Comment on above: Performed By: #### L 100.0500 ####[facility] [address] [place], [address] Platelets (Bld) [#/Vol] 124 10*3/uL Low 150-450 [facility] Comment on above: Performed By: #### L 100.0500 ####[facility] [address] [place], [address] RBC (Bld) [#/Vol] 2.44 10*6/uL Low 4.6-6.2 [facility] Comment on above: Performed By: #### L 100.0500 ####[facility] [address] [place], [address] RDW SD 42.0 fl Normal 35.1-43.9 [facility] Comment on above: Performed By: #### L 100.0500 ####[facility] [address] [place], [place], [address] WBC (Bld) [#/Vol] 3.9 10*3/uL Low 4.4-11.0 [facility] Comment on above: Performed By: #### L 100.0500 ####[facility] [address] [place], [place], [address] Phosphoruson 08-26-2024 Phosphate [Mass/Vol] 2.5 mg/dL Low 2.7-4.5 [facility] Comment on above: Performed By: #### L 501.2300, L500.2500 ####[facility] [address] [place], [place], [address] Trough vancomycin levelOrder ed By: Laci Jackson on 08-26-2024 Vancomycin trough [Mass/Vol] 18.9 ug/mL High 5.0-15.0 [facility] Comment on above: Recommended goal tro [...] therapy recommended for serious lifethreatening infections include:- Tixzsgvbbd-Kgvumtnaznbr-Kaafqdnbp (Ventilator/Healtcare Associated)-Sepsis PLEASE CONTACT PHARMACY SERVICES (#[id number]) FOR INTERPRETATIONOF RESULTS. Vancomycin, Trough Levelon 0 08-26-2024 VANCO, TROUGH 18.9 ug/mL High 5.0-15.0 [facility] Comment on above: Order Comment: 1700 [...] therapy recommended for serious lifethreatening infections include:- Jijmujdrjm-Ngkvvbvgloek-Jlxrslwpx (Ventilator/Healtcare Associated)-SepsisPLEASE CONTACT PHARMACY SERVICES (#[id number]) FOR INTERPRETATIONOF RESULTS. Performed By: #### L 501.8820 ####[facility] [address] [facility] [address] Ammoniaon 08-25-2024 Ammonia (P) [Moles/Vol] 18.0 umol/L Normal - [facility] Comment on above: Performed By: #### L 503.5510 ####[facility] [address] [facility] [id number] Urine Cultureon 08-25-2024 URC Normal [facility] Comment on above: Performed By: #### L 400.0001, M100.2200 ####[facility] [address] [place] [id number] Venous blood ammonia measure mentOrdered By: Roxanne More on 08-25-2024 Ammonia (P) [Moles/Vol] 18.0 umol/L 16-60 [facility] Basic Metabolic Profile (BMP )on 08-24-2024 BUN/CRE 16.4 RATIO Normal 10-20 [facility] Comment on above: Performed By: #### L 500.2500 ####[facility] [address] [facility] [address] Calcium [Mass/Vol] 8.3 mg/dL Normal 7.6-11.0 [facility] Comment on above: Performed By: #### L 500.2500 ####[facility] [address] [facility] [address] Chloride [Moles/Vol] 114 mmol/L High 98-108 [facility] Comment on above: Performed By: #### L 500.2500 ####[facility] [address] [place], [address] CO2 [Moles/Vol] 22.2 mmol/L Normal 21.0-32.0 [facility] Comment on above: Performed By: #### L 500.2500 ####[facility] [address] [place], [address] Creatinine [Mass/Vol] 0.83 mg/dL Normal 0.70-1.20 [facility] Comment on above: Performed By: #### L 500.2500 ####[facility] [address] [place], [address] ECRCL 93.03 ml/min Normal 50-250 [facility] Comment on above: Performed By: #### L 500.2500 ####[facility] [address] [place], [address] GAP 9 Normal 5-15 [facility] Comment on above: Performed By: #### L 500.2500 ####[facility] [address] [place], [address] GFR/1.73 sq M.predicted among non-blacks MDRD (S/P/Bld) [Vol rate/Area] 98 mL/min/{1.73_m2} Normal >60 [facility] Comment on above: Result Comment: mL/m in/1.73m2 CKD-EPI Creatinine Equation (2020) Performed By: #### L 500.2500 ####[facility] [address] [place], [address] Glucose [Mass/Vol] 103 mg/dL High 70-99 [facility] Comment on above: Performed By: #### L 500.2500 ####[facility] [address] [place], [address] Potassium [Moles/Vol] 3.0 mmol/L Low 3.3-5.1 [facility] Comment on above: Performed By: #### L 500.2500 ####[facility] [address] [place], [address] Sodium [Moles/Vol] 145 mmol/L Normal 133-145 [facility] Comment on above: Performed By: #### L 500.2500 ####[facility] [address] [place], [address] Urea nitrogen [Mass/Vol] 14 mg/dL Normal 4-19 [facility] Comment on above: Performed By: #### L 500.2500 ####[facility] [address] [place], [address] Blood cultureOrdered By: Agustin Jackson on 08-24-2024 Bacteria identified Cx Nom (Bld) No growth in 5 days. [facility] CBC-Complete Blood Cnt No Di ffon 08-24-2024 Erythrocyte distribution width (RBC) [Ratio] 12.2 % Normal 11.6-14.6 [facility] Comment on above: Performed By: #### L 100.0500 ####[facility] [address] [place], [address] Hematocrit (Bld) [Volume fraction] 22.2 % Low 40-54 [facility] Comment on above: Performed By: #### L 100.0500 ####[facility] [address] [place], [address] Hemoglobin (Bld) [Mass/Vol] 7.4 g/dL Low 13.0-16.5 [facility] Comment on above: Performed By: #### L 100.0500 ####[facility] [address] [place], [address] MCH (RBC) [Entitic mass] 30.3 pg Normal 27.0-32.0 [facility] Comment on above: Performed By: #### L 100.0500 ####[facility] [address] [place], [address] MCHC (RBC) [Mass/Vol] 33.3 g/dL Normal 32-36 [facility] Comment on above: Performed By: #### L 100.0500 ####[facility] [address] [place], [address] MCV (RBC) [Entitic vol] 91.0 fL Normal 80-94 [facility] Comment on above: Performed By: #### L 100.0500 ####[facility] [address] [place], [address] Platelet mean volume (Bld) [Entitic vol] 10.6 fL Normal 6.2-12.0 [facility] Comment on above: Performed By: #### L 100.0500 ####[facility] [address] [place], [address] Platelets (Bld) [#/Vol] 103 10*3/uL Low 150-450 [facility] Comment on above: Performed By: #### L 100.0500 ####[facility] [address] [place], [address] RBC (Bld) [#/Vol] 2.44 10*6/uL Low 4.6-6.2 [facility] Comment on above: Performed By: #### L 100.0500 ####[facility] [address] [place], [address] RDW SD 40.2 fl Normal 35.1-43.9 [facility] Comment on above: Performed By: #### L 100.0500 ####[facility] [address] [place], [address] WBC (Bld) [#/Vol] 2.7 10*3/uL Low 4.4-11.0 [facility] Comment on above: Performed By: #### L 100.0500 ####[facility] [address] [place], [address] Culture, Blood (WB)on 2024 CUB Normal [facility] Comment on above: Performed By: #### M 200.1000 ####[facility] [address] [place], [place], [address] Echo Transesophageal (DARREN)on 08-24-2024 Echo Transesophageal (DARREN) Normal [facility] Electrocardiogram reportOrde red By: Leroy Hills on 08-24-2024 EKG study [facility] [facility] Work Phone: [phone] Magnesiumon 08-24-2024 Magnesium [Mass/Vol] 2.2 mg/dL Normal 1.5-2.2 [facility] Comment on above: Performed By: #### L 501.2300, L501.5200 ####[facility] [address] [place], [place], [id number] Phosphoruson 08-24-2024 Phosphate [Mass/Vol] 2.4 mg/dL Low 2.7-4.5 [facility] Comment on above: Performed By: #### L 501.2300, L501.5200 ####[facility] [address] [place], [place], [id number] Transesophageal echocardiogr am reportOrdered By: Leroy Hills on 08-24-2024 Study report [facility] Work Phone: [phone] Vancomycin, Trough Levelon 0 08-24-2024 VANCO, TROUGH 17.5 ug/mL High 5.0-15.0 [facility] Comment on above: Order Comment: Comme nts: Trough to be drawn 30 mins prior to scheduled dosePT CARE WILL CALL WHEN [id number] Result Comment: Arie mmended goal trough ranges [...] therapy recommended for serious lifethreatening infections include:- Rctvvkhvsj-Qzsosuxwdghp-Uimytslrb (Ventilator/Healtcare Associated)-SepsisPLEASE CONTACT PHARMACY SERVICES (#8326) FOR INTERPRETATIONOF RESULTS. Performed By: #### L 501.8820 ####[facility] [address] [place], [address] Basic Metabolic Profile (BMP )on 08-23-2024 BUN/CRE 21.5 RATIO High 10-20 [facility] Comment on above: Performed By: #### L 500.2500, L100.0100 ####[facility] [address] [place], [address] Calcium [Mass/Vol] 8.4 mg/dL Normal 7.6-11.0 [facility] Comment on above: Performed By: #### L 500.2500, L100.0100 ####[facility] [address] [place], [address] Chloride [Moles/Vol] 114 mmol/L High 98-108 [facility] Comment on above: Performed By: #### L 500.2500, L100.0100 ####[facility] [address] [place], [address] CO2 [Moles/Vol] 19.7 mmol/L Low 21.0-32.0 [facility] Comment on above: Performed By: #### L 500.2500, L100.0100 ####[facility] [address] [place], [address] Creatinine [Mass/Vol] 0.82 mg/dL Normal 0.70-1.20 [facility] Comment on above: Performed By: #### L 500.2500, L100.0100 ####[facility] [address] [place], [address] ECRCL 94.95 ml/min Normal 50-250 [facility] Comment on above: Performed By: #### L 500.2500, L100.0100 ####[facility] [address] [place], [address] GAP 9 Normal 5-15 [facility] Comment on above: Performed By: #### L 500.2500, L100.0100 ####[facility] [address] [place], [address] GFR/1.73 sq M.predicted among non-blacks MDRD (S/P/Bld) [Vol rate/Area] 99 mL/min/{1.73_m2} Normal >60 [facility] Comment on above: Result Comment: mL/m in/1.73m2 CKD-EPI Creatinine Equation (2020) Performed By: #### L 500.2500, L100.0100 ####[facility] [address] [place], [address] Glucose [Mass/Vol] 90 mg/dL Normal 70-99 [facility] Comment on above: Performed By: #### L 500.2500, L100.0100 ####[facility] [address] [place], [address] Potassium [Moles/Vol] 3.1 mmol/L Low 3.3-5.1 [facility] Comment on above: Performed By: #### L 500.2500, L100.0100 ####[facility] [address] [place], [address] Sodium [Moles/Vol] 143 mmol/L Normal 133-145 [facility] Comment on above: Performed By: #### L 500.2500, L100.0100 ####[facility] [address] [place], [address] Urea nitrogen [Mass/Vol] 18 mg/dL Normal 4-19 [facility] Comment on above: Performed By: #### L 500.2500, L100.0100 ####[facility] [address] [place], [address] Blood cultureOrdered By: Agustin Jackson on 08-23-2024 Bacteria identified Cx Nom (Bld) No growth in 5 days. [facility] Blood manual differential co mment interpretation (narrative result)Ordered By: Marciano Guerin on 08-23-2024 Manual differential comment Christ (Bld) [Interp] SCANNED [facility] CBC W/Diff, Automatedon 08-02 PLT EST MOD DEC Normal ADEQ [facility] Comment on above: Performed By: #### L 500.2500, L100.0100 ####[facility] [address] [place], [address] SMEAR COMMENT SCANNED Normal [facility] Comment on above: Performed By: #### L 500.2500, L100.0100 ####[facility] [address] [place], [place], [id number] Consultation - Infectious Dx on 08-23-2024 Consultation - Infectious Dx Normal [facility] EGD Reporton 08-23-2024 EGD Report Normal [facility] MR/POSTOP.ANEon 08-23-2024 MR/POSTOP.ANE Normal [facility] MR/VILMEHOQ1hm 08-23-2024 MR/POSTOPAN2 Normal [facility] Platelet estimateOrdered By: Marciano Guerin on 08-23-2024 Platelets LM Ql (Bld) MOD DEC ADEQ [facility] Vancomycin, Trough Levelon 0 08-23-2024 VANCO, TROUGH 18.2 ug/mL High 5.0-15.0 [facility] Comment on above: Order Comment: Comme nts: Trough to be drawn 30 mins prior to scheduled [id number] Result Comment: Arie mmended goal trough ranges [...] therapy recommended for serious lifethreatening infections include:- Uibrdykykm-Ltmrslhvcvfy-Sjzngrghe (Ventilator/Healtcare Associated)-SepsisPLEASE CONTACT PHARMACY SERVICES (#4556) FOR INTERPRETATIONOF RESULTS. Performed By: #### L 501.8820 ####[facility] [address] [place], [address] Basic Metabolic Profile (BMP )on 08-22-2024 BUN/CRE 21.3 RATIO High 10-20 [facility] Comment on above: Performed By: #### L 500.2500, L100.0100 ####[facility] [address] [place], [address] Calcium [Mass/Vol] 8.3 mg/dL Normal 7.6-11.0 [facility] Comment on above: Performed By: #### L 500.2500, L100.0100 ####[facility] [address] [place], [address] Chloride [Moles/Vol] 112 mmol/L High 98-108 [facility] Comment on above: Performed By: #### L 500.2500, L100.0100 ####[facility] [address] [place], [address] CO2 [Moles/Vol] 17.8 mmol/L Low 21.0-32.0 [facility] Comment on above: Performed By: #### L 500.2500, L100.0100 ####[facility] [address] [place], [address] Creatinine [Mass/Vol] 0.93 mg/dL Normal 0.70-1.20 [facility] Comment on above: Performed By: #### L 500.2500, L100.0100 ####[facility] [address] [place], [address] ECRCL 83.95 ml/min Normal 50-250 [facility] Comment on above: Performed By: #### L 500.2500, L100.0100 ####[facility] [address] [place], [address] GAP 9 Normal 5-15 [facility] Comment on above: Performed By: #### L 500.2500, L100.0100 ####[facility] [address] [place], [address] GFR/1.73 sq M.predicted among non-blacks MDRD (S/P/Bld) [Vol rate/Area] 93 mL/min/{1.73_m2} Normal >60 [facility] Comment on above: Result Comment: mL/m in/1.73m2 CKD-EPI Creatinine Equation (2020) Performed By: #### L 500.2500, L100.0100 ####[facility] [address] [place], [address] Glucose [Mass/Vol] 98 mg/dL Normal 70-99 [facility] Comment on above: Performed By: #### L 500.2500, L100.0100 ####[facility] [address] [place], [address] Potassium [Moles/Vol] 3.6 mmol/L Normal 3.3-5.1 [facility] Comment on above: Result Comment: Hemo lysis present, Results??could be affected.?? Performed By: #### L 500.2500, L100.0100 ####[facility] [address] [place], [address] Sodium [Moles/Vol] 139 mmol/L Normal 133-145 [facility] Comment on above: Performed By: #### L 500.2500, L100.0100 ####[facility] [address] [place], [address] Urea nitrogen [Mass/Vol] 20 mg/dL High 4-19 [facility] Comment on above: Performed By: #### L 500.2500, L100.0100 ####[facility] [address] [place], [address] CBC W/Diff, Automatedon 06-2 -2024 Absolute Lymph 0.86 X10 3/uL Normal 0.83-4.51 [facility] Comment on above: Performed By: #### L 100.0100 ####[facility] [address] [place], [address] Absolute Neut 3.2 X10 3/uL Normal 2.0-7.7 [facility] Comment on above: Performed By: #### L 100.0100 ####[facility] [address] [place], [address] Basophils/100 WBC (Bld) 0.2 % Normal 0-1 [facility] Comment on above: Performed By: #### L 100.0100 ####[facility] [address] [place], [address] Eosinophils/100 WBC (Bld) 4.5 % Normal 0-5 [facility] Comment on above: Performed By: #### L 100.0100 ####[facility] [address] [place], [address] Erythrocyte distribution width (RBC) [Ratio] 12.2 % Normal 11.6-14.6 [facility] Comment on above: Performed By: #### L 100.0100 ####[facility] [address] [place], [address] Hematocrit (Bld) [Volume fraction] 24.4 % Low 40-54 [facility] Comment on above: Performed By: #### L 100.0100 ####[facility] [address] [place], [address] Hemoglobin (Bld) [Mass/Vol] 8.0 g/dL Low 13.0-16.5 [facility] Comment on above: Performed By: #### L 100.0100 ####[facility] [address] [place], [address] IG% 0.200 Normal 0.0-0.9 [facility] Comment on above: Result Comment: IG% - Immature Granulocytes (promyelocytes, myelocytes andmetamyelocytes) > 1% indicates that a LEFT SHIFT is Present. Performed By: #### L 100.0100 ####[facility] [address] [place], [address] Lymphocytes/100 WBC (Bld) 18.6 % Low 19-41 [facility] Comment on above: Performed By: #### L 100.0100 ####[facility] [address] [place], [address] MCH (RBC) [Entitic mass] 30.5 pg Normal 27.0-32.0 [facility] Comment on above: Performed By: #### L 100.0100 ####[facility] [address] [place], [address] MCHC (RBC) [Mass/Vol] 32.8 g/dL Normal 32-36 [facility] Comment on above: Performed By: #### L 100.0100 ####[facility] [address] [place], [address] MCV (RBC) [Entitic vol] 93.1 fL Normal 80-94 [facility] Comment on above: Performed By: #### L 100.0100 ####[facility] [address] [place], [address] Monocytes/100 WBC (Bld) 8.0 % Normal 0-10 [facility] Comment on above: Performed By: #### L 100.0100 ####[facility] [address] [place], [address] Neutrophils/100 WBC (Bld) 68.5 % Normal 47-70 [facility] Comment on above: Performed By: #### L 100.0100 ####[facility] [address] [place], [address] Nucleated RBC (Bld) [#/Vol] 0 10*3/uL Normal 0-5 [facility] Comment on above: Performed By: #### L 100.0100 ####[facility] [address] [place], [address] Platelet mean volume (Bld) [Entitic vol] 10.7 fL Normal 6.2-12.0 [facility] Comment on above: Performed By: #### L 100.0100 ####[facility] [address] [place], [address] Platelets (Bld) [#/Vol] 101 10*3/uL Low 150-450 [facility] Comment on above: Performed By: #### L 100.0100 ####[facility] [address] [place], [address] RBC (Bld) [#/Vol] 2.62 10*6/uL Low 4.6-6.2 [facility] Comment on above: Performed By: #### L 100.0100 ####[facility] [address] [place], [address] RDW SD 41.3 fl Normal 35.1-43.9 [facility] Comment on above: Performed By: #### L 100.0100 ####[facility] [address] [place], [address] WBC (Bld) [#/Vol] 4.6 10*3/uL Normal 4.4-11.0 [facility] Comment on above: Performed By: #### L 100.0100 ####[facility] [address] [place], [address] Absolute Neut Normal 2.0-7.7 [facility] Comment on above: Result Comment: This specimen has been REJECTED due to Laboratory criteria:Clotted.DAVE has been notified of need of recollection.08/22/24519 [place] Performed By: #### L 500.2500, L100.0100 ####[facility] [address] [place], [address] HCT Normal 40-54 [facility] Comment on above: Result Comment: This specimen has been REJECTED due to Laboratory criteria:Clotted.DAVE has been notified of need of recollection.08/22/24519 [place] Performed By: #### L 500.2500, L100.0100 ####[facility] [address] [place], [address] HGB Normal 13.0-16.5 [facility] Comment on above: Result Comment: This specimen has been REJECTED due to Laboratory criteria:Clotted.DAVE has been notified of need of recollection.08/22/24519 [place] Performed By: #### L 500.2500, L100.0100 ####[facility] [address] [place], [address] MCH Normal 27.0-32.0 [facility] Comment on above: Result Comment: This specimen has been REJECTED due to Laboratory criteria:Clotted.DAVE has been notified of need of recollection.08/22/24519 [place] Performed By: #### L 500.2500, L100.0100 ####[facility] [address] [place], [address] MCHC Normal 32-36 [facility] Comment on above: Result Comment: This specimen has been REJECTED due to Laboratory criteria:Clotted.DAVE has been notified of need of recollection.08/22/24519 [place] Performed By: #### L 500.2500, L100.0100 ####[facility] [address] [place], [address] MCV Normal 80-94 [facility] Comment on above: Result Comment: This specimen has been REJECTED due to Laboratory criteria:Clotted.DAVE has been notified of need of recollection.08/22/24519 [place] Performed By: #### L 500.2500, L100.0100 ####[facility] [address] [place], [address] NEUT% Normal 47-70 [facility] Comment on above: Result Comment: This specimen has been REJECTED due to Laboratory criteria:Clotted.DAVE has been notified of need of recollection.08/22/24519 [place] Performed By: #### L 500.2500, L100.0100 ####[facility] [address] [facility] [address] PLT Normal 150-450 [facility] Comment on above: Result Comment: This specimen has been REJECTED due to Laboratory criteria:Clotted.DAVE has been notified of need of recollection.08/22/24519 [place] Performed By: #### L 500.2500, L100.0100 ####[facility] [address] [facility] [address] RBC Normal 4.6-6.2 [facility] Comment on above: Result Comment: This specimen has been REJECTED due to Laboratory criteria:Clotted.DAVE has been notified of need of recollection.08/22/24519 [place] Performed By: #### L 500.2500, L100.0100 ####[facility] [address] [place], [address] RDW CV Normal 11.6-14.6 [facility] Comment on above: Result Comment: This specimen has been REJECTED due to Laboratory criteria:Clotted.DAVE has been notified of need of recollection.08/22/24519 [place] Performed By: #### L 500.2500, L100.0100 ####[facility] [address] [place], [address] RDW SD Normal 35.1-43.9 [facility] Comment on above: Result Comment: This specimen has been REJECTED due to Laboratory criteria:Clotted.DAVE has been notified of need of recollection.08/22/24 0520 [place] Performed By: #### L 500.2500, L100.0100 ####[facility] [address] [place], [address] WBC Normal 4.4-11.0 [facility] Comment on above: Result Comment: This specimen has been REJECTED due to Laboratory criteria:Clotted.DAVE has been notified of need of recollection.08/22/24 0520 [place] Performed By: #### L 500.2500, L100.0100 ####[facility] [address] [place], [address] Basic Metabolic Profile (BMP )on 08-21-2024 BUN/CRE 25.7 RATIO High 10-20 [facility] Comment on above: Performed By: #### L 500.2500, L100.0100 ####[facility] [address] [place], [address] Calcium [Mass/Vol] 8.4 mg/dL Normal 7.6-11.0 [facility] Comment on above: Performed By: #### L 500.2500, L100.0100 ####[facility] [address] [place], [address] Chloride [Moles/Vol] 115 mmol/L High 98-108 [facility] Comment on above: Performed By: #### L 500.2500, L100.0100 ####[facility] [address] [place], [address] CO2 [Moles/Vol] 20.5 mmol/L Low 21.0-32.0 [facility] Comment on above: Performed By: #### L 500.2500, L100.0100 ####[facility] [address] [place], [address] Creatinine [Mass/Vol] 1.01 mg/dL Normal 0.70-1.20 [facility] Comment on above: Performed By: #### L 500.2500, L100.0100 ####[facility] [address] [place], [address] ECRCL 77.30 ml/min Normal 50-250 [facility] Comment on above: Performed By: #### L 500.2500, L100.0100 ####[facility] [address] [place], [address] GAP 8 Normal 5-15 [facility] Comment on above: Performed By: #### L 500.2500, L100.0100 ####[facility] [address] [place], [address] GFR/1.73 sq M.predicted among non-blacks MDRD (S/P/Bld) [Vol rate/Area] 84 mL/min/{1.73_m2} Normal >60 [facility] Comment on above: Result Comment: mL/m in/1.73m2 CKD-EPI Creatinine Equation (2020) Performed By: #### L 500.2500, L100.0100 ####[facility] [address] [place], [address] Glucose [Mass/Vol] 94 mg/dL Normal 70-99 [facility] Comment on above: Performed By: #### L 500.2500, L100.0100 ####[facility] [address] [place], [address] Potassium [Moles/Vol] 3.7 mmol/L Normal 3.3-5.1 [facility] Comment on above: Result Comment: Hemo lysis present, Results??could be affected.?? Performed By: #### L 500.2500, L100.0100 ####[facility] [address] [place], [address] Sodium [Moles/Vol] 143 mmol/L Normal 133-145 [facility] Comment on above: Performed By: #### L 500.2500, L100.0100 ####[facility] [address] [place], [address] Urea nitrogen [Mass/Vol] 26 mg/dL High 4-19 [facility] Comment on above: Performed By: #### L 500.2500, L100.0100 ####[facility] [address] [place], [address] CBC + diff autoon --2024 CBC W Auto Differential panel (Bld) [facility] CBC W/Diff, Automatedon 08-02 Absolute Lymph 1.00 X10 3/uL Normal 0.83-4.51 [facility] Comment on above: Performed By: #### L 100.0100 ####[facility] [address] [place], [address] Absolute Neut 3.9 X10 3/uL Normal 2.0-7.7 [facility] Comment on above: Performed By: #### L 100.0100 ####[facility] [address] [place], [address] Basophils/100 WBC (Bld) 0.2 % Normal 0-1 [facility] Comment on above: Performed By: #### L 100.0100 ####[facility] [address] [place], [address] Eosinophils/100 WBC (Bld) 2.9 % Normal 0-5 [facility] Comment on above: Performed By: #### L 100.0100 ####[facility] [address] [place], [address] Erythrocyte distribution width (RBC) [Ratio] 12.6 % Normal 11.6-14.6 [facility] Comment on above: Performed By: #### L 100.0100 ####[facility] [address] [place], [address] Hematocrit (Bld) [Volume fraction] 22.1 % Low 40-54 [facility] Comment on above: Performed By: #### L 100.0100 ####[facility] [address] [place], [address] Hemoglobin (Bld) [Mass/Vol] 7.2 g/dL Low 13.0-16.5 [facility] Comment on above: Performed By: #### L 100.0100 ####[facility] [address] [place], [address] IG% 0.500 Normal 0.0-0.9 [facility] Comment on above: Result Comment: IG% - Immature Granulocytes (promyelocytes, myelocytes andmetamyelocytes) > 1% indicates that a LEFT SHIFT is Present. Performed By: #### L 100.0100 ####[facility] [address] [place], [address] Lymphocytes/100 WBC (Bld) 18.2 % Low 19-41 [facility] Comment on above: Performed By: #### L 100.0100 ####[facility] [address] [place], [address] MCH (RBC) [Entitic mass] 30.4 pg Normal 27.0-32.0 [facility] Comment on above: Performed By: #### L 100.0100 ####[facility] [address] [place], [address] MCHC (RBC) [Mass/Vol] 32.6 g/dL Normal 32-36 [facility] Comment on above: Performed By: #### L 100.0100 ####[facility] [address] [place], [address] MCV (RBC) [Entitic vol] 93.2 fL Normal 80-94 [facility] Comment on above: Performed By: #### L 100.0100 ####[facility] [address] [place], [address] Monocytes/100 WBC (Bld) 7.8 % Normal 0-10 [facility] Comment on above: Performed By: #### L 100.0100 ####[facility] [address] [place], [address] Neutrophils/100 WBC (Bld) 70.4 % High 47-70 [facility] Comment on above: Performed By: #### L 100.0100 ####[facility] [address] [place], [address] Nucleated RBC (Bld) [#/Vol] 0 10*3/uL Normal 0-5 [facility] Comment on above: Performed By: #### L 100.0100 ####[facility] [address] [place], [address] Platelet mean volume (Bld) [Entitic vol] 10.8 fL Normal 6.2-12.0 [facility] Comment on above: Performed By: #### L 100.0100 ####[facility] [address] [place], [address] Platelets (Bld) [#/Vol] 94 10*3/uL Low 150-450 [facility] Comment on above: Performed By: #### L 100.0100 ####[facility] [address] [place], [address] RBC (Bld) [#/Vol] 2.37 10*6/uL Low 4.6-6.2 [facility] Comment on above: Performed By: #### L 100.0100 ####[facility] [address] [place], [address] RDW SD 42.8 fl Normal 35.1-43.9 [facility] Comment on above: Performed By: #### L 100.0100 ####[facility] [address] [place], [address] WBC (Bld) [#/Vol] 5.5 10*3/uL Normal 4.4-11.0 [facility] Comment on above: Performed By: #### L 100.0100 ####[facility] [address] [place], [address] Absolute Neut Normal 2.0-7.7 [facility] Comment on above: Result Comment: This specimen has been REJECTED due to Laboratory criteria:Clotted.ADY FRANZ has been notified of need of recollection.08/21/24 1548 Gissel Maye Performed By: #### L 500.2500, L100.0100 ####[facility] [address] [place], [address] HCT Normal 40-54 [facility] Comment on above: Result Comment: This specimen has been REJECTED due to Laboratory criteria:Clotted.ADY FRANZ has been notified of need of recollection.08/21/24 1548 Gissel Maye Performed By: #### L 500.2500, L100.0100 ####[facility] [address] [place], [address] HGB Normal 13.0-16.5 [facility] Comment on above: Result Comment: This specimen has been REJECTED due to Laboratory criteria:Clotted.ADY FRANZ has been notified of need of recollection.08/21/24 1548 Gissel Maye Performed By: #### L 500.2500, L100.0100 ####[facility] [address] [place], [address] MCH Normal 27.0-32.0 [facility] Comment on above: Result Comment: This specimen has been REJECTED due to Laboratory criteria:Clotted.ADY FRANZ has been notified of need of recollection.08/21/24 1548 Gissel Maye Performed By: #### L 500.2500, L100.0100 ####[facility] [address] [place], [address] MCHC Normal 32-36 [facility] Comment on above: Result Comment: This specimen has been REJECTED due to Laboratory criteria:Clotted.ADY FRANZ has been notified of need of recollection.08/21/24 1548 Gissel Maye Performed By: #### L 500.2500, L100.0100 ####[facility] [address] [place], [address] MCV Normal 80-94 [facility] Comment on above: Result Comment: This specimen has been REJECTED due to Laboratory criteria:Clotted.ADY FRANZ has been notified of need of recollection.08/21/24 1548 Gissel Maye Performed By: #### L 500.2500, L100.0100 ####[facility] [address] [place], [address] NEUT% Normal 47-70 [facility] Comment on above: Result Comment: This specimen has been REJECTED due to Laboratory criteria:Clotted.ADY FRANZ has been notified of need of recollection.08/21/24 1548 Gissel Maye Performed By: #### L 500.2500, L100.0100 ####[facility] [address] [place], [address] PLT Normal 150-450 [facility] Comment on above: Result Comment: This specimen has been REJECTED due to Laboratory criteria:Clotted.ADY FRANZ has been notified of need of recollection.08/21/24 1548 Gissel Maye Performed By: #### L 500.2500, L100.0100 ####[facility] [address] [place], [address] RBC Normal 4.6-6.2 [facility] Comment on above: Result Comment: This specimen has been REJECTED due to Laboratory criteria:Clotted.ADY FRANZ has been notified of need of recollection.08/21/24 1548 Gissel Maye Performed By: #### L 500.2500, L100.0100 ####[facility] [address] [place], [address] RDW CV Normal 11.6-14.6 [facility] Comment on above: Result Comment: This specimen has been REJECTED due to Laboratory criteria:Clotted.ADY FRANZ has been notified of need of recollection.08/21/24 1548 Gissel Maye Performed By: #### L 500.2500, L100.0100 ####[facility] [address] [place], [address] RDW SD Normal 35.1-43.9 [facility] Comment on above: Result Comment: This specimen has been REJECTED due to Laboratory criteria:Clotted.ADY FRANZ has been notified of need of recollection.08/21/24 1548 Gissel Maye Performed By: #### L 500.2500, L100.0100 ####[facility] [address] [place], [address] WBC Normal 4.4-11.0 [facility] Comment on above: Result Comment: This specimen has been REJECTED due to Laboratory criteria:Clotted.ADY FRANZ has been notified of need of recollection.08/21/24 1548 Gissel Maye Performed By: #### L 500.2500, L100.0100 ####[facility] [address] [place], [address] M8200.1000on 08-21-2024 M8200.1000 Normal [facility] Comment on above: Performed By: #### M 8200.1000 ####[facility] [address] [place], [address] Nasal methicillin resistant Staphylococcus aureus (MRSA) DNA detection by PCROrdered By: Marciano Guerin on 08-21-2024 MRSA DNA KYLIE+probe Ql (Nose) [facility] Basic Metabolic Profile (BMP )on 08-20-2024 BUN/CRE 18.1 RATIO Normal 10-20 [facility] Comment on above: Performed By: #### L 100.0100, L500.2500 ####[facility] [address] [place], [address] Calcium [Mass/Vol] 8.8 mg/dL Normal 7.6-11.0 [facility] Comment on above: Performed By: #### L 100.0100, L500.2500 ####[facility] [address] [place], [address] Chloride [Moles/Vol] 120 mmol/L High 98-108 [facility] Comment on above: Performed By: #### L 100.0100, L500.2500 ####[facility] [address] [place], [address] CO2 [Moles/Vol] 20.9 mmol/L Low 21.0-32.0 [facility] Comment on above: Performed By: #### L 100.0100, L500.2500 ####[facility] [address] [place], [address] Creatinine [Mass/Vol] 0.99 mg/dL Normal 0.70-1.20 [facility] Comment on above: Performed By: #### L 100.0100, L500.2500 ####[facility] [address] [place], [address] ECRCL 74.00 ml/min Normal 50-250 [facility] Comment on above: Performed By: #### L 100.0100, L500.2500 ####[facility] [address] [place], [address] GAP 9 Normal 5-15 [facility] Comment on above: Performed By: #### L 100.0100, L500.2500 ####[facility] [address] [place], [address] GFR/1.73 sq M.predicted among non-blacks MDRD (S/P/Bld) [Vol rate/Area] 86 mL/min/{1.73_m2} Normal >60 [facility] Comment on above: Result Comment: mL/m in/1.73m2 CKD-EPI Creatinine Equation (2020) Performed By: #### L 100.0100, L500.2500 ####[facility] [address] [place], [address] Glucose [Mass/Vol] 120 mg/dL High 70-99 [facility] Comment on above: Performed By: #### L 100.0100, L500.2500 ####[facility] [address] [place], [address] Potassium [Moles/Vol] 3.8 mmol/L Normal 3.3-5.1 [facility] Comment on above: Performed By: #### L 100.0100, L500.2500 ####[facility] [address] [place], [address] Sodium [Moles/Vol] 150 mmol/L High 133-145 [facility] Comment on above: Performed By: #### L 100.0100, L500.2500 ####[facility] [address] [place], [address] Urea nitrogen [Mass/Vol] 18 mg/dL Normal 4-19 [facility] Comment on above: Performed By: #### L 100.0100, L500.2500 ####[facility] [address] [place], [address] CBC W/Diff, Automatedon 06-2 0-2024 Absolute Lymph 0.61 X10 3/uL Low 0.83-4.51 [facility] Comment on above: Performed By: #### L 100.0100, L500.2500 ####[facility] [address] [place], [address] Absolute Neut 4.4 X10 3/uL Normal 2.0-7.7 [facility] Comment on above: Performed By: #### L 100.0100, L500.2500 ####[facility] [address] [place], [address] Basophils/100 WBC (Bld) 0.2 % Normal 0-1 [facility] Comment on above: Performed By: #### L 100.0100, L500.2500 ####[facility] [address] [place], [address] Eosinophils/100 WBC (Bld) 0.2 % Normal 0-5 [facility] Comment on above: Performed By: #### L 100.0100, L500.2500 ####[facility] [address] [place], [address] Erythrocyte distribution width (RBC) [Ratio] 12.6 % Normal 11.6-14.6 [facility] Comment on above: Performed By: #### L 100.0100, L500.2500 ####[facility] [address] [place], [address] Hematocrit (Bld) [Volume fraction] 25.4 % Low 40-54 [facility] Comment on above: Performed By: #### L 100.0100, L500.2500 ####[facility] [address] [place], [address] Hemoglobin (Bld) [Mass/Vol] 8.3 g/dL Low 13.0-16.5 [facility] Comment on above: Performed By: #### L 100.0100, L500.2500 ####[facility] [address] [place], [address] IG% 0.400 Normal 0.0-0.9 [facility] Comment on above: Result Comment: IG% - Immature Granulocytes (promyelocytes, myelocytes andmetamyelocytes) > 1% indicates that a LEFT SHIFT is Present. Performed By: #### L 100.0100, L500.2500 ####[facility] [address] [place], [address] Lymphocytes/100 WBC (Bld) 11.2 % Low 19-41 [facility] Comment on above: Performed By: #### L 100.0100, L500.2500 ####[facility] [address] [place], [address] MCH (RBC) [Entitic mass] 30.5 pg Normal 27.0-32.0 [facility] Comment on above: Performed By: #### L 100.0100, L500.2500 ####[facility] [address] [place], [address] MCHC (RBC) [Mass/Vol] 32.7 g/dL Normal 32-36 [facility] Comment on above: Performed By: #### L 100.0100, L500.2500 ####[facility] [address] [place], [address] MCV (RBC) [Entitic vol] 93.4 fL Normal 80-94 [facility] Comment on above: Performed By: #### L 100.0100, L500.2500 ####[facility] [address] [place], [address] Monocytes/100 WBC (Bld) 6.8 % Normal 0-10 [facility] Comment on above: Performed By: #### L 100.0100, L500.2500 ####[facility] [address] [place], [address] Neutrophils/100 WBC (Bld) 81.2 % High 47-70 [facility] Comment on above: Performed By: #### L 100.0100, L500.2500 ####[facility] [address] [place], [address] Nucleated RBC (Bld) [#/Vol] 0 10*3/uL Normal 0-5 [facility] Comment on above: Performed By: #### L 100.0100, L500.2500 ####[facility] [address] [place], [address] Platelet mean volume (Bld) [Entitic vol] 10.5 fL Normal 6.2-12.0 [facility] Comment on above: Performed By: #### L 100.0100, L500.2500 ####[facility] [address] [place], [address] Platelets (Bld) [#/Vol] 101 10*3/uL Low 150-450 [facility] Comment on above: Performed By: #### L 100.0100, L500.2500 ####[facility] [address] [place], [address] RBC (Bld) [#/Vol] 2.72 10*6/uL Low 4.6-6.2 [facility] Comment on above: Performed By: #### L 100.0100, L500.2500 ####[facility] [address] [place], [address] RDW SD 42.9 fl Normal 35.1-43.9 [facility] Comment on above: Performed By: #### L 100.0100, L500.2500 ####[facility] [address] [place], [address] WBC (Bld) [#/Vol] 5.4 10*3/uL Normal 4.4-11.0 [facility] Comment on above: Performed By: #### L 100.0100, L500.2500 ####[facility] [address] [place], [place], [address] MR/POSTOP.ANEon 08-20-2024 MR/POSTOP.ANE Normal [facility] MR/NHNWWKKS8uy 08-20-2024 MR/POSTOPAN2 Normal [facility] Operative Reporton Operative Report Normal [facility] Type AND Screenon 08-20-2024 Ab SCREEN GEL Negative Normal [facility] Comment on above: Order Comment: S Performed By: #### B TS ####[facility] [address] [facility] [place], [place], [id number] Vancomycin, Trough Levelon 0 08-20-2024 VANCO, TROUGH 10.2 ug/mL Normal 5.0-15.0 [facility] Comment on above: Order Comment: Comme nts: Trough to be drawn 30 mins prior to scheduled [id number] Result Comment: Arie mmended goal trough ranges [...] therapy recommended for serious lifethreatening infections include:- Ncbrxewglc-Xqlawbirmljl-Mestajvog (Ventilator/Healtcare Associated)-SepsisPLEASE CONTACT PHARMACY SERVICES (#7629) FOR INTERPRETATIONOF RESULTS. Performed By: #### L 501.8873 ####[facility] [address] [facility] [address] [place], [place], [address] Abdomen/Pelvis W IV Cont ONL Yon 08-19-2024 Abdomen/Pelvis W IV Cont ONLY Normal [facility] Alcohol, Blood (Medical)-Ser umon 08-19-2024 SERUM ETOH < 10.1 Normal <=10.0 [facility] Comment on above: Order Comment: Blood cultures x2, from two different sites Result Comment: This test is for medical purposes only. The legaldefinition of intoxication varies according to local law. Performed By: #### L 501.9520, L501.9985, L505.5000, L501.8100, L300.8000, L501.9100 ####[facility] [address] [place], [address] Amphetamine detection with 1 000 ng/mL as cutoffOrdered By: Jose Olvera on 08-19-2024 Amphetamines Screen method >1000 ng/mL Ql (U) Negative < 200 ng/mL [facility] Basic Metabolic Profile (BMP )on 08-19-2024 BUN/CRE 15.0 RATIO Normal 10-20 [facility] Comment on above: Performed By: #### L 500.2500, L100.0100 ####[facility] [address] [place], [address] Calcium [Mass/Vol] 8.3 mg/dL Normal 7.6-11.0 [facility] Comment on above: Performed By: #### L 500.2500, L100.0100 ####[facility] [address] [place], [address] Chloride [Moles/Vol] 118 mmol/L High 98-108 [facility] Comment on above: Performed By: #### L 500.2500, L100.0100 ####[facility] [address] [place], [address] CO2 [Moles/Vol] 19.3 mmol/L Low 21.0-32.0 [facility] Comment on above: Performed By: #### L 500.2500, L100.0100 ####[facility] [address] [place], [address] Creatinine [Mass/Vol] 0.94 mg/dL Normal 0.70-1.20 [facility] Comment on above: Performed By: #### L 500.2500, L100.0100 ####[facility] [address] [place], [address] ECRCL 78.16 ml/min Normal 50-250 [facility] Comment on above: Performed By: #### L 500.2500, L100.0100 ####[facility] [address] [place], [address] GAP 8 Normal 5-15 [facility] Comment on above: Performed By: #### L 500.2500, L100.0100 ####[facility] [address] [place], [address] GFR/1.73 sq M.predicted among non-blacks MDRD (S/P/Bld) [Vol rate/Area] 91 mL/min/{1.73_m2} Normal >60 [facility] Comment on above: Result Comment: mL/m in/1.73m2 CKD-EPI Creatinine Equation (2020) Performed By: #### L 500.2500, L100.0100 ####[facility] [address] [place], [address] Glucose [Mass/Vol] 128 mg/dL High 70-99 [facility] Comment on above: Performed By: #### L 500.2500, L100.0100 ####[facility] [address] [place], [address] Potassium [Moles/Vol] 3.7 mmol/L Normal 3.3-5.1 [facility] Comment on above: Performed By: #### L 500.2500, L100.0100 ####[facility] [address] [place], [address] Sodium [Moles/Vol] 145 mmol/L Normal 133-145 [facility] Comment on above: Performed By: #### L 500.2500, L100.0100 ####[facility] [address] [place], [address] Urea nitrogen [Mass/Vol] 14 mg/dL Normal 4-19 [facility] Comment on above: Performed By: #### L 500.2500, L100.0100 ####[facility] [address] [place], [address] Brain/Head without Contrasto n 08-19-2024 Brain/Head without Contrast Normal [facility] CBC W/Diff, Automatedon 08-01 PLT EST MOD DEC Normal ADEQ [facility] Comment on above: Performed By: #### L 500.2500, L100.0100 ####[facility] [address] [place], [address] SMEAR COMMENT SCANNED Normal [facility] Comment on above: Performed By: #### L 500.2500, L100.0100 ####[facility] [address] [place], [address] CTA Chest W/WO Contraston CTA Chest W/WO Contrast Normal [facility] Consultation - Intensiviston 08-19-2024 Consultation - Cold Roll Packer Sheet Iron Normal [facility] D-Dimer Quantitative (DVT/PE )on 08-19-2024 D-DIMER QUANT 9.09 FEU/ug/m Invalid Interpretation Code 0.27-0.49 [facility] Comment on above: Result Comment: D-Di nghia ELEVATED (>0.49): Additional studies and clinicalassessments are indicated to conclude diagnosis of:Deep Vein Thrombosis (DVT) or Pulmonary Embolism (PE)CRITICAL VALUE CALLED TO ILYA GE08/19/24 0049 Gissel Villavicencio.RESULTS READ BACK BY SAME. Performed By: #### L 501.9520, L501.9985, L505.5000, L501.8100, L300.8000, L501.9100 ####[facility] [address] [place], [address] Echo Completeon 08-19-2024 Echo Complete Normal [facility] Echocardiogram study reportO rdered By: Hardik Cardenas on 08-19-2024 Study report [facility] Work Phone: Femur Min 2 Viewson 08-20-19 25 Femur Min 2 Views Normal [facility] Hemoglobin A1con 08-19-2024 HbA1c (Bld) [Mass fraction] 5.2 % Normal <=5.6 [facility] Comment on above: Result Comment: Norm al < 5.7 % Prediabetic 5.7 - 6.4 % Diabetic >or= 6.5 % Please note range changes. Performed By: #### L 501.9520, L501.9985, L505.5000, L501.8100, L300.8000, L501.9100 ####[facility] [address] [place], [address] L509.6001on 08-19-2024 CORTISOL 16.10 ug/dL Normal 6.02-18.40 [facility] Comment on above: Performed By: #### L 509.6001 ####[facility] [address] [place], [address] Lithiumon 08-19-2024 LI 0.82 mmol/L Normal 0.60-1.20 [facility] Comment on above: Order Comment: FRANCISCO GE,MARTINEZ SHELTER PT SHOULD HAVE GOT DONE BETWEEN [id number] Performed By: #### L 501.9060 ####[facility] [address] [place], [place], [address] No Panel InformationOrdered By: Jose Olvera on 08-19-2024 Urine Buprenorphine Qualitative Negative < 200 ng/mL [facility] Urine Oxycodone Screen Negative < 100 ng/mL [facility] Negative < 200 ng/mL [facility] Quantitative urine opiates m easurementOrdered By: Jose Olvera on 08-19-2024 Opiates Ql (U) Negative < 300 ng/mL [facility] RESPIRATORY PANEL MOLECULARo n 08-19-2024 RP PANEL Normal [facility] Comment on above: Performed By: #### M 100.638 ####[facility] [address] [place], [place], [address] Respiratory pathogens detect ion panel by molecular detection methodOrdered By: Robert Andrea on 08-19-2024 Respiratory pathogens DNA and RNA panel KYLIE+probe (Resp) [facility] Screening urine fentanyl vy surementOrdered By: Jose Olvera on 08-19-2024 fentaNYL Screen Ql (U) Negative [facility] Serum or plasma cortisol vy surement (mass/volume)Ordered By: Robert Andrea on 08-19-2024 Cortisol [Mass/Vol] 16.10 ug/dL 6.02-18.40 [facility] Thyroid Stim Hormone (TSH)on 08-19-2024 TSH 1.040 uIU/mL Normal 0.300-4.200 [facility] Comment on above: Performed By: #### L 501.9520, L501.9985, L505.5000, L501.8100, L300.8000, L501.9100 ####[facility] [address] [facility] [phone] Urine Drug Screen (VISTA)on 08-19-2024 AMPHETAMINES Negative Normal <1000 ng/mL [facility] Comment on above: Order Comment: U Performed By: #### L 505.5000 ####[facility] [address] [place], [address] BARBITIURATES Negative Normal < 200 ng/mL [facility] Comment on above: Order Comment: U Performed By: #### L 505.5000 ####[facility] [address] [place], [address] BENZODIAZIPINE Positive Normal < 200 ng/mL [facility] Comment on above: Order Comment: U Result Comment: If c onfirmation testing is needed, a separate order will berequired to send out testing to the reference laboratory. Performed By: #### L 505.5000 ####[facility] [address] [place], [address] BUP Ur Drug Scr Negative Normal < 200 ng/mL [facility] Comment on above: Order Comment: U Performed By: #### L 505.5000 ####[facility] [address] [place], [address] COCAINE Negative Normal < 300 ng/mL [facility] Comment on above: Order Comment: U Performed By: #### L 505.5000 ####[facility] [address] [place], [address] Fentanyl Negative Normal [facility] Comment on above: Order Comment: U Performed By: #### L 505.5000 ####[facility] [address] [place], [address] METHADONE Negative Normal < 300 ng/mL [facility] Comment on above: Order Comment: U Performed By: #### L 505.5000 ####[facility] [address] [place], [address] OPIATES Negative Normal < 300 ng/mL [facility] Comment on above: Order Comment: U Performed By: #### L 505.5000 ####[facility] [address] [place], [address] OXYCODONE Negative Normal < 100 ng/mL [facility] Comment on above: Order Comment: U Performed By: #### L 505.5000 ####[facility] [address] [place], [address] PCP Negative Normal < 25 ng/mL [facility] Comment on above: Order Comment: U Performed By: #### L 505.5000 ####[facility] [address] [place], [address] THC Negative Normal < 50 ng/mL [facility] Comment on above: Order Comment: U Performed By: #### L 505.5000 ####[facility] [address] [place], [address] Urine benzodiazepine levelOr dered By: Jose Olvera on 08-19-2024 Benzodiazepines Ql (U) Positive < 200 ng/mL [facility] Comment on above: If confirmation test ing is needed, a separate order will be required to send out testing to the reference laboratory. Urine cocaine levelOrdered B y: Jose Olvera on 08-19-2024 Cocaine Ql (U) Negative < 300 ng/mL [facility] Urine jphfy-0-mdlqzyoapipwry abinol (THC) measurementOrdered By: Jose Olvera on 08-19-2024 Cannabinoids Screen Ql (U) Negative < 50 ng/mL [facility] Urine phencyclidine (PCP) de tectionOrdered By: Jose Olvera on 08-19-2024 Phencyclidine Ql (U) Negative < 25 ng/mL [facility] Valproic Acid (Depakene) Lev miguelangel 08-19-2024 VALPROIC ACID 17 ug/mL Low 50-100 [facility] Comment on above: Result Comment: Valp roic Acid concentrations >100 ug/mL are potentiallytoxic. Performed By: #### L 501.9576, L501.9985, L505.5000, L501.8100, L300.8000, L501.9100 ####[facility] [address] [place], [place], [address] Venous Duplex US - Roque Extre mon 08-19-2024 Venous Duplex US - Roque Extrem Normal [facility] Venous duplex ultrasound rep ortOrdered By: Tyler Zuleta on 08-19-2024 US Vein [facility] Other Phone: Vitamin B12on 08-19-2024 Cobalamin (Vitamin B12) [Mass/Vol] 620 pg/mL Normal 180-914 [facility] Comment on above: Performed By: #### L 503.0106 ####[facility] [address] [place], [place], [id number] Vitamin B12 ser/plasOrdered By: Robert Andrea on 08-19-2024 Cobalamin (Vitamin B12) [Mass/Vol] 620 pg/mL 180-914 [facility] 12 Lead EKGon 08-18-2024 12 Lead EKG Normal [facility] Absolute lymphocyte countOrd ered By: Jose Olvera on 08-18-2024 Lymphocytes Auto (Unsp spec) [#/Vol] 0.85 10*3/uL 0.83-4.51 [facility] Absolute neutrophil countOrd ered By: Jose Olvera on 08-18-2024 Neutrophils (Bld) [#/Vol] 6.2 10*3/uL 2.0-7.7 [facility] Anion gap in Serum or Plasma Ordered By: Jose Olvera on 08-18-2024 Anion gap [Moles/Vol] 8 mmol/L 5-15 [facility] Assessment of wrist artery p atency prior to arterial punctureOrdered By: Jose Olvera on 08-18-2024 Arterial patency Wrist artery --pre arterial puncture Positive [facility] Automated lymphocyte count a s percentage of total leukocytesOrdered By: Jose Olvera on 08-18-2024 Lymphocytes/100 WBC Auto (Unsp spec) 11.0 % Low 19-41 [facility] BUN/creatinine ratioOrdered By: Jose Olvera on 08-18-2024 Urea nitrogen/Creatinine [Mass ratio] 18.2 mg/mg 10-20 [facility] Basophil percentageOrdered B y: Jose Olvera on 08-18-2024 Basophils/100 WBC (Bld) 0.1 % 0-1 [facility] Bilirubin Test strip Ql (U)O rdered By: Jose Olvera on 08-18-2024 Bilirubin Ql (U) Negative Negative [facility] Bilirubin, totalOrdered By: Jose Olvera on 08-18-2024 Bilirubin [Mass/Vol] 0.46 mg/dL 0.00-1.30 [facility] Positive Normal [facility] Comment on above: Performed By: #### L 9000.0800 ####[facility] [address] [place], [place], [id number] Base excess Calc (Bld) [Moles/Vol] 2 mmol/L Normal -2 to +2 [facility] Comment on above: Performed By: #### L 9000.0800 ####[facility] [address] [place], [place], [id number] Blood Gas Type ART Normal [facility] Comment on above: Performed By: #### L 9000.0800 ####[facility] [address] [place], [address] CO2 [Moles/Vol] 28 mmol/L Normal [facility] Comment on above: Performed By: #### L 9000.0800 ####[facility] [address] [place], [address] HCO3 (Bld) [Moles/Vol] 26.5 mmol/L High 22-26 [facility] Comment on above: Performed By: #### L 9000.0800 ####[facility] [address] [place], [address] Mode Not entered Normal [facility] Comment on above: Performed By: #### L 9000.0800 ####[facility] [address] [place], [address] O2 Delivery Dev Room Air Normal [facility] Comment on above: Performed By: #### L 9000.0800 ####[facility] [address] [place], [address] pCO2 40.8 mmHg Normal 35-45 [facility] Comment on above: Performed By: #### L 9000.0800 ####[facility] [address] [place], [address] pH (Bld) 7.42 [pH] Normal 7.35-7.45 [facility] Comment on above: Performed By: #### L 9000.0800 ####[facility] [address] [place], [address] PO2 68 mmHG Low 75-100 [facility] Comment on above: Performed By: #### L 9000.0800 ####[facility] [address] [place], [address] SITE L Radial Normal [facility] Comment on above: Performed By: #### L 9000.0800 ####[facility] [address] [place], [address] SO2 94 Low 95-99 [facility] Comment on above: Performed By: #### L 9000.0800 ####[facility] [address] [place], [address] Blood base excess determinat ionOrdered By: Jose Olvera on 08-18-2024 Base excess Calc (BldV) [Moles/Vol] 2 mmol/L -2-2 [facility] Blood bicarbonate measuremen tOrdered By: Jose Olvera on 08-18-2024 HCO3 (Bld) [Moles/Vol] 26.5 mmol/L High 22-26 [facility] Blood cultureOrdered By: Jose Olvera on 08-18-2024 Bacteria identified Cx Nom (Bld) Meth. resistant Staph. aureus Abnormal [facility] Bacteria identified Cx Nom (Bld) No growth in 5 days. [facility] CBC W/Diff, Automatedon - Absolute Lymph 0.85 X10 3/uL Normal 0.83-4.51 [facility] Comment on above: Performed By: #### L 100.0100, L500.4050 ####[facility] [address] [place], [address] Absolute Neut 6.2 X10 3/uL Normal 2.0-7.7 [facility] Comment on above: Performed By: #### L 100.0100, L500.4050 ####[facility] [address] [place], [address] Basophils/100 WBC (Bld) 0.1 % Normal 0-1 [facility] Comment on above: Performed By: #### L 100.0100, L500.4050 ####[facility] [address] [place], [address] Eosinophils/100 WBC (Bld) 1.3 % Normal 0-5 [facility] Comment on above: Performed By: #### L 100.0100, L500.4050 ####[facility] [address] [place], [address] Erythrocyte distribution width (RBC) [Ratio] 12.3 % Normal 11.6-14.6 [facility] Comment on above: Performed By: #### L 100.0100, L500.4050 ####[facility] [address] [place], [address] Hematocrit (Bld) [Volume fraction] 29.7 % Low 40-54 [facility] Comment on above: Performed By: #### L 100.0100, L500.4050 ####[facility] [address] [place], [address] Hemoglobin (Bld) [Mass/Vol] 9.9 g/dL Low 13.0-16.5 [facility] Comment on above: Performed By: #### L 100.0100, L500.4050 ####[facility] [address] [place], [address] IG% 0.400 Normal 0.0-0.9 [facility] Comment on above: Result Comment: IG% - Immature Granulocytes (promyelocytes, myelocytes andmetamyelocytes) > 1% indicates that a LEFT SHIFT is Present. Performed By: #### L 100.0100, L500.4050 ####[facility] [address] [place], [address] Lymphocytes/100 WBC (Bld) 11.0 % Low 19-41 [facility] Comment on above: Performed By: #### L 100.0100, L500.4050 ####[facility] [address] [place], [address] MCH (RBC) [Entitic mass] 30.7 pg Normal 27.0-32.0 [facility] Comment on above: Performed By: #### L 100.0100, L500.4050 ####[facility] [address] [place], [address] MCHC (RBC) [Mass/Vol] 33.3 g/dL Normal 32-36 [facility] Comment on above: Performed By: #### L 100.0100, L500.4050 ####[facility] [address] [place], [address] MCV (RBC) [Entitic vol] 92.2 fL Normal 80-94 [facility] Comment on above: Performed By: #### L 100.0100, L500.4050 ####[facility] [address] [place], [address] Monocytes/100 WBC (Bld) 6.7 % Normal 0-10 [facility] Comment on above: Performed By: #### L 100.0100, L500.4050 ####[facility] [address] [place], [address] Neutrophils/100 WBC (Bld) 80.5 % High 47-70 [facility] Comment on above: Performed By: #### L 100.0100, L500.4050 ####[facility] [address] [place], [address] Nucleated RBC (Bld) [#/Vol] 0 10*3/uL Normal 0-5 [facility] Comment on above: Performed By: #### L 100.0100, L500.4050 ####[facility] [address] [place], [address] Platelet mean volume (Bld) [Entitic vol] 10.8 fL Normal 6.2-12.0 [facility] Comment on above: Performed By: #### L 100.0100, L500.4050 ####[facility] [address] [place], [address] Platelets (Bld) [#/Vol] 114 10*3/uL Low 150-450 [facility] Comment on above: Performed By: #### L 100.0100, L500.4050 ####[facility] [address] [place], [address] RBC (Bld) [#/Vol] 3.22 10*6/uL Low 4.6-6.2 [facility] Comment on above: Performed By: #### L 100.0100, L500.4050 ####[facility] [address] [place], [address] RDW SD 41.1 fl Normal 35.1-43.9 [facility] Comment on above: Performed By: #### L 100.0100, L500.4050 ####[facility] [address] [place], [address] WBC (Bld) [#/Vol] 7.7 10*3/uL Normal 4.4-11.0 [facility] Comment on above: Performed By: #### L 100.0100, L500.4050 ####[facility] [address] [place], [address] Carbon dioxide, total [Moles /volume] in Central venous bloodOrdered By: Jose Olvera on 08-18-2024 CO2 [Moles/Vol] 25.1 mmol/L 21.0-32.0 [facility] Chest 1 View (Portable)on Chest 1 View (Portable) Normal [facility] Chloride assayOrdered By: Hany Olvera on 08-18-2024 Chloride [Moles/Vol] 107 mmol/L 98-108 [facility] Comprehensive Metabolic Prof ilon 08-18-2024 Albumin [Mass/Vol] 3.9 g/dL Normal 3.4-4.8 [facility] Comment on above: Performed By: #### L 100.0100, L500.4050 ####[facility] [address] [place], [address] Albumin/Globulin [Mass ratio] 1.8 {ratio} Normal 0.9-2.4 [facility] Comment on above: Performed By: #### L 100.0100, L500.4050 ####[facility] [address] [place], [address] ALK PHOS 117 U/L Normal 40-129 [facility] Comment on above: Performed By: #### L 100.0100, L500.4050 ####[facility] [address] [place], [address] ALT [Catalytic activity/Vol] 10 U/L Normal <=46 [facility] Comment on above: Performed By: #### L 100.0100, L500.4050 ####[facility] [address] [place], [address] AST [Catalytic activity/Vol] 15 U/L Normal <=37 [facility] Comment on above: Performed By: #### L 100.0100, L500.4050 ####[facility] [address] [place], [address] Bilirubin [Mass/Vol] 0.46 mg/dL Normal 0.00-1.30 [facility] Comment on above: Performed By: #### L 100.0100, L500.4050 ####[facility] [address] [place], [address] BUN/CRE 18.2 RATIO Normal 10-20 [facility] Comment on above: Performed By: #### L 100.0100, L500.4050 ####[facility] [address] [place], [address] Calcium [Mass/Vol] 9.6 mg/dL Normal 7.6-11.0 [facility] Comment on above: Performed By: #### L 100.0100, L500.4050 ####[facility] [address] [place], [address] Chloride [Moles/Vol] 107 mmol/L Normal 98-108 [facility] Comment on above: Performed By: #### L 100.0100, L500.4050 ####[facility] [address] [place], [address] CO2 [Moles/Vol] 25.1 mmol/L Normal 21.0-32.0 [facility] Comment on above: Performed By: #### L 100.0100, L500.4050 ####[facility] [address] [place], [address] Creatinine [Mass/Vol] 1.19 mg/dL Normal 0.70-1.20 [facility] Comment on above: Performed By: #### L 100.0100, L500.4050 ####[facility] [address] [place], [address] ECRCL 61.56 ml/min Normal 50-250 [facility] Comment on above: Performed By: #### L 100.0100, L500.4050 ####[facility] [address] [place], [address] GAP 8 Normal 5-15 [facility] Comment on above: Performed By: #### L 100.0100, L500.4050 ####[facility] [address] [place], [address] GFR/1.73 sq M.predicted among non-blacks MDRD (S/P/Bld) [Vol rate/Area] 69 mL/min/{1.73_m2} Normal >60 [facility] Comment on above: Result Comment: mL/m in/1.73m2 CKD-EPI Creatinine Equation (2020) Performed By: #### L 100.0100, L500.4050 ####[facility] [address] [place], [address] Globulin (S) [Mass/Vol] 2.2 g/dL Normal 2.2-4.2 [facility] Comment on above: Performed By: #### L 100.0100, L500.4050 ####[facility] [address] [place], [address] Glucose [Mass/Vol] 137 mg/dL High 70-99 [facility] Comment on above: Performed By: #### L 100.0100, L500.4050 ####[facility] [address] [place], [address] Potassium [Moles/Vol] 4.1 mmol/L Normal 3.3-5.1 [facility] Comment on above: Performed By: #### L 100.0100, L500.4050 ####[facility] [address] [place], [address] Sodium [Moles/Vol] 139 mmol/L Normal 133-145 [facility] Comment on above: Performed By: #### L 100.0100, L500.4050 ####[facility] [address] [place], [address] T PROT 6.0 g/dL Normal 5.9-8.4 [facility] Comment on above: Performed By: #### L 100.0100, L500.4050 ####[facility] [address] [place], [address] Urea nitrogen [Mass/Vol] 22 mg/dL High 4-19 [facility] Comment on above: Performed By: #### L 100.0100, L500.4050 ####[facility] [address] [place], [address] Emergency Department Summary on 08-18-2024 Emergency Department Summary Normal [facility] Eosinophil percentageOrdered By: Jose Olvera on 08-18-2024 Eosinophils/100 WBC (Bld) 1.3 % 0-5 [facility] Erythrocyte distribution wid th ratioOrdered By: Josenahum Olvera on 08-18-2024 Erythrocyte distribution width (RBC) [Ratio] 12.3 % 11.6-14.6 [facility] Erythrocyte distribution wid th standard deviationOrdered By: Josenahum Olvera on 08-18-2024 Erythrocyte distribution width (RBC) [Ratio] 41.1 fl 35.1-43.9 [facility] Glomerular filtration rate ( GFR) estimation/1.73 sq m using serum, plasma, or whole bOrdered By: Josenahum Olvera on 08-18-2024 GFR/1.73 sq M.predicted among non-blacks MDRD (S/P/Bld) [Vol rate/Area] 69 mL/min/{1.73_m2} >60 [facility] Comment on above: mL/min/1.73m2 CKD-EP I Creatinine Equation (2020) H AND P Exam - [facility] 08-18-2024 H&P Exam - Hospitalist Normal [facility] Hematocrit Auto (Bld) [Volum e fraction]Ordered By: Josenahum Olvera on 08-18-2024 Hematocrit (Bld) [Volume fraction] 29.7 % Low 40-54 [facility] Hemoglobin A1c percentageOrd ered By: Robert Andrea on 08-18-2024 HbA1c (Bld) [Mass fraction] 5.2 % <5.7 [facility] Comment on above: Normal < 5.7 % Predi abetic 5.7 - 6.4 % Diabetic >or= 6.5 % Please note range changes. Hemoglobin measurementOrdere d By: Jose Olvera on 08-18-2024 Hemoglobin (Bld) [Mass/Vol] 9.9 g/dL Low 13.0-16.5 [facility] Immature granulocytes/100 WB C Auto (Bld)Ordered By: Josenahum Olvera on 08-18-2024 Immature granulocytes/100 WBC (Bld) 0.400 % 0.0-0.9 [facility] Comment on above: IG% - Immature Granu locytes (promyelocytes, myelocytes and metamyelocytes) > 1% indicates that a LEFT SHIFT is Present. Ketones Test strip Ql (U)Ord ered By: Jose Olvera on 08-18-2024 Ketones Ql (U) 5 mg/dl High Negative [facility] Laboratory - Chemistry and C hemistry - challengeOrdered By: Jose Olvera on 08-18-2024 AST [Catalytic activity/Vol] 15 U/L <38 [facility] Lactic Acidon 08-18-2024 Lactate [Moles/Vol] 1.3 mmol/L Normal 0.0-2.0 [facility] Comment on above: Order Comment: Y Performed By: #### L 503.6005 ####[facility] [address] [place], [address] Lactic acid measurementOrder ed By: Jose Olvera on 08-18-2024 Lactate [Moles/Vol] 1.3 mmol/L 0.0-2.0 [facility] MCV (mean corpuscular volume ) determinationOrdered By: Jose Olvera on 08-18-2024 MCV (RBC) [Entitic vol] 92.2 fL 80-94 [facility] Mean corpuscular hemoglobin (MCH) determinationOrdered By: Josenahum Olvera on 08-18-2024 MCH (RBC) [Entitic mass] 30.7 pg 27.0-32.0 [facility] Mean corpuscular hemoglobin concentration (MCHC) determinationOrdered By: Jose Olvera on 08-18-2024 MCHC (RBC) [Mass/Vol] 33.3 g/dL 32-36 [facility] Mean platelet volume determi nationOrdered By: Jose Olvera on 08-18-2024 Platelet mean volume (Bld) [Entitic vol] 10.8 fL 6.2-12.0 [facility] Measurement, pHOrdered By: Ysabel Olvera on 08-18-2024 pH (Unsp spec) 7.42 [pH] 7.35-7.45 [facility] Microscopic analysis of urin e for red blood cells (RBC)Ordered By: Jose Olvera on 08-18-2024 Microscopic analysis of urine for red blood cells (RBC) 0-5 SEEN /hpf 0-5 [facility] Monocyte percentageOrdered B y: Jose Olvera on 08-18-2024 Monocytes/100 WBC (Bld) 6.7 % 0-10 [facility] Mucus LM Ql (Urine sed)Order ed By: Jose Olvera on 08-18-2024 Mucus Ql (Urine sed) 0 SEEN /hpf [facility] Neutrophil percentageOrdered By: Jose Olvera on 08-18-2024 Neutrophils/100 WBC (Bld) 80.5 % High 47-70 [facility] Nitrite Test strip Ql (U)Ord ered By: Jose Olvera on 08-18-2024 Nitrite Ql (U) Negative Negative [facility] No Panel InformationOrdered By: Jose Olvera on 08-18-2024 Blood Gas Sample Site L Radial [facility] Blood Gas Specimen Type ART [facility] Blood Gas Vent Mode Not entered [facility] Oxygen Delivery Device Room Air [facility] ART [facility] L Radial [facility] Not entered [facility] Room Air [facility] 15 U/L <38 [facility] Nucleated red blood cell per centageOrdered By: Jose Olvera on 08-18-2024 Nucleated RBC/100 WBC (Bld) [Ratio] 0 % 0-5 [facility] Platelet countOrdered By: Hany Olvera on 08-18-2024 Platelets (Bld) [#/Vol] 114 10*3/uL Low 150-450 [facility] Potassium measurement (mass/ volume)Ordered By: Jose Olvera on 08-18-2024 Potassium (Unsp spec) [Mass/Vol] 4.1 mmol/L 3.3-5.1 [facility] Protein Test strip Ql (U)Ord ered By: Jose Olvera on 08-18-2024 Protein Ql (U) 30 mg/dl High Negative [facility] RBC Auto (Bld) [#/Vol]Ordere d By: Jose Olvera on 08-18-2024 RBC (Bld) [#/Vol] 3.22 10*6/uL Low 4.6-6.2 [facility] Serum creatinine measurement (mass/volume)Ordered By: Jose Olvera on 08-18-2024 Creatinine [Mass/Vol] 1.19 mg/dL 0.70-1.20 [facility] Serum globulin measurementOr dered By: Josenahum Olvera on 08-18-2024 Globulin (S) [Mass/Vol] 2.2 g/dL 2.2-4.2 [facility] Serum glucose measurement (m ass/volume)Ordered By: Josenahum Olvera on 08-18-2024 Glucose [Mass/Vol] 137 mg/dL High 70-99 [facility] Serum or plasma alanine velasquez otransferase (ALT) measurementOrdered By: Josenahum Olvera on 08-18-2024 ALT [Catalytic activity/Vol] 10 U/L <47 [facility] Serum or plasma albumin kristie urement (mass/volume)Ordered By: Josenahum Olvera on 08-18-2024 Albumin [Mass/Vol] 3.9 g/dL 3.4-4.8 [facility] Serum or plasma albumin/glob ulin mass ratioOrdered By: Jose Olvera on 08-18-2024 Albumin/Globulin [Mass ratio] 1.8 {ratio} 0.9-2.4 [facility] Serum or plasma alkaline steffany sphatase measurementOrdered By: [facility] on 08-18-2024 ALP [Catalytic activity/Vol] 117 U/L 40-129 [facility] Serum or plasma calcium kristie urement (mass/volume)Ordered By: Josenahum Olvera on 08-18-2024 Calcium [Mass/Vol] 9.6 mg/dL 7.6-11.0 [facility] Serum or plasma ethanol kristie urement (mass/volume)Ordered By: Robert Andrea on 08-18-2024 Ethanol [Mass/Vol] mg/dL <10.1 [facility] Comment on above: This test is for med ical purposes only. The legal definition of intoxication varies according to local law. Serum or plasma urea nitroge n measurement (mass/volume)Ordered By: Josenahum Olvera on 08-18-2024 Urea nitrogen [Mass/Vol] 22 mg/dL High 4-19 [facility] Serum or plasma valproate me asurement (mass/volume)Ordered By: Robert Andrea on 08-18-2024 Valproate [Mass/Vol] 17 ug/mL Low 50-100 [facility] Comment on above: Valproic Acid concen trations >100 ug/mL are potentially toxic. Sodium levelOrdered By: Jose Olvera on 08-18-2024 Sodium [Moles/Vol] 139 mmol/L 133-145 [facility] Squamous epithelial cells de tection in urine sediment by light microscopyOrdered By: Jose Olvera on 08-18-2024 Epithelial cells.squamous LM Ql (Urine sed) 0 SEEN /hpf 0-5 [facility] TSH DL <= 0.005 mIU/L QnOrde red By: Robert Andrea on 08-18-2024 TSH Qn 1.040 uIU/mL 0.300-4.200 [facility] Total carbon dioxide measure mentOrdered By: Jose Olvera on 08-18-2024 CO2 [Moles/Vol] 28 mmol/L [facility] Total proteinOrdered By: oJse Olvera on 08-18-2024 Protein [Mass/Vol] 6.0 g/dL 5.9-8.4 [facility] Urinalysis, Completeon 08-18 RBC 0-5 SEEN Normal 0-5 [facility] Comment on above: Order Comment: DOROTHEA TER SPECIMEN Performed By: #### L 400.0001, ####[facility] [address] [place], [address] WBC 50-100 SEEN Normal 0-5 [facility] Comment on above: Order Comment: DOROTHEA TER SPECIMEN Performed By: #### L 400.0001, ####[facility] [address] [place], [address] BACTERIA 0 SEEN Normal None Seen [facility] Comment on above: Order Comment: DOROTHEA TER SPECIMEN Performed By: #### L 400.0001, ####[facility] [address] [place], [address] EPI,SQUAMOUS 0 SEEN Normal 0-5 [facility] Comment on above: Order Comment: DOROTHEA TER SPECIMEN Performed By: #### L 400.0001, ####[facility] [address] [place], [address] Mucus Ql (Urine sed) 0 SEEN Normal [facility] Comment on above: Order Comment: DOROTHEA [facility] SPECIMEN Performed By: #### L 400.0001, M100.2200 ####[facility] [address] [place], [address] Urine Drug Screen (VISTA)on 08-18-2024 AMPHETAMINES Normal <1000 ng/mL [facility] Comment on above: Result Comment: NO U RINE IN LAB- REORDERING Performed By: #### L 501.9520, L501.9985, L505.5000, L501.8100, L300.8000, L501.9100 ####[facility] [address] [place], [address] BARBITIURATES Normal < 200 ng/mL [facility] Comment on above: Result Comment: NO U RINE IN LAB- REORDERING Performed By: #### L 501.9520, L501.9985, L505.5000, L501.8100, L300.8000, L501.9100 ####[facility] [address] [place], [address] BENZODIAZIPINE Normal < 200 ng/mL [facility] Comment on above: Result Comment: NO U RINE IN LAB- REORDERING Performed By: #### L 501.9520, L501.9985, L505.5000, L501.8100, L300.8000, L501.9100 ####[facility] [address] [place], [address] BUP Ur Drug Scr Normal < 200 ng/mL [facility] Comment on above: Result Comment: NO U RINE IN LAB- REORDERING Performed By: #### L 501.9520, L501.9985, L505.5000, L501.8100, L300.8000, L501.9100 ####[facility] [address] [place], [address] COCAINE Normal < 300 ng/mL [facility] Comment on above: Result Comment: NO U RINE IN LAB- REORDERING Performed By: #### L 501.9520, L501.9985, L505.5000, L501.8100, L300.8000, L501.9100 ####[facility] [address] [place] [address] Fentanyl Normal [facility] Comment on above: Result Comment: NO U RINE IN LAB- REORDERING Performed By: #### L 501.9520, L501.9985, L505.5000, L501.8100, L300.8000, L501.9100 ####[facility] [address] [place] [address] METHADONE Normal < 300 ng/mL [facility] Comment on above: Result Comment: NO U RINE IN LAB- REORDERING Performed By: #### L 501.9520, L501.9985, L505.5000, L501.8100, L300.8000, L501.9100 ####[facility] [address] [place] [address] OPIATES Normal < 300 ng/mL [facility] Comment on above: Result Comment: NO U RINE IN LAB- REORDERING Performed By: #### L 501.9520, L501.9985, L505.5000, L501.8100, L300.8000, L501.9100 ####[facility] [address] [place] [address] OXYCODONE Normal < 100 ng/mL [facility] Comment on above: Result Comment: NO U RINE IN LAB- REORDERING Performed By: #### L 501.9520, L501.9985, L505.5000, L501.8100, L300.8000, L501.9100 ####[facility] [address] [place] [address] PCP Normal < 25 ng/mL [facility] Comment on above: Result Comment: NO U RINE IN LAB- REORDERING Performed By: #### L 501.9520, L501.9985, L505.5000, L501.8100, L300.8000, L501.9100 ####[facility] [address] [place], [address] THC Normal < 50 ng/mL [facility] Comment on above: Result Comment: NO U RINE IN LAB- REORDERING Performed By: #### L 501.9520, L501.9985, L505.5000, L501.8100, L300.8000, L501.9100 ####[facility] [address] [place], [place], [id number] Urine clarityOrdered By: Jose Olvera on 08-18-2024 Clarity (U) Sl. Cloudy Clear [facility] Urine color determinationOrd ered By: Jose Olvera on 08-18-2024 Color (U) Yellow Yellow [facility] Urine cultureOrdered By: Jose Olvera on 08-18-2024 Bacteria identified Cx Nom (U) Corynebacterium jeikeium Abnormal [facility] Bacteria identified Cx Nom (U) Aerococcus urinae Abnormal [facility] Bacteria identified Cx Nom (U) Enterococcus raffinosus Abnormal [facility] Urine glucose detectionOrder ed By: Jose Olvera on 08-18-2024 Glucose Ql (U) Normal mg/dl Normal [facility] Urine leukocyte esterase det ection by dipstickOrdered By: Jose Olvera on 08-18-2024 Leukocyte esterase Test strip Ql (U) 500 /ul High Negative [facility] Urine pHOrdered By: Jose sidhu on 08-18-2024 pH (U) 6.0 [pH] 5.0 - 8.0 [facility] Urine sediment bacteria coun t by microscopy (number/high power field)Ordered By: Jose Olvera on 08-18-2024 Bacteria LM.HPF (Urine sed) [#/Area] 0 /[HPF] None Seen [facility] Urine specific gravity measu rementOrdered By: Jose Batistao on 08-18-2024 Specific gravity (U) [Rel density] 1.015 1.002-1.030 [facility] Urine urobilinogen measureme ntOrdered By: Josenahum Batistao on 08-18-2024 Urobilinogen Ql (U) 1 mg/dl High Normal [facility] White blood cell (WBC) count Ordered By: Jose Batistao on 08-18-2024 WBC (Bld) [#/Vol] 7.7 10*3/uL 4.4-11.0 [facility] White blood cell countOrdere d By: Jose Batistao on 08-18-2024 White blood cell count 50-100 SEEN /hpf 0-[address] [facility] [address] ABDOMEN PELVIS W IV CONTR [place] 03-26-2024 CT ABDOMEN PELVIS W IV CONTRAST Interpreted By: Masoud De Jesus, STUDY: CT ABDOMEN PELVIS W IV CONTRAST; 03/26/2024 4:22 pm INDICATION: Signs/Symptoms:hematuri a. ,R31.0 Gross hematuria COMPARISON: CT urography dated 10/24/2021. ACCESSION NUMBER(S): [id number] ORDERING CLINICIAN: NARINDER CHRISTENSEN TECHNIQUE: CT of [...] to the level of the ureterovesical junction, bqyn-bpkvkce-scnz-right . No nephroureterolithiasis bilaterally. PELVIS: BLADDER: The [...] are small bilateral fat containing inguinal hernias, nzsq-vnwytsm-ytgg-right . There is a tiny fat containing [...] to the level of the ureterovesical junction, qjer-rafsima-mpjg-right . Findings are likely secondary to back pressure from the markedly distended urinary bladder. 5. Remaining chronic and incidental findings as described above. MACRO: Critical Finding: See findings. Notification was initiated on 03/27/2024 at 11:[address] Masoud De Jesus. (-YCF-) Instructions: Signed by: Masoud De Jesus 03/27/2024 11:30 AM Dictation workstation: [id number] [facility] Absolute lymphocyte countOrd ered By: Kirsty Rodarte on 05-14-2023 Lymphocytes Auto (Unsp spec) [#/Vol] 0.92 10*3/uL 0.83-4.51 [facility] Automated lymphocyte count a s percentage of total leukocytesOrdered By: Kirsty Rodarte on 05-14-2023 Lymphocytes/100 WBC Auto (Unsp spec) 25.7 % 19-41 [facility] Basophil percentageOrdered B y: Kirsty Rodarte on 05-14-2023 Basophil percentage 3.4 mg/dL 2.5-4.9 [facility] Basophils/100 WBC (Bld) 0.0 % 0-1 [facility] Bilirubin [Mass/Vol] 0.30 mg/dL 0.20-1.00 [facility] Comment on above: For patients on eltr ombopag therapy, use of Dimension [place] TBIL is not recommended. Chloride [Moles/Vol] 112 mmol/L 98-107 [facility] Eosinophils/100 WBC (Bld) 0.0 % 0-5 [facility] Glucose [Mass/Vol] 106 mg/dL 74-106 [facility] Comment on above: Fasting Glucose resu lt from 100 to 125 mg/dL suggests IMPAIRED HOMEOSTASIS per A.D.A. criteria. Hemoglobin (Bld) [Mass/Vol] 9.4 g/dL 13.0-16.5 [facility] Monocytes/100 WBC (Bld) 5.3 % 0-10 [facility] Neutrophils (Bld) [#/Vol] 2.5 10*3/uL 2.0-7.7 [facility] Neutrophils/100 WBC (Bld) 68.7 % 47-70 [facility] Potassium [Moles/Vol] 4.2 mmol/L 3.5-5.1 [facility] Protein [Mass/Vol] 5.1 g/dL 6.4-8.2 [facility] Sodium [Moles/Vol] 144 mmol/L 136-145 [facility] WBC (Bld) [#/Vol] 3.6 10*3/uL 4.4-11.0 [facility] Blood manual differential co mment interpretation (narrative result)Ordered By: Kirsty Rodarte on 05-14-2023 Manual differential comment Christ (Bld) [Interp] See comment [facility] Comment on above: PANCYTOPENIA Blood platelet adequacy dete ction by light microscopyOrdered By: Kirsty Rodarte on 05-14-2023 Platelets LM Ql (Bld) SLT DEC ADEQ [facility] Determination of erythrocyte mean corpuscular volume (MCV)Ordered By: Kirsty Rodarte on 05-14-2023 MCV (RBC) [Entitic vol] 92.6 fL 80-94 [facility] Erythrocyte distribution wid th ratioOrdered By: Kirsty Rodarte on 05-14-2023 Erythrocyte distribution width (RBC) [Ratio] 12.1 % 11.6-14.6 [facility] Erythrocyte distribution wid th standard deviationOrdered By: Kirsty Rodarte on 05-14-2023 Erythrocyte distribution width (RBC) [Entitic vol] 41.0 fL 35.1-43.9 [facility] Hematocrit Auto (Bld) [Volum e fraction]Ordered By: Kirsty Rodarte on 05-14-2023 Hematocrit (Bld) [Volume fraction] 28.8 % 40-54 [facility] Immature granulocytes/100 WB C Auto (Bld)Ordered By: Kirsty Rodarte on 05-14-2023 Immature granulocytes/100 WBC (Bld) 0.300 % 0.0-0.9 [facility] Comment on above: IG% - Immature Granu locytes (promyelocytes, myelocytes and metamyelocytes) > 1% indicates that a LEFT SHIFT is Present. Laboratory - Chemistry and C hemistry - challengeOrdered By: Kirsty Rodarte on 05-14-2023 Albumin/Globulin [Mass ratio] 0.9 {ratio} 0.9-2.4 [facility] ALP [Catalytic activity/Vol] 48 U/L 45-117 [facility] ALT [Catalytic activity/Vol] 13 U/L 16-61 [facility] CO2 [Moles/Vol] 27.0 mmol/L 21.0-32.0 [facility] Globulin (S) [Mass/Vol] 2.7 g/dL 2.2-4.2 [facility] Magnesium [Mass/Vol] 2.7 mg/dL 1.6-2.6 [facility] Urea nitrogen/Creatinine [Mass ratio] 24.8 mg/mg 10-20 [facility] Laboratory - Hematology and Cell countsOrdered By: Kirsty Rodarte on 05-14-2023 MCH (RBC) [Entitic mass] 30.2 pg 27.0-32.0 [facility] MCHC (RBC) [Mass/Vol] 32.6 g/dL 32-36 [facility] Nucleated RBC/100 WBC (Bld) [Ratio] 0 % 0-5 [facility] Platelet mean volume (Bld) [Entitic vol] 10.6 fL 6.2-12.0 [facility] Platelets (Bld) [#/Vol] 92 10*3/uL 150-450 [facility] No Panel InformationOrdered By: Kirsty Rodarte on 05-14-2023 Estimated Creatinine Clearance Calc 67.78 ml/min [facility] Estimated GFR (MDRD) Amer 84 mL/min >60 [facility] Comment on above: GFR Calc Estimated GFR (MDRD) Non-Af Amer 70 mL/min >60 [facility] Comment on above: Non- GFR Calc RBC Auto (Bld) [#/Vol]Ordere d By: Kirsty Rodarte on 05-14-2023 RBC (Bld) [#/Vol] 3.11 10*6/uL 4.6-6.2 [facility] Serum or plasma calcium kristie urement (mass/volume)Ordered By: Kirsty Rodarte on 05-14-2023 Calcium [Mass/Vol] 8.4 mg/dL 8.5-10.1 [facility] Serum or plasma creatinine m easurement (mass/volume)Ordered By: Kirsty Rodarte on 05-14-2023 Creatinine [Mass/Vol] 1.13 mg/dL 0.70-1.30 [facility] Comment on above: The validity of the calculated GFR & GFRAA in patients over 70 years has not been determined. Clinical correlation is essential. Serum or plasma urea nitroge n measurement (mass/volume)Ordered By: Kirsty Rodarte on 05-14-2023 Urea nitrogen [Mass/Vol] 28 mg/dL 7-18 [facility] Thin prep Papanicolaou smear with manual screeningOrdered By: Kirsty Rodarte on 05-14-2023 Thin prep Papanicolaou smear with manual screening 2.4 g/dL 3.2-5.0 [facility] Thin prep Papanicolaou smear with manual screening 18 U/L 15-37 [facility] Thin prep Papanicolaou smear with manual screening 5 5-15 [facility] Base excessOrdered By: Brigido Rodarte on 05-13-2023 Base excess Calc (BldV) [Moles/Vol] 0 mmol/L -2-2 [facility] Basophil percentageOrdered B y: Kirsty Rodarte on 05-13-2023 Ammonia (P) [Moles/Vol] 21.0 umol/L 11-32 [facility] Basophil percentage 25 mmol/L [facility] Basophils/100 WBC (Bld) 90 % 95-99 [facility] Measurement, pHOrdered By: Marbella Rodarte on 05-13-2023 pH (Unsp spec) 7.43 [pH] 7.35-7.45 [facility] No Panel InformationOrdered By: Kirsty Rodarte on 05-13-2023 Arterial Blood Partial Pressure CO2 36.0 mmHg 35-45 [facility] Arterial Blood Partial Pressure O2 56 mmHG 75-100 [facility] Blood Gas Bicarbonate Actual 23.9 mmol/L 22-26 [facility] Blood Gas Oxygen Percent 4.0 [facility] Blood Gas Sample Site L Brach [facility] Blood Gas Specimen Type ART [facility] Blood Gas Vent Mode Not entered [facility] Oxygen Delivery Device Not entered [facility] No Panel InformationOrdered By: Robert Barr on 05-13-2023 Reactive Lymphocytes 1+ [facility] Thin prep Papanicolaou smear with manual screeningOrdered By: Kirsty Rodarte on 05-13-2023 Thin prep Papanicolaou smear with manual screening 120 mg/dL 74-106 [facility] Comment on above: MANAGEMENT OF PATIEN T CARE PER NURSING PROTOCOL Laboratory - Chemistry and C hemistry - challengeOrdered By: Kirsyt Rodarte on 05-12-2023 Natriuretic peptide B (Bld) [Mass/Vol] 171.0 pg/mL 0-100 [facility] Absolute lymphocyte countOrd ered By: Jose Olvera on 05-10-2023 Lymphocytes Auto (Unsp spec) [#/Vol] 0.74 10*3/uL 0.83-4.51 [facility] Automated lymphocyte count a s percentage of total leukocytesOrdered By: Josenahum Olvera on 05-10-2023 Lymphocytes/100 WBC Auto (Unsp spec) 24.7 % 19-41 [facility] Basophil percentageOrdered B y: Josenahum Olvera on 05-10-2023 Lactate [Moles/Vol] 0.6 mmol/L 0.4-2.0 [facility] Basophils/100 WBC (Bld) 0.3 % 0-1 [facility] Bilirubin [Mass/Vol] 0.30 mg/dL 0.20-1.00 [facility] Comment on above: For patients on eltr ombopag therapy, use of Dimension [place] TBIL is not recommended. Chloride [Moles/Vol] 107 mmol/L 98-107 [facility] Eosinophils/100 WBC (Bld) 0.0 % 0-5 [facility] Glucose [Mass/Vol] 99 mg/dL 74-106 [facility] Hemoglobin (Bld) [Mass/Vol] 9.9 g/dL 13.0-16.5 [facility] Monocytes/100 WBC (Bld) 9.7 % 0-10 [facility] Neutrophils (Bld) [#/Vol] 2.0 10*3/uL 2.0-7.7 [facility] Neutrophils/100 WBC (Bld) 65.0 % 47-70 [facility] Potassium [Moles/Vol] 4.1 mmol/L 3.5-5.1 [facility] Protein [Mass/Vol] 6.2 g/dL 6.4-8.2 [facility] Sodium [Moles/Vol] 139 mmol/L 136-145 [facility] WBC (Bld) [#/Vol] 3.0 10*3/uL 4.4-11.0 [facility] Blood platelet adequacy dete ction by light microscopyOrdered By: Josenahum Olvera on 05-10-2023 Platelets LM Ql (Bld) SLT DEC ADEQ [facility] Determination of erythrocyte mean corpuscular volume (MCV)Ordered By: Josenahum Olvera on 05-10-2023 MCV (RBC) [Entitic vol] 94.2 fL 80-94 [facility] Erythrocyte distribution wid th ratioOrdered By: [facility] on 05-10-2023 Erythrocyte distribution width (RBC) [Ratio] 12.5 % 11.6-14.6 [facility] Erythrocyte distribution wid th standard deviationOrdered By: [facility] on 05-10-2023 Erythrocyte distribution width (RBC) [Entitic vol] 43.1 fL 35.1-43.9 [facility] Hematocrit Auto (Bld) [Volum e fraction]Ordered By: [facility] on 05-10-2023 Hematocrit (Bld) [Volume fraction] 31.1 % 40-54 [facility] Immature granulocytes/100 WB C Auto (Bld)Ordered By: [facility] on 05-10-2023 Immature granulocytes/100 WBC (Bld) 0.300 % 0.0-0.9 [facility] Comment on above: IG% - Immature Granu locytes (promyelocytes, myelocytes and metamyelocytes) > 1% indicates that a LEFT SHIFT is Present. Laboratory - Chemistry and C hemistry - challengeOrdered By: [facility] on 05-10-2023 Albumin/Globulin [Mass ratio] 1.0 {ratio} 0.9-2.4 [facility] ALP [Catalytic activity/Vol] 53 U/L 45-117 [facility] ALT [Catalytic activity/Vol] 18 U/L 16-61 [facility] CO2 [Moles/Vol] 29.0 mmol/L 21.0-32.0 [facility] Globulin (S) [Mass/Vol] 3.1 g/dL 2.2-4.2 [facility] Urea nitrogen/Creatinine [Mass ratio] 15.6 mg/mg 10-20 [facility] Laboratory - Hematology and Cell countsOrdered By: Josenahum Olvera on 05-10-2023 MCH (RBC) [Entitic mass] 30.0 pg 27.0-32.0 [facility] MCHC (RBC) [Mass/Vol] 31.8 g/dL 32-36 [facility] Nucleated RBC/100 WBC (Bld) [Ratio] 0 % 0-5 [facility] Platelet mean volume (Bld) [Entitic vol] 10.2 fL 6.2-12.0 [facility] Platelets (Bld) [#/Vol] 88 10*3/uL 150-450 [facility] Laboratory - Microbiology an d Antimicrobial susceptibilityOrdered By: Jose Olvera on 05-10-2023 SARS-CoV-2 (COVID-19) RNA KYLIE+probe Ql (Unsp spec) Influenzae A [facility] SARS-CoV-2 (COVID-19) RNA KYLIE+probe Ql (Unsp spec) Influenzae A [facility] No Panel InformationOrdered By: Josenahum Olvera on 05-10-2023 Estimated GFR (MDRD) Amer 69 mL/min >60 [facility] Comment on above: GFR Calc Estimated GFR (MDRD) Non-Af Amer 57 mL/min >60 [facility] Comment on above: Non- GFR Calc Troponin I High Sensitivity 9 pg/mL 3.0-78.0 [facility] Comment on above: Please Note: New Shanita t Units and Gender Specific Reference Ranges. For more information see Policy Stat Procedure [place] High Sensitivity Troponin (TNIH) and attachments. RBC Auto (Bld) [#/Vol]Ordere d By: Jose Olvera on 05-10-2023 RBC (Bld) [#/Vol] 3.30 10*6/uL 4.6-6.2 [facility] Serum or plasma calcium kristie urement (mass/volume)Ordered By: Jose Olvera on 05-10-2023 Calcium [Mass/Vol] 9.2 mg/dL 8.5-10.1 [facility] Serum or plasma creatinine m easurement (mass/volume)Ordered By: Jose Olvera on 05-10-2023 Creatinine [Mass/Vol] 1.35 mg/dL 0.70-1.30 [facility] Comment on above: The validity of the calculated GFR & GFRAA in patients over 70 years has not been determined. Clinical correlation is essential. Serum or plasma urea nitroge n measurement (mass/volume)Ordered By: Jose Olvera on 05-10-2023 Urea nitrogen [Mass/Vol] 21 mg/dL 7-18 [facility] Serum procalcitonin measurem entOrdered By: Roxanne More on 05-10-2023 Procalcitonin [Mass/Vol] 0.10 ng/mL 0.00-0.09 [facility] Comment on above: A procalcitonin (PCT [...] with manual screening 3.1 g/dL 3.2-5.0 [facility] Thin prep Papanicolaou smear with manual screening 19 U/L 15-37 [facility] Thin prep Papanicolaou smear with manual screening 3 5-15 [facility] Office Visit (Urology)on Follow-up visit Diagnoses/Problems [...] Oral Packet Lipitor 40 MG Oral Tablet [place] Carbonate 300 MG Oral Tablet Melatonin 3 MG Oral Tablet Milk of Magnesia 400 MG/5ML Oral Suspension MiraLax 17 GM Oral Packet Mylanta 200-200-20 MG/5ML SUSP Nicorette Mini 2 MG Mouth/Throat Lozenge Paxil 20 MG Oral Tablet Tamsulosin HCl - 0.4 MG Oral Capsule Tylenol 325 MG Oral Capsule Vitamin D TABS Zinc TABS Vitals Vital Signs Recorded: 03Jul2022 09:12AM Heart Qhmh074 Wcxoxjub170 Bnnxxfuni66 Ckhxaf501 lb 6 oz BMI Crzxnkmjww86.65 kg/m2 BSA Calculated1.83 Tobacco Usea) Yes Patient [...] Jul 03 2022 9:31AM EST (Author) [facility] Fall risk assessment a) No falls within the last year [facility] Phone: Tobacco use status CPHS a) Yes M P-Urology-A [facility] Work Phone: Tobacco Screening. Yes MP-Uro logy-A [facility] Phone: Office Visit (Urology)on Follow-up visit Diagnoses/Problems [...] Oral Packet Lipitor 40 MG Oral Tablet [place] Carbonate 300 MG Oral Tablet Melatonin 3 MG Oral Tablet Milk of Magnesia 400 MG/5ML Oral Suspension MiraLax 17 GM Oral Packet Mylanta 200-200-20 MG/5ML SUSP Nicorette Mini 2 MG Mouth/Throat Lozenge Paxil 20 MG Oral Tablet Tamsulosin HCl - 0.4 MG Oral Capsule Tylenol 325 MG Oral Capsule Vitamin D TABS Zinc TABS Vitals Vital Signs Recorded: 02Jan2022 08:18AM Heart Tvbl137 Finfrvcu083 Jthpjspbf45 Ibmhkl051 lb BMI Yvagrztjpj73.75 kg/m2 BSA Calculated1.83 Tobacco Usea) Yes Patient [...] Jan 02 2022 8:29AM EST (Author) Normal [facility] CT UROGRAPHY with 3D VOLUME RENDERED IMAGINGon 10-24-2021 CT UROGRAPHY with 3D VOLUME RENDERED IMAGING Patient Name: NANDO OCHOA STUDY: CT UROGRAPHY WITH AND WITHOUT CONTRAST; 10/24/2021 10:09 am INDICATION: GROSS HEMATURIA R31.0: Gross hematuria. COMPARISON: None. ACCESSION NUMBER(S): [id number] ORDERING CLINICIAN: NARINDER CHRISTENSEN TECHNIQUE: CT of [...] 4. Ultrasound (more content not included)... Normal [facility] CT Urography with 3D Volume Rendered Imagingon 08-24-2022 CT Urography with 3D Volume Rendered Imaging Normal [facility] 232 DO Work Phone: Office Visit (Urology)on [...] To Draw (Blood Test); Due:08Jan2022; Last Updated By:Patircia Rawls; 10/10/2021 11:09:29 AM;Ordered; For:Gross hematuria; Ordered By:Narinder Christensen II; Creatinine, Serum; Status:Active - Retrospective Authorization; Requested for:10Oct2021; Perform:Lab Services - Lab To Draw (Blood Test); Due:08Jan2022; Last Updated By:Patricia Rawls; 10/10/2021 11:09:29 AM;Ordered; For:Gross hematuria; Ordered By:Narinder Christensen II; CT Urography with 3D Volume Rendered Imaging; Status:Hold For - Scheduling,Retrospectiv e Authorization; Requested for:10Oct2021; Perform:[facility] Services Imaging; Due:08Jan2022; Last Updated By:Patricia [...] Oral Packet Lipitor 40 MG Oral Tablet [place] Carbonate 300 MG Oral Tablet Melatonin 3 [...] Oct 10 2021 11:24AM EST (Author) Normal [facility] Tobacco Screening.on 022 Adult depression screening assessment No MP-Urology- R [facility] 232 DO Work Phone: Fall risk assessment a) No falls within the last year [facility]-Vfeqpon-X [facility] 232 DO Work Phone: Tobacco use status CPHS a) Yes M P-Urology-R [facility] 232 DO Work Phone: Tobacco Screening. Yes MP-Uro logy-R [facility] 232 DO Work Phone: Radiologyon 09-07-2021 US Kidney - bilateral Normal MP- Urology-[facility] Work Phone: US RENAL BILATon 09-07-2021 US RENAL BILAT Patient Name: NANDO OCHOA STUDY: US RENAL BILAT; 09/07/2021 10:28 am INDICATION: hematuria R31.0: Gross hematuria. COMPARISON: None. ACCESSION NUMBER(S): [id number] ORDERING CLINICIAN: NARINDER CHRISTENSEN TECHNIQUE: Multiple images [...] excluded. Electronically signed by: NARINDER HILL MD [facility] percentageon 2021 Ammonia (P) [Moles/Vol] 42.0 umol/L [facility] Work Phone: Office Visit (Urology)on Follow-up [...] Oral Packet Lipitor 40 MG Oral Tablet [place] Carbonate 300 MG Oral Tablet Melatonin 3 MG Oral Tablet Milk of Magnesia 400 MG/5ML Oral Suspension MiraLax 17 GM Oral Packet Mylanta 200-200-20 MG/5ML SUSP Nicorette Mini 2 MG Mouth/Throat Lozenge Paxil 20 MG Oral Tablet Tamsulosin HCl - 0.4 MG Oral Capsule Tylenol 325 MG Oral Capsule Vitamin D TABS Zinc TABS Vitals Vital Signs Recorded: 15Aug2021 09:28AM Heart Utwv015 Fualdqev94 Mefpyhwqa23 Height5 ft 7 in Cmcqsp367 lb 8 oz BMI Lsoksjngik02.82 kg/m2 BSA Calculated1.83 Tobacco Useb) No Fall [...] Aug 15 2021 9:39AM EST (Author) [facility] Tobacco Screening.on Fall risk assessment a) No falls within the last year XV-Nrsnroc-N [employer] Work Phone: Tobacco use status [facility] b) No M P-Urology-A [employer] Work Phone: Basophil percentageon 2021 Ammonia (P) [Moles/Vol] 53.0 umol/L [facility] Work Phone: Tobacco Screening.on 021 Fall risk assessment a) No falls within the last year YE-Chvzhhz-B [facility] Work Phone: Tobacco use status CP b) No M P-Urology-A alyse Work Phone: TAMMYAURELIOon 03-27-2017 CNOV Office Visit (UROLWS) [facility]O [facility] ([id number]) 1960 [facility] Department[facility]/27/17 10:00 AM BRANDEN SHAH) UROLWS During your visit today, we recorded the following information about you: Blood pressure Weight 110/70 67.7 kgDI [place] 03/27/2017 11:06 AM [facility]rological and Kidney InstitutePATIENT INFO:Nando Ochoa HISTORY= [...] larger. may use ibuprofen for inflammatory type pain.Gwendolyn described that the patient has a reddened [...] Bradford MT, DI-CElectronically signedReferring Provider: ASHLEY DICKEY [[id number]]Allergies As of Date: 03/27/2017 Noted Allergy ReactionBACTRIM (SULFAMETHOXAZOLE-TRIME TH*08/22/2016 16 - UnknownCIPROFLOXACIN 08/22/2016 16 - UnknownCODEINE 08/22/2016 16 - UnknownPENICILLINS 08/22/2016 16 - UnknownDate Reviewed: 03/27/2017Reviewed by: America Castaneda - Fully AssessedReason for Visit: Follow Up [171] testicular swelling [Other]Primary Visit Diagnosis:Hydrocele, unspecified hydrocele type [N43.3] Other Visit Diagnosis:Testicular swelling [N50.89]Order(s):UA DIP, URINE (POC) [0152199] Order #: [id number]. #:[id number] US SCROTUM AND CONTENTS [[id number]] Order #: [id number] FUTURE US DOPPLER COMPLETE [[id number]] Order #: [id number] FUTURE zinc oxide (BOUDREAUXS) 16 % ointApply [...] (around 07/25/2017).Follow-up and Disposition History RecordedEncounter Number: [id number] Status:Closed by BRANDEN SHAH PA-C on 03/27/17 [facility] PROGRESSon 03-27-2017 PROGRESS HNO ID: [id number]: Branden Wilson (Pa): (none)Author Type: Physician AssistantType: Progress NotesFiled: 03/27/2017 11:06 AMNote Text:[facility] Urological and Kidney InstitutePATIENT INFO:Nando Ochoa HISTORY= ========CHIEF COMPLAINT: Hydrocele HPI:This is a [...] to urine in pad atnight> Annual appointment w/ BJUDI Gordon MT, PA-C after U/S in July 2017JUDI Bradford MT, PA-CElectronically signed Normal [facility] CNOVon 02-14-2017 CNOV Office Visit (UROLWS) NANDO BOOTH ([id number]) 1960 M [facility] Time Provider Ugekugyasa39/15/17 10:00 AM BRANDEN SHAH) UROLWS During your visit today, we recorded the following information about you: Pulse Blood pressure 60/minute 104/70DI [place] 03/13/2017 7:14 PM [facility] U[facility] and Kidney InstituteCHIEF COMPLAINT: ANDquot;HydroceleANDquo [...] scrotum is still enlargedANDgt; Follow up JUDI House MT, PA-CElectronically signedReferring Provider: BRANDEN SHAH (DI) [[id number]]Allergies As of Date: 02/14/2017 Noted Allergy ReactionBACTRIM [...] every 6 *Problem List As Of Date: 02/14/2017(None)[facility] er Number: [id number] Status:Closed by BRANDEN SHAH PA-C on 03/13/17 [facility] PROGRESS 02-14-2017 PROGRESS HNO ID: [id number]: Branden Pinto) BongSer: (none)Author Type: Physician AssistantType: Progress NotesFiled: 03/13/2017 7:14 PMNote Text:[facility] Urological and Kidney [place] BeachCHIEF COMPLAINT: HydroceleHPI:This is a 56 year old [...] up JUDI House, MT, PA-CElectronically signed Normal [facility] Vital Signs Date Time Vital Sign Value Performing Clinician Facility 08-27-2024 13:57-0400 Body temperature 97.6 [degF] Dr. Ashley Dickey MD Work Phone: [facility] 08-27-2024 13:57-0400 Diastolic blood pressure 75 mm[Hg] Dr. Ashley Dickey MD Work Phone: [facility] 08-27-2024 13:57-0400 Heart rate 55 /min Dr. Ashley Dickey MD Work Phone: [facility] 08-27-2024 13:57-0400 Respiratory rate 16 /min Dr. Ashley Dickey MD Work Phone: [facility] 08-27-2024 13:57-0400 SaO2% (BldA) [Mass fraction] 95 % Dr. Ashley Dickey MD Work Phone: [facility] 08-27-2024 13:57-0400 Systolic blood pressure 120 mm[Hg] Dr. Ashley Dickey MD Work Phone: [facility] 08-27-2024 05:33-0400 Body mass index (BMI) [Ratio] 22.4 kg/m2 Dr. Ashley Dickey MD Work Phone: [facility] 08-27-2024 05:33-0400 Body weight [address] Ashley Dickey MD Work Phone: [facility] 08-26-2024 11:48-0400 Body height 177.[address] Ashley Dickey MD Work Phone: [facility] 08-25-2024 07:35-0400 Inhaled oxygen flow rate 2 L/min Dr. Ashley Dickey MD Work Phone: [facility] 08-19-2024 01:00-0400 Diastolic blood pressure 97 mm[Hg] Dr. Ashley Dickey MD Work Phone: [facility] 08-19-2024 01:00-0400 Heart rate 66 /min Dr. Ashley Dickey MD Work Phone: [facility] 08-19-2024 01:00-0400 Respiratory rate 18 /min Dr. Ashley Dickey MD Work Phone: [facility] 08-19-2024 01:00-0400 SaO2% (BldA) [Mass fraction] 93 % Dr. Ashley Dickey MD Work Phone: [facility] 08-19-2024 01:00-0400 Systolic blood pressure 122 mm[Hg] Dr. Ashley Dickey MD Work Phone: [facility] 08-18-2024 23:27-0400 Body temperature 98.9 [degF] Dr. Ashley Dickey MD Work Phone: [facility] 08-18-2024 19:45-0400 Body mass index (BMI) [Ratio] 22.3 kg/m2 Dr. Ashley Dickey MD Work Phone: [facility] 08-18-2024 19:45-0400 Body weight 68.[address] Ashley Dickey MD Work Phone: [facility] 08-18-2024 18:29-0400 Body height 175.[address] Ashley Dickey MD Work Phone: [facility] 01-08-2024 11:57-0500 Body mass index (BMI) [Ratio] 26.31 kg/m2 Narinder Christensen MD Work Phone: [facility] 01-08-2024 11:57-0500 Body weight 76.2 kg Narinder Christensen MD Work Phone: 8(104)730-108709 [place] [address] 06-18-2023 13:13-0400 Body height 170.2 cm Narinder Christensen MD Work Phone: 2(827)092-454009 [place] [address] 06-18-2023 13:13-0400 Body mass index (BMI) [Ratio] 26.41 kg/m2 Narinder Christensen MD Work Phone: [facility] 06-18-2023 13:13-0400 Body weight 76.5 kg Narinder Christensen MD Work Phone: 2(684)830-409009 [place] [address] 06-18-2023 13:13-0400 Diastolic blood pressure 81 mm[Hg] Narindre Christensen MD Work Phone: 9(060)858-806609 [place] [address] 06-18-2023 13:13-0400 Heart rate 101 /min Narinder Christensen MD Work Phone: 7(312)726-498580 [address] 06-18-2023 13:13-0400 Systolic blood pressure 116 mm[Hg] Narinder Christensen MD Work Phone: 4(657)124-566209 [place] [address] 05-14-2023 15:00-0400 Inhaled oxygen flow rate 3 L/min Dr. Ashley Dickey Work Phone: [facility] 05-14-2023 15:00-0400 SaO2% (BldA) [Mass fraction] 93 % Dr. Ashley Dickey Work Phone: [facility] 05-14-2023 14:46-0400 Heart rate 52 /min Dr. Ashley Dickey Work Phone: [facility] 05-14-2023 14:40-0400 Body temperature 98.6 [degF] Dr. Ashley Dickey Work Phone: [facility] 05-14-2023 14:40-0400 Diastolic blood pressure 68 mm[Hg] Dr. Ashley Dickey Work Phone: [facility] 05-14-2023 14:40-0400 Respiratory rate 20 /min Dr. Ashley Dickey Work Phone: [facility] 05-14-2023 14:40-0400 Systolic blood pressure 121 mm[Hg] Dr. Aslhey Dickey Work Phone: [facility] 05-14-2023 05:28-0400 Body mass index (BMI) [Ratio] 24 kg/m2 Dr. Ashley Dickey Work Phone: [facility] 05-14-2023 05:28-0400 Body weight 73.[address] Ashley Dickey Work Phone: [facility] 05-11-2023 11:07-0400 Body height 175.[address] Ashley Dickey Work Phone: [facility] 05-10-2023 06:06-0500 Body temperature 99 [degF] Dr. Ashley Dickey Work Phone: [facility] 05-10-2023 06:06-0500 Diastolic blood pressure 65 mm[Hg] Dr. Ashley Dickey Work Phone: [facility] 05-10-2023 06:06-0500 Heart rate 68 /min Dr. Ashley Dickey Work Phone: [facility] 05-10-2023 06:06-0500 Respiratory rate 18 /min Dr. Ashley Dickey Work Phone: [facility] 05-10-2023 06:06-0500 SaO2% (BldA) [Mass fraction] 90 % Dr. Ashley Dickey Work Phone: [facility] 05-10-2023 06:06-0500 Systolic blood pressure 99 mm[Hg] Dr. Ashley Dickey Work Phone: [facility] 05-10-2023 05:30-0500 Inhaled oxygen flow rate 4 L/min Dr. Ashley Dickey Work Phone: [facility] 05-10-2023 05:07-0500 Body height 175.[address] Ashley Dickey Work Phone: [facility] 05-10-2023 05:07-0500 Body mass index (BMI) [Ratio] 24.5 kg/m2 Dr. Ashley Dickey Work Phone: [facility] 05-10-2023 05:07-0500 Body weight 75.[address] Ashley Dickey Work Phone: [facility] 03-19-2023 13:40-0500 Respiratory rate 16 /min Narinder Christensen MD Work Phone: 3(865)693-158873 [place] [address] 03-05-2023 10:26-0500 Body mass index (BMI) [Ratio] 24.59 kg/m2 Narinder Christensen MD Work Phone: 6(364)869-596573 [place] [address] 03-05-2023 10:26-0500 Body weight 71.22 kg Narinder Christensen MD Work Phone: 5(388)227-327273 [place] [address] 03-05-2023 10:26-0500 Respiratory rate 20 /min Narinder Christensen MD Work Phone: [facility] 07-03-2022 09:12-0400 Body mass index (BMI) [Ratio] 24.65 kg/m2 Ashley Dickey Work Phone: ME-Dnmicxm-Qpxqoxu Work Phone: 07-03-2022 09:12-0400 Body surface area Derived from formula 1.83 m2 Ashley Dickey Work Phone: WA-Nboignf-Xslohce Work Phone: 07-03-2022 09:12-0400 Body weight 71.39 kg Ashley Dickey Work Phone: ZA-Olyczxu-Mjxbcpb Work Phone: 07-03-2022 09:12-0400 Diastolic blood pressure 80 mm[Hg] Ashley Gastoner Work Phone: TN-Lbqeetn-Spdiwvi Work Phone: 07-03-2022 09:12-0400 Heart rate 106 /min Ashley Gastoner Work Phone: FZ-Oilbeya-Lhonhue Work Phone: 07-03-2022 09:12-0400 Systolic blood pressure 150 mm[Hg] Ashley Gastoner Work Phone: QC-Jrieuah-Nwdvsux Work Phone: 10-10-2021 11:38-0400 Body mass index (BMI) [Ratio] 24.82 kg/m2 Ashley Gastoner Work Phone: WW-Zeurzqw-Kmmeidyx HC 232 DO Work Phone: 10-10-2021 11:38-0400 Body surface area Derived from formula 1.83 m2 Ashley Gastoner Work Phone: MF-Kjwbmco-Fohailxe HC 232 DO Work Phone: 10-10-2021 11:38-0400 Body weight 71.9 kg Ashley Dickey Work Phone: PK-Nlgrsmv-Mwkazpwo HC 232 DO Work Phone: 08-15-2021 09:28-0400 Body height 170.18 cm Ashley Gastoner Work Phone: RU-Lrdrlce-Cntmfky Work Phone: 08-15-2021 09:28-0400 Body mass index (BMI) [Ratio] 24.82 kg/m2 Ashley Gastoner Work Phone: SP-Kmgcteq-Mhagger Work Phone: 08-15-2021 09:28-0400 Body surface area Derived from formula 1.83 m2 Ashley Gastoner Work Phone: XP-Hsabiiy-Ulqvoze Work Phone: 08-15-2021 09:28-0400 Body weight 71.9 kg Ashley Gastoner Work Phone: YL-Rcugncq-Unktodl Work Phone: 08-15-2021 09:28-0400 Diastolic blood pressure 63 mm[Hg] Ashley Gastoner Work Phone: PA-Sziacdt-Jdydvsj Work Phone: 08-15-2021 09:28-0400 Heart rate 133 /min Ashley Dickey Work Phone: XJ-Kgjkcfg-Nlgjrlz Work Phone: 08-15-2021 09:28-0400 Systolic blood pressure 93 mm[Hg] Ashley Dickey Work Phone: NT-Msxtqhu-Asilbas Work Phone: 08-16-2020 14:06-0400 Body height 170.18 cm Ashley Dickey Work Phone: XR-Oipvnuk-Fqhplyg Work Phone: 08-16-2020 14:06-0400 Body mass index (BMI) [Ratio] 25.37 kg/m2 Ashley Dickey Work Phone: GT-Ajilohx-Zqajgef Work Phone: 08-16-2020 14:06-0400 Body surface area Derived from formula 1.85 m2 Ashley Dickey Work Phone: LB-Xeiqdwm-Kvchsyj Work Phone: 08-16-2020 14:06-0400 Body weight 73.48 kg Ashley Dickey Work Phone: DJ-Jyhqbqe-Xrohpdf Work Phone: 08-16-2020 14:06-0400 Diastolic blood pressure 77 mm[Hg] Ashley Dickey Work Phone: MY-Xucgzec-Bpqyoki Work Phone: 08-16-2020 14:06-0400 Heart rate 124 /min Ashley Dickey Work Phone: YN-Dgzwhqb-Kxizvwl Work Phone: 08-16-2020 14:06-0400 Systolic blood pressure 134 mm[Hg] Ashley Dickey Work Phone: RB-Jjiqfvt-Cdujcqg Work Phone: Encounters Encounter Date Encounter Type Care Provider Facility Start: 09-09-2024 End: 09-09-2024 Dr. Ashley Dickey MD -Laboratory Specime n Work Phone: Start: 09-09-2024 End: 09-09-2024 ambulatory Ashley Dickey Facility:[facility] Start: 09-08-2024 End: 09-08-[address] Leroy Hills MD -[facility] Start: 09-08-2024 End: 09-08-2024 Britany WEEMSC -[facility] Work Phone: Start: 09-08-2024 End: 09-08-[address] Ashley Dickey MD Work Phone: -[facility] Start: 09-01-2024 End: 09-01-[address] Ashley Dickey MD Work Phone: -Laboratory Specimen Start: 09-01-2024 End: 09-01-[address] Ashley Dickey MD -Laboratory Specimen Work Phone: Start: 09-01-2024 End: 09-01-2024 Dr. Ashley Dickey MD -Laboratory Specime n Work Phone: Start: 09-01-2024 End: 09-01-2024 ambulatory Ashley Dickey Facility:[facility] Start: 08-27-2024 Non-patient / Non-visit Dr. Marciano Guerin MD -[facility] Work Phone: Start: 08-27[facility]24 [facility] Start: 08-26-2024 Non-patient / Non-visit Dr. Marciano Guerin MD [facility] Work Phone: Start: 08-26-2024 Dr. Roxanne More MD [facility] Work Phone: Start: 08-25-2024 Non-patient / Non-visit [facility]. Kee [facility] Work Phone: Start: 08-25-2024 Dr. Roxanne More MD [facility] Work Phone: Start: 08-24-2024 Non-patient / Non-visit Hugo Frie nd DO -[facility] Start: 08-24-2024 Hugo Friend DO [facility] Start: 08-24-2024 Non-patient / Non-visit Dr. Kee [facility] Work Phone: Start: 08-24-2024 Dr. Redd Laughlin [facility] Work Phone: Start: 08-24-2024 [facility] Facility: [facility] Start: 08-24-2024 Non-patient / Non-visit [facility] Elizondo [facility] Start: 08-24-2024 Dr. Leroy Hills [facility] Start: 08-23-2024 Non-patient / Non-visit Hugo Frie nd DO [facility] Start: 08-23-2024 Hugo Friend DO [facility] Start: 08-23-2024 Non-patient / Non-visit Dr. Kee [facility] Work Phone: Start: 08-23-2024 Dr. Redd Laughlin [facility] Work Phone: Start: 08-22-2024 Non-patient / Non-visit Dr. Marciano Guerin MD [facility] Work Phone: Start: 08-22-2024 Dr. Marciano Blair [facility] Work Phone: Start: 08-21-2024 Non-patient / Non-visit Dr. Marciano Guerin MD [facility] Work Phone: Start: 08-21-2024 Dr. Marciano Blair [facility] Work Phone: Start: 08-20-2024 Non-patient / Non-visit Dr. Amauri trejo DO [facility] Start: 08-20-2024 [facility] Start: 08-20-2024 Non-patient / Non-visit Dr. Marciano Guerin MD [facility] Work Phone: Start: 08-20-2024 Dr. Marciano Blair [facility] Work Phone: Start: 08-20-2024 Non-patient / Non-visit Dr. Lupillo llanos DO -[facility] Start: 08-20-2024 Dr. Lupillo Porras DO [facility] Start: 08-19-2024 ambulatory Hardik Lindsay cility:[facility] Start: 08-19-2024 Non-patient / Non-visit Dr. Rosio Cardenas MD [facility] Start: 08-19-2024 Dr. Hardik Cardenas MD [facility] Start: 08-19-2024 Non-patient / Non-visit Dr. Marciano Guerin MD [facility] Work Phone: Start: 08-19-2024 Dr. Marciano Blair [facility] Work Phone: Start: 08-19-2024 Non-patient / Non-visit Dr. Lupillo llanos DO -[facility] Start: 08-19-2024 Dr. Lupillo Porras DO [facility] Start: 08-19-2024 ambulatory Robert Edwards ty:[facility] Start: 08-19-2024 End: 08-27-2024 Evaluation and management of inpatient Dr. Robert Huizar DO -Intensive Care Unit Work Phone: Start: 08-19-2024 End: 08-27-2024 Dr. Marciano Guerin MD -[facility] Work Phone: Start: 05-12-2024 End: 05-12-2024 ambulatory [facility] Start: 05-12-2024 End: 05-12-2024 Patient encounter procedure Narinder Christensen MD Work Phone: [facility] Comment on above: Urinary retention (P rimary Dx) Start: 03-26-2024 End: 03-26-2024 ambulatory [facility] Start: 01-08-2024 End: 01-08-2024 ambulatory [facility] Ambulatory Start: 01-08-2024 End: 01-08-2024 Office outpatient visit 25 minutes Narinder Christensen MD Work Phone: [facility] Comment on above: Gross hematuria; Nocturia; Urinary incontinence, unspecified type Start: 06-18-2023 End: 06-18-2023 Office outpatient visit 25 minutes Narinder Christensen MD Work Phone: [facility] Comment on above: Scrotal abscess (Betzaida reynaldo Dx); Urinary frequency; Nocturia; Urinary incontinence, unspecified type Start: 06-18-2023 End: 06-18-2023 ambulatory [facility] Ambulatory Start: 05-14-2023 Non-patient / Non-visit Dr. Amy Dickey Work Phone: [facility] Work Phone: Start: 05-14-2023 Non-patient / Non-visit Dr. Amy Dickey Work Phone: [facility] Start: 05-13-2023 Non-patient / Non-visit Dr. Amy Dickey Work Phone: [facility] Work Phone: Start: 05-12-2023 Non-patient / Non-visit Dr. Amy Dickey Work Phone: [facility] Work Phone: Start: 05-11-2023 Non-patient / Non-visit Dr. Amy Dickey Work Phone: [facility] Work Phone: Start: 05-10-2023 End: 05-14-2023 Evaluation and management of inpatient Dr[facility] Ashley [facility] Work Phone: Start: 05-10-2023 Non-patient / Non-visit Dr. Amy Dickey Work Phone: [facility] Work Phone: Start: 03-19-2023 End: 03-19-2023 Office outpatient visit 25 minutes Narinder Christensen MD Work Phone: [facility] Comment on above: Scrotal abscess; Urinary frequency; Nocturia Start: 03-05-2023 End: 03-05-2023 Office outpatient visit 25 minutes Narinder Christensen MD Work Phone: [facility] Comment on above: Scrotal abscess (Betzaida reynaldo Dx); Nocturia; Urinary incontinence, unspecified type; Urinary frequency Start: 07-03-2022 ambulatory MD NARINDER CHRISTENSEN Fa cility:[id number] Start: 07-03-2022 Office outpatient vi sit 25 minutes Ashley Dickey Work Phone: XK-Qvuvjhk-Hwdewew Work Phone: Start: 01-02-2022 ambulatory MD NARINDER CHRISTENSEN Fa cility:[id number] Start: 10-25-2021 Chart Update Ashley feliciano Work Phone: FC-Vfnmtjn-Ddtziiob HC 232 DO Work Phone: Start: 10-10-2021 Patient encounter procedure Ashley Dickey Work Phone: AI-Lkoyzkw-Wsxyoplx HC 232 DO Work Phone: Start: 10-10-2021 ambulatory MD NARINDER CHRISTENSEN Fa cility:[id number] Start: 09-12-2021 Chart Update Ashley feliciano Work Phone: ZO-Bgybinq-Vzimxpy Work Phone: Start: 09-06-2021 End: 09-06-2021 Departed Referred [facility] Start: 08-15-2021 Office outpatient vi sit 25 minutes Ashley Dickey Work Phone: LF-Igihcef-Wimmefx Work Phone: Start: 08-15-2021 ambulatory MD NARINDER CHRISTENSEN Fa cility:[id number] Start: 06-05-2021 End: 06-05-2021 Departed Referred [facility] Start: 08-16-2020 Office outpatient vi sit 15 minutes Ashley Dickey Work Phone: [facility] Work Phone: Start: 03-27-2017 End: 03-27-2017 Ambulatory BRANDEN SHAH (PA) [facility] Start: 02-14-2017 End: 02-14-2017 Ambulatory BRANDEN SHAH (PA) [facility] Procedures Date Procedure Procedure Detail Performing Clinician Start: 09-09-2024 Blood count smear mcrscp w/mnl difrntl wbc count Dr. Ashley Dickey MD Work Phone: Start: 09-09-2024 Mean corpuscular hemoglobin concentration determination Dr. Ashley Dickey MD Work Phone: Start: 09-09-2024 Nucleated red blood cell count procedure Dr. Ashley Dickey MD Work Phone: Start: 09-09-2024 Platelet mean volume determination Dr. Stacey Dickey MD Work Phone: Start: 09-08-2024 Plain x-ray of pelvis and lower extremity Dr. Ashley Dickey MD Work Phone: Start: 08-27-2024 Blood count smear mcrscp w/mnl [...] Ashley mcdonald MD Work Phone: Start: 08-19-[address] [place] [address] Ashley Dickey MD Work Phone: [...] or Population) (1 - 1-dose 75+ series) [facility] Start: 09-08-2024 Plain x-ray of pelvi s and lower extremity HIP, UNI W/ Pelvis 2-3 Views [facility] Start: 09-08-2024 XR Pelvis and Hip Views [facility] Start: 08-27-2024 Patient discharge [facility] Start: 08-27-2024 [facility] Start: 08-26-2024 Care planning and pr oblem solving actions [facility] Start: 08-24-2024 Blood culture [facility] Start: 08-24-2024 [facility] Start: 08-23-2024 End: 08-23-2024 [facility] Start: 08-23-2024 Blood culture [facility] Start: 08-23-2024 [facility] Start: 08-23-2024 Consultation [facility] Start: 08-22-2024 End: 08-22-2024 [facility] Start: 08-21-2024 Speech therapy assessment [facility] Start: 08-20-2024 Skin care [facility] Start: 08-20-2024 Ambulation therapy management [facility] Start: 08-20-2024 Application of device [facility] Start: 08-20-2024 Exercises [facility] Start: 08-20-2024 Following clinical p athway protocol [facility] Start: 08-20-2024 Neurovascular assessment [facility] Start: 08-20-2024 Oxygen therapy [facility] Start: 08-20-2024 Patient education [facility] [facility] Start: 08-20-2024 Provision of activit y privileges [facility] Start: 08-20-2024 Recommendation to co ilia with treatment [facility] Start: 08-20-2024 Referral to occupati onal therapist [facility] Start: 08-20-2024 Referral to service [facility] Start: 08-20-2024 Vital signs measurements [facility] Start: 08-20-2024 Wound care [facility] Start: 08-20-2024 End: 08-20-2024 [facility] Start: 08-20-2024 Referral to gastroenterology service [facility] Start: 08-20-2024 Care planning and pr oblem solving actions [facility] Start: 08-19-2024 Introduction of urin anjum catheter [facility] Start: 08-19-2024 Consultation [facility] Start: 08-19-2024 Application of intermittent pneumatic compression device [facility] Start: 08-19-2024 Following clinical p athway protocol [facility] Start: 08-19-2024 Cardiac monitoring [facility] Start: 08-19-2024 Catheterization of vein [facility] Start: 08-19-2024 Inhalation therapy procedure [facility] Start: 08-19-2024 Notification of physician [facility] Start: 08-19-2024 Vital signs measurements [facility] Start: 08-19-2024 [facility] Start: 08-19-2024 Respiratory pathogen s DNA and RNA panel - Respiratory specimen by KYLIE with probe detection [facility] Start: 08-19-2024 Taking nasal swab [facility] Start: 08-19-2024 Hospital admission, emergency, from emergency room, medical nature [facility] Start: 08-19-2024 [place] measurement [facility] Start: 08-19-2024 Computed tomography of abdomen and pelvis with intravenous contrast Abdomen/Pelvis W IV Cont ONLY [facility] Start: 08-19-2024 CT angiography of ch est with contrast CTA Chest W/WO Contrast [facility] Start: 08-19-2024 CT of head without contrast Brain/Head without Contrast [facility] Start: 08-19-2024 Admission procedure [facility] Start: 08-19-2024 End: 08-19-2024 Consultation [facility] Start: 08-19-2024 Patient referral to dietitian [facility] Start: 08-18-2024 End: 08-18-2024 [facility] Start: 08-18-2024 Bacteria identified in Blood by Culture Blood Culture [facility] Start: 08-18-2024 Bacteria identified in Urine by Culture Urine Culture [facility] Start: 08-06-2024 End: 08-06-2024 Patient encounter procedure 08/06/2024 2:00 PM EDT Office Visit [facility] [address] [facility] [address] [place] [address] Maximo Koehler MD [address] [facility] [address], [facility] [address] [place] [address] [facility] Start: 06-01-2024 End: 06-17-2024 Prostate specific Ag [Mass/volume] in Serum or Plasma Prostate Specific Antigen Lab Routine Nocturia Expected: 06/01/2024 (Approximate), Expires: 06/17/2024 [facility] Service Area Work Phone: Comment on above: Expected: 06/01/2024 (Approximate), Expires: 06/17/2024 Start: 05-12-2024 End: 05-12-2025 Basic metabolic 2000 panel - Serum or Plasma Basic Metabolic Panel Lab Routine Urinary retention Expected: 05/12/2024 (Approximate), Expires: 05/12/2025 [facility] Service Area Work Phone: Comment on above: Expected: 05/12/2024 (Approximate), Expires: 05/12/2025 Start: 01-08-2024 End: 01-07-2025 Basic metabolic 2000 panel - Serum or Plasma Basic Metabolic Panel Lab Routine Nocturia Expected: 01/08/2024 (Approximate), Expires: 01/07/2025 [facility] Service Area Work Phone: Comment on above: Expected: 01/08/2024 (Approximate), Expires: 01/07/2025 Start: 01-08-2024 End: 01-07-2025 CT Abdomen and Pelvis W contrast IV CT abdomen pelvis w IV contrast Imaging Routine Gross hematuria Expected: 01/08/2024, Expires: 01/07/2025 [facility] Work Phone: Comment on above: Expected: 01/08/2024 , Expires: 01/07/2025 Start: 01-08-2024 End: 01-07-2025 Prostate specific Ag [Mass/volume] in Serum or Plasma Prostate Specific Antigen Lab Routine Nocturia Expected: 01/08/2024 (Approximate), Expires: 01/07/2025 [facility] Work Phone: Comment on above: Expected: 01/08/2024 (Approximate), Expires: 01/07/2025 Start: 11-02-2023 COVID-19 Vaccine () COVID-19 Vaccine ( season) [facility] Start: 11-02-2023 Influenza vaccination [facility] Start: 06-18-2023 End: 06-18-2023 Patient encounter procedure 06/18/2023 1:15 PM EDT Office Visit [facility] [address] [facility] [address] [place] [id number] Narinder Christensen MD [address] [place] [address] [facility] Start: 05-14-2023 Patient discharge [facility] Start: 05-13-2023 Respiratory secretio n precautions [facility] Start: 05-13-2023 Consultation [facility] Start: 05-12-2023 Speech therapy assessment [facility] Start: 05-10-2023 Bacteria identified in Blood by Culture Blood Culture [facility] Start: 05-10-2023 End: 05-10-2023 Blood culture [facility] Start: 05-10-2023 End: 05-10-2023 [facility] Start: 05-10-2023 Following clinical p athway protocol [facility] Start: 05-10-2023 Aspiration precautions [facility] Start: 05-10-2023 Assessment of risk o f venous thromboembolism [facility] Start: 05-10-2023 Bacteria identified in Sputum by Culture [facility] Start: 05-10-2023 Documentation procedure [facility] Start: 05-10-2023 Fall prevention [facility] Start: 05-10-2023 Incentive spirometry [facility] Start: 05-10-2023 Inhalation therapy procedure [facility] Start: 05-10-2023 Insertion of cathete r into peripheral vein [facility] Start: 05-10-2023 Introduction of urin anjum catheter [facility] Start: 05-10-2023 Measuring intake and output [facility] Start: 05-10-2023 Oxygen therapy [facility] Start: 05-10-2023 Providing care accor ding to standard [facility] Start: 05-10-2023 Provision of activit y privileges [facility] Start: 05-10-2023 Referral to occupati onal therapist [facility] Start: 05-10-2023 Referral to service [facility] Start: 05-10-2023 Speech therapy assessment [facility] Start: 05-10-2023 Tobacco use cessatio n education [facility] Start: 05-10-2023 Legionella pneumophi la Ag [Presence] in Urine [facility] Start: 05-10-2023 Streptococcus pneumo niae antigen assay [facility] Start: 05-10-2023 Verification routine [facility] Start: 05-10-2023 Admission procedure [facility] Start: 05-10-2023 [facility] Start: 03-19-2023 End: 03-19-2023 Patient encounter procedure 03/19/2023 1:30 PM EST Office Visit [facility] [address] [place] [id number] Narinder Christensen MD [address] [place], [place] [id number] [facility] Start: 03-05-2023 End: 03-05-2024 Prostate specific Ag [Mass/volume] in Serum or Plasma Prostate Specific Antigen Lab Routine Nocturia Expected: 03/05/2023 (Approximate), Expires: 03/05/2024 [facility] Service Area Work Phone: Comment on above: Expected: 03/05/2023 (Approximate), Expires: 03/05/2024 Start: 11-01-2022 COVID-19 Vaccine ( season) COVID-19 Vaccine ( season) [facility] Start: 11-01-2022 Influenza vaccination Influenza Vacc ine (#1) [facility] Start: 10-10-2021 CYSTOSCOPY, Provider : [facility]TIZ UROLOGY PROCEDURE BRADLEY,[id number], Status: Pen, Time: 10:30 AM CYSTOSCOPY, Provider: ORTIZ UROLOGY PROCEDURE BRADLEY,[id number], Status: Pen, Time: 10:30 AM [facility] Work Phone: Start: 2010 Zoster Vaccines (1 of 2) Zoste r Vaccines (1 of 2) [facility] Start: 1982 DTaP/Tdap/Td Vaccine s (1 - Tdap) DTaP/Tdap/Td Vaccines (1 - Tdap) [facility] Start: 11-24-1979 Pneumococcal vaccination Pneum ococcal Vaccine (1 of 2 - PCV) [facility] Start: 1978 Diabetes mellitus screening Diabetes Screening [facility] Start: 1978 Hepatitis C screening Hepatitis C Sc reening [facility] Start: 1966 Pneumococcal Vaccine : Pediatrics (0 to 5 Years) and At-Risk Patients (6 to 64 Years) (1 - PCV) Pneumococcal Vaccine: Pediatrics (0 to 5 Years) and At-Risk Patients (6 to 64 Years) (1 - PCV) [facility] Start: 1966 Pneumococcal Vaccine : Pediatrics (0 to 5 Years) and At-Risk Patients (6 to 64 Years) (1 of 2 - PCV) Pneumococcal Vaccine: Pediatrics (0 to 5 Years) and At-Risk Patients (6 to 64 Years) (1 of 2 - PCV) [facility] Start: 1961 MMR Vaccines (1 of 1 - Standard series) MMR Vaccines (1 of 1 - Standard series) [facility] Start: 05-23-1961 COVID-19 Vaccine (#1) COVID-19 Vacci ne (#1) [facility] Start: 1960 HIV screening HIV Screening [facility] Start: 1960 Lipid panel Lipid Panel [facility] Start: 1960 Screening for malign ant neoplasm of colon [facility] Start: 1960 Thyroid stimulating hormone measurement TSH Level [facility] Start: 1960 Yearly Adult Physical Yearly Adult P hysical [facility] Alanine aminotransfe rase [Enzymatic activity/volume] in Serum or Plasma [facility] Albumin [Mass/volume ] in Serum or Plasma [facility] Alkaline phosphatase [Enzymatic activity/volume] in Serum or Plasma [facility] Amphetamines [Presen ce] in Urine by Screen method >1000 ng/mL [facility] Anion gap measurement [facility] Aspartate aminotrans ferase [Enzymatic activity/volume] in Serum or Plasma [facility] Benzodiazepine measurement, urine [facility] Bilirubin, total measurement [facility] BUN/Creatinine ratio [facility] Calcium [Mass/volume ] in Serum or Plasma [facility] Carbon dioxide, tota l [Moles/volume] in Serum or Plasma [facility] Chloride [Moles/volu me] in Serum or Plasma [facility] Cocaine measurement, urine [facility] Cortisol [Mass/volum e] in Serum or Plasma [facility] Creatinine [Moles/vo lume] in Serum or Plasma [facility] Erythrocyte mean corpuscular volume determination [facility] Ethanol [Mass/volume ] in Serum or Plasma [facility] fentaNYL [Presence] in Urine by Screen method [facility] Glucose [Mass/volume ] in Serum or Plasma [facility] Hematocrit [Volume Fraction] of Blood [facility] Hemoglobin [Mass/vol ume] in Blood [facility] Hemoglobin A1c/Hemoglobin.total in Blood [facility] Leukocytes [#/volume ] in Blood [facility] Mean corpuscular hemoglobin concentration determination [facility] Mean corpuscular hemoglobin determination [facility] Measurement of renal function [facility] Methadone measuremen t, urine [facility] Neutrophil count [facility] Neutrophil percent differential count [facility] Patient referral [facility] Work Phone: Phencyclidine [Prese nce] in Urine [facility] Platelets [#/volume] in Blood [facility] Potassium [Moles/vol ume] in Serum or Plasma [facility] Red blood cell count [facility] Red cell distributio n width determination [facility] Sodium [Moles/volume ] in Serum or Plasma [facility] Total protein measurement [facility] Urea nitrogen [Mass/volume] in Serum or Plasma [facility] Urine cannabinoid measurement [facility] Urine culture [facility] Urine opiate measurement [facility] Valproate [Mass/volu me] in Serum or Plasma [facility] Payers Date Payer Category Payer Self-pay [id number] 2017 Medicaid [id number] 2017 Medicaid [id number] 1960 Unknown [id number] 2.16. 840.1.277665.3.579.2.356 1960 Unknown [id number] 2.16. 840.1.962374.3.579.2.356 1960 Unknown [id number] 2.16. 840.1.921042.3.579.2.356 1960 Unknown [id number] 2.16. 840.1.878952.3.579.2.356 1960 Unknown [id number] 2.16.8 40.1.798485.3.579.2.1243 1960 Unknown [id number] 2.16. 840.1.532339.3.579.2.1244 1960 Unknown [id number] 2.16. 840.1.878161.3.579.2.1244 1960 Unknown [id number] 2.16.8 40.1.168188.3.579.2.1244 Unknown MEDICAID Unknown [id number] Unknown [id number] 2.16.8 40.1.117438.3.579.2.462 Unknown [id number] 2.16.8 40.1.353588.3.579.2.462 Unknown [id number] 2.16.8 40.1.749829.3.579.2.462 Unknown [id number] 2.16.8 40.1.212875.3.579.2.462 Unknown [id number] 2.16.8 40.1.866690.3.579.2.462 Unknown [id number] 2.16.8 40.1.407075.3.579.2.462 Unknown [id number] 2.16.8 40.1.065679.3.579.2.462 Unknown [id number] 2.16.8 40.1.416557.3.579.2.462 Unknown [id number] 2.16.8 40.1.050364.3.579.2.462 Unknown [id number] 2.16.8 40.1.453970.3.579.2.462 Unknown [id number] 2.16.8 40.1.629770.3.579.2.462 Unknown [id number] 2.16.8 40.1.352361.3.579.2.462 Unknown [id number] 2.16.8 40.1.914794.3.579.2.462 Unknown [id number] 2.16.8 40.1.849176.3.579.2.462 Unknown [id number] 2.16.8 40.1.748076.3.579.2.462 Unknown [id number] 2.16.8 40.1.489708.3.579.2.462 Unknown [id number] 2.16.8 40.1.223597.3.579.2.462 Unknown [id number] 2.16.8 40.1.246561.3.579.2.462 Unknown [id number] 2.16.8 40.1.160649.3.579.2.462 Unknown [id number] 2.16.8 40.1.711794.3.579.2.462 Unknown [id number] 2.16.8 40.1.023826.3.579.2.462 Unknown [id number] 2.16.8 40.1.986167.3.579.2.462 Unknown [id number] 2.16.8 40.1.861801.3.579.2.462 Social History Date Type Detail Facility Start: 03-05-2023 End: 05-12-2024 Current every day smoker Current every day smoker [facility] Work Phone: Start: 11-05-2017 End: 05-10-2023 Tobacco smoking status NHIS Unknown if ever smoked [facility] Start: 1960 Sex Assigned At Male [facility] Start: 03-05-2023 End: 08-19-2024 Tobacco smoking status NHIS Smokes tobacco daily [facility] History of tobacco use Cigarette Smoker [facility] Work Phone: Start: 03-05-2023 End: 06-18-2023 Tobacco use and exposure Smokeless tobacco non-user [facility] Work Phone: Start: 03-05-2023 End: 05-12-2024 Tobacco use panel [facility] Work Phone: Start: 1960 Sex Assigned At Not on file [facility] Work Phone: Start: 03-09-2023 End: 05-12-2024 Exposure to SARS-CoV-2 (event) Not sure [facility] Medical Equipment Procedure Code Equipment Code [...] trochanteric fixation nail syste FDA Start: 08-20-2024 Goals Date Patient Goal Desired Activity /State Functional Status Date Assessment Result Facility 08-27-2024 Functional status Bedrest [facility] Work Phone: 05-14-2023 Functional status Ambulates [facility] Work Phone: Mental Status Date Assessment Result Facility 08-27-2024 Cognitive function Voice/Name [facility] Work Phone: 08-27-2024 Cognitive function Cooperative [facility] Work Phone: 08-18-2024 Cognitive function Voice/Name [facility] Work Phone: 05-14-2023 Cognitive function Voice/Name [facility] Work Phone: Clinical Notes 07-03-2020 to 08-27-2024 Note Date & Type Note Facility 08-27-2024 Discharge summary Note Date/Time August 27, 2024 1:01pm [facility] Medical Records Department [address] [place] [address] Discharge Summary 08/27/24 1256 MR#: [id number] Acct: [id number] Name: NANDO OCHOA Rep #:[id number] : 1960 63 From: Marciano Saeed PCP: Dr. Ashley Dickey MD Status:ADM IN Location: [facility] [id number] Providers Date of Admission: 08/19/24 Primary Care Physician: Dr. Ashley Dickey MD Consultations 08/19/24 01:30 Consult: Cold Roll Packer Sheet Iron / Pulmonary Medicine Routine Consulting Provider: Intensivists/Pulmonary Med Reason for Consult: UTI with Hypotension and Adrenal Insufficiency. EMERGENT Consult: No MD Notified: Yes Date Notified: 08/23/24 Time Notified: 08:19 Method of Notification: Text 08/19/24 04:12 Consult: Orthopedics Routine Consulting Provider: Amauri Hermosillo Reason for Consult: Acute Left Hip Fx on CT. EMERGENT Consult: No MD Notified: Yes Date Notified: 08/19/24 Time Notified: 04:12 Method of Notification: ED Physician Initiated 08/20/24 09:02 Consult: Gastroenterology Routine Consulting Provider: [facility] Reason for Consult: stercoral colitis of RS and whole colon, fecolith EMERGENT Consult: No MD Notified: Yes Date Notified: 08/20/24 Time Notified: 09:02 Method of Notification: Verbal 08/23/24 08:11 Consult: Infectious Disease Routine Consulting Provider: Laci Jackson Reason for Consult: MRSA bacteremia EMERGENT Consult: No Notified: Yes Date Notified: 08/23/24 Time Notified: [...] a 63-year-old male who presented to [facility] ED on 08/18/2024 with altered mental [...] benztropine. Treating with IV Keppra while inpatient. [place] level normal but will defer to nephrology [...] Neut % (Auto) 52.9, Lymph % (Auto) 31.0,Ceiba % (Auto) 10.1 H, Eos % (Auto) [...] 1,000 mg IV Q12H 39 Days Qty: 64928 0RF Rx Instructions: stop date 10/04/24. Dx: MRSA bacteremia. Weekly bmp, cbc, and vanc trough. Fax to [phone]. Routine picc care per protocol. oxycodone 5 [...] [Primary Care Provider] - Within 2 Weeks Elizabeth Moreno NP-C [Med Staff - Adv Practice Prof] - Within 2 Weeks Disposition Disposition (needs filled in before D/C Order can be placed): Intermediate Facility 08/27/24 1257 <Electronically signed by Marciano [...] Dr. Ashley Dickey MD ~* Signed [facility] Work Phone: 1(436) 684-614506-27-2025 Discharge summary Author Marciano Guerin [facility] Note Date/Time August 27, 2024 12:5 5pm [facility] Medical Records Department [address] [place] [address] Transfer to [facility] Care MR#: [id number] Acct: [id number] Name: NANDO OCHOA Rep #:[id number] : 1960 63 From: Marciano Saeed PCP: Dr. Ashley Dickey MD Status:ADM IN Certification of patient admission REQUIRED AT TIME OF ADMISSION. I CERTIFY THAT POST-HOSPITAL ECF SERVICES ARE REQUIRED TO BE GIVEN ON AN IN-PATIENT BASIS BECAUSE OF THE ABOVE NAMED PATIENT'S NEED FOR SHELTER CARE ON A CONTINUING BASIS FOR THE [...] a 63-year-old male who presented to [facility] ED on 08/18/2024 with altered mental [...] benztropine. Treating with IV Keppra while inpatient. [place] level normal but will defer to nephrology [...] Recommendations/Changes: Continue Regular diet with texture/consistency per INVESTIGATOR WELFARE/MD to manage swallowing difficulties. Discharge Plan Admission [...] 1,000 mg IV Q12H 39 Days Qty: 92480 0RF Rx Instructions: stop date 10/04/24. Dx: MRSA bacteremia. Weekly bmp, cbc, and vanc trough. Fax to [phone]. Routine picc care per protocol. oxycodone 5 [...] in before D/C Order can be placed): Intermediate Facility (4) Hip fracture Qualifiers: Encounter type: initial encounter Fracture type: closed Laterality: left Qualified Code(s): S72.002A - Fracture of unspecified part of neck of left femur, initial encounter for closed fracture 08/27/24 1255 <Electronically signed by Marciano Guerin MD> Cosigner [...] MD; Dr. Antonia Parsons MD ~ [facility] Work Phone: 1(561) 258-302206-27-2025 Consult note Author Wilver Negron [facility] Note Date/Time August 27, 2024 10:5 6am [facility] Medical Records Department [address] [place] [address] Pharmacokinetic/Renal -Consult 08/26/241818 MR#: [id number] Acct: [id number] Name: NANOD OCHOA Rep #:[id number] : 1960 63 From: Wilver Negron PCP: Dr. Ashley Dickey MD Status:ADM IN Location: [place] [address] Consult Antibiotic Management Pharmacy has been consulted [...] signed by Wilver feliciano> Date _ Wilver Negron 08/27/24 1056 <Electronically signed by Laci choudhary MD> Cosigner Signature (if applicable): Date Laci Jackson MD CC: ~ Signed [facility] Work Phone: 1(759) 427-535206-27-2025 [facility]06-26-2025 Progress note Author Marciano Guerin [facility] Note Date/Time August 26, 2024 4:19 pm [facility] Medical Records Department [address] [place] [address] Progress Note - Hospitalist 08/26/24 1611 MR#: [id number] Acct: [id number] Name: NANDO OCHOA Rep #:[id number] : 1960 63 From: Marciano Saeed PCP: Dr. Ashley Dickey MD Status:ADM [id number] Reason for Visit Reason for Visit: [...] a 63-year-old male who presented to [facility] ED on 08/18/2024 with altered mental [...] benztropine. Treating with IV Keppra while inpatient. [place] level normal but will defer to nephrology [...] 35 minutes. Charges/Coding Visit Charges Inpatient E&M: 65842 Subs Hosp L2 08/26/24 1619 <Electronically signed by Marciano Guerin MD> Cosigner Signature (if applicable): CC: ~ Signed [facility] Work Phone: 1(249) 781-984306-26-2025 Progress note Author Laci Jackson [facility] Note Date/Time August 26, 2024 9:55 am [facility] Medical Records Department [address] [place] [address] Progress Note - Infect Disease 08/26/2453 MR#: [id number] Acct: [id number] Name: NANDO OCHOA Rep #:[id number] : 1960 63 From: Laci feliciano MD PCP: Dr. Ashley Dickey MD Status:ADM IN Location: [place] [address] Physical Exam Narrative Feeling better, no fever, [...] 3-4 weeks. Will follow, wrote rx, d/w pillowcase cutter 08/26/24 1747 <Electronically signed by Laci Jackson MD> Cosigner Signature (if applicable): CC: ~ Signed [facility] Work Phone: 1(564) 328-801306-26-2025 Consult note Author Kaveh Ragsdale [facility] Note Date/Time August 26, 2024 9:05 am [facility] Medical Records Department [address] [place] [address] Pharmacokinetic/Renal -Consult 08/24/24 1834 MR#: [id number] Acct: [id number] Name: NANDO OCHOA Rep #:[id number] : 1960 63 From: Kaveh medeiros PCP: Dr. Ashley Dickey MD Status:ADM IN Location: [place] [address] Consult Antibiotic Management Pharmacy has been consulted [...] [date and time ordered]: 08/26/24 16:30 08/24/24 1836 <Electronically signed by Kaveh hoskins> Date _ Kaveh Ragsdale 08/26/24 0905 <Electronically signed by Laci choudhary MD> Cosigner Signature (if applicable): Date Laci Jackson MD CC: ~ Signed [facility] Work Phone: 1(928) 563-879806-26-2025 Progress note Author Roxanne More [facility] Note Date/Time August 26, 2024 12:1 8am [facility] Medical Records Department [address] [place] [address] Progress Note - Hospitalist 08/26/24 0017 MR#: [id number] Acct: [id number] Name: NANDO OCHOA Rep #:[id number] : 1960 63 From: Roxanne More MD PCP: Dr. Ashley Dickey MD Status:ADM IN Location: [place] [address] Hospitalist Note Patient constantly removing telemetry, currently SR, appears VS clinically stable, will change LOC. 08/26/24 0018 <Electronically signed by Roxanne More MD> Cosigner Signature (if applicable): CC: ~ Signed [facility] Work Phone: 1(859) 794-719606-25-2025 Progress note Author Redd [facility] Note Date/Time August 25, 2024 4:49 pm [facility] Medical Records Department [address] [place] [address] Progress Note - Hospitalist 08/25/24 1213 MR#: [id number] Acct: [id number] Name: NANDO OCHOA Rep #:[id number] : 1960 63 From: Redd smiley DO PCP: Dr. Ashley Dickey MD Status:ADM IN Location: [place] [address] Reason for Visit Reason for Visit: Diagnoses [...] a 63-year-old male who presented to [facility] ED on 08/18/2024 with altered mental [...] benztropine. Treating with IV Keppra while inpatient. [place] level normal but will defer to nephrology [...] 35 minutes. Charges/Coding Visit Charges Inpatient E&M: 59953 Subs Hosp L2 08/25/24 1795 <Electronically signed by Redd Laughlin DO> Cosigner Signature (if applicable): CC: ~ Signed [facility] Work Phone: [phone]) 110-541706-25-2025 Progress note Author Jermaine Galdamez [facility] Note Date/Time August 25, 2024 1:55 pm [facility] Medical Records Department [address] [place] [address] Progress Note - Infect Disease 08/25/24 1354 MR#: [id number] Acct: [id number] Name: NANDO OCHOA Rep #:[id number] : 1960 63 From: Jermaine Galdamez MD PCP: Dr. Ashley Dickey MD Status:ADM IN Location: [place] [address] ID ID: Route of nutrition/ use of [...] follow repeat blood cultures and laboratory studies 08/25/241354 <Electronically signed by Jermaine Galdamez MD> Cosigner Signature (if applicable): CC: ~ Signed [facility] Work Phone: 1([phone]) 929-863606-25-2025 Progress note Author Roxanne More [facility] Note Date/Time August 25, 2024 3:58 am [facility] Medical Records Department [address] [place] [address] Progress Note - Hospitalist 08/25/247 MR#: [id number] Acct: [id number] Name: NANDO OCHOA Rep #:[id number] : 1960 63 From: Roxanne More MD PCP: Dr. Ashley Dickey MD Status:ADM IN Location: [place] [address] Hospitalist Note SNF called and requested update. Noted he is normally on lactulose for hyperammonemia. Will obtain NH level to be cautious and requested med update. 08/25/24357 <Electronically signed by Roxanne More MD> Cosigner Signature (if applicable): CC: ~ Signed [facility] Work Phone: [phone]) 390-391406-24-2025 Progress note Author Hugo Friend [facility] Note Date/Time August 24, 2024 6:42 pm [facility] Medical Records Department [address] [place] [address] Progress Note 08/24/24 1839 MR#: [id number] Acct: [id number] Name: NANDO OCHOA Rep #:[id number] : 1960 63 From: Hugo Pacheco DO PCP: Dr. Ashley Dickey MD Status:ADM IN Location: [place] [address] Progress Note Patient pulled NG tube out [...] Continue bowel regimen. Visit Charges Inpatient E&M: 91232 Subs Hosp L3 08/24/24 184 <Electronically signed by Hugo Pacheco DO> Hugo Pacheco DO Cosigner Signature (if applicable): CC: ~ Signed [facility] Work Phone: 1([phone]) 185-889706-24-2025 Progress note Author Redd Laughlin [facility] Note Date/Time August 24, 2024 3:11 pm [facility] Medical Records Department [address] [place] [address] Progress Note - Hospitalist 08/24/24 1137 MR#: [id number] Acct: [id number] Name: NANDO OCHOA Rep #:[id number] : 1960 63 From: Redd smiley DO PCP: Dr. Ashley Dickey MD Status:ADM IN Location: [place] [address] Reason for Visit Reason for Visit: Diagnoses [...] a 63-year-old male who presented to [facility] ED on 08/18/2024 with altered mental [...] benztropine. Treating with IV Keppra while inpatient. [place] level normal but will defer to nephrology [...] 35 minutes. Charges/Coding Visit Charges Inpatient E&M: 47710 Subs Hosp L2 08/24/24 1511 <Electronically signed by Redd Laughlin DO> Cosigner Signature (if applicable): CC: ~ Signed [facility] Work Phone: 1([phone]) 978-228706-24-2025 Progress note Author Laci Jackson [facility] Note Date/Time August 24, 2024 11:2 0am [facility] Medical Records Department [address] [place] [address] Progress Note - Infect Disease 08/24/24 1119 MR#: [id number] Acct: [id number] Name: NANDO OCHOA Rep #:[id number] : 1960 63 From: Laci feliciano MD PCP: Dr. Ashley Dickey MD Status:ADM IN Location: [place] [address] Physical Exam Narrative Sleeping this AM, no [...] Signature (if applicable): CC: ~ Signed [facility] Work Phone: 1([phone]) 717-968706-23-2025 Progress note Author Redd Laughlin [facility] Note Date/Time August 23, 2024 4:12 pm [facility] Medical Records Department [address] [place] [address] Progress Note - Hospitalist 08/23/24 1009 MR#: [id number] Acct: [id number] Name: NANDO OCHOA Rep #:[id number] : 1960 63 From: Redd smiley DO PCP: Dr. Ashley Dickey MD Status:ADM IN Location: [place] [address] Reason for Visit Reason for Visit: Diagnoses [...] Neut % (Auto) 63.4, Lymph % (Auto) 21.9,Ceiba % (Auto) 6.3, Eos % (Auto) 7.8 [...] a 63-year-old male who presented to [facility] ED on 08/18/2024 with altered mental [...] benztropine. Treating with IV Keppra while inpatient. [place] level normal but will defer to nephrology [...] 35 minutes. Charges/Coding Visit Charges Inpatient E&M: 65277 Subs Hosp L2 08/23/24 1612 <Electronically signed by Redd Laughlin DO> Cosigner Signature (if applicable): CC: ~ Signed [facility] Work Phone: 1([phone]) 191-133506-23-2025 Consult note Author Lionel Dean [facility] Note Date/Time August 23, 2024 3:50 pm [facility] Medical Records Department [address] [facility] [address] Anesthesia Postop Eval II 08/23/24 1548 MR#: [id number] Acct: [id number] Name: NANDO OCHOA Rep #:[id number] : 1960 63 From: Lionel Saeed PCP: Dr. Ashley Dickey MD Status:ADM IN Y Race: C Location: [place] [address] 91 Anesthesia Postop Eval I Sum Postop Eval Completion status Anesthesia document: Postop Eval 1 completed: Yes Anesthesia Postop Eval I Summary Anesthesia Postop Eval I Summary: Anesthesia Postop Eval I: Assessment Summary Airway patent Yes 08/23/24 15:22 CLINICAL RESEARCH ADMINISTRATOR.APAT Spontaneous unlabored Yes 08/23/24 15:22 CLINICAL RESEARCH ADMINISTRATOR.APAT respirations Mental status Awake 08/23/24 15:22 CLINICAL RESEARCH ADMINISTRATOR.APAT nausea No 08/23/24 15:22 CLINICAL RESEARCH ADMINISTRATOR.APAT Vomiting No 08/23/24 15:22 CLINICAL RESEARCH ADMINISTRATOR.APAT Anesthesia Postop Eval I: Fluid Summary Crystalloid volume administer 200 08/23/24 15:22 CLINICAL RESEARCH ADMINISTRATOR.APAT (ml) Colloids volume administered ( ml) Blood Product volume administered (ml) Total IV fluid infused 200 08/23/24 15:22 CLINICAL RESEARCH ADMINISTRATOR.APAT Anesthesia Postop Eval I: Summary Notes Anesthesia Complication No 08/23/24 15:22 CLINICAL RESEARCH ADMINISTRATOR.APAT Anesthesia Complication Comment: Post-operative progress note Anesthesia: Postop Eval II Evaluation Mental status: Awake and Uncooperative Pain Level: 0 nausea: No Vomiting: No Progress Note Post-operative progress note: Attempting to pull out NG Tube, requiring soft restraints. Complications Anesthesia Complication: No 08/23/24 1550 <Electronically signed by Lionel Dean MD> Date _ Lionel Dean MD Cosigner Signature: Date CC: ~ Signed [facility] Work Phone: [phone]) [phone] Consult note Author Elder Clement [facility] Note Date/Time August 23, 2024 3:22 pm [facility] Medical Records Department [address] [place] [address] Anesthesia Postop Eval I 08/23/24 1450 MR#: [id number] Acct: [id number] Name: NANDO OCHOA Rep #:[id number] : 1960 63 From: Elder Clement CRNA PCP: Dr. Ashley Dickey MD Status:ADM IN Y Race: C Location: [place] [address] Anesthesia: Postop Eval I Current Vital Signs [...] Elder morrell CRNA> Date _ Elder Clement CLINICAL RESEARCH ADMINISTRATOR Cosigner Signature: Date CC: ~ Signed [facility] Work Phone: 1(611) 101-420906-23-2025 Progress note Author Hugo Pacheco [facility] Note Date/Time August 23, 2024 2:44 pm [facility] Medical Records Department [address] [place] [address] Progress Note 08/23/24 1442 MR#: [id number] Acct: [id number] Name: NANDO OCHOA Rep #:[id number] : 1960 63 From: Hugo Pacheco DO PCP: Dr. Ashley Dickey MD Status:ADM IN Location: [place] [address] Progress Note Patient was not able to [...] ASA of 3. Visit Charges Inpatient E&M: 57664 Subs Hosp L2 08/23/24 1444 <Electronically signed by Hugo Pacheco DO> Hugoalisha Pacheco DO Cosigner Signature (if applicable): CC: ~ Signed [facility] Work Phone: [phone] Consult note Author Lionel Dean [facility] Note Date/Time August 23, 2024 1:59 pm [facility] Medical Records Department [address] [place] [address] Pre-Anesthesia Evaluation 08/23/24 1358 MR#: [id number] Acct: [id number] Name: NANDO OCHOA Rep #:[id number] : 1960 63 From: Lionel Saeed PCP: Dr. Ashley Dickey MD Status:ADM IN Y Race: C Location: [place] [address] ASA Classification* ASA Classification ASA Classification: 4 [...] fracture fixation. Anesthesia History Anesthesia History - loan representative: Anesthesia History - loan representative Hx Hospitalization Any Problems With Anesthesia Cholinesterase [...] take am of surgery PONV PONV - loan representative: PONV - loan representative Female HX of Motion Sickness HX of N/V After Surgery Non-Smoker Duration of Surgery greater than 60 minutes Number of Risk Factors PONV Score Height & Weight Height & Weight: Anesthesia: Height & Weight Height 5 ft 10 in 08/19/24 11:09 Weight: 72.8 kg 08/23/24 04:45 Body Mass Index (BMI) 22.9 08/23/24 04:45 Respiratory Assessment Respiratory Assessment - loan representative: Respiratory Tract Infection Hx - loan representative Hx Respiratory Tract Infection No 08/20/24 11:44 STOP Sleep Apnea STOP Sleep Apnea - loan representative: STOP Sleep Apnea - loan representative Hx Hypertension Yes 08/21/24 11:38 Hx Sleep [...] Tobacco Use History Tobacco Use History - loan representative: Tobacco Use History - loan representative Tobacco Use Smoking Status Current every day smoker 08/19/24 02:16 Hx Tobacco Use No 08/19/24 02:16 Years Smoking Packs Smoked per Day Smoking Cessation Date was within the last 15 years Hx Smoking Cessation Date Hx Smoking Cessation Counseling Hematologic Medial History Hematologic Hx - loan representative: Hematologic Medical Hx - net software architect Hx of Blood Transfusion Hx of Transfusion in last 3 Months Date of Last Transfusion (if within last 3 months) Ever experience any problems with transfusion(s)? Specify any problems Hx of Preganancy in last 3 Months Nurse Filling Out Transfusion & Questions: Date: Time: Patient unable to answer at Yes 08/19/24 02:16 this time (ie. confused, unrespo /Reproduction History /Reproductive History - loan representative: /Reproductive Hx- loan representative Hx Now Gestational Age (in weeks): EDC: [...] 07:00 08/22/24 22:38 Apixaban 2.5 Mg Tablet ([facility]) PO 2.5 mg BID FRANCISCO Administration Aripiprazole [...] mls/hr 08/19/24 01:31 08/23/24 08:06 IV Infused .[id number] PRN Infusion Saline Flush Sodium Chloride 250 mls @ 15 mls/hr 08/19/24 01:31 IV .[id number] PRN Additional IVPB Infusion Levetiracetam 1,000 mg [...] Vancomycin Trough/Random Due [facility] 08/25/24 00:30 DAILY [facility] Medical History MRSA (methicillin resistant Staphylococcus aureus) [...] 2.5 mg/3 mL 2.5 mg inhalation Q6H NM N PRN Sob 05/26/17 Unknown History (0.083 %) solution for nebulization &/Or Wheezing aluminum-mag hydroxide-simethicone 30 ml PO Q4H PRN NM N Indigestion 05/26/17 Unknown History 400 mg-400 [...] 19:37 Social History household members: none housing: snf Smoking Status: Current every day smoker tobacco type: cigarettes alcohol intake: never substance use type: does not use Review of Systems (Anesthesia) ROS Narrative System reviewed and no additional complaints, except as documented. 08/23/24 8392 <Electronically signed by Lionel Dean MD> Date _ [facility] Date CC: ~ Signed [facility] Work Phone: 1([phone]) [phone] Procedure [facility] 08-23-2024 Procedure [facility]06-23-2025 Consult note Author Laci [facility] Note Date/Time August 23, 2024 1:06 pm [facility] Medical Records Department [address] [place] [address] Consultation - Infectious Dx 08/23/24 1300 MR#: [id number] Acct: [id number] Name: NANDO OCHOA Rep #:[id number] : 1960 63 From: Laci feliciano MD PCP: Dr. Ashley Dickey MD Status:ADM IN Location: [place] [address] Assessment & Plan Assessment/Plan (1) MRSA bacteremia: [...] ROS from patient due to mental status. [facility] Medical History MRSA (methicillin resistant Staphylococcus aureus) [...] 2.5 mg/3 mL 2.5 mg inhalation Q6H NM N PRN Sob 05/26/17 Unknown History (0.083 %) solution for nebulization &/Or Wheezing aluminum-mag hydroxide-simethicone 30 ml PO Q4H PRN NM N Indigestion 05/26/17 Unknown History 400 mg-400 [...] 19:37 Social History household members: none housing: snf Smoking Status: Current every day smoker tobacco [...] Neut % (Auto) 63.4, Lymph % (Auto) 21.9,Ceiba % (Auto) 6.3, Eos % (Auto) 7.8 [...] CC: Dr. Ashley Dickey MD~ Signed [facility] Work Phone: 1([phone]) 482-635606-23-2025 Consult note Author Stan Mora [facility] Note Date/Time August 23, 2024 12:4 1am [facility] Medical Records Department [address] [place] [address] Pharmacokinetic/Renal -Consult 08/23/24 0039 MR#: [id number] Acct: [id number] Name: NANDO OCHOA Rep #:[id number] : 1960 63 From: Stan Mora PCP: Dr. Ashley Dickey MD Status:[facility]M [facility] Antib[facility] Management Pharmacy has been consulted [...] (if applicable): Date CC: ~ Signed [facility] Work Phone: 1(369) 443-255906-22-2025 Progress note Author Marciano Guerin [facility] Note Date/Time August 22, 2024 3:54 pm [facility] Medical Records Department [address] [place] [address] Progress Note - Hospitalist 08/22/24 1349 MR#: [id number] Acct: [id number] Name: NANDO OCHOA Rep #:[id number] : 1960 63 From: Marciano Saeed PCP: Dr. Ashley Dickey MD Status:ADM IN Location: [place] [address] Reason for Visit Reason for Visit: Diagnoses [...] (Auto) 70.4 H, Lymph % (Auto) 18.2 L,Ceiba % (Auto) 7.8, Eos % (Auto) 2.9, [...] (Auto) 68.5, Lymph % (Auto) 18.6 L, Ceiba % (Auto) 8.0, Eos % (Auto) 4.5, [...] PLAN: Plan 63-year-old gentleman was admitted from [facility] for evaluation of altered mental status, [...] Respiratory panel negative. 08/22: Discussed with the tire mechanic regarding vegetation in the echo, TTE although [...] divalproex as patient already on IV Keppra. [place] level normal. Follow-up with the nephrology whether [...] Dulcolax suppository and soapsuds enema. Discussed with data management consultant History of admission here from May 10, [...] SINGLE VIEW OF THE CHEST. Reading Location: [id number] Abdomen/Pelvis CT 08/19/24 00:30 IMPRESSION: Moderate osteopenia. [...] deviation. Minimal pericardial effusion. Reading Location: RAD-CHAMSUDDIN1 Venous Doppler Study 08/19/24 02:35 Interpretation Summary [...] IMPRESSION: Intertrochanteric fracture, nondisplaced, suspected Reading Location: [facility] Echocardiogram 08/19/24 08:42 Interpretation Summary The estimated [...] conditions), discussion with the pharmacy and the data management consultant, review of labs and imaging is 35 minutes. Visit Charges Inpatient E&M: 10200 Subs Hosp L3 08/22/24 1407 <Electronically signed by Marciano Guerin MD> Cosigner Signature (if applicable): CC: ~ Signed ADDENDUM by Dr. Marciano Guerin MD on 08/22/24 at [address] Friend. Betts bowel prep ordered in preparation of colonoscopy tomorrow 08/22/24 1554<Electronically signed by Marciano Guerin MD> Cosigner Signature (if applicable): cc: ~* Signed [facility] Work Phone: 1(458) 253-648006-22-2025 Progress note Author Edwin Espinal [facility] Note Date/Time August 22, 2024 12:3 7pm [facility] Medical Records Department [address] [place] [address] Progress Note - Cold Roll Packer Sheet Iron 08/22/24 1230 MR#: [id number] Acct: [id number] Name: NANDO OCHOA Rep #:[id number] : 1960 63 From: Edwin Espinal MD PCP: Dr. Ashley Dickey MD Status:ADM IN Location: [place] [address]- 1 Objective Data Objective Data Vital Signs: Vital [...] 08/18/24 18:28 thru 08/22/24 11:50 Intake Total 77522.91 Output Total 7609 Balance 3318.91 Current Meds Ordered / Administered: Current meds ordered / Administered 3 Generic Name Dose Route Start Last Admin Trade Name Car PRN Reason Stop Dose Admin Acetaminophen 650 mg 08/21/24 10:54 08/21/24 17:38 Acetaminophen 325 Mg Tablet PO 650 mg Q6H PRN PRN Administration Pain 1-10 or Fever Albuterol Sulfate 2.5 mg 08/19/24 01:30 Albuterol 2.5 Mg/3 Ml Vial.Neb. INHALATION Q6H PRN PRN Sob &/Or Wheezing Apixaban 2.5 mg 08/21/24 07:00 08/21/24 21:54 Apixaban 2.5 Mg Tablet ([facility]) PO 2.5 mg BID FRANCISCO Administration Aripiprazole 10 mg 08/22/24 10:00 Aripiprazole 10 Mg Tablet PO DAILY [facility] Protocol Aripiprazole 5 mg 08/22/24 22:00 Aripiprazole 5 Mg Tablet PO QHS [facility] Protocol Atropine Sulfate 1 mg 08/21/24 10:00 [...] 500 Mg Tablet PO Not Given TIDCM [facility] Cholecalciferol 25 mcg 08/21/24 10:00 08/22/24 10:56 [...] 08/19/24 01:31 08/21/24 15:24 IV 0 mls/hr .[id number] PRN Infusion Saline Flush Sodium Chloride 250 mls @ 15 mls/hr 08/19/24 01:31 IV .[id number] PRN Additional IVPB Infusion Levetiracetam 1,000 mg in 100 mls @ 400 mls/hr 08/19/24 10:00 08/22/24 09:53 IV 400 mls/hr Q12 FRANCISCO Administration Vancomycin IV-PHARMACY TO DOSE 500 mls @ 250 mls/hr 08/21/24 10:00 1 each/ Sodium Chloride IV PRN PRN Rx to Dose Protocol Vancomycin HCl 1,000 mg in 200 mls @ 200 mls/hr 08/22/24 00:00 08/22/24 00:42 Vancomycin IV Infused Q12H FRANCISCO Infusion Dextrose 1,000 mls @ 75 mls/hr 08/21/24 14:20 08/22/24 10:40 IV 08/22/24 16:59 75 mls/hr .[id number] FRANCISCO Infusion Lactulose 20 gm 08/22/24 09:45 08/22/24 11:13 Lactulose 20 Gm/30 Ml Udc PO Not Given TID FRANCISCO Melatonin 10 mg 08/22/24 22:00 Melatonin 10 Mg Tablet PO QHS FRANCISCO Nicotine 7 mg 08/19/24 01:30 08/22/24 09:34 Nicotine 7 Mg Patch TD 7 mg DAILY FRANCISCO Administration Non-Formulary Medication 5 mg 08/22/24 10:00 Hydrocortisone PO DAILY FRANCISCO Oxycodone HCl 2.5 mg 08/20/24 13:54 Oxycodone 5 Mg Tablet PO Q4H PRN PRN Pain Score 4-10 Propranolol HCl 20 mg 08/22/24 10:00 Propranolol 10 Mg Tablet PO BID FRANCISCO Protocol Senna/Docusate Sodium 2 tablet 08/19/24 11:35 08/22/24 10:56 Senna/Docusate Sodium 1 Tablet PO 2 tablet BID FRANCISCO Administration Sodium Chloride 10 - 40 ml 08/19/24 01:31 08/20/24 21:49 0.9% Saline Lock 10 Ml Syringe IV 10 ml UD PRN Administration SALINE FLUSH Tamsulosin HCl 0.4 mg 08/22/24 17:30 Tamsulosin Hcl 0.4 Mg Capsule PO DAILY@1730 [facility] Vancomycin Protocol 1 lab 08/22/24 22:30 Vancomycin Trough/Random Due 08/23/24 00:30 DAILY [facility] Lab / Micro Data 08/22/24 06:08 08/22/24 05:07 Labs: Laboratory Results - last 24 hr 08/21/24 15:20: WBC Cancelled, Corrected WBC Cancelled, RBC Cancelled, Hgb Cancelled, Hct Cancelled, MCV Cancelled, MCH Cancelled, MCHC Cancelled, RDW Std Deviation Cancelled, RDW Coeff of Eyal Cancelled, Plt Count Cancelled, MPV Cancelled, Immature Gran % (Auto) Cancelled, Neut % (Auto) Cancelled, Lymph % (Auto) Cancelled, Ceiba % (Auto) Cancelled, Eos % (Auto) Cancelled, [...] Drop Cells Cancelled, Ovalocytes Cancelled, Stomatocytes Cancelled, [place] Bodies Cancelled, [place] Cells Cancelled, Bite Cells Cancelled, Crenated Cell [...] (Auto) 70.4 H, Lymph % (Auto) 18.2 L,Ceiba % (Auto) 7.8, Eos % (Auto) 2.9, [...] % (Auto) Cancelled, Lymph % (Auto) Cancelled, Ceiba % (Auto) Cancelled, Eos % (Auto) Cancelled, [...] Drop Cells Cancelled, Ovalocytes Cancelled, Stomatocytes Cancelled, [place] Bodies Cancelled, [place] Cells Cancelled, Bite Cells Cancelled, Crenated Cell [...] (Auto) 68.5, Lymph % (Auto) 18.6 L, Ceiba % (Auto) 8.0, Eos % (Auto) 4.5, [...] Signature (if applicable): CC: ~ Signed [facility] Work Phone: 1(172) 317-841906-21-2025 Progress note Author Marciano Guerin [facility] Note Date/Time August 21, 2024 2:19 pm [facility] Medical Records Department [address] [place] [address] Progress Note - Hospitalist 08/21/24 1411 MR#: [id number] Acct: [id number] Name: NANDO OCHOA Rep #:[id number] : 1960 63 From: Marciano Saeed PCP: Dr. Ashley Dickey MD Status:ADM IN Location: [place] [address] Reason for Visit Reason for Visit: Diagnoses [...] PLAN: Plan 63-year-old gentleman was admitted from [facility] for evaluation of altered mental status, [...] SINGLE VIEW OF THE CHEST. Reading Location: [id number] Abdomen/Pelvis CT 08/19/24 00:30 IMPRESSION: Moderate osteopenia. [...] deviation. Minimal pericardial effusion. Reading Location: RAD-[facility]AMSUDDIN[facility] Venous Doppler Study 08/19/24 02:35 Interpretation Summary [...] IMPRESSION: Intertrochanteric fracture, nondisplaced, suspected Reading Location: [facility] Echocardiogram 08/19/24 08:42 Interpretation Summary The estimated [...] active complex medical conditions), discussion with the data management consultant, pharmacist regarding diffuse fecalith in colon and possible stercoral colitis, review of labs and imaging is 35 minutes. Visit Charges Inpatient E&M: 53672 Subs Hosp L3 08/21/24 6169 <Electronically signed by Marciano Guerin MD> Cosigner Signature (if applicable): CC: ~ Signed [facility] Work Phone: 1(729) 553-621406-21-2025 Consult note Author Maribel Hood [facility] Note Date/Time August 21, 2024 2:11 pm [facility] Medical Records Department [address] [place] [address] Pharmacokinetic/Renal -Consult 08/21/24 1233 MR#: [id number] Acct: [id number] Name: NANDO COHOA Rep #:[id number] : 1960 63 From: Maribel Hood PCP: Dr. Ashley Dickey MD Status:ADM IN Y Location: [place] [address] Consult Antibiotic Management Pharmacy has been consulted [...] monitor and adjust dosing as required. 08/21/24 1234 <Electronically signed by Maribel Hood> Date _ Maribel Hood 08/21/24 1411 <Electronically signed by Marciano Guerin MD> Cosigner Signature (if applicable): Date Marciano Guerin MD CC: ~ Signed [facility] Work Phone: 1(740) 397-739306-20-2025 Consult note Author Elizabeth Lee [facility] Note Date/Time August 20, 2024 3:48 pm [facility] Medical Records Department [address] [place] [address] Anesthesia Postop Eval II 08/20/24 1548 MR#: [id number] Acct: [id number] Name: NANDO OCHOA Rep #:[id number] : 1960 63 From: Elizabeth Lee CRNA PCP: Dr. Ashley Dickey MD Status:ADM IN Y Race: C Location: [place] [address] 1-1 Anesthesia Postop Eval I Sum Postop Eval Completion status Anesthesia document: Postop Eval 1 completed: Yes Anesthesia Postop Eval I Summary Anesthesia Postop Eval I Summary: Anesthesia Postop Eval I: Assessment Summary 3 Airway patent Yes 08/20/24 13:49 CLINICAL RESEARCH ADMINISTRATOR.JBOR Spontaneous unlabored Yes 08/20/24 13:49 CLINICAL RESEARCH ADMINISTRATOR.JBOR respirations Mental status Awake,Calm 08/20/24 13:49 CLINICAL RESEARCH ADMINISTRATOR.JBOR nausea No 08/20/24 13:49 CLINICAL RESEARCH ADMINISTRATOR.JBOR Vomiting No 08/20/24 13:49 CLINICAL RESEARCH ADMINISTRATOR.JBOR Anesthesia Postop Eval I: Fluid Summary Crystalloid volume administer 750 08/20/24 13:49 CLINICAL RESEARCH ADMINISTRATOR.JBOR (ml) Colloids volume administered ( ml) Blood Product volume administered (ml) Total IV fluid infused 750 08/20/24 13:49 CLINICAL RESEARCH ADMINISTRATOR.JBOR Anesthesia Postop Eval I: Summary Notes Anesthesia Complication No 08/20/24 13:49 CLINICAL RESEARCH ADMINISTRATOR.JBOR Anesthesia Complication Comment: Post-operative progress note Anesthesia: Postop Eval II Evaluation Mental status: Awake Pain Level: 3 nausea: No Vomiting: No 08/20/24 1548 <Electronically signed by Elizabeth dewey CRNA> Date _ Elizabeth Lee CRNA Cosigner Signature: Date CC: ~ Signed [facility] Work Phone: [phone]) [phone] Progress note Author Amauri [facility] Note Date/Time August 20, 2024 2:06 pm [facility] Medical Records Department [address] [place] [address] Progress Note - Orthopedic 08/20/24 1400 MR#: [id number] Acct: [id number] Name: NANDO OCHOA Rep #:[id number] : 1960 63 From: Amauri Hermosillo DO [...] (Auto) 81.2 H, Lymph % (Auto) 11.2 L,Ceiba % (Auto) 6.8, Eos % (Auto) 0.2, [...] Dickey Performed By: Naty Parmar RDCS, RVT Physical Exam Const no apparent distress [...] Signature (if applicable): cc: ~* Signed [facility] Work Phone: 1(805) 874-122806-20-2025 Consult note Author Vazquez Laureano [facility] Note Date/Time August 20, 2024 1:49 pm [facility] Medical Records Department [address] [place] [address] Anesthesia Postop Eval I 08/20/24 1346 MR#: [id number] Acct: [id number] Name: NANDO OCHOA Rep #:[id number] : 1960 63 From: Vazquez BENÍTEZ PCP: Dr. Ashley Dickey MD Status:ADM IN Y Race: C Location: ICU ICU02 -1 Anesthesia: Postop Eval I Current Vital Signs [...] 08/20/24 1349 <Electronically signed by Vazquez Laureano CLINICAL RESEARCH ADMINISTRATOR> Date _ Vazquez Burt Signature: Date CC: ~ Signed [facility] Work Phone: [phone]) [phone] Procedure [facility] 08-20-2024 Consult note Author Mt Marroquin [facility] Note Date/Time August 20, 2024 11:4 4am [facility] Medical Records Department [address] [place] [address] Pre-Anesthesia Evaluation 08/20/24 1054 MR#: [id number] Acct: [id number] Name: NANDO OCHOA Rep #:[id number] : 1960 63 From: Mt Marroquin MD PCP: Dr. Ashley Dickey MD Status:ADM IN Y Race: C Location: ICU ICU02 -1 ASA Classification* ASA Classification ASA Classification: 3 [...] fracture fixation. Anesthesia History Anesthesia History - loan representative: Anesthesia History - loan representative Hx Hospitalization Any Problems With Anesthesia Cholinesterase [...] Yes NPO since: 00:00 PONV PONV - loan representative: PONV - loan representative Female HX of Motion Sickness HX of N/V After Surgery Non-Smoker Duration of Surgery greater than 60 minutes Number of Risk Factors PONV Score Height & Weight Height & Weight: Anesthesia: Height & Weight Height 5 ft 10 in 08/19/24 11:09 Weight: 68.5 kg 08/20/24 06:00 Body Mass Index (BMI) 21.6 08/20/24 06:00 Respiratory Assessment Respiratory Assessment - loan representative: Respiratory Tract Infection Hx - loan representative Hx Respiratory Tract Infection Any additional information?: Yes Hx Respiratory Tract Infection: No STOP Sleep Apnea STOP Sleep Apnea - loan representative: STOP Sleep Apnea - loan representative Hx Hypertension Yes 08/19/24 02:16 Hx Sleep [...] Tobacco Use History Tobacco Use History - loan representative: Tobacco Use History - loan representative Tobacco Use Smoking Status Current every day smoker 08/19/24 02:16 Hx Tobacco Use No 08/19/24 02:16 Years Smoking Packs Smoked per Day Smoking Cessation Date was within the last 15 years Hx Smoking Cessation Date Hx Smoking Cessation Counseling Hematologic Medial History Hematologic Hx - loan representative: Hematologic Medical Hx - net software architect Hx of Blood Transfusion Hx of Transfusion in last 3 Months Date of Last Transfusion (if within last 3 months) Ever experience any problems with transfusion(s)? Specify any problems Hx of Preganancy in last 3 Months Nurse Filling Out Transfusion & Questions: Date: Time: Patient unable to answer at Yes 08/19/24 02:16 this time (ie. confused, unrespo /Reproduction History /Reproductive History - loan representative: /Reproductive Hx- loan representative Hx Now Gestational Age (in weeks): EDC: [...] 08/19/24 01:31 08/20/24 02:42 IV 15 mls/hr .[id number] PRN Administration Saline Flush Sodium Chloride 250 mls @ 15 mls/hr 08/19/24 01:31 IV .[id number] PRN Additional IVPB Infusion Vancomycin HCl 750 [...] 7 Mg Patch TD Not Given DAILY [facility] Ondansetron HCl 4 mg 08/19/24 01:30 08/19/24 01:47 Ondansetron 4 Mg/2 Ml Vial IV 4 mg Q4H PRN PRN Administration NAUSEA/VOMITING Polyethylene Glycol 17 gm 08/20/24 10:00 08/20/24 10:12 Polyethylene Glycol 3350 17 Gm Packet PO Not Given DAILY [facility] Senna/Docusate Sodium 2 tablet 08/19/24 11:35 08/20/24 10:12 Senna/Docusate Sodium 1 Tablet PO Not Given BID [facility] Sodium Chloride 10 - 40 ml 08/19/24 01:31 0.9% Saline Lock 10 Ml Syringe IV UD PRN SALINE FLUSH Vancomycin Protocol 1 lab 08/20/24 12:30 Vancomycin Trough/Random Due 08/20/24 14:30 DAILY [facility] PFSH Medical History History of schizophrenia Bradycardia Asthma [...] 2.5 mg/3 mL 2.5 mg inhalation Q6H NM N PRN Sob 05/26/17 Unknown History (0.083 %) solution for nebulization &/Or Wheezing aluminum-mag hydroxide-simethicone 30 ml PO Q4H PRN NM N Indigestion 05/26/17 U nknown History 400 [...] 19:37 Social History household members: none housing: snf Smoking Status: Current every day smoker tobacco type: cigarettes alcohol intake: never substance use type: does not use Review of Systems (Anesthesia) ROS Narrative System reviewed and no additional complaints, except as documented. 08/20/24 1144 <Electronically signed by Mt childress MD> Date _ Mt Burt Signature: Date CC: ~ Signed [facility] Work Phone: 1(960) 306-639606-20-2025 Progress note Author Marciano Guerin [facility] Note Date/Time August 20, 2024 9:21 am [facility] Medical Records Department [address] [place] [address] Progress Note - Hospitalist 08/20/2451 MR#: [id number] Acct: [id number] Name: NANDO OCHOA Rep #:[id number] : 1960 63 From: Marciano Saeed PCP: [...] 84.3 H, Lymph % (Auto) 9.2 L, Ceiba % (Auto) 5.9, Eos % (Auto) 0.2, [...] SINGLE VIEW OF THE CHEST. Reading Location: [id number] Abdomen/Pelvis CT 08/19/24 00:30 IMPRESSION: Moderate osteopenia. [...] deviation. Minimal pericardial effusion. Reading Location: RAD-CHAMSUDDIN1 Venous Doppler Study 08/19/24 02:35 Interpretation Summary [...] IMPRESSION: Intertrochanteric fracture, nondisplaced, suspected Reading Location: [facility] Echocardiogram 08/19/24 08:42 Interpretation Summary The estimated ejection fraction is 70 %. No evidence for diastolic dysfunction. Mild to moderate aortic stenosis. Ordering Physician: Marciano Guerin Referring Physician: ASHLEY DICKEY Performed By: Jacinda Cedeno RDCS Charges/Coding Visit Charges Inpatient E&M: 63036 Subs Hosp L3 08/20/24 0921 <Electronically signed by Marciano Guerin MD> Cosigner Signature (if applicable): CC: ~ Signed [facility] Work Phone: [phone]) 257-761106-20-2025 Progress note Author Lupillo Porras [facility] Note Date/Time August 20, 2024 8:22 am [facility] Medical Records Department [address] [place] [address] Progress Note - Cold Roll Packer Sheet Iron 08/20/2452 MR#: [id number] Acct: [id number] Name: NANDO OCHOA Rep #:[id number] : 1960 63 From: Lupillo Porras DO [...] medically stabilized. This note was generated with [employer] dictation software. It may contain incorrectwords, spelling, [...] 08/20/24 06:00 08/20/24 06:00 08/20/24 06:00 08/20/24 06:00 08/20/24 06:00 08/20/24 06:00 08/20/24 06:00 Oxygen Flow [...] 84.3 H, Lymph % (Auto) 9.2 L, Ceiba % (Auto) 5.9, Eos % (Auto) 0.2, [...] Physician: Ashley Dickey Performed By: Naty Parmar, RDCS, RVT Femur X-Ray 08/19/24 07:13 IMPRESSION: Intertrochanteric fracture, nondisplaced, suspected Reading Location: [facility] Echocardiogram 08/19/24 08:42 Interpretation Summary The estimated [...] flat affect Charges/Coding Visit Charges Inpatient E&M: 35454 Subs Hosp L2 08/20/24 0822 <Electronically signed by Lupillo Porras DO> Cosigner Signature (if applicable): CC: ~ Signed [facility] Work Phone: [phone]) 141-400206-19-2025 Consult note Author Lupillo [facility] Note Date/Time August 19, 2024 12:0 3pm [facility] Medical Records Department [address] [place] [address] Consultation - Cold Roll Packer Sheet Iron 08/19/24 0646 MR#: [id number] Acct: [id number] Name: NANDO OCHOA Rep #:[id number] : 1960 63 From: Lupillo Porras DO [...] medically stabilized. This note was generated with [employer] dictation software. It may contain incorrectwords, spelling, [...] with surgical correction of his fracture tomorrow. [facility] Medical History (Updated 08/19/24 @ 10:[address] Joes Olvera MD) History of schizophrenia Bradycardia Asthma [...] 2.5 mg/3 mL 2.5 mg inhalation Q6H NM N PRN Sob 05/26/17 Unknown History (0.083 %) solution for nebulization &/Or Wheezing aluminum-mag hydroxide-simethicone 30 ml PO Q4H PRN NM N Indigestion 05/26/17 Unknown History 400 mg-400 [...] 19:37 Social History household members: none housing: snf Smoking Status: Current every day smoker tobacco [...] (Auto) 80.5 H, Lymph % (Auto) 11.0 L,Ceiba % (Auto) 6.7, Eos % (Auto) 1.3, [...] Sl. Cloudy, Urine pH 6.0, Ur Specific [place] 1.015, Urine Protein 30 H, Urine Glucose [...] Amphetamines Screen Cancelled, U Benzodiazepines Scrn Cancelled, [place] Cancelled, Urine Cocaine Screen Cancelled, U Cannabinoids Screen Cancelled, Ethyl Alcohol < 10.1 08/19/24 01:20: Vitamin B12 620, Cortisol AM Sample 16.10, [place] 0.82 08/19/24 03:00: Urine Opiates Screen NEGATIVE, [...] SINGLE VIEW OF THE CHEST. Reading Location: [id number] Abdomen/Pelvis CT 08/19/24 00:30 IMPRESSION: Moderate osteopenia. [...] or deviation. Minimal pericardial effusion. [facility] Charges/Coding Visit Charges Inpatient E&M: 24044 Init Hosp L3 08/19/24 1203 <Electronically signed by Lupillo Porras DO> Cosigner Signature (if applicable): CC: Dr. Ashley Dickey MD~ Signed [facility] Work Phone: 1([phone]) 529-440706-19-2025 Discharge summary Author Jose Olvera [facility] Note Date/Time August 19, 2024 10:2 6am [facility] Medical Records Department [address] [place] [address] Emergency Department Summary 08/18/24 MR#: [id number] Acct: [id number] Name: NANDO OCHOA Rep #:[id number] : 1960 63 From: Jose Olvera MD [...] Prior similar symptoms: No Recent Illness/Hospitalization: No [facility] Medical History (Updated 08/19/24 @ 10:26 by [...] 2.5 mg/3 mL 2.5 mg inhalation Q6H NM N PRN Sob 05/26/17 Unknown History (0.083 %) solution for nebulization &/Or Wheezing aluminum-mag hydroxide-simethicone 30 ml PO Q4H PRN NM N Indigestion 05/26/17 Unknown History 400 mg-400 [...] 19:37 Social History household members: none housing: snf Smoking Status: Current every day smoker tobacco [...] 80.5 H Lymph % (Auto) 11.0 L Ceiba % (Auto) 6.7 Eos % (Auto) 1.3 [...] Sl. Cloudy Urine pH 6.0 Ur Specific [place] 1.015 Urine Protein 30 H Urine Glucose [...] Amphetamines Screen Cancelled U Benzodiazepines Scrn Cancelled [place] Cancelled Urine Cocaine Screen Cancelled U Cannabinoids [...] SINGLE VIEW OF THE CHEST. Reading Location: [place] [address] EKG Initial EKG: Attestation: I personally reviewed and interpreted this EKG as follows: Interpretation: Sinus Rhythm (Rate is 60. There is no ossific ST-T wave changes which is artifact. NM interval is 138 ms. QRS duration 92 ms. QT duration 0.4 ms. [place] is normal.) Management Discussion w/another healthcare provider: [...] intertrochanteric fracture of left femur Disposition Disposition: [facility], [facility] Discharge Date/Time: 08/19/24 01:23 What to do if you have Problems For any increased pain, shortness of breath, bleeding, nausea or vomiting, chestpain, or any unexpected problems, contact your Primary Care Provider. Call [facility] ([phone]) or report to the closest Emergency Room. Call 911 if necessary. 08/19/24 1026 <Electronically signed by Jose Olvera MD> Cosigner Signature (if applicable): CC: Dr. Ashley Dickey MD ~ Signed [facility] Work Phone: [phone]) 177-224906-19-2025 Progress note Author Marciano Guerin [facility] Note Date/Time August 19, 2024 9:02 am [facility] Medical Records Department [address] [place] [address] Progress Note - Hospitalist 08/19/24 08 MR#: [id number] Acct: [id number] Name: NANDO OCHOA Rep #:[id number] : 1960 63 From: Marciano Saeed PCP: [...] (Auto) 80.5 H, Lymph % (Auto) 11.0 L,Ceiba % (Auto) 6.7, Eos % (Auto) 1.3, [...] Sl. Cloudy, Urine pH 6.0, Ur Specific [place] 1.015, Urine Protein 30 H, Urine Glucose [...] Amphetamines Screen Cancelled, U Benzodiazepines Scrn Cancelled, [place] Cancelled, Urine Cocaine Screen Cancelled, U Cannabinoids Screen Cancelled, Ethyl Alcohol < 10.1 08/19/24 01:20: Vitamin B12 620, Cortisol AM Sample 16.10, [place] 0.82 08/19/24 03:00: Urine Opiates Screen NEGATIVE, [...] SINGLE VIEW OF THE CHEST. Reading Location: [id number] Abdomen/Pelvis CT 08/19/24 00:30 IMPRESSION: Moderate osteopenia. [...] nonobstructing stone measuring 5 mm. [facility] 08/19/24 00:30 IMPRESSION: No CT evidence of an acute brain abnormality. Reading Location: [place] [address] Chest CTA 08/19/24 00:30 IMPRESSION: No demonstrated pulmonary embolism or arterial dissection. Minimal left pleural effusion/thickening. Minimal passive atelectatic airspace disease of the left lower lobe. Paraseptal emphysema. Moderate coronary artery calcifications. Multinodular thyroid goiter without tracheal narrowing or deviation. Minimal pericardial effusion. Reading Location: [place] [address] Physical Exam Narrative Seen and examined Patient [...] IV daily. Charges/Coding Visit Charges Inpatient E&M: 13609 Subs Hosp L3 08/19/24 0900 <Electronically signed by Marciano Guerin MD> Cosigner Signature (if applicable): CC: ~ Signed ADDENDUM by Dr. Marciano Guerin MD on 08/19/24 at 0902 Addendum I called the patient's legal guardian, phone #[phone], Praveena Nahomy and left a voicemail to call back. Could not get history, clinical update or address theCODE STATUS 08/19/24 09<Electronically signed by Marciano Guerin MD> Cosigner Signature (if applicable): cc: ~* Signed [facility] Work Phone: [phone] Consult note Author [facility] Note Date/Time August 19, 2024 7:44 am [facility] Medical Records Department [address] [place] [address] Consultation 08/19/24 0741 MR#: [id number] Acct: [id number] Name: NANDO OCHOA Rep #:[id number] : 1960 63 From: Amauri Hermosillo DO [...] Obtained verbal consent from his guardian Praveena Roger to proceed with left femur cephalomedullary fixation [...] I was able toreach his guardian Praveena Roger for decision making. [facility] Medical History (Updated 08/19/24 @ 07:[address] Amauri Hermosillo, DO) History of schizophrenia Bradycardia Asthma GERD [...] 2.5 mg/3 mL 2.5 mg inhalation Q6H NM N PRN Sob 05/26/17 Unknown History (0.083 %) solution for nebulization &/Or Wheezing aluminum-mag hydroxide-simethicone 30 ml PO Q4H PRN NM N Indigestion 05/26/17 Unknown History 400 mg-400 [...] 19:37 Social History household members: none housing: snf Smoking Status: Current every day smoker tobacco [...] (Auto) 80.5 H, Lymph % (Auto) 11.0 L,Ceiba % (Auto) 6.7, Eos % (Auto) 1.3, [...] Sl. Cloudy, Urine pH 6.0, Ur Specific [place] 1.015, Urine Protein 30 H, Urine Glucose [...] Amphetamines Screen Cancelled, U Benzodiazepines Scrn Cancelled, [place] Cancelled, Urine Cocaine Screen Cancelled, U Cannabinoids Screen Cancelled, Ethyl Alcohol < 10.1 08/19/24 01:20: Vitamin B12 620, Cortisol AM Sample 16.10, [place] 0.82 08/19/24 03:00: Urine Opiates Screen NEGATIVE, [...] SINGLE VIEW OF THE CHEST. Reading Location: [id number] Abdomen/Pelvis CT 08/19/24 00:30 IMPRESSION: Moderate osteopenia. [...] of an acute brain abnormality. Reading Location: [facility] Chest CTA 08/19/24 00:30 IMPRESSION: No demonstrated pulmonary embolism or arterial dissection. Minimal left pleural effusion/thickening. Minimal passive atelectatic airspace disease of the left lower lobe. Paraseptal emphysema. Moderate coronary artery calcifications. Multinodular thyroid goiter without tracheal narrowing or deviation. Minimal pericardial effusion. Reading Location: [place] [address] 08/19/24 0744 <Electronically signed by Amauri Hermosillo DO> Cosigner Signature (if applicable): CC: Dr. Ashley Dickey MD~ Signed [facility] Work Phone: 1(460) [phone] History and physical note Author Robert Andrea [facility] Note Date/Time August 19, 2024 6:55 am [facility] Medical Records Department [address] [place] [place] [address] H&P Exam - Hospitalist 08/18/24 2322 MR#: [id number] Acct: [id number] Name: NANDO OCHOA Rep #:[id number] : 1960 63 From: Robert Gilliland DO PCP: Dr. Ashley Dickey MD Status:ADM IN Location: ICU ICU02-1 [facility] - General General Date of Admission: 08/19/24 [...] by toxic encephalopathy who presents to [facility] ER with staff at his facility [...] is expected to extend beyond 2 midnights. [facility] Medical History (Updated 08/19/24 @ 04:[address] Robert Huizar, DO) History of schizophrenia Bradycardia Asthma GERD [...] 2.5 mg/3 mL 2.5 mg inhalation Q6H NM N PRN Sob 05/26/17 Unknown History (0.083 %) solution for nebulization &/Or Wheezing aluminum-mag hydroxide-simethicone 30 ml PO Q4H PRN NM N Indigestion 05/26/17 Unknown History 400 mg-400 [...] 19:37 Social History household members: none housing: snf Smoking Status: Current every day smoker tobacco [...] (Auto) 80.5 H, Lymph % (Auto) 11.0 L,Ceiba % (Auto) 6.7, Eos % (Auto) 1.3, [...] Sl. Cloudy, Urine pH 6.0, Ur Specific [place] 1.015, Urine Protein 30 H, Urine Glucose [...] SINGLE VIEW OF THE CHEST. Reading Location: [id number] [facility] Imaging Services [address] [place] [address] CTA Chest W/WO Contrast MR#: [id number] Acct: [id number] Name: NANDO OCHOA Rep #: [id number] : 1960 63 From: Luis Enrique Coleman MD PCP: Dr. Ashley Dickey MD Status: ADM IN Study: CTA Chest W/WO Contrast Date of Exam: 08/19/24 Exam# [id number] Ordering Dr: Jose Olvera MD PROCEDURE: CTA [...] or deviation. Minimal pericardial effusion. Reading Location: RAD-R[facility]ERSULYNDAIN1 CC: Dr. Ashley Dickey MD; Dr. Jose Olvera MD ~ Artificial Inseminator: Signed ----- [facility] Imaging [address] [address] Brain/Head without Contrast MR#: [id number] Acct: [id number] Name: NANDO OCHOA Rep #: [id number] : 1960 M 63 From: Luis Enrique Coleman MD PCP: Dr. Ashley Dickey MD Status: ADM IN Study: Brain/Head without Contrast Date of Exam: 08/19/24 Exam# [id number] Ordering Dr: Robert Huizar DO PROCEDURE: BRAIN/HEAD [...] an acute brain abnormality. Reading Location: RAD-CHAMSUDDIN1 CC: Dr. oRbert Huizar DO; Dr. Ashley Dickey MD ~ Artificial Inseminator: Signed ----- ---- [facility] Imaging Services [address] [place], [place] [address] Abdomen/Pelvis W IV Cont ONLY MR#: [id number] Acct: [id number] Name: NANDO OCHOA Rep #: [id number] : 1960 M 63 From: Luis Enrique Coleman MD PCP: Dr. Ashley Dickey MD Status: ADM IN Study: Abdomen/Pelvis W IV Cont ONLY Date of Exam: 08/19/24 Exam# [id number] Ordering Dr: Jose Olvera MD PROCEDURE: ABDOMEN/PELVIS [...] nonobstructing stone measuring 5 mm. Reading [facility] CC: Dr. Ashley Dickey MD; Dr. Jose Olvera MD ~ Artificial Inseminator: Signed Assessment & Plan Assessment/Plan (1) Sepsis: [...] MAP greater than 65 mmHg. Give acetaminophen NM prn for pain or fever. Give ondansetron [...] #2 - Check UDS, lithium level andminimize AS400 CONSULTANT-active medications in an effort to allow sensorium [...] Vasopressors started Charges/Coding Visit Charges Inpatient E&M: 94922 Init Hosp L3 08/19/24 0678 <Electronically signed by Robert Huizar DO> Cosigner Signature (if applicable): CC: Dr. Robert Huizar, DO; Dr. Ashley Dickey MD~ Signed [facility] Work Phone: 1(645) 586-315706-19-2025 Radiology Diagnostic study [facility]06-19-2025 [facility]06-19-2025 Consult note Author Stan Mora [facility] Note Date/Time August 19, 2024 2:33 am [facility] Medical Records Department [address] [place] [address] Pharmacokinetic/Renal -Consult 08/19/24 0218 MR#: [id number] Acct: [id number] Name: NANDO OCHOA Rep #:[id number] : 1960 63 From: Stan Mora PCP: [...] Robert Huizar DO CC: ~ Signed [facility] Work Phone: 1(670) 927-965206-19-2025 Radiology Diagnostic study [facility]06-19-2025 Radiology Diagnostic study [facility]06-19-2025 Radiology Diagnostic study [facility] 08-19-2024 Evaluation note* Diagnosis Onset Date [...] a cute August 19, 2024 12:04am [facility] Work Phone: 1(146) [phone] Evaluation note* Diagnosis Onset Date Resolution Status [...] intestine inactive August 19, 2024 12:04am [facility] Work Phone: 1([phone]) [phone] Evaluation note* Diagnosis Onset Date Resolution Status [...] large intestine inactive August 19, 2024 12:04am Closed intertrochanteric fra cture of left femur acute September 08, 2024 3 :08pm [facility] Work Phone: 1([phone]) 282-569006-18-2025 Radiology Diagnostic study note [facility] Imaging Services [address] [place] [address] Chest 1 View (Portable) MR#: [id number] Acct: [id number] Name: NANDO OCHOA Rep #: [id number] : 1960 M 63 From: Wong Sullivan MD PCP: Dr. Ashley Dickey MD Status: REG ER Study:Chest 1 View (Portable) Date of Exam: 08/18/24 Exam# [id number] Ordering Dr: Hany Olvera MD PROCEDURE: CHEST 1 VIEW (PORTABLE) 08/18/2024 REASON FOR EXAM: BIBASILAR RALES TECHNIQUE: Frontal view of the chest. COMPARISON: 05/12/2023. FINDINGS: The cardiac and mediastinal contours are normal. The lungs are clear. RAD/Chest 1 View (Portable) IMPRESSION: NEGATIVE SINGLE VIEW OF THE CHEST. Reading Location: [id number] CC: Dr. Ashley Dickey MD; Dr. Jose Olvera MD ~ Artificial Inseminator: Signed [facility]03-12-2025 History of Present illness Narrative* Patricia Rawls MA - 05/12/2024 2:00 PM EDT Patient ID: [...] WOULD OBSERVE ELEVATED PVR documented in this [facility] Work Phone: 1(986) 970-696711-07-2024 History of Present illness Narrative* Narinder Christensen [...] Assess PVR at cysto documented in this [facility] Work Phone: 1(258) 615-603004-17-2024 History of Present illness Narrative* Narinder Christensen [...] 1 year with PSA documented in this [facility] Work Phone: 1(444) 121-628203-13-2024 Consult note Author Scott Blandon [facility] May 14, 2023 1:52pm Note Date/Time May 14, 2023 9:1 7am [facility] Medical Records Department [address] [place] [address] Consultation - Cold Roll Packer Sheet Iron 05/14/23 0914 MR#: [id number] Acct: [id number] Name: NANDO OCHOA Rep #:[id number] : 1960 62 From: Scott Blandon MD PCP: Dr. Ashley Dickey MD Status:ADM IN Location: [place] [address]-1 Assessment & Plan Assessment/Plan (1) Acute hypoxic [...] history listed below, who presented to [facility] on 05/10/2023 secondary to hypoxia and [...] Unable to obtain a review of systems [facility] Medical History Adrenal insufficiency Anxiety and [...] 19:37 Social History household members: none housing: snf Smoking Status: Current every day smoker tobacco [...] Neut % (Auto) 68.7, Lymph % (Auto) 25.7,Ceiba % (Auto) 5.3, Eos % (Auto) 0.0, [...] basilar atelectasis/infiltrate. Charges/Coding Visit Charges Inpatient E&M: 08948 Init Hosp L3 05/14/23 7302 <Electronically signed by Scott Blandon MD> Cosigner Signature (if applicable): CC: Dr. Jonnathan Campuzano MD; Dr. Roxanne More MD; Dr. Scott Blandon MD; Dr. Robert Barr MD; Dr. Lupillo Porras DO; Dr. Kt Garcia MD; Dr. Jose Johnson MD; Dr. Sanjuana Wasserman MD; Dr. Tomer Hawkins MD; Dr. Beltran Dubois MD; Dr. jJ Lutz MD; Dr. Ashley Dickey MD; Dr. Cb Amor MD; Dr. Yann Ji MD; Dr. Antonia Parsons MD~ Signed [facility] Work Phone: 1(324) 332-869103-12-2024 Progress note Author Kirsty Rodarte [facility] May 13, 2023 5:28pm Note Date/Time May 13, 2023 5:2 9pm [facility] Medical Records Department [address] [place] [address] Progress Note - Hospitalist 05/13/23 1721 MR#: [id number] Acct: [id number] Name: NANDO OCHOA Rep #:[id number] : 1960 62 From: Kirsty Rodarte DO PCP: Dr. Ashley Dickey MD Status:ADM IN Location: [id number] Reason for Visit Reason for Visit: Diagnoses [...] (Auto) 73.1 H, Lymph % (Auto) 19.8, Ceiba % (Auto) 6.2, Eos % (Auto) 0.0, [...] interact with me at this time, nursing department chairperson at the bedside HEENT head/scalp atraumatic HEENT [...] -DNR CCA Charges/Coding Visit Charges Inpatient E&M: 62608 Subs Hosp L3 05/13/238 <Electronically signed by Kirsty Rodarte DO> Cosigner Signature (if applicable): CC: ~ Signed [facility] Work Phone: 1(400) 320-677603-12-2024 Procedure [facility] 05-12-2023 Progress note Author Kirsty Rodarte [facility] May 12, 2023 6:06pm Note Date/Time May 12, 2023 10: 23am [facility] Medical Records Department [address] [place] [address] Progress Note - Hospitalist 05/12/23 1009 MR#: [id number] Acct: [id number] Name: NANDO OCHOA Rep #:[id number] : 1960 62 From: Kirsty Rodarte DO PCP: Dr. Ashley Dickey MD Status:ADM IN Location: [id number] Reason for Visit Reason for Visit: Shortness of breath, hypoxia, fever Subjective Subjective Patient is a 62-year-old white male with a history of anoxic injury and dementiawho is a resident at a local [facility] who presented to the emergency department at [facility] on 05/10/2023 with acute onset of [...] 76.1 H, Lymph % (Auto) 15.2 L, Ceiba % (Auto) 7.7, Eos % (Auto) 0.0, [...] -DNR CCA Charges/Coding Visit Charges Inpatient E&M: 68634 Subs Hosp L2 05/12/23 1806 <Electronically signed by Kirsty Rodarte DO> Cosigner Signature (if applicable): CC: ~ Signed [facility] Work Phone: 1(133) 265-668303-10-2024 Progress note Author Robert Barr [facility] May 11, 2023 9:20am Note Date/Time May 11, 2023 9:1 9am [facility] Medical Records Department [address] [facility] [place] [address] Progress Note - Hospitalist 05/11/23915 MR#: [id number] Acct: [id number] Name: NANDO OCHOA Rep #:[id number] : 1960 62 From: Robert Barr MD PCP: Dr. Ashley Dickey MD Status:ADM IN Location: [place] [address] Reason for Visit Reason for Visit: Diagnoses [...] Neut % (Auto) 65.6, Lymph % (Auto) 25.6,Ceiba % (Auto) 8.0, Eos % (Auto) 0.0, [...] 40 Minutes Charges/Coding Visit Charges Inpatient E&M: 66434 Subs Hosp L2 05/11/23 0920 <Electronically signed by Robert Barr MD> Cosigner Signature (if applicable): CC: ~ Signed [facility] Work Phone: 1([phone]) 685-414903-09-2024 Progress note Author [facility] May 10, 2023 10:00am Note Date/Time May 10, 2023 7:23 am [facility] Medical Records Department [address] [place] [address] Progress Note - Hospitalist 05/10/23 0717 MR#: [id number] Acct: [id number] Name: NANDO OCHOA Rep #:[id number] : 1960 62 From: Robert Barr MD PCP: Dr. Ashley Dickey MD Status:ADM IN Location: [address] Reason for Visit Reason for Visit: [...] % (Auto) 65.0, Lymph % (Auto) 24.7, Ceiba % (Auto) 9.7, Eos % (Auto) 0.0, [...] (Auto) 77.4 H, Lymph % (Auto) 18.4L, Ceiba % (Auto) 3.7, Eos % (Auto) 0.0, [...] Signature (if applicable): CC: ~ Signed [facility] Work Phone: 1(531) 283-677203-09-2024 History and physical note Author Roxanne More [facility] May 10, 2023 4:00am Note Date/Time May 10, 2023 3:20 am [facility] Medical Records Department [address] [place] [address] H&P Exam - Hospitalist 05/10/23 0318 MR#: [id number] Acct: [id number] Name: NANDO OCHOA Rep #:[id number] : 1960 62 From: Roxanne More MD [...] GERD, HTN, HLD who presents to the [facility] ED on 05/10/23 withhistory of onset over the last 24 hours fever, dyspnea, tachypnea with hypoxia noted at [facility] with accessory muscle usage and temperature [...] as Solu-Medrol 125 mg IV x 1. [facility] Medical History (Updated 05/10/23 @ 03:56 [...] Roxanne More MD) household members: none housing: snf Smoking Status: Current every day smoker tobacco [...] % (Auto) 65.0, Lymph % (Auto) 24.7, Ceiba % (Auto) 9.7, Eos % (Auto) 0.0, [...] GERD, HTN, HLD who presents to the [facility] ED on 05/10/23 withhistory of onset over the last 24 hours fever, dyspnea, tachypnea with hypoxia noted at [facility] with accessory muscle usage and temperature [...] CKD stage III unclear subtype: Admission BUN/Cr /1.35, GFR 57, baseline renal function noted prior [...] CC status. Charges/Coding Visit Charges Inpatient E&M: 17497 Init Hosp L3 05/10/23 0400 <Electronically signed by Roxanne More MD> Cosigner Signature (if applicable): CC: Dr. Roxanne More MD; Dr. Ashley Dickey MD~ Signed [facility] Work Phone: 1(111) 498-952703-09-2024 History and physical note Author [facility] May 10, 2023 4:00am Note Date/Time May 10, 2023 3:20 am [facility] Medical Records Department [address] [place] [address] H&P Exam - Hospitalist 05/10/238 MR#: [id number] Acct: [id number] Name: NANDO OCHOA Rep #:[id number] : 1960 62 From: Roxanne More MD [...] GERD, HTN, HLD who presents to the [facility] ED on 05/10/23 withhistory of onset over the last 24 hours fever, dyspnea, tachypnea with hypoxia noted at [facility] with accessory muscle usage and temperature [...] as Solu-Medrol 125 mg IV x 1. [facility] Medical History (Updated 05/10/23 @ 03:56 [...] Roxanne More MD) household members: none housing: snf Smoking Status: Current every day smoker tobacco [...] % (Auto) 65.0, Lymph % (Auto) 24.7, Ceiba % (Auto) 9.7, Eos % (Auto) 0.0, [...] GERD, HTN, HLD who presents to the [facility] ED on 05/10/23 withhistory of onset over the last 24 hours fever, dyspnea, tachypnea with hypoxia noted at [facility] with accessory muscle usage and temperature [...] CKD stage III unclear subtype: Admission BUN/Cr /1.35, GFR 57, baseline renal function noted prior [...] CC status. Charges/Coding Visit Charges Inpatient E&M: 70733 Init Hosp L3 05/10/23 0400 <Electronically signed by Roxanne More MD> Cosigner Signature (if applicable): CC: Dr. Roxanne More MD; Dr. Ashley Dickey MD~ Signed [facility] Work Phone: 1(518) 548-527903-09-2024 Discharge summary Author Jose Olvera [facility] May 10, 2023 3:56am Note Date/Time May 10, 2023 2:10 am [facility] Medical Records Department [address] [place] [address] Emergency Department Summary 05/10/23 MR#: [id number] Acct: [id number] Name: NANDO OCHOA Rep #:[id number] : 1960 62 From: Jose Olvera MD [...] to determine) Relieved by: - (Nothing per snf staff) Associated Symptoms cough and rhinorrhea Chest [...] Roxanne More MD) household members: none housing: snf Smoking Status: Current every day smoker tobacco [...] % (Auto) 65.0 Lymph % (Auto) 24.7 Ceiba % (Auto) 9.7 Eos % (Auto) 0.0 [...] Provider] - Disposition Disposition: Acute Care Hospital [facility] What to do if you have Problems For any increased pain, shortness of breath, bleeding, nausea or vomiting, chestpain, or any unexpected problems, contact your Primary Care Provider. Call [facility] ([phone]) or report to the closest Emergency Room. Call 911 if necessary. 05/10/23 0356 <Electronically signed by Jose Olvera MD> Cosigner Signature (if applicable): CC: Dr. Ashley Dickey MD ~ Signed [facility] Work Phone: 1(322) 381-489403-09-2024 Discharge summary Author Jose [facility] May 10, 2023 3:56am Note Date/Time May 10, 2023 2:10 am [facility] Medical Records Department [address] [place] [address] Emergency Department Summary 05/10/23 MR#: [id number] Acct: [id number] Name: NANDO OCHOA Rep #:[id number] : 1960 62 From: Jose Olvera MD [...] to determine) Relieved by: - (Nothing per snf staff) Associated Symptoms cough and rhinorrhea Chest [...] Roxanne More MD) household members: none housing: snf Smoking Status: Current every day smoker tobacco [...] patient's orientation. He does move all extremities. [place] Coma Scale: document GCS findings Spontaneous Obeys [...] % (Auto) 65.0 Lymph % (Auto) 24.7 Ceiba % (Auto) 9.7 Eos % (Auto) 0.0 [...] Provider] - Disposition Disposition: Acute Care Hospital [facility] What to do if you have Problems For any increased pain, shortness of breath, bleeding, nausea or vomiting, chestpain, or any unexpected problems, contact your Primary Care Provider. Call [facility] ([phone]) or report to the closest Emergency Room. Call 911 if necessary. 05/10/23 0356 <Electronically signed by Jose Olvera MD> Cosigner Signature (if applicable): CC: Dr. Ashley Dickey MD ~ Signed [facility] Work Phone: 1(682) 918-534601-17-2024 History of Present illness Narrative* Narinder Christensen [...] with PSA [address] [facility] Work Phone: 1(809) 728-191501-03-2024 History of Present illness Narrative* Narinder Christensen [...] abcess F/U with PSA documented in this [facility] Work Phone: 1(168) 360-476603-23-2023 History of Present illness NarrativeChronic hx of [...] having testicular pain..pt states the pain is intermittent..[facility] Work Phone: 1(780) 382-536005-03-2021 History of Present illness NarrativePatient here labs..Most [...] for LUTs..Frequent UTI's last one in 05/2020. [facility] Work Phone: Discharge summary Author Kirsty Rodarte [facility] May 14, 2023 4:19pm Note Date/Time May 14, 2023 3:5 7pm [facility] Medical Records Department [address] [place] [address] [facility] MR#: [id number] Acct: [id number] Name: NANDO OCHOA Rep #:[id number] : 1960 62 From: Kirsty Rodarte DO PCP: Dr. Ashley Dickey MD Status:ADM IN Certification of patient admission REQUIRED AT TIME OF ADMISSION. I CERTIFY THAT [facility] SERVICES ARE REQUIRED TO BE GIVEN ON AN IN-PATIENT BASIS BECAUSE OF THE ABOVE NAMED PATIENT'S NEED FOR SHELTER CARE ON A CONTINUING BASIS FOR THE CONDITION(S) FOR WHICH HE/SHE WAS RECEIVING IN-PATIENT HOSPITAL SERVICES PRIOR TO HIS/HER TRANSFER TO THE [facility]. 05/14/23 1602<Electronically signed by Kirsty Rodarte [...] diet for now with consistency/texture as per [employer]; change to cardiac diet as needed as [...] Barr MD; Dr. Lupillo Porras DO; Dr. tK Garcia MD; Dr. Jose Johnson MD; Dr. Sanjuana Wasserman MD; Dr. Tomer Hawkins MD; Dr. Beltran Dubois MD; Dr. Jj Lutz MD; Dr. Ashley Dickey MD; Dr. Cb Amor MD; Dr. Yann Ji MD; Dr. Antonia Parsons MD ~* Signed [facility] Work Phone: Discharge summary Author Kirsty Rodarte [facility] May 14, 2023 4:28pm Note Date/Time May 14, 2023 4:0 7pm [facility] Medical Records Department [address] [place] [address] Discharge Summary 05/14/23 1605 MR#: [id number] Acct: [id number] Name: NANDO OCHOA Rep #:[id number] : 1960 62 From: Kirsty Rodarte DO PCP: Dr. Ashley Dickey MD Status:ADM IN Location: [place] [address] Providers Date of Admission: 05/10/23 Date of Discharge: 05/14/23 Primary Care Physician: Dr. Ashley Dickey MD Consultations 05/13/23 16:03 Consult: Cold Roll Packer Sheet Iron / Pulmonary Medicine Routine Consulting Provider: Intensivists/Pulmonary [...] dementiawho is a resident at a local [facility] who presented to the emergency department at [facility] on 05/10/2023 with acute onset of [...] Neut % (Auto) 68.7, Lymph % (Auto) 25.7,Ceiba % (Auto) 5.3, Eos % (Auto) 0.0, [...] NH/Intermed Care Charges/Coding Visit Charges Inpatient E&M: 63950 SNF Disch >30 Min 05/14/23 1628 <Electronically signed by Kirsty Rodarte DO> Cosigner Signature (if applicable): CC: Dr. Kirsty Rodarte DO; Dr. Ashley Dickey MD~ Signed [facility] Work Phone: Evaluation noteNo assessment information available [facility] Work Phone: Evaluation note* Diagnosis Scrotal abscess- Primary Other inflammatory disorder of male genital organs Nocturia Urinary incontinence, unspecified type Urinary frequency documented [facility] Work Phone: Evaluation note* Diagnosis Scrotal abscess Other inflammatory disorder of male genital organs Urinary frequency Nocturia documented in this encounter [facility] Work Phone: Evaluation note* Diagnosis Onset Date Resolution Status Acute bronchospasm acute Acute hypoxic respiratory failure acute History of schizophrenia acu te Right lower lobe pulmonary infiltrate acute Type A influenza acute [facility] Work Phone: Evaluation note* Diagnosis Onset Date Resolution Status Acute bronchospasm acute Acute hypoxic respiratory failure acute Bradycardia acute History of schizophrenia acu te Right lower lobe pulmonary infiltrate acute Toxic metabolic encephalopathy acute Type A influenza acute [facility] Work Phone: Evaluation note* Diagnosis Scrotal abscess- Primary Other inflammatory disorder of male genital organs Urinary frequency Nocturia Urinary incontinence, unspecified type documented in this encounter [facility] Work Phone: Evaluation note* Diagnosis Gross hematuria Nocturia Urinary incontinence, unspecified type documented in this encounter [facility] Work Phone: Evaluation note* Diagnosis Urinary retention- Primary Unspecified retention of urine documented in this encounter [facility] Work Phone: Evaluation note* Diagnosis Onset [...] 12:04am Sepsis acute August 19 12:04am [facility] Work Phone: History of Present illness [...] 0.49 (08/22) Previous PSA was 0.8 (08/21) .[facility] Work Phone: Reason for referral (narrative)No reason for referral information availableWSumma Health Work Phone: Summary Purpose Family History Unknown [...] No May 26, 2017 8:51am Power of Sandwich Machine Operator Yes May 26 8:51am Advance Directive Response Recorded Date/ Time Name of Medical Power of Sandwich Machine Operator pt doesnt know May 10, 2023 5:08am Living Will Yes May 10, 2023 5:08am Power of Sandwich Machine Operator Yes May 09 5:08am Advance Directive Response Recorded Date/ Time Name of Medical Power of Sandwich Machine Operator pt doesnt know May 10, 2023 6:08am Living Will Yes May 10, 2023 6:08am Power of Sandwich Machine Operator Yes May 09 6:08am Advance Directive Response Recorded Date/ Time Do you have a Healthcare Power of Sandwich Machine Operator? Yes August 18, 2024 6:29pm Chief Complaint [...] room 5 September 08, 2024 3:57p m Chief Complaint Admit Date UTI, HYPOTENSION, AMS [...] room 5 September 08, 2024 3:57p m BMP,CBC September 09, 2024 10:2 5pm Reason for Visit Admit Date Acute cystitis [...] of large intestine August 19, 2024 12:04am Closed intertrochanteric fracture of lef t femur September 08, 2024 3:08pm Additional Source Comments (unrecognized sect ion and content) No Status Records FoundNo Status Records FoundNo Status Records FoundNo Status Records FoundNo Status Records FoundNo Status Records FoundNo Status Records Found INFORMATION SOURCE (unrecogn ized section and content) DATE CREATED AUTHOR 08/25/2017 [facility] DATE CREATED AUTHOR AUTHOR'S ORGANIZ ATION 10/30/2021 [facility] DATE CREATED AUTHOR AUTHOR'S ORGANIZ ATION 07/05/2022 [facility] DATE CREATED AUTHOR AUTHOR'S ORGANIZ ATION 07/05/2022 [employer] DATE CREATED AUTHOR AUTHOR'S ORGANIZ ATION 03/31/2024 [facility] DATE CREATED AUTHOR AUTHOR'S ORGANIZ ATION 05/15/2024 [facility] DATE CREATED AUTHOR AUTHOR'S ORGANIZ ATION 09/13/2024 [facility] Goals (unrecognized section and content) Goals [...] To Contact Urology Diagnoses Gross hematuria Procedures NM CYSTOURETHROSCOPY [facility] [address] [facility] [address] [place] [address] Phone: tel: fax: Narinder Christensen MD [address] [place] [address] Phone: tel: fax:[phone] Referral ID Status Reason Start Date Expiration Date V isits Requested Visits Authorized [id number] Authorized 04/06/2024 04/06/2025 1 1 Care Teams (unrecognized sec tion and content) Emergency Physician Relationship Specialty Start Date End Date Ashley Dickey MD [address] [employer] [address] [place] [address] PCP - General 03/03/99 Emergency Physician Relationship Specialty Start Date End Date Ashley Dickey MD [address] [employer] [address] [place] [address] PCP - General 03/03/99 Team Status: Active [...] Dr. Yann Ji MD Other Provider Active Emergency Physician Relationship Specialty Start Date End Date Ashley Dickey MD [address] [employer] [address] [place] [address] PCP - General 03/03/99 Emergency Physician Relationship Specialty Start Date End Date Ashley Dickey MD [address] [employer] [address] [place] [address] PCP - General 03/03/99 Emergency Physician Relationship Specialty Start Date End Date Ashley Dickey MD [address] [employer] [address] [place] [address] PCP - General 03/03/99 Team Status: Active [...] End: August 27, 2024 Dr. Robert Huizar , Other Provider Active Start: August 19, 2024 End: August 27, 2024 Dr. Amauri Hermosillo , Other Provider [...] 2024 End: August 27, 2024 Dr. Jj Lutz MD [...] t: August 19, 2024 Dr. Lupillo Porras , Attending Provider Active S tart: August 19, [...] art: August 19, 2024 Dr. Braulio Mitchell , Other Provider Active Start: August 19, 2024 Dr. Cb Amor MD Other Provider Active Star t: August 19, 2024 Dr. Yann Ji MD Other Provider Active Sta rt: August 19, 2024 Dr. Amauri Hermosillo , Other Provider [...] Active Start: August 20, 2024 Dr. Jose Jhonson MD Other Provider Active Start : August [...] rt: August 21, 2024 Dr. Robert Huizar , DO Admit Provider Active Start: August 21, 2024 Dr. Robert Huizar , Other Provider Active Start: August 21, [...] t: August 21, 2024 Dr. Winston Steel DO Other Provider [...] rt: August 22, 2024 Dr. Robert Huizar DO Admit Provider Active Start: August 22, [...] t: August 22, 2024 Dr. Lupillo Porras DO Other Provider Active Start : August 22, 2024 Dr. Robert Fitch MD Other Provider Active Sta rt: August 22, 2024 Dr. Edwin Espinal MD Other Provider [...] August 22, 2024 Dr. Winston Steel , DO Other Provider Active St art: August 22, 2024 Dr. Yazan Cortés MD Other Provider Active Start: August 22, 2024 Dr. Allen Dunham MD Other Provider Active St art: August 22, 2024 Dr. Braulio Mitchell , Other Provider Active Start: August 22, 2024 Dr. Cb Amor MD Other Provider Active Star t: August 22, 2024 Dr. Yann Ji MD Other Provider Active Sta rt: August 22, 2024 Dr. Amauri Hermosillo , Other Provider Active St art: August 22, 2024 Team Status: Active Member Role/Relationship Status Dates Dr. Ashley Dickey MD Primary Care Provider Active Start: August 23, 2024 Dr. Jose Olvera MD Emergency Provider Active Sta rt: August 23, 2024 Dr. Robert Huizar , DO Admit Provider Active Start: August 23, 2024 Dr. Robert Huizar , Other Provider Active Start: August 23, 2024 Dr. Amauri Hermosillo , Other Provider Active St art: August 23, 2024 Dr. Redd Laughlin , Attending Provider Active Start: August 23, [...] August 24, 2024 Dr. Winston Steel , DO Other [...] August 24, 2024 Dr. Winston Steel , DO Other [...] 25, 2024 Dr. Robert Huizar , DO Other Provider Active Start: August 25, 2024 Dr. Amauri Hermosillo , DO Other Provider Active St art: August 25, 2024 Dr. Redd Laughlin , Other Provider Active Start: August 25, 2024 Dr. Marciano Geurin MD Other Provider Active Sta rt: August [...] August 25, 2024 Dr. Winston Steel , Other Provider Active St art: August 25, 2024 Dr. Yazan Cortés MD Other Provider Active Start: August 25, 2024 Dr. Allen Dunham MD Other Provider Active St art: August 25, 2024 Dr. Braulio Mitchell DO Other Provider Active Start: August 25, [...] t: August 26, 2024 Dr. Winston Steel , Other Provider Active St art: August 26, 2024 Dr. Yazan Cortés MD Other Provider Active Start: August 26, 2024 Dr. Allen Dunham MD Other Provider Active St art: August 26, 2024 Dr. Braulio Mitchell , Other Provider Active Start: August 26, 2024 [...] rt: August 27, 2024 Dr. Robert Huizar DO Admit Provider Active Start: August 27, [...] Start : August 27, 2024 Dr. Sanjuana Wasserman MD [...] rt: August 23, 2024 Dr. Robert Huizar DO Admit Provider Active Start: August 23, 2024 Dr. Robert Huizar DO Other Provider Active Start: August 23, 2024 Dr. Amauri Hermosillo DO Other Provider Active St art: August 23, 2024 Dr. Redd Laughlin DO Other Provider Active Start: August 23, [...] August 23, 2024 Dr. Winston Steel , Other Provider Active St art: August 23, [...] August 25, 2024 Dr. Redd Laughlin , Attending Provider Active Start: August 25, 2024 Dr. Redd Laughlin , DO Other [...] t: August 25, 2024 Dr. Winston Steel DO Other Provider Active St art: August 25, 2024 Dr. Yazan Cortés MD Other Provider Active Start: August 25, 2024 Dr. Allen Dunham MD Other Provider Active St art: August 25, 2024 Dr. Braulio Mitchell DO Other Provider Active Start: August 25, [...] rt: August 26, 2024 Dr. Robert Huizar DO Admit Provider Active Start: August 26, 2024 Dr. Robert Huizar DO Other Provider Active Start: August 26, 2024 Dr. Amauri Hermosillo , DO Other Provider Active St art: August 26, 2024 Dr. Redd Laughlin , Other Provider Active Start: August 26, 2024 [...] t: August 26, 2024 Dr. Winston Steel , Other Provider Active St art: August 26, 2024 Dr. Yazan Cortés MD Other Provider Active Start: August 26, 2024 Dr. Allen Dunham MD Other Provider Active St art: August 26, 2024 Dr. Braulio Mitchell , Other Provider Active Start: August 26, 2024 [...] 2024 End: September 08, 2024 Team Status: Active Member Role/Relationship Status Dates Dr. Ashley Dickey MD Primary Care Provider Active Start: August 24, 2024 Dr. Jose Olvera MD Emergency Provider Active Sta rt: August 24, 2024 Dr. Robert Huizar , DO Admit Provider Active Start: August 24, 2024 Dr. Robert Huizar , DO Other Provider Active Start: August 24, 2024 Dr. Amauri Hermosillo , DO Other Provider Active St art: August 24, 2024 Dr. Redd Laughlin , Referring Provider Active Start: August 24, 2024 Dr. Redd Laughlin , DO Other [...] Sta rt: August 24, 2024 Dr. Dominic Hmailton MD Other Provider Active Star t: August [...] rt: August 24, 2024 Dr. Hugo Pacheco DO Attending Provider Active Start: August 24, 2024 Team Status: Inactive Member Role/Relationship Status Dates Dr. Ashley Dickey MD Primary Care Provider Active Start: September 09, 2024 End: September 09, 2024 Dr. Ashley Dickey MD Attending Provider Active Start: September 09, 2024 End: September 09, 2024 Dr. Ashley Dickey MD Referring Provider Active Start: September 09, 2024 End: September 09, 2024 FOR RECORDS PERTAINING TO PATIENTS WHO [...] BE BASED ON THE PRIMARY CLINICAL RECORDS. [employer] provides no warranty or guarantee of the accuracy or completeness of information in this document.
[2024-09-16 23:16] LABS: Vancomycin, Trough Level 18.7 ug/mL (5.0-15.0)
== END | disposition home or self-care (01) ==
PROVIDERS: PCP Family Medicine; Visit Provider Family Medicine
DX: Z00.00 Encounter for general adult medical examination without abnormal findings (principal)
CPT/HCPCS: 80202